=== PATIENT | male | born 1980 | race Caucasian/White ===

== ENCOUNTER 2017-05-18 20:56 | Emergency (ER) | payer OTHER ==
[~2017-05-18] VITALS: Ht 170.2 cm; Wt 118.6 kg
[~2017-05-18 20:56] MED LIST: URC10 PO
[2017-05-18 21:00] VITALS: TEMP 36.7; Ht 170.2 cm; Wt 118.6 kg
[2017-05-18 21:30] LABS: BASO % 0.4 %; BASO ABS # 0.02 K/uL (0-0.2); COMPLETE YES; HEMATOCRIT 45.8 % (42-52); IG% 0.4 %; LYMPH % 25.5 %; LYMPH ABS # 1.41 K/uL (1.2-3.4); MEAN CELL VOLUME 85.6 fL (80-100); MEAN CORPUSCULAR HEMOGLOBIN 29.9 pg (25-34); MEAN CORPUSCULAR HGB CONC 34.9 g/dl (32-36); MEAN PLATELET VOLUME 12.1 fL (7.4-10.4); MONO % 5.8 %; NEUT % 65.9 %; PLATELET COUNT 158 K/uL (130-400); RED BLOOD COUNT 5.35 M/uL (4.7-6.1); WHITE BLOOD COUNT 5.53 K/uL (4.8-10.8)
[2017-05-18] MEDS ORDERED: SODIUM CHLORIDE 0.9% 1000ML 1,000 ML IV STA ×2 (21:35)
[2017-05-18 21:59] LABS: CALCIUM 8.6 mg/dl (8.5-10.1); CREATININE 0.89 mg/dl (0.60-1.40); MAGNESIUM 1.8 mg/dl (1.8-2.4); POTASSIUM 3.5 mmol/L (3.5-5.1)
[2017-05-18 22:10] LABS: ALB/GLOB RATIO 1.2 (0.9-2); PHOSPHORUS 2.6 mg/dl (2.5-4.9); THYROID STIMULATING HORMONE 2.57 uIu/ml (0.300-4.500)
--- NOTE | 2017-05-18 22:10 | DIAGNOSTIC IMAGING REPORT ---
HEAD WITHOUT CONTRAST (CT) CLINICAL HISTORY: 36 years-old Male with head injury, poss seizure. TECHNIQUE: Multiple axial CT images of the head were obtained without contrast. A dose lowering technique was utilized adhering to the principles of ALARA. CT DOSE: 638.56 mGycm COMPARISON: None. FINDINGS: No acute intracranial hemorrhage, midline shift, mass, large territorial ischemia or abnormal extra-axial collection. The calvarium is intact. The paranasal sinuses, mastoid air cells, and middle ear cavities are clear. IMPRESSION: No acute intracranial abnormality. The above report was generated using voice recognition software. It may contain grammatical, syntax or spelling errors. Electronically signed by: Calvin Keith M.D. 05/18/2017 10:09 PM Dictated Date/Time: 05/18/2017 10:06 PM
[2017-05-18 22:54] LABS: LYME DISEASE AB IGG NEG (NEG); LYME DISEASE AB IGM NEG (NEG)
[2017-05-18 23:26] LABS: BENZODIAZEPINE, URINE NEG (NEG); COCAINE,URINE NEG (NEG); PHENCYCLIDINE, URINE NEG (NEG)
[2017-05-18 23:53] VITALS: BP 130/76; PULSE 88; O2SAT 94
--- NOTE | 2017-05-19 04:57 | EMERGENCY ROOM VISIT NOTE ---
History First contact with patient: 21:23 Chief Complaint: SEIZURE Stated Complaint: SEIZURE Nursing Triage Summary: Pt's girlfriend reports pt "took a seizure" in her car, vomiting, head hit the dashboard. Pt does not remember the incident. Happened around 1900, Lasted about 1 minute. denies hx of seizures. pt reports feeling fatigued and bloated. denies pain History of Present Illness The patient is a 36 year old male who presents to the Emergency Room with complaints of feeling fatigued and weak with lack and food for the past week who tonight felt nauseous after eating dinner and stromboli while in the car while his girlfriend was driving and then felt lightheaded like he is going to pass out. The girlfriend pulled the car over and he vomited outside and states he had a brief episode of not being able to recall anything. He then felt quite weak and lightheaded for a few more minutes and then was feeling much better and just felt weak. No history of similar symptoms in the past. 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 Patient states he has not been sleeping well. He has not informed his family care doctor. He currently does not have when either. Patient denies chest pain , abdominal pain, fevers, recent illness, diarrhea, history of seizures, localized weakness. Patient states when he passed out in the car he hit his head. No neck pain. Review of Systems See HPI for pertinent positives & negatives. A total of 10 systems reviewed and were otherwise negative. Past Medical/Surgical History Medical Problems: (1) Chronic abdominal pain (2) Renal colic on left side Family History Diabetes mellitus Social History Smoking Status: Former Smoker Alcohol Use: none Drug Use: none Marital Status: in relationship Housing Status: lives with family Occupation Status: employed Current/Historical Medications No Active Prescriptions or Reported Meds Physical Exam Vital Signs Date Time Temp Pulse Resp B/P (MAP) Pulse Ox O2 Delivery O2 Flow Rate FiO2 05/18/17 23:53 88 21 130/76 94 05/18/17 21:31 90 05/18/17 21:00 36.7 92 18 135/83 95 Room Air Physical Exam VITALS: Vitals are noted on the nurse's note and reviewed by myself. Vital signs stable. GENERAL: White male answering questions appropriately, in no acute distress, nondiaphoretic, well-developed well-nourished. SKIN: The skin was without rashes, erythema, edema, or bruising. There is no tenting of the skin. Capillary reflex less than 2 seconds. HEAD: Normocephalic atraumatic. EARS: External auditory canals clear, tympanic membranes pearly pimentel without erythema or effusion bilaterally. EYES: Pupils equal round and reactive to light and accommodation. Conjunctivae without injection, sclerae without icterus. Extraocular movements intact. NOSE: Patent, turbinates without inflammation or discharge. MOUTH: Mucous membranes moist. Pharynx without erythema or exudate. Uvula midline. Airway patent. Tongue does not deviate. NECK: Supple without nuchal rigidity. No lymphadenopathy. No thyromegaly. Cervical spine is nontender. No JVD. HEART: Regular rate and rhythm without murmurs gallops or rubs. LUNGS: Clear to auscultation bilaterally without wheezes, rales or rhonchi. No dullness to percussion. No retractions or accessory muscle use. ABDOMEN: Positive bowel sounds x 4. Normal tympanic percussion. Soft, nontender, without masses or organomegaly. Gongora sign negative. No guarding or rebound tenderness. MUSCULOSKELETAL: No muscle atrophy, erythema, or edema noted. NEURO: Patient was alert and oriented to person place and time. Normal sensation to light and sharp touch. No focal neurological deficits. Cranial nerves II through XII grossly intact. No pronator drift. Cerebellar exam intact. Medical Decision & Procedures Laboratory Results 05/18/17 21:17 Red Blood Count 5.35, Mean Corpuscular Volume 85.6, Mean Corpuscular Hemoglobin 29.9, Mean Corpuscular Hemoglobin Concent 34.9, Mean Platelet Volume 12.1, Neutrophils (%) (Auto) 65.9, Lymphocytes (%) (Auto) 25.5, Monocytes (%) (Auto) 5.8, Eosinophils (%) (Auto) 2.0, Basophils (%) (Auto) 0.4, Neutrophils # (Auto) 3.65, Lymphocytes # (Auto) 1.41, Monocytes # (Auto) 0.32, Eosinophils # (Auto) 0.11, Basophils # (Auto) 0.02 05/18/17 21:17 Test 05/18/17 21:17 05/18/17 22:22 White Blood Count 5.53 K/uL (4.8-10.8) Red Blood Count 5.35 M/uL (4.7-6.1) Hemoglobin 16.0 g/dL (14.0-18.0) Hematocrit 45.8 % (42-52) Mean Corpuscular Volume 85.6 fL (80-100) Mean Corpuscular Hemoglobin 29.9 pg (25-34) Mean Corpuscular Hemoglobin Concent 34.9 g/dl (32-36) Platelet Count 158 K/uL (130-400) Mean Platelet Volume 12.1 fL (7.4-10.4) Neutrophils (%) (Auto) 65.9 % Lymphocytes (%) (Auto) 25.5 % Monocytes (%) (Auto) 5.8 % Eosinophils (%) (Auto) 2.0 % Basophils (%) (Auto) 0.4 % Neutrophils # (Auto) 3.65 K/uL (1.4-6.5) Lymphocytes # (Auto) 1.41 K/uL (1.2-3.4) Monocytes # (Auto) 0.32 K/uL (0.11-0.59) Eosinophils # (Auto) 0.11 K/uL (0-0.5) Basophils # (Auto) 0.02 K/uL (0-0.2) RDW Standard Deviation 41.0 fL (36.4-46.3) RDW Coefficient of Variation 13.2 % (11.5-14.5) Immature Granulocyte % (Auto) 0.4 % Immature Granulocyte # (Auto) 0.02 K/uL (0.00-0.02) Anion Gap 10.0 mmol/L (3-11) Est Creatinine Clear Calc Drug Dose 140.0 ml/min Estimated GFR () 126.6 Estimated GFR (Non- 109.2 BUN/Creatinine Ratio 13.0 (10-20) Calcium Level 8.6 mg/dl (8.5-10.1) Phosphorus Level 2.6 mg/dl (2.5-4.9) Magnesium Level 1.8 mg/dl (1.8-2.4) Total Bilirubin 0.4 mg/dl (0.2-1) Aspartate Amino Transf (AST/SGOT) 23 U/L (15-37) Alanine Aminotransferase (ALT/SGPT) 36 U/L (12-78) Alkaline Phosphatase 99 U/L (45-117) Total Protein 7.1 gm/dl (6.4-8.2) Albumin 3.8 gm/dl (3.4-5.0) Globulin 3.3 gm/dl (2.5-4.0) Albumin/Globulin Ratio 1.2 (0.9-2) Thyroid Stimulating Hormone (TSH) 2.570 uIu/ml (0.300-4.500) Lyme Disease IgG Antibody NEG (NEG) Lyme Disease IgM Antibody NEG (NEG) Urine Opiates Screen NEG (NEG) Urine Methadone, Qualitative NEG (NEG) Urine Barbiturates NEG (NEG) Urine Phencyclidine (PCP) Level NEG (NEG) Ur Amphetamine/Methamphetamine NEG (NEG) MDMA (Ecstasy) Screen NEG (NEG) Urine Benzodiazepines Screen NEG (NEG) Urine Cocaine Metabolite NEG (NEG) Urine Marijuana (THC) NEG (NEG) Medications Administered Medications (Trade) Dose Ordered Sig/Vijaya Route Start Time Stop Time Status Last Admin Dose Admin Sodium Chloride 1,000 ml @ 999 mls/hr Q1H1M STAT IV 05/18/17 21:35 05/18/17 22:35 DC 05/18/17 21:35 999 MLS/HR ED Course Prior records/ancillary studies reviewed. Triage Nursing notes reviewed. Additional history obtained from friends The patient's history was concerning for syncope. Differential diagnosis: Etiologies such as vasovagal event, infection, hypoglycemia, electrolyte abnormalities, cardiac sources, intracerebral event, toxicologic, neurologic, as well as others were entertained. Physical examination: Patient is alert, interactive and answering questions appropriately ER treatment provided: IV hydration with normal saline On reassessment the patient felt better. Diagnostics interpretation by me: ECG: Normal sinus, no acute ST-T wave changes, right bundle branch block, rate of 91. Impression right bundle branch block sinus rhythm interpreted by myself The labs revealed no worrisome leukocytosis or electrolyte abnormality Imaging studies: Head CT negative This appears to be consistent with near syncope with vomiting who is been fatigued for a few weeks now. 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 This could be his cause of his fatigued plus he might also have sleep apnea per the concerns of his girlfriend. Patient got nauseous and then nearly passed out and vomited. It does not appear that he had a seizure. He was not postictal. He was well- appearing. He was advised follow-up family care in a few days or here in the ER sooner for fevers, chest pains, difficulty breathing, weakness, worsening signs or symptoms or as needed. By the evaluation outlined above emergent etiologies such as infection, hypoglycemia, electrolyte abnormalities, cardiac sources, intracerebral event, toxicologic, neurologic,as well as others were deemed relatively unlikely. The pt informed about the findings as listed above. All questions were answered and pleased with the treatment. Return instructions were outlined and the patient was discharged in stable condition. Referral: The patient was referred back to their primary care physician for follow-up in 2 to 3 days for a recheck of the current condition. Case reviewed with my attending. Medical Decision As above Medication Reconcilliation Current Medication List: was personally reviewed by me Blood Pressure Screening Patient's blood pressure: Normal blood pressure Impression Primary Impression: Near syncope Additional Impression: Vomiting Departure Information Dispostion Home / Self-Care Condition GOOD Prescriptions No Active Prescriptions or Reported Meds Referrals No Doctor, Assigned (PCP) Patient Instructions [facility] Problem Qualifiers
== END 2017-05-18 23:54 | disposition home or self-care (01) ==
LOC: C.EDB 20:57
DX: R55 Syncope and collapse (principal); R11.10 Vomiting, unspecified; Z87.891 Personal history of nicotine dependence; Z83.3 Family history of diabetes mellitus

== ENCOUNTER 2021-06-23 16:14 | Observation (INO) ==
[2021-06-23] MEDS ORDERED: fentaNYL citrate 100 MCG/2 ML VIAL ONE ×3 (16:16→19:12)
[2021-06-23] MEDS ORDERED: KETAMINE HCL INJ 50 MG/ML 10 ML VIAL ONE (16:18)
[2021-06-23] MEDS ORDERED: PROPOFOL IV EMULSION 10 MG/ML 20 ML VIAL IV ONE ×2 (16:18→18:17)
[2021-06-23] MEDS ORDERED: SODIUM CHLORIDE 0.9% 500 ML IV STA (16:19)
[2021-06-23] MEDS ORDERED: DIPHTHERIA/TETANUS/PERTUSSIS 0.5 ML SYR/VIAL IM ONE (16:20)
[2021-06-23] MEDS ORDERED: ceFAZolin 3,000 MG in DEXTROSE 5% 50 ML IV STA (16:20)
--- NOTE | 2021-06-23 16:31 | XRay Report ---
XR ankle RT 2V CLINICAL HISTORY: Right ankle injury and pain. COMPARISON STUDY: None. FINDINGS: Bimalleolar right ankle fracture with associated lateral dislocation. The talus is rotated lateral to the distal fibula. There is diffuse soft tissue swelling. IMPRESSION: Bimalleolar right ankle fracture with an associated lateral dislocation at the tibiotala r joint. ACT 112: Negative or not required by law. Electronically signed by: Miguel Singleton M.D. 06/23/2021 4:30 PM
[2021-06-23] MEDS ORDERED: fentaNYL citrate 100 MCG/2 ML VIAL IV PRN (16:45)
--- NOTE | 2021-06-23 16:53 | Emergency Department Note ---
Impression & Plan Open trimalleolar fracture, Open fracture dislocation of ankle joint ED Provider Note NAME: DAVID BEAN AGE: 41 SEX: M : 1980 ARRIVES VIA: Ambulance INFORMANT: Patient, EMS personnel ED PROVIDER(S): Candido Palomo DO CHIEF COMPLAINT: Leg injury HPI: The patient is a 41-year-old male who presented to the emergency department by ambulance for an evaluation of leg injury. The patient was helping moving a refrigerator. Refrigerator slipped down some stairs and landed on his right leg. The refrigerator needed to be removed from his leg. Significant amount of spoiled food was still in the refrigerator and did get onto his leg. The patient called 911 and was brought to the emergency department via ALS. The patient received fentanyl prior to arrival. The patient has a history of diabetes as well as peripheral neuropathy. The patient denies having any nausea or vomiting. He denies having any chest pain. He did not strike his head or lose consciousness. The patient denies having any back pain. He is unsure of his tetanus immunization status. ROS: See above HPI for pertinent positives & negatives. A total of 10 systems reviewed and were otherwise negative. PAST MEDICAL HISTORY: See Below PAST SURGICAL HISTORY: See Below FAMILY HISTORY: See Below SOCIAL HISTORY: See Below HOME MEDICATIONS: See Below ALLERGIES: See Below VITALS: See Below PHYSICAL EXAMINATION: GENERAL: The patient is awake and alert. The patient is very anxious appearing appears uncomfortable. EYES: The conjunctivae are clear. The pupils are round and reactive. EARS, NOSE, MOUTH AND THROAT: The nose is without any evidence of any deformity. NECK: The neck is nontender and supple. RESPIRATORY: Normal respiratory effort is noted there is no evidence of wheezing rhonchi or rales CARDIOVASCULAR: Regular rate and rhythm noted there no murmurs rubs or gallops normal S1 normal S2. GASTROINTESTINAL: The abdomen is soft. Abdomen is nontender. BACK: No midline tenderness or or step-off noted range of motion in flexion extension as well as rotation no signs of muscle spasm noted MUSCULOSKELETAL/EXTREMITIES: There is significant deformity of the right ankle. There is tibial deviation of the foot. Pulses are symmetric in both feet. Capillary refill symmetric in both feet. SKIN: There is no obvious evidence of any rash. There is an open area on the lateral malleolus. Active bleeding was noted. NEUROLOGIC: Patient is awake alert and oriented x3. MEDICAL DECISION MAKING: The patient is a 41-year-old male who presented to the emergency department by ambulance after a significant fracture dislocation of his right ankle. The patient had a very large heavy object land onto his ankle. There appeared to be some degree of contamination of the area. We identified the patient is a good candidate for emergency sedation for cleaning as well as attempted reduction. The patient had x-rays which did reveal significant fracture dislocation. He was treated with pain medication but then also treated with sedation for right lower extremity reduction and splinting. The patient was reevaluated multiple times. Post reduction x-rays showed improved alignment but not anatomic. I discussed this case with the on-call orthopedic physician. They evaluated the patient in the emergency department and felt that he would be a better candidate for open internal reduction. The patient was treated with IV antibiotics as well as update of his tetanus immunization. The wound was cleaned out thoroughly using the pulse gun with normal saline. Triage Nursing notes reviewed. Prior medical records reviewed Vital Signs: reviewed and remarkable for elevated blood pressure. Differential diagnosis: Fracture, subluxation, dislocation, contusion, ligamentous injury, neurovascular, compartment syndrome, rhabdomyolysis, as well as other pathologies. ER treatment provided: See below Diagnostics interpreted by me: ECG: EKG was obtained in the emergency department. My interpretation is sinus tachycardia 101 bpm. There were no PVCs. Right bundle branch block pattern was noted. This was compared to a tracing from May 182016. The QRS duration has prolonged otherwise no significant changes were noted. Cardiac Monitoring: An order was placed for continuous cardiac monitoring. The monitor shows a rate of 102 bpm with sinus tachycardia rhythm. Laboratory studies: As stated above and show below. Imaging studies: See below Consultation(s): [id number]: I discussed this case with Dr. Dalton who is on for orthopedics. He will evaluate the x-rays and call me back. ED COURSE: Procedures: Procedural Sedation Indication right ankle open fracture dislocation. Total time: 17 minutes. Written consent was obtained after the risks and benefits were explained to the patient, including, but not limited to aspiration, allergic reaction, breathing difficulties, cardiac complications, vomiting, pain, event recall, bleeding, and/or infection. Pre-sedation examination and paperwork completed. The patient was on 100% oxygen via NRB prior to the procedure. Continous end tidal CO2 monitoring, pulse oximetry, and cardiac monitoring were utilized. Suction, airway equipment, medications, respiratory equipment, and appropriate personnel were prepared prior to the initiation of the procedure. A time out was taken. Sedation was achieved utilizing propofol and ketamine. Please see documentation for complete dosages. After I observed the patient had reached the appropriate level of sedation the main procedure was performed without complication. Sedation was discontinued and the monitoring continued. The patient recovered quickly from the effects of the medication without complication or adverse event. Reduction and splint placement to right lower extremity Indication open fracture dislocation of the right ankle The patient was consented for reduction of the right ankle. After the patient's sedation was adequate the right knee was brought into flexion. Traction was placed on the right ankle with some reduction noted of the open fracture disl ocation. The wound was cleaned using the normal saline pulse gun. A bulky dressing was placed as well as a posterior and sugar tong splint to the area. Capillary refill was brisk. The patient tolerated procedure well. Past Med/Surg History Medical History Alcohol abuse GERD (gastroesophageal reflux disease) HLD (hyperlipidemia) TG 0, TC 301 in 06/2019 HTN (hypertension) Overweight (BMI 25.0-29.9) T2DM (type 2 diabetes mellitus) A1c 13.6% in 06/2019 Vitamin D deficiency 8.9 in 06/2019 Surgical History History of heart surgery VSD- age 3 S/P knee surgery Family History Father Cardiac disorder Mother No problems noted. Aunt Cardiac disorder Denies family history of Ovarian cancer Prostate cancer Myocardial infarction Breast cancer Colorectal cancer Social History Smoking Status: Never smoker Age Started Using Tobacco: 16; Age Quit Using Tobacco: 26; packs per day: 0.5; Hx Alcohol Use: Yes Alcohol type: beer, wine and hard liquor Hx Substance Use: No Preferred Language: Mohawk Communication Ability: Effective Visual Impairment: No Limitations Hearing Ability: Normal marital status: Single Current Living Situation: Alone current occupational status: employed current occupation: [employer] Feels Safe at Home: Yes Dental Care, Regularly: Yes Physical Activity Frequency: 3-4 Times per Week Allergies Allergies Allergy/AdvReac Type Severity Reaction Status Date / Time Sulfa (Sulfonamide Allergy Intermediate ITCHY/HOT Verified 06/23/21 17:31 Antibiotics) morphine AdvReac Intermediate Nausea Verified 06/23/21 17:31 Home Meds Home Medications Medication Instructions Recorded Confirmed atorvastatin 40 mg tablet 40 mg PO DAILY 06/23/21 06/23/21 gabapentin 100 mg capsule 100 mg PO TID 06/23/21 06/23/21 glipizide 5 mg tablet, extended 5 mg PO DAILY 06/23/21 06/23/21 release 24 hr insulin detemir U-100 100 unit/mL 45 unit SUBCUT DAILY 06/23/21 06/23/21 (3 mL) subcutaneous pen (Levemir FlexTouch U-100 Insulin) lisinopril 20 mg tablet 20 mg PO DAILY 06/23/21 06/23/21 Results & Data (ED) Vital Signs Vital Signs - 24 hr 06/23/21 16:26 06/23/21 16:28 06/23/21 16:30 Temperature 37 C Temperature Source Oral Pulse Rate 55 L 113 H 112 H Pulse Rate [Left Finger] Respiratory Rate 18 16 11 L Respiratory Effort / Characteristics Respiratory Depth Normal Respiratory Pattern Blood Pressure 165/112 H Blood Pressure [Right Arm] 165/112 H 149/106 H Blood Pressure Mean 129 Blood Pressure Mean [Right Arm] Blood Pressure Position [Right Arm] Pulse Oximetry 97 96 96 Oxygen Delivery Method Room Air Nasal Cannula Non-rebreather Oxygen Flow Rate 4 15 Sepsis Recent Fever Within 48 Hours No Sepsis New/Unexplained Change in Mental Status No Sepsis Action Taken by Nursing No Action Required End Tidal CO2 (18-54mmHg) 30 33 06/23/21 16:35 06/23/21 16:40 06/23/21 16:45 Temperature Temperature Source Pulse Rate 106 H 103 H 100 H Pulse Rate [Left Finger] Respiratory Rate 12 13 15 Respiratory Effort / Characteristics Respiratory Depth Respiratory Pattern Blood Pressure Blood Pressure [Right Arm] 160/106 H 143/91 H 140/105 H Blood Pressure Mean Blood Pressure Mean [Right Arm] Blood Pressure Position [Right Arm] Pulse Oximetry 99 99 100 Oxygen Delivery Method Non-rebreather Non-rebreather Non-rebreather Oxygen Flow Rate 15 15 15 Sepsis Recent Fever Within 48 Hours Sepsis New/Unexplained Change in Mental Status Sepsis Action Taken by Nursing End Tidal CO2 (18-54mmHg) 31 28 21 06/23/21 16:50 06/23/21 17:14 06/23/21 18:26 Temperature 36.8 C Temperature Source Oral Pulse Rate 102 H Pulse Rate [Left Finger] 109 H Respiratory Rate 16 20 Respiratory Effort / Characteristics Non-Labored Respiratory Depth Normal Respiratory Pattern Regular Blood Pressure Blood Pressure [Right Arm] 156/119 H 144/100 H Blood Pressure Mean Blood Pressure Mean [Right Arm] 114 Blood Pressure Position [Right Arm] Lying Pulse Oximetry 100 96 Oxygen Delivery Method Non-rebreather Room Air Room Air Oxygen Flow Rate 7 Sepsis Recent Fever Within 48 Hours Sepsis New/Unexplained Change in Mental Status Sepsis Action Taken by Nursing End Tidal CO2 (18-54mmHg) 23 Home Medications Current Medication List: was personally reviewed by me Laboratory Data Attestation: I reviewed the patient's lab results. Result diagrams: 06/23/21 21:22 06/23/21 21:22 Lab Results 06/23/21 06/23/21 06/23/21 Range/Units 16:48 16:48 18:31 POC Glucose 224 H (70-99) mg/dl COVID-19 Eval Order Covid19 at [facility] SARS-CoV-2 (PCR) NEGATIVE (Negative) Administered Medications Aspirin (Aspirin 81 Mg Ectab) 81 mg PO BID IVAN Stop: 07/23/21 21:29 Last Admin: 06/23/21 21:54 Dose: 81 mg Documented by: [id number] Gabapentin (Gabapentin 100 Mg Cap) 100 mg PO TID IVAN Stop: 07/23/21 21:29 Last Admin: 06/23/21 21:54 Dose: 100 mg Documented by: [id number] Sodium Chloride (Nss 1000ml) 1,000 mls @ 100 mls/hr IV .Q10H IVAN Stop: 07/23/21 21:29 Last Admin: 06/23/21 21:53 Dose: 100 mls/hr Documented by: [id number] Insulin Aspart (Insulin Aspart 100 Units/Ml 3 Ml Pen) 0 units SC ACHS [facility]; Protocol Stop: 07/23/21 21:44 Last Admin: 06/23/21 22:07 Dose: 6 units Documented by: [id number] Cosigned by: [id number] Insulin Aspart (Insulin Aspart 100 Units/Ml 3 Ml Pen) 0 units SC TODAY@0000,0400 [facility]; Protocol Stop: 06/24/21 04:01 Last Admin: 06/24/21 00:11 Dose: 4 units Documented by: [id number] Cosigned by: [id number] Insulin Detemir (Insulin Detemir Flexpen/Flex Touch 100 Units/Ml 3ml) 45 units SC [facility]; Protocol Stop: 07/23/21 21:44 Last Admin: 06/23/21 22:02 Dose: 45 units Documented by: [id number] Cosigned by: [id number] Ketorolac Tromethamine (Ketorolac 30 Mg/Ml Vial) 30 mg IV Q6H [facility] Stop: 06/28/21 21:59 Last Admin: 06/23/21 21:54 Dose: 30 mg Documented by: [id number] Ondansetron HCl (Ondansetron Inj 2 Mg/Ml 2 Ml Vial) 4 mg IV Q6H PRN PRN Reason: Nausea/Vomiting Stop: 07/23/21 21:10 Last Admin: 06/23/21 22:01 Dose: 4 mg Documented by: [id number] Discontinued Medications Bupivacaine HCl (Bupivacaine 0.25% 30 Ml Vial) Confirm Administered Dose 30 ml .ROUTE .STK-MED ONE Stop: 06/23/21 18:37 Last Admin: 06/23/21 19:36 Dose: 30 ml Documented by: [id number] Cefazolin Sodium (Cefazolin 250 Mg/Ml 1 Gm Vial) Confirm Administered Dose 3,000 mg .ROUTE .STK-MED ONE Stop: 06/23/21 18:16 Last Admin: 06/23/21 19:10 Dose: 1,250 mg Documented by: [id number] Diphtheria/Pertussis/Tetanus Vacc (Diphtheria/Tetanus/Pertussis 0.5 Ml Syr/Vial) 0.5 ml IM .ONCE ONE Stop: 06/23/21 16:21 Last Admin: 06/23/21 17:02 Dose: 0.5 ml Documented by: [id number] Epinephrine HCl (Epinephrine Inj 1 Mg/Ml Amp) Confirm Administered Dose 1 mg .ROUTE .STK-MED ONE Stop: 06/23/21 18:37 Last Admin: 06/23/21 19:36 Dose: 0.15 mg Documented by: [id number] Fentanyl Citrate (Fentanyl Citrate 100 Mcg/2 Ml Vial) Confirm Administered Dose 100 mcg .ROUTE .STK-MED ONE Stop: 06/23/21 16:17 Last Admin: 06/23/21 16:17 Dose: 100 mcg Documented by: [id number] Fentanyl Citrate (Fentanyl Citrate 100 Mcg/2 Ml Vial) 50 mcg IV Q5M PRN PRN Reason: PACU Use Only-Pain Stop: 06/24/21 02:32 Last Admin: 06/23/21 20:23 Dose: 50 mcg Documented by: [id number] Admin: 06/23/21 20:18 Dose: 50 mcg Documented by: [id number] Admin: 06/23/21 20:13 Dose: 50 mcg Documented by: [id number] Admin: 06/23/21 20:08 Dose: 50 mcg Documented by: [id number] Sodium Chloride (Nss) 500 mls @ 999 mls/hr IV .Q31M STA Stop: 06/23/21 16:49 Last Infusion: 06/23/21 17:40 Dose: 0 mls/hr Documented by: [id number] Admin: 06/23/21 17:05 Dose: 999 mls/hr Documented by: [id number] Cefazolin Sodium 3,000 mg/ (Dextrose) 72.5 mls @ 145 mls/hr IV NOW STA Stop: 06/23/21 16:49 Last Infusion: 06/23/21 17:23 Dose: 0 mls/hr Documented by: [id number] Admin: 06/23/21 16:54 Dose: 145 mls/hr Documented by: [id number] Cefazolin Sodium (Ancef 3000mg) 72.5 mls @ 130 mls/hr IV ONCE ONE Stop: 06/23/21 20:57 Last Infusion: 06/23/21 22:23 Dose: 0 mls/hr Documented by: [id number] Admin: 06/23/21 19:01 Dose: 130 mls/hr Documented by: [id number] Ketamine HCl (Ketamine Hcl Inj 50 Mg/Ml 10 Ml Vial) Confirm Administered Dose 500 mg .ROUTE .STK-MED ONE Stop: 06/23/21 16:19 Last Increment: 06/23/21 17:09 Dose: 30 mg Documented by: [id number] Propofol (Propofol Iv Emulsion 10 Mg/Ml 20 Ml Vial) Confirm Administered Dose 400 mg IV .STK-MED ONE Stop: 06/23/21 16:19 Last Admin: 06/23/21 17:09 Dose: 100 mg Documented by: [id number] Cosigned by: [id number] Imaging Data Radiologist's Impression: Ankle X-Ray 06/23/21 00:00 FL ankle RT min 3V RTN CLINICAL HISTORY: EXTERNAL FIXATION RT ANKLE COMPARISON STUDY: Right ankle 06/23/2021. FLUOROSCOPY TIME: 42 seconds. FINDINGS: 7 fluoroscopic spot images of the right ankle demonstrate internal fixation of the right ankle fracture/dislocation. There is near-anatomic alignment status post reduction. External fixator screws appear intact. IMPRESSION: Status post external fixation of a right ankle fracture/dislocation with near-anatomic alignment. ACT 112: Negative or not required by law. Electronically signed by: Miguel Singleton M.D. 06/23/2021 7:58 PM Ankle X-Ray 06/23/21 16:19 XR ankle RT 2V CLINICAL HISTORY: Right ankle injury and pain. COMPARISON STUDY: None. FINDINGS: Bimalleolar right ankle fracture with associated lateral dislocation. The talus is rotated lateral to the distal fibula. There is diffuse soft tissue swelling. IMPRESSION: Bimalleolar right ankle fracture with an associated lateral dislocation at the tibiotalar joint. ACT 112: Negative or not required by law. Electronically signed by: Miguel Singleton M.D. 06/23/2021 4:30 PM Chest X-Ray 06/23/21 16:45 XR chest 1V portable HISTORY: fall COMPARISON: Chest 07/16/2011. FINDINGS: There are low lung volumes. There are poststernotomy changes. The heart is mildly enlarged. No pneumothorax. No pleural effusions. No focal lung consolidations to suggest pneumonia. No evidence for pulmonary edema. No acute fractures identified. IMPRESSION: No significant change compared to the prior study. No acute process. Stable cardiomegaly. ACT 112: Negative or not required by law. Electronically signed by: Miguel Singleton M.D. 06/23/2021 5:23 PM Tibia/Fibula X-Ray 06/23/21 16:45 RIGHT TIBIA AND FIBULA 2 VIEWS CLINICAL HISTORY: Postreduction examination. FINDINGS: AP and crosstable lateral views of the right tibia and fibula are correlated with ankle radiographs performed earlier the same day 06/23/2021. The skeletal structures are well mineralized. The examination is performed through a cast, obscuring fine bony detail. Again seen are bilateral malleoli are frac tures of the right ankle joint. There is also vertically oriented and nondisplaced fracture through the posterior tibial plafond. There is persistent lateral displacement of the medial malleolus by 2.5 cm. There is also lateral displacement of the lateral malleolus. There is lateral subluxation of the talus at the tibiotalar articulation by approximately 2.3 cm. The tibiotalar articulation appears maintained in the AP plane. There is valgus angulation of the talus. Overlying soft tissue edema is noted. Foci of soft tissue gas are present above the lateral malleolus suggesting open fracture. A cutaneous defect the lateral ankle likely resents soft tissues injury/laceration. The proximal tibia and fibula are intact. The knee joint is grossly maintained. There are dorsal and plantar heel spurs. IMPRESSION: 1. Trimalleolar fracture of the right ankle as above. Alignment is improved status post external fixation with persistent lateral offset and angulation of the talus at the tibiotalar joint. 2. Foci of soft tissue gas and soft tissue injury are noted of the lateral malleolus. Correlate clinically for evidence of an open fracture. Electronically signed by: Les Nguyễn M.D. 06/23/2021 5:25 PM Discharge Plan Visit Data Chief Complaint: Ankle Pain Stated Complaint: Compound Fracture ED Provider: Candido Palomo Discharge Problem: Open trimalleolar fracture, Open fracture dislocation of ankle joint Patient Disposition: Admitted As Inpatient Condition: Good Discharge Instructions Interventions: ED Discharge Assessment Last Done: 06/23/21 18:20 Discharge Problem: Open trimalleolar fracture Qualifiers: Encounter type: initial encounter Open fracture type: open type I or II Laterality: right Qualified Code(s): S82.851B - Displaced trimalleolar fracture of right lower leg, initial encounter for open fracture type I or II Open fracture dislocation of ankle joint Qualifiers: Encounter type: initial encounter Open fracture type: open type I or II Laterality: right Qualified Code(s): S82.891B - Other fracture of right lower leg, initial encounter for open fracture type I or II
--- NOTE | 2021-06-23 16:56 | Emergency Department Note ---
Pre Sedation Assessment Vital Signs Temp Pulse Pulse Resp BP BP Pulse Ox 06/23/21 18:26 36.8 C 109 H 20 144/100 H 96 06/23/21 16:50 102 H 16 156/119 H 100 06/23/21 16:45 100 H 15 140/105 H 100 06/23/21 16:40 103 H 13 143/91 H 99 06/23/21 16:35 106 H 12 160/106 H 99 06/23/21 16:30 112 H 11 L 149/106 H 96 06/23/21 16:28 113 H 16 165/112 H 96 06/23/21 16:26 37 C 55 L 18 165/112 H 97 Cardiovascular RRR, no murmur, no edema + regular rate + S1 normal and + S2 normal; no murmur no JVD + capillary refill normal; no edema Respiratory normal respiratory effort, lungs clear to auscultation + respiratory effort normal; no respiratory distress and no retractions + clear to auscultation bilaterally Pre-Sedation Airway Assessment Smoking Status: Never smoker Hx Sleep Apnea: No Hx Difficult Intubation: No Short, Thick Neck: No Thyromental Distance: > or= 3.5 Finger Breadths Oral Cavity: no Loose Teeth or no Dentures Mallampati Class: I ASA: ASA2E NPO Status Date of Last Intake of Fluids: 06/23/21 Time of Last Intake of Fluids: : Date of Last Intake of Solid Food: 06/23/21 Time of Last Intake of Solid Foods: :30 Procedure Planning Contraindications for Sedation: none Current Medications Reviewed: Yes Notes The planned sedation has been discussed with the patient. Informed Consent was obtained. I have identified the patient, determined the appropriateness of sedation and have assessed the patient immediately prior to the procedure. All medicine(s) and interventions are by my order. : Open trimalleolar fracture Qualifiers: Encounter type: initial encounter Open fracture type: open type I or II Laterality: right Qualified Code(s): S82.851B - Displaced trimalleolar fracture of right lower leg, initial encounter for open fracture type I or II Open fracture dislocation of ankle joint Qualifiers: Encounter type: initial encounter Open fracture type: open type I or II Laterality: right Qualified Code(s): S82.891B - Other fracture of right lower leg, initial encounter for open fracture type I or II
--- NOTE | 2021-06-23 16:57 | Emergency Department Note ---
Post Sedation Assessment Vital Signs Temp Pulse Pulse Resp BP BP Pulse Ox 06/23/21 18:26 36.8 C 109 H 20 144/100 H 96 06/23/21 16:50 102 H 16 156/119 H 100 06/23/21 16:45 100 H 15 140/105 H 100 06/23/21 16:40 103 H 13 143/91 H 99 06/23/21 16:35 106 H 12 160/106 H 99 06/23/21 16:30 112 H 11 L 149/106 H 96 06/23/21 16:28 113 H 16 165/112 H 96 06/23/21 16:26 37 C 55 L 18 165/112 H 97 Recovery Score Activity: Moves 4 extremities Respiration: Deep Breath/Cough Circulation: +/-20% PreAnes Value Consciousness: Fully Awake Oxygen Saturation: > 92% On Room Air Discharge Sedation Level of Care: Phase I Unexpected Event: None Post Sedation Plan On clinical assessment, the patient appears to have tolerated the sedation without complications. Patient is recovering as anticipated. Patient will continue to be monitored by nursing and may be discharged when sedation discharge criteria are met per below protocol. Upon Completions of procedure up to 15 minutes continue every 5 minute vital signs and the P.A.R. score; then discharge to a Phase I or Fast Track to Phase II per the following guidelines: * Discharge Patient to appropriate Phase II area if PAR is 8 or greater or return to pre- procedure baseline. The post - procedure orders will be as directed. * If PAR score is less than 8 or not return to pre-procedure baseline then patient will follow Phase I monitoring till PAR is reached for Phase II. The Phase I may be done in procedure room or may call to secure a Phase I area. * If naloxone or flumazenil are used for reversal, hold in Phase I for contin ued monitoring from when last reversal dose was given for a minimum of 60 minutes or longer pending the nurse and/or physician discretion of patient condition before discharge to Phase II. Please call the Sedation Physician to re-evaluate and complete post-note for discharge to Phase II area. Do NOT discharge from procedure sedation or Phase 1 until post- sedation evaluation note is complete by procedure /sedation MD Sedation Discharge Instructions to be given to the patient at discharge to home. Sedation Data Time Out Team Members Agree on the Following: Correct Patient Team Agrees: Yes Sedation Times Sedation Start Date: 06/23/21 Sedation Start Time: 16:28 Sedation End Date: 06/23/21 Sedation End Time: 16:45 Total Sedation Time: 17 Procedure Times Procedure Start Time:: 16:30 Procedure End Time: 16:40 : Open trimalleolar fracture Qualifiers: Encounter type: initial encounter Open fracture type: open type I or II Laterality: right Qualified Code(s): S82.851B - Displaced trimalleolar fracture of right lower leg, initial encounter for open fracture type I or II Open fracture dislocation of ankle joint Qualifiers: Encounter type: initial encounter Open fracture type: open type I or II Laterality: right Qualified Code(s): S82.891B - Other fracture of right lower leg, initial encounter for open fracture type I or II
--- NOTE | 2021-06-23 17:24 | XRay Report ---
XR chest 1V portable HISTORY: fall COMPARISON: Chest 07/16/2011. FINDINGS: There are low lung volumes. There are poststernotomy changes. The heart is mildly enlarged. No pneumothorax. No pleural effusions. No focal lung consolidations to suggest pneumonia. No evidenc e for pulmonary edema. No acute fractures identified. IMPRESSION: No significant change compared to the prior study. No acute process. Stable cardiomegaly. ACT 112: Negative or not required by law. Electronically signed by: Miguel Singleton M.D. 06/23/2021 5:23 PM
--- NOTE | 2021-06-23 17:26 | XRay Report ---
RIGHT TIBIA AND FIBULA 2 VIEWS CLINICAL HISTORY: Postreduction examination. FINDINGS: AP and crosstable lateral views of the right tibia and fibula are correlated with ankle rad iographs performed earlier the same day 06/23/2021. The skeletal structures are well mineralized. The e xamination is performed through a cast, obscuring fine bony detail. Again seen are bilateral malleoli are fractures of the right ankle joint. There is also vertically oriented and nondisplaced fracture through the posterior tibial plafond. There is persistent lateral displacement of the medial malleolu s by 2.5 cm. There is also lateral displacement of the lateral malleolus. There is lateral subluxatio n of the talus at the tibiotalar articulation by approximately 2.3 cm. The tibiotalar articulation ap pears maintained in the AP plane. There is valgus angulation of the talus. Overlying soft tissue josh a is noted. Foci of soft tissue gas are present above the lateral malleolus suggesting open fracture. A cutaneous defect the lateral ankle likely resents soft tissues injury/laceration. The proximal tib ia and fibula are intact. The knee joint is grossly maintained. There are dorsal and plantar heel spu rs. IMPRESSION: 1. Trimalleolar fracture of the right ankle as above. Alignment is improved status post external fixa tion with persistent lateral offset and angulation of the talus at the tibiotalar joint. 2. Foci of soft tissue gas and soft tissue injury are noted of the lateral malleolus. Correlate clini yobany for evidence of an open fracture. Electronically signed by: Les Nguyễn M.D. 06/23/2021 5:25 PM
--- NOTE | 2021-06-23 18:10 | Anesthesiology Consultation ---
Date of Service June 23, 2021 Assessment & Plan (1) Encounter for pre-operative examination: History Surgery Operation Date: 06/23/21 19:00 Proposed Procedures p External Fixator Application Right Ankle(Right) - Marc Dalton DO Height/Weight Height: 5 ft 5 in Weight: 107 kg Allergies Allergy/AdvReac Type Severity Reaction Status Date / Time Sulfa (Sulfonamide Allergy Intermediate ITCHY/HOT Verified 06/23/21 17:31 Antibiotics) morphine AdvReac Intermediate Nausea Verified 06/23/21 17:31 Medications Home Medications Medication Instructions Recorded Confirmed Last Taken atorvastatin 40 mg tablet 40 mg PO DAILY 06/23/21 06/23/21 Unknown gabapentin 100 mg capsule 100 mg PO TID 06/23/21 06/23/21 Unknown glipizide 5 mg tablet, extended 5 mg PO DAILY 06/23/21 06/23/21 Unknown release 24 hr insulin detemir U-100 100 unit/mL 45 unit SUBCUT DAILY 06/23/21 06/23/21 Unknown (3 mL) subcutaneous pen (Levemir FlexTouch U-100 Insulin) lisinopril 20 mg tablet 20 mg PO DAILY 06/23/21 06/23/21 Unknown Past Medical History Medical History Alcohol abuse GERD (gastroesophageal reflux disease) HLD (hyperlipidemia) TG 0, TC 301 in 06/2019 HTN (hypertension) Overweight (BMI 25.0-29.9) T2DM (type 2 diabetes mellitus) A1c 13.6% in 06/2019 Vitamin D deficiency 8.9 in 06/2019 Past Family History Family History Father Cardiac disorder Mother No problems noted. Aunt Cardiac disorder Denies family history of Ovarian cancer Prostate cancer Myocardial infarction Breast cancer Colorectal cancer Past Surgical History Surgical History History of heart surgery VSD- age 3 S/P knee surgery Social History Smoking Status: Never smoker Hx Alcohol Use: Yes Alcohol type: beer, wine and hard liquor Hx Substance Use: No Physical Exam Vital Signs Last Vital Signs Temp 98.6 F 06/23/21 16:26 Pulse 102 H 06/23/21 16:50 Resp 16 06/23/21 16:50 BP 156/119 H 06/23/21 16:50 Pulse Ox 100 06/23/21 16:50 Testing Electrocardiogram Date: 06/23/21 Sinus tachycardia Right bundle branch block Inferior infarct (cited on or before 21-DEC-2013) Abnormal ECG When compared with ECG of 18-MAY-2017 21:11, QRS duration has increased Questionable change in initial forces of Inferior leads T wave inversion now evident in Anterior leads Chest X-Ray Date: 06/23/21 IMPRESSION: No significant change compared to the prior study. No acute process. Stable cardiomegaly.
--- NOTE | 2021-06-23 18:16 | History & Physical Report ---
Date of Service June 23, 2021 Assessment & Plan (1) Dislocation of ankle, right, open: I talked to the patient and his extensively at bedside. All the tertiary care centers in the surrounding area were full and not accepting patients. I felt it was rather urgent to do an irrigation debridement of the open wound and stabilize the ankle with an external fixator. He and his understood the risk, benefits, and alternatives to procedure and elected proceed. Questions were answered at bedside. The decision was made for surgery and consents were signed. I told him he is an increased risk due to his insulin-dependent diabetes and his history of alcohol. History of Present Illness Chief Complaint: Right ankle fracture with tibiotalar dislocation. Primary Care Provider: Brandi Woods DO Man is a 41-year-old male who was moving a refrigerator earlier today when he slipped and fell. He twisted his right ankle. He had severe pain and deformity of his right ankle. There was a large open wound. He was brought to the emergency room and x-rays demonstrated a right ankle fracture with a lateral tibiotalar dislocation. He was reduced and placed in a trauma splint. The postreduction radiograph still showed significant lateral subluxation. There was a large open wound. Orthopedics was consulted to evaluate and treat. Allergies Allergy/AdvReac Type Severity Reaction Status Date / Time Sulfa (Sulfonamide Allergy Intermediate ITCHY/HOT Verified 06/23/21 17:31 Antibiotics) morphine AdvReac Intermediate Nausea Verified 06/23/21 17:31 Home Medications Medication Instructions Recorded Confirmed Type atorvastatin 40 mg tablet 40 mg PO DAILY 06/23/21 06/23/21 History gabapentin 100 mg capsule 100 mg PO TID 06/23/21 06/23/21 History glipizide 5 mg tablet, extended 5 mg PO DAILY 06/23/21 06/23/21 History release 24 hr insulin detemir U-100 100 unit/mL 45 unit SUBCUT DAILY 06/23/21 06/23/21 History (3 mL) subcutaneous pen (Levemir FlexTouch U-100 Insulin) lisinopril 20 mg tablet 20 mg PO DAILY 06/23/21 06/23/21 History Past Med/Surg History Medical History Alcohol abuse GERD (gastroesophageal reflux disease) HLD (hyperlipidemia) TG 2049, TC 301 in 06/2019 HTN (hypertension) Overweight (BMI 25.0-29.9) T2DM (type 2 diabetes mellitus) A1c 13.6% in 06/2019 Vitamin D deficiency 8.9 in 06/2019 Surgical History History of heart surgery VSD- age 3 S/P knee surgery Family History Father Cardiac disorder Mother No problems noted. Aunt Cardiac disorder Denies family history of Ovarian cancer Prostate cancer Myocardial infarction Breast cancer Colorectal cancer Social History Smoking Status: Never smoker Age Started Using Tobacco: 16; Age Quit Using Tobacco: 26; packs per day: 0.5; Hx Alcohol Use: Yes Alcohol type: beer, wine and hard liquor Hx Substance Use: No Preferred Language: Vietnamese Communication Ability: Effective Visual Impairment: No Limitations Hearing Ability: Normal marital status: Single Current Living Situation: Alone current occupational status: employed current occupation: [employer] Feels Safe at Home: Yes Dental Care, Regularly: Yes Physical Activity Frequency: 3-4 Times per Week Review of Systems All systems reviewed & are unremarkable except as noted in HPI & below. Physical Exam On physical examination of the right ankle, he is in the trauma splint when I saw him. He has capillary refill of all his toes but his toes are little bit cold. The foot looks relatively well aligned.. Constitutional WD/WN, vitals as above Eyes PERRL, conjunctivae normal, anicteric sclerae ENMT external ear and nose normal, oropharynx normal Neck trachea midline, no thyromegaly Respiratory normal respiratory effort Cardiovascular RRR, no murmur, no edema Gastrointestinal (Abdomen) normal bowel sounds, soft, nontender, no hepatosplenomegaly Psychiatric A+Ox3, euthymic affect Results & Data Results & Data Laboratory Results . Diagnostic Findings Initial x-rays of the right ankle show a bimalleolar right ankle fracture with complete lateral tibiotalar dislocation. Postreduction x-rays still show significant lateral subluxation of the talus on the tibia.. PG Care Time/CCT Total # of Minutes Spent Total Time Spent with Patient: Total time spent is greater than 50% in coordination of care (as documented) at patient's floor/unit and/or counseling patient: Coding Level of Care Code 46574 Initial Inpt Care Lvl 3 (57 - DECISION FOR SURGERY) Diagnoses Dislocation of ankle, right, open S93.04XA; S91.001A
[2021-06-23] MEDS ORDERED: SUCCINYLCHOLINE 100MG/5ML SYR IV ONE (18:17)
[2021-06-23] MEDS ORDERED: LIDOCAINE 2% 2 ML VIAL/AMP(20MG/ML) INFIL ONE (18:17)
[2021-06-23] MEDS ORDERED: ROCURONIUM BROMIDE 10 MG/ML 5 ML VIAL IV ONE (18:17)
[2021-06-23] MEDS ORDERED: MIDAZOLAM HCL 1 MG/ML 2ML VIAL ONE (18:19)
[2021-06-23] MEDS ORDERED: ONDANSETRON INJ 2 MG/ML 2 ML VIAL IV PRN ×2 (18:32→21:11)
[2021-06-23] MEDS ORDERED: ATROPINE SULFATE 0.1 MG/ML 10ML SYR IV PRN (18:32)
[2021-06-23] MEDS ORDERED: ePHEDrine sulfate 50 MG/ML AMP IV PRN (18:32)
[2021-06-23] MEDS ORDERED: HYDROmorphone INJ 1 MG/ML SYRINGE IV PRN ×2 (18:32→21:11)
[2021-06-23] MEDS ORDERED: BUPIVACAINE 0.25% 30 ML VIAL ONE (18:36)
[2021-06-23] MEDS ORDERED: EPINEPHrine INJ 1 MG/ML AMP ONE (18:36)
[2021-06-23] MEDS ORDERED: NEOSTIGMINE METHYLSULFATE 1 MG/ML 10ML VIAL ONE (19:40)
[2021-06-23] MEDS ORDERED: GLYCOPYRROLATE 0.2 MG/ML VIAL ONE (19:40)
--- NOTE | 2021-06-23 19:59 | Fluoroscopy Report ---
FL ankle RT min 3V RTN CLINICAL HISTORY: EXTERNAL FIXATION RT ANKLE COMPARISON STUDY: Right ankle 06/23/2021. FLUOROSCOPY TIME: 42 seconds. FINDINGS: 7 fluoroscopic spot images of the right ankle demonstrate internal fixation of the right an kle fracture/dislocation. There is near-anatomic alignment status post reduction. External fixator sc rews appear intact. IMPRESSION: Status post external fixation of a right ankle fracture/dislocation with near-anatomic al ignment. ACT 112: Negative or not required by law. Electronically signed by: Miguel Singleton M.D. 06/23/2021 7:58 PM
[2021-06-23] MEDS: fentaNYL citrate 100 MCG/2 ML VIAL IV PRN ×4 (20:08→20:23)
--- NOTE | 2021-06-23 20:09 | Operative Report ---
PG Post Operative Report Pre & Post Diagnosis Operation Date: 06/23/21 19:00 Pre-Op Diagnosis: Right open bimalleolar ankle fracture with tibiotalar dislocation Post-Op Diagnosis: Right open bimalleolar ankle fracture with tibiotalar dislocation I identified the patient and participated in the time-out.: Yes Procedure Operation Date: 06/23/21 19:00 Actual Procedures p Right Ankle irrigation and debridement of open wound with external Fixator Application (Right) - Marc Dalton DO Surgeon Marc Dalton DO Entry Level Sales Associate None Estimated Blood Loss 10 Findings Consistent with Post-Op Diagnosis Specimens Wound cultures Complications none Disposition Disposition: Recovery Room Indications Man is a 41-year-old male who was moving a refrigerator earlier today when he twisted his ankle. He sustained an open bimalleolar ankle dislocation. He came to the emergency room. Orthopedics was consulted. We decided taken immediately to the operating room for irrigation debridement with application of external fixator. Description of Procedure On June 23 2021 Man was brought from the emergency room to the preoperative holding area. The operative extremity was identified and signed. He was given 2 g of Ancef. He was taken back the operating room and put under general anesthesia. He was transferred to the operating table. The splint was removed. The right ankle was then prepped and draped in sterile fashion. A timeout was done. The patient and the operative extremity was properly identified. A 3 cm curvilinear open wound was found lateral to the ankle. It had minimal soft tissue disruption. I was able to palpate my finger down to the fracture. This is a Gastilo 2 open fracture. A culture swab was obtained. The wound was irrigated with 3 L of normal saline with Ancef by pulse lavage. A debridement was done. The wound was once again pulse lavaged. The decision was made to do an application of an external fixator. 2 Schanz pins were placed along the tibial crest. A single calcaneal pin was then placed. Carbon fiber rods were then clamped to the pins. I was able to hold reduction under fluoroscopy and the construct was tightened. Final fluoroscopic images both AP and lateral showed anatomic alignment. The open wound was then closed with 3-0 nylon suture. Xeroform was placed around the pin sites. The leg was then wrapped with Kerlix and an Biju wrap. He was then extubated and transferred back to a hospital bed. He was taken to the postanesthesia care unit in stable condition. He tolerated the procedure well. I attest to the content of the Intraoperative Record and any orders documented therein. Any exceptions are noted below.
--- NOTE | 2021-06-23 20:26 | Anesthesiology Progress Note ---
Date of Service June 23, 2021 Anesthesia Post Procedure Vital Signs Vital Signs: Temp Pulse Pulse Pulse Resp BP BP 06/23/21 20:10 98 H 14 133/90 06/23/21 20:01 97.7 F 102 H 20 158/104 H 06/23/21 18:26 98.2 F 109 H 20 144/100 H 06/23/21 16:50 102 H 16 156/119 H 06/23/21 16:45 100 H 15 140/105 H 06/23/21 16:40 103 H 13 143/91 H 06/23/21 16:35 106 H 12 160/106 H 06/23/21 16:30 112 H 11 L 149/106 H 06/23/21 16:28 113 H 16 165/112 H 06/23/21 16:26 98.6 F 55 L 18 165/112 H Pulse Ox 06/23/21 20:10 92 06/23/21 20:01 97 06/23/21 18:26 96 06/23/21 16:50 100 06/23/21 16:45 100 06/23/21 16:40 99 06/23/21 16:35 99 06/23/21 16:30 96 06/23/21 16:28 96 06/23/21 16:26 97 Pain Intensity Right Ankle: Pain Intensity: 6 Transfer of Care Handoff Completed per policy Notes Mental Status: alert / awake / arousable and participated in evaluation Patient Amnestic to Procedure: Yes Nausea / Vomiting: adequately controlled Pain: adequately controlled Airway Patency, RR, SpO2: stable & adequate BP & HR: stable & adequate Hydration State: stable & adequate Anesthetic Complications: no major complications apparent and Pt Satisfied with anesthetic care
[2021-06-23] MEDS ORDERED: METOCLOPRAMIDE HCL INJ 5 MG/ML 2 ML VIAL IV PRN (21:11)
[2021-06-23] MEDS ORDERED: PHARMACY GLYCEMIC MGMT CONSULT PRN (21:11)
[2021-06-23] MEDS ORDERED: INSULIN DETEMIR FLEXPEN/FLEX TOUCH 100 UNITS/ML 3ML SC SCH (21:45)
[2021-06-23] MEDS ORDERED: GLUCOSE 10 TABS/TUBE PO PRN (21:45)
[2021-06-23] MEDS ORDERED: GLUCOSE 40% GEL 15 GM TUBE PO PRN (21:45)
[2021-06-23] MEDS ORDERED: GLUCAGON FOR INJ 1 MG VIAL IM PRN (21:45)
[2021-06-23] MEDS ORDERED: CARBOHYDRATES FOR HYPOGLYCEMIA PO PRN (21:45)
[2021-06-23] MEDS ORDERED: DEXTROSE 50% 50 ML SYRINGE IV PRN (21:45)
[2021-06-23 21:46] LABS: Basophils # (auto) 0.02 K/uL (0-0.2); Basophils % (auto) 0.2 %; Eosinophils # (auto) 0.02 K/uL (0-0.5); Eosinophils % (auto) 0.2 %; Hemoglobin 15.9 g/dL (14.0-18.0); Immature Granulocytes # (auto) 0.02 K/uL (0.00-0.02); Immature Granulocytes % (auto) 0.2 %; Lymphocytes # (auto) 1.51 K/uL (1.2-3.4); Lymphocytes % (auto) 13.2 %; Mean Corpuscular Hemoglobin 30.7 pg (25-34); Mean Corpuscular Hgb Conc 35.3 g/dL (32-36); Mean Corpuscular Volume 86.9 fL (80-100); Mean Platelet Volume 12.2 fL (7.4-10.4); Monocytes # (auto) 0.57 K/uL (0.11-0.59); Neutrophils # (auto) 9.27 K/uL (1.4-6.5); Neutrophils % (auto) 81.2 %; Platelet Count 182 K/uL (130-400); RDW Standard Deviation 38.2 fL (36.4-46.3); Red Blood Count 5.18 M/uL (4.7-6.1); White Blood Count 11.41 K/uL (4.8-10.8)
[2021-06-23 21:50] LABS: Partial Thromboplastin Ratio 0.8
[2021-06-23] MEDS: SODIUM CHLORIDE 0.9% 1000ML 1,000 ML IV SCH (21:53)
[2021-06-23] MEDS: KETOROLAC 30 MG/ML VIAL IV SCH (21:54)
[2021-06-23] MEDS: GABAPENTIN 100 MG CAP PO SCH (21:54)
[2021-06-23] MEDS: ASPIRIN 81 MG ECTAB PO SCH (21:54)
[2021-06-23 21:59] LABS: Alanine Aminotransferase 32 U/L (12-78); Albumin Level 3.5 gm/dl (3.4-5.0); Aspartate Aminotransferase 19 U/L (15-37); BUN Creatinine Ratio 12.8 (10-20); Blood Urea Nitrogen 10 mg/dl (7-18); Carbon Dioxide 22 mmol/L (21-32); Chloride 107 mmol/L (98-107); Creatinine Clr Calc Pharmacy 131.6 ml/min; Est GFR (African American) 131.1 ml/min; Est GFR (Non-African American) 113.1 ml/min; Glucose 243 mg/dl (70-99); Lipase 194 U/L (73-393); Potassium 3.4 mmol/L (3.5-5.1); Sodium 138 mmol/L (136-145)
[2021-06-23 22:04] LABS: Albumin Globulin Ratio 1.2 (0.9-2); Alkaline Phosphatase 103 U/L (45-117); Bilirubin,Total 0.5 mg/dl (0.2-1); Total Protein 6.5 gm/dl (6.4-8.2); Troponin I < 0.015 ng/ml (0-0.045)
[2021-06-23] MEDS: INSULIN ASPART 100 UNITS/ML 3 ML PEN SC SCH (22:07)
[2021-06-24] MEDS: INSULIN ASPART 100 UNITS/ML 3 ML PEN SC SCH ×4 (00:11→12:43)
[2021-06-24] MEDS: ceFAZolin 2000MG 2,000 MG/15 ML SYR IV SCH ×2 (04:00→12:01)
[2021-06-24] MEDS: KETOROLAC 30 MG/ML VIAL IV SCH ×2 (04:00→08:57)
--- NOTE | 2021-06-24 04:17 | Pharmacy Report ---
Pharmacy Glycemic Short Note 2 - Date of Service June 24, 2021 - Glycemic Short BSG Results (Last 24 hours): 06/23/21 06/23/21 06/23/21 18:31 20:03 21:22 Glucose 243 H POC Glucose 224 H 229 H 06/23/21 06/24/21 21:51 00:06 Glucose POC Glucose 257 H 219 H OUTPATIENT ANTIDIABETIC REGIMEN: * Levemir 45 units SC Daily * Glipizide ER 5 mg PO Daily * HbA1c pending ASSESSMENT: * 41 yo M admitted following right ankle surgery today. Pharmacy has been consulted postoperatively to assist with inpatient glycemic management. Patient is an uncontrolled type 2 diabetic on basal insulin and glipizide as an outpatient. Most recent HbA1c was 10% in March 2021. * Preoperative BSG was 224 mg/dL. Postoperative BSG was 229 mg/dL. Confirmed that patient did not take insulin or glipizide prior to admission today. No perioperatively steroids were administered. * Will target a more stringent BSG goal range to promote wound healing and prevent postoperative infection. * Will start home dose of Levemir this evening to see how patient responds. Likely that he will require more basal than this, especially if he is basal deficient. * Will start Novolog based on weight and stress of three for the immediate postoperative period given likelihood of stress-induced hyperglycemia. Will add overnight checks for this first evening. * Will order a HbA1c for tomorrow morning. PLAN FOR INPATIENT GLYCEMIC CONTROL: * Hold outpatient oral diabetes medications * Basal insulin * Levemir 45 units SC x 1 * Bolus insulin * NovoLog per scale ACHS or Q6hrs while NPO * Goal Range: Low 110 mg/dL - High 140 mg/dL * Correction Factor: 20 mg/dL/unit * Nutritional / Prandial insulin per carb ratio of 1 unit per 6 grams CHO consumed PLAN FOR DISCHARGE: * To be determined
[2021-06-24] MEDS: SODIUM CHLORIDE 0.9% 1000ML 1,000 ML IV SCH (06:35)
--- NOTE | 2021-06-24 06:48 | Orthopedic Progress Note ---
Date of Service June 24, 2021 Assessment & Plan (1) Dislocation of ankle, right, open: Overall is doing well. Is not having too much pain with the ice on his ankle and his ankle elevated. He is on aspirin for DVT prophylaxis. He will be nonweightbearing on the right ankle for now. His initial Gram stain has shown no organisms and no white blood cells. He can be discharged home later today after he is done his 24-hour regimen of Ancef. I will discharge him to home on aspirin for DVT prophylaxis, Keflex for antimicrobial prophylaxis, and Percocet for pain. He was told to leave the dressing on the right leg clean and dry. He can follow-up in the office on Monday of next week. He will be seen by physical therapy today for crutch training before discharge. Barbara Conway was seen and examined at bedside this morning. Overall is doing fairly well. He says the ankle sore but not too bad. He was able to get some sleep last night. He has no complaints.. Review of Systems All systems reviewed & are unremarkable except as noted in HPI & below. Physical Exam On physical examination of the right ankle, the dressing is clean and dry. He has active motion of his toes. He has sensation distally. There is no bleeding through the bandages.. Results & Data Results & Data Laboratory Results . Diagnostic Findings . PG Care Time/CCT Total # of Minutes Spent Total Time Spent with Patient: Total time spent is greater than 50% in coordination of care (as documented) at patient's floor/unit and/or counseling patient: Coding Level of Care Code 94964 Post Operative Follow-Up Diagnoses Dislocation of ankle, right, open S93.04XA; S91.001A
--- NOTE | 2021-06-24 06:50 | Discharge Summary ---
Date of Service June 24, 2021 Admission HPI (Per Admitting) Man is a 41-year-old male who was moving a refrigerator earlier today when he slipped and fell. He twisted his right ankle. He had severe pain and deformity of his right ankle. There was a large open wound. He was brought to the emergency room and x-rays demonstrated a right ankle fracture with a lateral tibiotalar dislocation. He was reduced and placed in a trauma splint. The postreduction radiograph still showed significant lateral subluxation. There was a large open wound. Orthopedics was consulted to evaluate and treat. Admission Exam (Per Admitting) On physical examination of the right ankle, he is in the trauma splint when I saw him. He has capillary refill of all his toes but his toes are little bit cold. The foot looks relatively well aligned.. Principal Diagnosis Same as "Discharge Diagnosis" noted below under Discharge Instructions. Discharge Exam On physical examination of the right ankle, the dressing is clean and dry. He has active motion of his toes. He has sensation distally. There is no bleeding through the bandages.. Discharge Data Consultations 06/23/21 17:43 Consult Orthopedic Surgery Stat Procedures Performed Operation Date: 06/23/21 19:00 Actual Procedures p Right Ankle External Fixator Application (Right) - Marc Dalton DO Ordered Studies 06/23/21 FL ankle RT min 3V RTN Routine Hospital Course (1) Dislocation of ankle, right, open: On June 23 Man arrived at [facility] emergency room with an open dislocated right bimalleolar ankle fracture. He was taken immediately to the operating room for irrigation debridement with application of external fixator. He was then transferred to the general orthopedic floors. His hospital course was uneventful. On postop day #1 his vital signs were stable and his pain was well controlled. He was seen by physical therapy and was compliant with nonweightbearing instructions. He finished 24 hours of IV Ancef for the open wound that he had. He was on aspirin for DVT prophylaxis. He was then discharged to home with instructions to follow-up with orthopedics on Monday. PG Care Time/CCT Total # of Minutes Spent Total Time Spent with Patient: Total time spent is greater than 50% in coordination of care (as documented) at patient's floor/unit and/or counseling patient: Discharge Plan Discharge Items Patient Disposition: Home - Home Health Services Reason For Visit: RIGHT ANKLE FRACTURE Discharge Diagnosis: Status post right ankle fracture Condition on Discharge: Good Activity: As commented below Non-emergency contact: Surgeon Call non-emergency contact if: your wound has increased redness and your wound has increased drainage Follow-up/Referrals: Brandi Woods DO [Primary Care Provider] - Diet: Regular Addtl Attending Provider Instructions: ORTHOPEDIC INSTRUCTIONS Activity Recommendations: No weightbearing on the right ankle Keep the right ankle elevated and keep ice on it as much as possible Medications: Percocet as needed for pain. Take aspirin 81 mg twice a day for 6 weeks to prevent blood clots Keflex 500 mg 3 times a day for 7 days as a prophylactic antibiotic Dressing Care: Leave the dressing intact until follow-up in the office on Monday Showering: Do not get the right leg wet Things To Watch For: 3. Fever above 102 degrees Fahrenheit. 4. Unusual chest pain or shortness of breath. 5. Call [facility] at with any of the above problems Follow-Up Visit: Follow-up with Dr. Dalton next Monday. Call the office to make the appointment. If you have any questions call Pending Studies at Discharge: No Stand-Alone Forms: My [facility] 24x[employer] Learning, Smoking Cessation Medications and DC Order Prescriptions: New aspirin 81 mg Tablet,Delayed Release (Dr/Ec) 81 mg PO BID 42 Days Qty: 84 RF: 0 oxycodone-acetaminophen 5-325 mg tablet 1 tab PO Q6H PRN (Reason: pain) Qty: 30 RF: 0 cephalexin 500 mg capsule 500 mg PO Q8H 7 Days Qty: 21 RF: 0 Continued atorvastatin 40 mg tablet 40 mg PO DAILY RF: 0 lisinopril 20 mg tablet 20 mg PO DAILY RF: 0 glipizide 5 mg tablet extended release 24hr 5 mg PO DAILY RF: 0 gabapentin 100 mg capsule 100 mg PO TID RF: 0 Levemir FlexTouch U-100 Insuln 100 unit/mL (3 mL) insulin pen 45 unit SUBCUT DAILY RF: 0 Discharge Orders: Discharge Order (Routine); Ordered 06/24/21 Ordered By: Marc Dalton Admission Data Admit Date/Time: 06/23/21 19:59 Attending Provider: Marc Dalton Admit Provider: Marc Dalton Primary Care Provider: Brandi Woods Other Providers: Marc Dalton
[2021-06-24 07:52] LABS: Estimated Average Glucose 206 mg/dl; Hemoglobin A1C 8.8 % (4.5-5.6)
[2021-06-24 08:00] VITALS: O2SAT 96
[2021-06-24] MEDS: GABAPENTIN 100 MG CAP PO SCH ×2 (08:23→12:44)
[2021-06-24] MEDS: oxyCODONE/ACETAMINOPHEN 5mg/325mg TAB PO PRN ×2 (08:27→14:03)
[2021-06-24] MEDS: ASPIRIN 81 MG ECTAB PO SCH (08:57)
[2021-06-24] MEDS ORDERED: lisinopril 20 MG TAB PO SCH (09:00)
[2021-06-24] MEDS ORDERED: ATORVASTATIN 40 MG TAB PO SCH (09:00)
[2021-06-24 12:33] VITALS: BP 104/71; PULSE 89; TEMP 97.9
--- NOTE | 2021-06-25 05:40 | Electrocardiogram Report ---
Test Reason : Blood Pressure : / mmHG Vent. Rate : 101 BPM Atrial Rate : 101 BPM P-R Int : 172 ms QRS Dur : 160 ms QT Int : 398 ms P-R-T Axes : 020 -29 000 degrees QTc Int : 516 ms Poor data quality, interpretation may be adversely affected Sinus tachycardia Right bundle branch block Inferior infarct (cited on or before 21-DEC-2013) Abnormal ECG When compared with ECG of 18-MAY-2017 21:11, QRS duration has increased T wave inversion now evident in Anterior leads Confirmed by León Castelan ([id number]) on 06/25/2021 5:40:10 AM Referred By: REFERRED SELF Confirmed By:León Castelan
== END 2021-06-24 14:09 | disposition home health service (06) ==
LOC: ED 16:14 → OR 18:23 → 3N 18:23
DX: W01.0XXA Fall on same level from slipping, tripping and stumbling without subsequent striking against object, initial encounter; I10 Essential (primary) hypertension; E11.9 Type 2 diabetes mellitus without complications; Z88.2 Allergy status to sulfonamides; E78.5 Hyperlipidemia, unspecified; Z79.899 Other long term (current) drug therapy; Z79.4 Long term (current) use of insulin; Z88.5 Allergy status to narcotic agent; K21.9 Gastro-esophageal reflux disease without esophagitis; S82.841B Displaced bimalleolar fracture of right lower leg, initial encounter for open fracture type I or II

== ENCOUNTER 2022-05-15 14:03 | Inpatient (IN) ==
[2022-05-15 15:37] LABS: Basophils # (auto) 0.04 K/uL (0-0.2); Basophils % (auto) 0.5 %; Eosinophils # (auto) 0.08 K/uL (0-0.50); Eosinophils % (auto) 0.9 %; Hematocrit (blood only) 47.5 % (40.1-51.0); Hemoglobin 16.3 g/dl (14.0-18.0); Immature Granulocytes # (auto) 0.03 K/uL (0.00-0.02); Immature Granulocytes % (auto) 0.4 %; Lymphocytes # (auto) 1.53 K/uL (1.2-3.4); Lymphocytes % (auto) 18.1 %; Mean Corpuscular Hemoglobin 30.5 pg (25.0-34.0); Mean Corpuscular Hgb Conc 34.3 g/dL (32.0-36.0); Mean Platelet Volume 11.8 fL (9.4-12.4); Monocytes # (auto) 0.55 K/uL (0.24-0.82); Monocytes % (auto) 6.5 %; Neutrophils # (auto) 6.21 K/uL (1.4-6.5); Neutrophils % (auto) 73.6 %; Platelet Count 152 K/uL (130-400); RDW Coefficient of Variation 12.2 % (11.5-14.5); RDW Standard Deviation 39.6 fL (36.4-46.3); Red Blood Count 5.34 M/uL (4.63-6.08); White Blood Count 8.44 K/ul (4.8-10.8)
--- NOTE | 2022-05-15 15:39 | Emergency Department Note ---
Impression & Plan Pulmonary emboli, Pleural effusion, bilateral, Dyspnea ED Provider Note NAME: DAVID BEAN AGE: 41 SEX: M : 1980 ARRIVES VIA: Walk-In INFORMANT: [Patient][, ] ED PROVIDER(S): [Ellis Mcgill MD] Chief Complaint: Shortness of breath, cough HPI: Patient presents due to concern for worsening shortness of breath. Patient states that he has had a dry nonproductive cough over the last month and was r ecently seen at clinic in [place] and prescribed antibiotics. Patient states that he was seen on Monday and still has some to take. The patient denies any smoking history. The patient denies any alcohol use. Patient denies any prior history of DVT or PE. The patient has had leg swelling but states that this is chronic in nature and is primarily due to his chronic time on his feet while he is working at his job. Patient denies any recent surgeries or procedures. The patient had been trialing a breathing treatment which seemed to help on occasion. Patient denies any nausea vomiting. Patient denies any known sick contacts or recent travel. The patient is not vaccinated for COVID-19. ROS: See HPI for pertinent positives and negatives. A total of 10 systems were reviewed and otherwise negative. Past medical history: See below Surgical history: See below Social history: See below Physical Exam: GENERAL: NAD, [wearing a mask,] non-toxic. EYE EXAM: Normal conjunctiva. PERRL, no anisocoria and EOM's grossly intact w/o pain. NECK: Supple, no nuchal rigidity, no adenopathy, non-tender. No signs of meningismus. FROM of the neck with good chin to chest and neck extension. No stridor. LUNGS: Clear to auscultation. Normal chest wall mechanics. HEART: Tachycardic and regular, no MRG. ABDOMEN: Abdomen soft, non-tender, normo-active bowel sounds, no masses, no rebound or guarding. BACK: No CVA TTP. SKIN: No rashes and no bruising. UPPER EXTREMITIES: Upper extremities are grossly normal. LOWER EXTREMITIES: Grossly normal, 1-2+ bilateral symmetric lower extremity edema without any calf pain. NEURO EXAM: A&O x3, cranial nerves II-XII grossly intact, normal speech, moves a ll 4 extremities. Differential diagnoses: Reactive airway disease, pneumonia, pneumothorax, COPD, CHF, infections, cardiac ischemia, pulmonary embolism, musculoskeletal, gastrointestinal, as well as other pathologies. Course: Patient was seen and evaluated the bedside. Full history physical exam was performed. EKG interpreted by me Sinus tachycardia, rate of 106, wide QRS, right bundle branch block pattern, no obvious ST elevations. Patient's right bundle branch block and overall morpholo gy is relatively unchanged from comparison EKG June 23, 2021. Imaging Studies: See Below Cardiac monitoring: An order was placed for continuous cardiac monitoring. The monitor shows a rate of 105 with tachycardic and regular rhythm. MDM: Patient was seen due to concern for shortness of breath. The patient did have bladder completed along with a D-dimer. The patient states that his inhaler was helping at home so the patient was trialed with a DuoNeb treatment. COVID test also ordered. Patient was also ordered IV fluids. Patient has a normal white count H&H and platelet count. The patient's kidney function is unremarkable. Patient does have mild hypomagnesemia and was ordered for replacement. The patient's coags are unremarkable but did have noted an elevated D-dimer. Light of the patient's elevated D-dimer CT angiography was ordered. Chest x-ray does show small left pleural effusion and mild interstitial pulmonary edema. Patient CT angiography does show several segmental PE within the bilateral lower lobes. Patient does have small to moderate bilateral pleural effusions. I did convey the findings to the patient. I did speak with the on-call hospitalist Dr. Zurita and the patient was admitted to the medicine service. Patient was ordered Lasix 40 mg along with BNP and bilateral venous Dopplers by the inpatient service. Critical Care: I have personally spent 42 minutes of critical care time in direct management of this patient. This includes bedside care, interpretation of diagnostic studies, and testing, discussion with consultants, patient, and family members, and other require inpatient management activities. This 42 minutes is in excess of all [facility] billable procedures. Past Med/Surg History Medical History Gastroparesis GERD (gastroesophageal reflux disease) History of kidney stones HLD (hyperlipidemia) TG 0, TC 301 in 06/2019 HTN (hypertension) Obesity Right bundle branch block T2DM (type 2 diabetes mellitus) A1c 13.6% in 06/2019 Vitamin D deficiency 8.9 in 06/2019 Surgical History History of ankle surgery (~06/23/21) right ankle external fixator/I&D History of colonoscopy History of esophagogastroduodenoscopy (EGD) History of heart surgery VSD- age 3---no issues since surgery, no professor of management History of tooth extraction History of wisdom tooth extraction S/P knee surgery remove fluid off right knee Family History Father Cardiac disorder Mother No problems noted. Aunt Cardiac disorder Other No family history of adverse response to anesthesia Denies family history of Ovarian cancer Prostate cancer Myocardial infarction Breast cancer Colorectal cancer Social History Smoking Status: Never smoker Age Started Using Tobacco: 16; Age Quit Using Tobacco: 26; packs per day: 0.5; Second Hand Exposure: No; Hx Alcohol Use: Yes Alcohol type: beer, wine and hard liquor Hx Substance Use: No Preferred Language: Tunisian Communication Ability: Effective Visual Impairment: No Limitations Hearing Ability: Normal Safety Clothing And Equipment Developer Required: No Beliefs That Will Affect Care: None marital status: Single Current Living Situation: Significant Other current occupational status: employed current occupation: [employer] Feels Safe at Home: Yes Dental Care, Regularly: Yes Physical Activity Frequency: 3-4 Times per Week Assistive Devices: Crutches Allergies Allergies Allergy/AdvReac Type Severity Reaction Status Date / Time Sulfa (Sulfonamide Allergy Intermediate ITCHY/HOT Verified 07/08/21 06:31 Antibiotics) morphine AdvReac Intermediate Nausea Verified 07/08/21 06:31 Home Meds Home Medications Medication Instructions Recorded Confirmed atorvastatin 40 mg tablet 40 mg PO QAM 06/23/21 08/18/21 gabapentin 100 mg capsule 100 mg PO TID 06/23/21 08/18/21 glipizide 5 mg tablet, extended 5 mg PO QAM 06/23/21 05/15/22 release 24 hr insulin detemir U-100 100 unit/mL 45 unit subcut QPM 06/23/21 08/18/21 (3 mL) subcutaneous pen (Levemir FlexTouch U-100 Insulin) lisinopril 20 mg tablet 20 mg PO QAM 06/23/21 08/18/21 Previous Rx's Medication Instructions Recorded cyclobenzaprine 10 mg tablet 10 mg PO TID PRN muscle spasm #20 11/17/21 tabs Results & Data (ED) Vital Signs Vital Signs - 24 hr 05/15/22 14:17 05/15/22 15:40 05/15/22 15:40 Temperature 36.8 C Temperature Source Temporal Artery Scan Pulse Rate 110 H Pulse Rate [Finger] 110 H Respiratory Rate 20 16 Respiratory Effort / Characteristics Non-Labored Spontaneous Non-Labored Spontaneous Respiratory Depth Normal Normal Respiratory Pattern Regular Regular Blood Pressure 139/103 H Blood Pressure [Right Arm] 138/99 Blood Pressure Mean 115 Blood Pressure Mean [Right Arm] 112 Blood Pressure Position [Right Arm] Sitting Pulse Oximetry 96 96 96 Oxygen Delivery Method Room Air Room Air Room Air Sepsis Recent Fever Within 48 Hours No Sepsis New/Unexplained Change in Mental Status No Sepsis Action Taken by Nursing No Action Required 05/15/22 17:00 Temperature Temperature Source Pulse Rate Pulse Rate [Finger] 105 H Respiratory Rate 20 Respiratory Effort / Characteristics Non-Labored Spontaneous Respiratory Depth Normal Respiratory Pattern Regular Blood Pressure Blood Pressure [Right Arm] 146/92 H Blood Pressure Mean Blood Pressure Mean [Right Arm] 110 Blood Pressure Position [Right Arm] Sitting Pulse Oximetry 94 Oxygen Delivery Method Room Air Sepsis Recent Fever Within 48 Hours Sepsis New/Unexplained Change in Mental Status Sepsis Action Taken by Long Term Medications Current Medication List: was personally reviewed by me Laboratory Data Attestation: I reviewed the patient's lab results. Result diagrams: 05/15/22 15:27 05/15/22 15:27 Lab Results 05/15/22 05/15/22 05/15/22 Range/Units 15:27 15:27 15:27 WBC 8.44 (4.8-10.8) K/ul RBC 5.34 (4.63-6.08) M/uL Hgb 16.3 (14.0-18.0) g/dl Hct 47.5 (40.1-51.0) % MCV 89.0 (80.0-100.0) fL MCH 30.5 (25.0-34.0) pg MCHC 34.3 (32.0-36.0) g/dL RDW Std Deviation 39.6 (36.4-46.3) fL RDW Coeff of Trevon 12.2 (11.5-14.5) % Plt Count 152 (130-400) K/uL MPV 11.8 (9.4-12.4) fL Immature Gran % (Auto) 0.4 % Neut % (Auto) 73.6 % Lymph % (Auto) 18.1 % [place] % (Auto) 6.5 % Eos % (Auto) 0.9 % Baso % (Auto) 0.5 % Neut # (Auto) 6.21 (1.4-6.5) K/uL Lymph # (Auto) 1.53 (1.2-3.4) K/uL [place] # (Auto) 0.55 (0.24-0.82) K/uL Eos # (Auto) 0.08 (0-0.50) K/uL Baso # (Auto) 0.04 (0-0.2) K/uL Immature Gran # (Auto) 0.03 H (0.00-0.02) K/uL PT 11.4 (9.0-12.0) Seconds INR 1.1 (0.9-1.1) APTT 23.6 (21.0-31.0) Seconds PTT Ratio 0.9 D-Dimer 2070 H* (0-500) ug/L FEU Sodium 141 (136-145) mmol/L Potassium 4.0 (3.5-5.1) mmol/L Chloride 108 H (98-107) mmol/L Carbon Dioxide 23 (21-32) mmol/L Anion Gap 10 (3-11) BUN 14 (6-23) mg/dl Creatinine 0.71 (0.6-1.4) mg/dl Est Cr Clr Drug Dosing 148.0 ml/min Est GFR ( Amer) 134.1 ml/min Est GFR (Non-Af Amer) 115.7 ml/min BUN/Creatinine Ratio 19.7 (10-20) Glucose 166 H (70-99(Fasting)) mg/dl Calcium 8.8 (8.5-10.1) mg/dl Magnesium 1.4 L (1.7-2.4) mg/dl Total Bilirubin 1.4 H (0.2-1.0) mg/dl AST 13 (13-39) U/L ALT 14 (7-52) U/L Alkaline Phosphatase 107 H (34-104) U/L Troponin I High Sens (0-20) pg/ml Total Protein 6.3 (6.0-8.3) gm/dl Albumin 4.0 (3.4-5.0) gm/dl Globulin 2.3 L (2.5-4.0) gm/dl Albumin/Globulin Ratio 1.7 (0.9-2) SARS-CoV-2, RNA, NAAT (NEGATIVE) 05/15/22 05/15/22 Range/Units 15:27 16:01 WBC (4.8-10.8) K/ul RBC (4.63-6.08) M/uL Hgb (14.0-18.0) g/dl Hct (40.1-51.0) % MCV (80.0-100.0) fL MCH (25.0-34.0) pg MCHC (32.0-36.0) g/dL RDW Std Deviation (36.4-46.3) fL RDW Coeff of Trevon (11.5-14.5) % Plt Count (130-400) K/uL MPV (9.4-12.4) fL Immature Gran % (Auto) % Neut % (Auto) % Lymph % (Auto) % [place] % (Auto) % Eos % (Auto) % Baso % (Auto) % Neut # (Auto) (1.4-6.5) K/uL Lymph # (Auto) (1.2-3.4) K/uL [place] # (Auto) (0.24-0.82) K/uL Eos # (Auto) (0-0.50) K/uL Baso # (Auto) (0-0.2) K/uL Immature Gran # (Auto) (0.00-0.02) K/uL PT (9.0-12.0) Seconds INR (0.9-1.1) APTT (21.0-31.0) Seconds PTT Ratio D-Dimer (0-500) ug/L FEU Sodium (136-145) mmol/L Potassium (3.5-5.1) mmol/L Chloride (98-107) mmol/L Carbon Dioxide (21-32) mmol/L Anion Gap (3-11) BUN (6-23) mg/dl Creatinine (0.6-1.4) mg/dl Est Cr Clr Drug Dosing ml/min Est GFR ( Amer) ml/min Est GFR (Non-Af Amer) ml/min BUN/Creatinine Ratio (10-20) Glucose (70-99(Fasting)) mg/dl Calcium (8.5-10.1) mg/dl Magnesium (1.7-2.4) mg/dl Total Bilirubin (0.2-1.0) mg/dl AST (13-39) U/L ALT (7-52) U/L Alkaline Phosphatase (34-104) U/L Troponin I High Sens 16.2 (0-20) pg/ml Total Protein (6.0-8.3) gm/dl Albumin (3.4-5.0) gm/dl Globulin (2.5-4.0) gm/dl Albumin/Globulin Ratio (0.9-2) SARS-CoV-2, RNA, NAAT NEGATIVE (NEGATIVE) Administered Medications Discontinued Medications Albuterol (Albut/Ipratrop 3mg/0.5mg Neb 3 Ml Vial) 6 ml INH NOW STA Stop: 05/15/22 15:53 Last Admin: 05/15/22 15:59 Dose: 6 ml Documented By: BENJAMIN Sodium Chloride (Nss 1000ml) 1,000 mls @ 999 mls/hr IV .Q1H1M IVAN Stop: 05/15/22 17:00 Last Infusion: 05/15/22 17:04 Dose: 0 mls/hr Documented By: Admin: 05/15/22 15:59 Dose: 999 mls/hr Documented By: BENJAMIN Magnesium Sulfate/Dextrose (Magnesium Sulfate / D5w) 1 gm in 100 mls @ 100 mls/hr IV NOW STA Stop: 05/15/22 17:56 Last Infusion: 05/15/22 18:03 Dose: 0 mls/hr Documented By: Admin: 05/15/22 17:01 Dose: 100 mls/hr Documented By: BENJAMIN Ioversol (Optiray 320 125ml) 119 ml IV ONCE ONE Stop: 05/15/22 16:41 Last Admin: 05/15/22 16:40 Dose: 119 ml Documented By: MICHAEL Imaging Data Radiologist's Impression: Chest X-Ray 05/15/22 14:53 XR chest 1V portable CLINICAL HISTORY: Shortness of breath. COMPARISON STUDY: Chest radiograph June 23, 2021. FINDINGS: There is no pneumothorax. Small left pleural effusion is noted. Interstitial thickening favors mild pulmonary edema. Moderate cardiomegaly is unchanged. No consolidation to suggest pneumonia. IMPRESSION: Cardiomegaly, mild interstitial pulmonary edema and a small left pleural effusion. ACT 112: Negative or not required by law. Electronically signed by: Jamir Traore M.D. 05/15/2022 4:15 PM Chest CTA 05/15/22 16:21 CT ANGIOGRAPHY OF THE CHEST, PULMONARY EMBOLUS PROTOCOL CLINICAL HISTORY: PE, elevated dimer. Cough. Shortness of breath COMPARISON STUDY: Chest radiograph June 23, 2021 and May 15, 2022. TECHNIQUE: Following IV administration of 119 mL of Optiray, helical axial images of the chest were obtained utilizing the pulmonary embolus protocol. Maximal intensity projections and sagittal and coronal reformats were viewed on an independent 3D workstation. IV contrast was administered without complication. Automated exposure control was utilized for the study. A dose lowering technique was utilized adhering to the principles of ALARA. CT DOSE: 847.80 mGy.cm FINDINGS: Note is made of segmental pulmonary emboli within the bilateral lower lobes. There is no CT evidence for right heart strain. Mild cardiomegaly is noted with dilatation of the left ventricle. There is no pericardial effusion. Small to moderate bilateral pleural effusions are present. There is no pneumothorax. Central airways are patent. There is interlobular septal thickening. In addition, there are scattered alveolar opacities within the lungs. No acute fracture or suspicious lesion is identified within the visualized bony thorax. A 2.2 cm lobulated density along the posterior aspect of the gastric fundus is unchanged since CT of September 09, 2016. Therefore, this is likely benign. Upper abdomen is otherwise unremarkable. IMPRESSION: 1. Several segmental pulmonary emboli within the bilateral lower lobes. 2. Small to moderate bilateral pleural effusions. 3. Mild cardiomegaly. Interlobular septal thickening consistent with interstitial pulmonary edema. Scattered alveolar opacities within lungs could reflect alveolar pulmonary edema or a superimposed infectious process. ACT 112: Negative or not required by law. Electronically signed by: Jamir Traore M.D. 05/15/2022 6:31 PM Discharge Plan Visit Data Chief Complaint: Cough Stated Complaint: COUGH, LIGHTHEADED, SOB ED Provider: Ellis Mcgill Discharge Problem: Pulmonary emboli, Pleural effusion, bilateral, Dyspnea Patient Disposition: Admitted As Inpatient Forms Stand Alone Forms: [facility] Prescriptions Prescriptions: No Action cyclobenzaprine 10 mg tablet 10 mg PO TID PRN (Reason: muscle spasm) Qty: 20 0RF atorvastatin 40 mg tablet 40 mg PO QAM lisinopril 20 mg tablet 20 mg PO QAM glipizide 5 mg tablet extended release 24hr 5 mg PO QAM Rx Instructions: TAKE 30 MINUTES PRIOR TO A MEAL. gabapentin 100 mg capsule 100 mg PO TID Levemir FlexTouch U-100 Insuln 100 unit/mL (3 mL) insulin pen 45 unit SUBCUT QPM Referrals Referrals: Brandi Woods DO [Physician] -
[2022-05-15] MEDS ORDERED: ALBUT/IPRATROP 3MG/0.5MG NEB 3 ML VIAL INH STA (15:52)
[2022-05-15 15:55] LABS: INR 1.1 (0.9-1.1); Partial Thromboplastin Ratio 0.9; Partial Thromboplastin Time 23.6 Seconds (21.0-31.0); Prothrombin Time 11.4 Seconds (9.0-12.0)
[2022-05-15 15:59] LABS: Albumin Globulin Ratio 1.7 (0.9-2); BUN Creatinine Ratio 19.7 (10-20); Bilirubin,Total 1.4 mg/dl (0.2-1.0); Calcium 8.8 mg/dl (8.5-10.1); Est GFR (African American) 134.1 ml/min; Est GFR (Non-African American) 115.7 ml/min; Globulin 2.3 gm/dl (2.5-4.0); Magnesium 1.4 mg/dl (1.7-2.4); Total Protein 6.3 gm/dl (6.0-8.3)
[2022-05-15] MEDS ORDERED: SODIUM CHLORIDE 0.9% 1000ML 1,000 ML IV SCH (16:00)
--- NOTE | 2022-05-15 16:17 | XRay Report ---
XR chest 1V portable CLINICAL HISTORY: Shortness of breath. COMPARISON STUDY: Chest radiograph June 23, 2021. FINDINGS: There is no pneumothorax. Small left pleural effusion is noted. Interstitial thickening fav ors mild pulmonary edema. Moderate cardiomegaly is unchanged. No consolidation to suggest pneumonia. IMPRESSION: Cardiomegaly, mild interstitial pulmonary edema and a small left pleural effusion. ACT 112: Negative or not required by law. Electronically signed by: Jamir Traore M.D. 05/15/2022 4:15 PM
[2022-05-15 16:19] LABS: D Dimer 2070 ug/L FEU (0-500)
[2022-05-15] MEDS ORDERED: OPTIRAY 320 125ml IV ONE (16:40)
[2022-05-15] MEDS ORDERED: MAGNESIUM SULFATE / D5W 1 GM/100 ML BAG IV STA (16:57)
--- NOTE | 2022-05-15 18:34 | CT Scan Report ---
CT ANGIOGRAPHY OF THE CHEST, PULMONARY EMBOLUS PROTOCOL CLINICAL HISTORY: PE, elevated dimer. Cough. Shortness of breath COMPARISON STUDY: Chest radiograph June 23, 2021 and May 15, 2022. TECHNIQUE: Following IV administration of 119 mL of Optiray, helical axial images of the chest were o btained utilizing the pulmonary embolus protocol. Maximal intensity projections and sagittal and cor onal reformats were viewed on an independent 3D workstation. IV contrast was administered without co mplication. Automated exposure control was utilized for the study. A dose lowering technique was ut ilized adhering to the principles of ALARA. CT DOSE: 847.80 mGy.cm FINDINGS: Note is made of segmental pulmonary emboli within the bilateral lower lobes. There is no C T evidence for right heart strain. Mild cardiomegaly is noted with dilatation of the left ventricle. There is no pericardial effusion. Small to moderate bilateral pleural effusions are present. There is no pneumothorax. Central airways are patent. There is interlobular septal thickening. In addition, t here are scattered alveolar opacities within the lungs. No acute fracture or suspicious lesion is pancho ntified within the visualized bony thorax. A 2.2 cm lobulated density along the posterior aspect of t he gastric fundus is unchanged since CT of September 09, 2016. Therefore, this is likely benign. Upper abdomen is otherwise unremarkable. IMPRESSION: 1. Several segmental pulmonary emboli within the bilateral lower lobes. 2. Small to moderate bilateral pleural effusions. 3. Mild cardiomegaly. Interlobular septal thickening consistent with interstitial pulmonary edema. Sc attered alveolar opacities within lungs could reflect alveolar pulmonary edema or a superimposed infe ctious process. ACT 112: Negative or not required by law. Electronically signed by: Jamir Traore M.D. 05/15/2022 6:31 PM
[2022-05-15] MEDS ORDERED: Heparin IV Adult Wt-Based Standard WITH Bolus Protocol IV STA (18:44)
--- NOTE | 2022-05-15 18:56 | History & Physical Report ---
Date of Service May 15, 2022 Assessment & Plan (1) Pulmonary emboli: Plan: Unprovoked - given young age would warranted hypercoagulable workup, consider hematology referral IV heparin bolus and drip Given left-sided abdominal pain and significant short-term memory loss we will get a CT head and CT abdomen pelvis to rule out further emboli phenomena especially with history of ventricular septal defect. If CT head is negative we will get brain MRI to confirm no CVA. (2) Pleural effusion, bilateral: Plan: Unclear if this represents heart failure or secondary to pulmonary emboli as above. Associated pulmonary edema. TTE Lasix 40mg IV now and daily Strict I&Os, daily weight, fluid restrict 1500ml, low Na diet (3) T2DM (type 2 diabetes mellitus): Plan: HbA1c 8.8 in June 2021, will repeat with a.m. labs. Continue his usual Levemir 45 units at night Hold glipizide and switch from NovoLog for carb coverage and correction: --Goal BSG Range: Low 110 mg/dL, High 140 mg/dL --Correction Factor: 20 mg/dL/unit --Carbohydrate ratio = 6 g/unit --BSGs ACHS if eating, q6h if npo (4) Right bundle branch block: Plan: This does not appear to be new therefore do not feel it is related to the pulmonary emboli as above. ? Related to previous ventricular septal defect and subsequent repair. (5) HLD (hyperlipidemia): Plan: Continue atorvastatin 40 mg p.o. every morning (6) HTN (hypertension): Plan: Continue lisinopril 20 mg p.o. every morning Plan VTE Prophylaxis -IV heparin Diet -heart healthy, type 2 diabetes, low-sodium, fluid restrict as above Disposition -admit to PCU Admission and Anticipated Discharge Date Admission Date: May 15, 2022 History of Present Illness Chief Complaint: Shortness of breath Primary Care Provider: NO PCP Man Day is a 41 year old male who presents to the ER Shortness of breath. He reports first noticing shortness of breath 4 weeks ago and progressively getting worse since that time. Worse on lying flat and associated paroxysmal nocturnal dyspnea. No palpitations, claudication, presyncope or syncope. Associated left sided abdominal pain. No nausea, vomiting, diarrhea, constipation. Never had COVID-19 of the vaccination. In the ER d-dimer was elevated [address] chest angiogram confirmed bilateral pulmonary emboli. He denies any personally or family history of blood clots. No recent surgeries, long haul flights or long car journeys. He does report heart problems including MIs and heart failure run in his family. As a child he had what sounds like a ventricular septal defect which was surgically repaired at 3 years old with no heart problems since then per patient . He was started on intravenous heparin for bilateral pulmonary emboli and referred to medicine for admission ongoing management of this. Allergies Allergy/AdvReac Type Severity Reaction Status Date / Time Sulfa (Sulfonamide Allergy Intermediate ITCHY/HOT Verified 05/15/22 19:59 Antibiotics) morphine AdvReac Intermediate Nausea Verified 05/15/22 19:59 Home Medications Medication Instructions Recorded Confirmed Type atorvastatin 40 mg tablet 40 mg PO QAM 06/23/21 05/15/22 History gabapentin 100 mg capsule 100 mg PO TID 06/23/21 05/15/22 History glipizide 5 mg tablet, extended 5 mg PO QAM 06/23/21 05/15/22 History release 24 hr insulin detemir U-100 100 unit/mL 45 unit subcut QPM 06/23/21 05/15/22 History (3 mL) subcutaneous pen (Levemir FlexTouch U-100 Insulin) lisinopril 20 mg tablet 20 mg PO QAM 06/23/21 05/15/22 History cyclobenzaprine 10 mg tablet 10 mg PO TID PRN muscle spasm #20 11/17/21 05/15/22 Rx tabs Past Med/Surg History Medical History Gastroparesis GERD (gastroesophageal reflux disease) History of kidney stones HLD (hyperlipidemia) TG 0, TC 301 in 06/2019 HTN (hypertension) Obesity Right bundle branch block T2DM (type 2 diabetes mellitus) A1c 13.6% in 06/2019 Vitamin D deficiency 8.9 in 06/2019 Surgical History History of ankle surgery (~06/23/21) right ankle external fixator/I&D History of colonoscopy History of esophagogastroduodenoscopy (EGD) History of heart surgery VSD- age 3---no issues since surgery, 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 No fever or chills. Difficulty remembering things for the last couple of months. Physical Exam Constitutional: WD/WN, vitals as above Eyes: PERRL, conjunctivae normal, anicteric sclerae Neck: trachea midline, no thyromegaly Respiratory: normal respiratory effort; no respiratory distress Auscultation: + diminished lung sounds (Bibasal); no crackles and no wheezes Cardiovascular: RRR, no murmur, no edema Gastrointestinal (Abdomen): Inspection/Auscultation: abdomen normal to inspection; abdomen not distended Percussion/Palpation: + abdomen tender (left without rebound) and abdomen soft; no guarding and abdomen not rigid Musculoskeletal: no cyanosis or clubbing, extremities motor strength 5/5 Skin: no rashes, warm and dry Neurologic: moves all extremities, awake and + confused (appears to be having significant difficulty remembering recent events) Psychiatric: A+Ox3, euthymic affect Results & Data Results & Data ([facility]) Vital Signs (Past 12 Hours) Vital Signs Temp Pulse Pulse Resp BP BP Pulse Ox 05/15/22 17:00 105 H 20 146/92 H 94 05/15/22 15:40 96 05/15/22 15:40 110 H 16 138/99 96 05/15/22 14:17 36.8 C 110 H 20 139/103 H 96 O2 Del Method 05/15/22 17:00 Room Air 05/15/22 15:40 Room Air 05/15/22 15:40 Room Air 05/15/22 14:17 Room Air Laboratory Results Abnormal lab results 05/15/22 05/15/22 05/15/22 Range/Units 15:27 15:27 15:27 Immature Gran # (Auto) 0.03 H (0.00-0.02) K/uL D-Dimer 2070 H* (0-500) ug/L FEU Chloride 108 H (98-107) mmol/L Glucose 166 H (70-99(Fasting)) mg/dl POC Glucose (70-99) mg/dl Magnesium 1.4 L (1.7-2.4) mg/dl Total Bilirubin 1.4 H (0.2-1.0) mg/dl Alkaline Phosphatase 107 H (34-104) U/L B-Natriuretic Peptide (0-100) pg/ml Globulin 2.3 L (2.5-4.0) gm/dl Urine Protein (Negative) 05/15/22 05/15/22 05/15/22 Range/Units 19:39 22:06 23:35 Immature Gran # (Auto) (0.00-0.02) K/uL D-Dimer (0-500) ug/L FEU Chloride (98-107) mmol/L Glucose (70-99(Fasting)) mg/dl POC Glucose 196 H (70-99) mg/dl Magnesium (1.7-2.4) mg/dl Total Bilirubin (0.2-1.0) mg/dl Alkaline Phosphatase (34-104) U/L B-Natriuretic Peptide 590 H (0-100) pg/ml Globulin (2.5-4.0) gm/dl Urine Protein 1+ H (Negative) Diagnostic Findings XR chest 1V portable CLINICAL HISTORY: Shortness of breath. COMPARISON STUDY: Chest radiograph June 23, 2021. FINDINGS: There is no pneumothorax. Small left pleural effusion is noted. Interstitial thickening favors mild pulmonary edema. Moderate cardiomegaly is unchanged. No consolidation to suggest pneumonia. IMPRESSION: Cardiomegaly, mild interstitial pulmonary edema and a small left pleural effusion. CT ANGIOGRAPHY OF THE CHEST, PULMONARY EMBOLUS PROTOCOL CLINICAL HISTORY: PE, elevated dimer. Cough. Shortness of breath COMPARISON STUDY: Chest radiograph June 23, 2021 and May 15, 2022. TECHNIQUE: Following IV administration of 119 mL of Optiray, helical axial images of the chest were obtained utilizing the pulmonary embolus protocol. Maximal intensity projections and sagittal and coronal reformats were viewed on an independent 3D workstation. IV contrast was administered without complication. Automated exposure control was utilized for the study. A dose lowering technique was utilized adhering to the principles of ALARA. CT DOSE: 847.80 mGy.cm FINDINGS: Note is made of segmental pulmonary emboli within the bilateral lower lobes. There is no CT evidence for right heart strain. Mild cardiomegaly is noted with dilatation of the left ventricle. There is no pericardial effusion. Small to moderate bilateral pleural effusions are present. There is no pneumothorax. Central airways are patent. There is interlobular septal thickening. In addition, there are scattered alveolar opacities within the lungs. No acute fracture or suspicious lesion is identified within the visualized bony thorax. A 2.2 cm lobulated density along the posterior aspect of the gastric fundus is unchanged since CT of September 09, 2016. Therefore, this is likely benign. Upper abdomen is otherwise unremarkable. IMPRESSION: 1. Several segmental pulmonary emboli within the bilateral lower lobes. 2. Small to moderate bilateral pleural effusions. 3. Mild cardiomegaly. Interlobular septal thickening consistent with interstitial pulmonary edema. Scattered alveolar opacities within lungs could reflect alveolar pulmonary edema or a superimposed infectious process. Medications Administered ER Medications Given: NSS 1L bolus IV heparin bolus and drip Mg sulphate 1g IV Duoneb 6ml NEB ECG Indication: SOB/dyspnea Rate (beats per minute): 106 Rhythm: sinus tachycardia Findings: + RBBB Comparison ECG Date: from (June 23, 2021) Change: the following changes noted (T wave inversion no longer evident in inferior leads) Code Status & VTE Plan Code Status Full VTE Prophylaxis Plan VTE Prophylaxis will be ordered: Yes PG Care Time/CCT Total # of Minutes Spent Total Time Spent with Patient: Total time spent is greater than 50% in coordination of care (as documented) at patient's floor/unit and/or counseling patient: Coding Level of Care Code 45450 Initial Inpt Care Lvl 3 Diagnoses Pulmonary emboli I26.99 Pleural effusion, bilateral J90 T2DM (type 2 diabetes mellitus) E11.9 Right bundle branch block I45.10 HLD (hyperlipidemia) E78.5 HTN (hypertension) I10
[2022-05-15] MEDS ORDERED: HEPARIN SOD (PORCINE) 1000 UNIT/ML IV ONE (19:00)
[2022-05-15] MEDS ORDERED: FUROSEMIDE 40 MG/4 ML VIAL IV ONE (19:11)
[2022-05-15] MEDS ORDERED: OPTIRAY 320 100ml IV ONE (19:54)
--- NOTE | 2022-05-15 20:03 | CT Scan Report ---
HEAD CT NONCONTRAST CT DOSE: HISTORY: short term memory loss, PEs ?CVA TECHNIQUE: Multiaxial CT images of the head were performed without the use of intravenous contrast. A utomated exposure control was utilized for this study. A dose lowering technique was utilized adheri ng to the principles of ALARA. Comparison: Head CT 05/18/2017. Findings: The paranasal sinuses and mastoid air cells are clear. The calvarium and skull base are int act. The ventricles and sulci are within normal limits. There is no mass, hematoma, midline shift, or acute infarct. Impression: No acute intracranial abnormality. ACT 112: Negative or not required by law. Electronically signed by: Miguel Singleton M.D. 05/15/2022 8:02 PM
--- NOTE | 2022-05-15 20:14 | CT Scan Report ---
CT OF THE ABDOMEN AND PELVIS WITH CONTRAST CLINICAL HISTORY: Left upper quadrant and epigastric pain, PE COMPARISON STUDY: CT of the abdomen and pelvis September 09, 2016. Renal ultrasound September 12, 2016 TECHNIQUE: Following IV administration of 94 mL of Optiray, axial images of the abdomen and pelvis we re obtained from the lung bases to the proximal femurs. Images were reviewed in the axial, sagittal, and coronal planes. IV contrast was administered without complication. Automated exposure control wa s utilized for the study. A dose lowering technique was utilized adhering to the principles of ALARA . CT DOSE: 2235.30 mGy.cm FINDINGS: Bilateral pleural effusions, lower lobe pulmonary emboli and evidence for pulmonary edema w ithin the lower lungs are better depicted on recent chest CT. There is body wall edema. No pneumatosi s, free air or portal venous gas is present. No hepatic lesions are present. There is borderline sple nomegaly. A 1.8 cm lobulated density along the posterior aspect of the gastric fundus likely reflects a splenule. This is unchanged. The adrenal glands, kidneys and pancreas are unremarkable. There is n o biliary or pancreatic ductal dilatation. Sensitivity for detection of urinary calculi is diminished given excreted contrast from recent CT. There is no hydronephrosis. Caliber and wall thickness of sm all and large bowel are normal. There is no evidence for a bowel obstruction. The appendix is normal. Colonic diverticulosis is noted without evidence for acute diverticulitis. No lymphadenopathy is pre sent. No acute fracture or suspicious lesion is identified within the visualized skeletal structures. IMPRESSION: 1. No acute process within the abdomen or pelvis. 2. Lower lobe pulmonary emboli, bilateral pleural effusions and evidence for pulmonary edema better d epicted on chest CT performed earlier today. Body wall edema. 3. Colonic diverticulosis without evidence for acute diverticulitis. ACT 112: Negative or not required by law. Electronically signed by: Jamir Traore M.D. 05/15/2022 8:12 PM
[2022-05-15] MEDS: HEPARIN SODIUM/DEXTROSE 25,000 UNITS/500 ML BAG IV SCH (20:55)
[2022-05-15] MEDS ORDERED: GLUCOSE 10 TAB/TUBE PO PRN (21:03)
[2022-05-15] MEDS ORDERED: CARBOHYDRATES FOR HYPOGLYCEMIA PO PRN (21:03)
[2022-05-15] MEDS ORDERED: DEXTROSE 50% 50 ML SYRINGE IV PRN (21:03)
[2022-05-15] MEDS ORDERED: GLUCOSE 40% GEL 15 GM TUBE PO PRN (21:03)
[2022-05-15] MEDS ORDERED: GLUCAGON FOR INJ 1 MG VIAL SQ PRN (21:03)
[2022-05-15] MEDS: GABAPENTIN 100 MG CAP PO SCH (22:17)
[2022-05-15] MEDS: INSULIN DETEMIR FLEXPEN/FLEX TOUCH 100 UNITS/ML 3ML SQ SCH (22:18)
[2022-05-15 23:54] LABS: Appearance Urine Clear (Clear); Bacteria Urine Automated Negative (Negative); Bilirubin Urine Negative (Negative); Blood Urine Negative (Negative); Color Urine Yellow; Epithelial Cell Urine Auto 0-5 /lpf (0-5); Glucose Urine UA Negative (Negative); Ketones Urine Negative (Negative); Leukocyte Esterase Urine Negative (Negative); Nitrite Urine Negative (Negative); Protein Urine 1+ (Negative); RBC Urine Automated 0-4 /hpf (0-4); Specific Gravity Urine 1.018 (1.000-1.030); Urobilinogen Urine Negative (Negative)
[2022-05-16 03:29] LABS: Partial Thromboplastin Ratio 1.4; Partial Thromboplastin Time 38.5 Seconds (21.0-31.0)
[2022-05-16 03:40] LABS: BUN Creatinine Ratio 17.6 (10-20); Calcium 8.5 mg/dl (8.5-10.1); Creatinine Clr Calc Pharmacy 154.4 ml/min; Est GFR (African American) 136.5 ml/min; Est GFR (Non-African American) 117.8 ml/min; Potassium 3.9 mmol/L (3.5-5.1)
[2022-05-16 04:23] LABS: Hematocrit (blood only) 48.2 % (40.1-51.0); Hemoglobin 16.2 g/dl (14.0-18.0); Mean Corpuscular Hemoglobin 30.1 pg (25.0-34.0); Mean Corpuscular Hgb Conc 33.6 g/dL (32.0-36.0); Mean Corpuscular Volume 89.4 fL (80.0-100.0); Mean Platelet Volume 11.8 fL (9.4-12.4); Platelet Count 139 K/uL (130-400); RDW Coefficient of Variation 12.5 % (11.5-14.5); RDW Standard Deviation 40.3 fL (36.4-46.3); Red Blood Count 5.39 M/uL (4.63-6.08); White Blood Count 6.14 K/ul (4.8-10.8)
[2022-05-16 04:24] LABS: Basophils # (auto) 0.03 K/uL (0-0.2); Basophils % (auto) 0.5 %; Eosinophils # (auto) 0.07 K/uL (0-0.50); Eosinophils % (auto) 1.1 %; Immature Granulocytes # (auto) 0.02 K/uL (0.00-0.02); Immature Granulocytes % (auto) 0.3 %; Lymphocytes # (auto) 1.15 K/uL (1.2-3.4); Lymphocytes % (auto) 18.7 %; Monocytes # (auto) 0.39 K/uL (0.24-0.82); Monocytes % (auto) 6.4 %; Neutrophils # (auto) 4.48 K/uL (1.4-6.5); Platelet Estimate Decreased (Normal)
[2022-05-16 06:43] LABS: Estimated Average Glucose 255 mg/dl; Hemoglobin A1C 10.5 % (4.5-5.6)
[2022-05-16] MEDS: ACETAMINOPHEN 325 MG TAB PO PRN ×3 (07:06→19:53)
--- NOTE | 2022-05-16 07:14 | Ultrasound Report ---
BILATERAL LOWER EXTREMITY VENOUS DOPPLER HISTORY: PE, ?DVT b/l leg swelling COMPARISON STUDY: None. FINDINGS: There is normal compressibility, flow, and augmentation within the left lower extremity jazz p venous system. There is near occlusive thrombus within the right common femoral vein, proximal supe rficial femoral vein, and proximal greater saphenous vein. The right popliteal vein and right calf ve ssels are patent. IMPRESSION: 1. Positive DVT within the right lower extremity as described above. 2. No DVT within the left lower extremity. ACT 112: Negative or not required by law. Electronically signed by: Miguel Singleton M.D. 05/16/2022 7:12 AM
[2022-05-16] MEDS: INSULIN ASPART PER UNIT SC SCH ×4 (08:12→21:18)
[2022-05-16] MEDS: GABAPENTIN 100 MG CAP PO SCH ×3 (08:13→19:54)
[2022-05-16] MEDS: lisinopril 20 MG TAB PO SCH (08:13)
[2022-05-16] MEDS: ATORVASTATIN 40 MG TAB PO SCH (08:13)
--- NOTE | 2022-05-16 08:26 | Magnetic Resonance Report ---
MR brain wo con HISTORY: 41 years-old Male short term memory loss, PEs ?CVA, acute memory loss with dizziness. COMPARISON: Head CT 05/15/2022 TECHNIQUE: Multiplanar multisequence MRI of the brain was obtained without the use of IV contrast. FINDINGS: Unremarkable midline structures. There is no restricted diffusion to suggest acute or subacute infarc t. There is no acute intracranial hemorrhage, midline shift, abnormal extra-axial collection, hydroce phalus or intracranial mass. There is no pathologic blooming artifact. There are a few subcentimeter scattered foci of T2/FLAIR prolongation noted within the subcortical and periventricular white matter . Cerebral venous sinuses and major arterial flow voids appear patent. Mastoid air cells and paranasal sinuses are clear. The skull, orbits and soft tissues are unremarkable. IMPRESSION: 1. No acute intracranial abnormality. No acute or subacute infarct. 2. There are a few scattered nonspecific T2/FLAIR hyperintense foci noted throughout the white matter . Differential considerations would include sequela of chronic migraines or early chronic microvascul ar ischemic disease. A demyelinating process is considered less likely. ACT 112: Negative or not required by law. The above report was generated using voice recognition software. It may contain grammatical, syntax o r spelling errors. Dictated: 05/16/2022 7:12 AM Transcribed: 05/16/2022 8:12 AM Zina [id number] LYN_[facility] Electronically signed by: Stuart Keith M.D. 05/16/2022 8:23 AM
[2022-05-16 11:14] LABS: Partial Thromboplastin Ratio 1.2; Partial Thromboplastin Time 34.3 Seconds (21.0-31.0)
[2022-05-16] MEDS ORDERED: POTASSIUM CHLORIDE CRTAB 20 MEQ TABCR PO STA (11:27)
[2022-05-16] MEDS ORDERED: FUROSEMIDE 40 MG/4 ML VIAL IV SCH (11:30)
--- NOTE | 2022-05-16 11:35 | Hospitalist Progress Note ---
Date of Service May 16, 2022 Assessment & Plan (1) Pulmonary emboli: Plan: Unprovoked - given young age would warranted hypercoagulable workup, consider hematology referral Appears to have come from right lower extremity DVT IV heparin bolus and drip CT A/P, head and MRI brain all negative for emboli (2) Pleural effusion, bilateral: Plan: Unclear if this represents heart failure or secondary to pulmonary emboli as above. Associated pulmonary edema, orthopnea and PND TTE - taken but pending result currently Lasix 40mg IV given on admission and currently has a positive balance although unclear if ER output recorded - will increase to 40mg IV [id number] Strict I&Os, daily weight, fluid restrict 1500ml, low Na diet (3) T2DM (type 2 diabetes mellitus): Plan: HbA1c 10.5 Continue his usual Levemir 45 units at night Hold glipizide and switch from NovoLog for carb coverage and correction: --Goal BSG Range: Low 110 mg/dL, High 140 mg/dL --Correction Factor: 20 mg/dL/unit --Carbohydrate ratio = 6 g/unit --BSGs ACHS if eating, q6h 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 ? Related to previous ventricular septal defect and subsequent repair. (5) HLD (hyperlipidemia): Plan: Continue atorvastatin 40 mg p.o. every morning (6) HTN (hypertension): Plan: Continue lisinopril 20 mg p.o. every morning Plan VTE Prophylaxis -IV heparin Diet -heart healthy, type 2 diabetes, low-sodium, fluid restrict as above Disposition - continued admission to PCU Admission and Anticipated Discharge Date Admission Date: May 15, 2022 Subjective Still having significant shortness of breath in the morning but improved since admission. Associated orthopnea and PND. Currently requiring 1LPM O2. TTE pending. Leg swelling similar to yesterday. No chest pain, palpitations, claudication, presyncope or syncope. Review of Systems Review of Systems: All systems reviewed & are unremarkable except as noted in Subjective Physical Exam Constitutional: WD/WN, vitals as above Respiratory: normal respiratory effort, lungs clear to auscultation normal respiratory effort; no respiratory distress Auscultation: + diminished lung sounds (Bibasal); no crackles and no wheezes Cardiovascular: Rate/Rhythm: regular rhythm and + tachycardic Heart Sounds: no murmur Extremities: normal capillary refill and + pedal edema (1+ b/l equal pitting); no calf tenderness Musculoskeletal: no cyanosis or clubbing, extremities motor strength 5/5 Skin: no rashes, warm and dry Neurologic: moves all extremities and awake; not confused Psychiatric: A+Ox3, euthymic affect Results & Data Results & Data ([facility]) Vital Signs (Past 12 Hours) Vital Signs Temp Pulse Resp BP BP Pulse Ox O2 Del Method 05/16/22 08:06 36.7 C 108 H 18 134/98 96 Nasal Cannula 05/16/22 04:01 100 H 22 149/101 H 96 Nasal Cannula 05/16/22 03:58 36.4 C L 101 H 20 125/90 95 Room Air O2 Flow Rate 05/16/22 08:06 1.0 05/16/22 04:01 2 05/16/22 03:58 PG Care Time/CCT Total # of Minutes Spent Total Time Spent with Patient: Total time spent is greater than 50% in coordination of care (as documented) at patient's floor/unit and/or counseling patient: Coding Level of Care Code 06014 Subseq Hosp Care Lvl 3 Diagnoses Pulmonary emboli I26.99 Pleural effusion, bilateral J90 T2DM (type 2 diabetes mellitus) E11.9 Right bundle branch block I45.10 HLD (hyperlipidemia) E78.5 HTN (hypertension) I10
[2022-05-16] MEDS: HEPARIN SODIUM/DEXTROSE 25,000 UNITS/500 ML BAG IV SCH (12:13)
[2022-05-16] MEDS: MAGNESIUM SULFATE / D5W 1 GM/100 ML BAG IV SCH ×2 (12:21→14:00)
--- NOTE | 2022-05-16 14:17 | Electrocardiogram Report ---
Test Reason : Blood Pressure : / mmHG Vent. Rate : 106 BPM Atrial Rate : 106 BPM P-R Int : 190 ms QRS Dur : 158 ms QT Int : 420 ms P-R-T Axes : 046 -08 052 degrees QTc Int : 557 ms Sinus tachycardia Right bundle branch block Abnormal ECG When compared with ECG of 23-JUN-2021 16:56, T wave inversion no longer evident in Inferior leads Confirmed by Kenrick Ruiz ([id number]) on 05/16/2022 2:17:31 PM Referred By: REFERRED SELF Confirmed By:Kenrick Ruiz
[2022-05-16] MEDS: FUROSEMIDE 40 MG/4 ML VIAL IV SCH (17:07)
--- NOTE | 2022-05-16 17:22 | XCELERA ---
[id number]
[2022-05-16 17:40] LABS: Partial Thromboplastin Ratio 1.3; Partial Thromboplastin Time 35.9 Seconds (21.0-31.0)
[2022-05-16] MEDS ORDERED: HEPARIN SOD (PORCINE) 1000 UNIT/ML IV ONE ×2 (18:00→19:00)
[2022-05-16] MEDS: METOPROLOL SUCC 25MG EXT REL TAB PO SCH (19:54)
[2022-05-16] MEDS: INSULIN DETEMIR FLEXPEN/FLEX TOUCH 100 UNITS/ML 3ML SQ SCH (21:18)
[2022-05-17 01:35] LABS: Partial Thromboplastin Ratio 1.7
[2022-05-17 01:38] LABS: Partial Thromboplastin Time 47.8 Seconds (21.0-31.0)
[2022-05-17] MEDS: HEPARIN SODIUM/DEXTROSE 25,000 UNITS/500 ML BAG IV SCH ×3 (04:00→19:14)
[2022-05-17 06:08] LABS: Hematocrit (blood only) 46.9 % (40.1-51.0); Mean Corpuscular Hemoglobin 30.2 pg (25.0-34.0); Mean Corpuscular Hgb Conc 34.1 g/dL (32.0-36.0); Mean Corpuscular Volume 88.5 fL (80.0-100.0); Mean Platelet Volume 11.7 fL (9.4-12.4); Platelet Count 148 K/uL (130-400); RDW Coefficient of Variation 12.1 % (11.5-14.5); RDW Standard Deviation 39.4 fL (36.4-46.3); White Blood Count 5.71 K/ul (4.8-10.8)
[2022-05-17 06:51] LABS: Lyme Ab IgG w/WB Rflx Negative (Negative); Lyme Ab IgM w/WB Rflx Negative (Negative)
[2022-05-17 06:52] LABS: Anion Gap 8 (3-11); BUN Creatinine Ratio 19.8 (10-20); Blood Urea Nitrogen 16 mg/dl (6-23); C Reactive Protein < 0.50 mg/dl (0-0.5); Carbon Dioxide 28 mmol/L (21-32); Chloride 103 mmol/L (98-107); Est GFR (African American) 127.1 ml/min; Est GFR (Non-African American) 109.6 ml/min; Glucose 126 mg/dl (70-99(Fasting)); Magnesium 1.6 mg/dl (1.7-2.4); Potassium 3.2 mmol/L (3.5-5.1); Sodium 139 mmol/L (136-145)
--- NOTE | 2022-05-17 07:32 | XRay Report ---
XR chest 1V portable CLINICAL HISTORY: shortness of breath COMPARISON STUDY: Chest radiograph and chest CT May 15, 2022. FINDINGS: There is no pneumothorax. Mild left basilar opacity is noted. Mild pulmonary edema persists . Small left pleural effusion has slightly decreased. Suspected small right pleural effusion is prese nt. Cardiomegaly is again noted. IMPRESSION: 1. Persistent pulmonary edema and small bilateral pleural effusions. 2. Mild left basilar opacity. 3. Cardiomegaly. ACT 112: Negative or not required by law. Electronically signed by: Jamir Traore M.D. 05/17/2022 7:30 AM
[2022-05-17] MEDS ORDERED: POTASSIUM CHLORIDE CRTAB 20 MEQ TABCR PO STA (07:48)
[2022-05-17] MEDS: INSULIN ASPART PER UNIT SC SCH ×4 (08:00→20:23)
[2022-05-17] MEDS: MAGNESIUM SULFATE / D5W 1 GM/100 ML BAG IV SCH ×3 (09:20→13:20)
[2022-05-17] MEDS: GABAPENTIN 100 MG CAP PO SCH ×3 (09:21→20:12)
[2022-05-17] MEDS: MAGNESIUM OXIDE 400 MG TAB PO SCH (09:21)
[2022-05-17] MEDS: POTASSIUM CHLORIDE CRTAB 20 MEQ TABCR PO SCH (09:21)
[2022-05-17] MEDS: lisinopril 20 MG TAB PO SCH (09:22)
[2022-05-17] MEDS: METOPROLOL SUCC 25MG EXT REL TAB PO SCH (09:22)
[2022-05-17] MEDS: FUROSEMIDE 40 MG/4 ML VIAL IV SCH ×2 (09:22→17:16)
[2022-05-17] MEDS: ATORVASTATIN 40 MG TAB PO SCH (09:22)
--- NOTE | 2022-05-17 09:59 | Cardiology Consultation ---
Date of Consultation May 17, 2022 Assessment & Plan (1) Cardiomyopathy: (2) New onset of congestive heart failure: (3) HFrEF (heart failure with reduced ejection fraction): (4) T2DM (type 2 diabetes mellitus): (5) HTN (hypertension): (6) Alcohol abuse: Plan 41-year-old man with multiple vascular risk factors (diabetes, hypertension, dyslipidemia, obesity) but no prior cardiac history who presents with new onset congestive heart failure and severely reduced left ventricular systolic function (EF=20-25% ). Etiology of cardiomyopathy uncertain, although he has multiple vascular risk factors he is relatively young. Given the severity of his cardiomyopathy, prudent to proceed with right and left heart cardiac catheterization to exclude occlusive coronary artery disease. No evidence of current ongoing ischemia and no wall motion abnormalities are somewhat heterogeneous, they are global and there are no areas of normal wall motion (weighing against ischemic cardiomyopathy). Other risk factors for cardiomyopathy include immoderate alcohol intake and vague family history of cardiac disease. Counseled regarding importance of alcohol abstinence given his severely reduced left ventricular systolic function. Monitor for withdrawal. If catheterization shows occlusive disease, revascularization may be warranted. Regardless of etiology, beta-blockade and/or afterload reduction are warranted, as BP allows. Agree with initiation of metoprolol succinate. If HR remains relatively elevated with low normal blood pressure could titrate this upward. If BP rises at all, would add carvedilol (initially at low-dose 3.125 mg twice daily) and titrate upward. Depending upon BP, can later determine whether he is an Entresto candidate as an outpatient. He appears euvolemic currently, therefore he would likely discharge on sliding scale weight-based diuretic regimen rather than routine diuretc dosing. Further recommendations based on cardiac catheterization results. History of Present Illness Reason for Consultation: Hx VSD, severe cardiomyopathy, PEs Requesting Physician: Gilberto Zurita MD Attending Physician: Gilberto Zurita MD History of Present Illness 41-year-old man with type 1 diabetes mellitus (on insulin), hypertension, mild obesity, immoderate alcohol intake, but no known cardiac history, who presents with subacute onset dyspnea on exertion, orthopnea, leg edema, and found to have severely reduced left ventricular systolic function (EF 20-25%) on echocardiogram as well as right leg DVT with pulmonary emboli. He denies significant chest discomfort at any time. He notes several months of worsening dyspnea on exertion, he used to be able to walk up several flights of stairs without difficulty but more recently has to stop due to profound fatigue and dyspnea. His sleep at night is restless and he had noted leg edema over the past week or so. No subjective palpitations, presyncope, or syncope. He notes some more distant relatives of presumed cardiac causes, no first-degree relatives with cardiac history. He notes that he was drinking a case of beer every 3 days for some period of time, more recently has cut back. He received furosemide 40 mg IV with good diuresis and feels much better this morning. Leg edema resolved and he notes no dyspnea at rest. As noted, no chest discomfort at any time. Allergies Allergy/AdvReac Type Severity Reaction Status Date / Time Sulfa (Sulfonamide Allergy Intermediate ITCHY/HOT Verified 05/15/22 19:59 Antibiotics) morphine AdvReac Intermediate Nausea Verified 05/15/22 19:59 Home Medications Medication Instructions Recorded Confirmed Type atorvastatin 40 mg tablet 40 mg PO QAM 06/23/21 05/15/22 History gabapentin 100 mg capsule 100 mg PO TID 06/23/21 05/15/22 History glipizide 5 mg tablet, extended 5 mg PO QAM 06/23/21 05/15/22 History release 24 hr insulin detemir U-100 100 unit/mL 45 unit subcut QPM 06/23/21 05/15/22 History (3 mL) subcutaneous pen (Levemir FlexTouch U-100 Insulin) lisinopril 20 mg tablet 20 mg PO QAM 06/23/21 05/15/22 History cyclobenzaprine 10 mg tablet 10 mg PO TID PRN muscle spasm #20 11/17/21 05/15/22 Rx tabs Patient History Medical History (Updated 05/17/22 @ 10:25 by Les Dietz MD) Dislocation of ankle, right, open (2020) Gastroparesis GERD (gastroesophageal reflux disease) History of kidney stones HLD (hyperlipidemia) TG 2049, TC 301 in 06/2019 HTN (hypertension) Open trimalleolar fracture (2020) Right bundle branch block T2DM (type 2 diabetes mellitus) Vitamin D deficiency 8.9 in 06/2019 Surgical History (Updated 05/17/22 @ 09:55 by Les Dietz MD) History of ankle surgery (2020) right ankle external fixator/I&D History of colonoscopy History of esophagogastroduodenoscopy (EGD) History of heart surgery (1983) VSD- age 3---no issues since surgery, 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 Aunt Cardiac disorder Other No family history of adverse response to anesthesia Denies family history of Ovarian cancer Prostate cancer Myocardial infarction Breast cancer Colorectal cancer Social History Smoking Status: Former smoker Age Started Using Tobacco: 16; Age Quit Using Tobacco: 26; packs per day: 0.5; Second Hand Exposure: No; Hx Alcohol Use: Yes Alcohol type: beer Hx Substance Use: No Preferred Language: Macedonian Communication Ability: Effective Visual Impairment: No Limitations Hearing Ability: Normal Warehouse Helper Required: No Beliefs That Will Affect Care: None marital status: Single Current Living Situation: Alone current occupational status: employed current occupation: [employer] How many Children do You have: 0 Other Information That Helps Us Care for You: No Feels Safe at Home: Yes Safety Concerns: Feels Safe At This Time Dental Care, Regularly: Yes Physical Activity Frequency: 3-4 Times per Week Assistive Devices: None Physical Exam Physical Exam: Adult white male who appears comfortable. BP normotensive. Pulse 90 bpm and regular. Unlabored respirations. Skin: no ecchymoses or generalized lesions. HEENT: unremarkable. Neck: Jugular is pulse at the clavicle at 90 degrees, no carotid bruits. Lungs: clear bilaterally, no crackles or wheezes. No accessory muscle use. Cardiac: regular rhythm, normal S1 and S2, 2/6 systolic ejection murmur left sternal border which is nonradiating, no diastolic murmur or obvious gallop or rub. Abdomen: benign. Extremities: Trace pretibial edema, pulses intact. Neurologic: normal affect and conversation, nonfocal. Results & Data ([facility]) Laboratory Results High-sensitivity troponin was negative. Potassium Was 3.2, otherwise normal electrolytes, BUN 16, creatinine 0.81. Initial BNP 590, repeat BNP 289. Diagnostic Findings Echocardiogram showed moderately dilated left ventricle with severely reduced systolic function (EF 20 to 25%). Global hypokinesis most marked in the anterior and inferoseptal regions. Mildly dilated right heart with reduced systolic function. Moderate mitral regurgitation with normal left atrial size. Moderate pulmonary hypertension. No prior studies for comparison. Serial chest x-rays and chest CT show mild congestive heart failure and small pleural effusions. Chest CT also showed bibasilar pulmonary emboli and venous Doppler showed right lower extremity DVT. ECG showed sinus tachycardia 106 bpm with right bundle branch block and nonspecific ST flattening. PG Care Time/CCT Total # of Minutes Spent Total Time Spent with Patient: Total time spent is greater than 50% in coordination of care (as documented) at patient's floor/unit and/or counseling patient: Coding Level of Care Code 60740 Inpt Consult Level 4 Diagnoses Cardiomyopathy I42.9 New onset of congestive heart failure I50.9 HFrEF (heart failure with reduced ejection fraction) I50.20 T2DM (type 2 diabetes mellitus) E11.9 HTN (hypertension) I10 Alcohol abuse F10.10
[2022-05-17 10:30] LABS: Partial Thromboplastin Ratio 1.6; Partial Thromboplastin Time 43.1 Seconds (21.0-31.0)
--- NOTE | 2022-05-17 11:18 | Hospitalist Progress Note ---
Date of Service May 17, 2022 Assessment & Plan (1) Pulmonary emboli: Plan: Unprovoked - given young age would warranted hypercoagulable workup, consider hematology referral Appears to have come from right lower extremity DVT IV heparin bolus and drip -continue until cardiac cath CT A/P, head and MRI brain all negative for emboli (2) HFrEF (heart failure with reduced ejection fraction): Plan: Associated pulmonary edema, orthopnea and PND TTE -severe presumably nonischemic cardiomyopathy pending cardiac cath to fully evaluate this. Continue Lasix 40 mg IV twice daily -aim for negative balance 1 to 2 L/day although this is difficult given he is on a heparin drip with intake 1 L/day just from this Strict I&Os, daily weight, fluid restrict 1200ml, low Na diet (3) Cardiomyopathy: Plan: Continue metoprolol succinate 25 mg p.o. daily (discussed with Dr. Dietz as initially had Coreg and has note but already started on this yesterday and okay to continue) and lisinopril 20 mg p.o. daily Planning on cardiac cath tomorrow. NPO after midnight. (4) Pleural effusion, bilateral: Plan: Secondary to heart failure as above. 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 (6) Right bundle branch block: Plan: This does not appear to be new therefore do not feel it is related to the pulmonary emboli as above. ? Related to previous ventricular septal defect and subsequent repair. (7) HLD (hyperlipidemia): Plan: Continue atorvastatin 40 mg p.o. every morning (8) HTN (hypertension): Plan: Continue lisinopril 20 mg p.o. every morning Plan VTE Prophylaxis -IV heparin Diet -heart healthy, type 2 diabetes, low-sodium, fluid restrict as above, n.p.o. after midnight Disposition - continued admission to PCU Admission and Anticipated Discharge Date Admission Date: May 15, 2022 Subjective Significant improvement in shortness of breath and especially orthopnea since admission. He denies any chest pain. Leg swelling improving per patient. No aegis console operator track available to do nonemergent cardiac cath today therefore diet ordered and the patient will be n.p.o. after midnight. Because of his intravenous heparin he has any negative balance approximately 300 mL in the last 24 hours. Review of Systems Review of Systems: All systems reviewed & are unremarkable except as noted in Subjective Physical Exam Constitutional: WD/WN, vitals as above Respiratory: normal respiratory effort; no respiratory distress Auscultation: + diminished lung sounds (Bibasal, improving); no crackles and no wheezes Cardiovascular: Rate/Rhythm: regular rhythm and + tachycardic Heart Sounds: no murmur Extremities: normal capillary refill and + pedal edema (1+ b/l equal pitting, possible mild improvement); no calf tenderness Gastrointestinal (Abdomen): normal bowel sounds, soft, nontender, no hepatosplenomegaly Skin: no rashes, warm and dry Neurologic: moves all extremities and awake; not confused Psychiatric: A+Ox3, euthymic affect Results & Data Results & Data ([facility]) Vital Signs (Past 12 Hours) Vital Signs Temp Pulse Pulse Resp BP Pulse Ox O2 Del Method 05/17/22 07:47 36.6 C 90 18 111/77 96 Room Air 05/17/22 07:35 88 05/17/22 07:20 Nasal Cannula 05/17/22 03:31 36.4 C L 82 20 111/79 98 Nasal Cannula 05/17/22 00:17 36.5 C 79 20 108/78 95 Room Air O2 Flow Rate 05/17/22 07:47 05/17/22 07:35 05/17/22 07:20 1 05/17/22 03:31 1 05/17/22 00:17 PG Care Time/CCT Total # of Minutes Spent Total Time Spent with Patient: Total time spent is greater than 50% in coordination of care (as documented) at patient's floor/unit and/or counseling patient: Coding Level of Care Code 25148 Subseq Hosp Care Lvl 3 Diagnoses Pulmonary emboli I26.99 HFrEF (heart failure with reduced ejection fraction) I50.20 Cardiomyopathy I42.9 Pleural effusion, bilateral J90 T2DM (type 2 diabetes mellitus) E11.9 Right bundle branch block I45.10 HLD (hyperlipidemia) E78.5 HTN (hypertension) I10
[2022-05-17 19:10] LABS: Partial Thromboplastin Ratio 1.5; Partial Thromboplastin Time 41.7 Seconds (21.0-31.0)
[2022-05-17] MEDS: ACETAMINOPHEN 325 MG TAB PO PRN (20:12)
[2022-05-17] MEDS: INSULIN DETEMIR FLEXPEN/FLEX TOUCH 100 UNITS/ML 3ML SQ SCH (20:31)
[2022-05-18 02:13] LABS: Partial Thromboplastin Ratio 2.1
[2022-05-18 02:21] LABS: Partial Thromboplastin Time 58.1 Seconds (21.0-31.0)
[2022-05-18] MEDS ORDERED: LIDOCAINE 1% LOCAL 20 ML VIAL ONE (06:48)
[2022-05-18] MEDS: INSULIN ASPART PER UNIT SC SCH ×4 (08:00→20:55)
[2022-05-18 08:04] LABS: BUN Creatinine Ratio 17.4 (10-20); Calcium 8.2 mg/dl (8.5-10.1); Creatinine Clr Calc Pharmacy 118.1 ml/min; Potassium 3.7 mmol/L (3.5-5.1)
[2022-05-18] MEDS: FUROSEMIDE 40 MG/4 ML VIAL IV SCH ×2 (08:20→17:21)
[2022-05-18] MEDS: GABAPENTIN 100 MG CAP PO SCH ×3 (08:26→20:40)
[2022-05-18] MEDS: MAGNESIUM OXIDE 400 MG TAB PO SCH (08:26)
[2022-05-18] MEDS: ATORVASTATIN 40 MG TAB PO SCH (08:26)
[2022-05-18] MEDS: lisinopril 20 MG TAB PO SCH (08:26)
[2022-05-18] MEDS: METOPROLOL SUCC 25MG EXT REL TAB PO SCH (08:26)
[2022-05-18] MEDS: POTASSIUM CHLORIDE CRTAB 20 MEQ TABCR PO SCH (08:27)
[2022-05-18] MEDS ORDERED: HEPARIN (PORCINE) 1000 UNIT/ML 10 ML (CATH LAB USE ONLY) ONE (09:15)
[2022-05-18] MEDS ORDERED: niCARdipine HCL INJ 2.5 MG/ML 10 ML AMP ONE (09:15)
[2022-05-18] MEDS ORDERED: fentaNYL citrate 100 MCG/2 ML VIAL ONE (09:16)
[2022-05-18] MEDS ORDERED: MIDAZOLAM HCL 1 MG/ML 2ML VIAL ONE (09:16)
--- NOTE | 2022-05-18 09:35 | Pre Anesthesia Assessment ---
Date of Service May 18, 2022 Pre Sedation Assessment Vital Signs Temp Pulse Pulse Resp BP BP Pulse Ox 05/18/22 09:22 94 H 20 104/79 95 05/17/22 19:15 05/18/22 07:20 97.9 F 88 17 107/76 97 05/17/22 23:49 97.5 F L 80 16 112/78 95 05/17/22 19:10 97.7 F 92 H 20 101/70 93 05/17/22 16:00 94 H 05/17/22 15:21 98.2 F 95 H 16 106/72 97 05/17/22 11:53 98.2 F 98 H 18 106/73 95 O2 Del Method O2 Flow Rate 05/18/22 09:22 Room Air 05/17/22 19:15 Room Air 05/18/22 07:20 Nasal Cannula 1 05/17/22 23:49 Room Air 05/17/22 19:10 Nasal Cannula 1 05/17/22 16:00 05/17/22 15:21 Room Air 05/17/22 11:53 Room Air Cardiovascular RRR, no murmur, no edema Respiratory normal respiratory effort, lungs clear to auscultation Pre-Sedation Airway Assessment Smoking Status: Former smoker Hx Sleep Apnea: No Hx Difficult Intubation: No Short, Thick Neck: No Thyromental Distance: > or= 3.5 Finger Breadths Oral Cavity: + WNL Mallampati Class: II ASA: ASA2 NPO Status Date of Last Intake of Fluids: 05/17/22 Time of Last Intake of Fluids: 18:00 Date of Last Intake of Solid Food: 05/17/22 Time of Last Intake of Solid Foods: 18:00 Procedure Planning Contraindications for Sedation: none Current Medications Reviewed: Yes Notes The planned sedation has been discussed with the patient. Informed Consent was obtained. I have identified the patient, determined the appropriateness of sedation and have assessed the patient immediately prior to the procedure. All medicine(s) and interventions are by my order.
--- NOTE | 2022-05-18 10:57 | Post Anesthesia Assessment ---
Date of Service May 18, 2022 Post Sedation Assessment Vital Signs Temp Pulse Pulse Resp BP BP Pulse Ox 05/18/22 08:00 05/18/22 09:22 94 H 20 104/79 95 05/17/22 19:15 05/18/22 07:20 97.9 F 88 17 107/76 97 05/17/22 23:49 97.5 F L 80 16 112/78 95 05/17/22 19:10 97.7 F 92 H 20 101/70 93 05/17/22 16:00 94 H 05/17/22 15:21 98.2 F 95 H 16 106/72 97 05/17/22 11:53 98.2 F 98 H 18 106/73 95 O2 Del Method O2 Flow Rate 05/18/22 08:00 Nasal Cannula 1 05/18/22 09:22 Room Air 05/17/22 19:15 Room Air 05/18/22 07:20 Nasal Cannula 1 05/17/22 23:49 Room Air 05/17/22 19:10 Nasal Cannula 1 05/17/22 16:00 05/17/22 15:21 Room Air 05/17/22 11:53 Room Air Recovery Score Activity: Moves 4 extremities Respiration: Deep Breath/Cough Circulation: +/-20% PreAnes Value Consciousness: Fully Awake Oxygen Saturation: O2 needed for >90% Discharge Sedation Level of Care: Fast Track Phase II Post Sedation Plan On clinical assessment, the patient appears to have tolerated the sedation without complications. Patient is recovering as anticipated. Patient will continue to be monitored by nursing and may be discharged when sedation discharge criteria are met per below protocol. Upon Completions of procedure up to 15 minutes continue every 5 minute vital signs and the P.A.R. score; then discharge to a Phase I or Fast Track to Phase II per the following guidelines: * Discharge Patient to appropriate Phase II area if PAR is 8 or greater or return to pre- procedure baseline. The post - procedure orders will be as directed. * If PAR score is less than 8 or not return to pre-procedure baseline then patient will follow Phase I monitoring till PAR is reached for Phase II. The Phase I may be done in procedure room or may call to secure a Phase I area. * If naloxone or flumazenil are used for reversal, hold in Phase I for continued monitoring from when last reversal dose was given for a minimum of 60 minutes or longer pending the nurse and/or physician discretion of patient condition before discharge to Phase II. Please call the Sedation Physician to re-evaluate and complete post-note for discharge to Phase II area. Do NOT discharge from procedure sedation or Phase 1 until post- sedation evaluation note is complete by procedure /sedation MD Sedation Discharge Instructions to be given to the patient at discharge to home.
--- NOTE | 2022-05-18 11:14 | Cardiac Catheterization ---
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 Clerk Cardiac Status Clinical evaluation leading to the procedure CAD Presenation: Sx unlikely to be ischemic Diagnostic Physicians Name: Edward Benjamin MD Closure Device Recommendations: Medical Therapy and/or Counseling Cardiac Cath Procedure Full Procedure Date May 18, 2022 Pre-Procedure Diagnosis Pre-Procedure Diagnosis: Cardiomyopathy AUC Score AUC Score: 7 Post-Procedure Diagnosis Post-Procedure Diagnosis: Normal Coronary Arteries and Elevated Intracardiac Pressures Procedure(s) Performed Procedure(s) Performed: Coronary Angiography, Left Heart Cath, Right Heart Cath and Ultrasound Guided Vascular Access Manager Internship Edward Benjamin MD Biostatistics Teacher(s) [place] Estimated Blood Loss Estimated Blood Loss: 10 Medication(s) Medication(s): Fentanyl, Heparin, Lidocaine 1%, Nicardipine, Nitroglycerin and Versed Summary of Findings Indication: New severe LV dysfunction, cardiomyopathy Access: 6Fr right radial artery under ultrasound guidance, 6Fr right basilic vein under ultrasound guidance Catheters: Windber, JL3.5, JR4, swan Findings: LM - Normal caliber, no significant disease LAD - Medium caliber, mid segment luminal irregularities. Remainder of vessel without significant disease and extends to apex. Small to medium D1, D2 without disease. Circumflex - Gives off large high OM1. OM1 without disease. Remainder of small AV groove circumflex without disease. RCA - Dominant, large caliber, angiographically normal. RA 9 RV 33/8 PA 31/23 (26) PAWP 21 LVEDP 23 PaSat 61% AoSat 91% Michi CO/CI 4.7/2.3 Thermo CO/CI 4.7/2.3 Arterial Closure: TR band Summary: 1. Essentially normal coronary arteries 2. Elevated left and right-sided filling pressures 3. Preserved cardiac output 4. Borderline pulmonary hypertension (post capillary) Recommendations: Continue GDMT for nonischemic cardiomyopathy Continue diuresis Hemodynamics Rest Ao:: 85/60/69 Final Ao: 78/56/72 LV: 82/23 Recommendations Recommendations: Medical Therapy and/or Counseling Specimens Specimens: None Radiation Exposure (mGy) 1211 Contrast (mls) 45 Anesthesia Moderate 2622-2089 Procedural Complication(s) None Disposition Business Mail Entry Clerk Holding/Recovery I attest to the content of the Intraoperative Record and any orders documented therein. Any exceptions are noted below. [employer] Card Cath Procedure Codes Cardiac Catheterization Procedure 1: Cardiovascular Cath Procedures: 44924 Coronaries & LHC (+/-LV) & RHC Therapeutic Services & Ancillary Proc Procedure 1: Cardiovascular Tx and Anc Procedures: 26139 Ultrasonic Guidance Vascular Access Procedure 2: Cardiovascular Tx and Anc Procedures: 82627 Ultrasonic Guidance Vascular Access Moderate Sedation Procedure 1: Sedation/Anesthesia: 90991 Mod Sedation by the same physician;Init15 Min Child Age 5 & Up Procedure 2: Sedation/Anesthesia: 76389 Mod Sedation by the same physician; Ea [id number] Minutes PG Care Time/CCT Total # of Minutes Spent Total Time Spent with Patient: Total time spent is greater than 50% in coordination of care (as documented) at patient's floor/unit and/or counseling patient:
[2022-05-18] MEDS: HEPARIN SODIUM/DEXTROSE 25,000 UNITS/500 ML BAG IV SCH (12:43)
--- NOTE | 2022-05-18 14:08 | Hospitalist Progress Note ---
Date of Service May 18, 2022 Assessment & Plan (1) Pulmonary emboli: Plan: Unprovoked - given young age would warranted hypercoagulable workup, consider hematology referral Appears to have come from right lower extremity DVT although unclear reason why he got it here. Switch IV heparin to Xarelto following cardiac catheterization CT A/P, head and MRI brain all negative for emboli (2) HFrEF (heart failure with reduced ejection fraction): Plan: Associated pulmonary edema, orthopnea and PND TTE - global hypokinesia, LVEF 20-25% Increase Lasix to 80mg IV BID to aim negative balance 1-2L daily, hopefully switching heparin IV will help with this. Strict I&Os, daily weight, fluid restrict 1200ml, low Na diet (3) Non-ischemic cardiomyopathy: Plan: Continue metoprolol succinate 25 mg p.o. daily (discussed with Dr. Dietz as initially had Coreg and has note but already started on this yesterday and okay to continue) Will reduce lisinopril 10 mg p.o. daily as needing higher doses of Lasix and BP low, would prefer to up titrate metoprolol given need for better rate control (4) Pleural effusion, bilateral: Plan: Secondary to heart failure as above. (5) T2DM (type 2 diabetes mellitus): Plan: HbA1c 10.5 Continue his usual Levemir 45 units at night Hold glipizide and switch from NovoLog for carb coverage and correction: --Goal BSG Range: Low 110 mg/dL, High 140 mg/dL --Correction Factor: 20 mg/dL/unit --Carbohydrate ratio = 6 g/unit --BSGs ACHS if eating, q6h if npo tobacco educator - agree with switching glipizide to SGLT2 inhibitor as an outpatient. (6) Right bundle branch block: Plan: This does not appear to be new therefore do not feel it is related to the pulmonary emboli as above. ? Related to previous ventricular septal defect and subsequent repair. (7) HLD (hyperlipidemia): Plan: Continue atorvastatin 40 mg p.o. every morning (8) HTN (hypertension): Plan: Continue lisinopril 10 mg p.o. every morning, metoprolol succinate 25mg PO daily Plan VTE Prophylaxis -IV heparin Diet -heart healthy, type 2 diabetes, low-sodium, fluid restrict as above, n.p.o. after midnight Disposition - continued admission to PCU Admission and Anticipated Discharge Date Admission Date: May 15, 2022 Subjective Feeling mild improvement daily although I&Os actually positive yesterday 276 ml with heparin drip contributing significantly towards intake. No chest pain. Cardiac cath showing no coronary artery disease. Review of Systems Review of Systems: All systems reviewed & are unremarkable except as noted in Subjective Physical Exam Constitutional: WD/WN, vitals as above Respiratory: normal respiratory effort; no respiratory distress Auscultation: no diminished lung sounds, no crackles and no wheezes Cardiovascular: Rate/Rhythm: regular rhythm and + tachycardic Heart Sounds: no murmur Extremities: normal capillary refill and + pedal edema (trace pre- tibial); no calf tenderness Musculoskeletal: no cyanosis or clubbing, extremities motor strength 5/5 Skin: no rashes, warm and dry Neurologic: moves all extremities and awake; not confused Psychiatric: A+Ox3, euthymic affect Results & Data Results & Data ([facility]) Vital Signs (Past 12 Hours) Vital Signs Temp Pulse Resp BP BP Pulse Ox O2 Del Method 05/18/22 12:59 93 H 20 90/62 L 93 Room Air 05/18/22 12:29 92 H 20 112/74 98 Room Air 05/18/22 11:59 99 H 20 106/71 93 Room Air 05/18/22 11:44 86 20 89/71 L 94 Room Air 05/18/22 11:29 88 20 101/72 94 Room Air 05/18/22 11:14 36.5 C 90 20 91/70 L 97 Room Air 05/18/22 08:00 Nasal Cannula 05/18/22 09:22 94 H 20 104/79 95 Room Air 05/18/22 07:20 36.6 C 88 17 107/76 97 Nasal Cannula O2 Flow Rate 05/18/22 12:59 05/18/22 12:29 05/18/22 11:59 05/18/22 11:44 05/18/22 11:29 05/18/22 11:14 05/18/22 08:00 1 05/18/22 09:22 05/18/22 07:20 1 PG Care Time/CCT Total # of Minutes Spent Total Time Spent with Patient: Total time spent is greater than 50% in coordination of care (as documented) at patient's floor/unit and/or counseling patient: Coding Level of Care Code 79293 Subseq Hosp Care Lvl 2 Diagnoses Pulmonary emboli I26.99 HFrEF (heart failure with reduced ejection fraction) I50.20 Non-ischemic cardiomyopathy I42.8 Pleural effusion, bilateral J90 T2DM (type 2 diabetes mellitus) E11.9 Right bundle branch block I45.10 HLD (hyperlipidemia) E78.5 HTN (hypertension) I10
[2022-05-18] MEDS ORDERED: HEPARIN STOP ORDER ONE (17:00)
[2022-05-18] MEDS: RIVAROXABAN 15 MG TAB PO SCH (17:19)
[2022-05-18] MEDS: INSULIN DETEMIR FLEXPEN/FLEX TOUCH 100 UNITS/ML 3ML SQ SCH (20:45)
[2022-05-19 06:52] LABS: iSTAT Arterial Blood Gas HCO3 27 meg/L (19-24); iSTAT Arterial Blood Gas pCO2 47 mmHg (35-46); iSTAT Arterial Blood Gas pH 7.37 (7.35-7.45); iSTAT Arterial Blood Gas pO2 33 mmHg (80-95); iSTAT Carbon Dioxide 29 mmol/L (24-31)
[2022-05-19 07:12] LABS: Partial Thromboplastin Ratio 1.1; Partial Thromboplastin Time 30.7 Seconds (21.0-31.0)
[2022-05-19 07:25] LABS: Anion Gap 8 (3-11); Blood Urea Nitrogen 15 mg/dl (6-23); Calcium 8.2 mg/dl (8.5-10.1); Carbon Dioxide 26 mmol/L (21-32); Chloride 103 mmol/L (98-107); Creatinine Clr Calc Pharmacy 128.1 ml/min; Est GFR (African American) 128.4 ml/min; Est GFR (Non-African American) 110.8 ml/min; Glucose 105 mg/dl (70-99(Fasting)); Sodium 137 mmol/L (136-145)
[2022-05-19] MEDS ORDERED: lisinopril 10 MG TAB PO SCH (09:00)
[2022-05-19] MEDS: INSULIN ASPART PER UNIT SC SCH ×3 (09:07→17:07)
[2022-05-19] MEDS: ATORVASTATIN 40 MG TAB PO SCH (09:08)
[2022-05-19] MEDS: METOPROLOL SUCC 25MG EXT REL TAB PO SCH (09:08)
[2022-05-19] MEDS: GABAPENTIN 100 MG CAP PO SCH ×2 (09:08→13:53)
[2022-05-19] MEDS: RIVAROXABAN 15 MG TAB PO SCH ×2 (09:08→17:08)
[2022-05-19] MEDS: POTASSIUM CHLORIDE CRTAB 20 MEQ TABCR PO SCH (09:08)
[2022-05-19] MEDS: FUROSEMIDE 40 MG/4 ML VIAL IV SCH ×2 (09:09→17:08)
[2022-05-19] MEDS: MAGNESIUM OXIDE 400 MG TAB PO SCH (09:09)
[2022-05-19] MEDS: HEPARIN SODIUM/DEXTROSE 25,000 UNITS/500 ML BAG IV SCH (10:53)
--- NOTE | 2022-05-19 12:47 | Cardiology Progress Note ---
Date of Service May 19, 2022 Assessment & Plan (1) Non-ischemic cardiomyopathy: (2) New onset of congestive heart failure: (3) HFrEF (heart failure with reduced ejection fraction): (4) T2DM (type 2 diabetes mellitus): (5) HTN (hypertension): (6) Alcohol abuse: (7) Pulmonary emboli: Plan 41-year-old man with new onset congestive heart failure and severely reduced left ventricular systolic function (EF=20-25% ). Fortunately, he had normal coronary arteries at catheterization. However, his filling pressures remain elevated while his systolic blood pressure is low normal/mildly hypotensive. Given borderline hypotension agree with reduction in lisinopril dosing, would a lso reduce his diuretic dose to avoid risk of hypovolemia exacerbating his hypotension. He likely chronically will run a low BP due to his cardiomyopathy, fortunately he does not appear to be hypoperfusing (normal mentation, no diaphoresis, distal pulses intact, skin warm). Given his elevated filling pressure suspect he will need some diuretic but important not to overdiurese as an outpatient. Recommend discharge on furosemide 40 mg every other day. If weight gain more than 2 to 3 pounds would increase furosemide to daily dosing, if weight gain on furosemide 40 mg daily dosing would increase furosemide to 60 mg daily. If weight loss of more than 3 pounds would hold diuretic. Follow-up in heart failure clinic within 1 week to reassess volume status and BP. Emphasized to him the importance of alcohol abstinence, since immoderate alcohol consumption is a potential etiology for his cardiomyopathy. On rivaroxaban for pulmonary embolism, unclear whether this would be considered provoked/unprovoked and therefore uncertain whether he will require long-term anticoagulation. If in fact the pulmonary embolism was provoked by low output state, would certainly continue anticoagulation as long as his systolic function is severely reduced. No role for aspirin since he has no vascular disease and is on rivaroxaban. If he can ambulate without orthostatic symptoms, should be okay for discharge. Admission and Anticipated Discharge Date Admission Date: May 15, 2022 Subjective He felt well today, no chest pain, dyspnea, palpitations, or lightheadedness. Cardiac catheterization yesterday showed normal coronary arteries and elevated right and left heart filling pressures. Physical Exam Physical Exam: No distress. BP 99/65 mmHg. Pulse 80-95 bpm range. Skin: no ecchymoses or generalized lesions. HEENT: unremarkable. Neck: Jugular is pulse at the clavicle at 90 degrees, no carotid bruits. Lungs: clear bilaterally, no crackles or wheezes. No accessory muscle use. Cardiac: regular rhythm, normal S1 and S2, 2/6 systolic ejection murmur left sternal border which is nonradiating, no diastolic murmur or obvious gallop or rub. Abdomen: benign. Extremities: No pretibial edema, pulses intact. Neurologic: normal affect and conversation, nonfocal. Results & Data ([facility]) Vital Signs (Past 12 Hours) Vital Signs Temp Pulse Resp BP BP Pulse Ox O2 Del Method 05/19/22 11:28 99.3 F 95 H 18 99/65 L 97 Room Air 05/19/22 07:52 97.7 F 90 16 93/65 L 94 Room Air 05/19/22 04:06 81 90/60 L 05/19/22 03:40 97.7 F 83 16 74/52 L 95 Room Air Laboratory Results Normal electrolytes with potassium 3.8, BUN 15, creatinine 0.79. PG Care Time/CCT Total # of Minutes Spent Total Time Spent with Patient: Total time spent is greater than 50% in coordination of care (as documented) at patient's floor/unit and/or counseling patient: Coding Level of Care Code 98595 Subseq Hosp Care Lvl 3 Diagnoses Non-ischemic cardiomyopathy I42.8 New onset of congestive heart failure I50.9 HFrEF (heart failure with reduced ejection fraction) I50.20 T2DM (type 2 diabetes mellitus) E11.9 HTN (hypertension) I10 Alcohol abuse F10.10 Pulmonary emboli I26.99
[2022-05-19] MEDS: ACETAMINOPHEN 325 MG TAB PO PRN (16:14)
--- NOTE | 2022-05-19 18:06 | Discharge Summary ---
Date of Service May 19, 2022 Admission HPI Per Admitting Provider Man Day is a 41 year old male who presents to the ER Shortness of breath. He reports first noticing shortness of breath 4 weeks ago and progressively getting worse since that time. Worse on lying flat and associated paroxysmal nocturnal dyspnea. No palpitations, claudication, presyncope or syncope. Associated left sided abdominal pain. No nausea, vomiting, diarrhea, constipation. Never had COVID-19 of the vaccination. In the ER d-dimer was elevated [address] chest angiogram confirmed bilateral pulmonary emboli. He denies any personally or family history of blood clots. No recent surgeries, long haul flights or long car journeys. He does report heart problems including MIs and heart failure run in his family. As a child he had what sounds like a ventricular septal defect which was s urgically repaired at 3 years old with no heart problems since then per patient. He was started on intravenous heparin for bilateral pulmonary emboli and referred to medicine for admission ongoing management of this. Principal Diagnosis acute pulmonary emboli Discharge Exam Constitutional: WD/WN, vitals as above Respiratory: normal respiratory effort; no respiratory distress Auscultation: no diminished lung sounds, no crackles and no wheezes Cardiovascular: Rate/Rhythm: regular rhythm and + tachycardic Heart Sounds: no murmur Extremities: normal capillary refill and + pedal edema (trace pre- tibial); no calf tenderness Musculoskeletal: no cyanosis or clubbing, extremities motor strength 5/5 Skin: no rashes, warm and dry Neurologic: moves all extremities and awake; not confused Psychiatric: A+Ox3, euthymic affect Discharge Data Allergies Allergy/AdvReac Type Severity Reaction Status Date / Time Sulfa (Sulfonamide Allergy Intermediate ITCHY/HOT Verified 05/15/22 19:59 Antibiotics) morphine AdvReac Intermediate Nausea Verified 05/15/22 19:59 Consultations 05/15/22 19:05 ED Decision to Admit Stat 05/16/22 18:24 Consult Cardiology Routine Procedures Performed Operation Date: 05/18/22 09:30 Actual Procedures p Cineradiography w/Routine Exam - Callum Benjamin MD p Cath, Right and Left Heart - Callum Benjamin MD s Ultrasound Vascular Access - Callum Benjamin MD Ordered Studies 05/15/22 16:21 CT angio chest PE protocol Stat 05/15/22 19:08 US leg [US venous doppler LE BI] Urgent 05/15/22 19:27 CT Abd and Pelvis [CT abd pelvis IV con only] Stat 05/15/22 19:29 MRI Brain [MR brain wo con] Urgent 05/15/22 19:37 CT head/brain wo con Stat 05/18/22 07:04 CL Cath Imgs for PACS use only Routine Diabetes Follow up Diabetes Follow-up Needed for HgbA1c >9% Hospital Course (1) Pulmonary emboli: Unprovoked - given young age would warranted hypercoagulable workup, consider hematology referral Appears to have come from right lower extremity DVT although unclear reason why he got it here. Switch IV heparin to Xarelto following cardiac catheterization: cath showed: Summary: 1. Essentially normal coronary arteries 2. Elevated left and right-sided filling pressures 3. Preserved cardiac output 4. Borderline pulmonary hypertension (post capillary) Recommendations: Continue GDMT for nonischemic cardiomyopathy Continue diuresis CT A/P, head and MRI brain all negative for emboli (2) HFrEF (heart failure with reduced ejection fraction): Plan: Associated pulmonary edema, orthopnea and PND TTE - global hypokinesia, LVEF 20-25% Increase Lasix to 80mg IV BID to aim negative balance 1-2L daily, hopefully switching heparin IV will help with this. Strict I&Os, daily weight, fluid restrict 1200ml, low Na diet (3) Non-ischemic cardiomyopathy: Plan: Continue metoprolol succinate 25 mg p.o. daily (discussed with Dr. Dietz as initially had Coreg and has note but already started on this yesterday and okay to continue) Will reduce lisinopril 10 mg p.o. daily as needing higher doses of Lasix and BP low, would prefer to up titrate metoprolol given need for better rate control Appreciate input from cardio: Given borderline hypotension agree with reduction in lisinopril dosing, would also reduce his diuretic dose to avoid risk of hypovolemia exacerbating his hypotension. He likely chronically will run a low BP due to his cardiomyopathy, fortunately he does not appear to be hypoperfusing (normal mentation, no diaphoresis, distal pulses intact, skin warm). Given his elevated filling pressure suspect he will need some diuretic but important not to overdiurese as an outpatient. Recommend discharge on furosemide 40 mg every other day. If weight gain more than 2 to 3 pounds would increase furosemide to daily dosing, if weight gain on furosemide 40 mg daily dosing would increase furosemide to 60 mg daily. If weight loss of more than 3 pounds would hold diuretic. Follow-up in heart failure clinic within 1 week to reassess volume status and BP. Emphasized to him the importance of alcohol abstinence, since immoderate alcohol consumption is a potential etiology for his cardiomyopathy. On rivaroxaban for pulmonary embolism, unclear whether this would be considered provoked/unprovoked and therefore uncertain whether he will require long-term anticoagulation. If in fact the pulmonary embolism was provoked by low output state, would certainly continue anticoagulation as long as his systolic function is severely reduced. No role for aspirin since he has no vascular disease and is on rivaroxaban. (4) Pleural effusion, bilateral: Plan: Secondary to heart failure as above. 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 will defer this change to PCP. (6) Right bundle branch block: Plan: This does not appear to be new therefore do not feel it is related to the pulmonary emboli as above. ? Related to previous ventricular septal defect and subsequent repair. (7) HLD (hyperlipidemia): Plan: Continue atorvastatin 40 mg p.o. every morning (8) HTN (hypertension): Plan: Continue lisinopril 10 mg p.o. every morning, metoprolol succinate 25mg PO daily (2) HFrEF (heart failure with reduced ejection fraction): (3) Non-ischemic cardiomyopathy: (4) Pleural effusion, bilateral: (5) T2DM (type 2 diabetes mellitus): (6) Right bundle branch block: (7) HLD (hyperlipidemia): (8) HTN (hypertension): Total Time Total Time Spent Total Time Spent (In Minutes): 35 Discharge Plan Discharge Items Patient Disposition: Home - Self-Care Reason For Visit: CHF, BILATERAL PULMONARY EMBOLI Discharge Diagnosis: CHF, bilateral pulmonary emboli Activity: Resume your previous activity Non-emergency contact: Primary Care Provider Call non-emergency contact if: you have any medication questions Follow-up/Referrals: Illig,Jolanta M., PA-C [Physician Kickboxing Instructor] - 05/26/22 10:30 am PCP,NO [Primary Care Provider] - Diet: Low Sodium (2gm) Addtl Attending Provider Instructions: You will need a followup with your PCP in 1-2 weeks. Need followup with your heart failure clinic in 1 week. Call your Primary Care doctor if any of the following symptoms or problems start or get worse: * Shortness of breath or difficulty breathing * Wake up at night short of breath * Chest pain * Cough * Swelling of your hands, feet, or legs * More fatigued or tired with your normal activity * Palpitations - sudden fast heart beats WEIGHT * Weigh yourself every morning after using the bathroom. * Use the same scale. * Wear the same amount of clothing. * Write your weight down on a chart. * Call your Primary Care doctor if you gain more than 2-3 pounds in 1-2 days. MEDICATIONS * Use this discharge instruction sheet for medication instructions. * Take your medications at the time your doctor ordered. * Do not skip a dose of your medicines. * If you miss a dose of medicine, take it as soon as possible, but DO NOT DOUBLE A DOSE. * Read your medicine information when you get home. * Know all of the side effects of your medicine. If in doubt, ask your pharmacist * Call your Primary Care doctor's office if you have any side effects. * Be sure all of your doctors know what medicine and herbs you take (including cold, flu, and herbal medicine). Take the following with you to your follow-up doctor appointments: * Weight Chart * Medication List * List of questions Do not drink excessive alcohol, beer or wine. Pending Studies at Discharge: No Stand-Alone Forms: My [facility] [employer], Smoking Cessation Medications and DC Order Prescriptions: New Xarelto 15 mg Tablet 15 mg PO BIDM 19 Days Qty: 38 0RF Rx Instructions: Take with food furosemide [Lasix] 40 mg tablet 40 mg PO Q OTHER DAY Qty: 30 0RF lisinopril 10 mg Tablet 10 mg PO QAM Qty: 30 0RF metoprolol succinate 25 mg Tablet Extended Release 24 Hr 25 mg PO QAM Qty: 30 0RF potassium chloride 20 mEq Tablet,Er Particles/Crystals 20 meq PO .every other day Qty: 30 0RF magnesium oxide 400 mg (241.3 mg magnesium) Tablet 400 mg PO QAM Qty: 14 0RF thiamine HCl (vitamin B1) 50 mg tablet 25 mg PO DAILY Qty: 15 0RF Continued cyclobenzaprine 10 mg tablet 10 mg PO TID PRN (Reason: muscle spasm) Qty: 20 0RF atorvastatin 40 mg tablet 40 mg PO QAM glipizide 5 mg tablet extended release 24hr 5 mg PO QAM Rx Instructions: TAKE 30 MINUTES PRIOR TO A MEAL. gabapentin 100 mg capsule 100 mg PO TID Levemir FlexTouch U-100 Insuln 100 unit/mL (3 mL) insulin pen 45 unit SUBCUT QPM Discontinued lisinopril 20 mg tablet 20 mg PO QAM Discharge Orders: Discharge Order (Routine); Ordered 05/19/22 Ordered By: Thomas Hassan Admission Data Admit Date/Time: 05/15/22 19:01 Attending Provider: Thomas Hassan Admit Provider: Gilberto Zurita Primary Care Provider: PCP,NO Other Providers: Gilberto Zurita ; Kenrick Ruiz Other Interventions: Discharge Summary Assessment (RN) Last Done: 05/19/22 16:00 Coding Level of Care Code D/C DAY MANAGEMENT >30 MINS Diagnoses Pulmonary emboli I26.99 HFrEF (heart failure with reduced ejection fraction) I50.20 Non-ischemic cardiomyopathy I42.8 Pleural effusion, bilateral J90 T2DM (type 2 diabetes mellitus) E11.9 Right bundle branch block I45.10 HLD (hyperlipidemia) E78.5 HTN (hypertension) I10
[2022-05-20 15:14] LABS: iSTAT Arterial Blood Gas HCO3 25 meg/L (19-24); iSTAT Arterial Blood Gas pCO2 39 mmHg (35-46); iSTAT Arterial Blood Gas pO2 61 mmHg (80-95); iSTAT Carbon Dioxide 26 mmol/L (24-31)
--- NOTE | 2022-05-23 08:30 | Coding Query ---
CONGESTIVE HEART FAILURE To Promote full compliance with coding requirements relating to patient care, physician participation is requested in all cases of medical radiation dosimetrist uncertainty. Please assist us with the following questions. A diagnosis of Congestive Heart Failure is documented in the patient's medical record. To accurately code this diagnosis and to compare patient severity, we ask that you specify the type of heart failure by placing an X within the parenthesis (x). * Pt adm with PE , SoB and new onsete CHF. Cardiac Consult 05/17 , new onset systolic heart failure. In ED Dimer elevated at 2076. Thanks for your help! BHARGAVI Mckeon [facility] SYSTOLIC HEART FAILURE ( ) Acute ( ) Chronic ( x) Acute on Chronic ( ) Rheumatic ( ) Unknown DIASTOLIC HEART FAILURE ( ) Acute ( ) Chronic ( ) Acute on Chronic ( ) Rheumatic ( ) Unknown COMBINED SYSTOLIC AND DIASTOLIC HEART FAILURE ( ) Acute ( ) Chronic ( ) Acute on Chronic ( ) Rheumatic ( ) Unknown Was the CHF Present On Admission? Please check the appropriate box: ( ) Present on Admission ( ) Not Present On Admission ( ) Clinically undetermined Thank you Gonzales COLLINS
== END 2022-05-19 18:30 | disposition home or self-care (01) | DRG 175 ==
LOC: ED 14:03 → EDINP 19:01 → SUATTDRO 19:01 → 2S 22:34

== ENCOUNTER 2023-11-18 22:51 | Inpatient (IN) ==
--- OUTSIDE RECORDS SUMMARY | 2023-11-18 22:56 | External Medical Summary | Summary of Care ---
Author Name Unknown Organization [facility] Address [address] [place] [address] Phone [phone] Care Team Providers Care Spray Worker Name Role Phone Dany Caruso MD Primary Care Provide r Reason for Visit * Reason Comments Dosage Adjustment In Person (Anticoag Cl inic) Congestive Heart Failure Hypertension Encounter Details Date Type Department Care Team (Late st Contact Info) Description 10/20/2023 9:00 AM [facility] Cardiology, [facility] [address] [facility] [place] [address] [facility] Cardiology [facility] [address] [facility] [place] [address] HFrEF (heart failure with reduced ejection fraction) ([facility])*; Hyperlipidemia with target LDL less than 70 Allergies Active Allergy Reactions Criticality Noted Date Comments Morphine 12/27/2013 Nausea, vomiting, diaphoresis Sulfa Antibiotics Itching 10/04/2011 documented as of this encounter (statuses as of 10/20/2023) Medications Medication Sig Dispensed Refills Start Date End Date Status OneTouch Verio w/Device KitIndications:Type 2 diabetes mellitus with hemoglobin A1c goal of less than 7.0% ([facility]) Use to test once a day E11.9 1 Kit 0 03/23/2022 Active OneTouch UltraSoft LancetsIndications: Type 2 diabetes mellitus with hemoglobin A1c goal of less than 7.0% ([facility]) Use to test twice a day. E11.9 360 Each 1 03/23/2022 Active Budesonide-Formoter ol Fumarate 80-4.5 MCG/ACT Inhalation Aerosol (Symbicort)Indicati ons:SOB (shortness of breath) Inhale by mouth 2 Puffs in the morning AND 2 Puffs before bedtime. 10.2 g 1 05/10/2022 Active Thiamine HCl 50 MG Oral Tablet Take 0.5 Tablets by mouth in the morning. 0 05/20/2022 Active Magnesium Oxide (Elemental) 400 MG Oral Tablet Take by mouth 400 mg daily . 0 05/20/2022 Active BD Pen Needle Imelda U/F 32G X 4 MM (Insulin Pen Needle)Indications: Type 2 diabetes mellitus with autonomic neuropathy, unspecified whether mcc insulin use (HCC) Use with insulin once daily 100 Each 1 06/29/2022 Active Sacubitril-Valsarta n 24-26 MG Oral Tablet (Entresto) Take 1 Tablet by mouth in the morning and 1 Tablet before bedtime. 0 Active OneTouch Verio In Vitro Strip (Glucose Blood)Indications:T ype 2 diabetes mellitus with hemoglobin A1c goal of less than 7.0% ([facility]) Use to test blood sugar twice a day. E11.9 200 Strip 3 08/31/2022 Active Cyclobenzaprine HCl 10 MG Oral Tablet (Flexeril)Indicatio ns:Shoulder strain, left, initial encounter Take 1 Tablet (10 mg) by mouth at bedtime as needed for Muscle spasms. 10 Tablet 0 09/20/2022 Active FreeStyle Kirit 2 SensorIndications:T ype 2 diabetes mellitus with hemoglobin A1c goal of less than 7.0% ([facility]) Use as directed. Use to check glucose 3 times a day DXe11.9 2 Each 3 12/07/2022 Active Pantoprazole Sodium 40 MG Oral Tablet Delayed Release (Protonix)Indicatio ns:Gastroesophageal reflux disease without esophagitis Take 1 Tablet by mouth in the morning. 30 minutes before the first meal of the day. Do not crush, split or chew the tablet. 30 Tablet 5 05/18/2023 Active glipiZIDE ER 10 MG Oral Tablet Extended Release 24 Hour (glipiZIDE XL)Indications:Type 2 diabetes mellitus with hemoglobin A1c goal of less than 7.0% (HCC) Take 1 Tablet by mouth in the morning. 30 minutes before a meal.. 30 Tablet 5 05/31/2023 Active Insulin Glargine Solostar 100 UNIT/ML Subcutaneous Solution Pen-injector (Lantus SoloStar) Inject 45 Units under the skin daily. 15 mL 5 08/30/2023 Active Gabapentin 100 MG Oral Capsule (Neurontin)Indicati ons:Neuropathy TAKE 1 CAPSULE BY MOUTH IN THE MORNING AND 1 CAPSULE AT NOON AND 1 CAPSULE BEFORE BEDTIME 270 Capsule 1 08/30/2023 Active Atorvastatin Calcium 40 MG Oral Tablet (Lipitor)Indication s:High triglycerides Take 1 Tablet by mouth in the morning. 30 Tablet 3 09/15/2023 Active hydroCHLOROthiazide 25 MG Oral Tablet (Hydrodiuril)Indica tions:HTN, goal below 130/80 Take 1 Tablet by mouth in the morning. 30 Tablet 2 09/15/2023 Active Spironolactone 25 MG Oral Tablet (Aldactone)Indicati ons:HFrEF (heart failure with reduced ejection fraction) (HCC) Take 1 Tablet by mouth in the morning. 30 Tablet 3 10/06/2023 Active Fenofibrate 145 MG Oral Tablet (Tricor)Indications :High triglycerides Take 1 Tablet by mouth in the morning. 30 Tablet 3 10/06/2023 Active Losartan Potassium 25 MG Oral Tablet (Cozaar)Indications :HFrEF (heart failure with reduced ejection fraction) (HCC) Take 1 Tablet by mouth in the morning. 30 Tablet 1 10/11/2023 Active Ezetimibe 10 MG Oral Tablet (Zetia)Indications: Hyperlipidemia with target LDL less than 70 Take 1 Tablet by mouth in the morning. 90 Tablet 3 10/20/2023 Active Metoprolol Succinate ER 50 MG Oral Tablet Extended Release 24 Hour (toPROL XL)Indications:HFrE F (heart failure with reduced ejection fraction) (HCC) Take 1 Tablet by mouth in the morning. 30 Tablet 5 10/20/2023 Active Metoprolol Succinate 25 MG Oral Capsule ER 24 Hour SprinkleIndications :HTN, goal below 130/80 Take 25 mg by mouth in the morning. 34 Capsule 11 09/15/2023 3 Discontinue d(Medicatio n/Dose Changed) documented as of this encounter (statuses as of 10/20/2023) Active Problems Problem Noted Date Diagnosed Date Neuropathy 01/18/2023 Gastro-esophageal reflux disease without esophag itis 12/19/2022 Alcohol abuse, uncomplicated 12/19/2022 History of alcohol abuse 06/29/2022 HFrEF (heart failure with reduced ejection fract ion) 05/25/2022 Acute pulmonary embolism without acute cor pulmo nale 05/25/2022 Gastroparesis 05/06/2021 Other proteinuria 04/08/2021 High triglycerides 04/08/2021 Type 2 diabetes mellitus wit h hemoglobin A1c goal of less than 7.0% 04/07/2021 HTN, goal below 130/80 04/07/2021 Controlled substance agreement signed 09/08/2016 documented as of this encounter (statuses as of 10/20/2023) Resolved Problems Problem Noted Date Diagnosed Date Resolved Date Type 2 diabetes mellitus wit h autonomic neuropathy 06/29/2022 12/19/2022 Neuropathy 04/07/2021 12/19/2022 Diabetic ketoacidosis withou t coma associated with type 2 diabetes mellitus 04/07/2021 05/06/2021 Overview: 02/2021 Fatigue 11/13/2011 05/10/2022 Esophageal reflux 10/04/2011 04/07/2021 documented as of this encounter (statuses as of 10/20/2023) Immunizations Name Administration Dates Next Due Seasonal Influenza, Split, IIV3, With Preserve, Inj 10/04/2011 TDAP (age 11 and older)(Adacel) 08/15/2011 documented as of this encounter Social History Tobacco Use Types Packs/Day Years Used Date Smoking Tobacco: Former Cigarettes 1 4 Q uit: 10/23/2007 Smokeless Tobacco: Never Alcohol Use Standard Drinks/Week Comments Yes 0 (1 standard drink = 0.6 oz pur e alcohol) Around holidays PHQ-2 Answer Date Recorded PHQ Adult Total Score 0 08/31/2022 Hunger Vital Sign Answer Date Recorded Within the past 12 months, y ou worried that your food would run out before you got the money to buy more. Never true 04/07/20 21 Within the past 12 months, t he food you bought just didn't last and you didn't have money to get more. Never true 04/07/2021 Sex and Gender Information Value Date Recorded Sex Assigned at Not on file Gender Identity Not on file Sexual Orientation Not on file Job Start Date Occupation Industry Not on file Not on file Not on file documented as of this encounter Progress Notes * Darcy Sepulveda, Anny Lee 10/19/2023 6:54 PM EST PHARMACY CHRONIC DISEASE MANAGEMENT - HEART FAILURE After connecting to the patient via telephone, the patient was identified by name and date of . Patient was then informed that this was a telephone call only visit. The patient agreed to participate. Visit Disposition: Routine follow-up Total call duration was 15 minutes. Man Day is an 43 year old patient referred to the Heart Failure MTM clinic by Joaquina Hernández CRNP for the following: General heart failure medication optimization Lipid management PCP: Dany Caruso MD Cardiology Provider: Joaquina Hernández CRNP Esthetics Instructor: Not currently active with case management Urgent HF Access: Reviewed the following treatment locations for urgent HF symptoms with patient and provided them with contact information Cardiology based urgent heart failure clinic, [facility] [phone] HPI: Patient has heart failure assessment: Heart failure with REDUCED ejection fraction (SYStolic heart failure) without ischemic heart disease Patient has evidence of RV dysfunction: No Most recent LVEF: 35 % Date: 06/16/23 Modality: Echo Previous LVEF: 25 % Date: unknown Modality: unknown was following with [facility] vitals: Does patient monitor BP at home? no Any dizziness or lightheadedness: some but "not dramatic" - mostly when sitting up or turning Home BP log results: Does patient monitor HR at home? no Home HR log results: Does patient monitor weight at home? yes Any increased edema or shortness of breath: gastroparesis - chronic abdomen swelling otherwise no edema; SOB daily still Home weight log results: Stable Objective: BP Readings from Last 3 Encounters: 10/06/23 176/107 09/15/23 168/96 06/15/23 130/80 Pulse Readings from Last 3 Encounters: 10/06/23 80 09/15/23 84 06/15/23 90 Wt Readings from Last 3 Encounters: 09/15/23 101.4 kg (223 lb 8 oz) 06/15/23 101.6 kg (224 lb) 05/18/23 102.2 kg (225 lb 6.4 oz) Lab Results Component Value Date/Time CREATININE - [facility] 0.9 10/13/2023 01:25 PM CREATININE - [facility] 0.8 05/18/2023 01:36 PM CREATININE - [facility] 0.8 02/16/2023 01:54 PM CREATININE - [facility] 1.1 09/08/2016 02:32 PM CREATININE - [facility] 0.9 06/09/2015 03:06 PM CREATININE - [facility] 0.7 05/09/2011 05:00 PM CREATININE, RANDOM URINE - [facility] 50 05/18/2023 01:36 PM CREATININE, RANDOM URINE - [facility] 199 07/06/2022 12:48 PM CREATININE, RANDOM URINE - [facility] 151 03/24/2022 08:44 AM Lab Results Component Value Date/Time SODIUM - [facility] 136 10/13/2023 01:25 PM SODIUM - [facility] 135 05/18/2023 01:36 PM SODIUM - [facility] 137 02/16/2023 01:54 PM SODIUM - [facility] 143 09/08/2016 02:32 PM SODIUM - [facility] 144 06/09/2015 03:06 PM SODIUM - [facility] 141 05/09/2011 05:00 PM SODIUM, RANDOM URINE - [facility] 178 06/09/2015 03:06 PM Lab Results Component Value Date/Time POTASSIUM - [facility] 4.9 10/13/2023 01:25 PM POTASSIUM - [facility] 4.2 05/18/2023 01:36 PM POTASSIUM - [facility] 4.0 02/16/2023 01:54 PM POTASSIUM - [facility] 4.3 09/08/2016 02:32 PM POTASSIUM - [facility] 4.0 06/09/2015 03:06 PM POTASSIUM - [facility] 3.6 05/09/2011 05:00 PM POTASSIUM, RANDOM URINE - [facility] 28.8 06/09/2015 03:06 PM No results found for: "DIG" Lab Results Component Value Date/Time HGB - [facility] 16.6 05/26/2022 08:22 AM HGB - [facility] 17.6 (H) 05/10/2022 08:08 AM HGB - [facility] 16.7 04/07/2021 03:56 PM HGB - [facility] 15.8 05/09/2011 05:00 PM HGB - [facility] 15.4 04/04/2011 12:00 PM HGB - [facility] 15.5 01/17/2008 10:35 AM No results found for: "FERRITIN" Lab Results Component Value Date/Time IRON - FERNANDA 44 (L) 06/09/2015 03:06 PM IRON BINDING CAPACITY - FERNANDA 267 06/09/2015 03:06 PM Lab Results Component Value Date/Time IRON BINDING CAPACITY - FERNANDA 267 06/09/2015 03:06 PM No results found for: "TRANSFERRIN" Diet Review: not reviewed Current Cardiac Medication(s): Atorvastatin 40 mg daily Metoprolol succinate 25 mg daily- restarted 09/15/23 HCTZ 25 mg daily HOLD Entresto 24-26 mg BID---applying for PAP- held 10/12/23 START spironolactone 25 mg daily- Started 10/05/23 START fenofibrate 145 mg daily - Started 10/05/23 Losartan 25 mg daily- only until Entresto improved; started 10/12/23 Diabetes medications: Insulin glargine 45 units daily- switched from Levemir on 08/29/23 Glipizide ER 10 mg daily Eligible for [employer] pharmacy? Agree or Declined? Not reviewed Assessment & Plan: HFrEF -LVEF slightly improved -repeat ECHO in 6 months post Cardio visit on 09/15/23 -Cost assistance for Entresto 24-26 mg BID ([employer] PAP application in process) -Temporary use of Losartan 25 mg daily until Entresto improved -Increase metoprolol XL 50 mg daily Started spironolactone on 10/06. Pt also was switched from Entresto to Losartan on 10/11 temporarily while [employer] PAP application is under review. Pt agreeable to drop of proof of income. BMP on 10/13 shows stable kidney fn with K on higher end of normal. Of note, pt states he is working on getting disability, hopes to have in the next month. Pt is not monitoring BP and HR at home. Pt stated he has not picked up new monitor. Re-educated pt on importance to monitor BP and HR. Informed him that can provide him BP monitor if cannot afford. Pt agreeable to obtain BP and HR monitor. HR in office in 80-90s. Will increase metoprolol XL to 50 mg daily. Informed pt to use supply on hand by taking 2 tablets of 25 mg daily. Rx for 50 mg daily was sent to pharmacy when pt runs out of current supply. Pt demonstrates understanding. Uncontrolled Dyslipidemia - Target LDL <70 -Most recent LDL increased to 101 -TG increased to 1204 -pt has hx of hypertriglyceridemia (highest in 2020 at 2295) -Continue Atorvastatin and fenofibrate -Start Zetia 10 mg daily -Repeat lipid panel 3 months TG increased to 1204. Started Fenofibrate 145 mg daily on 10/06. Will continue this and atorvastatin. Also will work with pt on diabetes control to help with lowering of TG levels. LDL elevated upon repeat at 101. Will start Zetia 10 mg once daily. Will repeat lipid panel in 3 months. Pt agreeable to plan. Educated patient on ezetimibe (Zetia). Explained that this medication works by inhibiting absorption of cholesterol. Educated patient on possible side effects such as diarrhea and myalgia. 3. Uncontrolled T2DM -Stopped following with [facility] in Aug due to cost -Most recent A1c 10% -Encouraged pt to test BG at home in order to titrate insulin -Intolerant to Metformin-severe abdominal pain Most recent A1c improved to 10%. However, this is reflective of pt being on Lantus for 1-2 months. Pt could not provide BS readings today as he was not home. Encouraged pt to start testing at least every morning or every other morning. Provided pt BS log sheet previous visit. Do not feel comfortable adjusting insulin without BS trends. Also do not feel comfortable increasing Glipizide with concomitant insulin use due to risk of hypoglycemia. Would not consider GLP1s at this time due to increased risk of pancreatitis and hx of gastroparesis. Jardiance is also not ideal due to risk of UTIs/yeast infections with elevated A1c. Would be ideal to titrate insulin with BS trends. History of alcohol dependence -Pt aware of increased risk of pancreatitis with elevated TG >500 4. Uncontrolled HTN -Goal BP <130/80 -Titrate HF medications -Encouraged pt to start monitoring vitals at home 5. History of acute PE -05/2022 Medication changes: Atorvastatin 40 mg daily INCREASE Metoprolol succinate 50 mg daily- restarted 09/15/23 HCTZ 25 mg daily HOLD Entresto 24-26 mg BID---applying for PAP- held 10/12/23 spironolactone 25 mg daily- Started 10/05/23 Fenofibrate 145 mg daily - Started 10/05/23 Losartan 25 mg daily- only until Entresto improved; started 10/12/23 Diabetes medications: Insulin glargine 45 units daily- switched from Levemir on 08/29/23 Glipizide ER 10 mg daily Labs Due: Lipid panel 01/12/24 (not ordered yet -remind me sent to order) A1c 01/12/24 UACR 05/18/24 Follow up: 2 weeks Darcy Sepulveda [facility] Clinical Pharmacist Medication Therapy Disease Management 10/19/2023,6:55 PM documented in this encounter Plan of Treatment Upcoming Encounters Date Type Department Care Team (Late st Contact Info) Description 11/03/2023 10:30 AM EST Telemedicine Cardiology, [facility] [address] [place] [address] [facility] Cardiology [facility] [address] [place] [address] 11/20/2023 2:00 PM EST Office Visit Family Medicine [address] [place] [phone] Dany Caruso MD [address] [place] [address] [place] [address] 03/20/2024 8:30 AM EDT [facility] [address] [place] [address] Joaquina Hernández CRNP [address] [place] [address] Health Maintenance Due Date Last Done Comments Hepatitis B (1 of 3 - 3-dose series) 1979 COVID-19 Vaccine (#1) 1979 Pneumococcal Vaccine: Pediatrics (0 to 5 Years) and At-Risk Patients (6 to 64 Years) (1 - PCV) 1985 HIV Screening 1994 Hepatitis C Screening 1997 DTaP,Tdap,and Td Vaccines (2 - Td or Tdap) 08/15/2021 08/15/2011 Diabetic Eye Exam 05/02/2023 05/02/2022, , 04/07/2021 Influenza Vaccine (FLU shot) (#1) 2023 10/04/2011 Depression Screening 08/31/2023 08/31/2022 *NEPHROLOGY REFERRAL DUE TO RESISTANT HTN 10/08/2023 Diabetic Foot Exam 12/19/2023 12/19/2022, 05/06/2021 HbA1c 04/13/2024 10/13/2023, 04/23, 12/06/2022, Additional history exists Albumin/Creatinine Ratio 05/18/2024 023, 07/06/2022, 03/24/2022, Additional history exists GFR 10/13/2024 10/13/2023, 04/23, 02/16/2023, Additional history exists Lipid Panel 10/13/2028 10/13/2023, 04/23, 03/24/2022, Additional history exists GARDASIL-HPV IMMUNIZATION SERIES Aged Out No longer eligible based on patient's age to complete this topic MENINGOCOCCAL (MENACTRA/MENVEO) Aged Out No longer eligible based on patient's age to complete this topic documented as of this encounter Medical Devices Not on filedocumented as of this encounter Visit Diagnoses Diagnosis HFrEF (heart failure with reduced ejection fraction) (HCC)- Primary Hyperlipidemia with target LDL less than 70 Other and unspecified hyperlipidemia documented in this encounter Care Teams Spray Worker Relationship Specialty Start Date End Date Dany Caruso MD [address] [place] [address] [place] [id number] PCP - General Family Medicine 04/07/21 documented as of this encounter
--- OUTSIDE RECORDS SUMMARY | 2023-11-18 22:56 | External Medical Summary | Summary of Care ---
Author Name Unknown Organization [facility] Address [address] [place] [address] Phone [phone] Care Team Providers Care Review Manager Name Role Phone Dany Caruso MD Primary Care Provide r Reason for Visit * Reason Onset Date Comments Medication Problem 11/03/2023 No insurance/ running out of insulin. Unintentional weight loss Encounter Details Date Type Department Care Team (Late st Contact Info) Description 11/03/2023 Telephone Cardiology, [facility] [address] [facility] [address] Medication Problem (No insurance/running o... Allergies Active Allergy Reactions Criticality Noted Date Comments Morphine 12/27/2013 Nausea, vomiting, diaphoresis Sulfa Antibiotics Itching 10/04/2011 documented as of this encounter (statuses as of 11/06/2023) Medications Medication Sig Dispensed Refills Start Date End Date Status OneTouch Verio w/Device KitIndications:Type 2 diabetes mellitus with hemoglobin A1c goal of less than 7.0% ([facility]) Use to test once a day E11.9 1 Kit 0 03/23/2022 Active OneTouch UltraSoft LancetsIndications: Type 2 diabetes mellitus with hemoglobin A1c goal of less than 7.0% ([facility]) Use to test twice a day. 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 0 Active OneTouch Verio In Vitro Strip (Glucose Blood)Indications:T ype 2 diabetes mellitus with hemoglobin A1c goal of less than 7.0% ([facility]) Use to test blood sugar twice a day. E11.9 200 Strip 3 08/31/2022 Active Cyclobenzaprine HCl 10 MG Oral Tablet (Flexeril)Indicatio ns:Shoulder strain, left, initial encounter Take 1 Tablet (10 mg) by mouth at bedtime as needed for Muscle spasms. 10 Tablet 0 09/20/2022 Active FreeStyle Kirit 2 SensorIndications:T ype 2 diabetes mellitus with hemoglobin A1c goal of less than 7.0% ([facility]) Use as directed. Use to check glucose [...] hemoglobin A1c goal of less than 7.0% ([facility]) Take 1 Tablet by mouth in the morning. 30 minutes before a meal.. 30 Tablet 5 05/31/2023 Active Gabapentin 100 MG Oral Capsule (Neurontin)Indicati [...] :HFrEF (heart failure with reduced ejection fraction) ([facility]) Take 1 Tablet by mouth in the morning. 30 Tablet 1 10/11/2023 Active Ezetimibe 10 MG Oral Tablet (Zetia)Indications: Hyperlipidemia with target LDL less than 70 Take 1 Tablet by mouth in the morning. 90 Tablet 3 10/20/2023 Active Metoprolol Succinate ER 50 MG Oral Tablet Extended Release 24 Hour (toPROL XL)Indications:HFrE F (heart failure with reduced ejection fraction) ([facility]) Take 1.5 Tablets by mouth in the morning. 45 Tablet 5 11/03/2023 Active Insulin NPH (Human) (Isophane) 100 UNIT/ML Subcutaneous Suspension (NovoLIN N) Inject 18 Units under the skin in the morning and 18 Units before bedtime. 10 mL 5 11/06/2023 Active Insulin Syringe 31G X 5/16" 0.3 ML Use to inject insulin twice daily. E11.9 60 Each 5 11/06/2023 Active Insulin Glargine Solostar 100 UNIT/ML Subcutaneous Solution Pen-injector (Lantus SoloStar) Inject 45 Units under the skin daily. 15 mL 5 08/30/2023 4 Discontinue d(Medicatio n List Clean Up) documented as of this encounter (statuses as of 11/06/2023) Active Problems Problem Noted Date Diagnosed Date [...] as of this encounter (statuses as of 11/06/2023) Resolved Problems Problem Noted Date Diagnosed Date Resolved Date Type 2 diabetes mellitus wit h autonomic neuropathy 06/29/2022 12/19/2022 Neuropathy 04/07/2021 12/19/2022 Diabetic ketoacidosis withou t coma associated with type 2 diabetes mellitus 04/07/2021 05/06/2021 Overview: 02/2021 Fatigue 11/13/2011 05/10/2022 Esophageal reflux 10/04/2011 04/07/2021 documented as of this encounter (statuses as of 11/06/2023) Immunizations Name Administration Dates Next Due Seasonal [...] on file documented as of this encounter Miscellaneous Notes * Telephone Encounter - Becca Phillips [facility] - 11/06/2023 10:54 AM EST Great! I called pt to make aware. He is agreeable. He said he thinks he knows how to use vials/syringe but will call if he needs any help Becca Mancini Clinical Pharmacist Cardiology 11/06/2023,10:54 AM * Telephone Encounter - Dany Caruso MD - 11/06/2023 10:47 AM EST Medication sent - will assess the response during clinic visit on 11/20 * Telephone Encounter - Becca Phillips [facility] - 11/06/2023 9:46 AM EST Yes I think NPH 18 units sounds reasonable! I have pended the prescription as my referral is only for CHF management Becca Mancini Clinical Pharmacist Cardiology 11/06/2023,9:46 AM * Telephone Encounter - Becca Phillips [facility] - 11/03/2023 10:[address] Saenz, I am an MTM pharmacist seeing this patient for CHF management. He is seeing yo at the end of this month. There are two things I wanted to let you know about. Patient reports unintentional weight loss. Has lost about 15 lbs since end August. He states he just doesn't feel hungry. Admits his mood is down as he has a lot of health issues and currently is unable to work. He feels he has trouble walking because his legs are so skinny Patient is currently without insurance. Reports he is almost out of insulin (Taking lantus 45 unitsdaily). He will not be able to afford a refill. He is asking what to do. Could consider switching him to NPH vials which are cheaper until patient has insurance back Thank you! Becca Phillips Pharm D Clinical Pharmacist Cardiology 11/03/2023,10:51 AM documented in this encounter Plan of Treatment Upcoming Encounters Date Type Department Care Team (Late st Contact Info) Description 11/20/2023 2:00 PM EST Office Visit Family Medicine [address] [place] [phone] Dany Caruso MD [address] [place] [address] [place] [address] 11/21/2023 10:00 AM EST [place] [address] [place] [address] [facility] Cardiology [address] [place] [address] 03/20/2024 8:30 AM EDT Office [facility], [facility] [place] [address] Joaquina Hernández CRNP [address] [place] [address] Health Maintenance Due Date Last Done Comments [...] Not on filedocumented as of this encounter Care Teams Review Manager Relationship Specialty Start Date End Date Dany Caruso MD [address] [place] [address] [place] [phone] PCP - General Family Medicine 04/07/21 documented as of this encounter
--- OUTSIDE RECORDS SUMMARY | 2023-11-18 22:56 | External Medical Summary | Summary of Care ---
Author Name Unknown Organization [facility] Address [address] [place] [address] Phone [phone] Care Team Providers Care Rim Turning Machine Operator Name Role Phone Dany Caruso MD Primary Care Provide r Reason for Visit * Reason Onset Date Comments Medication Problem 11/03/2023 No insurance/ running out of insulin. Unintentional weight loss Encounter Details Date Type Department Care Team (Late st Contact Info) Description 11/03/2023 Telephone Cardiology, [facility] 132 [facility] [address] [facility] [address] Medication Problem (No insurance/running o... Allergies Active Allergy Reactions Criticality Noted Date Comments Morphine 12/27/2013 Nausea, vomiting, diaphoresis Sulfa Antibiotics Itching 10/04/2011 documented as of this encounter (statuses as of 11/06/2023) Medications Medication Sig Dispensed Refills Start Date End Date Status OneTouch Verio w/Device KitIndications:Type 2 diabetes mellitus with hemoglobin A1c goal of less than 7.0% ([facility]) Use to test once a day E11.9 1 Kit 0 03/23/2022 Active OneTouch UltraSoft LancetsIndications: Type 2 diabetes mellitus with hemoglobin A1c goal of less than 7.0% ([facility]) Use to test twice a day. 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 0 Active OneTouch Verio In Vitro Strip (Glucose Blood)Indications:T ype 2 diabetes mellitus with hemoglobin A1c goal of less than 7.0% ([facility]) Use to test blood sugar twice a day. E11.9 200 Strip 3 08/31/2022 Active Cyclobenzaprine HCl 10 MG Oral Tablet (Flexeril)Indicatio ns:Shoulder strain, left, initial encounter Take 1 Tablet (10 mg) by mouth at bedtime as needed for Muscle spasms. 10 Tablet 0 09/20/2022 Active FreeStyle Kirit 2 SensorIndications:T ype 2 diabetes mellitus with hemoglobin A1c goal of less than 7.0% ([facility]) Use as directed. Use to check [...] hemoglobin A1c goal of less than 7.0% ([facility]) Take 1 Tablet by mouth in the [...] :HFrEF (heart failure with reduced ejection fraction) ([facility]) Take 1 Tablet by mouth in the morning. 30 Tablet 1 10/11/2023 Active Ezetimibe 10 MG Oral Tablet (Zetia)Indications: Hyperlipidemia with target LDL less than 70 Take 1 Tablet by mouth in the morning. 90 Tablet 3 10/20/2023 Active Metoprolol Succinate ER 50 MG Oral Tablet Extended Release 24 Hour (toPROL XL)Indications:HFrE F (heart failure with reduced ejection fraction) ([facility]) Take 1.5 Tablets by mouth in the [...] Notes * Telephone Encounter - Becca Phillips [facility] - 11/06/2023 10:54 AM EST Great! I [...] 11/20 * Telephone Encounter - Becca Phillips [facility] - 11/06/2023 9:46 AM EST Yes I think NPH 18 units sounds reasonable! I have pended the prescription as my referral is only for CHF management Becca Mancini Clinical Pharmacist Cardiology 11/06/2023,9:46 AM * Telephone Encounter - Becca Phillips [facility] - 11/03/2023 10:[address] Saenz, [...] 2:00 PM EST Office Visit Family Medicine [address] [place] [phone] Dany Caruso MD [address] [place] [address] [place] [phone] 11/21/2023 10:00 AM EST [place]icine [place] [address] [place] [address] [facility] Cardiology [address] [place] [address] 03/20/2024 8:30 AM EDT Office Visit Cardiology, [facility] [place] [address] Joaquina Hernández CRNP [address] [place] [address] Health Maintenance Due Date Last Done Comments [...] filedocumented as of this encounter Care Teams Rim Turning Machine Operator Relationship Specialty Start Date End Date Dany Caruso MD [address] [place] [address] [place] [phone] PCP - General Family Medicine 04/07/21 documented as of this encounter
--- OUTSIDE RECORDS SUMMARY | 2023-11-18 22:56 | External Medical Summary | Summary of Care ---
Author Name Unknown Organization [facility] Address [address] [place] [address] Phone [phone] Care Team Providers Care Web Services Manager Name Role Phone Dany Caruso MD Primary Care Provide r Reason for Visit * Reason Comments Dosage Adjustment In Person (Anticoag Cl inic) Congestive Heart Failure Hypertension Encounter Details Date Type Department Care Team (Late st Contact Info) Description 10/20/2023 9:00 AM [facility] Cardiology, [facility] [place] [address] [facility] Cardiology [facility] 132 [facility] [place] [address] HFrEF (heart failure with reduced ejection fraction) ([facility])*; Hyperlipidemia with target LDL less than 70 Allergies Active Allergy Reactions Criticality Noted Date Comments Morphine 12/27/2013 Nausea, vomiting, diaphoresis Sulfa Antibiotics Itching 10/04/2011 documented as of this encounter (statuses as of 10/20/2023) Medications Medication Sig Dispensed Refills Start Date End Date Status OneTouch Verio w/Device KitIndications:Type 2 diabetes mellitus with hemoglobin A1c goal of less than 7.0% ([facility]) Use to test once a day E11.9 1 Kit 0 03/23/2022 Active OneTouch UltraSoft LancetsIndications: Type 2 diabetes mellitus with hemoglobin A1c goal of less than 7.0% ([facility]) Use to test twice a day. E11.9 [...] diabetes mellitus with autonomic neuropathy, unspecified whether snf insulin use (HCC) Use with insulin once daily 100 Each 1 06/29/2022 Active Sacubitril-Valsarta n 24-26 MG Oral Tablet (Entresto) Take 1 Tablet by mouth in the morning and 1 Tablet before bedtime. 0 Active OneTouch Verio In Vitro Strip (Glucose Blood)Indications:T ype 2 diabetes mellitus with hemoglobin A1c goal of less than 7.0% ([facility]) Use to test blood sugar twice a day. E11.9 200 Strip 3 08/31/2022 Active Cyclobenzaprine HCl 10 MG Oral Tablet (Flexeril)Indicatio ns:Shoulder strain, left, initial encounter Take 1 Tablet (10 mg) by mouth at bedtime as needed for Muscle spasms. 10 Tablet 0 09/20/2022 Active FreeStyle Kirit 2 SensorIndications:T ype 2 diabetes mellitus with hemoglobin A1c goal of less than 7.0% ([facility]) Use as directed. Use to check glucose [...] on file documented as of this encounter Plan of Treatment Upcoming Encounters Date Type Department Care Team (Jourdan santillan Contact Info) Description 11/03/2023 10:30 AM EST Telemedicine Cardiology, [facility] [address] [place] [address] [facility] Cardiology [facility] [address] [place] [address] 11/20/2023 2:00 PM EST Office Visit Family Medicine [address] [place] [address] Dany Caruso MD [address] [place] [address] [place] [address] 03/20/2024 8:30 AM EDT Office Visit Cardiology, [facility] [address] [place] [address] Joaquina Hernández CRNP 132 [facility] [place] [address] Health Maintenance Due Date Last Done Comments [...] hyperlipidemia documented in this encounter Care Teams Web Services Manager Relationship Specialty Start Date End Date Dany Caruso MD [address] [place] [address] [place] [phone] PCP - General Family Medicine 04/07/21 documented as of this encounter
--- OUTSIDE RECORDS SUMMARY | 2023-11-18 22:56 | External Medical Summary | Summary of Care ---
Author Name Unknown Organization [facility] Address [address] [place] [address] Phone [phone] Care Team Providers Care Dyno Technician Name Role Phone Dany Caruso MD Primary Care Provide r Reason for Visit * Reason Comments Dosage Adjustment Via Phone (anticoag Cl inic) Congestive Heart Failure Encounter Details Date Type Department Care Team (Late st Contact Info) Description 11/03/2023 10:30 AM [facility] Cardiology, [facility] [place] [address] [facility] Cardiology [facility] 132 [facility] [place] [address] HFrEF (heart failure with reduced ejection fraction) ([facility])* Allergies Active Allergy Reactions Criticality Noted Date Comments Morphine 12/27/2013 Nausea, vomiting, diaphoresis Sulfa Antibiotics Itching 10/04/2011 documented as of this encounter (statuses as of 11/03/2023) Medications Medication Sig Dispensed Refills Start Date End Date Status OneTouch Verio w/Device KitIndications:Type 2 diabetes mellitus with hemoglobin A1c goal of less than 7.0% ([facility]) Use to test once a day E11.9 1 Kit 0 03/23/2022 Active OneTouch UltraSoft LancetsIndications: Type 2 diabetes mellitus with hemoglobin A1c goal of less than 7.0% ([facility]) Use to test twice a day. 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 0 Active OneTouch Verio In Vitro Strip (Glucose Blood)Indications:T ype 2 diabetes mellitus with hemoglobin A1c goal of less than 7.0% ([facility]) Use to test blood sugar twice a day. E11.9 200 Strip 3 08/31/2022 Active Cyclobenzaprine HCl 10 MG Oral Tablet (Flexeril)Indicatio ns:Shoulder strain, left, initial encounter Take 1 Tablet (10 mg) by mouth at bedtime as needed for Muscle spasms. 10 Tablet 0 09/20/2022 Active FreeStyle Kirit 2 SensorIndications:T ype 2 diabetes mellitus with hemoglobin A1c goal of less than 7.0% ([facility]) Use as directed. Use to check glucose [...] failure with reduced ejection fraction) (HCC) Take 1.5 Tablets by mouth in the morning. 45 Tablet 5 11/03/2023 Active Metoprolol Succinate ER 50 MG Oral Tablet Extended Release 24 Hour (toPROL XL)Indications:HFrE F (heart failure with reduced ejection fraction) ([facility]) Take 1 Tablet by mouth in the morning. 30 Tablet 5 10/20/2023 Discontinue d(Refill) documented as of this encounter (statuses as of 11/03/2023) Active Problems Problem Noted Date Diagnosed Date [...] as of this encounter (statuses as of 11/03/2023) Resolved Problems Problem Noted Date Diagnosed Date Resolved Date Type 2 diabetes mellitus wit h autonomic neuropathy 06/29/2022 12/19/2022 Neuropathy 04/07/2021 12/19/2022 Diabetic ketoacidosis withou t coma associated with type 2 diabetes mellitus 04/07/2021 05/06/2021 Overview: 02/2021 Fatigue 11/13/2011 05/10/2022 Esophageal reflux 10/04/2011 04/07/2021 documented as of this encounter (statuses as of 11/03/2023) Immunizations Name Administration Dates Next Due Seasonal [...] on file documented as of this encounter Patient Instructions * Patient Instructions* Becca Phillips RPh - 11/03/2023 10:57 AM EST Increase Metoprolol Er to 75 mg daily for your heart documented in this encounter Progress Notes * Becca Phillips RPh - 11/03/2023 10:33 AM EST PHARMACY CHRONIC DISEASE MANAGEMENT - HEART FAILURE After connecting to the patient via telephone, the patient was identified by name and date of . Patient was then informed that this was a telephone call only visit. The patient agreed to participate. Visit Disposition: Routine follow-up Total call duration was 14 minutes. Man Day is an 43 year old patient referred to the Heart Failure MTM clinic by Joaquina Hernández CRNP for the following: General heart failure medication optimization Lipid management PCP: Dany Caruso MD Cardiology Provider: Joaquina Hernández CRNP Digital Account Manager: Not currently active with case management Urgent HF Access: Reviewed the following treatment locations for urgent HF symptoms with patient and provided them with contact information Cardiology based urgent heart failure clinic, [facility] [phone] HPI: Patient has heart failure assessment: Heart failure with REDUCED ejection fraction (SYStolic heart failure) without ischemic heart disease Patient has evidence of RV dysfunction: No Most recent LVEF: 35 % Date: 06/16/23 Modality: Echo Previous LVEF: 25 % Date: unknown Modality: unknown was following with [place] halfway vitals: Does patient monitor BP at home? no Any dizziness or lightheadedness: Denies Home BP log results: Does not have cuff Does patient monitor HR at home? no Home HR log results: Does not have cuff Does patient monitor weight at home? yes Any increased edema or shortness of breath: denies any new edema; SOB stable Home weight log results: Took while on phone: 208 lbs Losing weight unintentionally Reports he doesn't feel hungry Objective: BP Readings from Last 3 Encounters: [...] Lab Results Component Value Date/Time IRON - [facility] 44 (L) 06/09/2015 03:06 PM IRON BINDING CAPACITY - [facility] 267 06/09/2015 03:06 PM Lab Results Component Value Date/Time IRON BINDING CAPACITY - [facility] 267 06/09/2015 03:06 PM No results found for: "TRANSFERRIN" Diet Review: not reviewed Current Cardiac Medication(s): Atorvastatin 40 mg daily Metoprolol succinate 50 mg daily- restarted 09/15/23; increased 10/20/23 HCTZ 25 mg daily HOLD Entresto 24-26 mg BID---applying for PAP- held 10/12/23 spironolactone 25 mg daily- Started 10/05/23 Fenofibrate 145 mg daily - Started 10/05/23 Losartan 25 mg daily- only until Entresto improved; started 10/12/23 Diabetes medications: Insulin glargine 45 units daily- switched from Levemir on 08/29/23 Glipizide ER 10 mg daily Eligible for [facility] pharmacy? Agree or Declined? Not reviewed Assessment & Plan: HFrEF -LVEF slightly improved -repeat ECHO in 6 months post Cardio visit on 09/15/23 -Cost assistance for Entresto 24-26 mg BID ([employer] PAP application in process) -Temporary use of Losartan 25 mg daily until Entresto improved -Increase metoprolol XL 75 mg daily Patient continues to feel down. Reports getting harder to walk because his legs and feet feel skinny. TE sent to PCP regarding unintentional weight loss. He is taking medications as prescribed. I again asked for income verification for Entresto PAP, however it does not seem like he will be able to provide any income tax statements. Will just continue on losartan for now. Pt does report his disability is still in process and hopes to have soon. Will increase Metoprolol Er further to 75 mg daily. Does not have BP cuff to checks vitals at home but has PCP appt at end of month which they can be checked at that time. Uncontrolled Dyslipidemia - Target LDL <70 -Most recent LDL increased to 101 -TG increased to 1204 -pt has hx of hypertriglyceridemia (highest in 2020 at 2295) -Continue current medications 3. Uncontrolled T2DM -Stopped following with [facility] in Aug due to cost -Most recent A1c 10% -Encouraged pt to test BG at home in order to titrate insulin -Intolerant to Metformin-severe abdominal pain -TE sent to PCP regarding running out of insulin Does not test blood sugar at home, does not have meter where he is staying. He will attempt to get his meter to start testing. Denies any feelings of low BG. Reports he is almost of insulin. Does not have insurance so lantus will be expensive. TE sent to PCP to consider NPH. History of alcohol dependence -Pt aware of increased risk of pancreatitis with elevated TG >500 4. Uncontrolled HTN -Goal BP <130/80 -Titrate HF medications -Encouraged pt to start monitoring vitals at home 5. History of acute PE -05/2022 Medication changes: Atorvastatin 40 mg daily INCREASE: Metoprolol succinate 75 mg daily- restarted 09/15/23; increased 10/20/23 HCTZ 25 mg daily spironolactone 25 mg daily- Started 10/05/23 Fenofibrate 145 mg daily - Started 10/05/23 Losartan 25 mg daily- only until Entresto improved; started 10/12/23 Insulin glargine 45 units daily- switched from Levemir on 08/29/23 Glipizide ER 10 mg daily Labs Due: Lipid panel 01/12/24 (not ordered yet -remind me sent to order) A1c 01/12/24 UACR 05/18/24 Follow up: 2 weeks Becca Phillips RPh Clinical Pharmacist Medication Therapy Disease Management 11/03/2023,10:35 AM documented in this encounter Plan of Treatment Upcoming Encounters Date Type Department Care Team (Late st Contact Info) Description 11/20/2023 2:00 PM EST Office Visit Family Medicine [address] [place] [phone] Dany Caruso MD [address] [place] [address] [place] [address] 11/21/2023 10:00 AM EST Telemedicine Cardiology [place] [address] [place] [address] [facility] Cardiology [address] [place] [address] 03/20/2024 8:30 AM EDT Office Visit Cardiology, [facility] [address] [place] [address] Joaquina Hernández CRNP [address] [place] [address] Health Maintenance Due Date Last Done Comments [...] failure with reduced ejection fraction) (HCC)- Primary documented in this encounter Care Teams Dyno Technician Relationship Specialty Start Date End Date Dany Caruso MD [address] [place] [address] [place] [address] PCP - General Family Medicine 04/07/21 documented as of this encounter
--- OUTSIDE RECORDS SUMMARY | 2023-11-18 22:56 | External Medical Summary | Summary of Care ---
Author Name Unknown Organization [facility] Address [address] [place] [address] Phone [phone] Care Team Providers Care Fire Eater Name Role Phone Dany Caruso MD Primary Care Provide r Encounter Details Date Type Department Care Team (Late st Contact Info) Description 10/06/2023 Telephone Cardiology, [facility] [address] [place] [address] [facility] [address] [place], [place] [id number] Allergies Active Allergy Reactions Criticality Noted Date Comments Morphine 12/27/2013 Nausea, vomiting, diaphoresis Sulfa Antibiotics Itching 10/04/2011 documented as of this encounter (statuses as of 10/27/2023) Medications Medication Sig Dispensed Refills Start Date End Date Status OneTouch Verio w/Device KitIndications:Type 2 diabetes mellitus with hemoglobin A1c goal of less than 7.0% ([facility]) Use to test once a day E11.9 1 Kit 0 03/23/2022 Active OneTouch UltraSoft LancetsIndications: Type 2 diabetes mellitus with hemoglobin A1c goal of less than 7.0% ([facility]) Use to test twice a [...] diabetes mellitus with autonomic neuropathy, unspecified whether chcf insulin use (HCC) Use with insulin once daily 100 Each 1 06/29/2022 Active Sacubitril-Valsarta n 24-26 MG Oral Tablet (Entresto) Take 1 Tablet by mouth in the morning and 1 Tablet before bedtime. 0 Active OneTouch Verio In Vitro Strip (Glucose Blood)Indications:T ype 2 diabetes mellitus with hemoglobin A1c goal of less than 7.0% ([facility]) Use to test blood sugar twice a day. E11.9 200 Strip 3 08/31/2022 Active Cyclobenzaprine HCl 10 MG Oral Tablet (Flexeril)Indicatio ns:Shoulder strain, left, initial encounter Take 1 Tablet (10 mg) by mouth at bedtime as needed for Muscle spasms. 10 Tablet 0 09/20/2022 Active FreeStyle Kirit 2 SensorIndications:T ype 2 diabetes mellitus with hemoglobin A1c goal of less than 7.0% ([facility]) Use as directed. Use to [...] hemoglobin A1c goal of less than 7.0% ([facility]) Take 1 Tablet by mouth [...] the morning. 30 Tablet 1 10/11/2023 Active Metoprolol Succinate 25 MG Oral Capsule ER 24 Hour SprinkleIndications :HTN, goal below 130/80 Take 25 mg by mouth in the morning. 34 Capsule 11 09/15/2023 3 Discontinue d(Medicatio n/Dose Changed) documented as of this encounter (statuses as of 10/27/2023) Active Problems Problem Noted Date Diagnosed Date [...] as of this encounter (statuses as of 10/27/2023) Resolved Problems Problem Noted Date Diagnosed Date Resolved Date Type 2 diabetes mellitus wit h autonomic neuropathy 06/29/2022 12/19/2022 Neuropathy 04/07/2021 12/19/2022 Diabetic ketoacidosis withou t coma associated with type 2 diabetes mellitus 04/07/2021 05/06/2021 Overview: 02/2021 Fatigue 11/13/2011 05/10/2022 Esophageal reflux 10/04/2011 04/07/2021 documented as of this encounter (statuses as of 10/27/2023) Immunizations Name Administration Dates Next Due Seasonal [...] Notes * Telephone Encounter - Becca Phillips RPh - 10/27/2023 9:17 AM EST Nothing yet Ronna :( When I last spoke with him, it seems like he may have trouble getting that info He was talking about waiting until he got disability. I will keep you posted. I have appt with him next week Becca Phillips Pharm D Clinical Pharmacist Cardiology 10/27/2023,9:17 AM * Telephone Encounter - Becca Phillips RP - 10/18/2023 1:17 PM EST Provider portion emailed back to Ronna Davies and placed in bin to be scanned into patients chart Becca Mancini Clinical Pharmacist Cardiology 10/18/2023,1:17 PM * Telephone Encounter - Becca Phillips RP - 10/13/2023 12:53 PM EST Provider portion emailed to ino for her signature Pt portion at [facility] waiting for pt tack picker/signature Becca Mancini Clinical Pharmacist Cardiology 10/13/2023,12:53 PM * Telephone Encounter - Fern Sneed OSA - 10/11/2023 1:53 PM EST Pt returning call. Asking for call back at [phone]. Thank you. * Telephone Encounter - Darcy Sepulveda RPh - 10/11/2023 1:23 PM EST Contacts Type Contact Phone/Fax 10/11/2023 01:30 PM EST Phone (Outgoing) Man Day (Self) [phone] (M) Left Message Spoke with pt regarding [employer] PAP and Entresto. Pt has 1 day supply left of Entresto and alreadyused 1 month free trial card. Informed him that PAP process may take 2-3 weeks to receive medication. Therefore, will need to start a medication temporarily. Pt is agreeable to start Losartan 25 mg daily. Sent Rx to pharmacy for tack picker. Will f/u at already scheduled appt on 10/20. Pt plans to fill out patient portion of PAP on Monday at [facility]. Will then send that form out for approval. Darcy Sepulveda, PharmD PGY1 [employer] Operator 10/11/2023 1:27 PM * Telephone Encounter - Darcy Sepulveda RPh - 10/06/2023 3:05 PM EST Patient cannot afford Entresto due to lack of insurance, please assess for assistance. Pt has 5 daysupply left. Consider looking into [employer] product introduction manager PAP if applicable. Diagnosis: Heart failure Medication: Entresto 24/26 mg BID Please also assess for cost assistance with Lantus. Diagnosis: Type 2 diabetes: Lantus 46 units daily Thank you, Darcy Sepulveda PharmD PGY1 [employer] 10/06/2023 3:07 PM documented in this encounter Plan of Treatment Upcoming Encounters Date Type Department Care Team (Late st Contact Info) Description 11/03/2023 10:30 AM EST [facility] [address] [place] [address] [facility] Cardiology [facility] [address] [place] [address] 11/20/2023 2:00 PM EST Office Visit Family [address] [place] [phone] Dany Caruso MD [address] [place] [address] [place] [address] 03/20/2024 8:30 AM EDT Office Visit Cardiology [facility] [address] [place] [address] Ino Hernández CRNP [address] [place] [address] Health Maintenance Due Date Last Done Comments [...] Primary documented in this encounter Care Teams Fire Eater Relationship Specialty Start Date End Date Dany Caruso MD [address] [place] [address] [place] [address] PCP - General Family Medicine 04/07/21 documented as of this encounter
--- OUTSIDE RECORDS SUMMARY | 2023-11-18 22:57 | External Medical Summary | Summary of Care ---
Author Name Unknown Organization [facility] Address [address] [place] [address] Phone [phone] Care Team Providers Care Data Processing Systems Consultant Name Role Phone Dany Caruso MD Primary Care Provide r Reason for Visit * Reason Comments Dosage Adjustment In Person (Anticoag Cl inic) Congestive Heart Failure * Evaluate & Treat - Unlimited Visits (Within 10 days (routine)) - Pending Review Specialty Diagnoses / Procedures Referred By Contblaine t Referred To Contact Pharmacist / Pharmacy Diagnoses High triglycerides HTN, goal below 130/80 Type 2 diabetes mellitus with hemoglobin A1c goal of less than 7.0% (HCC) HFrEF (heart failure with reduced ejection fraction) (HCC) Joaquina Hernández CRNP [address] [place] [address] Referral ID Status Reason Start Date Expiration Date Visits Requested Visits Authorized [id number] Pending Review Specialty Services Required [phone] Encounter Details Date Type Department Care Team (Late st Contact Info) Description 10/06/2023 10:10 AM EST [facility] [address] [place] [address] [facility] Card[facility] [address] [place] [address] HFrEF (heart failure with reduced ejection fraction) (HCC)*; High triglycerides; Type 2 diabetes mellitus with hemoglobin A1c goal of less than 7.0% (HCC) Allergies Active Allergy Reactions Criticality Noted Date Comments Morphine 12/27/2013 Nausea, vomiting, diaphoresis Sulfa Antibiotics Itching 10/04/2011 documented as of this encounter (statuses as of 10/06/2023) Medications Medication Sig Dispensed Refills Start Date End Date Status OneTouch Verio w/Device KitIndications:Type 2 diabetes mellitus with hemoglobin A1c goal of less than 7.0% (HCC) Use to test once a day E11.9 1 Kit 0 03/23/2022 Active OneTouch UltraSoft LancetsIndications: Type 2 diabetes mellitus with hemoglobin A1c goal of less than 7.0% (HCC) Use to test twice a day. E11.9 [...] diabetes mellitus with autonomic neuropathy, unspecified whether halfway insulin use (HCC) Use with insulin once daily 100 Each 1 06/29/2022 Active Sacubitril-Valsarta n 24-26 MG Oral Tablet (Entresto) Take 1 Tablet by mouth in the morning and 1 Tablet before bedtime. 0 Active OneTouch Verio In Vitro Strip (Glucose Blood)Indications:T ype 2 diabetes mellitus with hemoglobin A1c goal of less than 7.0% (HCC) Use to test blood sugar twice a day. E11.9 200 Strip 3 08/31/2022 Active Cyclobenzaprine HCl 10 MG Oral Tablet (Flexeril)Indicatio ns:Shoulder strain, left, initial encounter Take 1 Tablet (10 mg) by mouth at bedtime as needed for Muscle spasms. 10 Tablet 0 09/20/2022 Active FreeStyle Kirit 2 SensorIndications:T ype 2 diabetes mellitus with hemoglobin A1c goal of less than 7.0% (HCC) Use as directed. Use to check glucose [...] the morning. 30 Tablet 3 09/15/2023 Active Metoprolol Succinate 25 MG Oral Capsule ER 24 Hour SprinkleIndications :HTN, goal below 130/80 Take 25 mg by mouth in the morning. 34 Capsule 11 09/15/2023 Active hydroCHLOROthiazide 25 MG Oral Tablet [...] the morning. 30 Tablet 3 10/06/2023 Active Empagliflozin 25 MG Oral Tablet (Jardiance)Indicati ons:Type 2 diabetes mellitus with hemoglobin A1c goal of less than 7.0% (HCC) Take by mouth 1 Tablet in the morning. 90 Tablet 3 07/08/2022 3 Discontinue d(Medicatio n List Clean Up) Pioglitazone HCl 30 MG Oral Tablet (Actos)Indications: Type 2 diabetes mellitus with hemoglobin A1c goal of less than 7.0% ([facility]) Take 1 Tablet by mouth in the morning. 30 Tablet 11 08/30/2023 3 Discontinue d(Medicatio n List Clean Up) documented as of this encounter (statuses as of 10/06/2023) Active Problems Problem Noted Date Diagnosed Date [...] as of this encounter (statuses as of 10/06/2023) Resolved Problems Problem Noted Date Diagnosed Date Resolved Date Type 2 diabetes mellitus wit h autonomic neuropathy 06/29/2022 12/19/2022 Neuropathy 04/07/2021 12/19/2022 Diabetic ketoacidosis withou t coma associated with type 2 diabetes mellitus 04/07/2021 05/06/2021 Overview: 02/2021 Fatigue 11/13/2011 05/10/2022 Esophageal reflux 10/04/2011 04/07/2021 documented as of this encounter (statuses as of 10/06/2023) Immunizations Name Administration Dates Next Due Seasonal [...] on file documented as of this encounter Last Filed Vital Signs Vital Sign Reading Time Taken Comments Blood Pressure 176/107 10/06/2023 10:43 AM EST Pulse 80 10/06/2023 10:43 AM EST Temperature - - Respiratory Rate - - Oxygen Saturation - - Inhaled Oxygen Concentration - - Weight - - Height - - Body Mass Index - - documented in this encounter Patient Instructions * Patient Instructions* Darcy Sepulveda RPh - 10/06/2023 10:55 AM EST Start Spironolactone 25 mg daily Start Fenofibrate 145 mg once daily Do not start Pioglitazone (Actos) Start Blood pressure, Heart rate, and Weight log book Start testing BS once daily in rotating fashion Assistance team will reach out regarding Entresto and Lantus cost Get fasting lab work in 1 week Call Becca with any questions or concerns at [phone] documented in this encounter Progress Notes * Darcy Sepulveda RPh - 10/05/2023 9:18 PM EST PHARMACY CHRONIC DISEASE MANAGEMENT - HEART FAILURE Man Day is an 43 year old patient referred to the Heart Failure MTM clinic by Joaquina Hernández CRNP for the following: General heart failure medication optimization Lipid management PCP: Dany Caruso MD Cardiology Provider: Joaquina Hernández CRNP Professor Of Public Administration: Not currently active with case management Urgent HF Access: Reviewed the following treatment locations for urgent HF symptoms with patient and provided them with contact information Cardiology based urgent heart failure clinic, [facility] [phone] HPI: Patient has heart failure assessment: Heart failure with REDUCED ejection fraction (SYStolic heart failure) without ischemic heart disease Patient has evidence of RV dysfunction: No Most recent LVEF: 35 % Date: 06/16/23 Modality: Echo Previous LVEF: 25 % Date: unknown Modality: unknown was following with [place] [facility] vitals: Does patient monitor BP at home? no Any dizziness or lightheadedness: feels off balance - almost had a fall- states this is not due to lightheadedness or dizziness but more of a "mental thing" Home BP log results: Does patient monitor HR at home? no Home HR log results: Does patient monitor weight at home? no Any increased edema or shortness of breath: daily fatigue and SOB at rest and upon exertion; deniesedema Home weight log results: Based on evidence based, guideline directed medication therapy, patient is recommended to be taking: Evidence based beta camilo - Yes - patient is taking metoprolol XL 25 mg PO daily ACEI/ARB/ARNI - Yes - patient is taking Entresto 24-26 mg PO BID Aldosterone receptor antagonist - No- planning to initiate therapy in future Hydralazine - No - not currenty indicated Nitrate - No - not currrently indicated Digoxin - No - not currently indicated Ivabradine - No - not currrently indicated Lipid therapy - Is patient taking a lipid lowering therapy? Yes. Does patient have CAD, PAD, PVD? No. atorvastatin 40 mg PO daily Antiplatelet - Is the patient taking an antiplatelet? No. not indicated Anticoagulant - Is the patient taking an anticoagulant? No. not indicated Diuretic Plan: none Is a Diuretic Titration Plan (DTP) in place? No Other Cardiac Medications: none Current medications recommended to avoid or discontinue: TZDs Diet Review: Today I discussed with patient the importance of diet restrictions for patients with heart failure,including: Low sodium diet, 2 grams of sodium per day Fluid restriction of 2 L or 64 ounces per day Objective: BP Readings from Last 3 Encounters: 10/06/23 176/107 09/15/23 168/96 06/15/23 130/80 Pulse Readings from Last 3 Encounters: 10/06/23 80 09/15/23 84 06/15/23 90 Wt Readings from Last 3 Encounters: 09/15/23 101.4 kg (223 lb 8 oz) 06/15/23 101.6 kg (224 lb) 05/18/23 102.2 kg (225 lb 6.4 oz) Lab Results Component Value Date/Time CREATININE - [facility] 0.8 05/18/2023 01:36 PM CREATININE - [facility] 0.8 02/16/2023 01:54 PM CREATININE - [facility] 0.8 07/06/2022 12:48 PM CREATININE - [facility] 1.1 09/08/2016 02:32 PM CREATININE - [facility] 0.9 06/09/2015 03:06 PM CREATININE - [facility] 0.7 05/09/2011 05:00 PM CREATININE, RANDOM URINE - [facility] 50 05/18/2023 01:36 PM CREATININE, RANDOM URINE - [facility] 199 07/06/2022 12:48 PM CREATININE, RANDOM URINE - [facility] 151 03/24/2022 08:44 AM Lab Results Component Value Date/Time SODIUM - [facility] 135 05/18/2023 01:36 PM SODIUM - [facility] 137 02/16/2023 01:54 PM SODIUM - [facility] 141 07/06/2022 12:48 PM SODIUM - [facility] 143 09/08/2016 02:32 PM SODIUM - [facility] 144 06/09/2015 03:06 PM SODIUM - [facility] 141 05/09/2011 05:00 PM SODIUM, RANDOM URINE - [facility] 178 06/09/2015 03:06 PM Lab Results Component Value Date/Time POTASSIUM - [facility] 4.2 05/18/2023 01:36 PM POTASSIUM - [facility] 4.0 02/16/2023 01:54 PM POTASSIUM - [facility] 4.2 07/06/2022 12:48 PM POTASSIUM - [facility] 4.3 09/08/2016 02:32 PM POTASSIUM - [facility] 4.0 06/09/2015 03:06 PM POTASSIUM - [facility] 3.6 05/09/2011 05:00 PM POTASSIUM, RANDOM URINE - [facility] 28.8 06/09/2015 03:06 PM No results found for: "DIG" Anemia assessment: Lab Results Component Value Date/Time HGB - [...] 03:06 PM No results found for: "TRANSFERRIN" Anemia management recommendations: Hemoglobin greater than 10.5 - No intervention needed Current Cardiac Medication(s): Atorvastatin 40 mg daily Metoprolol succinate 25 mg daily- restarted 09/15/23 HCTZ 25 mg daily Entresto 24-26 mg BID- 5 day supply left Diabetes Medications: Insulin glargine 45 units daily- switched from Levemir on 08/29/23- was not taking insulin for monthand a half Glipizide ER 10 mg daily Pioglitazone 30 mg daily- prescribed 08/29/23- never started Jardiance 25 mg daily- not taking due to cost- has never taken Jardiance pt stated Eligible for [facility] Order pharmacy? Agree or Declined? Not reviewed Assessment & Plan: HFrEF -LVEF slightly improved -repeat ECHO in 6 months post Cardio visit on 09/15/23 -Cost assistance for Entresto 24-26 mg BID (reached out to pharmacy reimbursement team) -Start spironolactone 25 mg daily -BMP 1 week Pt LVEF recently improved from 25% to 35% and currently taking 2/4 GDMTs. Unfortunately pt does nothave insurance at the moment therefore stopped taking several medications for a time period. Pt working on getting disability and insurance. Currently has 5 day supply of Entresto and actively takingMetoprolol XL. Will reach out to pharmacy reimbursement team to start application process for PAP for Entresto. Will consider at f/u starting ARB temporarily if PAP for Entresto is taking longer thanhoped for. Already used Entresto free trial card. BP today 176/107. Currently not monitoring BP, HR, or wt at home. Encouraged and provided pt home log to start. Pt agreeable to obtain BP monitor from [facility] he stated. Informed pt that if BP is 180/110 to go to urgent care or call provider. Also discussed to call if wt gain of 3 lbs in 1 day or 5lbs in 1 week. Pt demonstrates understanding. Expresses daily SOB upon rest and exertion and fatigue which has been occurring for several months. Denies edema. Will start pt on spironolactone 25 mg daily and recheck BMP in 1 week. Will f/u in 2 weeks. Pt agreeable to plan. Uncontrolled Dyslipidemia - LDL controlled at 63 as of 05/18/23 -TG increased to 767 likely uncontrolled DM contributing to this -Continue Atorvastatin -Start fenofibrate -Lipid panel ordered TG elevated at 767 on 05/18/23. Ordered updated lipid panel. Pt has been struggling with elevated TGfor years with highest TG level at 2,295 in March of 2021. Will start Fenofibrate 145 mg daily. Educated pt on MOA, ANGIE, and administration. 3. Uncontrolled T2DM -Stopped following with [facility] in Aug due to cost -Current A1c 11.5% -Use to be on Kirit 2 but stopped due to adhesiveness -A1c due -Stop Actos -start to test BG at home -Intolerant to Metformin-severe abdominal pain A1c increased from 6.9% in Nov to 11.5% in April. Pt no longer has insurance and had to switch DM regimen. Pt now on Lantus 45 units daily and glipizide ER 10 mg daily. Pt did not take Insulin for month and a half which likely increased A1c. Has been on Lantus for little over 1 month pt states. Pt was prescribed pioglitazone 30 mg daily in August but has not started. Pt also has Jardiance on medication list but states he never started that either. Will remove from medication list and reconsider in future when A1c <10%. Concern for exacerbation or worsening of HF with new addition of pioglitazone. Discussed risks vs benefit with pt and pt is agreeable to discontinuation of pioglitazone. Removed from medication list.Also discussed re-trialing Metformin ER at low dose of 500 mg daily, pt was not interested as had intense abdominal pain with it in the past. Pt currently not testing BS at home as he states he knows when he has high and low BS. Encouraged pt to start testing once daily in rotating fashion. Provided pt BS log sheet. Do not feel comfortableadjust insulin with BS trends. Also do not feel comfortable increasing Glipizide with concomitant insulin use. Will reassess A1c and BS log at f/u visit. History of alcohol dependence -Discussed risk of pancreatitis increased further with elevated TG >500 and alcohol consumption 4. Uncontrolled HTN -Goal BP <130/80 -Titrate HF medications 5. History of acute PE -05/2022 Medication changes: Atorvastatin 40 mg daily Metoprolol succinate 25 mg daily- restarted 09/15/23 HCTZ 25 mg daily Entresto 24-26 mg BID---applying for PAP START spironolactone 25 mg daily START fenofibrate 145 mg daily Diabetes medications: Insulin glargine 45 units daily- switched from Levemir on 08/29/23 Glipizide ER 10 mg daily DISCONTINUE Pioglitazone 30 mg daily- prescribed 08/29/23- never started DISCONTINUE Jardiance 25 mg daily- not taking due to cost- has never taken Jardiance pt stated Labs Due: BMP 1 week (ordered) Lipid panel due (ordered) A1c due (ordered) UACR 05/18/24 Vaccine Due: flu, Tdap booster, pneumo, and hep b series - can discuss at f/u visit Follow up: 2 weeks Darcy Sepulveda [facility] Clinical Pharmacist Medication Therapy Disease Management 10/05/2023,9:19 PM documented in this encounter Plan of Treatment Upcoming Encounters Date Type Department Care Team (Late st Contact Info) Description 10/20/2023 9:00 AM EST Telemedicine Cardiology, [facility] [address] [address] [facility] Cardiology [facility] [address] [address] 11/20/2023 2:00 PM EST Office Visit Family [address] [place] [phone] Dany Caruso MD [address] [place] [address] [place] [address] 03/20/2024 8:30 AM EDT Office Visit Cardiology, [facility] [address] [place] [address] Joaquina Hernández CRNP [address] [place] [address] Scheduled Orders Name Type Priority Associated Diagnoses Orde r Schedule LIPID PANEL WITH DIRECT LDL IF TG IS HIGH Lab Routine High triglycerides Expected: 10/06/2023, Expires: 10/06/2024 BASIC METABOLIC PANEL Lab Routine HFrEF (heart failure with reduced ejection fraction) (HCC) Expected: 10/13/2023, Expires: 10/06/2024 HEMOGLOBIN A1C Lab Routine Type 2 diabetes mellitus with hemoglobin A1c goal of less than 7.0% (HCC) Expected: 10/06/2023, Expires: 10/06/2024 Health Maintenance Due Date Last Done Comments [...] (#1) 2023 10/04/2011 Depression Screening 08/31/2023 08/31/2022 HbA1c 11/18/2023 05/18/2023, 11/23, 07/06/2022, Additional history exists Diabetic Foot Exam 12/19/2023 12/19/2022, 05/06/2021 Albumin/Creatinine Ratio 05/18/2024 023, 07/06/2022, 03/24/2022, Additional history exists GFR 05/18/2024 05/18/2023, 042 04/2023, 07/06/2022, Additional history exists Lipid Panel 05/18/2028 05/18/2023, 2021, 08/10/2021, Additional history exists GARDASIL-HPV IMMUNIZATION SERIES Aged Out No longer eligible based on patient's age to complete this topic MENINGOCOCCAL (MENACTRA/MENVEO) Aged Out No longer eligible based on patient's age to complete this topic documented as of this encounter Medical Devices Not on filedocumented as of this encounter Visit Diagnoses Diagnosis HFrEF (heart failure with reduced ejection fraction) (HCC)- Primary High triglycerides Pure hyperglyceridemia Type 2 diabetes mellitus with hemoglobin A1c goal of less than 7.0% ([facility]) documented in this encounter Care Teams Data Processing Systems Consultant Relationship Specialty Start Date End Date Dany Caruso MD [address] [place] [address] [place] [id number] PCP - General Family Medicine 04/07/21 documented as of this encounter
--- OUTSIDE RECORDS SUMMARY | 2023-11-18 22:57 | External Medical Summary ---
Author Name Unknown Address Unknown Organization [id number]:[facility] [[email or web address]] [facility] [address] - [address] [place] [address] Laboratory Report Ordering Provider Test Date Status ISAAC MCMULLEN 10/13/2023 13:25:25 Final Observation Date Value Abnormality Reference (Units ) Status BUN 10/13/2023 13:25:25 15 6-20 (mg/dL) Final Creatinine 10/13/2023 13:25:25 0.9 0.6-1.2 (mg/dL) Final Glomerular filtration rate/1.73 sq M.predicted [Volume Rate/Area] in Serum, Plasma or Blood by Creatinine-based formula (CKD-EPI) 10/13/2023 13:25:25 >90 >=60 (mL/min) Final eGFR is calculated based on the CKD-EPI 2020 equation SODIUM 10/13/2023 13:25:25 136 135-146 (m mol/L) Final Potassium 10/13/2023 13:25:25 4.9 3.5-5.1 (m mol/L) Final Cl 10/13/2023 13:25:25 99 98-107 (mm ol/L) Final CO2 10/13/2023 13:25:25 26 22-32 (mmo l/L) Final Anion gap 10/13/2023 13:25:25 11 7-15 (mmol /L) Final Glucose 10/13/2023 13:25:25 367 Above high normal 70 -120 (mg/dL) Final Calcium 10/13/2023 13:25:25 9.6 8.4-10.2 ( mg/dL) Final Performing Location [facility] [[email or web address]] [place] [address] - [address] [place] [address]
--- OUTSIDE RECORDS SUMMARY | 2023-11-18 22:57 | External Medical Summary | Summary of Care ---
Author Name Unknown Organization [facility] Address [address] [place] [address] Phone [phone] Care Team Providers Care Rig Operator Name Role Phone Dany Caruso MD [...] Joaquina Hernández CRNP [address] [place] [address] Referral ID Status Reason Start Date Expiration Date Visits Requested Visits Authorized [id number] Pending Review Specialty Services Required [phone] Encounter Details Date Type Department Care Team (Late st Contact Info) Description 10/06/2023 10:10 AM EST [facility] [address] [place] [address] [facility] Cardiology [facility] [address] [place] [address] HFrEF (heart failure with reduced ejection fraction) [...] diabetes mellitus with autonomic neuropathy, unspecified whether care home insulin use (HCC) Use with insulin once [...] hemoglobin A1c goal of less than 7.0% ([facility]) Take 1 Tablet by mouth in [...] Becca with any questions or concerns at [phone] documented in this encounter Progress Notes * Darcy Sepulveda RPh - 10/05/2023 9:18 PM EST PHARMACY CHRONIC DISEASE MANAGEMENT - HEART FAILURE Man Day is an 43 year old patient referred to the Heart Failure MTM clinic by Joaquina Hernández CRNP for the following: General heart failure medication optimization Lipid management PCP: Dany Caruso MD Cardiology Provider: Joaquina Hernández CRNP Refrigeration Repair Supervisor: Not currently active with case management Urgent HF Access: Reviewed the following treatment locations for urgent HF symptoms with patient and provided them with contact information Cardiology based urgent heart failure clinic, [facility] [phone] HPI: Patient has heart failure assessment: Heart failure with REDUCED ejection fraction (SYStolic heart failure) without ischemic heart disease Patient has evidence of RV dysfunction: No Most recent LVEF: 35 % Date: 06/16/23 Modality: Echo Previous LVEF: 25 % Date: unknown Modality: unknown [place] following with [place] [facility] vitals: Does patient monitor BP at home? [...] never taken Jardiance pt stated Eligible for [facility] pharmacy? Agree or Declined? Not [...] visit Follow up: 2 weeks Darcy Sepulveda [facility] Clinical Pharmacist Medication Therapy Disease Management 10/05/2023,9:19 PM documented in this encounter Plan of Treatment Upcoming Encounters Date Type Department Care Team (Late st Contact Info) Description 10/20/2023 9:00 AM EST Telemedicine Cardiology, [facility] [address] [place] [address] [facility] Cardiology [facility] [address] [place] [address] 11/20/2023 2:00 PM EST Office Visit Family [address] [place] [phone] Dany Caruso MD [address] [place] [address] [place] [address] 03/20/2024 8:30 AM EDT Office Visit Cardiology, [facility] [address] [place] [address] Joaquina Hernández CRNP [address] [place] [address] Scheduled Orders Name Type Priority Associated Diagnoses [...] hemoglobin A1c goal of less than 7.0% ([facility]) documented in this encounter Care Teams Rig Operator Relationship Specialty Start Date End Date Dany Caruso MD [address] [place] [address] [place] [phone] PCP - General Family Medicine 04/07/21 documented as of this encounter
--- OUTSIDE RECORDS SUMMARY | 2023-11-18 22:57 | External Medical Summary ---
Author Name Unknown Address Unknown Organization [id number][place] [place] [address] [facility] [address] Laboratory Report Ordering Provider Test Date Status RADHA MCMULLENLA 10/13/2023 13:25:25 Final Observation Date Value Abnormality Reference (Units ) Status Triglyceride 10/13/2023 13:25:25 1204 Above high normal <=174 (mg/dL) Final Triglyceride Reference Range s (mg/dL):
<150 Acceptable
150-174 Borderline high
175-499 High
>=500 Very high Cholesterol 10/13/2023 13:25:25 298 Above high normal <200 (mg/dL) Final Total Cholesterol Reference Ranges (mg/dL):
<200 Desirable
200-239 Borderline high
>=240 High HDL 10/13/2023 13:25:25 38 Below low normal >39 (mg/dL) Final HDL Cholesterol Reference Ra nges (mg/dL):
>=60 High (Desirable)
<50 Low (Undesirable) For Females
<40 Low (Undesirable) For Males NON-HDL CHOLESTEROL 10/13/2023 13:25:25 260 Above high normal <=159 (mg/dL) Final Non-HDL Cholesterol Referenc e Range (mg/dL):
<100 Target level for high risk ASCVD patient
<130 Optimal for general population
130-159 Near optimal for general population
160-189 Borderline High
190-219 High
>=220 Very High Performing Location [facility] [place] [address] [facility] [address]
--- OUTSIDE RECORDS SUMMARY | 2023-11-18 22:57 | External Medical Summary | Summary of Care ---
Author Name Unknown Organization [facility] Address [address] [place] [address] Phone [phone] Care Team Providers Care Bumper Machine Operator Name Role Phone Dany Caruso MD Primary Care Provide r Reason for Referral * Evaluate & Treat - Unlimited Visits (Within 10 days (routine)) - Pending Review Specialty Diagnoses / Procedures Referred By Contac t Referred To Contact Pharmacist / Pharmacy Diagnoses High triglycerides HTN, goal below 130/80 Type 2 diabetes mellitus with hemoglobin A1c goal of less than 7.0% ([facility]) HFrEF (heart failure with reduced ejection fraction) ([facility]) Joaquina Hernández CRNP [address] [place] [address] Referral ID Status Reason Start Date Expiration Date Visits Requested Visits Authorized [id number] Pending Review Specialty Services Required 3 99 99 Question Answer Department: Specialist Specialty: Cardio Reason for Referral: HF, Lipids Referral Priority Within 10 days (routine) Where should this appointment be scheduled? Caitlyn Comments Pharmacist Medication Therapy Management Minimum frequency patient should be seen in person for medication management: as appropriate per clinical condition and patient data Reason for Visit * Reason Comments Follow Up 3 month follow up. F eels drained all the time. Palpitations throughout the day and will last for a short period and feels wiped. SOB after palpitations. Feels like he is going to fall over with balance issues. Minor edema in feet that subsides. No appetite and not eating well due episodes of ketoacidosis. Denies chest pain and dizziness. Encounter Details Date Type Department Care Team ([facility] Contact Info) Description 09/15/2023 9:30 AM EST Office Visit Cardiology, [facility] [address] [place] [id number] Joaquina Hernández CRNP [address] [place] [id number] HFrEF (heart failure with reduced ejection fraction) ([facility])*; HTN, goal below 130/80; High triglycerides; Type 2 diabetes mellitus with hemoglobin A1c goal of less than 7.0% ([facility]) Allergies Active Allergy Reactions Criticality Noted Date Comments Morphine 12/27/2013 Nausea, vomiting, diaphoresis Sulfa Antibiotics Itching 10/04/2011 documented as of this encounter (statuses as of 09/15/2023) Medications Medication Sig Dispensed Refills Start Date End Date Status OneTouch Verio w/Device KitIndications:Type 2 diabetes mellitus with hemoglobin A1c goal of less than 7.0% ([facility]) Use to test once a day E11.9 1 Kit 0 03/23/2022 Active OneTouch UltraSoft LancetsIndications: Type 2 diabetes mellitus with hemoglobin A1c goal of less than 7.0% ([facility]) Use to test twice a [...] diabetes mellitus with autonomic neuropathy, unspecified whether manager terminal insulin use (HCC) Use with insulin once daily 100 Each 1 06/29/2022 Active Sacubitril-Valsarta n 24-26 MG Oral Tablet (Entresto) Take 1 Tablet by mouth in the morning and 1 Tablet before bedtime. 0 Active Empagliflozin 25 MG Oral Tablet (Jardiance)Indicati ons:Type 2 diabetes mellitus with hemoglobin A1c goal of less than 7.0% (HCC) Take by mouth 1 Tablet in the morning. 90 Tablet 3 07/08/2022 Active OneTouch Verio In Vitro Strip (Glucose [...] skin daily. 15 mL 5 08/30/2023 Active Pioglitazone HCl 30 MG Oral Tablet (Actos)Indications: Type 2 diabetes mellitus with hemoglobin A1c goal of less than 7.0% (HCC) Take 1 Tablet by mouth in the morning. 30 Tablet 11 08/30/2023 Active Gabapentin 100 MG Oral Capsule [...] the morning. 30 Tablet 2 09/15/2023 Active Atorvastatin Calcium 40 MG Oral Tablet (Lipitor)Indication s:High triglycerides Take by mouth 1 Tablet in the morning. 30 Tablet 3 03/23/2022 3 Discontinue d(Refill) Metoprolol Succinate 25 MG Oral Capsule ER 24 Hour Sprinkle Take by mouth 25 mg daily . 0 05/20/2022 3 Discontinue d(Refill) hydroCHLOROthiazide 25 MG Oral Tablet (Hydrodiuril)Indica tions:HTN, goal below 130/80 Take 1 Tablet by mouth in the morning. 30 Tablet 2 01/18/2023 3 Discontinue d(Refill) Levemir FlexTouch 100 UNIT/ML Subcutaneous Solution Pen-injector (Insulin Detemir)Indications :Type 2 diabetes mellitus with hemoglobin A1c goal of less than 7.0% ([facility]) inject 45 units under the skin daily 45 mL 0 05/19/2023 3 Discontinue d(Medicatio n List Clean Up) documented as of this encounter (statuses as of 09/15/2023) Active Problems Problem Noted Date Diagnosed Date [...] as of this encounter (statuses as of 09/15/2023) Resolved Problems Problem Noted Date Diagnosed Date Resolved Date Type 2 diabetes mellitus wit h autonomic neuropathy 06/29/2022 12/19/2022 Neuropathy 04/07/2021 12/19/2022 Diabetic ketoacidosis withou t coma associated with type 2 diabetes mellitus 04/07/2021 05/06/2021 Overview: 02/2021 Fatigue 11/13/2011 05/10/2022 Esophageal reflux 10/04/2011 04/07/2021 documented as of this encounter (statuses as of 09/15/2023) Immunizations Name Administration Dates Next Due Seasonal Influenza, Split, IIV3, With Preserve, Inj 10/04/2011 TDAP (age 11 and older)(Adacel) 08/15/2011 documented as of this encounter Social History Tobacco Use Types Packs/Day Years Used Date Smoking Tobacco: Former Cigarettes 1 4 Q uit: 10/23/2007 Smokeless Tobacco: Never Tobacco Cessation:Counseling Given: Not Answered Alcohol Use Standard Drinks/Week Comments Yes 0 [...] Sign Reading Time Taken Comments Blood Pressure 168/96 09/15/2023 9:26 AM EST Pulse 84 09/15/2023 9:26 AM EST Temperature - - Respiratory Rate 16 09/15/2023 9:26 AM EST Oxygen Saturation - - Inhaled Oxygen Concentration - - Weight 101.4 kg (223 lb 8 oz) 09/15/2023 9:26 AM EST Height - - Body Mass Index 33.98 05/18/2023 1:09 PM EDT documented in this encounter Progress Notes * Edgar JoaquinaRAN Ross - 09/15/2023 9:30 AM EST 09/15/2023 Cardiology Follow Up Primary Supervisor [place] Department: Dr. Gómez Cardiac Problems: HFrEF Non-ischemic cardiomyopathy DM Mixes dyslipidemia History of Alcohol abuse HPI: Man Day is a 43 year old male presents today for routine follow up. Last seen in our office by Dr. Gómez on 06/15/2023 for initial consultation for heart failure with reduced EF. He had previously followed with [facility] and at that time had undergone an ischemic work up as his EF was around 25%. Cardiac catheterization noted no coronary artery disease. Patient was following with [facility] clinic for Diabetes and Lipid management. He also had subsequent repeat echocardiogram in May after his last appointment which shows an improvement on LVEF to 35-39%and therefore ICD was not recommended at that time. Patient presents today feeling weak, run down. He reports that he is currently in the process of applying for disability and does not have any healthcare insurance at this time. Patient reports that he is remaining compliant with his Entresto however is almost out and can not afford. He is not taking his Jardiance due to cost and he has not been taking his metoprolol succinate or HCTZ stating that he does not have them. Patient does not check his blood sugars on a regular basis but can feel when they are high. He does report compliance with glipizide as well as hisinsulin injections and Actos. He denies any chest pain pressure palpitations or other anginal symptoms with activity; however, hereports that his overall functional capacity has become significantly less due to fatigue, weakness, significant knee and ankle pain. Due to lack of insurance he has not been falling with [facility] clinic anymore. He states that he has a disability meeting/hearing next month. He reports a poor appetite which he attributes to higher blood sugars and knows that he does not choose the right items either. He reports minimal alcohol intake but does admit to some alcohol use yesterday for the . REVIEW OF SYSTEMS: See HPI for pertinent positives. All others negative other than those noted in the HPI. CONSTITUTIONAL: No change in weight, No weakness, No fatigue and No fevers, No sweats or chills. PULMONARY: No cough, sputum, or hemoptysis, No wheezing, No shortness or breath and No recent change in breathing. CARDIOVASCULAR: No chest pain, No dyspnea on exertion, No edema, No palpitations and No syncope. GASTROINTESTINAL: No abdominal pain, No change in bowel habits, No significant heartburn, No nausea, No vomiting, No diarrhea, No constipation, No blood in stools or black tarry stools. No dysphagia. HEMATOLOGIC: No abnormal bleeding and No bruising. NEUROLOGICAL: Normal balance, No headaches and No weakness. Review of patient's allergies indicates: Allergen Reactions Morphine Nausea, vomiting, diaphoresis Sulfa Antibiotics Itching Current Outpatient Medications Medication Sig Dispense Refill Sacubitril-Valsartan 24-26 MG Oral Tablet (Entresto) Take 1 Tablet by mouth in the morning and 1 Tablet before bedtime. Pantoprazole Sodium 40 MG Oral Tablet Delayed Release (Protonix) Take 1 Tablet by mouth in the morning. 30 minutes before the first meal of the day. Do not crush, split or chew the tablet. 30 Tablet 5 glipiZIDE ER 10 MG Oral Tablet Extended Release 24 Hour (glipiZIDE XL) Take 1 Tablet by mouth in the morning. 30 minutes before a meal.. 30 Tablet 5 Insulin Glargine Solostar 100 UNIT/ML Subcutaneous Solution Pen-injector (Lantus SoloStar) Inject 45 Units under the skin daily. 15 mL 5 Atorvastatin Calcium 40 MG Oral Tablet (Lipitor) Take 1 Tablet by mouth in the morning. 30 Tablet 3 Metoprolol Succinate 25 MG Oral Capsule ER 24 Hour Sprinkle Take 25 mg by mouth in the morning. 34 Capsule 11 hydroCHLOROthiazide 25 MG Oral Tablet (Hydrodiuril) Take 1 Tablet by mouth in the morning. 30 Tablet 2 [place] Verio w/Device Kit Use to test once a day E11.9 1 Kit 0 [place] UltraSoft Lancets Use to test twice a day. E11.9 360 Each 1 Budesonide-Formoterol Fumarate 80-4.5 MCG/ACT Inhalation Aerosol (Symbicort) Inhale by mouth 2 Puffs in the morning AND 2 Puffs before bedtime. 10.2 g 1 Thiamine HCl 50 MG Oral Tablet Take 0.5 Tablets by mouth in the morning. Magnesium Oxide (Elemental) 400 MG Oral Tablet Take by mouth 400 mg daily . BD Pen Needle Imelda U/F 32G X 4 MM (Insulin Pen Needle) Use with insulin once daily 100 Each 1 Empagliflozin 25 MG Oral Tablet (Jardiance) Take by mouth 1 Tablet in the morning. 90 Tablet 3 OneTouch Verio In Vitro Strip (Glucose Blood) Use to test blood sugar twice a day. E11.9 200 Strip 3 Cyclobenzaprine HCl 10 MG Oral Tablet (Flexeril) Take 1 Tablet (10 mg) by mouth at bedtime as needed for Muscle spasms. 10 Tablet 0 FreeStyle Kirit 2 Sensor Use as directed. Use to check glucose 3 times a day DXe11.9 2 Each 3 Pioglitazone HCl 30 MG Oral Tablet (Actos) Take 1 Tablet by mouth in the morning. 30 Tablet 11 Gabapentin 100 MG Oral Capsule (Neurontin) TAKE 1 CAPSULE BY MOUTH IN THE MORNING AND 1 CAPSULE AT NOON AND 1 CAPSULE BEFORE BEDTIME 270 Capsule 1 No current facility-administered medications for this visit. Past Medical History: Diagnosis Date Chronic constipation DM type 2, goal HbA1c < 7% ([facility]) Gastroparesis GERD (gastroesophageal reflux disease) HTN, goal below 130/80 Other proteinuria No family history on file. Social History Socioeconomic History Marital status: Single Tobacco Use Smoking status: Former Packs/day: 1.00 Years: 4.00 Additional pack years: 0.00 Total pack years: 4.00 Types: Cigarettes Quit date: 10/23/2007 Years since quittin.9 Smokeless tobacco: Never Vaping Use Vaping Use: Never used Substance and Sexual Activity Alcohol use: Yes Comment: Around holidays Drug use: No Sexual activity: Yes Partners: Female Social Determinants of Health Food Insecurity: No Food Insecurity (04/07/2021) Hunger Vital Sign Worried About Running Out of Food in the Last Year: Never true Ran Out of Food in the Last Year: Never true OBJECTIVE/PHYSICAL EXAMINATION: BP 168/96 | Pulse 84 | Resp 16 | Wt 101.4 kg (223 lb 8 oz) | BMI 33.98 kg/m | BSA 2.21 m General: No acute distress. A+Ox3. HEENT: Normocephalic. Atraumatic. PERRL. EOMI. Conjunctiva and sclera clear. NECK: No carotid bruits. No JVD. Carotid upstrokes are brisk. Heart: RRR. S1 and S2 noted. No murmur. No rubs or gallops. PMI non displaced. Lungs: Clear to auscultation. No wheezes.No rhonchi. No rales. Abdomen: Normal bowel sounds. Soft. Nontender. No masses or organomegaly. No abdominal bruits. Extremities: No edema. No clubbing or cyanosis. Pulses: radial=2/4, posterior tibial=2/4, dorsalis pedis = 2/4. NEURO: No focal deficits. PSYCH: Appropriate affect and insight. DATA Labs & Imaging Reviewed Below: Echocardiogram 06/16/2023 The examination is adequate to evaluate the referral indication. The left ventricular cavity size is normal. The LV wall thickness is mildly increased (concentric). There is moderate diffuse left ventricular hypokinesis. The qualitative LV ejection fraction is 35-39% (moderately reduced). There is no significant valvular disease EKG 06/15/2023 Normal sinus rhythm Left axis deviation Right bundle branch block Possible Lateral infarct , age undetermined Inferior infarct , age undetermined Abnormal ECG No previous ECGs available Ventricular Rate: 92 Lipid Panel Results: Results for orders placed or performed in visit on 05/18/23 LIPID PANEL WITHOUT DIRECT LDL Result Value Ref Range Triglycerides 767 (H) <=174 mg/dL Cholesterol 263 (H) <200 mg/dL HDL Cholesterol 47 >39 mg/dL Non-HDL Cholesterol 216 (H) <=159 mg/dL LDL Cholesterol 63 <=129 mg/dL ASSESSMENT/PLAN: 43 year old year old male 1. HFrEF (heart failure with reduced ejection fraction) (HCC) -recent echocardiogram as noted above does show some improvement in LVEF currently 35-39%. -admits noncompliance to most medications therapies. Will send new prescription for Toprol-XL today to restart, continue current Entresto prescription. Placed new [facility] pharmacy referral and will inquire about cost programs or grants to help pay for patient's medications as he is now without insurance and in the process of applying for disability -stressed importance of [facility] clinic to help assist in optimizing medication management for poorly controlled diabetes and heart failure -would like to repeat echo in 6 months assuming patient becomes compliant with medication therapiesfor close surveillance of LVEF dysfunction -discussed if LVEF would drop below 35%, would need to discuss necessity for possible ICD placement. - PHARMACIST MEDS THERAPY MGMT REFERRAL OP 2. HTN, goal below 130/80 -significantly elevated today no improvement with repeat. Patient has not been compliant with medication therapies partially due to cost -please restart Toprol-XL as well as HCTZ. Continue Entresto and will notify MTM in regards to costconcern - PHARMACIST MEDS THERAPY MGMT REFERRAL OP - Metoprolol Succinate 25 MG Oral Capsule ER 24 Hour Sprinkle; Take 25 mg by mouth in the morning. Dispense: 34 Capsule; Refill: 11 - hydroCHLOROthiazide 25 MG Oral Tablet (Hydrodiuril); Take 1 Tablet by mouth in the morning. Dispense: 30 Tablet; Refill: 2 3. High triglycerides -new script sent to pharmacy for patient to restart atorvastatin repeat labs in 6 months -discussed concern for elevated triglycerides in conjunction with poorly controlled blood sugars. - Atorvastatin Calcium 40 MG Oral Tablet (Lipitor); Take 1 Tablet by mouth in the morning. Dispense: 30 Tablet; Refill: 3 - PHARMACIST MEDS THERAPY MGMT REFERRAL OP 4. Type 2 diabetes mellitus with hemoglobin A1c goal of less than 7.0% ([facility]) -new MTM referral placed for poorly controlled diabetes as well as heart failure. Discussed concerns with medication compliance and verbalized understanding of cost issue - PHARMACIST MEDS THERAPY MGMT REFERRAL OP DISPOSITION: Follow up 6 months or if symptoms worsen/fail to improve. All questions were answered to the patients satisfaction. Patient advised to report to ED with any and all emergencies. The patient agrees to the above plan and will call with additional questions or concerns. RAN [facility], [address] [address] I spent a total of 40 minutes on the date of service in preparation, delivery, and documentation ofthe care provided to Man Day excluding any time spent in the performance of separately billed services. This chart was completed in part utilizing [employer] Voice Recognition Software. Grammatical errors, random word insertions, pronoun errors, and incomplete sentences are an occasional consequence of this system due to software limitations, ambient noise, and hardware issues. Any formal questions or concerns about the content, text, or information contained within the body of this dictation should be directly addressed to the provider for clarification. documented in this encounter Nursing Notes * Martinez Wolf LPN - 09/15/2023 9:25 AM EST Patient identified by full name and date of Chief Complaint Patient presents with Follow Up 3 month follow up. Feels drained all the time. Palpitations throughout the day and will last for a short period and feels wiped. SOB after palpitations. Feels like he is going to fall over with balance issues. Minor edema in feet that subsides. No appetite and not eating well due episodes of ketoacidosis. Denies chest pain and dizziness. Examination Room: 7 Name: Man Day Date of : (1980). Reason for Visit: 3 month follow up Interim Hospitalization(s): Denies Problems/Concerns: See chief complaint Chest Pain/SOB: See chief complaint [facility] Discussed: Not applicable [facility] is a way you can talk to your provider online through e-mail. Would you like to sign up? I can activate it for you? DECLINED Patient was instructed to not get up on the exam table until directed and assisted by their provider; patient is to remain seated in the chair/ wheelchair/ exam table for fall prevention and safety reasons. Patient is aware to have assistance to step down off exam table with personnel. Patient voiced full comprehension of instructions. documented in this encounter Plan of Treatment Upcoming Encounters Date Type Department Care Team (Late st Contact Info) Description 11/20/2023 4:20 PM EST Office Visit Family Medicine [address] [place] [phone] Dany Caruso MD [address] [place] [address] [place] [id number] 03/20/2024 8:30 AM EDT Office Visit Cardiology, [facility] [address] [place] [phone] Joaquina Hernández CRNP [address] [place] [address] Scheduled Referrals Name Type Priority Associated Diagnoses Orde r Schedule PHARMACIST MEDS THERAPY MGMT REFERRAL OP Referral Within 10 days (routine) High triglycerides HTN, goal below 130/80 Type 2 diabetes mellitus with hemoglobin A1c goal of less than 7.0% (HCC) HFrEF (heart failure with reduced ejection fraction) (HCC) Ordered: 09/15/2023 Health Maintenance Due Date Last Done Comments [...] 03/24/2022, Additional history exists GFR 05/18/2024 05/18/2023, 04/2 04/2023, 07/06/2022, Additional history exists Lipid Panel [...] failure with reduced ejection fraction) (HCC)- Primary HTN, goal below 130/80 Unspecified essential hypertension High triglycerides Pure hyperglyceridemia Type 2 diabetes mellitus with hemoglobin A1c goal of less than 7.0% (HCC) documented in this encounter Care Teams Bumper Machine Operator Relationship Specialty Start Date End Date Dany Caruso MD [address] [place] [address] [place] [address] PCP - General Family Medicine 04/07/21 documented as of this encounter"
--- OUTSIDE RECORDS SUMMARY | 2023-11-18 22:57 | External Medical Summary | Summary of Care ---
Author Name Unknown Organization [facility] Address [address] [place] [address] Phone [phone] Care Team Providers Care Disability Insurance Claim Examiner Name Role Phone Dany Caruso MD Primary Care Provide r Encounter Details Date Type Department Care Team (Late st Contact Info) Description 10/06/2023 Telephone Cardiology, [facility] [address] [place] [address] [facility] [address] [place], [place] [id number] Allergies Active Allergy Reactions Criticality Noted Date Comments Morphine 12/27/2013 Nausea, vomiting, diaphoresis Sulfa Antibiotics Itching 10/04/2011 documented as of this encounter (statuses as of 10/11/2023) Medications Medication Sig Dispensed Refills Start Date End Date Status OneTouch Verio w/Device KitIndications:Type 2 diabetes mellitus with hemoglobin A1c goal of less than 7.0% ([facility]) Use to test once a day E11.9 1 Kit 0 03/23/2022 Active OneTouch UltraSoft LancetsIndications:Ty pe 2 diabetes mellitus with hemoglobin A1c goal of less than 7.0% ([facility]) Use to test twice a day. E11.9 360 Each 1 03/23/2022 Active Budesonide-Formoterol Fumarate 80-4.5 MCG/ACT Inhalation Aerosol (Symbicort)Indication s:SOB (shortness of breath) Inhale by mouth 2 [...] U/F 32G X 4 MM (Insulin Pen Needle)Indications:Ty pe 2 diabetes mellitus with autonomic neuropathy, unspecified whether chcf insulin use (HCC) Use with insulin once daily 100 Each 1 06/29/2022 Active Sacubitril-Valsartan 24-26 MG Oral Tablet (Entresto) Take 1 Tablet by mouth in the morning and 1 Tablet before bedtime. 0 Active OneTouch Verio In Vitro Strip (Glucose Blood)Indications:Typ e 2 diabetes mellitus with hemoglobin A1c goal of less than 7.0% ([facility]) Use to test blood sugar twice a day. E11.9 200 Strip 3 08/31/2022 Active Cyclobenzaprine HCl 10 MG Oral Tablet (Flexeril)Indications :Shoulder strain, left, initial encounter Take 1 Tablet (10 mg) by mouth at bedtime as needed for Muscle spasms. 10 Tablet 0 09/20/2022 Active FreeStyle Kirit 2 SensorIndications:Typ e 2 diabetes mellitus with hemoglobin A1c goal of less than 7.0% ([facility]) Use as directed. Use to check glucose 3 times a day DXe11.9 2 Each 3 12/07/2022 Active Pantoprazole Sodium 40 MG Oral Tablet Delayed Release (Protonix)Indications :Gastroesophageal reflux disease without esophagitis Take 1 Tablet by mouth in the morning. 30 minutes before the first meal of the day. Do not crush, split or chew the tablet. 30 Tablet 5 05/18/2023 Active glipiZIDE ER 10 MG Oral Tablet Extended Release 24 Hour (glipiZIDE XL)Indications:Type 2 diabetes mellitus with hemoglobin A1c goal of less than 7.0% ([facility]) Take 1 Tablet by mouth in the morning. 30 minutes before a meal.. 30 Tablet 5 05/31/2023 Active Insulin Glargine Solostar 100 UNIT/ML Subcutaneous Solution Pen-injector (Lantus SoloStar) Inject 45 Units under the skin daily. 15 mL 5 08/30/2023 Active Gabapentin 100 MG Oral Capsule (Neurontin)Indication s:Neuropathy TAKE 1 CAPSULE BY MOUTH IN THE MORNING AND 1 CAPSULE AT NOON AND 1 CAPSULE BEFORE BEDTIME 270 Capsule 1 08/30/2023 Active Atorvastatin Calcium 40 MG Oral Tablet (Lipitor)Indications: High triglycerides Take 1 Tablet by mouth in the morning. 30 Tablet 3 09/15/2023 Active Metoprolol Succinate 25 MG Oral Capsule ER 24 Hour SprinkleIndications:H TN, goal below 130/80 Take 25 mg by mouth in the morning. 34 Capsule 11 09/15/2023 Active hydroCHLOROthiazide 25 MG Oral Tablet (Hydrodiuril)Indicati ons:HTN, goal below 130/80 Take 1 Tablet by mouth in the morning. 30 Tablet 2 09/15/2023 Active Spironolactone 25 MG Oral Tablet (Aldactone)Indication s:HFrEF (heart failure with reduced ejection fraction) ([facility]) Take 1 Tablet by mouth in the morning. 30 Tablet 3 10/06/2023 Active Fenofibrate 145 MG Oral Tablet (Tricor)Indications:H igh triglycerides Take 1 Tablet by mouth in the morning. 30 Tablet 3 10/06/2023 Active Losartan Potassium 25 MG Oral Tablet (Cozaar)Indications:H FrEF (heart failure with reduced ejection fraction) ([facility]) Take 1 Tablet by mouth in the morning. 30 Tablet 1 10/11/2023 Active documented as of this encounter (statuses as of 10/11/2023) Active Problems Problem Noted Date Diagnosed Date [...] as of this encounter (statuses as of 10/11/2023) Resolved Problems Problem Noted Date Diagnosed Date Resolved Date Type 2 diabetes mellitus wit h autonomic neuropathy 06/29/2022 12/19/2022 Neuropathy 04/07/2021 12/19/2022 Diabetic ketoacidosis withou t coma associated with type 2 diabetes mellitus 04/07/2021 05/06/2021 Overview: 02/2021 Fatigue 11/13/2011 05/10/2022 Esophageal reflux 10/04/2011 04/07/2021 documented as of this encounter (statuses as of 10/11/2023) Immunizations Name Administration Dates Next Due Seasonal [...] encounter Miscellaneous Notes * Telephone Encounter - Fern Sneed OSA - 10/11/2023 1:53 PM EST Pt returning call. Asking for call back at [phone]. Thank you. * Telephone Encounter - Darcy Sepulveda RPh - 10/11/2023 1:23 PM EST Contacts Type Contact Phone/Fax 10/11/2023 01:30 PM EST Phone (Outgoing) Man Day (Self) [phone] (M) Left Message Spoke with pt regarding [employer] PAP and Entresto. Pt has 1 day supply left of Entresto and alreadyused 1 month free trial card. Informed him that PAP process may take 2-3 weeks to receive medication. Therefore, will need to start a medication temporarily. Pt is agreeable to start Losartan 25 mg daily. Sent Rx to pharmacy for chicken picker. Will f/u at already scheduled appt on 10/20. Pt plans to fill out patient portion of PAP on Monday at [facility]. Will then send that form out for approval. Darcy Sepulveda PharmD PGY1 Pain Management Specialist 10/11/2023 1:27 PM * Telephone Encounter - Darcy Sepulveda RPh - 10/06/2023 3:05 PM EST Patient cannot afford Entresto due to lack of insurance, please assess for assistance. Pt has 5 daysupply left. Consider looking into [employer] finance clerk PAP if applicable. Diagnosis: Heart failure Medication: Entresto 24/26 mg BID Please also assess for cost assistance with Lantus. Diagnosis: Type 2 diabetes: Lantus 46 units daily Thank you, Darcy Sepulveda PharmD PGY1 Pain Management Specialist 10/06/2023 3:07 PM documented in this encounter Plan of Treatment Upcoming Encounters Date Type Department Care Team (Late st Contact Info) Description 10/20/2023 9:00 AM EST Telemedicine Cardiology, [facility] [address] [facility] [place] [address] [facility] Cardiology [facility] [address] [facility] [place] [address] 11/20/2023 2:00 PM EST Office Visit Family Medicine [facility] Camila [address] [place] [address] [place] [phone] Dany Caruso MD [address] [place] [address] [place] [address] 03/20/2024 8:30 AM EDT Office Visit Cardiology, [facility] [address] [place] [address] Joaquina Hernández CRNP [address] [place] [address] Health Maintenance Due Date Last Done Comments [...] *NEPHROLOGY REFERRAL DUE TO RESISTANT HTN 10/08/2023 HbA1c 11/18/2023 05/18/2023, 11/23, 07/06/2022, Additional history exists Diabetic Foot Exam 12/19/2023 12/19/2022, 05/06/2021 Albumin/Creatinine Ratio 05/18/2024 023, 07/06/2022, 03/24/2022, Additional history exists GFR 05/18/2024 05/18/2023, 01/22, 07/06/2022, Additional history exists Lipid Panel 05/18/2028 [...] Primary documented in this encounter Care Teams Disability Insurance Claim Examiner Relationship Specialty Start Date End Date Dany Caruso MD [address] [place] [address] [place] [phone] PCP - General Family Medicine 04/07/21 documented as of this encounter
--- OUTSIDE RECORDS SUMMARY | 2023-11-18 22:57 | External Medical Summary | Summary of Care ---
Author Name Unknown Organization [facility] Address [address] [place] [address] Phone [phone] Care Team Providers Care Trust Vault Clerk Name Role Phone Dany Caruso MD Primary Care Provide r Encounter Details Date Type Department Care Team (Late st Contact Info) Description 10/06/2023 Telephone Cardiology, [facility] [address] [place] [address] [facility] [address] [place], [place] [phone] Allergies Active Allergy Reactions Criticality Noted Date Comments Morphine 12/27/2013 Nausea, vomiting, diaphoresis Sulfa Antibiotics Itching 10/04/2011 documented as of this encounter (statuses as of 10/13/2023) Medications Medication Sig Dispensed Refills Start Date End Date Status OneTouch Verio w/Device KitIndications:Type 2 diabetes mellitus with hemoglobin A1c goal of less than 7.0% ([facility]) Use to test once a day E11.9 1 Kit 0 03/23/2022 Active OneTouch UltraSoft LancetsIndications:Ty pe 2 diabetes mellitus with hemoglobin A1c goal of less than 7.0% ([facility]) Use to test twice a day. [...] diabetes mellitus with autonomic neuropathy, unspecified whether shelter insulin use (HCC) Use with insulin once daily 100 Each 1 06/29/2022 Active Sacubitril-Valsartan 24-26 MG Oral Tablet (Entresto) Take 1 Tablet by mouth in the morning and 1 Tablet before bedtime. 0 Active OneTouch Verio In Vitro Strip (Glucose Blood)Indications:Typ e 2 diabetes mellitus with hemoglobin A1c goal of less than 7.0% ([facility]) Use to test blood sugar twice a day. E11.9 200 Strip 3 08/31/2022 Active Cyclobenzaprine HCl 10 MG Oral Tablet (Flexeril)Indications :Shoulder strain, left, initial encounter Take 1 Tablet (10 mg) by mouth at bedtime as needed for Muscle spasms. 10 Tablet 0 09/20/2022 Active FreeStyle Kirit 2 SensorIndications:Typ e 2 diabetes mellitus with hemoglobin A1c goal of less than 7.0% ([facility]) Use as directed. Use to check [...] A1c goal of less than 7.0% ([facility]) Take 1 Tablet by mouth [...] s:HFrEF (heart failure with reduced ejection fraction) ([facility]) Take 1 Tablet by mouth in the morning. 30 Tablet 3 10/06/2023 Active Fenofibrate 145 MG Oral Tablet (Tricor)Indications:H igh triglycerides Take 1 Tablet by mouth in the morning. 30 Tablet 3 10/06/2023 Active Losartan Potassium 25 MG Oral Tablet (Cozaar)Indications:H FrEF (heart failure with reduced ejection fraction) ([facility]) Take 1 Tablet by mouth in the morning. 30 Tablet 1 10/11/2023 Active documented as of this encounter (statuses as of 10/13/2023) Active Problems Problem Noted Date Diagnosed Date [...] as of this encounter (statuses as of 10/13/2023) Resolved Problems Problem Noted Date Diagnosed Date Resolved Date Type 2 diabetes mellitus wit h autonomic neuropathy 06/29/2022 12/19/2022 Neuropathy 04/07/2021 12/19/2022 Diabetic ketoacidosis withou t coma associated with type 2 diabetes mellitus 04/07/2021 05/06/2021 Overview: 02/2021 Fatigue 11/13/2011 05/10/2022 Esophageal reflux 10/04/2011 04/07/2021 documented as of this encounter (statuses as of 10/13/2023) Immunizations Name Administration Dates Next Due Seasonal [...] Telephone Encounter - Becca Phillips RPh - 10/13/2023 12:53 PM EST Provider portion emailed to ino for her signature Pt portion at [facility] waiting for pt fruit picker/signature Becca Phillips Pharm D Clinical Pharmacist Cardiology 10/13/2023,12:53 PM * Telephone Encounter - Fern Sneed, MYLA - 10/11/2023 1:53 PM EST Pt returning call. Asking for call back at [phone]. Thank you. * Telephone Encounter - Darcy Sepulveda RPh - 10/11/2023 1:23 PM EST Contacts Type Contact Phone/Fax 10/11/2023 01:30 PM EST Phone (Outgoing) Man Day (Self) [phone] (M) Left Message Spoke with pt regarding [employer] PAP and Entresto. Pt has 1 day supply left of Entresto and alreadyused 1 month free trial card. Informed him that PAP process may take 2-3 weeks to receive medication. Therefore, will need to start a medication temporarily. Pt is agreeable to start Losartan 25 mg daily. Sent Rx to pharmacy for fruit picker. Will f/u at already scheduled appt on 10/20. Pt plans to fill out patient portion of PAP on Monday at [facility]. Will then send that form out for approval. Darcy Sepulveda PharmD PGY1 Imaging Science Professor 10/11/2023 1:27 PM * Telephone Encounter - Darcy Sepulveda RPh - 10/06/2023 3:05 PM EST Patient cannot afford Entresto due to lack of insurance, please assess for assistance. Pt has 5 daysupply left. Consider looking into [employer] building mover PAP if applicable. Diagnosis: Heart failure Medication: Entresto 24/26 mg BID Please also assess for cost assistance with Lantus. Diagnosis: Type 2 diabetes: Lantus 46 units daily Thank you, Darcy Sepulveda PharmD PGY1 Imaging Science Professor 10/06/2023 3:07 PM documented in this encounter Plan of Treatment Upcoming Encounters Date Type Department Care Team (Late st Contact Info) Description 10/20/2023 9:00 AM EST Telemedicine Cardiology, [facility] [address] [place] [address] [facility] Cardiology [address] [place] [address] 11/20/2023 2:00 PM EST Office Visit [address] [place] [phone] Dany Caruso MD [address] [place] [address] [place] [address] 03/20/2024 8:30 AM EDT [facility] [address] [place] [address] Ino Hernández CRNP [address] [place] [address] Health Maintenance Due Date Last Done Comments [...] Additional history exists Lipid Panel 05/18/2028 05/18/2023, 060 11/2021, 08/10/2021, Additional history exists GARDASIL-HPV IMMUNIZATION SERIES [...] Primary documented in this encounter Care Teams Trust Vault Clerk Relationship Specialty Start Date End Date Dany Caruso MD [address] [place] [address] [place] [phone] PCP - General Family Medicine 04/07/21 documented as of this encounter
--- OUTSIDE RECORDS SUMMARY | 2023-11-18 22:57 | External Medical Summary ---
Author Name Unknown Address Unknown Organization K01:[facility]ORY [facility] - [address] [place] [address] Laboratory Report Ordering Provider Test Date Status BENEDICTSEBASEVELINA 10/13/2023 13:25:25 Final Observation Date Value Abnormality Reference (Units ) Status LDL, (direct) 10/13/2023 13:25:25 101 <=129 (mg/dL) Final LDL Cholesterol Reference Ra nges (mg/dL):
<70 Target level for high risk ASCVD patient
<100 Optimal for general population
100-129 Near optimal for general population
130-159 Borderline high
160-189 High
>=190 Very high Performing Location [facility]ORY [facility] - [address] [place] [address]
--- OUTSIDE RECORDS SUMMARY | 2023-11-18 22:57 | External Medical Summary ---
Author Name Unknown Address Unknown Organization K01:[facility] [place] [address] [facility] [facility] [address] Laboratory Report Ordering Provider Test Date Status ISAAC MCMULLEN 10/13/2023 13:25:25 Final Observation Date Value Abnormality Reference (Units ) Status HbA1C 10/13/2023 13:25:25 10.0 Above high normal 4. 0-5.6 (%) Final The use of HbA1c to monitor glycemic status is based on normal hemoglobin and HbA composition. This test should not be used in patients with abnormal hemoglobin that affects the half life of the red blood cell or the in vivo glycation rates. Glucose, estimated average 10/13/2023 13:25:25 240 Above high normal <126 (mg/dL) Nir coronado Performing Location [facility] [place] [facility] [address] [facility] [address]
--- OUTSIDE RECORDS SUMMARY | 2023-11-18 22:57 | External Medical Summary | Summary of Care ---
Author Name Unknown Organization [facility] Address [address] [place] [address] Phone [phone] Care Team Providers Care Thermit Welding Machine Operator Name Role Phone Dany Caruso MD Primary Care Provide r Encounter Details Date Type Department Care Team (Late st Contact Info) Description 10/06/2023 Telephone Cardiology, [facility] [address] [place] [address] [facility] [address] [place], [place] [phone] Allergies Active Allergy Reactions Criticality Noted Date Comments Morphine 12/27/2013 Nausea, vomiting, diaphoresis Sulfa Antibiotics Itching 10/04/2011 documented as of this encounter (statuses as of 10/18/2023) Medications Medication Sig Dispensed Refills Start Date End Date Status OneTouch Verio w/Device KitIndications:Type 2 diabetes mellitus with hemoglobin A1c goal of less than 7.0% ([facility]) Use to test once a day E11.9 1 Kit 0 03/23/2022 Active OneTouch UltraSoft LancetsIndications:Ty pe 2 diabetes mellitus with hemoglobin A1c goal of less than 7.0% ([facility]) Use to test twice a [...] diabetes mellitus with autonomic neuropathy, unspecified whether half-way insulin use (HCC) Use with insulin once daily 100 Each 1 06/29/2022 Active Sacubitril-Valsartan 24-26 MG Oral Tablet (Entresto) Take 1 Tablet by mouth in the morning and 1 Tablet before bedtime. 0 Active OneTouch Verio In Vitro Strip (Glucose Blood)Indications:Typ e 2 diabetes mellitus with hemoglobin A1c goal of less than 7.0% ([facility]) Use to test blood sugar twice a day. E11.9 200 Strip 3 08/31/2022 Active Cyclobenzaprine HCl 10 MG Oral Tablet (Flexeril)Indications :Shoulder strain, left, initial encounter Take 1 Tablet (10 mg) by mouth at bedtime as needed for Muscle spasms. 10 Tablet 0 09/20/2022 Active FreeStyle Kirit 2 SensorIndications:Typ e 2 diabetes mellitus with hemoglobin A1c goal of less than 7.0% ([facility]) Use as directed. Use to [...] hemoglobin A1c goal of less than 7.0% ([facility]) Take 1 Tablet by mouth [...] s:HFrEF (heart failure with reduced ejection fraction) ([facility]) Take 1 Tablet by mouth in the morning. 30 Tablet 3 10/06/2023 Active Fenofibrate 145 MG Oral Tablet (Tricor)Indications:H igh triglycerides Take 1 Tablet by mouth in the morning. 30 Tablet 3 10/06/2023 Active Losartan Potassium 25 MG Oral Tablet (Cozaar)Indications:H FrEF (heart failure with reduced ejection fraction) ([facility]) Take 1 Tablet by mouth in the morning. 30 Tablet 1 10/11/2023 Active documented as of this encounter (statuses as of 10/18/2023) Active Problems Problem Noted Date Diagnosed Date [...] as of this encounter (statuses as of 10/18/2023) Resolved Problems Problem Noted Date Diagnosed Date Resolved Date Type 2 diabetes mellitus wit h autonomic neuropathy 06/29/2022 12/19/2022 Neuropathy 04/07/2021 12/19/2022 Diabetic ketoacidosis withou t coma associated with type 2 diabetes mellitus 04/07/2021 05/06/2021 Overview: 02/2021 Fatigue 11/13/2011 05/10/2022 Esophageal reflux 10/04/2011 04/07/2021 documented as of this encounter (statuses as of 10/18/2023) Immunizations Name Administration Dates Next Due Seasonal [...] Telephone Encounter - Becca Phillips RPh - 10/18/2023 1:17 PM EST Provider portion emailed back to Ronna Davies and placed in bin to be scanned into patients chart Becca Phillips Pharm D Clinical Pharmacist Cardiology 10/18/2023,1:17 PM * Telephone Encounter - Becca Phillips RPh - 10/13/2023 12:53 PM EST Provider portion emailed to ino for her signature Pt portion at [facility] waiting for pt mushroom picker/signature Becca Phillips Pharm D Clinical Pharmacist Cardiology 10/13/2023,12:53 PM * Telephone Encounter - Fern Sneed OSA - 10/11/2023 1:53 PM EST Pt returning call. Asking for call back at [phone]. Thank you. * Telephone Encounter - Darcy Sepulveda RPh - 10/11/2023 1:23 PM EST Contacts Type Contact Phone/Fax 10/11/2023 01:30 PM EST Phone (Outgoing) Shay Man Jermeias (Self) [phone] (M) Left Message Spoke with pt regarding [employer] PAP and Entresto. Pt has 1 day supply left of Entresto and alreadyused 1 month free trial card. Informed him that PAP process may take 2-3 weeks to receive medication. Therefore, will need to start a medication temporarily. Pt is agreeable to start Losartan 25 mg daily. Sent Rx to pharmacy for mushroom picker. Will f/u at already scheduled appt on 10/20. Pt plans to fill out patient portion of PAP on Monday at [facility]. Will then send that form out for approval. Darcy Sepulveda PharmD PGY1 Engine Designer 10/11/2023 1:27 PM * Telephone Encounter - Darcy Sepulveda RPh - 10/06/2023 3:05 PM EST Patient cannot afford Entresto due to lack of insurance, please assess for assistance. Pt has 5 daysupply left. Consider looking into [employer] outbound sales professional PAP if applicable. Diagnosis: Heart failure Medication: Entresto 24/26 mg BID Please also assess for cost assistance with Lantus. Diagnosis: Type 2 diabetes: Lantus 46 units daily Thank you, Darcy Sepulveda PharmD PGY1 Engine Designer 10/06/2023 3:07 PM documented in this encounter Plan of Treatment Upcoming Encounters Date Type Department Care Team (Late st Contact Info) Description 10/20/2023 9:00 AM EST Telemedicine Cardiology, [facility] [address] [facility] [place] [address] [facility] Card[facility] [place] [address] 11/20/2023 2:00 PM EST Office Visit Family [address] [phone] Dany Caruso MD [address] [place] [address] [place] [address] 03/20/2024 8:30 AM EDT Office Visit Cardiology, [facility] [address] [facility] [place] [address] Ino Hernández CRNP 132 [facility] [place] [address] Health Maintenance Due Date Last Done Comments [...] Primary documented in this encounter Care Teams Thermit Welding Machine Operator Relationship Specialty Start Date End Date Dany Caruso MD [address] [place] [address] [place] [address] PCP - General Family Medicine 04/07/21 documented as of this encounter
--- OUTSIDE RECORDS SUMMARY | 2023-11-18 22:57 | External Medical Summary | Summary of Care ---
Author Name Unknown Organization [facility] Address [address] [place] [address] Phone [phone] Care Team Providers Care Glazier Apprentice Name Role Phone Dany Caruso MD Primary Care Provide r Reason for Visit * Reason Comments Outpatient Testing Encounter Details Date Type Department Care Team (Late st Contact Info) Description 10/13/2023 1:20 PM EST Laboratory Laboratory, [facility] [address] [facility] [place] [id number] [facility] [address] [place] [address] High triglycerides; HFrEF (heart failure with reduced ejection fraction) ([facility]); Type 2 diabetes mellitus with hemoglobin A1c goal of less than 7.0% ([facility]) Allergies Active Allergy Reactions Criticality Noted Date Comments Morphine 12/27/2013 Nausea, vomiting, diaphoresis Sulfa Antibiotics Itching 10/04/2011 documented as of this encounter (statuses as of 10/13/2023) Medications Medication Sig Dispensed Refills Start Date End Date Status OneTouch Verio w/Device KitIndications:Type 2 diabetes mellitus with hemoglobin A1c goal of less than 7.0% ([facility]) Use to test once a day E11.9 1 Kit 0 03/23/2022 Active OneTouch UltraSoft LancetsIndications:Ty pe 2 diabetes mellitus with hemoglobin A1c goal of less than 7.0% ([facility]) Use to test twice a day. 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 0 Active OneTouch Verio In Vitro Strip (Glucose Blood)Indications:Typ e 2 diabetes mellitus with hemoglobin A1c goal of less than 7.0% ([facility]) Use to test blood sugar twice [...] goal of less than 7.0% ([facility]) Use as directed. Use to check [...] goal of less than 7.0% ([facility]) Take 1 Tablet by mouth in [...] s:HFrEF (heart failure with reduced ejection fraction) (HCC) Take 1 Tablet by mouth in the morning. 30 Tablet 3 10/06/2023 Active Fenofibrate 145 MG Oral Tablet (Tricor)Indications:H igh triglycerides Take 1 Tablet by mouth in the morning. 30 Tablet 3 10/06/2023 Active Losartan Potassium 25 MG Oral Tablet (Cozaar)Indications:H FrEF (heart failure with reduced ejection fraction) (HCC) [...] Description 10/20/2023 9:00 AM EST Telemedicine Cardiology, [facility] [address] [facility] [place] [address] [facility] Cardiology [facility] [address] [place] [address] 11/20/2023 2:00 PM EST Office Visit Family Medicine [address] [phone] Dany Caruso MD [address] [place] [address] [place] [address] 03/20/2024 8:30 AM EDT Office Visit Cardiology, [facility] [address] [place] [address] Joaquina Hernández CRNP [address] [place] [address] Pending Results Name Type Priority Associated Diagnoses Date /Time LIPID PANEL WITH DIRECT LDL IF TG IS HIGH Lab Routine High triglycerides 10/13/2023 1:25 PM EST BASIC METABOLIC PANEL Lab Routine HFrEF (heart failure with reduced ejection fraction) ([facility]) 10/13/2023 1:25 PM EST HEMOGLOBIN A1C Lab Routine Type 2 diabetes mellitus with hemoglobin A1c goal of less than 7.0% ([facility]) 10/13/2023 1:25 PM EST Health Maintenance Due Date Last Done Comments [...] Additional history exists Lipid Panel 05/18/2028 05/18/2023, 06/0 11/2021, 08/10/2021, Additional history exists GARDASIL-HPV IMMUNIZATION SERIES Aged Out No longer eligible based on patient's age to complete this topic MENINGOCOCCAL (MENACTRA/MENVEO) Aged Out No longer eligible based on patient's age to complete this topic documented as of this encounter Medical Devices Not on filedocumented as of this encounter Visit Diagnoses Diagnosis High triglycerides Pure hyperglyceridemia HFrEF (heart failure with reduced ejection fraction) (HCC) Type 2 diabetes mellitus with hemoglobin A1c goal of less than 7.0% (HCC) documented in this encounter Care Teams Glazier Apprentice Relationship Specialty Start Date End Date Dany Caruso MD [address] [place] [address] [place] [address] PCP - General Family Medicine 04/07/21 documented as of this encounter
--- OUTSIDE RECORDS SUMMARY | 2023-11-18 22:58 | External Medical Summary | Summary of Care ---
Author Name Unknown Organization [facility] Address [address] [place] [address] Phone [phone] Care Team Providers Care Aboriginal Ceremonial Celebrant Name Role Phone Dany Caruso MD Primary Care Provide r Encounter Details Date Type Department Care Team (Late st Contact Info) Description 08/15/2023 Orders Only Outcomes Research Department [address] [place] [address] Abigail Adams CHRA [employer] Other*[id number] Allergies Active Allergy Reactions Criticality Noted Date Comments Morphine 12/27/2013 Nausea, vomiting, diaphoresis Sulfa Antibiotics Itching 10/04/2011 documented as of this encounter (statuses as of 08/15/2023) Medications Medication Sig Dispensed Refills Start Date End Date Status OneTouch Verio w/Device KitIndications:Type 2 diabetes mellitus with hemoglobin A1c goal of less than 7.0% ([facility]) Use to test once a day E11.9 1 Kit 0 03/23/2022 Active Atorvastatin Calcium 40 MG Oral Tablet (Lipitor)Indication s:High triglycerides Take by mouth 1 Tablet in the morning. 30 Tablet 3 03/23/2022 Active OneTouch UltraSoft LancetsIndications: Type 2 diabetes mellitus with hemoglobin A1c goal of less than 7.0% ([facility]) Use to test twice a day. E11.9 360 Each 1 03/23/2022 Active Budesonide-Formoter ol Fumarate 80-4.5 MCG/ACT Inhalation Aerosol (Symbicort)Indicati ons:SOB (shortness of breath) Inhale by mouth 2 Puffs in the morning AND 2 Puffs before bedtime. 10.2 g 1 05/10/2022 Active Metoprolol Succinate 25 MG Oral Capsule ER 24 Hour Sprinkle Take by mouth 25 mg daily . 0 05/20/2022 Active Thiamine HCl 50 MG Oral Tablet Take 0.5 Tablets by mouth in the morning. 0 05/20/2022 Active Magnesium Oxide (Elemental) 400 MG Oral Tablet Take by mouth 400 mg daily . 0 05/20/2022 Active BD Pen Needle Imelda U/F 32G X 4 MM (Insulin Pen Needle)Indications: Type 2 diabetes mellitus with autonomic neuropathy, unspecified whether long-term insulin use (HCC) Use with insulin once daily 100 Each 1 06/29/2022 Active Sacubitril-Valsarta n 24-26 MG Oral Tablet (Entresto) Take 1 Tablet by mouth in the morning and 1 Tablet before bedtime. 0 Active Empagliflozin 25 MG Oral Tablet (Jardiance)Indicati ons:Type 2 diabetes mellitus with hemoglobin A1c goal of less than 7.0% ([facility]) Take by mouth 1 Tablet in the morning. 90 Tablet 3 07/08/2022 Active OneTouch Verio In Vitro Strip (Glucose Blood)Indications:T ype 2 diabetes mellitus with hemoglobin A1c goal of less than 7.0% ([facility]) Use to test blood sugar twice a day. E11.9 200 Strip 3 08/31/2022 Active Cyclobenzaprine HCl 10 MG Oral Tablet (Flexeril)Indicatio ns:Shoulder strain, left, initial encounter Take 1 Tablet (10 mg) by mouth at bedtime as needed for Muscle spasms. 10 Tablet 0 09/20/2022 Active FreeStyle Kirit 2 SensorIndications:T ype 2 diabetes mellitus with hemoglobin A1c goal of less than 7.0% ([facility]) Use as directed. Use to check glucose 3 times a day DXe11.9 2 Each 3 12/07/2022 Active Gabapentin 100 MG Oral Capsule (Neurontin)Indicati ons:Neuropathy TAKE 1 CAPSULE BY MOUTH IN THE MORNING AND 1 CAPSULE AT NOON AND 1 CAPSULE BEFORE BEDTIME 270 Capsule 3 01/11/2023 Active hydroCHLOROthiazide 25 MG Oral Tablet (Hydrodiuril)Indica tions:HTN, goal below 130/80 Take 1 Tablet by mouth in the morning. 30 Tablet 2 01/18/2023 Active Pantoprazole Sodium 40 MG Oral Tablet Delayed Release (Protonix)Indicatio ns:Gastroesophageal reflux disease without esophagitis Take 1 Tablet by mouth in the morning. 30 minutes before the first meal of the day. Do not crush, split or chew the tablet. 30 Tablet 5 05/18/2023 Active Levemir FlexTouch 100 UNIT/ML Subcutaneous Solution Pen-injector (Insulin Detemir)Indications :Type 2 diabetes mellitus with hemoglobin A1c goal of less than 7.0% (HCC) inject 45 units under the skin daily 45 mL 0 05/19/2023 Active glipiZIDE ER 10 MG Oral Tablet Extended Release 24 Hour (glipiZIDE XL)Indications:Type 2 diabetes mellitus with hemoglobin A1c goal of less than 7.0% (HCC) Take 1 Tablet by mouth in the morning. 30 minutes before a meal.. 30 Tablet 5 05/31/2023 Active Linzess 145 MCG Oral Capsule (linaCLOtide)Indica tions:Constipation, unspecified constipation type Take 1 Capsule by mouth daily as needed for Other (constipation). 90 Capsule 0 06/01/2023 Active Additional Information Patient not taking.Reported on 06/15/2023 documented as of this encounter (statuses as of 08/15/2023) Active Problems Problem Noted Date Diagnosed Date [...] as of this encounter (statuses as of 08/15/2023) Resolved Problems Problem Noted Date Diagnosed Date Resolved Date Type 2 diabetes mellitus wit h autonomic neuropathy 06/29/2022 12/19/2022 Neuropathy 04/07/2021 12/19/2022 Diabetic ketoacidosis withou t coma associated with type 2 diabetes mellitus 04/07/2021 05/06/2021 Overview: 02/2021 Fatigue 11/13/2011 05/10/2022 Esophageal reflux 10/04/2011 04/07/2021 documented as of this encounter (statuses as of 08/15/2023) Immunizations Name Administration Dates Next Due Seasonal Influenza, Split, IIV3, With Preserve, Inj 10/04/2011 TDAP (age 11 and older)(Adacel) 08/15/2011 documented as of this encounter Social History Tobacco Use Types Packs/Day Years Used Date Smoking Tobacco: Former Cigarettes 1 4 Q uit: 10/23/2007 Smokeless Tobacco: Never Alcohol Use Standard Drinks/Week Comments No 0 (1 standard drink = 0.6 oz pur e alcohol) PHQ-2 Answer Date Recorded PHQ Adult Total Score 0 08/31/2022 Sex and Gender Information Value Date Recorded Sex Assigned at Not on file Gender Identity Not on file Sexual Orientation Not on file Job Start Date Occupation Industry Not on file Not on file Not on file documented as of this encounter Plan of Treatment Upcoming Encounters Date Type Department Care Team (Late st Contact Info) Description 08/23/2023 6:10 PM EDT Pharmacy Pharmacy, [address] [place] [address] [place] [address] 09/15/2023 9:30 AM EST Office Visit Cardiology, [facility] [address] [facility] [place] [address] Joaquina Hernández CRNP [address] [place] [address] 11/20/2023 4:20 PM EST Office Visit Family Medicine [address] [place] [phone] Dany Caruso MD [address] [place] [address] [place] [address] Scheduled Orders Name Type Priority Associated Diagnoses Orde r Schedule MYCODE SUBSEQUENT ADULT Lab Routine [employer] Other*[id number] Every 6 Months for 2 Occurrences starting 08/15/2023 until 09/03/2024 Health Maintenance Due Date Last Done Comments Hepatitis B (1 of 3 - 3-dose series) 1979 COVID-19 Vaccine (#1) 1979 Pneumococcal Vaccine: Pediatrics (0 to 5 Years) and At-Risk Patients (6 to 64 Years) (1 - PCV) 1985 HIV Screening 1994 Hepatitis C Screening 1997 DTaP,Tdap,and Td Vaccines (2 - Td or Tdap) 08/15/2021 08/15/2011 DIABETES-EYE EXAM 05/02/2023 05/02/2022, , 04/07/2021 Influenza Vaccine (FLU [...] as of this encounter Visit Diagnoses Diagnosis [employer] Other*[id number] documented in this encounter Care Teams Aboriginal Ceremonial Celebrant Relationship Specialty Start Date End Date Dany Caruso MD [address] [place] [address] [place] [phone] PCP - General Family Medicine 04/07/21 documented as of this encounter
--- OUTSIDE RECORDS SUMMARY | 2023-11-18 22:58 | External Medical Summary | Summary of Care ---
Author Name Unknown Organization [facility] Address [address] [place] [address] Phone [phone] Care Team Providers Care Senior Underwriting Assistant Name Role Phone Dany Caruso MD Primary Care Provide r Reason for Visit * Reason Comments Dosage Adjustment In Person (Anticoag Cl inic) Diabetes Follow-Up Encounter Details Date Type Department Care Team Description 06/21/2023 Office Visit Pharmacy, [address] [place] [phone] [place] [address] Type 2 diabetes mellitus with hemoglobin A1c goal of less than 7.0% ([facility])* Allergies Active Allergy Reactions Severity Noted Date Comments Morphine 12/27/2013 Nausea, vomiting, diaphoresis Sulfa Antibiotics Itching 10/04/2011 documented as of this encounter (statuses as of 06/21/2023) Medications Medication Sig Dispensed Refills Start Date End Date Status OneTouch Verio w/Device KitIndications:Type 2 diabetes mellitus with hemoglobin A1c goal of less than 7.0% ([facility]) Use to test once a [...] diabetes mellitus with autonomic neuropathy, 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 (HCC) Use with insulin once [...] as of this encounter (statuses as of 06/21/2023) Active Problems Problem Noted Date Neuropathy 01/18/2023 Gastro-esophageal reflux disease without esophagitis 12/19/2022 Alcohol abuse, uncomplicated 12/19/2022 History of alcohol abuse 06/29/2022 HFrEF (heart failure with reduced ejecti on fraction) 05/25/2022 Acute pulmonary embolism without acute c or pulmonale 05/25/2022 Gastroparesis 05/06/2021 Other proteinuria 04/08/2021 High triglycerides 04/08/2021 Type 2 diabetes mellitus with hemoglobin A1c goal of less than 7.0% 04/07/2021 HTN, goal below 130/80 04/07/2021 Controlled substance agreement signed documented as of this encounter (statuses as of 06/21/2023) Resolved Problems Problem Noted Date Resolved Date Type 2 diabetes mellitus with autonomic neuropat hy 06/29/2022 12/19/2022 Neuropathy 04/07/2021 12/19/2022 Diabetic ketoacidosis withou t coma associated with type 2 diabetes mellitus 04/07/2021 05/06/2021 Overview: 02/2021 Fatigue 11/13/2011 05/10/2022 Esophageal reflux 10/04/2011 04/07/2021 documented as of this encounter (statuses as of 06/21/2023) Immunizations Name Administration Dates Next Due Seasonal Influenza, Split, IIV3, With Preserve, Inj 10/04/2011 TDAP (age 11 and older)(Adacel) 08/15/2011 documented as of this encounter Social History Tobacco Use Types Packs/Day Years Used Date Smoking Tobacco: Former Cigarettes 1 4 Q uit: 10/23/2007 Smokeless Tobacco: Never Alcohol Use Standard Drinks/Week Comments No 0 (1 standard drink = 0.6 oz pur e alcohol) Food Insecurity Answer Date Recorded Within the past 12 months, y ou worried that your food would run out before you got money to buy more. Never true 04/07/2021 Within the past 12 months, t he food you bought just didn't last and you didn't have money to get more. Never true 04/07/2021 Sex Assigned at Date Recorded Not on file Job Start Date Occupation Industry Not on file Not on file Not on file documented as of this encounter Progress Notes * Clara Collins, [facility] - 06/21/2023 9:45 AM EDT Medication Therapy [facility] - Diabetes Management Progress Note Man Day, identified by name and date of , is a 43 year old male being seen for diabetes management/education. Patient presents for return diabetic visit. DIABETES: Current diabetic medications: Jardiance 25 mg - 1 tablet daily Levemir Pen - 45 units daily (PCP increased to 45 units daily 05/19/23) Glipizide ER 10 mg - 1 tablet daily eGFR > 90 02/16/23 Medication Injection Site: Abdomen Lifestyle: Diet: unchanged Glucose Review/SMBG: Not available Hypoglycemia: Does your blood sugar go below 70 mg/dL? Patient not testing Hyperglycemia symptoms present: none Recent Labs Units 05/18/23 1336 12/06/22 1135 07/06/22 1248 HEMOGLOBIN A1C - [facility] % 11.5* 6.9* 8.0* Recent Labs Units 05/18/23 1336 02/16/23 1354 07/06/22 1248 ESTIMATED GLOMERULAR FILTRATION RATE - [facility] mL/min >90 >90 >90 CREATININE - [facility] mg/dL 0.8 0.8 0.8 HYPERTENSION: Patient on ACEi/ARB: yes BP Readings from Last 3 Encounters: 06/15/23 130/80 05/18/23 130/88 02/16/23 130/88 Blood pressure at goal: yes HYPERLIPIDEMIA: Patient is taking moderate or high intensity statin: yes HEALTH MAINTENANCE REVIEW: Health Maintenance Due Topic Date Due Hepatitis B (1 of 3 - 3-dose series) Never done COVID-19 Vaccine (1) Never done Pneumococcal Vaccine: Pediatrics (0 to 5 Years) and At-Risk Patients (6 to 64 Years) (1 - PCV) Never done HIV Screening Never done Hepatitis C Screening Never done DTaP,Tdap,and Td Vaccines (2 - Td or Tdap) 08/15/2021 DIABETES-EYE EXAM 05/02/2023 ASSESSMENT & PLAN: ICD-10-CM 1. Type 2 diabetes mellitus with hemoglobin A1c goal of less than 7.0% (HCC) E11.9 Considerations: Gastroparesis - caution with GLP1 titration. Patient preference to stop Trulicity. HF - avoid Actos Did not tolerate metformin: severe abd pain Blood sugars not available. Patient reports he has not been testing as he doesn't have time. Micheal discussion with patient about recent A1c increase from 6.9% --> 11.5%. Patient utilized FreestyleLibre in the past but states this fell off too much and stopped using. We discussed the option of utilizing Dexcom G6 as this goes on the stomach and is less likely fall off/get hit. Patient declinesand does not want something attached to him at this time. Discussed DM fatigue and overcoming this by putting aside the time to focus on blood sugars. Patient notes to increase neuropathy. We discussed the need to better control blood sugars in order to improve this. He has been struggling with gastroparesis, so GLP-1 not recommended at this time. Unable to appropriately assess/dose mealtime insulin without blood sugars. Patient expressed understanding. Discussed that without obtaining BG readings or making medication changes, MTM is limited in what help we are able to provide to patient. Agreeable to return x6 weeks with BG log. Provided with BG log book and instructed to bring this or meter to next visit. Routing to PCP to make aware. Patient is agreeable to SMBG 0-1 time(s) daily. Patient aware to contact clinic if any hypoglycemia before next visit. MEDICATION CHANGES: no change Diabetic Medications: Jardiance 25 mg - 1 tablet daily Levemir Pen - 45 units daily Glipizide ER 10 mg - 1 tablet daily eGFR > 90 02/16/23 HEALTH MAINTENANCE INTERVENTIONS: Deferred FOLLOW UP: Return to clinic in 6 weeks 08/02/2023 Clara Collins RPh Clinical Pharmacist - Advertising Writer Medication Therapy Management Clinic 06/21/2023, 9:45 AM documented in this encounter Plan of Treatment Upcoming Encounters Date Type Specialty Care Team Description 08/02/2023 Office Visit [address] [place] [address] 09/15/2023 Office Visit Cardiology Joaquina Hernández CRNP [address] [place] [address] 11/20/2023 Office Visit Family Medicine Dany Caruso MD [address] [place] [address] [place] [address] Health Maintenance Due Date Last Done Comments [...] Vaccine (FLU shot) (#1) 2023 10/04/2011 Depression Screening, Annual for Pts 12 and Over 08/31/2023 08/31/2022 HbA1c 11/18/2023 05/18/2023, 11/23, 07/06/2022, Additional history exists DIABETES-FOOT EXAM 12/19/2023 12/19/2022, 05/06/2021 Albumin/Creatinine Ratio 05/18/2024 023, 07/06/2022, 03/24/2022, Additional history exists GFR 05/18/2024 05/18/2023, /2 04/2023, 07/06/2022, Additional history exists Lipid Panel 05/18/2028 05/18/2023, 0611/2021, 08/10/2021, Additional history exists GARDASIL-HPV IMMUNIZATION SERIES Aged Out No longer eligible based on patient's age to complete this topic MENINGOCOCCAL (MENACTRA/MENVEO) Aged Out No longer eligible based on patient's age to complete this topic documented as of this encounter Medical Devices Not on filedocumented as of this encounter Visit Diagnoses Diagnosis Type 2 diabetes mellitus with hemoglobin A1c goal of less than 7.0% (HCC)- Primary documented in this encounter Care Teams Senior Underwriting Assistant Relationship Specialty Start Date End Date Dany Caruso MD [address] [place] [address] [place] [address] PCP - General Family Medicine 04/07/21 documented as of this encounter
--- OUTSIDE RECORDS SUMMARY | 2023-11-18 22:58 | External Medical Summary | Summary of Care ---
Author Name Unknown Organization [facility] Address [address] [place] [address] Phone [phone] Care Team Providers Care Drapery Sewer Hand Name Role Phone Dany Caruso MD Primary Care Provide r Reason for Visit * Reason Onset Date Comments Medication Pre-auth 05/30/2023 Encounter Details Date Type Department Care Team Description 05/30/[address] [id number] Dany Caruso MD [address] [place] [address] [place] [id number] Medication Pre-auth Allergies Active Allergy Reactions Severity Noted Date Comments Morphine 12/27/2013 Nausea, vomiting, diaphoresis Sulfa Antibiotics Itching 10/04/2011 documented as of this encounter (statuses as of 06/01/2023) Medications Medication Sig Dispensed Refills Start Date [...] Thiamine HCl 50 MG Oral Tablet Take by mouth 0.5 Tablets in the morning. 0 05/20/2022 Active Magnesium Oxide (Elemental) 400 MG Oral Tablet Take by mouth 400 mg daily . 0 05/20/2022 Active BD Pen Needle Imelda U/F 32G X 4 MM (Insulin Pen Needle)Indications: Type 2 diabetes mellitus with autonomic neuropathy, unspecified whether custodial insulin use (HCC) Use with insulin once daily 100 Each 1 06/29/2022 Active Sacubitril-Valsarta n 24-26 MG Oral Tablet (Entresto) Take by mouth 1 Tablet in the morning AND 1 Tablet before bedtime. 0 Active Empagliflozin [...] the tablet. 30 Tablet 5 05/18/2023 Active linaCLOtide 72 MCG Oral Capsule (Linzess)Indication s:Constipation, unspecified constipation type Take 1 Capsule by mouth daily as needed for Constipation. 30 Capsule 1 05/18/2023 Active Levemir FlexTouch 100 UNIT/ML Subcutaneous [...] 30 minutes before a meal.. 30 Tablet 2 01/04/2023 Discontinue d(Refill) documented as of this encounter (statuses as of 06/01/2023) Active Problems Problem Noted Date Neuropathy 01/18/2023 [...] as of this encounter (statuses as of 06/01/2023) Resolved Problems Problem Noted Date Resolved Date Type 2 diabetes mellitus with autonomic neuropat hy 06/29/2022 12/19/2022 Neuropathy 04/07/2021 12/19/2022 Diabetic ketoacidosis withou t coma associated with type 2 diabetes mellitus 04/07/2021 05/06/2021 Overview: 02/2021 Fatigue 11/13/2011 05/10/2022 Esophageal reflux 10/04/2011 04/07/2021 documented as of this encounter (statuses as of 06/01/2023) Immunizations Name Administration Dates Next Due Seasonal [...] encounter Miscellaneous Notes * Telephone Encounter - ALBA An - 06/01/2023 8:12 AM EDT Patients insurance would like to inform the office that linzess is denied because do not see recorddocumentation that pt has tried amitiza or linzess 145 mcg or 290 mcg. They will fax this info to the office, please review and resubmit if appropriate. Thanks, Mary Lou Zee Medical Record Assistant [facility]) 06/01/2023,8:12 AM * Telephone Encounter - Delma Merida [facility] - 05/31/2023 4:32 PM EDT Add'l info submitted via Teams as requested. Thank you, Delma Merida PharmD Clinical Pharmacist [facility] ([facility]) (formerly Telepharmacy) 05/31/23 4:32 PM [phone] * Telephone Encounter - ALBA Gage - 05/31/2023 4:14 PM EDT Patients insurance would like to inform the office that LINZESS 72 MCG CAPSULE is requiring additional information: office visit notes [facility] reached out via Teams chat. Prior authorization entered in PromptPA at [facility]. EOC# [id number] Please fax to [phone] before 930a tomorrow 06/01/23. Thank you, Theresa Arambula [facility] Warehouse Selector II [facility] ([facility]) (formerly Telepharmacy) 05/31/2023,4:14 PM * Telephone Encounter - Delma Merida [facility] - 05/31/2023 2:48 PM EDT Submitted information in previous note via PromptPA (EOC: [id number]).. Awaiting payer response. We will follow-up with insurance starting 06/02. Per [facility] request, if no decision is received from insurance by 06/05, we will route back to the [facility] after clarifying with the pharmacy that the claim is still not processing. Thank you, Delma Merida PharmD Clinical Pharmacist [facility] ([facility]) (formerly Telepharmacy) 05/31/23 2:48 PM [phone] * Telephone Encounter - Doc Douglas [facility] - 05/31/2023 1:37 PM EDT Please submit PA. Include the following documentation: 05/18/23 OV Please copy and paste the following information into PA form: Linzess helped with constipation in the past What other drugs is there medical record documentation of therapeutic failure on, intolerance to, or contraindication to for this condition? Has tried OTC options in the past reglan pepcid prilosec protonix Dicyclomine Miralax zantac Juan as urgent: No Diagnosis/ICD-10 Code(s): K59.00 If instantaneous decision is not received after submitting prior auth, please continue to follow upon this and route back to the [facility] pool if no decision is made by the insurance by 06/05, after clarifying with the pharmacy that the claim is still not processing. If PA is denied, please also route back to [facility] pool. Thanks, Doc Douglas PharmD Clinical Pharmacist [facility] ([facility]) (formerly Telepharmacy) [phone] 05/31/2023, 1:37 PM * Telephone Encounter - Nathaniel Spaulding CPhT - 05/31/2023 1:28 PM EDT This is a new PA request. Upon review of this prior authorization request, I verified this request is appropriate. This is prescribed by a department for which [facility] is authorized to review prior authorizations This is not a duplicate encounter regarding the same prior authorization The patient is planning to use insurance The insurance information listed in previous note is correct and the plan that is requiring prior authorization The insurance does not cover either brand or generic forms of this script as written without prior authorization The insurance does not cover any NDCs of this script without prior authorization Pharmacy benefits are not in chart (unable to verify coverage via RX Estimate tool) Of note, there is nothing currently pending in [facility] for this request. Please advise how to proceed. Thank you, Emeterio Spaulding ([place]) Warehouse Selector III [facility] ([facility]) (formerly Telepharmacy) 05/31/2023, 1:28 PM * Telephone Encounter - ALBA Marsh - 05/30/2023 11:40 AM EDT Pt calling to inform doctor that the patient's insurance will not pay for this medication without acompleted prior authorization. Did confirm this information with the pharmacy. Pt's current insurance information is as follows: Patient name: Man Day ID number: [id number] BIN number: [id number] N number: [id number] Group number: [id number] Subscriber name: Man [employer] Primary or Secondary Insurance:Primary Medication: linaCLOtide 72 MCG Oral Capsule (Linzess) Reason for Request: [place] Pharmacy and phone number: [id number] [address] [facility] [phone] Rx plan and phone number: [facility] [phone] What alternative medications does the pharmacy have in stock?: N/A Thank you, Karen Mack Medical Record Assistant I [facility]pharmacy) 05/30/2023,11:41 AM documented in this encounter Plan of Treatment Upcoming Encounters Date Type Specialty Care Team Description 06/15/2023 Office Visit Cardiology Brijesh Gómez DO [address] [place] [address] 06/21/2023 Office Visit [address] [place] [address] 11/20/2023 Office Visit Family Medicine Dany Caruso MD [address] [place] [address] [place] [address] Health Maintenance Due Date Last Done Comments [...] filedocumented as of this encounter Care Teams Drapery Sewer Hand Relationship Specialty Start Date End Date Dany Caruso MD [address] [place] [address] [place] [address] PCP - General Family Medicine 04/07/21 documented as of this encounter
--- OUTSIDE RECORDS SUMMARY | 2023-11-18 22:58 | External Medical Summary | Summary of Care ---
Author Name Unknown Organization [facility] Address [address] [place] [address] Phone [phone] Care Team Providers Care Skirt Panel Assembler Name Role Phone Dany Caruso MD Primary Care Provide r Reason for Referral * Precert (Within 10 days (routine)) - Authorized Specialty Diagnoses / Procedures Referred By Contac t Referred To Contact Cardiac Studies Diagnoses HFrEF (heart failure with reduced ejection fraction) (HCC) HTN, goal below 130/80 Procedures ECHO, COMPLETE (2D), TRANS-THORACIC Brijesh Gómez DO [address] [place] [address] Referral ID Status Reason Start Date Expiration Date V isits Requested Visits Authorized [id number] Authorized Precert 06/15/2023 999 999 Reason for Visit * Reason Comments NEW PATIENT * Evaluate & Treat - Unlimited Visits (Within 30 days (routine)) - Authorized Specialty Diagnoses / Procedures Referred By Contact Referred To Contact Cardiovascular Medicine / Cardiology Diagnoses HFrEF (heart failure with reduced ejection fraction) ([facility]) Dany Caruso MD [address] [place] [address] [place] [address] Referral ID Status Reason Start Date Expiration Date Visits Requested Visits Authorized [id number] Authorized Specialty Services Required 02/16/2023 999 999 Encounter Details Date Type Department Care Team Description 06/15/2023 Office Visit Cardiology, [facility] [address] [place] [id number] Brijesh Gómez DO [address] [place] [address] HFrEF (heart failure with reduced ejection fraction) ([facility])*; HTN, goal below 130/80 Allergies Active Allergy Reactions Severity Noted Date Comments Morphine 12/27/2013 Nausea, vomiting, diaphoresis Sulfa Antibiotics Itching 10/04/2011 documented as of this encounter (statuses as of 06/15/2023) Medications Medication Sig Dispensed Refills Start Date End Date Status OneTouch Verio w/Device KitIndications:Type 2 diabetes mellitus with hemoglobin A1c goal of less than 7.0% ([facility]) Use to test once a day E11.9 1 Kit 0 03/23/2022 Active Atorvastatin Calcium 40 MG Oral Tablet (Lipitor)Indication s:High triglycerides Take by mouth 1 Tablet in the morning. 30 Tablet 3 03/23/2022 Active OneTouch UltraSoft LancetsIndications: Type 2 diabetes mellitus with hemoglobin A1c goal of less than 7.0% ([facility]) Use to test twice a day. E11.9 [...] diabetes mellitus with autonomic neuropathy, unspecified whether longterm insulin use ([facility]) Use with insulin once daily 100 Each [...] as of this encounter (statuses as of 06/15/2023) Active Problems Problem Noted Date Neuropathy 01/18/2023 [...] as of this encounter (statuses as of 06/15/2023) Resolved Problems Problem Noted Date Resolved Date Type 2 diabetes mellitus with autonomic neuropat hy 06/29/2022 12/19/2022 Neuropathy 04/07/2021 12/19/2022 Diabetic ketoacidosis withou t coma associated with type 2 diabetes mellitus 04/07/2021 05/06/2021 Overview: 02/2021 Fatigue 11/13/2011 05/10/2022 Esophageal reflux 10/04/2011 04/07/2021 documented as of this encounter (statuses as of 06/15/2023) Immunizations Name Administration Dates Next Due Seasonal Influenza, Split, IIV3, With Preserve, Inj 10/04/2011 TDAP (age 11 and older)(Adacel) 08/15/2011 documented as of this encounter Social History Tobacco Use Types Packs/Day Years Used Date Smoking Tobacco: Former Cigarettes 1 4 Q uit: 10/23/2007 Smokeless Tobacco: Never Tobacco Cessation:Counseling Given: Not Answered Alcohol Use Standard Drinks/Week Comments No 0 [...] Sign Reading Time Taken Comments Blood Pressure 130/80 06/15/2023 8:54 AM EDT Pulse 90 06/15/2023 8:54 AM EDT Temperature - - Respiratory Rate - - Oxygen Saturation - - Inhaled Oxygen Concentration - - Weight 101.6 kg (224 lb) 06/15/2023 8:54 AM EDT Height - - Body Mass Index 34.06 05/18/2023 1:09 PM EDT documented in this encounter Progress Notes * Brijesh Valdez Rico, DO - 06/15/2023 9:22 AM EDT Cardiology Outpatient Consultation Mac Day is a 43 year old male referred by Dany Caruso MD who is seen in consultation for heart failure. The referring physician has requested evaluation and management of cardiomyopathy . HPI: This is a 43-year-old male patient who was originally seen by the [place] [facility] with a history of a cardiomyopathy. 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 At the time of presentation, he was drinking several cases of beer per week. He also has a history of diabetes which was not well controlled and a previous DVT with pulmonary emboli. This thrombot ic event may have been related to heart failure and the patient was on Xarelto for time but may have stopped this medication on his own. As part of his workup, he did undergo a cardiac catheterization that showed normal coronaries. At 1st he was not compliant with his medications or follow-up, but it seems that he is now taking his medications and reduced his alcohol consumption. He is on a good set of guideline directed medications. It should be noted that at presentation his estimated left ventricular ejection fraction was 20-25%. Past Medical History: Diagnosis Date Chronic constipation DM type 2, goal HbA1c < 7% ([facility]) Gastroparesis GERD (gastroesophageal reflux disease) HTN, goal below 130/80 Other proteinuria Patient Active Problem List Diagnosis Code Controlled substance agreement signed Z79.899 Type 2 diabetes mellitus with hemoglobin A1c goal of less than 7.0% ([facility]) E11.9 HTN, goal below 130/80 I10 Other proteinuria R80.8 High triglycerides E78.1 Gastroparesis K31.84 HFrEF (heart failure with reduced ejection fraction) ([facility]) I50.20 Acute pulmonary embolism without acute cor pulmonale ([facility]) I26.99 History of alcohol abuse F10.11 Gastro-esophageal reflux disease without esophagitis K21.9 Alcohol abuse, uncomplicated F10.10 Neuropathy G62.9 Past Surgical History: Procedure Laterality Date CARDIAC SURGERY PROCEDURE NEC Age 3 Open heart surgery for 2 holes in ventricular septum COLONOSCOPY, DIAGNOSTIC (RECTUM) 01/10/2014 COLONOSCOPY FLEXIBLE PROXIMAL DIAGNOSTIC performed by Nora Patricia DO at [facility] EGD, FLEXIBLE, DIAGNOSTIC 01/24/2014 ESOPHAGOGASTRODUODENOSCOPY (EGD), FLEXIBLE, TRANSORAL, DIAGNOSTIC performed by Scott Espinoza MD at [facility] EGD, FLEXIBLE, W/BIOPSY 12/14/11 mild gastritis negative for HPylori EGD, W/ENDOSCOPIC US 01/24/2014 ESOPHAGOGASTRODUODENOSCOPY (EGD), FLEXIBLE, TRANSORAL, ENDOSCOPIC ULTRASOUND performed by Scott Bailey MD at [facility] No family history on file. Social History Tobacco Use Smoking status: Former Packs/day: 1.00 Years: 4.00 Pack years: 4.00 Types: Cigarettes Quit date: 10/23/2007 Years since quittin.6 Smokeless tobacco: Never Substance Use Topics Alcohol use: No Drug use: No Review of patient's allergies indicates: Allergen Reactions Morphine Nausea, vomiting, diaphoresis Sulfa Antibiotics Itching Current Outpatient Medications Medication Sig Dispense Refill Atorvastatin Calcium 40 MG Oral Tablet (Lipitor) Take by mouth 1 Tablet in the morning. 30 Tablet 3 OneTouch UltraSoft Lancets Use to test twice a day. E11.9 360 Each 1 Budesonide-Formoterol Fumarate 80-4.5 MCG/ACT Inhalation Aerosol (Symbicort) Inhale by mouth 2 Puffs in the morning AND 2 Puffs before bedtime. 10.2 g 1 Metoprolol Succinate 25 MG Oral Capsule ER 24 Hour Sprinkle Take by mouth 25 mg daily . Thiamine HCl 50 MG Oral Tablet Take 0.5 Tablets by mouth in the morning. Magnesium Oxide (Elemental) 400 MG Oral Tablet Take by mouth 400 mg daily . BD Pen Needle Imelda U/F 32G X 4 MM (Insulin Pen Needle) Use with insulin once daily 100 Each 1 Sacubitril-Valsartan 24-26 MG Oral Tablet (Entresto) Take 1 Tablet by mouth in the morning and 1 Tablet before bedtime. Empagliflozin 25 MG Oral Tablet (Jardiance) Take [...] times a day DXe11.9 2 Each 3 Gabapentin 100 MG Oral Capsule (Neurontin) TAKE 1 CAPSULE BY MOUTH IN THE MORNING AND 1 CAPSULE AT NOON AND 1 CAPSULE BEFORE BEDTIME 270 Capsule 3 hydroCHLOROthiazide 25 MG Oral Tablet (Hydrodiuril) Take 1 Tablet by mouth in the morning. 30 Tablet 2 Pantoprazole Sodium 40 MG Oral Tablet Delayed Release (Protonix) Take 1 Tablet by mouth in the morning. 30 minutes before the first meal of the day. Do not crush, split or chew the tablet. 30 Tablet 5 Levemir FlexTouch 100 UNIT/ML Subcutaneous Solution Pen-injector (Insulin Detemir) inject 45 units under the skin daily 45 mL 0 glipiZIDE ER 10 MG Oral Tablet Extended Release 24 Hour (glipiZIDE XL) Take 1 Tablet by mouth in the morning. 30 minutes before a meal.. 30 Tablet 5 OneTouch Verio w/Device Kit Use to test once a day E11.9 1 Kit 0 Linzess 145 MCG Oral Capsule (linaCLOtide) Take 1 Capsule by mouth daily as needed for Other (constipation). (Patient not taking: Reported on 06/15/2023) 90 Capsule 0 No current facility-administered medications for this visit. ROS: Review of Systems: See HPI for pertinent positives. All other review of systems is negative. PHYSICAL EXAMINATION BP 130/80 | Pulse 90 | Wt 101.6 kg (224 lb) | BMI 34.06 kg/m | BSA 2.21 m Body mass index is 34.06 kg/m. General: no acute distress and stated age Head: normocephalic, no masses, lesions, tenderness or abnormalities Eyes: conjunctiva are pink and non-injected, sclera clear Neck: supple, no adenopathy, no bruits, normal jugular venous pulse, no hepatojugular reflux Chest: normal shape and normal respiratory effort Lungs: clear to auscultation and percussion Cardiac Exam: - regular rate & rhythm, no murmurs gallops or rubs - normal S1, normal S2 Pulses: 2(+) throughout Abdomen: abdomen soft, non-tender, no abnormal masses and no hepatosplenomegaly Musculoskeletal: no gait disturbance, no joint inflammation, no deforming arthritis Extremities: no edema and no cyanosis Neuro: grossly normal exam Laboratory Data Review: EKG reveals a sinus rhythm with a right bundle branch block Latest Reference Range & Units 05/18/23 13:36 Triglycerides <=174 mg/dL 767 (H) Cholesterol <200 mg/dL 263 (H) Non-HDL Cholesterol <=159 mg/dL 216 (H) HDL Cholesterol >39 mg/dL 47 LDL Cholesterol <=129 mg/dL 63 Sodium 135 - 146 mmol/L 135 Potassium 3.5 - 5.1 mmol/L 4.2 Chloride 98 - 107 mmol/L 97 (L) CO2 22 - 32 mmol/L 23 BUN 6 - 20 mg/dL 12 Creatinine 0.6 - 1.2 mg/dL 0.8 Estimated Glomerular Filtration Rate >=60 mL/min >90 Anion Gap 7 - 15 mmol/L 15 Glucose 70 - 120 mg/dL 430 (H) Calcium 8.4 - 10.2 mg/dL 9.4 Estimated Average Glucose <126 mg/dL 283 (H) Hemoglobin A1C 4.0 - 5.6 % 11.5 (H) (H): Data is abnormally high (L): Data is abnormally low Impression: 1. HFrEF 2. Nonischemic cardiomyopathy 3. Diabetes mellitus not well controlled 4. Mixed dyslipidemia 5. History of alcohol abuse Plan: The patient is currently clinically stable. I believe he is currently taking his medications as directed. He is being followed by the [facility] clinic for his diabetes. His triglycerides are markedly elevated but his diabetes at this time is not well controlled with a hemoglobin A1c of 11.5. I suspect that once his hemoglobin A1c has improved that his triglycerides and mixed dyslipidemia will also improve. Since his triglycerides are above 500 however, if they do not improve then he should be startedon fenofibrate to reduce his likelihood of pancreatitis. He will have a repeat echocardiogram now that he is on guideline directed medications. If his ejection fraction has improved and is above 35% t hen we do not have to consider a primary prevention ICD however, if his ejection fraction is below this number then we will discuss this device option with him. I plan follow-up in 3 months or earlier if needed. This chart was completed in part utilizing [employer] Speech Voice Recognition Software. Grammatical errors, random word insertions, prounoun errors, and incomplete sentences are an occasional consequence of this system due to software limitations, ambient noise, and hardware issues. Any formal questions or concerns about the content, text, or information contained within the body of this dictation should be directly addressed to the provider for clarification. I spent a total of 40-54 minutes (exact time 50 mins) on the date of service in preparation, delivery, and documentation of the care provided to Man Day excluding any time spent in the performance of separately billed services. Brijesh Gómez DO [address] [address] 06/15/2023 documented in this encounter Nursing Notes * Jammie Dockery CMA - 06/15/2023 8:55 AM EDT Examination Room: 16 Name: Man Day Date of : (1980) Reason for Visit: new pt Interim Hospitalization(s): none Problems/Concerns: denies Chest Pain/SOB: denies [facility] is a way you can talk to your provider online through e-mail. Would you like to sign up? I can activate it for you? DECLINES Patient was instructed to not get up [...] Encounters Date Type Specialty Care Team Description 06/16/2023 Cardiac Studies Cardiac Studies 06/21/2023 Office Visit [facility], [address] [place] [address] 09/15/2023 Office Visit Cardiology Joaquina Hernández CRNP [address] [place] [address] 11/20/2023 Office Visit Family Medicine Dany Caruso MD [address] [place] [address] [place] [address] Scheduled Orders Name Type Priority Associated Diagnoses Orde r Schedule EKG EKG Routine HFrEF (heart failure with reduced ejection fraction) (HCC) HTN, goal below 130/80 Ordered: 06/15/2023 ECHO, COMPLETE (2D), TRANS-THORACIC Echocardiology Routine HFrEF (heart failure with reduced ejection fraction) (HCC) HTN, goal below 130/80 Expected: 06/15/2023, Expires: 10/15/2023 Health Maintenance Due Date Last Done Comments [...] HTN, goal below 130/80 Unspecified essential hypertension documented in this encounter Care Teams Skirt Panel Assembler Relationship Specialty Start Date End Date Dany Caruso MD [address] [place] [address] [place] [address] PCP - General Family Medicine 04/07/21 documented as of this encounter"
--- OUTSIDE RECORDS SUMMARY | 2023-11-18 22:58 | External Medical Summary | Summary of Care ---
Author Name Unknown Organization [facility] Address [address] [place] [address] Phone [phone] Care Team Providers Care Oil Change Technician Name Role Phone Dany Caruso MD Primary Care Provide r Reason for Visit * Reason Onset Date Comments Medication Question 08/29/2023 Encounter Details Date Type Department Care Team (Late st Contact Info) Description 08/29/2023 Telephone Family Medicine [address] [phone] Dany Caruso MD [address] [place] [address] [place] [address] Medication Question Allergies Active Allergy Reactions Criticality Noted Date Comments Morphine 12/27/2013 Nausea, vomiting, diaphoresis Sulfa Antibiotics Itching 10/04/2011 documented as of this encounter (statuses as of 08/30/2023) Medications Medication Sig Dispensed Refills Start Date End Date Status OneTouch Verio w/Device KitIndications:Type 2 diabetes mellitus with hemoglobin A1c goal of less than 7.0% ([facility]) Use to test once a day E11.9 1 Kit 0 03/23/2022 Active Atorvastatin Calcium 40 MG Oral Tablet (Lipitor)Indication s:High triglycerides Take by mouth 1 Tablet in the morning. 30 Tablet 3 03/23/2022 Active OneTouch UltraSoft LancetsIndications: Type 2 diabetes mellitus with hemoglobin A1c goal of less than 7.0% ([facility]) Use to test twice a day. 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 30 Tablet 11 08/30/2023 Active Linzess 145 MCG Oral Capsule (linaCLOtide)Indica tions:Constipation, unspecified constipation type Take 1 Capsule by mouth daily as needed for Other (constipation ). 90 Capsule 0 06/01/2023 3 Discontinue d(Patient preference/ discontinua tion) documented as of this encounter (statuses as of 08/30/2023) Active Problems Problem Noted Date Diagnosed Date [...] as of this encounter (statuses as of 08/30/2023) Resolved Problems Problem Noted Date Diagnosed Date Resolved Date Type 2 diabetes mellitus wit h autonomic neuropathy 06/29/2022 12/19/2022 Neuropathy 04/07/2021 12/19/2022 Diabetic ketoacidosis withou t coma associated with type 2 diabetes mellitus 04/07/2021 05/06/2021 Overview: 02/2021 Fatigue 11/13/2011 05/10/2022 Esophageal reflux 10/04/2011 04/07/2021 documented as of this encounter (statuses as of 08/30/2023) Immunizations Name Administration Dates Next Due Seasonal [...] encounter Miscellaneous Notes * Telephone Encounter - Ovidio Turner MD - 08/30/2023 10:49 AM EST Pioglitazone sent to [facility]. Let Man know * Telephone Encounter - Clara Collins RP - 08/30/2023 10:10 AM EST Can look towards pioglitazone, may still need insulin though if patient is taking full 45 units of Levemir/has to stop Jardiance. Let me know if anything else is needed on our end. Thanks! Clara * Telephone Encounter - Ovidio Turner MD - 08/30/2023 9:24 AM EST You may not like it but i am a big fan of pioglitazone in certain circumstances and it might be affordable * Telephone Encounter - Clara Collins RP - 08/30/2023 8:15 AM EST Please see message, patient no longer has insurance. Can consider transitioning to Relion 70/30, this may be a slightly cheaper option obtained at [facility]. Will need to assess current BG control/if he is still taking Jardiance/Glipizide. Can look towards utilizing patient assistance programs, however may be several days/weeks until patient is able to obtain the medication. Can look towards this as a long lines operator solution. Can transition to Lantus and utilizing cost savings card. Called and spoke to patient. Lantus Rx pended for approval. Patient agreeable to stop by clinic andobtain savings card. Clara Collins RPh, PharmD Clinical Pharmacist - Associate Vice President [facility] 08/30/2023, 8:36 AM [phone] * Telephone Encounter - Mary Lou Zee PHARM Tech - 08/29/2023 1:32 PM EST Pt called stating he does not have insurance. 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 Pt was wondering if dr could prescribe another insulin that is cheaper. Pt said he is working on getting insurance but is not sure when he will get it. Thanks, Mary Lou Zee Crane Hoist Or Lift Operator [facility] ([facility]) 08/29/2023,1:34 PM documented in this encounter Plan of Treatment Upcoming Encounters Date Type Department Care Team (Late st Contact Info) Description 09/15/2023 9:30 AM EST Office Visit Cardiology, [facility] [address] [place] [address] Joaquina Hernández CRNP [address] [place] [address] 11/20/2023 4:20 PM EST Office Visit Family Medicine [address] [place] [phone] Dany Caruso MD [address] [place] [address] [place] [address] Health Maintenance Due Date Last Done Comments [...] A1c goal of less than 7.0% ([facility])- Primary documented in this encounter Care Teams Oil Change Technician Relationship Specialty Start Date End Date Dany Caruso MD [address] [place] [address] [place] [phone] PCP - General Family Medicine 04/07/21 documented as of this encounter
--- OUTSIDE RECORDS SUMMARY | 2023-11-18 22:58 | External Medical Summary | Summary of Care ---
Author Name Unknown Organization [facility] Address [address] [place] [address] Phone [phone] Care Team Providers Care Speech And Hearing Director Name Role Phone Dany Caruso MD Primary Care Provide r Reason for Visit * Reason Onset Date Comments Medication Refill 05/30/2023 Encounter Details Date Type Department Care Team Description 05/30/2023 Refill Family Medicine [address] [phone] Dany Caruso MD [address] [place], [place] [address] [id number] Type 2 diabetes mellitus with hemoglobin A1c goal of less than 7.0% ([facility]) Allergies Active Allergy Reactions Severity Noted Date Comments Morphine 12/27/2013 Nausea, vomiting, diaphoresis Sulfa Antibiotics Itching 10/04/2011 documented as of this encounter (statuses as of 05/31/2023) Medications Medication Sig Dispensed Refills Start Date [...] diabetes mellitus with autonomic neuropathy, 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 30 Tablet 5 05/31/2023 Active glipiZIDE ER 10 MG Oral Tablet Extended Release 24 Hour (glipiZIDE XL)Indications:Type 2 diabetes mellitus with hemoglobin A1c goal of less than 7.0% (HCC) Take 1 Tablet by mouth in the morning. 30 minutes before a meal.. 30 Tablet 2 01/04/2023 3 Discontinue d(Refill) documented as of this encounter (statuses as of 05/31/2023) Active Problems Problem Noted Date Neuropathy 01/18/2023 [...] as of this encounter (statuses as of 05/31/2023) Resolved Problems Problem Noted Date Resolved Date Type 2 diabetes mellitus with autonomic neuropat hy 06/29/2022 12/19/2022 Neuropathy 04/07/2021 12/19/2022 Diabetic ketoacidosis withou t coma associated with type 2 diabetes mellitus 04/07/2021 05/06/2021 Overview: 02/2021 Fatigue 11/13/2011 05/10/2022 Esophageal reflux 10/04/2011 04/07/2021 documented as of this encounter (statuses as of 05/31/2023) Immunizations Name Administration Dates Next Due Seasonal [...] encounter Miscellaneous Notes * Telephone Encounter - Tereza Hamilton [facility] - 05/31/2023 6:00 AM EDTSigned Prescriptions: Disp Refills glipiZIDE ER 10 MG Oral Tablet Extended Re*30 Tab*5 Sig: Take 1 Tablet by mouth in the morning. 30 minutes before a meal.. Authorizing Provider: DANY CARUSO Ordering User: TEREZA HAMILTON * Telephone Encounter - ALBA Marsh - 05/30/2023 11:35 AM EDT Did you pend patient's preferred pharmacy and medication before forwarding?yes Pharmacy: [id number] [address] [facility] Pending Prescriptions: Disp Refills glipiZIDE ER 10 MG Oral Tablet Extended R*30 Tab*2 Sig: Take 1 Tablet by mouth in the morning. 30 minutes before a meal.. Last Visit: 05/18/2023 (in office), Visit date not found (telemedicine) Next Visit: 11/20/2023 If no future appointments scheduled, and last appointment is greater than a year ago, please schedule patient for a follow-up appointment Last date the medication was ordered: 01/04/2023 Is this request for a controlled substance?No Urine Drug Screen:No results found for this or any previous visit. Patient Phone Numbers Labs: Lab Results Component Value Date/Time CREAT 0.8 05/18/2023 01:36 PM CREAT 1.1 09/08/2016 02:32 PM POTASSIUM 4.2 05/18/2023 01:36 PM POTASSIUM 4.3 09/08/2016 02:32 PM TSH 2.79 06/09/2015 03:06 PM LDLCALC 63 05/18/2023 01:36 PM ALT 19 05/10/2022 08:08 AM ALT 31 09/08/2016 02:32 PM HGBA1C 11.5 (H) 05/18/2023 01:36 PM HGBA1C 6.0 06/09/2015 03:06 PM documented in this encounter Plan of Treatment Upcoming Encounters Date Type Specialty Care Team Description 06/15/2023 Office Visit Cardiology Brijesh Gómez, DO [address] [place] [address] 06/21/2023 Office Visit [address] [place] [address] 11/20/2023 Office Visit Family Medicine Dany Caruso MD [address] [place] [address] [place] [address] Health Maintenance Due Date Last Done Comments [...] (HCC) documented in this encounter Care Teams Speech And Hearing Director Relationship Specialty Start Date End Date Dany Caruso MD [address] [place] [address] [place] [address] PCP - General Family Medicine 04/07/21 documented as of this encounter
--- OUTSIDE RECORDS SUMMARY | 2023-11-18 22:58 | External Medical Summary | Summary of Care ---
Author Name Unknown Organization [facility] Address [address] [place] [address] Phone [phone] Care Team Providers Care Boardinghouse Keeper Name Role Phone Dany Caruos MD Primary Care Provide r Reason for Visit * Reason Onset Date Comments Medication Question 08/29/2023 Encounter Details Date Type Department Care Team (Late st Contact Info) Description 08/29/2023 Telephone Family Medicine [address] [phone] Dany Caruso MD [address] [place] [address] [place] [address] Medication Question Allergies Active Allergy Reactions Criticality Noted Date Comments Morphine 12/27/2013 Nausea, vomiting, diaphoresis Sulfa Antibiotics Itching 10/04/2011 documented as of this encounter (statuses as of 08/30/2023) Medications Medication Sig Dispensed Refills Start Date End Date Status OneTouch Verio w/Device KitIndications:Type 2 diabetes mellitus with hemoglobin A1c goal of less than 7.0% ([facility]) Use to test once a day E11.9 1 Kit 0 03/23/2022 Active Atorvastatin Calcium 40 MG Oral Tablet (Lipitor)Indication s:High triglycerides Take by mouth 1 Tablet in the morning. 30 Tablet 3 03/23/2022 Active OneTouch UltraSoft LancetsIndications: Type 2 diabetes mellitus with hemoglobin A1c goal of less than 7.0% ([facility]) Use to test twice a day. 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 (HCC) Use with insulin [...] day DXe11.9 2 Each 3 12/07/2022 Active hydroCHLOROthiazide 25 MG Oral Tablet (Hydrodiuril)Indica [...] BEFORE BEDTIME 270 Capsule 1 08/30/2023 Active Gabapentin 100 MG Oral Capsule (Neurontin)Indicati ons:Neuropathy TAKE 1 CAPSULE BY MOUTH IN THE MORNING AND 1 CAPSULE AT NOON AND 1 CAPSULE BEFORE BEDTIME 270 Capsule 3 01/11/2023 3 Discontinue d(Refill) Linzess 145 MCG Oral Capsule (linaCLOtide)Indica tions:Constipation, [...] as of this encounter Miscellaneous Notes * Addendum Note - Ovidio Young MD - 08/30/2023 5:40 PM ESTAddended by: OVIDIO YOUNG on: 08/30/2023 05:40 PM Modules accepted: Orders * Addendum Note - Martell Maya LPN - 08/30/2023 5:00 PM ESTAddended by: MARTELL MAYA on: 08/30/2023 05:00 PM Modules accepted: Orders * Telephone Encounter - Martell Maya LPN - 08/30/2023 4:58 PM EST Wants Gabapentin script changed from [facility] to [facility]. Order pended below He is aware of message below * Telephone Encounter - Ovidio Young MD - 08/30/2023 10:49 AM EST Pioglitazone sent to [facility]. Let Man know * Telephone Encounter - Clara Collins [facility] - 08/30/2023 10:10 AM EST Can look towards pioglitazone, may still need insulin though if patient is taking full 45 units of Levemir/has to stop Jardiance. Let me know if anything else is needed on our end. Thanks! Clara * Telephone Encounter - Ovidio Young MD - 08/30/2023 9:24 AM EST You may not like it but i am a big fan of pioglitazone in certain circumstances and it might be affordable * Telephone Encounter - Clara Collins RP - 08/30/2023 8:15 AM EST Please see message, patient no longer has insurance. Can consider transitioning to Relion 70/30, this may be a slightly cheaper option obtained at [facility]. Will need to assess current BG control/if he is still taking Jardiance/Glipizide. Can look towards utilizing patient assistance programs, however may be several days/weeks until patient is able to obtain the medication. 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 Can transition to Lantus and utilizing cost savings card. Called and spoke to patient. Lantus Rx pended for approval. Patient agreeable to stop by clinic andobtain savings card. Clara Collins RPh, PharmD Clinical Pharmacist - Matrix Bath Attendant [facility] 08/30/2023, 8:36 AM [phone] * Telephone Encounter - Mary Lou Zee PHARM Tech - 08/29/2023 1:32 PM EST Pt called stating he does not have insurance. Pt said when he went to cook pickled meat levemir it was over $400. Pt was wondering if could prescribe another insulin that is cheaper. Pt said he is working on getting insurance but is not sure when he will get it. Thanks, Mary Lou Zee Naval Aircrewman [facility] ([facility]) 08/29/2023,1:34 PM documented in this encounter Plan of Treatment Upcoming Encounters Date Type Department Care Team (Late st Contact Info) Description 09/15/2023 9:30 AM EST Office Visit Cardiology, [facility] [address] [place] [address] Joaquina Hernández CRNP [address] [place] [address] 11/20/2023 4:20 PM EST Office Visit Family Medicine [address] [place] [phone] Dany Caruso MD [address] [place] [address] [place] [address] Health Maintenance Due Date Last Done Comments [...] goal of less than 7.0% (HCC)- Primary Neuropathy Mononeuritis of unspecified site documented in this encounter Care Teams Boardinghouse Keeper Relationship Specialty Start Date End Date Dany Caruso MD [address] [place] [address] [place] [phone] PCP - General Family Medicine 04/07/21 documented as of this encounter
--- OUTSIDE RECORDS SUMMARY | 2023-11-18 22:58 | External Medical Summary | Summary of Care ---
Author Name Unknown Organization [facility] Address [address] [place] [address] Phone [phone] Care Team Providers Care Master Motorcycle Technician Name Role Phone Dany Caruso MD Primary Care Provide r Reason for Visit * Reason Onset Date Comments Medication Pre-auth 05/30/2023 Encounter Details Date Type Department Care Team Description 05/30/[address] [phone] aDny Caruso MD [address] [place] [address] [place] [id number] Medication Pre-auth Allergies Active Allergy Reactions Severity Noted Date Comments Morphine 12/27/2013 Nausea, vomiting, diaphoresis Sulfa Antibiotics Itching 10/04/2011 documented as of this encounter (statuses as of 06/01/2023) Medications Medication Sig Dispensed Refills Start Date End Date Status OneTouch Verio w/Device KitIndications:Type 2 diabetes mellitus with hemoglobin A1c goal of less than 7.0% ([facility]) Use to test once a day E11.9 1 Kit 0 03/23/2022 Active Atorvastatin Calcium 40 MG Oral Tablet (Lipitor)Indication s:High triglycerides Take by mouth 1 Tablet in the morning. 30 Tablet 3 03/23/2022 Active OneTouch UltraSoft LancetsIndications: Type 2 diabetes mellitus with hemoglobin A1c goal of less than 7.0% ([facility]) Use to test twice [...] diabetes mellitus with autonomic neuropathy, unspecified whether alf insulin use (HCC) Use with insulin once [...] resubmit if appropriate. Thanks, Mary Lou Zee First Officer And Flight Instructor [facility]) 06/01/2023,8:12 AM * Telephone Encounter - Delma Merida [facility] - 05/31/2023 4:32 PM EDT Add'l info submitted via Teams as requested. Thank you, Delma Merida PharmD Clinical Pharmacist [facility] ([facility]) (formerly Telepharmacy) 05/31/23 4:32 PM [phone] * Telephone Encounter - ALBA Gage - 05/31/2023 4:14 PM EDT Patients insurance would like to inform the office that LINZESS 72 MCG CAPSULE is requiring additional information: office visit notes [facility] reached out via Teams chat. Prior authorization entered in Prompt[employer] at [facility]. EOC# [id number] Please fax to [phone] before 930a tomorrow 06/01/23. Thank you, Theresa Arambula [facility] Astronaut Mission Specialist II [facility] ([facility]) (formerly Telepharmacy) 05/31/2023,4:14 PM * Telephone Encounter - Delma Merida [facility] - 05/31/2023 2:48 PM EDT Submitted information in previous note via PromptPA (EOC: [id number]).. Awaiting payer response. We will follow-up with insurance starting 06/02. Per [facility] request, if no decision is received from insurance by 06/05, we will route back to the [facility] after clarifying with the pharmacy that the claim is still not processing. Thank you, Delma Merida PharmD Clinical Pharmacist [facility] ([facility]) (formerly Telepharmacy) 05/31/23 2:48 PM [phone] * Telephone Encounter - Doc Douglas [facility] - 05/31/2023 1:37 PM EDT Please submit [...] upon this and route back to the [facility] pool if no decision is made by the insurance by 06/05, after clarifying with the pharmacy that the claim is still not processing. If PA is denied, please also route back to [facility] pool. Thanks, Doc Douglas PharmD Clinical Pharmacist [facility] ([facility]) (formerly Telepharmacy) [phone] 05/31/2023, 1:37 PM * Telephone Encounter - Nathaniel Spaulding CPhT - 05/31/2023 1:28 PM EDT This is a new [place] request. Upon review of this prior authorization request, I verified this request is appropriate. This is prescribed by a department for which [facility] is authorized to review prior authorizations [...] note, there is nothing currently pending in [facility] for this request. Please advise how to proceed. Thank you, Emeterio Spaulding ([place]) Astronaut Mission Specialist III [facility] ([facility]) (formerly Telepharmacy) 05/31/2023, 1:28 PM * Telephone Encounter - ALBA Marsh - 05/30/2023 11:40 AM EDT Pt calling to inform doctor that the patient's insurance will not pay for this medication without acompleted prior authorization. Did confirm this information with the pharmacy. Pt's current insurance information is as follows: Patient name: Man Day ID number: [id number] BIN number: [id number] N number: [id number] Group number: [id number] Subscriber name: Man Day Primary or Secondary Insurance:Primary Medication: linaCLOtide 72 MCG Oral Capsule (Linzess) Reason for Request: [place] Pharmacy and phone number[id number] [address] [facility] [phone] Rx plan and phone number: [facility] [phone] What alternative medications does the pharmacy have in stock?: N/A Thank you, Karen Mack First Officer And Flight Instructor I [facility] (formerly Telepharmacy) 05/30/2023,11:41 AM documented in this encounter Plan of Treatment Upcoming Encounters Date Type Specialty Care Team Description 06/15/2023 Office Visit Cardiology Brijesh Gómez DO [address] [place] [address] 06/21/2023 Office Visit [address] [place] [address] 11/20/2023 Office Visit Family Medicine Dany Caruso MD [address] [place] [address] [place] [address] Health Maintenance Due Date Last Done Comments [...] filedocumented as of this encounter Care Teams Master Motorcycle Technician Relationship Specialty Start Date End Date Dany Caruso MD [address] [place] [address] [place] [address] PCP - General Family Medicine 04/07/21 documented as of this encounter
--- OUTSIDE RECORDS SUMMARY | 2023-11-18 22:58 | External Medical Summary | Summary of Care ---
Author Name Unknown Organization [facility] Address [address] [place] [address] Phone [phone] Care Team Providers Care Line Prep Cook Name Role Phone Dany Caruso MD Primary Care Provide r Reason for Visit * Reason Onset Date Comments Medication Question 08/29/2023 Encounter Details Date Type Department Care Team (Late st Contact Info) Description 08/29/2023 Telephone Family Medicine [address] [phone] Dany Caruso MD [address] [place] [address] [place] [address] Medication Question Allergies Active Allergy Reactions Criticality Noted Date Comments Morphine 12/27/2013 Nausea, vomiting, diaphoresis Sulfa Antibiotics Itching 10/04/2011 documented as of this encounter (statuses as of 08/30/2023) Medications Medication Sig Dispensed Refills Start Date End Date Status OneTouch Verio w/Device KitIndications:Type 2 diabetes mellitus with hemoglobin A1c goal of less than 7.0% ([facility]) Use to test once a day E11.9 1 Kit 0 03/23/2022 Active Atorvastatin Calcium 40 MG Oral Tablet (Lipitor)Indication s:High triglycerides Take by mouth 1 Tablet in the morning. 30 Tablet 3 03/23/2022 Active OneTouch UltraSoft LancetsIndications: Type 2 diabetes mellitus with hemoglobin A1c goal of less than 7.0% ([facility]) Use to test twice a day. 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 Let Man know * Telephone Encounter [...] be a slightly cheaper option obtained at [facility]. Will need to assess current BG control/if he is still taking Jardiance/Glipizide. Can look towards utilizing patient assistance programs, however may be several days/weeks until patient is able to obtain the medication. Can look towards this as a intermodal owner operator truck driver solution. Can transition to Lantus and utilizing cost savings card. Called and spoke to patient. Lantus Rx pended for approval. Patient agreeable to stop by clinic andobtain savings card. Clara Collins RPh, PharmD Clinical Pharmacist - Stripping Machine Operator [facility] 08/30/2023, 8:36 AM Ph.[phone] * Telephone Encounter - Mary Lou Zee PHARM Tech - 08/29/2023 1:32 PM EST Pt called stating he does not have insurance. Pt said when he went to [facility] levemir it was over $400. Pt was wondering if dr could prescribe another insulin that is cheaper. Pt said he is working on getting insurance but is not sure when he will get it. Thanks, Mary Lou Zee Chrome Worker [facility] ([facility]) 08/29/2023,1:34 PM documented in this encounter Plan of Treatment Upcoming Encounters Date Type Department Care Team (Late st Contact Info) Description 09/15/2023 9:30 AM EST Office Visit Cardiology, [facility] [address] [place] [address] Joaquina Hernández CRNP [address] [place] [address] 11/20/2023 4:20 PM EST Office Visit Family Medicine [address] [place] [phone] Dany Caruso MD [address] [place] [address] [place] [address] Health Maintenance Due Date Last Done Comments [...] hemoglobin A1c goal of less than 7.0% ([facility])- Primary documented in this encounter Care Teams Line Prep Cook Relationship Specialty Start Date End Date Dany Caruso MD [address] [place] [address] [place] [phone] PCP - General Family Medicine 04/07/21 documented as of this encounter
--- OUTSIDE RECORDS SUMMARY | 2023-11-18 22:58 | External Medical Summary | Summary of Care ---
Author Name Unknown Organization [facility] Address [address] [place] [address] Phone [phone] Care Team Providers Care Store Deli Manager Name Role Phone Jeimy Caruso MD Primary Care Provide r Reason for Visit * Reason Onset Date Comments Medication Pre-auth 05/30/2023 Encounter Details Date Type Department Care Team Description 05/30/[address] [phone] Jeimy Caruso MD [address] [place] [address] [place] [id number] Medication Pre-auth Allergies Active Allergy Reactions Severity Noted Date Comments Morphine 12/27/2013 Nausea, vomiting, diaphoresis Sulfa Antibiotics Itching 10/04/2011 documented as of this encounter (statuses as of 06/01/2023) Medications Medication Sig Dispensed Refills Start Date End Date Status OneTouch Verio w/Device KitIndications:Typ e 2 diabetes mellitus with hemoglobin A1c goal of less than 7.0% ([facility]) Use to test once a day E11.9 1 Kit 0 2 Active Atorvastatin Calcium 40 MG Oral Tablet (Lipitor)Indicatio ns:High triglycerides Take by mouth 1 Tablet in the morning. 30 Tablet 3 2 Active OneTouch UltraSoft LancetsIndications :Type 2 diabetes mellitus with hemoglobin A1c goal of less than 7.0% ([facility]) Use to test twice a day. E11.9 360 Each 1 2 Active Budesonide-Formote rol Fumarate 80-4.5 MCG/ACT Inhalation Aerosol (Symbicort)Indicat ions:SOB (shortness of breath) Inhale by mouth 2 Puffs in the morning AND 2 Puffs before bedtime. 10.2 g 1 2 Active Metoprolol Succinate 25 MG Oral Capsule ER 24 Hour Sprinkle Take by mouth 25 mg daily . 0 2 Active Thiamine HCl 50 MG Oral Tablet Take by mouth 0.5 Tablets in the morning. 0 2 Active Magnesium Oxide (Elemental) 400 MG Oral Tablet Take by mouth 400 mg daily . 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 0 Active Empagliflozin 25 MG Oral Tablet (Jardiance)Indicat ions:Type 2 diabetes mellitus with hemoglobin A1c goal of less than 7.0% (HCC) Take by mouth 1 Tablet in the morning. 90 Tablet 3 2 Active OneTouch Verio In Vitro Strip (Glucose Blood)Indications: Type 2 diabetes mellitus with hemoglobin A1c goal of less than 7.0% (HCC) Use to test blood sugar twice a day. E11.9 200 Strip 3 2 Active Cyclobenzaprine HCl 10 MG Oral Tablet (Flexeril)Indicati ons:Shoulder strain, left, initial encounter Take 1 Tablet (10 mg) by mouth at bedtime as needed for Muscle spasms. 10 Tablet 0 2 Active FreeStyle Kirit 2 SensorIndications: Type 2 diabetes mellitus with hemoglobin A1c goal of less than 7.0% ([facility]) Use as directed. Use to check glucose 3 times a day DXe11.9 2 Each 3 3 Active Gabapentin 100 MG Oral Capsule (Neurontin)Indicat ions:Neuropathy TAKE 1 CAPSULE BY MOUTH IN THE MORNING AND 1 CAPSULE AT NOON AND 1 CAPSULE BEFORE BEDTIME 270 Capsule 3 3 Active hydroCHLOROthiazid e 25 MG Oral Tablet (Hydrodiuril)Indic ations:HTN, goal below 130/80 Take 1 Tablet by mouth in the morning. 30 Tablet 2 3 Active Pantoprazole Sodium 40 MG Oral Tablet Delayed Release (Protonix)Indicati ons:Gastroesophage al reflux disease without esophagitis Take 1 Tablet by mouth in the morning. 30 minutes before the first meal of the day. Do not crush, split or chew the tablet. 30 Tablet 5 3 Active Levemir FlexTouch 100 UNIT/ML Subcutaneous Solution Pen-injector (Insulin Detemir)Indication s:Type 2 diabetes mellitus with hemoglobin A1c goal of less than 7.0% (HCC) inject 45 units under the skin daily 45 mL 0 3 Active Linzess 145 MCG Oral Capsule (linaCLOtide)Indic ations:Constipatio n, unspecified constipation type Take 1 Capsule by mouth daily as needed for Other (constipatio n). 90 Capsule 0 3 Active glipiZIDE ER 10 MG Oral Tablet Extended Release 24 Hour (glipiZIDE XL)Indications:Typ e 2 diabetes mellitus with hemoglobin A1c goal of less than 7.0% (HCC) Take 1 Tablet by mouth in the morning. 30 minutes before a meal.. 30 Tablet 2 3 05/30/20 23 Discontinued(Ref ill) linaCLOtide 72 MCG Oral Capsule (Linzess)Indicatio ns:Constipation, unspecified constipation type Take 1 Capsule by mouth daily as needed for Constipation . 30 Capsule 1 3 06/01/20 23 Discontinued documented as of this encounter (statuses as [...] encounter Miscellaneous Notes * Addendum Note - Jeimy Caruso MD - 06/01/2023 11:09 AM EDTAddended by: JEIMY CARUSO on: 06/01/2023 11:09 AM Modules accepted: Orders * Telephone Encounter - Jeimy Caruso MD - 06/01/2023 11:09 AM EDT linzess 145mcg sent * Telephone Encounter - ALBA An - 06/01/2023 8:12 AM EDT Patients insurance would like to inform the office that linzess is denied because do not see recorddocumentation that pt has tried amitiza or linzess 145 mcg or 290 mcg. They will fax this info to the office, please review and resubmit if appropriate. Thanks, Mary Lou Zee Communications Representative [facility] ([facility]) 06/01/2023,8:12 AM * Telephone Encounter - Delma Merida RPh - 05/31/2023 4:32 PM EDT Add'l info submitted via Teams as requested. Thank you, Delma Merida PharmD Clinical Pharmacist [facility] ([facility]) (formerly Telepharmacy) 05/31/23 4:32 PM [phone] * Telephone Encounter - ALBA Gage - 05/31/2023 4:14 PM EDT Patients insurance would like to inform the office that LINZESS 72 MCG CAPSULE is requiring additional information: office visit notes [facility] reached out via Teams chat. Prior authorization entered in [employer] at [facility]. EOC# [id number] Please fax to [phone] before 930a tomorrow 06/01/23. Thank you, Theresa Arambula manufacturing team leader Apiculture Teacher II [facility] ([facility]) (formerly Telepharmacy) 05/31/2023,4:14 PM * Telephone Encounter - Delma Merida RPh - 05/31/2023 2:48 PM EDT Submitted information in previous note via [employer] (EOC: [id number]).. Awaiting payer response. We will follow-up with insurance starting 06/02. Per [facility] request, if no decision is received from insurance by 06/05, we will route back to the [facility] ED after clarifying with the pharmacy that the claim is still not processing. Thank you, Delma Merida PharmD Clinical Pharmacist [facility] ([facility]) (formerly Telepharmacy) 05/31/23 2:48 PM [phone] * Telephone Encounter - Doc Douglas, [facility] ED - 05/31/2023 1:37 PM EDT Please submit [...] upon this and route back to the [facility] ED pool if no decision is made by the insurance by 06/05, after clarifying with the pharmacy that the claim is still not processing. If PA is denied, please also route back to [facility] ED pool. Thanks, Doc Douglas PharmD Clinical Pharmacist [facility] ([facility]) (formerly Telepharmacy) [phone] 05/31/2023, 1:37 PM * Telephone Encounter - Nathaniel Spaulding [facility] - 05/31/2023 1:28 PM EDT This is a new [place] request. Upon review of this prior authorization request, I verified this request is appropriate. This is prescribed by a department for which [facility] is authorized to review prior authorizations This [...] note, there is nothing currently pending in [facility] for this request. Please advise how to proceed. Thank you, Emeterio Spaulding ([facility]) Apiculture Teacher III [facility] ([facility]) (formerly Telepharmacy) 05/31/2023, 1:28 PM * Telephone Encounter - ALBA Marsh - 05/30/2023 11:40 AM EDT Pt calling to inform doctor that the patient's insurance will not pay for this medication without acompleted prior authorization. Did confirm this information with the pharmacy. Pt's current insurance information is as follows: Patient name: Man Day ID number: [id number] BIN number: [id number] PCN number: [id number] Group number: [id number] Subscriber name: Man Day Primary or Secondary Insurance:Primary Medication: linaCLOtide 72 MCG Oral Capsule (Linzess) Reason for Request: [place] Pharmacy and phone number: [id number] [address] [facility] [phone] Rx plan and phone number: [facility] [phone] What alternative medications does the pharmacy have in stock?: N/A Thank you, Karen Mack Communications Representative I [facility] (formerly Telepharmacy) 05/30/2023,11:41 AM documented in this encounter Plan of Treatment Upcoming Encounters Date Type Specialty Care Team Description 06/15/2023 Office Visit Cardiology Brijesh Gómez, DO [address] [place] [address] 06/21/2023 Office Visit [address] [place] [address] 11/20/2023 Office Visit Family Medicine Jeimy Caruso MD [address] [place] [address] [place] [address] Health Maintenance Due Date Last Done Comments [...] as of this encounter Visit Diagnoses Diagnosis Constipation, unspecified constipation type- Primary documented in this encounter Care Teams Store Deli Manager Relationship Specialty Start Date End Date Jeimy Caruso MD [address] [place] [address] [place] [address] PCP - General Family Medicine 04/07/21 documented as of this encounter
--- OUTSIDE RECORDS SUMMARY | 2023-11-18 22:58 | External Medical Summary | Summary of Care ---
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 If PA is denied, please also route back to [facility]. Thanks, Doc Douglas PharmD Clinical Pharmacist [facility] [phone] 05/31/2023, 1:37 PM * Telephone Encounter - Nathaniel Spaulding CPhT - 05/31/2023 1:28 PM EDT This is a new PA request. Upon review of this prior authorization request, I verified this request is appropriate. This is prescribed by a department for which [facility] is authorized to review prior authorizations [...] note, there is nothing currently pending in [facility] for this request. Please advise how to proceed. Thank you, Emeterio Spaulding ([facility]) Critical Power Install Technician III [facility] ([facility]) (formerly Telepharmacy) 05/31/2023, 1:28 PM * Telephone Encounter - ALBA Marsh - 05/30/2023 11:40 AM EDT Pt calling to inform doctor that the patient's insurance will not pay for this medication without acompleted prior authorization. Did confirm this information with the pharmacy. Pt's current insurance information is as follows: Patient name: Man Day ID number: [id number] BIN number: [id number] PCN number: [id number] Group number: [id number] Subscriber name: Man Trippangelinaariella Primary or Secondary Insurance:Primary Medication: linaCLOtide 72 MCG Oral Capsule (Linzess) Reason for Request: [place] Pharmacy and phone number: [id number] [address] [facility] [phone] Rx plan and phone number: KATARINA Huang [phone] What alternative medications does the pharmacy have in stock?: N/A Thank you, Karen Mack E Business Manager I [facility] (formerly Telepharmacy) 05/30/2023,11:41 AM documented in this encounter Plan of Treatment Upcoming Encounters Date Type Specialty Care Team Description 06/15/2023 Office Visit Cardiology Brijesh Gómez DO [address] [place] [address] 06/21/2023 Office Visit Pharmacy [address] [place] [address] 11/20/2023 Office Visit Family Medicine Dany Caruso MD [address] [place] [address] [place] [address] Health Maintenance Due Date Last Done Comments [...] filedocumented as of this encounter Care Teams Innovation Manager Relationship Specialty Start Date End Date Dany Caruso MD [address] [place] [address] [place] [address] PCP - General Family Medicine 04/07/21 documented as of this encounter
--- OUTSIDE RECORDS SUMMARY | 2023-11-18 22:58 | External Medical Summary | Summary of Care ---
Author Name Unknown Organization [facility] Address [address] [place] [address] Phone [phone] Care Team Providers Care Correction Officer Supervisor Name Role Phone Dany Caruso MD Primary Care Provide r Reason for Visit * Reason Comments Appointment [facility] Discharge (DM) Encounter Details Date Type Department Care Team (Late st Contact Info) Description 08/23/2023 6:10 PM EDT Pharmacy Pharmacy, [address] [place] [address] [place] [address] Type 2 diabetes mellitus with hemoglobin A1c goal of less than 7.0% ([facility])* Allergies Active Allergy Reactions Criticality Noted Date Comments Morphine 12/27/2013 Nausea, vomiting, diaphoresis Sulfa Antibiotics Itching 10/04/2011 documented as of this encounter (statuses as of 08/23/2023) Medications Medication Sig Dispensed Refills Start Date [...] diabetes mellitus with autonomic neuropathy, 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) Use with insulin [...] as of this encounter (statuses as of 08/23/2023) Active Problems Problem Noted Date Diagnosed Date [...] as of this encounter (statuses as of 08/23/2023) Resolved Problems Problem Noted Date Diagnosed Date Resolved Date Type 2 diabetes mellitus wit h autonomic neuropathy 06/29/2022 12/19/2022 Neuropathy 04/07/2021 12/19/2022 Diabetic ketoacidosis withou t coma associated with type 2 diabetes mellitus 04/07/2021 05/06/2021 Overview: 02/2021 Fatigue 11/13/2011 05/10/2022 Esophageal reflux 10/04/2011 04/07/2021 documented as of this encounter (statuses as of 08/23/2023) Immunizations Name Administration Dates Next Due Seasonal [...] as of this encounter Progress Notes * Annette Benitez, acoustical installer - 08/23/2023 8:47 AM EDT Patient Phone Numbers Spoke with Man, declined to schedule with [facility] at this time. Patient is discharged from Medication Therapy Disease Management service at this time and has been made aware to contact the clinic in the future if an appt is needed. Will discharge patient at this time. Pt declined due to no longer having insurance. Thank you, Annette Benitez Engine Tester [facility] ([facility]) (Formerly Telepharmacy) 08/23/2023, 8:47 AM documented in this encounter Plan of Treatment Upcoming Encounters Date Type Department Care Team (Late st Contact Info) Description 09/15/2023 9:30 AM EST Office Visit Cardiology, [facility] [address] [place] [address] Joaquina Hernández CRNP [address] [place] [address] 11/20/2023 4:20 PM EST Office Visit Family Medicine [address] [place] [phone] Dany Caruso MD [address] [place] [address] [place] [address] Health Maintenance Due Date Last Done Comments [...] goal of less than 7.0% ([facility])- Primary documented in this encounter Care Teams Correction Officer Supervisor Relationship Specialty Start Date End Date Dany Caruso MD [address] [place] [address] [place] [phone] PCP - General Family Medicine 04/07/21 documented as of this encounter
--- OUTSIDE RECORDS SUMMARY | 2023-11-18 22:58 | External Medical Summary | Summary of Care ---
Author Name Unknown Organization [facility] Address [address] [place] [address] Phone [phone] Care Team Providers Care Health Underwriter Name Role Phone Dany Caruso MD Primary Care Provide r Reason for Visit * Reason Onset Date Comments Medication Question 08/29/2023 Encounter Details Date Type Department Care Team (Late st Contact Info) Description 08/29/2023 Telephone Family Medicine [address] [id number] Dany Caruso MD [address] [place] [address] [place] [address] Medication Question Allergies Active Allergy Reactions Criticality Noted Date Comments Morphine 12/27/2013 Nausea, vomiting, diaphoresis Sulfa Antibiotics Itching 10/04/2011 documented as of this encounter (statuses as of 08/30/2023) Medications Medication Sig Dispensed Refills Start Date End Date Status OneTouch Verio w/Device KitIndications:Type 2 diabetes mellitus with hemoglobin A1c goal of less than 7.0% ([facility]) Use to test once a day E11.9 1 Kit 0 03/23/2022 Active Atorvastatin Calcium 40 MG Oral Tablet (Lipitor)Indication s:High triglycerides Take by mouth 1 Tablet in the morning. 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 Order pended below He is aware of message below * Telephone Encounter - Ovidio Turner MD - 08/30/2023 10:49 AM EST Pioglitazone sent to [facility]. Let Man know * Telephone Encounter - Clara Collins [facility] - 08/30/2023 10:10 AM EST Can look [...] affordable * Telephone Encounter - Clara Collins [facility] - 08/30/2023 8:15 AM EST Please see message, patient no longer has insurance. Can consider transitioning to Relion 70/30, this may be a slightly cheaper option obtained at [facility]. Will need to assess current BG control/if he is still taking Jardiance/Glipizide. Can look towards utilizing patient assistance programs, however may be several days/weeks until patient is able to obtain the medication. Can look towards this as a assisted solution. Can transition to Lantus and utilizing cost savings card. Called and spoke to patient. Lantus Rx pended for approval. Patient agreeable to stop by clinic andobtain savings card. Clara Collins RP, PharmD Clinical Pharmacist - [facility] 08/30/2023, 8:36 AM Ph.[phone] * Telephone Encounter - Mary Lou Zee PHARM Tech - 08/29/2023 1:32 PM EST Pt called stating he does not have insurance. Pt said when he went to milk pickup driver levemir it was over $400. Pt was wondering if could prescribe another insulin that is cheaper. Pt said he is working on getting insurance but is not sure when he will get it. Thanks, Mary Lou Zee User Interface Developer [facility] ([facility]) 08/29/2023,1:34 PM documented in this encounter Plan of Treatment Upcoming Encounters Date Type Department Care Team (Late st Contact Info) Description 09/15/2023 9:30 AM EST Office Visit Cardiology, [facility] [address] [facility] [place] [address] Joaquina Hernández CRNP [address] [facility] [place] [address] 11/20/2023 4:20 PM EST Office Visit Family Medicine [address] [place] [phone] Dany Caruso MD [address] [place] [address] [place] [address] Health Maintenance Due Date Last Done Comments [...] site documented in this encounter Care Teams Health Underwriter Relationship Specialty Start Date End Date Dany Caruso MD [address] [place] [address] [place] [address] PCP - General Family Medicine 04/07/21 documented as of this encounter
--- OUTSIDE RECORDS SUMMARY | 2023-11-18 22:58 | External Medical Summary | Summary of Care ---
Author Name Unknown Organization [facility] Address [address] [place] [address] Phone [phone] Care Team Providers Care Timber Estimator Name Role Phone Dany Caruso MD Primary Care Provide r Reason for Visit * Reason Onset Date Comments Medication Pre-auth 05/30/2023 Encounter Details Date Type Department Care Team Description 05/30/[address] [phone] Dayn Caruso MD [address] [place] [address] [place] [id number] Medication Pre-auth Allergies Active Allergy Reactions Severity Noted Date Comments Morphine 12/27/2013 Nausea, vomiting, diaphoresis Sulfa Antibiotics Itching 10/04/2011 documented as of this encounter (statuses as of 05/31/2023) Medications Medication Sig Dispensed Refills Start Date End Date Status OneTouch Verio w/Device KitIndications:Type 2 diabetes mellitus with hemoglobin A1c goal of less than 7.0% ([facility]) Use to test once a day E11.9 1 Kit 0 03/23/2022 Active Atorvastatin Calcium 40 MG Oral Tablet (Lipitor)Indication s:High triglycerides Take by mouth 1 Tablet in the morning. 30 Tablet 3 03/23/2022 Active OneTouch UltraSoft LancetsIndications: Type 2 diabetes mellitus with hemoglobin A1c goal of less than 7.0% ([facility]) Use to test twice a day. E11.9 [...] diabetes mellitus with autonomic neuropathy, unspecified whether [facility] insulin use (HCC) Use with insulin once [...] encounter Miscellaneous Notes * Telephone Encounter - Delma Merida [facility] - 05/31/2023 2:48 PM EDT Submitted information in previous note via BarafonPA (EOC: [id number]).. Awaiting payer response. We will follow-up with insurance starting 06/02. Per [facility] request, if no decision is received from insurance by 06/05, we will route back to the [facility] after clarifying with the pharmacy that the claim is still not processing. Thank you, Delma Merida, PharmD Clinical Pharmacist [facility] ([facility]) (formerly Telepharmacy) 05/31/23 2:48 PM [phone] * Telephone Encounter - Doc Douglas, [facility] - 05/31/2023 1:37 PM EDT Please submit PA. Include the following documentation: 05/18/23 OV Please copy and paste the following information into PA form: Ariel helped with constipation in the past What [...] to the [facility] pool if no decision is made by the insurance by 06/05, after clarifying with the pharmacy that the claim is still not processing. If PA is denied, please also route back to [facility] pool. Thanks, Doc Douglas, PharmD Clinical Pharmacist [facility] ([facility]) (formerly [employer]) [phone] 05/31/2023, 1:37 PM * Telephone Encounter - Nathaniel Spaulding CPhT - 05/31/2023 1:28 PM EDT This is a new PA request. Upon review of this prior authorization request, I verified this request is appropriate. This is prescribed by a department for which [facility] is authorized to review prior authorizations This [...] note, there is nothing currently pending in [facility] for this request. Please advise how to proceed. Thank you, Emeterio Spaulding ([facility]) Bag Tester III [facility] ([facility]) (formerly Telepharmacy) 05/31/2023, 1:28 PM * Telephone Encounter - ALBA Marsh - 05/30/2023 11:40 AM EDT Pt calling to inform doctor that the patient's insurance will not pay for this medication without acompleted prior authorization. Did confirm this information with the pharmacy. Pt's current insurance information is as follows: Patient name: Man Day ID number: [id number] BIN number: [id number] PCN number: [id number] Group number: [id number] Subscriber name: Man Day Primary or Secondary Insurance:Primary Medication: linaCLOtide 72 MCG Oral Capsule (Linzess) Reason for Request: [place] Pharmacy and phone number: [id number] [address] [facility] [phone] Rx plan and phone number: [facility] [phone] What alternative medications does the pharmacy have in stock?: N/A Thank you, Karen Mack Peritoneal Dialysis Registered Nurse I [facility] (formerly Telepharmacy) 05/30/2023,11:41 AM documented in this encounter Plan of Treatment Upcoming Encounters Date Type Specialty Care Team Description 06/15/2023 Office Visit Cardiology Brijesh Gómez DO [address] [place] [address] 06/21/2023 Office Visit [address] [place] [address] 11/20/2023 Office Visit Family Medicine Dany Caruso MD [address] [place] [address] [place] [address] Health Maintenance Due Date Last Done Comments [...] filedocumented as of this encounter Care Teams Timber Estimator Relationship Specialty Start Date End Date Dany Caruso MD [address] [place] [address] [place] [address] PCP - General Family Medicine 04/07/21 documented as of this encounter
--- OUTSIDE RECORDS SUMMARY | 2023-11-18 22:58 | External Medical Summary | Summary of Care ---
Author Name Unknown Organization [facility] Address [address] [place] [address] Phone [phone] Care Team Providers Care Imaging Analyst Name Role Phone Dany Caruso MD Primary Care Provide r Reason for Visit * Reason Onset Date Comments Medication Pre-auth 05/30/2023 Encounter Details Date Type Department Care Team Description 05/30/[address] [address] Dany Caruso MD [address] [place] [address] [place] [id number] Medication Pre-auth Allergies Active Allergy Reactions Severity [...] Notes * Telephone Encounter - Delma Merida RPh - 05/31/2023 4:32 PM EDT Add'l info submitted via Teams as requested. Thank you, Delma Merida PharmD Clinical Pharmacist [facility] ([facility]) (formerly Telepharmacy) 05/31/23 4:32 PM [phone] * Telephone Encounter - ALBA Gage - 05/31/2023 4:14 PM EDT Patients insurance would like to inform the office that LINZESS 72 MCG CAPSULE is requiring additional information: office visit notes [facility] reached out via Teams chat. Prior authorization entered in [employer] at [facility]. [facility]# [id number] Please fax to [phone] before 930a tomorrow 06/01/23. Thank you, Theresa Arambula forest patrolman Filtering Machine Tender Helper II [facility] ([facility]) (formerly Telepharmacy) 05/31/2023,4:14 PM * [facility] 2:48 PM EDT Submitted information in previous note via Sellplex[employer] (EOC: [id number]).. Awaiting payer response. We will follow-up with insurance starting 06/02. Per [facility] request, if no decision is received from insurance by 06/05, we will route back to the [facility] after clarifying with the pharmacy that the claim is still not processing. Thank you, Delma Merida PharmD Clinical Pharmacist [facility] ([facility]) (formerly Telepharmacy) 05/31/23 2:48 PM [phone] * [facility] 05/31/2023 1:37 PM EDT Please submit [...] [facility] pool. Thanks, Doc Douglas PharmD Clinical Pharmacist [facility] ([facility]) (formerly Telepharmacy) [phone] 05/31/2023, 1:37 PM * Telephone Encounter - Nathaniel Spaulding CPhT - 05/31/2023 1:28 PM EDT This is a new PA request. Upon review of this prior authorization request, I verified this request is appropriate. This is prescribed by a department for which [facility] is authorized to review prior authorizations [...] note, there is nothing currently pending in [facility] for this request. Please advise how to proceed. Thank you, Emeterio Spaulding ([facility]) Filtering Machine Tender Helper III [facility] 05/31/2023, 1:28 PM * Telephone Encounter - ALBA Marsh Tech - 05/30/2023 11:40 AM EDT Pt calling to inform doctor that the patient's insurance will not pay for this medication without acompleted prior authorization. Did confirm this information with the pharmacy. Pt's current insurance information is as follows: Patient name: Man Day ID number: [id number] BIN number: [id number] PCN number: [id number] Group number: [id number] Subscriber name: Man Mcdowell Ismaariella Primary or Secondary Insurance:Primary Medication: linaCLOtide 72 MCG Oral Capsule (Linzess) Reason for Request: [place] Pharmacy and phone number: [id number] [address] [facility] [phone] Rx plan and phone number: [facility] [phone] What alternative medications does the pharmacy have in stock?: N/A Thank you, Karen Mack Antenna Design Engineer I [facility] (formerly Telepharmacy) 05/30/2023,11:41 AM documented in this encounter Plan of Treatment Upcoming Encounters Date Type Specialty Care Team Description 06/15/2023 Office Visit Cardiology Brijesh Gómez, [address] [place] [address] 06/21/2023 Office Visit Pharmacy [address] [place] [address] 11/20/2023 Office Visit Family Medicine Dany Caruso MD [address] [place] [address] [place] [address] Health Maintenance Due Date Last Done Comments [...] filedocumented as of this encounter Care Teams Imaging Analyst Relationship Specialty Start Date End Date Dany Caruso MD [address] [place] [address] [place] [address] PCP - General Family Medicine 04/07/21 documented as of this encounter
--- OUTSIDE RECORDS SUMMARY | 2023-11-18 22:58 | External Medical Summary | Summary of Care ---
Author Name Unknown Organization [facility] Address [address] [place] [address] Phone [phone] Care Team Providers Care Radial Drill Press Operator Name Role Phone Dany Caruso MD Primary Care Provide r Reason for Visit * Reason Onset Date Comments Medication Pre-auth 05/30/2023 Encounter Details Date Type Department Care Team Description 05/30/[address] [address] Dany Caruso MD [address] [place] [address] [place] [id number] Medication Pre-auth Allergies Active Allergy Reactions Severity Noted Date Comments Morphine 12/27/2013 Nausea, vomiting, diaphoresis Sulfa Antibiotics Itching 10/04/2011 documented as of this encounter (statuses as of 05/31/2023) Medications Medication Sig Dispensed Refills Start Date End Date Status OneTouch Verio w/Device KitIndications:Type 2 diabetes mellitus with hemoglobin A1c goal of less than 7.0% ([facility]) Use to test once a day E11.9 1 Kit 0 03/23/2022 Active Atorvastatin Calcium 40 MG Oral Tablet (Lipitor)Indication s:High triglycerides Take by mouth 1 Tablet in the morning. 30 Tablet 3 03/23/2022 Active OneTouch UltraSoft LancetsIndications: Type 2 diabetes mellitus with hemoglobin A1c goal of less than 7.0% ([facility]) Use to test twice a day. E11.9 [...] Miscellaneous Notes * Telephone Encounter - ALBA Gage - 05/31/2023 4:14 PM EDT Patients insurance would like to inform the office that LINZESS 72 MCG CAPSULE is requiring additional information: office visit notes [facility] reached out via Teams chat. Prior authorization entered in [employer] at [facility]. EOC# [id number] Please fax to [phone] before 930 tomorrow 06/01/23. Thank you, Theresa Arambula CPhT Orthopedic Physician Assistant II [facility] ([facility]) (formerly Telepharmacy) 05/31/2023,4:14 PM * Telephone Encounter - Delma Merida [facility] - 05/31/2023 2:48 PM EDT Submitted information in previous note via PromptPA (EOC: [id number]).. Awaiting payer response. We will follow-up with insurance starting 06/02. Per [facility] request, if no decision is received from insurance by 06/05, we will route back to the [facility] after clarifying with thepharmacy that the claim is still not processing. Thank you, Delma Merida PharmD Clinical Pharmacist [facility] ([facility]) (formerly Telepharmacy) 05/31/23 2:48 PM [phone] * Telephone Encounter - Doc Douglas [facility] - 05/31/2023 1:37 PM EDT [...] and route back to the [facility] pool if no decision is made by the insurance by 06/05, after clarifying with the pharmacy that the claim is still not processing. If PA is denied, please also route back to [facility] pool. Thanks, Doc Douglas PharmD Clinical Pharmacist [facility] ([facility]) (formerly Telepharmacy) [phone] 05/31/2023, 1:37 PM * Telephone Encounter - Nathaniel Spaulding [facility] - 05/31/2023 1:28 PM EDT This is a new PA request. Upon review of this prior authorization request, I verified this request is appropriate. This is prescribed by a department for which [facility] is authorized to review prior authorizations [...] note, there is nothing currently pending in [facility] for this request. Please advise how to proceed. Thank you, Emeterio Spaulding ([facility]) Orthopedic Physician Assistant III [facility] ([facility]) (formerly Telepharmacy) 05/31/2023, 1:28 PM * Telephone Encounter - ALBA Marsh - 05/30/2023 11:40 AM EDT Pt calling to inform doctor that the patient's insurance will not pay for this medication without acompleted prior authorization. Did confirm this information with the pharmacy. Pt's current insurance information is as follows: Patient name: Man Day ID number: [id number] BIN number: [id number] PCN number: [id number] Group number: [id number] Subscriber name: Man Day Primary or Secondary Insurance:Primary Medication: linaCLOtide 72 MCG Oral Capsule (Linzess) Reason for Request: [place] Pharmacy and phone number: [id number] [address] [facility] [phone] Rx plan and phone number: [facility] [phone] What alternative medications does the pharmacy have in stock?: N/A Thank you, Karen Mack Qualifications Examiner I [facility] (formerly Telepharmacy) 05/30/2023,11:41 AM documented in this encounter Plan of Treatment Upcoming Encounters Date Type Specialty Care Team Description 06/15/2023 Office Visit Cardiology Brijesh Gómez, [address] [place] [address] 06/21/2023 Office Visit [address] [place] [address] 11/20/2023 Office Visit Family Medicine Dany Caruso MD [address] [place] [address] [place] [address] Health Maintenance Due Date Last Done Comments [...] filedocumented as of this encounter Care Teams Radial Drill Press Operator Relationship Specialty Start Date End Date Dany Caruso MD [address] [place] [address] [place] [address] PCP - General Family Medicine 04/07/21 documented as of this encounter
--- OUTSIDE RECORDS SUMMARY | 2023-11-18 22:58 | External Medical Summary | Summary of Care ---
Author Name Unknown Organization [facility] Address [address] [place] [address] Phone [phone] Care Team Providers Care Plaster Patternmaker Name Role Phone Dany Caruso MD Primary Care Provide r Reason for Visit * Reason Onset Date Comments Medication Pre-auth 05/30/2023 Encounter Details Date Type Department Care Team Description 05/30/[address] [address] Dany Caruso MD [address] [place] [address] [place] [id number] Medication Pre-auth Allergies Active Allergy Reactions Severity Noted Date Comments Morphine 12/27/2013 Nausea, vomiting, diaphoresis Sulfa Antibiotics Itching 10/04/2011 documented as of this encounter (statuses as of 05/31/2023) Medications Medication Sig Dispensed Refills Start Date End Date Status OneTouch Verio w/Device KitIndications:Type 2 diabetes mellitus with hemoglobin A1c goal of less than 7.0% ([facility]) Use to test once a day E11.9 1 Kit 0 03/23/2022 Active Atorvastatin Calcium 40 MG Oral Tablet (Lipitor)Indication s:High triglycerides Take by mouth 1 Tablet in the morning. 30 Tablet 3 03/23/2022 Active OneTouch UltraSoft LancetsIndications: Type 2 diabetes mellitus with hemoglobin A1c goal of less than 7.0% ([facility]) Use to test twice a day. [...] diabetes mellitus with autonomic neuropathy, unspecified whether usp insulin use (HCC) Use with insulin once [...] encounter Miscellaneous Notes * Telephone Encounter - Nathaniel Spaulding CPhT - 05/31/2023 1:28 PM EDT This is a new PA request. Upon review of this prior authorization request, I verified this request is appropriate. This is prescribed by a department for which [facility] is authorized to review prior [...] note, there is nothing currently pending in [facility] for this request. Please advise how to proceed. Thank you, Emeterio Spaulding ([facility]) Bioprocess Development Engineer III [facility] ([facility]) (formerly Telepharmacy) 05/31/2023, 1:28 PM * Telephone Encounter - ALBA Marsh - 05/30/2023 11:40 AM EDT Pt calling to inform doctor that the patient's insurance will not pay for this medication without acompleted prior authorization. Did confirm this information with the pharmacy. Pt's current insurance information is as follows: Patient name: Man Day ID number: [id number] BIN number: [id number] PCN number: [id number] Group number: [id number] Subscriber name: Man Day Primary or Secondary Insurance:Primary Medication: linaCLOtide 72 MCG Oral Capsule (Linzess) Reason for Request: [place] [facility] and [id number] [address] [facility] [phone] Rx plan and phone number: [facility] [phone] What alternative medications does the pharmacy have in stock?: N/A Thank you, Karen Mack Chemistry Department Chair I [facility] (formerly Telepharmacy) 05/30/2023,11:41 AM documented in this encounter Plan of Treatment Upcoming Encounters Date Type Specialty Care Team Description 06/15/2023 Office Visit Cardiology Brijesh Gómez DO [address] [place] [address] 06/21/2023 Office Visit Pharmacy [address] [place] [address] 11/20/2023 Office Visit Family Medicine Dany Caruso MD [address] [place] [address] [place] [address] Health Maintenance Due Date Last Done Comments [...] filedocumented as of this encounter Care Teams Plaster Patternmaker Relationship Specialty Start Date End Date Dany Caruso MD [address] [place] [address] [place] [address] PCP - General Family Medicine 04/07/21 documented as of this encounter
--- OUTSIDE RECORDS SUMMARY | 2023-11-18 22:59 | External Medical Summary | Summary of Care ---
Author Name Unknown Organization [facility] Address [address] [place] [address] Phone [phone] Care Team Providers Care Environmental Services Assistant Name Role Phone Dany Caruso MD Primary Care Provide r Reason for Visit * Reason Onset Date Comments Medication Pre-auth 05/30/2023 Encounter Details Date Type Department Care Team Description 05/30/[address] [address] Dany Caruso MD [address] [place] [address] [place] [id number] Medication Pre-auth Allergies Active Allergy Reactions Severity Noted Date Comments Morphine 12/27/2013 Nausea, vomiting, diaphoresis Sulfa Antibiotics Itching 10/04/2011 documented as of this encounter (statuses as of 05/30/2023) Medications Medication Sig Dispensed Refills Start Date End Date Status OneTouch Verio w/Device KitIndications:Type 2 diabetes mellitus with hemoglobin A1c goal of less than 7.0% ([facility]) Use to test once a day E11.9 1 Kit 0 03/23/2022 Active Atorvastatin Calcium 40 MG Oral Tablet (Lipitor)Indications: High triglycerides Take by mouth 1 Tablet in the morning. 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 0 Active Empagliflozin 25 MG Oral Tablet (Jardiance)Indication s:Type 2 diabetes mellitus with hemoglobin A1c [...] day DXe11.9 2 Each 3 12/07/2022 Active glipiZIDE ER 10 MG Oral Tablet Extended Release 24 Hour (glipiZIDE XL)Indications:Type 2 diabetes mellitus with hemoglobin A1c goal of less than 7.0% (HCC) Take 1 Tablet by mouth in the morning. 30 minutes before a meal.. 30 Tablet 2 01/04/2023 Active Gabapentin 100 MG Oral Capsule (Neurontin)Indication s:Neuropathy TAKE 1 CAPSULE BY MOUTH IN THE MORNING AND 1 CAPSULE AT NOON AND 1 CAPSULE BEFORE BEDTIME 270 Capsule 3 01/11/2023 Active hydroCHLOROthiazide 25 MG Oral Tablet (Hydrodiuril)Indicati [...] 05/18/2023 Active linaCLOtide 72 MCG Oral Capsule (Linzess)Indications: Constipation, unspecified constipation type Take 1 Capsule by mouth daily as needed for Constipation. 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 Did confirm this information with the pharmacy. Pt's current insurance information is as follows: Patient name: Man Day ID number: [id number] BIN number: [id number] PCN number: [id number] Group number: [id number] Subscriber name: [employer] Primary or Secondary Insurance:Primary Medication: linaCLOtide 72 MCG Oral Capsule (Linzess) Reason for Request: [place] Pharmacy and phone number: [id number] [facility] [phone] Rx plan and phone number: [facility] [phone] What alternative medications does the pharmacy have in stock?: N/A Thank you, Karen Mack Measurement And Verification Engineer [facility] 05/30/2023,11:41 AM documented in this encounter Plan of Treatment Upcoming Encounters Date Type Specialty Care Team Description 06/15/2023 Office Visit Cardiology Brijesh Gómez, [address] [place] [address] 06/21/2023 Office Visit [address] [place] [address] 11/20/2023 Office Visit Family Medicine Dany Caruso MD [address] [place] [address] [place] [address] Health Maintenance Due Date Last Done Comments [...] 03/24/2022, Additional history exists GFR 05/18/2024 05/18/2023, 0404/2023, 07/06/2022, Additional history exists Lipid Panel 05/18/2028 05/18/2023, 06/0 11/2021, 08/10/2021, Additional history exists GARDASIL-HPV IMMUNIZATION SERIES Aged Out No longer eligible based on patient's age to complete this topic MENINGOCOCCAL (MENACTRA/MENVEO) Aged Out No longer eligible based on patient's age to complete this topic documented as of this encounter Medical Devices Not on filedocumented as of this encounter Care Teams Environmental Services Assistant Relationship Specialty Start Date End Date Dany Caruso MD [address] [place] [address] [place] [address] PCP - General Family Medicine 04/07/21 documented as of this encounter
[2023-11-18] MEDS ORDERED: ONDANSETRON INJ 2 MG/ML 2 ML VIAL IV STA (23:10)
[2023-11-18] MEDS ORDERED: FAMOTIDINE 20MG IV PUSH 20 MG/5 ML SYR IV STA (23:10)
--- NOTE | 2023-11-18 23:15 | Emergency Department Note ---
History of Present Illness General Chief complaint: Vomiting Stated complaint: ?R ANKLE INFECTION, SORE, VOMITING Time Seen by Provider: 11/18/23 22:57 History of Present Illness This 43-year-old male with a history of heart failure, PE and diabetes presents the ER complaining of nausea, vomiting, chest pain, abdominal pain for the past day. He also has a chronic sore to his left lower leg. He has been out of his Entresto and glipizide for the past week. He has not checked his blood sugar recently. Patient states he cannot afford his medications. No alcohol tobacco or drug use. Patient denies fever, chills, cough, congestion, flulike illness. Home Medications Medication Instructions Recorded Confirmed Type atorvastatin 40 mg tablet 40 mg PO QAM 06/23/21 09/19/22 History gabapentin 100 mg capsule 100 mg PO TID 06/23/21 09/19/22 History glipizide 5 mg tablet, extended 5 mg PO QAM 06/23/21 09/19/22 History release 24 hr insulin detemir U-100 100 unit/mL 45 unit subcut QPM 06/23/21 09/19/22 History (3 mL) subcutaneous pen (Levemir FlexTouch U-100 Insulin) magnesium oxide 400 mg (241.3 mg 400 mg PO QAM #14 tabs 05/19/22 09/19/22 Rx magnesium) tablet thiamine HCl (vitamin B1) 50 mg 25 mg (1/2 x 50 mg) PO DAILY #15 05/19/22 09/19/22 Rx tablet tabs furosemide 40 mg tablet (Lasix) 40 mg PO Q OTHER DAY PRN weight 06/10/22 09/19/22 Rx gain #30 tabs potassium chloride 20 mEq 20 meq PO .every other day PRN 06/10/22 09/19/22 Rx tablet,extended release(part/cryst) weight gain #30 tabs metoprolol succinate 100 mg 100 mg PO DAILY #30 tabs 09/19/22 09/19/22 Rx tablet,extended release 24 hr sacubitril 97 mg-valsartan 103 mg 1 tab PO BID #60 tabs 02/27/23 Rx tablet (Entresto) Allergies Allergy/AdvReac Type Severity Reaction Status Date / Time Sulfa (Sulfonamide Allergy Intermediate ITCHY/HOT Verified 09/19/22 13:25 Antibiotics) morphine AdvReac Intermediate Nausea Verified 09/19/22 13:25 Past Med/Surg History Medical History Right bundle branch block History of kidney stones Gastroparesis Open trimalleolar fracture (2020) Dislocation of ankle, right, open (2020) Vitamin D deficiency 8.9 in 06/2019 HLD (hyperlipidemia) TG 2049, TC 301 in 06/2019 T2DM (type 2 diabetes mellitus) HTN (hypertension) GERD (gastroesophageal reflux disease) Surgical History History of ankle surgery (2020) right ankle external fixator/I&D History of colonoscopy History of esophagogastroduodenoscopy (EGD) History of tooth extraction History of wisdom tooth extraction S/P knee surgery remove fluid off right knee History of heart surgery (1983) VSD- age 3---no issues since surgery, no machinist brake Family History Father Cardiac disorder Mother No problems noted. Aunt Cardiac disorder Other No family history of adverse response to anesthesia Denies family history of Ovarian cancer Prostate cancer Myocardial infarction Breast cancer Colorectal cancer Social History Smoking Status: Never smoker Age Started Using Tobacco: 16; Age Quit Using Tobacco: 26; packs per day: 0.5; Second Hand Exposure: No; Do You Dip or Chew Tobacco: No; Hx Alcohol Use: Yes Alcohol type: beer Hx Substance Use: No Preferred Language: Malay Communication Ability: Effective Visual Impairment: No Limitations Hearing Ability: Normal Associate Professor Of Theology Required: No Beliefs That Will Affect Care: None marital status: Single Current Living Situation: Alone current occupational status: employed current occupation: [employer] How many Children do You have: 0 Feels Safe at Home: Yes Dental Care, Regularly: Yes Physical Activity Frequency: 3-4 Times per Week Assistive Devices: None Review of Systems A total of 10 systems reviewed and were otherwise negative Physical Exam Vital Signs Vital Signs - 24 hr 11/18/23 22:54 Temperature Source Oral Pulse Rate 85 Respiratory Rate 18 Respiratory Effort / Characteristics Non-Labored Spontaneous Respiratory Depth Normal Respiratory Pattern Regular Blood Pressure 163/91 H Blood Pressure Mean 115 Blood Pressure Position Sitting Pulse Oximetry 97 Oxygen Delivery Method Room Air Sepsis Recent Fever Within 48 Hours No Sepsis New/Unexplained Change in Mental Status N/A Sepsis Action Taken by Nursing No Action Required VITALS: Vitals are noted on the nurse's note and reviewed by myself. Vital signs stable. GENERAL: White male vomiting with present, in no acute distress, nondiaphoretic, well-developed well-nourished. SKIN: Capillary reflex less than 2 seconds. Left lower leg with open diabetic ulcer with minimal surrounding erythema. No lymphangitis HEENT: Normocephalic. PERRLA. EOMI. Nares patent. Mucous membranes dry. Neck is supple without nuchal rigidity. HEART: Regular rate and rhythm LUNGS: Clear to auscultation bilaterally without wheezes, rales or rhonchi. No retractions or accessory muscle use. ABDOMEN: Positive bowel sounds x 4. Normal tympanic percussion. Soft, nontender, without masses or organomegaly. Gongora sign negative. No guarding or rebound tenderness. MUSCULOSKELETAL: No gross musculoskeletal defects. NEURO: Patient was alert and oriented to person place and time. No focal neurological deficits. Course Administered Medications Discontinued Medications Famotidine (Pepcid 20mg Iv Push) 20 mg in 5 mls @ 2.5 mls/min IV NOW STA Stop: 11/18/23 23:11 Last Admin: 11/18/23 23:46 Dose: 2.5 mls/min Documented By: DONNIE Sodium Chloride (Nss) 1,000 mls @ 999 mls/hr IV .Q1H1M ONE Stop: 11/19/23 00:28 Last Admin: 11/18/23 23:46 Dose: 999 mls/hr Documented By: DONNIE Ondansetron HCl (Ondansetron Inj 2 Mg/Ml 2 Ml Vial) 4 mg IV NOW STA Stop: 11/18/23 23:11 Last Admin: 11/18/23 23:46 Dose: 4 mg Documented By: DONNIE Ondansetron HCl (Ondansetron Inj 2 Mg/Ml 2 Ml Vial) 4 mg IV NOW STA Stop: 11/19/23 00:39 Last Admin: 11/19/23 00:46 Dose: 4 mg Documented By: DONNIE Critical Care Time Critical Care Time: Yes Total Critical Care Time: 35 I have personally spent 35 minutes of critical care time in the direct management of this patient. This includes bedside care, interpretation of diagnostic studies, and testing, discussion with consultants, patient, and family members, and other required patient management activities. This 35 minutes is in excess of all separately billable procedures. Medical Decision Making Medical Records Attestation: I reviewed the patient's medical records. Home Medications Current Medication List: was personally reviewed by me Laboratory Data Attestation: I reviewed the patient's lab results. 11/18/23 23:34 11/18/23 23:34 Lab Results 11/18/23 11/18/23 11/18/23 Range/Units 23:21 23:34 23:37 WBC 11.63 H (4.8-10.8) K/ul RBC 5.52 (4.70-6.10) M/uL Hgb 16.6 (14.0-18.0) g/dl Hct 46.4 (42.0-52.0) % MCV 84.1 (80.0-100.0) fL MCH 30.1 (25.0-34.0) pg MCHC 35.8 (32.0-36.0) g/dL RDW Std Deviation 38.4 (36.4-46.3) fL RDW Coeff of Trevon 12.7 (11.5-14.5) % Plt Count 188 (130-400) K/uL MPV 11.8 (9.4-12.4) fL Immature Gran % (Auto) 1.2 % Neut % (Auto) 87.4 % Lymph % (Auto) 8.6 % [place] % (Auto) 2.2 % Eos % (Auto) 0.2 % Baso % (Auto) 0.4 % Neut # (Auto) 10.16 H (1.40-6.50) K/uL Lymph # (Auto) 1.00 L (1.20-3.40) K/uL [place] # (Auto) 0.26 (0.11-0.59) K/uL Eos # (Auto) 0.02 (0.00-0.50) K/uL Baso # (Auto) 0.05 (0.00-0.20) K/uL Immature Gran # (Auto) 0.14 (0.01-0.20) K/uL VBG pH 7.34 L (7.36-7.41) VBG pCO2 41 (38-50) mmHg VBG pO2 51 mmHg VBG HCO3 22 mmol/L VBG O2 Saturation 83.4 % VBG Base Excess -3.5 mEq/L Sodium 135 L (136-145) mmol/L Potassium 3.9 (3.5-5.1) mmol/L Chloride 92 L (98-107) mmol/L Carbon Dioxide 20 L (21-32) mmol/L Anion Gap 23 H (3-11) BUN 14 (6-23) mg/dl Creatinine 0.97 (0.6-1.4) mg/dl Est Cr Clr Drug Dosing 116.0 ml/min Est GFR ( Amer) 109.6 ml/min Est GFR (Non-Af Amer) 94.6 ml/min BUN/Creatinine Ratio 14.4 (10-20) Glucose 417 H* (70-99(Fasting)) mg/dl POC Glucose 411 H* (70-99) mg/dl Calcium 9.7 (8.6-10.3) mg/dl Magnesium 1.9 (1.7-2.4) mg/dl Total Bilirubin 0.8 (0.2-1.0) mg/dl AST 16 (13-39) U/L ALT 19 (7-52) U/L Alkaline Phosphatase 118 H (34-104) U/L Troponin I High Sens 5.6 (0-20) pg/ml B-Natriuretic Peptide 32 (0-100) pg/ml Total Protein 7.6 (6.0-8.3) gm/dl Albumin 4.8 (3.4-5.0) gm/dl Globulin 2.8 (2.5-4.0) gm/dl Albumin/Globulin Ratio 1.7 (0.9-2) Lipase 73 (11-82) U/L Imaging Data Attestation: I personally reviewed and interpreted this imaging study as follows: MDM Narrative Prior records/ancillary studies reviewed and summarized above. Nursing notes reviewed. Additional history obtained from family The patient's history was concerning for nausea, vomiting, chest pain, dyspnea, abdominal pain, sore to the left lower leg who has been out of his Entresto and glipizide for the past week. Differential diagnosis: Etiologies such as metabolic, infection, hypo/hyperglycemia, electrolyte abnormalities, cardiac sources, intracerebral event, toxicologic, neurologic, as well as others were entertained. Physical examination: As above. ER treatment provided: IV Lock An order was placed for continuous cardiac monitoring. The monitor shows a rate of 60-100 with a sinus rhythm per my interpretation. Zofran, Pepcid were ordered Fingerstick was ordered Rocephin was ordered for left lower leg open wound infection Plasma-Lyte was ordered Insulin drip was ordered On reassessment the patient felt better. Diagnostics interpretation by me: ECG: Ordered for chest pain EKG: Normal sinus, right bundle, Q waves in inferior leads, no other ST or T wave changes. Impression normal sinus rhythm with a right bundle branch block unchanged from prior with Q waves in inferior leads independently interpreted by myself The labs Independently Interpreted by myself revealed hyperglycemia with DKA VBG was reviewed Imaging studies: Chest x-ray with no acute consolidation, pneumothorax or free air per my independent interpretation Consultation: A consultation was placed with the hospitalist. The case was discussed and diagnostics were reviewed. The patient was evaluated in the ER for further treatment. Exam and history seem consistent with DKA. Patient was hydrated as above. He was started on insulin drip. He was reassessed multiple times. He is agreeable treatment plan of admission. Medicine was consulted and case was discussed. Patient was admitted to the medical service. By the evaluation outlined above emergent etiologies such as cardiac sources, intracerebral event, toxologic, neurologic, as well as others were deemed relatively unlikely. The pt informed about the findings as listed above. All questions were answered and pleased with the treatment. The chart was completed utilizing [employer] Speech voice recognition software. Grammatical errors, random word insertions, pronoun errors, and incomplete sentences are an occassional consequence of this system due to software limitations, ambient noise, and hardware issues. Any formal questions or concerns about the content, text, or information contained within the body of this dictation should be directly addressed to the physician facilities maintenance assistant for clarification. Impression & Plan DKA (diabetic ketoacidosis) Discharge Plan Visit Data Chief Complaint: Vomiting Stated Complaint: ?R ANKLE INFECTION, SORE, VOMITING ED Provider: Esperanza Nolan ED Midlevel Provider: Abigail Cintron Discharge Problem: DKA (diabetic ketoacidosis) Patient Disposition: Admitted As Inpatient Condition: Fair Forms Stand Alone Forms: My [facility] Prescriptions Prescriptions: No Action Entresto 97-103 mg tablet 1 tab PO BID Qty: 60 6RF potassium chloride 20 mEq tablet,ER particles/crystals 20 meq PO .every other day PRN (Reason: weight gain) Qty: 30 3RF furosemide [Lasix] 40 mg tablet 40 mg PO Q OTHER DAY PRN (Reason: weight gain) Qty: 30 3RF Rx Instructions: Increase to daily as needed for weight gain, edema, SOB. metoprolol succinate 100 mg tablet extended release 24 hr 100 mg PO DAILY Qty: 30 1RF atorvastatin 40 mg tablet 40 mg PO QAM glipizide 5 mg tablet extended release 24hr 5 mg PO QAM Rx Instructions: TAKE 30 MINUTES PRIOR TO A MEAL. gabapentin 100 mg capsule 100 mg PO TID Levemir FlexTouch U100 Insulin 100 unit/mL (3 mL) insulin pen 45 unit SUBCUT QPM magnesium oxide 400 mg (241.3 mg magnesium) Tablet 400 mg PO QAM Qty: 14 0RF thiamine HCl (vitamin B1) 50 mg tablet 25 mg PO DAILY Qty: 15 0RF Referrals Referrals: Dany Caruso MD [Primary Care Provider] - Discharge Problem: DKA (diabetic ketoacidosis) Qualifiers: Diabetes mellitus type: type 2 Diabetes mellitus complication detail: without coma Qualified Code(s): E11.10 - Type 2 diabetes mellitus with ketoacidosis without coma
[2023-11-18] MEDS ORDERED: SODIUM CHLORIDE 0.9% 1,000 ML IV ONE (23:28)
[2023-11-18 23:50] LABS: Base Excess VBG -3.5 mEq/L; HCO3 VBG 22 mmol/L; Oxygen Saturation VBG 83.4 %; PCO2 VBG 41 mmHg (38-50); PO2 VBG 51 mmHg; pH VBG 7.34 (7.36-7.41)
[2023-11-18 23:58] LABS: Basophils # (auto) 0.05 K/uL (0.00-0.20); Basophils % (auto) 0.4 %; Eosinophils # (auto) 0.02 K/uL (0.00-0.50); Eosinophils % (auto) 0.2 %; Hematocrit (blood only) 46.4 % (42.0-52.0); Hemoglobin 16.6 g/dl (14.0-18.0); Immature Granulocytes # (auto) 0.14 K/uL (0.01-0.20); Immature Granulocytes % (auto) 1.2 %; Lymphocytes % (auto) 8.6 %; Mean Corpuscular Hemoglobin 30.1 pg (25.0-34.0); Mean Corpuscular Hgb Conc 35.8 g/dL (32.0-36.0); Mean Corpuscular Volume 84.1 fL (80.0-100.0); Mean Platelet Volume 11.8 fL (9.4-12.4); Monocytes # (auto) 0.26 K/uL (0.11-0.59); Monocytes % (auto) 2.2 %; Neutrophils # (auto) 10.16 K/uL (1.40-6.50); Neutrophils % (auto) 87.4 %; Platelet Count 188 K/uL (130-400); RDW Coefficient of Variation 12.7 % (11.5-14.5); RDW Standard Deviation 38.4 fL (36.4-46.3); Red Blood Count 5.52 M/uL (4.70-6.10); White Blood Count 11.63 K/ul (4.8-10.8)
[2023-11-19 00:29] LABS: Albumin Globulin Ratio 1.7 (0.9-2); Albumin Level 4.8 gm/dl (3.4-5.0); BUN Creatinine Ratio 14.4 (10-20); Bilirubin,Total 0.8 mg/dl (0.2-1.0); Calcium 9.7 mg/dl (8.6-10.3); Est GFR (African American) 109.6 ml/min; Est GFR (Non-African American) 94.6 ml/min; Globulin 2.8 gm/dl (2.5-4.0); Magnesium 1.9 mg/dl (1.7-2.4); Potassium 3.9 mmol/L (3.5-5.1); Total Protein 7.6 gm/dl (6.0-8.3); Troponin I High Sensitivity 5.6 pg/ml (0-20)
[2023-11-19] MEDS ORDERED: PHARMACY GLYCEMIC MGMT CONSULT PRN ×2 (00:31→07:52)
[2023-11-19] MEDS ORDERED: DKA GOAL RANGE 150-250 mg/dl ONE (00:31)
[2023-11-19] MEDS ORDERED: STAT IV Infusion **Titration per Protocol STA (00:31)
[2023-11-19] MEDS ORDERED: LACTATED RINGER'S 1,000 ML IV ONE ×4 (00:37→19:19)
[2023-11-19] MEDS ORDERED: ONDANSETRON INJ 2 MG/ML 2 ML VIAL IV STA (00:38)
[2023-11-19] MEDS ORDERED: cefTRIAXone SODIUM 2,000 MG/50 ML BAG IV STA (00:39)
--- NOTE | 2023-11-19 00:39 | Emergency Department Note ---
ED Visit Note I was consulted by the Advanced Practice Provider. I personally made/approved the management plan and take responsibility for the patient management. I performed a substantive portion of the visit. This includes the aspects of: -Diabetes, CHF presenting vomiting. Patient found to be in DKA with being covered with antibiotics for a small wound. Fluids are as well. Will be admitted for further medical management. .
[2023-11-19] MEDS ORDERED: PLASMA-LYTE A 1,000 ML IV ONE (00:40)
[2023-11-19] MEDS ORDERED: INSULIN REGULAR 250 UNITS in SODIUM CHLORIDE 0.9% 247.5 ML IV SCH (00:45)
[2023-11-19] MEDS ORDERED: GLUCOSE 40% GEL 15 GM TUBE PO PRN ×2 (00:45→02:29)
[2023-11-19] MEDS ORDERED: CARBOHYDRATES FOR HYPOGLYCEMIA PO PRN ×2 (00:45→02:29)
[2023-11-19] MEDS ORDERED: NovoLIN-R BOLUS FROM BAG IV ONE (00:45)
[2023-11-19] MEDS ORDERED: GLUCOSE 10 TAB/TUBE PO PRN ×2 (00:45→02:29)
[2023-11-19] MEDS ORDERED: DEXTROSE 50% 50 ML SYRINGE IV PRN ×2 (00:45→02:29)
[2023-11-19] MEDS ORDERED: GLUCAGON FOR INJ 1 MG VIAL IM PRN (00:45)
[2023-11-19] MEDS ORDERED: THIAMINE HCL 100 MG in SYRINGE 9 ML IV STA (00:49)
[2023-11-19] MEDS ORDERED: METOPROLOL SUCC 25MG EXT REL TAB PO STA (00:51)
[2023-11-19] MEDS ORDERED: DOXYCYCLINE HYCLATE 100 MG in DEXTROSE 5% MINI-B 100 ML IV STA (00:53)
[2023-11-19] MEDS ORDERED: NovoLIN-R INSULIN PER UNIT CHARGE IV STA (00:58)
[2023-11-19] MEDS ORDERED: LANTUS PER UNIT CHARGE SQ STA (01:19)
[2023-11-19] MEDS ORDERED: PROMETHAZINE HCL 12.5 MG in SODIUM CHLORIDE 0.9% 50 ML IV STA (02:10)
[2023-11-19] MEDS: PROMETHAZINE 12.5 MG/50.5 ML NSS IV ONE ×2 (02:11)
--- NOTE | 2023-11-19 02:16 | History & Physical Report ---
Date of Service November 19, 2023 Assessment & Plan (1) Hyperglycemic crisis in diabetes mellitus: Plan: Mild DKA History DM 2 insulin requiring, suboptimal control as of recent hemoglobin A1c of 10 last month Multifactorial: Medical noncompliance secondary to financial constraints LLE cellulitis/history of chronic wound contributory, no overt sepsis for now, but recurrent DVT, rule out osteomyelitis chronic systolic heart failure secondary to nonischemic cardiomyopathy (EF 35 to 39%, TTE 2022), patient on the dry side hypertension, elevated secondary to illness hyperlipidemia on statin Rx history unprovoked PE status post Xarelto GERD/gastroparesis as per records alcohol abuse as per records, patient denies recent EtOH intake and abuse issues past tobacco abuse Medical telemetry given BP elevation Titrate home BP meds Basal bolus insulin, ISS BG goal 1 10-1 40, carb count coverage, update hemoglobin A1c, DM education May benefit from pharmacy glycemic control consultation CS, Doxycycline and Cefepime for LLE cellulitis LLE venous Dopplers rule out recurrent DVT MRI LLE rule out osteomyelitis given chronic wound Wound care nurse consult [place] S at risk protocol, DT precautions DVT prophylaxis per Lovenox subcu Full code Text document was generated using [employer] voice recognition software. It may contain grammatical or spelling errors. Kindly contact undersigned for clarification of any documentation item in question. History of Present Illness Chief Complaint: Abdominal pain, nausea, vomiting Primary Care Provider: Dany Caruso MD History obtained from patient and records. Medical history significant for chronic systolic heart failure secondary to nonischemic cardiomyopathy (EF 35 to 39%, TTE 2022), history congenital heart surgery, hypertension, hyperlipidemia, history unprovoked PE status post Xarelto, DM2 insulin requiring, GERD, gastroparesis as per records, chronic LLE wound, alcohol abuse as per records, past tobacco abuse, medical noncompliance as per records. Last confinement 2021 for unprovoked pulmonary thromboembolism. Patient completed Xarelto course. Patient having issues procuring home medications (Entresto, insulin) the last couple of months due to being out of work. Erratic blood sugar checks at home. Patient cannot give exact numbers on query. 2 weeks ago, patient noted worsening pain and redness on chronic sore on left leg which she has had for about 2 years associated with purulent drainage. No fever, no chills. Yesterday, patient noted achy abdominal pain going to the chest associated with nausea and multiple episodes of bilious emesis. Denies constipation, diarrhea, headache symptoms. No shortness of breath. SBP 160s upon arrival at the ER. IV Ceftriaxone administered at the ER. Medical History as above Surgical History : VSD surgery Family History : DM Personal/Social history : Past tobacco abuse, alcohol abuse as per records which patient denies, currently unemployed, applying for disability Allergies Allergy/AdvReac Type Severity Reaction Status Date / Time Sulfa (Sulfonamide Allergy Intermediate ITCHY/HOT Verified 09/19/22 13:25 Antibiotics) morphine AdvReac Intermediate Nausea Verified 09/19/22 13:25 Home Medications Medication Instructions Recorded Confirmed Type atorvastatin 40 mg tablet 40 mg PO QAM 06/23/21 11/19/23 History gabapentin 100 mg capsule 100 mg PO TID 06/23/21 11/19/23 History glipizide 5 mg tablet, extended 5 mg PO QAM 06/23/21 11/19/23 History release 24 hr magnesium oxide 400 mg (241.3 mg 400 mg PO QAM #14 tabs 05/19/22 11/19/23 Rx magnesium) tablet thiamine HCl (vitamin B1) 50 mg 25 mg (1/2 x 50 mg) PO DAILY #15 05/19/22 0 11/19/23 Rx tablet tabs metoprolol succinate 100 mg 100 mg PO DAILY #30 tabs 09/19/22 11/19/23 Rx tablet,extended release 24 hr budesonide-formoterol HFA 80 2 puff inhalation BID 11/19/23 11/19/23 History mcg-4.5 mcg/actuation aerosol inhaler cyclobenzaprine 10 mg tablet 10 mg PO HS PRN Muscle Spasm 11/19/23 11/19/23 History hydrochlorothiazide 25 mg tablet 25 mg PO 1XD 11/19/23 11/19/23 History insulin NPH isoph U-100 human 100 18 unit subcut 2XD 11/19/23 11/19/23 History unit/mL subcutaneous suspension (Novolin N NPH U-100 Insulin isophane) losartan 25 mg tablet (Cozaar) 25 mg PO 1XD 11/19/23 11/19/23 History pantoprazole 40 mg tablet,delayed 40 mg PO DAILY 11/19/23 11/19/23 History release Past Med/Surg History Medical History Right bundle branch block History of kidney stones Gastroparesis Open trimalleolar fracture (2020) Dislocation of ankle, right, open (2020) Vitamin D deficiency 8.9 in 06/2019 HLD (hyperlipidemia) TG 2049, TC 301 in 06/2019 T2DM (type 2 diabetes mellitus) HTN (hypertension) GERD (gastroesophageal reflux disease) Surgical History History of ankle surgery (2020) right ankle external fixator/I&D History of colonoscopy History of esophagogastroduodenoscopy (EGD) History of tooth extraction History of wisdom tooth extraction S/P knee surgery remove fluid off right knee History of heart surgery (1983) VSD- age 3---no issues since surgery, 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 Aunt Cardiac disorder Other No family history of adverse response to anesthesia Denies family history of Ovarian cancer Prostate cancer Myocardial infarction Breast cancer Colorectal cancer Social History Smoking Status: Former smoker Age Started Using Tobacco: 16; Age Quit Using Tobacco: 26; packs per day: 0.5; Second Hand Exposure: No; Do You Dip or Chew Tobacco: No; Hx Alcohol Use: No Hx Substance Use: No Preferred Language: Irish Communication Ability: Effective Visual Impairment: No Limitations Hearing Ability: Normal Stack Supervisor Required: No Beliefs That Will Affect Care: None marital status: Single Current Living Situation: Significant Other current occupational status: employed current occupation: [employer] How many Children do You have: 0 Feels Safe at Home: Yes Safety Concerns: Feels Safe At This Time Dental Care, Regularly: Yes Physical Activity Frequency: 3-4 Times per Week Assistive Devices: None Review of Systems Review of Systems: As per HPI, all other systems reviewed and negative Physical Exam Physical Exam: GENERAL: Slightly uncomfortable, actively vomiting at time of exam, obese, looks older than stated age no respiratory distress SKIN: Normal color, warm HEENT: [place] palpebral conjunctivae, no ptosis, dry buccal mucosa NECK : Supple, no tenderness CHEST : CTA, no tenderness HEART : RRR, no obvious murmurs ABDOMEN: Some distention, minimal epigastric tenderness EXTREMITIES : Minimal LLE swelling with necrotic wound, no gross purulence noted, minimal LLE tenderness, no other conspicuous deformities noted NEUROLOGIC : Coherent, no facial asymmetry, no other gross focality Results & Data Results & Data Vital Signs (Past 12 Hours) Vital Signs Pulse Resp BP Pulse Ox O2 Del Method 11/18/23 22:54 85 18 163/91 H 97 Room Air Laboratory Results Laboratory Results WBC 11.63 K/ul (4.8-10.8) H 11/18/23 23:34 RBC 5.52 M/uL (4.70-6.10) 11/18/23 23:34 Hgb 16.6 g/dl (14.0-18.0) 11/18/23 23:34 Hct 46.4 % (42.0-52.0) 11/18/23 23:34 MCV 84.1 fL (80.0-100.0) 11/18/23 23:34 MCH 30.1 pg (25.0-34.0) 11/18/23 23:34 MCHC 35.8 g/dL (32.0-36.0) 11/18/23 23:34 RDW Std Deviation 38.4 fL (36.4-46.3) 11/18/23 23:34 RDW Coeff of Trevon 12.7 % (11.5-14.5) 11/18/23 23:34 Plt Count 188 K/uL (130-400) 11/18/23 23:34 MPV 11.8 fL (9.4-12.4) 11/18/23 23:34 Immature Gran % (Auto) 1.2 % 11/18/23 23:34 Neut % (Auto) 87.4 % 11/18/23 23: Lymph % (Auto) 8.6 % 11/18/23 23:34 [place] % (Auto) 2.2 % 11/18/23 23:34 Eos % (Auto) 0.2 % 11/18/23 23:34 Baso % (Auto) 0.4 % 11/18/23 23: Neut # (Auto) 10.16 K/uL (1.40-6.50) H 11/18/23 23:34 Lymph # (Auto) 1.00 K/uL (1.20-3.40) L 11/18/23 23:34 [place] # (Auto) 0.26 K/uL (0.11-0.59) 11/18/23 23:34 Eos # (Auto) 0.02 K/uL (0.00-0.50) 11/18/23 23:34 Baso # (Auto) 0.05 K/uL (0.00-0.20) 11/18/23 23:34 Immature Gran # (Auto) 0.14 K/uL (0.01-0.20) 11/18/23 23:34 VBG pH 7.34 (7.36-7.41) L 11/18/23 23:37 VBG pCO2 41 mmHg (38-50) 11/18/23 23:37 VBG pO2 51 mmHg 11/18/23 23:37 VBG HCO3 22 mmol/L 11/18/23 23:37 VBG O2 Saturation 83.4 % 11/18/23 23:37 VBG Base Excess -3.5 mEq/L 11/18/23 23:37 Sodium 135 mmol/L (136-145) L 11/18/23 23:34 Potassium 3.9 mmol/L (3.5-5.1) 11/18/23 23:34 Chloride 92 mmol/L (98-107) L 11/18/23 23:34 Carbon Dioxide 20 mmol/L (21-32) L 11/18/23 23:34 Anion Gap 23 (3-11) H 11/18/23 23:34 BUN 14 mg/dl (6-23) 11/18/23 23:34 Creatinine 0.97 mg/dl (0.6-1.4) 11/18/23 23:34 Est Cr Clr Drug Dosing 116.0 ml/min 11/18/23 23:34 Est GFR ( Amer) 109.6 ml/min 11/18/23 23:34 Est GFR (Non-Af Amer) 94.6 ml/min 11/18/23 23:34 BUN/Creatinine Ratio 14.4 (10-20) 11/18/23 23:34 Glucose 417 mg/dl (70-99(Fasting)) H* 11/18/23 23:34 POC Glucose 396 mg/dl (70-99) H* 11/19/23 01:48 Calcium 9.7 mg/dl (8.6-10.3) 11/18/23 23:34 Magnesium 1.9 mg/dl (1.7-2.4) 11/18/23 23:34 Total Bilirubin 0.8 mg/dl (0.2-1.0) 11/18/23 23:34 AST 16 U/L (13-39) 11/18/23 23:34 ALT 19 U/L (7-52) 11/18/23 23:34 Alkaline Phosphatase 118 U/L (34-104) H 11/18/23 23:34 Troponin I High Sens 5.6 pg/ml (0-20) 11/18/23 23:34 B-Natriuretic Peptide 32 pg/ml (0-100) 11/18/23 23:34 Total Protein 7.6 gm/dl (6.0-8.3) 11/18/23 23:34 Albumin 4.8 gm/dl (3.4-5.0) 11/18/23 23:34 Globulin 2.8 gm/dl (2.5-4.0) 11/18/23 23:34 Albumin/Globulin Ratio 1.7 (0.9-2) 11/18/23 23:34 Lipase 73 U/L (11-82) 11/18/23 23:34 CT abdomen pelvis: No acute abdominal process identified CT LLE: 1. No acute osseous abnormality 2. Soft tissue defect on the medial aspect of the distal left leg with surrounding soft tissue edema Diagnostic Findings Chest x-ray as per my interpretation cardiomegaly, atelectasis, minimal congestion EKG as per my interpretation : Rate 75, NSR, LAD, LAFB, RBBB, inferior infarct, septal infarct, T wave flattening inferior leads
[2023-11-19] MEDS ORDERED: GLUCAGON FOR INJ 1 MG VIAL SQ PRN (02:29)
[2023-11-19] MEDS ORDERED: PROMETHAZINE HCL 12.5 MG in SODIUM CHLORIDE 0.9% 50 ML IV PRN (02:30)
[2023-11-19] MEDS ORDERED: LORazepam 0.5 MG in SYRINGE 0.25 ML IV PRN (02:30)
[2023-11-19 02:50] LABS: Base Excess VBG -6.1 mEq/L; HCO3 VBG 20 mmol/L; PCO2 VBG 42 mmHg (38-50); PO2 VBG 46 mmHg; pH VBG 7.29 (7.36-7.41)
[2023-11-19] MEDS ORDERED: OPTIRAY 320 500ml IV ONE (02:58)
[2023-11-19] MEDS ORDERED: PIPERACILLIN/TAZOBACTAM 4.5 GM/100 ML BAG IV ONE (03:06)
[2023-11-19 03:16] LABS: BUN Creatinine Ratio 14.9 (10-20); Creatinine Clr Calc Pharmacy 119.7 ml/min; Est GFR (African American) 113.8 ml/min; Est GFR (Non-African American) 98.2 ml/min; Potassium 3.9 mmol/L (3.5-5.1)
[2023-11-19] MEDS ORDERED: LORazepam 1 MG in SYRINGE 0.5 ML IV PRN (03:48)
[2023-11-19] MEDS: INSULIN ASPART PER UNIT CHARGE SC SCH ×9 (04:16→21:07)
[2023-11-19 04:44] LABS: Appearance Urine Clear (Clear); Bilirubin Urine Negative (Negative); Blood Urine Negative (Negative); Color Urine Yellow; Glucose Urine UA 2+ (Negative); Ketones Urine 4+ (Negative); Leukocyte Esterase Urine Negative (Negative); Nitrite Urine Negative (Negative); Protein Urine 1+ (Negative); Specific Gravity Urine 1.025 (1.000-1.030); Urobilinogen Urine Negative (Negative)
[2023-11-19 05:05] LABS: Bacteria Urine Negative (Negative); Epithelial Cell Urine 0-5 /lpf (0-5); RBC Urine 0-4 /hpf (0-4); WBC Urine 0-5 /hpf (0-5)
[2023-11-19] MEDS ORDERED: INSULIN ASPART PER UNIT CHARGE SC SCH ×3 (06:00→08:15)
--- NOTE | 2023-11-19 06:09 | CT Scan Report ---
Exam(s): CT ABDOMEN + PELVIS With Contrast IV Amt: 89 ml opti 320 EXAM: CT Abdomen and Pelvis With Intravenous Contrast CLINICAL HISTORY: Reason for exam: abd pain nv. TECHNIQUE: Axial computed tomography images of the abdomen and pelvis with intravenous contrast. CTDI is 26.66 mGy and DLP is 1793.54 mGy-cm. Automated exposure control was utilized for the study. A dose lowering technique was utilized adhering to the principles of ALARA. CONTRAST: Patient received 89 ml opti 320 of IV contrast COMPARISON: No relevant prior studies available. FINDINGS: Lung bases: Unremarkable. No mass. No consolidation. ABDOMEN: Liver: Fatty liver. Gallbladder and bile ducts: Unremarkable. No calcified stones. No ductal dilation. Pancreas: Unremarkable. No mass. No ductal dilation. Spleen: Unremarkable. No splenomegaly. Adrenals: Unremarkable. No mass. Kidneys and ureters: Unremarkable. No solid mass. No hydronephrosis. Stomach and bowel: Sigmoid colonic diverticulosis. No obstruction. No mucosal thickening. PELVIS: Appendix: Normal appendix. Bladder: Unremarkable. No mass. Reproductive: Unremarkable as visualized. ABDOMEN and PELVIS: Intraperitoneal space: Unremarkable. No free air. No significant fluid collection. Bones/joints: No acute fracture. No dislocation. Soft tissues: Small omental fat-containing umbilical hernia. Vasculature: Unremarkable. No abdominal aortic aneurysm. Lymph nodes: Unremarkable. No enlarged lymph nodes. Other findings: There is L2/3 posterior disc osteophyte complex. IMPRESSION: No acute abdominal process identified Electronically signed by: Timothy Ch MD 11/19/23 06:08 AM
--- NOTE | 2023-11-19 06:12 | CT Scan Report ---
Exam(s): CT EXTREMITY LEFT LOWER With Contrast IV Amt: 89 ml opti 320 EXAM: CT Left Lower Extremity With Intravenous Contrast CLINICAL HISTORY: Reason for exam: swelling/wound. TECHNIQUE: Axial computed tomography images of the left lower extremity with intravenous contrast. CTDI is 6.03 mGy and DLP is 354.56 mGy-cm. Automated exposure control was utilized for the study. A dose lowering technique was utilized adhering to the principles of ALARA. CONTRAST: Patient received 89 ml opti 320 of IV contrast COMPARISON: No relevant prior studies available. FINDINGS: Bones/joints: Degenerative arthritic changes seen at the patellofemoral joint. 1 cm subchondral cystic change seen in the proximal tibia. No acute fracture. No dislocation. Soft tissues: There is 1.4 cm diameter soft tissue defect with surrounding soft tissue edema seen on the medial aspect of the left distal leg. IMPRESSION: 1. No acute osseous abnormality 2. Soft tissue defect on the medial aspect of the distal left leg with surrounding soft tissue edema Electronically signed by: Timothy Ch MD 11/19/23 06:11 AM
[2023-11-19] MEDS: PANTOprazole 40 MG TAB PO SCH (06:38)
[2023-11-19 06:47] LABS: Base Excess VBG 0.7 mEq/L; HCO3 VBG 26 mmol/L; Oxygen Saturation VBG 70.4 %; PCO2 VBG 43 mmHg (38-50); PO2 VBG 40 mmHg; pH VBG 7.39 (7.36-7.41)
[2023-11-19 07:01] LABS: Basophils # (auto) 0.03 K/uL (0.00-0.20); Basophils % (auto) 0.3 %; Hematocrit (blood only) 43.7 % (42.0-52.0); Hemoglobin 15.4 g/dl (14.0-18.0); Immature Granulocytes # (auto) 0.17 K/uL (0.01-0.20); Immature Granulocytes % (auto) 1.9 %; Lymphocytes # (auto) 0.65 K/uL (1.20-3.40); Lymphocytes % (auto) 7.2 %; Mean Corpuscular Hemoglobin 29.7 pg (25.0-34.0); Mean Corpuscular Hgb Conc 35.2 g/dL (32.0-36.0); Mean Corpuscular Volume 84.4 fL (80.0-100.0); Mean Platelet Volume 11.2 fL (9.4-12.4); Monocytes # (auto) 0.31 K/uL (0.11-0.59); Monocytes % (auto) 3.5 %; Neutrophils # (auto) 7.81 K/uL (1.40-6.50); Neutrophils % (auto) 87.1 %; Platelet Count 172 K/uL (130-400); RDW Coefficient of Variation 12.8 % (11.5-14.5); RDW Standard Deviation 39.1 fL (36.4-46.3); Red Blood Count 5.18 M/uL (4.70-6.10); White Blood Count 8.97 K/ul (4.8-10.8)
[2023-11-19 07:23] LABS: BUN Creatinine Ratio 15.4 (10-20); C Reactive Protein 0.72 mg/dl (0-0.5); Calcium 8.7 mg/dl (8.6-10.3); Creatinine Clr Calc Pharmacy 144.3 ml/min; Est GFR (African American) 127.2 ml/min; Est GFR (Non-African American) 109.8 ml/min; Potassium 3.9 mmol/L (3.5-5.1)
[2023-11-19] MEDS: FOLIC ACID 1 MG TAB PO SCH (07:34)
[2023-11-19] MEDS: MAGNESIUM OXIDE 400 MG TAB PO SCH (07:34)
[2023-11-19] MEDS: GABAPENTIN 100 MG CAP PO SCH ×3 (07:34→21:09)
[2023-11-19] MEDS: METOPROLOL SUCC 50MG EXT REL TAB PO SCH (07:34)
[2023-11-19] MEDS: MULTIVITAMIN TAB PO SCH (07:35)
[2023-11-19] MEDS: FLUTICASONE/VILANTEROL 100/25MCG 14 PUFFS/INHALER INH SCH (07:37)
--- NOTE | 2023-11-19 08:27 | Ultrasound Report ---
US venous doppler LE LT CLINICAL HISTORY: swelling TECHNIQUE: Left lower extremity real-time compression venous ultrasound with Color Doppler imaging. U tilizing real-time ultrasonic imaging multiple real time high-resolution ultrasonic images with compr ession and noncompression maneuvers of the deep venous system in addition to color doppler imaging we re performed from the common femoral vein through the proximal calf veins. COMPARISON: None available at the time of this dictation. FINDINGS/IMPRESSION: There is a mobile thrombus in the left popliteus muscle that migrated during the course of the exam. Following this migration, no deep venous thrombus is seen. Nonhealing ulcer is again noted in the ank le. ACT 112: Negative or not required by law. Electronically signed by: Salvatore Delaney M.D. 11/19/2023 8:24 AM
[2023-11-19 08:54] LABS: Estimated Average Glucose 289 mg/dl; Hemoglobin A1C 11.7 % (4.5-5.6)
[2023-11-19] MEDS ORDERED: ENOXAPARIN INJ 40 MG/0.4 ML SYR SQ SCH (09:00)
--- NOTE | 2023-11-19 09:37 | XRay Report ---
XR chest 1V portable CLINICAL HISTORY: Chest pain, nonspecific TECHNIQUE: Single frontal radiograph of the chest was obtained. Comparison: Comparison is made to chest radiograph 05/17/2022 FINDINGS: No lines and tubes are seen. Cardiomegaly is noted. Prominence and cephalization of the vasculature i s seen. No evidence of pleural effusion or pneumothorax. IMPRESSION: Cardiomegaly and mild pulmonary edema. ACT 112: Negative or not required by law. Electronically signed by: Salvatore Delaney M.D. 11/19/2023 9:36 AM
[2023-11-19] MEDS ORDERED: GADOBUTROL 10ML VIAL IV ONE (09:54)
--- NOTE | 2023-11-19 10:04 | Electrocardiogram Report ---
Test Reason : Blood Pressure : / mmHG Vent. Rate : 073 BPM Atrial Rate : 073 BPM P-R Int : 196 ms QRS Dur : 150 ms QT Int : 442 ms P-R-T Axes : 020 -25 -01 degrees QTc Int : 486 ms Normal sinus rhythm Right bundle branch block Inferior infarct , age undetermined Abnormal ECG When compared with ECG of 15-MAY-2022 16:02, Inferior infarct is now Present T wave inversion no longer evident in Anterior leads QT has shortened Confirmed by Candido Tobar ([id number]) on 11/19/2023 10:03:45 AM Referred By: REFERRED SELF Confirmed By:Candido Tobar
[2023-11-19] MEDS: ATORVASTATIN 40 MG TAB PO SCH (10:35)
--- NOTE | 2023-11-19 11:22 | Magnetic Resonance Report ---
MR lower leg LT wo/w con CLINICAL HISTORY: chronic LLE wound, ro osteomyelitis TECHNIQUE: Multisequence, multiplanar MR images of the left lower leg were obtained prior to and fo llowing administration of gadolinium contrast. COMPARISON: None available at the time of this dictation. FINDINGS: Exam is limited by patient motion. A soft tissue ulcer seen in the lateral ankle. No drainable fluid collection or bony edema is seen. No joint effusion is seen. The soft tissues are unremarkable. IMPRESSION: No drainable fluid collection or bony edema to suggest osteomyelitis. ACT 112: Negative or not required by law. Electronically signed by: Salvatore Delaney M.D. 11/19/2023 11:21 AM
[2023-11-19] MEDS: CEFEPIME 2,000 MG in SYRINGE 0 ML IV SCH ×2 (12:13→21:25)
[2023-11-19] MEDS ORDERED: LANTUS PER UNIT CHARGE SQ ONE (12:30)
[2023-11-19 12:34] LABS: BUN Creatinine Ratio 13.6 (10-20); Calcium 8.3 mg/dl (8.6-10.3); Est GFR (African American) 125.3 ml/min; Est GFR (Non-African American) 108.1 ml/min; Potassium 3.6 mmol/L (3.5-5.1)
[2023-11-19] MEDS ORDERED: INSULIN HUMAN REGULAR PER UNIT 10 UNITS in SYRINGE 9.9 ML IV ONE (12:45)
[2023-11-19] MEDS ORDERED: LANTUS PER UNIT CHARGE SC ONE (12:45)
[2023-11-19] MEDS ORDERED: POTASSIUM CHLORIDE CRTAB 20 MEQ TABCR PO STA (12:54)
--- NOTE | 2023-11-19 13:51 | Pharmacy Report ---
Pharmacy Glycemic Short Note 2 - Date of Service November 19, 2023 - Glycemic Short BSG Results (Last 24 hours): 11/18/23 11/18/23 11/19/23 23:21 23:34 01:48 Glucose 417 H* POC Glucose 411 H* 396 H* 11/19/23 11/19/23 11/19/23 02:28 03:38 05:51 Glucose 392 H* POC Glucose 352 H* 300 H 11/19/23 11/19/23 11/19/23 06:25 08:47 10:38 Glucose 294 H POC Glucose 243 H 259 H 11/19/23 11/19/23 11:57 12:01 Glucose 334 H* POC Glucose 302 H* OUTPATIENT ANTIDIABETIC REGIMEN: * NPH 18 units SC BID + glipizide 5 mg PO daily (SEE BELOW) * Reported non-compliance with medications due to affordability HbA1c: 11.7% (11/19/23) ASSESSMENT: * ILEANA is a 43 year old male who presented to ED w/ complaints of n&V and chest/abdominal pain x 1 day * Initial labs suggestive of mild DKA w/ anion gap of 23, serum bicarbonate 20 mmol/L, VBG pH 7.34 * Decision was made last evening to defer insulin infusion and manage with SC basal/bolus insulin * Pharmacy consulted for glycemic management this morning - discussed with hospitalist and will continue to manage with SC for now since anion gap is now closed w/ serum bicarbonate of 25 mmol/L and VBG pH of 7.39. * Hyperglycemic at lunch, but this is likely explained by AM insulin not being given until 1054. Will give one-time IV insulin bolus and additional basal. * Patient reports non-compliance with home medications, which provides context for elevated HbA1c. Given basal deficiency, will load with full weight-based, stress 2.5 Lantus dosing of 40 units today w/ aggressive Novolog. * LR infusing @100 mL/hr PLAN FOR INPATIENT GLYCEMIC CONTROL: * Hold outpatient oral diabetes medications * Basal insulin * Lantus 20 units SQ x 1 this AM + 20 units SC x 1 this afternoon * Reassess in AM * Bolus insulin * NovoLog per scale ACHS or Q6hrs while NPO * Goal Range: Low 110 mg/dL - High 140 mg/dL * Correction Factor: 15 mg/dL/unit * Nutritional / Prandial insulin per carb ratio of 1 unit per 5 grams CHO consumed * 00,04 checks with same parameters
[2023-11-19] MEDS ORDERED: Heparin IV Adult Wt-Based Standard w/ INITIAL Bolus Protocol IV STA (14:20)
[2023-11-19] MEDS ORDERED: INSULIN ASPART PER UNIT CHARGE SC STA (14:29)
[2023-11-19] MEDS ORDERED: HEPARIN SOD (PORCINE) 1000 UNIT/ML IV ONE (14:35)
[2023-11-19] MEDS: HEPARIN SODIUM/DEXTROSE 25,000 UNITS/500 ML BAG IV SCH (15:31)
[2023-11-19 15:41] LABS: Basophils # (auto) 0.04 K/uL (0.00-0.20); Basophils % (auto) 0.5 %; Eosinophils # (auto) 0.03 K/uL (0.00-0.50); Eosinophils % (auto) 0.4 %; Hematocrit (blood only) 41.1 % (42.0-52.0); Hemoglobin 14.3 g/dl (14.0-18.0); Immature Granulocytes # (auto) 0.04 K/uL (0.01-0.20); Immature Granulocytes % (auto) 0.5 %; Lymphocytes # (auto) 1.35 K/uL (1.20-3.40); Lymphocytes % (auto) 15.8 %; Mean Corpuscular Hemoglobin 29.3 pg (25.0-34.0); Mean Corpuscular Hgb Conc 34.8 g/dL (32.0-36.0); Mean Corpuscular Volume 84.2 fL (80.0-100.0); Mean Platelet Volume 11.2 fL (9.4-12.4); Monocytes # (auto) 0.74 K/uL (0.11-0.59); Monocytes % (auto) 8.6 %; Neutrophils # (auto) 6.37 K/uL (1.40-6.50); Neutrophils % (auto) 74.2 %; Platelet Count 175 K/uL (130-400); RDW Coefficient of Variation 12.9 % (11.5-14.5); RDW Standard Deviation 39.3 fL (36.4-46.3); Red Blood Count 4.88 M/uL (4.70-6.10); White Blood Count 8.57 K/ul (4.8-10.8)
--- NOTE | 2023-11-19 15:47 | Communication Note ---
Date of Service: November 19, 2023 Doppler ultrasound of lower extremities reviewed: There is a mobile thrombus in the left popliteus muscle that migrated during the course of the exam. Following this migration, no deep venous thrombus is seen. Nonhealing ulcer is again noted in the ankle. Patient seen and examined at the bedside Not in distress, comfortable On room air Medically stable States he feels improved compared to earlier this morning Denies shortness of breath, chest pain, place, dizziness No signs of bleeding States he tolerated Xarelto well in the past, no adverse reactions, bleeding It was stopped as he was told that he has already completed the required therapeutic course Discussed results of Doppler ultrasound lower extremities Discussed plan of care including initiation of IV heparin drip and CT chest to rule out PE in 1 to 2 days, waiting for 1 to 2 days since patient already had IV contrast from MRI and CAT scan earlier this morning Start IV heparin drip with bolus Hematology consult for recurrent venous thromboembolism No other new symptoms Deon Pacheco MD
[2023-11-19 16:07] LABS: INR 0.9 (0.9-1.1); Partial Thromboplastin Ratio 0.9; Partial Thromboplastin Time 25 Seconds (21-31); Prothrombin Time 10.1 Seconds (9.0-12.0)
[2023-11-19] MEDS ORDERED: LANTUS PER UNIT CHARGE SQ SCH ×2 (21:00)
[2023-11-19] MEDS: DOXYCYCLINE HYCLATE 100 MG CAP PO SCH (21:09)
[2023-11-19] MEDS: LOSARTAN POTASSIUM 25 MG TAB PO SCH (21:09)
[2023-11-19 21:28] LABS: ANTI-Xa, UFH(UnfractionatedHep 0.47 IU/ml (0.3-0.7)
[2023-11-19] MEDS: ACETAMINOPHEN 325 MG TAB PO PRN (22:41)
[2023-11-20] MEDS ORDERED: MELATONIN 3 MG TAB PO ONE (00:06)
[2023-11-20] MEDS: INSULIN ASPART PER UNIT CHARGE SC SCH ×6 (00:13→20:59)
[2023-11-20 03:27] LABS: Basophils # (auto) 0.03 K/uL (0.00-0.20); Basophils % (auto) 0.4 %; Eosinophils # (auto) 0.09 K/uL (0.00-0.50); Eosinophils % (auto) 1.3 %; Hematocrit (blood only) 41.1 % (42.0-52.0); Hemoglobin 14.8 g/dl (14.0-18.0); Immature Granulocytes # (auto) 0.03 K/uL (0.01-0.20); Immature Granulocytes % (auto) 0.4 %; Lymphocytes # (auto) 1.82 K/uL (1.20-3.40); Lymphocytes % (auto) 25.6 %; Mean Corpuscular Hemoglobin 30.5 pg (25.0-34.0); Mean Corpuscular Volume 84.6 fL (80.0-100.0); Mean Platelet Volume 11.9 fL (9.4-12.4); Monocytes # (auto) 0.67 K/uL (0.11-0.59); Monocytes % (auto) 9.4 %; Neutrophils # (auto) 4.48 K/uL (1.40-6.50); Neutrophils % (auto) 62.9 %; Platelet Count 157 K/uL (130-400); RDW Standard Deviation 39.8 fL (36.4-46.3); Red Blood Count 4.86 M/uL (4.70-6.10); White Blood Count 7.12 K/ul (4.8-10.8)
[2023-11-20 03:41] LABS: BUN Creatinine Ratio 12.8 (10-20); Calcium 8.4 mg/dl (8.6-10.3); Creatinine Clr Calc Pharmacy 146.9 ml/min; Est GFR (African American) 127.2 ml/min; Est GFR (Non-African American) 109.8 ml/min; Potassium 3.1 mmol/L (3.5-5.1)
[2023-11-20 03:50] LABS: ANTI-Xa, UFH(UnfractionatedHep 0.35 IU/ml (0.3-0.7)
[2023-11-20] MEDS: CEFEPIME 2,000 MG in SYRINGE 0 ML IV SCH ×3 (05:36→20:57)
[2023-11-20] MEDS: PANTOprazole 40 MG TAB PO SCH (06:24)
[2023-11-20] MEDS: HEPARIN SODIUM/DEXTROSE 25,000 UNITS/500 ML BAG IV SCH ×2 (07:14→22:58)
[2023-11-20] MEDS: FLUTICASONE/VILANTEROL 100/25MCG 14 PUFFS/INHALER INH SCH (08:07)
[2023-11-20] MEDS: MAGNESIUM OXIDE 400 MG TAB PO SCH (08:08)
[2023-11-20] MEDS: DOXYCYCLINE HYCLATE 100 MG CAP PO SCH ×2 (08:08→20:58)
[2023-11-20] MEDS: FOLIC ACID 1 MG TAB PO SCH (08:08)
[2023-11-20] MEDS: GABAPENTIN 100 MG CAP PO SCH ×3 (08:08→20:58)
[2023-11-20] MEDS: METOPROLOL SUCC 50MG EXT REL TAB PO SCH (08:08)
[2023-11-20] MEDS: MULTIVITAMIN TAB PO SCH (08:09)
[2023-11-20] MEDS: ATORVASTATIN 40 MG TAB PO SCH (08:09)
[2023-11-20] MEDS: THIAMINE HCL 100 MG TAB PO SCH (08:09)
[2023-11-20] MEDS ORDERED: POTASSIUM CHLORIDE CRTAB 20 MEQ TABCR PO STA (08:32)
[2023-11-20] MEDS: LANTUS PER UNIT CHARGE SQ SCH ×2 (08:56→21:12)
[2023-11-20 10:19] LABS: ANTI-Xa, UFH(UnfractionatedHep 0.29 IU/ml (0.3-0.7)
--- NOTE | 2023-11-20 11:33 | Oncology Consultation ---
Date of Consultation November 20, 2023 Assessment & Plan (1) Deep vein thrombosis, lower left extremity: (2) Pulmonary emboli: Plan - Gentleman previously diagnosed with bilateral PE and right lower extremity DVT in April, for which she was on anticoagulation with Xarelto for close to 1 year. Now diagnosed with unprovoked left lower extremity DVT.Given unprovoked and recurrent VTE in this gentleman with complicated medical history, would recommend long-term anticoagulation. Previously tolerated Xarelto, coming discharged home on Xarelto. -Would recommend obtaining CTA chest to rule out PE as he complains of chest pain. -Will schedule him for follow-up with me in about 3 months to discuss possibly obtaining hypercoagulable workup. Patient agreed with above plan. Thank you for this consult. Hematology will sign off at this time to follow-up with patient on discharge. Please feel free to call if have any further questions. History of Present Illness Reason for Consultation: DVT Attending Physician: Deon Pacheco MD History of Present Illness 43-year-old gentleman with medical history significant for chronic systolic heart failure secondary to nonischemic cardiomyopathy, hypertension, hyperlipidemia, history of unprovoked right lower extremity DVT and bilateral PE diagnosed on 05/15/2022 for which he was on anticoagulation with Xarelto for about 1 year. He presented to the ER with abdominal pain, nausea, vomiting and was diagnosed with hyperglycemic crisis. CT abdomen and pelvis on 11/11/2023 revealed no acute abdominal process. CT left lower extremity obtained for left lower extremity swelling revealed soft tissue defect in the medial aspect of distal left leg with surrounding soft tissue edema. Lower extremity ultrasound on 11/19/2023 revealed left lower extremity DVT. He was placed on therapeutic unfractionated heparin which he remains on at this time. Complains of chest pain/pressure. States that he previously tolerated Xarelto and was discontinued based on recommendations from his inspector chief denies any abnormal bleeding or bruising. Denies family history of VTE and denies hypercoagulable workup. Allergies Allergy/AdvReac Type Severity Reaction Status Date / Time Sulfa (Sulfonamide Allergy Intermediate ITCHY/HOT Verified 09/19/22 13:25 Antibiotics) morphine AdvReac Intermediate Nausea Verified 09/19/22 13:25 Home Medications Medication Instructions Recorded Confirmed Type atorvastatin 40 mg tablet 40 mg PO QAM 06/23/21 11/19/23 History gabapentin 100 mg capsule 100 mg PO TID 06/23/21 11/19/23 History glipizide 5 mg tablet, extended 5 mg PO QAM 06/23/21 11/19/23 History release 24 hr magnesium oxide 400 mg (241.3 mg 400 mg PO QAM #14 tabs 05/19/22 11/19/23 Rx magnesium) tablet thiamine HCl (vitamin B1) 50 mg 25 mg (1/2 x 50 mg) PO DAILY #15 05/19/22 11/19/23 Rx tablet tabs metoprolol succinate 100 mg 100 mg PO DAILY #30 tabs 09/19/22 11/19/23 Rx tablet,extended release 24 hr budesonide-formoterol HFA 80 2 puff inhalation BID 11/19/23 11/19/23 History mcg-4.5 mcg/actuation aerosol inhaler cyclobenzaprine 10 mg tablet 10 mg PO HS PRN Muscle Spasm 11/19/23 11/19/23 History hydrochlorothiazide 25 mg tablet 25 mg PO 1XD 11/19/23 11/19/23 History insulin NPH isoph U-100 human 100 18 unit subcut 2XD 11/19/23 11/19/23 History unit/mL subcutaneous suspension (Novolin N NPH U-100 Insulin isophane) losartan 25 mg tablet (Cozaar) 25 mg PO 1XD 11/19/23 11/19/23 History pantoprazole 40 mg tablet,delayed 40 mg PO DAILY 11/19/23 11/19/23 History release Patient History Medical History Right bundle branch block History of kidney stones Gastroparesis Open trimalleolar fracture (2020) Dislocation of ankle, right, open (2020) Vitamin D deficiency 8.9 in 06/2019 HLD (hyperlipidemia) TG 2049, TC 301 in 06/2019 T2DM (type 2 diabetes mellitus) HTN (hypertension) GERD (gastroesophageal reflux disease) Surgical History History of ankle surgery (2020) right ankle external fixator/I&D History of colonoscopy History of esophagogastroduodenoscopy (EGD) History of tooth extraction History of wisdom tooth extraction S/P knee surgery remove fluid off right knee History of heart surgery (1983) VSD- age 3---no issues since surgery, no inspector chief Family History Father Cardiac disorder Mother No problems noted. Aunt Cardiac disorder Other No family history of adverse response to anesthesia Denies family history of Ovarian cancer Prostate cancer Myocardial infarction Breast cancer Colorectal cancer Social History Smoking Status: Former smoker Age Started Using Tobacco: 16; Age Quit Using Tobacco: 26; packs per day: 0.5; Second Hand Exposure: No; Do You Dip or Chew Tobacco: No; Hx Alcohol Use: No Hx Substance Use: No Preferred Language: Nauruan Communication Ability: Effective Visual Impairment: No Limitations Hearing Ability: Normal President Required: No Beliefs That Will Affect Care: None marital status: Single Current Living Situation: Significant Other current occupational status: employed current occupation: [employer] How many Children do You have: 0 Feels Safe at Home: Yes Safety Concerns: Feels Safe At This Time Dental Care, Regularly: Yes Physical Activity Frequency: 3-4 Times per Week Assistive Devices: None Results & Data Vital Signs (Past 12 Hours) Vital Signs Temp Pulse Resp BP BP Pulse Ox O2 Del Method 11/20/23 11:32 36.7 C 68 18 137/75 96 Room Air 11/20/23 07:23 37.0 C 66 18 128/72 98 Room Air 11/20/23 03:26 36.4 C L 55 L 16 125/82 95 Room Air
--- NOTE | 2023-11-20 12:08 | Pharmacy Report ---
Pharmacy Glycemic Short Note 2 - Date of Service November 20, 2023 - Glycemic Short BSG Results (Last 24 hours): 11/19/23 11/19/23 11/19/23 11:57 12:01 14:46 Glucose 334 H* POC Glucose 302 H* 246 H 11/19/23 11/19/23 11/20/23 17:19 20:26 00:10 Glucose POC Glucose 263 H 225 H 159 H 11/20/23 11/20/23 11/20/23 02:39 05:33 08:16 Glucose 226 H POC Glucose 251 H 243 H 11/20/23 11:52 Glucose POC Glucose 221 H OUTPATIENT ANTIDIABETIC REGIMEN: * NPH 18 units SC BID * Glipizide 5 mg PO daily * Reported non-compliance with medications due to affordability * HbA1c: 11.7% (11/19/23) ASSESSMENT: 11/20: * Patient received 137 units of insulin yesterday. BSGs were: [phone] mg/dL. Anion gap remains closed based on AM blood work. * Given only slight improvement in fasting BSG today, 243 mg/dL, as well as receiving ~140 units of insulin yesterday without adequate glycemic control, will significantly increase basal regimen today. Plan is to base basal/bolus regimen as 50/50 split of yesterday's total daily dose. * Bolus regimen was tightened throughout the day yesterday. Will not make any adjustments to bolus regimen today given significant increase in basal dose. May require tightening tomorrow if postprandials remain uncontrolled. 11/19: * ILEANA is a 43 year old male who presented to ED w/ complaints of n&V and chest/abdominal pain x 1 day * Initial labs suggestive of mild DKA w/ anion gap of 23, serum bicarbonate 20 mmol/L, VBG pH 7.34 * Decision was made last evening to defer insulin infusion and manage with SC basal/bolus insulin * Pharmacy consulted for glycemic management this morning - discussed with hospitalist and will continue to manage with SC for now since anion gap is now closed w/ serum bicarbonate of 25 mmol/L and VBG pH of 7.39. * Hyperglycemic at lunch, but this is likely explained by AM insulin not being given until 1054. Will give one-time IV insulin bolus and additional basal. * Patient reports non-compliance with home medications, which provides context for elevated HbA1c. Given basal deficiency, will load with full weight-based, stress 2.5 Lantus dosing of 40 units today w/ aggressive Novolog. * LR infusing @100 mL/hr PLAN FOR INPATIENT GLYCEMIC CONTROL: * Hold outpatient oral diabetes medications * Basal insulin * Lantus 35 units SC BID * Bolus insulin * NovoLog per scale ACHS or Q6hrs while NPO * Goal Range: Low 110 mg/dL - High 140 mg/dL * Correction Factor: 12 mg/dL/unit * Nutritional / Prandial insulin per carb ratio of 1 unit per 3 grams CHO c onsumed
--- NOTE | 2023-11-20 13:26 | Hospitalist Progress Note ---
Date of Service November 20, 2023 Assessment & Plan (1) Hyperglycemic crisis in diabetes mellitus: Plan: DKA History DM 2 insulin requiring, suboptimal control as of recent hemoglobin A1c of 10 last month Multifactorial: Medical noncompliance secondary to financial constraints -- DKA closed -- transitioned to Lantus and ISS DM educator following LLE cellulitis/history of chronic wound contributory -- blood cultures pending -- continue Cefepime + Doxy -- ID consulted LLE DVT history unprovoked PE status post Xarelto -- heparin drip -- CT chest today -- supervisor spinning consulted chronic systolic heart failure secondary to nonischemic cardiomyopathy (EF 35 to 39%, TTE 2022) -- euvolemic hypertension, elevated secondary to illness hyperlipidemia on statin Rx GERD/gastroparesis as per records alcohol abuse as per records, patient denies recent EtOH intake and abuse issues past tobacco abuse DVT prophylaxis per Lovenox subcutaneous Full code Disposition anticipate d/c home when medically stable Admission and Anticipated Discharge Date Admission Date: November 19, 2023 Subjective ff up for DKA etc seen resting in bed, comfortable states he feels tired today no chest pain, dyspnea, palpitations, dizziness less pain over the Left lower leg no other new symptoms Review of Systems Review of Systems: all noted and negative except for above Physical Exam Physical Exam: General- oriented x 3, not in distress, speaks in sentences with no effort or accessory muscle use Eyes- anicteric Neck- no JVD Lungs- clear breath sounds bilaterally, no crackles/wheezing Heart- normal rate, regular rhythm; no murmurs Abdomen- normal bowel sounds, nondistended, soft, nontender Extremities- no pretibial edema, no calf tenderness LLE: wound- dressing in place, less surrounding erythema Neuro- alert, oriented x 3; no gross focal neurologic deficits Skin- warm & dry Results & Data Results & Data Vital Signs (Past 12 Hours) Vital Signs Temp Pulse Resp BP BP Pulse Ox O2 Del Method 11/20/23 11:32 36.7 C 68 18 137/75 96 Room Air 11/20/23 07:23 37.0 C 66 18 128/72 98 Room Air 11/20/23 03:26 36.4 C L 55 L 16 125/82 95 Room Air all noted and reviewed including below
[2023-11-20] MEDS ORDERED: OPTIRAY 320 125ml IV ONE (15:18)
--- NOTE | 2023-11-20 15:39 | CT Scan Report ---
CT angio chest PE protocol CT DOSE: 742.81 mGy.cm HISTORY: 43 years-old Male with chest pain, r/o PE. Acute chest pain TECHNIQUE: Multiple CTA images of the chest were obtained after the intravenous administration of 118 ml Optiray. Coronal and sagittal MIPS were obtained from the axial data set and were submitted for review. All measurements were obtained according to NASCET criteria. A dose lowering technique was u tilized adhering to the principles of ALARA. COMPARISON: 05/15/2022 FINDINGS: CTA: Mild cardiomegaly. There is no pericardial effusion. Unremarkable thoracic aorta and imaged great ves sels. No acute pulmonary emboli. There is minimal linear nonocclusive fibrin stranding within the rig ht lower lobe on image 73 series 4 related to chronic pulmonary emboli. CT CHEST: No thyroid nodule. Sternotomy wires are noted. Subcentimeter periesophageal lymph nodes. Mild nonspec ific distal esophageal wall thickening. There is no pneumothorax, pleural effusion, airspace consolid ation or pulmonary edema. Minimal subsegmental bibasilar atelectasis. There are no suspicious pulmona ry nodules or masses identified. Hepatomegaly with hepatic steatosis. No acute fracture. IMPRESSION: 1. No acute pulmonary emboli identified. 2. Minimal residual nonocclusive chronic pulmonary emboli within the right lower lobe. ACT 112: Negative or not required by law. The above report was generated using voice recognition software. It may contain grammatical, syntax o r spelling errors. Electronically signed by: Stuart Keith M.D. 11/20/2023 3:36 PM
[2023-11-20] MEDS: ACETAMINOPHEN 325 MG TAB PO PRN ×2 (16:34→21:12)
[2023-11-20] MEDS ORDERED: MAGNESIUM HYDROXIDE SUSP 30 ML UDC PO PRN (17:35)
[2023-11-20 17:36] LABS: ANTI-Xa, UFH(UnfractionatedHep 0.27 IU/ml (0.3-0.7)
[2023-11-20] MEDS ORDERED: SODIUM CHLORIDE 0.9% 500 ML IV SCH (17:45)
[2023-11-20] MEDS: POLYETHYLENE (MIRALAX) 17 GM PACK PO SCH (17:58)
[2023-11-20] MEDS: LOSARTAN POTASSIUM 25 MG TAB PO SCH (20:58)
[2023-11-20] MEDS: MELATONIN 3 MG TAB PO PRN (21:12)
[2023-11-21 01:20] LABS: ANTI-Xa, UFH(UnfractionatedHep 0.32 IU/ml (0.3-0.7)
[2023-11-21] MEDS: CEFEPIME 2,000 MG in SYRINGE 0 ML IV SCH ×2 (04:59→12:49)
[2023-11-21] MEDS: PANTOprazole 40 MG TAB PO SCH (05:48)
[2023-11-21 06:39] LABS: Basophils # (auto) 0.04 K/uL (0.00-0.20); Basophils % (auto) 0.7 %; Eosinophils % (auto) 3.7 %; Hematocrit (blood only) 41.8 % (42.0-52.0); Hemoglobin 14.6 g/dl (14.0-18.0); Immature Granulocytes # (auto) 0.05 K/uL (0.01-0.20); Immature Granulocytes % (auto) 0.9 %; Lymphocytes # (auto) 1.68 K/uL (1.20-3.40); Mean Corpuscular Hemoglobin 29.6 pg (25.0-34.0); Mean Corpuscular Hgb Conc 34.9 g/dL (32.0-36.0); Mean Corpuscular Volume 84.8 fL (80.0-100.0); Mean Platelet Volume 11.3 fL (9.4-12.4); Monocytes # (auto) 0.54 K/uL (0.11-0.59); Neutrophils # (auto) 2.91 K/uL (1.40-6.50); Neutrophils % (auto) 53.7 %; Platelet Count 146 K/uL (130-400); RDW Coefficient of Variation 12.9 % (11.5-14.5); RDW Standard Deviation 39.5 fL (36.4-46.3); Red Blood Count 4.93 M/uL (4.70-6.10); White Blood Count 5.42 K/ul (4.8-10.8)
[2023-11-21 07:00] LABS: BUN Creatinine Ratio 11.8 (10-20); Calcium 8.3 mg/dl (8.6-10.3); Creatinine Clr Calc Pharmacy 170.3 ml/min; Est GFR (African American) 134.6 ml/min; Est GFR (Non-African American) 116.2 ml/min; Potassium 3.3 mmol/L (3.5-5.1)
[2023-11-21] MEDS: ATORVASTATIN 40 MG TAB PO SCH (08:05)
[2023-11-21] MEDS: THIAMINE HCL 100 MG TAB PO SCH (08:05)
[2023-11-21] MEDS: METOPROLOL SUCC 50MG EXT REL TAB PO SCH (08:05)
[2023-11-21] MEDS: FOLIC ACID 1 MG TAB PO SCH (08:05)
[2023-11-21] MEDS: GABAPENTIN 100 MG CAP PO SCH ×3 (08:05→20:14)
[2023-11-21] MEDS: MULTIVITAMIN TAB PO SCH (08:05)
[2023-11-21] MEDS: MAGNESIUM OXIDE 400 MG TAB PO SCH (08:05)
[2023-11-21] MEDS: DOXYCYCLINE HYCLATE 100 MG CAP PO SCH (08:06)
[2023-11-21] MEDS: POLYETHYLENE (MIRALAX) 17 GM PACK PO SCH (08:15)
[2023-11-21] MEDS: ACETAMINOPHEN 325 MG TAB PO PRN (08:15)
[2023-11-21 08:21] LABS: ANTI-Xa, UFH(UnfractionatedHep 0.37 IU/ml (0.3-0.7)
[2023-11-21] MEDS: INSULIN ASPART PER UNIT CHARGE SC SCH ×4 (08:53→20:20)
[2023-11-21] MEDS: LANTUS PER UNIT CHARGE SQ SCH ×2 (08:54→20:20)
[2023-11-21] MEDS: ENOXAPARIN 100 MG/1ML SYR SQ SCH ×2 (09:46→20:22)
[2023-11-21] MEDS: FLUTICASONE/VILANTEROL 100/25MCG 14 PUFFS/INHALER INH SCH (10:04)
[2023-11-21] MEDS: ADVANCED PROBIOTIC 1250 MG CAPSULE PO SCH (10:42)
--- NOTE | 2023-11-21 11:48 | Hospitalist Progress Note ---
Date of Service November 21, 2023 Assessment & Plan (1) Hyperglycemic crisis in diabetes mellitus: Plan: DKA History DM 2 insulin requiring, suboptimal control as of recent hemoglobin A1c of 10 last month Multifactorial: Medical noncompliance secondary to financial constraints -- DKA closed -- transitioned to Lantus and ISS DM educator following recommend Insulin 70/30 from [facility] upon discharge due to financial constraints please refer to DM educator notes for full recommendations LLE cellulitis/history of chronic wound -- surrounding erythema, tenderness improving -- blood cultures : negative -- wound cultures: MSSA -- continue Cefepime + Doxy Day 3 -- ID consulted, awaiting recommendations -- science writer consulted LLE DVT history unprovoked PE status post Xarelto -- heparin drip -- CT chest: 1. No acute pulmonary emboli identified. 2. Minimal residual nonocclusive chronic pulmonary emboli within the right lower lobe. -- satellite dish technician consulted, recommend residential anticoagulation ff up with Hematology clinic for hypercoagulable work up -- transition from Heparin drip to coumadin + lovenox bridge today INR daily (coumadin selected for residential anticoagulation given patient's financial situation/absence of health insurance presently) chronic systolic heart failure secondary to nonischemic cardiomyopathy (EF 35 to 39%, TTE 2022) -- euvolemic hypertension -- if BP still not at goal, increase Losartan to 50mg po daily hyperlipidemia on statin Rx GERD/gastroparesis as per records alcohol abuse as per records, patient denies recent EtOH intake and abuse issues past tobacco abuse DVT prophylaxis per Lovenox subcutaneous Full code Disposition anticipate d/c home when medically stable will need close outpatient ff up case management requested to assist patient with application for Medical Assistance program Admission and Anticipated Discharge Date Admission Date: November 19, 2023 Subjective follow up for DKA, left lower leg infection, etc seen resting in bed, comfortable states he still has some dizziness, chills, sweats at night otherwise feels ok denies left lower leg pain no chest pain, palpitations, dizziness no other new symptoms Review of Systems Review of Systems: all noted and negative except for above Physical Exam Physical Exam: General- oriented x 3, not in distress, speaks in sentences with no effort or accessory muscle use Eyes- anicteric Neck- no JVD Lungs- clear BS BL Heart- normal rate, regular rhythm; no murmurs Abdomen- normal bowel sounds, nondistended, soft, nontender Extremities- left lower extremity: wound in the anterior harvey: yellow discharge, moderate surrounding erythema, mild edema Neuro- alert, oriented x 3; no gross focal neurologic deficits Skin- warm & dry Results & Data Results & Data Vital Signs (Past 12 Hours) Vital Signs Temp Pulse Pulse Resp BP BP Pulse Ox 11/21/23 11:07 36.7 C 69 16 145/93 H 97 11/21/23 07:27 36.4 C L 62 16 141/94 H 96 11/21/23 05:39 45 L 11/21/23 02:10 36.5 C 57 L 18 137/77 96 O2 Del Method 11/21/23 11:07 Room Air 11/21/23 07:27 Room Air 11/21/23 05:39 11/21/23 02:10 Room Air all noted and reviewed including below
--- NOTE | 2023-11-21 14:10 | Infectious Disease Consult ---
Date of Service November 21, 2023 Telehealth Information I performed this visit using a real-time telehealth connection between my location and the patients location ([facility]). After connecting through interactive tele-video, patient was identified by name and date of and/or wristband check.Patient (or authorized healthcare rental representative) was informed that this was a telemedicine visit and it was being conducted confidentially over secure lines. My office door was closed and no one else was present in the room with me.Patient (or authorized healthcare rental representative) provided consent to proceed with the visit, expressed an understanding of privacy and security of the telemedicine visit, and gave permission to have a hospital rental representative in the room in order to assist with the visit and to conduct portions of the visit, as needed. I informed the patient (or authorized healthcare rental representative) that I reviewed their record and presented the opportunity for them to ask any questions regarding the visit today. The patient agreed to participate. Assessment & Plan (1) T2DM (type 2 diabetes mellitus): (2) Chronic wound: Plan He has a 2 year history of chronic wound of his lower extremity that acutely worsened over past two weeks. Superficial culture is growing MSSA. Would treat for 2 weeks with augmentin 875 BID. He should have close follow up with his PCP as an outpatient. If he worsens outpatient despite augmentin would recommend adding cipro 750 BID for pseudomonal coverage. Recommend consultation with or follow up with dermatology/general surgery for evaluation for biopsy, debridement, deep tissue cultures. Non infectious cause of chronic wound such as pyoderma gangrenosum are on the differential. Would also recommend sending AFB culture of the wound as chronic mycobacterial infections can have this appearance. ATTESTATION I saw and evaluated the patient today. I have reviewed thetrainee note and agree. If applicable, my additional thoughts/findingsor any changes to the planare listed above/below. Superficial cultures are unreliable. Would prefer deeper cultures (and perhaps a biopsy - PG?) but we can treat what has already grown and assess his response. Low threshold to expand coverage to include Pseudomonas. History of Present Illness History of Present Illness Reason for consult: infected chronic wound, L lower leg Patient with PMHx CHF, DM2, gastroparesis, chronic LLE wound, alcohol abuse. Patient has had a chronic wound of his LLE that has been present for about 2 years. Lately it is having purulent drainage. The day of admission pt had abdominal pain, nausea, and vomiting. He was started on ceftriaxone. He has since been transitioned to cefepime and doxycycline. Superficial wound cultures are growing MSSA. Blood cultures have had no growth. CT of the lower extremity showed soft tissue changes with no osseous abnormalities. MRI was performed showing no osteo or drainable collection. Allergies Allergy/AdvReac Type Severity Reaction Status Date / Time Sulfa (Sulfonamide Allergy Intermediate ITCHY/HOT Verified 09/19/22 13:25 Antibiotics) metformin AdvReac Intermediate Diarrhea Verified 11/21/23 14:34 morphine AdvReac Intermediate Nausea Verified 09/19/22 13:25 semaglutide [From Ozempic] AdvReac Intermediate Hallucinati Verified 11/21/23 14:34 ng Home Medications Medication Instructions Recorded Confirmed Type atorvastatin 40 mg tablet 40 mg PO QAM 06/23/21 11/19/23 History gabapentin 100 mg capsule 100 mg PO TID 06/23/21 11/19/23 History glipizide 5 mg tablet, extended 5 mg PO QAM 06/23/21 11/19/23 History release 24 hr magnesium oxide 400 mg (241.3 mg 400 mg PO QAM #14 tabs 05/19/22 11/19/23 Rx magnesium) tablet thiamine HCl (vitamin B1) 50 mg 25 mg (1/2 x 50 mg) PO DAILY #15 05/19/22 11/19/23 Rx tablet tabs metoprolol succinate 100 mg 100 mg PO DAILY #30 tabs 09/19/22 11/19/23 Rx tablet,extended release 24 hr budesonide-formoterol HFA 80 2 puff inhalation BID 11/19/23 11/19/23 History mcg-4.5 mcg/actuation aerosol inhaler cyclobenzaprine 10 mg tablet 10 mg PO HS PRN Muscle Spasm 11/19/23 11/19/23 History hydrochlorothiazide 25 mg tablet 25 mg PO 1XD 11/19/23 11/19/23 History insulin NPH isoph U-100 human 100 18 unit subcut 2XD 11/19/23 11/19/23 History unit/mL subcutaneous suspension (Novolin N NPH U-100 Insulin isophane) losartan 25 mg tablet (Cozaar) 25 mg PO 1XD 11/19/23 11/19/23 History pantoprazole 40 mg tablet,delayed 40 mg PO DAILY 11/19/23 11/19/23 History release Patient History Medical History Right bundle branch block History of kidney stones Gastroparesis Open trimalleolar fracture (2020) Dislocation of ankle, right, open (2020) Vitamin D deficiency 8.9 in 06/2019 HLD (hyperlipidemia) TG 2049, TC 301 in 06/2019 T2DM (type 2 diabetes mellitus) HTN (hypertension) GERD (gastroesophageal reflux disease) Surgical History History of ankle surgery (2020) right ankle external fixator/I&D History of colonoscopy History of esophagogastroduodenoscopy (EGD) History of tooth extraction History of wisdom tooth extraction S/P knee surgery remove fluid off right knee History of heart surgery (1983) VSD- age 3---no issues since surgery, no flotation tender Family History Father Cardiac disorder Mother No problems noted. 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 Physical Exam PE limited by telemed visit. Photo of wound reviewed. Results & Data Vital Signs (Past 12 Hours) Vital Signs Temp Pulse Pulse Resp BP BP Pulse Ox 11/21/23 11:07 36.7 C 69 16 145/93 H 97 11/21/23 07:27 36.4 C L 62 16 141/94 H 96 11/21/23 05:39 45 L 11/21/23 02:10 36.5 C 57 L 18 137/77 96 O2 Del Method 11/21/23 11:07 Room Air 11/21/23 07:27 Room Air 11/21/23 05:39 11/21/23 02:10 Room Air Laboratory Results Microbiology 11/19/23 02:29 Leg,Left Gram Stain - Final 11/19/23 02:29 Leg,Left Wound Culture - Final Staphylococcus aureus 11/19/23 02:28 Blood Aerobic Blood Culture - Preliminary No growth in Aerobic bottle after 48 hours. 11/19/23 02:28 Blood Anaerobic Blood Culture - Final 11/18/23 23:34 Blood Aerobic Blood Culture - Preliminary No growth in Aerobic bottle after 48 hours. 11/18/23 23:34 Blood Anaerobic Blood Culture - Preliminary No growth in Anaerobic bottle after 48 hours. Laboratory Results - last 72 hr 11/18/23 11/18/23 11/18/23 23:21 23:34 23:37 WBC 11.63 H RBC 5.52 Hgb 16.6 Hct 46.4 MCV 84.1 MCH 30.1 MCHC 35.8 RDW Std Deviation 38.4 RDW Coeff of Trevon 12.7 Plt Count 188 MPV 11.8 Immature Gran % (Auto) 1.2 Neut % (Auto) 87.4 Lymph % (Auto) 8.6 Luce % (Auto) 2.2 Eos % (Auto) 0.2 Baso % (Auto) 0.4 Neut # (Auto) 10.16 H Lymph # (Auto) 1.00 L Luce # (Auto) 0.26 Eos # (Auto) 0.02 Baso # (Auto) 0.05 Immature Gran # (Auto) 0.14 Absolute Nucleated RBC Nucleated RBC % (auto) Neutrophils % (Manual) Band Neutrophils % Lymphocytes % (Manual) Prolymphocyte % Reactive Lymphs % (Man) Monocytes % (Manual) Eosinophils % (Manual) Basophils % (Manual) Metamyelocytes % (Man) Myelocytes % (Man) Promyelocytes % (Man) Blast Cells % (Manual) Plasma Cell % (Manual) Other Cells % Nucleated RBC % Neutrophils # (Manual) Band Neutrophils # Total Absolute Neuts Lymphocytes # (Manual) Prolymphocyte # Reactive Lymphs # Total Abs Lymphocytes Monocytes # (Manual) Eosinophils # (Manual) Basophils # (Manual) Metamyelocytes # (Man) Myelocytes # (Manual) Promyelocytes # (Man) Blast Cells # (Man) Plasma Cell # (Manual) Other Cells # Nucleated RBCs # (Man) Hypersegmented Neuts Hyposegmented Neuts Hypogranular Neuts Large Granular Lymphs # Lrg Granular Lymphs Hairy Cells Smudge Cells Toxic Granulation Toxic Vacuolation Dohle Bodies Sebas Rods Platelet Estimate Hypogranular Platelets Giant Platelets Platelet Satelliting RBC Morphology Polychromasia Hypochromasia Poikilocytosis Basophilic Stippling Anisocytosis Microcytosis Macrocytosis Spherocytes Pappenheimer Bodies Sickle Cells Target Cells Tear Drop Cells Ovalocytes Stomatocytes [place] Bodies Echinocytes Acanthocytes (Spur) Rouleaux RBC Agglutinates Schistocytes ESR Sezary Cell PT INR APTT PTT Ratio Heparin Anti-Xa, Unfract VBG pH 7.34 L VBG pCO2 41 VBG pO2 51 VBG HCO3 22 VBG O2 Saturation 83.4 VBG Base Excess -3.5 Sodium 135 L Potassium 3.9 Chloride 92 L Carbon Dioxide 20 L Anion Gap 23 H BUN 14 Creatinine 0.97 Est Cr Clr Drug Dosing 116.0 Est GFR ( Amer) 109.6 Est GFR (Non-Af Amer) 94.6 BUN/Creatinine Ratio 14.4 Glucose 417 H* POC Glucose 411 H* Estimat Average Glucose Hemoglobin A1c Lactate Calcium 9.7 Magnesium 1.9 Total Bilirubin 0.8 AST 16 ALT 19 Alkaline Phosphatase 118 H Troponin I High Sens 5.6 C-Reactive Protein B-Natriuretic Peptide 32 Total Protein 7.6 Albumin 4.8 Globulin 2.8 Albumin/Globulin Ratio 1.7 Lipase 73 Procalcitonin Urine Color Urine Appearance Urine pH Ur Specific [place] Urine Protein Urine Glucose (UA) Urine Ketones Urine Blood Urine Nitrite Urine Bilirubin Urine Urobilinogen Ur Leukocyte Esterase Urine RBC Urine WBC Ur Epithelial Cells Urine Bacteria Nasal Screen MRSA (PCR) Ethyl Alcohol mg/dL Blood Parasites ID 11/19/23 11/19/23 11/19/23 01:48 02:28 02:41 WBC Cancelled RBC Cancelled Hgb Cancelled Hct Cancelled MCV Cancelled MCH Cancelled MCHC Cancelled RDW Std Deviation Cancelled RDW Coeff of Trevon Cancelled Plt Count Cancelled MPV Cancelled Immature Gran % (Auto) Cancelled Neut % (Auto) Cancelled Lymph % (Auto) Cancelled Luce % (Auto) Cancelled Eos % (Auto) Cancelled Baso % (Auto) Cancelled Neut # (Auto) Cancelled Lymph # (Auto) Cancelled Luce # (Auto) Cancelled Eos # (Auto) Cancelled Baso # (Auto) Cancelled Immature Gran # (Auto) Cancelled Absolute Nucleated RBC Cancelled Nucleated RBC % (auto) Cancelled Neutrophils % (Manual) Cancelled Band Neutrophils % Cancelled Lymphocytes % (Manual) Cancelled Prolymphocyte % Cancelled Reactive Lymphs % (Man) Cancelled Monocytes % (Manual) Cancelled Eosinophils % (Manual) Cancelled Basophils % (Manual) Cancelled Metamyelocytes % (Man) Cancelled Myelocytes % (Man) Cancelled Promyelocytes % (Man) Cancelled Blast Cells % (Manual) Cancelled Plasma Cell % (Manual) Cancelled Other Cells % Cancelled Nucleated RBC % Cancelled Neutrophils # (Manual) Cancelled Band Neutrophils # Cancelled Total Absolute Neuts Cancelled Lymphocytes # (Manual) Cancelled Prolymphocyte # Cancelled Reactive Lymphs # Cancelled Total Abs Lymphocytes Cancelled Monocytes # (Manual) Cancelled Eosinophils # (Manual) Cancelled Basophils # (Manual) Cancelled Metamyelocytes # (Man) Cancelled Myelocytes # (Manual) Cancelled Promyelocytes # (Man) Cancelled Blast Cells # (Man) Cancelled Plasma Cell # (Manual) Cancelled Other Cells # Cancelled Nucleated RBCs # (Man) Cancelled Hypersegmented Neuts Cancelled Hyposegmented Neuts Cancelled Hypogranular Neuts Cancelled Large Granular Lymphs Cancelled # Lrg Granular Lymphs Cancelled Hairy Cells Cancelled Smudge Cells Cancelled Toxic Granulation Cancelled Toxic Vacuolation Cancelled Dohle Bodies Cancelled Sebas Rods Cancelled Platelet Estimate Cancelled Hypogranular Platelets Cancelled Giant Platelets Cancelled Platelet Satelliting Cancelled RBC Morphology Cancelled Polychromasia Cancelled Hypochromasia Cancelled Poikilocytosis Cancelled Basophilic Stippling Cancelled Anisocytosis Cancelled Microcytosis Cancelled Macrocytosis Cancelled Spherocytes Cancelled Pappenheimer Bodies Cancelled Sickle Cells Cancelled Target Cells Cancelled Tear Drop Cells Cancelled Ovalocytes Cancelled Stomatocytes Cancelled [place] Bodies Cancelled Echinocytes Cancelled Acanthocytes (Spur) Cancelled Rouleaux Cancelled RBC Agglutinates Cancelled Schistocytes Cancelled ESR Sezary Cell Cancelled PT INR APTT PTT Ratio Heparin Anti-Xa, Unfract VBG pH 7.29 L VBG pCO2 42 VBG pO2 46 VBG HCO3 20 VBG O2 Saturation 78.0 VBG Base Excess -6.1 Sodium 135 L Potassium 3.9 Chloride 96 L Carbon Dioxide 19 L Anion Gap 20 H BUN 14 Creatinine 0.94 Est Cr Clr Drug Dosing 119.7 Est GFR ( Amer) 113.8 Est GFR (Non-Af Amer) 98.2 BUN/Creatinine Ratio 14.9 Glucose 392 H* POC Glucose 396 H* Estimat Average Glucose Hemoglobin A1c Lactate 5.6 H* Calcium 9.0 Magnesium Total Bilirubin AST ALT Alkaline Phosphatase Troponin I High Sens C-Reactive Protein B-Natriuretic Peptide Total Protein Albumin Globulin Albumin/Globulin Ratio Lipase Procalcitonin < 0.05 Urine Color Urine Appearance Urine pH Ur Specific [place] Urine Protein Urine Glucose (UA) Urine Ketones Urine Blood Urine Nitrite Urine Bilirubin Urine Urobilinogen Ur Leukocyte Esterase Urine RBC Urine WBC Ur Epithelial Cells Urine Bacteria Nasal Screen MRSA (PCR) Ethyl Alcohol mg/dL < 10.0 Blood Parasites ID Cancelled 11/19/23 11/19/23 11/19/23 03:38 05:51 06:25 WBC 8.97 RBC 5.18 Hgb 15.4 Hct 43.7 MCV 84.4 MCH 29.7 MCHC 35.2 RDW Std Deviation 39.1 RDW Coeff of Trevon 12.8 Plt Count 172 MPV 11.2 Immature Gran % (Auto) 1.9 Neut % (Auto) 87.1 Lymph % (Auto) 7.2 Luce % (Auto) 3.5 Eos % (Auto) 0.0 Baso % (Auto) 0.3 Neut # (Auto) 7.81 H Lymph # (Auto) 0.65 L Luce # (Auto) 0.31 Eos # (Auto) 0.00 Baso # (Auto) 0.03 Immature Gran # (Auto) 0.17 Absolute Nucleated RBC Nucleated RBC % (auto) Neutrophils % (Manual) Band Neutrophils % Lymphocytes % (Manual) Prolymphocyte % Reactive Lymphs % (Man) Monocytes % (Manual) Eosinophils % (Manual) Basophils % (Manual) Metamyelocytes % (Man) Myelocytes % (Man) Promyelocytes % (Man) Blast Cells % (Manual) Plasma Cell % (Manual) Other Cells % Nucleated RBC % Neutrophils # (Manual) Band Neutrophils # Total Absolute Neuts Lymphocytes # (Manual) Prolymphocyte # Reactive Lymphs # Total Abs Lymphocytes Monocytes # (Manual) Eosinophils # (Manual) Basophils # (Manual) Metamyelocytes # (Man) Myelocytes # (Manual) Promyelocytes # (Man) Blast Cells # (Man) Plasma Cell # (Manual) Other Cells # Nucleated RBCs # (Man) Hypersegmented Neuts Hyposegmented Neuts Hypogranular Neuts Large Granular Lymphs # Lrg Granular Lymphs Hairy Cells Smudge Cells Toxic Granulation Toxic Vacuolation Dohle Bodies Sebas Rods Platelet Estimate Hypogranular Platelets Giant Platelets Platelet Satelliting RBC Morphology Polychromasia Hypochromasia Poikilocytosis Basophilic Stippling Anisocytosis Microcytosis Macrocytosis Spherocytes Pappenheimer Bodies Sickle Cells Target Cells Tear Drop Cells Ovalocytes Stomatocytes [place] Bodies Echinocytes Acanthocytes (Spur) Rouleaux RBC Agglutinates Schistocytes ESR 24 H Sezary Cell PT INR APTT PTT Ratio Heparin Anti-Xa, Unfract VBG pH VBG pCO2 VBG pO2 VBG HCO3 VBG O2 Saturation VBG Base Excess Sodium 134 L Potassium 3.9 Chloride 98 Carbon Dioxide 22 Anion Gap 14 H BUN 12 Creatinine 0.78 Est Cr Clr Drug Dosing 144.3 Est GFR ( Amer) 127.2 Est GFR (Non-Af Amer) 109.8 BUN/Creatinine Ratio 15.4 Glucose 294 H POC Glucose 352 H* 300 H Estimat Average Glucose 289 Hemoglobin A1c 11.7 H Lactate Calcium 8.7 Magnesium Total Bilirubin AST ALT Alkaline Phosphatase Troponin I High Sens C-Reactive Protein 0.72 H B-Natriuretic Peptide Total Protein Albumin Globulin Albumin/Globulin Ratio Lipase Procalcitonin Urine Color Urine Appearance Urine pH Ur Specific [place] Urine Protein Urine Glucose (UA) Urine Ketones Urine Blood Urine Nitrite Urine Bilirubin Urine Urobilinogen Ur Leukocyte Esterase Urine RBC Urine WBC Ur Epithelial Cells Urine Bacteria Nasal Screen MRSA (PCR) Ethyl Alcohol mg/dL Blood Parasites ID 11/19/23 11/19/23 11/19/23 06:33 06:35 08:47 WBC RBC Hgb Hct MCV MCH MCHC RDW Std Deviation RDW Coeff of Trevon Plt Count MPV Immature Gran % (Auto) Neut % (Auto) Lymph % (Auto) Luce % (Auto) Eos % (Auto) Baso % (Auto) Neut # (Auto) Lymph # (Auto) Luce # (Auto) Eos # (Auto) Baso # (Auto) Immature Gran # (Auto) Absolute Nucleated RBC Nucleated RBC % (auto) Neutrophils % (Manual) Band Neutrophils % Lymphocytes % (Manual) Prolymphocyte % Reactive Lymphs % (Man) Monocytes % (Manual) Eosinophils % (Manual) Basophils % (Manual) Metamyelocytes % (Man) Myelocytes % (Man) Promyelocytes % (Man) Blast Cells % (Manual) Plasma Cell % (Manual) Other Cells % Nucleated RBC % Neutrophils # (Manual) Band Neutrophils # Total Absolute Neuts Lymphocytes # (Manual) Prolymphocyte # Reactive Lymphs # Total Abs Lymphocytes Monocytes # (Manual) Eosinophils # (Manual) Basophils # (Manual) Metamyelocytes # (Man) Myelocytes # (Manual) Promyelocytes # (Man) Blast Cells # (Man) Plasma Cell # (Manual) Other Cells # Nucleated RBCs # (Man) Hypersegmented Neuts Hyposegmented Neuts Hypogranular Neuts Large Granular Lymphs # Lrg Granular Lymphs Hairy Cells Smudge Cells Toxic Granulation Toxic Vacuolation Dohle Bodies Sebas Rods Platelet Estimate Hypogranular Platelets Giant Platelets Platelet Satelliting RBC Morphology Polychromasia Hypochromasia Poikilocytosis Basophilic Stippling Anisocytosis Microcytosis Macrocytosis Spherocytes Pappenheimer Bodies Sickle Cells Target Cells Tear Drop Cells Ovalocytes Stomatocytes [place] Bodies Echinocytes Acanthocytes (Spur) Rouleaux RBC Agglutinates Schistocytes ESR Sezary Cell PT INR APTT PTT Ratio Heparin Anti-Xa, Unfract VBG pH 7.39 VBG pCO2 43 VBG pO2 40 VBG HCO3 26 VBG O2 Saturation 70.4 VBG Base Excess 0.7 Sodium Potassium Chloride Carbon Dioxide Anion Gap BUN Creatinine Est Cr Clr Drug Dosing Est GFR ( Amer) Est GFR (Non-Af Amer) BUN/Creatinine Ratio Glucose POC Glucose 243 H Estimat Average Glucose Hemoglobin A1c Lactate 2.4 H* Calcium Magnesium Total Bilirubin AST ALT Alkaline Phosphatase Troponin I High Sens C-Reactive Protein B-Natriuretic Peptide Total Protein Albumin Globulin Albumin/Globulin Ratio Lipase Procalcitonin Urine Color Urine Appearance Urine pH Ur Specific [place] Urine Protein Urine Glucose (UA) Urine Ketones Urine Blood Urine Nitrite Urine Bilirubin Urine Urobilinogen Ur Leukocyte Esterase Urine RBC Urine WBC Ur Epithelial Cells Urine Bacteria Nasal Screen MRSA (PCR) Ethyl Alcohol mg/dL Blood Parasites ID 11/19/23 11/19/23 11/19/23 10:38 11:57 12:01 WBC RBC Hgb Hct MCV MCH MCHC RDW Std Deviation RDW Coeff of Trevon Plt Count MPV Immature Gran % (Auto) Neut % (Auto) Lymph % (Auto) Luce % (Auto) Eos % (Auto) Baso % (Auto) Neut # (Auto) Lymph # (Auto) Luce # (Auto) Eos # (Auto) Baso # (Auto) Immature Gran # (Auto) Absolute Nucleated RBC Nucleated RBC % (auto) Neutrophils % (Manual) Band Neutrophils % Lymphocytes % (Manual) Prolymphocyte % Reactive Lymphs % (Man) Monocytes % (Manual) Eosinophils % (Manual) Basophils % (Manual) Metamyelocytes % (Man) Myelocytes % (Man) Promyelocytes % (Man) Blast Cells % (Manual) Plasma Cell % (Manual) Other Cells % Nucleated RBC % Neutrophils # (Manual) Band Neutrophils # Total Absolute Neuts Lymphocytes # (Manual) Prolymphocyte # Reactive Lymphs # Total Abs Lymphocytes Monocytes # (Manual) Eosinophils # (Manual) Basophils # (Manual) Metamyelocytes # (Man) Myelocytes # (Manual) Promyelocytes # (Man) Blast Cells # (Man) Plasma Cell # (Manual) Other Cells # Nucleated RBCs # (Man) Hypersegmented Neuts Hyposegmented Neuts Hypogranular Neuts Large Granular Lymphs # Lrg Granular Lymphs Hairy Cells Smudge Cells Toxic Granulation Toxic Vacuolation Dohle Bodies Sebas Rods Platelet Estimate Hypogranular Platelets Giant Platelets Platelet Satelliting RBC Morphology Polychromasia Hypochromasia Poikilocytosis Basophilic Stippling Anisocytosis Microcytosis Macrocytosis Spherocytes Pappenheimer Bodies Sickle Cells Target Cells Tear Drop Cells Ovalocytes Stomatocytes [place] Bodies Echinocytes Acanthocytes (Spur) Rouleaux RBC Agglutinates Schistocytes ESR Sezary Cell PT INR APTT PTT Ratio Heparin Anti-Xa, Unfract VBG pH VBG pCO2 VBG pO2 VBG HCO3 VBG O2 Saturation VBG Base Excess Sodium 133 L Potassium 3.6 Chloride 97 L Carbon Dioxide 25 Anion Gap 11 BUN 11 Creatinine 0.81 Est Cr Clr Drug Dosing 139.0 Est GFR ( Amer) 125.3 Est GFR (Non-Af Amer) 108.1 BUN/Creatinine Ratio 13.6 Glucose 334 H* POC Glucose 259 H 302 H* Estimat Average Glucose Hemoglobin A1c Lactate Calcium 8.3 L Magnesium Total Bilirubin AST ALT Alkaline Phosphatase Troponin I High Sens C-Reactive Protein B-Natriuretic Peptide Total Protein Albumin Globulin Albumin/Globulin Ratio Lipase Procalcitonin Urine Color Urine Appearance Urine pH Ur Specific [place] Urine Protein Urine Glucose (UA) Urine Ketones Urine Blood Urine Nitrite Urine Bilirubin Urine Urobilinogen Ur Leukocyte Esterase Urine RBC Urine WBC Ur Epithelial Cells Urine Bacteria Nasal Screen MRSA (PCR) Ethyl Alcohol mg/dL Blood Parasites ID 11/19/23 11/19/23 11/19/23 12:03 14:46 15:26 WBC 8.57 RBC 4.88 Hgb 14.3 Hct 41.1 L MCV 84.2 MCH 29.3 MCHC 34.8 RDW Std Deviation 39.3 RDW Coeff of Trevon 12.9 Plt Count 175 MPV 11.2 Immature Gran % (Auto) 0.5 Neut % (Auto) 74.2 Lymph % (Auto) 15.8 Luce % (Auto) 8.6 Eos % (Auto) 0.4 Baso % (Auto) 0.5 Neut # (Auto) 6.37 Lymph # (Auto) 1.35 Luce # (Auto) 0.74 H Eos # (Auto) 0.03 Baso # (Auto) 0.04 Immature Gran # (Auto) 0.04 Absolute Nucleated RBC Nucleated RBC % (auto) Neutrophils % (Manual) Band Neutrophils % Lymphocytes % (Manual) Prolymphocyte % Reactive Lymphs % (Man) Monocytes % (Manual) Eosinophils % (Manual) Basophils % (Manual) Metamyelocytes % (Man) Myelocytes % (Man) Promyelocytes % (Man) Blast Cells % (Manual) Plasma Cell % (Manual) Other Cells % Nucleated RBC % Neutrophils # (Manual) Band Neutrophils # Total Absolute Neuts Lymphocytes # (Manual) Prolymphocyte # Reactive Lymphs # Total Abs Lymphocytes Monocytes # (Manual) Eosinophils # (Manual) Basophils # (Manual) Metamyelocytes # (Man) Myelocytes # (Manual) Promyelocytes # (Man) Blast Cells # (Man) Plasma Cell # (Manual) Other Cells # Nucleated RBCs # (Man) Hypersegmented Neuts Hyposegmented Neuts Hypogranular Neuts Large Granular Lymphs # Lrg Granular Lymphs Hairy Cells Smudge Cells Toxic Granulation Toxic Vacuolation Dohle Bodies Sebas Rods Platelet Estimate Hypogranular Platelets Giant Platelets Platelet Satelliting RBC Morphology Polychromasia Hypochromasia Poikilocytosis Basophilic Stippling Anisocytosis Microcytosis Macrocytosis Spherocytes Pappenheimer Bodies Sickle Cells Target Cells Tear Drop Cells Ovalocytes Stomatocytes [place] Bodies Echinocytes Acanthocytes (Spur) Rouleaux RBC Agglutinates Schistocytes ESR Sezary Cell PT 10.1 INR 0.9 APTT 25 PTT Ratio 0.9 Heparin Anti-Xa, Unfract VBG pH VBG pCO2 VBG pO2 VBG HCO3 VBG O2 Saturation VBG Base Excess Sodium Potassium Chloride Carbon Dioxide Anion Gap BUN Creatinine Est Cr Clr Drug Dosing Est GFR ( Amer) Est GFR (Non-Af Amer) BUN/Creatinine Ratio Glucose POC Glucose 246 H Estimat Average Glucose Hemoglobin A1c Lactate 3.4 H* Calcium Magnesium Total Bilirubin AST ALT Alkaline Phosphatase Troponin I High Sens C-Reactive Protein B-Natriuretic Peptide Total Protein Albumin Globulin Albumin/Globulin Ratio Lipase Procalcitonin Urine Color Urine Appearance Urine pH Ur Specific [place] Urine Protein Urine Glucose (UA) Urine Ketones Urine Blood Urine Nitrite Urine Bilirubin Urine Urobilinogen Ur Leukocyte Esterase Urine RBC Urine WBC Ur Epithelial Cells Urine Bacteria Nasal Screen MRSA (PCR) Ethyl Alcohol mg/dL Blood Parasites ID 11/19/23 11/19/23 11/19/23 17:19 20:26 20:42 WBC RBC Hgb Hct MCV MCH MCHC RDW Std Deviation RDW Coeff of Trevon Plt Count MPV Immature Gran % (Auto) Neut % (Auto) Lymph % (Auto) Luce % (Auto) Eos % (Auto) Baso % (Auto) Neut # (Auto) Lymph # (Auto) Luce # (Auto) Eos # (Auto) Baso # (Auto) Immature Gran # (Auto) Absolute Nucleated RBC Nucleated RBC % (auto) Neutrophils % (Manual) Band Neutrophils % Lymphocytes % (Manual) Prolymphocyte % Reactive Lymphs % (Man) Monocytes % (Manual) Eosinophils % (Manual) Basophils % (Manual) Metamyelocytes % (Man) Myelocytes % (Man) Promyelocytes % (Man) Blast Cells % (Manual) Plasma Cell % (Manual) Other Cells % Nucleated RBC % Neutrophils # (Manual) Band Neutrophils # Total Absolute Neuts Lymphocytes # (Manual) Prolymphocyte # Reactive Lymphs # Total Abs Lymphocytes Monocytes # (Manual) Eosinophils # (Manual) Basophils # (Manual) Metamyelocytes # (Man) Myelocytes # (Manual) Promyelocytes # (Man) Blast Cells # (Man) Plasma Cell # (Manual) Other Cells # Nucleated RBCs # (Man) Hypersegmented Neuts Hyposegmented Neuts Hypogranular Neuts Large Granular Lymphs # Lrg Granular Lymphs Hairy Cells Smudge Cells Toxic Granulation Toxic Vacuolation Dohle Bodies Sebas Rods Platelet Estimate Hypogranular Platelets Giant Platelets Platelet Satelliting RBC Morphology Polychromasia Hypochromasia Poikilocytosis Basophilic Stippling Anisocytosis Microcytosis Macrocytosis Spherocytes Pappenheimer Bodies Sickle Cells Target Cells Tear Drop Cells Ovalocytes Stomatocytes [place] Bodies Echinocytes Acanthocytes (Spur) Rouleaux RBC Agglutinates Schistocytes ESR Sezary Cell PT INR APTT PTT Ratio Heparin Anti-Xa, Unfract 0.47 VBG pH VBG pCO2 VBG pO2 VBG HCO3 VBG O2 Saturation VBG Base Excess Sodium Potassium Chloride Carbon Dioxide Anion Gap BUN Creatinine Est Cr Clr Drug Dosing Est GFR ( Amer) Est GFR (Non-Af Amer) BUN/Creatinine Ratio Glucose POC Glucose 263 H 225 H Estimat Average Glucose Hemoglobin A1c Lactate Calcium Magnesium Total Bilirubin AST ALT Alkaline Phosphatase Troponin I High Sens C-Reactive Protein B-Natriuretic Peptide Total Protein Albumin Globulin Albumin/Globulin Ratio Lipase Procalcitonin Urine Color Urine Appearance Urine pH Ur Specific [place] Urine Protein Urine Glucose (UA) Urine Ketones Urine Blood Urine Nitrite Urine Bilirubin Urine Urobilinogen Ur Leukocyte Esterase Urine RBC Urine WBC Ur Epithelial Cells Urine Bacteria Nasal Screen MRSA (PCR) Ethyl Alcohol mg/dL Blood Parasites ID 11/19/23 11/19/23 11/20/23 20:45 Unknown 00:10 WBC RBC Hgb Hct MCV MCH MCHC RDW Std Deviation RDW Coeff of Trevon Plt Count MPV Immature Gran % (Auto) Neut % (Auto) Lymph % (Auto) Luce % (Auto) Eos % (Auto) Baso % (Auto) Neut # (Auto) Lymph # (Auto) Luce # (Auto) Eos # (Auto) Baso # (Auto) Immature Gran # (Auto) Absolute Nucleated RBC Nucleated RBC % (auto) Neutrophils % (Manual) Band Neutrophils % Lymphocytes % (Manual) Prolymphocyte % Reactive Lymphs % (Man) Monocytes % (Manual) Eosinophils % (Manual) Basophils % (Manual) Metamyelocytes % (Man) Myelocytes % (Man) Promyelocytes % (Man) Blast Cells % (Manual) Plasma Cell % (Manual) Other Cells % Nucleated RBC % Neutrophils # (Manual) Band Neutrophils # Total Absolute Neuts Lymphocytes # (Manual) Prolymphocyte # Reactive Lymphs # Total Abs Lymphocytes Monocytes # (Manual) Eosinophils # (Manual) Basophils # (Manual) Metamyelocytes # (Man) Myelocytes # (Manual) Promyelocytes # (Man) Blast Cells # (Man) Plasma Cell # (Manual) Other Cells # Nucleated RBCs # (Man) Hypersegmented Neuts Hyposegmented Neuts Hypogranular Neuts Large Granular Lymphs # Lrg Granular Lymphs Hairy Cells Smudge Cells Toxic Granulation Toxic Vacuolation Dohle Bodies Sebas Rods Platelet Estimate Hypogranular Platelets Giant Platelets Platelet Satelliting RBC Morphology Polychromasia Hypochromasia Poikilocytosis Basophilic Stippling Anisocytosis Microcytosis Macrocytosis Spherocytes Pappenheimer Bodies Sickle Cells Target Cells Tear Drop Cells Ovalocytes Stomatocytes [place] Bodies Echinocytes Acanthocytes (Spur) Rouleaux RBC Agglutinates Schistocytes ESR Sezary Cell PT INR APTT PTT Ratio Heparin Anti-Xa, Unfract VBG pH VBG pCO2 VBG pO2 VBG HCO3 VBG O2 Saturation VBG Base Excess Sodium Potassium Chloride Carbon Dioxide Anion Gap BUN Creatinine Est Cr Clr Drug Dosing Est GFR ( Amer) Est GFR (Non-Af Amer) BUN/Creatinine Ratio Glucose POC Glucose 159 H Estimat Average Glucose Hemoglobin A1c Lactate 1.8 Calcium Magnesium Total Bilirubin AST ALT Alkaline Phosphatase Troponin I High Sens C-Reactive Protein B-Natriuretic Peptide Total Protein Albumin Globulin Albumin/Globulin Ratio Lipase Procalcitonin Urine Color Yellow Urine Appearance Clear Urine pH 5.0 Ur Specific [place] 1.025 Urine Protein 1+ H Urine Glucose (UA) 2+ H Urine Ketones 4+ H Urine Blood Negative Urine Nitrite Negative Urine Bilirubin Negative Urine Urobilinogen Negative Ur Leukocyte Esterase Negative Urine RBC 0-4 Urine WBC 0-5 Ur Epithelial Cells 0-5 Urine Bacteria Negative Nasal Screen MRSA (PCR) Negative Ethyl Alcohol mg/dL Blood Parasites ID 11/20/23 11/20/23 11/20/23 02:39 05:33 08:16 WBC 7.12 RBC 4.86 Hgb 14.8 Hct 41.1 L MCV 84.6 MCH 30.5 MCHC 36.0 RDW Std Deviation 39.8 RDW Coeff of Trevon 13.0 Plt Count 157 MPV 11.9 Immature Gran % (Auto) 0.4 Neut % (Auto) 62.9 Lymph % (Auto) 25.6 Luce % (Auto) 9.4 Eos % (Auto) 1.3 Baso % (Auto) 0.4 Neut # (Auto) 4.48 Lymph # (Auto) 1.82 Luce # (Auto) 0.67 H Eos # (Auto) 0.09 Baso # (Auto) 0.03 Immature Gran # (Auto) 0.03 Absolute Nucleated RBC Nucleated RBC % (auto) Neutrophils % (Manual) Band Neutrophils % Lymphocytes % (Manual) Prolymphocyte % Reactive Lymphs % (Man) Monocytes % (Manual) Eosinophils % (Manual) Basophils % (Manual) Metamyelocytes % (Man) Myelocytes % (Man) Promyelocytes % (Man) Blast Cells % (Manual) Plasma Cell % (Manual) Other Cells % Nucleated RBC % Neutrophils # (Manual) Band Neutrophils # Total Absolute Neuts Lymphocytes # (Manual) Prolymphocyte # Reactive Lymphs # Total Abs Lymphocytes Monocytes # (Manual) Eosinophils # (Manual) Basophils # (Manual) Metamyelocytes # (Man) Myelocytes # (Manual) Promyelocytes # (Man) Blast Cells # (Man) Plasma Cell # (Manual) Other Cells # Nucleated RBCs # (Man) Hypersegmented Neuts Hyposegmented Neuts Hypogranular Neuts Large Granular Lymphs # Lrg Granular Lymphs Hairy Cells Smudge Cells Toxic Granulation Toxic Vacuolation Dohle Bodies Sebas Rods Platelet Estimate Hypogranular Platelets Giant Platelets Platelet Satelliting RBC Morphology Polychromasia Hypochromasia Poikilocytosis Basophilic Stippling Anisocytosis Microcytosis Macrocytosis Spherocytes Pappenheimer Bodies Sickle Cells Target Cells Tear Drop Cells Ovalocytes Stomatocytes [place] Bodies Echinocytes Acanthocytes (Spur) Rouleaux RBC Agglutinates Schistocytes ESR Sezary Cell PT INR APTT PTT Ratio Heparin Anti-Xa, Unfract 0.35 VBG pH VBG pCO2 VBG pO2 VBG HCO3 VBG O2 Saturation VBG Base Excess Sodium 135 L Potassium 3.1 L Chloride 101 Carbon Dioxide 25 Anion Gap 9 BUN 10 Creatinine 0.78 Est Cr Clr Drug Dosing 146.9 Est GFR ( Amer) 127.2 Est GFR (Non-Af Amer) 109.8 BUN/Creatinine Ratio 12.8 Glucose 226 H POC Glucose 251 H 243 H Estimat Average Glucose Hemoglobin A1c Lactate Calcium 8.4 L Magnesium Total Bilirubin AST ALT Alkaline Phosphatase Troponin I High Sens C-Reactive Protein B-Natriuretic Peptide Total Protein Albumin Globulin Albumin/Globulin Ratio Lipase Procalcitonin Urine Color Urine Appearance Urine pH Ur Specific [place] Urine Protein Urine Glucose (UA) Urine Ketones Urine Blood Urine Nitrite Urine Bilirubin Urine Urobilinogen Ur Leukocyte Esterase Urine RBC Urine WBC Ur Epithelial Cells Urine Bacteria Nasal Screen MRSA (PCR) Ethyl Alcohol mg/dL Blood Parasites ID 11/20/23 11/20/23 11/20/23 09:46 11:52 16:45 WBC RBC Hgb Hct MCV MCH MCHC RDW Std Deviation RDW Coeff of Trevon Plt Count MPV Immature Gran % (Auto) Neut % (Auto) Lymph % (Auto) Luce % (Auto) Eos % (Auto) Baso % (Auto) Neut # (Auto) Lymph # (Auto) Luce # (Auto) Eos # (Auto) Baso # (Auto) Immature Gran # (Auto) Absolute Nucleated RBC Nucleated RBC % (auto) Neutrophils % (Manual) Band Neutrophils % Lymphocytes % (Manual) Prolymphocyte % Reactive Lymphs % (Man) Monocytes % (Manual) Eosinophils % (Manual) Basophils % (Manual) Metamyelocytes % (Man) Myelocytes % (Man) Promyelocytes % (Man) Blast Cells % (Manual) Plasma Cell % (Manual) Other Cells % Nucleated RBC % Neutrophils # (Manual) Band Neutrophils # Total Absolute Neuts Lymphocytes # (Manual) Prolymphocyte # Reactive Lymphs # Total Abs Lymphocytes Monocytes # (Manual) Eosinophils # (Manual) Basophils # (Manual) Metamyelocytes # (Man) Myelocytes # (Manual) Promyelocytes # (Man) Blast Cells # (Man) Plasma Cell # (Manual) Other Cells # Nucleated RBCs # (Man) Hypersegmented Neuts Hyposegmented Neuts Hypogranular Neuts Large Granular Lymphs # Lrg Granular Lymphs Hairy Cells Smudge Cells Toxic Granulation Toxic Vacuolation Dohle Bodies Esbas Rods Platelet Estimate Hypogranular Platelets Giant Platelets Platelet Satelliting RBC Morphology Polychromasia Hypochromasia Poikilocytosis Basophilic Stippling Anisocytosis Microcytosis Macrocytosis Spherocytes Pappenheimer Bodies Sickle Cells Target Cells Tear Drop Cells Ovalocytes Stomatocytes [place] Bodies Echinocytes Acanthocytes (Spur) Rouleaux RBC Agglutinates Schistocytes ESR Sezary Cell PT INR APTT PTT Ratio Heparin Anti-Xa, Unfract 0.29 L 0.27 L VBG pH VBG pCO2 VBG pO2 VBG HCO3 VBG O2 Saturation VBG Base Excess Sodium Potassium Chloride Carbon Dioxide Anion Gap BUN Creatinine Est Cr Clr Drug Dosing Est GFR ( Amer) Est GFR (Non-Af Amer) BUN/Creatinine Ratio Glucose POC Glucose 221 H Estimat Average Glucose Hemoglobin A1c Lactate Calcium Magnesium Total Bilirubin AST ALT Alkaline Phosphatase Troponin I High Sens C-Reactive Protein B-Natriuretic Peptide Total Protein Albumin Globulin Albumin/Globulin Ratio Lipase Procalcitonin Urine Color Urine Appearance Urine pH Ur Specific [place] Urine Protein Urine Glucose (UA) Urine Ketones Urine Blood Urine Nitrite Urine Bilirubin Urine Urobilinogen Ur Leukocyte Esterase Urine RBC Urine WBC Ur Epithelial Cells Urine Bacteria Nasal Screen MRSA (PCR) Ethyl Alcohol mg/dL Blood Parasites ID 11/20/23 11/20/23 11/21/23 16:50 20:35 00:12 WBC RBC Hgb Hct MCV MCH MCHC RDW Std Deviation RDW Coeff of Trevon Plt Count MPV Immature Gran % (Auto) Neut % (Auto) Lymph % (Auto) Luce % (Auto) Eos % (Auto) Baso % (Auto) Neut # (Auto) Lymph # (Auto) Luce # (Auto) Eos # (Auto) Baso # (Auto) Immature Gran # (Auto) Absolute Nucleated RBC Nucleated RBC % (auto) Neutrophils % (Manual) Band Neutrophils % Lymphocytes % (Manual) Prolymphocyte % Reactive Lymphs % (Man) Monocytes % (Manual) Eosinophils % (Manual) Basophils % (Manual) Metamyelocytes % (Man) Myelocytes % (Man) Promyelocytes % (Man) Blast Cells % (Manual) Plasma Cell % (Manual) Other Cells % Nucleated RBC % Neutrophils # (Manual) Band Neutrophils # Total Absolute Neuts Lymphocytes # (Manual) Prolymphocyte # Reactive Lymphs # Total Abs Lymphocytes Monocytes # (Manual) Eosinophils # (Manual) Basophils # (Manual) Metamyelocytes # (Man) Myelocytes # (Manual) Promyelocytes # (Man) Blast Cells # (Man) Plasma Cell # (Manual) Other Cells # Nucleated RBCs # (Man) Hypersegmented Neuts Hyposegmented Neuts Hypogranular Neuts Large Granular Lymphs # Lrg Granular Lymphs Hairy Cells Smudge Cells Toxic Granulation Toxic Vacuolation Dohle Bodies Sebas Rods Platelet Estimate Hypogranular Platelets Giant Platelets Platelet Satelliting RBC Morphology Polychromasia Hypochromasia Poikilocytosis Basophilic Stippling Anisocytosis Microcytosis Macrocytosis Spherocytes Pappenheimer Bodies Sickle Cells Target Cells Tear Drop Cells Ovalocytes Stomatocytes [place] Bodies Echinocytes Acanthocytes (Spur) Rouleaux RBC Agglutinates Schistocytes ESR Sezary Cell PT INR APTT PTT Ratio Heparin Anti-Xa, Unfract 0.32 VBG pH VBG pCO2 VBG pO2 VBG HCO3 VBG O2 Saturation VBG Base Excess Sodium Potassium Chloride Carbon Dioxide Anion Gap BUN Creatinine Est Cr Clr Drug Dosing Est GFR ( Amer) Est GFR (Non-Af Amer) BUN/Creatinine Ratio Glucose POC Glucose 150 H 110 H Estimat Average Glucose Hemoglobin A1c Lactate Calcium Magnesium Total Bilirubin AST ALT Alkaline Phosphatase Troponin I High Sens C-Reactive Protein B-Natriuretic Peptide Total Protein Albumin Globulin Albumin/Globulin Ratio Lipase Procalcitonin Urine Color Urine Appearance Urine pH Ur Specific [place] Urine Protein Urine Glucose (UA) Urine Ketones Urine Blood Urine Nitrite Urine Bilirubin Urine Urobilinogen Ur Leukocyte Esterase Urine RBC Urine WBC Ur Epithelial Cells Urine Bacteria Nasal Screen MRSA (PCR) Ethyl Alcohol mg/dL Blood Parasites ID 11/21/23 11/21/23 11/21/23 05:45 06:46 08:13 WBC 5.42 RBC 4.93 Hgb 14.6 Hct 41.8 L MCV 84.8 MCH 29.6 MCHC 34.9 RDW Std Deviation 39.5 RDW Coeff of Trevon 12.9 Plt Count 146 MPV 11.3 Immature Gran % (Auto) 0.9 Neut % (Auto) 53.7 Lymph % (Auto) 31.0 Luce % (Auto) 10.0 Eos % (Auto) 3.7 Baso % (Auto) 0.7 Neut # (Auto) 2.91 Lymph # (Auto) 1.68 Luce # (Auto) 0.54 Eos # (Auto) 0.20 Baso # (Auto) 0.04 Immature Gran # (Auto) 0.05 Absolute Nucleated RBC Nucleated RBC % (auto) Neutrophils % (Manual) Band Neutrophils % Lymphocytes % (Manual) Prolymphocyte % Reactive Lymphs % (Man) Monocytes % (Manual) Eosinophils % (Manual) Basophils % (Manual) Metamyelocytes % (Man) Myelocytes % (Man) Promyelocytes % (Man) Blast Cells % (Manual) Plasma Cell % (Manual) Other Cells % Nucleated RBC % Neutrophils # (Manual) Band Neutrophils # Total Absolute Neuts Lymphocytes # (Manual) Prolymphocyte # Reactive Lymphs # Total Abs Lymphocytes Monocytes # (Manual) Eosinophils # (Manual) Basophils # (Manual) Metamyelocytes # (Man) Myelocytes # (Manual) Promyelocytes # (Man) Blast Cells # (Man) Plasma Cell # (Manual) Other Cells # Nucleated RBCs # (Man) Hypersegmented Neuts Hyposegmented Neuts Hypogranular Neuts Large Granular Lymphs # Lrg Granular Lymphs Hairy Cells Smudge Cells Toxic Granulation Toxic Vacuolation Dohle Bodies Sebas Rods Platelet Estimate Hypogranular Platelets Giant Platelets Platelet Satelliting RBC Morphology Polychromasia Hypochromasia Poikilocytosis Basophilic Stippling Anisocytosis Microcytosis Macrocytosis Spherocytes Pappenheimer Bodies Sickle Cells Target Cells Tear Drop Cells Ovalocytes Stomatocytes [place] Bodies Echinocytes Acanthocytes (Spur) Rouleaux RBC Agglutinates Schistocytes ESR Sezary Cell PT INR APTT PTT Ratio Heparin Anti-Xa, Unfract 0.37 VBG pH VBG pCO2 VBG pO2 VBG HCO3 VBG O2 Saturation VBG Base Excess Sodium 137 Potassium 3.3 L Chloride 104 Carbon Dioxide 24 Anion Gap 9 BUN 8 Creatinine 0.68 Est Cr Clr Drug Dosing 170.3 Est GFR ( Amer) 134.6 Est GFR (Non-Af Amer) 116.2 BUN/Creatinine Ratio 11.8 Glucose 154 H POC Glucose 149 H Estimat Average Glucose Hemoglobin A1c Lactate Calcium 8.3 L Magnesium Total Bilirubin AST ALT Alkaline Phosphatase Troponin I High Sens C-Reactive Protein B-Natriuretic Peptide Total Protein Albumin Globulin Albumin/Globulin Ratio Lipase Procalcitonin Urine Color Urine Appearance Urine pH Ur Specific [place] Urine Protein Urine Glucose (UA) Urine Ketones Urine Blood Urine Nitrite Urine Bilirubin Urine Urobilinogen Ur Leukocyte Esterase Urine RBC Urine WBC Ur Epithelial Cells Urine Bacteria Nasal Screen MRSA (PCR) Ethyl Alcohol mg/dL Blood Parasites ID 11/21/23 12:25 WBC RBC Hgb Hct MCV MCH MCHC RDW Std Deviation RDW Coeff of Trevon Plt Count MPV Immature Gran % (Auto) Neut % (Auto) Lymph % (Auto) Luce % (Auto) Eos % (Auto) Baso % (Auto) Neut # (Auto) Lymph # (Auto) Luce # (Auto) Eos # (Auto) Baso # (Auto) Immature Gran # (Auto) Absolute Nucleated RBC Nucleated RBC % (auto) Neutrophils % (Manual) Band Neutrophils % Lymphocytes % (Manual) Prolymphocyte % Reactive Lymphs % (Man) Monocytes % (Manual) Eosinophils % (Manual) Basophils % (Manual) Metamyelocytes % (Man) Myelocytes % (Man) Promyelocytes % (Man) Blast Cells % (Manual) Plasma Cell % (Manual) Other Cells % Nucleated RBC % Neutrophils # (Manual) Band Neutrophils # Total Absolute Neuts Lymphocytes # (Manual) Prolymphocyte # Reactive Lymphs # Total Abs Lymphocytes Monocytes # (Manual) Eosinophils # (Manual) Basophils # (Manual) Metamyelocytes # (Man) Myelocytes # (Manual) Promyelocytes # (Man) Blast Cells # (Man) Plasma Cell # (Manual) Other Cells # Nucleated RBCs # (Man) Hypersegmented Neuts Hyposegmented Neuts Hypogranular Neuts Large Granular Lymphs # Lrg Granular Lymphs Hairy Cells Smudge Cells Toxic Granulation Toxic Vacuolation Dohle Bodies Sebas Rods Platelet Estimate Hypogranular Platelets Giant Platelets Platelet Satelliting RBC Morphology Polychromasia Hypochromasia Poikilocytosis Basophilic Stippling Anisocytosis Microcytosis Macrocytosis Spherocytes Pappenheimer Bodies Sickle Cells Target Cells Tear Drop Cells Ovalocytes Stomatocytes [place] Bodies Echinocytes Acanthocytes (Spur) Rouleaux RBC Agglutinates Schistocytes ESR Sezary Cell PT INR APTT PTT Ratio Heparin Anti-Xa, Unfract VBG pH VBG pCO2 VBG pO2 VBG HCO3 VBG O2 Saturation VBG Base Excess Sodium Potassium Chloride Carbon Dioxide Anion Gap BUN Creatinine Est Cr Clr Drug Dosing Est GFR ( Amer) Est GFR (Non-Af Amer) BUN/Creatinine Ratio Glucose POC Glucose 144 H Estimat Average Glucose Hemoglobin A1c Lactate Calcium Magnesium Total Bilirubin AST ALT Alkaline Phosphatase Troponin I High Sens C-Reactive Protein B-Natriuretic Peptide Total Protein Albumin Globulin Albumin/Globulin Ratio Lipase Procalcitonin Urine Color Urine Appearance Urine pH Ur Specific [place] Urine Protein Urine Glucose (UA) Urine Ketones Urine Blood Urine Nitrite Urine Bilirubin Urine Urobilinogen Ur Leukocyte Esterase Urine RBC Urine WBC Ur Epithelial Cells Urine Bacteria Nasal Screen MRSA (PCR) Ethyl Alcohol mg/dL Blood Parasites ID Diagnostic Findings Chest X-Ray 11/18/23 23:10 XR chest 1V portable CLINICAL HISTORY: Chest pain, nonspecific TECHNIQUE: Single frontal radiograph of the chest was obtained. Comparison: Comparison is made to chest radiograph 05/17/2022 FINDINGS: No lines and tubes are seen. Cardiomegaly is noted. Prominence and cephalization of the vasculature is seen. No evidence of pleural effusion or pneumothorax. IMPRESSION: Cardiomegaly and mild pulmonary edema. ACT 112: Negative or not required by law. Electronically signed by: Salvatore Delaney M.D. 11/19/2023 9:36 AM Abdomen/Pelvis CT 11/19/23 02:16 Exam(s): CT ABDOMEN + PELVIS With Contrast IV Amt: 89 ml opti 320 EXAM: CT Abdomen and Pelvis With Intravenous Contrast CLINICAL HISTORY: Reason for exam: abd pain nv. TECHNIQUE: Axial computed tomography images of the abdomen and pelvis with intravenous contrast. CTDI is 26.66 mGy and DLP is 1793.54 mGy-cm. Automated exposure control was utilized for the study. A dose lowering technique was utilized adhering to the principles of ALARA. CONTRAST: Patient received 89 ml opti 320 of IV contrast COMPARISON: No relevant prior studies available. FINDINGS: Lung bases: Unremarkable. No mass. No consolidation. ABDOMEN: Liver: Fatty liver. Gallbladder and bile ducts: Unremarkable. No calcified stones. No ductal dilation. Pancreas: Unremarkable. No mass. No ductal dilation. Spleen: Unremarkable. No splenomegaly. Adrenals: Unremarkable. No mass. Kidneys and ureters: Unremarkable. No solid mass. No hydronephrosis. Stomach and bowel: Sigmoid colonic diverticulosis. No obstruction. No mucosal thickening. PELVIS: Appendix: Normal appendix. Bladder: Unremarkable. No mass. Reproductive: Unremarkable as visualized. ABDOMEN and PELVIS: Intraperitoneal space: Unremarkable. No free air. No significant fluid collection. Bones/joints: No acute fracture. No dislocation. Soft tissues: Small omental fat-containing umbilical hernia. Vasculature: Unremarkable. No abdominal aortic aneurysm. Lymph nodes: Unremarkable. No enlarged lymph nodes. Other findings: There is L2/3 posterior disc osteophyte complex. IMPRESSION: No acute abdominal process identified Electronically signed by: Timothy Ch MD 11/19/23 06:[address] 11/19/23 02:16 Exam(s): CT EXTREMITY LEFT LOWER With Contrast IV Amt: 89 ml opti 320 EXAM: CT Left Lower Extremity With Intravenous Contrast CLINICAL HISTORY: Reason for exam: swelling/wound. TECHNIQUE: Axial computed tomography images of the left lower extremity with intravenous contrast. CTDI is 6.03 mGy and DLP is 354.56 mGy-cm. Automated exposure control was utilized for the study. A dose lowering technique was utilized adhering to the principles of ALARA. CONTRAST: Patient received 89 ml opti 320 of IV contrast COMPARISON: No relevant prior studies available. FINDINGS: Bones/joints: Degenerative arthritic changes seen at the patellofemoral joint. 1 cm subchondral cystic change seen in the proximal tibia. No acute fracture. No dislocation. Soft tissues: There is 1.4 cm diameter soft tissue defect with surrounding soft tissue edema seen on the medial aspect of the left distal leg. IMPRESSION: 1. No acute osseous abnormality 2. Soft tissue defect on the medial aspect of the distal left leg with surrounding soft tissue edema Electronically signed by: Timothy Ch MD 11/19/23 06:11 AM Lower Extremity MRI 11/19/23 06:17 MR lower leg LT wo/w con CLINICAL HISTORY: chronic LLE wound, ro osteomyelitis TECHNIQUE: Multisequence, multiplanar MR images of the left lower leg were obtained prior to and following administration of gadolinium contrast. COMPARISON: None available at the time of this dictation. FINDINGS: Exam is limited by patient motion. A soft tissue ulcer seen in the lateral ankle. No drainable fluid collection or bony edema is seen. No joint effusion is seen. The soft tissues are unremarkable. IMPRESSION: No drainable fluid collection or bony edema to suggest osteomyelitis. ACT 112: Negative or not required by law. Electronically signed by: Salvatore Delaney M.D. 11/19/2023 11:21 AM Venous Doppler Study 11/19/23 07:12 US venous doppler LE LT CLINICAL HISTORY: swelling TECHNIQUE: Left lower extremity real-time compression venous ultrasound with Color Doppler imaging. Utilizing real-time ultrasonic imaging multiple real time high-resolution ultrasonic images with compression and noncompression maneuvers of the deep venous system in addition to color doppler imaging were performed from the common femoral vein through the proximal calf veins. COMPARISON: None available at the time of this dictation. FINDINGS/IMPRESSION: There is a mobile thrombus in the left popliteus muscle that migrated during the course of the exam. Following this migration, no deep venous thrombus is seen. Nonhealing ulcer is again noted in the ankle. ACT 112: Negative or not required by law. Electronically signed by: Salvatore Delaney M.D. 11/19/2023 8:24 AM Chest CTA 11/20/23 14:27 CT angio chest PE protocol CT DOSE: 742.81 mGy.cm HISTORY: 43 years-old Male with chest pain, r/o PE. Acute chest pain TECHNIQUE: Multiple CTA images of the chest were obtained after the intravenous administration of 118 ml Optiray. Coronal and sagittal MIPS were obtained from the axial data set and were submitted for review. All measurements were obtained according to NASCET criteria. A dose lowering technique was utilized adhering to the principles of ALARA. COMPARISON: 05/15/2022 FINDINGS: CTA: Mild cardiomegaly. There is no pericardial effusion. Unremarkable thoracic aorta and imaged great vessels. No acute pulmonary emboli. There is minimal linear nonocclusive fibrin stranding within the right lower lobe on image 73 series 4 related to chronic pulmonary emboli. CT CHEST: No thyroid nodule. Sternotomy wires are noted. Subcentimeter periesophageal lymph nodes. Mild nonspecific distal esophageal wall thickening. There is no pneumothorax, pleural effusion, airspace consolidation or pulmonary edema. Minimal subsegmental bibasilar atelectasis. There are no suspicious pulmonary nodules or masses identified. Hepatomegaly with hepatic steatosis. No acute fracture. IMPRESSION: 1. No acute pulmonary emboli identified. 2. Minimal residual nonocclusive chronic pulmonary emboli within the right lower lobe. ACT 112: Negative or not required by law. The above report was generated using voice recognition software. It may contain grammatical, syntax or spelling errors. Electronically signed by: Stuart Keith M.D. 11/20/2023 3:36 PM Medications Administered Home Medications Medication Instructions Recorded Confirmed Last Taken atorvastatin 40 mg tablet 40 mg PO QAM 06/23/21 11/19/23 11/18/23 gabapentin 100 mg capsule 100 mg PO TID 06/23/21 11/19/23 11/18/23 12:00 glipizide 5 mg tablet, extended 5 mg PO QAM 06/23/21 11/19/23 11/18/23 release 24 hr magnesium oxide 400 mg (241.3 mg 400 mg PO QAM #14 tabs 05/19/22 11/19/23 11/18/23 magnesium) tablet thiamine HCl (vitamin B1) 50 mg 25 mg (1/2 x 50 mg) PO DAILY #15 05/19/22 11/19/23 Unknown tablet tabs metoprolol succinate 100 mg 100 mg PO DAILY #30 tabs 09/19/22 11/19/23 11/18/23 tablet,extended release 24 hr budesonide-formoterol HFA 80 2 puff inhalation BID 11/19/23 11/19/23 11/18/23 mcg-4.5 mcg/actuation aerosol inhaler cyclobenzaprine 10 mg tablet 10 mg PO HS PRN Muscle Spasm 11/19/23 11/19/23 Unknown hydrochlorothiazide 25 mg tablet 25 mg PO 1XD 11/19/23 11/19/23 11/18/23 insulin NPH isoph U-100 human 100 18 unit subcut 2XD 11/19/23 11/19/23 11/18/23 unit/mL subcutaneous suspension (Novolin N NPH U-100 Insulin isophane) losartan 25 mg tablet (Cozaar) 25 mg PO 1XD 11/19/23 11/19/23 11/18/23 pantoprazole 40 mg tablet,delayed 40 mg PO DAILY 11/19/23 11/19/23 11/18/23 release Active Medications Generic Name Dose Route Start Last Admin Trade Name Freq PRN Reason Stop Dose Admin Acetaminophen 650 mg 11/19/23 04:03 11/21/23 08:15 Acetaminophen 325 Mg Tab PO 12/19/23 04:02 650 mg Q4H PRN Administration Pain or Fever Atorvastatin Calcium 40 mg 11/19/23 09:00 11/21/23 08:05 Atorvastatin 40 Mg Tab PO 12/19/23 08:59 40 mg QAM IVAN Administration Doxycycline Hyclate 100 mg 11/19/23 21:00 11/21/23 08:06 Doxycycline Hyclate 100 Mg Cap PO 11/26/23 20:59 100 mg BID IVAN Administration Enoxaparin Sodium 100 mg 11/21/23 09:15 11/21/23 09:46 Enoxaparin 100 Mg/1ml Syr SQ 12/21/23 09:14 100 mg Q12H IVAN Administration Fluticasone/Vilanterol 1 puffs 11/19/23 09:00 11/21/23 10:04 Fluticasone/Vilanterol 100/25mcg 14 Puffs/Inhaler INH 12/19/23 08:59 Not Given DAILY IVAN Folic Acid 1 mg 11/19/23 09:00 11/21/23 08:05 Folic Acid 1 Mg Tab PO 12/19/23 08:59 1 mg QAM IVAN Administration Gabapentin 100 mg 11/19/23 09:00 11/21/23 14:02 Gabapentin 100 Mg Cap PO 12/19/23 08:59 100 mg TID IVAN Administration Cefepime HCl 2,000 mg/ Syringe 20 mls @ 5 mls/min 11/19/23 12:00 11/21/23 12:49 IV 11/26/23 11:59 5 mls/min Q8H IVAN Administration Protocol Insulin Aspart 0 units 11/19/23 12:38 11/21/23 12:48 Insulin Aspart Per Unit Charge SC 12/19/23 12:37 13 units ACHS IVAN Administration Protocol Insulin Glargine 0 units 11/21/23 09:00 11/21/23 08:54 Lantus Per Unit Charge SQ 12/20/23 08:59 35 units BID IVAN Administration Protocol Lactobacillus Acidophilus 2 cap 11/21/23 09:30 11/21/23 10:42 Advanced Probiotic 1250 Mg Capsule PO 12/21/23 09:29 2 cap DAILY IVAN Administration Losartan Potassium 25 mg 11/19/23 21:00 11/20/23 20:58 Losartan Potassium 25 Mg Tab PO 12/19/23 20:59 25 mg HS IVAN Administration Magnesium Hydroxide 30 ml 11/20/23 17:35 11/20/23 18:06 Magnesium Hydroxide Susp 30 Ml Udc PO 12/20/23 17:34 30 ml Q6H PRN Administration Constipation Magnesium Oxide 400 mg 11/19/23 09:00 11/21/23 08:05 Magnesium Oxide 400 Mg Tab PO 12/19/23 08:59 400 mg QAM IVAN Administration Melatonin 3 mg 11/19/23 23:56 11/20/23 21:12 Melatonin 3 Mg Tab PO 12/19/23 23:55 3 mg HS PRN Administration Sleep Metoprolol Succinate 100 mg 11/19/23 09:00 11/21/23 08:05 Metoprolol Succ 50mg Ext Rel Tab PO 12/19/23 08:59 100 mg DAILY IVAN Administration Multivitamins 1 tab 11/19/23 09:00 11/21/23 08:05 Multivitamin Tab PO 12/19/23 08:59 1 tab QAM IVAN Administration Pantoprazole Sodium 40 mg 11/19/23 06:30 11/21/23 05:48 Pantoprazole 40 Mg Tab PO 12/19/23 06:29 40 mg DAILYBB IVAN Administration Polyethylene Glycol 17 gm 11/20/23 17:45 11/21/23 08:15 Polyethylene (Miralax) 17 Gm Pack PO 12/20/23 17:44 17 gm DAILY IVAN Administration Thiamine HCl 100 mg 11/20/23 09:00 11/21/23 08:05 Thiamine Hcl 100 Mg Tab PO 12/20/23 08:59 100 mg QAM IVAN Administration
[2023-11-21] MEDS ORDERED: WARFARIN SOD 3 MG TAB PO SCH (16:00)
[2023-11-21] MEDS: COLLAGENASE OINT 30 GM TUBE EXT SCH (16:13)
[2023-11-21] MEDS: LOSARTAN POTASSIUM 25 MG TAB PO SCH (20:14)
[2023-11-21] MEDS: AMOXICILLIN/CLAVULANATE 875 MG TAB PO SCH (20:15)
[2023-11-22] MEDS: PANTOprazole 40 MG TAB PO SCH (06:24)
[2023-11-22 06:28] LABS: Basophils # (auto) 0.04 K/uL (0.00-0.20); Basophils % (auto) 0.7 %; Eosinophils # (auto) 0.23 K/uL (0.00-0.50); Eosinophils % (auto) 4.1 %; Hematocrit (blood only) 43.7 % (42.0-52.0); Hemoglobin 14.8 g/dl (14.0-18.0); Immature Granulocytes # (auto) 0.03 K/uL (0.01-0.20); Immature Granulocytes % (auto) 0.5 %; Lymphocytes # (auto) 1.47 K/uL (1.20-3.40); Lymphocytes % (auto) 26.3 %; Mean Corpuscular Hemoglobin 29.2 pg (25.0-34.0); Mean Corpuscular Hgb Conc 33.9 g/dL (32.0-36.0); Mean Corpuscular Volume 86.2 fL (80.0-100.0); Mean Platelet Volume 11.7 fL (9.4-12.4); Monocytes # (auto) 0.49 K/uL (0.11-0.59); Monocytes % (auto) 8.8 %; Neutrophils # (auto) 3.32 K/uL (1.40-6.50); Neutrophils % (auto) 59.6 %; Platelet Count 141 K/uL (130-400); RDW Coefficient of Variation 12.9 % (11.5-14.5); RDW Standard Deviation 40.2 fL (36.4-46.3); Red Blood Count 5.07 M/uL (4.70-6.10); White Blood Count 5.58 K/ul (4.8-10.8)
[2023-11-22 06:39] LABS: BUN Creatinine Ratio 14.9 (10-20); Calcium 8.4 mg/dl (8.6-10.3); Creatinine Clr Calc Pharmacy 173.5 ml/min; Est GFR (African American) 135.4 ml/min; Est GFR (Non-African American) 116.9 ml/min; Potassium 3.3 mmol/L (3.5-5.1)
[2023-11-22 06:53] LABS: INR 0.9 (0.9-1.1); Prothrombin Time 10.3 Seconds (9.0-12.0)
[2023-11-22] MEDS ORDERED: POTASSIUM CHLORIDE CRTAB 20 MEQ TABCR PO STA (07:32)
[2023-11-22] MEDS: ATORVASTATIN 40 MG TAB PO SCH (08:56)
[2023-11-22] MEDS: ADVANCED PROBIOTIC 1250 MG CAPSULE PO SCH (08:56)
[2023-11-22] MEDS: MULTIVITAMIN TAB PO SCH (08:56)
[2023-11-22] MEDS: GABAPENTIN 100 MG CAP PO SCH ×3 (08:56→20:36)
[2023-11-22] MEDS: FOLIC ACID 1 MG TAB PO SCH (08:56)
[2023-11-22] MEDS: AMOXICILLIN/CLAVULANATE 875 MG TAB PO SCH ×2 (08:56→17:43)
[2023-11-22] MEDS: METOPROLOL SUCC 50MG EXT REL TAB PO SCH (08:57)
[2023-11-22] MEDS: MAGNESIUM OXIDE 400 MG TAB PO SCH (08:57)
[2023-11-22] MEDS: POLYETHYLENE (MIRALAX) 17 GM PACK PO SCH (08:57)
[2023-11-22] MEDS: THIAMINE HCL 100 MG TAB PO SCH (08:57)
[2023-11-22] MEDS: INSULIN ASPART PER UNIT CHARGE SC SCH ×4 (09:02→20:30)
[2023-11-22] MEDS: LANTUS PER UNIT CHARGE SQ SCH (09:03)
[2023-11-22] MEDS: FLUTICASONE/VILANTEROL 100/25MCG 14 PUFFS/INHALER INH SCH (09:52)
[2023-11-22] MEDS: ENOXAPARIN 100 MG/1ML SYR SQ SCH ×2 (10:42→20:37)
[2023-11-22] MEDS: COLLAGENASE OINT 30 GM TUBE EXT SCH (10:43)
--- NOTE | 2023-11-22 10:44 | Pharmacy Report ---
Pharmacy Glycemic Short Note 2 - Date of Service November 22, 2023 - Glycemic Short BSG Results (Last 24 hours): 11/21/23 11/21/23 11/21/23 12:25 17:02 20:01 Glucose POC Glucose 144 H 103 H 179 H 11/22/23 11/22/23 05:36 08:20 Glucose 163 H POC Glucose 151 H OUTPATIENT ANTIDIABETIC REGIMEN: * NPH 18 units SC BID * Glipizide 5 mg PO daily * Reported non-compliance with medications due to affordability * HbA1c: 11.7% (11/19/23) ASSESSMENT: 11/22: * Man received 127 units of insulin yesterday (70 were basal) * He was switched from IV antibiotics and heparin drip to oral Augmentin and L ovenox. * Fasting BSG this AM acceptable, change to insulin NPH to better mimic discharge basal dosing plan from CDE. Allow for lower dosing if BSGs within goal range. * BSGs well controlled yesterday with Novolog, will empirically loosen with dinner to account for additional prandial coverage from NPH and monitor for trends. 11/20: * Patient received 137 units of insulin yesterday. BSGs were: [phone] mg/dL. Anion gap remains closed based on AM blood work. * Given only slight improvement in fasting BSG today, 243 mg/dL, as well as receiving ~140 units of insulin yesterday without adequate glycemic control, will significantly increase basal regimen today. Plan is to base basal/bolus regimen as 50/50 split of yesterday's total daily dose. * Bolus regimen was tightened throughout the day yesterday. Will not make any adjustments to bolus regimen today given significant increase in basal dose. May require tightening tomorrow if postprandials remain uncontrolled. 11/19: * ILEANA is a 43 year old male who presented to ED w/ complaints of n&V and chest/abdominal pain x 1 day * Initial labs suggestive of mild DKA w/ anion gap of 23, serum bicarbonate 20 mmol/L, VBG pH 7.34 * Decision was made last evening to defer insulin infusion and manage with SC basal/bolus insulin * Pharmacy consulted for glycemic management this morning - discussed with hospitalist and will continue to manage with SC for now since anion gap is now closed w/ serum bicarbonate of 25 mmol/L and VBG pH of 7.39. * Hyperglycemic at lunch, but this is likely explained by AM insulin not being given until 1054. Will give one-time IV insulin bolus and additional basal. * Patient reports non-compliance with home medications, which provides context for elevated HbA1c. Given basal deficiency, will load with full weight-based, stress 2.5 Lantus dosing of 40 units today w/ aggressive Novolog. * LR infusing @100 mL/hr PLAN FOR INPATIENT GLYCEMIC CONTROL: * Hold outpatient oral diabetes medications * Basal insulin * Lantus 25-35 units SC BID (25 units if less than 140mg/dL, 35 units if BSG is 140mg/dL or greater) * Bolus insulin * NovoLog per scale ACHS or Q6hrs while NPO * Goal Range: Low 110 mg/dL - High 140 mg/dL * Correction Factor: 15 mg/dL/unit * Nutritional / Prandial insulin per carb ratio of 1 unit per 4 grams CHO consumed
[2023-11-22] MEDS: oxyCODONE HCL IR 5 MG TAB (IMMEDIATE RELEASE) PO PRN ×2 (12:31→20:35)
[2023-11-22] MEDS ORDERED: WARFARIN SOD 5 MG TAB PO SCH (16:00)
--- NOTE | 2023-11-22 16:50 | Hospitalist Progress Note ---
Date of Service November 22, 2023 Assessment & Plan (1) Hyperglycemic crisis in diabetes mellitus: Plan: Mr. Day is a 43 year old gentleman with medical history significant for chronic systolic heart failure secondary to nonischemic cardiomyopathy (EF 35 to 39%, TTE 2022), history congenital heart surgery, hypertension, hyperlipidemia, history unprovoked PE status post Xarelto, DM2 insulin requiring, GERD, gastroparesis as per records, chronic LLE wound, alcohol abuse as per records, past tobacco abuse, medical noncompliance as per records who is admitted on - 11/19 due to DKA. Patient with lapse in insurance and unable to obtain home prescriptions due to financial constraints. #Uncontrolled DMTII on insulin #DKA iso medication noncompliance resolved --GAP closed 11/19 -- transitioned to Lantus and ISS DM educator following recommend Insulin Novolin 70/30 from [facility] upon discharge due to financial constraints please refer to DM educator notes for full recommendations #LLE cellulitis/history of chronic wound -- surrounding erythema, tenderness improving -- blood cultures : negative -- Superficial wound cultures: MSSA -- On 3 days of Cefepime + Doxy -- ID consulted -On Augmentin 875 mg BID x 14 days -- director of vital statistics consulted #Mobile thrombus in left popliteus muscle #Prior unprovoked PE status post Xarelto -- CT chest: 1. No acute pulmonary emboli identified. 2. Minimal residual nonocclusive chronic pulmonary emboli within the right lower lobe. -- flow nurse consulted, recommend prison anticoagulation Follow up up with Hematology clinic for hypercoagulable work up -- Started on lovenox bridge and warfarin INR daily (coumadin selected for press tender long goods anticoagulation given patient's financial situation/absence of health insurance presently) #Chronic heart failure with reduced ejection fraction secondary to nonischemic cardiomyopathy (EF 35 to 39%, TTE 2022) #hypertension -- euvolemic --Replace lytes prn -- increase Losartan to 50mg po daily #hyperlipidemia on statin Rx, continue when able to financially procure will priortize #GERD/gastroparesis as per records #alcohol abuse as per records, patient denies recent EtOH intake and abuse issues #past tobacco abuse encourage continued cessation DVT prophylaxis per Lovenox subcutaneous Full code Disposition anticipate d/c home when INR stable will need close outpatient ff up case management requested to assist patient with application for Medical Assistance program Admission and Anticipated Discharge Date Admission Date: November 19, 2023 Subjective NAEO Denies any concerns at time of exam, including chest pain palpitations, SOB or uncontrolled pain Physical Exam Constitutional: WD/WN, vitals as above sitting upright in bed watching TV Respiratory: normal respiratory effort, lungs clear to auscultation Cardiovascular: RRR, no murmur, no edema Musculoskeletal: no cyanosis or clubbing, extremities motor strength 5/5 Skin: bandage over LLE wound Neurologic: PERRL, EOMI, accommodation nl, no face palsy, no dysarthria Results & Data Results & Data Vital Signs (Past 12 Hours) Vital Signs Temp Pulse Pulse Resp BP BP Pulse Ox 11/22/23 16:00 71 11/22/23 11:56 36.5 C 64 16 154/97 H 96 11/22/23 08:32 36.4 C L 60 16 147/99 H 147/99 H 95 11/22/23 05:50 49 L O2 Del Method 11/22/23 16:00 11/22/23 11:56 Room Air 11/22/23 08:32 Room Air 11/22/23 05:50 Laboratory Results Short CBC 11/22/23 Range/Units 05:36 WBC 5.58 (4.8-10.8) K/ul Hgb 14.8 (14.0-18.0) g/dl Hct 43.7 (42.0-52.0) % Plt Count 141 (130-400) K/uL BMP 11/22/23 05:36 Sodium 138 Potassium 3.3 L Chloride 105 Carbon Dioxide 25 BUN 10 Creatinine 0.67 Glucose 163 H Calcium 8.4 L Medications Administered Home Medications Medication Instructions Recorded Confirmed Last Taken atorvastatin 40 mg tablet 40 mg PO QAM 06/23/21 11/19/23 11/18/23 gabapentin 100 mg capsule 100 mg PO TID 06/23/21 11/19/23 11/18/23 12:00 glipizide 5 mg tablet, extended 5 mg PO QAM 06/23/21 11/19/23 11/18/23 release 24 hr magnesium oxide 400 mg (241.3 mg 400 mg PO QAM #14 tabs 05/19/22 11/19/23 11/18/23 magnesium) tablet thiamine HCl (vitamin B1) 50 mg 25 mg (1/2 x 50 mg) PO DAILY #15 05/19/22 11/19/23 Unknown tablet tabs metoprolol succinate 100 mg 100 mg PO DAILY #30 tabs 09/19/22 11/19/23 11/18/23 tablet,extended release 24 hr budesonide-formoterol HFA 80 2 puff inhalation BID 11/19/23 11/19/23 11/18/23 mcg-4.5 mcg/actuation aerosol inhaler cyclobenzaprine 10 mg tablet 10 mg PO HS PRN Muscle Spasm 11/19/23 11/19/23 Unknown hydrochlorothiazide 25 mg tablet 25 mg PO 1XD 11/19/23 11/19/23 11/18/23 insulin NPH isoph U-100 human 100 18 unit subcut 2XD 11/19/23 11/19/23 11/18/23 unit/mL subcutaneous suspension (Novolin N NPH U-100 Insulin isophane) losartan 25 mg tablet (Cozaar) 25 mg PO 1XD 11/19/23 11/19/23 11/18/23 pantoprazole 40 mg tablet,delayed 40 mg PO DAILY 11/19/23 11/19/23 11/18/23 release Active Medications Generic Name Dose Route Start Last Admin Trade Name Rjq PRN Reason Stop Dose Admin Acetaminophen 650 mg 11/19/23 04:03 11/21/23 08:15 Acetaminophen 325 Mg Tab PO 12/19/23 04:02 650 mg Q4H PRN Administration Pain or Fever Amoxicillin/Clavulanate Potassium 1 tab 11/21/23 21:00 11/22/23 08:56 Amoxicillin/Clavulanate 875 Mg Tab PO 11/28/23 20:59 1 tab BIDM IVAN Administration Protocol Atorvastatin Calcium 40 mg 11/19/23 09:00 11/22/23 08:56 Atorvastatin 40 Mg Tab PO 12/19/23 08:59 40 mg QAM IVAN Administration Collagenase 1 appln 11/21/23 14:45 11/22/23 10:43 Collagenase Oint 30 Gm Tube EXT 12/21/23 14:44 1 appln DAILY IVAN Administration Enoxaparin Sodium 100 mg 11/21/23 09:15 11/22/23 10:42 Enoxaparin 100 Mg/1ml Syr SQ 12/21/23 09:14 100 mg Q12H IVAN Administration Fluticasone/Vilanterol 1 puffs 11/19/23 09:00 11/22/23 09:52 Fluticasone/Vilanterol 100/25mcg 14 Puffs/Inhaler INH 12/19/23 08:59 Not Given DAILY IVAN Folic Acid 1 mg 11/19/23 09:00 11/22/23 08:56 Folic Acid 1 Mg Tab PO 12/19/23 08:59 1 mg QAM IVAN Administration Gabapentin 100 mg 11/19/23 09:00 11/22/23 13:59 Gabapentin 100 Mg Cap PO 12/19/23 08:59 100 mg TID IVAN Administration Insulin Aspart 0 units 11/19/23 12:38 11/22/23 12:51 Insulin Aspart Per Unit Charge SC 12/19/23 12:37 15 units ACHS IVAN Administration Protocol Lactobacillus Acidophilus 2 cap 11/21/23 09:30 11/22/23 08:56 Advanced Probiotic 1250 Mg Capsule PO 12/21/23 09:29 2 cap DAILY IVAN Administration Losartan Potassium 25 mg 11/19/23 21:00 11/21/23 20:14 Losartan Potassium 25 Mg Tab PO 12/19/23 20:59 25 mg HS IVAN Administration Magnesium Hydroxide 30 ml 11/20/23 17:35 11/20/23 18:06 Magnesium Hydroxide Susp 30 Ml Udc PO 12/20/23 17:34 30 ml Q6H PRN Administration Constipation Magnesium Oxide 400 mg 11/19/23 09:00 11/22/23 08:57 Magnesium Oxide 400 Mg Tab PO 12/19/23 08:59 400 mg QAM IVAN Administration Melatonin 3 mg 11/19/23 23:56 11/20/23 21:12 Melatonin 3 Mg Tab PO 12/19/23 23:55 3 mg HS PRN Administration Sleep Metoprolol Succinate 100 mg 11/19/23 09:00 11/22/23 08:57 Metoprolol Succ 50mg Ext Rel Tab PO 12/19/23 08:59 100 mg DAILY IVAN Administration Multivitamins 1 tab 11/19/23 09:00 11/22/23 08:56 Multivitamin Tab PO 12/19/23 08:59 1 tab QAM IVAN Administration Oxycodone HCl 5 mg 11/19/23 02:30 11/22/23 12:31 Oxycodone Hcl Ir 5 Mg Tab (Immediate Release) PO 12/03/23 02:29 5 mg Q4H PRN Administration Pain Pantoprazole Sodium 40 mg 11/19/23 06:30 11/22/23 06:24 Pantoprazole 40 Mg Tab PO 12/19/23 06:29 40 mg DAILYBB IVAN Administration Polyethylene Glycol 17 gm 11/20/23 17:45 11/22/23 08:57 Polyethylene (Miralax) 17 Gm Pack PO 12/20/23 17:44 17 gm DAILY IVAN Administration Thiamine HCl 100 mg 11/20/23 09:00 11/22/23 08:57 Thiamine Hcl 100 Mg Tab PO 12/20/23 08:59 100 mg QAM IVAN Administration
[2023-11-22] MEDS: INSULIN HUMAN NPH SC SCH (17:48)
[2023-11-22] MEDS: MELATONIN 3 MG TAB PO PRN (20:35)
[2023-11-22] MEDS: LOSARTAN POTASSIUM 50 MG TAB PO SCH (20:37)
[2023-11-22] MEDS: ACETAMINOPHEN 325 MG TAB PO PRN (21:44)
[2023-11-23] MEDS: PANTOprazole 40 MG TAB PO SCH (05:32)
[2023-11-23 06:34] LABS: Basophils # (auto) 0.04 K/uL (0.00-0.20); Basophils % (auto) 0.7 %; Eosinophils # (auto) 0.19 K/uL (0.00-0.50); Eosinophils % (auto) 3.2 %; Hematocrit (blood only) 46.1 % (42.0-52.0); Hemoglobin 16.2 g/dl (14.0-18.0); Immature Granulocytes # (auto) 0.06 K/uL (0.01-0.20); Lymphocytes # (auto) 1.68 K/uL (1.20-3.40); Lymphocytes % (auto) 28.5 %; Mean Corpuscular Hemoglobin 30.4 pg (25.0-34.0); Mean Corpuscular Hgb Conc 35.1 g/dL (32.0-36.0); Mean Corpuscular Volume 86.5 fL (80.0-100.0); Mean Platelet Volume 11.5 fL (9.4-12.4); Monocytes # (auto) 0.44 K/uL (0.11-0.59); Monocytes % (auto) 7.5 %; Neutrophils # (auto) 3.48 K/uL (1.40-6.50); Neutrophils % (auto) 59.1 %; Platelet Count 179 K/uL (130-400); RDW Coefficient of Variation 13.2 % (11.5-14.5); RDW Standard Deviation 40.9 fL (36.4-46.3); Red Blood Count 5.33 M/uL (4.70-6.10); White Blood Count 5.89 K/ul (4.8-10.8)
[2023-11-23 06:43] LABS: BUN Creatinine Ratio 15.6 (10-20); Creatinine Clr Calc Pharmacy 181.6 ml/min; Est GFR (Non-African American) 119.1 ml/min; Potassium 3.9 mmol/L (3.5-5.1)
[2023-11-23 06:55] LABS: INR 0.9 (0.9-1.1); Prothrombin Time 10.1 Seconds (9.0-12.0)
[2023-11-23] MEDS: ATORVASTATIN 40 MG TAB PO SCH (08:04)
[2023-11-23] MEDS: ADVANCED PROBIOTIC 1250 MG CAPSULE PO SCH (08:04)
[2023-11-23] MEDS: THIAMINE HCL 100 MG TAB PO SCH (08:04)
[2023-11-23] MEDS: MULTIVITAMIN TAB PO SCH (08:04)
[2023-11-23] MEDS: METOPROLOL SUCC 50MG EXT REL TAB PO SCH (08:04)
[2023-11-23] MEDS: MAGNESIUM OXIDE 400 MG TAB PO SCH (08:04)
[2023-11-23] MEDS: FOLIC ACID 1 MG TAB PO SCH (08:04)
[2023-11-23] MEDS: AMOXICILLIN/CLAVULANATE 875 MG TAB PO SCH ×2 (08:04→17:30)
[2023-11-23] MEDS: GABAPENTIN 100 MG CAP PO SCH ×3 (08:05→20:51)
[2023-11-23] MEDS: COLLAGENASE OINT 30 GM TUBE EXT SCH (08:06)
[2023-11-23] MEDS: POLYETHYLENE (MIRALAX) 17 GM PACK PO SCH (08:12)
[2023-11-23] MEDS: FLUTICASONE/VILANTEROL 100/25MCG 14 PUFFS/INHALER INH SCH (08:55)
[2023-11-23] MEDS: ENOXAPARIN 100 MG/1ML SYR SQ SCH ×2 (09:09→20:51)
[2023-11-23] MEDS: INSULIN ASPART PER UNIT CHARGE SC SCH ×4 (10:17→20:51)
[2023-11-23] MEDS: INSULIN HUMAN NPH SC SCH ×2 (11:04→17:33)
--- NOTE | 2023-11-23 15:57 | Hospitalist Progress Note ---
Date of Service November 23, 2023 Assessment & Plan (1) Hyperglycemic crisis in diabetes mellitus: Plan: Mr. Day is a 43 year old gentleman with medical history significant for chronic systolic heart failure secondary to nonischemic cardiomyopathy (EF 35 to 39%, TTE 2022), history congenital heart surgery, hypertension, hyperlipidemia, history unprovoked PE status post Xarelto, DM2 insulin requiring, GERD, gastroparesis as per records, chronic LLE wound, alcohol abuse as per records, past tobacco abuse, medical noncompliance as per records who is admitted on - 11/19 due to DKA. Patient with lapse in insurance and unable to obtain home prescriptions due to financial constraints. #Uncontrolled DMTII on insulin #DKA iso medication noncompliance resolved --GAP closed 11/19 -- transitioned to Lantus and ISS DM educator following recommend Insulin Novolin 70/30 from [facility] upon discharge due to financial constraints please refer to DM educator notes for full recommendations #LLE cellulitis/history of chronic wound -- surrounding erythema, tenderness improving -- blood cultures : negative -- Superficial wound cultures: MSSA -- On 3 days of Cefepime + Doxy -- ID consulted -On Augmentin 875 mg BID x 14 days 12/05 EOT -- operating room surgical technologist consulted #Mobile thrombus in left popliteus muscle #Prior unprovoked PE status post Xarelto -- CT chest: 1. No acute pulmonary emboli identified. 2. Minimal residual nonocclusive chronic pulmonary emboli within the right lower lobe. -- defense analyst consulted, recommend care home anticoagulation Follow up up with Hematology clinic for hypercoagulable work up -- Continue on lovenox bridge and warfarin INR daily, INR 0.9--Increased Coumadin 10mg this evenin (coumadin selected for parts counterman anticoagulation given patient's financial situation/absence of health insurance presently) #Chronic heart failure with reduced ejection fraction secondary to nonischemic cardiomyopathy (EF 35 to 39%, TTE 2022) #hypertension -- euvolemic --Replace lytes prn -- Continue Losartan to 50mg po daily, consider further increased base upon blood pressures contiue Metorpolol 100mg daily #hyperlipidemia on statin Rx, continue atorvastatin 40mg #GERD/gastroparesis as per records #alcohol abuse as per records, patient denies recent EtOH intake and abuse issues #past tobacco abuse encourage continued cessation DVT prophylaxis per Lovenox subcutaneous Full code Disposition anticipate d/c home when INR stable will need close outpatient ff up case management requested to assist patient with application for Medical Assistance program Admission and Anticipated Discharge Date Admission Date: November 19, 2023 Subjective NAEO Patient reports ambulating halls and denies any chest pain, SOB, palpitations Requesting shower Physical Exam Constitutional: WD/WN, vitals as above Respiratory: normal respiratory effort, lungs clear to auscultation Cardiovascular: RRR, no murmur, no edema Gastrointestinal (Abdomen): normal bowel sounds, soft, nontender, no hepatosplenomegaly Results & Data Results & Data Vital Signs (Past 12 Hours) Vital Signs Temp Pulse Pulse Resp BP Pulse Ox O2 Del Method 11/23/23 12:09 36.8 C 69 18 141/95 H 95 Room Air 11/23/23 08:11 36.6 C 66 16 141/95 H 96 Room Air 11/23/23 06:00 64 Laboratory Results Short CBC 11/23/23 Range/Units 05:39 WBC 5.89 (4.8-10.8) K/ul Hgb 16.2 (14.0-18.0) g/dl Hct 46.1 (42.0-52.0) % Plt Count 179 (130-400) K/uL BMP 11/23/23 05:39 Sodium 139 Potassium 3.9 Chloride 105 Carbon Dioxide 26 BUN 10 Creatinine 0.64 Glucose 133 H Calcium 9.0 Medications Administered Home Medications Medication Instructions Recorded Confirmed Last Taken atorvastatin 40 mg tablet 40 mg PO QAM 06/23/21 11/19/23 11/18/23 gabapentin 100 mg capsule 100 mg PO TID 06/23/21 11/19/23 11/18/23 12:00 glipizide 5 mg tablet, extended 5 mg PO QAM 06/23/21 11/19/23 11/18/23 release 24 hr magnesium oxide 400 mg (241.3 mg 400 mg PO QAM #14 tabs 05/19/22 11/19/23 11/18/23 magnesium) tablet thiamine HCl (vitamin B1) 50 mg 25 mg (1/2 x 50 mg) PO DAILY #15 05/19/22 11/19/23 Unknown tablet tabs metoprolol succinate 100 mg 100 mg PO DAILY #30 tabs 09/19/22 11/19/23 11/18/23 tablet,extended release 24 hr budesonide-formoterol HFA 80 2 puff inhalation BID 11/19/23 11/19/23 11/18/23 mcg-4.5 mcg/actuation aerosol inhaler cyclobenzaprine 10 mg tablet 10 mg PO HS PRN Muscle Spasm 11/19/23 11/19/23 Unknown hydrochlorothiazide 25 mg tablet 25 mg PO 1XD 11/19/23 11/19/23 11/18/23 insulin NPH isoph U-100 human 100 18 unit subcut 2XD 11/19/23 11/19/23 11/18/23 unit/mL subcutaneous suspension (Novolin N NPH U-100 Insulin isophane) losartan 25 mg tablet (Cozaar) 25 mg PO 1XD 11/19/23 11/19/23 11/18/23 pantoprazole 40 mg tablet,delayed 40 mg PO DAILY 11/19/23 11/19/23 11/18/23 release Active Medications Generic Name Dose Route Start Last Admin Trade Name Freq PRN Reason Stop Dose Admin Acetaminophen 650 mg 11/19/23 04:03 11/22/23 21:44 Acetaminophen 325 Mg Tab PO 12/19/23 04:02 650 mg Q4H PRN Administration Pain or Fever Amoxicillin/Clavulanate Potassium 1 tab 11/21/23 21:00 11/23/23 08:04 Amoxicillin/Clavulanate 875 Mg Tab PO 11/28/23 20:59 1 tab BIDM IVAN Administration Protocol Atorvastatin Calcium 40 mg 11/19/23 09:00 11/23/23 08:04 Atorvastatin 40 Mg Tab PO 12/19/23 08:59 40 mg QAM IVAN Administration Collagenase 1 appln 11/21/23 14:45 11/23/23 08:06 Collagenase Oint 30 Gm Tube EXT 12/21/23 14:44 1 appln DAILY IVAN Administration Enoxaparin Sodium 100 mg 11/21/23 09:15 11/23/23 09:09 Enoxaparin 100 Mg/1ml Syr SQ 12/21/23 09:14 100 mg Q12H IVAN Administration Fluticasone/Vilanterol 1 puffs 11/19/23 09:00 11/23/23 08:55 Fluticasone/Vilanterol 100/25mcg 14 Puffs/Inhaler INH 12/19/23 08:59 Not Given DAILY IVAN Folic Acid 1 mg 11/19/23 09:00 11/23/23 08:04 Folic Acid 1 Mg Tab PO 12/19/23 08:59 1 mg QAM IVAN Administration Gabapentin 100 mg 11/19/23 09:00 11/23/23 13:36 Gabapentin 100 Mg Cap PO 12/19/23 08:59 100 mg TID IVAN Administration Insulin Aspart 0 units 11/19/23 12:38 11/23/23 13:35 Insulin Aspart Per Unit Charge SC 12/19/23 12:37 14 units ACHS IVAN Administration Protocol Insulin Human NPH 0 units 11/22/23 17:00 11/23/23 11:04 Insulin Human Nph SC 12/22/23 16:59 35 units BIDM IVAN Administration Protocol Lactobacillus Acidophilus 2 cap 11/21/23 09:30 11/23/23 08:04 Advanced Probiotic 1250 Mg Capsule PO 12/21/23 09:29 2 cap DAILY IVAN Administration Losartan Potassium 50 mg 11/22/23 21:00 11/22/23 20:37 Losartan Potassium 50 Mg Tab PO 12/22/23 20:59 50 mg HS IVAN Administration Magnesium Hydroxide 30 ml 11/20/23 17:35 11/20/23 18:06 Magnesium Hydroxide Susp 30 Ml Udc PO 12/20/23 17:34 30 ml Q6H PRN Administration Constipation Magnesium Oxide 400 mg 11/19/23 09:00 11/23/23 08:04 Magnesium Oxide 400 Mg Tab PO 12/19/23 08:59 400 mg QAM IVAN Administration Melatonin 3 mg 11/19/23 23:56 11/22/23 20:35 Melatonin 3 Mg Tab PO 12/19/23 23:55 3 mg HS PRN Administration Sleep Metoprolol Succinate 100 mg 11/19/23 09:00 11/23/23 08:04 Metoprolol Succ 50mg Ext Rel Tab PO 12/19/23 08:59 100 mg DAILY IVAN Administration Multivitamins 1 tab 11/19/23 09:00 11/23/23 08:04 Multivitamin Tab PO 12/19/23 08:59 1 tab QAM IVAN Administration Oxycodone HCl 5 mg 11/19/23 02:30 11/22/23 20:35 Oxycodone Hcl Ir 5 Mg Tab (Immediate Release) PO 12/03/23 02:29 5 mg Q4H PRN Administration Pain Pantoprazole Sodium 40 mg 11/19/23 06:30 11/23/23 05:32 Pantoprazole 40 Mg Tab PO 12/19/23 06:29 40 mg DAILYBB IVAN Administration Polyethylene Glycol 17 gm 11/20/23 17:45 11/23/23 08:12 Polyethylene (Miralax) 17 Gm Pack PO 12/20/23 17:44 17 gm DAILY IVAN Administration Thiamine HCl 100 mg 11/20/23 09:00 11/23/23 08:04 Thiamine Hcl 100 Mg Tab PO 12/20/23 08:59 100 mg QAM IVAN Administration
[2023-11-23] MEDS ORDERED: WARFARIN SOD 10 MG TAB PO SCH (16:00)
[2023-11-23] MEDS: MELATONIN 3 MG TAB PO PRN (20:50)
[2023-11-23] MEDS: ACETAMINOPHEN 325 MG TAB PO PRN (20:50)
[2023-11-23] MEDS: LOSARTAN POTASSIUM 50 MG TAB PO SCH (20:51)
[2023-11-24] MEDS: PANTOprazole 40 MG TAB PO SCH (05:45)
[2023-11-24 06:24] LABS: Basophils # (auto) 0.02 K/uL (0.00-0.20); Basophils % (auto) 0.4 %; Eosinophils # (auto) 0.16 K/uL (0.00-0.50); Eosinophils % (auto) 2.8 %; Hematocrit (blood only) 43.7 % (42.0-52.0); Immature Granulocytes # (auto) 0.05 K/uL (0.01-0.20); Immature Granulocytes % (auto) 0.9 %; Lymphocytes # (auto) 1.41 K/uL (1.20-3.40); Lymphocytes % (auto) 24.9 %; Mean Corpuscular Hemoglobin 29.9 pg (25.0-34.0); Mean Corpuscular Hgb Conc 34.3 g/dL (32.0-36.0); Mean Corpuscular Volume 87.1 fL (80.0-100.0); Mean Platelet Volume 11.8 fL (9.4-12.4); Monocytes # (auto) 0.37 K/uL (0.11-0.59); Monocytes % (auto) 6.5 %; Neutrophils # (auto) 3.66 K/uL (1.40-6.50); Neutrophils % (auto) 64.5 %; Platelet Count 162 K/uL (130-400); RDW Coefficient of Variation 13.1 % (11.5-14.5); RDW Standard Deviation 41.1 fL (36.4-46.3); Red Blood Count 5.02 M/uL (4.70-6.10); White Blood Count 5.67 K/ul (4.8-10.8)
[2023-11-24 06:34] LABS: Creatinine Clr Calc Pharmacy 135.4 ml/min; Est GFR (African American) 122.2 ml/min; Est GFR (Non-African American) 105.5 ml/min
[2023-11-24 06:44] LABS: INR 1.4 (0.9-1.1); Prothrombin Time 14.9 Seconds (9.0-12.0)
[2023-11-24] MEDS: INSULIN ASPART PER UNIT CHARGE SC SCH (08:50)
[2023-11-24] MEDS: INSULIN HUMAN NPH SC SCH (08:50)
[2023-11-24] MEDS: MAGNESIUM OXIDE 400 MG TAB PO SCH (08:51)
[2023-11-24] MEDS: AMOXICILLIN/CLAVULANATE 875 MG TAB PO SCH (08:51)
[2023-11-24] MEDS: ATORVASTATIN 40 MG TAB PO SCH (08:51)
[2023-11-24] MEDS: POLYETHYLENE (MIRALAX) 17 GM PACK PO SCH (08:51)
[2023-11-24] MEDS: MULTIVITAMIN TAB PO SCH (08:51)
[2023-11-24] MEDS: GABAPENTIN 100 MG CAP PO SCH (08:51)
[2023-11-24] MEDS: THIAMINE HCL 100 MG TAB PO SCH (08:51)
[2023-11-24] MEDS: FOLIC ACID 1 MG TAB PO SCH (08:51)
[2023-11-24] MEDS: COLLAGENASE OINT 30 GM TUBE EXT SCH (08:52)
[2023-11-24] MEDS: ENOXAPARIN 100 MG/1ML SYR SQ SCH (08:52)
[2023-11-24] MEDS: METOPROLOL SUCC 50MG EXT REL TAB PO SCH (08:52)
[2023-11-24] MEDS: FLUTICASONE/VILANTEROL 100/25MCG 14 PUFFS/INHALER INH SCH (08:53)
[2023-11-24] MEDS: ACETAMINOPHEN 325 MG TAB PO PRN (09:00)
--- NOTE | 2023-11-24 10:16 | Pharmacy Report ---
Pharmacy Glycemic Short Note 2 - Date of Service November 24, 2023 - Glycemic Short BSG Results (Last 24 hours): 11/23/23 11/23/23 11/23/23 12:28 17:15 20:46 Glucose POC Glucose 153 H 127 H 87 11/24/23 11/24/23 05:43 08:07 Glucose 136 H POC Glucose 122 H OUTPATIENT ANTIDIABETIC REGIMEN: * NPH 18 units SC BID * Glipizide 5 mg PO daily * Reported non-compliance with medications due to affordability * HbA1c: 11.7% (11/19/23) ASSESSMENT: 11/24: * Man received 97 units of insulin yesterday (60 were basal) * Fasting BSG this AM within goal range, BSGs tend to trend down throughout the day, will continue current regimen for now * Novolog appears to be adequately covering and correcting, will loosen carbohydrate coverage slightly due to try and prevent downtrending in the evening 11/22: * Man received 127 units of insulin yesterday (70 were basal) * He was switched from IV antibiotics and heparin drip to oral Augmentin and Lovenox. * Fasting BSG this AM acceptable, change to insulin NPH to better mimic discharge basal dosing plan from CDE. Allow for lower dosing if BSGs within goal range. * BSGs well controlled yesterday with Novolog, will empirically loosen with dinner to account for additional prandial coverage from NPH and monitor for trends. 11/20: * Patient received 137 units of insulin yesterday. BSGs were: [phone] mg/dL. Anion gap remains closed based on AM blood work. * Given only slight improvement in fasting BSG today, 243 mg/dL, as well as receiving ~140 units of insulin yesterday without adequate glycemic control, will significantly increase basal regimen today. Plan is to base basal/bolus regimen as 50/50 split of yesterday's total daily dose. * Bolus regimen was tightened throughout the day yesterday. Will not make any adjustments to bolus regimen today given significant increase in basal dose. May require tightening tomorrow if postprandials remain uncontrolled. 11/19: * ILEANA is a 43 year old male who presented to ED w/ complaints of n&V and chest/abdominal pain x 1 day * Initial labs suggestive of mild DKA w/ anion gap of 23, serum bicarbonate 20 mmol/L, VBG pH 7.34 * Decision was made last evening to defer insulin infusion and manage with SC basal/bolus insulin * Pharmacy consulted for glycemic management this morning - discussed with hospitalist and will continue to manage with SC for now since anion gap is now closed w/ serum bicarbonate of 25 mmol/L and VBG pH of 7.39. * Hyperglycemic at lunch, but this is likely explained by AM insulin not being given until 1054. Will give one-time IV insulin bolus and additional basal. * Patient reports non-compliance with home medications, which provides context for elevated HbA1c. Given basal deficiency, will load with full weight-based, stress 2.5 Lantus dosing of 40 units today w/ aggressive Novolog. * LR infusing @100 mL/hr PLAN FOR INPATIENT GLYCEMIC CONTROL: * Hold outpatient oral diabetes medications * Basal insulin * Lantus 25-35 units SC BID (25 units if less than 140mg/dL, 35 units if BSG is 140mg/dL or greater) * Bolus insulin * NovoLog per scale ACHS or Q6hrs while NPO * Goal Range: Low 110 mg/dL - High 140 mg/dL * Correction Factor: 15 mg/dL/unit * Nutritional / Prandial insulin per carb ratio of 1 unit per 4.5 grams CHO consumed
[2023-11-24] MEDS: ADVANCED PROBIOTIC 1250 MG CAPSULE PO SCH (10:45)
[2023-11-24] MEDS ORDERED: WARFARIN SOD 3 MG TAB PO SCH (16:00)
--- NOTE | 2023-11-24 17:11 | Discharge Summary ---
Discharge Summary Date of Service November 24, 2023 Notes For Next Care Provider Against Medical Advice Medication Changes From Visit -Novolin 70/30, 25U BID -Losartan 50mg daily -Coumadin 3mg daily, lovenox bridge Despite AMA status, prescriptions were sent given concern for patient's status and to ensure medical treatment provided despite patient's despite to leave AMA Admission HPI Per Admitting Provider History obtained from patient and records. Medical history significant for chronic systolic heart failure secondary to nonischemic cardiomyopathy (EF 35 to 39%, TTE 2022), history congenital heart surgery, hypertension, hyperlipidemia, history unprovoked PE status post Xarelto, DM2 insulin requiring, GERD, gastroparesis as per records, chronic LLE wound, alcohol abuse as per records, past tobacco abuse, medical noncompliance as per records. Last confinement 2021 for unprovoked pulmonary thromboembolism. Patient completed Xarelto course. Patient having issues procuring home medications (Entresto, insulin) the last couple of months due to being out of work. Erratic blood sugar checks at home. Patient cannot give exact numbers on query. 2 weeks ago, patient noted worsening pain and redness on chronic sore on left leg which she has had for about 2 years associated with purulent drainage. No fever, no chills. Yesterday, patient noted achy abdominal pain going to the chest associated with nausea and multiple episodes of bilious emesis. Denies constipation, diarrhea, headache symptoms. No shortness of breath. SBP 160s upon arrival at the ER. IV Ceftriaxone administered at the ER. Medical History as above Surgical History : VSD surgery Family History : DM Personal/Social history : Past tobacco abuse, alcohol abuse as per records which patient denies, currently unemployed, applying for disability Admission Exam Per Admitting Provider GENERAL: Slightly uncomfortable, actively vomiting at time of exam, obese, looks older than stated age no respiratory distress SKIN: Normal color, warm HEENT: [place] palpebral conjunctivae, no ptosis, dry buccal mucosa NECK : Supple, no tenderness CHEST : CTA, no tenderness HEART : RRR, no obvious murmurs ABDOMEN: Some distention, minimal epigastric tenderness EXTREMITIES : Minimal LLE swelling with necrotic wound, no gross purulence noted, minimal LLE tenderness, no other conspicuous deformities noted NEUROLOGIC : Coherent, no facial asymmetry, no other gross focality Principal Dx & Hospital Course #1 = Principal Diagnosis (1) Hyperglycemic crisis in diabetes mellitus: Mr. Day is a 43 year old gentleman with medical history significant for chronic systolic heart failure secondary to nonischemic cardiomyopathy (EF 35 to 39%, TTE 2022), history congenital heart surgery, hypertension, hyperlipidemia, history unprovoked PE status post Xarelto, DM2 insulin requiring, GERD, gastroparesis as per records, chronic LLE wound, alcohol abuse as per records, past tobacco abuse, medical noncompliance as per records who is admitted on - 11/19 due to DKA. Patient with lapse in insurance and unable to obtain home prescriptions due to financial constraints. Patient's INR moved from 0.9 to 1.4, however, remained subtherapeutic. Patient stated that he no longer wished to stay. When asked why, patient stated that his "stomach feels inflamed and his guts are swollen." Various medical options were offer, including antigas, antispasmodics, laxatives/stimulants. Patient reported it would only feel better if he leaves. It was stressed that his INR was not ideal and as previous discussions were had, he was limited financially about his ability to afford lovenox. He stated lovenox doesn't "work well with his body." He verbalized understanding about leaving early, including clot formation/emboli and the sequelae of both. Prescriptions were sent to pharmacy to help ensure patient has options and follow up available. #Uncontrolled DMTII on insulin #DKA iso medication noncompliance resolved --GAP closed 11/19 -- transitioned to Lantus and ISS DM educator following =Novolin 70/30 vial and syringes sent to pharmacy #LLE cellulitis/history of chronic wound -- surrounding erythema, tenderness improving -- blood cultures : negative -- Superficial wound cultures: MSSA -- On 3 days of Cefepime + Doxy -- ID consulted -On Augmentin 875 mg BID x 14 days 12/05 EOT -Antibiotic sent to pharmacy, encouraged PCP follow up #Mobile thrombus in left popliteus muscle #Prior unprovoked PE status post Xarelto -- CT chest: 1. No acute pulmonary emboli identified. 2. Minimal residual nonocclusive chronic pulmonary emboli within the right lower lobe. -- junior technical writer consulted, recommend usp anticoagulation Follow up up with Hematology clinic for hypercoagulable work up -- Undergoing lovenox/coumadin bridge -Prescription sent to pharmacy, educated on importance of followup with PCP and anticoagulation clinic -Patient verbalized understanding #Chronic heart failure with reduced ejection fraction secondary to nonischemic cardiomyopathy (EF 35 to 39%, TTE 2022) #hypertension -- euvolemic --Replace lytes prn -- Continue Losartan to 50mg po daily, consider further increased base upon blood pressures contiue Metorpolol 100mg daily --Prescriptions for losartan and metoprolol were sent to help keep blood pressure control #hyperlipidemia on statin Rx, continue atorvastatin 40mg #GERD/gastroparesis as per records #alcohol abuse as per records, patient denies recent EtOH intake and abuse issues #past tobacco abuse encourage continued cessation Patient left AMA. It was encouraged and stress he stay for 24-48 hours given inability to properly bridge on coumadin and limitations at home. Patient verbalized risks and stated he will tow picker what he can. Discharge Exam Full physical exam was not completed 11/24 AMA Updated Medication List Medication Instructions Recorded Confirmed Type atorvastatin 40 mg tablet 40 mg PO QAM 06/23/21 11/19/23 History gabapentin 100 mg capsule 100 mg PO TID 06/23/21 11/19/23 History glipizide 5 mg tablet, extended 5 mg PO QAM 06/23/21 11/19/23 History release 24 hr magnesium oxide 400 mg (241.3 mg 400 mg PO QAM #14 tabs 05/19/22 11/19/23 Rx magnesium) tablet thiamine HCl (vitamin B1) 50 mg 25 mg (1/2 x 50 mg) PO DAILY #15 05/19/22 11/19/23 Rx tablet tabs cyclobenzaprine 10 mg tablet 10 mg PO HS PRN Muscle Spasm 11/19/23 11/19/23 History pantoprazole 40 mg tablet,delayed 40 mg PO DAILY 11/19/23 11/19/23 History release amoxicillin 875 mg-potassium 1 tab PO BIDM 11 days #22 tabs 11/24/23 Rx clavulanate 125 mg tablet enoxaparin 100 mg/mL subcutaneous 100 mg subcut Q12H #10 mL 11/24/23 Rx syringe insulin human U-100 NPH-regulr 25 unit (0.25 mL) subcut BID #2 11/24/23 Rx 70-30 mix 100 unit/mL subcutaneous vials susp (Novolin 70/30 U-100 Insulin) insulin syr/ndl U100 half nhan 0.5 #100 ea 11/24/23 Rx mL 30 gauge x 15/64" losartan 25 mg tablet (Cozaar) 50 mg (2 x 25 mg) PO 1XD #60 tabs 11/24/23 Rx metoprolol succinate 100 mg 100 mg PO DAILY #30 tabs 11/24/23 Rx tablet,extended release 24 hr warfarin 3 mg tablet 3 mg PO DAILY@1600 #30 tabs 11/24/23 Rx Hospital Stay Data Consultations 11/19/23 00:37 ED Decision to Admit Stat 11/20/23 08:34 Consult Infectious Diseases Routine 11/20/23 08:35 Consult Hematology Routine Diagnostic Imagining Performed 11/19/23 02:16 CT Abd and Pelvis [CT abd pelvis IV con only] Stat CT tib/fib LT w con Stat 11/19/23 06:17 MRI Lower Leg [MR lower leg LT wo/w con] Urgent 11/19/23 07:12 US venous doppler LE LT Urgent 11/20/23 14:27 CT angio chest PE protocol Stat Pending Results Patient Have Any Pending Studies at Discharge: No Total Time Total Time Spent Total Time Spent (In Minutes): 65
== END 2023-11-24 12:32 | disposition left against medical advice (07) | DRG 638 ==
LOC: ED 22:51 → SUATTDRO 11-19 02:26 → EDINP 11-19 02:26 → 2N 11-19 03:35

== ENCOUNTER 2024-03-24 07:15 | Inpatient (IN) ==
--- OUTSIDE RECORDS SUMMARY | 2024-03-24 07:23 | External Medical Summary | Summary of Care ---
Author Name Unknown Organization [facility] Address [address] [place] [address] Phone [phone] Care Team Providers Care Technology Solutions Architect Name Role Phone Dany Caruso MD Primary Care Provide r Reason for Visit * Reason Comments Dosage Adjustment Via Phone (anticoag Cl inic) Congestive Heart Failure Encounter Details Date Type Department Care Team ([facility] st Contact Info) Description 03/19/2024 10:30 AM EDT Telemedicine Cardiology, [address] [address] [facility] Cardiology [address] [place] [address] Other fatigue* Allergies Active Allergy Reactions Criticality Noted Date Comments Morphine 12/27/2013 Nausea, vomiting, diaphoresis Sulfa Antibiotics Itching 10/04/2011 documented as of this encounter (statuses as of 03/19/2024) Medications Medication Sig Dispensed Refills Start Date End Date Status Digital Domain [employer]uch Verio w/Device KitIndications:Type 2 diabetes mellitus with hemoglobin A1c goal of less than 7.0% ([facility]) Use to test once a day E11.9 1 Kit 03/23/2022 Active Budesonide-Formotero l Fumarate 80-4.5 MCG/ACT Inhalation Aerosol (Symbicort)Indicatio ns:SOB (shortness of breath) Inhale by mouth 2 Puffs in the morning AND 2 Puffs before bedtime. 10.2 g 1 05/10/2022 Active Additional Information Patient not taking.Reported on 01/19/2024 Magnesium Oxide (Elemental) 400 MG Oral Tablet Take by mouth 400 mg daily . 05/20/2022 Active Insulin Syringe 31G X 5/16" 0.3 ML Use to inject insulin twice daily. E11.9 60 Each 11/06/2023 Active Atorvastatin Calcium 40 MG Oral Tablet (Lipitor)Indications :High triglycerides Take 1 Tablet by mouth in the morning. 90 Tablet 3 11/28/2023 Active Ezetimibe 10 MG Oral Tablet (Zetia)Indications:H yperlipidemia with target LDL less than 70 Take 1 Tablet by mouth in the morning. 90 Tablet 3 11/28/2023 Active Fenofibrate 145 MG Oral Tablet (Tricor)Indications: High triglycerides Take 1 Tablet by mouth in the morning. 90 Tablet 3 11/28/2023 Active Sacubitril-Valsartan 24-26 MG Oral Tablet (Entresto) Take 1 Tablet by mouth in the morning and 1 Tablet before bedtime. 180 Tablet 11/28/2023 Active Pantoprazole Sodium 40 MG Oral Tablet Delayed Release (Protonix)Indication s:Gastroesophageal reflux disease without esophagitis Take 1 Tablet by mouth in the morning. 30 minutes before the first meal of the day. Do not crush, split or chew the tablet. 30 Tablet 5 11/29/2023 Active BD Pen Needle Imelda U/F 32G X 4 MM (Insulin Pen Needle)Indications:T ype 2 diabetes mellitus with autonomic neuropathy, unspecified whether halfway insulin use (HCC) Use with insulin once daily 100 Each 1 12/13/2023 Active Dulaglutide 0.75 MG/0.5ML Subcutaneous Solution Pen-injector (Trulicity) Inject 0.75 mg under the skin once a week. 2 mL 3 12/14/2023 Active Spironolactone 25 MG Oral Tablet (Aldactone) Take 1 Tablet by mouth in the morning. 30 Tablet 5 12/19/2023 Active Gabapentin 300 MG Oral Capsule (Neurontin)Indicatio ns:Neuropathy Take 1 Capsule by mouth in the morning and 1 Capsule at noon and 1 Capsule before bedtime. 90 Capsule 2 12/19/2023 Active OneTouch Verio In Vitro Strip (Glucose Blood) Use as directed to test blood sugars up to three times daily DxE11.9 300 Strip 3 12/28/2023 Active OneTouch Delica Lancets 33G Use as directed to test blood sugars up to three times daily DxE11.9 300 Each 3 12/28/2023 Active Insulin Glargine Solostar 100 UNIT/ML Subcutaneous Solution Pen-injector (Lantus SoloStar)Indications :Type 2 diabetes mellitus with hemoglobin A1c goal of less than 7.0% ([facility]) Inject 55 Units under the skin daily. 45 mL 3 01/12/2024 Active Triamcinolone Acetonide 0.1 % External Cream (Aristocort)Indicati ons:Contact dermatitis, unspecified contact dermatitis type, unspecified trigger Apply topically to affected area 2 times a day as needed for Itching. Affected area: upper back. 60 g 01/12/2024 Active Metoprolol Succinate ER 50 MG Oral Tablet Extended Release 24 Hour (toPROL XL)Indications:HFrEF (heart failure with reduced ejection fraction) ([facility]) Take 1.5 Tablets by mouth in the morning. 135 Tablet 2 01/22/2024 Active Furosemide 20 MG Oral Tablet (Lasix) Take 1 tablet by mouth daily. Take an extra tablet if weight gain 3 lbs in 1 day or 5 lbs in 1 week. 45 Tablet 5 01/23/2024 Active Dexcom G7 Sensor Apply 1 sensor every 10 days. E11.9 3 Each 5 01/24/2024 Active Linzess 145 MCG Oral Capsule (linaCLOtide)Indicat ions:Chronic constipation Take 1 Capsule by mouth daily before breakfast. 30 Capsule 3 01/31/2024 Active Metoclopramide HCl 5 MG Oral Tablet (Reglan)Indications: Gastroparesis TAKE 1 TABLET BY MOUTH IN THE MORNING, 1 TAB AT NOON AND 1 TAB BEFORE BEDTIME. 30 MINS BEFORE MEALS 90 Tablet 02/15/2024 Active Empagliflozin 10 MG Oral Tablet (Jardiance) Take 1 Tablet by mouth in the morning. 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 12/15/2023 Other acute pulmonary embolism without acute cor pulmonale 11/27/2023 Neuropathy 01/18/2023 Gastro-esophageal reflux disease without esophag [...] as of this encounter (statuses as of 03/19/2024) Resolved Problems Problem Noted Date Diagnosed Date Resolved Date Type 2 diabetes mellitus wit h autonomic neuropathy 06/29/2022 12/19/2022 Neuropathy 04/07/2021 12/19/2022 Diabetic ketoacidosis withou t coma associated with type 2 diabetes mellitus 04/07/2021 05/06/2021 Overview: 02/2021 Fatigue 11/13/2011 05/10/2022 Esophageal reflux 10/04/2011 04/07/2021 documented as of this encounter (statuses as of 03/19/2024) Immunizations Name Administration Dates Next Due Seasonal Influenza, Split, IIV3, With Preserve, Inj 10/04/2011 TDAP (age 10 and older)(Boostrix) 06/23/2021 TDAP (age 11 and older)(Adacel) 08/15/2011 documented as of this encounter Social History Tobacco Use Types Packs/Day Years Used Date Smoking Tobacco: Former Cigarettes 1 4 0 10/23/2003 - 10/23/2007 Smokeless Tobacco: Never Alcohol Use Standard Drinks/Week Comments Yes 0 (1 standard drink = 0.6 oz pur e alcohol) Around holidays PHQ-2 Answer Date Recorded PHQ Adult Total Score 0 08/31/2022 Hunger Vital Sign Answer Date Recorded Within the past 12 months, y ou worried that your food would run out before you got the money to buy more. Never true 01/04/20 24 Within the past 12 months, t he food you bought just didn't last and you didn't have money to get more. Never true 01/04/2024 Sex and Gender Information Value Date Recorded Sex Assigned at Not on file Gender Identity Not on file Sexual Orientation Not on file Job Start Date Occupation Industry Not on file Not on file Not on file documented as of this encounter Progress Notes * Becca Christian, Formerly [facility] - 03/19/2024 10:30 AM EDT PHARMACY CHRONIC DISEASE MANAGEMENT - HEART FAILURE After connecting to the patient via telephone, the patient was identified by name and date of . Patient was then informed that this was a telephone call only visit. The patient agreed to participate. Visit Disposition: Routine follow-up Total call duration was 10 minutes. Man Day is an 43 year old patient referred to the Heart Failure MTM clinic by Joaquina Hernández CRNP for the following: General heart failure medication optimization Lipid management PCP: Dany Caruso MD Cardiology Provider: Joaquina Hernández CRNP Dentistry Teacher: Not currently active with case management Urgent HF Access: Reviewed the following treatment locations for urgent HF symptoms with patient and provided them with contact information Cardiology based urgent heart failure clinic, [facility] [phone] HPI: Patient has heart failure assessment: Heart failure with REDUCED ejection fraction (SYStolic heart failure) without ischemic heart disease Patient has evidence of RV dysfunction: No Most recent LVEF: 35 % Date: 06/16/23 Modality: Echo Previous LVEF: 25 % Date: unknown Modality: unknown was following with [place] intermediate vitals: Does patient monitor BP at home? no Any dizziness or lightheadedness: Denies Home BP log results: N/a Does patient monitor HR at home? no Home HR log results: N/a Does patient monitor weight at home? yes Any increased edema or shortness of breath: Denies Home weight log results: 214 lbs---01/08 223 lbs --12/19 223 lbs---02/07 227 lbs ---02/12 220 lbs--02/18 226 lbs---03/19/24 Objective: BP Readings from Last 3 Encounters: 02/27/24 114/66 02/19/24 130/70 02/12/24 136/92 Pulse Readings from Last 3 Encounters: 02/27/24 73 02/19/24 88 02/12/24 104 Wt Readings from Last 3 Encounters: 02/27/24 106.6 kg (235 lb) 02/19/24 103.9 kg (229 lb) 02/12/24 105.7 kg (233 lb) Lab Results Component Value Date/Time CREATININE - [facility] 1.3 (H) 03/07/2024 11:16 AM CREATININE - [facility] 1.2 02/19/2024 12:52 PM CREATININE - [facility] 1.3 (H) 01/31/2024 01:04 PM CREATININE - [facility] 1.1 09/08/2016 02:32 PM CREATININE - [facility] 0.9 06/09/2015 03:06 PM CREATININE - [facility] 0.7 05/09/2011 05:00 PM CREATININE, RANDOM URINE - [facility] 50 05/18/2023 01:36 PM CREATININE, RANDOM URINE - [facility] 199 07/06/2022 12:48 PM CREATININE, RANDOM URINE - [facility] 151 03/24/2022 08:44 AM Lab Results Component Value Date/Time SODIUM - [facility] 140 03/07/2024 11:16 AM SODIUM - [facility] 143 02/19/2024 12:52 PM SODIUM - [facility] 141 01/31/2024 01:04 PM SODIUM - [facility] 143 09/08/2016 02:32 PM SODIUM - [facility] 144 06/09/2015 03:06 PM SODIUM - [facility] 141 05/09/2011 05:00 PM SODIUM, RANDOM URINE - [facility] 178 06/09/2015 03:06 PM Lab Results Component Value Date/Time POTASSIUM - [facility] 4.8 03/07/2024 11:16 AM POTASSIUM - [facility] 4.5 02/19/2024 12:52 PM POTASSIUM - [facility] 4.4 01/31/2024 01:04 PM POTASSIUM - [facility] 4.3 09/08/2016 02:32 PM POTASSIUM - [facility] 4.0 06/09/2015 03:06 PM POTASSIUM - [facility] 3.6 05/09/2011 05:00 PM POTASSIUM, RANDOM URINE - [facility] 28.8 06/09/2015 03:06 PM No results found for: "DIG" Lab Results Component Value Date/Time HGB 16.7 01/24/2024 09:02 AM HGB 15.0 11/24/2023 12:00 AM HGB 16.6 05/26/2022 08:22 AM HGB 17.6 (H) 05/10/2022 08:08 AM HGB 15.8 05/09/2011 05:00 PM HGB 15.4 04/04/2011 12:00 PM HGB 15.5 01/17/2008 10:35 AM No results found for: "FERRITIN" Lab Results Component Value Date/Time IRON - [facility] 44 (L) 06/09/2015 03:06 PM IRON BINDING CAPACITY - [facility] 267 06/09/2015 03:06 PM Lab Results Component Value Date/Time IRON BINDING CAPACITY - [facility] 267 06/09/2015 03:06 PM No results found for: "TRANSFERRIN" Diet Review: not discussed Current Cardiac Medications Metoprolol Er 50 mg tablet take 75 mg daily Lasix 20 mg daily Xarelto 20 mg daily Atorvastatin 40 mg daily Fenofibrate 145 mg daily Ezetimibe 10 mg daily Entresto 24-26 mg BID-started 11/28/23 Spironolactone 25 mg daily-started 12/19/23 Jardiance 10 mg daily-started 02/21/24 Current DM Medications: Lantus 55 units daily Trulicity 0.75 mg weekly *Pill box Eligible for [facility] pharmacy? Agree or Declined? Not reviewed Assessment & Plan: HFrEF -LVEF slightly improved -repeat ECHO in 6 months post Cardio visit on 09/15/23 -TSH and vitamin D ordered Still feeling weak and tired. States he has no energy. Thankfully his HbA1c has trended down to 10%to 7.7%. For this reason, SGLT2 was started 02/21/24. Follow up BMP is stable. Will order TSH and vitamin D for fatigue. Seeing provider tomorrow, encouraged pt to discuss at this time. Consider titration of Entresto vs Metoprolol tomorrow depending on vitals. Uncontrolled Dyslipidemia - Target LDL <70 -Continue current medications -TG much improved but remain elevated; Continue to work to lower BG 3. Uncontrolled T2DM -Following [place] -Using Dexcom G7 -HbA1c is trending down, now 7.7% History of alcohol dependence -Pt aware of increased risk of pancreatitis with elevated TG >500 4. Controlled HTN -Goal BP <130/80 -In office readings controlled 5. History of acute PE\\recent DVT -05/2022; pt self D/c DOAC in past -Xarelto 6. Cellulitis Finished up on Doxycyline. Reports this is healing. Medication changes: none Labs Due: TSH Vitamin D Follow up: 3 weeks Becca Phillips [facility] Clinical Pharmacist Medication Therapy Disease Management 03/19/2024,10:32 AM documented in this encounter Plan of Treatment Upcoming Encounters Date Type Department Care Team (Late st Contact Info) Description 03/20/2024 8:30 AM EDT Office Visit Cardiology, [facility] [address] [place] [address] Joaquina Hernández CRNP [address] [address] 03/21/2024 9:00 AM EDT Office Visit Pharmacy, [address] [place] [address] [place] [address] 04/01/2024 8:40 AM EDT Office Visit Family Medicine [address] [place] [phone] Linda Vale [address] [place] [address] 04/09/2024 10:00 AM EDT Telemedicine Cardiology, [address] [place] [address] [facility] Cardiology [address] [place] [address] 06/07/2024 9:30 AM EDT Office Visit Gastroenterology [address] [place] [address] Marsha Loco CRNP [address] [place] [address] 08/28/2024 8:20 AM EST Office Visit Family Medicine [address] [place] [phone] Dany Caruso MD [address] [place] [address] [place] [address] Scheduled Orders Name Type Priority Associated Diagnoses Orde r Schedule TSH WITH FREE T4 IF INDICATED Lab Routine Other fatigue Expected: 03/26/2024 (Approximate), Expires: 09/19/2024 25-HYDROXY VITAMIN D Lab Routine Other fatigue Expected: 03/19/2024, Expires: 03/19/2025 Health Maintenance Due Date Last Done Comments Pneumococcal Vaccine: Pediatrics (0 to 5 Years) and At-Risk Patients (6 to 64 Years) (1 of 2 - PCV) 1985 HIV Screening 1994 Hepatitis C Screening 1997 Hepatitis B (1 of 3 - 19+ 3-dose series) 1998 COVID-19 Vaccine ( season) 2023 Depression Screening 08/31/2023 08/31/2022 Albumin/Creatinine Ratio 05/18/2024 023, 07/06/2022, 03/24/2022, Additional history exists Influenza Vaccine (FLU shot) (Season Ended) 2024 10/04/2011 HbA1c 08/20/2024 02/19/2024, 09/23, 05/18/2023, Additional history exists Diabetic Eye Exam 12/15/2024 12/15/2023, , 03/31/2022, Additional history exists Diabetic Foot Exam 12/15/2024 12/15/2023, 0 12/19/2022, 05/06/2021 GFR 03/07/2025 03/07/2024, 01/22, 01/31/2024, Additional history exists Lipid Panel 03/07/2029 03/07/2024, 11/24, 10/13/2023, Additional history exists DTaP,Tdap,and Td Vaccines (3 - Td or Tdap) 06/23/2031 06/23/2021, 08/15/2011 GARDASIL-HPV IMMUNIZATION SERIES Aged Out No longer eligible based on patient's age to complete this topic MENINGOCOCCAL (MENACTRA/MENVEO) Aged Out No longer eligible based on patient's age to complete this topic documented as of this encounter Medical Devices Not on filedocumented as of this encounter Visit Diagnoses Diagnosis Other fatigue- Primary documented in this encounter Care Teams Technology Solutions Architect Relationship Specialty Start Date End Date Dany Caruso MD [address] [place] [address] [place] [phone] PCP - General Family Medicine 04/07/21 documented as of this encounter
--- OUTSIDE RECORDS SUMMARY | 2024-03-24 07:23 | External Medical Summary | Summary of Care ---
Author Name Unknown Organization [facility] Address [address] [place] [address] Phone [phone] Care Team Providers Care Oval Or Circular Glass Cutter Name Role Phone Dany Caruso MD Primary Care Provide r Reason for Visit * Reason Onset Date Comments Medication Refill 03/20/2024 Encounter Details Date Type Department Care Team (Late st Contact Info) Description 03/20/2024 Refill Family Medicine [address] [place] [phone] Dany Caruso MD [address] [place] [address] [place] [address] Neuropathy Allergies Active Allergy Reactions Criticality Noted Date Comments Morphine 12/27/2013 Nausea, vomiting, diaphoresis Sulfa Antibiotics Itching 10/04/2011 documented as of this encounter (statuses as of 03/20/2024) Medications Medication Sig Dispensed Refills Start Date End Date Status OneTouch Verio w/Device KitIndications:Typ e 2 diabetes mellitus with hemoglobin A1c goal of less than 7.0% ([facility]) Use to test once a day E11.9 1 Kit 03/23/2022 Active Magnesium Oxide (Elemental) 400 MG Oral Tablet Take by mouth 400 mg daily . 05/20/2022 Active Insulin Syringe 31G X 5/16" 0.3 ML Use to inject insulin twice daily. E11.9 60 Each 5 11/06/2023 Active Atorvastatin Calcium 40 MG Oral Tablet (Lipitor)Indicatio ns:High triglycerides Take 1 Tablet by mouth in the morning. 90 Tablet 3 11/28/2023 Active Ezetimibe 10 MG Oral Tablet (Zetia)Indications :Hyperlipidemia with target LDL less than 70 Take 1 Tablet by mouth in the morning. 90 Tablet 11/28/2023 Active Fenofibrate 145 MG Oral Tablet (Tricor)Indication s:High triglycerides Take 1 Tablet by mouth in the morning. 90 Tablet 11/28/2023 Active Sacubitril-Valsart an 24-26 MG Oral Tablet (Entresto) Take 1 [...] split or chew the tablet. 30 Tablet 11/29/2023 Active Rivaroxaban 20 MG Oral Tablet (Xarelto) Take 1 Tablet by mouth daily with dinner. Do not start before December 23, 2023. 30 Tablet 12/23/2023 Active BD Pen Needle Imelda U/F 32G X 4 MM (Insulin Pen Needle)Indications :Type 2 diabetes mellitus with autonomic neuropathy, unspecified whether fci insulin use (HCC) Use with insulin once daily 100 Each 1 12/13/2023 Active Dulaglutide 0.75 MG/0.5ML Subcutaneous Solution Pen-injector (Trulicity) Inject 0.75 mg under the skin once a week. 2 mL 12/14/2023 Active Spironolactone 25 MG Oral Tablet (Aldactone) Take 1 Tablet by mouth in the morning. 30 Tablet 12/19/2023 Active OneTouch Verio In Vitro Strip (Glucose Blood) Use as directed to test blood sugars up to three times daily DxE11.9 300 Strip 12/28/2023 Active OneTouch Delica Lancets 33G Use as directed to test blood sugars up to three times daily DxE11.9 300 Each 12/28/2023 Active Insulin Glargine Solostar 100 UNIT/ML Subcutaneous Solution Pen-injector (Lantus SoloStar)Indicatio ns:Type 2 diabetes mellitus with hemoglobin A1c goal of less than 7.0% (HCC) Inject 55 Units under the skin daily. 45 mL 01/12/2024 Active Triamcinolone Acetonide 0.1 % External Cream (Aristocort)Indica tions:Contact dermatitis, unspecified contact dermatitis type, unspecified trigger Apply topically to affected area 2 times a day as needed for Itching. Affected area: upper back. 60 g 01/12/2024 Active Metoprolol Succinate ER 50 MG Oral Tablet Extended Release 24 Hour (toPROL XL)Indications:HFr EF (heart failure with reduced ejection fraction) (HCC) [...] 01/24/2024 Active Linzess 145 MCG Oral Capsule (linaCLOtide)Indic ations:Chronic constipation Take 1 Capsule by mouth daily before breakfast. 30 Capsule 3 01/31/2024 Active Metoclopramide HCl 5 MG Oral Tablet (Reglan)Indication s:Gastroparesis TAKE 1 TABLET BY MOUTH IN THE MORNING, 1 TAB AT NOON AND 1 TAB BEFORE BEDTIME. 30 MINS BEFORE MEALS 90 Tablet 02/15/2024 Active Empagliflozin 10 MG Oral Tablet (Jardiance) Take 1 Tablet by mouth in the morning. 90 Tablet 3 02/21/2024 Active Gabapentin 300 MG Oral Capsule (Neurontin)Indicat ions:Neuropathy Take 1 Capsule by mouth in the morning and 1 Capsule at noon and 1 Capsule before bedtime. 90 Capsule 3 03/20/2024 Active Gabapentin 300 MG Oral Capsule (Neurontin)Indicat ions:Neuropathy Take 1 Capsule by mouth in the morning and 1 Capsule at noon and 1 Capsule before bedtime. 90 Capsule 2 12/19/2023 Discontinued documented as of this encounter (statuses as of 03/20/2024) Active Problems Problem Noted Date Diagnosed Date [...] as of this encounter (statuses as of 03/20/2024) Resolved Problems Problem Noted Date Diagnosed Date Resolved Date Type 2 diabetes mellitus wit h autonomic neuropathy 06/29/2022 12/19/2022 Neuropathy 04/07/2021 12/19/2022 Diabetic ketoacidosis withou t coma associated with type 2 diabetes mellitus 04/07/2021 05/06/2021 Overview: 02/2021 Fatigue 11/13/2011 05/10/2022 Esophageal reflux 10/04/2011 04/07/2021 documented as of this encounter (statuses as of 03/20/2024) Immunizations Name Administration Dates Next Due Seasonal [...] encounter Miscellaneous Notes * Telephone Encounter - Dany Caruso MD - 03/20/2024 2:49 PM EDT Signed Prescriptions: Disp Refills Gabapentin 300 MG Oral Capsule (Neurontin) 90 Cap*3 Sig: Take 1 Capsule by mouth in the morning and 1 Capsule at noon and 1 Capsule before bedtime. Authorizing Provider: DANY CARUSO * Telephone Encounter - Jammie Dockery CMA - 03/20/2024 2:37 PM EDT Did you pend patient's preferred pharmacy and medication before forwarding?yes Pharmacy: [id number] Pending Prescriptions: Disp Refills Gabapentin 300 MG Oral Capsule (Neurontin)90 Cap*3 Sig: Take 1 Capsule by mouth in the morning and 1 Capsule at noon and 1 Capsule before bedtime. Last Visit: 02/27/2024 (in office), Visit date not found (telemedicine) Next Visit: 04/01/2024 If no future appointments scheduled, and last appointment is greater than a year ago, please schedule patient for a follow-up appointment Last date the medication was ordered: Is this request for a controlled substance?No Urine Drug Screen:No results found for this or any previous visit. Patient Phone Numbers Labs: Lab Results Component Value Date/Time CREAT 1.3 (H) 03/07/2024 11:16 AM CREAT 1.1 09/08/2016 02:32 PM POTASSIUM 4.8 03/07/2024 11:16 AM POTASSIUM 4.3 09/08/2016 02:32 PM TSH 2.79 06/09/2015 03:06 PM LDLCALC 34 03/07/2024 11:16 AM LDLDIRECT 50 12/13/2023 09:40 AM ALT 19 05/10/2022 08:08 AM ALT 31 09/08/2016 02:32 PM HGBA1C 7.7 (H) 02/19/2024 12:52 PM HGBA1C 6.0 06/09/2015 03:06 PM documented in this encounter Plan of Treatment Upcoming Encounters Date Type Department Care Team (Late st Contact Info) Description 03/21/2024 9:00 AM EDT Office Visit Pharmacy, [address] [place] [address] [place] [address] 04/01/2024 8:40 AM EDT Office Visit Family Medicine [address] [place] [phone] [address] [place] [address] [place] [address] 04/09/2024 10:00 AM EDT Telemedicine Cardiology, [place] [address] [place] [address] [facility] Cardiology [address] [facility] [place] [address] 06/07/2024 9:30 AM EDT Office Visit Gastroenterology [address] [place] [address] Marsha Loco CRNP [address] [place] [address] 06/20/2024 11:00 AM EDT Cardiac Studies Cardiac Studies, [facility] [address] [place] [address] 07/04/2024 1:20 PM EDT Office Visit Gastroenterology, [facility] [address] [place] [address] Angel Eaton MD [address] [place] [phone] 08/28/2024 8:20 AM EST Office Visit Family [address] [place] [phone] Dany Caruso MD [address] [place] [address] [place] [address] 09/30/2024 9:30 AM EST Office Visit Cardiology, [facility] [address] [place] [address] Joaquina Hernández CRNP [address] [facility] [place] [address] Health Maintenance Due Date Last Done Comments [...] as of this encounter Visit Diagnoses Diagnosis Neuropathy Mononeuritis of unspecified site documented in this encounter Care Teams Oval Or Circular Glass Cutter Relationship Specialty Start Date End Date Dany Caruso MD [address] [place] [address] [place] [phone] PCP - General Family Medicine 04/07/21 documented as of this encounter
--- OUTSIDE RECORDS SUMMARY | 2024-03-24 07:23 | External Medical Summary ---
Author Name Unknown Address Unknown Organization [id number]:LAB[facility] [address] [place] [address] Laboratory Report Ordering Provider Test Date Status KRISTINA MACARIO 03/07/2024 11:16:08 Final Observation Date Value Abnormality Reference (Units ) Status BUN 03/07/2024 11:16:08 13 6-20 (mg/dL) Final Creatinine 03/07/2024 11:16:08 1.3 Above high normal 0.6-1.2 (mg/dL) Final Glomerular filtration rate/1.73 sq M.predicted [Volume Rate/Area] in Serum, Plasma or Blood by Creatinine-based formula (CKD-EPI) 03/07/2024 11:16:08 73 >=60 (mL/min) Final eGFR is calculated based on the CKD-EPI 2020 equation Sodium 03/07/2024 11:16:08 140 135-146 (m mol/L) Final Potassium 03/07/2024 11:16:08 4.8 3.5-5.1 (m mol/L) Final Cl 03/07/2024 11:16:08 106 98-107 (mm ol/L) Final CO2 03/07/2024 11:16:08 26 22-32 (mmo l/L) Final Anion gap 03/07/2024 11:16:08 8 7-15 (mmol /L) Final Glucose 03/07/2024 11:16:08 143 Above high normal 70 -120 (mg/dL) Final Calcium 03/07/2024 11:16:08 9.2 8.4-10.2 ( mg/dL) Final Performing Location [facility] [address] [place] [id number]
--- OUTSIDE RECORDS SUMMARY | 2024-03-24 07:23 | External Medical Summary | Summary of Care ---
Author Name Unknown Organization [facility] Address [address] [place] [address] Phone [phone] Care Team Providers Care Customer Logistics Manager Name Role Phone Dany Caruso MD Primary Care Provide r Reason for Referral * Precert (Within 10 days (routine)) - Authorized Specialty Diagnoses / Procedures Referred By Grant joseph Referred To Contact Cardiac Studies Diagnoses HTN, goal below 130/80 HFrEF (heart failure with reduced ejection fraction) (HCC) Procedures ECHO, COMPLETE (2D), TRANS-THORACIC Joaquina Hernández CRNP [address] [place] [address] Referral ID Status Reason Start Date Expiration Date V isits Requested Visits Authorized [id number] Authorized Precert 06/20/2024 999 999 * Evaluate & Treat - Unlimited Visits (Within 10 days (routine)) - Authorized Specialty Diagnoses / Procedures Referred By Contblaine t Referred To Contact Gastroenterology Diagnoses Nausea and vomiting, unspecified vomiting type Gastroparesis Joaquina Hernández CRNP [address] [place] [address] Referral ID Status Reason Start Date Expiration Date Visits Requested Visits Authorized [id number] Authorized Specialty Services Required 03/20/2024 999 999 Question Answer Referral Priority Within 10 days (routine) Where should this appointment be scheduled? [facility] For what condition is the patient being referred? All Gastro Conditions Comments Persistent nausea, frequent "dry heaving"/vomiting, reflux, bowel issues/constipation, abdominal pain, known gastroparesis Reason for Visit * Reason Comments Follow Up Encounter Details Date Type Department Care Team (Late st Contact Info) Description 03/20/2024 8:30 AM EDT Office Visit Cardiology, [facility] [address] [place] [address] Joaquina Hernández CRNP [address] [place] [id number] HFrEF (heart failure with reduced ejection fraction) ([facility])*; HTN, goal below 130/80; High triglycerides; Nausea and vomiting, unspecified vomiting type; Gastroparesis; Chronic constipation; Type 2 diabetes mellitus with hemoglobin A1c goal of less than 7.0% ([facility]) Allergies Active Allergy Reactions Criticality Noted Date Comments Morphine 12/27/2013 Nausea, vomiting, diaphoresis Sulfa Antibiotics Itching 10/04/2011 documented as of this encounter (statuses as of 03/20/2024) Medications Medication Sig Dispensed Refills Start Date End Date Status OneTouch Verio w/Device KitIndications:Typ e 2 diabetes mellitus with hemoglobin A1c goal of less than 7.0% ([facility]) Use to test once a day [...] the morning. 90 Tablet 3 11/28/2023 Active Sacubitril-Valsart an 24-26 MG Oral Tablet (Entresto) Take 1 Tablet by mouth in the morning and 1 Tablet before bedtime. 180 Tablet 5 11/28/2023 Active Pantoprazole Sodium 40 MG Oral Tablet Delayed Release (Protonix)Indicati ons:Gastroesophage al reflux disease without esophagitis Take 1 Tablet by mouth in the morning. 30 minutes before the first meal of the day. Do not crush, split or chew the tablet. 30 Tablet 5 11/29/2023 Active Rivaroxaban 20 MG Oral Tablet [...] Active Dulaglutide 0.75 MG/0.5ML Subcutaneous Solution Pen-injector ([employer]) Inject 0.75 mg under the skin once a week. 2 mL 3 12/14/2023 Active Spironolactone 25 MG Oral Tablet (Aldactone) Take 1 Tablet by mouth in the morning. 30 Tablet 5 12/19/2023 Active Gabapentin 300 MG Oral Capsule (Neurontin)Indicat [...] goal of less than 7.0% ([facility]) Inject 55 Units under the skin daily. [...] the morning. 90 Tablet 3 02/21/2024 Active Budesonide-Formote rol Fumarate 80-4.5 MCG/ACT Inhalation Aerosol (Symbicort)Indicat ions:SOB (shortness of breath) Inhale by mouth 2 Puffs in the morning AND 2 Puffs before bedtime. 10.2 g 1 05/10/2022 4 Discontinued documented as of this encounter (statuses [...] 0 10/23/2003 - 10/23/2007 Smokeless Tobacco: Never Tobacco Cessation:Counseling Given: [...] Sign Reading Time Taken Comments Blood Pressure 118/74 03/20/2024 8:30 AM EDT Pulse 82 03/20/2024 8:30 AM EDT Temperature - - Respiratory Rate - - Oxygen Saturation 92% 03/20/2024 8:30 AM EDT Inhaled Oxygen Concentration - - Weight 105.2 kg (232 lb) 03/20/2024 8:30 AM EDT Height - - Body Mass Index 35.28 02/19/2024 12:16 PM EDT documented in this encounter Progress Notes * Joaquina Hernández CRNP - 03/20/2024 8:30 AM EDT 03/20/2024 Cardiology Follow Up Primary Home Health Lvn: Dr. Gómez Cardiac Problems: HFrEF Non-ischemic cardiomyopathy DM Mixes dyslipidemia History of Alcohol abuse HPI: Man Day is a 43 year old male presents today for routine follow up. Last seen in our office by the undersigned 09/15/23 doing poorly at that time. He was not taking many of his medications and there were concerns for cost affordability with no health insurance at that time. Patient was in the process of applying for disability. He reported ongoing weakness and fatigue. He was re- established with MTM for maximizing medication therapies, is working towards better lipid control and has also managed to trend down his HgB A1C from 10's to 7.7. Patient complains of ongoing fatigue. He was seen by MTM yesterday who ordered a Vitamin D and Ferritin level to be drawn. He wakes in the morning and feels nauseated every morning and often feels the need to throw up. Complains of constant "upset stomach". He is also struggling with moving his lower bowels. He states that this has been ongoing for several months, started before all of his new medication therapies. He continues with chronic shortness of breath, no changes. Feels like it seems to relate to when heis increasingly nauseous or fatigued. BP well controlled. Reports compliance on all medication therapies with no untoward effects. Patient is still in the process applying for disability. Discussed his chronic heart failure as well as other comorbidities which make obtaining employment not possible. Patient demonstrates great effort in medication compliance and other therapies, and is taking his health issues very seriously. REVIEW OF SYSTEMS: See HPI for pertinent [...] Current Outpatient Medications Medication Sig Dispense Refill Accupal Verio w/Device Kit Use to test once a day E11.9 1 Kit 0 Magnesium Oxide (Elemental) 400 MG Oral Tablet Take by mouth 400 mg daily . Insulin Syringe 31G X 5/16" 0.3 ML Use to inject insulin twice daily. E11.9 60 Each 5 Atorvastatin Calcium 40 MG Oral Tablet (Lipitor) Take 1 Tablet by mouth in the morning. 90 Tablet 3 Ezetimibe 10 MG Oral Tablet (Zetia) Take 1 Tablet by mouth in the morning. 90 Tablet 3 Fenofibrate 145 MG Oral Tablet (Tricor) Take 1 Tablet by mouth in the morning. 90 Tablet 3 Sacubitril-Valsartan 24-26 MG Oral Tablet (Entresto) Take 1 Tablet by mouth in the morning and 1 Tablet before bedtime. 180 Tablet 5 Pantoprazole Sodium 40 MG Oral Tablet Delayed Release (Protonix) Take 1 Tablet by mouth in the morning. 30 minutes before the first meal of the day. Do not crush, split or chew the tablet. 30 Tablet 5 Rivaroxaban 20 MG Oral Tablet (Xarelto) Take 1 Tablet by mouth daily with dinner. Do not start before December 23, 2023. 30 Tablet 0 Dulaglutide 0.75 MG/0.5ML Subcutaneous Solution Pen-injector ([place]) Inject 0.75 mg under the skin once a week. 2 mL 3 Spironolactone 25 MG Oral Tablet (Aldactone) Take 1 Tablet by mouth in the morning. 30 Tablet 5 Gabapentin 300 MG Oral Capsule (Neurontin) Take 1 Capsule by mouth in the morning and 1 Capsule at noon and 1 Capsule before bedtime. 90 Capsule 2 OneTouch Verio In Vitro Strip (Glucose Blood) Use as directed to test blood sugars up to three times daily DxE11.9 300 Strip 3 OneTouch Delica Lancets 33G Use as directed to test blood sugars up to three times daily DxE11.9 300 Each 3 Insulin Glargine Solostar 100 UNIT/ML Subcutaneous Solution Pen-injector (Lantus SoloStar) Inject 55 Units under the skin daily. 45 mL 3 Triamcinolone Acetonide 0.1 % External Cream (Aristocort) Apply topically to affected area 2 times a day as needed for Itching. Affected area: upper back. 60 g 0 Metoprolol Succinate ER 50 MG Oral Tablet Extended Release 24 Hour (toPROL XL) Take 1.5 Tablets by mouth in the morning. 135 Tablet 2 Furosemide 20 MG Oral Tablet (Lasix) Take 1 tablet by mouth daily. Take an extra tablet if weight gain 3 lbs in 1 day or 5 lbs in 1 week. 45 Tablet 5 Dexcom G7 Sensor Apply 1 sensor every 10 days. E11.9 3 Each 5 Linzess 145 MCG Oral Capsule (linaCLOtide) Take 1 Capsule by mouth daily before breakfast. 30 Capsule 3 Metoclopramide HCl 5 MG Oral Tablet (Reglan) TAKE 1 TABLET BY MOUTH IN THE MORNING, 1 TAB AT NOON AND 1 TAB BEFORE BEDTIME. 30 MINS BEFORE MEALS 90 Tablet 0 Empagliflozin 10 MG Oral Tablet (Jardiance) Take 1 Tablet by mouth in the morning. 90 Tablet 3 BD Pen Needle Imelda U/F 32G X 4 MM (Insulin Pen Needle) Use with insulin once daily 100 Each 1 No current facility-administered medications for this visit. Past Medical History: Diagnosis Date Chronic constipation DM type 2, goal HbA1c < 7% ([facility]) Gastroparesis GERD (gastroesophageal reflux disease) HTN, goal below 130/80 Other proteinuria No family history on file. Social History Socioeconomic History Marital status: Single Tobacco Use Smoking status: Former Current packs/day: 0.00 Average packs/day: 1 pack/day for 4.0 years (4.0 ttl pk-yrs) Types: Cigarettes Start date: 10/23/2003 Quit date: 10/23/2007 Years since quittin.4 Smokeless tobacco: Never Vaping Use Vaping status: Never Used Substance and Sexual Activity Alcohol use: Yes Comment: Around holidays Drug use: No Sexual activity: Yes Partners: Female Social Determinants of Health Food Insecurity: No Food Insecurity (01/04/2024) Hunger Vital Sign Worried About Running Out of Food in the Last Year: Never true Ran Out of Food in the Last Year: Never true OBJECTIVE/PHYSICAL EXAMINATION: BP 118/74 | Pulse 82 | Wt 105.2 kg (232 lb) | SpO2 92% | BMI 35.28 kg/m | BSA 2.25 m General: No acute distress. A+Ox3. HEENT: [...] No previous ECGs available Ventricular Rate: 92 ASSESSMENT/PLAN: 43 year old year old male 1. HFrEF (heart failure with reduced ejection fraction) (HCC) -Patient euvolemic on exam. -Continues with chronic fatigue and shortness of breath which is multi- factorial. Due for labs nextweek. -Will plan to obtain echo for surveillance of his overall structure and function given his NICM. -Continue Entresto, Jardiance, Furosemide, Toprol xl, Spironolactone - ECHO, COMPLETE (2D), TRANS-THORACIC; Future -Continue to follow with MTM for maximizing medication therapy 2. HTN, goal below 130/80 -Controlled. Continue Toprol xl, Entresto and Spironolactone - EKG - ECHO, COMPLETE (2D), TRANS-THORACIC; Future 3. High triglycerides -Continue Atorvastatin, Zetia and Fenofibrate -Repeat lipid panel in 6 months. Follows with MTM 4. Nausea and vomiting, unspecified vomiting type 5. Gastroparesis 6. Chronic constipation -Worsening GI symptoms despite medication therapies. Has not seen GI in several years and needs to re-establish and likely undergo more invasive testing. - ADULT GASTROENTEROLOGY REFERRAL OP 7. Type 2 diabetes mellitus with hemoglobin A1c goal of less than 7.0% ([facility]) -significant improvement in A1C. Continued management per MTM and PCP DISPOSITION: Follow up 6 months or if symptoms worsen/fail to improve. All questions were answered to the patients satisfaction. Patient advised to report to ED with any and all emergencies. The patient agrees to the above plan and will call with additional questions or concerns. [facility], [address] [address] I spent a total of 40 minutes on the date of service in preparation, delivery, and documentation ofthe care provided to Man Day excluding any time spent in the performance of separately billed services. This chart was completed in part utilizing [employer] Speech Voice Recognition Software. Grammatical errors, random word insertions, pronoun errors, and incomplete sentences are an occasional consequence of this system due to software limitations, ambient noise, and hardware issues. Any formal questions or concerns about the content, text, or information contained within the body of this dictation should be directly addressed to the provider for clarification. documented in this encounter Procedure Notes * Miah Agrawal DO - 03/20/2024 8:39 AM EDTAssociated Order(s): EKG REASON FOR STUDY: routine;routine CONCLUSIONS: Sinus rhythm with 1st degree AV block Left axis deviation Right bundle branch block Inferior infarct (cited on or before 15-Jun-2023) Abnormal ECG When compared with ECG of 15-Jun-2023 09:06, QRS duration has increased Ventricular Rate: 80 Atrial Rate: 80 PA Interval: 218 QRS Duration: 160 QT/QTc: 416/479 ms P-R-T [place]: 27 : -77 : 11 degrees documented in this encounter Nursing Notes * Jammie Dockery CMA - 03/20/2024 8:28 AM EDT Examination Room: 1 Name: Man Day Date of : (1980) Reason for Visit: 6m Interim Hospitalization(s): none Problems/Concerns: denied Chest Pain/SOB: denied chest pain, but "feels like he can't breath" getting worse. Feels sick My [facility] is a way you can talk to your provider online through e-mail. Would you like to sign up? I can activate it for you? ALREADY ACTIVE Patient was instructed to not get up [...] 03/21/2024 9:00 AM EDT Office Visit Pharmacy, [address] [place] [address] [place] [address] 04/01/2024 8:40 AM EDT Office Visit Family Medicine [address] [place] [phone] Linda Vale [address] [place] [address] 04/09/2024 10:00 AM EDT Telemedicine Cardiology, [place] [address] [place] [address] [facility] Cardiology [address] [place] [address] 06/07/2024 9:30 AM EDT Office Visit Gastroenterology [address] [place] [address] Marsha Loco CRNP [address] [place] [address] 06/20/2024 11:00 AM EDT Cardiac Studies Cardiac Studies, [facility] [address] [place] [address] 07/04/2024 1:20 PM EDT Office Visit Gastroenterology, [facility] [address] [place] [address] Agnel Eaton MD [address] [place] [address] 08/28/2024 8:20 AM EST Office Visit Family Medicine [address] [place] [phone] Dany Caruso MD [address] [place] [address] [place] [address] 09/30/2024 9:30 AM EST Office Visit Cardiology, [facility] [address] [place] [address] Joaquina Hernández CRNP [address] [place] [address] Scheduled Orders Name Type Priority Associated Diagnoses Orde r Schedule ECHO, COMPLETE (2D), TRANS-THORACIC Echocardiology Routine HTN, goal below 130/80 HFrEF (heart failure with reduced ejection fraction) (HCC) Expected: 06/20/2024 (Approximate), Expires: 04/19/2026 Scheduled Referrals Name Type Priority Associated Diagnoses Order Schedule ADULT GASTROENTEROLOGY REFERRAL OP Referral Within 10 days (routine) Nausea and vomiting, unspecified vomiting type Gastroparesis Ordered: 03/20/2024 Health Maintenance Due Date Last Done Comments Pneumococcal Vaccine: Pediatrics (0 to 5 Years) and At-Risk Patients (6 to 64 Years) (1 of 2 - PCV) 1985 HIV Screening 1994 Hepatitis C Screening 1997 Hepatitis B (1 of 3 - 19+ 3-dose series) 1998 COVID-19 Vaccine (2022- season) 2023 Depression Screening 08/31/2023 08/31/2022 Albumin/Creatinine [...] Not on filedocumented as of this encounter Procedures Procedure Name Priority Date/Time Associated Diagnosis Comments PA ECG ROUTINE ECG W/LEAST 12 LDS TRCG ONLY W/O I&R Routine 03/20/2024 8:39 AM EDT HTN, goal below 130/80 documented in this encounter Results * EKG (03/20/2024 8:39 AM EDT) 03/20/2024 8:39 AM EDT Narrative Procedure Note Miah Agrawal DO - 03/20/2024 8:39 AM EDT REASON FOR STUDY: routine;routine CONCLUSIONS: Sinus rhythm with 1st degree AV block Left axis deviation Right bundle branch block Inferior infarct (cited on or before 15-Jun-2023) Abnormal ECG When compared with ECG of 15-Jun-2023 09:06, QRS duration has increased Ventricular Rate: 80 Atrial Rate: 80 PA Interval: 218 QRS Duration: 160 QT/QTc: 416/479 ms P-R-T [place]: 27 : -77 : 11 degrees Joaquina TONG EKG [facility] documented in this encounter Visit Diagnoses Diagnosis HFrEF (heart failure with reduced ejection fraction) (HCC)- Primary HTN, goal below 130/80 Unspecified essential hypertension High triglycerides Pure hyperglyceridemia Nausea and vomiting, unspecified vomiting type Gastroparesis Chronic constipation Unspecified constipation Type 2 diabetes mellitus with hemoglobin A1c goal of less than 7.0% (HCC) documented in this encounter Care Teams Customer Logistics Manager Relationship Specialty Start Date End Date Dany Caruso MD [address] [place] [address] [place] [address] PCP - General Family Medicine 04/07/21 documented as of this encounter
--- OUTSIDE RECORDS SUMMARY | 2024-03-24 07:23 | External Medical Summary | Summary of Care ---
Author Name Unknown Organization [facility] Address [address] [place] [address] Phone [phone] Care Team Providers Care Design Architect Name Role Phone Dany Caruso MD Primary Care Provide r Reason for Visit * Reason Onset Date Comments Test Results 02/21/2024 Encounter Details Date Type Department Care Team (Late st Contact Info) Description 02/21/2024 Telephone Family Medicine [address] [phone] Dany Caruso MD [address] [place] [address] [place] [address] Test Results Allergies Active Allergy Reactions Criticality Noted Date Comments Morphine 12/27/2013 Nausea, vomiting, diaphoresis Sulfa Antibiotics Itching 10/04/2011 documented as of this encounter (statuses as of 02/23/2024) Medications Medication Sig Dispensed Refills Start Date End Date Status OneTouch Verio w/Device KitIndications:Type 2 diabetes mellitus with hemoglobin A1c goal of less than 7.0% ([facility]) Use to test once a day E11.9 1 Kit 0 03/23/2022 Active Budesonide-Formoter ol Fumarate 80-4.5 MCG/ACT Inhalation Aerosol (Symbicort)Indicati ons:SOB (shortness of breath) Inhale by mouth 2 Puffs in the morning AND 2 Puffs before bedtime. 10.2 g 1 05/10/2022 Active Additional Information Patient not taking.Reported on 01/19/2024 Magnesium Oxide (Elemental) 400 MG Oral Tablet Take by mouth 400 mg daily . 0 05/20/2022 Active Insulin Syringe 31G X 5/16" 0.3 ML Use to inject insulin twice daily. E11.9 60 Each 11/06/2023 Active Atorvastatin Calcium 40 MG Oral Tablet (Lipitor)Indication s:High triglycerides Take 1 Tablet by mouth in the morning. 90 Tablet 11/28/2023 Active Ezetimibe 10 MG Oral Tablet (Zetia)Indications: Hyperlipidemia with target LDL less than 70 Take 1 Tablet by mouth in the morning. 90 Tablet 11/28/2023 Active Fenofibrate 145 MG Oral Tablet (Tricor)Indications :High triglycerides Take 1 Tablet by mouth in the morning. 90 Tablet 11/28/2023 Active Sacubitril-Valsarta n 24-26 MG Oral Tablet [...] chew the tablet. 30 Tablet 11/29/2023 Active BD Pen Needle Imelda U/F 32G X 4 MM (Insulin Pen Needle)Indications: Type 2 diabetes mellitus with autonomic neuropathy, 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 helper insulin use (HCC) Use with insulin once daily 100 Each 1 12/13/2023 Active Dulaglutide 0.75 MG/0.5ML Subcutaneous Solution Pen-injector (Trulicity) Inject 0.75 mg under the skin once a week. 2 mL 12/14/2023 Active Spironolactone 25 MG Oral Tablet (Aldactone) Take 1 Tablet by mouth in the morning. 30 Tablet 12/19/2023 Active Gabapentin 300 MG Oral Capsule (Neurontin)Indicati ons:Neuropathy Take 1 Capsule by mouth in the [...] Solostar 100 UNIT/ML Subcutaneous Solution Pen-injector (Lantus SoloStar)Indication s:Type 2 diabetes mellitus with hemoglobin A1c goal of less than 7.0% ([facility]) Inject 55 Units under the skin daily. 45 mL 3 01/12/2024 Active Triamcinolone Acetonide 0.1 % External Cream (Aristocort)Indicat ions:Contact dermatitis, unspecified contact dermatitis type, unspecified trigger Apply topically to affected area 2 times a day as needed for Itching. Affected area: upper back. 60 g 0 01/12/2024 Active Metoprolol Succinate ER 50 MG Oral Tablet Extended Release 24 Hour (toPROL XL)Indications:HFrE F (heart failure with reduced ejection fraction) ([facility]) Take 1.5 Tablets by mouth in [...] 01/24/2024 Active Linzess 145 MCG Oral Capsule (linaCLOtide)Indica tions:Chronic constipation Take 1 Capsule by mouth daily before breakfast. 30 Capsule 3 01/31/2024 Active Doxycycline Hyclate 100 MG Oral CapsuleIndications: Wound of left lower extremity, subsequent encounter,Rhinosinu sitis Take 1 Capsule by mouth in the morning and 1 Capsule before bedtime. Do all this for 14 days. Take for 14 days. 28 Capsule 0 02/12/2024 02/26/2024 Active Metoclopramide HCl 5 MG Oral Tablet (Reglan)Indications :Gastroparesis TAKE 1 TABLET BY MOUTH IN THE MORNING, 1 TAB AT NOON AND 1 TAB BEFORE BEDTIME. 30 MINS BEFORE MEALS 90 Tablet 0 02/15/2024 Active Empagliflozin 10 MG Oral Tablet (Jardiance) Take 1 Tablet by mouth in the morning. 90 Tablet 3 02/21/2024 Active documented as of this encounter (statuses as of 02/23/2024) Active Problems Problem Noted Date Diagnosed Date Type 2 diabetes mellitus with autonomic neuropat 12/15/2023 Other acute pulmonary embolism without acute [...] as of this encounter (statuses as of 02/23/2024) Resolved Problems Problem Noted Date Diagnosed Date Resolved Date Type 2 diabetes mellitus wit h autonomic neuropathy 06/29/2022 12/19/2022 Neuropathy 04/07/2021 12/19/2022 Diabetic ketoacidosis withou t coma associated with type 2 diabetes mellitus 04/07/2021 05/06/2021 Overview: 02/2021 Fatigue 11/13/2011 05/10/2022 Esophageal reflux 10/04/2011 04/07/2021 documented as of this encounter (statuses as of 02/23/2024) Immunizations Name Administration Dates Next Due Seasonal [...] encounter Miscellaneous Notes * Telephone Encounter - Rohini Moya LPN - 02/23/2024 1:20 PM EDT Letter sent. * Telephone Encounter - Dany Caruso MD - 02/21/2024 12:17 PM EDT Please call the pt Your kidney function is normal Your diabetic lab is better --- please continue current meds documented in this encounter Plan of Treatment Upcoming Encounters Date Type Department Care Team (Late st Contact Info) Description 02/27/2024 11:20 AM EDT Office Visit Family Medicine [address] [place] [phone] Dany Caruso MD [address] [place] [address] [place] [address] 03/19/2024 10:30 AM EDT Telemedicine Cardiology, [place] [address] [place] [address] [place] [facility] Cardiology [address] [place] [address] 03/20/2024 8:30 AM EDT Office Visit Cardiology, [facility] [address] [address] Joaquina Hernández CRNP [address] [place] [address] 03/21/2024 9:00 AM EDT Office Visit Pharmacy, [address] [place] [address] [place] [address] 04/01/2024 8:40 AM EDT Office Visit [address] [place] [phone] Linda Vale CRNP [address] [place] [address] [place] [address] 06/07/2024 9:30 AM EDT Office Visit Gastroenterology [address] [place] [address] Marsha Loco [facility] [address] [place] [address] 08/28/2024 8:20 AM EST Office Visit [address] [place] [phone] Dany Caruso MD [address] [place] [address] [place] [address] Health Maintenance Due Date Last Done Comments [...] Exam 12/15/2024 12/15/2023, 0 12/19/2022, 05/06/2021 GFR 02/18/2025 02/19/2024, 01/21, 01/24/2024, Additional history exists Lipid Panel 12/13/2028 12/13/2023, 09/23, 05/18/2023, Additional history exists DTaP,Tdap,and Td Vaccines (3 - Td or Tdap) 06/23/2031 06/23/2021, 08/15/2011 GARDASIL-HPV IMMUNIZATION SERIES Aged Out No longer eligible based on patient's age to complete this topic MENINGOCOCCAL (MENACTRA/MENVEO) Aged Out No longer eligible based on patient's age to complete this topic documented as of this encounter Medical Devices Not on filedocumented as of this encounter Care Teams Design Architect Relationship Specialty Start Date End Date Dany Caruso MD [address] [place] [address] [place] [phone] PCP - General Family Medicine 04/07/21 documented as of this encounter
--- OUTSIDE RECORDS SUMMARY | 2024-03-24 07:23 | External Medical Summary | Summary of Care ---
Author Name Unknown Organization [facility] Address [address] [place] [address] Phone [phone] Care Team Providers Care Supervisor Lamp Shades Name Role Phone Dany Caruso MD Primary Care Provide r Reason for Visit * Reason Comments Outpatient Testing Encounter Details Date Type Department Care Team (Late st Contact Info) Description 03/07/2024 11:20 AM EDT Laboratory Laboratory, [facility] [address] [place] [phone] [facility] [address] [place] [address] High triglycerides; Type 2 diabetes mellitus with hemoglobin A1c goal of less than 7.0% ([facility]) Allergies Active Allergy Reactions Criticality Noted Date Comments Morphine 12/27/2013 Nausea, vomiting, diaphoresis Sulfa Antibiotics Itching 10/04/2011 documented as of this encounter (statuses as of 03/07/2024) Medications Medication Sig Dispensed Refills Start Date End Date Status OneTouch Verio w/Device KitIndications:Type 2 diabetes mellitus with hemoglobin A1c goal of less than 7.0% ([facility]) Use to test once a day E11.9 1 Kit 0 03/23/2022 Active Budesonide-Formotero l Fumarate 80-4.5 MCG/ACT [...] diabetes mellitus with autonomic neuropathy, unspecified whether roving technician insulin use (HCC) Use with insulin once daily 100 Each 1 12/13/2023 Active Dulaglutide 0.75 MG/0.5ML Subcutaneous Solution Pen-injector ([facility]) Inject 0.75 mg under the skin once [...] A1c goal of less than 7.0% ([facility]) Inject 55 Units under the skin daily. [...] (heart failure with reduced ejection fraction) ([facility]) Take 1.5 Tablets by mouth in the [...] as of this encounter (statuses as of 03/07/2024) Active Problems Problem Noted Date Diagnosed Date [...] as of this encounter (statuses as of 03/07/2024) Resolved Problems Problem Noted Date Diagnosed Date Resolved Date Type 2 diabetes mellitus wit h autonomic neuropathy 06/29/2022 12/19/2022 Neuropathy 04/07/2021 12/19/2022 Diabetic ketoacidosis withou t coma associated with type 2 diabetes mellitus 04/07/2021 05/06/2021 Overview: 02/2021 Fatigue 11/13/2011 05/10/2022 Esophageal reflux 10/04/2011 04/07/2021 documented as of this encounter (statuses as of 03/07/2024) Immunizations Name Administration Dates Next Due Seasonal [...] Care Team (Late st Contact Info) Description 03/19/2024 10:30 AM EDT Telemedicine Cardiology, [place] [address] [place] [address] [facility] [phone] 03/20/2024 8:30 AM EDT Office Visit Cardiology, [facility] [address] [place] [address] Joaquina Hernández CRNP [address] [place] [address] 03/21/2024 9:00 AM EDT Office Visit Pharmacy, [address] [place] [address] [place] [address] 04/01/2024 8:40 AM EDT Office Visit Family [address] [place] [phone] Linda Vale CRNP [address] [place] [address] [place] [address] 06/07/2024 9:30 AM EDT Office Visit Gastroenterology [address] [place] [address] Marsha Loco CRNP [address] [place] [address] 08/28/2024 8:20 AM EST Office Visit Family [address] [place] [phone] Dany Caruso MD [address] [place] [address] [place] [address] Pending Results Name Type Priority Associated Diagnoses Date /Time LIPID PANEL WITHOUT DIRECT LDL Lab Routine High triglycerides 03/07/2024 11:16 AM EDT BASIC METABOLIC PANEL Lab Routine Type 2 diabetes mellitus with hemoglobin A1c goal of less than 7.0% (HCC) 03/07/2024 11:16 AM EDT Health Maintenance Due Date Last Done Comments Pneumococcal Vaccine: Pediatrics (0 to 5 Years) and At-Risk Patients (6 to 64 Years) (1 of 2 - PCV) 1985 HIV Screening 1994 Hepatitis C Screening 1997 Hepatitis B (1 of 3 - 19+ 3-dose series) 1998 COVID-19 Vaccine ( - 2022- season) 2023 Depression Screening 08/31/2023 08/31/2022 Albumin/Creatinine Ratio 05/18/2024 023, 07/06/2022, 03/24/2022, Additional history exists Influenza Vaccine (FLU shot) (Season Ended) 2024 10/04/2011 HbA1c 08/20/2024 02/19/2024, 09/23, 05/18/2023, Additional history exists Diabetic Eye Exam 12/15/2024 12/15/2023, , 03/31/2022, Additional history exists Diabetic Foot Exam 12/15/2024 12/15/2023, 0 12/19/2022, 05/06/2021 GFR 02/18/2025 02/19/2024, 04, 01/24/2024, Additional history exists Lipid Panel 12/13/2028 [...] Visit Diagnoses Diagnosis High triglycerides Pure hyperglyceridemia Type 2 diabetes mellitus with hemoglobin A1c goal of less than 7.0% (HCC) documented in this encounter Care Teams Supervisor Lamp Shades Relationship Specialty Start Date End Date Dany Caruso MD [address] [place] [address] [place] [address] PCP - General Family Medicine 04/07/21 documented as of this encounter
--- OUTSIDE RECORDS SUMMARY | 2024-03-24 07:23 | External Medical Summary | Summary of Care ---
Author Name Unknown Organization [facility] Address [address] [place] [address] Phone [phone] Care Team Providers Care Leather Stitcher Name Role Phone Dany Caruso MD Primary Care Provide r Reason for Visit * Reason Comments Outpatient Testing Encounter Details Date Type Department Care Team (Late st Contact Info) Description 03/07/2024 11:20 AM EDT Laboratory Laboratory, [facility] [address] [place] [phone] [facility] [address] [place] [address] High triglycerides; Type 2 diabetes mellitus with hemoglobin A1c goal of less than 7.0% ([facility]) Allergies Active Allergy Reactions Criticality Noted Date Comments Morphine 12/27/2013 Nausea, vomiting, diaphoresis Sulfa Antibiotics Itching 10/04/2011 documented as of this encounter (statuses as of 03/07/2024) Medications Medication Sig Dispensed Refills Start Date End Date Status OneTouch Verio w/Device KitIndications:Type 2 diabetes mellitus with hemoglobin A1c goal of less than 7.0% ([facility]) Use to test once a day [...] diabetes mellitus with autonomic neuropathy, unspecified whether upper shaper insulin use (HCC) Use with insulin once daily 100 Each 1 12/13/2023 Active Dulaglutide 0.75 MG/0.5ML Subcutaneous Solution Pen-injector ([facility]) Inject 0.75 mg under the skin once [...] hemoglobin A1c goal of less than 7.0% ([facility]) Inject 55 Units under the skin [...] XL)Indications:HFrEF (heart failure with reduced ejection fraction) ([facility]) Take 1.5 Tablets by mouth in [...] as of this encounter Miscellaneous Notes * Result Encounter Note - Leslie Beaulieu RPh - 03/07/2024 1:03 PM EDT BMP stable since jardiance start, follow up at next [facility] visit. documented in this encounter Plan of Treatment Upcoming Encounters Date Type Department Care Team (Late st Contact Info) Description 03/19/2024 10:30 AM EDT Telemedicine Cardiology, [place] [address] [place] [address] [facility] [address] [facility] [id number] 03/20/2024 8:30 AM EDT Office Visit Cardiology, [facility] [address] [place] [address] Joaquina Hernández CRNP [address] [place] [address] 03/21/2024 9:00 AM EDT Office Visit Pharmacy, [address] [place] [address] [place] [address] 04/01/2024 8:40 AM EDT Office Visit Family Medicine [address] [place] [phone] Linda Vale CRNP [address] [place] [address] [place] [address] 06/07/2024 9:30 AM EDT Office Visit Gastroenterology [address] [place] [address] Marsha Loco CRNP [address] [place] [address] 08/28/2024 8:20 AM EST Office Visit Family Medicine [address] [place] [phone] Dany Caruso MD [address] [place] [address] [place] [address] Pending Results Name Type Priority Associated Diagnoses Date /Time LIPID PANEL WITHOUT DIRECT LDL Lab Routine High triglycerides 03/07/2024 11:16 AM EDT Health Maintenance Due [...] 01/22, 01/31/2024, Additional history exists Lipid Panel 12/13/2028 12/13/2023, [...] Procedure Name Priority Date/Time Associated Diagnosis Comments BASIC METABOLIC PANEL Routine 03/07/2024 11:16 AM EDT Type 2 diabetes mellitus with hemoglobin A1c goal of less than 7.0% ([facility]) documented in this encounter Results * (ABNORMAL) BASIC METABOLIC PANEL (03/07/2024 11:16 AM EDT) BUN 13 6 - 20 mg/dL 03/07/2024 12:28 PM EDT [facility] Creatinine 1.3(H) 0.6 - 1.2 mg/dL 03/07/2024 12:28 PM EDT [facility] Estimated Glomerular Filtration Rate 73 >=60 mL/min 03/07/2024 12:28 PM EDT [facility] Comment:eGFR is calculated b ased on the CKD-EPI 2020 equation Sodium 140 135 - 146 mmol/L 03/07/2024 12:28 PM EDT [facility] Potassium 4.8 3.5 - 5.1 mmol/L 03/07/2024 12:28 PM EDT [facility] Chloride 106 98 - 107 mmol/L 03/07/2024 12:28 PM EDT [facility] CO2 26 22 - 32 mmol/L 03/07/2024 12:28 PM EDT [facility] Anion Gap 8 7 - 15 mmol/L 03/07/2024 12:28 PM EDT [facility] [place] [facility] Glucose 143(H) 70 - 120 mg/dL 03/07/2024 12:28 PM EDT [facility] Calcium 9.2 8.4 - 10.2 mg/dL 03/07/2024 12:28 PM EDT [facility] Blood Venous blood specimen / Unknown Venipuncture / Unknown 03/07/2024 11:16 AM EDT 03/07/2024 11:16 AM EDT [facility] LAB BLOOD OR DERABLES [facility]10 [address] [facility] [place] [address] documented in this encounter Visit Diagnoses Diagnosis High triglycerides Pure hyperglyceridemia Type 2 diabetes mellitus with hemoglobin A1c goal of less than 7.0% (HCC) documented in this encounter Care Teams Leather Stitcher Relationship Specialty Start Date End Date Dany Caruso MD [address] [place] [address] [place] [phone] PCP - General Family Medicine 04/07/21 documented as of this encounter
--- OUTSIDE RECORDS SUMMARY | 2024-03-24 07:23 | External Medical Summary | Summary of Care ---
Author Name Unknown Organization [facility] Address [address] [place] [address] Phone [phone] Care Team Providers Care Tile Fitter Name Role Phone Dany Caruso MD Primary Care Provide r Reason for Visit * Reason Comments Forms Request Encounter Details Date Type Department Care Team (Late st Contact Info) Description 02/27/2024 11:20 AM EDT Office Visit Family Medicine [address] [phone] Dany Caruso MD [address] [place] [address] [place] [address] Encounter for completion of form with patient* Allergies Active Allergy Reactions Criticality Noted Date Comments Morphine 12/27/2013 Nausea, vomiting, diaphoresis Sulfa Antibiotics Itching 10/04/2011 documented as of this encounter (statuses as of 02/27/2024) Medications Medication Sig Dispensed Refills Start Date End Date Status OneTouch Verio w/Device KitIndications:Type 2 diabetes mellitus with hemoglobin A1c goal of less than 7.0% ([facility]) Use to test once a day E11.9 [...] diabetes mellitus with autonomic neuropathy, unspecified whether nursing home insulin use (HCC) Use with insulin [...] goal of less than 7.0% ([facility]) Inject 55 Units under the skin daily. [...] XL)Indications:HFrEF (heart failure with reduced ejection fraction) ([facility]) Take 1.5 Tablets by mouth in the [...] as of this encounter (statuses as of 02/27/2024) Active Problems Problem Noted Date Diagnosed Date [...] as of this encounter (statuses as of 02/27/2024) Resolved Problems Problem Noted Date Diagnosed Date Resolved Date Type 2 diabetes mellitus wit h autonomic neuropathy 06/29/2022 12/19/2022 Neuropathy 04/07/2021 12/19/2022 Diabetic ketoacidosis withou t coma associated with type 2 diabetes mellitus 04/07/2021 05/06/2021 Overview: 02/2021 Fatigue 11/13/2011 05/10/2022 Esophageal reflux 10/04/2011 04/07/2021 documented as of this encounter (statuses as of 02/27/2024) Immunizations Name Administration Dates Next Due Seasonal [...] Sign Reading Time Taken Comments Blood Pressure 114/66 02/27/2024 11:14 AM EDT Pulse 73 02/27/2024 11:14 AM EDT Temperature 36.3 C (97.3 F) 02/27/2024 11:14 AM E DT Respiratory Rate - - Oxygen Saturation 95% 02/27/2024 11:14 AM EDT Inhaled Oxygen Concentration - - Weight 106.6 kg (235 lb) 02/27/2024 11:14 AM EDT Height - - Body Mass Index 35.73 02/19/2024 12:16 PM EDT documented in this encounter Progress Notes * Dany Caruso MD - 02/27/2024 11:23 AM EDT Subjective: HPI: Man Day is a 43 year old male with hx of IDDM, hx of DKA, Gastroparesis, HTN, peripheral neuropathy, High TGL, ETOH abuse, hx of PE and HFrEF and cardiomyopathy seen for Pt is here again to complete his disability paperwork --- last time pt did not bring in his whole paperwork - pt applied for disability and it was rejected - currently going through a communications coordinator and the communications coordinator want to complete this form - pt is unsure under which diagnosis he is applying under - per pt he has fatigued, numbness in the feet and hands from neuropathy, SOB with exertion due to HFrEF and hx of PE Per pt he is feeling slightly better Patient Active Problem List Diagnosis Code Controlled substance agreement signed Z79.899 Type 2 diabetes mellitus with hemoglobin A1c goal of less than 7.0% ([facility]) E11.9 HTN, goal below 130/80 I10 Other proteinuria R80.8 High triglycerides E78.1 Gastroparesis K31.84 HFrEF (heart failure with reduced ejection fraction) ([facility]) I50.20 Acute pulmonary embolism without acute cor pulmonale ([facility]) I26.99 History of alcohol abuse F10.11 Gastro-esophageal reflux disease without esophagitis K21.9 Alcohol abuse, uncomplicated F10.10 Neuropathy G62.9 Other acute pulmonary embolism without acute cor pulmonale (HCC) I26.99 Type 2 diabetes mellitus with autonomic neuropathy (HCC) E11.43 Current Outpatient Medications Medication Sig Dispense Refill [employer] TechnologiesTouch Verio w/Device Kit Use to test once [...] or chew the tablet. 30 Tablet 5 BD Pen Needle Imelda U/F 32G X 4 MM (Insulin Pen Needle) Use with insulin once daily 100 Each 1 Dulaglutide 0.75 MG/0.5ML Subcutaneous Solution Pen-injector (ADP) Inject 0.75 mg under the skin once [...] mouth in the morning. 90 Tablet 3 Budesonide-Formoterol Fumarate 80-4.5 MCG/ACT Inhalation Aerosol (Symbicort) Inhale by mouth 2 Puffs in the morning AND 2 Puffs before bedtime. (Patient not taking: Reported on 01/19/2024) 10.2 g 1 No current facility-administered medications for this visit. Past Medical History: Diagnosis Date Chronic constipation DM type 2, goal HbA1c < 7% ([facility]) Gastroparesis GERD (gastroesophageal reflux disease) HTN, goal below 130/80 Other proteinuria Past Surgical History: Procedure Laterality Date CARDIAC SURGERY PROCEDURE NEC Age 3 Open heart surgery for 2 holes in ventricular septum COLONOSCOPY, DIAGNOSTIC (RECTUM) 01/10/2014 COLONOSCOPY FLEXIBLE PROXIMAL DIAGNOSTIC performed by Nora Patricia DO at [facility] EGD, FLEXIBLE, DIAGNOSTIC 01/24/2014 ESOPHAGOGASTRODUODENOSCOPY (EGD), FLEXIBLE, TRANSORAL, DIAGNOSTIC performed by Scott Espinoza MD at [facility] EGD, FLEXIBLE, W/BIOPSY 12/14/11 mild gastritis negative for HPylori EGD, W/ENDOSCOPIC US 01/24/2014 ESOPHAGOGASTRODUODENOSCOPY (EGD), FLEXIBLE, TRANSORAL, ENDOSCOPIC ULTRASOUND performed by Scott Bailey MD at [facility] Review of patient's allergies indicates: Allergen Reactions Morphine Nausea, vomiting, diaphoresis Sulfa Antibiotics Itching No family history on file. Social History Tobacco Use Smoking status: Former Current packs/day: 0.00 Average packs/day: 1 pack/day for 4.0 years (4.0 ttl pk-yrs) Types: Cigarettes Start date: 10/23/2003 Quit date: 10/23/2007 Years since quittin.3 Smokeless tobacco: Never Substance Use Topics Alcohol use: Yes Comment: Around holidays Vaping/E-Cigarette Use Vaping/E-Cigarette Use Never User Vaping/E-Cigarette Substances Vaping/E-Cigarette Devices ROS: -Per HPI OBJECTIVE: BP 114/66 | Pulse 73 | Temp 36.3 C (97.3 F) | Wt 106.6 kg (235 lb) | SpO2 95% | BMI 35.73 kg/m | BSA 2.26 m PHYSICAL EXAM: Vitals are reviewed General:. NAD, well developed HEENT:. Normal Conjunctiva, EOMI MSK:. Normal gait Psych:. AAOx3, normal affect ASSESSMENT/PLAN: Form completed - will get a copy and scanned it in the chart Encounter for completion of form with patient (Primary) I spent a total of 30-39 minutes (exact time 33 mins) on the date of service in preparation, delivery, and documentation of the care provided to Man Day excluding any time spent in the performance of separately billed services. Dany Caruso MD Family medicine, [address] [address] documented in this encounter Nursing Notes * Zahra Pimentel CMA - 02/27/2024 11:13 AM EDT He is here to get the rest of the form completed from the last visit. documented in this encounter Plan of Treatment Upcoming Encounters Date Type Department Care Team (Late st Contact Info) Description 03/19/2024 10:30 AM EDT Telemedicine Cardiology, [address] [address] [facility] Cardiology [address] [place] [address] 03/20/2024 8:30 AM EDT Office Visit [facility] [place] [address] Joaquina Hernández CRNP [address] [place] [address] 03/21/2024 9:00 AM EDT Office Visit Pharmacy, [address] [place] [address] [place] [address] 04/01/2024 8:40 AM EDT Office Visit Family Medicine [address] [place] [phone] Linda Vale [address] [place] [address] 06/07/2024 9:30 AM EDT Office Visit Gastroenterology [address] [place] [address] Marsha Loco CRNP [address] [place] [address] 08/28/2024 8:20 AM EST Office Visit Family Medicine [address] [place] [phone] Dany Caruso MD [address] [place] [address] [place] [address] Health Maintenance Due Date Last Done Comments [...] as of this encounter Visit Diagnoses Diagnosis Encounter for completion of form with patient- Primary documented in this encounter Care Teams Tile Fitter Relationship Specialty Start Date End Date Dany Caruso MD [address] [place] [address] [place] [address] PCP - General Family Medicine 04/07/21 documented as of this encounter
--- OUTSIDE RECORDS SUMMARY | 2024-03-24 07:23 | External Medical Summary ---
Author Name Unknown Address Unknown Organization K01:[facility] - [address] [facility] [address] Laboratory Report Ordering Provider Test Date Status JASON MUNSON 03/07/2024 11:16:08 Hilda l Observation Date Value Abnormality Reference (Units ) Status Triglyceride 03/07/2024 11:16:08 304 Above high normal <=174 (mg/dL) Final Triglyceride Reference Range s (mg/dL):
<150 Acceptable
150-174 Borderline high
175-499 High
>=500 Very high Cholesterol 03/07/2024 11:16:08 141 <200 (mg /dL) Final Total Cholesterol Reference Ranges (mg/dL):
<200 Desirable
200-239 Borderline high
>=240 High HDL 03/07/2024 11:16:08 46 >39 (mg/dL ) Final HDL Cholesterol Reference Ra nges (mg/dL):
>=60 High (Desirable)
<50 Low (Undesirable) For Females
<40 Low (Undesirable) For Males NON-HDL CHOLESTEROL 03/07/2024 11:16:08 95 <=159 (mg/dL) Final Non-HDL Cholesterol Referenc e Range (mg/dL):
<100 Target level for high risk ASCVD patient
<130 Optimal for general population
130-159 Near optimal for general population
160-189 Borderline High
190-219 High
>=220 Very High LDL, (calculated) 03/07/2024 11:16:08 34 <= 129 (mg/dL) Final LDL Cholesterol Reference Ra nges (mg/dL):
<70 Target level for high risk ASCVD patient
<100 Optimal for general population
100-129 Near optimal for general population
130-159 Borderline high
160-189 High
>=190 Very high Performing Location [facility] [place] [address] [facility] [address]
--- OUTSIDE RECORDS SUMMARY | 2024-03-24 07:24 | External Medical Summary | Summary of Care ---
Author Name Unknown Organization [facility] Address [address] [place] [address] Phone [phone] Care Team Providers Care Metal Window Screen Assembler Name Role Phone Dany Caruso MD Primary Care Provide r Reason for Visit * Reason Onset Date Comments Information 02/19/2024 Encounter Details Date Type Department Care Team (Late st Contact Info) Description 02/19/2024 Telephone [facility], [facility] [address] [facility] [place] [address] Stu Toscano MD [address] [place] [address] Information Allergies Active Allergy Reactions Criticality Noted Date Comments Morphine 12/27/2013 Nausea, vomiting, diaphoresis Sulfa Antibiotics Itching 10/04/2011 documented as of this encounter (statuses as of 02/19/2024) Medications Medication Sig Dispensed Refills Start Date End Date Status OneTouch Verio w/Device KitIndications:Type 2 diabetes mellitus with hemoglobin A1c goal of less than 7.0% ([facility]) Use to test once [...] Tablet before bedtime. 180 Tablet 11/28/2023 Active glipiZIDE ER 10 MG Oral Tablet Extended Release 24 Hour (glipiZIDE XL)Indications:Type 2 diabetes mellitus with hemoglobin A1c goal of less than 7.0% (HCC) Take 1 Tablet by mouth in the morning. 30 minutes before a meal.. 30 Tablet 11/29/2023 Active Pantoprazole Sodium 40 MG Oral Tablet [...] Use with insulin once daily 100 Each 12/13/2023 Active Dulaglutide 0.75 MG/0.5ML Subcutaneous Solution [facility] Inject 0.75 mg under the skin once a week. 2 mL 12/14/2023 Active Spironolactone 25 MG Oral Tablet (Aldactone) Take 1 Tablet by mouth in the morning. 30 Tablet 12/19/2023 Active Gabapentin 300 MG Oral Capsule (Neurontin)Indicati ons:Neuropathy Take 1 Capsule by mouth in the morning and 1 Capsule at noon and 1 Capsule before bedtime. 90 Capsule 12/19/2023 Active OneTouch Verio In Vitro Strip [...] hemoglobin A1c goal of less than 7.0% ([facility]) Inject 55 Units under the skin daily. [...] F (heart failure with reduced ejection fraction) ([facility]) Take 1.5 Tablets by mouth in the [...] BEFORE MEALS 90 Tablet 0 02/15/2024 Active documented as of this encounter (statuses as of 02/19/2024) Active Problems Problem Noted Date Diagnosed Date [...] as of this encounter (statuses as of 02/19/2024) Resolved Problems Problem Noted Date Diagnosed Date Resolved Date Type 2 diabetes mellitus wit h autonomic neuropathy 06/29/2022 12/19/2022 Neuropathy 04/07/2021 12/19/2022 Diabetic ketoacidosis withou t coma associated with type 2 diabetes mellitus 04/07/2021 05/06/2021 Overview: 02/2021 Fatigue 11/13/2011 05/10/2022 Esophageal reflux 10/04/2011 04/07/2021 documented as of this encounter (statuses as of 02/19/2024) Immunizations Name Administration Dates Next Due Seasonal [...] encounter Miscellaneous Notes * Telephone Encounter - Anaya Swanson PHARM Tech - 02/19/2024 6:18 PM EDT Pt requesting HIGH PRIORITY due to it is time sensitive forms Pt stated the only the front paged were copied and faxed. So, half the info was missing when pt went to meeting. Pt is upset as this cost him dear time. 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 Fax- [phone] If there are any pages that the office needs please contact pt and he will supply them again. Thank you, Anaya Swanson, [facility] Rate And Cost Analyst II [facility])(Formerly [facility]pharm[facility]) 02/19/2024,6:27 PM documented in this encounter Plan of Treatment Upcoming Encounters Date Type Department Care Team (Late st Contact Info) Description 02/21/2024 8:30 AM EDT Office Visit Pharmacy, [address] [place] [address] [place] [address] 03/19/2024 10:30 AM EDT Telemedicine Cardiology, [place] [address] [place] [address] [facility] Cardiology [address] [place] [address] 03/20/2024 8:30 AM EDT Office Visit Cardiology, [facility] [address] [address] Joaquina Hernández CRNP [address] [place] [address] 04/01/2024 8:40 AM EDT Office Visit [address] [phone] Linda Vale CRNP [address] [place] [address] [place] [address] 06/07/2024 9:30 AM EDT Office Visit Gastroenterology [address] [place] [address] Marsha Loco CRNP [address] [place] [address] 08/28/2024 8:20 AM EST Office Visit [address] [phone] Dany Caruso MD [address] [place] [address] [place] [address] Health Maintenance Due Date Last Done Comments Pneumococcal Vaccine: Pediatrics (0 to 5 Years) and At-Risk Patients (6 to 64 Years) (1 of 2 - PCV) 1985 HIV Screening 1994 Hepatitis C Screening 1997 Hepatitis B (1 of 3 - 19+ 3-dose series) 1998 COVID-19 Vaccine ( - season) 2023 Depression Screening 08/31/2023 08/31/2022 *NEPHROLOGY REFERRAL DUE TO RESISTANT HTN 02/15/2024 HbA1c 04/13/2024 10/13/2023, 04/23, 12/06/2022, Additional history exists Albumin/Creatinine Ratio 05/18/2024 023, 07/06/2022, 03/24/2022, Additional history exists Influenza Vaccine (FLU shot) (Season Ended) 2024 10/04/2011 Diabetic Eye Exam 12/15/2024 12/15/2023, , 03/31/2022, Additional history exists Diabetic Foot Exam 12/15/2024 12/15/2023, 0 12/19/2022, 05/06/2021 GFR 01/30/2025 01/31/2024, 04/0 12/2023, 12/12/2023, Additional history exists Lipid Panel 12/13/2028 12/13/2023, 1211/2022, 05/18/2023, Additional history exists DTaP,Tdap,and Td Vaccines (3 - Td or Tdap) 06/23/2031 06/23/2021, 08/15/2011 GARDASIL-HPV IMMUNIZATION SERIES Aged Out No longer eligible based on patient's age to complete this topic MENINGOCOCCAL (MENACTRA/MENVEO) Aged Out No longer eligible based on patient's age to complete this topic documented as of this encounter Medical Devices Not on filedocumented as of this encounter Care Teams Metal Window Screen Assembler Relationship Specialty Start Date End Date Dany Caruso MD [address] [place] [address] [place] [phone] PCP - General Family Medicine 04/07/21 documented as of this encounter
--- OUTSIDE RECORDS SUMMARY | 2024-03-24 07:24 | External Medical Summary | Summary of Care ---
Author Name Unknown Organization [facility] Address [address] [place] [address] Phone [phone] Care Team Providers Care Pushcart Peddler Name Role Phone Dany Caruso MD Primary Care Provide r Reason for Visit * Reason Onset Date Comments Status Check 01/25/2024 LM 02/04 Test Results 01/25/2024 Encounter Details Date Type Department Care Team (Late st Contact Info) Description 01/25/2024 Telephone Cardiology, [place] [address] [facility] [place] [address] [facility] [address] [facility] [place] [address] Status Check (LM 02/04); Test Results Allergies Active Allergy Reactions Criticality Noted Date Comments Morphine 12/27/2013 Nausea, vomiting, diaphoresis Sulfa Antibiotics Itching 10/04/2011 documented as of this encounter (statuses as of 02/13/2024) Medications Medication Sig Dispensed Refills Start Date End Date Status OneTouch Verio w/Device KitIndications:Typ e 2 diabetes mellitus with hemoglobin A1c goal of less than 7.0% ([facility]) Use to test once a day E11.9 1 Kit 0 03/23/2022 Active Budesonide-Formote rol Fumarate 80-4.5 MCG/ACT Inhalation [...] Active Dulaglutide 0.75 MG/0.5ML Subcutaneous Solution Pen-injector (Conductiv) Inject 0.75 mg under the skin once a week. 2 mL 12/14/2023 Active Metoclopramide HCl 5 MG Oral Tablet (Reglan)Indication s:Gastroparesis Take 1 Tablet by mouth in the morning and 1 Tablet at noon and 1 Tablet before bedtime. 30 minutes before meals. 90 Tablet 0 12/15/2023 Active Spironolactone 25 MG Oral Tablet (Aldactone) [...] hemoglobin A1c goal of less than 7.0% ([facility]) Inject 55 Units under the [...] EF (heart failure with reduced ejection fraction) ([facility]) Take 1.5 Tablets by mouth [...] before breakfast. 30 Capsule 3 01/31/2024 Active Rivaroxaban 15 MG Oral Tablet (Xarelto) Take 1 Tablet by mouth in the morning and 1 Tablet before bedtime. Do all this for 21 days. 42 Tablet 0 12/01/2023 4 Discontinue d(Medicatio n/Dose Changed) Doxycycline Hyclate 100 MG Oral CapsuleIndications :Wound of left ankle, subsequent encounter Take 1 Capsule by mouth in the morning and 1 Capsule before bedtime. Do all this for 7 days. Take for 7 days. 14 Capsule 0 01/12/2024 4 Discontinue d(Medicatio n/Dose Changed) documented as of this encounter (statuses as of 02/13/2024) Active Problems Problem Noted Date Diagnosed Date [...] as of this encounter (statuses as of 02/13/2024) Resolved Problems Problem Noted Date Diagnosed Date Resolved Date Type 2 diabetes mellitus wit h autonomic neuropathy 06/29/2022 12/19/2022 Neuropathy 04/07/2021 12/19/2022 Diabetic ketoacidosis withou t coma associated with type 2 diabetes mellitus 04/07/2021 05/06/2021 Overview: 02/2021 Fatigue 11/13/2011 05/10/2022 Esophageal reflux 10/04/2011 04/07/2021 documented as of this encounter (statuses as of 02/13/2024) Immunizations Name Administration Dates Next Due Seasonal [...] encounter Miscellaneous Notes * Telephone Encounter - Eric Phillips RPh - 02/13/2024 11:06 AM EDT Called pt for check in. At [facility] Nit reports he was treated with inhalers and Tylenolol. No Abx given. Still feeling pretty sick today per patient. He was at wound clinic yesterday, started on Doxycycline. Weight in office yesterday was 233 which is stable as compared to december. Weight at home while on the phone with me today was: 214 lbs---01/08 223 lbs --12/19 223 lbs---02/07 227 lbs ---02/12 Denies any edema in legs. He still feels SOB. Reports he is complaint with his lasix MTM will follow up next week to check back in on patient Eric Phillips Pharm D Clinical [facility] Pharmacist Cardiology 02/13/2024,11:08 AM * Telephone Encounter - Joaquina Hernández CRNP - 02/12/2024 1:55 PM EDT Thank you for keeping me looped in. Reviewed [facility] record and patient's ED visit on 02/09/24. Discharge Problem: Acute bronchitis due to human metapneumovirus * Telephone Encounter - Connie Maya LPN - 02/09/2024 2:55 PM EDT Contacted patient and he is getting ready to Head over to [facility] now. He is aware about nurse case management And When advised about disability paper work he states that this is the issue layers send paper work to provider and no one knows what to do with it. I notified him that right now he needs to go to ER and we can talk about Disability/nurse case management later He is agreeable * Telephone Encounter - Dayn Caruso MD - 02/09/2024 10:28 AM EDT Agree with ER visit to r/o acute on CHF I will discuss case management referral during clinic visit Regarding disability- pt needs to start the process (like start the application ) through State anddepending on what they require our clinic can provide * Addendum Note - Eric Phillips RPh - 02/08/2024 3:23 PM EDT Addended by: ERIC PHILLIPS on: 02/08/2024 03:23 PM Modules accepted: Orders * Telephone Encounter - Eric Phillips RPh - 02/08/2024 3:08 PM EDT Called patient for telemed appt but he is not doing well. Sounded very sick on the phone, wheezing and SOB. Reports this has been going on the last 4 days. Can't lie flat. Feels like has popcorn in his lungs. Feels he has fluid around his lungs and in his abdomen. Also reports he has fever and chills. Reports sneezing and coughing, ect. Weights: 214 lbs---01/08 223 lbs --12/19 223 lbs---02/07 Denies any missed doses of Xarelto or Lasix. I have advised patient to go to the ER for possible CHF exacerbation vs PNA ect. [facility] Of [facility], patient still confused and concerned about his disability paperwork. Feels like he doesn'tknow what to do. He would be agreeable to a nurse case management referral if possible? Eric Phillips Pharm D Clinical [facility] Pharmacist Cardiology 02/08/2024,3:09 PM * Telephone Encounter - Stefani Banda RN - 02/05/2024 10:27 AM EDT Left message for patient to return call. Stefani Banda RN * Telephone Encounter - Joaquina Hernández CRNP - 02/02/2024 3:04 PM EDT Sounds good. Thank you! * Telephone Encounter - Joaquina Hernández CRNP - 02/02/2024 2:01 PM EDT I am happy to see his renal function is improving. I don't want to stress the kidneys, but I do think the volume overload was contributing to worsening function. 1)Continue Current regimen. 2)Jesenia, can you call Man on Monday or Monday and do a status check. How is he feeling? Weights trending down? Breathing improved? 3) Depending on answer, will dictate next move with meds, and also how soon I will want him to haverepeat labs, 2 weeks out, possibly sooner. Joaquina Mcmanus * Telephone Encounter - Eric Phillips [facility] - 02/01/2024 2:41 PM EDT Scr improving. Joaquina--- please advise any next steps if needed? Latest Reference Range & Units 12/12/23 12:02 01/24/24 09:02 01/31/24 13:04 Sodium 135 - 146 mmol/L 135 141 141 Potassium 3.5 - 5.1 mmol/L 4.5 4.7 4.4 Chloride 98 - 107 mmol/L 97 (L) 104 104 CO2 22 - 32 mmol/L 22 26 26 BUN 6 - 20 mg/dL 21 (H) 29 (H) 19 Creatinine 0.6 - 1.2 mg/dL 0.9 1.6 (H) 1.3 (H) Estimated Glomerular Filtration Rate >=60 mL/min >90 54 (L) 70 Anion Gap 7 - 15 mmol/L 16 (H) 11 11 Glucose 70 - 120 mg/dL 507 (HH) 196 (H) 104 Calcium 8.4 - 10.2 mg/dL 9.1 9.7 9.8 (HH): Data is critically high (L): Data is abnormally low (H): Data is abnormally high * Telephone Encounter - Joaquina Hernández CRNP - 02/01/2024 1:32 PM EDT Thank you for the update Eric, will keep an eye out for his labs also. Thank you Dr. Wilkes for addressing the GI issues. Joaquina * Telephone Encounter - Dany Caruso MD - 01/31/2024 1:32 PM EDT Will try linzess - if no improvement then clinic visit * Telephone Encounter - Eric Phillips [facility] - 01/31/2024 11:31 AM EDT Called for patient for update. Reports SOB improving. He feels the change in diuretic is helping (HCTZ--> Lasix) however weight has not gone down. Denies any edema in legs. 225 lbs 01/30 223 lbs 01/24 225 lbs---01/22 214 lbs---01/08 223 lbs --12/19 Knows he is due for BMP, will have done today.MTM will follow up with results. Noted a second issue. Reports pain when moving bowels. Reports this escalating. Reports his stool is not hard/doesn't feel constipated. States Linzess was discussed in the past and wonders about this. Asked if I could pass this message along to PCP Eric Phillips Pharm D Clinical [facility] Pharmacist Cardiology 01/31/2024,11:31 AM * Telephone Encounter - Joaquina Hernández CRNP - 01/26/2024 4:18 PM EDT Noted. Thank you. * Telephone Encounter - Stefani Banda RN - 01/26/2024 11:05 AM EDT I called pt for f/u after DTP. States he does feel less pressure on lungs. But SOB has not improved. Denies any swelling. Weight yesterday 223 Has not weighed himself yet today He does not write down his weights. Pt educated on proper way to do daily weights; first thing in the morning after using the bathroom and write it down. Pt advised of lab results and aware to have repeat lab work next week. Pt does have a CM following with him, but I do not know if it is complex CM. Stefani Banda RN * Telephone Encounter - Joaquina Hernández CRNP - 01/25/2024 4:09 PM EDT Klever Hudson and Jesenia, It is a good question. I have to wonder if his hypervolemia isnt the big trigger. Lets continue hismeds. Jesenia please call him in a few days like Eric asked and he needs to have repeat labs within a week. I placed an order for repeat BMP for next week if needed. Thanks oJaquina * Telephone Encounter - Eric Phillips [facility] - 01/25/2024 3:55 PM EDT Joaquina, Please see patients labs. ProBNP normal. Scr significantly bumped Im not sure if BONILLA is related to when aldactone was started end of Nov (pt delayed getting labs until now) or due to hypervolemia (see my note from 01/22, patient up in weight 9 lbs so HCTZ switched toLasix starting 01/23. Previously on HCTZ 25 mg daily 223 lbs---01/23 (per community health conference assistant note); lasix 40 mg daily started 225 lbs---01/22 214 lbs---01/08 223 lbs --12/19 I am out of the office until Monday. Please advise. I do have Jesenia calling tomorrow to check back on his weights Latest Reference Range & Units 01/24/24 09:02 BNP, NT-Pro <300 pg/mL 111 Latest Reference Range & Units 12/12/23 12:02 01/24/24 09:02 Sodium 135 - 146 mmol/L 135 141 Potassium 3.5 - 5.1 mmol/L 4.5 4.7 Chloride 98 - 107 mmol/L 97 (L) 104 CO2 22 - 32 mmol/L 22 26 BUN 6 - 20 mg/dL 21 (H) 29 (H) Creatinine 0.6 - 1.2 mg/dL 0.9 1.6 (H) Estimated Glomerular Filtration Rate >=60 mL/min >90 54 (L) Anion Gap 7 - 15 mmol/L 16 (H) 11 Glucose 70 - 120 mg/dL 507 (HH) 196 (H) Calcium 8.4 - 10.2 mg/dL 9.1 9.7 (HH): Data is critically high (L): Data is abnormally low (H): Data is abnormally high documented in this encounter Plan of Treatment Upcoming Encounters Date Type Department Care Team (Late st Contact Info) Description 02/19/2024 10:30 AM EDT Telemedicine Cardiology, [place] [address] [facility] [place] [address] [facility] Cardiology [address] [facility] [place] [address] 02/21/2024 8:30 AM EDT Office Visit Pharmacy, [address] [place] [address] [place] [address] 03/20/2024 8:30 AM EDT Office Visit Cardiology, [facility] [address] [facility] [place] [address] Joaquina Hernández CRNP [address] [facility] [place] [address] 04/01/2024 8:40 AM EDT Office [address] [place] [phone] Linda Vale CRNP [address] [place] [address] [place] [address] 08/28/2024 8:20 AM EST Office Visit Family [address] [place] [phone] Dany Caruso MD [address] [place] [address] [place] [address] Health Maintenance Due Date Last Done Comments Pneumococcal Vaccine: Pediatrics (0 to 5 Years) and At-Risk Patients (6 to 64 Years) (1 of 2 - PCV) 1985 HIV Screening 1994 Hepatitis C Screening 1997 Hepatitis B (1 of 3 - 19+ 3-dose series) 1998 COVID-19 Vaccine ( - 2022- season) 2023 Depression Screening 08/31/2023 08/31/2022 HbA1c 04/13/2024 10/13/2023, 04/23, 12/06/2022, Additional history [...] Not on filedocumented as of this encounter Results * (ABNORMAL) BASIC METABOLIC PANEL (01/31/2024 1:04 PM EDT) BUN 19 6 - 20 mg/dL 01/31/2024 8:40 PM EDT [facility] Creatinine 1.3(H) 0.6 - 1.2 mg/dL 01/31/2024 8:40 PM EDT [facility] Estimated Glomerular Filtration Rate 70 >=60 mL/min 01/31/2024 8:40 PM EDT [facility] Comment:eGFR is calculated b ased on the CKD-EPI 2020 equation Sodium 141 135 - 146 mmol/L 01/31/2024 8:40 PM EDT [facility] Potassium 4.4 3.5 - 5.1 mmol/L 01/31/2024 8:40 PM EDT [facility] Chloride 104 98 - 107 mmol/L 01/31/2024 8:40 PM EDT [facility] CO2 26 22 - 32 mmol/L 01/31/2024 8:40 PM EDT [facility] Anion Gap 11 7 - 15 mmol/L 01/31/2024 8:40 PM EDT [facility] Glucose 104 70 - 120 mg/dL 01/31/2024 8:40 PM EDT [facility] Calcium 9.8 8.4 - 10.2 mg/dL 01/31/2024 8:40 PM EDT [facility] Blood Venous blood specimen / Unknown Venipuncture / Unknown 01/31/2024 1:04 PM EDT 01/31/2024 1:05 PM EDT Joaquina TONG LAB BLOOD ORDER [facility] [address] [place] [address] documented in this encounter Visit Diagnoses Diagnosis HFrEF (heart failure with reduced ejection fraction) (HCC)- Primary Chronic constipation Unspecified constipation documented in this encounter Care Teams Pushcart Peddler Relationship Specialty Start Date End Date Dany Caruso MD [address] [place] [address] [place] [phone] PCP - General Family Medicine 04/07/21 documented as of this encounter
--- OUTSIDE RECORDS SUMMARY | 2024-03-24 07:24 | External Medical Summary | Summary of Care ---
Author Name Unknown Organization [facility] Address [address] [place] [address] Phone [phone] Care Team Providers Care Director Of Loss Prevention Name Role Phone Dany Caruso MD Primary Care Provide r Reason for Visit * Reason Comments Outpatient Testing Encounter Details Date Type Department Care Team (Late st Contact Info) Description 02/19/2024 12:50 PM EDT Laboratory Laboratory [address] [place] [phone] [place] [address] Arrived Allergies Active Allergy Reactions Criticality Noted Date Comments Morphine 12/27/2013 Nausea, vomiting, diaphoresis Sulfa Antibiotics Itching 10/04/2011 documented as of this encounter (statuses as of 02/19/2024) Medications Medication Sig Dispensed Refills Start Date End Date [facility]/Device KitIndications:Type 2 diabetes mellitus with hemoglobin A1c goal of less than 7.0% ([facility]) Use to test once a day E11.9 [...] 0 05/20/2022 Active Insulin Syringe 31G X 516" 0.3 ML Use to inject insulin twice [...] diabetes mellitus with autonomic neuropathy, unspecified whether terminal system operator insulin use (HCC) Use with insulin once daily 100 Each 12/13/2023 Active Dulaglutide 0.75 MG/0.5ML Subcutaneous Solution Pen-injector ([facility]) Inject 0.75 mg under the skin once [...] hemoglobin A1c goal of less than 7.0% ([facility]) Inject 55 Units under the skin daily. [...] F (heart failure with reduced ejection fraction) ([facility]) Take 1.5 Tablets by mouth in the [...] 02/21/2024 8:30 AM EDT Office Visit Pharmacy, [address] [place] [address] [place] [address] 03/19/2024 10:30 AM EDT Telemedicine Cardiology, [place] [address] [place] [address] [facility] Cardiology [address] [facility] [place] [address] 03/20/2024 8:30 AM EDT Office Visit Cardiology, [facility] [address] [place] [address] Joaquina Hernández CRNP [address] [place] [address] 04/01/2024 8:40 AM EDT Office Visit Family Medicine [address] [place] [phone] Linda Vale CRNP [address] [place] [address] [place] [address] 06/07/2024 9:30 AM EDT Office Visit Gastroenterology [address] [place] [address] Marsha Loco CRNP [address] [place] [address] 08/28/2024 8:20 AM EST Office Visit Family Medicine [address] [place] [phone] Dany Caruso MD [address] [place] [address] [place] [address] Health Maintenance Due Date Last Done Comments Pneumococcal Vaccine: Pediatrics (0 to 5 Years) and At-Risk Patients (6 to 64 Years) (1 of 2 - PCV) 1985 HIV Screening 1994 Hepatitis C Screening 1997 Hepatitis B (1 of 3 - 19+ 3-dose series) 1998 COVID-19 Vaccine ( - 2022- season) 2023 Depression Screening 08/31/2023 08/31/2022 *NEPHROLOGY [...] filedocumented as of this encounter Care Teams Director Of Loss Prevention Relationship Specialty Start Date End Date Dany Caruso MD [address] [place] [address] [place] [address] PCP - General Family Medicine 04/07/21 documented as of this encounter
--- OUTSIDE RECORDS SUMMARY | 2024-03-24 07:24 | External Medical Summary | Summary of Care ---
Author Name Unknown Organization [facility] Address [address] [place] [address] Phone [phone] Care Team Providers Care Conventions Reservationist Name Role Phone Dany Caruso MD Primary Care Provide r Reason for Visit * Reason Onset Date Comments Test Results 02/21/2024 Encounter Details Date Type Department Care Team (Late st Contact Info) Description 02/21/2024 Telephone Family Medicine [address] [phone] Dany Caruso MD [address] [place] [address] [place] [address] Test Results Allergies Active Allergy Reactions Criticality Noted Date Comments Morphine 12/27/2013 Nausea, vomiting, diaphoresis Sulfa Antibiotics Itching 10/04/2011 documented as of this encounter (statuses as of 02/21/2024) Medications Medication Sig Dispensed Refills Start Date End Date Status OneTouch Verio w/Device KitIndications:Type 2 diabetes mellitus with hemoglobin A1c goal of less than 7.0% ([facility]) Use to test once a [...] diabetes mellitus with autonomic neuropathy, 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 (HCC) Use with insulin once [...] hemoglobin A1c goal of less than 7.0% ([facility]) Inject 55 Units under the [...] F (heart failure with reduced ejection fraction) ([facility]) Take 1.5 Tablets by mouth [...] as of this encounter (statuses as of 02/21/2024) Active Problems Problem Noted Date Diagnosed Date [...] as of this encounter (statuses as of 02/21/2024) Resolved Problems Problem Noted Date Diagnosed Date Resolved Date Type 2 diabetes mellitus wit h autonomic neuropathy 06/29/2022 12/19/2022 Neuropathy 04/07/2021 12/19/2022 Diabetic ketoacidosis withou t coma associated with type 2 diabetes mellitus 04/07/2021 05/06/2021 Overview: 02/2021 Fatigue 11/13/2011 05/10/2022 Esophageal reflux 10/04/2011 04/07/2021 documented as of this encounter (statuses as of 02/21/2024) Immunizations Name Administration Dates Next Due Seasonal [...] 11:20 AM EDT Office Visit Family Medicine [address] [place] [phone] Dany Caruso MD [address] [place] [address] [place] [address] 03/19/2024 10:30 AM EDT Telemedicine Cardiology, [place] [address] [facility] [place] [address] [facility] Cardiology [address] [facility] [place] [address] 03/20/2024 8:30 AM EDT Office Visit Cardiology, [facility] [address] [place] [address] Joaquina Hernández CRNP [address] [place] [address] 03/21/2024 9:00 AM EDT Office Visit Pharmacy, [address] [place] [address] [place] [address] 04/01/2024 8:40 AM EDT Office Visit [address] [phone] Linda Vale CRNP [address] [place] [address] [place] [address] 06/07/2024 9:30 AM EDT Office Visit Gastroenterology [address] [place] [address] Marsha Loco CRNP [address] [place] [address] 08/28/2024 8:20 AM EST Office Visit [address] [place] [phone] Dany Caruso MD [address] [place] [address] [place] [address] Health Maintenance Due Date Last Done Comments [...] filedocumented as of this encounter Care Teams Conventions Reservationist Relationship Specialty Start Date End Date Dany Caruso MD [address] [place] [address] [place] [phone] PCP - General Family Medicine 04/07/21 documented as of this encounter
--- OUTSIDE RECORDS SUMMARY | 2024-03-24 07:24 | External Medical Summary | Summary of Care ---
Author Name Unknown Organization [facility] Address [address] [place] [address] Phone [phone] Care Team Providers Care Sap Sd Analyst Name Role Phone Dany Caruso MD Primary Care Provide r Reason for Visit * Reason Onset Date Comments Forms Request 01/30/2024 Status Check 01/30/2024 Encounter Details Date Type Department Care Team (Late st Contact Info) Description 01/30/2024 Telephone Family [address] [phone] Dany Caruso MD [address] [place] [address] [place] [address] Forms Request; Status Check Allergies Active Allergy Reactions Criticality Noted Date Comments Morphine 12/27/2013 Nausea, vomiting, diaphoresis Sulfa Antibiotics Itching 10/04/2011 documented as of this encounter (statuses as of 02/19/2024) Medications Medication Sig Dispensed Refills Start Date End Date Status OneTouch Verio w/Device KitIndications:Ty pe 2 diabetes mellitus with hemoglobin A1c goal of less than 7.0% ([facility]) Use to test once a day E11.9 1 Kit 0 2 Active Budesonide-Formot ori Fumarate 80-4.5 MCG/ACT Inhalation Aerosol (Symbicort)Indica tions:SOB (shortness of breath) Inhale by mouth 2 Puffs in the morning AND 2 Puffs before bedtime. 10.2 g 1 2 Active Additional Information Patient not taking.Reported on 01/19/2024 Magnesium Oxide (Elemental) 400 MG Oral Tablet Take by mouth 400 mg daily . 0 2 Active Insulin Syringe 31G X 5/16" 0.3 ML Use to inject insulin twice daily. E11.9 60 Each 4 Active Atorvastatin Calcium 40 MG Oral Tablet (Lipitor)Indicati ons:High triglycerides Take 1 Tablet by mouth in the morning. 90 Tablet 3 4 Active Ezetimibe 10 MG Oral Tablet (Zetia)Indication s:Hyperlipidemia with target LDL less than 70 Take 1 Tablet by mouth in the morning. 90 Tablet 4 Active Fenofibrate 145 MG Oral Tablet (Tricor)Indicatio ns:High triglycerides Take 1 Tablet by mouth in the morning. 90 Tablet 4 Active Sacubitril-Valsar silva 24-26 MG Oral Tablet (Entresto) Take 1 Tablet by mouth in the morning and 1 Tablet before bedtime. 180 Tablet 4 Active glipiZIDE ER 10 MG Oral Tablet Extended Release 24 Hour (glipiZIDE XL)Indications:Ty pe 2 diabetes mellitus with hemoglobin A1c goal of less than 7.0% ([facility]) Take 1 Tablet by mouth in the morning. 30 minutes before a meal.. 30 Tablet 4 Active Pantoprazole Sodium 40 MG Oral Tablet Delayed Release (Protonix)Indicat ions:Gastroesopha geal reflux disease without esophagitis Take 1 Tablet by mouth in the morning. 30 minutes before the first meal of the day. Do not crush, split or chew the tablet. 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 2 mL 4 Active Spironolactone 25 MG Oral Tablet (Aldactone) Take 1 Tablet by mouth in the morning. 30 Tablet 5 4 Active Gabapentin 300 MG Oral Capsule (Neurontin)Indica tions:Neuropathy Take 1 Capsule by mouth in the morning and 1 Capsule at noon and 1 Capsule before bedtime. 90 Capsule 2 4 Active OneTouch Verio In Vitro Strip (Glucose Blood) Use as directed to test blood sugars up to three times daily DxE11.9 300 Strip 3 4 Active OneTouch Delica Lancets 33G Use as directed to test blood sugars up to three times daily DxE11.9 300 Each 3 4 Active Insulin Glargine Solostar 100 UNIT/ML Subcutaneous Solution Pen-injector (Lantus SoloStar)Indicati ons:Type 2 diabetes mellitus with hemoglobin A1c goal of less than 7.0% ([facility]) Inject 55 Units under the skin daily. 45 mL 3 4 Active Triamcinolone Acetonide 0.1 % External Cream (Aristocort)Indic ations:Contact dermatitis, unspecified contact dermatitis type, unspecified trigger Apply topically to affected area 2 times a day as needed for Itching. Affected area: upper back. 60 g 0 4 Active Metoprolol Succinate ER 50 MG Oral Tablet Extended Release 24 Hour (toPROL XL)Indications:HF rEF (heart failure with reduced ejection fraction) ([facility]) Take 1.5 Tablets by mouth in the morning. 135 Tablet 2 4 Active Furosemide 20 MG Oral Tablet (Lasix) Take 1 tablet by mouth daily. Take an extra tablet if weight gain 3 lbs in 1 day or 5 lbs in 1 week. 45 Tablet 5 4 Active Dexcom G7 Sensor Apply 1 sensor every 10 days. E11.9 3 Each 5 4 Active Rivaroxaban 15 MG Oral Tablet (Xarelto) Take 1 Tablet by mouth in the morning and 1 Tablet before bedtime. Do all this for 21 days. 42 Tablet 0 4 02/08/20 24 Discontinued(Me dication/Dose Changed) Metoclopramide HCl 5 MG Oral Tablet (Reglan)Indicatio ns:Gastroparesis Take 1 Tablet by mouth in the morning and 1 Tablet at noon and 1 Tablet before bedtime. 30 minutes before meals. 90 Tablet 0 4 02/15/20 24 Discontinued Doxycycline Hyclate 100 MG Oral CapsuleIndication s:Wound of left ankle, subsequent encounter Take 1 Capsule by mouth in the morning and 1 Capsule before bedtime. Do all this for 7 days. Take for 7 days. 14 Capsule 0 4 02/08/20 24 Discontinued(Me dication/Dose Changed) documented as of this encounter (statuses [...] encounter Miscellaneous Notes * Telephone Encounter - Zahra Pimentel CMA - 02/06/2024 10:[address] Wilkes looked at the form. It is a social security disability form. It needs to be done by a social security disability doctor. I called Man and let him know. He is coming to get the form. It will be out front for him. * Telephone Encounter - Sandra Salazar OSA - 02/05/2024 7:15 AM EDT Pt calling to check on status of form Pt aware of 5 to 7 buisness days for completion * Telephone Encounter - Nikky Llanes OSA - 01/30/2024 11:56 AM EDT Patient needs forms filled out for disabilty. Please call when done and he will case picker/ [phone]. Forms put in Dr. Wilkes box documented in this encounter Plan of Treatment Upcoming Encounters Date Type Department Care Team (Late st Contact Info) Description 02/21/2024 8:30 AM EDT Office Visit Pharmacy, [address] [place] [address] [place] [address] 03/19/2024 10:30 AM EDT Telemedicine Cardiology, [place] [address] [place] [address] [facility] [address] [facility] [place] [address] 03/20/2024 8:30 AM EDT Office Visit Cardiology, [facility] [address] [place] [address] Joaquina Hernández CRNP [address] [place] [address] 04/01/2024 8:40 AM EDT Office Visit Family Medicine [address] [place] [phone] Linda Vale CRNP [address] [place] [address] [place] [address] 06/07/2024 9:30 AM EDT Office Visit Gastroenterology [address] [place] [address] Marsha Loco CRNP [address] [place] [address] 08/28/2024 8:20 AM EST Office Visit Family [address] [place] [phone] Dany Caruso MD [address] [place] [address] [place] [phone] Health Maintenance Due Date Last Done Comments Pneumococcal Vaccine: Pediatrics (0 to 5 Years) and At-Risk Patients (6 to 64 Years) (1 of 2 - PCV) 1985 HIV Screening 1994 Hepatitis C Screening 1997 Hepatitis B (1 of 3 - 19+ 3-dose series) 1998 COVID-19 Vaccine (1 - 2022- season) 2023 Depression Screening 08/31/2023 [...] filedocumented as of this encounter Care Teams Sap Sd Analyst Relationship Specialty Start Date End Date Dany Caruso MD [address] [place] [address] [place] [address] PCP - General Family Medicine 04/07/21 documented as of this encounter
--- OUTSIDE RECORDS SUMMARY | 2024-03-24 07:24 | External Medical Summary ---
Author Name Unknown Address Unknown Organization K01:[facility] [place] [address] [facility] [address] Laboratory Report Ordering Provider Test Date Status BERNABE MUNSONCHARLINE 02/19/2024 12:52:33 Hilda l Observation Date Value Abnormality Reference (Units ) Status HbA1C 02/19/2024 12:52:33 7.7 Above high normal 4. 0-5.6 (%) Final The use of HbA1c to monitor glycemic status is based on normal hemoglobin and HbA composition. This test should not be used in patients with abnormal hemoglobin that affects the half life of the red blood cell or the in vivo glycation rates. Glucose, estimated average 02/19/2024 12:52:33 174 Above high normal <126 (mg/dL) Nir coronado [facility] [place] [facility] [address] [facility] [address]
--- OUTSIDE RECORDS SUMMARY | 2024-03-24 07:24 | External Medical Summary | Summary of Care ---
Author Name Unknown Organization [facility] Address [address] [place] [address] Phone [phone] Care Team Providers Care Crematory Operator Name Role Phone Dany Caruso MD Primary Care Provide r Reason for Visit * Reason Comments Dosage Adjustment Via Phone (anticoag Cl inic) Congestive Heart Failure Encounter Details Date Type Department Care Team ([facility] st Contact Info) Description 02/19/2024 10:30 AM EDT Telemedicine Cardiology, [address] [place] [address] [place] Cardiology [address] [place] [address] HFrEF (heart failure with reduced ejection fraction) ([facility])* Allergies Active Allergy Reactions Criticality Noted Date Comments Morphine 12/27/2013 Nausea, vomiting, diaphoresis Sulfa Antibiotics Itching 10/04/2011 documented as of this encounter (statuses as of 02/19/2024) Medications Medication Sig Dispensed Refills Start Date End Date Status OneTouch Verio w/Device KitIndications:Type 2 diabetes mellitus with hemoglobin A1c goal of less than 7.0% ([facility]) Use to test once a day [...] Active Dulaglutide 0.75 MG/0.5ML Subcutaneous Solution Pen-injector (MileIQ) Inject 0.75 mg under the skin once [...] goal of less than 7.0% ([facility]) Inject 55 Units under the skin [...] F (heart failure with reduced ejection fraction) ([facility]) Take 1.5 Tablets by mouth in [...] of this encounter Progress Notes * Becca Phillips, [facility] - 02/19/2024 10:17 AM EDT PHARMACY CHRONIC DISEASE MANAGEMENT - [...] Caruso MD Cardiology Provider: Joaquina Hernández CRNP Gis Mapping Technician: Not currently active with case management Urgent HF Access: Reviewed the following treatment locations for urgent HF symptoms with patient and provided them with contact information Cardiology based urgent heart failure clinic, [facility] [phone] HPI: Patient has heart failure assessment: Heart failure with REDUCED ejection fraction (SYStolic heart failure) without ischemic heart disease Patient has evidence of RV dysfunction: No Most recent LVEF: 35 % Date: 06/16/23 Modality: Echo Previous LVEF: 25 % Date: unknown Modality: unknown was following with [place] correction vitals: Does patient monitor BP at home? no Any dizziness or lightheadedness: not reviewed Home BP log results: N/a Does patient monitor HR at home? no Home HR log results: N/a Does patient monitor weight at home? yes Any increased edema or shortness of breath: Denies any edema; Still feeling SOB Home weight log results: 214 lbs---01/08 223 lbs --12/19 223 lbs---02/07 227 lbs ---02/12 220 lbs--02/18 Objective: BP Readings from Last 3 Encounters: 02/12/24 136/92 01/19/24 100/70 01/12/24 110/62 Pulse Readings from Last 3 Encounters: 02/12/24 104 01/19/24 79 01/12/24 88 Wt Readings from Last 3 Encounters: 02/12/24 105.7 kg (233 lb) 01/12/24 106.4 kg (234 lb 8 oz) 12/15/23 103.8 kg (228 lb 12.8 oz) Lab Results Component Value Date/Time CREATININE - [facility] 1.3 (H) 01/31/2024 01:04 PM CREATININE - [facility] 1.6 (H) 01/24/2024 09:02 AM CREATININE - [facility] 0.9 12/12/2023 12:02 PM CREATININE - [facility] 1.1 09/08/2016 02:32 PM CREATININE - [facility] 0.9 06/09/2015 03:06 PM CREATININE - [facility] 0.7 05/09/2011 05:00 PM CREATININE, RANDOM URINE - [facility] 50 05/18/2023 01:36 PM CREATININE, RANDOM URINE - [facility] 199 07/06/2022 12:48 PM CREATININE, RANDOM URINE - [facility] 151 03/24/2022 08:44 AM Lab Results Component Value Date/Time SODIUM - [facility] 141 01/31/2024 01:04 PM SODIUM - [facility] 141 01/24/2024 09:02 AM SODIUM - [facility] 135 12/12/2023 12:02 PM SODIUM - [facility] 143 09/08/2016 02:32 PM SODIUM - [facility] 144 06/09/2015 03:06 PM SODIUM - [facility] 141 05/09/2011 05:00 PM SODIUM, RANDOM URINE - [facility] 178 06/09/2015 03:06 PM Lab Results Component Value Date/Time POTASSIUM - [facility] 4.4 01/31/2024 01:04 PM POTASSIUM - [facility] 4.7 01/24/2024 09:02 AM POTASSIUM - [facility] 4.5 12/12/2023 12:02 PM POTASSIUM - [facility] 4.3 09/08/2016 02:32 [...] "TRANSFERRIN" Diet Review: not reviewed Current Cardiac Medications Metoprolol Er 50 mg tablet take 75 mg daily Lasix 20 mg daily Xarelto 20 mg daily Atorvastatin 40 mg daily Fenofibrate 145 mg daily Ezetimibe 10 mg daily Entresto 24-26 mg BID-started 11/28/23 Spironolactone 25 mg daily-started 12/19/23 Current DM Medications: Lantus 55 units daily Trulicity 0.75 mg weekly Glipiizde ER 10 mg daily *Pill box Eligible for [email or web address] pharmacy? Agree or Declined? Not reviewed Assessment & Plan: HFrEF -LVEF slightly improved -repeat ECHO in 6 months post Cardio visit on 09/15/23 -Hold off on changes for now Patient continues to have acute illness. Seeing his PCP today. He is taking all medications as prescribed. His weight is stable. Denies any lower extremity edema. Remains SOB. Once pt is feeling better, plan to consider SGLT2 when BG better controlled. Uncontrolled Dyslipidemia - Target LDL <70 -Continue current medications -TG much improved but remain elevated; Continue to work to lower BG 3. Uncontrolled T2DM -Following [facility] [place] -Using Dexcom G7 -Plan for SGLT2 in future when BG come down History of alcohol dependence -Pt aware of increased risk of pancreatitis with elevated TG >500 4. Controlled HTN -Goal BP <130/80 -In office readings controlled 5. History of acute PE\\recent DVT -05/2022; pt self D/c DOAC in past -Xarelto 6. Cellulitis -Reports new skin is growing -On Doxycycline Not following with wound clinic anymore due to not having transporting to clinic 7. Illness Reports he had cold sweats last night before going to bed. Reports his "guts hurt". Reports he is barely eating. Still taking Doxycycline for wound on his leg. Seeing PCP today. Medication changes: none Labs Due: Lipid panel 01/2024 (not ordered) Follow up: 4 weeks Becca Phillips [facility] Clinical Pharmacist Medication Therapy Disease Management 02/19/2024,10:30 AM documented in this encounter Plan of Treatment Upcoming Encounters Date Type Department Care Team (Late st Contact Info) Description 02/19/2024 12:00 PM EDT Office Visit Family Medicine [address] [place] [phone] Dany Caruso MD [address] [place] [address] [place] [address] 02/21/2024 8:30 AM EDT Office Visit Pharmacy, [address] [place] [address] [place] [address] 03/19/2024 10:30 AM EDT Telemedicine Cardiology, [place] [place] [address] [facility] [address] [place] [address] 03/20/2024 8:30 AM EDT Office Visit Cardiology, [facility] [address] [place] [address] Joaquina Hernández CRNP [address] [place] [address] 04/01/2024 8:40 AM EDT Office Visit [address] [place] [phone] Linda Vale CRNP [address] [place] [address] [place] [address] 08/28/2024 8:20 AM EST Office Visit [address] [place] [phone] Dany Caruso MD [address] [place] [address] [place] [address] Health Maintenance Due Date Last Done Comments [...] Primary documented in this encounter Care Teams Crematory Operator Relationship Specialty Start Date End Date Dany Caruso MD [address] [place] [address] [place] [phone] PCP - General Family Medicine 04/07/21 documented as of this encounter
--- OUTSIDE RECORDS SUMMARY | 2024-03-24 07:24 | External Medical Summary | Summary of Care ---
Author Name Unknown Organization [facility] Address [address] [place] [address] Phone [phone] Care Team Providers Care Systems Checkout Mechanic Name Role Phone Dany Caruso MD Primary Care Provide r Reason for Referral * Evaluate & Treat - Unlimited Visits (Within 10 days (routine)) - Authorized Specialty Diagnoses / Procedures Referred By Grant joseph Referred To Contact Gastroenterology Diagnoses Gastroparesis Dany Caruso MD [address] [place] [address] [place] [address] Referral ID Status Reason Start Date Expiration Date Visits Requested Visits Authorized [id number] Authorized Specialty Services Required 02/19/2024 999 999 Question Answer Referral Priority Within 10 days (routine) Where should this appointment be scheduled? [facility] For what condition is the patient being referred? All Gastro Conditions Reason for Visit * Reason Comments Re-Check Encounter Details Date Type Department Care Team (Late st Contact Info) Description 02/19/2024 12:00 PM EDT Office Visit Family Medicine [address] [place] [phone] Dany Caruso MD [address] [place] [address] [place] [phone] Encounter for completion of form with patient*; Type 2 diabetes mellitus with hemoglobin A1c goal of less than 7.0% ([facility]); HFrEF (heart failure with reduced ejection fraction) ([facility]); HTN, goal below 130/80; Gastroparesis Allergies Active Allergy Reactions Criticality Noted Date [...] the morning. 90 Tablet 3 11/28/2023 Active Sacubitril-Valsarta n 24-26 MG Oral Tablet (Entresto) Take 1 Tablet by mouth in the morning and 1 Tablet before bedtime. 180 Tablet 5 11/28/2023 Active glipiZIDE ER 10 MG Oral Tablet Extended Release 24 Hour (glipiZIDE XL)Indications:Type 2 diabetes mellitus with hemoglobin A1c goal of less than 7.0% (HCC) Take 1 Tablet by mouth in the morning. 30 minutes before a meal.. 30 Tablet 5 11/29/2023 Active Pantoprazole Sodium 40 MG Oral [...] diabetes mellitus with autonomic neuropathy, unspecified whether correction insulin use ([facility]) Use with insulin once daily 100 Each [...] Sign Reading Time Taken Comments Blood Pressure 130/70 02/19/2024 12:16 PM EDT Pulse 88 02/19/2024 12:16 PM EDT Temperature 36 C (96.8 F) 02/19/2024 12:16 PM EDT Respiratory Rate 16 02/19/2024 12:16 PM EDT Oxygen Saturation 96% 02/19/2024 12:16 PM EDT Inhaled Oxygen Concentration - - Weight 103.9 kg (229 lb) 02/19/2024 12:16 PM EDT Height 172.7 cm (5' 8") 02/19/2024 12:16 PM EDT Body Mass Index 34.82 02/19/2024 12:16 PM EDT documented in this encounter Progress Notes * Dany Caruso MD - 02/19/2024 12:22 PM EDT Subjective: HPI: Man Day is a 43 year old male with hx of IDDM, hx of DKA, Gastroparesis, HTN, peripheral neuropathy, High TGL, ETOH abuse, hx of PE and HFrEF and cardiomyopathy seen for Pt was 15 mins late to the appt Pt is here to discuss disability paperwork - pt applied for disability and it was rejected - currently going through a piling setter and the piling setter want to complete this form - pt is unsure under which diagnosis he is applying under - per pt he has fatigued, numbness in the feet and hands from neuropathy, SOB with exertion IDDM: - on Trulicity 0.75mg weekly, Glipizide ER 10mg daily, Lantus 55 units daily - compliant with meds L Leg wound : - currently on doxy - has not followed up with wound clinic yet ---- planning on setting a follow up with wound clinic - per pt wound is healing well Patient Active Problem List Diagnosis Code Controlled substance agreement signed [id number] Type 2 diabetes mellitus with hemoglobin A1c goal of less than 7.0% ([facility]) E11.9 HTN, goal below 130/80 I10 Other proteinuria R80.8 High triglycerides E78.1 Gastroparesis K31.84 HFrEF (heart failure with reduced ejection fraction) ([facility]) I50.20 Acute pulmonary embolism without acute cor pulmonale ([facility]) I26.99 History of alcohol abuse F10.11 Gastro-esophageal reflux disease without esophagitis K21.9 Alcohol abuse, uncomplicated F10.10 Neuropathy G62.9 Other acute pulmonary embolism without acute cor pulmonale ([facility]) I26.99 Type 2 diabetes mellitus with autonomic neuropathy ([facility]) E11.43 Current Outpatient Medications Medication Sig Dispense Refill OneTouch Verio w/Device Kit Use to test once a day E11.9 1 Kit 0 Budesonide-Formoterol Fumarate 80-4.5 MCG/ACT Inhalation Aerosol (Symbicort) Inhale by mouth 2 Puffs in the morning AND 2 Puffs before bedtime. (Patient not taking: Reported on 01/19/2024) 10.2 g 1 Magnesium Oxide (Elemental) 400 MG Oral Tablet [...] 1 Tablet before bedtime. 180 Tablet 5 glipiZIDE ER 10 MG Oral Tablet Extended Release 24 Hour (glipiZIDE XL) Take 1 Tablet by mouth in the morning. 30 minutes before a meal.. 30 Tablet 5 Pantoprazole Sodium 40 MG Oral [...] 1 Dulaglutide 0.75 MG/0.5ML Subcutaneous Solution Pen-injector ([employer] (mytaxi)) Inject 0.75 mg under the skin once [...] mouth daily before breakfast. 30 Capsule 3 Doxycycline Hyclate 100 MG Oral Capsule Take 1 Capsule by mouth in the morning and 1 Capsule beforebedtime. Do all this for 14 days. Take for 14 days. 28 Capsule 0 Metoclopramide HCl 5 MG Oral Tablet (Reglan) TAKE 1 TABLET BY MOUTH IN THE MORNING, 1 TAB AT NOON AND 1 TAB BEFORE BEDTIME. 30 MINS BEFORE MEALS 90 Tablet 0 No current facility-administered medications for this visit. Past Medical History: Diagnosis Date Chronic constipation DM type 2, goal HbA1c < 7% ([facility]) Gastroparesis GERD (gastroesophageal reflux disease) HTN, goal below 130/80 Other proteinuria Past Surgical History: Procedure Laterality Date CARDIAC SURGERY PROCEDURE NEC Age 3 Open heart surgery for 2 holes in ventricular septum COLONOSCOPY, DIAGNOSTIC (RECTUM) 01/10/2014 COLONOSCOPY FLEXIBLE PROXIMAL DIAGNOSTIC performed by Nora Patricia DO at END[facility]COPY [facility] EGD, FLEXIBLE, DIAGNOSTIC 01/24/2014 ESOPHAGOGASTRODUODENOSCOPY (EGD), FLEXIBLE, TRANSORAL, DIAGNOSTIC performed by Scott Espinoza MD at ENDOSCOPY [facility] EGD, FLEXIBLE, W/BIOPSY 12/14/11 mild gastritis negative for HPylori EGD, W/ENDOSCOPIC US 01/24/2014 ESOPHAGOGASTRODUODENOSCOPY (EGD), FLEXIBLE, TRANSORAL, ENDOSCOPIC ULTRASOUND performed by Scott Bailey MD at [facility]OSCOPY [facility] Review of patient's allergies indicates: Allergen Reactions [...] Vaping/E-Cigarette Devices ROS: -Per HPI OBJECTIVE: BP 130/70 | Pulse 88 | Temp 36 C (96.8 F) | Resp 16 | Ht 1.727 m (5' 8") | Wt 103.9 kg (229 lb)| SpO2 96% | BMI 34.82 kg/m | BSA 2.23 m PHYSICAL EXAM: Skin: L leg: stage 2 ulcer, + granulation tissue, no discharge or bleeding, no erythema ASSESSMENT/PLAN: Still having abd pain - taking reglan TID - due to persistent symptoms of gastroparesis referred the pt to GI Encounter for completion of form with patient (Primary) - form completed - pt stated that due to neuropathy it is difficult to feel things and he also feel SOB with activity due to hx of HF Type 2 diabetes mellitus with hemoglobin A1c goal of less than 7.0% ([facility]) - BASIC METABOLIC PANEL - HEMOGLOBIN A1C HFrEF (heart failure with reduced ejection fraction) ([facility]) - BASIC METABOLIC PANEL HTN, goal below 130/80 - BP wnl Gastroparesis - ADULT GASTROENTEROLOGY REFERRAL OP Dany Caruso MD [address] [id number] documented in this encounter Nursing Notes * Francesca Shankar RN - 02/19/2024 12:18 PM EDT To discuss form documented in this encounter Plan of Treatment Upcoming Encounters Date Type Department Care Team (Late st Contact Info) Description 02/21/2024 8:30 AM EDT Office Visit Pharmacy, [address] [place] [phone] [place] [address] 03/19/2024 10:30 AM EDT [address] [address] [facility] Cardiology [address] [place] [address] 03/20/2024 8:30 AM EDT Office Visit Cardiology, [facility] [address] [facility] [place] [address] Joaqunia Hernández CRNP [address] [place] [address] 04/01/2024 8:40 AM EDT Office Visit Family Medicine [address] [place] [phone] Linda Vale CRNP [address] [place] [address] [place] [address] 06/07/2024 9:30 AM EDT Office Visit Gastroenterology [address] [place] [address] Marsha Loco CRNP [address] [place] [address] 08/28/2024 8:20 AM EST Office Visit Family Medicine [address] [place] [phone] Dany Caruso MD [address] [place] [address] [place] [address] Pending Results Name Type Priority Associated Diagnoses Date /Time BASIC METABOLIC PANEL Lab Routine Type 2 diabetes mellitus with hemoglobin A1c goal of less than 7.0% (HCC) HFrEF (heart failure with reduced ejection fraction) (HCC) 02/19/2024 12:52 PM EDT HEMOGLOBIN A1C Lab Routine Type 2 diabetes mellitus with hemoglobin A1c goal of less than 7.0% (HCC) 02/19/2024 12:52 PM EDT Scheduled Referrals Name Type Priority Associated Diagnoses Order Schedule ADULT GASTROENTEROLOGY REFERRAL OP Referral Within 10 days (routine) Gastroparesis Ordered: 02/19/2024 Health Maintenance Due Date Last Done Comments Pneumococcal Vaccine: Pediatrics (0 to 5 Years) and At-Risk Patients (6 to 64 Years) (1 of 2 - PCV) 1985 HIV Screening 1994 Hepatitis C Screening 1997 Hepatitis B (1 of 3 - 19+ 3-dose series) 1998 COVID-19 Vaccine ( season) 2023 Depression Screening 08/31/2023 08/31/2022 *NEPHROLOGY [...] Additional history exists Lipid Panel 12/13/2028 12/13/2023, 12/11/2022, 05/18/2023, Additional history exists DTaP,Tdap,and Td Vaccines [...] for completion of form with patient- Primary Type 2 diabetes mellitus with hemoglobin A1c goal of less than 7.0% (HCC) HFrEF (heart failure with reduced ejection fraction) ([facility]) HTN, goal below 130/80 Unspecified essential hypertension Gastroparesis documented in this encounter Care Teams Systems Checkout Mechanic Relationship Specialty Start Date End Date Dany Caruso MD [address] [place] [address] [place] [phone] PCP - General Family Medicine 04/07/21 documented as of this encounter
--- OUTSIDE RECORDS SUMMARY | 2024-03-24 07:24 | External Medical Summary | Summary of Care ---
Author Name Unknown Organization [facility] Address [address] [place] [address] Phone [phone] Care Team Providers Care Signal Intelligence Analyst Name Role Phone Dany Caruso MD Primary Care Provide r Reason for Visit * Reason Comments Dosage Adjustment In Person (Anticoag Cl inic) Diabetes Follow-Up Encounter Details Date Type Department Care Team (Late st Contact Info) Description 02/21/2024 8:30 AM EDT Office Visit Pharmacy, [address] [place] [address] [place] [address] Type 2 diabetes mellitus with hemoglobin A1c goal of less than 7.0% ([facility])* Allergies Active Allergy Reactions Criticality [...] day E11.9 1 Kit 0 2 Active Budesonide-Formote rol Fumarate 80-4.5 MCG/ACT [...] insulin twice daily. E11.9 60 Each 5 4 Active Atorvastatin Calcium 40 MG Oral Tablet (Lipitor)Indicatio ns:High triglycerides Take 1 Tablet by mouth in the morning. 90 Tablet 3 4 Active Ezetimibe 10 MG Oral Tablet (Zetia)Indications :Hyperlipidemia with target LDL less than 70 Take 1 Tablet by mouth in the morning. 90 Tablet 3 4 Active Fenofibrate 145 MG Oral Tablet (Tricor)Indication s:High triglycerides Take 1 Tablet by mouth in the morning. 90 Tablet 3 4 Active Sacubitril-Valsart an 24-26 MG Oral Tablet (Entresto) Take 1 Tablet by mouth in the morning and 1 Tablet before bedtime. 180 Tablet 5 4 Active Pantoprazole Sodium 40 MG Oral Tablet Delayed Release (Protonix)Indicati ons:Gastroesophage al reflux disease without esophagitis Take 1 Tablet by mouth in the morning. 30 minutes before the first meal of the day. Do not crush, split or chew the tablet. 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 2 mL 3 4 Active Spironolactone 25 MG Oral Tablet (Aldactone) Take 1 Tablet by mouth in the morning. 30 Tablet 5 4 Active Gabapentin 300 MG Oral Capsule (Neurontin)Indicat [...] EF (heart failure with reduced ejection fraction) ([place] [...] days. E11.9 3 Each 5 4 Active Linzess 145 MCG Oral Capsule (linaCLOtide)Indic ations:Chronic constipation Take 1 Capsule by mouth daily before breakfast. 30 Capsule 3 4 Active Doxycycline Hyclate 100 MG Oral CapsuleIndications :Wound of left lower extremity, subsequent encounter,Rhinosin usitis Take 1 Capsule by mouth in the morning and 1 Capsule before bedtime. Do all this for 14 days. Take for 14 days. 28 Capsule 0 4 02/26/20 24 Active Metoclopramide HCl 5 MG Oral Tablet (Reglan)Indication s:Gastroparesis TAKE 1 TABLET BY MOUTH IN THE MORNING, 1 TAB AT NOON AND 1 TAB BEFORE BEDTIME. 30 MINS BEFORE MEALS 90 Tablet 0 4 Active Empagliflozin 10 MG Oral Tablet (Jardiance) Take 1 Tablet by mouth in the morning. 90 Tablet 3 4 Active glipiZIDE ER 10 MG Oral Tablet Extended Release 24 Hour (glipiZIDE XL)Indications:Typ e 2 diabetes mellitus with hemoglobin A1c goal of less than 7.0% ([facility]) Take 1 Tablet by mouth in the morning. 30 minutes before a meal.. 30 Tablet 5 4 02/21/20 24 Discontinued documented as of this encounter (statuses [...] this encounter Progress Notes * Clara Collins, [facility] - 02/21/2024 8:37 AM EDT Images from the original note were not included. Medication Therapy Disease Management [facility] - Diabetes Management Progress Note Man Day, identified by name and date of , is a 43 year old male being seen for diabetes management/education. Patient presents for return diabetic visit. DIABETES: Current diabetic medications: Lantus 50 units daily Trulicity 0.75mg once weekly Glipizide ER 10mg daily eGFR 80 as of 02/19/24 Medication Injection Site: Abdomen Lifestyle: Diet: unchanged Glucose Review/SMBG: Readings obtained from patient device Hypoglycemia: Does your blood sugar go below 70 mg/dL? No Hyperglycemia symptoms present: none Recent Labs Units 02/19/24 1252 10/13/23 1325 05/18/23 1336 HEMOGLOBIN A1C - [facility] % 7.7* 10.0* 11.5* Recent Labs Units 02/19/24 1252 01/31/24 1304 01/24/24 0902 ESTIMATED GLOMERULAR FILTRATION RATE - [facility] mL/min 80 70 54* CREATININE - [facility] mg/dL 1.2 1.3* 1.6* HYPERTENSION: Patient on ACEi/ARB: yes BP Readings from Last 3 Encounters: 02/19/24 130/70 02/12/24 136/92 01/19/24 100/70 Blood pressure at goal: yes HYPERLIPIDEMIA: Patient is taking moderate or high intensity statin: yes HEALTH MAINTENANCE REVIEW: Health Maintenance Due Topic Date Due Pneumococcal Vaccine: Pediatrics (0 to 5 Years) and At-Risk Patients (6 to 64 Years) (1 of 2 - PCV)Never done HIV Screening Never done Hepatitis C Screening Never done Hepatitis B (1 of 3 - 19+ 3-dose series) Never done COVID-19 Vaccine (2022- season) Never done Depression Screening 08/31/2023 Albumin/Creatinine Ratio 05/18/2024 ASSESSMENT & PLAN: ICD-10-CM 1. Type 2 diabetes mellitus with hemoglobin A1c goal of less than 7.0% (HCC) E11.9 Considerations: Gastroparesis HF - avoid Actos Did not tolerate metformin: severe abd pain Dexcom G7 sensor - connected to Dexcom Clarity, obtaining through pharmacy BG Readings - Blood sugars reviewed. Limited Dexcom data available. Overall readings have improved significantly. Recent A1c showed significant improvement from 10.0% --> 7.7%. Medications - Reviewed current regimen, patient is adherent to regimen. Discussed the goal of restarting Jardiance now that BG readings have improved. Patient agreeable. Instructed to STOP Glipizide upon starting. Additionally, will decrease basal insulin 10%. Patient aware to repeat BMP in x2 weeks. Diet, Exercise, Lifestyle - Significant stress/concern with completing disability paperwork. Brought in additional forms, given to Dr Wilkes and nursing team to complete. Patient is agreeable to SMBG daily with CGM (Dexcom G7) Patient aware to contact clinic if any hypoglycemia before next visit. MEDICATION CHANGES: yes, see below; preferred pharmacy: [facility] Diabetic Medications: DEC Lantus 45 units daily Trulicity 0.75mg once weekly START Jardiance 10mg daily STOP Glipizide ER 10mg daily eGFR > 90 as of 12/12/23 HEALTH MAINTENANCE INTERVENTIONS: Deferred d/t time constraints FOLLOW UP: Return to clinic in 4 weeks 03/21/2024 Clara Collins RPh Clinical Pharmacist - [employer] Medication Therapy Management Clinic 02/21/2024, 8:37 AM documented in this encounter Plan of Treatment Upcoming Encounters Date Type Department Care Team (Late st Contact Info) Description 02/27/2024 11:20 AM EDT Office Visit Family Medicine [address] [place] [phone] Dany Caruso MD [address] [place] [address] [place] [phone] 03/19/2024 10:30 AM EDT Telemedicine Cardiology, [address] [place] [address] [facility] [address] [facility] [address] 03/20/2024 8:30 AM EDT Office Visit Cardiology, [facility] [address] [place] [address] Joaquina Hernández CRNP [address] [place] [address] 03/21/2024 9:00 AM EDT Office Visit Pharmacy, [address] [place] [phone] [place] [address] 04/01/2024 8:40 AM EDT Office Visit [address] [phone] Linda Vale CRNP [address] [place] [address] [place] [address] 06/07/2024 9:30 AM EDT Office Visit Gastroenterology [address] [place] [address] Marsha Loco CRNP [address] [place] [address] 08/28/2024 8:20 AM EST Office Visit Family Medicine [address] [phone] Dany Caruso MD [address] [place] [address] [place] [phone] Scheduled Orders Name Type Priority Associated Diagnoses Orde r Schedule BASIC METABOLIC PANEL Lab Routine Type 2 diabetes mellitus with hemoglobin A1c goal of less than 7.0% (HCC) Expected: 03/06/2024, Expires: 02/20/2025 Health Maintenance Due Date Last Done Comments [...] Primary documented in this encounter Care Teams Signal Intelligence Analyst Relationship Specialty Start Date End Date Dany Caruso MD [address] [place] [address] [place] [address] PCP - General Family Medicine 04/07/21 documented as of this encounter
--- OUTSIDE RECORDS SUMMARY | 2024-03-24 07:24 | External Medical Summary | Summary of Care ---
Author Name Unknown Organization [facility] Address [address] [place] [address] Phone [phone] Care Team Providers Care Composition Stone Applicator Name Role Phone Dany Caruso MD Primary Care Provide r Reason for Visit * Reason Comments eRx-Medication Refill Encounter Details Date Type Department Care Team (Late st Contact Info) Description 02/14/2024 Refill Family Medicine [address] [phone] Dany Caruso MD [address] [place] [address] [place] [id number] Gastroparesis Allergies Active Allergy Reactions Criticality Noted Date Comments Morphine 12/27/2013 Nausea, vomiting, diaphoresis Sulfa Antibiotics Itching 10/04/2011 documented as of this encounter (statuses as of 02/15/2024) Medications Medication Sig Dispensed Refills Start Date [...] before bedtime. 180 Tablet 5 4 Active glipiZIDE ER 10 MG Oral Tablet Extended Release 24 Hour (glipiZIDE XL)Indications:Typ e 2 diabetes mellitus with hemoglobin A1c goal of less than 7.0% ([facility]) Take 1 Tablet by mouth in the morning. 30 minutes before a meal.. 30 Tablet 5 4 Active Pantoprazole Sodium 40 [...] mellitus with autonomic neuropathy, unspecified whether terminal operations manager insulin use (HCC) Use with insulin once daily 100 Each 1 4 Active Dulaglutide 0.75 MG/0.5ML Subcutaneous Solution Pen-injector (Liqueo) Inject 0.75 mg under the skin once [...] EF (heart failure with reduced ejection fraction) (FORMERLY [...] BEFORE MEALS 90 Tablet 0 4 Active Metoclopramide HCl 5 MG Oral Tablet (Reglan)Indication s:Gastroparesis Take 1 Tablet by mouth in the morning and 1 Tablet at noon and 1 Tablet before bedtime. 30 minutes before meals. 90 Tablet 0 4 02/15/20 24 Discontinued documented as of this encounter (statuses as of 02/15/2024) Active Problems Problem Noted Date Diagnosed Date [...] as of this encounter (statuses as of 02/15/2024) Resolved Problems Problem Noted Date Diagnosed Date Resolved Date Type 2 diabetes mellitus wit h autonomic neuropathy 06/29/2022 12/19/2022 Neuropathy 04/07/2021 12/19/2022 Diabetic ketoacidosis withou t coma associated with type 2 diabetes mellitus 04/07/2021 05/06/2021 Overview: 02/2021 Fatigue 11/13/2011 05/10/2022 Esophageal reflux 10/04/2011 04/07/2021 documented as of this encounter (statuses as of 02/15/2024) Immunizations Name Administration Dates Next Due Seasonal [...] encounter Miscellaneous Notes * Telephone Encounter - Judith Esquivel MD - 02/15/2024 1:31 PM EDT Signed Prescriptions: Disp Refills Metoclopramide HCl 5 MG Oral Tablet (Lara*90 Tab*0 Sig: TAKE 1 TABLET BY MOUTH IN THE MORNING, 1 TAB AT NOON AND 1 TAB BEFORE BEDTIME. 30 MINS BEFORE MEALS Authorizing Provider: JUDITH ESQUIVEL * Telephone Encounter - Connie Maya LPN - 02/15/2024 7:48 AM EDTPending Prescriptions: Disp Refills Metoclopramide HCl 5 MG Oral Tablet [Pharm*90 Tab*0 Sig: TAKE 1 TABLET BY MOUTH IN THE MORNING, 1 TAB AT NOON AND 1 TAB BEFORE BEDTIME. 30 MINS BEFORE MEALS * Telephone Encounter - Connie Maya LPN - 02/15/2024 7:47 AM EDT Pending Prescriptions: Disp Refills Metoclopramide HCl 5 MG Oral Tablet (Regl*90 Tab*0 Sig: TAKE 1 TABLET BY MOUTH IN THE MORNING, 1 TAB AT NOON AND 1 TAB BEFORE BEDTIME. 30 MINS BEFORE MEALS Last Visit: 02/12/2024 (in office), Visit date not found (telemedicine) Next Visit: 04/01/2024 Last date the medication was ordered: 12/15/23 Patient Active Problem List Diagnosis Code Controlled substance agreement signed Z79.899 Type 2 diabetes mellitus with hemoglobin A1c goal of less than 7.0% ([facility]) E11.9 HTN, goal below 130/80 I10 Other proteinuria R80.8 High triglycerides E78.1 Gastroparesis K31.84 HFrEF (heart failure with reduced ejection fraction) ([facility]) I50.20 Acute pulmonary embolism without acute cor pulmonale ([facility]) I26.99 History of alcohol abuse F10.11 Gastro-esophageal reflux disease without esophagitis K21.9 Alcohol abuse, uncomplicated F10.10 Neuropathy G62.9 Other acute pulmonary embolism without acute cor pulmonale ([facility]) I26.99 Type 2 diabetes mellitus with autonomic neuropathy ([facility]) E11.43 Labs: Lab Results Component Value Date/Time CREATININE - [facility] 1.3 (H) 01/31/2024 01:04 PM CREATININE - [facility] 1.1 09/08/2016 02:32 PM CREATININE, RANDOM URINE - [facility] 50 05/18/2023 01:36 PM Lab Results Component Value Date/Time POTASSIUM - [facility] 4.4 01/31/2024 01:04 PM POTASSIUM - [facility] 4.3 09/08/2016 02:32 PM POTASSIUM, RANDOM URINE - [facility] 28.8 06/09/2015 03:06 PM Lab Results Component Value Date/Time TSH - [facility] 2.79 06/09/2015 03:06 PM Lab Results Component Value Date/Time LDL CHOLESTEROL (CALCULATED) - [facility] 63 05/18/2023 01:36 PM LDL CHOLESTEROL (CALCULATED) - [facility] 153 (H) 03/24/2022 08:44 AM LDL CHOLESTEROL (DIRECT MEASURE) - [facility] 50 12/13/2023 09:40 AM LDL CHOLESTEROL (DIRECT MEASURE) - [facility] 101 10/13/2023 01:25 PM Lab Results Component Value Date/Time ALT - [facility] 19 05/10/2022 08:08 AM ALT - [facility] 31 09/08/2016 02:32 PM Hemoglobin AIC Results: Lab Results Component Value Date/Time HEMOGLOBIN A1C - [facility] 10.0 (H) 10/13/2023 01:25 PM HEMOGLOBIN A1C - [facility] 11.5 (H) 05/18/2023 01:36 PM HEMOGLOBIN A1C - [facility] 6.9 (H) 12/06/2022 11:35 AM HEMOGLOBIN A1C - [facility] 6.0 06/09/2015 03:06 PM * Telephone Encounter - Sage Vee - 02/15/2024 4:48 AM EDTPending Prescriptions: Disp Refills Metoclopramide HCl 5 MG Oral Tablet [Pharm*90 Tab*0 Sig: TAKE 1TABLET BY MOUTH IN THE MORNING, 1 TAB AT NOON AND 1 TAB BEFORE BEDTIME. 30 MINS BEFORE MEALS-------- documented in this encounter Plan of Treatment Upcoming Encounters Date Type Department Care Team (Late st Contact Info) Description 02/19/2024 10:30 AM EDT Telemedicine Cardiology, [facility] [place] [address] [facility] [address] [place] [address] 02/21/2024 8:30 AM EDT Office Visit Pharmacy, [address] [place] [address] [place] [address] 03/20/2024 8:30 AM EDT Office Visit Cardiology, [facility] [address] [place] [address] Joaquina Hernández CRNP [address] [place] [address] 04/01/2024 8:40 AM EDT Office Visit [address] [phone] Linda Vale [address] [place] [address] 08/28/2024 8:20 AM EST Office Visit [address] [phone] Dany Caruso MD [address] [place] [address] [place] [address] Health Maintenance Due Date Last Done Comments [...] as of this encounter Visit Diagnoses Diagnosis Gastroparesis documented in this encounter Care Teams Composition Stone Applicator Relationship Specialty Start Date End Date Dany Caruso MD [address] [place] [address] [place] [phone] PCP - General Family Medicine 04/07/21 documented as of this encounter
--- OUTSIDE RECORDS SUMMARY | 2024-03-24 07:24 | External Medical Summary | Summary of Care ---
Author Name Unknown Organization [facility] Address [address] [place] [address] Phone [phone] Care Team Providers Care Forestry Fire Aid Name Role Phone Dany Caruso MD Primary Care Provide r Reason for Visit * Reason Comments eRx-Medication Refill Encounter Details Date Type Department Care Team (Late st Contact Info) Description 02/19/2024 Refill Cardiology, [facility] [address] [facility] [place] [address] Joaquina Hernández CRNP [address] [facility] [place] [address] HTN, goal below 130/80 Allergies Active Allergy Reactions Criticality Noted Date Comments Morphine 12/27/2013 Nausea, vomiting, diaphoresis Sulfa Antibiotics Itching 10/04/2011 documented as of this encounter (statuses as of 02/19/2024) Medications Medication Sig Dispensed Refills Start Date End Date Status OneTouch Verio w/Device KitIndications:Type 2 diabetes mellitus with hemoglobin A1c goal of less than 7.0% ([facility]) Use to test once a day [...] Active Dulaglutide 0.75 MG/0.5ML Subcutaneous Solution Pen-injector (Liibook) Inject 0.75 mg under the skin once [...] A1c goal of less than 7.0% ([facility]) Inject 55 Units under the skin [...] (heart failure with reduced ejection fraction) ([facility]) Take 1.5 Tablets by mouth in [...] encounter Miscellaneous Notes * Telephone Encounter - Silvana Shaikh CMA - 02/19/2024 11:43 AM EDTRefused Prescriptions: Disp Refills hydroCHLOROthiazide 25 MG Oral Tablet (Hyd*30 Tab*2 Sig: TAKE 1TABLET BY MOUTH EVERY DAY IN THE MORNINGRefused By: SILVANA SHAIKH for Refusal: Refill NotAppropriateReason for Refusal Comment: Discontinued 01-23-2024 documented in this encounter Plan of Treatment Upcoming Encounters Date Type Department Care Team (Late st Contact Info) Description 02/19/2024 12:00 PM EDT Office Visit Family Medicine [address] [place] [address] Dany Caruso MD [address] [place] [address] [place] [address] 02/21/2024 8:30 AM EDT Office Visit Pharmacy, [address] [place] [address] [place] [address] 03/19/2024 10:30 AM EDT Telemedicine Cardiology[address] [place] [address] [facility] Cardiology [address] [place] [address] 03/20/2024 8:30 AM EDT Office Visit Cardiology, [facility] [address] [place] [address] Joaquina Hernández CRNP [address] [place] [address] 04/01/2024 8:40 AM EDT Office Visit [address] [phone] Linda Vale CRNP [address] [place] [address] [place] [address] 08/28/2024 8:20 AM EST Office Visit Family [address] [phone] Dany Caruso MD [address] [place] [address] [place] [address] Health Maintenance Due Date Last Done Comments [...] as of this encounter Visit Diagnoses Diagnosis HTN, goal below 130/80 Unspecified essential hypertension documented in this encounter Care Teams Forestry Fire Aid Relationship Specialty Start Date End Date Dany Caruso MD [address] [place] [address] [place] [phone] PCP - General Family Medicine 04/07/21 documented as of this encounter
--- OUTSIDE RECORDS SUMMARY | 2024-03-24 07:24 | External Medical Summary | Summary of Care ---
Author Name Unknown Organization [facility] Address [address] [place] [address] Phone [phone] Care Team Providers Care Development Engineer Name Role Phone Dany Caruso MD Primary Care Provide r Reason for Visit * Reason Onset Date Comments Status Check 01/25/2024 LM 02/04 Test Results 01/25/2024 Encounter Details Date Type Department Care Team (Late st Contact Info) Description 01/25/2024 Telephone Cardiology, [place] [address] [facility] [place] [address] [facility] [place] [address] Status Check (LM 02/04); Test Results Allergies [...] Active Dulaglutide 0.75 MG/0.5ML Subcutaneous Solution Pen-injector (iClinical) Inject 0.75 mg under the skin once [...] 7.0% ([facility]) Inject 55 Units under the skin [...] ejection fraction) ([facility]) Take 1.5 Tablets by mouth in the [...] encounter Miscellaneous Notes * Telephone Encounter - Joaquina Hernández CRNP - 02/13/2024 1:49 PM EDT Thank you for the update. Doxycycline would certainly be an effective choice of antibiotic to not only cover his skin stuff, but also good for concerns of bronchitis/pneumonia. Pleased with current weights. Continue inhalers,continue diuretics. Very hesitant to have him do an oral course of steroids out of concern for fluid retention, hopefully no one needs to go that route. Will await next status check. Thank you, Joaquina * Telephone Encounter - Eric Phillips [facility] - 02/13/2024 11:06 AM EDT Called pt for check in. At [facility] reports he was treated with inhalers and [...] to check back in on patient Eric Alan Pharm D Clinical [facility] Pharmacist Cardiology 02/13/2024,11:08 AM * Telephone Encounter - Joaquina Hernández CRNP - 02/12/2024 1:55 PM EDT Thank you for keeping me looped in. Reviewed [facility] record and patient's ED visit on 02/09/24. Discharge Problem: Acute bronchitis due to human metapneumovirus * Telephone Encounter - Connie Maya LPN - 02/09/2024 2:55 PM EDT Contacted patient and he is getting ready to Head over to [facility] now. He is aware about community case manager And When advised about disability paper work he states that this is the issue layers send paper work to provider and no one knows what to do with it. I notified him that right now he needs to go to ER and we can talk about Disability/community case manager later He is agreeable * Telephone Encounter - Dany Caruso MD - 02/09/2024 10:28 AM EDT [...] PNA ect. He plans to go to [place] Of note, patient still confused and concerned about his disability paperwork. Feels like he doesn'tknow what to do. He would be agreeable to a community case manager referral if possible? Eric Phillips Pharm D Clinical [facility] Pharmacist Cardiology 02/08/2024,3:09 PM * Telephone Encounter [...] Mcmanus * Telephone Encounter - Eric Phillips RP - 02/01/2024 2:41 PM EDT Scr improving. [...] visit * Telephone Encounter - Eric Phillips RPh - 01/31/2024 11:31 AM EDT Called for [...] know if it is complex CM. Stefani Banda, RN * Telephone Encounter - Joaquina Hernández CRNP - 01/25/2024 4:09 PM EDT Hey Eric and Jesenia, It is a good question. I have to wonder if his hypervolemia isnt the big trigger. Lets continue hismeds. Jesenia please call him in a few days like Eric asked and he needs to have repeat labs within a week. I placed an order for repeat BMP for next week if needed. Thanks Joaquina * Telephone Encounter - Eric Phillips [facility] - 01/25/2024 3:55 PM EDT [...] mg daily 223 lbs---01/23 (per community health catalog library assistant note); lasix 40 mg daily started [...] Description 02/19/2024 10:30 AM EDT Telemedicine Cardiology, [place] [address] [place] [address] [facility] Cardiology [address] [facility] [place] [address] 02/21/2024 8:30 AM EDT Office Visit Pharmacy, [address] [place] [address] [place] [address] 03/20/2024 8:30 AM EDT Office Visit Cardiology, [facility] [address] [place] [address] Joaquina Hernández CRNP [address] [place] [address] 04/01/2024 8:40 AM EDT Office Visit [address] [phone] Linda Vale CRNP [address] [place] [address] [place] [address] 08/28/2024 8:20 AM EST Office Visit [address] [place] [phone] Dany Caruso MD [address] [place] [address] [place] [address] Health Maintenance Due Date Last Done Comments Pneumococcal Vaccine: Pediatrics (0 to 5 Years) and At-Risk Patients (6 to 64 Years) (1 of 2 - PCV) 1985 HIV Screening 1994 Hepatitis C Screening 1997 Hepatitis B (1 of 3 - 19+ 3-dose series) 1998 COVID-19 Vaccine ( season) 2023 Depression Screening 08/31/2023 08/31/2022 HbA1c [...] BLOOD ORDER [facility] [address] [place] [address] documented in this encounter Visit Diagnoses Diagnosis HFrEF (heart failure with reduced ejection fraction) (HCC)- Primary Chronic constipation Unspecified constipation documented in this encounter Care Teams Development Engineer Relationship Specialty Start Date End Date Dany Carsuo MD [address] [place] [address] [place] [phone] PCP - General Family Medicine 04/07/21 documented as of this encounter
--- OUTSIDE RECORDS SUMMARY | 2024-03-24 07:24 | External Medical Summary | Summary of Care ---
Author Name Unknown Organization [facility] Address [address] [place] [address] Phone [phone] Care Team Providers Care Core Laying Machine Operator Name Role Phone Dany Caruso MD Primary Care Provide r Reason for Visit * Reason Onset Date Comments Information 02/19/2024 Encounter Details Date Type Department Care Team (Late st Contact Info) Description 02/19/2024 Telephone [facility], [facility] [address] [facility] [place] [address] Stu Toscano MD [address] [place] [address] Information Allergies Active Allergy Reactions Criticality Noted Date Comments Morphine 12/27/2013 Nausea, vomiting, diaphoresis Sulfa Antibiotics Itching 10/04/2011 documented as of this encounter (statuses as of 02/23/2024) Medications Medication Sig Dispensed Refills Start Date End Date Status OneTouch Verio w/Device KitIndications:Typ e 2 diabetes mellitus with hemoglobin A1c goal of less than 7.0% ([facility]) Use to test once a day [...] mellitus with autonomic neuropathy, unspecified whether termite control representative insulin use (HCC) Use with insulin once [...] hemoglobin A1c goal of less than 7.0% ([facility]) Inject 55 Units under the skin daily. [...] EF (heart failure with reduced ejection fraction) ([facility]) Take 1.5 Tablets by mouth in [...] BEFORE MEALS 90 Tablet 0 4 Active glipiZIDE ER 10 MG Oral Tablet Extended Release 24 Hour (glipiZIDE XL)Indications:Typ e 2 diabetes mellitus with hemoglobin A1c goal of less than 7.0% ([facility]) Take 1 Tablet by mouth in [...] Telephone Encounter - Dany Caruso MD - 02/23/2024 9:12 AM EDT Pt is referring to his disability form - the reason certain pages are missing bc pt did not bring in all the pages to the appt when I complete the form - now he is sched to see me in the clinic again to complete the rest of the forms (which he DID NOTbring during his initial visit) * Telephone Encounter - Anaya Swanson PHARM [...] out all pages and fax to his wood strip block floor installer . Fax- [phone] If there are any pages that the office needs please contact pt and he will supply them again. Thank you, Anaya Swanson, [facility] Learning Officer II [facility]) 02/19/2024,6:27 PM documented in this encounter Plan of Treatment Upcoming Encounters Date Type Department Care Team (Late st Contact Info) Description 02/27/2024 11:20 AM EDT Office Visit [address] [phone] Dany Caruso MD [address] [place] [address] [place] [address] 03/19/2024 10:30 AM EDT Telemedicine Cardiology, [place] 400 [facility] [place] [address] [facility] Cardiology [address] [facility] [place] [address] 03/20/2024 8:30 AM EDT Office Visit Cardiology, [facility] [address] [address] Joaquina Hernández CRNP [address] [address] 03/21/2024 9:00 AM EDT Office Visit Pharmacy, [address] [place] [address] [place] [address] 04/01/2024 8:40 AM EDT Office Visit Family Medicine [address] [place] [phone] Linda Vale CRNP [address] [place] [address] [place] [address] 06/07/2024 9:30 AM EDT Office Visit Gastroenterology [address] [place] [address] Marsha Loco CRNP [address] [place] [address] 08/28/2024 8:20 AM EST Office Visit Family Medicine [address] [place] [phone] Dany Caruso MD [address] [place] [address] [place] [address] Health Maintenance Due Date Last Done Comments Pneumococcal Vaccine: Pediatrics (0 to 5 Years) and At-Risk Patients (6 to 64 Years) (1 of 2 - PCV) 1985 HIV Screening 1994 Hepatitis C Screening 1997 Hepatitis B (1 of 3 - 19+ 3-dose series) 1998 COVID-19 Vaccine ( - season) 2023 Depression Screening 08/31/2023 08/31/2022 Albumin/Creatinine [...] filedocumented as of this encounter Care Teams Core Laying Machine Operator Relationship Specialty Start Date End Date Dany Caruso MD [address] [place] [address] [place] [address] PCP - General Family Medicine 04/07/21 documented as of this encounter
--- OUTSIDE RECORDS SUMMARY | 2024-03-24 07:24 | External Medical Summary ---
Author Name Unknown Address Unknown Organization K01:[facility] [place] [address] [place] [address] Laboratory Report Ordering Provider Test Date Status JASON MUNSON 02/19/2024 12:52:33 Hilda l Observation Date Value Abnormality Reference (Units ) Status BUN 02/19/2024 12:52:33 17 6-20 (mg/dL) Final Creatinine 02/19/2024 12:52:33 1.2 0.6-1.2 (mg/dL) Final Glomerular filtration rate/1.73 sq M.predicted [Volume Rate/Area] in Serum, Plasma or Blood by Creatinine-based formula (CKD-EPI) 02/19/2024 12:52:33 80 >=60 (mL/min) Final eGFR is calculated based on the CKD-EPI 2020 equation Sodium 02/19/2024 12:52:33 143 135-146 (m mol/L) Final Potassium 02/19/2024 12:52:33 4.5 3.5-5.1 (m mol/L) Final Cl 02/19/2024 12:52:33 103 98-107 (mm ol/L) Final CO2 02/19/2024 12:52:33 26 22-32 (mmo l/L) Final Anion gap 02/19/2024 12:52:33 14 7-15 (mmol /L) Final Glucose 02/19/2024 12:52:33 118 70-120 (mg /dL) Final Calcium 02/19/2024 12:52:33 9.9 8.4-10.2 ( mg/dL) Final Performing Location [facility] [place] [address] [place] [address]
--- OUTSIDE RECORDS SUMMARY | 2024-03-24 07:24 | External Medical Summary | Summary of Care ---
Author Name Unknown Organization [facility] Address [address] [place] [address] Phone [phone] Care Team Providers Care Scuba Dive Training Instructor Name Role Phone Dany Caruso MD Primary Care Provide r Reason for Visit * Reason Onset Date Comments Status Check 01/25/2024 LM 02/04 Test Results 01/25/2024 Encounter Details Date Type Department Care Team (Late st Contact Info) Description 01/25/2024 Telephone Cardiology, [place] [address] [facility] [place] [address] [facility] [place] [address] Status Check (LM 02/04); Test Results Allergies Active Allergy Reactions Criticality Noted Date Comments Morphine 12/27/2013 Nausea, vomiting, diaphoresis Sulfa Antibiotics Itching 10/04/2011 documented as of this encounter (statuses as of 02/12/2024) Medications Medication Sig Dispensed Refills Start Date End Date Status OneTouch Verio w/Device KitIndications:Typ e 2 diabetes mellitus with hemoglobin A1c goal of less than 7.0% ([facility]) Use to test once a [...] diabetes mellitus with autonomic neuropathy, 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 (HCC) Use with insulin once daily 100 Each 12/13/2023 Active Dulaglutide 0.75 MG/0.5ML Subcutaneous Solution Pen-injector ([employer]) Inject 0.75 mg under the skin once [...] goal of less than 7.0% ([facility]) Inject 55 Units under the [...] EF (heart failure with reduced ejection fraction) ([facility]) Take 1.5 Tablets by mouth [...] as of this encounter (statuses as of 02/12/2024) Active Problems Problem Noted Date Diagnosed Date [...] as of this encounter (statuses as of 02/12/2024) Resolved Problems Problem Noted Date Diagnosed Date Resolved Date Type 2 diabetes mellitus wit h autonomic neuropathy 06/29/2022 12/19/2022 Neuropathy 04/07/2021 12/19/2022 Diabetic ketoacidosis withou t coma associated with type 2 diabetes mellitus 04/07/2021 05/06/2021 Overview: 02/2021 Fatigue 11/13/2011 05/10/2022 Esophageal reflux 10/04/2011 04/07/2021 documented as of this encounter (statuses as of 02/12/2024) Immunizations Name Administration Dates Next Due Seasonal [...] you for keeping me looped in. Reviewed [facility] record and patient's ED visit on 02/09/24. Discharge Problem: Acute bronchitis due to human metapneumovirus * Telephone Encounter - Connie Maya LPN - 02/09/2024 2:55 PM EDT Contacted patient and he is getting ready to Head over to [facility] now. He is aware about showcase maker And When advised about disability paper work he states that this is the issue layers send paper work to provider and no one knows what to do with it. I notified him that right now he needs to go to ER and we can talk about Disability/showcase maker later He is agreeable * Telephone Encounter - Dany Caruso MD - 02/09/2024 10:28 AM EDT Agree with ER visit to r/o acute on CHF I will discuss case management referral during clinic visit Regarding disability- pt needs to start the process (like start the application ) through State anddepending on what they require our clinic can provide * Addendum Note - Becca Phillips RP - 02/08/2024 3:23 PM EDT Addended by: BECCA PHILLIPS on: 02/08/2024 03:23 PM Modules accepted: Orders * Telephone Encounter - Becca Phillips RPh - 02/08/2024 3:08 PM EDT [...] PNA ect. [facility] Of note, patient still confused and concerned about his disability paperwork. Feels like he doesn'tknow what to do. He would be agreeable to a showcase maker referral if possible? Becca Phillips Pharm D Clinical [facility] Pharmacist Cardiology 02/08/2024,3:09 PM * Telephone Encounter - Stefani Banda RN - 02/05/2024 10:27 AM EDT Left message for patient to return call. Stefani A Solo, RN * Telephone Encounter - Joaquina Hernández [...] sooner. Joaquina Mcmanus * Telephone Encounter - Becca Phillips [facility] - 02/01/2024 2:41 PM EDT Scr improving. [...] PM EDT Thank you for the update Becca, will keep an eye out for his labs also. Thank you Dr. Wilkes for addressing the GI issues. Joaquina * Telephone Encounter - Dany Caruso MD - 01/31/2024 1:32 PM EDT Will try linzess - if no improvement then clinic visit * Telephone Encounter - Becca Phillips RPh - 01/31/2024 11:31 AM EDT [...] could pass this message along to PCP Becca Phillips Pharm D Clinical [facility] Pharmacist Cardiology [...] CRNP - 01/25/2024 4:09 PM EDT Hey Becca and Jesenia, It is a good question. I have to wonder if his hypervolemia isnt the big trigger. Lets continue hismeds. Jesenia please call him in a few days like Becca asked and he needs to have repeat labs within a week. I placed an order for repeat BMP for next week if needed. Yonathan Kunz * Telephone Encounter - Becca Phillips RPh - 01/25/2024 3:55 PM EDT Joaquina, Please [...] mg daily 223 lbs---01/23 (per community health exceptional children teacher assistant note); lasix 40 mg daily started [...] 02/21/2024 8:30 AM EDT Office Visit Pharmacy, [address] [place] [address] [place] [address] 03/20/2024 8:30 AM EDT Office Visit Cardiology, [facility] [address] [place] [address] Joaquina Hernández CRNP [address] [place] [address] 04/01/2024 8:40 AM EDT Office Visit [address] [phone] Linda Vale CRNP [address] [place] [address] [place] [address] 08/28/2024 8:20 AM EST Office Visit [address] [phone] Dany Caruso MD [address] [place] [address] [place] [address] Health Maintenance Due Date Last Done Comments [...] Joaquina TONG LAB BLOOD ORDER [facility] [address] [place] [address] documented in this encounter Visit Diagnoses Diagnosis HFrEF (heart failure with reduced ejection fraction) (HCC)- Primary Chronic constipation Unspecified constipation documented in this encounter Care Teams Scuba Dive Training Instructor Relationship Specialty Start Date End Date Dany Caruso MD [address] [place] [address] [place] [address] PCP - General Family Medicine 04/07/21 documented as of this encounter
--- OUTSIDE RECORDS SUMMARY | 2024-03-24 07:25 | External Medical Summary ---
Author Name Unknown Address Unknown Organization K01:[facility] [address] [facility] [address] Laboratory Report Ordering Provider Test Date Status TERESE MIRAMONTES 02/12/2024 09:52:59 Final Observation Date Value Abnormality Reference (Units ) Status Bacteria identified in Specimen by Culture 02/12/2024 09:52:59 [id number]^STAPHY LOCOCCUS AUREUS Abnormal Final Many Staphylococcus aureus Bacteria identified in Specimen by Culture 02/12/2024 09:52:59 [id number]^PEPTOSTREPTOCOCCUS ANAEROBIUS Abnormal Final Few Peptostreptococcus anaer obius Gram Stain 02/12/2024 09:52:59 Occasional Polymorphonuclear leukocytes Final Gram Stain 02/12/2024 09:52:59 Occasional Gram positive cocc i Final Performing Location [facility] - [address] [facility] [address] Ordering Provider Test Date Status TERESE MIRAMONTES 02/12/2024 09:52:59 Final Observation Date Value Abnormality Reference (Units ) Status Clindamycin 02/12/2024 09:52:59 <=0.25 Susceptible Final Erythromycin susceptibility 02/12/2024 09:52:59 <=0.25 Susceptible Final Oxacillinsusceptibility 02/12/2024 09:52:59 0.5 Susceptible Final Tetracyclinesusceptibility 02/12/2024 09:52:59 <=1 Susceptible Final TMP-SMZ susceptibility 02/12/2024 09:52:59 <=10 Susceptible Final Vancomycinsusceptibility 02/12/2024 09:52:59 <=0.5 Susceptible Final Test: Culture, Wound, Deep, Aerobic and Anaerobic
Specimen Source: Leg, Left
Specimen Type: Drainage
Specimen Date: 02/12/2024 9:52 AM
Result Date: 02/17/2024 9:57 AM
Result Status: Final result
Abnormal: Yes
Resulting Lab: [facility]
[address]
[place] [address]

CULTURE

Many Staphylococcus aureus (Abnormal)

Few Peptostreptococcus anaerobius (Abnormal)

STAIN

Occasional Polymorphonuclear leukocytes

Occasional Gram positive cocci

SUSCEPTIBILITY

Staphylococcus
aureus
METHOD MICROBROTH
DILUTIONS

CLINDAMYCIN <=0.25 Susceptible
ERYTHROMYCIN <=0.25 Susceptible
OXACILLIN 0.5 Susceptible
TETRACYCLINE <=1 Susceptible
TRIMETH/SULFAMETHOXAZOLE <=10 Susceptible
VANCOMYCIN <=0.5 Susceptible

null Performing Location [facility] [address] [facility] [address]
--- OUTSIDE RECORDS SUMMARY | 2024-03-24 07:25 | External Medical Summary | Summary of Care ---
Author Name Unknown Organization [facility] Address [address] [place] [address] Phone [phone] Care Team Providers Care Steel Melter Name Role Phone Dany Caruso MD Primary Care Provide r Reason for Visit * Reason Comments Re-Check Encounter Details Date Type Department Care Team (Late st Contact Info) Description 02/12/2024 8:40 AM EDT Office Visit Family Medicine [address] [phone] Linda Vale [address] [place] [address] Wound of left lower extremity, subsequent encounter*; Rhinosinusitis Allergies Active Allergy Reactions Criticality Noted Date [...] autonomic neuropathy, unspecified whether correction insulin use (HCC) Use with insulin once daily 100 Each 12/13/2023 Active Dulaglutide 0.75 MG/0.5ML Subcutaneous Solution Pen-injector ([employer]) Inject 0.75 mg under the skin once a week. 2 mL 12/14/2023 Active Metoclopramide HCl 5 MG Oral Tablet (Reglan)Indications :Gastroparesis Take 1 Tablet by mouth in the [...] of less than 7.0% ([facility]) Inject 55 Units under the skin daily. [...] F (heart failure with reduced ejection fraction) ([facility]) Take 1.5 Tablets by mouth in the [...] days. 28 Capsule 0 02/12/2024 02/26/2024 Active documented as of this encounter (statuses [...] Sign Reading Time Taken Comments Blood Pressure 136/92 02/12/2024 8:52 AM EDT Pulse 104 02/12/2024 8:52 AM EDT Temperature 36.2 C (97.1 F) 02/12/2024 8:52 AM ED T Respiratory Rate 16 02/12/2024 8:52 AM EDT Oxygen Saturation 96% 02/12/2024 8:52 AM EDT Inhaled Oxygen Concentration - - Weight 105.7 kg (233 lb) 02/12/2024 8:52 AM EDT Height - - Body Mass Index 35.43 05/18/2023 1:09 PM EDT documented in this encounter Nursing Notes * Rohini Moya LPN - 02/12/2024 8:48 AM EDT 1 yr check Cough, congestion, voice hoarse. Went to ER yesterday. Given Tylenol and breathing treatment. documented in this encounter Plan of Treatment Upcoming Encounters Date Type Department Care Team (Late st Contact Info) Description 02/21/2024 8:30 AM EDT Office Visit Pharmacy, [address] [place] [address] [place] [address] 03/20/2024 8:30 AM EDT Office Visit Cardiology, [address] [place] [address] Joaquina Millan CRNP [address] [place] [address] 04/01/2024 8:40 AM EDT Office Visit [address] [phone] Linda Vale CRNP [address] [place] [address] [place] [address] 08/28/2024 8:20 AM EST Office Visit [address] [phone] Dany Caruso MD [address] [place] [address] [place] [address] Pending Results Name Type Priority Associated Diagnoses Date /Time CULTURE, WOUND, DEEP, AEROBIC AND ANAEROBIC Lab Routine Wound of left lower extremity, subsequent encounter 02/12/2024 9:52 AM EDT Scheduled Orders Name Type Priority Associated Diagnoses Orde r Schedule CULTURE, WOUND, DEEP, AEROBIC AND ANAEROBIC Lab Routine Wound of left lower extremity, subsequent encounter Expected: 02/12/2024, Expires: 02/11/2025 Health Maintenance Due Date Last Done Comments [...] as of this encounter Visit Diagnoses Diagnosis Wound of left lower extremity, subsequent encounter- Primary Rhinosinusitis Unspecified sinusitis (chronic) documented in this encounter Care Teams Steel Melter Relationship Specialty Start Date End Date Dany Caruso MD [address] [place] [address] [place] [phone] PCP - General Family Medicine 04/07/21 documented as of this encounter
--- OUTSIDE RECORDS SUMMARY | 2024-03-24 07:25 | External Medical Summary | Summary of Care ---
Author Name Unknown Organization [facility] Address [address] [place] [address] Phone [phone] Care Team Providers Care Inverform Machine Operator Name Role Phone Dany Caruso MD Primary Care Provide r Reason for Visit * Reason Onset Date Comments Status Check 01/25/2024 LM 02/04 Test Results 01/25/2024 Encounter Details Date Type Department Care Team (Late st Contact Info) Description 01/25/2024 Telephone Cardiology, [place] [address] [facility] [place] [address] [facility] [place] [address] Status Check ( 02/04); Test Results Allergies Active Allergy Reactions Criticality Noted Date Comments Morphine 12/27/2013 Nausea, vomiting, diaphoresis Sulfa Antibiotics Itching 10/04/2011 documented as of this encounter (statuses as of 02/09/2024) Medications Medication Sig Dispensed Refills Start Date End Date Status OneTouch Verio w/Device KitIndications:Typ e 2 diabetes mellitus with hemoglobin A1c goal of less than 7.0% ([facility]) Use to test once a [...] mellitus with autonomic neuropathy, 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 insulin use (HCC) Use with insulin once daily 100 Each 12/13/2023 Active Dulaglutide 0.75 MG/0.5ML Subcutaneous Solution Pen-injector ([employer]) Inject 0.75 mg under the skin once [...] A1c goal of less than 7.0% ([facility]) Inject 55 Units under the [...] (heart failure with reduced ejection fraction) ([facility]) Take 1.5 Tablets by mouth [...] as of this encounter (statuses as of 02/09/2024) Active Problems Problem Noted Date Diagnosed Date [...] as of this encounter (statuses as of 02/09/2024) Resolved Problems Problem Noted Date Diagnosed Date Resolved Date Type 2 diabetes mellitus wit h autonomic neuropathy 06/29/2022 12/19/2022 Neuropathy 04/07/2021 12/19/2022 Diabetic ketoacidosis withou t coma associated with type 2 diabetes mellitus 04/07/2021 05/06/2021 Overview: 02/2021 Fatigue 11/13/2011 05/10/2022 Esophageal reflux 10/04/2011 04/07/2021 documented as of this encounter (statuses as of 02/09/2024) Immunizations Name Administration Dates Next Due Seasonal [...] encounter Miscellaneous Notes * Telephone Encounter - Connie Maya LPN - 02/09/2024 2:55 PM EDT Contacted patient and he is getting ready to Head over to [facility] now. He is aware about medical case worker And When advised about disability paper work he states that this is the issue layers send paper work to provider and no one knows what to do with it. I notified him that right now he needs to go to ER and we can talk about Disability/medical case worker later He is agreeable * Telephone Encounter [...] provide * Addendum Note - Eric Phillips [facility] - 02/08/2024 3:23 PM EDT Addended by: [...] PNA ect. [facility] Of [facility], patient still confused and concerned about his disability paperwork. Feels like he doesn'tknow what to do. He would be agreeable to a medical case worker referral if possible? Eric Phillips Pharm D Clinical [facility] Pharmacist Cardiology 02/08/2024,3:09 PM * Telephone [...] Mcmanus * Telephone Encounter - Eric Phillips RPh - 02/01/2024 2:41 PM EDT Scr improving. [...] Dr. Wilkes for addressing the GI issues. Joaqiuna * Telephone Encounter - Dany Caruso MD - 01/31/2024 1:32 PM EDT Will try linzess - if no improvement then clinic visit * Telephone Encounter - Eric Phillips RP - 01/31/2024 11:31 AM EDT Called for [...] Joaquina * Telephone Encounter - Eric Phillips [facility] - 01/25/2024 3:55 PM EDT Joaquina, [...] mg daily 223 lbs---01/23 (per community health sales and marketing assistant note); lasix 40 mg daily started [...] 8:40 AM EDT Office Visit Family Medicine [address] [place] [phone] Linda Vale [address] [place] [address] 02/21/2024 8:30 AM EDT Office Visit Pharmacy, [address] [place] [address] [place] [address] 03/20/2024 8:30 AM EDT Office Visit Cardiology, [facility] [address] [place] [address] Joaquina Hernández CRNP [address] [place] [address] Health Maintenance Due Date Last Done Comments Pneumococcal Vaccine: Pediatrics (0 to 5 Years) and At-Risk Patients (6 to 64 Years) (1 of 2 - PCV) 1985 HIV Screening 1994 Hepatitis C Screening 1997 Hepatitis B (1 of 3 - 19+ 3-dose series) 1998 DTaP,Tdap,and Td Vaccines (2 - Td or Tdap) 08/15/2021 08/15/2011 COVID-19 Vaccine ( - season) 2023 Depression Screening 08/31/2023 08/31/2022 HbA1c [...] 12/13/2028 12/13/2023, 09/23, 05/18/2023, Additional history exists GARDASIL-HPV IMMUNIZATION SERIES Aged [...] BLOOD ORDER [facility] [address] [place] [place] [address] documented in this encounter Visit Diagnoses Diagnosis HFrEF (heart failure with reduced ejection fraction) (HCC)- Primary Chronic constipation Unspecified constipation documented in this encounter Care Teams Inverform Machine Operator Relationship Specialty Start Date End Date Dany Caruso MD [address] [place] [address] [place] [address] PCP - General Family Medicine 04/07/21 documented as of this encounter
--- NOTE | 2024-03-24 07:48 | Emergency Department Note ---
History of Present Illness General Chief complaint: GI Assessment Stated complaint: VOMITING,ABD PAIN,POSSIBLE SBO Time Seen by Provider: 03/24/24 07:23 History of Present Illness Maximum Pain Intensity: 10 Patient is a 43-year-old male with past medical history significant for diabetes, complicated by gastroparesis, nonischemic cardiomyopathy, history of CHF, history of PE on Xarelto, dyslipidemia, hypertension, GERD among other chronic medical problems who presents to the emergency department for evaluation of abdominal pain, nausea and vomiting. Patient has been having problems with the gastroparesis for over 6 months. He reports his doctors have given him medications to take but they are not helping. In the last week he has become more nauseous and anorexic. He was not eating a lot. He states he started vomiting in the last 2 days. He has a constant, 10/10 left-sided abdominal pain and bloating. He reports that his vomit is foamy, looks like "diarrhea" and is both dark and grossly bloody. He has had some dark stools as well. He tried Dramamine, but no other medications at home for this. He reports decreased urine output. His continuous glucose monitor fell off a couple of days ago and he has not been checking his blood sugars for the last 4 days. Home Medications Medication Instructions Recorded Confirmed Type atorvastatin 40 mg tablet 40 mg PO QAM 06/23/21 03/24/24 History pantoprazole 40 mg tablet,delayed 40 mg PO DAILYBB 11/19/23 03/24/24 History release insulin human U-100 NPH-regulr 25 unit (0.25 mL) subcut BID #2 11/24/23 03/24/24 Rx 70-30 mix 100 unit/mL subcutaneous vials susp (Novolin 70/30 U-100 Insulin) benzonatate 100 mg capsule 100 mg PO TID PRN cough #15 caps 02/09/24 03/24/24 Rx dulaglutide 0.75 mg/0.5 mL 0.75 mg subcut WK 02/09/24 03/24/24 History subcutaneous pen injector (Trulicity) ezetimibe 10 mg tablet 10 mg PO QAM 02/09/24 03/24/24 History fenofibrate nanocrystallized 145 145 mg PO QAM 02/09/24 03/24/24 History mg tablet furosemide 20 mg tablet 20 mg PO DAILY 02/09/24 03/24/24 History gabapentin 300 mg capsule 300 mg PO TID 02/09/24 03/24/24 History glipizide 10 mg tablet, extended 10 mg PO DAILYBB 02/09/24 03/24/24 History release 24 hr insulin glargine 100 unit/mL (3 45 unit subcut DAILY 02/09/24 03/24/24 History mL) subcutaneous pen levalbuterol tartrate 45 2 inh inhalation Q6H PRN shortness 02/09/24 03/24/24 Rx mcg/actuation aerosol inhaler of breath #15 grams (Xopenex HFA) metoprolol succinate 50 mg 75 mg PO QAM 02/09/24 03/24/24 History tablet,extended release 24 hr sacubitril 24 mg-valsartan 26 mg 1 tab PO BID 02/09/24 03/24/24 History tablet (Entresto) spironolactone 25 mg tablet 25 mg PO QAM 02/09/24 03/24/24 History rivaroxaban 20 mg tablet (Xarelto) 20 mg PO DAILYBD 03/24/24 03/24/24 History Allergies Allergy/AdvReac Type Severity Reaction Status Date / Time Sulfa (Sulfonamide Allergy Intermediate ITCHY/HOT Verified 03/24/24 09:17 Antibiotics) metformin AdvReac Intermediate Diarrhea Verified 03/24/24 09:17 morphine AdvReac Intermediate Nausea Verified 03/24/24 09:17 semaglutide [From Ozempic] AdvReac Intermediate Hallucinati Verified 03/24/24 09:17 ng Past Med/Surg History Problem List (Updated 03/24/24 @ 13:44 by Aye Mortensen MD, PhD) Lactic acid acidosis Metabolic acidosis Intractable nausea and vomiting (Acute) BONILLA (acute kidney injury) (Acute) Deep vein thrombosis, lower left extremity Non-ischemic cardiomyopathy New onset of congestive heart failure (04/2022) Overweight (BMI 25.0-29.9) Alcohol abuse Pleural effusion, bilateral (Acute) Dyspnea (Acute) Right bundle branch block Vitamin D deficiency 8.9 in 06/2019 HLD (hyperlipidemia) TG 2049, TC 301 in 06/2019 T2DM (type 2 diabetes mellitus) HTN (hypertension) GERD (gastroesophageal reflux disease) Medical History (Updated 03/24/24 @ 13:44 by Aye Mortensen MD, PhD) Chronic wound HFrEF (heart failure with reduced ejection fraction) Pulmonary emboli (04/2022) Gastroparesis Hyperglycemic crisis in diabetes mellitus DKA (diabetic ketoacidosis) History of kidney stones Open trimalleolar fracture (2020) Dislocation of ankle, right, open (2020) Surgical History History of ankle surgery (2020) right ankle external fixator/I&D History of colonoscopy History of esophagogastroduodenoscopy (EGD) History of tooth extraction History of wisdom tooth extraction S/P knee surgery remove fluid off right knee History of heart surgery (1983) VSD- age 3---no issues since surgery, 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 Aunt Cardiac disorder Other No family history of adverse response to anesthesia Denies family history of Ovarian cancer Prostate cancer Myocardial infarction Breast cancer Colorectal cancer Social History Smoking Status: Never smoker Age Started Using Tobacco: 16; Age Quit Using Tobacco: 26; packs per day: 0.5; Second Hand Exposure: No; Do You Dip or Chew Tobacco: No; Hx Alcohol Use: No Hx Substance Use: No Preferred Language: Slovenian Communication Ability: Effective Visual Impairment: No Limitations Hearing Ability: Normal Machine Bander And Cellophaner Required: No Beliefs That Will Affect Care: None marital status: Single Current Living Situation: Significant Other current occupational status: employed current occupation: [employer] How many Children do You have: 0 Feels Safe at Home: Yes Dental Care, Regularly: Yes Physical Activity Frequency: 3-4 Times per Week Assistive Devices: None Review of Systems A total of 10 systems reviewed and were otherwise negative Physical Exam Vital Signs Vital Signs - 24 hr 03/24/24 07:18 03/24/24 08:17 03/24/24 08:26 Temperature 36.5 C Temperature Source Temporal Artery Scan Pulse Rate 127 H 104 H Pulse Rate [Left Finger] 108 H Pulse Rhythm [Left Finger] Regular Pulse Strength [Left Finger] Normal Respiratory Rate 16 22 Respiratory Effort / Characteristics Non-Labored Non-Labored Spontaneous Respiratory Depth Normal Normal Respiratory Pattern Regular Blood Pressure 139/96 Blood Pressure [Left Arm] 152/106 H Blood Pressure Mean 110 Blood Pressure Mean [Left Arm] 121 Pulse Oximetry 98 98 Oxygen Delivery Method Room Air Sepsis Recent Fever Within 48 Hours No Sepsis New/Unexplained Change in Mental Status No Sepsis Action Taken by Nursing No Action Required CONSTITUTIONAL: Patient is an uncomfortable 43-year-old male who is awake and alert and laying on the gurney. Significant other is at the bedside. EYES: Pupils equal, round, reactive to light and accommodation. EOMs intact without nystagmus. Sclera are anicteric. ENT: Tympanic membranes intact, with normal landmarks. External canals are clear. Oral and nasopharynx are clear. Mucous membranes are moist, no lesions, tongue and gums appear normal. CARDIOVASCULAR: Regular rate and rhythm. Peripheral pulses easy to palpable. Midline sternotomy surgical scar noted. RESPIRATORY: Breath sounds equal and clear to auscultation. GI: Bowel sounds are diminished. Abdomen is soft, mildly distended, tender to palpation throughout, without guarding or rebound. RECTAL EXAM: No masses or tenderness, there was no stool in the rectal vault, and Hemoccult testing of discharge present was negative. 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 MUSCULOSKELETAL: Full range of motion of extremities x 4 with good strength. No cyanosis, edema, joint tenderness or swelling. No deformity. INTEGUMENTARY: Healing ulceration on the left lower leg. NEUROLOGICAL: Alert, oriented, and cooperative. Cranial nerves, sensation and strength grossly intact. LYMPH: No lymphadenopathy. Course Course The patient was seen and assessed as above. External medical records were reviewed. Case discussed with attending physician, Dr. Bell. He presents to the emergency department for evaluation of nausea and vomiting. History of gastroparesis and likely plays a role in his current presentation. IV lock was initiated and laboratory studies were collected. CBC with differential, CMP, troponin, lipase, coags, urinalysis and type and screen were collected. Of note, he was Hemoccult negative by rectal exam. EKG was obtained. He was placed on the equipment monitor phototypesetting. He was hydrated with a liter bolus of normal saline solution and Zofran [address] scan of the abdomen and pelvis with IV contrast was ordered. Diagnostics, as interpreted by me: Laboratory studies: Laboratory studies note a an elevated white count at 16,500 with left shift. H&H 17.7 and 52.3, platelet count is 256,000. INR 1.1. Electrolytes: Sodium 143, potassium 4.0, chloride 97, carbon dioxide 18, anion gap 28. BONILLA noted creatinine 2.51, baseline is usually 1.0 or less. Nonfasting glucose 255. No transaminitis. Lipase is not indicative of acute pancreatitis. Troponin was performed and was 15.4. ECG: Sinus tachycardia 126 bpm. Cardiac Monitoring: Cardiac monitoring: An order was placed for continuous cardiac monitoring. The monitor shows a sinus tachycardia around 104 bpm per my interpretation. Imaging studies: CT scan of the abdomen pelvis without contrast note no acute infectious or inflammatory process. Diverticulosis without acute diverticulitis. No obstruction. Appendix is normal. Laboratory studies as above. Given the BONILLA, CT scan was changed to a noncontrast study. Patient updated at the bedside. He is still nauseous, retching and dry heaving. He was ordered Reglan 10 mg IV. He is aware that he will need to stay in the hospital. Patient reviewed the ED case aide. Test results discussed with Dr. Bell. Elevated WBC likely to stress of vomiting and dehydration. Patient was carefully rehydrated, given only 1L NSS due to cardiac history/CHF. Tachycardia did improve with hydration and symptom management. Sepsis/SIRS considered, but felt likely related to vomiting/dehydration. Hospitalist did perform a lactate on their evaluation, which was noted to be elevated, however, I do no feel that he meets severe sepsis criteria. Patient was reassessed and CT scan findings were reviewed with him. He was feeling improved with the Reglan. He was requesting ice chips to moisten his mouth, which were given. He is aware that he will be evaluated by the hospitalist team for admission. Patient was reviewed with [facility] hospitalist service, Dr. Pacheco. Please refer to admitting H&P for further information. Differential diagnosis: GERD, gastritis, esophagitis, peptic ulcer disease, biliary colic, acute cholecystitis, cholelithiasis, ascending cholangitis, choledocholithiasis, bowel obstruction, GI bleed, gastroparesis, infectious versus inflammatory colitis/enteritis, electrolyte or metabolic normality, dehydration, among others. Administered Medications Parenteral Electrolytes (Plasma-Lyte A Ph 7.4) 500 mls @ 75 mls/hr IV .Q6H40M ONE Stop: 03/24/24 16:49 Last Admin: 03/24/24 12:05 Dose: 75 mls/hr Documented By: BRENDA Insulin Aspart (Insulin Aspart Per Unit Charge) 0 units SC ACHS IVAN; Protocol Stop: 04/23/24 11:59 Last Admin: 03/24/24 13:45 Dose: 3 units Documented By: AIDEE Co-signed By: NADIR Polyethylene Glycol (Polyethylene (Miralax) 17 Gm Pack) 17 gm PO DAILY IVAN Stop: 04/23/24 12:14 Last Admin: 03/24/24 13:45 Dose: 17 gm Documented By: AIDEE Discontinued Medications Sodium Chloride (Nss) 1,000 mls @ 999 mls/hr IV .Q1H1M IVAN Stop: 03/24/24 08:50 Last Infusion: 03/24/24 09:18 Dose: Infused Documented By: Admin: 03/24/24 08:17 Dose: 999 mls/hr Documented By: ALEN Ondansetron HCl 8 mg/ Dextrose 54 mls @ 200 mls/hr IV NOW STA Stop: 03/24/24 08:06 Last Infusion: 03/24/24 08:45 Dose: Infused Documented By: Admin: 03/24/24 08:17 Dose: 200 mls/hr Documented By: ALEN Fosaprepitant 115 mg/ Sodium (Chloride) 115 mls @ 450 mls/hr IV ONE ONE Stop: 03/24/24 11:45 Last Infusion: 03/24/24 13:47 Dose: Infused Documented By: Admin: 03/24/24 12:04 Dose: 450 mls/hr Documented By: BRENDA Pantoprazole Sodium 40 mg/ (Syringe) 10 mls @ 5 mls/min IV NOW ONE Stop: 03/24/24 11:46 Last Admin: 03/24/24 12:05 Dose: 5 mls/min Documented By: BRENDA Metoclopramide HCl (Metoclopramide Hcl Inj 5 Mg/Ml 2 Ml Vial) 10 mg IV NOW STA Stop: 03/24/24 08:54 Last Admin: 03/24/24 09:10 Dose: 10 mg Documented By: ALEN Medical Decision Making Differential Diagnosis See ED Course. Medical Records Attestation: I reviewed the patient's medical records. Home Medications Current Medication List: was personally reviewed by me Laboratory Data Attestation: I reviewed the patient's lab results. 03/24/24 07:45 03/24/24 07:45 Lab Results 03/24/24 03/24/24 Range/Units 07:45 07:58 WBC 16.57 H (4.8-10.8) K/ul RBC 6.14 H (4.70-6.10) M/uL Hgb 17.7 (14.0-18.0) g/dl Hct 52.3 H (42.0-52.0) % MCV 85.2 (80.0-100.0) fL MCH 28.8 (25.0-34.0) pg MCHC 33.8 (32.0-36.0) g/dL RDW Std Deviation 41.1 (36.4-46.3) fL RDW Coeff of Trevon 13.3 (11.5-14.5) % Plt Count 256 (130-400) K/uL MPV 11.9 (9.4-12.4) fL Immature Gran % (Auto) 0.5 % Neut % (Auto) 93.4 % Lymph % (Auto) 3.6 % Ector % (Auto) 2.2 % Eos % (Auto) 0.1 % Baso % (Auto) 0.2 % Neut # (Auto) 15.47 H (1.40-6.50) K/uL Lymph # (Auto) 0.60 L (1.20-3.40) K/uL Ector # (Auto) 0.37 (0.11-0.59) K/uL Eos # (Auto) 0.01 (0.00-0.50) K/uL Baso # (Auto) 0.04 (0.00-0.20) K/uL Immature Gran # (Auto) 0.08 (0.01-0.20) K/uL PT 11.4 (9.0-12.0) Seconds INR 1.1 (0.9-1.1) APTT 25 (21-31) Seconds PTT Ratio 0.9 Sodium 143 (136-145) mmol/L Potassium 4.0 (3.5-5.1) mmol/L Chloride 97 L (98-107) mmol/L Carbon Dioxide 18 L (21-32) mmol/L Anion Gap 28 H (3-11) BUN 34 H (6-23) mg/dl Creatinine 2.51 H (0.6-1.4) mg/dl Est Cr Clr Drug Dosing 40.5 ml/min Est GFR ( Amer) 34.7 ml/min Est GFR (Non-Af Amer) 30.0 ml/min BUN/Creatinine Ratio 13.5 (10-20) Glucose 255 H (70-99(Fasting)) mg/dl Calcium 10.0 (8.6-10.3) mg/dl Total Bilirubin 0.9 (0.2-1.0) mg/dl AST 21 (13-39) U/L ALT 28 (7-52) U/L Alkaline Phosphatase 81 (34-104) U/L Troponin I High Sens 15.4 (0-20) pg/ml Total Protein 8.7 H (6.0-8.3) gm/dl Albumin 5.7 H (3.4-5.0) gm/dl Globulin 3.0 (2.5-4.0) gm/dl Albumin/Globulin Ratio 1.9 (0.9-2) Lipase 38 (11-82) U/L Blood Type A Positive Antibody Screen NEGATIVE Imaging Data Attestation: I personally reviewed and interpreted this imaging study as follows: Radiologist's Impression: Abdomen/Pelvis CT 03/24/24 08:32 CT abd pelvis wo con CLINICAL HISTORY: LEFT ABD PAIN, N/V TECHNIQUE: Helical axial images of the abdomen and pelvis were obtained. Automated dose lowering techniques and/or adjustment according to patient size were utilized for this exam. This exam was performed without intravenous contrast. CT DOSE: 1295.37 mGy.cm COMPARISON: Comparison is made to CT abdomen pelvis 11/19/2023 FINDINGS: Lower chest: No acute abnormality. Liver: Unremarkable. No focal lesions are seen. Gallbladder and biliary tree: No calcified gallstones. Normal caliber wall. No intra- or extrahepatic biliary ductal dilation. Pancreas: Fatty replacement of the pancreas is seen. Spleen: Splenule is incidentally noted. Adrenals: Unremarkable. Kidneys and ureters: Unremarkable. Bladder: Diffuse homogeneous wall thickening is seen. Reproductive organs: Unremarkable. Bowel: Diverticulosis is seen without diverticulitis. The appendix is normal. A small hiatal hernia is seen. Lymph nodes Retroperitoneal: Unremarkable. Pelvic: Unremarkable. Mesenteric: Unremarkable. Peritoneum: Normal. Vessels: Unremarkable. Abdominal wall: A fat-containing umbilical hernia is seen. Bones: Degenerative changes in the visualized spine. IMPRESSION: 1. No acute abnormality to Splint left-sided pain, in particular there is diverticulosis without evidence of diverticulitis. No obstructive nephrolithiasis is seen. 2. Thickening of the bladder wall may be due to underdistention however clinical correlation is recommended to exclude cystitis. ACT 112: Negative or not required by law. Electronically signed by: Salvatore Delaney M.D. 03/24/2024 9:20 AM MDM Narrative See ED Course. Impression & Plan BONILLA (acute kidney injury), Intractable nausea and vomiting Discharge Plan Visit Data Chief Complaint: GI Assessment Stated Complaint: VOMITING,ABD PAIN,POSSIBLE SBO ED Provider: Mike Bell ED Midlevel Provider: Flora Gomez Discharge Problem: BONILLA (acute kidney injury), Intractable nausea and vomiting Patient Disposition: Admitted As Inpatient Discharge Instructions Interventions: ED Discharge Assessment Last Done: 03/24/24 11:36
[2024-03-24] MEDS: SODIUM CHLORIDE 0.9% 1,000 ML IV SCH (08:17)
[2024-03-24] MEDS: ondansetron HCL 8 MG in DEXTROSE 5% 50 ML IV STA (08:17)
[2024-03-24 08:18] LABS: Hematocrit (blood only) 52.3 % (42.0-52.0); Hemoglobin 17.7 g/dl (14.0-18.0); Mean Corpuscular Hemoglobin 28.8 pg (25.0-34.0); Mean Corpuscular Hgb Conc 33.8 g/dL (32.0-36.0); Mean Corpuscular Volume 85.2 fL (80.0-100.0); Mean Platelet Volume 11.9 fL (9.4-12.4); Platelet Count 256 K/uL (130-400); RDW Coefficient of Variation 13.3 % (11.5-14.5); RDW Standard Deviation 41.1 fL (36.4-46.3); Red Blood Count 6.14 M/uL (4.70-6.10); White Blood Count 16.57 K/ul (4.8-10.8)
[2024-03-24 08:20] LABS: Albumin Globulin Ratio 1.9 (0.9-2); Albumin Level 5.7 gm/dl (3.4-5.0); BUN Creatinine Ratio 13.5 (10-20); Bilirubin,Total 0.9 mg/dl (0.2-1.0); Creatinine Clr Calc Pharmacy 40.5 ml/min; Est GFR (African American) 34.7 ml/min; Total Protein 8.7 gm/dl (6.0-8.3)
[2024-03-24 08:26] LABS: Troponin I High Sensitivity 15.4 pg/ml (0-20)
[2024-03-24 08:31] LABS: Basophils # (auto) 0.04 K/uL (0.00-0.20); Basophils % (auto) 0.2 %; Eosinophils # (auto) 0.01 K/uL (0.00-0.50); Eosinophils % (auto) 0.1 %; Immature Granulocytes # (auto) 0.08 K/uL (0.01-0.20); Immature Granulocytes % (auto) 0.5 %; Lymphocytes % (auto) 3.6 %; Monocytes # (auto) 0.37 K/uL (0.11-0.59); Monocytes % (auto) 2.2 %; Neutrophils # (auto) 15.47 K/uL (1.40-6.50); Neutrophils % (auto) 93.4 %
[2024-03-24 08:34] LABS: INR 1.1 (0.9-1.1); Partial Thromboplastin Ratio 0.9; Partial Thromboplastin Time 25 Seconds (21-31); Prothrombin Time 11.4 Seconds (9.0-12.0)
[2024-03-24] MEDS: METOCLOPRAMIDE HCL INJ 5 MG/ML 2 ML VIAL IV STA (09:10)
--- NOTE | 2024-03-24 09:22 | CT Scan Report ---
CT abd pelvis wo con CLINICAL HISTORY: LEFT ABD PAIN, N/V TECHNIQUE: Helical axial images of the abdomen and pelvis were obtained. Automated dose lowering tech niques and/or adjustment according to patient size were utilized for this exam. This exam was perfor med without intravenous contrast. CT DOSE: 1295.37 mGy.cm COMPARISON: Comparison is made to CT abdomen pelvis 11/19/2023 FINDINGS: Lower chest: No acute abnormality. Liver: Unremarkable. No focal lesions are seen. Gallbladder and biliary tree: No calcified gallstones. Normal caliber wall. No intra- or extrahepatic biliary ductal dilation. Pancreas: Fatty replacement of the pancreas is seen. Spleen: Splenule is incidentally noted. Adrenals: Unremarkable. Kidneys and ureters: Unremarkable. Bladder: Diffuse homogeneous wall thickening is seen. Reproductive organs: Unremarkable. Bowel: Diverticulosis is seen without diverticulitis. The appendix is normal. A small hiatal hernia i s seen. Lymph nodes Retroperitoneal: Unremarkable. Pelvic: Unremarkable. Mesenteric: Unremarkable. Peritoneum: Normal. Vessels: Unremarkable. Abdominal wall: A fat-containing umbilical hernia is seen. Bones: Degenerative changes in the visualized spine. IMPRESSION: 1. No acute abnormality to Splint left-sided pain, in particular there is diverticulosis without denis dence of diverticulitis. No obstructive nephrolithiasis is seen. 2. Thickening of the bladder wall may be due to underdistention however clinical correlation is angie mmended to exclude cystitis. ACT 112: Negative or not required by law. Electronically signed by: Salvatore Delaney M.D. 03/24/2024 9:20 AM
--- NOTE | 2024-03-24 10:00 | History & Physical Report ---
Date of Service March 24, 2024 Assessment & Plan (1) Intractable nausea and vomiting: (2) BONILLA (acute kidney injury): (3) Metabolic acidosis: (4) Lactic acid acidosis: (5) T2DM (type 2 diabetes mellitus): (6) Gastroparesis: (7) HFrEF (heart failure with reduced ejection fraction): (8) Non-ischemic cardiomyopathy: Plan This is a 43-year-old male who has significant past medical history of T2DM, HTN, hypertriglyceridemia, chronic HFrEF, history of pulmonary embolism, GERD, gastroparesis, diabetic autonomic neuropathy history of alcohol abuse who presents to ED secondary to nausea vomiting. Pt does meet SIRS criteria with leukocytosis and tachycardia and lactic acidos is. No apparent source of infection identified. I believe this is all driven in setting of BONILLA and exacerbation of gastroparesis. Will obtain stool studies and urinalysis. Intractable N/V BONILLA Metabolic acidosis in setting of GI Loss and BONILLA Lactic acidosis unintentional 30lb weight loss Hematemesis reported, stable hgb admit to med [employer] IV Emend x 1 now IV PPI BID Consult gastroenterology for consideration of EGD/Cscope hgb stable, suspected elevated in setting of dehydration and expect it to as he is hydrated Dr. Pacheco discussed with nephro Dr. Mortensen to begin IV Plasma Lyte 75cc/hr He received 1 L of IVF in ED, will not do further bolus due to hx of HFrEF He does use marijuana gummies x 1 year ? if this is contributing trend metabolic panel baseline cr 1.1 ~ T2DM, A1C 7.7 Diabetic neuropathy Diabetic Gastroparesis hold glipizide, Trulicity lantus/novolog per protocol will consult glycemic pharmacy, he does follow [facility] in clinic renal dose gabapentin Chronic HFrEF Non ischemic Cardiomyopathy follows [facility] on GDMT statin, entresto, lasix , aldactone hold GDMT in setting of BONILLA last echo 05/2023 EF 35-39%, diffuse LV hypokinesis Hx of DVT/PE hx of unprovoked dvt/PE x 2, on life long anticoagulation hold xarelto due to reported hematemesis until eval by GI resume as soon as able Hx of Alcohol abuse currently denies use Current Marijuana Gummy use DVT ppx: Xarelto on hold until eval by GI FULL CODE PCP: Dr. Caruso Dispo: admit to med tele Pt was seen and examined in collaboration with Dr. Pacheco, please see addendum A total of 76 minutes was spent coordinating, documenting, and providing care for this patient excluding time spent in the performance of separately billed services. This included personally viewing all current laboratories and imaging studies, medication reconciliation, outpatient chart review, and discussion with specialists. History of Present Illness Chief Complaint: Nausea and vomiting for several months, but worsening over last 2 weeks. Primary Care Provider: Dany Caruso MD This is a 43-year-old male who has significant past medical history of T2DM, HTN, hypertriglyceridemia, chronic HFrEF, history of pulmonary embolism, GERD, gastroparesis, diabetic autonomic neuropathy history of alcohol abuse who presents to ED secondary to nausea vomiting. He has been experiencing nausea and vomiting for several months; however, it has been worsening over the last 2 weeks. He reports a 30 pound unintentional weight loss over the past month. He is unable to eat anything due to his chronic nausea. It is persistent 24 hours a day. Is also associate with a generalized abdominal pain. This pain is localized all over his abdomen with no pinpoint tenderness. The pain is constant, does not wax and wane and nothing seems to make it better or worse. He also states he has not had a normal bowel movement in 2 weeks. He states that when he moves his bowels it is a very small amount of mostly, "it is pushing through something." He is very concerned that there is something wrong. He states his last colonoscopy and EGD was approximately 10 years ago. He has not seen a periodicals library assistant in a while, but states he has been trying to do so. He does use edible marijuana Gummies and has been for the past year. He states, "you know something is wrong when even these do not make you hungry." He complains of a lack of appetite. He has had a significant improvement in his A1c to 7.7 but attributes this to, "not eating."He denies any recent acute illness or sick contacts. He denies fever, lightheadedness, dizziness, chest pain, shortness breath, cough, hemoptysis, dysuria, increased urgency or frequency with urination, melena or hematochezia. He does report a one-time episode of black stool after drinking a bottle of [employer] mag citrate. In ED patient was hypertensive and tachycardic. His lab work notable for leukocytosis at 16.57k, H&H 17.7 and 52.3, BUN and creatinine of 33 and 2.51, anion gap 28, CO2 18 and chloride 97, lactate 3.2, glucose 255. CT abdomen pelvis did not reveal any acute abnormalities. He [facility] with [facility] for Chronic HFrEF and nonischemic cardiomyopathy. His last echo was May of 2023 which revealed EF 35-39% with moderate diffuse left ventricular hypokinesis. His outpatient epic records were reviewed which revealed a last upper GI and colonoscopy in 2013. Colonoscopy revealed significant formed stool, large and small mouth diverticula in the sigmoid colon and internal hemorrhoids. Upper GI revealed pancreatic parenchymal abnormalities consisting of diffuse echogenicity through the entire pancreas, fatty liver but otherwise normal. Allergies Allergy/AdvReac Type Severity Reaction Status Date / Time Sulfa (Sulfonamide Allergy Intermediate ITCHY/HOT Verified 03/24/24 09:17 Antibiotics) metformin AdvReac Intermediate Diarrhea Verified 03/24/24 09:17 morphine AdvReac Intermediate Nausea Verified 03/24/24 09:17 semaglutide [From Ozempic] AdvReac Intermediate Hallucinati Verified 03/24/24 09:17 ng Home Medications Medication Instructions Recorded Confirmed Type atorvastatin 40 mg tablet 40 mg PO QAM 06/23/21 03/24/24 History pantoprazole 40 mg tablet,delayed 40 mg PO DAILYBB 11/19/23 03/24/24 History release insulin human U-100 NPH-regulr 25 unit (0.25 mL) subcut BID #2 11/24/23 03/24/24 Rx 70-30 mix 100 unit/mL subcutaneous vials susp (Novolin 70/30 U-100 Insulin) benzonatate 100 mg capsule 100 mg PO TID PRN cough #15 caps 02/09/24 03/24/24 Rx dulaglutide 0.75 mg/0.5 mL 0.75 mg subcut WK 02/09/24 03/24/24 History subcutaneous pen injector (Trulicity) ezetimibe 10 mg tablet 10 mg PO QAM 02/09/24 03/24/24 History fenofibrate nanocrystallized 145 145 mg PO QAM 02/09/24 03/24/24 History mg tablet furosemide 20 mg tablet 20 mg PO DAILY 02/09/24 03/24/24 History gabapentin 300 mg capsule 300 mg PO TID 02/09/24 03/24/24 History glipizide 10 mg tablet, extended 10 mg PO DAILYBB 02/09/24 03/24/24 History release 24 hr insulin glargine 100 unit/mL (3 45 unit subcut DAILY 02/09/24 03/24/24 History mL) subcutaneous pen levalbuterol tartrate 45 2 inh inhalation Q6H PRN shortness 02/09/24 03/24/24 Rx mcg/actuation aerosol inhaler of breath #15 grams (Xopenex HFA) metoprolol succinate 50 mg 75 mg PO QAM 02/09/24 03/24/24 History tablet,extended release 24 hr sacubitril 24 mg-valsartan 26 mg 1 tab PO BID 02/09/24 03/24/24 History tablet (Entresto) spironolactone 25 mg tablet 25 mg PO QAM 02/09/24 03/24/24 History rivaroxaban 20 mg tablet (Xarelto) 20 mg PO DAILYBD 03/24/24 03/24/24 History Past Med/Surg History Problem List (Updated 03/24/24 @ 10:56 by Suma Banegas PA-C) Gastroparesis Lactic acid acidosis Metabolic acidosis Intractable nausea and vomiting (Acute) BONILLA (acute kidney injury) (Acute) Chronic wound Deep vein thrombosis, lower left extremity Non-ischemic cardiomyopathy HFrEF (heart failure with reduced ejection fraction) New onset of congestive heart failure (04/2022) Overweight (BMI 25.0-29.9) Alcohol abuse Pulmonary emboli (Acute 04/2022) Pleural effusion, bilateral (Acute) Dyspnea (Acute) Right bundle branch block Vitamin D deficiency 8.9 in 06/2019 HLD (hyperlipidemia) TG 2049, TC 301 in 06/2019 T2DM (type 2 diabetes mellitus) HTN (hypertension) GERD (gastroesophageal reflux disease) Medical History Hyperglycemic crisis in diabetes mellitus DKA (diabetic ketoacidosis) History of kidney stones Gastroparesis Open trimalleolar fracture (2020) Dislocation of ankle, right, open (2020) Surgical History History of ankle surgery (2020) right ankle external fixator/I&D History of colonoscopy History of esophagogastroduodenoscopy (EGD) History of tooth extraction History of wisdom tooth extraction S/P knee surgery remove fluid off right knee History of heart surgery (1983) VSD- age 3---no issues since surgery, 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 Liaison Required: No Beliefs That Will Affect Care: None marital status: Single Current Living Situation: Significant Other current occupational status: employed current occupation: [employer] How many Children do You have: 0 Feels Safe at Home: Yes Dental Care, Regularly: Yes Physical Activity Frequency: 3-4 Times per Week Assistive Devices: None Review of Systems Review of Systems: All systems reviewed & are unremarkable except as noted in HPI & below Physical Exam Physical Exam: Constitutional: WD/WN, appears acute ill, vitals as above, NAD, sitting up in bed, pleasant, conversing easily Head: Normocephalic, Atraumatic Eyes: PERRL, conjunctivae normal, anicteric sclerae dry membranes ENMT: external ear and nose normal, oropharynx normal Neck: trachea midline, no thyromegaly normal visual inspection Respiratory: normal respiratory effort, lungs clear to auscultation, no wheeze, rales, rhonchi. Normal insp/exp effort, no accessory muscle use Cardiovascular: tachycardic rate, reg rhythm, no murmur, no edema Vessels: no JVD or carotid bruit Chest: normal inspection of chest Abdomen: normal bowel sounds, soft, nontender, no hepatosplenomegaly Musculoskeletal: no cyanosis or clubbing, extremities motor strength 5/5 Skin: no rashes, warm and dry normal turgor + old healed wound to L medial ankle Neurologic: PERRL, EOMI, accommodation nl, no face palsy, no dysarthria CN's II-XI intact bilaterally and moves all extremities Psychiatric: A+Ox3, euthymic affect Lymphatic: no cervical or axillary lymphadenopathy : deferred Results & Data Results & Data Vital Signs (Past 12 Hours) Vital Signs Temp Pulse Pulse Resp BP BP Pulse Ox 03/24/24 08:26 104 H 03/24/24 08:17 108 H 22 152/106 H 98 03/24/24 07:18 36.5 C 127 H 16 139/96 98 O2 Del Method 03/24/24 08:26 03/24/24 08:17 Room Air 03/24/24 07:18 Diagnostic Findings Abdomen/Pelvis CT 03/24/24 08:32 CT abd pelvis wo con CLINICAL HISTORY: LEFT ABD PAIN, N/V TECHNIQUE: Helical axial images of the abdomen and pelvis were obtained. Automated dose lowering techniques and/or adjustment according to patient size were utilized for this exam. This exam was performed without intravenous contrast. CT DOSE: 1295.37 mGy.cm COMPARISON: Comparison is made to CT abdomen pelvis 11/19/2023 FINDINGS: Lower chest: No acute abnormality. Liver: Unremarkable. No focal lesions are seen. Gallbladder and biliary tree: No calcified gallstones. Normal caliber wall. No intra- or extrahepatic biliary ductal dilation. Pancreas: Fatty replacement of the pancreas is seen. Spleen: Splenule is incidentally noted. Adrenals: Unremarkable. Kidneys and ureters: Unremarkable. Bladder: Diffuse homogeneous wall thickening is seen. Reproductive organs: Unremarkable. Bowel: Diverticulosis is seen without diverticulitis. The appendix is normal. A small hiatal hernia is seen. Lymph nodes Retroperitoneal: Unremarkable. Pelvic: Unremarkable. Mesenteric: Unremarkable. Peritoneum: Normal. Vessels: Unremarkable. Abdominal wall: A fat-containing umbilical hernia is seen. Bones: Degenerative changes in the visualized spine. IMPRESSION: 1. No acute abnormality to Splint left-sided pain, in particular there is diverticulosis without evidence of diverticulitis. No obstructive nephrolithiasis is seen. 2. Thickening of the bladder wall may be due to underdistention however clinical correlation is recommended to exclude cystitis. ACT 112: Negative or not required by law. Electronically signed by: Salvatore Delaney M.D. 03/24/2024 9:20 AM Medications Administered Medication List Discontinued Medications Sodium Chloride (Nss) 1,000 mls @ 999 mls/hr IV .Q1H1M IVAN Stop: 03/24/24 08:50 Last Admin: 03/24/24 08:17 Dose: 999 mls/hr Documented By: ALEN Ondansetron HCl 8 mg/ Dextrose 54 mls @ 200 mls/hr IV NOW STA Stop: 03/24/24 08:06 Last Infusion: 03/24/24 08:45 Dose: Infused Documented By: Admin: 03/24/24 08:17 Dose: 200 mls/hr Documented By: ALEN Metoclopramide HCl (Metoclopramide Hcl Inj 5 Mg/Ml 2 Ml Vial) 10 mg IV NOW STA Stop: 03/24/24 08:54 Last Admin: 03/24/24 09:10 Dose: 10 mg Documented By: ALEN ECG Additional Comments: I have independently reviewed and interpreted patient's admitting EKG which revealed: sinus tach, 126 bpm, RBBB, COVID-19 Results Results COVID-19 Adm Lab Results: RBC 6.14 M/uL (4.70-6.10) H 03/24/24 WBC 16.57 K/ul (4.8-10.8) H 03/24/24 Hgb 17.7 g/dl (14.0-18.0) 03/24/24 Hct 52.3 % (42.0-52.0) H 03/24/24 Plt Count 256 K/uL (130-400) 03/24/24 Neutrophils (%) (Auto) 93.4 % 03/24/24 Lymphocytes (%) (Auto) 3.6 % 03/24/24 Monocytes # (Auto) 0.37 K/uL (0.11-0.59) 03/24/24 Eosinophils # (Auto) 0.01 K/uL (0.00-0.50) 03/24/24 Immature Granulocyte % (Auto) 0.5 % 03/24/24 Neutrophils # (Auto) 15.47 K/uL (1.40-6.50) H 03/24/24 Lymphocytes # (Auto) 0.60 K/uL (1.20-3.40) L 03/24/24 Monocytes # (Auto) 0.37 K/uL (0.11-0.59) 03/24/24 Eosinophils # (Auto) 0.01 K/uL (0.00-0.50) 03/24/24 Basophils # (Auto) 0.04 K/uL (0.00-0.20) 03/24/24 Immature Granulocyte # (Auto) 0.08 K/uL (0.01-0.20) 4 Na 143 mmol/L (136-145) 03/24/24 K 4.0 mmol/L (3.5-5.1) 03/24/24 Cl 97 mmol/L (98-107) L 03/24/24 CO2 18 mmol/L (21-32) L 03/24/24 Anion Gap 28 (3-11) H 03/24/24 BUN 34 mg/dl (6-23) H 03/24/24 Creatinine 2.51 mg/dl (0.6-1.4) H 03/24/24 BUN/Creatinine Ratio 13.5 (10-20) 03/24/24 Glucose Level 255 mg/dl (70-99(Fasting)) H 03/24/24 Ca 10.0 mg/dl (8.6-10.3) 03/24/24 Total Bilirubin 0.9 mg/dl (0.2-1.0) 03/24/24 AST/SGOT 21 U/L (13-39) 03/24/24 ALT/SGPT 28 U/L (7-52) 03/24/24 Alkaline Phosphatase 81 U/L (34-104) 03/24/24 Total Protein 8.7 gm/dl (6.0-8.3) H 03/24/24 Albumin 5.7 gm/dl (3.4-5.0) H 03/24/24 Globulin 3.0 gm/dl (2.5-4.0) 03/24/24 Albumin/Globulin Ratio 1.9 (0.9-2) 03/24/24 PTT 25 Seconds (21-31) 03/24/24 INR 1.1 (0.9-1.1) 03/24/24 Code Status & VTE Plan Code Status FULL CODE VTE Prophylaxis Plan VTE Prophylaxis will be ordered: Yes Supervising Physician Co-Signing Physician Notes Attending Addendum: care coordinated with YULY Banegas please refer to her notes for full details, I agree with her notes patient seen and examined, records reviewed by myself as well on exam, patient seen resting in bed, not in distress, appears on the weak side but comfort Reports crampy generalized abdominal discomfort associate with nausea no other symptoms VS noted and reviewed oriented x 3, not in distress, speaks in sentences with no effort nor accessory muscle use normal rate, regular rhythm, no murmurs clear breath sounds bilaterally non distended, soft, Mild tenderness in all quadrants no bipedal edema, erythema, warmth Healing wound on the left lower harvey region, no signs of infection no neuro deficits All labs noted and reviewed ASSESSMENT AND PLAN> 43-year-old male with history of cardiomyopathy, diabetes type 2, DVT PE on Xarelto,etc. Presenting with persistent nausea and vomiting times few days. Intractable nausea/vomiting likely secondary to gastroparesis, cannabis product use? Also reports episodes of mild hematemesis Hemoglobin stable at 17 Emend ordered, Protonix IV twice daily n.p.o., IV fluids Hold Xarelto GI consult Acute renal failure, secondary to vomiting, poor oral intake Metabolic acidosis Discussed with legal coordinator Dr. Jay murray normosol VBG appears normal Hold Lasix, Entresto other diagnoses and plan of care as per YULY Banegas's notes Deon Pacheco MD
[2024-03-24] MEDS ORDERED: ONDANSETRON INJ 2 MG/ML 2 ML VIAL IV STA (10:29)
[2024-03-24 10:44] LABS: Base Excess VBG -2.2 mEq/L; HCO3 VBG 23 mmol/L; Oxygen Saturation VBG 68.3 %; PCO2 VBG 38 mmHg (38-50); PO2 VBG 38 mmHg; pH VBG 7.38 (7.36-7.41)
[2024-03-24 11:23] LABS: Appearance Urine Cloudy (Clear); Bacteria Urine Automated None Seen (None Seen); Bilirubin Urine Negative (Negative); Blood Urine Negative (Negative); Cast Urine Automated >20 /lpf (0-2); Color Urine Yellow; Epithelial Cell Urine Auto 0-2 /hpf (0-2); Glucose Urine UA 3+ (Negative); Ketones Urine 1+ (Negative); Leukocyte Esterase Urine Negative (Negative); Nitrite Urine Negative (Negative); Protein Urine 2+ (Negative); RBC Urine Automated 0-2 /hpf (0-2); Specific Gravity Urine 1.026 (1.000-1.030); Urobilinogen Urine Negative (Negative); WBC Urine Automated 0-5 /hpf (0-5)
[2024-03-24] MEDS ORDERED: hydrALAZINE HCL 20 MG/ML VIAL IV PRN (11:36)
[2024-03-24] MEDS ORDERED: PHARMACY GLYCEMIC MGMT CONSULT PRN (11:36)
[2024-03-24] MEDS ORDERED: GLUCOSE 10 TAB/TUBE PO PRN (11:36)
[2024-03-24] MEDS ORDERED: CARBOHYDRATES FOR HYPOGLYCEMIA PO PRN (11:36)
[2024-03-24] MEDS ORDERED: GLUCOSE 40% GEL 15 GM TUBE PO PRN (11:36)
[2024-03-24] MEDS ORDERED: GLUCAGON FOR INJ 1 MG VIAL SQ PRN (11:36)
[2024-03-24] MEDS ORDERED: DEXTROSE 50% 50 ML SYRINGE IV PRN (11:36)
[2024-03-24] MEDS ORDERED: POLYETHYLENE (MIRALAX) 17 GM PACK PO PRN (11:36)
[2024-03-24] MEDS: FOSAPREPITANT DIMEGLUMINE 115 MG in 0.9 % SODIUM CHLORIDE 111.1667 ML IV ONE (12:04)
[2024-03-24] MEDS: PANTOprazole 40 MG in SYRINGE 0 ML IV ONE (12:05)
[2024-03-24] MEDS: PLASMA-LYTE A 500 ML IV ONE (12:05)
--- NOTE | 2024-03-24 13:35 | Nephrology Consultation ---
Date of Consultation March 24, 2024 Assessment & Plan (1) BONILLA (acute kidney injury): stage 2 nonoliguric BONILLA bordering on stage 3 and progressive renal dysfunction over past 6 mos. prior baseline creatinine until september 2023 had been 0.8; then baseline creatinine 0.9 Sep-Nov; in january and February creatinine more in 1.3 range, not long enough to call this CKD but certainly w/ concerning progression. no acidosis on VBG fortunately, though ketonuria noted. no obstruction on imaging. UA w/ concentrated urine notable for glucose, ketones, protein and no bacteria, no blood or other inflammation. -ordered prot/creat, urine electrolytes -cont to hold spironolactone, lasix, entresto, jardiance >monitor for euglycemic ketoacidosis on jardiance > though w/ no acidosis on VBG, suspicion lower -defer management of GI sx to primary service and to GI -daily bmp -strict I/O -daily STANDING weight -ordered baseline CXR >> no acute process -agree w/ continuing to hold for now entresto, jardiance, spironolactone, lasix Appreciate c/s; will follow with you. High risk for longer term morbidity, mortality, hospital readmission with severe BONILLA. History of Present Illness Reason for Consultation: BONILLA, metabolic acidosis Requesting Physician: Dr Pacheco Attending Physician: Deon Pacheco MD History of Present Illness 43 y/o M whom I'm asked to see for BONILLA was admitted today for same in the setting of a few weeks of n/v. complex PMH includes proteinuria, HTN, chronic systolic HF EF 35%, cardiomyopathy, DM 2 w/ gastroparesis, GERD, chronic LE cellulitis w/ chronic wound nearly healed, reported EtOH abuse, hx of PE not . PMH of 1.5 gm albuminuria in 2021, improved to 166 mg/g on assay last April. his renal function has progressively worsened in the past 6-8 mos. Baseline creatinine in 2022 was 0.8; then increased to 0.9 from Sep 2023- Nov 2023; then in January and February it has been running at 1.3. He was 2.5 on presentation here today. He takes lasix, entresto, spironolactone, high dose gapapentin, and jardiance as an OP. he saw cardiology in clinic on 03/20 > deemed stable from cardiac standpoint but referred to GI for mgt of gastroparesis, n/v, constipation. N has been coming on gradually/intermittently. but not had anything po for past few days. has had severe nausea also emesis today. he is currently receiving 500 mL of plasmalyte at my recommendation; he also had a L of NS in ER and anti emetics. UA, VBG, prot/creat ratio, lactate were obtained at my direction. his diuretics were held and isabelle dose frequency lowered tid > bid. he c/o ongoing chest discomfort/abd discomfort w/ N which is relieved by emesis; denies chest pain or palpitations; denies orthopnea or dypsnea. had some abdominal pain earlier. no edema; no new/worrisome voiding sx. no f/c or rash. Allergies Allergy/AdvReac Type Severity Reaction Status Date / Time Sulfa (Sulfonamide Allergy Intermediate ITCHY/HOT Verified 03/24/24 09:17 Antibiotics) metformin AdvReac Intermediate Diarrhea Verified 03/24/24 09:17 morphine AdvReac Intermediate Nausea Verified 03/24/24 09:17 semaglutide [From Ozempic] AdvReac Intermediate Hallucinati Verified 03/24/24 09:17 ng Home Medications Medication Instructions Recorded Confirmed Type atorvastatin 40 mg tablet 40 mg PO QAM 06/23/21 03/24/24 History pantoprazole 40 mg tablet,delayed 40 mg PO DAILYBB 11/19/23 03/24/24 History release insulin human U-100 NPH-regulr 25 unit (0.25 mL) subcut BID #2 11/24/23 03/24/24 Rx 70-30 mix 100 unit/mL subcutaneous vials susp (Novolin 70/30 U-100 Insulin) benzonatate 100 mg capsule 100 mg PO TID PRN cough #15 caps 02/09/24 03/24/24 Rx dulaglutide 0.75 mg/0.5 mL 0.75 mg subcut WK 02/09/24 03/24/24 History subcutaneous pen injector (Trulicity) ezetimibe 10 mg tablet 10 mg PO QAM 02/09/24 03/24/24 History fenofibrate nanocrystallized 145 145 mg PO QAM 02/09/24 03/24/24 History mg tablet furosemide 20 mg tablet 20 mg PO DAILY 02/09/24 03/24/24 History gabapentin 300 mg capsule 300 mg PO TID 02/09/24 03/24/24 History glipizide 10 mg tablet, extended 10 mg PO DAILYBB 02/09/24 03/24/24 History release 24 hr insulin glargine 100 unit/mL (3 45 unit subcut DAILY 02/09/24 03/24/24 History mL) subcutaneous pen levalbuterol tartrate 45 2 inh inhalation Q6H PRN shortness 02/09/24 03/24/24 Rx mcg/actuation aerosol inhaler of breath #15 grams (Xopenex HFA) metoprolol succinate 50 mg 75 mg PO QAM 02/09/24 03/24/24 History tablet,extended release 24 hr sacubitril 24 mg-valsartan 26 mg 1 tab PO BID 02/09/24 03/24/24 History tablet (Entresto) spironolactone 25 mg tablet 25 mg PO QAM 02/09/24 03/24/24 History rivaroxaban 20 mg tablet (Xarelto) 20 mg PO DAILYBD 03/24/24 03/24/24 History Patient History Medical History Chronic wound HFrEF (heart failure with reduced ejection fraction) Pulmonary emboli (04/2022) Gastroparesis Hyperglycemic crisis in diabetes mellitus DKA (diabetic ketoacidosis) History of kidney stones Open trimalleolar fracture (2020) Dislocation of ankle, right, open (2020) Surgical History History of ankle surgery (2020) right ankle external fixator/I&D History of colonoscopy History of esophagogastroduodenoscopy (EGD) History of tooth extraction History of wisdom tooth extraction S/P knee surgery remove fluid off right knee History of heart surgery (1983) VSD- age 3---no issues since surgery, 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 Aunt Cardiac disorder Other No family history of adverse response to anesthesia Denies family history of Ovarian cancer Prostate cancer Myocardial infarction Breast cancer Colorectal cancer Social History Smoking Status: Never smoker Age Started Using Tobacco: 16; Age Quit Using Tobacco: 26; packs per day: 0.5; Second Hand Exposure: No; Do You Dip or Chew Tobacco: No; Hx Alcohol Use: No Hx Substance Use: No Preferred Language: Korean Communication Ability: Effective Visual Impairment: No Limitations Hearing Ability: Normal Special Service Representative Required: No Beliefs That Will Affect Care: None marital status: Single Current Living Situation: Significant Other current occupational status: employed current occupation: [employer] How many Children do You have: 0 Feels Safe at Home: Yes Dental Care, Regularly: Yes Physical Activity Frequency: 3-4 Times per Week Assistive Devices: None Review of Systems 2 Review of Systems: All systems reviewed & are unremarkable except as noted in HPI & below Physical Exam 2 Constitutional: well developed, well nourished, + acute distress (mild distress from N), + ill appearing and cooperative Eyes: EOM intact bilaterally ENMT: Ears: no external ear abnormality Nose: no external nose abnormality Mouth: + dry oral mucous membranes Neck: no nuchal rigidity Respiratory: normal respiratory effort Auscultation: + diminished lung sounds Cardiovascular: Rate/Rhythm: + tachycardic Palpation: + abnormal PMI E xtremities: normal capillary refill; no edema Gastrointestinal (Abdomen): Inspection/Auscultation: normal bowel sounds P ercussion/Palpation: abdomen soft; abdomen nontender Musculoskeletal: Extremities: strength 5/5 throughout Skin: no rashes, warm and dry Neurologic: bejarano, fluent speech, no tremor Psychiatric: Orientation: alert and oriented x 3 Results & Data Vital Signs (Past 12 Hours) Vital Signs Temp Pulse Pulse Resp BP BP Pulse Ox 03/24/24 10:00 112 H 15 155/103 H 97 03/24/24 08:26 104 H 03/24/24 08:17 108 H 22 152/106 H 98 03/24/24 07:18 36.5 C 127 H 16 139/96 98 O2 Del Method 03/24/24 10:00 03/24/24 08:26 03/24/24 08:17 Room Air 03/24/24 07:18 Laboratory Results 03/24/24 07:45 03/24/24 07:[address] a/p non con 1. No acute abnormality to Splint left-sided pain, in particular there is diverticulosis without evidence of diverticulitis. No obstructive nephrolithiasis is seen. 2. Thickening of the bladder wall may be due to underdistention however clinical correlation is recommended to exclude cystitis.
[2024-03-24] MEDS: INSULIN ASPART PER UNIT CHARGE SC SCH (13:45)
[2024-03-24] MEDS: POLYETHYLENE (MIRALAX) 17 GM PACK PO SCH (13:45)
[2024-03-24] MEDS ORDERED: ALUMINUM/MAGNESIUM/SIMETH (MAALOX MAX) 30 ML UDC PO PRN (14:18)
--- NOTE | 2024-03-24 14:41 | Pharmacy Report ---
Pharmacy Glycemic Short Note 2 - Date of Service March 24, 2024 - Glycemic Short BSG Results (Last 24 hours): 03/24/24 03/24/24 07:45 13:40 Glucose 255 H POC Glucose 205 H OUTPATIENT ANTIDIABETIC REGIMEN: * Lantus 45 units SC daily * Novolin 70/30: 25 units SC BID * Glipizide 10 mg PO daily * Trulicity 0.75 mg SC on Fridays * HbA1c pending ASSESSMENT: * 43 yo M admitted on 03/24/24 secondary to gastroparesis. Pharmacy has been consulted to assist with inpatient glycemic management. Patient is a Type 2 diabetic as an outpatient. Please refer to outpatient regimen and most recent HbA1c above. * BSG was 255 mg/dL upon arrival. No insulin received today. Repeat A1c ordered for tomorrow. Upon admission, BSG was 205 mg/dL. * Will give 20 units of basal x 1. Reassess bolus tomorrow as patient is cu rrently NPO. Novolog will be based on previous admission data. PLAN FOR INPATIENT GLYCEMIC CONTROL: * Hold outpatient oral diabetes medications * Basal insulin * Lantus 20 units SC x 1 * Bolus insulin * NovoLog per scale ACHS or Q6hrs while NPO * Goal Range: Low 110 mg/dL - High 140 mg/dL * Correction Factor: 15 mg/dL/unit * Nutritional / Prandial insulin per carb ratio of 1 unit per 4 grams CHO consumed
--- NOTE | 2024-03-24 15:38 | XRay Report ---
XR chest 1V portable CLINICAL HISTORY: HF pt w/ BONILLA> assess volume TECHNIQUE: Single frontal radiograph of the chest was obtained. Comparison: Comparison is made to chest radiograph 02/09/2024 FINDINGS: No lines and tubes are seen. The cardiomediastinal silhouette is normal. The lungs are clear. No evid ence of pleural effusion or pneumothorax. IMPRESSION: No acute chest disease. ACT 112: Negative or not required by law. Electronically signed by: Salvatore Delaney M.D. 03/24/2024 3:36 PM
[2024-03-24] MEDS: LANTUS PER UNIT CHARGE SC STA (16:08)
[2024-03-24 17:46] LABS: Creatinine Urine Random 170.1 mg/dl; Protein Creatinine Ratio Urine 0.4 (0-0.2); Total Protein Urine Random 62.1 mg/dl (0-11.9); Urine Chloride < 15 mmol/L; Urine Potassium 83.7 mmol/L; Urine Sodium 28 mmol/L
[2024-03-24] MEDS: PROMETHAZINE HCL 12.5 MG in SODIUM CHLORIDE 0.9% 50 ML IV PRN (18:00)
[2024-03-24] MEDS: ONDANSETRON INJ 2 MG/ML 2 ML VIAL IV PRN (19:03)
[2024-03-24] MEDS: PANTOprazole 40 MG in SYRINGE 0 ML IV SCH (20:31)
[2024-03-24] MEDS: GABAPENTIN 300 MG CAP PO SCH (22:23)
[2024-03-25] MEDS: METOPROLOL SUCC 25MG EXT REL TAB PO SCH (07:46)
[2024-03-25 08:02] LABS: Basophils # (auto) 0.02 K/uL (0.00-0.20); Basophils % (auto) 0.2 %; Eosinophils # (auto) 0.01 K/uL (0.00-0.50); Eosinophils % (auto) 0.1 %; Hematocrit (blood only) 45.8 % (42.0-52.0); Hemoglobin 15.5 g/dl (14.0-18.0); Immature Granulocytes # (auto) 0.09 K/uL (0.01-0.20); Immature Granulocytes % (auto) 0.7 %; Lymphocytes # (auto) 0.92 K/uL (1.20-3.40); Lymphocytes % (auto) 7.2 %; Mean Corpuscular Hemoglobin 28.9 pg (25.0-34.0); Mean Corpuscular Hgb Conc 33.8 g/dL (32.0-36.0); Mean Corpuscular Volume 85.3 fL (80.0-100.0); Mean Platelet Volume 11.3 fL (9.4-12.4); Monocytes # (auto) 0.99 K/uL (0.11-0.59); Monocytes % (auto) 7.7 %; Neutrophils # (auto) 10.76 K/uL (1.40-6.50); Neutrophils % (auto) 84.1 %; Platelet Count 177 K/uL (130-400); RDW Coefficient of Variation 13.2 % (11.5-14.5); Red Blood Count 5.37 M/uL (4.70-6.10); White Blood Count 12.79 K/ul (4.8-10.8)
[2024-03-25 08:14] LABS: Estimated Average Glucose 128 mg/dl; Hemoglobin A1C 6.1 % (4.5-5.6)
[2024-03-25 08:18] LABS: Albumin Level 4.7 gm/dl (3.4-5.0); BUN Creatinine Ratio 24.8 (10-20); Calcium 8.9 mg/dl (8.6-10.3); Creatinine Clr Calc Pharmacy 69.9 ml/min; Est GFR (African American) 65.2 ml/min; Est GFR (Non-African American) 56.3 ml/min; Globulin 2.4 gm/dl (2.5-4.0); Magnesium 2.2 mg/dl (1.7-2.4); Potassium 3.6 mmol/L (3.5-5.1); Total Protein 7.1 gm/dl (6.0-8.3)
[2024-03-25] MEDS: LANTUS PER UNIT CHARGE SC SCH (08:34)
--- NOTE | 2024-03-25 08:46 | Pharmacy Report ---
Pharmacy Glycemic Short Note 2 - Date of Service March 25, 2024 - Glycemic Short BSG Results (Last 24 hours): 03/24/24 03/24/24 03/24/24 13:40 17:42 20:38 Glucose POC Glucose 205 H 160 H 158 H 03/25/24 03/25/24 07:40 08:01 Glucose 146 H POC Glucose 145 H OUTPATIENT ANTIDIABETIC REGIMEN: * Lantus 45 units SC daily * Novolin 70/30: 25 units SC BID * Glipizide 10 mg PO daily * Trulicity 0.75 mg SC on Fridays * HbA1c 6.1% (03/25/24) ASSESSMENT: 03/25: * Man received 27 units of insulin following admission yesterday, 20 of which were basal. BSGs were 205-160-158 mg/dL. * Fasting BSG was 145 mg/dL this AM. Patient remains NPO for N/V and gastroparesis. Will continue with current basal dose. Will need increased once patient starts eating. Could also consider NPH when patient starts eating. * No change to Novolog for now. 03/24: * 43 yo M admitted on 03/24/24 secondary to gastroparesis. Pharmacy has been consulted to assist with inpatient glycemic management. Patient is a Type 2 diabetic as an outpatient. Please refer to outpatient regimen and most recent HbA1c above. * BSG was 255 mg/dL upon arrival. No insulin received today. Repeat A1c ordered for tomorrow. Upon admission, BSG was 205 mg/dL. * Will give 20 units of basal x 1. Reassess bolus tomorrow as patient is currently NPO. Novolog will be based on previous admission data. PLAN FOR INPATIENT GLYCEMIC CONTROL: * Hold outpatient oral diabetes medications * Basal insulin * Lantus 20 units SC daily * Bolus insulin * NovoLog per scale ACHS or Q6hrs while NPO * Goal Range: Low 110 mg/dL - High 140 mg/dL * Correction Factor: 15 mg/dL/unit * Nutritional / Prandial insulin per carb ratio of 1 unit per 4 grams CHO consumed
--- NOTE | 2024-03-25 09:30 | Nephrology Progress Note ---
Date of Service March 25, 2024 Assessment & Plan (1) BONILLA (acute kidney injury): Plan: improving stage 2 nonoliguric BONILLA bordering on stage 3 and progressive renal dysfunction over past 6 mos. prior baseline creatinine until september 2023 had been 0.8; then baseline creatinine 0.9 Sep-Nov; in january and February creatinine more in 1.3 range, not long enough to call this CKD but certainly w/ concerning progression. no acidosis on VBG fortunately, though ketonuria noted. no obstruction on imaging. UA w/ concentrated urine notable for glucose, ketones, protein and no bacteria, no blood or other inflammation. 400 mg proteinuria. urine electrolytes c/w volume depletion. no volume OL on XR after volume resuscitation -cont to hold spironolactone, lasix, entresto, jardiance >monitor for euglycemic ketoacidosis on jardiance > though w/ no acidosis on VBG, suspicion lower -defer management of GI sx to primary service and to GI -daily bmp -strict I/O -daily STANDING weight ->>>resumed plasmalyte at 50 mL hourly as he's still npo, not taking much water Admission and Anticipated Discharge Date Admission Date: March 24, 2024 Subjective emesis this am x 1; none ON; still w/ severe N. no abd pain, no sob, no edema. no new/worrisome voiding sx Review of Systems 2 Review of Systems: All systems reviewed & are unremarkable except as noted in Subjective Physical Exam 2 Constitutional: well developed, well nourished, + acute distress (mild distress from N), + ill appearing and cooperative Eyes: EOM intact bilaterally ENMT: Ears: no external ear abnormality Nose: no external nose abnormality Mouth: + dry oral mucous membranes Neck: no nuchal rigidity Respiratory: normal respiratory effort Auscultation: + diminished lung sounds Cardiovascular: Rate/Rhythm: + tachycardic Palpation: + abnormal PMI E xtremities: normal capillary refill; no edema Gastrointestinal (Abdomen): Inspection/Auscultation: normal bowel sounds P ercussion/Palpation: abdomen soft; abdomen nontender Musculoskeletal: Extremities: strength 5/5 throughout Skin: no rashes, warm and dry Psychiatric: Orientation: alert and oriented x 3 Results & Data Vital Signs (Past 12 Hours) Vital Signs Temp Pulse Pulse Resp BP Pulse Ox O2 Del Method 03/25/24 08:23 99 H 03/25/24 07:17 Room Air 03/25/24 04:25 36.5 C 84 20 114/76 97 Room Air 03/25/24 00:04 104 H 03/24/24 23:51 36.7 C 95 H 20 135/86 96 Room Air 03/24/24 22:09 106 H 03/24/24 22:01 Room Air Laboratory Results 03/25/24 07:40 03/25/24 07:40
[2024-03-25] MEDS: PLASMA-LYTE A 1,000 ML IV SCH (09:41)
[2024-03-25] MEDS ORDERED: LANTUS PER UNIT CHARGE SQ SCH (10:39)
--- NOTE | 2024-03-25 13:40 | Gastrointestinal Consultation ---
Date of Consultation March 25, 2024 Assessment & Plan (1) Gastroparesis: (2) Weight loss: (3) Constipation: (4) Nausea & vomiting: Plan -Miralax 17 gm daily. Can titrate dosing pending response. -Gastroparesis diet with small, frequent meals with low fat & low fiber content. -Needs outpatient EGD & colonoscopy with [facility] with extended prep due to gastroparesis & constipation issues with poor prep in the past. -Anti-emetics prn, but if not working consider discontinuation of marijuana. Supervising Physician Co-Signing Physician Notes Agree with CHRISTI Azevedo Interviewed and examined patient and agree with above Abd: Soft, NT, ND Continue current therapy and supportive care Outpatient EGD and Colonoscopy tomorrow History of Present Illness Reason for Consultation: Nausea/Vomiting Attending Physician: Lety Lopez MD History of Present Illness Patient is a 43 yo male with PMH of DM2 with neuropathy and gastroparesis. Patient notes progressive weight loss & GI symptoms over the past 6 months. He n otes significant constipation, nausea, & vomiting episodes. He does use medical marijuana. He notes ongoing weight loss. He is not following a gastroparesis diet. He notes he is only taking 1/2 capful of Miralax. Last colonoscopy in 2013 with [facility] indicated significant retained stool/poor prep. He notes infrequent <1 per week bowel movements. Occasional BRBPR. CT abdomen and pelvis was without acute issues. LFTs unremarkable. T bili 1.0, AST 17, ALT 18, Alk phos 66. HA1C 6.1. H/H 15.5/45.8. Allergies Allergy/AdvReac Type Severity Reaction Status Date / Time Sulfa (Sulfonamide Allergy Intermediate ITCHY/HOT Verified 03/24/24 09:17 Antibiotics) metformin AdvReac Intermediate Diarrhea Verified 03/24/24 09:17 morphine AdvReac Intermediate Nausea Verified 03/24/24 09:17 semaglutide [From Ozempic] AdvReac Intermediate Hallucinati Verified 03/24/24 09:17 ng Home Medications Medication Instructions Recorded Confirmed Type atorvastatin 40 mg tablet 40 mg PO QAM 06/23/21 03/24/24 History pantoprazole 40 mg tablet,delayed 40 mg PO DAILYBB 11/19/23 03/24/24 History release insulin human U-100 NPH-regulr 25 unit (0.25 mL) subcut BID #2 11/24/23 03/24/24 Rx 70-30 mix 100 unit/mL subcutaneous vials susp (Novolin 70/30 U-100 Insulin) benzonatate 100 mg capsule 100 mg PO TID PRN cough #15 caps 02/09/24 03/24/24 Rx dulaglutide 0.75 mg/0.5 mL 0.75 mg subcut WK 02/09/24 03/24/24 History subcutaneous pen injector (Trulicity) ezetimibe 10 mg tablet 10 mg PO QAM 02/09/24 03/24/24 History fenofibrate nanocrystallized 145 145 mg PO QAM 02/09/24 03/24/24 History mg tablet furosemide 20 mg tablet 20 mg PO DAILY 02/09/24 03/24/24 History gabapentin 300 mg capsule 300 mg PO TID 02/09/24 03/24/24 History glipizide 10 mg tablet, extended 10 mg PO DAILYBB 02/09/24 03/24/24 History release 24 hr insulin glargine 100 unit/mL (3 45 unit subcut DAILY 02/09/24 03/24/24 History mL) subcutaneous pen levalbuterol tartrate 45 2 inh inhalation Q6H PRN shortness 02/09/24 03/24/24 Rx mcg/actuation aerosol inhaler of breath #15 grams (Xopenex HFA) metoprolol succinate 50 mg 75 mg PO QAM 02/09/24 03/24/24 History tablet,extended release 24 hr sacubitril 24 mg-valsartan 26 mg 1 tab PO BID 02/09/24 03/24/24 History tablet (Entresto) spironolactone 25 mg tablet 25 mg PO QAM 02/09/24 03/24/24 History rivaroxaban 20 mg tablet (Xarelto) 20 mg PO DAILYBD 03/24/24 03/24/24 History Patient History Medical History Chronic wound HFrEF (heart failure with reduced ejection fraction) Pulmonary emboli (04/2022) Gastroparesis Hyperglycemic crisis in diabetes mellitus DKA (diabetic ketoacidosis) History of kidney stones Open trimalleolar fracture (2020) Dislocation of ankle, right, open (2020) Surgical History History of ankle surgery (2020) right ankle external fixator/I&D History of colonoscopy History of esophagogastroduodenoscopy (EGD) History of tooth extraction History of wisdom tooth extraction S/P knee surgery remove fluid off right knee History of heart surgery (1983) VSD- age 3---no issues since surgery, 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 Aunt Cardiac disorder Other No family history of adverse response to anesthesia Denies family history of Ovarian cancer Prostate cancer Myocardial infarction Breast cancer Colorectal cancer Social History Smoking Status: Never smoker Age Started Using Tobacco: 16; Age Quit Using Tobacco: 26; packs per day: 0.5; Second Hand Exposure: No; Do You Dip or Chew Tobacco: No; Hx Alcohol Use: Yes Alcohol type: wine Hx Substance Use: Yes Last Used Substance: Days (ago) Preferred Language: Urdu Communication Ability: Effective Visual Impairment: No Limitations Hearing Ability: Normal Import Specialist Required: No Beliefs That Will Affect Care: None marital status: Single Current Living Situation: Spouse current occupational status: employed current occupation: [employer] How many Children do You have: 0 Feels Safe at Home: Yes Safety Concerns: Feels Safe At This Time Dental Care, Regularly: Yes Physical Activity Frequency: 3-4 Times per Week Assistive Devices: None Review of Systems Constitutional: no fever Respiratory: no cough and no dyspnea Cardiovascular: no chest pain Gastrointestinal: + abdominal pain Physical Exam Constitutional: well developed Respiratory: normal respiratory effort Cardiovascular: Rate/Rhythm: regular rate Gastrointestinal (Abdomen): normal bowel sounds, soft, nontender, no hepatosplenomegaly Results & Data Vital Signs (Past 12 Hours) Vital Signs Temp Pulse Pulse Resp BP Pulse Ox O2 Del Method 03/25/24 11:48 36.3 C L 86 18 102/68 95 Room Air 03/25/24 08:23 99 H 03/25/24 07:17 Room Air 03/25/24 04:25 36.5 C 84 20 114/76 97 Room Air PG Care Time/CCT Total # of Minutes Spent Total Time Spent with Patient: Total time spent is greater than 50% in coordination of care (as documented) at patient's floor/unit and/or counseling patient: Coding Level of Care Code 24522 IN/OBS CONSULT LVL 4,60M Diagnoses Gastroparesis K31.84 Weight loss R63.4 Constipation K59.00 Nausea & vomiting R11.2
[2024-03-25 13:58] LABS: Appearance Urine Cloudy (Clear); Bacteria Urine Automated None Seen (None Seen); Bilirubin Urine Negative (Negative); Blood Urine Negative (Negative); Color Urine Yellow; Epithelial Cell Urine Auto 0-2 /hpf (0-2); Glucose Urine UA 3+ (Negative); Ketones Urine 1+ (Negative); Leukocyte Esterase Urine Negative (Negative); Nitrite Urine Negative (Negative); Protein Urine 1+ (Negative); RBC Urine Automated 0-2 /hpf (0-2); Specific Gravity Urine 1.027 (1.000-1.030); Uric Acid Crystals Urine Present (None Prsent); Urobilinogen Urine Negative (Negative); WBC Urine Automated 0-5 /hpf (0-5); pH Urine 5.5 (4.5-7.5)
[2024-03-25 15:07] LABS: Adenovirus F 40/41 PCR Not Detected (NotDetected); Astrovirus PCR Not Detected (NotDetected); Campylobacter PCR Not Detected (NotDetected); Cryptosporidium PCR Not Detected (NotDetected); Cyclospora cayetanensis PCR Not Detected (NotDetected); Entamoeba histolytica PCR Not Detected (NotDetected); Enteroaggregative E.coli(EAEC) Not Detected (NotDetected); Enteropathogenic E.coli (EPEC) Not Detected (NotDetected); Enterotoxigenic E.coli (ETEC) Not Detected (NotDetected); Giardia lamblia PCR Not Detected (NotDetected); Norovirus GI/GII PCR Not Detected (NotDetected); Plesiomonas shigelloides PCR Not Detected (NotDetected); Rotavirus A PCR Not Detected (NotDetected); Salmonella PCR Not Detected (NotDetected); Sapovirus PCR Not Detected (NotDetected); Shiga-like Toxin E.coli (STEC) Not Detected (NotDetected); Shigella/Enteroinvasive E.coli Not Detected (NotDetected); Vibrio cholerae PCR Not Detected (NotDetected); Vibrio species PCR Not Detected (NotDetected); Yersinia enterocolitica PCR Not Detected (NotDetected)
--- NOTE | 2024-03-25 16:12 | Hospitalist Progress Note ---
Date of Service March 25, 2024 Assessment & Plan (1) Intractable nausea and vomiting: (2) BONILLA (acute kidney injury): (3) Metabolic acidosis: (4) Lactic acid acidosis: (5) T2DM (type 2 diabetes mellitus): (6) Gastroparesis: (7) HFrEF (heart failure with reduced ejection fraction): (8) Non-ischemic cardiomyopathy: Plan This is a 43-year-old male who has significant past medical history of T2DM, HTN, hypertriglyceridemia, chronic HFrEF, history of pulmonary embolism, GERD, gastroparesis, diabetic autonomic neuropathy, history of alcohol abuse who presents to ED secondary to nausea/vomiting. Gastroparesis Pt does meet SIRS criteria with leukocytosis and tachycardia and lactic acidosis. No apparent source of infection identified. Consult gastroenterology, appreciate rces -miralax daily -small freq meals -outpt EGD and Colonoscopy -antiemetics prn He does use marijuana gummies x 1 year, possibly contributing IV Emend x 1 on admission po ppi PRN antiemetics Continue to monitor Acute Kidney Injury Metabolic Acidosis Cr elevated at 2.51 on admission, baseline of ~1.04 Glucose 255, anion gap of 28, VBG wnl on admission UA with glucose, ketones, proteins Hgba1c of 6.1 Nephrology consulted on admission Appreciate recs T2DM, A1C 7.7 Diabetic neuropathy Diabetic Gastroparesis hold glipizide, Trulicity lantus/novolog per protocol will consult glycemic pharmacy, he does follow [facility] pharmacy in clinic renal dose gabapentin Continue to monitor Chronic HFrEF Non ischemic Cardiomyopathy HLD follows [facility] Cards on GDMT statin, entresto, lasix , aldactone hold GDMT in setting of BONILLA last echo 05/2023 EF 35-39%, diffuse LV hypokinesis resume home statin, ezetimibe Hx of DVT/PE hx of unprovoked dvt/PE x 2, on life long anticoagulation held xarelto due to reported hematemesis Xarelto resumed, hgb stable Hx of Alcohol abuse currently denies use Current Marijuana Gummy use DVT ppx: Xarelto Diet: NPO currently Dispo: Home once medically stable Admission and Anticipated Discharge Date Admission Date: March 24, 2024 Subjective Pt seen while laying in bed. States he still feels nauseated, throwing up. Though better. Review of Systems Review of Systems: All systems reviewed & are unremarkable except as noted in Subjective Physical Exam Physical Exam: General: Alert, oriented Skin: rash on back, closed wound on LLE Psych: Appropriate mood and affect Neuro: No gross deficits HEENT: NC/AT CV: RRR Resp: Breath sounds clear bilaterally, no increased effort of breathing. Abdomen: Soft, nontender, nondistended. Extremities: No edema in lower extremities bilaterally. Results & Data Results & Data Vital Signs (Past 12 Hours) Vital Signs Temp Pulse Pulse Resp BP Pulse Ox O2 Del Method 03/25/24 15:54 03/25/24 15:32 36.6 C 62 20 109/70 94 Room Air 03/25/24 11:48 36.3 C L 86 18 102/68 95 Room Air 03/25/24 08:23 99 H 03/25/24 07:17 Room Air 03/25/24 04:25 36.5 C 84 20 114/76 97 Room Air O2 Del Method 03/25/24 15:54 Room Air 03/25/24 15:32 03/25/24 11:48 03/25/24 08:23 03/25/24 07:17 03/25/24 04:25
[2024-03-25] MEDS ORDERED: LEVALBUTEROL TARTRATE 15 GM HFA.AER.AD INH PRN (17:41)
[2024-03-26] MEDS: PANTOprazole 40 MG TAB PO SCH (05:54)
[2024-03-26 07:31] LABS: Hematocrit (blood only) 46.2 % (42.0-52.0); Hemoglobin 15.6 g/dl (14.0-18.0); Mean Corpuscular Hemoglobin 29.1 pg (25.0-34.0); Mean Corpuscular Hgb Conc 33.8 g/dL (32.0-36.0); Mean Platelet Volume 11.2 fL (9.4-12.4); Platelet Count 171 K/uL (130-400); RDW Coefficient of Variation 12.8 % (11.5-14.5); RDW Standard Deviation 39.6 fL (36.4-46.3); Red Blood Count 5.37 M/uL (4.70-6.10); White Blood Count 6.92 K/ul (4.8-10.8)
[2024-03-26 07:44] LABS: Albumin Globulin Ratio 1.8 (0.9-2); Albumin Level 4.5 gm/dl (3.4-5.0); BUN Creatinine Ratio 22.1 (10-20); Bilirubin,Total 1.2 mg/dl (0.2-1.0); Calcium 8.9 mg/dl (8.6-10.3); Est GFR (African American) 91.1 ml/min; Est GFR (Non-African American) 78.6 ml/min; Globulin 2.5 gm/dl (2.5-4.0); Magnesium 2.4 mg/dl (1.7-2.4); Phosphorus 2.5 mg/dl (2.5-4.9); Potassium 3.5 mmol/L (3.5-5.1)
[2024-03-26] MEDS: EZETIMIBE 10 MG TAB PO SCH (08:18)
[2024-03-26] MEDS: FENOFIBRATE NANOCRYSTALLIZED 145 MG TABLET PO SCH (08:18)
[2024-03-26] MEDS: ATORVASTATIN 40 MG TAB PO SCH (08:18)
--- NOTE | 2024-03-26 12:54 | Hospitalist Progress Note ---
Date of Service March 26, 2024 Assessment & Plan (1) Intractable nausea and vomiting: (2) BONILLA (acute kidney injury): (3) Metabolic acidosis: (4) Lactic acid acidosis: (5) T2DM (type 2 diabetes mellitus): (6) Gastroparesis: (7) HFrEF (heart failure with reduced ejection fraction): (8) Non-ischemic cardiomyopathy: Plan This is a 43-year-old male who has significant past medical history of T2DM, HTN, hypertriglyceridemia, chronic HFrEF, history of pulmonary embolism, GERD, gastroparesis, diabetic autonomic neuropathy, history of alcohol abuse who presents to ED secondary to nausea/vomiting. Gastroparesis Pt does meet SIRS criteria with leukocytosis and tachycardia and lactic acidosis. No apparent source of infection identified. Consult gastroenterology, appreciate rces -miralax daily -small freq meals -outpt EGD and Colonoscopy -antiemetics prn He does use marijuana gummies x 1 year, possibly contributing IV Emend x 1 on admission po ppi PRN antiemetics Continue to monitor improving, advancing diet as tolerated Acute Kidney Injury Metabolic Acidosis Cr elevated at 2.51 on admission, baseline of ~1.04 Glucose 255, anion gap of 28, VBG wnl on admission UA with glucose, ketones, proteins Hgba1c of 6.1 Nephrology consulted on admission Appreciate recs T2DM, A1C 7.7 Diabetic neuropathy Diabetic Gastroparesis hold glipizide, Trulicity lantus/novolog per protocol will consult glycemic pharmacy, he does follow [facility] in clinic renal dose gabapentin Continue to monitor Chronic HFrEF Non ischemic Cardiomyopathy HLD follows [facility] Cards on GDMT statin, entresto, lasix , aldactone hold GDMT in setting of BONILLA last echo 05/2023 EF 35-39%, diffuse LV hypokinesis resume home statin, ezetimibe Hx of DVT/PE hx of unprovoked dvt/PE x 2, on life long anticoagulation held xarelto due to reported hematemesis Xarelto resumed, hgb stable Hx of Alcohol abuse currently denies use Current Marijuana Gummy use DVT ppx: Xarelto Diet:on clears currently Dispo: Home once medically stable Admission and Anticipated Discharge Date Admission Date: March 24, 2024 Subjective Pt seen while sitting up in bed. States nausea seems to be gone, diet advanced to clears and tolerating Review of Systems Review of Systems: All systems reviewed & are unremarkable except as noted in Subjective Physical Exam Physical Exam: General: Alert, oriented Skin: rash on back, closed wound on LLE Psych: Appropriate mood and affect Neuro: No gross deficits HEENT: NC/AT CV: RRR Resp: Breath sounds clear bilaterally, no increased effort of breathing. Abdomen: Soft, nontender, nondistended. Extremities: No edema in lower extremities bilaterally. Results & Data Results & Data Vital Signs (Past 12 Hours) Vital Signs Temp Pulse Pulse Resp BP Pulse Ox O2 Del Method 03/26/24 11:29 37.0 C 78 18 148/90 H 95 Room Air 03/26/24 07:36 36.5 C 75 18 132/83 96 Room Air 03/26/24 07:30 70 03/26/24 03:48 36.3 C L 75 18 114/77 96 Room Air
[2024-03-26] MEDS: LANTUS PER UNIT CHARGE SC SCH (13:31)
[2024-03-26] MEDS: RIVAROXABAN 20 MG TAB PO SCH (16:49)
--- NOTE | 2024-03-26 16:57 | Nephrology Progress Note ---
Date of Service March 26, 2024 Assessment & Plan (1) BONILLA (acute kidney injury): Plan: Resolved stage 2 nonoliguric BONILLA bordering on stage 3 and progressive renal dysfunction over past 6 mos. prior baseline creatinine until september 2023 had been 0.8; then baseline creatinine 0.9 Sep-Nov; in january and February creatinine more in 1.3 range, not long enough to call this CKD but certainly w/ concerning progression. no acidosis on VBG fortunately, though ketonuria noted. no obstruction on imaging. UA w/ concentrated urine notable for glucose, ketones, protein and no bacteria, no blood or other inflammation. 400 mg proteinuria. urine electrolytes c/w volume depletion. no volume OL on XR after volume resuscitation -cont to hold spironolactone, lasix, entresto, jardiance -defer management of GI sx to primary service and to GI -daily bmp -strict I/O -daily STANDING weight; these have not been obtained to date; did review with team ->>>stopped plasmalyte at 50 mL hourly since he's on liquid diet Will sign off Nephrology discharge recommendations If renal function remains stable tomorrow, may resume Lasix and spironolactone; else wait until renal function stabilized before resuming those 2 diuretics Resume Entresto, then Jardiance at least 2 weeks apart after hospital discharge under supervision of PCP and/or cardiology and/or nephrology Recommend basic metabolic panel to be drawn at PCP follow-up appointment -Recommend hospital discharge appointment with nephrology any physician provider diana alexander 2 to 4 weeks after discharge with nephro nurse to order basic metabolic panel, urinalysis with microscopy, urine electrolytes, protein to creatinine ratio, ACR, all to be done 48 hours to 72 hours prior to appointment Care coordinated w/ Dr Lopez Admission and Anticipated Discharge Date Admission Date: March 24, 2024 Subjective tells me he's worn out, feels worse and worse; noting more exertional dyspnea not acutely but progressive this spring. N a bit better; tolerating liquid diet. overall discouraged though Review of Systems 2 Review of Systems: All systems reviewed & are unremarkable except as noted in Subjective Physical Exam 2 Constitutional: well developed, well nourished and cooperative; no acute distress Eyes: EOM intact bilaterally ENMT: Ears: no external ear abnormality Nose: no external nose abnormality Mouth: + dry oral mucous membranes Neck: no nuchal rigidity Respiratory: normal respiratory effort Auscultation: + diminished lung sounds Cardiovascular: Rate/Rhythm: + tachycardic Palpation: + abnormal PMI E xtremities: normal capillary refill; no edema Gastrointestinal (Abdomen): Inspection/Auscultation: normal bowel sounds P ercussion/Palpation: abdomen soft; abdomen nontender Musculoskeletal: Extremities: strength 5/5 throughout Skin: no rashes, warm and dry Psychiatric: Orientation: alert and oriented x 3 Results & Data Vital Signs (Past 12 Hours) Vital Signs Temp Pulse Pulse Resp BP Pulse Ox O2 Del Method 03/26/24 15:27 36.9 C 76 18 112/72 94 Room Air 03/26/24 11:29 37.0 C 78 18 148/90 H 95 Room Air 03/26/24 07:36 36.5 C 75 18 132/83 96 Room Air 03/26/24 07:30 70 Laboratory Results 03/26/24 07:08 03/26/24 07:08
--- NOTE | 2024-03-26 21:57 | Electrocardiogram Report ---
Test Reason : Blood Pressure : / mmHG Vent. Rate : 126 BPM Atrial Rate : 126 BPM P-R Int : 166 ms QRS Dur : 146 ms QT Int : 328 ms P-R-T Axes : 080 112 026 degrees QTc Int : 475 ms Atrial flutter with 2 to 1 block Right bundle branch block Inferior infarct (cited on or before 18-NOV-2023) Anterolateral infarct (cited on or before 09-FEB-2024) Abnormal ECG When compared with ECG of 09-FEB-2024 18:45, Vent. rate has increased BY 53 BPM QRS axis Shifted right Questionable change in initial forces of Anteroseptal leads Inverted T waves have replaced nonspecific T wave abnormality in Anterolateral leads Atrial flutter has replaced Sinus rhythm Confirmed by León Castelan ([id number]) on 03/26/2024 9:57:26 PM Referred By: REFERRED SELF Confirmed By:León Castelan
--- NOTE | 2024-03-26 22:06 | Electrocardiogram Report ---
Test Reason : Blood Pressure : / mmHG Vent. Rate : 119 BPM Atrial Rate : 119 BPM P-R Int : 164 ms QRS Dur : 154 ms QT Int : 358 ms P-R-T Axes : 092 112 031 degrees QTc Int : 503 ms Suspect arm lead reversal, interpretation assumes no reversal Atrial flutter Right bundle branch block Left posterior fascicular block Bifascicular block Inferior infarct (cited on or before 18-NOV-2023) Abnormal ECG When compared with ECG of 24-MAR-2024 07:31, Criteria for Anterolateral infarct are no longer Present Confirmed by León Castelan ([id number]) on 03/26/2024 10:06:18 PM Referred By: REFERRED SELF Confirmed By:León Castelan
[2024-03-27 07:54] LABS: Hematocrit (blood only) 42.9 % (42.0-52.0); Hemoglobin 14.8 g/dl (14.0-18.0); Mean Corpuscular Hemoglobin 29.2 pg (25.0-34.0); Mean Corpuscular Hgb Conc 34.5 g/dL (32.0-36.0); Mean Corpuscular Volume 84.8 fL (80.0-100.0); Mean Platelet Volume 10.9 fL (9.4-12.4); Platelet Count 147 K/uL (130-400); RDW Coefficient of Variation 12.4 % (11.5-14.5); Red Blood Count 5.06 M/uL (4.70-6.10)
[2024-03-27 08:01] LABS: Albumin Globulin Ratio 1.8 (0.9-2); Albumin Level 4.4 gm/dl (3.4-5.0); BUN Creatinine Ratio 18.3 (10-20); Bilirubin,Total 1.3 mg/dl (0.2-1.0); Calcium 9.1 mg/dl (8.6-10.3); Creatinine Clr Calc Pharmacy 94.1 ml/min; Est GFR (African American) 95.2 ml/min; Est GFR (Non-African American) 82.1 ml/min; Globulin 2.5 gm/dl (2.5-4.0); Magnesium 2.3 mg/dl (1.7-2.4); Phosphorus 3.1 mg/dl (2.5-4.9); Potassium 3.8 mmol/L (3.5-5.1); Total Protein 6.9 gm/dl (6.0-8.3)
--- NOTE | 2024-03-27 08:30 | Pharmacy Report ---
Pharmacy Glycemic Short Note 2 - Date of Service March 27, 2024 - Glycemic Short BSG Results (Last 24 hours): 03/26/24 03/26/24 03/26/24 11:53 16:47 16:48 Glucose POC Glucose 140 H 63 L* 63 L* 03/26/24 03/27/24 03/27/24 20:38 07:14 08:07 Glucose 120 H POC Glucose 145 H 132 H OUTPATIENT ANTIDIABETIC REGIMEN: * Lantus 45 units SC daily * Novolin 70/30: 25 units SC BID * Glipizide 10 mg PO daily * Trulicity 0.75 mg SC on Fridays HbA1c 6.1% (03/25/24) ASSESSMENT: 03/27: * Blood sugars tightly controlled yesterday w/ low of 63 mg/dL at dinnertime * Will loosen Novolog parameters today w/ ~20% reduction in basal insulin * Diet advanced yesterday 03/25: * Man received 27 units of insulin following admission yesterday, 20 of which were basal. BSGs were 205-160-158 mg/dL. * Fasting BSG was 145 mg/dL this AM. Patient remains NPO for N/V and gastroparesis. Will continue with current basal dose. Will need increased once patient starts eating. Could also consider NPH when patient starts eating. * No change to Novolog for now. 03/24: * 43 yo M admitted on 03/24/24 secondary to gastroparesis. Pharmacy has been consulted to assist with inpatient glycemic management. Patient is a Type 2 diabetic as an outpatient. Please refer to outpatient regimen and most recent HbA1c above. * BSG was 255 mg/dL upon arrival. No insulin received today. Repeat A1c ordered for tomorrow. Upon admission, BSG was 205 mg/dL. * Will give 20 units of basal x 1. Reassess bolus tomorrow as patient is currently NPO. Novolog will be based on previous admission data. PLAN FOR INPATIENT GLYCEMIC CONTROL: * Hold outpatient oral diabetes medications * Basal insulin * Lantus 12 units SC daily (20% reduction) * Bolus insulin * NovoLog per scale ACHS or Q6hrs while NPO * Goal Range: Low 110 mg/dL - High 140 mg/dL * Correction Factor: 20 mg/dL/unit * Nutritional / Prandial insulin per carb ratio of 1 unit per 7 grams CHO consumed
[2024-03-27] MEDS: LANTUS PER UNIT CHARGE SC SCH (09:23)
--- NOTE | 2024-03-27 17:06 | Hospitalist Progress Note ---
Date of Service March 27, 2024 Assessment & Plan (1) Intractable nausea and vomiting: (2) BONILLA (acute kidney injury): (3) Metabolic acidosis: (4) Lactic acid acidosis: (5) T2DM (type 2 diabetes mellitus): (6) Gastroparesis: (7) HFrEF (heart failure with reduced ejection fraction): (8) Non-ischemic cardiomyopathy: Plan This is a 43-year-old male who has significant past medical history of T2DM, HTN, hypertriglyceridemia, chronic HFrEF, history of pulmonary embolism, GERD, gastroparesis, diabetic autonomic neuropathy, history of alcohol abuse who presents to ED secondary to nausea/vomiting. Gastroparesis Pt does meet SIRS criteria with leukocytosis and tachycardia and lactic acidosis. No apparent source of infection identified. Consult gastroenterology, appreciate rces -miralax daily -small freq meals -outpt EGD and Colonoscopy -antiemetics prn He does use marijuana gummies x 1 year, possibly contributing IV Emend x 1 on admission po ppi PRN antiemetics Continue to monitor improving, advancing diet as tolerated Very frustrated with his symptoms as it has not been improving for the last 10 years Tolerating only clears and any solid food will make the symptoms worse Reassured-will try to coordinate care with outpatient spring fitter Acute Kidney Injury Metabolic Acidosis Cr elevated at 2.51 on admission, baseline of ~1.04 Glucose 255, anion gap of 28, VBG wnl on admission UA with glucose, ketones, proteins Hgba1c of 6.1 Nephrology consulted on admission Kidney functions remained stable and no electrolytes abnormalities T2DM, A1C 7.7 Diabetic neuropathy Diabetic Gastroparesis hold glipizide, Trulicity lantus/novolog per protocol will consult glycemic pharmacy, he does follow [facility] in clinic renal dose gabapentin Continue to monitor Chronic HFrEF Non ischemic Cardiomyopathy HLD follows [facility] Cards on GDMT statin, entresto, lasix , aldactone hold GDMT in setting of BONILLA last echo 05/2023 EF 35-39%, diffuse LV hypokinesis resume home statin, ezetimibe Does not have any acute cardiac symptoms Hx of DVT/PE hx of unprovoked dvt/PE x 2, on life long anticoagulation held xarelto due to reported hematemesis Xarelto resumed, hgb stable Hx of Alcohol abuse currently denies use Current Marijuana Gummy use DVT ppx: Xarelto Diet:on clears currently Dispo: Home once medically stable Admission and Anticipated Discharge Date Admission Date: March 24, 2024 Subjective 03/27/2024 The patient was seen and examined in medical telemetry unit He complains today of ongoing nausea and has been tolerating any diet except clears He is very much frustrated with his life Has been losing weight but denies any acute distress Review of Systems Review of Systems: All systems reviewed and are unremarkable except as noted below Physical Exam Physical Exam: Lying in bed without any acute distress Constitutional: well developed and well nourished; not ill appearing Eyes: PERRL, conjunctivae normal, anicteric sclerae ENMT: external ear and nose normal, oropharynx normal Neck: trachea midline, no thyromegaly Respiratory: no respiratory distress Auscultation: lungs clear to auscultation bilaterally Cardiovascular: Rate/Rhythm: regular rate and regular rhythm; not tachycardic Heart Sounds: normal S1 and normal S2; no murmur Extremities: no edema Gastrointestinal (Abdomen): Inspection/Auscultation: normal bowel sounds; abdomen not distended Percussion/Palpation: abdomen soft; abdomen nontender Musculoskeletal: No acute arthritis involving any of the joints Neurologic: normal touch/pain/proprioception and moves all extremities; no focal motor deficits Psychiatric: Mood: + depressed mood Lymphatic: no cervical or axillary lymphadenopathy Results & Data Results & Data Vital Signs (Past 12 Hours) Vital Signs Temp Pulse Pulse Resp BP Pulse Ox O2 Del Method 03/27/24 15:47 37.4 C 71 17 134/83 95 Room Air 03/27/24 15:46 70 03/27/24 07:42 36.7 C 67 18 130/85 94 Room Air 03/27/24 07:27 65 Laboratory Results Short CBC 03/27/24 Range/Units 07:14 WBC 4.80 (4.8-10.8) K/ul Hgb 14.8 (14.0-18.0) g/dl Hct 42.9 (42.0-52.0) % Plt Count 147 (130-400) K/uL BMP 03/27/24 07:14 Sodium 139 Potassium 3.8 Chloride 100 Carbon Dioxide 32 BUN 20 Creatinine 1.09 Glucose 120 H Calcium 9.1 Liver Function 03/27/24 Range/Units 07:14 Total Bilirubin 1.3 H (0.2-1.0) mg/dl AST 17 (13-39) U/L ALT 16 (7-52) U/L Alkaline Phosphatase 63 (34-104) U/L Albumin 4.4 (3.4-5.0) gm/dl Medications Administered Current Inpatient Medications Acetaminophen (Acetaminophen 325 Mg Tab) 650 mg PO Q4H PRN PRN Reason: Pain or Fever Stop: 04/23/24 11:35 Al Hydrox/Mg Hydrox/Simethicone (Aluminum/Magnesium/Simeth (Maalox Max) 30 Ml Udc) 30 ml PO Q6H PRN PRN Reason: dyspepsia Stop: 04/23/24 14:17 Atorvastatin Calcium (Atorvastatin 40 Mg Tab) 40 mg PO QAM [facility] Stop: 04/25/24 08:59 Last Admin: 03/27/24 09:16 Dose: 40 mg Dextrose (Dextrose 50% 50 Ml Syringe) 25 - 50 ml IV UD PRN; Protocol PRN Reason: Hypoglycemia Protocol Stop: 04/23/24 11:35 Ezetimibe ([facility] 10 Mg Tab) [facility] Stop: 04/25/24 08:59 Last Admin: 03/27/24 09:16 Dose: 10 mg Fenofibrate (Fenofibrate Nanocrystallized 145 Mg Tablet) 145 mg PO QAM [facility] Stop: 04/25/24 08:59 Last Admin: 03/27/24 09:16 Dose: 145 mg Gabapentin (Gabapentin 300 Mg Cap) 300 mg PO BID [facility] Stop: 04/23/24 20:59 Last Admin: 03/27/24 09:17 Dose: 300 mg Glucagon (Glucagon For Inj 1 Mg Vial) 1 mg SQ UD PRN; Protocol PRN Reason: Hypoglycemia Protocol Stop: 04/23/24 11:35 Glucose (Glucose 40% Gel 15 Gm Tube) 15 - 30 gm PO UD PRN; Protocol PRN Reason: Hypoglycemia Protocol Stop: 04/23/24 11:35 Glucose (Glucose 10 Tab/Tube) 4 - 8 tab PO UD PRN; Protocol PRN Reason: Hypoglycemia Treatment Stop: 04/23/24 11:35 Hydralazine HCl (Hydralazine Hcl 20 Mg/Ml Vial) 5 mg IV Q6H PRN PRN Reason: SBP > 170 Stop: 04/23/24 11:35 Promethazine HCl 12.5 mg/ (Sodium Chloride) 50.5 mls @ 202 mls/hr IV Q6H PRN PRN Reason: Nausea And Vomiting Stop: 04/23/24 11:35 Last Infusion: 03/25/24 08:39 Dose: Infused Insulin Aspart (Insulin Aspart Per Unit Charge) 0 units SC ACHS [facility]; Protocol Stop: 04/23/24 11:59 Last Admin: 03/27/24 12:54 Dose: Not Given Insulin Glargine (Lantus Per Unit Charge) 12 units SC DAILY [facility]; Protocol Stop: 04/26/24 08:59 Last Admin: 03/27/24 09:23 Dose: 12 units Levalbuterol HCl (Levalbuterol Tartrate 15 Gm Hfa.Aer.Ad) 2 puffs INH Q6H PRN PRN Reason: shortness of breath Stop: 04/24/24 17:40 Metoprolol Succinate (Metoprolol Succ 25mg Ext Rel Tab) 75 mg PO QAM [facility] Stop: 04/24/24 08:59 Last Admin: 03/27/24 09:16 Dose: 75 mg Miscellaneous (Carbohydrates For Hypoglycemia ) 15 - 30 gm PO UD PRN PRN Reason: Hypoglycemia Protocol Stop: 04/23/24 11:35 Miscellaneous Information (Pharmacy Glycemic Mgmt Consult) 1 each N/A UD PRN PRN Reason: Consult Stop: 04/23/24 11:35 Ondansetron HCl (Ondansetron Inj 2 Mg/Ml 2 Ml Vial) 4 mg IV Q6H PRN PRN Reason: Nausea Stop: 04/23/24 11:35 Last Admin: 03/25/24 05:45 Dose: 4 mg Pantoprazole Sodium (Pantoprazole 40 Mg Tab) 40 mg PO DAILYBB [facility] Stop: 04/25/24 06:29 Last Admin: 03/27/24 06:01 Dose: 40 mg Polyethylene Glycol (Polyethylene (Miralax) 17 Gm Pack) 17 gm PO DAILY PRN PRN Reason: Constipation Stop: 04/23/24 11:35 Polyethylene Glycol (Polyethylene (Miralax) 17 Gm Pack) 17 gm PO DAILY [facility] Stop: 04/23/24 12:14 Last Admin: 03/27/24 09:23 Dose: 17 gm Rivaroxaban (Rivaroxaban 20 Mg Tab) 20 mg PO DAILYBD [facility] Stop: 04/25/24 15:29 Last Admin: 03/26/24 16:49 Dose: 20 mg
[2024-03-28] MEDS: POTASSIUM CHLORIDE CRTAB 20 MEQ TABCR PO STA ×2 (03:34→05:42)
[2024-03-28] MEDS: METOPROLOL SUCC 25MG EXT REL TAB PO STA (03:34)
[2024-03-28 04:39] LABS: Hematocrit (blood only) 40.8 % (42.0-52.0); Hemoglobin 14.1 g/dl (14.0-18.0); Mean Corpuscular Hgb Conc 34.6 g/dL (32.0-36.0); Mean Corpuscular Volume 83.8 fL (80.0-100.0); Platelet Count 145 K/uL (130-400); RDW Coefficient of Variation 12.1 % (11.5-14.5); RDW Standard Deviation 36.7 fL (36.4-46.3); Red Blood Count 4.87 M/uL (4.70-6.10); White Blood Count 5.57 K/ul (4.8-10.8)
[2024-03-28 04:54] LABS: Albumin Globulin Ratio 1.9 (0.9-2); Albumin Level 4.1 gm/dl (3.4-5.0); Bilirubin,Total 1.1 mg/dl (0.2-1.0); Creatinine Clr Calc Pharmacy 115.3 ml/min; Est GFR (African American) 120.5 ml/min; Globulin 2.2 gm/dl (2.5-4.0); Potassium 3.5 mmol/L (3.5-5.1); Total Protein 6.3 gm/dl (6.0-8.3)
[2024-03-28] MEDS: LANTUS PER UNIT CHARGE SC SCH (08:55)
--- NOTE | 2024-03-28 12:22 | Hospitalist Progress Note ---
Date of Service March 28, 2024 Assessment & Plan (1) Intractable nausea and vomiting: (2) BONILLA (acute kidney injury): (3) Metabolic acidosis: (4) Lactic acid acidosis: (5) T2DM (type 2 diabetes mellitus): (6) Gastroparesis: (7) HFrEF (heart failure with reduced ejection fraction): (8) Non-ischemic cardiomyopathy: (9) Malnutrition: Plan This is a 43-year-old male who has significant past medical history of T2DM, HTN, hypertriglyceridemia, chronic HFrEF, history of pulmonary embolism, GERD, gastroparesis, diabetic autonomic neuropathy, history of alcohol abuse who presents to ED secondary to nausea/vomiting. Gastroparesis Pt does meet SIRS criteria with leukocytosis and tachycardia and lactic acidosis. No apparent source of infection identified. Consult gastroenterology, appreciate rces -miralax daily -small freq meals -outpt EGD and Colonoscopy -antiemetics prn He does use marijuana gummies x 1 year, possibly contributing IV Emend x 1 on admission po ppi PRN antiemetics Continue to monitor improving, advancing diet as tolerated Very frustrated with his symptoms as it has not been improving for the last 10 years Tolerating only clears and any solid food will make the symptoms worse Reassured-will try to coordinate care with outpatient portrait studio photographer Will try Phenergan in smaller doses ASC to decrease nausea Will try to hydrate him with multivitamin infusion Advised to try small amount of food at 1 time and take it multiple times to avoid nausea and vomiting Will definitely arrange for outpatient GI on discharge Malnutrition Has been losing weight for the last few years Secondary to not being able to eat and drink reasonably Acute Kidney Injury Metabolic Acidosis Cr elevated at 2.51 on admission, baseline of ~1.04 Glucose 255, anion gap of 28, VBG wnl on admission UA with glucose, ketones, proteins Hgba1c of 6.1 Nephrology consulted on admission Kidney functions remained stable and no electrolytes abnormalities T2DM, A1C 7.7 Diabetic neuropathy Diabetic Gastroparesis hold glipizide, Trulicity lantus/novolog per protocol will consult glycemic pharmacy, he does follow [facility] in clinic renal dose gabapentin Continue to monitor Chronic HFrEF Non ischemic Cardiomyopathy HLD follows [facility] Cards on GDMT statin, entresto, lasix , aldactone hold GDMT in setting of BONILLA last echo 05/2023 EF 35-39%, diffuse LV hypokinesis resume home statin, ezetimibe Does not have any acute cardiac symptoms Hx of DVT/PE hx of unprovoked dvt/PE x 2, on life long anticoagulation held xarelto due to reported hematemesis Xarelto resumed, hgb stable Hx of Alcohol abuse currently denies use Current Marijuana Gummy use DVT ppx: Xarelto Diet:on clears currently Dispo: Home once medically stable Admission and Anticipated Discharge Date Admission Date: March 24, 2024 Subjective 03/27/2024 The patient was seen and examined in medical telemetry unit He complains today of ongoing nausea and has been tolerating any diet except clears He is very much frustrated with his life Has been losing weight but denies any acute distress 03/28/2024 The patient was seen and examined He remains nauseous and has been tolerating liquids only Remains frustrated Review of Systems Review of Systems: All systems reviewed and are unremarkable except as noted below Physical Exam Physical Exam: Lying in bed without any acute distress Constitutional: well developed and well nourished; not ill appearing Eyes: PERRL, conjunctivae normal, anicteric sclerae ENMT: external ear and nose normal, oropharynx normal Neck: trachea midline, no thyromegaly Respiratory: no respiratory distress Auscultation: lungs clear to auscultation bilaterally Cardiovascular: Rate/Rhythm: regular rate and regular rhythm; not tachycardic Heart Sounds: normal S1 and normal S2; no murmur Extremities: no edema Gastrointestinal (Abdomen): Inspection/Auscultation: normal bowel sounds; abdomen not distended Percussion/Palpation: abdomen soft; abdomen nontender Neurologic: normal touch/pain/proprioception and moves all extremities; no focal motor deficits Psychiatric: Mood: + depressed mood Lymphatic: no cervical or axillary lymphadenopathy Results & Data Results & Data Vital Signs (Past 12 Hours) Vital Signs Temp Pulse Pulse Resp BP Pulse Ox O2 Del Method 03/28/24 11:21 36.9 C 77 18 140/83 96 Room Air 03/28/24 07:59 37.2 C 73 16 132/83 97 Room Air 03/28/24 07:28 77 03/28/24 03:33 36.7 C 81 18 136/81 96 Room Air Laboratory Results Short CBC 03/28/24 Range/Units 04:22 WBC 5.57 (4.8-10.8) K/ul Hgb 14.1 (14.0-18.0) g/dl Hct 40.8 L (42.0-52.0) % Plt Count 145 (130-400) K/uL BMP 03/28/24 04:22 Sodium 138 Potassium 3.5 Chloride 104 Carbon Dioxide 26 BUN 16 Creatinine 0.89 Glucose 108 H Calcium 9.0 Liver Function 03/28/24 Range/Units 04:22 Total Bilirubin 1.1 H (0.2-1.0) mg/dl AST 15 (13-39) U/L ALT 14 (7-52) U/L Alkaline Phosphatase 61 (34-104) U/L Albumin 4.1 (3.4-5.0) gm/dl Medications Administered Current Inpatient Medications Acetaminophen (Acetaminophen 325 Mg Tab) 650 mg PO Q4H PRN PRN Reason: Pain or Fever Stop: 04/23/24 11:35 Al Hydrox/Mg Hydrox/Simethicone (Aluminum/Magnesium/Simeth (Maalox Max) 30 Ml Udc) 30 ml PO Q6H PRN PRN Reason: dyspepsia Stop: 04/23/24 14:17 Atorvastatin Calcium (Atorvastatin 40 Mg Tab) 40 mg PO QAM [facility] Stop: 04/25/24 08:59 Last Admin: 03/28/24 08:15 Dose: 40 mg Dextrose (Dextrose 50% 50 Ml Syringe) 25 - 50 ml IV UD PRN; Protocol PRN Reason: Hypoglycemia Protocol Stop: 04/23/24 11:35 Ezetimibe (Ezetimibe 10 Mg Tab) 10 mg PO QAM [facility] Stop: 04/25/24 08:59 Last Admin: 03/28/24 08:15 Dose: 10 mg Fenofibrate (Fenofibrate Nanocrystallized 145 Mg Tablet) 145 mg PO QAM [facility] Stop: 04/25/24 08:59 Last Admin: 03/28/24 08:15 Dose: 145 mg Gabapentin (Gabapentin 300 Mg Cap) 300 mg PO BID [facility] Stop: 04/23/24 20:59 Last Admin: 03/28/24 08:15 Dose: 300 mg Glucagon (Glucagon For Inj 1 Mg Vial) 1 mg SQ UD PRN; Protocol PRN Reason: Hypoglycemia Protocol Stop: 04/23/24 11:35 Glucose (Glucose 40% Gel 15 Gm Tube) 15 - 30 gm PO UD PRN; Protocol PRN Reason: Hypoglycemia Protocol Stop: 04/23/24 11:35 Glucose (Glucose 10 Tab/Tube) 4 - 8 tab PO UD PRN; Protocol PRN Reason: Hypoglycemia Treatment Stop: 04/23/24 11:35 Hydralazine HCl (Hydralazine Hcl 20 Mg/Ml Vial) 5 mg IV Q6H PRN PRN Reason: SBP > 170 Stop: 04/23/24 11:35 Promethazine HCl 12.5 mg/ (Sodium Chloride) 50.5 mls @ 202 mls/hr IV Q6H PRN PRN Reason: Nausea And Vomiting Stop: 04/23/24 11:35 Last Infusion: 03/25/24 08:39 Dose: Infused Multivitamins 10 ml/ Thiamine HCl 100 mg/ Folic Acid 1 mg/Sodium Chloride 1,011.2 mls @ 100 mls/hr IV .Q10H7M ONE Stop: 03/28/24 22:51 Last Admin: 03/28/24 13:09 Dose: 100 mls/hr Insulin Aspart (Insulin Aspart Per Unit Charge) 0 units SC ACHS [facility]; Protocol Stop: 04/23/24 11:59 Last Admin: 03/28/24 13:03 Dose: 4 units Insulin Glargine (Lantus Per Unit Charge) 10 units SC DAILY [facility]; Protocol Stop: 04/26/24 08:59 Last Admin: 03/28/24 08:55 Dose: 10 units Levalbuterol HCl (Levalbuterol Tartrate 15 Gm Hfa.Aer.Ad) 2 puffs INH Q6H PRN PRN Reason: shortness of breath Stop: 04/24/24 17:40 Metoprolol Succinate (Metoprolol Succ 25mg Ext Rel Tab) 75 mg PO QAM [facility] Stop: 04/28/24 08:59 Miscellaneous (Carbohydrates For Hypoglycemia ) 15 - 30 gm PO UD PRN PRN Reason: Hypoglycemia Protocol Stop: 04/23/24 11:35 Miscellaneous Information (Pharmacy Glycemic Mgmt Consult) 1 each N/A UD PRN PRN Reason: Consult Stop: 04/23/24 11:35 Ondansetron HCl (Ondansetron Inj 2 Mg/Ml 2 Ml Vial) 4 mg IV Q6H PRN PRN Reason: Nausea Stop: 04/23/24 11:35 Last Admin: 03/25/24 05:45 Dose: 4 mg Pantoprazole Sodium (Pantoprazole 40 Mg Tab) 40 mg PO DAILYBB [facility] Stop: 04/25/24 06:29 Last Admin: 03/28/24 05:42 Dose: 40 mg Polyethylene Glycol (Polyethylene (Miralax) 17 Gm Pack) 17 gm PO DAILY PRN PRN Reason: Constipation Stop: 04/23/24 11:35 Polyethylene Glycol (Polyethylene (Miralax) 17 Gm Pack) 17 gm PO DAILY [facility] Stop: 04/23/24 12:14 Last Admin: 03/28/24 08:15 Dose: Not Given Promethazine HCl (Promethazine Hcl 12.5 Mg/10 Ml Udp) 6.25 mg PO AC [facility] Stop: 04/27/24 16:29 Rivaroxaban (Rivaroxaban 20 Mg Tab) 20 mg PO DAILYBD [facility] Stop: 04/25/24 15:29 Last Admin: 03/27/24 18:26 Dose: 20 mg
[2024-03-28] MEDS: MULTI-VITAMIN INFUSION 10 ML, THIAMINE HCL 100 MG, FOLIC ACID 1 MG in SODIUM CHLORIDE 0... IV ONE (13:09)
[2024-03-28] MEDS: PROMETHAZINE HCL SYRUP 6.25 MG/5 ML PO SCH (16:05)
[2024-03-28] MEDS ORDERED: PROMETHAZINE HCL 12.5 MG/10 ML UDP PO SCH (16:30)
[2024-03-28] MEDS: ACETAMINOPHEN 325 MG TAB PO PRN (20:13)
[2024-03-29] MEDS: METOPROLOL SUCC 25MG EXT REL TAB PO SCH (07:56)
--- NOTE | 2024-03-29 12:55 | Pharmacy Report ---
Pharmacy Glycemic Short Note 2 - Date of Service March 29, 2024 - Glycemic Short BSG Results (Last 24 hours): 03/28/24 03/28/24 03/29/24 17:03 20:27 08:03 POC Glucose 74 89 111 H 03/29/24 12:21 POC Glucose 96 OUTPATIENT ANTIDIABETIC REGIMEN: * Lantus 45 units SC daily * Novolin 70/30: 25 units SC BID * Glipizide 10 mg PO daily * Trulicity 0.75 mg SC on Fridays HbA1c 6.1% (03/25/24) ASSESSMENT: 03/29: * BSGs 054-135-35-80 mg/dL yesterday * Fasting 111 mg/dL this AM, continue 10 units of lantus qAM * Lunch BSG continues to be below goal, will loosen carb ratio today 03/27: * Blood sugars tightly controlled yesterday w/ low of 63 mg/dL at dinnertime * Will loosen Novolog parameters today w/ ~20% reduction in basal insulin * Diet advanced yesterday 03/25: * Man received 27 units of insulin following admission yesterday, 20 of which were basal. BSGs were 205-160-158 mg/dL. * Fasting BSG was 145 mg/dL this AM. Patient remains NPO for N/V and gastroparesis. Will continue with current basal dose. Will need increased once patient starts eating. Could also consider NPH when patient starts eating. * No change to Novolog for now. 03/24: * 43 yo M admitted on 03/24/24 secondary to gastroparesis. Pharmacy has been consulted to assist with inpatient glycemic management. Patient is a Type 2 diabetic as an outpatient. Please refer to outpatient regimen and most recent HbA1c above. * BSG was 255 mg/dL upon arrival. No insulin received today. Repeat A1c ordered for tomorrow. Upon admission, BSG was 205 mg/dL. * Will give 20 units of basal x 1. Reassess bolus tomorrow as patient is currently NPO. Novolog will be based on previous admission data. PLAN FOR INPATIENT GLYCEMIC CONTROL: * Hold outpatient oral diabetes medications * Basal insulin * Lantus 10 units SC daily * Bolus insulin * NovoLog per scale ACHS or Q6hrs while NPO * Goal Range: Low 110 mg/dL - High 140 mg/dL * Correction Factor: 25 mg/dL/unit * Nutritional / Prandial insulin per carb ratio of 1 unit per 10 grams CHO consumed
--- NOTE | 2024-03-29 15:04 | Hospitalist Progress Note ---
Date of Service March 29, 2024 Assessment & Plan (1) Intractable nausea and vomiting: (2) BONILLA (acute kidney injury): (3) Metabolic acidosis: (4) Lactic acid acidosis: (5) T2DM (type 2 diabetes mellitus): (6) Gastroparesis: (7) HFrEF (heart failure with reduced ejection fraction): (8) Non-ischemic cardiomyopathy: (9) Malnutrition: Plan This is a 43-year-old male who has significant past medical history of T2DM, HTN, hypertriglyceridemia, chronic HFrEF, history of pulmonary embolism, GERD, gastroparesis, diabetic autonomic neuropathy, history of alcohol abuse who presents to ED secondary to nausea/vomiting. Gastroparesis Pt does meet SIRS criteria with leukocytosis and tachycardia and lactic acidosis. No apparent source of infection identified. Consult gastroenterology, appreciate rces -miralax daily -small freq meals -outpt EGD and Colonoscopy -antiemetics prn He does use marijuana gummies x 1 year, possibly contributing IV Emend x 1 on admission po ppi PRN antiemetics Continue to monitor improving, advancing diet as tolerated Very frustrated with his symptoms as it has not been improving for the last 10 years Tolerating only clears and any solid food will make the symptoms worse Reassured-will try to coordinate care with outpatient dolly pusher Will try Phenergan in smaller doses ASC to decrease nausea Will try to hydrate him with multivitamin infusion Advised to try small amount of food at 1 time and take it multiple times to avoid nausea and vomiting Will definitely arrange for outpatient GI on discharge Remains stable but clinically not any better Remains nauseous and has been tolerating anything more than clears Malnutrition Has been losing weight for the last few years Secondary to not being able to eat and drink reasonably Started on multivitamin, thiamine and folic acid Acute Kidney Injury Metabolic Acidosis Cr elevated at 2.51 on admission, baseline of ~1.04 Glucose 255, anion gap of 28, VBG wnl on admission UA with glucose, ketones, proteins Hgba1c of 6.1 Nephrology consulted on admission Kidney functions remained stable and no electrolytes abnormalities Advised to drink more fluid T2DM, A1C 7.7 Diabetic neuropathy Diabetic Gastroparesis hold glipizide, Trulicity lantus/novolog per protocol will consult glycemic pharmacy, he does follow [facility] in clinic renal dose gabapentin Continue to monitor Chronic HFrEF Non ischemic Cardiomyopathy HLD follows [facility] Cards on GDMT statin, entresto, lasix , aldactone hold GDMT in setting of BONILLA last echo 05/2023 EF 35-39%, diffuse LV hypokinesis resume home statin, ezetimibe Does not have any acute cardiac symptoms Hx of DVT/PE hx of unprovoked dvt/PE x 2, on life long anticoagulation held xarelto due to reported hematemesis Xarelto resumed, hgb stable Hx of Alcohol abuse currently denies use Current Marijuana Gummy use DVT ppx: Xarelto Diet:on clears currently Dispo: Home once medically stable Admission and Anticipated Discharge Date Admission Date: March 24, 2024 Subjective 03/27/2024 The patient was seen and examined in medical telemetry unit He complains today of ongoing nausea and has been tolerating any diet except clears He is very much frustrated with his life Has been losing weight but denies any acute distress 03/28/2024 The patient was seen and examined He remains nauseous and has been tolerating liquids only Remains frustrated 03/29/2024 The patient was seen and examined in medical telemetry He has been stable with continued symptoms of nausea with food Cannot tolerate anything more than liquid Review of Systems Review of Systems: All systems reviewed and are unremarkable except as noted below Physical Exam Physical Exam: Lying in bed without any acute distress Constitutional: well developed and well nourished; not ill appearing Eyes: PERRL, conjunctivae normal, anicteric sclerae ENMT: external ear and nose normal, oropharynx normal Neck: trachea midline, no thyromegaly Respiratory: no respiratory distress Auscultation: lungs clear to auscultation bilaterally Cardiovascular: Rate/Rhythm: regular rate and regular rhythm; not tachycardic Heart Sounds: normal S1 and normal S2; no murmur Extremities: no edema Gastrointestinal (Abdomen): Inspection/Auscultation: normal bowel sounds; abdomen not distended Percussion/Palpation: abdomen soft; abdomen nontender Neurologic: normal touch/pain/proprioception and moves all extremities; no focal motor deficits Psychiatric: Mood: + depressed mood Lymphatic: no cervical or axillary lymphadenopathy Results & Data Results & Data Vital Signs (Past 12 Hours) Vital Signs Temp Pulse Pulse Resp BP BP Pulse Ox 03/29/24 11:25 36.4 C L 74 16 129/87 98 03/29/24 08:06 36.7 C 86 18 158/89 H 98 03/29/24 08:04 71 03/29/24 07:20 03/29/24 04:10 37.1 C 70 18 129/88 95 O2 Del Method 03/29/24 11:25 Room Air 03/29/24 08:06 Room Air 03/29/24 08:04 03/29/24 07:20 Room Air 03/29/24 04:10 Room Air Medications Administered Current Inpatient Medications Acetaminophen (Acetaminophen 325 Mg Tab) 650 mg PO Q4H PRN PRN Reason: Pain or Fever Stop: 04/23/24 11:35 Last Admin: 03/28/24 20:13 Dose: 650 mg Al Hydrox/Mg Hydrox/Simethicone (Aluminum/Magnesium/Simeth (Maalox Max) 30 Ml Udc) 30 ml PO Q6H PRN PRN Reason: dyspepsia Stop: 04/23/24 14:17 Atorvastatin Calcium ([facility]atin 40 Mg Tab) [facility] [place]: 04/25/24 08:59 Last Admin: 03/29/24 07:56 Dose: 40 mg Dextrose (Dextrose 50% 50 Ml Syringe) 25 - 50 ml IV UD PRN; Protocol PRN Reason: Hypoglycemia Protocol Stop: 04/23/24 11:35 Ezetimibe (Ezetimibe 10 Mg Tab) [facility] [place] 04/25/24 08:59 Last Admin: 03/29/24 07:56 Dose: 10 mg Fenofibrate (Fenofibrate Nanocrystallized 145 Mg Tablet) [facility] [place]: 04/25/24 08:59 Last Admin: 03/29/24 07:56 Dose: 145 mg Folic Acid (Folic Acid 400 Mcg Tab) 400 mcg [facility] [place]: 04/28/24 15:14 Gabapentin (Gabapentin 300 Mg Cap) 300 mg PO BID [facility] Stop: 04/23/24 20:59 Last Admin: 03/29/24 07:56 Dose: 300 mg Glucagon (Glucagon For Inj 1 Mg Vial) 1 mg SQ UD PRN; Protocol PRN Reason: Hypoglycemia Protocol Stop: 04/23/24 11:35 Glucose (Glucose 40% Gel 15 Gm Tube) 15 - 30 gm PO UD PRN; Protocol PRN Reason: Hypoglycemia Protocol Stop: 04/23/24 11:35 Glucose (Glucose 10 Tab/Tube) 4 - 8 tab PO UD PRN; Protocol PRN Reason: Hypoglycemia Treatment Stop: 04/23/24 11:35 Hydralazine HCl (Hydralazine Hcl 20 Mg/Ml Vial) 5 mg IV Q6H PRN PRN Reason: SBP > 170 Stop: 04/23/24 11:35 Promethazine HCl 12.5 mg/ (Sodium Chloride) 50.5 mls @ 202 mls/hr IV Q6H PRN PRN Reason: Nausea And Vomiting Stop: 04/23/24 11:35 Last Infusion: 03/25/24 08:39 Dose: Infused Insulin Aspart (Insulin Aspart Per Unit Charge) 0 units SC ACHS [facility]; Protocol Stop: 04/23/24 11:59 Last Admin: 03/29/24 12:42 Dose: 2 units Insulin Glargine (Lantus Per Unit Charge) 10 units SC DAILY [facility]; Protocol Stop: 04/26/24 08:59 Last Admin: 03/29/24 08:30 Dose: 10 units Levalbuterol HCl (Levalbuterol Tartrate 15 Gm Hfa.Aer.Ad) 2 puffs INH Q6H PRN PRN Reason: shortness of breath Stop: 04/24/24 17:40 Metoprolol Succinate (Metoprolol Succ 25mg Ext Rel Tab) 75 mg PO [facility] Stop: 04/28/24 08:59 Last Admin: 03/29/24 07:56 Dose: 75 mg Miscellaneous (Carbohydrates For Hypoglycemia ) 15 - 30 gm PO UD PRN PRN Reason: Hypoglycemia Protocol Stop: 04/23/24 11:35 Miscellaneous Information (Pharmacy Glycemic Mgmt Consult) 1 each N/A UD PRN PRN Reason: Consult Stop: 04/23/24 11:35 Multivitamins (Multivitamin Tab) 1 [place] [facility] [place]: 04/28/24 14:59 Ondansetron HCl (Ondansetron Inj 2 Mg/Ml 2 Ml Vial) 4 mg IV Q6H PRN PRN Reason: Nausea Stop: 04/23/24 11:35 Last Admin: 03/25/24 05:45 Dose: 4 mg Pantoprazole Sodium (P[facility]op[facility]ole 40 Mg Tab) [facility]: 04/25/24 06:29 Last Admin: 03/29/24 06:02 Dose: 40 mg Polyethylene Glycol (Polyethylene (Miralax) 17 Gm Pack) 17 gm PO DAILY PRN PRN Reason: Constipation Stop: 04/23/24 11:35 Polyethylene Glycol (Polyethylene (Miralax) 17 Gm Pack) 17 gm PO DAILY [facility] Stop: 04/23/24 12:14 Last Admin: 03/29/24 07:56 Dose: Not Given Promethazine HCl (Promethazine Hcl Syrup 6.25 Mg/5 Ml) 6.25 mg PO AC [facility] Stop: 04/27/24 16:29 Last Admin: 03/29/24 11:15 Dose: 6.25 mg Rivaroxaban (Rivaroxaban 20 Mg Tab) 20 mg PO DAILYBD [facility] Stop: 04/25/24 15:29 Last Admin: 03/28/24 16:02 Dose: 20 mg Thiamine HCl (Thiamine Hcl 50 Mg Tablet) 50 mg PO QAM [facility] Stop: 04/28/24 15:14
[2024-03-29] MEDS: FOLIC ACID 400 MCG TAB PO SCH (15:29)
[2024-03-29] MEDS: THIAMINE HCL 50 MG TABLET PO SCH (15:29)
[2024-03-29] MEDS: MULTIVITAMIN TAB PO SCH (15:29)
--- NOTE | 2024-03-30 12:54 | Hospitalist Progress Note ---
Date of Service March 30, 2024 Assessment & Plan (1) Intractable nausea and vomiting: (2) BONILLA (acute kidney injury): (3) Metabolic acidosis: (4) Lactic acid acidosis: (5) T2DM (type 2 diabetes mellitus): (6) Gastroparesis: (7) HFrEF (heart failure with reduced ejection fraction): (8) Non-ischemic cardiomyopathy: (9) Malnutrition: Plan This is a 43-year-old male who has significant past medical history of T2DM, HTN, hypertriglyceridemia, chronic HFrEF, history of pulmonary embolism, GERD, gastroparesis, diabetic autonomic neuropathy, history of alcohol abuse who presents to ED secondary to nausea/vomiting. Gastroparesis Pt does meet SIRS criteria with leukocytosis and tachycardia and lactic acidosis. No apparent source of infection identified. Consult gastroenterology, appreciate rces -miralax daily -small freq meals -outpt EGD and Colonoscopy -antiemetics prn He does use marijuana gummies x 1 year, possibly contributing IV Emend x 1 on admission po ppi PRN antiemetics Continue to monitor improving, advancing diet as tolerated Very frustrated with his symptoms as it has not been improving for the last 10 years Tolerating only clears and any solid food will make the symptoms worse Reassured-will try to coordinate care with outpatient watchstander Will try Phenergan in smaller doses ASC to decrease nausea Will try to hydrate him with multivitamin infusion Advised to try small amount of food at 1 time and take it multiple times to avoid nausea and vomiting Will definitely arrange for outpatient GI on discharge Remains stable but clinically not any better Remains nauseous and has been tolerating anything more than clears Remains stable but says not yet ready to be discharged Malnutrition Has been losing weight for the last few years Secondary to not being able to eat and drink reasonably Started on multivitamin, thiamine and folic acid Agreeable to be discharged on Monday or Monday Acute Kidney Injury Metabolic Acidosis Cr elevated at 2.51 on admission, baseline of ~1.04 Glucose 255, anion gap of 28, VBG wnl on admission UA with glucose, ketones, proteins Hgba1c of 6.1 Nephrology consulted on admission Kidney functions remained stable and no electrolytes abnormalities Advised to drink more fluid T2DM, A1C 7.7 Diabetic neuropathy Diabetic Gastroparesis hold glipizide, Trulicity lantus/novolog per protocol will consult glycemic pharmacy, he does follow [facility] in clinic renal dose gabapentin Continue to monitor Chronic HFrEF Non ischemic Cardiomyopathy HLD follows [facility] Cards on GDMT statin, entresto, lasix , aldactone hold GDMT in setting of BONILLA last echo 05/2023 EF 35-39%, diffuse LV hypokinesis resume home statin, ezetimibe Does not have any acute cardiac symptoms Does not want to try try any more of the IV fluid with vitamins Hx of DVT/PE hx of unprovoked dvt/PE x 2, on life long anticoagulation held xarelto due to reported hematemesis Xarelto resumed, hgb stable Hx of Alcohol abuse currently denies use Current Marijuana Gummy use DVT ppx: Xarelto Diet:on clears currently Dispo: Home once medically stable Admission and Anticipated Discharge Date Admission Date: March 24, 2024 Subjective 03/27/2024 The patient was seen and examined in medical telemetry unit He complains today of ongoing nausea and has been tolerating any diet except clears He is very much frustrated with his life Has been losing weight but denies any acute distress 03/28/2024 The patient was seen and examined He remains nauseous and has been tolerating liquids only Remains frustrated 03/29/2024 The patient was seen and examined in medical telemetry He has been stable with continued symptoms of nausea with food Cannot tolerate anything more than liquid 03/30/2024 The patient was seen and examined in medical telemetry unit He remains stable with ongoing nausea Has been tolerating clears without any problem and is very afraid to advance it further Review of Systems Review of Systems: All systems reviewed and are unremarkable except as noted below Physical Exam Physical Exam: Lying in bed without any acute distress Constitutional: well developed and well nourished; not ill appearing Eyes: PERRL, conjunctivae normal, anicteric sclerae ENMT: external ear and nose normal, oropharynx normal Neck: trachea midline, no thyromegaly Respiratory: no respiratory distress Auscultation: lungs clear to auscultation bilaterally Cardiovascular: Rate/Rhythm: regular rate and regular rhythm; not tachycardic Heart Sounds: normal S1 and normal S2; no murmur Extremities: no edema Gastrointestinal (Abdomen): Inspection/Auscultation: normal bowel sounds; abd omen not distended Percussion/Palpation: abdomen soft; abdomen nontender Musculoskeletal: No acute arthritis involving any of the joints Neurologic: normal touch/pain/proprioception and moves all extremities; no focal motor deficits Psychiatric: Mood: + depressed mood Lymphatic: no cervical or axillary lymphadenopathy Results & Data Results & Data Vital Signs (Past 12 Hours) Vital Signs Temp Pulse Pulse Resp BP Pulse Ox O2 Del Method 03/30/24 11:16 37.4 C 74 16 146/97 H 97 Room Air 03/30/24 07:36 36.6 C 72 18 146/96 H 99 Room Air 03/30/24 06:00 71 Medications Administered Current Inpatient Medications Acetaminophen (Acetaminophen 325 Mg Tab) 650 mg PO Q4H PRN PRN Reason: Pain or Fever Stop: 04/23/24 11:35 Last Admin: 03/29/24 19:23 Dose: 650 mg Al Hydrox/Mg Hydrox/Simethicone (Aluminum/Magnesium/Simeth (Maalox Max) 30 Ml Udc) 30 ml PO Q6H PRN PRN Reason: dyspepsia Stop: 04/23/24 14:17 Atorvastatin Calcium ([facility] 40 Mg Tab) [facility]: 04/25/24 08:59 Last Admin: 03/30/24 08:31 Dose: 40 mg Dextrose (Dextrose 50% 50 Ml Syringe) 25 - 50 ml IV UD PRN; Protocol PRN Reason: Hypoglycemia Protocol Stop: 04/23/24 11:35 Ezetimibe (Ezetimibe 10 Mg Tab) 10 mg PO QAM [facility] Stop: 04/25/24 08:59 Last Admin: 03/30/24 08:31 Dose: 10 mg Fenofibrate (Fenofibrate Nanocrystallized 145 Mg Tablet) [facility]: 04/25/24 08:59 Last Admin: 03/30/24 08:31 Dose: 145 mg Folic Acid (Folic Acid 400 Mcg Tab) 400 mcg PO QAM [facility] Stop: 04/28/24 15:14 Last Admin: 03/30/24 08:30 Dose: 400 mcg Gabapentin (Gabapentin 300 Mg Cap) 300 mg PO BID [facility] Stop: 04/23/24 20:59 Last Admin: 03/30/24 08:31 Dose: 300 mg Glucagon (Glucagon For Inj 1 Mg Vial) 1 mg SQ UD PRN; Protocol PRN Reason: Hypoglycemia Protocol Stop: 04/23/24 11:35 Glucose (Glucose 40% Gel 15 Gm Tube) 15 - 30 gm PO UD PRN; Protocol PRN Reason: Hypoglycemia Protocol Stop: 04/23/24 11:35 Glucose (Glucose 10 Tab/Tube) 4 - 8 tab PO UD PRN; Protocol PRN Reason: Hypoglycemia Treatment Stop: 04/23/24 11:35 Hydralazine HCl (Hydralazine Hcl 20 Mg/Ml Vial) 5 mg IV Q6H PRN PRN Reason: SBP > 170 Stop: 04/23/24 11:35 Promethazine HCl 12.5 mg/ (Sodium Chloride) 50.5 mls @ 202 mls/hr IV Q6H PRN PRN Reason: Nausea And Vomiting Stop: 04/23/24 11:35 Last Infusion: 03/25/24 08:39 Dose: Infused Insulin Aspart (Insulin Aspart Per Unit Charge) 0 units SC [facility]; Protocol Stop: 04/23/24 11:59 Last Admin: 03/30/24 12:47 Dose: 4 units Insulin Glargine (Lantus Per Unit Charge) 10 units SC DAILY [facility]; Protocol Stop: 04/26/24 08:59 Last Admin: 03/30/24 09:00 Dose: 10 units Levalbuterol HCl (Levalbuterol Tartrate 15 Gm Hfa.Aer.Ad) 2 puffs INH Q6H PRN PRN Reason: shortness of breath Stop: 04/24/24 17:40 Metoprolol Succinate (Metoprolol Succ 25mg Ext Rel Tab) [facility]: 04/28/24 08:59 Last Admin: 03/30/24 08:31 Dose: 75 mg Miscellaneous (Carbohydrates For Hypoglycemia ) 15 - 30 gm PO UD PRN PRN Reason: Hypoglycemia Protocol Stop: 04/23/24 11:35 Miscellaneous Information (Pharmacy Glycemic Mgmt Consult) 1 each N/A UD PRN PRN Reason: Consult Stop: 04/23/24 11:35 Multivitamins (Multivitamin Tab) [facility]: 04/28/24 14:59 Last Admin: 03/30/24 08:30 Dose: 1 tab Ondansetron HCl (Ondansetron Inj 2 Mg/Ml 2 Ml Vial) 4 mg IV Q6H PRN PRN Reason: Nausea Stop: 04/23/24 11:35 Last Admin: 03/25/24 05:45 Dose: 4 mg Pantoprazole Sodium (Pantoprazole 40 Mg Tab) 40 mg PO DAILYBB [facility] Stop: 04/25/24 06:29 Last Admin: 03/30/24 06:06 Dose: 40 mg Polyethylene Glycol (Polyethylene (Miralax) 17 Gm Pack) 17 gm PO DAILY PRN PRN Reason: Constipation Stop: 04/23/24 11:35 Polyethylene Glycol (Polyethylene (Miralax) 17 Gm Pack) 17 gm PO DAILY [facility] Stop: 04/23/24 12:14 Last Admin: 03/30/24 08:33 Dose: Not Given Promethazine HCl (Promethazine Hcl Syrup 6.25 Mg/5 Ml) 6.25 mg PO AC [facility] Stop: 04/27/24 16:29 Last Admin: 03/30/24 12:23 Dose: 6.25 mg Rivaroxaban (Rivaroxaban 20 Mg Tab) 20 mg PO DAILYBD [facility] Stop: 04/25/24 15:29 Last Admin: 03/29/24 15:29 Dose: 20 mg Thiamine HCl (Thiamine Hcl 50 Mg Tablet) 50 mg PO QAM [facility] Stop: 04/28/24 15:14 Last Admin: 03/30/24 08:30 Dose: 50 mg
--- NOTE | 2024-03-31 11:49 | Hospitalist Progress Note ---
Date of Service March 31, 2024 Assessment & Plan (1) Intractable nausea and vomiting: (2) BONILLA (acute kidney injury): (3) Metabolic acidosis: (4) Lactic acid acidosis: (5) T2DM (type 2 diabetes mellitus): (6) Gastroparesis: (7) HFrEF (heart failure with reduced ejection fraction): (8) Non-ischemic cardiomyopathy: (9) Malnutrition: Plan This is a 43-year-old male who has significant past medical history of T2DM, HTN, hypertriglyceridemia, chronic HFrEF, history of pulmonary embolism, GERD, gastroparesis, diabetic autonomic neuropathy, history of alcohol abuse who presents to ED secondary to nausea/vomiting. Gastroparesis Pt does meet SIRS criteria with leukocytosis and tachycardia and lactic acidosis. No apparent source of infection identified. Consult gastroenterology, appreciate rces -miralax daily -small freq meals -outpt EGD and Colonoscopy -antiemetics prn He does use marijuana gummies x 1 year, possibly contributing IV Emend x 1 on admission po ppi PRN antiemetics Continue to monitor improving, advancing diet as tolerated Very frustrated with his symptoms as it has not been improving for the last 10 years Tolerating only clears and any solid food will make the symptoms worse Reassured-will try to coordinate care with outpatient crap shooter Will try Phenergan in smaller doses ASC to decrease nausea Will try to hydrate him with multivitamin infusion Advised to try small amount of food at 1 time and take it multiple times to avoid nausea and vomiting Will definitely arrange for outpatient GI on discharge Remains stable but clinically not any better Remains nauseous and has been tolerating anything more than clears Remains stable but says not yet ready to be discharged Will get Phenergan before meals and the diet was advanced to full liquid We will check his labs tomorrow and likely discharge tomorrow Malnutrition Has been losing weight for the last few years Secondary to not being able to eat and drink reasonably Started on multivitamin, thiamine and folic acid Agreeable to be discharged on Monday or Monday Acute Kidney Injury Metabolic Acidosis Cr elevated at 2.51 on admission, baseline of ~1.04 Glucose 255, anion gap of 28, VBG wnl on admission UA with glucose, ketones, proteins Hgba1c of 6.1 Nephrology consulted on admission Kidney functions remained stable and no electrolytes abnormalities Advised to drink more fluid T2DM, A1C 7.7 Diabetic neuropathy Diabetic Gastroparesis hold glipizide, Trulicity lantus/novolog per protocol will consult glycemic pharmacy, he does follow [facility] in clinic renal dose gabapentin Continue to monitor Chronic HFrEF Non ischemic Cardiomyopathy HLD follows [facility] Cards on GDMT statin, entresto, lasix , aldactone hold GDMT in setting of BONILLA last echo 05/2023 EF 35-39%, diffuse LV hypokinesis resume home statin, ezetimibe Does not have any acute cardiac symptoms Does not want to try try any more of the IV fluid with vitamins Hx of DVT/PE hx of unprovoked dvt/PE x 2, on life long anticoagulation held xarelto due to reported hematemesis Xarelto resumed, hgb stable Hx of Alcohol abuse currently denies use Current Marijuana Gummy use DVT ppx: Xarelto Diet:on clears currently Dispo: Home once medically stable Admission and Anticipated Discharge Date Admission Date: March 24, 2024 Subjective 03/27/2024 The patient was seen and examined in medical telemetry unit He complains today of ongoing nausea and has been tolerating any diet except clears He is very much frustrated with his life Has been losing weight but denies any acute distress 03/28/2024 The patient was seen and examined He remains nauseous and has been tolerating liquids only Remains frustrated 03/29/2024 The patient was seen and examined in medical telemetry He has been stable with continued symptoms of nausea with food Cannot tolerate anything more than liquid 03/30/2024 The patient was seen and examined in medical telemetry unit He remains stable with ongoing nausea Has been tolerating clears without any problem and is very afraid to advance it further 03/31/2024 The patient was seen and examined in medical telemetry unit He has been stable with ongoing nausea Phenergan has been helping with nausea and he was advised to have that medicine prior to any meal His diet was advanced to full liquid Review of Systems Review of Systems: All systems reviewed and are unremarkable except as noted below Physical Exam Physical Exam: Lying in bed without any acute distress Constitutional: well developed and well nourished; not ill appearing Eyes: PERRL, conjunctivae normal, anicteric sclerae ENMT: external ear and nose normal, oropharynx normal Neck: trachea midline, no thyromegaly Respiratory: no respiratory distress Auscultation: lungs clear to auscultation bilaterally Cardiovascular: Rate/Rhythm: regular rate and regular rhythm; not tachycardic Heart Sounds: normal S1 and normal S2; no murmur Extremities: no edema Gastrointestinal (Abdomen): Inspection/Auscultation: normal bowel sounds; abdomen not distended Percussion/Palpation: abdomen soft; abdomen nontender Musculoskeletal: No acute arthritis involving any of the joints Neurologic: normal touch/pain/proprioception and moves all extremities; no focal motor deficits Psychiatric: Mood: + depressed mood Lymphatic: no cervical or axillary lymphadenopathy Results & Data Results & Data Vital Signs (Past 12 Hours) Vital Signs Temp Pulse Pulse Resp BP Pulse Ox O2 Del Method 03/31/24 11:38 36.3 C L 86 18 132/88 96 Room Air 03/31/24 07:49 36.5 C 80 18 142/93 H 97 Room Air 03/31/24 05:59 74 03/31/24 03:48 36.5 C 74 16 136/93 98 Room Air Medications Administered Current Inpatient Medications Acetaminophen (Acetaminophen 325 Mg Tab) 650 mg PO Q4H PRN PRN Reason: Pain or Fever Stop: 04/23/24 11:35 Last Admin: 03/31/24 08:39 Dose: 650 mg Al Hydrox/Mg Hydrox/Simethicone (Aluminum/Magnesium/Simeth (Maalox Max) 30 Ml Udc) 30 ml PO Q6H PRN PRN Reason: dyspepsia Stop: 04/23/24 14:17 Atorvastatin Calcium (Atorvastatin 40 Mg Tab) [facility]: 04/25/24 08:59 Last Admin: 03/31/24 08:40 Dose: 40 mg Dextrose (Dextrose 50% 50 Ml Syringe) 25 - 50 ml IV UD PRN; Protocol PRN Reason: Hypoglycemia Protocol Stop: 04/23/24 11:35 Ezetimibe (Ezetimibe 10 Mg Tab) [facility] [place]: 04/25/24 08:59 Last Admin: 03/31/24 08:40 Dose: 10 mg Fenofibrate (Fenofibrate Nanocrystallized 145 Mg Tablet) 145 [facility] [place]: 04/25/24 08:59 Last Admin: 03/31/24 08:39 Dose: 145 mg Folic Acid (Folic Acid 400 Mcg Tab) 400 mcg [facility] [place] 04/28/24 15:14 Last Admin: 03/31/24 08:40 Dose: 400 mcg Gabapentin (Gabapentin 300 Mg Cap) 300 mg PO BID [facility] Stop: 04/23/24 20:59 Last Admin: 03/31/24 08:39 Dose: 300 mg Glucagon (Glucagon For Inj 1 Mg Vial) 1 mg SQ UD PRN; Protocol PRN Reason: Hypoglycemia Protocol Stop: 04/23/24 11:35 Glucose (Glucose 40% Gel 15 Gm Tube) 15 - 30 gm PO UD PRN; Protocol PRN Reason: Hypoglycemia Protocol Stop: 04/23/24 11:35 Glucose (Glucose 10 Tab/Tube) 4 - 8 tab PO UD PRN; Protocol PRN Reason: Hypoglycemia Treatment Stop: 04/23/24 11:35 Hydralazine HCl (Hydralazine Hcl 20 Mg/Ml Vial) 5 mg IV Q6H PRN PRN Reason: SBP > 170 Stop: 04/23/24 11:35 Promethazine HCl 12.5 mg/ (Sodium Chloride) 50.5 mls @ 202 mls/hr IV Q6H PRN PRN Reason: Nausea And Vomiting Stop: 04/23/24 11:35 Last Infusion: 03/25/24 08:39 Dose: Infused Insulin Aspart (Insulin Aspart Per Unit Charge) 0 units SC [facility]; Protocol Stop: 04/23/24 11:59 Last Admin: 03/31/24 08:50 Dose: 1 units Insulin Glargine (Lantus Per Unit Charge) 10 units SC DAILY [facility]; Protocol Stop: 04/26/24 08:59 Last Admin: 03/31/24 08:50 Dose: 10 units Levalbuterol HCl (Levalbuterol Tartrate 15 Gm Hfa.Aer.Ad) 2 puffs INH Q6H PRN PRN Reason: shortness of breath Stop: 04/24/24 17:40 Metoprolol Succinate (Metoprolol Succ 25mg Ext Rel Tab) 75 [facility] [place]: 04/28/24 08:59 Last Admin: 03/31/24 08:40 Dose: 75 mg Miscellaneous (Carbohydrates For Hypoglycemia ) 15 - 30 gm PO UD PRN PRN Reason: Hypoglycemia Protocol Stop: 04/23/24 11:35 Miscellaneous Information (Pharmacy Glycemic Mgmt Consult) 1 each N/A UD PRN PRN Reason: Consult Stop: 04/23/24 11:35 Multivitamins (Multivitamin Tab) 1 tab PO QAM [facility] Stop: 04/28/24 14:59 Last Admin: 03/31/24 08:40 Dose: 1 tab Ondansetron HCl (Ondansetron Inj 2 Mg/Ml 2 Ml Vial) 4 mg IV Q6H PRN PRN Reason: Nausea Stop: 04/23/24 11:35 Last Admin: 03/25/24 05:45 Dose: 4 mg Pantoprazole Sodium (Pantoprazole 40 Mg Tab) 40 mg PO DAILYBB [facility] Stop: 04/25/24 06:29 Last Admin: 03/31/24 05:44 Dose: 40 mg Polyethylene Glycol (Polyethylene (Miralax) 17 Gm Pack) 17 gm PO DAILY PRN PRN Reason: Constipation Stop: 04/23/24 11:35 Polyethylene Glycol (Polyethylene (Miralax) 17 Gm Pack) 17 gm PO DAILY [facility] Stop: 04/23/24 12:14 Last Admin: 03/31/24 08:40 Dose: Not Given Promethazine HCl (Promethazine Hcl Syrup 6.25 Mg/5 Ml) 6.25 mg PO AC [facility] Stop: 04/27/24 16:29 Last Admin: 03/31/24 08:39 Dose: 6.25 mg Rivaroxaban (Rivaroxaban 20 Mg Tab) 20 mg PO DAILYBD [facility] Stop: 04/25/24 15:29 Last Admin: 03/30/24 15:16 Dose: 20 mg Thiamine HCl (Thiamine Hcl 50 Mg Tablet) 50 mg PO QAM [facility] Stop: 04/28/24 15:14 Last Admin: 03/31/24 08:39 Dose: 50 mg
[2024-04-01 07:54] LABS: Basophils # (auto) 0.03 K/uL (0.00-0.20); Basophils % (auto) 0.6 %; Eosinophils # (auto) 0.13 K/uL (0.00-0.50); Eosinophils % (auto) 2.6 %; Hematocrit (blood only) 40.7 % (42.0-52.0); Immature Granulocytes # (auto) 0.04 K/uL (0.01-0.20); Immature Granulocytes % (auto) 0.8 %; Lymphocytes # (auto) 1.29 K/uL (1.20-3.40); Mean Corpuscular Hgb Conc 34.4 g/dL (32.0-36.0); Mean Corpuscular Volume 84.3 fL (80.0-100.0); Mean Platelet Volume 11.8 fL (9.4-12.4); Monocytes # (auto) 0.37 K/uL (0.11-0.59); Monocytes % (auto) 7.4 %; Neutrophils # (auto) 3.11 K/uL (1.40-6.50); Neutrophils % (auto) 62.6 %; Platelet Count 187 K/uL (130-400); RDW Coefficient of Variation 12.2 % (11.5-14.5); RDW Standard Deviation 36.8 fL (36.4-46.3); Red Blood Count 4.83 M/uL (4.70-6.10); White Blood Count 4.97 K/ul (4.8-10.8)
[2024-04-01 08:18] LABS: BUN Creatinine Ratio 8.5 (10-20); Creatinine Clr Calc Pharmacy 96.6 ml/min; Est GFR (African American) 98.4 ml/min; Est GFR (Non-African American) 84.9 ml/min; Magnesium 1.7 mg/dl (1.7-2.4); Phosphorus 3.1 mg/dl (2.5-4.9); Potassium 3.8 mmol/L (3.5-5.1)
[2024-04-01] MEDS: LANTUS PER UNIT CHARGE SC SCH (08:38)
[2024-04-01] MEDS ORDERED: LANTUS PER UNIT CHARGE SC SCH (09:00)
--- NOTE | 2024-04-01 10:36 | Hospitalist Progress Note ---
Date of Service April 01, 2024 Assessment & Plan (1) Intractable nausea and vomiting: (2) BONILLA (acute kidney injury): (3) Metabolic acidosis: (4) Lactic acid acidosis: (5) T2DM (type 2 diabetes mellitus): (6) Gastroparesis: (7) HFrEF (heart failure with reduced ejection fraction): (8) Non-ischemic cardiomyopathy: (9) Malnutrition: Plan This is a 43-year-old male who has significant past medical history of T2DM, HTN, hypertriglyceridemia, chronic HFrEF, history of pulmonary embolism, GERD, gastroparesis, diabetic autonomic neuropathy, history of alcohol abuse who presents to ED secondary to nausea/vomiting. Gastroparesis Pt does meet SIRS criteria with leukocytosis and tachycardia and lactic acidosis. No apparent source of infection identified. Consult gastroenterology, appreciate rces -miralax daily -small freq meals -outpt EGD and Colonoscopy -antiemetics prn He does use marijuana gummies x 1 year, possibly contributing IV Emend x 1 on admission po ppi PRN antiemetics Continue to monitor improving, advancing diet as tolerated Very frustrated with his symptoms as it has not been improving for the last 10 years Tolerating only clears and any solid food will make the symptoms worse Reassured-will try to coordinate care with outpatient career consultant Will try Phenergan in smaller doses ASC to decrease nausea Will try to hydrate him with multivitamin infusion Advised to try small amount of food at 1 time and take it multiple times to avoid nausea and vomiting Will definitely arrange for outpatient GI on discharge Remains stable but clinically not any better Remains nauseous and has been tolerating anything more than clears Remains stable but says not yet ready to be discharged Will get Phenergan before meals and the diet was advanced to full liquid Could not tolerate advance diet due to increasing pain in the lower abdomen Nausea persist and abdominal pain is relieved He will be discharged home this afternoon with outpatient GI appointment as soon as possible Malnutrition Has been losing weight for the last few years Secondary to not being able to eat and drink reasonably Started on multivitamin, thiamine and folic acid Agreeable to be discharged on Monday or Monday Acute Kidney Injury Metabolic Acidosis Cr elevated at 2.51 on admission, baseline of ~1.04 Glucose 255, anion gap of 28, VBG wnl on admission UA with glucose, ketones, proteins Hgba1c of 6.1 Nephrology consulted on admission Kidney functions remained stable and no electrolytes abnormalities Advised to drink more fluid His hemoglobin and electrolytes remain under about T2DM, A1C 7.7 Diabetic neuropathy Diabetic Gastroparesis hold glipizide, Trulicity lantus/novolog per protocol will consult glycemic pharmacy, he does follow [facility] in clinic renal dose gabapentin Continue to monitor Chronic HFrEF Non ischemic Cardiomyopathy HLD follows [facility] Cards on GDMT statin, entresto, lasix , aldactone hold GDMT in setting of BONILLA last echo 05/2023 EF 35-39%, diffuse LV hypokinesis resume home statin, ezetimibe Does not have any acute cardiac symptoms Does not want to try try any more of the IV fluid with vitamins No arrhythmias and no signs and or symptoms of fluid overload Hx of DVT/PE hx of unprovoked dvt/PE x 2, on life long anticoagulation held xarelto due to reported hematemesis Xarelto resumed, hgb stable Hx of Alcohol abuse currently denies use Current Marijuana Gummy use DVT ppx: Xarelto Diet:on clears currently Dispo: Home once medically stable Will be discharged home this afternoon Admission and Anticipated Discharge Date Admission Date: March 24, 2024 Subjective 03/27/2024 The patient was seen and examined in medical telemetry unit He complains today of ongoing nausea and has been tolerating any diet except clears He is very much frustrated with his life Has been losing weight but denies any acute distress 03/28/2024 The patient was seen and examined He remains nauseous and has been tolerating liquids only Remains frustrated 03/29/2024 The patient was seen and examined in medical telemetry He has been stable with continued symptoms of nausea with food Cannot tolerate anything more than liquid 03/30/2024 The patient was seen and examined in medical telemetry unit He remains stable with ongoing nausea Has been tolerating clears without any problem and is very afraid to advance it further 03/31/2024 The patient was seen and examined in medical telemetry unit He has been stable with ongoing nausea Phenergan has been helping with nausea and he was advised to have that medicine prior to any meal His diet was advanced to full liquid 04/01/2024 The patient was seen and examined in medical telemetry unit He continues to have nausea and last night has had lower abdominal pain following the advance diet Still wants to go home this afternoon He will have outpatient GI appointment soon Review of Systems Review of Systems: All systems reviewed and are unremarkable except as noted below Physical Exam Physical Exam: Lying in bed without any acute distress Constitutional: well developed and well nourished; not ill appearing Eyes: PERRL, conjunctivae normal, anicteric sclerae ENMT: external ear and nose normal, oropharynx normal Neck: trachea midline, no thyromegaly Respiratory: no respiratory distress Auscultation: lungs clear to auscultation bilaterally Cardiovascular: Rate/Rhythm: regular rate and regular rhythm; not tachycardic Heart Sounds: normal S1 and normal S2; no murmur Extremities: no edema Gastrointestinal (Abdomen): Inspection/Auscultation: normal bowel sounds; abdomen not distended Percussion/Palpation: abdomen soft; abdomen nontender Neurologic: normal touch/pain/proprioception and moves all extremities; no focal motor deficits Psychiatric: Mood: + depressed mood Lymphatic: no cervical or axillary lymphadenopathy Results & Data Results & Data Vital Signs (Past 12 Hours) Vital Signs Temp Pulse Pulse Resp BP Pulse Ox O2 Del Method 04/01/24 08:15 76 04/01/24 07:47 36.7 C 74 18 152/95 H 98 Room Air 04/01/24 03:31 36.6 C 79 14 144/90 H 96 Room Air 04/01/24 02:14 83 03/31/24 23:32 36.8 C 93 H 16 164/104 H 95 Room Air Laboratory Results Short CBC 04/01/24 Range/Units 07:18 WBC 4.97 (4.8-10.8) K/ul Hgb 14.0 (14.0-18.0) g/dl Hct 40.7 L (42.0-52.0) % Plt Count 187 (130-400) K/uL BMP 04/01/24 07:18 Sodium 141 Potassium 3.8 Chloride 109 H Carbon Dioxide 25 BUN 9 Creatinine 1.06 Glucose 111 H Calcium 9.0 Medications Administered Current Inpatient Medications Acetaminophen (Acetaminophen 325 Mg Tab) 650 mg PO Q4H PRN PRN Reason: Pain or Fever Stop: 04/23/24 11:35 Last Admin: 03/31/24 23:09 Dose: 650 mg Al Hydrox/Mg Hydrox/Simethicone (Aluminum/Magnesium/Simeth (Maalox Max) 30 Ml Udc) 30 ml PO Q6H PRN PRN Reason: dyspepsia Stop: 04/23/24 14:17 Atorvastatin Calcium ([facility]atin 40 Mg Tab) [facility] [place]: 04/25/24 08:59 Last Admin: 04/01/24 07:58 Dose: 40 mg Dextrose (Dextrose 50% 50 Ml Syringe) 25 - 50 ml IV UD PRN; Protocol PRN Reason: Hypoglycemia Protocol Stop: 04/23/24 11:35 Ezetimibe (Ezetimibe 10 Mg Tab) 10 mg PO [facility] Stop: 04/25/24 08:59 Last Admin: 04/01/24 07:58 Dose: 10 mg Fenofibrate (Fenofibrate Nanocrystallized 145 Mg Tablet) 145 mg PO [facility] Stop: 04/25/24 08:59 Last Admin: 04/01/24 07:56 Dose: 145 mg Folic Acid (Folic Acid 400 Mcg Tab) 400 mcg PO [facility] Stop: 04/28/24 15:14 Last Admin: 04/01/24 07:55 Dose: 400 mcg Gabapentin (Gabapentin 300 Mg Cap) 300 mg PO BID [facility] Stop: 04/23/24 20:59 Last Admin: 04/01/24 07:57 Dose: 300 mg Glucagon (Glucagon For Inj 1 Mg Vial) 1 mg SQ UD PRN; Protocol PRN Reason: Hypoglycemia Protocol Stop: 04/23/24 11:35 Glucose (Glucose 40% Gel 15 Gm Tube) 15 - 30 gm PO UD PRN; Protocol PRN Reason: Hypoglycemia Protocol Stop: 04/23/24 11:35 Glucose (Glucose 10 Tab/Tube) 4 - 8 tab PO UD PRN; Protocol PRN Reason: Hypoglycemia Treatment Stop: 04/23/24 11:35 Hydralazine HCl (Hydralazine Hcl 20 Mg/Ml Vial) 5 mg IV Q6H PRN PRN Reason: SBP > 170 Stop: 04/23/24 11:35 Promethazine HCl 12.5 mg/ (Sodium Chloride) 50.5 mls @ 202 mls/hr IV Q6H PRN PRN Reason: Nausea And Vomiting Stop: 04/23/24 11:35 Last Infusion: 03/25/24 08:39 Dose: Infused Insulin Aspart (Insulin Aspart Per Unit Charge) 0 units SC [facility]; Protocol Stop: 04/23/24 11:59 Last Admin: 04/01/24 09:31 Dose: Not Given Insulin Glargine (Lantus Per Unit Charge) 8 units SC DAILY [facility]; Protocol Stop: 05/01/24 08:59 Last Admin: 04/01/24 08:38 Dose: 8 units Levalbuterol HCl (Levalbuterol Tartrate 15 Gm Hfa.Aer.Ad) 2 puffs INH Q6H PRN PRN Reason: shortness of breath Stop: 04/24/24 17:40 Metoprolol Succinate (Metoprolol Succ 25mg Ext Rel Tab) 75 mg PO QAM [facility] Stop: 04/28/24 08:59 Last Admin: 04/01/24 07:58 Dose: 75 mg Miscellaneous (Carbohydrates For Hypoglycemia ) 15 - 30 gm PO UD PRN PRN Reason: Hypoglycemia Protocol Stop: 04/23/24 11:35 Miscellaneous Information (Pharmacy Glycemic Mgmt Consult) 1 each N/A UD PRN PRN Reason: Consult Stop: 04/23/24 11:35 Multivitamins (Multivitamin Tab) 1 [facility] Stop: 04/28/24 14:59 Last Admin: 04/01/24 07:56 Dose: 1 tab Ondansetron HCl (Ondansetron Inj 2 Mg/Ml 2 Ml Vial) 4 mg IV Q6H PRN PRN Reason: Nausea Stop: 04/23/24 11:35 Last Admin: 03/25/24 05:45 Dose: 4 mg Pantoprazole Sodium (Pantoprazole 40 Mg Tab) 40 mg PO DAILYBB [facility] Stop: 04/25/24 06:29 Last Admin: 04/01/24 05:45 Dose: 40 mg Polyethylene Glycol (Polyethylene (Miralax) 17 Gm Pack) 17 gm PO DAILY PRN PRN Reason: Constipation Stop: 04/23/24 11:35 Polyethylene Glycol (Polyethylene (Miralax) 17 Gm Pack) 17 gm PO DAILY [facility] Stop: 04/23/24 12:14 Last Admin: 04/01/24 07:59 Dose: Not Given Promethazine HCl (Promethazine Hcl Syrup 6.25 Mg/5 Ml) 6.25 mg PO AC [facility] Stop: 04/27/24 16:29 Last Admin: 04/01/24 07:54 Dose: 6.25 mg Rivaroxaban (Rivaroxaban 20 Mg Tab) 20 mg PO DAILYBD [facility] Stop: 04/25/24 15:29 Last Admin: 03/31/24 15:21 Dose: 20 mg Thiamine HCl (Thiamine Hcl 50 Mg Tablet) [facility] [place]: 04/28/24 15:14 Last Admin: 04/01/24 07:58 Dose: 50 mg
--- NOTE | 2024-04-01 16:07 | Discharge Summary ---
Date of Service April 01, 2024 Admission HPI Per Admitting Provider This is a 43-year-old male who has significant past medical history of T2DM, HTN, hypertriglyceridemia, chronic HFrEF, history of pulmonary embolism, GERD, gastroparesis, diabetic autonomic neuropathy history of alcohol abuse who presents to ED secondary to nausea vomiting. He has been experiencing nausea and vomiting for several months; however, it has been worsening over the last 2 weeks. He reports a 30 pound unintentional weight loss over the past month. He is unable to eat anything due to his chronic nausea. It is persistent 24 hours a day. Is also associate with a generalized abdominal pain. This pain is localized all over his abdomen with no pinpoint tenderness. The pain is constant, does not wax and wane and nothing seems to make it better or worse. He also states he has not had a normal bowel movement in 2 weeks. He states that when he moves his bowels it is a very small amount of mostly, "it is pushing through something." He is very concerned that there is something wrong. He states his last colonoscopy and EGD was approximately 10 years ago. He has not seen a cnc lathe programmer in a while, but states he has been trying to do so. He does use edible marijuana Gummies and has been for the past year. He states, "you know something is wrong when even these do not make you hungry." He complains of a lack of appetite. He has had a significant improvement in his A1c to 7.7 but attributes this to, "not eating."He denies any recent acute illness or sick contacts. He denies fever, lightheadedness, dizziness, chest pain, shortness breath, cough, hemoptysis, dysuria, increased urgency or frequency with urination, melena or hematochezia. He does report a one-time episode of black stool after drinking a bottle of [employer] mag citrate. In ED patient was hypertensive and tachycardic. His lab work notable for leukocytosis at 16.57k, H&H 17.7 and 52.3, BUN and creatinine of 33 and 2.51, anion gap 28, CO2 18 and chloride 97, lactate 3.2, glucose 255. CT abdomen pelvis did not reveal any acute abnormalities. He follows with [facility] for Chronic HFrEF and nonischemic cardiomyopathy. His last echo was May of 2023 which revealed EF 35-39% with moderate diffuse left ventricular hypokinesis. His outpatient epic records were reviewed which revealed a last upper GI and colonoscopy in 2013. Colonoscopy revealed significant formed stool, large and small mouth diverticula in the sigmoid colon and internal hemorrhoids. Upper GI revealed pancreatic parenchymal abnormalities consisting of diffuse echogenicity through the entire pancreas, fatty liver but otherwise normal. Admission Exam Per Admitting Provider Physical Exam: Constitutional: WD/WN, appears acute ill, vitals as above, NAD, sitting up in bed, pleasant, conversing easily Head: Normocephalic, Atraumatic Eyes: PERRL, conjunctivae normal, anicteric sclerae dry membranes ENMT: external ear and nose normal, oropharynx normal Neck: trachea midline, no thyromegaly normal visual inspection Respiratory: normal respiratory effort, lungs clear to auscultation, no wheeze, rales, rhonchi. Normal insp/exp effort, no accessory muscle use Cardiovascular: tachycardic rate, reg rhythm, no murmur, no edema Vessels: no JVD or carotid bruit Chest: normal inspection of chest Abdomen: normal bowel sounds, soft, nontender, no hepatosplenomegaly Musculoskeletal: no cyanosis or clubbing, extremities motor strength 5/5 Skin: no rashes, warm and dry normal turgor + old healed wound to L medial ankle Neurologic: PERRL, EOMI, accommodation nl, no face palsy, no dysarthria CN's II-XI intact bilaterally and moves all extremities Psychiatric: A+Ox3, euthymic affect Lymphatic: no cervical or axillary lymphadenopathy : deferred Principal Diagnosis Severe gastroparesis with ongoing nausea, type 2 diabetes, nonischemic cardi omyopathy with chronic heart failure with reduced EF-35 to 39% Discharge Exam Lying in bed without any acute distress Constitutional well developed and well nourished; not ill appearing Eyes PERRL, conjunctivae normal, anicteric sclerae ENMT external ear and nose normal, oropharynx normal Neck trachea midline, no thyromegaly Respiratory no respiratory distress Auscultation: lungs clear to auscultation bilaterally Cardiovascular Rate/Rhythm: regular rate and regular rhythm; not tachycardic Heart Sounds: normal S1 and normal S2; no murmur Extremities: no edema Gastrointestinal (Abdomen) Inspection/Auscultation: normal bowel sounds; abdomen not distended Percussion/Palpation: abdomen soft; abdomen nontender Neurologic normal touch/pain/proprioception and moves all extremities; no focal motor deficits Psychiatric Mood: + depressed mood Lymphatic no cervical or axillary lymphadenopathy Discharge Data Allergies Allergy/AdvReac Type Severity Reaction Status Date / Time Sulfa (Sulfonamide Allergy Intermediate ITCHY/HOT Verified 03/24/24 09:17 Antibiotics) metformin AdvReac Intermediate Diarrhea Verified 03/24/24 09:17 morphine AdvReac Intermediate Nausea Verified 03/24/24 09:17 semaglutide [From Ozempic] AdvReac Intermediate Hallucinati Verified 03/24/24 09:17 ng Consultations 03/24/24 09:42 ED Decision to Admit Stat 03/24/24 10:02 Consult Nephrology Routine 03/24/24 10:18 Consult Gastroenterology Routine Ordered Studies 03/24/24 08:32 CT Abd and Pelvis [CT abd pelvis wo con] Stat Hospital Course (1) Intractable nausea and vomiting: (2) BONILLA (acute kidney injury): (3) Metabolic acidosis: (4) Lactic acid acidosis: (5) T2DM (type 2 diabetes mellitus): (6) Gastroparesis: (7) HFrEF (heart failure with reduced ejection fraction): (8) Non-ischemic cardiomyopathy: (9) Malnutrition: Plan This is a 43-year-old male who has significant past medical history of T2DM, HTN, hypertriglyceridemia, chronic HFrEF, history of pulmonary embolism, GERD, gastroparesis, diabetic autonomic neuropathy, history of alcohol abuse who presents to ED secondary to nausea/vomiting. Gastroparesis Pt does meet SIRS criteria with leukocytosis and tachycardia and lactic acidosis. No apparent source of infection identified. Consult gastroenterology, appreciate rces -miralax daily -small freq meals -outpt EGD and Colonoscopy -antiemetics prn He does use marijuana gummies x 1 year, possibly contributing IV Emend x 1 on admission po ppi PRN antiemetics Continue to monitor improving, advancing diet as tolerated Very frustrated with his symptoms as it has not been improving for the last 10 years Tolerating only clears and any solid food will make the symptoms worse Reassured-will try to coordinate care with outpatient cnc lathe programmer Will try Phenergan in smaller doses ASC to decrease nausea Will try to hydrate him with multivitamin infusion Advised to try small amount of food at 1 time and take it multiple times to avoid nausea and vomiting Will definitely arrange for outpatient GI on discharge Remains stable but clinically not any better Remains nauseous and has been tolerating anything more than clears Remains stable but says not yet ready to be discharged Will get Phenergan before meals and the diet was advanced to full liquid Could not tolerate advance diet due to increasing pain in the lower abdomen Nausea persist and abdominal pain is relieved He will be discharged home this afternoon with outpatient GI appointment as soon as possible Malnutrition Has been losing weight for the last few years Secondary to not being able to eat and drink reasonably Started on multivitamin, thiamine and folic acid Agreeable to be discharged on Monday or Monday Acute Kidney Injury Metabolic Acidosis Cr elevated at 2.51 on admission, baseline of ~1.04 Glucose 255, anion gap of 28, VBG wnl on admission UA with glucose, ketones, proteins Hgba1c of 6.1 Nephrology consulted on admission Kidney functions remained stable and no electrolytes abnormalities Advised to drink more fluid His hemoglobin and electrolytes remain under about T2DM, A1C 7.7 Diabetic neuropathy Diabetic Gastroparesis hold glipizide, Trulicity lantus/novolog per protocol will consult glycemic pharmacy, he does follow [facility] in clinic renal dose gabapentin Continue to monitor Chronic HFrEF Non ischemic Cardiomyopathy HLD follows [facility] Cards on GDMT statin, entresto, lasix , aldactone hold GDMT in setting of BONILLA last echo 05/2023 EF 35-39%, diffuse LV hypokinesis resume home statin, ezetimibe Does not have any acute cardiac symptoms Does not want to try try any more of the IV fluid with vitamins No arrhythmias and no signs and or symptoms of fluid overload Hx of DVT/PE hx of unprovoked dvt/PE x 2, on life long anticoagulation held xarelto due to reported hematemesis Xarelto resumed, hgb stable Hx of Alcohol abuse currently denies use Current Marijuana Gummy use DVT ppx: Xarelto Diet:on clears currently Dispo: Home once medically stable Will be discharged home this afternoon Total Time Total Time Spent Total Time Spent (In Minutes): 35 minutes Discharge Plan Discharge Items Patient Disposition: Home - Self-Care Reason For Visit: DIABETIC GASTROPARESIS Discharge Diagnosis: Severe gastroparesis with ongoing nausea, type 2 diabetes, nonischemic cardiomyopathy with chronic heart failure with reduced EF-35 to 39% Condition on Discharge: Fair Activity: Resume your previous activity Non-emergency contact: Primary Care Provider Call non-emergency contact if: you have any medication questions and your symptoms worsen Follow-up/Referrals: Dr Ayala Chiu [Other] (Date & Time 04/03/2024 10:40 AM Provider [facility] Marsha Loco CRNP [Nurse Practitioner] - (Date & Time 06/07/2024 9:30 AM Provider Marsha Loco CRNP Department Gastroenterology [facility] ) Dany Caruso MD [Primary Care Provider] - (Date & Time 04/04/2024 2:40 PM Provider Ovidio Turner MD Department Family Medicine [facility] ) Diet: Carb Consistent or DM2 and Heart Healthy Diet Comment: Liquid diet Addtl Attending Provider Instructions: Please take precautions to avoid falls Try to take antinausea's medication prior to any food Advised to be small amount of food at 1 time and may have multiple times in the day Please keep appointments with the healthcare providers Pending Studies at Discharge: No Stand-Alone Forms: My [facility] Dexmo, Smoking Cessation Medications and DC Order Prescriptions: New promethazine 6.25 mg/5 mL Syrup 6.25 mg PO AC Qty: 240 0RF Continued atorvastatin 40 mg tablet 40 mg PO QAM pantoprazole 40 mg Tablet,Delayed Release (Dr/Ec) 40 mg PO DAILYBB Rx Instructions: TAKE 1 TAB BY MOUTH IN SHANNON MORNING. 30 MINUTES BEFORE THE FIRST MEAL OF TE DAY. DNO CRUSH, SPLIT OR CHEW THE TAB Novolin 70/30 U-100 Insulin 100 unit/mL (70-30) suspension 25 unit subcut BID Qty: 2 0RF Rx Instructions: 1.) ReliOn/Novolin 70/30 given 30 minutes before breakfast and 30 minutes before supper meals. 2.) SMBG 2-3x/day. 3.) Regular/balanced meals thru day. 4.) Continue to work with outpatient provider for insulin dose adjustments. metoprolol succinate 50 mg tablet extended release 24 hr 75 mg PO QAM glipizide 10 mg tablet extended release 24hr 10 mg PO DAILYBB spironolactone 25 mg tablet 25 mg PO QAM gabapentin 300 mg capsule 300 mg PO TID furosemide 20 mg tablet 20 mg PO DAILY Rx Instructions: Take 20mg by mouth once in the morning, may take an extra 20mg if weight gain is 3lbs in 1 day or 5lbs in 1 week ezetimibe 10 mg tablet 10 mg PO QAM fenofibrate nanocrystallized 145 mg tablet 145 mg PO QAM insulin glargine 100 unit/mL (3 mL) insulin pen 45 unit SUBCUT DAILY Trulicity 0.75 mg/0.5 mL pen injector 0.75 mg SUBCUT WK Rx Instructions: Fridays Entresto 24-26 mg tablet 1 tab PO BID levalbuterol tartrate [Xopenex HFA] 45 mcg/actuation HFA aerosol inhaler 2 inh inhalation Q6H PRN (Reason: shortness of breath) Qty: 15 0RF benzonatate 100 mg capsule 100 mg PO TID PRN (Reason: cough) Qty: 15 0RF Xarelto 20 mg tablet 20 mg PO DAILYBD Discharge Orders: Discharge Order (Routine); Ordered 04/01/24 Ordered By: Lida Freitas Admission Data Admit Date/Time: 03/24/24 09:50 Attending Provider: Lida Freitas Admit Provider: Deon Pacheco Primary Care Provider: Dany Caruso Other Providers: Bandar Chicas Jr; Deon Pacheco Other Interventions: Discharge Summary Assessment (RN) Last Done: 04/01/24 11:44
== END 2024-04-01 14:30 | disposition home or self-care (01) | DRG 74 ==
LOC: ED 07:15 → EDINP 09:50 → SUATTDRO 09:50 → 2N 11:36

== ENCOUNTER 2024-05-18 17:06 | Inpatient (IN) ==
--- OUTSIDE RECORDS SUMMARY | 2024-05-18 17:21 | External Medical Summary | Summary of Care ---
Author Name Unknown Organization [facility] Address [address] [place] [address] Phone [phone] Care Team Providers Care Sales And Marketing Intern Name Role Phone Dany Caruso MD Primary Care Provide r Reason for Visit * Reason Comments Dosage Adjustment Via Phone (anticoag Cl inic) Congestive Heart Failure Encounter Details Date Type Department Care Team (Late st Contact Info) Description 04/24/2024 10:00 AM EDT Telemedicine Cardiology, [address] [place] [address] [facility] [address] [place] [address] HFrEF (heart failure with reduced ejection fraction) ([facility])* Allergies Active Allergy Reactions Criticality Noted Date Comments Metformin Diarrhea High 11/21/2023 Morphine 12/27/2013 Nausea, vomiting, diaphoresis Semaglutide Psych complications High 11/21/2023 Sulfa Antibiotics Itching 10/04/2011 documented as of this encounter (statuses as of 04/24/2024) Medications Medication Sig Dispensed Refills Start Date [...] diabetes mellitus with autonomic neuropathy, unspecified whether assisted insulin use (HCC) Use with insulin once daily 100 Each 1 12/13/2023 Active Spironolactone 25 MG Oral Tablet (Aldactone) [...] times daily DxE11.9 300 Each 12/28/2023 Active Triamcinolone Acetonide 0.1 % External Cream [...] days. E11.9 3 Each 5 01/24/2024 Active Empagliflozin 10 MG Oral Tablet (Jardiance) Take 1 Tablet by mouth in the morning. 90 Tablet 3 02/21/2024 Active Gabapentin 300 MG Oral Capsule (Neurontin)Indicati ons:Neuropathy Take 1 Capsule by mouth in the morning and 1 Capsule at noon and 1 Capsule before bedtime. 90 Capsule 3 03/20/2024 Active Metoclopramide HCl 5 MG Oral Tablet (Reglan)Indications :Gastroparesis TAKE 1 TABLET BY MOUTH IN THE MORNING, 1 TAB AT NOON AND 1 TAB BEFORE BEDTIME. 30 MINS BEFORE MEALS 90 Tablet 03/28/2024 Active Promethazine HCl 6.25 MG/5ML Oral SolutionIndications :Gastroparesis Take 6.25 mg by mouth in the morning and 6.25 mg at noon and 6.25 mg in the evening. Take before meals. 240 mL 1 04/16/2024 Active Vitamin D3 1.25 MG (08248 UT) Oral CapsuleIndications: Vitamin D deficiency Take 1 Capsule by mouth once a week. 12 Capsule 04/16/2024 4 Active Insulin Glargine Solostar 100 UNIT/ML Subcutaneous Solution Pen-injector (Lantus SoloStar)Indication s:Type 2 diabetes mellitus with hemoglobin A1c goal of less than 7.0% ([facility]) Inject 25 Units under the skin daily. 04/16/2024 Active Dulaglutide 0.75 MG/0.5ML Subcutaneous Solution Pen-injector (Trulicity) Inject 0.75 mg under the skin once a week. 2 mL 3 12/14/2023 4 Discontinue d(Adverse reaction) Doxycycline Hyclate 100 MG Oral CapsuleIndications: Wound of left lower extremity, subsequent encounter,Rhinosinu sitis Take 1 Capsule by mouth in the morning and 1 Capsule before bedtime. Do all this for 14 days. Take for 14 days. 28 Capsule 02/12/2024 4 Discontinue d(Medicatio n/Dose Changed) documented as of this encounter (statuses as of 04/24/2024) Active Problems Problem Noted Date Diagnosed Date [...] as of this encounter (statuses as of 04/24/2024) Resolved Problems Problem Noted Date Diagnosed Date Resolved Date Type 2 diabetes mellitus wit h autonomic neuropathy 06/29/2022 12/19/2022 Neuropathy 04/07/2021 12/19/2022 Diabetic ketoacidosis withou t coma associated with type 2 diabetes mellitus 04/07/2021 05/06/2021 Overview: 02/2021 Fatigue 11/13/2011 05/10/2022 Esophageal reflux 10/04/2011 04/07/2021 documented as of this encounter (statuses as of 04/24/2024) Immunizations Name Administration Dates Next Due Seasonal Influenza, Split, IIV3, With Preserve, Inj 10/04/2011 TDAP (age 10 and older)(Boostrix) 06/23/2021 TDAP, Age 7 and older, IM (Adacel) 08/15/2011 documented as of this encounter Social History Tobacco Use Types Packs/Day Years Used Date Smoking Tobacco: Former Cigarettes 1 4 0 10/23/2003 - 10/23/2007 Passive Smoke Exposure: Past Smokeless Tobacco: Never Alcohol Use Standard Drinks/Week [...] money to get more. Never true 01/04/2024 Childcare Answer Date Recorded Do you feel overwhelmed with taking care of a child, family member or friend? No 01/04/2024 Does your family need help f inding childcare? (Household - for ages 0-17 years) Not on file 01/04/2024 Clothing Answer Date Recorded Have you been unable to get clothing when it was really needed? No 01/04/2024 Is your family able to get c lothes or diapers when needed? (Household - for ages 0-17 years) Not on file 01/04/2024 Personal Safety Answer Date Recorded Do you feel unsafe or have concerns for your saf ety? No 01/04/2024 Do you have concerns for you r family's safety? (Household - for ages 0-17 years) Not on file 01/04/2024 Utilities Answer Date Recorded Do you have trouble paying y our heating, water, or electric bill? No 01/04/2024 Is your family able to pay t he heat, water, or electric bill? (Household - for ages 0-17 years) Not on file 01/04/2024 Does your family have access to good internet? (Household - for ages 0-17 years) Not on file 01/04/2024 Employment Status Answer Date Recorded Are you unemployed or without regular income? Ye s 01/04/2024 Does the household have a re gular source of income? (Household - for ages 0-17 years) Not on file 01/04/2024 Social Connections Answer Date Recorded How often do you feel lonely or isolated from those around you? Sometimes 01/04/2024 Financial Resource Strain Answer Date R ecorded Do you have any trouble payi ng for your medications, or do you think you might in the future? No 01/04/2024 Does your family have troubl e paying for medicine? (Household - for ages 0-17 years) Not on file 01/04/2024 Transportation Needs Answer Date Record ed READ ONLY Do you have troubl e getting a ride to medical visits or work? Never True 01/04/2024 Does your family have a hard time getting a ride to doctors visits? (Household - for ages 0-17 years) Not on file 01/04/2024 Has lack of transportation k ept you from medical appointments, meetings, work, or from getting things needed for daily living? Check all that apply. (Adult - for ages 18 years and over) Not on file 01/04/2024 Do you (or your family) have trouble finding or paying for a ride (transportation)? (Household - for ages 0-17 years) Not on file 01/04/2024 Housing Stability Answer Date Recorded Do you currently live in a s helter or have no steady place to sleep at night? No 01/04/2024 READ ONLY Do you think you a re at risk of becoming homeless? No 01/04/2024 Does your family worry about paying for your home or becoming homeless? (Household - for ages 0-17 years) Not on file 0 01/04/2024 Are you homeless or worried that you might be in the future? (Adult - for ages 18 years and over) Not on file Are you (or your family) carolina eless or worried that you might be in the future? (Household - for ages 0-17 years) Not on file Food Insecurity Answer Date Recorded Do you need food for this week? No 01/04/2024 Are you able to get enough f ood for your family? (Household - for ages 0-17 years) Not on file 01/04/2024 Does your family need food t his week? (Household - for ages 0-17 years) Not on file 01/04/2024 Do you always have enough fo od for your family? (Household - for ages 0-17 years) Not on file 01/04/2024 Sex and Gender Information Value Date Recorded Sex Assigned at Not on file Gender Identity Not on file Sexual Orientation Not on file Job Start Date Occupation Industry Not on file Not on file Not on file documented as of this encounter Progress Notes * Becca Christian, [facility] - 04/24/2024 10:03 AM EDT PHARMACY CHRONIC DISEASE MANAGEMENT - HEART FAILURE Visit Disposition: Routine follow-up Total call duration was 15 minutes. Man Day is an 43 year old patient referred to the Heart Failure MTM clinic by Joaquina Hernández CRNP for the following: General heart failure medication optimization Lipid management PCP: Dany Caruso MD Cardiology Provider: Joaquina Hernández CRNP Executive Kitchen Manager: Not currently active with case management Urgent HF Access: Reviewed the following treatment locations for urgent HF symptoms with patient and provided them with contact information Cardiology based urgent heart failure clinic, [facility] [phone] Home vitals: Does patient monitor weight at home? yes Any increased edema or shortness of breath: Denies Home weight log results: 214 lbs---01/08 223 lbs --12/19 223 lbs---02/07 227 lbs ---02/12 220 lbs--02/18 226 lbs---03/19/24 200-210 lbs per patient the last few weeks 215 lbs 04/24 Objective: BP Readings from Last 3 Encounters: 04/16/24 148/90 04/03/24 126/88 03/20/24 118/74 Pulse Readings from Last 3 Encounters: 04/16/24 88 04/03/24 86 03/20/24 82 Wt Readings from Last 3 Encounters: 04/16/24 104 kg (229 lb 3.2 oz) 04/03/24 102.1 kg (225 lb) 03/20/24 105.2 kg (232 lb) Lab Results Component Value Date/Time CREATININE - [facility] 0.8 04/16/2024 10:28 AM CREATININE - [facility] 1.3 (H) 03/07/2024 11:16 AM CREATININE - [facility] 1.2 02/19/2024 12:52 PM CREATININE - [facility] 1.1 09/08/2016 02:32 PM CREATININE - [facility] 0.9 06/09/2015 03:06 PM CREATININE - [facility] 0.7 05/09/2011 05:00 PM CREATININE, RANDOM URINE - [facility] 50 05/18/2023 01:36 PM CREATININE, RANDOM URINE - [facility] 199 07/06/2022 12:48 PM CREATININE, RANDOM URINE - [facility] 151 03/24/2022 08:44 AM Lab Results Component Value Date/Time SODIUM - [facility] 141 04/16/2024 10:28 AM SODIUM - [facility] 140 03/07/2024 11:16 AM SODIUM - [facility] 143 02/19/2024 12:52 PM SODIUM - [facility] 143 09/08/2016 02:32 PM SODIUM - [facility] 144 06/09/2015 03:06 PM SODIUM - [facility] 141 05/09/2011 05:00 PM SODIUM, RANDOM URINE - [facility] 178 06/09/2015 03:06 PM Lab Results Component Value Date/Time POTASSIUM - [facility] 4.4 04/16/2024 10:28 AM POTASSIUM - [facility] 4.8 03/07/2024 11:16 AM POTASSIUM - [facility] 4.5 02/19/2024 12:52 PM POTASSIUM - [facility] 4.3 09/08/2016 02:32 [...] No results found for: "TRANSFERRIN" Diet Review: eating soft veggies, fruit, and broth Current Cardiac Medications Metoprolol Er 50 mg tablet take 75 mg daily Lasix 20 mg daily Xarelto 20 mg daily Atorvastatin 40 mg daily Fenofibrate 145 mg daily Ezetimibe 10 mg daily Entresto 24-26 mg BID-started 11/28/23 Spironolactone 25 mg daily-started 12/19/23 Jardiance 10 mg daily-started 02/21/24 Current DM Medications: Lantus 25 units daily *Pill box Eligible for [facility] Mail Order pharmacy? Agree or Declined? Not reviewed Assessment & Plan: HFrEF -LVEF slightly improved -repeat ECHO due 06/20/24 -TSH and vitamin D ordered Previously ordered TSH and vitamin D for fatigue. Encouraged pt to obtain labs. Will continue current CHF medications. Main issue is gastroparesis. I am hesitant to increase his GDMT due to loss of appetite and n/v Uncontrolled Dyslipidemia - Target LDL <70 -Continue current medications -TG much improved but remain elevated; Continue to work to lower BG 3. Uncontrolled T2DM -Following MTM mo -Using Dexcom G7 -HbA1c is trending down, now 7.7% History of alcohol dependence -Pt aware of increased risk of pancreatitis with elevated TG >500 4. Controlled HTN -Goal BP <130/80 -In office readings controlled 5. History of acute PE\\recent DVT -05/2022; pt self D/c DOAC in past -Xarelto 6. Cellulitis Finished up on Doxycyline. Reports this is healing. 7. Gastroparesis Patient feels he is "withering away". Recently admitted with N/v. His Trulicity was stopped. Constantly feels sick, unable to eat. Advised he keep follow up appts and testing. Medication changes: none Labs Due: (ordered) TSH Vitamin D Follow up: none; MTM will sign off Becca Phillips RP Clinical Pharmacist Medication Therapy Disease Management 04/24/2024,10:04 AM documented in this encounter Plan of Treatment Upcoming Encounters Date Type Department Care Team (Latest Contact Info) Description 05/06/2024 10:40 AM EDT Office Visit Nephrology, [facility] [address] [place] [address] Alysha Cochran MD [address] [place] [address] 05/14/2024 9:30 AM EDT Office Visit Pharmacy, [address] [place] [address] [place] [address] 05/29/2024 10:00 AM EDT Imaging [facility] 2nd Floor Cardiology, [address] [place] [phone] 05/29/2024 11:30 AM EDT Imaging [facility] 2nd Floor Cardiology, [address] [place] [phone] 05/29/2024 12:30 PM EDT Imaging [facility] 2nd Floor Cardiology, [address] [place] [address] 05/29/2024 2:30 PM EDT Imaging [address] [address] 06/07/2024 9:30 AM EDT Office Visit Gastroenterology [address] [place] [address] Marsha Loco, [facility] [address] [facility] [place] [address] 06/19/2024 12:40 PM EDT Office Visit Family Medicine [address] [place] [phone] Dany Caruso MD [address] [place] [address] [place] [address] 06/20/2024 11:00 AM EDT Cardiac Studies Cardiac Studies, [address] [place] [address] 08/28/2024 8:20 AM EST Office Visit Family [address] [place] [phone] Dany Caruso MD [address] [place] [address] [place] [address] 09/05/2024 1:00 PM EST Hospital Encounter ENDO [facility], Endoscopy Room [facility] [address] [place] [phone] Yudith Root DO [address] [place] [address] 09/05/2024 1:00 PM EST - 09/05/2024 2:00 PM EST Surgery ENDO [facility], Endoscopy Room [facility] [address] [place] [phone] Yudith Root DO [address] [place] [address] COLONOSCOPY FLEXIBLE PROXIMAL DIAGNOSTIC 09/30/2024 9:30 AM EST Office Visit Cardiology, [facility] [address] [place] [address] Joaquina Hernández CRNP [address] [place] [address] Scheduled Procedures Name Priority Associated Diagnoses Date/Ti me COLONOSCOPY FLEXIBLE PROXIMA L DIAGNOSTIC Abdominal pain 09/05/2024 1:00 PM EST ESOPHAGOGASTRODUODENOSCOPY ( EGD), FLEXIBLE, TRANSORAL, DIAGNOSTIC Abdominal pain 09/05/2024 1:00 PM EST Health Maintenance Due Date Last Done Comments Pneumococcal Vaccine: Pediatrics (0 to 5 Years) and At-Risk Patients (6 to 64 Years) (1 of 2 - PCV) 1985 HIV Screening 1994 Hepatitis C Screening 1997 Hepatitis B Vaccine (1 of 3 - 19+ 3-dose series) 1998 COVID-19 Vaccine ( - 2022-24 season) 2023 Depression Screening 08/31/2023 08/31/2022 Albumin/Creatinine Ratio 05/18/2024 023, 07/06/2022, 03/24/2022, Additional history exists Influenza Vaccine (FLU shot) (#1) 2024 10/04/2011 HbA1c 08/20/2024 02/19/2024, 09/23, 05/18/2023, Additional history exists Diabetic Eye Exam 12/15/2024 12/15/2023, , 03/31/2022, Additional history exists Diabetic Foot Exam 12/15/2024 12/15/2023, 0 12/19/2022, 05/06/2021 GFR 04/16/2025 04/16/2024, 02/20, 02/19/2024, Additional history exists Lipid Panel 03/07/2029 03/07/2024, 11/24, 10/13/2023, Additional history exists DTaP,Tdap,and Td Vaccines (3 - Td or Tdap) 06/23/2031 06/23/2021, 08/15/2011 HPV (Gardasil) Vaccine Aged Out No lo nger eligible based on patient's age to complete this topic MENINGOCOCCAL (MENACTRA/MENVEO) Aged Out No longer eligible based on patient's age to complete this topic documented as of this encounter Medical Devices Not on filedocumented as of this encounter Visit Diagnoses Diagnosis HFrEF (heart failure with reduced ejection fraction) (HCC)- Primary Abdominal pain Abdominal pain, unspecified site documented in this encounter Care Teams Sales And Marketing Intern Relationship Specialty Start Date End Date Dany Caruso MD [address] [place] [address] [place] [address] PCP - General Family Medicine 04/07/21 documented as of this encounter
--- OUTSIDE RECORDS SUMMARY | 2024-05-18 17:21 | External Medical Summary | Summary of Care ---
Author Name Unknown Organization [facility] Address [address] [place] [address] Phone [phone] Care Team Providers Care Purse Maker Name Role Phone Dany Caruso MD Primary Care Provide r Reason for Visit * Reason Comments Hospital Follow-Up Encounter Details Date Type Department Care Team (Late st Contact Info) Description 05/06/2024 10:40 AM EDT Office Visit Nephrology, [address] [address] Alysha Cochran MD [address] [place] [address] BONILLA (acute kidney injury) ([facility])*; Type 2 diabetes mellitus with hemoglobin A1c goal of less than 7.0% ([facility]); Other proteinuria Allergies Active Allergy Reactions Criticality Noted Date Comments Metformin Diarrhea High 11/21/2023 Morphine 12/27/2013 Nausea, vomiting, diaphoresis Semaglutide Psych complications High 11/21/2023 Sulfa Antibiotics Itching 10/04/2011 documented as of this encounter (statuses as of 05/06/2024) Medications Medication Sig Dispensed Refills Start Date End Date Status OneTouch Verio w/Device KitIndications:Type 2 diabetes mellitus with hemoglobin A1c goal of less than 7.0% ([facility]) Use to test once a [...] in the morning. 90 Tablet 11/28/2023 Active Sacubitril-Valsartan 24-26 MG Oral Tablet [...] diabetes mellitus with autonomic neuropathy, unspecified whether senior living insulin use (HCC) Use with insulin once [...] XL)Indications:HFrEF (heart failure with reduced ejection fraction) ([facility]) Take 1.5 Tablets by mouth [...] 02/21/2024 Active Gabapentin 300 MG Oral Capsule (Neurontin)Indicatio [...] 03/28/2024 Active Promethazine HCl 6.25 MG/5ML Oral SolutionIndications: Gastroparesis Take 6.25 mg by mouth in the morning and 6.25 mg at noon and 6.25 mg in the evening. Take before meals. 240 mL 1 04/16/2024 Active Vitamin D3 1.25 MG (32341 UT) Oral CapsuleIndications:V itamin D deficiency Take 1 Capsule by mouth once a week. 12 Capsule 04/16/2024 07/15/2024 Active Insulin Glargine Solostar 100 UNIT/ML Subcutaneous Solution Pen-injector (Lantus SoloStar)Indications :Type 2 diabetes mellitus with hemoglobin A1c goal of less than 7.0% ([facility]) Inject 25 Units under the skin daily. 04/16/2024 Active documented as of this encounter (statuses as of 05/06/2024) Active Problems Problem Noted Date Diagnosed Date [...] as of this encounter (statuses as of 05/06/2024) Resolved Problems Problem Noted Date Diagnosed Date Resolved Date Type 2 diabetes mellitus wit h autonomic neuropathy 06/29/2022 12/19/2022 Neuropathy 04/07/2021 12/19/2022 Diabetic ketoacidosis withou t coma associated with type 2 diabetes mellitus 04/07/2021 05/06/2021 Overview: 02/2021 Fatigue 11/13/2011 05/10/2022 Esophageal reflux 10/04/2011 04/07/2021 documented as of this encounter (statuses as of 05/06/2024) Immunizations Name Administration Dates Next Due Seasonal Influenza, Split, IIV3, With Preserve, Inj 10/04/2011 TDAP (age 10 and older)(Boostrix) 06/23/2021 TDAP, Age 7 and older, IM (Adacel) 08/15/2011 documented as of this encounter Social History Tobacco Use Types Packs/Day Years Used Date Smoking Tobacco: Former Cigarettes 1 4 0 10/23/2003 - 10/23/2007 Passive Smoke Exposure: Past Smokeless Tobacco: Never Tobacco Cessation:Counseling Given: Not [...] 01/04/2024 Does the household have a re lar source of income? (Household - for ages [...] Sign Reading Time Taken Comments Blood Pressure 100/71 05/06/2024 12:31 PM EDT Pulse 83 05/06/2024 12:31 PM EDT Temperature 36.6 C (97.8 F) 05/06/2024 12:30 PM E DT Respiratory Rate 18 05/06/2024 12:30 PM EDT Oxygen Saturation 97% 05/06/2024 12:30 PM EDT Inhaled Oxygen Concentration - - Weight 102.5 kg (226 lb) 05/06/2024 12:30 PM EDT Height - - Body Mass Index 34.37 04/03/2024 10:41 AM EDT documented in this encounter Patient Instructions * Patient Instructions* Alysha Cochran MD - 05/06/2024 1:42 PM EDT No ibuprofen or aleeve or motrin. Use tylenol as needed for pain. documented in this encounter Progress Notes * Alysha Cochran MD - 05/06/2024 1:32 PM EDT REASON FOR CONSULT: CKD Requesting physician:Dany Caruso MD HPI: Man Day is a 43 year old male seen in initial consultation. PMH of type 2 DM for 3yrs, gastroparesis, neuropathy, CHF with EF of 35%, GERD, pulmonary embolism, hyperlipidemia, hypertension. He gets frequent nausea and vomiting. He was discharged from [facility] 3 weeks ago. His cr was 2.5 on 04/01/[address] [facility] from a fairly normal baseline. He takes ibuprofen 4 tab daily for headache. Main complaint is still intermittent nausea and vomiting. No leg swelling. No urinary symptoms. Blood pressure is controlled. He also has constipation and uses MiraLax which helps. Review of Systems: General ROS: negative for - chills or fever Psychological ROS: negative for - mood swings ENT ROS: negative for - nasal congestion or nasal discharge Endocrine ROS: DM Respiratory ROS: no cough, shortness of breath, or wheezing Cardiovascular ROS: no chest pain or dyspnea on exertion Gastrointestinal ROS: N/V Genito-Urinary ROS: no dysuria, trouble voiding, or hematuria Musculoskeletal ROS: negative for - muscle pain Neurological ROS: no TIA or stroke symptoms Dermatological ROS: negative for rash Past Medical History: Diagnosis Date Chronic constipation DM type 2, goal HbA1c < 7% (HCC) Gastroparesis GERD (gastroesophageal reflux disease) HTN, goal below 130/80 Other proteinuria Past Surgical History: Procedure Laterality Date CARDIAC SURGERY PROCEDURE NEC Age 3 Open heart surgery for 2 holes in ventricular septum COLONOSCOPY, DIAGNOSTIC (RECTUM) 01/10/2014 COLONOSCOPY FLEXIBLE PROXIMAL DIAGNOSTIC performed by Nora Patricia DO at END[facility]COPY [facility] EGD, FLEXIBLE, DIAGNOSTIC 01/24/2014 ESOPHAGOGASTRODUODENOSCOPY (EGD), FLEXIBLE, TRANSORAL, DIAGNOSTIC performed by Scott Espinoza MD at [facility]OSCOPY [facility] EGD, FLEXIBLE, W/BIOPSY 12/14/11 mild gastritis negative for HPylori EGD, W/ENDOSCOPIC US 01/24/2014 ESOPHAGOGASTRODUODENOSCOPY (EGD), FLEXIBLE, TRANSORAL, ENDOSCOPIC ULTRASOUND performed by Scott Bailey MD at ENDOSCOPY [facility] Review of patient's allergies indicates: Allergen Reactions Metformin Diarrhea Semaglutide Psych complications Morphine Nausea, vomiting, diaphoresis Sulfa Antibiotics Itching Current Outpatient Medications Medication Sig Dispense Refill Magnesium Oxide (Elemental) 400 MG Oral Tablet Take by mouth 400 mg daily . Atorvastatin Calcium 40 MG Oral Tablet (Lipitor) [...] or chew the tablet. 30 Tablet 5 Spironolactone 25 MG Oral Tablet (Aldactone) Take 1 Tablet by mouth in the morning. 30 Tablet 5 Metoprolol Succinate ER 50 MG Oral Tablet Extended Release 24 Hour (toPROL XL) Take 1.5 Tablets by mouth in the morning. 135 Tablet 2 Furosemide 20 MG Oral Tablet (Lasix) Take 1 tablet by mouth daily. Take an extra tablet if weight gain 3 lbs in 1 day or 5 lbs in 1 week. 45 Tablet 5 Empagliflozin 10 MG Oral Tablet (Jardiance) Take 1 Tablet by mouth in the morning. 90 Tablet 3 Gabapentin 300 MG Oral Capsule (Neurontin) Take 1 Capsule by mouth in the morning and 1 Capsule at noon and 1 Capsule before bedtime. 90 Capsule 3 Metoclopramide HCl 5 MG Oral Tablet (Reglan) TAKE 1 TABLET BY MOUTH IN THE MORNING, 1 TAB AT NOON AND 1 TAB BEFORE BEDTIME. 30 MINS BEFORE MEALS 90 Tablet 0 Vitamin D3 1.25 MG (14747 UT) Oral Capsule Take 1 Capsule by mouth once a week. 12 Capsule 0 Insulin Glargine Solostar 100 UNIT/ML Subcutaneous Solution Pen-injector (Lantus SoloStar) Inject 25 Units under the skin daily. KoolSpanTouch Verio w/Device Kit Use to test once a day E11.9 1 Kit 0 Insulin Syringe 31G X 5/16" 0.3 ML Use to inject insulin twice daily. E11.9 60 Each 5 BD Pen Needle Imelda U/F 32G X 4 MM (Insulin Pen Needle) Use with insulin once daily 100 Each 1 OneTouch Verio In Vitro Strip (Glucose Blood) Use as directed to test blood sugars up to three times daily DxE11.9 300 Strip 3 OneTouch Delica Lancets 33G Use as directed to test blood sugars up to three times daily DxE11.9 300 Each 3 Triamcinolone Acetonide 0.1 % External Cream (Aristocort) Apply topically to affected area 2 times a day as needed for Itching. Affected area: upper back. 60 g 0 Dexcom G7 Sensor Apply 1 sensor every 10 days. E11.9 3 Each 5 Promethazine HCl 6.25 MG/5ML Oral Solution Take 6.25 mg by mouth in the morning and 6.25 mg at noonand 6.25 mg in the evening. Take before meals. 240 mL 1 No current facility-administered medications for this visit. No family history on file. Social History Socioeconomic History Marital status: Single Spouse name: Not on file Number of children: Not on file Years of education: Not on file Highest education level: Not on file Occupational History Not on file Tobacco Use Smoking status: Former Current packs/day: 0.00 Average packs/day: 1 pack/day for 4.0 years (4.0 ttl pk-yrs) Types: Cigarettes Start date: 10/23/2003 Quit date: 10/23/2007 Years since quittin.5 Passive exposure: Past Smokeless tobacco: Never Vaping Use Vaping status: Never Used Substance and Sexual Activity Alcohol use: Yes Comment: Around holidays Drug use: No Sexual activity: Yes Partners: Female Other Topics Concern Not on file Social History Narrative Not on file Social Determinants of Health Financial Resource Strain: Low Risk (01/04/2024) Financial Resource Strain Do you have any trouble paying for your medications, or do you think you might in the future? (Adult - for ages 18 years and over): No Does your family have trouble paying for medicine? (Household - for ages 0-17 years): Not on file Food Insecurity: No Food Insecurity (01/04/2024) Food Insecurity Do you need food for this week? (Adult - for ages 18 years and over): No Are you able to get enough food for your family? (Household - for ages 0-17 years): Not on file Does your family need food this week? (Household - for ages 0-17 years): Not on file Do you always have enough food for your family? (Household - for ages 0-17 years): Not on file Transportation Needs: No Transportation Needs (01/04/2024) Transportation Needs Do you have trouble getting a ride to medical visits or work? (Adult - for ages 18 years and over):Never True Does your family have a hard time getting a ride to doctors visits? (Household - for ages 0-17 years): Not on file Has lack of transportation kept you from medical appointments, meetings, work, or from getting things needed for daily living? Check all that apply. (Adult - for ages 18 years and over): Not on file Do you (or your family) have trouble finding or paying for a ride (transportation)? (Household - for ages 0-17 years): Not on file Social Connections: Socially Integrated (01/04/2024) Social Connections How often do you feel lonely or isolated from those around you? (Adult - for ages 18 years and over): Sometimes Housing Stability: Low Risk (01/04/2024) Housing Stability Do you currently live in a snf or have no steady place to sleep at night? (Adult - for ages 18 years and over): No Do you think you are at risk of becoming homeless? (Adult - for ages 18 years and over): No Does your family worry about paying for your home or becoming homeless? (Household - for ages 0-17 years): Not on file Are you homeless or worried that you might be in the future? (Adult - for ages 18 years and over): Not on file Are you (or your family) homeless or worried that you might be in the future? (Household - for ages0-17 years): Not on file Filed Vitals: 05/06/24 1230 05/06/24 1231 BP: 102/70 100/71 Pulse: 79 83 Resp: 18 Temp: 36.6 C (97.8 F) SpO2: 97% Weight: 102.5 kg (226 lb) PHYSICAL EXAM: GENERAL: Well-appearing, Alert, in no acute distress. EYES: PERRL, conjunctivae anicteric. ENT: Mucous membranes moist, oropharynx clear. NECK: Supple, no JVD. LYMPH: No cervical or supraclavicular lymphadenopathy. LUNGS: Clear to auscultation bilaterally, no respiratory distress. CARDIAC: Regular rate and rhythm, normal S1/S2, no murmurs, rubs, or gallops. ABDOMEN: Soft, non-tender, non-distended, bowel sounds present. EXT/MSK: No clubbing, cyanosis, or edema. SKIN: No rash, no jaundice. NEURO: Oriented x3, No tremor, no asterixis. LABS/STUDIES: Recent Labs Units 04/16/24 1028 03/07/24 1116 02/19/24 1252 01/31/24 1304 SODIUM - [facility] mmol/L 141 140 143 141 POTASSIUM - [facility] mmol/L 4.4 4.8 4.5 4.4 CHLORIDE - [facility] mmol/L 105 106 103 104 CO2 - [facility] mmol/L 22 26 26 26 BUN - [facility] mg/dL 7 13 17 19 CREATININE - [facility] mg/dL 0.8 1.3* 1.2 1.3* Recent Labs Units 01/24/24 0902 11/24/23 0000 05/26/22 0822 05/10/22 0808 WBC K/uL 6.15 -- 6.38 7.76 HGB g/dL 16.7 15.0 16.6 17.6* PLT K/uL 210 -- 169 197 Recent Labs Units 04/16/24 1028 03/07/24 1116 02/19/24 1252 01/31/24 1304 CALCIUM - [facility] mg/dL 9.4 9.2 9.9 9.8 Recent Labs Units 02/19/24 1252 10/13/23 1325 05/18/23 1336 HEMOGLOBIN A1C - [facility] % 7.7* 10.0* 11.5* No results for input(s): "MICROALBUMIN", "PROCRRATIO" in the last 56889 hours. ASSESSMENT/PLAN: Man was seen today for hospital follow-up. Diagnoses and all orders for this visit: BONILLA (acute kidney injury) ([facility]) Patient with recent admission for acute kidney injury in setting of nausea, vomiting and NSAID use.Creatinine peaked at 2.5 from a baseline of around 1. Creatinine is back to baseline. I have asked him to completely avoid NSAIDs. He can use Tylenol as needed for pain. Repeat BMP prior to next office visit Type 2 diabetes mellitus with hemoglobin A1c goal of less than 7.0% ([facility]) Blood sugar control is improving with recent A1c of 7.7. Discussed the need for optimal glycemic control to slow progressive CKD. Patient has albuminuria. He is on Entresto and Aldactone as well as Jardiance all of which can help with proteinuria. Other proteinuria Will continue monitor urine protein at the next office visit Follow Up: Return in about 6 months (around 11/06/2024). Alysha Cochran MD Nephrology, [address] [place] [address] This note was generated with the help of voice recognition software. Please excuse for errors. documented in this encounter Nursing Notes * Roya Garber RN - 05/06/2024 12:32 PM EDT Hospital follow up appointment today. Pt is unsure why he is here today. States he has gastroparesis and has constant abdominal pain . documented in this encounter Plan of Treatment Upcoming Encounters Date Type Department Care Team (Latest Contact Info) Description 05/14/2024 9:30 AM EDT Office Visit Pharmacy, [address] [place] [address] [place] [address] 05/29/2024 10:00 AM EDT Imaging [facility] 2nd Floor Cardiology, [address] [place] [phone] 05/29/2024 11:30 AM EDT Imaging [facility] 2nd Floor Cardiology, [place] [address] [facility] [place] [phone] 05/29/2024 12:30 PM EDT Imaging [facility] 2nd Floor Cardiology, [place] [address] [facility] [place] [address] 05/29/2024 2:30 PM EDT Imaging [address] Floor Cardiology, [place] [address] [facility] [place] [address] 06/07/2024 9:30 AM EDT Office Visit Gastroenterology [address] [place] [address] Marsha Loco CRNP [address] [place] [address] 06/19/2024 12:40 PM EDT Office Visit Family Medicine [address] [place] [phone] Dany Caruso MD [address] [place] [address] [place] [address] 06/20/2024 11:00 AM EDT Cardiac Studies Cardiac Studies, [facility] [address] [facility] [place] [address] 08/28/2024 8:20 AM EST Office Visit Family Medicine [address] [place] [phone] Dany Caruso MD [address] [place] [address] [place] [address] 09/05/2024 1:00 PM EST Hospital Encounter ENDO [facility], Endoscopy Room [facility] [address] [place] [phone] Yudith Root DO [address] [place] [address] 09/05/2024 1:00 PM EST - 09/05/2024 2:00 PM EST Surgery ENDO [facility], Endoscopy Room [facility] [address] [place] [phone] Yudith Root, DO [address] [place] [address] COLONOSCOPY FLEXIBLE PROXIMAL DIAGNOSTIC 09/30/2024 9:30 AM EST Office Visit Cardiology, [facility] [address] [place] [address] Joaquina Hernández CRNP [address] [place] [address] Scheduled Procedures Name Priority Associated Diagnoses Date/Ti [...] as of this encounter Visit Diagnoses Diagnosis BONILLA (acute kidney injury) (HCC)- Primary Acute kidney failure, unspecified Type 2 diabetes mellitus with hemoglobin A1c goal of less than 7.0% (HCC) Other proteinuria Abdominal pain Abdominal pain, unspecified site documented in this encounter Care Teams Purse Maker Relationship Specialty Start Date End Date Dany Caruso MD [address] [place] [address] [place] [phone] PCP - General Family Medicine 04/07/21 documented as of this encounter
--- OUTSIDE RECORDS SUMMARY | 2024-05-18 17:21 | External Medical Summary | Summary of Care ---
Author Name Unknown Organization [facility] Address [address] [place] [address] Phone [phone] Care Team Providers Care Studio Camera Operator Name Role Phone Dany Caruso MD Primary Care Provide r Reason for Visit * Reason Comments eRx-Medication Refill Encounter Details Date Type Department Care Team (Late st Contact Info) Description 05/17/2024 Refill Pharmacy, [address] [place] [address] Dany Caruso MD [address] [place] [address] [place] [address] Type 2 diabetes mellitus with autonomic neuropathy, unspecified whether longterm insulin use ([facility]) Allergies Active Allergy Reactions Criticality Noted Date Comments Metformin Diarrhea High 11/21/2023 Morphine 12/27/2013 Nausea, vomiting, diaphoresis Semaglutide Psych complications High 11/21/2023 Sulfa Antibiotics Itching 10/04/2011 documented as of this encounter (statuses as of 05/17/2024) Medications Medication Sig Dispensed Refills Start Date End Date Status MetaJureTouch Verio w/Device KitIndications:Typ e 2 diabetes mellitus with hemoglobin A1c goal of less than 7.0% ([facility]) Use to test once a [...] the tablet. 30 Tablet 5 11/29/2023 Active Spironolactone 25 MG Oral Tablet (Aldactone) Take 1 Tablet by mouth in the morning. 30 Tablet 5 12/19/2023 Active OneTouch Verio In Vitro Strip (Glucose Blood) Use as directed to test blood sugars up to three times daily DxE11.9 300 Strip 3 12/28/2023 Active OneTouch Delica Lancets 33G Use as directed to test blood sugars up to three times daily DxE11.9 300 Each 3 12/28/2023 Active Triamcinolone Acetonide 0.1 % External [...] 03/28/2024 Active Promethazine HCl 6.25 MG/5ML Oral SolutionIndication s:Gastroparesis Take 6.25 mg by mouth in the morning and 6.25 mg at noon and 6.25 mg in the evening. Take before meals. 240 mL 1 04/16/2024 Active Vitamin D3 1.25 MG (53285 UT) Oral CapsuleIndications :Vitamin D deficiency Take 1 Capsule by mouth once a week. 12 Capsule 04/16/2024 4 Active Insulin Glargine Solostar 100 UNIT/ML Subcutaneous Solution Pen-injector (Lantus SoloStar)Indicatio ns:Type 2 diabetes mellitus with hemoglobin A1c goal of less than 7.0% (HCC) Inject 25 Units under the skin daily. 04/16/2024 Active BD Pen Needle Imelda 2nd Gen 32G X 4 MM (Insulin Pen Needle)Indications :Type 2 diabetes mellitus with autonomic neuropathy, unspecified whether longterm insulin use (HCC) USE WITH INSULIN ONCE DAILY 100 Each 1 05/17/2024 Active BD Pen Needle Imelda U/F 32G X 4 MM (Insulin Pen Needle)Indications :Type 2 diabetes mellitus with autonomic neuropathy, unspecified whether longterm insulin use (HCC) Use with insulin once daily 100 Each 1 12/13/2023 4 Discontinued documented as of this encounter (statuses as of 05/17/2024) Active Problems Problem Noted Date Diagnosed Date [...] as of this encounter (statuses as of 05/17/2024) Resolved Problems Problem Noted Date Diagnosed Date Resolved Date Type 2 diabetes mellitus wit h autonomic neuropathy 06/29/2022 12/19/2022 Neuropathy 04/07/2021 12/19/2022 Diabetic ketoacidosis withou t coma associated with type 2 diabetes mellitus 04/07/2021 05/06/2021 Overview: 02/2021 Fatigue 11/13/2011 05/10/2022 Esophageal reflux 10/04/2011 04/07/2021 documented as of this encounter (statuses as of 05/17/2024) Immunizations Name Administration Dates Next Due Seasonal [...] encounter Miscellaneous Notes * Telephone Encounter - Amirah Collins, [facility] - 05/17/2024 11:19 AM EDT Signed Prescriptions: Disp Refills BD Pen Needle Imelda 2nd Gen 32G X 4 MM (Ins*100 Ea*1 Sig: USE WITH INSULIN ONCE DAILYAuthorizing Provider: Adeola CARUSO User: AMIRAH COLLINS documented in this encounter Plan of Treatment Upcoming Encounters Date Type Department Care Team (Latest Contact Info) Description 05/29/2024 10:00 AM EDT Imaging [facility] 2nd Floor Cardiology, [address] [place] [phone] 05/29/2024 11:30 AM EDT Imaging [address] Cardiology, [address] [place] [phone] 05/29/2024 12:30 PM EDT Imaging [address] Cardiology, [address] [place] [address] 05/29/2024 2:30 PM EDT Imaging [address] Cardiology, [address] [place] [address] 06/07/2024 9:30 AM EDT Office Visit Gastroenterology [address] [place] [address] Marsha Loco CRNP [address] [facility] [place] [address] 06/19/2024 12:40 PM EDT Office Visit Family Medicine [address] [phone] Dany Caruso MD [address] [place] [address] [place] [address] 06/20/2024 11:00 AM EDT Cardiac Studies Cardiac Studies, [address] [place] [address] 08/28/2024 8:20 AM EST Office Visit Family Medicine [address] [place] [phone] Dany Caruso MD [address] [place] [address] [place] [address] 09/05/2024 1:00 PM EST Hospital Encounter ENDO [facility], Endoscopy Room [facility] [address] [place] [phone] Yudith Root, [address] [place] [address] 09/05/2024 1:00 PM EST - 09/05/2024 2:00 PM EST Surgery ENDO [facility], Endoscopy Room [facility] [address] [place] [phone] Yudith Root DO [address] [place] [address] COLONOSCOPY FLEXIBLE PROXIMAL DIAGNOSTIC 09/30/2024 9:30 AM EST Office Visit Cardiology, [facility] [address] [place] [address] Joaquina Hernández CRNP [address] [place] [address] Scheduled Procedures Name Priority Associated Diagnoses Date/Ti [...] Depression Screening 08/31/2023 08/31/2022 Albumin/Creatinine Ratio 05/18/2024 07/27/2 023, 07/06/2022, 03/24/2022, Additional history exists Influenza [...] Diagnoses Diagnosis Type 2 diabetes mellitus with autonomic neuropathy, unspecified whether longterm insulin use (HCC) Abdominal pain Abdominal pain, unspecified site documented in this encounter Care Teams Studio Camera Operator Relationship Specialty Start Date End Date Dany Caruso MD [address] [place] [address] [place] [address] PCP - General Family Medicine 04/07/21 documented as of this encounter
--- OUTSIDE RECORDS SUMMARY | 2024-05-18 17:22 | External Medical Summary | Summary of Care ---
Author Name Unknown Organization [facility] Address [address] [facility] [address] Phone [phone] Care Team Providers Care Roll Line Operator Name Role Phone Dany Caruso MD Primary Care Provide r Reason for Visit * Reason Comments Appointment Encounter Details Date Type Department Care Team (Late st Contact Info) Description 04/11/2024 6:10 PM EDT Pharmacy Pharmacy, [address] [place] [address] [place] [address] Type 2 diabetes mellitus with hemoglobin A1c goal of less than 7.0% ([facility])* Allergies Active Allergy Reactions Criticality Noted Date Comments Metformin Diarrhea High 11/21/2023 Morphine 12/27/2013 Nausea, vomiting, diaphoresis Semaglutide Psych complications High 11/21/2023 Sulfa Antibiotics Itching 10/04/2011 documented as of this encounter (statuses as of 04/11/2024) Medications Medication Sig Dispensed Refills Start Date End Date Status OneTouch Verio w/Device KitIndications:Type 2 diabetes mellitus with hemoglobin A1c goal of less than 7.0% ([facility]) Use to test once a day [...] XL)Indications:HFrEF (heart failure with reduced ejection fraction) (HCC) [...] before breakfast. 30 Capsule 3 01/31/2024 Active Additional Information Patient not taking.Reported on 04/03/2024 Empagliflozin 10 MG Oral Tablet (Jardiance) Take [...] 03/28/2024 Active Promethazine HCl 6.25 MG/5ML Oral Solution Take by mouth 4 times a day as needed for Nausea. Active documented as of this encounter (statuses as of 04/11/2024) Active Problems Problem Noted Date Diagnosed Date [...] as of this encounter (statuses as of 04/11/2024) Resolved Problems Problem Noted Date Diagnosed Date Resolved Date Type 2 diabetes mellitus wit h autonomic neuropathy 06/29/2022 12/19/2022 Neuropathy 04/07/2021 12/19/2022 Diabetic ketoacidosis withou t coma associated with type 2 diabetes mellitus 04/07/2021 05/06/2021 Overview: 02/2021 Fatigue 11/13/2011 05/10/2022 Esophageal reflux 10/04/2011 04/07/2021 documented as of this encounter (statuses as of 04/11/2024) Immunizations Name Administration Dates Next Due Seasonal [...] as of this encounter Progress Notes * Nora Powers PHARM Tech - 04/11/2024 9:28 AM EDT Patient Phone Numbers Wave - Private Location App [phone] Spoke with patient to schedule [facility] appointment for diabetes management. Appointment scheduled as noted below. 04/16/2024 Thank you, Nora Powers Inhalation Therapy Aides Teacher [facility] 04/11/2024,9:28 AM documented in this encounter Plan of Treatment Upcoming Encounters Date Type Department Care Team (Latest Contact Info) Description 04/16/2024 9:00 AM EDT Office Visit Family Medicine [address] [phone] Dany Caruso MD [address] [place] [address] [place] [address] 04/16/2024 10:30 AM EDT Office Visit Pharmacy, [address] [place] [address] [place] [address] 04/24/2024 10:00 AM EDT Telemedicine Cardiology, [address] [address] [facility] Cardiology [address] [place] [address] 05/29/2024 10:00 AM EDT Imaging [facility] 2nd Floor Cardiology, [address] [place] [address] 05/29/2024 11:30 AM EDT Imaging [facility] 2nd Floor Cardiology, [address] [place] [address] 05/29/2024 12:30 PM EDT Imaging [facility] 2nd Floor Cardiology, [address] [address] 05/29/2024 2:30 PM EDT Imaging [facility] 2nd Floor Cardiology, [address] [address] 06/07/2024 9:30 AM EDT Office Visit Gastroenterology [address] [place] [address] Marsha Loco CRNP 132 [facility] [place] [address] 06/20/2024 11:00 AM EDT Cardiac Studies Cardiac Studies, [address] [place] [address] 08/28/2024 8:20 AM EST Office Visit [address] [place] [phone] Dany Caruso MD [address] [place] [address] [place] [address] 09/05/2024 1:00 PM EST Hospital Encounter ENDO [facility], Endoscopy Room [facility] [address] [place] [phone] Yudith Root DO [address] [place] [address] 09/05/2024 1:00 PM EST - 09/05/2024 2:00 PM EST Surgery ENDO [facility], Endoscopy Room [facility] [address] [place] [phone] Yudith Root DO [address] [place] [address] COLONOSCOPY FLEXIBLE PROXIMAL DIAGNOSTIC 09/30/2024 9:30 AM EST Office Visit Cardiology, [facility] [address] [place] [address] Joaquina Hernández CRNP [address] [place] [address] Scheduled Procedures Name Priority Associated Diagnoses Date/Ti [...] goal of less than 7.0% ([facility])- Primary Abdominal pain Abdominal pain, unspecified site documented in this encounter Care Teams Roll Line Operator Relationship Specialty Start Date End Date Dany Caruso MD [address] [place] [address] [place] [phone] PCP - General Family Medicine 04/07/21 documented as of this encounter
--- OUTSIDE RECORDS SUMMARY | 2024-05-18 17:22 | External Medical Summary | Summary of Care ---
Author Name Unknown Organization [facility] Address [address] [place] [address] Phone [phone] Care Team Providers Care Sales Effectiveness Manager Name Role Phone Dany Caruso MD Primary Care Provide r Reason for Visit * Reason Onset Date Comments Hospital Follow-Up 04/11/2024 Encounter Details Date Type Department Care Team (Late st Contact Info) Description 04/11/2024 Telephone General Internal Medicine [facility] [place] [address] [facility] [place] [address] Dany Caruso MD [address] [place] [address] [place] [address] Hospital Follow-Up Allergies Active Allergy Reactions Criticality Noted Date [...] less than 7.0% ([facility]) Use to test once a day E11.9 [...] mellitus with autonomic neuropathy, unspecified whether termite helper insulin use (HCC) Use with insulin once daily 100 Each 1 12/13/2023 Active Dulaglutide 0.75 MG/0.5ML Subcutaneous Solution Pen-injector (Razzulicity) Inject 0.75 mg under the skin once [...] s 01/04/2024 Does the household have a [facility] source of income? (Household - for ages [...] encounter Miscellaneous Notes * Telephone Encounter - Roya Garber RN - 04/11/2024 2:32 PM EDT Lab orders placed. Please alert pt to complete labs when you call to schedule HD appointment. * Telephone Encounter - Tello Srivastava RN - 04/11/2024 12:23 PM EDT Patient discharged from [facility] 04/01/2024. Nephrology consulted for BONILLA and Dr Mortensen recommends: Resume Entresto, then Jardiance at least 2 weeks apart after hospital discharge under supervision of PCP and/or cardiology and/or nephrology - Recommend basic metabolic panel to be drawn at PCP follow-up appointment -Recommend hospital discharge appointment with nephrology any physician provider diana alexander 2 to 4 weeks after discharge with nephro nurse to order basic metabolic panel, urinalysis with microscopy, urine electrolytes, protein to creatinine ratio, ACR, all to be done 48 hours to 72 hours prior to appointment. Please assist with these recommendations. Thank you documented in this encounter Plan of Treatment Upcoming Encounters Date Type Department Care Team (Latest Contact Info) Description 04/11/2024 6:10 PM EDT Pharmacy Pharmacy, [address] [place] [address] [place] [address] Type 2 diabetes mellitus with hemoglobin A1c goal of less than 7.0% (HCC)* 04/16/2024 9:00 AM EDT Office Visit Family Medicine [address] [place] [phone] Dany Caruso MD [address] [place] [address] [place] [address] 04/16/2024 10:30 AM EDT Office Visit Pharmacy, [address] [place] [address] [place] [address] 04/24/2024 10:00 AM EDT Telemedicine Cardiology, [place] [address] [address] [facility] [address] [address] 05/06/2024 10:40 AM EDT Office Visit Nephrology, Garrett Delmis [address] [place] [address] [place] [address] Alysha Cochran MD [address] [place] [address] 05/29/2024 10:00 AM EDT Imaging [address], [address] [place] [address] 05/29/2024 11:30 AM EDT Imaging [address], [address] [place] [address] 05/29/2024 12:30 PM EDT Imaging [address] Cardiology, [address] [place] [address] 05/29/2024 2:30 PM EDT Imaging [address] Cardiology, [address] [place] [address] 06/07/2024 9:30 AM EDT Office Visit Gastroenterology [address] [place] [address] Marsha Loco CRNP 132 [facility] [place] [address] 06/20/2024 11:00 AM EDT Cardiac Studies Cardiac Studies, [address] [place] [address] 08/28/2024 8:20 AM EST Office Visit Family Medicine [address] [place] [phone] Dany Caruso MD [address] [place] [address] [place] [address] 09/05/2024 1:00 PM EST Hospital Encounter ENDO [facility], Endoscopy Room [facility] 132 [facility] [place] [phone] Yudith Root DO [address] [place] [address] 09/05/2024 1:00 PM EST - 09/05/2024 2:00 PM EST Surgery ENDO [facility], Endoscopy Room [facility] [address] [place] [phone] Yudith Root DO [address] [place] [address] COLONOSCOPY FLEXIBLE PROXIMAL DIAGNOSTIC 09/30/2024 9:30 AM EST Office Visit Cardiology, [facility] [address] [place] [address] Joaquina Hernández CRNP [address] [place] [address] Scheduled Orders Name Type Priority Associated Diagnoses Orde r Schedule BASIC METABOLIC PANEL Lab Routine Other proteinuria BONILLA (acute kidney injury) ([facility]) Expected: 04/22/2024 (Approximate), Expires: 04/11/2025 URINALYSIS WITH MICROSCOPIC EXAM Lab Routine Other proteinuria BONILLA (acute kidney injury) ([facility]) Expected: 04/22/2024 (Approximate), Expires: 04/11/2025 ELECTROLYTES, RANDOM URINE Lab Routine Other proteinuria BONILLA (acute kidney injury) ([facility]) Expected: 04/22/2024 (Approximate), Expires: 04/11/2025 PROTEIN/ CREATININE RATIO, URINE Lab Routine Other proteinuria BONILLA (acute kidney injury) ([facility]) Expected: 04/22/2024 (Approximate), Expires: 04/11/2025 ALBUMIN / CREATININE RATIO, URINE Lab Routine Other proteinuria BONILLA (acute kidney injury) ([facility]) Expected: 04/22/2024 (Approximate), Expires: 04/11/2025 Scheduled Procedures Name Priority Associated Diagnoses Date/Ti [...] goal of less than 7.0% (HCC)- Primary Other proteinuria- Primary BONILLA (acute kidney injury) (HCC) Acute kidney failure, unspecified Abdominal pain Abdominal pain, unspecified site documented in this encounter Care Teams Sales Effectiveness Manager Relationship Specialty Start Date End Date Dany Caruso MD [address] [place] [address] [place] [phone] PCP - General Family Medicine 04/07/21 documented as of this encounter
--- OUTSIDE RECORDS SUMMARY | 2024-05-18 17:22 | External Medical Summary | Summary of Care ---
Author Name Unknown Organization [facility] Address [address] [place] [address] Phone [phone] Care Team Providers Care Deck Worker Name Role Phone Dany Caruso MD Primary Care Provide r Reason for Visit * Reason Comments eRx-Medication Refill Encounter Details Date Type Department Care Team (Late st Contact Info) Description 03/26/2024 Refill Family Medicine [address] [phone] Ryan Esquivel MD [address] [place] [address] [place] [address] Gastroparesis Allergies Active Allergy Reactions Criticality Noted Date Comments Morphine 12/27/2013 Nausea, vomiting, diaphoresis Sulfa Antibiotics Itching 10/04/2011 documented as of this encounter (statuses as of 03/28/2024) Medications Medication Sig Dispensed Refills Start Date End Date Status OneTouch Verio w/Device KitIndications:Typ e 2 diabetes mellitus with hemoglobin A1c goal of less than 7.0% ([facility]) Use to test once a day [...] diabetes mellitus with autonomic neuropathy, unspecified whether intermediate card tender insulin use (HCC) Use with insulin once daily 100 Each 1 12/13/2023 Active Dulaglutide 0.75 MG/0.5ML Subcutaneous Solution Pen-injector ([employer]) Inject 0.75 mg under the skin [...] of less than 7.0% ([facility]) Inject 55 Units under the skin [...] before breakfast. 30 Capsule 3 01/31/2024 Active Empagliflozin 10 MG Oral Tablet (Jardiance) [...] MINS BEFORE MEALS 90 Tablet 03/28/2024 Active Metoclopramide HCl 5 MG Oral Tablet (Reglan)Indication s:Gastroparesis TAKE 1 TABLET BY MOUTH IN THE MORNING, 1 TAB AT NOON AND 1 TAB BEFORE BEDTIME. 30 MINS BEFORE MEALS 90 Tablet 02/15/2024 Discontinued documented as of this encounter (statuses as of 03/28/2024) Active Problems Problem Noted Date Diagnosed Date [...] as of this encounter (statuses as of 03/28/2024) Resolved Problems Problem Noted Date Diagnosed Date Resolved Date Type 2 diabetes mellitus wit h autonomic neuropathy 06/29/2022 12/19/2022 Neuropathy 04/07/2021 12/19/2022 Diabetic ketoacidosis withou t coma associated with type 2 diabetes mellitus 04/07/2021 05/06/2021 Overview: 02/2021 Fatigue 11/13/2011 05/10/2022 Esophageal reflux 10/04/2011 04/07/2021 documented as of this encounter (statuses as of 03/28/2024) Immunizations Name Administration Dates Next Due Seasonal [...] Telephone Encounter - Dany Caruso MD - 03/28/2024 8:20 AM EDT Signed Prescriptions: Disp Refills Metoclopramide HCl 5 MG Oral Tablet (Lara*90 Tab*0 Sig: TAKE 1 TABLET BY MOUTH IN THE MORNING, 1 TAB AT NOON AND 1 TAB BEFORE BEDTIME. 30 MINS BEFORE MEALS Authorizing Provider: DANY CARUSO * Telephone Encounter - Connie Maya LPN - 03/28/2024 8:05 AM EDTPending Prescriptions: Disp Refills Metoclopramide HCl 5 MG Oral Tablet [Pharm*90 Tab*0 Sig: TAKE 1 TABLET BY MOUTH IN THE MORNING, 1 TAB AT NOON AND 1 TAB BEFORE BEDTIME. 30 MINS BEFORE MEALS * Telephone Encounter - Connie Maya LPN - 03/28/2024 8:04 AM EDT Pending Prescriptions: Disp Refills Metoclopramide HCl 5 MG Oral Tablet (Regl*90 Tab*0 Sig: TAKE 1 TABLET BY MOUTH IN THE MORNING, 1 TAB AT NOON AND 1 TAB BEFORE BEDTIME. 30 MINS BEFORE MEALS Last Visit: 02/27/2024 (in office), Visit date not found (telemedicine) Next Visit: 08/28/2024 Last date the medication was ordered: 02/15/24 Patient Active Problem List Diagnosis Controlled substance agreement signed Type 2 diabetes mellitus with hemoglobin A1c goal of less than 7.0% (HCC) HTN, goal below 130/80 Other proteinuria High triglycerides Gastroparesis HFrEF (heart failure with reduced ejection fraction) (HCC) Acute pulmonary embolism without acute cor pulmonale (HCC) History of alcohol abuse Gastro-esophageal reflux disease without esophagitis Alcohol abuse, uncomplicated Neuropathy Other acute pulmonary embolism without acute cor pulmonale (HCC) Type 2 diabetes mellitus with autonomic neuropathy (HCC) Labs: Lab Results Component Value Date/Time CREATININE - [facility] 1.3 (H) 03/07/2024 11:16 AM CREATININE - [facility] 1.1 09/08/2016 02:32 PM CREATININE, RANDOM URINE - [facility] 50 05/18/2023 01:36 PM Lab Results Component Value Date/Time POTASSIUM - [facility] 4.8 03/07/2024 11:16 AM POTASSIUM - [facility] 4.3 09/08/2016 02:32 PM POTASSIUM, RANDOM URINE - [facility] 28.8 06/09/2015 03:06 PM Lab Results Component Value Date/Time TSH - [facility] 2.79 06/09/2015 03:06 PM Lab Results Component Value Date/Time LDL CHOLESTEROL (CALCULATED) - [facility] 34 03/07/2024 11:16 AM LDL CHOLESTEROL (CALCULATED) - [facility] 63 05/18/2023 01:36 PM LDL CHOLESTEROL (DIRECT MEASURE) - [facility] 50 12/13/2023 09:40 AM LDL CHOLESTEROL (DIRECT MEASURE) - [facility] 101 10/13/2023 01:25 PM Lab Results Component Value Date/Time ALT - [facility] 19 05/10/2022 08:08 AM ALT - [facility] 31 09/08/2016 02:32 PM Hemoglobin AIC Results: Lab Results Component Value Date/Time HEMOGLOBIN A1C - [facility] 7.7 (H) 02/19/2024 12:52 PM HEMOGLOBIN A1C - [facility] 10.0 (H) 10/13/2023 01:25 PM HEMOGLOBIN A1C - [facility] 11.5 (H) 05/18/2023 01:36 PM HEMOGLOBIN A1C - [facility] 6.0 06/09/2015 03:06 PM * Telephone Encounter - Sage Vee - 03/26/2024 7:10 PM EDTPending Prescriptions: Disp Refills Metoclopramide HCl 5 MG Oral Tablet [Pharm*90 Tab*0 Sig: TAKE 1TABLET BY MOUTH IN THE MORNING, 1 TAB AT NOON AND 1 TAB BEFORE BEDTIME. 30 MINS BEFORE MEALS-------- documented in this encounter Plan of Treatment Upcoming Encounters Date Type Department Care Team (Late st Contact Info) Description 04/09/2024 10:00 AM EDT Telemedicine Cardiology, [place] [address] [place] [address] [facility] Cardiology 400 [facility] [place] [address] 06/07/2024 9:30 AM EDT Office Visit Gastroenterology [address] [place] [address] Marsha Loco CRNP 132 [place] [address] 06/20/2024 11:00 AM EDT Cardiac Studies Cardiac Studies, [facility] [address] [place] [address] 07/04/2024 1:20 PM EDT Office Visit Gastroenterology, [facility] 132 [place] [address] Angel Eaton MD 132 [place] [address] 08/28/2024 8:20 AM EST Office Visit Family Medicine [address] [place] [phone] Dany Caruso MD [address] [place] [address] [place] [address] 09/30/2024 9:30 AM EST Office Visit Cardiology, [facility] [address] [place] [address] Joaquina Hernández CRNP [address] [place] [address] Health Maintenance Due Date Last Done Comments [...] Gastroparesis documented in this encounter Care Teams Deck Worker Relationship Specialty Start Date End Date Dany Caruso MD [address] [place] [address] [place] [phone] PCP - General Family Medicine 04/07/21 documented as of this encounter
--- OUTSIDE RECORDS SUMMARY | 2024-05-18 17:22 | External Medical Summary | Summary of Care ---
Author Name Unknown Organization [facility] Address [address] [place] [address] Phone [phone] Care Team Providers Care Extrusion Line Operator Name Role Phone Dany Caruso MD Primary Care Provide r Reason for Visit * Reason Comments Outpatient Testing Encounter Details Date Type Department Care Team (Late st Contact Info) Description 04/16/2024 10:20 AM EDT Laboratory Laboratory [address] [place] [phone] [place] [address] Arrived Allergies Active Allergy Reactions Criticality Noted Date Comments Metformin Diarrhea High 11/21/2023 Morphine 12/27/2013 Nausea, vomiting, diaphoresis Semaglutide Psych complications High 11/21/2023 Sulfa Antibiotics Itching 10/04/2011 documented as of this encounter (statuses as of 04/16/2024) Medications Medication Sig Dispensed Refills Start Date End Date Status ThermoCeramixTouch Verio w/Device KitIndications:Type 2 diabetes mellitus with hemoglobin A1c goal of less than 7.0% ([facility]) Use to test once a day E11.9 [...] Active Dulaglutide 0.75 MG/0.5ML Subcutaneous Solution Pen-injector ([employer]) Inject 0.75 mg under the skin [...] ejection fraction) ([facility]) Take 1.5 Tablets by mouth in the [...] 1 04/16/2024 Active Vitamin D3 1.25 MG (88431 UT) Oral CapsuleIndications:V itamin D deficiency Take 1 Capsule by mouth once a week. 12 Capsule 04/16/2024 07/15/2024 Active Insulin Glargine Solostar 100 UNIT/ML Subcutaneous Solution Pen-injector (Lantus SoloStar)Indications :Type 2 diabetes mellitus with hemoglobin A1c goal of less than 7.0% ([facility]) Inject 25 Units under the skin daily. 04/16/2024 Active documented as of this encounter (statuses as of 04/16/2024) Active Problems Problem Noted Date Diagnosed Date [...] as of this encounter (statuses as of 04/16/2024) Resolved Problems Problem Noted Date Diagnosed Date Resolved Date Type 2 diabetes mellitus wit h autonomic neuropathy 06/29/2022 12/19/2022 Neuropathy 04/07/2021 12/19/2022 Diabetic ketoacidosis withou t coma associated with type 2 diabetes mellitus 04/07/2021 05/06/2021 Overview: 02/2021 Fatigue 11/13/2011 05/10/2022 Esophageal reflux 10/04/2011 04/07/2021 documented as of this encounter (statuses as of 04/16/2024) Immunizations Name Administration Dates Next Due Seasonal [...] Department Care Team (Latest Contact Info) Description 04/24/2024 10:00 AM EDT Telemedicine Cardiology, [place] [address] [place] [address] [facility] Cardiology [address] [place] [address] 05/06/2024 10:40 AM EDT Office Visit Nephrology, [facility] 200 [facility] [place] [address] Alysha Cochran MD [address] [place] [phone] 05/14/2024 9:30 AM EDT Office Visit Pharmacy, [address] [place] [address] [place] [address] 05/29/2024 10:00 AM EDT Imaging [facility] 2nd Floor Cardiology, [address] [address] 05/29/2024 11:30 AM EDT Imaging [address] Floor Cardiology, [address] [address] 05/29/2024 12:30 PM EDT Imaging [facility] 2nd Floor Cardiology, [address] [place] [address] 05/29/2024 2:30 PM EDT Imaging [address] Cardiology, [address] [address] 06/07/2024 9:30 AM EDT Office Visit Gastroenterology [address] [place] [address] Marsha Loco, [facility] 132 [facility] [place] [address] 06/19/2024 12:40 PM EDT Office Visit Family Medicine [address] [place] [phone] Dany Caruso MD [address] [place] [address] [place] [address] 06/20/2024 11:00 AM EDT Cardiac Studies Cardiac Studies, [address] [place] [address] 08/28/2024 8:20 AM EST Office Visit Family Medicine [address] [place] [phone] Dany Caruso MD [address] [place] [address] [place] [address] 09/05/2024 1:00 PM EST Hospital Encounter ENDO [facility], Endoscopy Room [facility] [address] [place] [phone] Yudith Root, [address] [place] [address] 09/05/2024 1:00 PM EST - 09/05/2024 2:00 PM EST Surgery ENDO [facility], Endoscopy Room [facility] [address] [place] [phone] Yudith Root DO [address] [place] [address] COLONOSCOPY FLEXIBLE PROXIMAL DIAGNOSTIC 09/30/2024 9:30 AM EST Office Visit Cardiology, [facility] [address] [place] [address] Joaquina Hernández CRNP [address] [place] [address] Scheduled Procedures Name Priority Associated Diagnoses Date/Ti [...] filedocumented as of this encounter Care Teams Extrusion Line Operator Relationship Specialty Start Date End Date Dany Caruso MD [address] [place] [address] [place] [phone] PCP - General Family Medicine 04/07/21 documented as of this encounter
--- OUTSIDE RECORDS SUMMARY | 2024-05-18 17:22 | External Medical Summary | Summary of Care ---
Author Name Unknown Organization [facility] Address [address] [place] [address] Phone [phone] Care Team Providers Care Reweaver Name Role Phone Dany Caruso MD Primary Care Provide r Reason for Visit * Reason Comments Dosage Adjustment In Person (Anticoag Cl inic) Diabetes Follow-Up Encounter Details Date Type Department Care Team (Late st Contact Info) Description 04/16/2024 10:30 AM EDT Office Visit Pharmacy, [address] [place] [address] [place] [address] Type 2 diabetes mellitus with hemoglobin A1c goal of less than 7.0% ([facility])* Allergies Active Allergy Reactions Criticality Noted Date Comments Metformin Diarrhea High 11/21/2023 Morphine 12/27/2013 Nausea, vomiting, diaphoresis Semaglutide Psych complications High 11/21/2023 Sulfa Antibiotics Itching 10/04/2011 documented as of this encounter (statuses as of 04/16/2024) Medications Medication Sig Dispensed Refills Start Date End Date Status OneTouch Verio w/Device KitIndications:Type 2 diabetes mellitus with hemoglobin A1c goal of less than 7.0% ([facility]) Use to test once a day E11.9 1 Kit 03/23/2022 Active Magnesium Oxide (Elemental) 400 MG Oral Tablet Take by mouth 400 mg daily . 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 12 Capsule 04/16/2024 07/15/2024 Active Insulin Glargine Solostar 100 UNIT/ML Subcutaneous Solution Pen-injector (Lantus SoloStar)Indications :Type 2 diabetes mellitus with hemoglobin A1c goal of less than 7.0% ([facility]) Inject 25 Units under the skin [...] this encounter Progress Notes * Clara Collins, [facility] - 04/16/2024 10:14 AM EDT Medication Therapy Disease Management [facility] - Diabetes Management Progress Note Man Day, identified by name and date of , is a 43 year old male being seen for diabetes management/education. Patient presents for return diabetic visit. DIABETES: Current diabetic medications: DEC Lantus 45 units daily Trulicity 0.75mg once weekly START Jardiance 10mg daily STOP Glipizide ER 10mg daily eGFR > 90 as of 12/12/23 Medication Injection Site: Abdomen Lifestyle: Diet: discussed below Glucose Review/SMBG: Not available Hypoglycemia: Does your blood sugar go below 70 mg/dL? Denies Hyperglycemia symptoms present: none Recent Labs Units 02/19/24 1252 10/13/23 1325 05/18/23 1336 HEMOGLOBIN A1C - [facility] % 7.7* 10.0* 11.5* Recent Labs Units 03/07/24 1116 02/19/24 1252 01/31/24 1304 ESTIMATED GLOMERULAR FILTRATION RATE - [facility] mL/min 73 80 70 CREATININE - [facility] mg/dL 1.3* 1.2 1.3* HYPERTENSION: Patient on ACEi/ARB: yes BP Readings from Last 3 Encounters: 04/16/24 148/90 04/03/24 126/88 03/20/24 118/74 Blood pressure at goal: yes HYPERLIPIDEMIA: Patient [...] 19+ 3-dose series) Never done COVID-19 Vaccine () Never done Depression Screening 08/31/2023 Albumin/Creatinine Ratio 05/18/2024 ASSESSMENT & PLAN: ICD-10-CM 1. Type 2 diabetes mellitus with hemoglobin A1c goal of less than 7.0% (HCC) E11.9 Considerations: Gastroparesis HF - avoid Actos Did not tolerate metformin: severe abd pain Dexcom G7 sensor - connected to Dexcom Clarity, obtaining through pharmacy Patient recently admitted to [facility] from 03/24-04/01. Admitted for intractable N/V d/t gastroparesis. GIconsult placed. Patient currently wearing a Dexcom, however unable to share data with clinic as his phone plan was recently shut off. Plans to obtain money and restart soon. PCP agreeable with stopping Trulicity due to gastroparesis. Discussed gastroparesis diet. Patient expressed understanding. Patient was taking decreased Lantus dose upon hospital discharge due to lackof PO intake. PCP increased Lantus slightly upon stopping Trulicity. Currently still on Jardiance, updated BMP pending to assess if able to be continued at this time. Patient aware to monitor blood sugars closely. Will return to clinic x1 month to reasesss. Aware tocontact sooner with any persistent hypo- or hyper-glycemia. Patient very frustrated with current health issues. Notes to having a lot of anger about his quality of life. Is not interested in medication or therapy at this time. Patient is agreeable to SMBG daily with CGM (DexcomG7) Patient aware to contact clinic if any hypoglycemia before next visit. MEDICATION CHANGES: See below Diabetic Medications: Lantus 25 units daily Jardiance 10mg daily eGFR 73 as of 03/07/24 HEALTH MAINTENANCE INTERVENTIONS: Deferred d/t time constraints FOLLOW UP: Return to clinic in 4 weeks 05/14/2024 Clara Collins [facility] Clinical Pharmacist - Magnetic Locater Medication Therapy Management Clinic 04/16/2024, 10:14 AM documented in this encounter Plan of Treatment Upcoming Encounters Date Type Department Care Team (Latest Contact Info) Description 04/24/2024 10:00 AM EDT Telemedicine Cardiology, [place] [address] [place] [address] [facility] Cardiology [address] [place] [address] 05/06/2024 10:40 AM EDT Office Visit Nephrology, [address] [place] [address] Alysha Cochran MD [address] [place] [address] 05/14/2024 9:30 AM EDT Office Visit Pharmacy, [address] [place] [address] [place] [address] 05/29/2024 10:00 AM EDT Imaging [facility] 2nd Floor Cardiology, [address] [place] [address] 05/29/2024 11:30 AM EDT Imaging [address] Cardiology, [place] 132 [facility] [place] [address] 05/29/2024 12:30 PM EDT Imaging [address], [address] [place] [address] 05/29/2024 2:30 PM EDT Imaging [address], [place] 132 [facility] [place] [address] 06/07/2024 9:30 AM EDT Office Visit Gastroenterology [address] [place] [address] Marsha Loco CRNP [address] [place] [address] 06/19/2024 12:40 PM EDT Office Visit Family Medicine [address] [place] [phone] Dany Caruso MD [address] [place] [address] [place] [address] 06/20/2024 11:00 AM EDT Cardiac Studies Cardiac Studies, [facility] 132 [facility] [place] [address] 08/28/2024 8:20 AM EST Office Visit Family Medicine [address] [place] [phone] Dany Caruso MD [address] [place] [address] [place] [address] 09/05/2024 1:00 PM EST Hospital Encounter [facility] [place] [phone] Yudith Root DO [address] [place] [address] 09/05/2024 1:00 PM EST - 09/05/2024 2:00 PM EST Surgery ENDO [facility], Endoscopy Room [facility] [address] [place] [phone] Yudith Root DO [address] [place] [address] COLONOSCOPY FLEXIBLE PROXIMAL DIAGNOSTIC 09/30/2024 9:30 AM EST Office Visit Cardiology, [facility] [address] [place] [address] Joaquina Hernández CRNP [address] [place] [address] Scheduled Procedures Name Priority Associated Diagnoses Date/Ti [...] goal of less than 7.0% (HCC)- Primary Abdominal pain Abdominal pain, unspecified site documented in this encounter Care Teams Reweaver Relationship Specialty Start Date End Date Dany Caruso MD [address] [place] [address] [place] [address] PCP - General Family Medicine 04/07/21 documented as of this encounter
--- OUTSIDE RECORDS SUMMARY | 2024-05-18 17:22 | External Medical Summary | Summary of Care ---
Author Name Unknown Organization [facility] Address [address] [place] [address] Phone [phone] Care Team Providers Care National Opelint Analyst Name Role Phone Dany Caruso MD Primary Care Provide r Encounter Details Date Type Department Care Team (Late st Contact Info) Description 03/26/2024 Orders Only Nephrology, [place] [address] [facility] [place] [address] Aye Mortensen MD [address] [place] [address] Allergies Active Allergy Reactions Criticality Noted Date Comments Morphine 12/27/2013 Nausea, vomiting, diaphoresis Sulfa Antibiotics Itching 10/04/2011 documented as of this encounter (statuses as of 03/26/2024) Medications Medication Sig Dispensed Refills Start Date [...] 11/28/2023 Active Ezetimibe 10 MG Oral Tablet (Zetia)Indications:Hy perlipidemia with target LDL less than 70 Take 1 Tablet by mouth in the morning. 90 Tablet 11/28/2023 Active Fenofibrate 145 MG Oral Tablet (Tricor)Indications:H [...] Active Dulaglutide 0.75 MG/0.5ML Subcutaneous Solution Pen-injector ([employer]) Inject 0.75 mg under the skin once [...] Solostar 100 UNIT/ML Subcutaneous Solution Pen-injector (Lantus SoloStar)Indications: Type 2 diabetes mellitus with hemoglobin A1c goal of less than 7.0% ([facility]) Inject 55 Units under the skin daily. 45 mL 01/12/2024 Active Triamcinolone Acetonide 0.1 % External Cream (Aristocort)Indicatio ns:Contact dermatitis, unspecified contact dermatitis type, unspecified trigger [...] 01/24/2024 Active Linzess 145 MCG Oral Capsule (linaCLOtide)Indicati ons:Chronic constipation Take 1 Capsule by mouth daily before breakfast. 30 Capsule 3 01/31/2024 Active Metoclopramide HCl 5 MG Oral Tablet (Reglan)Indications:G astroparesis TAKE 1 TABLET BY MOUTH IN THE MORNING, 1 TAB AT NOON AND 1 TAB BEFORE BEDTIME. 30 MINS BEFORE MEALS 90 Tablet 02/15/2024 Active Empagliflozin 10 MG Oral Tablet (Jardiance) Take 1 Tablet by mouth in the morning. 90 Tablet 3 02/21/2024 Active Gabapentin 300 MG Oral Capsule (Neurontin)Indication s:Neuropathy Take 1 Capsule by mouth in the morning and 1 Capsule at noon and 1 Capsule before bedtime. 90 Capsule 3 03/20/2024 Active documented as of this encounter (statuses as of 03/26/2024) Active Problems Problem Noted Date Diagnosed Date [...] as of this encounter (statuses as of 03/26/2024) Resolved Problems Problem Noted Date Diagnosed Date Resolved Date Type 2 diabetes mellitus wit h autonomic neuropathy 06/29/2022 12/19/2022 Neuropathy 04/07/2021 12/19/2022 Diabetic ketoacidosis withou t coma associated with type 2 diabetes mellitus 04/07/2021 05/06/2021 Overview: 02/2021 Fatigue 11/13/2011 05/10/2022 Esophageal reflux 10/04/2011 04/07/2021 documented as of this encounter (statuses as of 03/26/2024) Immunizations Name Administration Dates Next Due Seasonal [...] Care Team (Late st Contact Info) Description 03/28/2024 9:00 AM EDT Office Visit Pharmacy, [address] [place] [address] [place] [address] 04/01/2024 8:40 AM EDT Office Visit Family Medicine [address] [place] [phone] Linda Vale CRNP [address] [place] [address] [place] [address] 04/09/2024 10:00 AM EDT Telemedicine Cardiology, [address] [place] [address] [email or web address] Cardiology [address] [place] [address] [place] [address] 06/07/2024 9:30 AM EDT Office Visit Gastroenterology [address] [place] [address] Marsha Loco CRNP [address] [place] [address] 06/20/2024 11:00 AM EDT Cardiac Studies Cardiac Studies, [facility] [address] [place] [address] 07/04/2024 1:20 PM EDT Office Visit Gastroenterology, [facility] [address] [place] [address] Angel Eaton MD [address] [place] [address] 08/28/2024 8:20 AM EST Office Visit Family Medicine [address] [place] [phone] Dany Caruso MD [address] [place] [address] [place] [address] 09/30/2024 9:30 AM EST Office Visit Cardiology, [facility] [place] [address] Joaquina Hernández CRNP [address] [place] [address] Pending Results Name Type Priority Associated Diagnoses Date /Time XR CHEST 1 VIEW Medical Imaging Routine 11/2023 Health Maintenance Due Date Last Done Comments [...] filedocumented as of this encounter Care Teams National Opelint Analyst Relationship Specialty Start Date End Date Dany Caruso MD [address] [place] [address] [place] [address] PCP - General Family Medicine 04/07/21 documented as of this encounter
--- OUTSIDE RECORDS SUMMARY | 2024-05-18 17:22 | External Medical Summary | Summary of Care ---
Author Name Unknown Organization [facility] Address [address] [place] [address] Phone [phone] Care Team Providers Care Tip Bander Name Role Phone Dany Caruso MD Primary Care Provide r Reason for Visit * Reason Onset Date Comments Appointment 01/15/2024 Scheuled leilani carolina e visit for 01/18 at 1 pm with Eileen Ellis Encounter Details Date Type Department Care Team (Late st Contact Info) Description 01/15/2024 Telephone Care Coordination and Integration [address], [place] [phone] Roya Lockwood, [facility] [address], [place] [phone] Appointment (Scheuled leilani home visit for 3... Allergies Active Allergy Reactions Criticality Noted Date Comments Metformin Diarrhea High 11/21/2023 Morphine 12/27/2013 Nausea, vomiting, diaphoresis Semaglutide Psych complications High 11/21/2023 Sulfa Antibiotics Itching 10/04/2011 documented as of this encounter (statuses as of 04/15/2024) Medications Medication Sig Dispensed Refills Start Date End Date Status OneTouch Verio w/Device KitIndications:Type 2 diabetes mellitus with hemoglobin A1c goal of less than 7.0% ([facility]) Use to test once a day [...] Active Dulaglutide 0.75 MG/0.5ML Subcutaneous Solution Pen-injector ([employer]) Inject 0.75 mg under the skin once [...] area: upper back. 60 g 01/12/2024 Active documented as of this encounter (statuses as of 04/15/2024) Active Problems Problem Noted Date Diagnosed Date [...] as of this encounter (statuses as of 04/15/2024) Resolved Problems Problem Noted Date Diagnosed Date Resolved Date Type 2 diabetes mellitus wit h autonomic neuropathy 06/29/2022 12/19/2022 Neuropathy 04/07/2021 12/19/2022 Diabetic ketoacidosis withou t coma associated with type 2 diabetes mellitus 04/07/2021 05/06/2021 Overview: 02/2021 Fatigue 11/13/2011 05/10/2022 Esophageal reflux 10/04/2011 04/07/2021 documented as of this encounter (statuses as of 04/15/2024) Immunizations Name Administration Dates Next Due Seasonal [...] 9:00 AM EDT Office Visit Family Medicine [address] [place] [phone] Dany Caruso MD [address] [place] [address] [place] [address] 04/16/2024 10:30 AM EDT Office Visit Pharmacy, [address] [place] [address] [place] [address] 04/24/2024 10:00 AM EDT Telemedicine Cardiology, [place] [address] [place] [address] [facility] Cardiology [address] [facility] [place] [address] 05/06/2024 10:40 AM EDT Office [place] [address] [place] [address] Alysha Cochran MD 400 [facility] [place] [address] 05/29/2024 10:00 AM EDT Imaging [facility] 2nd Floor Cardiology, [place] [facility] [place] [address] 05/29/2024 11:30 AM EDT Imaging [facility] 2nd Floor Cardiology, [place] [facility] [place] [address] 05/29/2024 12:30 PM EDT Imaging [facility] 2nd Floor Cardiology, [place] [facility] [place] [address] 05/29/2024 2:30 PM EDT Imaging [facility] 2nd Floor Cardiology, [place] [facility] [place] [address] 06/07/2024 9:30 AM EDT Office Visit Gastroenterology [address] [place] [address] Marsha Loco CRNP [address] [place] [address] 06/20/2024 11:00 AM EDT Cardiac Studies Cardiac Studies, [facility] [address] [place] [address] 08/28/2024 8:20 AM EST Office Visit Family Medicine [address] [place] [phone] Dany Caruso MD [address] [place] [address] [place] [address] 09/05/2024 1:00 PM EST Hospital Encounter ENDO [facility], Endoscopy Room [facility] [address] [place] [phone] Yudith Root DO [address] [place] [address] 09/05/2024 1:00 PM EST - 09/05/2024 2:00 PM EST Surgery ENDO [facility], Endoscopy Room [facility] [address] [place] [phone] Yudith Root DO [address] [place] [address] COLONOSCOPY FLEXIBLE PROXIMAL DIAGNOSTIC 09/30/2024 9:30 AM EST Office Visit Cardiology, [facility] [address] [place] [address] Joaquina Hernández CRNP [address] [place] [address] Scheduled Procedures Name Priority Associated Diagnoses Date/Ti [...] filedocumented as of this encounter Care Teams Tip Bander Relationship Specialty Start Date End Date Dany Caruso MD [address] [place] [address] [place] [address] PCP - General Family Medicine 04/07/21 documented as of this encounter
--- OUTSIDE RECORDS SUMMARY | 2024-05-18 17:22 | External Medical Summary | Summary of Care ---
Author Name Unknown Organization [facility] Address [address] [place] [address] Phone [phone] Care Team Providers Care Rn Outpatient Surgery Name Role Phone Dany Caruso MD Primary Care Provide r Reason for Visit * Reason Comments Outpatient Testing Encounter Details Date Type Department Care Team (Late st Contact Info) Description 04/16/2024 10:20 AM EDT Laboratory Laboratory [address] [place] [phone] [place] [address] Arrived Allergies Active Allergy Reactions Criticality Noted Date Comments Metformin Diarrhea High 11/21/2023 Morphine 12/27/2013 Nausea, vomiting, diaphoresis Semaglutide Psych complications High 11/21/2023 Sulfa Antibiotics Itching 10/04/2011 documented as of this encounter (statuses as of 04/16/2024) Medications Medication Sig Dispensed Refills Start Date End Date Status booskTouch Verio w/Device KitIndications:Type 2 diabetes mellitus with [...] diabetes mellitus with autonomic neuropathy, unspecified whether retirement insulin use (HCC) Use with insulin once daily 100 Each 1 12/13/2023 Active Dulaglutide 0.75 MG/0.5ML Subcutaneous Solution Pen-injector ([employer]) Inject 0.75 mg under the skin once [...] (heart failure with reduced ejection fraction) ([facility]) Take 1.5 Tablets by [...] 1 04/16/2024 Active Vitamin D3 1.25 MG (95723 UT) Oral CapsuleIndications:V itamin D deficiency Take 1 Capsule by mouth once a week. 12 Capsule 04/16/2024 07/15/2024 Active Insulin Glargine Solostar 100 UNIT/ML Subcutaneous Solution Pen-injector (Lantus SoloStar)Indications :Type 2 diabetes mellitus with hemoglobin A1c goal of less than 7.0% ([facility]) Inject 25 Units under the [...] Description 04/24/2024 10:00 AM EDT Telemedicine Cardiology, [place] [address] [place] [address] [facility] Card[facility] [address] [place] [address] 05/06/2024 10:40 AM EDT Office Visit Nephrology, [facility] 200 [facility] [place] [address] Alysha Cochran MD [address] [place] [phone] 05/14/2024 9:30 AM EDT Office Visit Pharmacy, [address] [place] [address] [place] [address] 05/29/2024 10:00 AM EDT Imaging [facility] 2nd Floor Cardiology, [address] [place] [address] 05/29/2024 11:30 AM EDT Imaging [address] Floor Cardiology, [address] [place] [address] 05/29/2024 12:30 PM EDT Imaging [facility] 2nd Floor Cardiology, [address] [place] [address] 05/29/2024 2:30 PM EDT Imaging [address] Cardiology, [address] [place] [address] 06/07/2024 9:30 AM EDT Office Visit Gastroenterology [address] [place] [address] Marsha Loco, [facility] 132 [facility] [place] [address] 06/19/2024 12:40 PM EDT Office Visit Family Medicine [address] [place] [phone] Dany Caruso MD [address] [place] [address] [place] [address] 06/20/2024 11:00 AM EDT Cardiac Studies Cardiac Studies, [address] [place] [address] 08/28/2024 8:20 AM EST Office Visit Family Medicine [address] [place] [phone] Dany Caruso MD [address] [place] [address] [place] [address] 09/05/2024 1:00 PM EST Hospital Encounter ENDO [facility], Endoscopy Room [facility] [address] [place] [phone] Yudith Root, [address] [place] [address] 09/05/2024 1:00 PM EST - 09/05/2024 2:00 PM EST Surgery ENDO [facility], Endoscopy Room [facility] [address] [place] [phone] Yudith Root DO [address] [place] [address] COLONOSCOPY FLEXIBLE PROXIMAL DIAGNOSTIC 09/30/2024 9:30 AM EST Office Visit Cardiology, [facility] [address] [place] [address] Joaquina Hernández CRNP [address] [place] [address] Scheduled Procedures Name Priority Associated Diagnoses Date/Ti [...] filedocumented as of this encounter Care Teams Rn Outpatient Surgery Relationship Specialty Start Date End Date Dany Caruso MD [address] [place] [address] [place] [phone] PCP - General Family Medicine 04/07/21 documented as of this encounter
--- OUTSIDE RECORDS SUMMARY | 2024-05-18 17:22 | External Medical Summary | Summary of Care ---
Author Name Unknown Organization [facility] Address [address] [place] [address] Phone [phone] Care Team Providers Care Talent Acquisition Assistant Name Role Phone Dany Caruso MD Primary Care Provide r Reason for Visit * Reason Comments NEW PATIENT * Evaluate & Treat - Unlimited Visits (Within 10 days (routine)) - Authorized Specialty Diagnoses / Procedures Referred By Grant joseph Referred To Contact Gastroenterology Diagnoses Gastroparesis Dany Caruso MD [address] [place] [address] [place] [id number] Referral ID Status Reason Start Date Expiration Date Visits Requested Visits Authorized [id number] Authorized Specialty Services Required 02/19/2024 [id number] Encounter Details Date Type Department Care Team (Late st Contact Info) Description 04/03/2024 10:40 AM EDT Office Visit Gastroenterology, Echo [address] [place] [address] Ayala Chiu, [address] [place] [address] Gastroparesis*; Type 2 diabetes mellitus with diabetic autonomic neuropathy, with long-term current use of insulin (HCC); Rectal bleeding; Abdominal pain, generalized; Nausea Allergies Active Allergy Reactions Criticality Noted Date Comments Metformin Diarrhea High 11/21/2023 Morphine 12/27/2013 Nausea, vomiting, diaphoresis Semaglutide Psych complications High 11/21/2023 Sulfa Antibiotics Itching 10/04/2011 documented as of this encounter (statuses as of 04/03/2024) Medications Medication Sig Dispensed Refills Start Date End Date Status Kliqed w/Device KitIndications:Type 2 diabetes mellitus with hemoglobin [...] with autonomic neuropathy, 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 2 mL 3 12/14/2023 Active Spironolactone 25 MG Oral Tablet (Aldactone) Take 1 Tablet by mouth in the morning. 30 Tablet 5 12/19/2023 Active Kliqed In Vitro Strip (Glucose Blood) Use as [...] A1c goal of less than 7.0% ([facility]) Inject 55 Units under the [...] (heart failure with reduced ejection fraction) ([facility]) Take 1.5 Tablets by mouth [...] MINS BEFORE MEALS 90 Tablet 03/28/2024 Active documented as of this encounter (statuses as of 04/03/2024) Active Problems Problem Noted Date Diagnosed Date [...] as of this encounter (statuses as of 04/03/2024) Resolved Problems Problem Noted Date Diagnosed Date Resolved Date Type 2 diabetes mellitus wit h autonomic neuropathy 06/29/2022 12/19/2022 Neuropathy 04/07/2021 12/19/2022 Diabetic ketoacidosis withou t coma associated with type 2 diabetes mellitus 04/07/2021 05/06/2021 Overview: 02/2021 Fatigue 11/13/2011 05/10/2022 Esophageal reflux 10/04/2011 04/07/2021 documented as of this encounter (statuses as of 04/03/2024) Immunizations Name Administration Dates Next Due Seasonal [...] Sign Reading Time Taken Comments Blood Pressure 126/88 04/03/2024 10:41 AM EDT Pulse 86 04/03/2024 10:41 AM EDT Temperature - - Respiratory Rate - - Oxygen Saturation 98% 04/03/2024 10:41 AM EDT Inhaled Oxygen Concentration - - Weight 102.1 kg (225 lb) 04/03/2024 10:41 AM EDT Height 172.7 cm (5' 7.99") 04/03/2024 10:41 AM E DT Body Mass Index 34.22 04/03/2024 10:41 AM EDT documented in this encounter Progress Notes * Ayala Chiu, - 04/03/2024 10:40 AM EDT [facility] GENERAL HISTORY & PHYSICAL EXAMINATION [place] [id number] DATE: 04/02/2024 NAME: Man Day Referring Physician: RAN Sandhu Chief Complaint Patient presents with NEW PATIENT History of Present Illness: Man Day is a 43 year old male with pertinent PMHx of IDDM, hx of DKA, gastroparesis on metoclopramide, HTN, peripheral neuropathy, High TGL, ETOH abuse, hx of PE and HFrEF and cardiomyopathy among others as listed below, who presents today for establish care in GI clinic. Presents with his girlfiendKatharine. Current relevant GI medications: Insulin Dulaglutide Empagflozin Ezetimbe gabapentin Summary of prior visits: Went to ED for profuse episodes of nausea, felt he was throwing up feculent material. He was admitted for intolerance to PO intake. I was not able to find the DC summary in care everywhere.. He was medically managed per his girlfriend with anti nausea meds and motility agents. He states that this has been going on intermittently for the past 3-4 years, worsening in the past few months to the point where he can barely tolerate water or any solid oral intake. He has not beenable to eat solid meals without feeling nauseated and having to vomit. No issues swallowing. Has been losing weight. Wt Readings from Last 6 Encounters: 04/03/24 102.1 kg (225 lb) 03/20/24 105.2 kg (232 lb) 02/27/24 106.6 kg (235 lb) 02/19/24 103.9 kg (229 lb) 02/12/24 105.7 kg (233 lb) 01/12/24 106.4 kg (234 lb 8 oz) Currently denies altered mental status, leg swelling, GI bleeding (hematemesis, melena, hematochezia). he denies any jaundice, rashes, Itching, fever, chills, change in color of urine or stools. H/O weight loss or loss of appetite - . H/O fatigue. H/O recent hospitalizations or ER visits. His main complaint is the nausea and unable to eat. He is not able to tolerate small meals. Has tried reglan Has [facility] for diabetes, not for gastroparesis. Has also been having rectal bleed - for several years. Feels that his bowel movements have changed.The rectal bleeding is bright red, sometimes mixed with blood. Blood when wiping and blood in the bowl. CBC has been stabl for the past two years at 15/16. BMP is also normal. He is extremely angry and depressed from his symptoms. He does not want to see any therapist or psychologist. Has been feeling a lack of QOL. 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 "It's been going downhill for the past fouryears." Past Medical History: Past Medical History: Diagnosis Date Chronic constipation DM type 2, goal HbA1c < 7% (HCC) Gastroparesis GERD (gastroesophageal reflux disease) HTN, goal below 130/80 Other proteinuria Past Surgery History: Past Surgical History: Procedure Laterality Date CARDIAC SURGERY PROCEDURE NEC Age 3 Open heart surgery for 2 holes in ventricular septum COLONOSCOPY, DIAGNOSTIC (RECTUM) 01/10/2014 COLONOSCOPY FLEXIBLE PROXIMAL DIAGNOSTIC performed by Nora Patricia DO at [facility] EGD, FLEXIBLE, DIAGNOSTIC 01/24/2014 ESOPHAGOGASTRODUODENOSCOPY (EGD), FLEXIBLE, TRANSORAL, DIAGNOSTIC performed by Scott Espinoza MD at [facility] EGD, FLEXIBLE, W/BIOPSY 12/14/11 mild gastritis negative for HPylori EGD, W/ENDOSCOPIC US 01/24/2014 ESOPHAGOGASTRODUODENOSCOPY (EGD), FLEXIBLE, TRANSORAL, ENDOSCOPIC ULTRASOUND performed by Scott Bailey MD at [facility]COPY [facility] Current Outpatient Medications Medication Sig Dispense Refill [...] 1 Dulaglutide 0.75 MG/0.5ML Subcutaneous Solution Pen-injector (Trulicity) Inject 0.75 mg under the skin once a week. 2 mL 3 Spironolactone 25 MG Oral Tablet (Aldactone) Take 1 Tablet by mouth in the morning. 30 Tablet 5 OneTouch Verio In Vitro Strip (Glucose Blood) [...] every 10 days. E11.9 3 Each 5 Empagliflozin 10 MG Oral Tablet (Jardiance) [...] 30 MINS BEFORE MEALS 90 Tablet 0 Linzess 145 MCG Oral Capsule (linaCLOtide) Take 1 Capsule by mouth daily before breakfast. (Patientnot taking: Reported on 04/03/2024) 30 Capsule 3 No current facility-administered medications for this visit. Review of patient's allergies indicates: Allergen Reactions Metformin Diarrhea Semaglutide Psych complications Morphine Nausea, vomiting, diaphoresis Sulfa Antibiotics Itching No family history on file. Social History Socioeconomic History Marital status: Single Tobacco Use Smoking status: Former Current packs/day: 0.00 Average packs/day: 1 pack/day for 4.0 years (4.0 ttl pk-yrs) Types: Cigarettes Start date: 10/23/2003 Quit date: 10/23/2007 Years since quittin.4 Passive exposure: Past Smokeless tobacco: Never Vaping [...] Food in the Last Year: Never true Objective BP 126/88 | Pulse 86 | Ht 1.727 m (5' 7.99") | Wt 102.1 kg (225 lb) | SpO2 98% | BMI 34.22 kg/m |BSA 2.21 m Physical Exam Vitals and nursing note reviewed. Constitutional: General: He is not in acute distress. Appearance: He is not toxic-appearing. HENT: Head: Normocephalic. Right Ear: External ear normal. Left Ear: External ear normal. Nose: Nose normal. Eyes: Extraocular Movements: Extraocular movements intact. Conjunctiva/sclera: Conjunctivae normal. Cardiovascular: Rate and Rhythm: Normal rate and regular rhythm. Pulmonary: Effort: Respiratory distress: Equal bilateral chest rise, no audible wheezing. Abdominal: General: Bowel sounds are normal. Palpations: Abdomen is soft. Musculoskeletal: Cervical back: Normal range of motion. Skin: General: Skin is warm and dry. Neurological: General: No focal deficit present. Mental Status: He is alert. Mental status is at baseline. Labs reviewed in [facility]: Reviewed in [facility] and pertinent as below Latest Reference Range & Units 03/07/24 11:16 Triglycerides <=174 mg/dL 304 (H) Cholesterol <200 mg/dL 141 Non-HDL Cholesterol <=159 mg/dL 95 HDL Cholesterol >39 mg/dL 46 LDL Cholesterol <=129 mg/dL 34 Sodium 135 - 146 mmol/L 140 Potassium 3.5 - 5.1 mmol/L 4.8 Chloride 98 - 107 mmol/L 106 CO2 22 - 32 mmol/L 26 BUN 6 - 20 mg/dL 13 Creatinine 0.6 - 1.2 mg/dL 1.3 (H) Estimated Glomerular Filtration Rate >=60 mL/min 73 Anion Gap 7 - 15 mmol/L 8 Glucose 70 - 120 mg/dL 143 (H) Calcium 8.4 - 10.2 mg/dL 9.2 (H): Data is abnormally high Hgb A1c 7.7 Radiology data reviewed in [facility]: Reviewed in [facility] and pertinent as below Endoscopic/GI imaging/study Hx: EUS 01/2014 Impression: - Pancreatic parenchymal abnormalities consisting of diffuse echogenicity were noted in the entire pancreas. - Normal common bile duct. - Fatty Liver - Normal left adrenal gland were unremarkable. - No lymphadenopathy - Normal region of celiac artery. Path: EGD 01/2024 Findings: LA Grade B (one or more mucosal breaks greater than 5 mm, not extending between the tops of two mucosal folds) esophagitis with no bleeding was found. Biopsies were taken with a cold forceps for histology. The entire examined stomach was normal. Biopsies were taken with a cold forceps for histology. The duodenal bulb and 2nd part of the duodenum were normal. Biopsies were taken with a cold forceps for histology. Path: Colonoscopy 12/2013 "Impression: - Stool from hepatic flexure to cecum. - Diverticulosis in the sigmoid colon. - Internal hemorrhoids." ASSESSMENT/PLAN: Man Day is a 43 year old male with PMH as above who is presenting for evaluation today.No prior imaging in [facility] system, and patient also states that he has never had formal diagnostic testing for gastroparesis. 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 With such severe pain, I suspect more so gastroparesis, however, will rule out other structural causes. Given history of rectal bleeding, should have repeat colonoscopy will need extended prep due to hisconstipation in the setting of his symptoms. I recommended miralax and stool softener, but he said it doesn't help and it makes him more dehydrated. He does have a history of hemorrhoids, which is likely the cause of his bleeding, but should still rule out other pathology. Given his depression, I also recommended therapy and consideration of talk tx and medications as hemade passive comments about his life ending. When I suggested this, he said all the people he had talked to were "stupid and never listened." If the GE test returns, positive, as I suspect it will, I would consider the addition of prucalopride if patient wanted to try, although the data is still limited. He would also likely benefit from [place]. Suspected Gastroparesis (Primary) Type 2 diabetes mellitus with diabetic autonomic neuropathy, with long-term current use of insulin ([facility]) - NM GASTRIC EMPTYING STUDY SOLID; Future; Expected date: 04/10/2024 Rectal bleeding - COLONOSCOPY, DIAGNOSTIC (RECTUM) Abdominal pain, generalized - EGD, FLEXIBLE, DIAGNOSTIC Nausea - EGD, FLEXIBLE, DIAGNOSTIC Check-out note: Schedule NM emptying study - wants to go towards [facility]. Egd and colonoscopy w/ 1-2 months Diabetic - will need two day prep with edmar Wants to be seen in closer clinic Plan NM Gastric Emptying Study Solid EGD, Flexible, Diagnostic Colonoscopy, Diagnostic (Rectum) The patient was discussed with Dr. Colmenares. Ayala Chiu DO Gastroenterology Fellow [facility] 04/03/2024 I have discussed the patient's management with the resident/fellow physician and agree with the note. Please refer to the documented findings and plan of care. This patient's visit today consisted ofan evaluation. I was present and confirmed the findings of the history and exam. Checo Colmenares MD documented in this encounter Plan of Treatment Upcoming Encounters Date Type Department Care Team (Late st Contact Info) Description 04/09/2024 10:00 AM EDT Telemedicine Cardiology, [address] [place] [id number] [facility] Cardiology [address] [place] [id number] 04/11/2024 6:10 PM EDT Pharmacy Pharmacy, [address] [place] [address] [place] [address] 06/07/2024 9:30 AM EDT Office Visit Gastroenterology [address] [place] [address] Marsha Loco CRNP [address] [place] [address] 06/20/2024 11:00 AM EDT Cardiac Studies Cardiac Studies, [facility] [address] [place] [address] 08/28/2024 8:20 AM EST Office Visit Family Medicine [address] [place] [phone] Dany Caruso MD [address] [place] [address] [place] [address] 09/30/2024 9:30 AM EST Office Visit Cardiology, [facility] [address] [place] [address] Joaquina Hernández CRNP [address] [place] [address] Scheduled Orders Name Type Priority Associated Diagnoses Orde r Schedule NM GASTRIC EMPTYING STUDY SOLID Medical Imaging Routine Type 2 diabetes mellitus with diabetic autonomic neuropathy, with long-term current use of insulin (HCC) Expected: 04/10/2024, Expires: 05/03/2025 EGD, FLEXIBLE, DIAGNOSTIC Procedures Routine Abdominal pain, generalized Nausea Ordered: 04/03/2024 COLONOSCOPY, DIAGNOSTIC (RECTUM) Procedures Routine Rectal bleeding Ordered: 04/03/2024 Health Maintenance Due Date Last Done Comments [...] as of this encounter Visit Diagnoses Diagnosis Gastroparesis- Primary Type 2 diabetes mellitus with diabetic autonomic neuropathy, with long-term current use of insulin ([facility]) Rectal bleeding Hemorrhage of rectum and anus Abdominal pain, generalized Nausea Nausea alone documented in this encounter Care Teams Talent Acquisition Assistant Relationship Specialty Start Date End Date Dany Caruso MD [address] [place] [address] [place] [id number] PCP - General Family Medicine 04/07/21 documented as of this encounter
--- OUTSIDE RECORDS SUMMARY | 2024-05-18 17:22 | External Medical Summary | Summary of Care ---
Author Name Unknown Organization [facility] Address [address] [place] [address] Phone [phone] Care Team Providers Care Survey Chief Name Role Phone Dany Caruso MD Primary Care Provide r Reason for Visit * Reason Onset Date Comments Hospital Follow-Up Hospital Follow-Up 04/16/2024 Encounter Details Date Type Department Care Team (Late st Contact Info) Description 04/16/2024 9:00 AM EDT Office Visit Family Medicine [address] [phone] Dany Caruso MD [address] [place] [address] [place] [phone] Hospital discharge follow-up*; Vitamin D deficiency; Gastroparesis; Type 2 diabetes mellitus with hemoglobin A1c goal of less than 7.0% ([facility]); HTN, goal below 130/80 Allergies Active Allergy [...] diabetes mellitus with autonomic neuropathy, unspecified whether longitudinal float operator insulin use (HCC) Use with insulin [...] 1 04/16/2024 Active Vitamin D3 1.25 MG (81956 UT) Oral CapsuleIndications: Vitamin D deficiency Take 1 Capsule by mouth once a week. 12 Capsule 04/16/2024 4 Active Insulin Glargine Solostar 100 UNIT/ML Subcutaneous Solution Pen-injector (Lantus SoloStar)Indication s:Type 2 diabetes mellitus with hemoglobin A1c goal of less than 7.0% ([facility]) Inject 25 Units under the skin daily. 04/16/2024 Active Insulin Glargine Solostar 100 UNIT/ML Subcutaneous Solution Pen-injector (Lantus SoloStar)Indication s:Type 2 diabetes mellitus with hemoglobin A1c goal of less than 7.0% ([facility]) Inject 55 Units under the skin daily. 45 mL 3 01/12/2024 4 Discontinue d(Refill) Linzess 145 MCG Oral Capsule (linaCLOtide)Indica tions:Chronic constipation Take 1 Capsule by mouth daily before breakfast. 30 Capsule 3 01/31/2024 4 Discontinue d(Medicatio n/Dose Changed) Promethazine HCl 6.25 MG/5ML Oral Solution Take by mouth 4 times a day as needed for Nausea. 4 Discontinue d(Refill) documented as of this encounter [...] Sign Reading Time Taken Comments Blood Pressure 148/90 04/16/2024 9:19 AM EDT Pulse 88 04/16/2024 9:19 AM EDT Temperature 35.6 C (96 F) 04/16/2024 9:19 AM EDT Respiratory Rate - - Oxygen Saturation 96% 04/16/2024 9:19 AM EDT Inhaled Oxygen Concentration - - Weight 104 kg (229 lb 3.2 oz) 04/16/2024 9:19 AM EDT Height - - Body Mass Index 34.86 04/03/2024 10:41 AM EDT documented in this encounter Progress Notes * Dany Caruso MD - 04/16/2024 9:20 AM EDT Subjective: HPI: Man Day is a 43 year old male with hx of IDDM, hx of DKA, Gastroparesis, HTN, peripheral neuropathy, High TGL, ETOH abuse, hx of PE and HFrEF and cardiomyopathy seen for Pt was admitted to the hospital from 03/24-04/01 1.Intractable nausea/vomiting -2/2 gastroparesis -GI consult: small freq meals, miralax daily, antiemetic prn and EGG/Colonoscopy outpt 2.BONILLA and metabolic acidosis: -A1C was 6.1 -Cr was 2.51 improved with hydration Today: - pt continues have nausea and vomiting - pt is frustrated with his symptoms - last took trulicity Thursday 04/12 ---On lantus 20 units daily, not taking novolog due to lack of PO intake, jardiance 10mg daily - per pt promethazine was helping with nausea - vit D level was low but not taking vit supplement - also taking reglan 5mg TID - LBM: today morning CGM readings: avg sugar 220 in the last 14 days and no hypoglycemic episodes Patient Active Problem List Diagnosis Controlled substance agreement signed Type 2 diabetes mellitus with hemoglobin A1c goal of less than 7.0% ([facility]) HTN, goal below 130/80 Other proteinuria High triglycerides Gastroparesis HFrEF (heart failure with reduced ejection fraction) ([facility]) Acute pulmonary embolism without acute cor pulmonale ([facility]) History of alcohol abuse Gastro-esophageal reflux disease without esophagitis Alcohol abuse, uncomplicated Neuropathy Other acute pulmonary embolism without acute cor pulmonale ([facility]) Type 2 diabetes mellitus with autonomic neuropathy ([facility]) Current Outpatient Medications Medication Sig Dispense Refill Promethazine HCl 6.25 MG/5ML Oral Solution Take 6.25 mg by mouth in the morning and 6.25 mg at noonand 6.25 mg in the evening. Take before meals. 240 mL 1 Vitamin D3 1.25 MG (82501 UT) Oral Capsule Take 1 Capsule by mouth once a week. 12 Capsule 0 Insulin Glargine Solostar 100 UNIT/ML Subcutaneous Solution Pen-injector (Lantus SoloStar) Inject 25 Units under the skin daily. HydroLogex Verio w/Device Kit Use to test once a day E11.9 1 Kit 0 Magnesium Oxide (Elemental) 400 MG Oral Tablet Take by mouth 400 mg daily . Insulin Syringe 31G X 16" 0.3 ML Use to inject insulin twice [...] 1 Dulaglutide 0.75 MG/0.5ML Subcutaneous Solution Pen-injector ([employer]) Inject 0.75 mg under the skin once [...] performed by Nora Patricia DO at ENDOSCOPY [facility] EGD, FLEXIBLE, DIAGNOSTIC 01/24/2014 ESOPHAGOGASTRODUODENOSCOPY (EGD), FLEXIBLE, TRANSORAL, DIAGNOSTIC performed by Scott Espinoza MD at ENDOSCOPY [facility] EGD, FLEXIBLE, W/BIOPSY 12/14/11 mild gastritis negative for HPylori EGD, W/ENDOSCOPIC US 01/24/2014 ESOPHAGOGASTRODUODENOSCOPY (EGD), FLEXIBLE, TRANSORAL, ENDOSCOPIC ULTRASOUND performed by Scott Bailey MD at ENDOSCOPY [facility] Review of patient's allergies indicates: Allergen Reactions Metformin Diarrhea Semaglutide Psych complications Morphine Nausea, vomiting, diaphoresis Sulfa Antibiotics Itching No family history on file. Social History Tobacco Use Smoking status: Former Current packs/day: 0.00 Average packs/day: 1 pack/day for 4.0 years (4.0 ttl pk-yrs) Types: Cigarettes Start date: 10/23/2003 Quit date: 10/23/2007 Years since quittin.4 Passive exposure: Past Smokeless tobacco: Never Substance Use Topics Alcohol use: Yes Comment: Around holidays Vaping/E-Cigarette Use Vaping/E-Cigarette Use Never User Vaping/E-Cigarette Substances Vaping/E-Cigarette Devices ROS: -Per HPI OBJECTIVE: BP 148/90 | Pulse 88 | Temp 35.6 C (96 F) | Wt 104 kg (229 lb 3.2 oz) | SpO2 96% | BMI 34.86 kg/m | BSA 2.23 m PHYSICAL EXAM: Vitals are reviewed General:. NAD, well developed HEENT:. Normal Conjunctiva, EOMI Cardiac:. Normal S1, S2, no murmur Lungs:. CTA, no wheezing or crackles Abd:.diffuse ttp, soft, ND MSK:. Normal gait Psych:. AAOx3, normal affect ASSESSMENT/PLAN: Reviewed in detail gastroparesis diet Due to persistent abd pain, N/V stopped the Trulicity - increased the lantus to 25 units - pt does wear CGM Continue promethazine before meals RTC in 2 months Pt's BP is elevated - will continue to monitor on current regimen for now Hospital discharge follow-up (Primary) - DISCH MED RECON CUR MED LIS Vitamin D deficiency - Vitamin D3 1.25 MG (04808 UT) Oral Capsule; Take 1 Capsule by mouth once a week. Gastroparesis - Promethazine HCl 6.25 MG/5ML Oral Solution; Take 6.25 mg by mouth in the morning and 6.25 mg at noon and 6.25 mg in the evening. Take before meals. - BASIC METABOLIC PANEL Type 2 diabetes mellitus with hemoglobin A1c goal of less than 7.0% (HCC) HTN, goal below 130/80 Follow-up: Return in about 2 months (around 06/16/2024). | Check-out note: With me Pls help pt sche a earlier appt with GI I spent a total of 40-54 minutes (exact time 45 mins) on the date of service in preparation, delivery, and documentation of the care provided to Man Day excluding any time spent in the performance of separately billed services. Dany Caruso MD Family medicine, [place] [phone] documented in this encounter Nursing Notes * Zahra iPmentel CMA - 04/16/2024 9:09 AM EDT He is here for a follow up from the [facility] admission from 03/24-04/01/24. He went in for nausea and vomiting. documented in this encounter Plan of Treatment Upcoming Encounters Date Type Department Care Team (Latest Contact Info) Description 04/16/2024 10:30 AM EDT Office Visit Pharmacy, [address] [place] [address] [place] [address] Type 2 diabetes mellitus with hemoglobin A1c goal of less than 7.0% (HCC)* 04/24/2024 10:00 AM EDT [facility] [place] [facility] [id number] [facility] Card[facility] [address] [facility] [place] [address] 05/06/2024 10:40 AM EDT Office Visit Nephrology, [address] [place] [address] Alysha Cochrna MD [address] [facility] [place] [address] 05/29/2024 10:00 AM EDT Imaging [facility] 2nd Floor Cardiology, [address] [place] [address] 05/29/2024 11:30 AM EDT Imaging [facility] 2nd Floor Cardiology, [address] [place] [address] 05/29/2024 12:30 PM EDT Imaging [facility] 2nd Floor Cardiology, [address] [place] [address] 05/29/2024 2:30 PM EDT Imaging [facility] 2nd Floor Cardiology, [address] [place] [address] 06/07/2024 9:30 AM EDT Office Visit Gastroenterology [address] [place] [address] Marsha Loco CRNP [address] [place] [address] 06/20/2024 11:00 AM EDT Cardiac Studies Cardiac Studies, [facility] [address] [place] [address] 08/28/2024 8:20 AM EST Office Visit [address] [place] [phone] Dany Caruso MD [address] [place] [address] [place] [address] 09/05/2024 1:00 PM EST Hospital Encounter ENDO OSSC, Endoscopy Room [facility] [address] [place] [id number] Yudith Root DO [address] [place] [address] 09/05/2024 1:00 PM EST - 09/05/2024 2:00 PM EST Surgery ENDO OSSC, Endoscopy Room [facility] [address] [place] [phone] Yudith Root DO [address] [place] [address] COLONOSCOPY FLEXIBLE PROXIMAL DIAGNOSTIC 09/30/2024 9:30 AM EST Office Visit Cardiology, [facility] [address] [place] [address] Joaquina Hernández CRNP [address] [place] [address] Scheduled Orders Name Type Priority Associated Diagnoses Orde r Schedule BASIC METABOLIC PANEL Lab Routine Gastroparesis Ordered: 04/16/2024 Scheduled Procedures Name Priority Associated Diagnoses Date/Ti [...] as of this encounter Visit Diagnoses Diagnosis Hospital discharge follow-up- Primary Other follow-up examination Vitamin D deficiency Unspecified vitamin D deficiency Gastroparesis Type 2 diabetes mellitus with hemoglobin A1c goal of less than 7.0% (HCC) HTN, goal below 130/80 Unspecified essential hypertension Type 2 diabetes mellitus with hemoglobin A1c goal of less than 7.0% (HCC)- Primary Abdominal pain Abdominal pain, unspecified site documented in this encounter Care Teams Survey Chief Relationship Specialty Start Date End Date Dany Caruso MD [address] [place] [address] [place] [phone] PCP - General Family Medicine 04/07/21 documented as of this encounter
--- OUTSIDE RECORDS SUMMARY | 2024-05-18 17:22 | External Medical Summary ---
Author Name Unknown Address Unknown Organization K01:[facility] - [address] [place] [address] Laboratory Report Ordering Provider Test Date Status JASON MUNSON 04/16/2024 10:28:01 Hilda l Observation Date Value Abnormality Reference (Units ) Status BUN 04/16/2024 10:28:01 7 6-20 (mg/dL) Final Creatinine 04/16/2024 10:28:01 0.8 0.6-1.2 (mg/dL) Final Glomerular filtration rate/1.73 sq M.predicted [Volume Rate/Area] in Serum, Plasma or Blood by Creatinine-based formula (CKD-EPI) 04/16/2024 10:28:01 >90 >=60 (mL/min) Final eGFR is calculated based on the CKD-EPI 2020 equation Sodium 04/16/2024 10:28:01 141 135-146 (m mol/L) Final Potassium 04/16/2024 10:28:01 4.4 3.5-5.1 (m mol/L) Final Cl 04/16/2024 10:28:01 105 98-107 (mm ol/L) Final CO2 04/16/2024 10:28:01 22 22-32 (mmo l/L) Final Anion gap 04/16/2024 10:28:01 14 7-15 (mmol /L) Final Glucose 04/16/2024 10:28:01 190 Above high normal 70 -120 (mg/dL) Final Calcium 04/16/2024 10:28:01 9.4 8.4-10.2 ( mg/dL) Final Performing Location [facility] [place] - [address] [place] [address]
--- OUTSIDE RECORDS SUMMARY | 2024-05-18 17:22 | External Medical Summary | Summary of Care ---
Author Name Unknown Organization [facility] Address [address] [place] [address] Phone [phone] Care Team Providers Care Auditor In Charge Name Role Phone Dany Caruso MD Primary Care Provide r Reason for Visit * Reason Onset Date Comments Hospital Follow-Up 04/11/2024 Encounter Details Date Type Department Care Team (Late st Contact Info) Description 04/11/2024 Telephone General Internal Medicine [facility] [place] [address] [facility] [place] [address] Dany Caruso MD [address] [place] [address] [place] [address] Hospital Follow-Up Allergies Active Allergy Reactions Criticality [...] goal of less than 7.0% ([facility]) Use to test once a day E11.9 [...] diabetes mellitus with autonomic neuropathy, unspecified whether technician terminal and repeater insulin use (HCC) Use with insulin once daily 100 Each 1 12/13/2023 Active Dulaglutide 0.75 MG/0.5ML Subcutaneous Solution Pen-injector ([employer]) Inject 0.75 mg under the skin once [...] s 01/04/2024 Does the household have a [facility] source of income? (Household - for [...] 04/11/2024 12:23 PM EDT Patient discharged from [facility] 04/01/2024. Nephrology consulted for BONILLA and [...] Description 04/11/2024 6:10 PM EDT Pharmacy Pharmacy, [address] [place] [address] [place] [address] Type 2 diabetes mellitus with hemoglobin A1c goal of less than 7.0% (HCC)* 04/16/2024 9:00 AM EDT Office Visit Family Medicine [address] [place] [phone] Dany Caruso MD [address] [place] [address] [place] [address] 04/16/2024 10:30 AM EDT Office Visit Pharmacy, [address] [place] [address] [place] [address] 04/24/2024 10:00 AM EDT Telemedicine Cardiology, [address] [place] [address] [facility] Cardiology [address] [place] [address] 05/29/2024 10:00 AM EDT Imaging [facility] 2nd Floor Cardiology, [address] [place] [address] 05/29/2024 11:30 AM EDT Imaging [address] [facility]iology, [place] [facility] [place] [address] 05/29/2024 12:30 PM EDT Imaging [address], [place] [address] [place] [address] 05/29/2024 2:30 PM EDT Imaging [address] Cardiology, [place] [address] [place] [address] 06/07/2024 9:30 AM EDT Office Visit Gastroenterology [address] [place] [address] Marsha Loco CRNP [address] [place] [address] 06/20/2024 11:00 AM EDT Cardiac Studies Cardiac Studies, [facility] [address] [facility] [place] [address] 08/28/2024 8:20 AM EST Office Visit Family Medicine [address] [place] [phone] Dany Caruso MD [address] [place] [address] [place] [address] 09/05/2024 1:00 PM EST Hospital Encounter ENDO OSS, Endoscopy Room [facility] [address] [place] [phone] Yudith Root, [address] [place] [address] 09/05/2024 1:00 PM EST - 09/05/2024 2:00 PM EST Surgery ENDO OSSC, Endoscopy Room [facility] [address] [place] [phone] Yudith Root DO [address] [place] [address] COLONOSCOPY FLEXIBLE PROXIMAL DIAGNOSTIC 09/30/2024 9:30 AM EST Office Visit Cardiology, [facility] [address] [place] [address] Joaquina Hernández CRNP [address] [place] [address] Scheduled Orders Name Type Priority Associated Diagnoses Orde r Schedule BASIC METABOLIC PANEL Lab Routine Other proteinuria BONILLA (acute kidney injury) ([facility]) Expected: 04/22/2024 (Approximate), Expires: 04/11/2025 URINALYSIS WITH MICROSCOPIC EXAM Lab Routine Other proteinuria BONILLA (acute kidney injury) ([facility]) Expected: 04/22/2024 (Approximate), Expires: 04/11/2025 ELECTROLYTES, RANDOM URINE Lab Routine Other proteinuria BONILLA (acute kidney injury) ([facility]) Expected: 04/22/2024 (Approximate), Expires: 04/11/2025 PROTEIN/ CREATININE RATIO, URINE Lab Routine Other proteinuria BONILLA (acute kidney injury) ([facility]) Expected: 04/22/2024 (Approximate), Expires: 04/11/2025 ALBUMIN / CREATININE RATIO, URINE Lab Routine Other proteinuria BONILLA (acute kidney injury) ([facility]) Expected: 04/22/2024 (Approximate), Expires: 04/11/2025 Scheduled Procedures [...] site documented in this encounter Care Teams Auditor In Charge Relationship Specialty Start Date End Date Dany Caruso MD [address] [place] [address] [place] [address] PCP - General Family Medicine 04/07/21 documented as of this encounter
[2024-05-18] MEDS: SODIUM CHLORIDE 0.9% 1,000 ML IV ONE (18:47)
[2024-05-18] MEDS: ONDANSETRON INJ 2 MG/ML 2 ML VIAL IV STA ×2 (18:47→20:07)
[2024-05-18 19:00] LABS: Base Excess VBG -7.3 mEq/L; HCO3 VBG 17 mmol/L; Oxygen Saturation VBG 87.7 %; PCO2 VBG 30 mmHg (38-50); PO2 VBG 53 mmHg; pH VBG 7.36 (7.36-7.41)
[2024-05-18 19:31] LABS: Hematocrit (blood only) 51.8 % (42.0-52.0); Hemoglobin 17.9 g/dl (14.0-18.0); Mean Corpuscular Hemoglobin 29.2 pg (25.0-34.0); Mean Corpuscular Hgb Conc 34.6 g/dL (32.0-36.0); Mean Corpuscular Volume 84.6 fL (80.0-100.0); Mean Platelet Volume 12.4 fL (9.4-12.4); Platelet Count 248 K/uL (130-400); RDW Coefficient of Variation 12.7 % (11.5-14.5); RDW Standard Deviation 38.7 fL (36.4-46.3); Red Blood Count 6.12 M/uL (4.70-6.10); White Blood Count 17.46 K/ul (4.8-10.8)
[2024-05-18 19:32] LABS: Basophils # (auto) 0.04 K/uL (0.00-0.20); Basophils % (auto) 0.2 %; Eosinophils # (auto) 0.01 K/uL (0.00-0.50); Eosinophils % (auto) 0.1 %; Immature Granulocytes # (auto) 0.12 K/uL (0.01-0.20); Immature Granulocytes % (auto) 0.7 %; Lymphocytes # (auto) 0.69 K/uL (1.20-3.40); Monocytes # (auto) 0.59 K/uL (0.11-0.59); Monocytes % (auto) 3.4 %; Neutrophils # (auto) 16.01 K/uL (1.40-6.50); Neutrophils % (auto) 91.6 %
--- NOTE | 2024-05-18 19:42 | XRay Report ---
XR abdomen 2V w PA chest HISTORY: 43 years-old Male vomitting acute nausea with vomiting COMPARISON: 03/24/2024 TECHNIQUE: PA view of the chest with erect and supine views of the abdomen FINDINGS: Heart size is normal. Pediatric sternotomy wires are present. Lungs are clear. No pneumothorax or ple ural effusion. No acute fracture. Nonobstructed bowel gas pattern. No urolith identified. IMPRESSION: 1. No acute processes of the chest. 2. Nonobstructive bowel gas pattern. ACT 112: Negative or not required by law. The above report was generated using voice recognition software. It may contain grammatical, syntax o r spelling errors. Electronically signed by: Stuart Keith M.D. 05/18/2024 7:41 PM
[2024-05-18 19:59] LABS: Albumin Level 5.3 gm/dl (3.4-5.0); Bilirubin Direct 0.1 mg/dl (0-0.2); Bilirubin,Total 0.6 mg/dl (0.2-1.0); Potassium 3.9 mmol/L (3.5-5.1)
[2024-05-18 20:12] LABS: BUN Creatinine Ratio 15.9 (10-20); Creatinine Clr Calc Pharmacy 68.2 ml/min; Est GFR (African American) 64.2 ml/min; Est GFR (Non-African American) 55.4 ml/min; Total Protein 7.8 gm/dl (6.0-8.3)
[2024-05-18] MEDS ORDERED: GLUCOSE 40% GEL 15 GM TUBE PO PRN (20:37)
[2024-05-18] MEDS ORDERED: STAT IV Infusion **Titration per Protocol STA (20:37)
[2024-05-18] MEDS ORDERED: DEXTROSE 50% 50 ML SYRINGE IV PRN (20:37)
[2024-05-18] MEDS ORDERED: CARBOHYDRATES FOR HYPOGLYCEMIA PO PRN (20:37)
[2024-05-18] MEDS ORDERED: GLUCAGON FOR INJ 1 MG VIAL SQ PRN (20:37)
[2024-05-18] MEDS ORDERED: GLUCOSE 10 TAB/TUBE PO PRN (20:37)
[2024-05-18] MEDS: SODIUM CHLORIDE 0.9% 1,000 ML IV SCH (21:14)
[2024-05-18] MEDS: METOPROLOL TARTRATE 1 MG/ML VIAL IV STA (21:16)
[2024-05-18] MEDS: INSULIN ASPART PER UNIT CHARGE SC SCH (21:24)
[2024-05-18] MEDS: INSULIN REGULAR 250 UNITS in SODIUM CHLORIDE 0.9% 247.5 ML IV SCH (21:28)
[2024-05-18] MEDS: NSS + 20MEQ KCL 20 MEQ/1,000 ML BAG IV SCH (21:53)
--- NOTE | 2024-05-18 21:58 | Emergency Department Note ---
History of Present Illness General Chief complaint: Vomiting Stated complaint: VOMIT Time Seen by Provider: 05/18/24 17:43 History of Present Illness Provider complaint: Nausea vomiting DKA Onset (ago): day(s) 1 Maximum Pain Intensity: 8 43-year-old type I diabetic male presents emergency department for nausea vomiting and DKA. Patient states he woke up this morning and could not stop vomiting. He states his blood sugars were high. Patient states he was in [facility] and went to an emergency department there where he was diagnosed with DKA. He states he was given IV fluids and IV insulin but then left the hospital they are to come here to be evaluated. He denies any recent alcohol usage. Denies any traumas. No fevers. No hematemesis hematuria melena hematochezia coffee-ground emesis or bilious vomiting. Home Medications Medication Instructions Recorded Confirmed Type atorvastatin 40 mg tablet 40 mg PO QAM 06/23/21 05/18/24 History pantoprazole 40 mg tablet,delayed 40 mg PO DAILYBB 11/19/23 05/18/24 History release ezetimibe 10 mg tablet 10 mg PO QAM 02/09/24 05/18/24 History fenofibrate nanocrystallized 145 145 mg PO QAM 02/09/24 05/18/24 History mg tablet furosemide 20 mg tablet 20 mg PO QAM 02/09/24 05/18/24 History gabapentin 300 mg capsule 300 mg PO TID 02/09/24 05/18/24 History glipizide 10 mg tablet, extended 10 mg PO DAILYBB 02/09/24 05/18/24 History release 24 hr insulin glargine 100 unit/mL (3 20 unit subcut QA 02/09/24 05/18/24 History mL) subcutaneous pen metoprolol succinate 50 mg 75 mg PO QAM 02/09/24 05/18/24 History tablet,extended release 24 hr sacubitril 24 mg-valsartan 26 mg 1 tab PO BID 02/09/24 05/18/24 History tablet (Entresto) spironolactone 25 mg tablet 25 mg PO QAM 02/09/24 05/18/24 History rivaroxaban 20 mg tablet (Xarelto) 20 mg PO DAILYBD 03/24/24 05/18/24 History promethazine 6.25 mg/5 mL oral 6.25 mg (5 mL) PO AC #240 mL 04/01/24 05/18/24 Rx syrup Allergies Allergy/AdvReac Type Severity Reaction Status Date / Time Sulfa (Sulfonamide Allergy Intermediate ITCHY/HOT Verified 03/24/24 09:17 Antibiotics) metformin AdvReac Intermediate Diarrhea Verified 03/24/24 09:17 morphine AdvReac Intermediate Nausea Verified 03/24/24 09:17 semaglutide [From Ozempic] AdvReac Intermediate Hallucinati Verified 03/24/24 09:17 ng Past Med/Surg History Problem List (Updated 05/18/24 @ 21:57 by Tim Lees MD) DKA (diabetic ketoacidosis) (Acute) Malnutrition Nausea & vomiting Constipation Weight loss Lactic acid acidosis Metabolic acidosis Intractable nausea and vomiting (Acute) BONILLA (acute kidney injury) (Acute) Deep vein thrombosis, lower left extremity Non-ischemic cardiomyopathy New onset of congestive heart failure (04/2022) Overweight (BMI 25.0-29.9) Alcohol abuse Pleural effusion, bilateral (Acute) Dyspnea (Acute) Right bundle branch block Vitamin D deficiency 8.9 in 06/2019 HLD (hyperlipidemia) TG 2049, TC 301 in 06/2019 T2DM (type 2 diabetes mellitus) HTN (hypertension) GERD (gastroesophageal reflux disease) Medical History Chronic wound HFrEF (heart failure with reduced ejection fraction) Pulmonary emboli (04/2022) Gastroparesis Hyperglycemic crisis in diabetes mellitus DKA (diabetic ketoacidosis) History of kidney stones Open trimalleolar fracture (2020) Dislocation of ankle, right, open (2020) Surgical History History of ankle surgery (2020) right ankle external fixator/I&D History of colonoscopy History of esophagogastroduodenoscopy (EGD) History of tooth extraction History of wisdom tooth extraction S/P knee surgery remove fluid off right knee History of heart surgery (1983) VSD- age 3---no issues since surgery, 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 Aunt Cardiac disorder Other No family history of adverse response to anesthesia Denies family history of Ovarian cancer Prostate cancer Myocardial infarction Breast cancer Colorectal cancer Social History Smoking Status: Never smoker Age Started Using Tobacco: 16; Age Quit Using Tobacco: 26; packs per day: 0.5; Second Hand Exposure: No; Do You Dip or Chew Tobacco: No; Hx Alcohol Use: Yes Alcohol type: wine Hx Substance Use: Yes Last Used Substance: Days (ago) Preferred Language: [place] Communication Ability: Effective Visual Impairment: No Limitations Hearing Ability: Normal Whitesmith Required: No Beliefs That Will Affect Care: None marital status: Single Current Living Situation: Spouse current occupational status: employed current occupation: [employer] How many Children do You have: 0 Feels Safe at Home: Yes Dental Care, Regularly: Yes Physical Activity Frequency: 3-4 Times per Week Assistive Devices: None Physical Exam Vital Signs Vital Signs - 24 hr 05/18/24 17:06 05/18/24 17:14 05/18/24 17:44 Temperature 36.7 C Temperature Source Temporal Artery Scan Pulse Rate 123 H Pulse Rate [Right Finger] 103 H Pulse Rate from SpO2 Sensor Pulse Rhythm [Right Finger] Pulse Strength [Right Finger] Respiratory Rate 24 14 Respiratory Effort / Characteristics Non-Labored Spontaneous Respiratory Depth Normal Respiratory Pattern Blood Pressure 159/97 H Blood Pressure [Right Arm] 151/101 H Blood Pressure Mean 117 Blood Pressure Mean [Right Arm] 117 Blood Pressure Position [Right Arm] Pulse Oximetry 95 96 97 Oxygen Delivery Method Room Air Room Air Room Air Sepsis Recent Fever Within 48 Hours No Sepsis New/Unexplained Change in Mental Status No Sepsis Action Taken by Nursing No Action Required 05/18/24 18:08 05/18/24 18:47 05/18/24 18:49 Temperature Temperature Source Pulse Rate 117 H 112 H Pulse Rate [Right Finger] 114 H Pulse Rate from SpO2 Sensor Pulse Rhythm [Right Finger] Regular Pulse Strength [Right Finger] Normal Respiratory Rate 20 18 Respiratory Effort / Characteristics Non-Labored Spontaneous Respiratory Depth Normal Respiratory Pattern Regular Blood Pressure 150/100 H Blood Pressure [Right Arm] 150/100 H Blood Pressure Mean 108 Blood Pressure Mean [Right Arm] 116 Blood Pressure Position [Right Arm] Sitting Pulse Oximetry 96 94 Oxygen Delivery Method Room Air Room Air Sepsis Recent Fever Within 48 Hours Sepsis New/Unexplained Change in Mental Status Sepsis Action Taken by Nursing 05/18/24 19:27 05/18/24 20:00 05/18/24 21:16 Temperature Temperature Source Pulse Rate 106 H 110 H 112 H Pulse Rate [Right Finger] Pulse Rate from SpO2 Sensor 112 H 111 H Pulse Rhythm [Right Finger] Pulse Strength [Right Finger] Respiratory Rate 22 16 Respiratory Effort / Characteristics Respiratory Depth Respiratory Pattern Blood Pressure 189/106 H 181/112 H 136/111 H Blood Pressure [Right Arm] Blood Pressure Mean 133 135 Blood Pressure Mean [Right Arm] Blood Pressure Position [Right Arm] Pulse Oximetry 96 95 Oxygen Delivery Method Room Air Room Air Sepsis Recent Fever Within 48 Hours Sepsis New/Unexplained Change in Mental Status Sepsis Action Taken by Nursing 05/18/24 21:16 05/18/24 21:21 05/18/24 21:30 Temperature Temperature Source Pulse Rate 110 H 104 H 103 H Pulse Rate [Right Finger] Pulse Rate from SpO2 Sensor 112 H 107 H Pulse Rhythm [Right Finger] Pulse Strength [Right Finger] Respiratory Rate 18 27 H 20 Respiratory Effort / Characteristics Respiratory Depth Respiratory Pattern Blood Pressure 136/111 H Blood Pressure [Right Arm] Blood Pressure Mean 126 Blood Pressure Mean [Right Arm] Blood Pressure Position [Right Arm] Pulse Oximetry 96 97 Oxygen Delivery Method Room Air Sepsis Recent Fever Within 48 Hours Sepsis New/Unexplained Change in Mental Status Sepsis Action Taken by Nursing 05/18/24 21:31 05/18/24 21:31 05/18/24 21:31 Temperature Temperature Source Pulse Rate Pulse Rate [Right Finger] Pulse Rate from SpO2 Sensor Pulse Rhythm [Right Finger] Pulse Strength [Right Finger] Respiratory Rate Respiratory Effort / Characteristics Respiratory Depth Respiratory Pattern Blood Pressure 160/117 H 160/117 H 160/117 H Blood Pressure [Right Arm] Blood Pressure Mean 118 118 118 Blood Pressure Mean [Right Arm] Blood Pressure Position [Right Arm] Pulse Oximetry Oxygen Delivery Method Sepsis Recent Fever Within 48 Hours Sepsis New/Unexplained Change in Mental Status Sepsis Action Taken by Nursing Physical Exam GENERAL: Patient vomiting. HENT: Exam performed. - Head: Normocephalic and atraumatic. EYES: Conjunctivae and EOM are normal. Right eye exhibits no discharge. Left eye exhibits no discharge. No scleral icterus. NECK: Normal range of motion. Neck supple. No JVD present. CV: Tachycardic rate, regular rhythm, normal heart sounds and intact distal pulses. There is no peripheral edema. Palpable radial pulses bue. PULM/CHEST: Effort normal and breath sounds normal. No respiratory distress. No stridor. no wheezes. no rales. ABD: The abdomen is soft. There is diffuse tenderness to palpation without guarding or rigidity. NEURO: Motor and sensation grossly intact. SKIN: Skin is warm and dry. He is not diaphoretic. PSYCH: normal mood and affect. Behavior is normal. Judgment and thought content normal. Course Course 174: The patient was evaluated in room C10. A complete history and physical exam was performed Cardiac monitoring: An order was placed for continuous cardiac monitoring. The monitor shows a rate of 100 with sinus rhythm interpreted by ak 0: Vital signs stable. Labs show elevated blood glucose with elevated anion gap. Patient started on insulin drip with no bolus. IV fluids with potassium chloride ordered for the patient. [facility] Administered Medications Sodium Chloride (Nss) 1,000 mls @ 999 mls/hr IV .Q1H1M IVAN Stop: 06/17/24 20:44 Last Admin: 05/18/24 21:14 Dose: 999 mls/hr Documented By: ILEANA Insulin Human Regular 250 (units/ Sodium Chloride) 250 mls @ 9.3 mls/hr IV .Q24H [facility]; Protocol Stop: 06/17/24 20:44 Last Admin: 05/18/24 21:28 Dose: 9.3 units/hr, 9.3 mls/hr Documented By: ILEANA Co-signed By: SHE Insulin Aspart (Insulin Aspart Per Unit Charge) 0 units SC ACHS [facility] Stop: 06/17/24 20:59 Last Admin: 05/18/24 21:24 Dose: Not Given Documented By: ILEANA Discontinued Medications Sodium Chloride (Nss) 1,000 mls @ 999 mls/hr IV .Q1H1M ONE Stop: 05/18/24 18:44 Last Infusion: 05/18/24 20:12 Dose: Infused Documented By: Admin: 05/18/24 18:47 Dose: 999 mls/hr Documented By: MAURI Metoprolol Tartrate (Metoprolol Tartrate 1 Mg/Ml Vial) 2.5 mg IV NOW STA Stop: 05/18/24 21:06 Last Admin: 05/18/24 21:16 Dose: 2.5 mg Documented By: ILEANA Ondansetron HCl (Ondansetron Inj 2 Mg/Ml 2 Ml Vial) 4 mg IV NOW STA Stop: 05/18/24 17:45 Last Admin: 05/18/24 18:47 Dose: 4 mg Documented By: MAURI Ondansetron HCl (Ondansetron Inj 2 Mg/Ml 2 Ml Vial) 4 mg IV NOW STA Stop: 05/18/24 19:28 Last Admin: 05/18/24 20:07 Dose: 4 mg Documented By: ILEANA Critical Care Time Critical Care Time: Yes Total Critical Care Time: 44 I have personally spent greater than 44 minutes of critical care time in the direct management of this patient. This includes bedside care, interpretation of diagnostic studies, and testing, discussion with consultants, patient, and family members, and other required patient management activities. This 44 minutes is in excess of all separately billable procedures. Medical Decision Making Laboratory Data Attestation: I reviewed the patient's lab results. 05/18/24 18:45 05/18/24 19:13 Lab Results 05/18/24 05/18/24 05/18/24 Range/Units 17:17 17:35 18:45 WBC 17.46 H (4.8-10.8) K/ul RBC 6.12 H (4.70-6.10) M/uL Hgb 17.9 (14.0-18.0) g/dl Hct 51.8 (42.0-52.0) % MCV 84.6 (80.0-100.0) fL MCH 29.2 (25.0-34.0) pg MCHC 34.6 (32.0-36.0) g/dL RDW Std Deviation 38.7 (36.4-46.3) fL RDW Coeff of Trevon 12.7 (11.5-14.5) % Plt Count 248 (130-400) K/uL MPV 12.4 (9.4-12.4) fL Immature Gran % (Auto) 0.7 % Neut % (Auto) 91.6 % Lymph % (Auto) 4.0 % Nash % (Auto) 3.4 % Eos % (Auto) 0.1 % Baso % (Auto) 0.2 % Neut # (Auto) 16.01 H (1.40-6.50) K/uL Lymph # (Auto) 0.69 L (1.20-3.40) K/uL Nash # (Auto) 0.59 (0.11-0.59) K/uL Eos # (Auto) 0.01 (0.00-0.50) K/uL Baso # (Auto) 0.04 (0.00-0.20) K/uL Immature Gran # (Auto) 0.12 (0.01-0.20) K/uL VBG pH 7.36 (7.36-7.41) VBG pCO2 30 L (38-50) mmHg VBG pO2 53 mmHg VBG HCO3 17 mmol/L VBG O2 Saturation 87.7 % VBG Base Excess -7.3 mEq/L Sodium Cancelled Potassium Cancelled Chloride Cancelled Carbon Dioxide Cancelled Anion Gap Cancelled BUN Cancelled Creatinine Cancelled Est Cr Clr Drug Dosing Cancelled Est GFR ( Amer) Cancelled Est GFR (Non-Af Amer) Cancelled BUN/Creatinine Ratio Cancelled Glucose Cancelled POC Glucose 288 H 297 H (70-99) mg/dl Osmolality 324 H (280-300) mOsm/kg Calcium Cancelled Magnesium Cancelled Total Bilirubin Cancelled Direct Bilirubin Cancelled AST Cancelled ALT Cancelled Alkaline Phosphatase Cancelled Total Protein Cancelled Albumin Cancelled Lipase Cancelled Ethyl Alcohol mg/dL (<10.0) mg/dl 05/18/24 05/18/24 05/18/24 Range/Units 19:13 20:45 20:47 WBC (4.8-10.8) K/ul RBC (4.70-6.10) M/uL Hgb (14.0-18.0) g/dl Hct (42.0-52.0) % MCV (80.0-100.0) fL MCH (25.0-34.0) pg MCHC (32.0-36.0) g/dL RDW Std Deviation (36.4-46.3) fL RDW Coeff of Trevon (11.5-14.5) % Plt Count (130-400) K/uL MPV (9.4-12.4) fL Immature Gran % (Auto) % Neut % (Auto) % Lymph % (Auto) % Nash % (Auto) % Eos % (Auto) % Baso % (Auto) % Neut # (Auto) (1.40-6.50) K/uL Lymph # (Auto) (1.20-3.40) K/uL Nash # (Auto) (0.11-0.59) K/uL Eos # (Auto) (0.00-0.50) K/uL Baso # (Auto) (0.00-0.20) K/uL Immature Gran # (Auto) (0.01-0.20) K/uL VBG pH (7.36-7.41) VBG pCO2 (38-50) mmHg VBG pO2 mmHg VBG HCO3 mmol/L VBG O2 Saturation % VBG Base Excess mEq/L Sodium 142 Potassium 3.9 Chloride 98 Carbon Dioxide 16 L Anion Gap 28 H BUN 24 H Creatinine 1.51 H Est Cr Clr Drug Dosing 68.2 Est GFR ( Amer) 64.2 Est GFR (Non-Af Amer) 55.4 BUN/Creatinine Ratio 15.9 Glucose 334 H* POC Glucose 315 H* 297 H (70-99) mg/dl Osmolality (280-300) mOsm/kg Calcium 10.0 Magnesium 2.0 Total Bilirubin 0.6 Direct Bilirubin 0.1 AST 13 ALT 16 Alkaline Phosphatase 79 Total Protein 7.8 Albumin 5.3 H Lipase 40 Ethyl Alcohol mg/dL < 10.0 (<10.0) mg/dl 05/18/24 Range/Units 21:33 WBC (4.8-10.8) K/ul RBC (4.70-6.10) M/uL Hgb (14.0-18.0) g/dl Hct (42.0-52.0) % MCV (80.0-100.0) fL MCH (25.0-34.0) pg MCHC (32.0-36.0) g/dL RDW Std Deviation (36.4-46.3) fL RDW Coeff of Trevon (11.5-14.5) % Plt Count (130-400) K/uL MPV (9.4-12.4) fL Immature Gran % (Auto) % Neut % (Auto) % Lymph % (Auto) % Nash % (Auto) % Eos % (Auto) % Baso % (Auto) % Neut # (Auto) (1.40-6.50) K/uL Lymph # (Auto) (1.20-3.40) K/uL Nash # (Auto) (0.11-0.59) K/uL Eos # (Auto) (0.00-0.50) K/uL Baso # (Auto) (0.00-0.20) K/uL Immature Gran # (Auto) (0.01-0.20) K/uL VBG pH (7.36-7.41) VBG pCO2 (38-50) mmHg VBG pO2 mmHg VBG HCO3 mmol/L VBG O2 Saturation % VBG Base Excess mEq/L Sodium Potassium Chloride Carbon Dioxide Anion Gap BUN Creatinine Est Cr Clr Drug Dosing Est GFR ( Amer) Est GFR (Non-Af Amer) BUN/Creatinine Ratio Glucose POC Glucose 289 H (70-99) mg/dl Osmolality (280-300) mOsm/kg Calcium Magnesium Total Bilirubin Direct Bilirubin AST ALT Alkaline Phosphatase Total Protein Albumin Lipase Ethyl Alcohol mg/dL (<10.0) mg/dl Imaging Data Attestation: I personally reviewed and interpreted this imaging study as follows: My Impression: Acute abdominal series: Chest x-ray negative. Airway clear. No pneumothorax. No consolidation. No cardiomegaly or cephalization.. No free air under the diaphragm. No fractures of the skeletal structures. No air-fluid levels nonspecific bowel gas pattern Radiologist's Impression: Chest/Abdomen X-ray 05/18/24 19:09 XR abdomen 2V w PA chest HISTORY: 43 years-old Male vomitting acute nausea with vomiting COMPARISON: 03/24/2024 TECHNIQUE: PA view of the chest with erect and supine views of the abdomen FINDINGS: Heart size is normal. Pediatric sternotomy wires are present. Lungs are clear. No pneumothorax or pleural effusion. No acute fracture. Nonobstructed bowel gas pattern. No urolith identified. IMPRESSION: 1. No acute processes of the chest. 2. Nonobstructive bowel gas pattern. ACT 112: Negative or not required by law. The above report was generated using voice recognition software. It may contain grammatical, syntax or spelling errors. Electronically signed by: Stuart Keith M.D. 05/18/2024 7:41 PM ECG Data Attestation: I personally reviewed and interpreted this ECG as follows: Additional Comments: Sinus tachycardia with rate of 116. DC 192 QRS [address] elevation or ST depression. Right bundle branch block present. No significant change to EKG from March 2024. [facility] Narrative 174: The patient was evaluated in room C10. A complete history and physical exam was performed Cardiac monitoring: An order was placed for continuous cardiac monitoring. The monitor shows a rate of 100 with sinus rhythm interpreted by me 2039: Vital signs stable. Labs show elevated blood glucose with elevated anion gap. Patient started on insulin drip with no bolus. IV fluids with potassium chloride ordered for the patient. [facility] Impression & Plan DKA (diabetic ketoacidosis) Discharge Plan Visit Data Chief Complaint: Vomiting Stated Complaint: VOMIT ED Provider: Tim Lees Discharge Problem: DKA (diabetic ketoacidosis) Patient Disposition: Admitted As Inpatient Forms Stand Alone Forms: My [facility] Prescriptions Prescriptions: No Action atorvastatin 40 mg tablet 40 mg PO QAM pantoprazole 40 mg Tablet,Delayed Release (Dr/Ec) 40 mg PO DAILYBB Rx Instructions: TAKE 1 TAB BY MOUTH IN SHANNON MORNING. 30 MINUTES BEFORE THE FIRST MEAL OF TE DAY. DNO CRUSH, SPLIT OR CHEW THE TAB metoprolol succinate 50 mg tablet extended release 24 hr 75 mg PO QAM glipizide 10 mg tablet extended release 24hr 10 mg PO DAILYBB spironolactone 25 mg tablet 25 mg PO QAM gabapentin 300 mg capsule 300 mg PO TID furosemide 20 mg tablet 20 mg PO QAM Rx Instructions: Take 20mg by mouth once in the morning, may take an extra 20mg if weight gain is 3lbs in 1 day or 5lbs in 1 week ezetimibe 10 mg tablet 10 mg PO QAM fenofibrate nanocrystallized 145 mg tablet 145 mg PO QAM insulin glargine 100 unit/mL (3 mL) insulin pen 20 unit SUBCUT QAM Entresto 24-26 mg tablet 1 tab PO BID Xarelto 20 mg tablet 20 mg PO DAILYBD promethazine 6.25 mg/5 mL Syrup 6.25 mg PO AC Qty: 240 0RF Referrals Referrals: Dany Caruso MD [Primary Care Provider] - Discharge Problem: DKA (diabetic ketoacidosis) Qualifiers: Diabetes mellitus type: other specified (including REESE) Diabetes mellitus complication detail: without coma Qualified Code(s): E13.10 - Other specified diabetes mellitus with ketoacidosis without coma
[2024-05-18] MEDS: THIAMINE HCL 100 MG in SYRINGE 9 ML IV STA (22:10)
--- NOTE | 2024-05-18 22:47 | History & Physical Report ---
Date of Service May 18, 2024 Assessment & Plan (1) Hyperglycemic crisis in diabetes mellitus: Plan: Hyperglycemic crisis in diabetes mellitus Secondary to GI illness, ? Gastroparesis flareup ? Insulin compliance History DM 2 insulin requiring, well-controlled as of 6.1 recent hemoglobin A1c of last month chronic systolic heart failure secondary to nonischemic cardiomyopathy (EF 35 to 39%, TTE 2022), patient on the dry side hypertension, elevated secondary to illness, possible alcohol withdrawal ARF secondary to GI illness hyperlipidemia on statin Rx history unprovoked PE status post Xarelto past tobacco abuse Admit to medical telemetry given BP elevation Titrate home BP meds Wean off IV insulin by initiating basal bolus subcutaneous insulin adjusted for clear liquid diet for now, ISS BG goal 1 10-1 40, carb count coverage, update hemoglobin A1c May benefit from pharmacy glycemic control consultation Baseline UA, monitor creatinine response to gentle IV hydration in consideration of cardiomyopathy hold Entresto, spironolactone, home diuretic Rx until creatinine back to baseline [place] S at risk protocol, DT precautions DVT prophylaxis. Resume Xarelto if no bleeding on CT imaging Full code Text document was generated using [employer]etal voice recognition software. It may contain grammatical or spelling errors. Kindly contact undersigned for clarification of any documentation item in question. ADDENDUM: 05/19, [address] abdomen pelvis: Bowel loops are nondilated. The entire: Is contracted which gives the appearance of mild wall thickening. There is diverticulosis of the left and sigmoid colon without focal diverticulitis. Mild colitis is suspected. No pneumoperitoneum, free fluid, or abscess is seen. Lactic acid noted 2.4 AP Possible infectious colitis Possible sepsis Zosyn, GI consult Hold Xarelto for now given possible procedure IV heparin while Xarelto on hold History of Present Illness Chief Complaint: Abdominal pain, vomiting Primary Care Provider: Dany Caruso MD History obtained from patient and records. Medical history significant for chronic systolic heart failure secondary to nonischemic cardiomyopathy (EF 35 to 39%, TTE 2022), history congenital heart surgery, hypertension, hyperlipidemia, history unprovoked PE status post Xarelto, DM2 insulin requiring, GERD, gastroparesis as per records, chronic LLE wound, alcohol abuse as per records, past tobacco abuse, medical noncompliance as per records. Recent confinement last month for gastroparesis flareup. Patient not feeling well since last week. Achy abdominal pain with nausea emesis. Denies diarrhea. No chest pain, no SOB, headache. Blood sugars 200s as per patient. Claims to be compliant with regimen. Patient went on a family trip to [place] few days ago but had to return due to worsening symptoms. BSG 300s upon arrival at the ER. IV insulin initiated at the ER. Medical History as above Surgical History : VSD surgery, ankle surgery, dental surgery, knee surgery Family History : DM Personal/Social history : Past tobacco abuse, alcohol abuse as per records which patient denies, currently unemployed Allergies Allergy/AdvReac Type Severity Reaction Status Date / Time Sulfa (Sulfonamide Allergy Intermediate ITCHY/HOT Verified 03/24/24 09:17 Antibiotics) metformin AdvReac Intermediate Diarrhea Verified 03/24/24 09:17 morphine AdvReac Intermediate Nausea Verified 03/24/24 09:17 semaglutide [From Ozempic] AdvReac Intermediate Hallucinati Verified 03/24/24 09:17 ng Home Medications Medication Instructions Recorded Confirmed Type atorvastatin 40 mg tablet 40 mg PO [facility] 06/23/21 05/18/24 History pantoprazole 40 mg tablet,delayed 40 mg PO DAILYBB 11/19/23 05/18/24 History release ezetimibe 10 mg tablet 10 mg PO [facility] 02/09/24 05/18/24 History fenofibrate nanocrystallized 145 145 mg PO [facility] 02/09/24 05/18/24 History mg tablet furosemide 20 mg tablet 20 mg PO QA 02/09/24 05/18/24 History gabapentin 300 mg capsule 300 mg PO TID 02/09/24 05/18/24 History glipizide 10 mg tablet, extended 10 mg PO DAILYBB 02/09/24 05/18/24 History release 24 hr insulin glargine 100 unit/mL (3 20 unit subcut [facility] 02/09/24 05/18/24 History mL) subcutaneous pen metoprolol succinate 50 mg 75 mg PO [facility] 02/09/24 05/18/24 History tablet,extended release 24 hr sacubitril 24 mg-valsartan 26 mg 1 tab PO BID 02/09/24 05/18/24 History tablet (Entresto) spironolactone 25 mg tablet 25 mg PO [facility] 02/09/24 05/18/24 History rivaroxaban 20 mg tablet (Xarelto) 20 mg PO DAILYBD 03/24/24 05/18/24 History promethazine 6.25 mg/5 mL oral 6.25 mg (5 mL) PO AC #240 mL 04/01/24 05/18/24 Rx syrup Past Med/Surg History Problem List DKA (diabetic ketoacidosis) (Acute) Malnutrition Nausea & vomiting Constipation Weight loss Lactic acid acidosis Metabolic acidosis Intractable nausea and vomiting (Acute) BONILLA (acute kidney injury) (Acute) Deep vein thrombosis, lower left extremity Non-ischemic cardiomyopathy New onset of congestive heart failure (04/2022) Overweight (BMI 25.0-29.9) Alcohol abuse Pleural effusion, bilateral (Acute) Dyspnea (Acute) Right bundle branch block Vitamin D deficiency 8.9 in 06/2019 HLD (hyperlipidemia) TG 2049, TC 301 in 06/2019 T2DM (type 2 diabetes mellitus) HTN (hypertension) GERD (gastroesophageal reflux disease) Medical History Chronic wound HFrEF (heart failure with reduced ejection fraction) Pulmonary emboli (04/2022) Gastroparesis Hyperglycemic crisis in diabetes mellitus DKA (diabetic ketoacidosis) History of kidney stones Open trimalleolar fracture (2020) Dislocation of ankle, right, open (2020) Surgical History History of ankle surgery (2020) right ankle external fixator/I&D History of colonoscopy History of esophagogastroduodenoscopy (EGD) History of tooth extraction History of wisdom tooth extraction S/P knee surgery remove fluid off right knee History of heart surgery (1983) VSD- age 3---no issues since surgery, 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 Aunt Cardiac disorder Other No family history of adverse response to anesthesia Denies family history of Ovarian cancer Prostate cancer Myocardial infarction Breast cancer Colorectal cancer Social History (Reviewed 05/19/24 @ 10:54 by JASON Guzman Jr Smoking Status: Former smoker Age Started Using Tobacco: 16; Age Quit Using Tobacco: 26; packs per day: 0.5; Second Hand Exposure: No; Do You Dip or Chew Tobacco: No; Hx Alcohol Use: Yes Alcohol type: wine Hx Substance Use: Yes Last Used Substance: Days (ago) Preferred Language: Ivorian Communication Ability: Effective Visual Impairment: No Limitations Hearing Ability: Normal Senior Underwriter Required: No Beliefs That Will Affect Care: None marital status: Single Current Living Situation: Significant Other current occupational status: employed current occupation: [employer] How many Children do You have: 0 Other Information That Helps Us Care for You: No Feels Safe at Home: Yes Safety Concerns: Feels Safe At This Time Dental Care, Regularly: Yes Physical Activity Frequency: 3-4 Times per Week Assistive Devices: None Review of Systems Review of Systems: As per HPI, all other systems reviewed and negative Physical Exam Physical Exam: GENERAL: Slightly uncomfortable, obese, no respiratory distress SKIN: Normal color, warm HEENT: Tradewinds palpebral conjunctivae, no ptosis, dry buccal mucosa NECK : Supple, no tenderness CHEST : CTA, no tenderness HEART : Tachycardic, no obvious murmurs ABDOMEN: Some distention, minimal epigastric tenderness EXTREMITIES : Minimal LLE swelling without tenderness, no other conspicuous deformities noted NEUROLOGIC : Coherent, no facial asymmetry, no other gross focality Results & Data Results & Data Vital Signs (Past 12 Hours) Vital Signs Temp Pulse Pulse Resp BP BP Pulse Ox 05/18/24 22:11 115 H 16 147/94 H 96 05/18/24 22:10 110 H 147/94 H 05/18/24 21:33 109 H 19 160/117 H 95 05/18/24 21:31 160/117 H 05/18/24 21:31 160/117 H 05/18/24 21:31 160/117 H 05/18/24 21:30 103 H 20 05/18/24 21:21 104 H 27 H 97 05/18/24 21:16 110 H 18 136/111 H 96 05/18/24 21:16 112 H 136/111 H 05/18/24 20:00 110 H 16 181/112 H 95 05/18/24 19:27 106 H 22 189/106 H 96 05/18/24 18:49 114 H 18 150/100 H 94 05/18/24 18:47 112 H 20 150/100 H 96 05/18/24 18:08 117 H 05/18/24 17:44 97 05/18/24 17:14 36.7 C 123 H 14 159/97 H 96 05/18/24 17:06 103 H 24 151/101 H 95 O2 Del Method 05/18/24 22:11 Room Air 05/18/24 22:10 05/18/24 21:33 Room Air 05/18/24 21:31 05/18/24 21:31 05/18/24 21:31 05/18/24 21:30 05/18/24 21:21 05/18/24 21:16 Room Air 05/18/24 21:16 05/18/24 20:00 Room Air 05/18/24 19:27 Room Air 05/18/24 18:49 Room Air 05/18/24 18:47 Room Air 05/18/24 18:08 05/18/24 17:44 Room Air 05/18/24 17:14 Room Air 05/18/24 17:06 Room Air Laboratory Results Laboratory Results WBC 17.46 K/ul (4.8-10.8) H 05/18/24 18:45 RBC 6.12 M/uL (4.70-6.10) H 05/18/24 18:45 Hgb 17.9 g/dl (14.0-18.0) 05/18/24 18:45 Hct 51.8 % (42.0-52.0) 05/18/24 18:45 MCV 84.6 fL (80.0-100.0) 05/18/24 18:45 MCH 29.2 pg (25.0-34.0) 05/18/24 18:45 MCHC 34.6 g/dL (32.0-36.0) 05/18/24 18:45 RDW Std Deviation 38.7 fL (36.4-46.3) 05/18/24 18:45 RDW Coeff of Trevon 12.7 % (11.5-14.5) 05/18/24 18:45 Plt Count 248 K/uL (130-400) 05/18/24 18:45 MPV 12.4 fL (9.4-12.4) 05/18/24 18:45 Immature Gran % (Auto) 0.7 % 05/18/24 18:45 Neut % (Auto) 91.6 % 05/18/24 18:45 Lymph % (Auto) 4.0 % 05/18/24 18:45 Pepin % (Auto) 3.4 % 05/18/24 18:45 Eos % (Auto) 0.1 % 05/18/24 18:45 Baso % (Auto) 0.2 % 05/18/24 18:45 Neut # (Auto) 16.01 K/uL (1.40-6.50) H 05/18/24 18:45 Lymph # (Auto) 0.69 K/uL (1.20-3.40) L 05/18/24 18:45 Pepin # (Auto) 0.59 K/uL (0.11-0.59) 05/18/24 18:45 Eos # (Auto) 0.01 K/uL (0.00-0.50) 05/18/24 18:45 Baso # (Auto) 0.04 K/uL (0.00-0.20) 05/18/24 18:45 Immature Gran # (Auto) 0.12 K/uL (0.01-0.20) 05/18/24 18:45 VBG pH 7.36 (7.36-7.41) 05/18/24 18:45 VBG pCO2 30 mmHg (38-50) L 05/18/24 18:45 VBG pO2 53 mmHg 05/18/24 18:45 VBG HCO3 17 mmol/L 05/18/24 18:45 VBG O2 Saturation 87.7 % 05/18/24 18:45 VBG Base Excess -7.3 mEq/L 05/18/24 18:45 Sodium 142 mmol/L (136-145) 05/18/24 19:13 Potassium 3.9 mmol/L (3.5-5.1) 05/18/24 19:13 Chloride 98 mmol/L (98-107) 05/18/24 19:13 Carbon Dioxide 16 mmol/L (21-32) L 05/18/24 19:13 Anion Gap 28 (3-11) H 05/18/24 19:13 BUN 24 mg/dl (6-23) H 05/18/24 19:13 Creatinine 1.51 mg/dl (0.6-1.4) H 05/18/24 19:13 Est Cr Clr Drug Dosing 68.2 ml/min 05/18/24 19:13 Est GFR ( Amer) 64.2 ml/min 05/18/24 19:13 Est GFR (Non-Af Amer) 55.4 ml/min 05/18/24 19:13 BUN/Creatinine Ratio 15.9 (10-20) 05/18/24 19:13 Glucose 334 mg/dl (70-99(Fasting)) H* 05/18/24 19:13 POC Glucose 308 mg/dl (70-99) H* 05/18/24 22:28 Osmolality 324 mOsm/kg (280-300) H 05/18/24 18:45 Calcium 10.0 mg/dl (8.6-10.3) 05/18/24 19:13 Magnesium 2.0 mg/dl (1.7-2.4) 05/18/24 19:13 Total Bilirubin 0.6 mg/dl (0.2-1.0) 05/18/24 19:13 Direct Bilirubin 0.1 mg/dl (0-0.2) 05/18/24 19:13 AST 13 U/L (13-39) 05/18/24 19:13 ALT 16 U/L (7-52) 05/18/24 19:13 Alkaline Phosphatase 79 U/L (34-104) 05/18/24 19:13 Total Protein 7.8 gm/dl (6.0-8.3) 05/18/24 19:13 Albumin 5.3 gm/dl (3.4-5.0) H 05/18/24 19:13 Lipase 40 U/L (11-82) 05/18/24 19:13 Ethyl Alcohol mg/dL < 10.0 mg/dl (<10.0) 05/18/24 19:13 Impressions Chest/Abdomen X-ray 05/18/24 19:09 XR abdomen 2V w PA chest HISTORY: 43 years-old Male vomitting acute nausea with vomiting COMPARISON: 03/24/2024 TECHNIQUE: PA view of the chest with erect and supine views of the abdomen FINDINGS: Heart size is normal. Pediatric sternotomy wires are present. Lungs are clear. No pneumothorax or pleural effusion. No acute fracture. Nonobstructed bowel gas pattern. No urolith identified. IMPRESSION: 1. No acute processes of the chest. 2. Nonobstructive bowel gas pattern. ACT 112: Negative or not required by law. The above report was generated using voice recognition software. It may contain grammatical, syntax or spelling errors. Electronically signed by: Stuart Keith M.D. 05/18/2024 7:41 PM Diagnostic Findings EKG as per my interpretation :Rate 120, sinus tachycardia, LAD, LAFB, RBBB, septal infarct, inferior infarct, T wave abnormalities inferior leads
[2024-05-18] MEDS ORDERED: PROMETHAZINE HCL 12.5 MG in SODIUM CHLORIDE 0.9% 50 ML IV PRN (22:51)
[2024-05-18] MEDS ORDERED: LORazepam 3 MG in SYRINGE 1.5 ML IV PRN (22:51)
[2024-05-18] MEDS ORDERED: Ativan IV Alcohol Withdrawal--Active Protocol IV PRN (22:51)
[2024-05-18] MEDS ORDERED: LORazepam 2 MG in SYRINGE 1 ML IV PRN (22:51)
[2024-05-18] MEDS: FOSAPREPITANT DIMEGLUMINE 150 MG in SODIUM CHLORIDE 0.9% 145 ML IV ONE (22:52)
[2024-05-18] MEDS: GABAPENTIN 300 MG CAP PO STA (23:15)
[2024-05-18] MEDS: PROMETHAZINE 12.5 MG/50.5 ML BAG IV STA (23:15)
[2024-05-18] MEDS: POTASSIUM CHLORIDE 20 MEQ in LACTATED RINGER'S 1,000 ML IV ONE (23:15)
[2024-05-18] MEDS: LANTUS PER UNIT CHARGE SQ STA (23:26)
[2024-05-18] MEDS: LORazepam 1 MG in SYRINGE 0.5 ML IV PRN (23:46)
[2024-05-18] MEDS: OPTIRAY 320 100ml IV ONE (23:56)
[2024-05-19 01:03] LABS: Base Excess VBG -3.3 mEq/L; HCO3 VBG 20 mmol/L; Oxygen Saturation VBG 98.6 %; PCO2 VBG 30 mmHg (38-50); PO2 VBG 86 mmHg; pH VBG 7.43 (7.36-7.41)
[2024-05-19 01:19] LABS: Calcium 9.5 mg/dl (8.6-10.3); Potassium 3.8 mmol/L (3.5-5.1)
[2024-05-19 01:25] LABS: Creatinine Clr Calc Pharmacy 76.2 ml/min; Est GFR (African American) 73.5 ml/min; Est GFR (Non-African American) 63.4 ml/min
[2024-05-19 01:34] LABS: Partial Thromboplastin Ratio 0.8; Partial Thromboplastin Time 21 Seconds (21-31)
[2024-05-19 01:45] LABS: Hematocrit (blood only) 46.4 % (42.0-52.0); Hemoglobin 16.3 g/dl (14.0-18.0); Mean Corpuscular Hemoglobin 29.1 pg (25.0-34.0); Mean Corpuscular Hgb Conc 35.1 g/dL (32.0-36.0); Mean Corpuscular Volume 82.9 fL (80.0-100.0); Mean Platelet Volume 12.7 fL (9.4-12.4); Platelet Count 169 K/uL (130-400); RDW Coefficient of Variation 12.5 % (11.5-14.5); RDW Standard Deviation 37.5 fL (36.4-46.3); White Blood Count 18.43 K/ul (4.8-10.8)
[2024-05-19 01:56] LABS: Thyroid Stimulating Hormone 1.254 uIu/ml (0.300-4.500)
--- NOTE | 2024-05-19 01:57 | CT Scan Report ---
Exam(s): CT ABDOMEN + PELVIS With Contrast IV Amt: 94 ml EXAM: CT Abdomen and Pelvis With Intravenous Contrast CLINICAL HISTORY: Reason for exam: abd pain. TECHNIQUE: Axial computed tomography images of the abdomen and pelvis with intravenous contrast. CTDI is 24.75 mGy and DLP is 1301.59 mGy-cm. Automated exposure control was utilized for the study. A dose lowering technique was utilized adhering to the principles of ALARA. CONTRAST: Patient received 94 ml of IV contrast COMPARISON: March 24, 2024 FINDINGS: Lung bases: Unremarkable. No mass. No consolidation. ABDOMEN: Liver: Mild fatty infiltration of the liver. No focal liver lesion is seen. Gallbladder and bile ducts: Unremarkable. No calcified stones. No ductal dilation. Pancreas: Unremarkable. No mass. No ductal dilation. Spleen: Unremarkable. No splenomegaly. Adrenals: Unremarkable. No mass. Kidneys and ureters: Unremarkable. No solid mass. No hydronephrosis. Stomach and bowel: Bowel loops are nondilated. The entire: Is contracted which gives the appearance of mild wall thickening. There is diverticulosis of the left and sigmoid colon without focal diverticulitis. PELVIS: Appendix: The appendix is normal. Bladder: Unremarkable. No mass. Reproductive: Unremarkable as visualized. ABDOMEN and PELVIS: Intraperitoneal space: Unremarkable. No free air. No significant fluid collection. Bones/joints: Mild degenerative changes throughout the spine. No acute fracture or subluxation is seen. Soft tissues: Unremarkable. Vasculature: Unremarkable. No abdominal aortic aneurysm. Lymph nodes: Unremarkable. No enlarged lymph nodes. IMPRESSION: Bowel loops are nondilated. The entire: Is contracted which gives the appearance of mild wall thickening. There is diverticulosis of the left and sigmoid colon without focal diverticulitis. Mild colitis is suspected. No pneumoperitoneum, free fluid, or abscess is seen. Electronically signed by: Nickolas Riddle MD 05/19/24 01:56 AM
[2024-05-19 02:02] LABS: Basophils # (auto) 0.03 K/uL (0.00-0.20); Basophils % (auto) 0.2 %; Eosinophils # (auto) 0.01 K/uL (0.00-0.50); Eosinophils % (auto) 0.1 %; Immature Granulocytes # (auto) 0.11 K/uL (0.01-0.20); Immature Granulocytes % (auto) 0.6 %; Lymphocytes # (auto) 0.61 K/uL (1.20-3.40); Lymphocytes % (auto) 3.3 %; Monocytes # (auto) 0.81 K/uL (0.11-0.59); Monocytes % (auto) 4.4 %; Neutrophils # (auto) 16.86 K/uL (1.40-6.50); Neutrophils % (auto) 91.4 %
[2024-05-19] MEDS: POTASSIUM CHLORIDE 20 MEQ in LACTATED RINGER'S 1,000 ML IV STA (05:33)
[2024-05-19 05:50] LABS: Basophils # (auto) 0.02 K/uL (0.00-0.20); Basophils % (auto) 0.1 %; Hematocrit (blood only) 47.2 % (42.0-52.0); Immature Granulocytes # (auto) 0.09 K/uL (0.01-0.20); Immature Granulocytes % (auto) 0.6 %; Lymphocytes # (auto) 0.71 K/uL (1.20-3.40); Lymphocytes % (auto) 4.3 %; Mean Corpuscular Hemoglobin 28.5 pg (25.0-34.0); Mean Corpuscular Hgb Conc 33.9 g/dL (32.0-36.0); Mean Corpuscular Volume 84.1 fL (80.0-100.0); Mean Platelet Volume 12.1 fL (9.4-12.4); Monocytes # (auto) 0.82 K/uL (0.11-0.59); Neutrophils # (auto) 14.69 K/uL (1.40-6.50); Platelet Count 211 K/uL (130-400); RDW Coefficient of Variation 12.5 % (11.5-14.5); RDW Standard Deviation 38.4 fL (36.4-46.3); Red Blood Count 5.61 M/uL (4.70-6.10); White Blood Count 16.33 K/ul (4.8-10.8)
[2024-05-19 06:01] LABS: BUN Creatinine Ratio 18.1 (10-20); Calcium 9.8 mg/dl (8.6-10.3); Creatinine Clr Calc Pharmacy 88.7 ml/min; Est GFR (African American) 88.3 ml/min; Est GFR (Non-African American) 76.2 ml/min; Potassium 4.5 mmol/L (3.5-5.1)
[2024-05-19] MEDS ORDERED: DEXTROSE 50% 50 ML SYRINGE IV PRN (07:12)
[2024-05-19] MEDS ORDERED: GLUCAGON FOR INJ 1 MG VIAL SQ PRN (07:12)
[2024-05-19] MEDS ORDERED: CARBOHYDRATES FOR HYPOGLYCEMIA PO PRN (07:12)
[2024-05-19] MEDS ORDERED: GLUCOSE 10 TAB/TUBE PO PRN (07:12)
[2024-05-19] MEDS ORDERED: GLUCOSE 40% GEL 15 GM TUBE PO PRN (07:12)
[2024-05-19] MEDS: PIPERACILLIN/TAZOBACTAM 4.5 GM/100ML D5W IV ONE (07:33)
[2024-05-19] MEDS: LANTUS PER UNIT CHARGE SQ STA (07:33)
[2024-05-19] MEDS: PANTOprazole 40 MG TAB PO SCH (07:33)
[2024-05-19] MEDS: LACTATED RINGER'S 1,000 ML IV ONE (07:33)
[2024-05-19] MEDS: EZETIMIBE 10 MG TAB PO SCH (07:34)
[2024-05-19] MEDS: FOLIC ACID 1 MG TAB PO SCH (07:34)
[2024-05-19] MEDS: GABAPENTIN 300 MG CAP PO SCH (07:34)
[2024-05-19] MEDS: METOPROLOL SUCC 25MG EXT REL TAB PO SCH (07:34)
[2024-05-19] MEDS: FENOFIBRATE NANOCRYSTALLIZED 145 MG TABLET PO SCH (07:34)
[2024-05-19] MEDS: ATORVASTATIN 40 MG TAB PO SCH (07:34)
[2024-05-19] MEDS: MULTIVITAMIN TAB PO SCH (07:35)
[2024-05-19] MEDS: THIAMINE HCL 100 MG TAB PO SCH (07:35)
[2024-05-19 07:36] LABS: Estimated Average Glucose 143 mg/dl; Hemoglobin A1C 6.6 % (4.5-5.6)
[2024-05-19] MEDS: HEPARIN 25000 UNIT/500 ML D5W IV ONE (07:45)
[2024-05-19] MEDS: Heparin IV Adult Wt-Based Standard *NO* INITIAL Bolus Protocol IV STA (08:11)
[2024-05-19] MEDS: HEPARIN SODIUM/DEXTROSE 25,000 UNITS/500 ML BAG IV SCH (08:12)
[2024-05-19] MEDS: PIPERACILLIN/TAZOBACTAM 4.5 GM/100 ML BAG IV STA (08:36)
[2024-05-19 08:43] LABS: INR 1.1 (0.9-1.1); Partial Thromboplastin Ratio 0.9; Partial Thromboplastin Time 23 Seconds (21-31); Prothrombin Time 11.4 Seconds (9.0-12.0)
[2024-05-19] MEDS: INSULIN ASPART PER UNIT CHARGE SC SCH (09:24)
--- NOTE | 2024-05-19 10:58 | Gastrointestinal Consultation ---
Date of Consultation May 19, 2024 Assessment & Plan (1) Nausea & vomiting: This is a difficult problem in a patient who is not willing to accept any treatment recommendations. I told him that he was in a "catch-22". He won't take miralax because he isn't eating. Because of that the pain builds up which leads to him not eating and so forth. I suggested he try taking miralax on a daily basis just to see what happens but he is not really willing to hear that. He seems to have reached a profound feeling of hopelessness about all of his medical problems and that there is nothing he can do to help himself. If he isn't willing to try things there isn't much we can do. I might consider a psych consult because of the way he describes his feeling of hopelessness and the fact that he is "tired of all these doctors giving him false hope". History of Present Illness Reason for Consultation: "colitis" Attending Physician: Deon Pacheco MD History of Present Illness 43 year old man with heart failure, "gastroparesis" and brittle diabetes. When asked what was wrong with his gut he went into a long diatribe about the negative cycle his gut stays in and how he realizes there is no hope. He tells me he has significant pain in his abdomen that seems to be getting worse. He does admit he gets relief when he moves his bowels. He doesn't take miralax on a daily basis as has been recommended to him because he says if you don't eat there is no reason to take it. He stops eating when the pain gets worse because he doesn't feel like eating. He also says that the "portions are getting smaller and smaller" so it is almost not worth eating. He tells me he is tired of people telling him to "do this and do that" when he has realized that nothing can be done. With his erratic eating he goes into DKA frequently. CT scan on admit showed "entire colon contracted giving the picture of thickened wall". Allergies Allergy/AdvReac Type Severity Reaction Status Date / Time Sulfa (Sulfonamide Allergy Intermediate ITCHY/HOT Verified 03/24/24 09:17 Antibiotics) metformin AdvReac Intermediate Diarrhea Verified 03/24/24 09:17 morphine AdvReac Intermediate Nausea Verified 03/24/24 09:17 semaglutide [From Ozempic] AdvReac Intermediate Hallucinati Verified 03/24/24 09:17 ng Home Medications Medication Instructions Recorded Confirmed Type atorvastatin 40 mg tablet 40 mg PO QAM 06/23/21 05/18/24 History pantoprazole 40 mg tablet,delayed 40 mg PO DAILYBB 11/19/23 05/18/24 History release ezetimibe 10 mg tablet 10 mg PO QAM 02/09/24 05/18/24 History fenofibrate nanocrystallized 145 145 mg PO QAM 02/09/24 05/18/24 History mg tablet furosemide 20 mg tablet 20 mg PO QAM 02/09/24 05/18/24 History gabapentin 300 mg capsule 300 mg PO TID 02/09/24 05/18/24 History glipizide 10 mg tablet, extended 10 mg PO DAILYBB 02/09/24 05/18/24 History release 24 hr insulin glargine 100 unit/mL (3 20 unit subcut QA 02/09/24 05/18/24 History mL) subcutaneous pen metoprolol succinate 50 mg 75 mg PO QAM 02/09/24 05/18/24 History tablet,extended release 24 hr sacubitril 24 mg-valsartan 26 mg 1 tab PO BID 02/09/24 05/18/24 History tablet (Entresto) spironolactone 25 mg tablet 25 mg PO QAM 02/09/24 05/18/24 History rivaroxaban 20 mg tablet (Xarelto) 20 mg PO DAILYBD 03/24/24 05/18/24 History promethazine 6.25 mg/5 mL oral 6.25 mg (5 mL) PO AC #240 mL 04/01/24 05/18/24 Rx syrup Patient History Medical History Chronic wound HFrEF (heart failure with reduced ejection fraction) Pulmonary emboli (04/2022) Gastroparesis Hyperglycemic crisis in diabetes mellitus DKA (diabetic ketoacidosis) History of kidney stones Open trimalleolar fracture (2020) Dislocation of ankle, right, open (2020) Surgical History History of ankle surgery (2020) right ankle external fixator/I&D History of colonoscopy History of esophagogastroduodenoscopy (EGD) History of tooth extraction History of wisdom tooth extraction S/P knee surgery remove fluid off right knee History of heart surgery (1983) VSD- age 3---no issues since surgery, no jewelry dipper Family History Father Cardiac disorder Mother No problems noted. Aunt Cardiac disorder Other No family history of adverse response to anesthesia Denies family history of Ovarian cancer Prostate cancer Myocardial infarction Breast cancer Colorectal cancer Social History Smoking Status: Former smoker Age Started Using Tobacco: 16; Age Quit Using Tobacco: 26; packs per day: 0.5; Second Hand Exposure: No; Do You Dip or Chew Tobacco: No; Hx Alcohol Use: Yes Alcohol type: wine Hx Substance Use: Yes Last Used Substance: Days (ago) Preferred Language: Dutch Communication Ability: Effective Visual Impairment: No Limitations Hearing Ability: Normal Home Restoration Service Cleaner Required: No Beliefs That Will Affect Care: None marital status: Single Current Living Situation: Significant Other current occupational status: employed current occupation: [employer] How many Children do You have: 0 Other Information That Helps Us Care for You: No Feels Safe at Home: Yes Safety Concerns: Feels Safe At This Time Dental Care, Regularly: Yes Physical Activity Frequency: 3-4 Times per Week Assistive Devices: None Review of Systems Review of Systems: All systems reviewed & are unremarkable except as noted in HPI & below Physical Exam Constitutional: WD/WN, vitals as above Neck: trachea midline, no thyromegaly Respiratory: normal respiratory effort, lungs clear to auscultation Cardiovascular: RRR, no murmur, no edema Gastrointestinal (Abdomen): Percussion/Palpation: + abdomen tender and abdomen soft; no hepatosplenomegaly Results & Data Vital Signs (Past 12 Hours) Vital Signs Temp Pulse Pulse Resp BP BP Pulse Ox 05/19/24 10:00 86 20 111/79 98 05/19/24 09:50 84 05/19/24 09:23 91 H 18 138/94 98 05/19/24 08:00 90 16 139/104 H 95 05/19/24 07:00 106 H 18 153/83 H 98 05/19/24 05:34 36.8 C 96 H 19 140/86 91 05/19/24 04:00 133/89 05/19/24 04:00 98 H 17 133/89 91 05/19/24 03:06 100 H 19 117/78 94 05/19/24 01:54 110 H 20 136/93 92 05/19/24 01:15 107 H 21 98 05/19/24 01:03 142/97 H 05/19/24 01:00 110 H 22 142/97 H 93 05/19/24 00:09 99 H 17 138/90 95 05/19/24 00:00 05/19/24 00:00 36.9 C 106 H 22 138/90 96 05/19/24 00:00 05/18/24 23:00 113 H 20 135/93 97 05/18/24 22:55 110 H Pulse Ox O2 Del Method O2 Del Method 05/19/24 10:00 Room Air 05/19/24 09:50 05/19/24 09:23 Room Air 05/19/24 08:00 Room Air 05/19/24 07:00 Room Air 05/19/24 05:34 Room Air 05/19/24 04:00 05/19/24 04:00 05/19/24 03:06 Room Air 05/19/24 01:54 Room Air 05/19/24 01:15 Room Air 05/19/24 01:03 05/19/24 01:00 Room Air 05/19/24 00:09 Room Air 05/19/24 00:00 Room Air 05/19/24 00:00 Room Air 05/19/24 00:00 96 Room Air 05/18/24 23:00 Room Air 05/18/24 22:55 Laboratory Results 05/19/24 05/19/24 05/19/24 Range/Units 09:50 08:21 08:01 WBC (4.8-10.8) K/ul RBC (4.70-6.10) M/uL Hgb (14.0-18.0) g/dl Hct (42.0-52.0) % MCV (80.0-100.0) fL MCH (25.0-34.0) pg MCHC (32.0-36.0) g/dL RDW Std Deviation (36.4-46.3) fL RDW Coeff of Trevon (11.5-14.5) % Plt Count (130-400) K/uL MPV (9.4-12.4) fL Immature Gran % (Auto) % Neut % (Auto) % Lymph % (Auto) % [place] % (Auto) % Eos % (Auto) % Baso % (Auto) % Neut # (Auto) (1.40-6.50) K/uL Lymph # (Auto) (1.20-3.40) K/uL [place] # (Auto) (0.11-0.59) K/uL Eos # (Auto) (0.00-0.50) K/uL Baso # (Auto) (0.00-0.20) K/uL Immature Gran # (Auto) (0.01-0.20) K/uL PT 11.4 (9.0-12.0) Seconds INR 1.1 (0.9-1.1) APTT 23 (21-31) Seconds PTT Ratio 0.9 VBG pH (7.36-7.41) VBG pCO2 (38-50) mmHg VBG pO2 mmHg VBG HCO3 mmol/L VBG O2 Saturation % VBG Base Excess mEq/L Sodium Potassium Chloride Carbon Dioxide Anion Gap BUN Creatinine Est Cr Clr Drug Dosing Est GFR ( Amer) Est GFR (Non-Af Amer) BUN/Creatinine Ratio Glucose POC Glucose 187 H 87 (70-99) mg/dl Estimat Average Glucose mg/dl Hemoglobin A1c (4.5-5.6) % Osmolality (280-300) mOsm/kg Lactate (0.4-2.0) mmol/L Calcium Magnesium Total Bilirubin Direct Bilirubin AST ALT Alkaline Phosphatase Total Protein Albumin Lipase Procalcitonin (0-0.5) ng/ml TSH (0.300-4.500) uIu/ml Ethyl Alcohol mg/dL (<10.0) mg/dl 05/19/24 05/19/24 05/19/24 Range/Units 07:01 06:10 05:29 WBC 16.33 H (4.8-10.8) K/ul RBC 5.61 (4.70-6.10) M/uL Hgb 16.0 (14.0-18.0) g/dl Hct 47.2 (42.0-52.0) % MCV 84.1 (80.0-100.0) fL MCH 28.5 (25.0-34.0) pg MCHC 33.9 (32.0-36.0) g/dL RDW Std Deviation 38.4 (36.4-46.3) fL RDW Coeff of Trevon 12.5 (11.5-14.5) % Plt Count 211 (130-400) K/uL MPV 12.1 (9.4-12.4) fL Immature Gran % (Auto) 0.6 % Neut % (Auto) 90.0 % Lymph % (Auto) 4.3 % [place] % (Auto) 5.0 % Eos % (Auto) 0.0 % Baso % (Auto) 0.1 % Neut # (Auto) 14.69 H (1.40-6.50) K/uL Lymph # (Auto) 0.71 L (1.20-3.40) K/uL [place] # (Auto) 0.82 H (0.11-0.59) K/uL Eos # (Auto) 0.00 (0.00-0.50) K/uL Baso # (Auto) 0.02 (0.00-0.20) K/uL Immature Gran # (Auto) 0.09 (0.01-0.20) K/uL PT (9.0-12.0) Seconds INR (0.9-1.1) APTT (21-31) Seconds PTT Ratio VBG pH (7.36-7.41) VBG pCO2 (38-50) mmHg VBG pO2 mmHg VBG HCO3 mmol/L VBG O2 Saturation % VBG Base Excess mEq/L Sodium 142 Potassium 4.5 Chloride 103 Carbon Dioxide 26 Anion Gap 13 H BUN 21 Creatinine 1.16 Est Cr Clr Drug Dosing 88.7 Est GFR ( Amer) 88.3 Est GFR (Non-Af Amer) 76.2 BUN/Creatinine Ratio 18.1 Glucose 151 H POC Glucose 113 H 126 H (70-99) mg/dl Estimat Average Glucose mg/dl Hemoglobin A1c (4.5-5.6) % Osmolality (280-300) mOsm/kg Lactate 3.3 H* (0.4-2.0) mmol/L Calcium 9.8 Magnesium Total Bilirubin Direct Bilirubin AST ALT Alkaline Phosphatase Total Protein Albumin Lipase Procalcitonin (0-0.5) ng/ml TSH (0.300-4.500) uIu/ml Ethyl Alcohol mg/dL (<10.0) mg/dl 05/19/24 05/19/24 05/19/24 Range/Units 04:51 03:46 02:50 WBC (4.8-10.8) K/ul RBC (4.70-6.10) M/uL Hgb (14.0-18.0) g/dl Hct (42.0-52.0) % MCV (80.0-100.0) fL MCH (25.0-34.0) pg MCHC (32.0-36.0) g/dL RDW Std Deviation (36.4-46.3) fL RDW Coeff of Trevon (11.5-14.5) % Plt Count (130-400) K/uL MPV (9.4-12.4) fL Immature Gran % (Auto) % Neut % (Auto) % Lymph % (Auto) % [place] % (Auto) % Eos % (Auto) % Baso % (Auto) % Neut # (Auto) (1.40-6.50) K/uL Lymph # (Auto) (1.20-3.40) K/uL [place] # (Auto) (0.11-0.59) K/uL Eos # (Auto) (0.00-0.50) K/uL Baso # (Auto) (0.00-0.20) K/uL Immature Gran # (Auto) (0.01-0.20) K/uL PT (9.0-12.0) Seconds INR (0.9-1.1) APTT (21-31) Seconds PTT Ratio VBG pH (7.36-7.41) VBG pCO2 (38-50) mmHg VBG pO2 mmHg VBG HCO3 mmol/L VBG O2 Saturation % VBG Base Excess mEq/L Sodium Potassium Chloride Carbon Dioxide Anion Gap BUN Creatinine Est Cr Clr Drug Dosing Est GFR ( Amer) Est GFR (Non-Af Amer) BUN/Creatinine Ratio Glucose POC Glucose 136 H 157 H 191 H (70-99) mg/dl Estimat Average Glucose mg/dl Hemoglobin A1c (4.5-5.6) % Osmolality (280-300) mOsm/kg Lactate (0.4-2.0) mmol/L Calcium Magnesium Total Bilirubin Direct Bilirubin AST ALT Alkaline Phosphatase Total Protein Albumin Lipase Procalcitonin (0-0.5) ng/ml TSH (0.300-4.500) uIu/ml Ethyl Alcohol mg/dL (<10.0) mg/dl 05/19/24 05/19/24 05/19/24 Range/Units 01:40 00:51 00:40 WBC 18.43 H (4.8-10.8) K/ul RBC 5.60 (4.70-6.10) M/uL Hgb 16.3 (14.0-18.0) g/dl Hct 46.4 (42.0-52.0) % MCV 82.9 (80.0-100.0) fL MCH 29.1 (25.0-34.0) pg MCHC 35.1 (32.0-36.0) g/dL RDW Std Deviation 37.5 (36.4-46.3) fL RDW Coeff of Trevon 12.5 (11.5-14.5) % Plt Count 169 (130-400) K/uL MPV 12.7 H (9.4-12.4) fL Immature Gran % (Auto) 0.6 % Neut % (Auto) 91.4 % Lymph % (Auto) 3.3 % [place] % (Auto) 4.4 % Eos % (Auto) 0.1 % Baso % (Auto) 0.2 % Neut # (Auto) 16.86 H (1.40-6.50) K/uL Lymph # (Auto) 0.61 L (1.20-3.40) K/uL [place] # (Auto) 0.81 H (0.11-0.59) K/uL Eos # (Auto) 0.01 (0.00-0.50) K/uL Baso # (Auto) 0.03 (0.00-0.20) K/uL Immature Gran # (Auto) 0.11 (0.01-0.20) K/uL PT (9.0-12.0) Seconds INR (0.9-1.1) APTT 21 (21-31) Seconds PTT Ratio 0.8 VBG pH 7.43 H (7.36-7.41) VBG pCO2 30 L (38-50) mmHg VBG pO2 86 mmHg VBG HCO3 20 mmol/L VBG O2 Saturation 98.6 % VBG Base Excess -3.3 mEq/L Sodium 141 Potassium 3.8 Chloride 101 Carbon Dioxide 20 L Anion Gap 20 H BUN 23 Creatinine 1.35 Est Cr Clr Drug Dosing 76.2 Est GFR ( Amer) 73.5 Est GFR (Non-Af Amer) 63.4 BUN/Creatinine Ratio 17.0 Glucose 268 H POC Glucose 211 H 257 H (70-99) mg/dl Estimat Average Glucose mg/dl Hemoglobin A1c (4.5-5.6) % Osmolality (280-300) mOsm/kg Lactate 2.4 H* (0.4-2.0) mmol/L Calcium 9.5 Magnesium Total Bilirubin Direct Bilirubin AST ALT Alkaline Phosphatase Total Protein Albumin Lipase Procalcitonin 0.04 (0-0.5) ng/ml TSH 1.254 (0.300-4.500) uIu/ml Ethyl Alcohol mg/dL (<10.0) mg/dl 05/18/24 05/18/24 05/18/24 Range/Units 23:43 22:28 21:33 WBC (4.8-10.8) K/ul RBC (4.70-6.10) M/uL Hgb (14.0-18.0) g/dl Hct (42.0-52.0) % MCV (80.0-100.0) fL MCH (25.0-34.0) pg MCHC (32.0-36.0) g/dL RDW Std Deviation (36.4-46.3) fL RDW Coeff of Trevon (11.5-14.5) % Plt Count (130-400) K/uL MPV (9.4-12.4) fL Immature Gran % (Auto) % Neut % (Auto) % Lymph % (Auto) % [place] % (Auto) % Eos % (Auto) % Baso % (Auto) % Neut # (Auto) (1.40-6.50) K/uL Lymph # (Auto) (1.20-3.40) K/uL [place] # (Auto) (0.11-0.59) K/uL Eos # (Auto) (0.00-0.50) K/uL Baso # (Auto) (0.00-0.20) K/uL Immature Gran # (Auto) (0.01-0.20) K/uL PT (9.0-12.0) Seconds INR (0.9-1.1) APTT (21-31) Seconds PTT Ratio VBG pH (7.36-7.41) VBG pCO2 (38-50) mmHg VBG pO2 mmHg VBG HCO3 mmol/L VBG O2 Saturation % VBG Base Excess mEq/L Sodium Potassium Chloride Carbon Dioxide Anion Gap BUN Creatinine Est Cr Clr Drug Dosing Est GFR ( Amer) Est GFR (Non-Af Amer) BUN/Creatinine Ratio Glucose POC Glucose 284 H 308 H* 289 H (70-99) mg/dl Estimat Average Glucose mg/dl Hemoglobin A1c (4.5-5.6) % Osmolality (280-300) mOsm/kg Lactate (0.4-2.0) mmol/L Calcium Magnesium Total Bilirubin Direct Bilirubin AST ALT Alkaline Phosphatase Total Protein Albumin Lipase Procalcitonin (0-0.5) ng/ml TSH (0.300-4.500) uIu/ml Ethyl Alcohol mg/dL (<10.0) mg/dl 05/18/24 05/18/24 05/18/24 Range/Units 20:47 20:45 19:13 WBC (4.8-10.8) K/ul RBC (4.70-6.10) M/uL Hgb (14.0-18.0) g/dl Hct (42.0-52.0) % MCV (80.0-100.0) fL MCH (25.0-34.0) pg MCHC (32.0-36.0) g/dL RDW Std Deviation (36.4-46.3) fL RDW Coeff of Trevon (11.5-14.5) % Plt Count (130-400) K/uL MPV (9.4-12.4) fL Immature Gran % (Auto) % Neut % (Auto) % Lymph % (Auto) % [place] % (Auto) % Eos % (Auto) % Baso % (Auto) % Neut # (Auto) (1.40-6.50) K/uL Lymph # (Auto) (1.20-3.40) K/uL [place] # (Auto) (0.11-0.59) K/uL Eos # (Auto) (0.00-0.50) K/uL Baso # (Auto) (0.00-0.20) K/uL Immature Gran # (Auto) (0.01-0.20) K/uL PT (9.0-12.0) Seconds INR (0.9-1.1) APTT (21-31) Seconds PTT Ratio VBG pH (7.36-7.41) VBG pCO2 (38-50) mmHg VBG pO2 mmHg VBG HCO3 mmol/L VBG O2 Saturation % VBG Base Excess mEq/L Sodium 142 Potassium 3.9 Chloride 98 Carbon Dioxide 16 L Anion Gap 28 H BUN 24 H Creatinine 1.51 H Est Cr Clr Drug Dosing 68.2 Est GFR ( Amer) 64.2 Est GFR (Non-Af Amer) 55.4 BUN/Creatinine Ratio 15.9 Glucose 334 H* POC Glucose 297 H 315 H* (70-99) mg/dl Estimat Average Glucose mg/dl Hemoglobin A1c (4.5-5.6) % Osmolality (280-300) mOsm/kg Lactate (0.4-2.0) mmol/L Calcium 10.0 Magnesium 2.0 Total Bilirubin 0.6 Direct Bilirubin 0.1 AST 13 ALT 16 Alkaline Phosphatase 79 Total Protein 7.8 Albumin 5.3 H Lipase 40 Procalcitonin (0-0.5) ng/ml TSH (0.300-4.500) uIu/ml Ethyl Alcohol mg/dL < 10.0 (<10.0) mg/dl 05/18/24 05/18/24 05/18/24 Range/Units 18:45 17:35 17:17 WBC 17.46 H (4.8-10.8) K/ul RBC 6.12 H (4.70-6.10) M/uL Hgb 17.9 (14.0-18.0) g/dl Hct 51.8 (42.0-52.0) % MCV 84.6 (80.0-100.0) fL MCH 29.2 (25.0-34.0) pg MCHC 34.6 (32.0-36.0) g/dL RDW Std Deviation 38.7 (36.4-46.3) fL RDW Coeff of Trevon 12.7 (11.5-14.5) % Plt Count 248 (130-400) K/uL MPV 12.4 (9.4-12.4) fL Immature Gran % (Auto) 0.7 % Neut % (Auto) 91.6 % Lymph % (Auto) 4.0 % [place] % (Auto) 3.4 % Eos % (Auto) 0.1 % Baso % (Auto) 0.2 % Neut # (Auto) 16.01 H (1.40-6.50) K/uL Lymph # (Auto) 0.69 L (1.20-3.40) K/uL [place] # (Auto) 0.59 (0.11-0.59) K/uL Eos # (Auto) 0.01 (0.00-0.50) K/uL Baso # (Auto) 0.04 (0.00-0.20) K/uL Immature Gran # (Auto) 0.12 (0.01-0.20) K/uL PT (9.0-12.0) Seconds INR (0.9-1.1) APTT (21-31) Seconds PTT Ratio VBG pH 7.36 (7.36-7.41) VBG pCO2 30 L (38-50) mmHg VBG pO2 53 mmHg VBG HCO3 17 mmol/L VBG O2 Saturation 87.7 % VBG Base Excess -7.3 mEq/L Sodium Cancelled Potassium Cancelled Chloride Cancelled Carbon Dioxide Cancelled Anion Gap Cancelled BUN Cancelled Creatinine Cancelled Est Cr Clr Drug Dosing Cancelled Est GFR ( Amer) Cancelled Est GFR (Non-Af Amer) Cancelled BUN/Creatinine Ratio Cancelled Glucose Cancelled POC Glucose 297 H 288 H (70-99) mg/dl Estimat Average Glucose 143 mg/dl Hemoglobin A1c 6.6 H (4.5-5.6) % Osmolality 324 H (280-300) mOsm/kg Lactate (0.4-2.0) mmol/L Calcium Cancelled Magnesium Cancelled Total Bilirubin Cancelled Direct Bilirubin Cancelled AST Cancelled ALT Cancelled Alkaline Phosphatase Cancelled Total Protein Cancelled Albumin Cancelled Lipase Cancelled Procalcitonin (0-0.5) ng/ml TSH (0.300-4.500) uIu/ml Ethyl Alcohol mg/dL (<10.0) mg/dl Diagnostic Findings Chest/Abdomen X-ray 05/18/24 19:09 XR abdomen 2V w PA chest HISTORY: 43 years-old Male vomitting acute nausea with vomiting COMPARISON: 03/24/2024 TECHNIQUE: PA view of the chest with erect and supine views of the abdomen FINDINGS: Heart size is normal. Pediatric sternotomy wires are present. Lungs are clear. No pneumothorax or pleural effusion. No acute fracture. Nonobstructed bowel gas pattern. No urolith identified. IMPRESSION: 1. No acute processes of the chest. 2. Nonobstructive bowel gas pattern. ACT 112: Negative or not required by law. The above report was generated using voice recognition software. It may contain grammatical, syntax or spelling errors. Electronically signed by: Stuart Keith M.D. 05/18/2024 7:41 PM Abdomen/Pelvis CT 05/18/24 22:45 Exam(s): CT ABDOMEN + PELVIS With Contrast IV Amt: 94 ml EXAM: CT Abdomen and Pelvis With Intravenous Contrast CLINICAL HISTORY: Reason for exam: abd pain. TECHNIQUE: Axial computed tomography images of the abdomen and pelvis with intravenous contrast. CTDI is 24.75 mGy and DLP is 1301.59 mGy-cm. Automated exposure control was utilized for the study. A dose lowering technique was utilized adhering to the principles of ALARA. CONTRAST: Patient received 94 ml of IV contrast COMPARISON: March 24, 2024 FINDINGS: Lung bases: Unremarkable. No mass. No consolidation. ABDOMEN: Liver: Mild fatty infiltration of the liver. No focal liver lesion is seen. Gallbladder and bile ducts: Unremarkable. No calcified stones. No ductal dilation. Pancreas: Unremarkable. No mass. No ductal dilation. Spleen: Unremarkable. No splenomegaly. Adrenals: Unremarkable. No mass. Kidneys and ureters: Unremarkable. No solid mass. No hydronephrosis. Stomach and bowel: Bowel loops are nondilated. The entire: Is contracted which gives the appearance of mild wall thickening. There is diverticulosis of the left and sigmoid colon without focal diverticulitis. PELVIS: Appendix: The appendix is normal. Bladder: Unremarkable. No mass. Reproductive: Unremarkable as visualized. ABDOMEN and PELVIS: Intraperitoneal space: Unremarkable. No free air. No significant fluid collection. Bones/joints: Mild degenerative changes throughout the spine. No acute fracture or subluxation is seen. Soft tissues: Unremarkable. Vasculature: Unremarkable. No abdominal aortic aneurysm. Lymph nodes: Unremarkable. No enlarged lymph nodes. IMPRESSION: Bowel loops are nondilated. The entire: Is contracted which gives the appearance of mild wall thickening. There is diverticulosis of the left and sigmoid colon without focal diverticulitis. Mild colitis is suspected. No pneumoperitoneum, free fluid, or abscess is seen. Electronically signed by: Nickolas Riddle MD 05/19/24 01:56 AM
--- NOTE | 2024-05-19 12:22 | Electrocardiogram Report ---
Test Reason : Blood Pressure : / mmHG Vent. Rate : 116 BPM Atrial Rate : 116 BPM P-R Int : 192 ms QRS Dur : 156 ms QT Int : 362 ms P-R-T Axes : 000 086 016 degrees QTc Int : 503 ms Possible Sinus tachycardia Indeterminate axis Right bundle branch block Septal infarct , age undetermined Possible Inferior infarct (cited on or before 18-NOV-2023) Abnormal ECG When compared with ECG of 24-MAR-2024 10:13, Septal infarct is now Present Confirmed by León Castelan ([id number]) on 05/19/2024 12:21:59 PM Referred By: REFERRED SELF Confirmed By:León Castelan
[2024-05-19] MEDS: PIPERACILLIN/TAZOBACTAM 4.5 GM in DEXTROSE 5% MINI-B 100 ML IV SCH (12:58)
[2024-05-19 14:57] LABS: ANTI-Xa, UFH(UnfractionatedHep 0.29 IU/ml (0.3-0.7)
[2024-05-19] MEDS: POLYETHYLENE (MIRALAX) 17 GM PACK PO SCH (15:26)
[2024-05-19] MEDS ORDERED: PHARMACY GLYCEMIC MGMT CONSULT PRN (17:41)
--- NOTE | 2024-05-19 17:41 | Hospitalist Progress Note ---
Date of Service May 19, 2024 Assessment & Plan (1) Hyperglycemic crisis in diabetes mellitus: Plan: Hyperglycemic crisis in diabetes mellitus Secondary to GI illness, ? Gastroparesis flareup ? Insulin compliance History DM 2 insulin requiring, well-controlled as of 6.1 recent hemoglobin A1c of last month Blood glucose much improved Anion gap resolved Lactic acidosis also resolved Continue insulin Will order unit educator consult Persistent nausea CT abd/pelvis: Bowel loops are nondilated. The entire: Is contracted which gives the appearance of mild wall thickening. There is diverticulosis of the left and sigmoid colon without focal diverticulitis. Mild colitis is suspected. No pneumoperitoneum, free fluid, or abscess is seen. Continue with Zosyn Will need an EGD Will discuss with GI service tomorrow chronic systolic heart failure secondary to nonischemic cardiomyopathy (EF 35 to 39%, TTE 2022), patient on the dry side hypertension, elevated secondary to illness, possible alcohol withdrawal ARF secondary to GI illness hyperlipidemia on statin Rx history unprovoked PE status post Xarelto past tobacco abuse [place] S at risk protocol, DT precautions DVT prophylaxis. Resume Xarelto if no bleeding on CT imaging Full code Admission and Anticipated Discharge Date Admission Date: May 18, 2024 Subjective ff up for nausea, Hyperglycemia, etc. Seen resting in bed, comfortable, not in distress Still having some nausea but seems to be improved compared to yesterday Frustrated regarding overall medical condition, patient feels he has been going downhill for the past few months Reports not being able to keep food down due to pain with eating, nausea, also reports some weight loss next Review of Systems Review of Systems: all noted and negative except for above Physical Exam Physical Exam: General- oriented x 3, not in distress, speaks in sentences with no effort or accessory muscle use Eyes- anicteric Neck- no JVD Lungs- clear breath sounds bilaterally, No crackles or wheezing Heart- normal rate, regular rhythm; no murmurs Abdomen- normal bowel sounds, nondistended, soft, nontender Extremities- no pretibial edema, no calf tenderness Neuro- alert, oriented x 3; no gross focal neurologic deficits Skin- warm & dry Results & Data Results & Data Vital Signs (Past 12 Hours) Vital Signs Temp Pulse Pulse Resp BP BP BP 05/19/24 15:50 77 05/19/24 15:19 36.9 C 80 18 122/80 05/19/24 14:06 82 22 05/19/24 14:00 14 112/70 05/19/24 13:03 72 19 115/85 05/19/24 12:00 80 16 131/78 05/19/24 11:06 86 18 05/19/24 11:00 36.9 C 91 H 18 110/68 05/19/24 10:00 86 20 111/79 05/19/24 09:50 84 05/19/24 09:23 91 H 18 138/94 05/19/24 08:00 90 16 139/104 H 05/19/24 07:00 106 H 18 153/83 H Pulse Ox O2 Del Method 05/19/24 15:50 05/19/24 15:19 98 Room Air 05/19/24 14:06 05/19/24 14:00 98 Room Air 05/19/24 13:03 05/19/24 12:00 98 Room Air 05/19/24 11:06 98 Room Air 05/19/24 11:00 98 Room Air 05/19/24 10:00 98 Room Air 05/19/24 09:50 05/19/24 09:23 98 Room Air 05/19/24 08:00 95 Room Air 05/19/24 07:00 98 Room Air all noted and reviewed including below
[2024-05-19] MEDS: ACETAMINOPHEN 325 MG TAB PO PRN (20:58)
[2024-05-19] MEDS ORDERED: LANTUS PER UNIT CHARGE SQ SCH ×2 (21:00)
[2024-05-19 21:43] LABS: ANTI-Xa, UFH(UnfractionatedHep 0.38 IU/ml (0.3-0.7)
[2024-05-20] MEDS: LANTUS PER UNIT CHARGE SC SCH (08:55)
[2024-05-20 09:06] LABS: ANTI-Xa, UFH(UnfractionatedHep 0.35 IU/ml (0.3-0.7)
[2024-05-20 09:45] LABS: Appearance Urine Turbid (Clear); Bacteria Urine Automated None Seen (None Seen); Bilirubin Urine Negative (Negative); Blood Urine 1+ (Negative); Cast Urine Automated 0-2 /lpf (0-2); Color Urine Yellow; Epithelial Cell Urine Auto 0-2 /hpf (0-2); Glucose Urine UA 3+ (Negative); Ketones Urine Trace (Negative); Leukocyte Esterase Urine Negative (Negative); Nitrite Urine Negative (Negative); Protein Urine Trace (Negative); RBC Urine Automated 0-2 /hpf (0-2); Specific Gravity Urine 1.022 (1.000-1.030); Urobilinogen Urine Negative (Negative); WBC Urine Automated 0-5 /hpf (0-5); pH Urine 5.5 (4.5-7.5)
[2024-05-20 09:54] LABS: Amphetamines+Metham, Urine Neg (Neg); Barbiturates, Urine Neg (Neg); Benzodiazepine, Urine Neg (Neg); Cocaine, Urine Neg (Neg); Fentanyl, Urine Neg (Neg); MDMA (Ecstacy), Urine Neg (Neg); Marijuana, Urine Pos (Neg); Methadone, Urine Neg (Neg); Opiate, Urine Neg (Neg); Phencyclidine, Urine Neg (Neg)
[2024-05-20 10:03] LABS: Uric Acid Crystals Urine Present (None Prsent)
[2024-05-20 10:54] LABS: Basophils # (auto) 0.03 K/uL (0.00-0.20); Basophils % (auto) 0.3 %; Eosinophils # (auto) 0.02 K/uL (0.00-0.50); Eosinophils % (auto) 0.2 %; Hematocrit (blood only) 41.2 % (42.0-52.0); Immature Granulocytes # (auto) 0.03 K/uL (0.01-0.20); Immature Granulocytes % (auto) 0.3 %; Lymphocytes # (auto) 1.21 K/uL (1.20-3.40); Lymphocytes % (auto) 13.7 %; Mean Corpuscular Hemoglobin 28.7 pg (25.0-34.0); Mean Corpuscular Volume 84.4 fL (80.0-100.0); Mean Platelet Volume 11.8 fL (9.4-12.4); Monocytes # (auto) 0.62 K/uL (0.11-0.59); Neutrophils # (auto) 6.95 K/uL (1.40-6.50); Neutrophils % (auto) 78.5 %; Platelet Count 153 K/uL (130-400); RDW Coefficient of Variation 12.3 % (11.5-14.5); RDW Standard Deviation 37.7 fL (36.4-46.3); Red Blood Count 4.88 M/uL (4.70-6.10); White Blood Count 8.86 K/ul (4.8-10.8)
[2024-05-20 11:15] LABS: BUN Creatinine Ratio 13.9 (10-20); Calcium 8.3 mg/dl (8.6-10.3); Creatinine Clr Calc Pharmacy 96.2 ml/min; Est GFR (African American) 96.2 ml/min; Potassium 3.2 mmol/L (3.5-5.1)
--- NOTE | 2024-05-20 11:59 | Gastroenterology Progress Note ---
<Statement entered by Rhonda Hills MD - 05/20/24 18:04> I have examined the patient, reviewed the History & Physical and in the interval since the performance of the History & Physical I have noted the following changes of clinical significance: no changes noted. I agree with the documentation provided by BELKIS Azevedo with no additional comments. Date of Service May 20, 2024 Assessment & Plan (1) Nausea & vomiting: Plan: -Keep NPO after midnight; can attempt EGD on 05/21/24 after heparin drip has been held for 6 hours. -Continue Protonix 40 mg daily -Continue IV antiemetics -Will need outpatient follow-up for his gastroparesis with his usual [facility] GI team (he has an EGD & colonoscopy scheduled with them in May per his reports) Admission and Anticipated Discharge Date Admission Date: May 18, 2024 Subjective Patient is a 43 yo male with chronic GI symptoms and gastroparesis. He is a difficult patient with poor cooperation with questioning. He is a patient of [facility] GI in the past. He notes he is scheduled for scopes in May 2025. He is currently on an IV heparin drip for PE. He notes ongoing nausea. He denies vomiting today. He saw Dr. Chicas yesterday who advised Miralax. He takes Pantoprazole 40 mg daily at home as well as Promethazine 6.25 mg daily. Hospitalist team is requesting an EGD. Review of Systems Gastrointestinal: + abdominal pain and + nausea Physical Exam Constitutional: well developed Gastrointestinal (Abdomen): normal bowel sounds, soft, nontender, no hepato splenomegaly Psychiatric: Orientation: alert and oriented x 3 Results & Data Results & Data Vital Signs (Past 12 Hours) Vital Signs Temp Pulse Pulse Resp BP Pulse Ox O2 Del Method 05/20/24 08:07 57 L 05/20/24 07:49 36.3 C L 73 16 132/87 97 Room Air 05/20/24 03:14 36.4 C L 70 20 129/86 95 Room Air PG Care Time/CCT Total # of Minutes Spent Total Time Spent with Patient: Total time spent is greater than 50% in coordination of care (as documented) at patient's floor/unit and/or counseling patient: Coding Level of Care Code 55881 SUB INP/OBS CARE 3/50MIN Diagnoses Nausea & vomiting R11.2
--- NOTE | 2024-05-20 14:04 | Pharmacy Report ---
Pharmacy Glycemic Short Note 2 - Date of Service May 20, 2024 - Glycemic Short BSG Results (Last 24 hours): 05/19/24 05/19/24 05/20/24 16:58 20:13 08:07 Glucose POC Glucose 74 150 H 180 H 05/20/24 05/20/24 10:30 11:54 Glucose 179 H POC Glucose 156 H OUTPATIENT ANTIDIABETIC REGIMEN: * glipizide 10mg QD * Lantus 20 units QAM * HbA1c 6.6 % (05/18/24) ASSESSMENT: * Man is a 43 YOM admitted with N&V and a history of T2DM. Pharmacy has been consulted to assist with glycemic management while inpatient. * Found to be in a hypoglycemic crisis and insulin drip was started. Subsequently labs normalized and he was transitioned to SQ insulin by hospitalist team. * BSGs trended down below goal range yesterday, and pharmacy was consulted. BSGs lower likely due to too much basal insulin. Will add basal scale with hold parameters. * Diet ordered starting with lunch today, but NPO overnight for EGD tomorrow. * Novolog initiated at a weight based stress of 1.5, appears to be controlling BSGs PLAN FOR INPATIENT GLYCEMIC CONTROL: * Hold outpatient oral diabetes medications * Basal insulin * Lantus 0-10 units SQ BID (hold if BSG less than 140mg/dL) * Bolus insulin * NovoLog per scale ACHS or Q6hrs while NPO * Goal Range: Low 110 mg/dL - High 140 mg/dL * Correction Factor: 35 mg/dL/unit * Nutritional / Prandial insulin per carb ratio of 1 unit per 15 grams CHO consumed
--- NOTE | 2024-05-20 19:44 | Hospitalist Progress Note ---
Date of Service May 20, 2024 delayed entry date of service noted above Assessment & Plan (1) Hyperglycemic crisis in diabetes mellitus: Plan: Hyperglycemic crisis in diabetes mellitus Secondary to nausea/vomiting, abdominal pain ? Insulin compliance History DM 2 insulin requiring, well-controlled as of 6.1 recent hemoglobin A1c of last month Blood glucose much improved a1c 6.6 Anion gap resolved Lactic acidosis also resolved Continue insulin film writer consult Persistent nausea CT abd/pelvis: Bowel loops are nondilated. The entire: Is contracted which gives the appearance of mild wall thickening. There is diverticulosis of the left and sigmoid colon without focal diverticulitis. Mild colitis is suspected. No pneumoperitoneum, free fluid, or abscess is seen. Continue with Zosyn for EGD chronic systolic heart failure secondary to nonischemic cardiomyopathy (EF 35 to 39%, TTE 2022) -- euvolemic hypertension -- stable ARF secondary to GI illness -- resolved hyperlipidemia on statin Rx history unprovoked PE status post Xarelto -- currently on heparin past tobacco abuse [place] S at risk protocol, DT precautions -- no signs of alcohol withdrawal DVT prophylaxis. on heparin drip Full code Disposition d/c home when medically stable Admission and Anticipated Discharge Date Admission Date: May 18, 2024 Subjective Follow-up for abdominal pain, nausea, vomiting, etc. Seen sitting up in bed, comfortable, not in distress Still having intermittent nausea, postprandial pain no fevers or chills No other new symptoms Review of Systems Review of Systems: all noted and negative except for above Physical Exam Physical Exam: General- oriented x 3, not in distress, speaks in sentences with no effort or accessory muscle use Eyes- anicteric Neck- no JVD Lungs- clear breath sounds bilaterally, no crackles/wheezing Heart- normal rate, regular rhythm; no murmurs Abdomen- normal bowel sounds, nondistended, soft, nontender Extremities- no pretibial edema, no calf tenderness Neuro- alert, oriented x 3; no gross focal neurologic deficits Skin- warm & dry Results & Data Results & Data Vital Signs (Past 12 Hours) Vital Signs Temp Pulse Pulse Resp BP Pulse Ox Pulse Ox 05/20/24 17:00 95 05/20/24 16:28 36.6 C 70 16 153/90 H 97 05/20/24 16:06 73 05/20/24 12:23 36.4 C L 66 16 134/75 93 05/20/24 08:07 57 L 05/20/24 07:49 36.3 C L 73 16 132/87 97 O2 Del Method O2 Del Method 05/20/24 17:00 Room Air 05/20/24 16:28 Room Air 05/20/24 16:06 05/20/24 12:23 Room Air 05/20/24 08:07 05/20/24 07:49 Room Air all noted and reviewed including below
[2024-05-20] MEDS: oxyCODONE HCL IR 5 MG TAB (IMMEDIATE RELEASE) PO PRN (20:28)
[2024-05-20] MEDS: POTASSIUM CHLORIDE CRTAB 20 MEQ TABCR PO STA (20:28)
[2024-05-21] MEDS: [UNRECOGNIZED DRUG - REMARK] ONE (02:11)
--- NOTE | 2024-05-21 06:11 | History & Physical Bridge Note ---
<Statement entered by Rhonda Hills MD - 05/21/24 09:48> Agree. In addition, heparin drip has been held in anticipation of EGD. Date of Service May 21, 2024 History & Physical Bridge Note I have reviewed the History & Physical and in the interval since the performance of the History & Physical I have noted the following changes of clinical significance: no changes noted. Keep NPO fo EGD today with Dr. Hills.
[2024-05-21 07:22] LABS: Basophils # (auto) 0.04 K/uL (0.00-0.20); Basophils % (auto) 0.8 %; Eosinophils # (auto) 0.11 K/uL (0.00-0.50); Eosinophils % (auto) 2.3 %; Hemoglobin 14.3 g/dl (14.0-18.0); Immature Granulocytes # (auto) 0.01 K/uL (0.01-0.20); Immature Granulocytes % (auto) 0.2 %; Lymphocytes # (auto) 1.37 K/uL (1.20-3.40); Lymphocytes % (auto) 28.8 %; Mean Corpuscular Hemoglobin 28.5 pg (25.0-34.0); Mean Corpuscular Volume 83.8 fL (80.0-100.0); Monocytes # (auto) 0.38 K/uL (0.11-0.59); Neutrophils # (auto) 2.85 K/uL (1.40-6.50); Neutrophils % (auto) 59.9 %; Platelet Count 156 K/uL (130-400); RDW Standard Deviation 36.4 fL (36.4-46.3); Red Blood Count 5.01 M/uL (4.70-6.10); White Blood Count 4.76 K/ul (4.8-10.8)
[2024-05-21 07:38] LABS: BUN Creatinine Ratio 12.9 (10-20); Calcium 8.5 mg/dl (8.6-10.3); Creatinine Clr Calc Pharmacy 104.3 ml/min; Est GFR (African American) 104.4 ml/min; Potassium 3.4 mmol/L (3.5-5.1)
[2024-05-21 07:47] LABS: ANTI-Xa, UFH(UnfractionatedHep < 0.10 IU/ml (0.3-0.7); Partial Thromboplastin Ratio 0.9; Partial Thromboplastin Time 24 Seconds (21-31)
[2024-05-21] MEDS: ADVANCED PROBIOTIC 625 MG CAPSULE PO SCH (09:05)
--- NOTE | 2024-05-21 09:16 | Anesthesiology Consultation ---
Date of Service May 21, 2024 Assessment & Plan Chart Review Chart Review: Acceptable Risk for Surgery and Patient NOT seen in Pre Admission Testing Consults Requested none ASA ASA3 Proposed Anesthesia Anesthesia Type: MAC Risk / Benefits Reviewed With: PT / POA / Parent / Guardian, Accepts Plan and Informed Consent Obtained History Surgery Operation Date: 05/21/24 16:30 Proposed Procedures p Esophagogastroduodenoscopy [place] - Rhonda Hills MD Height/Weight Height: 5 ft 7 in Weight: 98.3 kg Allergies Allergy/AdvReac Type Severity Reaction Status Date / Time Sulfa (Sulfonamide Allergy Intermediate ITCHY/HOT Verified 03/24/24 09:17 Antibiotics) metformin AdvReac Intermediate Diarrhea Verified 03/24/24 09:17 morphine AdvReac Intermediate Nausea Verified 03/24/24 09:17 semaglutide [From Ozempic] AdvReac Intermediate Hallucinati Verified 03/24/24 09:17 ng Medications Home Medications Medication Instructions Recorded Confirmed Last Taken atorvastatin 40 mg tablet 40 mg PO QAM 06/23/21 05/18/24 05/17/24 pantoprazole 40 mg tablet,delayed 40 mg PO DAILYBB 11/19/23 05/18/24 05/17/24 release ezetimibe 10 mg tablet 10 mg PO QAM 02/09/24 05/18/24 05/17/24 fenofibrate nanocrystallized 145 145 mg PO QAM 02/09/24 05/18/24 05/17/24 mg tablet furosemide 20 mg tablet 20 mg PO QAM 02/09/24 05/18/24 05/17/24 gabapentin 300 mg capsule 300 mg PO TID 02/09/24 05/18/24 05/17/24 glipizide 10 mg tablet, extended 10 mg PO DAILYBB 02/09/24 05/18/24 05/17/24 release 24 hr insulin glargine 100 unit/mL (3 20 unit subcut QA 02/09/24 05/18/24 05/17/24 mL) subcutaneous pen metoprolol succinate 50 mg 75 mg PO QAM 02/09/24 05/18/24 05/17/24 tablet,extended release 24 hr sacubitril 24 mg-valsartan 26 mg 1 tab PO BID 02/09/24 05/18/24 05/17/24 tablet (Entresto) spironolactone 25 mg tablet 25 mg PO QAM 02/09/24 05/18/24 05/17/24 rivaroxaban 20 mg tablet (Xarelto) 20 mg PO DAILYBD 03/24/24 05/18/24 05/17/24 promethazine 6.25 mg/5 mL oral 6.25 mg (5 mL) PO AC #240 mL 04/01/24 05/18/24 05/17/24 syrup Active Medications Generic Name Dose Route Start Last Admin Trade Name Freq PRN Reason Stop Dose Admin Acetaminophen 650 mg 05/18/24 22:54 05/20/24 13:02 Acetaminophen 325 Mg Tab PO 06/17/24 22:53 650 mg QID PRN Administration pain/fever Atorvastatin Calcium 40 mg 05/19/24 09:00 05/20/24 07:48 Atorvastatin 40 Mg Tab PO 06/18/24 08:59 40 mg QAM IVAN Administration Ezetimibe 10 mg 05/19/24 09:00 05/20/24 07:48 Ezetimibe 10 Mg Tab PO 06/18/24 08:59 10 mg QAM IVAN Administration Fenofibrate 145 mg 05/19/24 09:00 05/20/24 07:48 Fenofibrate Nanocrystallized 145 Mg Tablet PO 06/18/24 08:59 145 mg QAM IVAN Administration Folic Acid 1 mg 05/19/24 09:00 05/20/24 07:48 Folic Acid 1 Mg Tab PO 06/18/24 08:59 1 mg QAM IVAN Administration Gabapentin 300 mg 05/19/24 09:00 05/20/24 20:29 Gabapentin 300 Mg Cap PO 06/18/24 08:59 300 mg TID IVAN Administration Lorazepam 1 mg/ Syringe 1 mls @ 2 mls/min 05/18/24 22:51 05/18/24 23:46 IV 06/17/24 22:50 2 mls/min UD PRN Administration EtOH Withdrawal AWSS Score 6,7 Protocol Piperacillin Sod/Tazobactam 100 mls @ 25 mls/hr 05/19/24 12:00 05/21/24 08:29 Sod 4.5 gm/ Dextrose IV 05/29/24 11:59 Infused Q8H IVAN Infusion Protocol Insulin Aspart 0 units 05/19/24 08:00 05/21/24 08:30 Insulin Aspart Per Unit Charge SC 06/18/24 07:59 Not Given ACHS IVAN Insulin Glargine 0 units 05/20/24 09:00 05/21/24 08:30 Lantus Per Unit Charge SC 06/19/24 08:59 Not Given BID IVAN Protocol Metoprolol Succinate 75 mg 05/19/24 09:00 05/20/24 07:48 Metoprolol Succ 25mg Ext Rel Tab PO 06/18/24 08:59 75 mg QAM IVAN Administration Multivitamins 1 tab 05/19/24 09:00 05/20/24 07:48 Multivitamin Tab PO 06/18/24 08:59 1 tab QAM IVAN Administration Oxycodone HCl 5 mg 05/18/24 22:54 05/20/24 20:28 Oxycodone Hcl Ir 5 Mg Tab (Immediate Release) PO 06/01/24 22:53 5 mg Q4H PRN Administration Pain Pantoprazole Sodium 40 mg 05/19/24 06:30 05/21/24 08:28 Pantoprazole 40 Mg Tab PO 06/18/24 06:29 Not Given DAILYBB IVAN Polyethylene Glycol 17 gm 05/19/24 15:30 05/20/24 07:49 Polyethylene (Miralax) 17 Gm Pack PO 06/18/24 15:29 17 gm DAILY IVAN Administration Thiamine HCl 100 mg 05/19/24 09:00 05/21/24 08:29 Thiamine Hcl 100 Mg Tab PO 06/18/24 08:59 Not Given QAM IVAN NPO Date Last Intake of Fluids: 05/20/24 Time Last Intake of Fluids: 21:00 Date Last Intake of Solids: 05/20/24 Time Last Intake of Solids: 17:00 Past Medical History Medical History Chronic wound HFrEF (heart failure with reduced ejection fraction) Pulmonary emboli (04/2022) Gastroparesis Hyperglycemic crisis in diabetes mellitus DKA (diabetic ketoacidosis) History of kidney stones Open trimalleolar fracture (2020) Dislocation of ankle, right, open (2020) Exercise / Class Metabolic Activity II 4-5 Yardwork/Stairs/Walk up hill Past Family History Family History Father Cardiac disorder Mother No problems noted. Aunt Cardiac disorder Other No family history of adverse response to anesthesia Denies family history of Ovarian cancer Prostate cancer Myocardial infarction Breast cancer Colorectal cancer Past Surgical History Surgical History History of ankle surgery (2020) right ankle external fixator/I&D History of colonoscopy History of esophagogastroduodenoscopy (EGD) History of tooth extraction History of wisdom tooth extraction S/P knee surgery remove fluid off right knee History of heart surgery (1983) VSD- age 3---no issues since surgery, no health and safety coordinator Past Anesthesia History No Hx of Anesthesia Complications and No Family Hx of Anesthesia Complications History of PONV No Hx of PONV and No Hx of Motion Sickness Social History Smoking Status: Former smoker Do You Dip or Chew Tobacco: No Hx Alcohol Use: Yes Alcohol type: wine alcohol intake frequency: a few times a month Hx Substance Use: Yes substance use type: marijuana Last Used Substance: Days (ago) Physical Exam Vital Signs Last Vital Signs Temp 36.5 C 05/21/24 09:08 Pulse 58 L 05/21/24 09:08 Resp 16 05/21/24 09:08 BP 156/94 H 05/21/24 09:08 Pulse Ox 96 05/21/24 09:08 O2 Del Method Room Air 05/21/24 09:08 ENMT Mouth: no dentition abnormality Thyromental Distance: > or= 3.5 Finger Breadths Mallampati Class: II Neck normal visual inspection Respiratory normal respiratory effort Auscultation: lungs clear to auscultation bilaterally Cardiovascular Rate/Rhythm: regular rate and regular rhythm Psychiatric Orientation: alert Testing Laboratory Results 05/21/24 06:44 05/21/24 06:44 PT 11.4 Seconds (9.0-12.0) 05/19/24 08:01 INR 1.1 (0.9-1.1) 05/19/24 08:01 APTT 24 Seconds (21-31) 05/21/24 06:44 Hemoglobin A1c 6.6 % (4.5-5.6) H 05/18/24 18:45 Urine Color Yellow 05/20/24 08:00 Urine Appearance Turbid (Clear) A 05/20/24 08:00 Urine pH 5.5 (4.5-7.5) 05/20/24 08:00 Ur Specific [place] 1.022 (1.000-1.030) 05/20/24 08:00 Urine Protein Trace (Negative) H 05/20/24 08:00 Urine Glucose (UA) 3+ (Negative) H 05/20/24 08:00 Urine Ketones Trace (Negative) H 05/20/24 08:00 Urine Nitrite Negative (Negative) 05/20/24 08:00 Ur Leukocyte Esterase Negative (Negative) 05/20/24 08:00 Urine WBC (Auto) 0-5 /hpf (0-5) 05/20/24 08:00 Urine RBC (Auto) 0-2 /hpf (0-2) 05/20/24 08:00 U Hyaline Cast (Auto) 0-2 /lpf (0-2) 05/20/24 08:00 U Epithel Cells (Auto) 0-2 /hpf (0-2) 05/20/24 08:00 Urine Bacteria (Auto) None Seen (None Seen) 05/20/24 08:00 05/18/24 22:56 Aerobic Blood Culture - Preliminary Blood No growth in Aerobic bottle after 48 hours. Anaerobic Blood Culture - Preliminary No growth in Anaerobic bottle after 48 hours. 05/18/24 22:56 Aerobic Blood Culture - Preliminary Blood No growth in Aerobic bottle after 48 hours. Anaerobic Blood Culture - Preliminary No growth in Anaerobic bottle after 48 hours. 05/21/24 08:02 POC Glucose 145 H
[2024-05-21] MEDS: SODIUM CHLORIDE 0.9% 500 ML IV SCH (09:22)
--- NOTE | 2024-05-21 10:26 | GI REPORT ---
[facility] Patient: DAVID BEAN : 1980 Sex at : Male Age: 43 Years Procedure: Upper GI endoscopy Date: 05/21/2024 Attending Physician: Rhonda Hills MD Referring MD: Deon Pacheco; Shelly Caruso Md Indications: - Suspected reflux esophagitis - Epigastric abdominal pain Medications: - Monitored Anesthesia Care Complications: - No immediate complications. Estimated Blood Loss: - Estimated blood loss was minimal. Procedure: - Prior to the procedure, a History and Physical was performed, and patient medications and allergies were reviewed. The patient's tolerance of previous anesthesia was also reviewed. The risks and benefits of the procedure and the sedation options and risks were discussed with the patient. All questions were answered, and informed consent was obtained. Prior Anticoagulants: The patient has taken heparin, last dose was day of procedure. ASA Grade Assessment: III - A patient with severe systemic disease. After reviewing the risks and benefits, the patient was deemed in satisfactory condition to undergo the procedure. - The egd scope was introduced through the mouth and advanced to the second part of the duodenum. - The upper GI endoscopy was accomplished without difficulty. - The patient tolerated the procedure well. Findings: - LA Grade D (one or more mucosal breaks involving at least 75% of esophageal circumference) esophagitis with no bleeding was found in the lower third of the esophagus. Biopsies were taken with a cold forceps for histology. - Patchy mild inflammation characterized by erythema was found in the gastric antrum. Biopsies were taken with a cold forceps for histology. - The examined duodenum was normal. - A small hiatal hernia was present. Impression: - LA Grade D reflux esophagitis with no bleeding. Rule out Kaufman's esophagus. Biopsied. - Gastritis, characterized by erythema. Biopsied. - Normal examined duodenum. - Small hiatal hernia. Recommendation: - Resume previous diet. - Continue present medications. - Await pathology results. - Resume heparin at prior dose today. Refer to managing physician for further adjustment of therapy. Procedure Code(s): - 35143, Esophagogastroduodenoscopy, flexible, transoral; with biopsy, single or multiple Diagnosis Code(s): - R10.13, Epigastric pain - K21.00, Gastro-esophageal reflux disease with esophagitis, without bleeding - K29.70, Gastritis, unspecified, without bleeding CPT(R) - 2023 copyright [employer]. All Rights Reserved. The CPT codes, CCI edits and ICD codes generated are intended as suggestions and were generated based on input data. These codes are preliminary and upon picker box operator review may be revised to meet current compliance and payer requirements. The provider is responsible for the final determination of appropriate codes, and modifiers. Rhonda Hills MD This document has been electronically signed. Note Initiated:05/21/2024 Note Completed:05/21/2024 10:26 AM \\[id number]
[2024-05-21] MEDS: PROPOFOL IV EMULSION 10 MG/ML 20 ML VIAL IV ONE (11:48)
[2024-05-21] MEDS: LIDOCAINE 2% 2 ML VIAL/AMP(20MG/ML) INFIL ONE (11:48)
--- NOTE | 2024-05-21 13:17 | Anesthesiology Progress Note ---
Date of Service May 21, 2024 Anesthesia Post Procedure Vital Signs Vital Signs: Temp Pulse Pulse Resp BP Pulse Ox Pulse Ox 05/21/24 11:30 36.6 C 47 L 20 146/89 H 98 05/21/24 11:30 36.6 C 71 18 132/66 95 05/21/24 10:50 57 L 20 132/89 96 05/21/24 10:35 58 L 18 105/59 L 96 05/21/24 10:20 78 16 101/57 L 94 05/21/24 09:08 36.5 C 58 L 16 156/94 H 96 05/21/24 08:00 51 L 05/21/24 07:37 36.8 C 62 16 136/86 98 05/21/24 03:21 36.5 C 68 18 121/75 94 05/20/24 23:16 36.9 C 78 20 148/88 H 96 05/20/24 20:06 36.9 C 73 20 135/90 97 05/20/24 17:00 95 05/20/24 16:28 36.6 C 70 16 153/90 H 97 05/20/24 16:06 73 O2 Del Method O2 Del Method 05/21/24 11:30 Room Air 05/21/24 11:30 Room Air 05/21/24 10:50 Room Air 05/21/24 10:35 Room Air 05/21/24 10:20 Room Air 05/21/24 09:08 Room Air 05/21/24 08:00 05/21/24 07:37 Room Air 05/21/24 03:21 Room Air 05/20/24 23:16 Room Air 05/20/24 20:06 Room Air 05/20/24 17:00 Room Air 05/20/24 16:28 Room Air 05/20/24 16:06 Pain Intensity Abdomen: Pain Intensity: 4 Transfer of Care Handoff Completed per policy Notes Mental Status: alert / awake / arousable Patient Amnestic to Procedure: Yes Nausea / Vomiting: adequately controlled Pain: adequately controlled Airway Patency, RR, SpO2: stable & adequate BP & HR: stable & adequate Hydration State: stable & adequate Anesthetic Complications: no major complications apparent
[2024-05-21] MEDS: SUCRALFATE 1 GM/10 ML UDC PO SCH (13:56)
--- NOTE | 2024-05-21 20:25 | Hospitalist Progress Note ---
Date of Service May 21, 2024 Assessment & Plan (1) Hyperglycemic crisis in diabetes mellitus: Plan: Hyperglycemic crisis in diabetes mellitus Secondary to nausea/vomiting, abdominal pain ? Insulin compliance History DM 2 insulin requiring, well-controlled as of 6.1 recent hemoglobin A1c of last month Blood glucose much improved a1c 6.6 Anion gap resolved Lactic acidosis also resolved Continue insulin primary special educator consult Persistent nausea, abdominal pain Esophagitis, Gastritis CT abd/pelvis: Bowel loops are nondilated. The entire: Is contracted which gives the appearance of mild wall thickening. There is diverticulosis of the left and sigmoid colon without focal diverticulitis. Mild colitis is suspected. No pneumoperitoneum, free fluid, or abscess is seen. given Zosyn, discontinued no diarrhea 05/21 Status post EGD Impression: - LA Grade D reflux esophagitis with no bleeding. Rule out Kaufman's esophagus. Biopsied. - Gastritis, characterized by erythema. Biopsied. - Normal examined duodenum. - Small hiatal hernia. Recommendation: - Resume previous diet. - Continue present medications. - Await pathology results. - Resume heparin at prior dose today. Refer to managing physician for further adjustment of therapy. Follow-up biopsy results Protonix 40 mg twice daily x 2 weeks, then daily sucralfate 4 times daily x 2 weeks Advised to avoid cannabis products Monitor closely chronic systolic heart failure secondary to nonischemic cardiomyopathy (EF 35 to 39%, TTE 2022) -- euvolemic hypertension -- stable ARF secondary to GI illness -- resolved hyperlipidemia on statin Rx history unprovoked PE status post Xarelto -- currently on heparin in light of EGD Transition to Xarelto tomorrow past tobacco abuse [place] S at risk protocol, DT precautions -- no signs of alcohol withdrawal DVT prophylaxis. on heparin drip Full code Disposition d/c home when medically stable plan of care discussed with patient in detail and at length all questions answered he is understanding, agreeable, comfortable with the plan of care Admission and Anticipated Discharge Date Admission Date: May 18, 2024 Subjective Follow-up for abdominal pain, nausea vomiting, etc. Status post EGD States he feels okay overall Tolerating some fluids Abdominal pain, nausea vomiting seems to be improving gradually No other new symptoms Review of Systems Review of Systems: all noted and negative except for above Physical Exam Physical Exam: General- oriented x 3, not in distress, speaks in sentences with no effort or accessory muscle use Eyes- anicteric Neck- no JVD Lungs- clear breath sounds bilaterally, no rales/wheezes Heart- normal rate, regular rhythm; no murmurs Abdomen- normal bowel sounds, nondistended, soft, nontender Extremities- no pretibial edema, no calf tenderness Neuro- alert, oriented x 3; no gross focal neurologic deficits Skin- warm & dry Results & Data Results & Data Vital Signs (Past 12 Hours) Vital Signs Temp Pulse Pulse Resp BP Pulse Ox Pulse Ox 05/21/24 19:37 37.1 C 68 20 132/88 95 05/21/24 17:00 96 05/21/24 16:00 67 05/21/24 15:50 36.8 C 66 18 124/77 95 05/21/24 11:30 36.6 C 47 L 20 146/89 H 98 05/21/24 11:30 36.6 C 71 18 132/66 95 05/21/24 10:50 57 L 20 132/89 96 05/21/24 10:35 58 L 18 105/59 L 96 05/21/24 10:20 78 16 101/57 L 94 05/21/24 09:08 36.5 C 58 L 16 156/94 H 96 O2 Del Method O2 Del Method 05/21/24 19:37 Room Air 05/21/24 17:00 Room Air 05/21/24 16:00 05/21/24 15:50 Room Air 05/21/24 11:30 Room Air 05/21/24 11:30 Room Air 05/21/24 10:50 Room Air 05/21/24 10:35 Room Air 05/21/24 10:20 Room Air 05/21/24 09:08 Room Air all noted and reviewed including below
[2024-05-21] MEDS: PANTOprazole 40 MG TAB PO SCH (22:15)
[2024-05-21] MEDS: MELATONIN 3 MG TAB PO PRN (22:50)
[2024-05-21 22:57] LABS: Marijuana Quant, GCMS Urine 2442 ng/mL (<5)
[2024-05-22 02:48] LABS: Basophils # (auto) 0.03 K/uL (0.00-0.20); Basophils % (auto) 0.5 %; Eosinophils # (auto) 0.31 K/uL (0.00-0.50); Eosinophils % (auto) 4.9 %; Hematocrit (blood only) 40.4 % (42.0-52.0); Hemoglobin 13.8 g/dl (14.0-18.0); Immature Granulocytes # (auto) 0.01 K/uL (0.01-0.20); Immature Granulocytes % (auto) 0.2 %; Lymphocytes # (auto) 2.13 K/uL (1.20-3.40); Lymphocytes % (auto) 33.3 %; Mean Corpuscular Hemoglobin 28.6 pg (25.0-34.0); Mean Corpuscular Hgb Conc 34.2 g/dL (32.0-36.0); Mean Corpuscular Volume 83.6 fL (80.0-100.0); Mean Platelet Volume 11.7 fL (9.4-12.4); Monocytes # (auto) 0.47 K/uL (0.11-0.59); Monocytes % (auto) 7.4 %; Neutrophils # (auto) 3.44 K/uL (1.40-6.50); Neutrophils % (auto) 53.7 %; Platelet Count 156 K/uL (130-400); RDW Coefficient of Variation 11.9 % (11.5-14.5); RDW Standard Deviation 35.9 fL (36.4-46.3); Red Blood Count 4.83 M/uL (4.70-6.10); White Blood Count 6.39 K/ul (4.8-10.8)
[2024-05-22 02:49] LABS: BUN Creatinine Ratio 11.8 (10-20); Calcium 9.2 mg/dl (8.6-10.3); Creatinine Clr Calc Pharmacy 103.2 ml/min; Est GFR (African American) 103.1 ml/min; Potassium 3.3 mmol/L (3.5-5.1)
--- NOTE | 2024-05-22 07:36 | Pharmacy Report ---
Pharmacy Glycemic Short Note 2 - Date of Service May 22, 2024 - Glycemic Short BSG Results (Last 24 hours): 05/21/24 05/21/24 05/21/24 06:44 08:02 11:58 Glucose 149 H POC Glucose 145 H 126 H 05/21/24 05/21/24 05/22/24 17:11 21:04 01:40 Glucose 195 H POC Glucose 178 H 206 H OUTPATIENT ANTIDIABETIC REGIMEN: * glipizide 10mg QD * Lantus 20 units QAM * HbA1c 6.6 % (05/18/24) ASSESSMENT: 05/22 * Patient received 12 units of insulin yesterday, 10 units basal, blood sugars rising throughout the day d/t refusal of AM Lantus and refusal of NovoLog coverage at lunch and dinner. * Transition back to once daily Lantus in the AM today for preparation for discharge on once daily Lantus in AM, reduce from home dose. Patient agreeable to take this this morning. * Continue NovoLog parameters at this time, as we do not quite know his requirements since many doses were refused yesterday. 05/20 * Man is a 43 YOM admitted with N&V and a history of T2DM. Pharmacy has been consulted to assist with glycemic management while inpatient. * Found to be in a hyperglycemic crisis and insulin drip was started. Subsequently labs normalized and he was transitioned to SQ insulin by hospitalist team. * BSGs trended down below goal range yesterday, and pharmacy was consulted. BSGs lower likely due to too much basal insulin. Will add basal scale with hold parameters. * Diet ordered starting with lunch today, but NPO overnight for EGD tomorrow. * Novolog initiated at a weight based stress of 1.5, appears to be controlling BSGs PLAN FOR INPATIENT GLYCEMIC CONTROL: * Hold outpatient oral diabetes medications * Basal insulin * Lantus 15 units SQ daily * Bolus insulin * NovoLog per scale ACHS or Q6hrs while NPO * Goal Range: Low 110 mg/dL - High 140 mg/dL * Correction Factor: 35 mg/dL/unit * Nutritional / Prandial insulin per carb ratio of 1 unit per 15 grams CHO consumed
[2024-05-22] MEDS: LANTUS PER UNIT CHARGE SC SCH (08:57)
--- NOTE | 2024-05-22 10:11 | Hospitalist Progress Note ---
Date of Service May 22, 2024 Assessment & Plan (1) Hyperglycemic crisis in diabetes mellitus: Plan: Hyperglycemic crisis in diabetes mellitus Secondary to nausea/vomiting, abdominal pain ? Insulin compliance History DM 2 insulin requiring, well-controlled as of 6.1 recent hemoglobin A1c of last month Blood glucose much improved a1c 6.6 Anion gap resolved Lactic acidosis also resolved Continue insulin [employer] infrastructure consultant consulted; recommended to discontinue glipizide at discharge. Persistent nausea, abdominal pain Esophagitis, Gastritis CT abd/pelvis: Bowel loops are nondilated. The entire: Is contracted which gives the appearance of mild wall thickening. There is diverticulosis of the left and sigmoid colon without focal diverticulitis. Mild colitis is suspected. No pneumoperitoneum, free fluid, or abscess is seen. given Zosyn, discontinued no diarrhea 05/21 Status post EGD Impression: - LA Grade D reflux esophagitis with no bleeding. Rule out Kaufman's esophagus. Biopsied. - Gastritis, characterized by erythema. Biopsied. - Normal examined duodenum. - Small hiatal hernia. Recommendation: - Resume previous diet. - Continue present medications. - Await pathology results. - Resume heparin at prior dose today. Refer to managing physician for further adjustment of therapy. Follow-up biopsy results Protonix 40 mg twice daily x 2 weeks, then daily sucralfate 4 times daily x 2 weeks Advised to avoid cannabis products Monitor closely chronic systolic heart failure secondary to nonischemic cardiomyopathy (EF 35 to 39%, TTE 2022) -- euvolemic hypertension -- stable ARF secondary to GI illness -- resolved hyperlipidemia on statin Rx history unprovoked PE status post Xarelto -- currently on heparin in light of EGD Transition to Xarelto tomorrow past tobacco abuse [place] S at risk protocol, DT precautions -- no signs of alcohol withdrawal DVT prophylaxis. on heparin drip Full code Disposition d/c home when medically stable Please note the above document was generated using voice recognition software. It may contain grammatical, syntax or spelling errors. Any formal questions or concerns about the content, text or information contained within the body of this dictation should be directly addressed to the provider for clarification Admission and Anticipated Discharge Date Admission Date: May 18, 2024 Subjective Patient seen and examined at bedside. Comfortable; not in distress. Denies fever, chills, chest pain, shortness of breath, abdominal pain or urinary symptoms. No significant overnight events Review of Systems Review of Systems: All systems reviewed & are unremarkable except as noted in Subjective Physical Exam Physical Exam: General- oriented x 3, not in distress, speaks in sentences with no effort or accessory muscle use Eyes- anicteric Neck- no JVD Lungs- clear breath sounds bilaterally, no rales/wheezes Heart- normal rate, regular rhythm; no murmurs Abdomen- normal bowel sounds, nondistended, soft, nontender Extremities- no pretibial edema, no calf tenderness Neuro- alert, oriented x 3; no gross focal neurologic deficits Skin- warm & dry Results & Data Results & Data Vital Signs (Past 12 Hours) Vital Signs Temp Pulse Pulse Resp BP Pulse Ox Pulse Ox 05/22/24 08:25 36.6 C 59 L 16 136/92 97 05/22/24 07:28 51 L 05/22/24 04:02 36.6 C 60 20 102/65 94 05/22/24 01:10 96 05/21/24 23:34 36.7 C 66 20 124/82 95 O2 Del Method O2 Del Method 05/22/24 08:25 Room Air 05/22/24 07:28 05/22/24 04:02 Room Air 05/22/24 01:10 Room Air 05/21/24 23:34 Room Air
[2024-05-22] MEDS: RIVAROXABAN 20 MG TAB PO SCH (12:17)
--- NOTE | 2024-05-22 13:07 | Gastroenterology Progress Note ---
<Statement entered by Rhonda Hills MD - 05/22/24 17:25> I have examined the patient, reviewed the History & Physical and in the interval since the performance of the History & Physical I have noted the following changes of clinical significance: no changes noted. I agree with the documentation provided by BELKIS Azevedo with no additional comments. Date of Service May 22, 2024 Assessment & Plan (1) Esophagitis: Plan: -Continue Protonix 40 mg BID -Anti emetics prn to reduce episodes of n/v -Await biopsies -Patient will need follow-up with [facility] as an outpatient. Admission and Anticipated Discharge Date Admission Date: May 18, 2024 Subjective Patient is a 43 yo male who underwent an EGD on 05/21/24 that indicated esophagitis. Path is pending. No new complaints. Patient does demonstrate signs of depression without SI/HI. Review of Systems Gastrointestinal: + nausea; no abdominal pain and no blood in stools Physical Exam Constitutional: well developed Respiratory: normal respiratory effort Gastrointestinal (Abdomen): normal bowel sounds, soft, nontender, no he patosplenomegaly Results & Data Results & Data Vital Signs (Past 12 Hours) Vital Signs Temp Pulse Pulse Resp BP BP Pulse Ox 05/22/24 13:01 36.6 C 59 L 16 136/92 122/70 97 05/22/24 08:25 36.6 C 59 L 16 136/92 97 05/22/24 07:28 51 L 05/22/24 04:02 36.6 C 60 20 102/65 94 05/22/24 01:10 Pulse Ox O2 Del Method O2 Del Method 05/22/24 13:01 05/22/24 08:25 Room Air 05/22/24 07:28 05/22/24 04:02 Room Air 05/22/24 01:10 96 Room Air PG Care Time/CCT Total # of Minutes Spent Total Time Spent with Patient: Total time spent is greater than 50% in coordination of care (as documented) at patient's floor/unit and/or counseling patient: Coding Level of Care Code 02333 SUB INP/OBS CARE 2/35MIN Diagnoses Esophagitis K20.90
--- NOTE | 2024-05-22 15:11 | Discharge Summary ---
Date of Service May 22, 2024 Admission HPI Per Admitting Provider History obtained from patient and records. Medical history significant for chronic systolic heart failure secondary to nonischemic cardiomyopathy (EF 35 to 39%, TTE 2022), history congenital heart surgery, hypertension, hyperlipidemia, history unprovoked PE status post Xarelto, DM2 insulin requiring, GERD, gastroparesis as per records, chronic LLE wound, alcohol abuse as per records, past tobacco abuse, medical noncompliance as per records. Recent confinement last month for gastroparesis flareup. Patient not feeling well since last week. Achy abdominal pain with nausea emesis. Denies diarrhea. No chest pain, no SOB, headache. Blood sugars 200s as per patient. Claims to be compliant with regimen. Patient went on a family trip to [place] few days ago but had to return due to worsening symptoms. BSG 300s upon arrival at the ER. IV insulin initiated at the ER. Medical History as above Surgical History : VSD surgery, ankle surgery, dental surgery, knee surgery Family History : DM Personal/Social history : Past tobacco abuse, alcohol abuse as per records which patient denies, currently unemployed Admission Exam Per Admitting Provider GENERAL: Slightly uncomfortable, obese, no respiratory distress SKIN: Normal color, warm HEENT: [place] palpebral conjunctivae, no ptosis, dry buccal mucosa NECK : Supple, no tenderness CHEST : CTA, no tenderness HEART : Tachycardic, no obvious murmurs ABDOMEN: Some distention, minimal epigastric tenderness EXTREMITIES : Minimal LLE swelling without tenderness, no other conspicuous deformities noted NEUROLOGIC : Coherent, no facial asymmetry, no other gross focality Principal Diagnosis Esophagitis Discharge Exam General- oriented x 3, not in distress, speaks in sentences with no effort or accessory muscle use Eyes- anicteric Neck- no JVD Lungs- clear breath sounds bilaterally, no rales/wheezes Heart- normal rate, regular rhythm; no murmurs Abdomen- normal bowel sounds, nondistended, soft, nontender Extremities- no pretibial edema, no calf tenderness Neuro- alert, oriented x 3; no gross focal neurologic deficits Skin- warm & dry Discharge Data Allergies Allergy/AdvReac Type Severity Reaction Status Date / Time Sulfa (Sulfonamide Allergy Intermediate ITCHY/HOT Verified 03/24/24 09:17 Antibiotics) metformin AdvReac Intermediate Diarrhea Verified 03/24/24 09:17 morphine AdvReac Intermediate Nausea Verified 03/24/24 09:17 semaglutide [From Ozempic] AdvReac Intermediate Hallucinati Verified 03/24/24 09:17 ng Consultations 05/18/24 20:40 ED Decision to Admit Stat 05/19/24 07:22 Consult Gastroenterology Routine Procedures Performed Operation Date: 05/21/24 16:30 Actual Procedures p EGD Biopsy Cytology - Rhonda Hills MD Ordered Studies 05/18/24 22:45 CT Abd and Pelvis [CT abd pelvis IV con only] Stat Hospital Course (1) Hyperglycemic crisis in diabetes mellitus: Hyperglycemic crisis in diabetes mellitus Secondary to nausea/vomiting, abdominal pain ? Insulin compliance History DM 2 insulin requiring, well-controlled as of 6.1 recent hemoglobin A1c of last month Blood glucose much improved a1c 6.6 Anion gap resolved Lactic acidosis also resolved Continue insulin health educator consulted; recommended to discontinue glipizide at discharge. Persistent nausea, abdominal pain Esophagitis, Gastritis CT abd/pelvis: Bowel loops are nondilated. The entire: Is contracted which gives the appearance of mild wall thickening. There is diverticulosis of the left and sigmoid colon without focal diverticulitis. Mild colitis is suspected. No pneumoperitoneum, free fluid, or abscess is seen. given Zosyn, discontinued no diarrhea 05/21 Status post EGD Impression: - LA Grade D reflux esophagitis with no bleeding. Rule out Kaufman's esophagus. Biopsied. - Gastritis, characterized by erythema. Biopsied. - Normal examined duodenum. - Small hiatal hernia. Recommendation: - Resume previous diet. - Continue present medications. - Await pathology results. - Resume heparin at prior dose today. Refer to managing physician for further adjustment of therapy. Follow-up biopsy results Protonix 40 mg twice daily x 2 weeks, then daily sucralfate 4 times daily x 2 weeks Advised to avoid cannabis products Monitor closely Patient discharged home with instruction to follow-up with his PCP and GI physician. Please note the above document was generated using voice recognition software. It may contain grammatical, syntax or spelling errors. Any formal questions or concerns about the content, text or information contained within the body of this dictation should be directly addressed to the provider for clarification Total Time Total Time Spent Total Time Spent (In Minutes): 45 Total Time Includes: Examination of the Patient, Discharge Planning, Medication Reconciliation, Communication With Other Providers and Other Discharge Plan Discharge Items Patient Disposition: Home - Self-Care Reason For Visit: HYPERGLYCEMIC CRISIS, HTN URG Discharge Diagnosis: Hyperglycemic crisis in diabetes mellitus Activity: Resume your previous activity Non-emergency contact: Primary Care Provider Call non-emergency contact if: you have any medication questions and your symptoms worsen Follow-up/Referrals: Dany Caruso MD [Primary Care Provider] - Diet: Carb Consistent or DM2 Addtl Attending Provider Instructions: You were admitted to the hospital due to elevated blood glucose level. Your evaluated by development educator and pharmacist. They recommend that you stop hayde ing glipizide. Please continue to take insulin glargine; do not miss any dose. In the future, you might need to be started on short acting insulin with meals as well depending on your blood glucose level. You were evaluated by GI for nausea. You underwent endoscopy on May 21, 2024. You are found to have esophagitis. You are prescribed following medication: 1) Take Protonix 40 mg twice a day for 14 days; then go back to once a day as previously 2) Take Carafate 4 times daily for 2 weeks An appointment with your primary care doctor will be made for you for sometime next week. Pending Studies at Discharge: No Stand-Alone Forms: My [facility] [employer], Smoking Cessation Medications and DC Order Prescriptions: New sucralfate 100 mg/mL Suspension 1 g PO QID 14 Days Qty: 560 0RF pantoprazole 40 mg Tablet,Delayed Release (Dr/Ec) 40 mg PO BID 14 Days Qty: 28 0RF Continued atorvastatin 40 mg tablet 40 mg PO QAM metoprolol succinate 50 mg tablet extended release 24 hr 75 mg PO QAM spironolactone 25 mg tablet 25 mg PO QAM gabapentin 300 mg capsule 300 mg PO TID furosemide 20 mg tablet 20 mg PO QAM Rx Instructions: Take 20mg by mouth once in the morning, may take an extra 20mg if weight gain is 3lbs in 1 day or 5lbs in 1 week ezetimibe 10 mg tablet 10 mg PO QAM fenofibrate nanocrystallized 145 mg tablet 145 mg PO QAM insulin glargine 100 unit/mL (3 mL) insulin pen 20 unit SUBCUT QAM Entresto 24-26 mg tablet 1 tab PO BID Xarelto 20 mg tablet 20 mg PO DAILYBD promethazine 6.25 mg/5 mL Syrup 6.25 mg PO AC Qty: 240 0RF Discontinued pantoprazole 40 mg Tablet,Delayed Release (Dr/Ec) 40 mg PO DAILYBB Rx Instructions: TAKE 1 TAB BY MOUTH IN SHANNON MORNING. 30 MINUTES BEFORE THE FIRST MEAL OF TE DAY. DNO CRUSH, SPLIT OR CHEW THE TAB glipizide 10 mg tablet extended release 24hr 10 mg PO DAILYBB Discharge Orders: Discharge Order (Routine); Ordered 05/22/24 Ordered By: Les Tam/Other Patient Handouts: Anatomy of the Digestive System, Blood Sugar Check Steps, Insulin for Type 2 Diabetes Admission Data Admit Date/Time: 05/18/24 22:50 Attending Provider: Les Gomes Admit Provider: Stu Roldan Primary Care Provider: Dany Caruso Other Providers: Stu Roldan; Sukhwinder Negron Other Interventions: Discharge Summary Assessment (RN) Last Done: 05/22/24 13:01
== END 2024-05-22 13:49 | disposition home or self-care (01) | DRG 638 ==
LOC: ED 17:06 → SUATTDRO 22:50 → EDINP 22:50 → 2N 05-19 00:25

== ENCOUNTER 2024-06-19 17:49 | Inpatient (IN) ==
--- NOTE | 2024-06-19 17:57 | ED Triage Note ---
Date of Service June 19, 2024 Provider in Triage Author: Flora Gomez History of Present Illness This patient was briefly evaluated while in triage. An abbreviated physical exam was performed. This patient is a 44-year-old Male who presents to the ED for evaluation of recent admission 06/12-06/15 for DKA, GI illness/gastroparesis, new onset aflutter "I think I'm in CHF" having midsternal chest pain x 2-3 days, SOB, VIGIL Per old records: Medical history significant for chronic systolic heart failure secondary to nonischemic cardiomyopathy (EF 35 to 39%, TTE 2022), history congenital heart surgery, hypertension, hyperlipidemia, history unprovoked PE status post Xarelto, DM2 insulin requiring, GERD, gastroparesis as per records, chronic LLE wound, alcohol abuse as per records, past tobacco abuse, medical noncompliance as per records. Physical Exam GENERAL: NAD CARDIOVASCULAR: RRR RESPIRATORY: CTA ABDOMEN: BS x 4. Nontender to palpation. Initial orders for labs and / or imaging were placed and patient was placed in the waiting area until a bed is available. Please see further documentation for the full ED course.
[2024-06-19] MEDS: ONDANSETRON INJ 2 MG/ML 2 ML VIAL ONE (18:59)
[2024-06-19] MEDS: SODIUM CHLORIDE 0.9% 500 ML IV ONE ×2 (18:59→19:54)
[2024-06-19 19:04] LABS: Basophils # (auto) 0.06 K/uL (0.00-0.20); Basophils % (auto) 0.6 %; Eosinophils # (auto) 0.15 K/uL (0.00-0.50); Eosinophils % (auto) 1.5 %; Hematocrit (blood only) 58.9 % (42.0-52.0); Hemoglobin 20.2 g/dl (14.0-18.0); Immature Granulocytes # (auto) 0.04 K/uL (0.01-0.20); Immature Granulocytes % (auto) 0.4 %; Lymphocytes # (auto) 3.04 K/uL (1.20-3.40); Lymphocytes % (auto) 29.4 %; Mean Corpuscular Hemoglobin 28.6 pg (25.0-34.0); Mean Corpuscular Hgb Conc 34.3 g/dL (32.0-36.0); Mean Corpuscular Volume 83.3 fL (80.0-100.0); Mean Platelet Volume 12.7 fL (9.4-12.4); Monocytes # (auto) 0.75 K/uL (0.11-0.59); Monocytes % (auto) 7.3 %; Neutrophils # (auto) 6.29 K/uL (1.40-6.50); Neutrophils % (auto) 60.8 %; Platelet Count 215 K/uL (130-400); RDW Coefficient of Variation 12.6 % (11.5-14.5); RDW Standard Deviation 36.2 fL (36.4-46.3); Red Blood Count 7.07 M/uL (4.70-6.10); White Blood Count 10.33 K/ul (4.8-10.8)
[2024-06-19 19:08] LABS: Troponin I High Sensitivity 5.3 pg/ml (0-20)
--- NOTE | 2024-06-19 19:18 | Emergency Department Note ---
Impression & Plan Syncope, BONILLA (acute kidney injury), Weakness, Acute dehydration, Tachycardia, Diaphoresis ED Provider Note NAME: DAVID BEAN AGE: 44 SEX: M : 1980 ARRIVES VIA: Walk-In INFORMANT: [Patient] ED PROVIDER(S): [Les Menezes MD] CHIEF COMPLAINT: TIA symptoms HISTORY OF PRESENT ILLNESS: The patient is a 44-year-old male who presents to the ER with weakness, not feeling well, continued chest pain and some nausea vomiting. Patient states that he was discharged 4 days ago and really has not felt well since. Things worsened today. In triage, he began feeling dizzy and lightheaded and sweaty. He had a syncopal event in triage and was brought back to room C11. The patient complains of chest pain but this is chronic. He does not feel short of breath. He has not recorded a fever. There has been no cough or congestion. No urinary complaints, no diarrhea. PMHx/PSHx/Social Hx: See Below PHYSICAL EXAM: GENERAL: Patient is in mild distress, seems pale and sweaty. HEENT: No acute trauma, normocephalic atraumatic, mucous membranes moist, no nasal congestion. NECK: No stridor, no adenopathy, no meningismus, trachea is midline. LUNGS: Clear to auscultation bilaterally, no wheeze, no rhonchi, breath sounds equal. HEART: Tachycardic, regular rhythm, no obvious murmur. ABDOMEN: Soft, nontender, no peritonitis. EXTREMITIES: No cyanosis, full range of motion of all the joints without pain or difficulty. NEUROLOGIC: Oriented x 3, no acute motor or sensory deficits, no focal weakness. SKIN: No jaundice, significant diaphoresis. Pale. DIFFERENTIAL DIAGNOSIS: Dehydration, electrolyte imbalance, PA, dysrhythmia, anemia, renal failure, among others. EMERGENCY DEPARTMENT PROCEDURES: MEDICAL DECISION MAKING: I initially went to see the patient in the triage waiting area. He was quite diaphoretic. He stood to walk to registration/triage 3 and began to crumpled to the ground. I was able to catch him and prevent him from suffering any injury, he did not strike his head. He briefly lost consciousness but he had a palpable pulse the entire time. He was able to answer questions. With the help of nursing staff, he was lifted and placed on a stretcher and brought back to room C11. There was no leukocytosis. Hemoglobin was quite high consistent with dehydration. There was a normal platelet count. No coagulopathy. Potassium is low at 2.9. Creatinine was elevated at 1.61, consistent with dehydration. There was no concerning liver enzyme elevation. BNP was not elevated making fluid overload unlikely. ECG showed a sinus tachycardia with a right bundle branch block. No ST elevation. Cardiac enzyme testing x 1 was not consistent with acute cardiac injury. There was no evidence for pancreatitis by our testing. Chest film did not show CHF or pneumonia. On exam, the patient was quite diaphoretic and quite pale. The patient was aggressively managed given the above brief syncopal spell. He was given a liter of IV saline for hydration. He received IV Zofran for nausea. The patient had return of his color while here in the ED. The diaphoresis ceased. His blood pressure improved. His heart rate improved. He was feeling better all around. The patient is in need of a hospital stay. I believe he is quite dehydrated. This led to his brief syncopal spell, his weakness and I think is the cause for his laboratory abnormalities. I did speak with the patient at length, I spoke with case management. The on- call hospitalist was consulted. Prior/Outside records/notes reviewed: Discharge summary note from 06/15/2024 describing his presentation, care and plan outpatient. ECG per my interpretation: Indication was weakness and chest pain. The ECG shows a sinus tachycardia with a rate of 116. There is a right bundle branch block. There is a potential old inferior infarct. There is no acute ST elevation. No PVCs. The QTc is 455. Compared to an ECG from 13 June 2024, the rate has increased. Continuous Cardiac Monitoring per my interpretation: An order was placed for continuous cardiac monitoring. The monitor shows a rate of 99 with normal sinus rhythm. Imaging/x-ray results per my interpretation: Chest x-ray does not show mediastinal widening, CHF or pneumonia. Chronic Medical/Social conditions affecting care: Recent discharge from this hospital. Care/Management discussed with: Case management, the on-call hospitalist. Level of care consideration(s): After review of the information above and other included data: --I believe the patient requires escalation of care to admission Critical Care Note: I have personally spent 51 minutes of critical care time in the direct management of this patient. This includes bedside care, interpretation of diagnostic studies, and testing, discussion with consultants, patient, and family members, and other required patient management activities. This 51 minutes is in excess of all separately billable procedures. DISPOSITION: Admission Past Med/Surg History Problem List (Updated 06/20/24 @ 00:29 by Les Menezes MD) Diaphoresis (Acute) Tachycardia (Acute) Acute dehydration (Acute) Weakness (Acute) BONILLA (acute kidney injury) (Acute) Syncope (Acute) Syncope and collapse Dehydration (Acute) High anion gap metabolic acidosis (Acute) DKA (diabetic ketoacidosis) (Acute) Alcohol withdrawal Esophagitis DKA (diabetic ketoacidosis) (Acute) Malnutrition Nausea & vomiting Constipation Weight loss Lactic acid acidosis Metabolic acidosis Intractable nausea and vomiting (Acute) BONILLA (acute kidney injury) (Acute) Deep vein thrombosis, lower left extremity Non-ischemic cardiomyopathy New onset of congestive heart failure (04/2022) Overweight (BMI 25.0-29.9) Alcohol abuse Pleural effusion, bilateral (Acute) Dyspnea (Acute) Right bundle branch block Vitamin D deficiency 8.9 in 06/2019 HLD (hyperlipidemia) TG 2049, TC 301 in 06/2019 T2DM (type 2 diabetes mellitus) HTN (hypertension) GERD (gastroesophageal reflux disease) Medical History Chronic wound HFrEF (heart failure with reduced ejection fraction) Pulmonary emboli (04/2022) Gastroparesis Hyperglycemic crisis in diabetes mellitus DKA (diabetic ketoacidosis) History of kidney stones Open trimalleolar fracture (2020) Dislocation of ankle, right, open (2020) Surgical History History of ankle surgery (2020) right ankle external fixator/I&D History of colonoscopy History of esophagogastroduodenoscopy (EGD) History of tooth extraction History of wisdom tooth extraction S/P knee surgery remove fluid off right knee History of heart surgery (1983) VSD- age 3---no issues since surgery, 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 Aunt Cardiac disorder Other No family history of adverse response to anesthesia Denies family history of Ovarian cancer Prostate cancer Myocardial infarction Breast cancer Colorectal cancer Social History Smoking Status: Former smoker Age Started Using Tobacco: 16; Age Quit Using Tobacco: 26; packs per day: 0.5; Second Hand Exposure: No; Do You Dip or Chew Tobacco: No; Hx Alcohol Use: Yes Alcohol type: wine Hx Substance Use: Yes Last Used Substance: Days (ago) Preferred Language: [place]i Communication Ability: Effective Visual Impairment: No Limitations Hearing Ability: Normal Outreach Associate Required: No Beliefs That Will Affect Care: None marital status: Single Current Living Situation: Significant Other current occupational status: employed current occupation: [employer] How many Children do You have: 0 Feels Safe at Home: Yes Dental Care, Regularly: Yes Physical Activity Frequency: 3-4 Times per Week Assistive Devices: Walker Allergies Allergies Allergy/AdvReac Type Severity Reaction Status Date / Time Sulfa (Sulfonamide Allergy Intermediate ITCHY/HOT Verified 06/19/24 20:13 Antibiotics) metformin AdvReac Intermediate Diarrhea Verified 06/19/24 20:13 morphine AdvReac Intermediate Nausea Verified 06/19/24 20:13 semaglutide [From Ozempic] AdvReac Intermediate Hallucinati Verified 06/19/24 20:13 ng Home Meds Home Medications Medication Instructions Recorded Confirmed atorvastatin 40 mg tablet 40 mg PO M 06/23/21 06/19/24 ezetimibe 10 mg tablet 10 mg PO [facility] 02/09/24 06/19/24 fenofibrate nanocrystallized 145 145 mg PO [facility] 02/09/24 06/19/24 mg tablet furosemide 20 mg tablet 20 mg PO [facility] 02/09/24 06/19/24 gabapentin 300 mg capsule 300 mg PO TID 02/09/24 06/19/24 insulin glargine 100 unit/mL (3 20 unit subcut [facility] 02/09/24 06/19/24 mL) subcutaneous pen metoprolol succinate 50 mg 75 mg PO [facility] 02/09/24 06/19/24 tablet,extended release 24 hr sacubitril 24 mg-valsartan 26 mg 1 tab PO [facility] 02/09/24 06/19/24 tablet (Entresto) spironolactone 25 mg tablet 25 mg PO [facility] 02/09/24 06/19/24 rivaroxaban 20 mg tablet (Xarelto) 20 mg PO DAILYBD 03/24/24 06/19/24 aprepitant 40 mg capsule 40 mg PO QAM 06/12/24 06/19/24 cholecalciferol (vitamin D3) 1,250 1,250 mcg PO WK 06/12/24 06/19/24 mcg (50,000 unit) capsule empagliflozin 10 mg tablet 10 mg PO QAM 06/12/24 06/19/24 (Jardiance) magnesium oxide 400 mg PO DAILY 06/12/24 06/19/24 metoclopramide HCl 5 mg tablet 5 mg PO TID 06/12/24 06/19/24 pantoprazole 40 mg tablet,delayed 40 mg PO [facility] 06/12/24 06/19/24 release triamcinolone acetonide 0.1 % 1 applic topical BID PRN Itching 06/12/24 06/19/24 topical cream Previous Rx's Medication Instructions Recorded promethazine 6.25 mg/5 mL oral 6.25 mg (5 mL) PO AC #240 mL 04/01/24 syrup Results & Data (ED) Vital Signs Vital Signs - 24 hr 06/19/24 18:00 06/19/24 19:51 06/19/24 20:09 Temperature 36.3 C L Temperature Source Oral Pulse Rate 62 86 81 Pulse Rate from SpO2 Sensor 82 Respiratory Rate 18 Respiratory Effort / Characteristics Non-Labored Spontaneous Respiratory Depth Normal Blood Pressure 100/75 Blood Pressure Mean 83 Blood Pressure Position Sitting Pulse Oximetry 95 91 Oxygen Delivery Method Room Air Room Air Sepsis Recent Fever Within 48 Hours No Sepsis New/Unexplained Change in Mental Status No Sepsis Action Taken by Nursing No Action Required 06/19/24 20:24 06/19/24 20:31 06/19/24 20:33 Temperature Temperature Source Pulse Rate 78 85 Pulse Rate from SpO2 Sensor 78 84 Respiratory Rate 13 15 Respiratory Effort / Characteristics Respiratory Depth Blood Pressure 109/71 Blood Pressure Mean 78 Blood Pressure Position Pulse Oximetry 94 98 Oxygen Delivery Method Room Air Room Air Sepsis Recent Fever Within 48 Hours Sepsis New/Unexplained Change in Mental Status Sepsis Action Taken by Nursing 06/19/24 20:50 Temperature Temperature Source Pulse Rate 86 Pulse Rate from SpO2 Sensor Respiratory Rate Respiratory Effort / Characteristics Respiratory Depth Blood Pressure Blood Pressure Mean Blood Pressure Position Pulse Oximetry Oxygen Delivery Method Sepsis Recent Fever Within 48 Hours Sepsis New/Unexplained Change in Mental Status Sepsis Action Taken by [facility] Medications Current Medication List: was personally reviewed by me Laboratory Data Attestation: I reviewed the patient's lab results. 06/19/24 18:20 06/19/24 19:24 Lab Results 06/19/24 06/19/24 06/19/24 Range/Units 18:20 18:57 19:24 WBC 10.33 (4.8-10.8) K/ul RBC 7.07 H (4.70-6.10) M/uL Hgb 20.2 H (14.0-18.0) g/dl Hct 58.9 H (42.0-52.0) % MCV 83.3 (80.0-100.0) fL MCH 28.6 (25.0-34.0) pg MCHC 34.3 (32.0-36.0) g/dL RDW Std Deviation 36.2 L (36.4-46.3) fL RDW Coeff of Trevon 12.6 (11.5-14.5) % Plt Count 215 (130-400) K/uL MPV 12.7 H (9.4-12.4) fL Immature Gran % (Auto) 0.4 % Neut % (Auto) 60.8 % Lymph % (Auto) 29.4 % [place] % (Auto) 7.3 % Eos % (Auto) 1.5 % Baso % (Auto) 0.6 % Neut # (Auto) 6.29 (1.40-6.50) K/uL Lymph # (Auto) 3.04 (1.20-3.40) K/uL [place] # (Auto) 0.75 H (0.11-0.59) K/uL Eos # (Auto) 0.15 (0.00-0.50) K/uL Baso # (Auto) 0.06 (0.00-0.20) K/uL Immature Gran # (Auto) 0.04 (0.01-0.20) K/uL PT Cancelled 11.3 INR Cancelled 1.0 APTT Cancelled 22 PTT Ratio Cancelled 0.8 Sodium TNP 137 Potassium TNP 2.9 L Chloride 94 L (98-107) mmol/L Carbon Dioxide 20 L (21-32) mmol/L Anion Gap TNP BUN 16 (6-23) mg/dl Creatinine 1.61 H (0.6-1.4) mg/dl Est Cr Clr Drug Dosing 60.4 ml/min Est GFR ( Amer) 59.0 ml/min Est GFR (Non-Af Amer) 50.9 ml/min BUN/Creatinine Ratio 9.9 L (10-20) Glucose 191 H (70-99(Fasting)) mg/dl POC Glucose 178 H (70-99) mg/dl Calcium 10.0 (8.6-10.3) mg/dl Magnesium 1.8 (1.7-2.4) mg/dl Total Bilirubin 0.8 (0.2-1.0) mg/dl AST TNP 18 ALT 18 (7-52) U/L Alkaline Phosphatase 93 (34-104) U/L Troponin I High Sens 5.3 (0-20) pg/ml B-Natriuretic Peptide 7 (0-100) pg/ml Total Protein 8.3 (6.0-8.3) gm/dl Albumin 5.2 H (3.4-5.0) gm/dl Globulin 3.1 (2.5-4.0) gm/dl Albumin/Globulin Ratio 1.7 (0.9-2) Lipase 35 (11-82) U/L Administered Medications Gabapentin (Gabapentin 300 Mg Cap) 300 mg PO TID [facility] Stop: 07/19/24 22:02 Last Admin: 06/19/24 22:47 Dose: 300 mg Documented By: BJ Potassium Chloride/Sodium Chloride (Normal Saline W/20 Meq Kcl) 20 meq in 1,000 mls @ 80 mls/hr IV .[id number] [facility] Stop: 06/20/24 23:14 Last Admin: 06/19/24 22:47 Dose: 80 mls/hr Documented By: BJ Insulin Aspart (Insulin Aspart Per Unit Charge) 0 units SC Q6H IV[facility] Stop: 07/20/24 00:00 Last Admin: 06/19/24 23:49 Dose: 1 units Documented By: SILVANO Co-signed By: KISHORE Metoclopramide HCl (Metoclopramide Hcl 5 Mg Tablet) 5 mg PO TID [facility] Stop: 07/19/24 22:02 Last Admin: 06/19/24 22:47 Dose: 5 mg Documented By: BJ Pantoprazole Sodium (Pantoprazole 40 Mg Tab) 40 mg PO [facility] IVAN Stop: 07/19/24 22:02 Last Admin: 06/19/24 22:46 Dose: 40 mg Documented By: BJ Discontinued Medications Sodium Chloride (Nss) 500 mls @ 999 mls/hr IV .Q31M ONE Stop: 06/19/24 19:18 Last Infusion: 06/19/24 19:53 Dose: Infused Documented By: Admin: 06/19/24 18:59 Dose: 999 mls/hr Documented By: MALLIKA Sodium Chloride (Nss) 500 mls @ 999 mls/hr IV .Q31M ONE Stop: 06/19/24 19:36 Last Infusion: 06/19/24 20:31 Dose: Infused Documented By: Admin: 06/19/24 19:54 Dose: 999 mls/hr Documented By: BJ Magnesium Sulfate/Dextrose (Magnesium Sulfate / D5w) 1 gm in 100 mls @ 50 mls/hr IV ONE ONE Stop: 06/19/24 21:58 Last Infusion: 06/19/24 22:38 Dose: Infused Documented By: Admin: 06/19/24 20:30 Dose: 50 mls/hr Documented By: BJ Ondansetron HCl (Ondansetron Inj 2 Mg/Ml 2 Ml Vial) Confirm Administered Dose 4 mg .ROUTE .STK-MED ONE Stop: 06/19/24 18:44 Last Admin: 06/19/24 18:59 Dose: 4 mg Documented By: MALLIKA Potassium Chloride (Potassium Chloride Crtab 20 Meq Tabcr) 40 meq PO NOW STA Stop: 06/19/24 19:59 Last Admin: 06/19/24 20:30 Dose: 40 meq Documented By: BJ Imaging Data Radiologist's Impression: Chest X-Ray 06/19/24 18:01 SINGLE VIEW CHEST CLINICAL HISTORY: Atypical chest pain. Dyspnea FINDINGS: An AP upright chest radiograph is compared to chest x-ray and chest CT dated 06/12/2024. The patient is status post midline sternotomy. The cardiomediastinal silhouette is top normal for projection. There is mild bibasilar atelectasis. The lungs and pleural spaces are otherwise clear. No pneumothorax is seen. The bony thorax is grossly intact. IMPRESSION: No active disease in the chest. ACT 112: Negative or not required by law. Electronically signed by: Les Nguyễn M.D. 06/19/2024 8:36 PM Discharge Plan Visit Data Chief Complaint: TIA Symptoms Stated Complaint: DIZZY, VISUAL ISSUES, NUMBNESS, GEN PAIN/CHEST ED Provider: Les Menezes Discharge Problem: Syncope, BONILLA (acute kidney injury), Weakness, Acute dehydration, Tachycardia, Diaphoresis Patient Disposition: Admitted As Inpatient Condition: Serious Discharge Instructions Interventions: ED Discharge Assessment Last Done: 06/19/24 22:02 Discharge Problem: Syncope Qualifiers: Syncope type: unspecified Qualified Code(s): R55 - Syncope and collapse
[2024-06-19 19:22] LABS: Alanine Aminotransferase 18 U/L (7-52); Albumin Globulin Ratio 1.7 (0.9-2); Albumin Level 5.2 gm/dl (3.4-5.0); Alkaline Phosphatase 93 U/L (34-104); BUN Creatinine Ratio 9.9 (10-20); Bilirubin,Total 0.8 mg/dl (0.2-1.0); Blood Urea Nitrogen 16 mg/dl (6-23); Carbon Dioxide 20 mmol/L (21-32); Chloride 94 mmol/L (98-107); Creatinine Clr Calc Pharmacy 60.4 ml/min; Est GFR (Non-African American) 50.9 ml/min; Globulin 3.1 gm/dl (2.5-4.0); Glucose 191 mg/dl (70-99(Fasting)); Lipase 35 U/L (11-82); Total Protein 8.3 gm/dl (6.0-8.3)
[2024-06-19 19:50] LABS: Magnesium 1.8 mg/dl (1.7-2.4); Partial Thromboplastin Ratio 0.8; Partial Thromboplastin Time 22 Seconds (21-31); Potassium 2.9 mmol/L (3.5-5.1); Prothrombin Time 11.3 Seconds (9.0-12.0)
[2024-06-19] MEDS: POTASSIUM CHLORIDE CRTAB 20 MEQ TABCR PO STA (20:30)
[2024-06-19] MEDS: MAGNESIUM SULFATE / D5W 1 GM/100 ML BAG IV ONE (20:30)
--- NOTE | 2024-06-19 20:38 | XRay Report ---
SINGLE VIEW CHEST CLINICAL HISTORY: Atypical chest pain. Dyspnea FINDINGS: An AP upright chest radiograph is compared to chest x-ray and chest CT dated 06/12/2024. The patient is status post midline sternotomy. The cardiomediastinal silhouette is top normal for projec tion. There is mild bibasilar atelectasis. The lungs and pleural spaces are otherwise clear. No pneum othorax is seen. The bony thorax is grossly intact. IMPRESSION: No active disease in the chest. ACT 112: Negative or not required by law. Electronically signed by: Les Nguyễn M.D. 06/19/2024 8:36 PM
--- NOTE | 2024-06-19 21:08 | History & Physical Report ---
Date of Service June 19, 2024 Assessment & Plan (1) Syncope and collapse: Plan: 44-year-old male with past medical history significant for type 2 diabetes, hypertriglycerides, history of heart failure with reduced ejection fraction, history of acute pulmonary embolism, hypertension, gastroparesis, GERD, proteinuria, neuropathy, history of alcohol abuse who was recently in the hospital for possible gastroparesis flareup and mild DKA and new onset a flutter and was discharge few days ago comes back because ongoing chest pains, and abdominal pains and in the ER in triage had a syncopal episode. Patient states having a lot of chest pains which is chronic but they have been more severe at this time radiating to up to his head. A lot of abdominal discomfort. Constipated. He states that he is supposed to get colonoscopy in August. He states his stools are small in size. When he is constipated sometimes he notes blood in the stools. Because of his symptoms is not eating/ drinking much. Sometimes gets blurred visions. No runny nose. No earache. No cough. No fevers. States sometimes micturating okay and sometimes not. Not able to ambulate because of weakness. On and off dizziness. In the ER in the triage had an episode of syncope and he was held before falling. He does not remember the episode. His blood pressure was soft systolic in 90s. Received fluid bolus and blood pressure improved. Currently hemodynamics are okay. Patient states he did not drink alcohol for last 4 weeks. States he did not use cannabis, for last 2 weeks. Syncope and collapse On and off dizziness Blood pressure soft Most likely from dehydration from poor oral intake Has BONILLA and elevated hemoglobin We will hold his home Lasix and Entresto and spironolactone IV fluids Orthostatics Telemetry Consult cardiology for further recommendations Hypokalemia Will replace We will follow labs BONILLA Creatinine 1.6 Holding Lasix and Entresto Getting fluids Follow repeat labs in a.m. Chest pains Seems chronic Patient states they are somewhat worse Troponin okay, EKG okay Will follow serial exams and repeat EKG Telemetry Cardiac consult in a.m. Abdominal pain History of gastroparesis Constipation Pain control Currently n.p.o. Can consider GI consult History of heart failure with reduced ejection fraction EF 35 to 39% on echo in 2022 EF 50 to 55% echo done in May 2024 Currently holding Entresto and Lasix and spironolactone Getting gentle fluids Will monitor for volume overload History of diabetes We will cut back on Lantus to 10 units daily as patient currently n.p.o. Sliding scale Close monitor A flutter On metoprolol XL 75 mg and Xarelto Will monitor Hypertension Metoprolol XL Holding diuretics and Entresto Will monitor History of PE On Xarelto History of hyperlipidemia On statin DVT prophylaxis On Xarelto Disposition Telemetry Full code. History of Present Illness Chief Complaint: Syncope, chest pain and abdominal pain Primary Care Provider: Dany Caruso MD 44-year-old male with past medical history significant for type 2 diabetes, hypertriglycerides, history of heart failure with reduced ejection fraction, history of acute pulmonary embolism, hypertension, gastroparesis, GERD, proteinuria, neuropathy, history of alcohol abuse who was recently in the hospital for possible gastroparesis flareup and mild DKA and new onset a flutter and was discharge few days ago comes back because ongoing chest pains, and abdominal pains and in the ER in triage had a syncopal episode. Patient states having a lot of chest pains which is chronic but they have been more severe at this time radiating to up to his head. A lot of abdominal discomfort. Constipated. He states that he is supposed to get colonoscopy in August. He states his stools are small in size. When he is constipated sometimes he notes blood in the stools. Because of his symptoms is not eating /drinking much. Sometimes gets blurred visions. No runny nose. No earache. No cough. No fevers. States sometimes micturating okay and sometimes not. Not able to ambulate because of weakness. On and off dizziness. In the ER in the triage had an episode of syncope and he was held before falling. He does not remember the episode. His blood pressure was soft systolic in 90s. Received fluid bolus and blood pressure improved. Currently hemodynamics are okay. Patient states he did not drink alcohol for last 4 weeks. States he did not use cannabis, for last 2 weeks. Past medical history. As mentioned above Past surgical history. Apparent surgery for 2 holes in ventral septum at age 3. Colonoscopy and EGD. EGD with biopsy. EGD with endoscopic ultrasound. Social history. Quit smoking 2017. Smoked 1 pack a day for 40 years. History of alcohol use. History of marijuana use. Family history. No family history on file. Allergies Allergy/AdvReac Type Severity Reaction Status Date / Time Sulfa (Sulfonamide Allergy Intermediate ITCHY/HOT Verified 06/19/24 20:13 Antibiotics) metformin AdvReac Intermediate Diarrhea Verified 06/19/24 20:13 morphine AdvReac Intermediate Nausea Verified 06/19/24 20:13 semaglutide [From Ozempic] AdvReac Intermediate Hallucinati Verified 06/19/24 20:13 ng Home Medications Medication Instructions Recorded Confirmed Type atorvastatin 40 mg tablet 40 mg PO QAM 06/23/21 06/19/24 History ezetimibe 10 mg tablet 10 mg PO QAM 02/09/24 06/19/24 History fenofibrate nanocrystallized 145 145 mg PO QAM 02/09/24 06/19/24 History mg tablet furosemide 20 mg tablet 20 mg PO QAM 02/09/24 06/19/24 History gabapentin 300 mg capsule 300 mg PO TID 02/09/24 06/19/24 History insulin glargine 100 unit/mL (3 20 unit subcut QA 02/09/24 06/19/24 History mL) subcutaneous pen metoprolol succinate 50 mg 75 mg PO QAM 02/09/24 06/19/24 History tablet,extended release 24 hr sacubitril 24 mg-valsartan 26 mg 1 tab PO AMHS 02/09/24 06/19/24 History tablet (Entresto) spironolactone 25 mg tablet 25 mg PO QAM 02/09/24 06/19/24 History rivaroxaban 20 mg tablet (Xarelto) 20 mg PO DAILYBD 03/24/24 06/19/24 History promethazine 6.25 mg/5 mL oral 6.25 mg (5 mL) PO AC #240 mL 04/01/24 06/19/24 Rx syrup aprepitant 40 mg capsule 40 mg PO QAM 06/12/24 06/19/24 History cholecalciferol (vitamin D3) 1,250 1,250 mcg PO WK 06/12/24 06/19/24 History mcg (50,000 unit) capsule empagliflozin 10 mg tablet 10 mg PO QAM 06/12/24 06/19/24 History (Jardiance) magnesium oxide 400 mg PO DAILY 06/12/24 06/19/24 History metoclopramide HCl 5 mg tablet 5 mg PO TID 06/12/24 06/19/24 History pantoprazole 40 mg tablet,delayed 40 mg PO AMHS 06/12/24 06/19/24 History release triamcinolone acetonide 0.1 % 1 applic topical BID PRN Itching 06/12/24 06/19/24 History topical cream Past Med/Surg History Problem List (Updated 06/20/24 @ 00:29 by Les Menezes MD) Diaphoresis (Acute) Tachycardia (Acute) Acute dehydration (Acute) Weakness (Acute) BONILLA (acute kidney injury) (Acute) Syncope (Acute) Syncope and collapse Dehydration (Acute) High anion gap metabolic acidosis (Acute) DKA (diabetic ketoacidosis) (Acute) Alcohol withdrawal Esophagitis DKA (diabetic ketoacidosis) (Acute) Malnutrition Nausea & vomiting Constipation Weight loss Lactic acid acidosis Metabolic acidosis Intractable nausea and vomiting (Acute) BONILLA (acute kidney injury) (Acute) Deep vein thrombosis, lower left extremity Non-ischemic cardiomyopathy New onset of congestive heart failure (04/2022) Overweight (BMI 25.0-29.9) Alcohol abuse Pleural effusion, bilateral (Acute) Dyspnea (Acute) Right bundle branch block Vitamin D deficiency 8.9 in 06/2019 HLD (hyperlipidemia) TG 2049, TC 301 in 06/2019 T2DM (type 2 diabetes mellitus) HTN (hypertension) GERD (gastroesophageal reflux disease) Medical History Chronic wound HFrEF (heart failure with reduced ejection fraction) Pulmonary emboli (04/2022) Gastroparesis Hyperglycemic crisis in diabetes mellitus DKA (diabetic ketoacidosis) History of kidney stones Open trimalleolar fracture (2020) Dislocation of ankle, right, open (2020) Surgical History History of ankle surgery (2020) right ankle external fixator/I&D History of colonoscopy History of esophagogastroduodenoscopy (EGD) History of tooth extraction History of wisdom tooth extraction S/P knee surgery remove fluid off right knee History of heart surgery (1983) VSD- age 3---no issues since surgery, no dietitian therapeutic Family History Father Cardiac disorder Mother No problems noted. Aunt Cardiac disorder Other No family history of adverse response to anesthesia Denies family history of Ovarian cancer Prostate cancer Myocardial infarction Breast cancer Colorectal cancer Social History Smoking Status: Never smoker Age Started Using Tobacco: 16; Age Quit Using Tobacco: 26; packs per day: 0.5; Second Hand Exposure: No; Do You Dip or Chew Tobacco: No; Hx Alcohol Use: Yes Alcohol type: beer Hx Substance Use: No Preferred Language: Danish Communication Ability: Effective Visual Impairment: No Limitations Hearing Ability: Normal Shearing Machine Tender Required: No Beliefs That Will Affect Care: None marital status: Single Current Living Situation: Significant Other current occupational status: employed current occupation: [employer] How many Children do You have: 0 Feels Safe at Home: Yes Dental Care, Regularly: Yes Physical Activity Frequency: 3-4 Times per Week Assistive Devices: Walker Review of Systems Review of Systems: All systems reviewed & are unremarkable except as noted in HPI & below Physical Exam Physical Exam: General- Not in acute distress. Head- atraumatic Eyes- PERRL. ENT- oropharynx clear Neck- supple, no JVD. Lungs- clear to auscultation no wheezing or crackles. Heart- regular rhythm; no murmur, no gallop. Abdomen- normal bowel sounds, soft, nontender, no distension Extremities- no pretibial edema, no erythema seen Neuro- alert, oriented PERRL, no facial palsy; no dysarthria; moves extremities Results & Data Results & Data Vital Signs (Past 12 Hours) Vital Signs Temp Pulse Resp BP Pulse Ox O2 Del Method 06/19/24 20:50 86 06/19/24 20:33 85 15 98 Room Air 06/19/24 20:31 109/71 06/19/24 20:24 78 13 94 Room Air 06/19/24 20:09 81 91 Room Air 06/19/24 19:51 86 06/19/24 18:00 36.3 C L 62 18 100/75 95 Room Air Diagnostic Findings Laboratory Results WBC 10.33 K/ul (4.8-10.8) 06/19/24 18:20 RBC 7.07 M/uL (4.70-6.10) H 06/19/24 18:20 Hgb 20.2 g/dl (14.0-18.0) H 06/19/24 18:20 Hct 58.9 % (42.0-52.0) H 06/19/24 18:20 MCV 83.3 fL (80.0-100.0) 06/19/24 18:20 MCH 28.6 pg (25.0-34.0) 06/19/24 18:20 MCHC 34.3 g/dL (32.0-36.0) 06/19/24 18:20 RDW Std Deviation 36.2 fL (36.4-46.3) L 06/19/24 18:20 RDW Coeff of Trevon 12.6 % (11.5-14.5) 06/19/24 18:20 Plt Count 215 K/uL (130-400) 06/19/24 18:20 MPV 12.7 fL (9.4-12.4) H 06/19/24 18:20 Immature Gran % (Auto) 0.4 % 06/19/24 18:20 Neut % (Auto) 60.8 % 06/19/24 18:20 Lymph % (Auto) 29.4 % 06/19/24 18:20 Costilla % (Auto) 7.3 % 06/19/24 18:20 Eos % (Auto) 1.5 % 06/19/24 18:20 Baso % (Auto) 0.6 % 06/19/24 18:20 Neut # (Auto) 6.29 K/uL (1.40-6.50) 06/19/24 18:20 Lymph # (Auto) 3.04 K/uL (1.20-3.40) 06/19/24 18:20 Costilla # (Auto) 0.75 K/uL (0.11-0.59) H 06/19/24 18:20 Eos # (Auto) 0.15 K/uL (0.00-0.50) 06/19/24 18:20 Baso # (Auto) 0.06 K/uL (0.00-0.20) 06/19/24 18:20 Immature Gran # (Auto) 0.04 K/uL (0.01-0.20) 08/28/24 18:20 PT 11.3 Seconds (9.0-12.0) 06/19/24 19:24 INR 1.0 (0.9-1.1) 06/19/24 19:24 APTT 22 Seconds (21-31) 06/19/24 19:24 PTT Ratio 0.8 06/19/24 19:24 Sodium 137 mmol/L (136-145) 06/19/24 19:24 Potassium 2.9 mmol/L (3.5-5.1) L 06/19/24 19:24 Chloride 94 mmol/L (98-107) L 06/19/24 18:20 Carbon Dioxide 20 mmol/L (21-32) L 06/19/24 18:20 Anion Gap TNP 06/19/24 18:20 BUN 16 mg/dl (6-23) 06/19/24 18:20 Creatinine 1.61 mg/dl (0.6-1.4) H 06/19/24 18:20 Est Cr Clr Drug Dosing 60.4 ml/min 06/19/24 18:20 Est GFR ( Amer) 59.0 ml/min 06/19/24 18:20 Est GFR (Non-Af Amer) 50.9 ml/min 06/19/24 18:20 BUN/Creatinine Ratio 9.9 (10-20) L 06/19/24 18:20 Glucose 191 mg/dl (70-99(Fasting)) H 06/19/24 18:20 POC Glucose 178 mg/dl (70-99) H 06/19/24 18:57 Calcium 10.0 mg/dl (8.6-10.3) 06/19/24 18:20 Magnesium 1.8 mg/dl (1.7-2.4) 06/19/24 19:24 Total Bilirubin 0.8 mg/dl (0.2-1.0) 06/19/24 18:20 AST 18 U/L (13-39) 06/19/24 19:24 ALT 18 U/L (7-52) 06/19/24 18:20 Alkaline Phosphatase 93 U/L (34-104) 06/19/24 18:20 Troponin I High Sens 5.3 pg/ml (0-20) 06/19/24 18:20 B-Natriuretic Peptide 7 pg/ml (0-100) 06/19/24 19:24 Total Protein 8.3 gm/dl (6.0-8.3) 06/19/24 18:20 Albumin 5.2 gm/dl (3.4-5.0) H 06/19/24 18:20 Globulin 3.1 gm/dl (2.5-4.0) 06/19/24 18:20 Albumin/Globulin Ratio 1.7 (0.9-2) 06/19/24 18:20 Lipase 35 U/L (11-82) 06/19/24 18:20 Impressions Chest X-Ray 06/19/24 18:01 SINGLE VIEW CHEST CLINICAL HISTORY: Atypical chest pain. Dyspnea FINDINGS: An AP upright chest radiograph is compared to chest x-ray and chest CT dated 06/12/2024. The patient is status post midline sternotomy. The cardiomediastinal silhouette is top normal for projection. There is mild bibasilar atelectasis. The lungs and pleural spaces are otherwise clear. No pneumothorax is seen. The bony thorax is grossly intact. IMPRESSION: No active disease in the chest. ACT 112: Negative or not required by law. Electronically signed by: Les Nguyễn M.D. 06/19/2024 8:36 PM ECG Additional Comments: ECG. Sinus tachycardia rate of 116. Right bundle branch block. Code Status & VTE Plan VTE Prophylaxis Plan VTE Prophylaxis will be ordered: Yes
[2024-06-19] MEDS ORDERED: GLUCAGON FOR INJ 1 MG VIAL SQ PRN (22:03)
[2024-06-19] MEDS ORDERED: DEXTROSE 50% 50 ML SYRINGE IV PRN (22:03)
[2024-06-19] MEDS ORDERED: GLUCOSE 10 TAB/TUBE PO PRN (22:03)
[2024-06-19] MEDS ORDERED: GLUCOSE 40% GEL 15 GM TUBE PO PRN (22:03)
[2024-06-19] MEDS ORDERED: TRIAMCINOLONE ACET 0.1% CR 15 GM TUBE TOP PRN (22:03)
[2024-06-19] MEDS ORDERED: POLYETHYLENE (MIRALAX) 17 GM PACK PO PRN (22:03)
[2024-06-19] MEDS ORDERED: CARBOHYDRATES FOR HYPOGLYCEMIA PO PRN (22:03)
[2024-06-19] MEDS: PANTOprazole 40 MG TAB PO SCH (22:46)
[2024-06-19] MEDS: GABAPENTIN 300 MG CAP PO SCH (22:47)
[2024-06-19] MEDS: NSS + 20MEQ KCL 20 MEQ/1,000 ML BAG IV SCH (22:47)
[2024-06-19] MEDS: METOCLOPRAMIDE HCL 5 MG TABLET PO SCH (22:47)
[2024-06-19] MEDS: INSULIN ASPART PER UNIT CHARGE SC SCH (23:49)
[2024-06-20 06:44] LABS: BUN Creatinine Ratio 13.3 (10-20); Calcium 8.4 mg/dl (8.6-10.3); Creatinine Clr Calc Pharmacy 77.1 ml/min; Est GFR (African American) 77.8 ml/min; Est GFR (Non-African American) 67.1 ml/min; Potassium 3.8 mmol/L (3.5-5.1)
[2024-06-20 07:11] LABS: Basophils # (auto) 0.04 K/uL (0.00-0.20); Basophils % (auto) 0.6 %; Eosinophils # (auto) 0.12 K/uL (0.00-0.50); Eosinophils % (auto) 1.7 %; Immature Granulocytes # (auto) 0.02 K/uL (0.01-0.20); Immature Granulocytes % (auto) 0.3 %; Lymphocytes # (auto) 2.26 K/uL (1.20-3.40); Mean Corpuscular Hemoglobin 28.2 pg (25.0-34.0); Mean Corpuscular Volume 82.7 fL (80.0-100.0); Mean Platelet Volume 12.2 fL (9.4-12.4); Monocytes # (auto) 0.61 K/uL (0.11-0.59); Monocytes % (auto) 8.6 %; Neutrophils # (auto) 4.02 K/uL (1.40-6.50); Neutrophils % (auto) 56.8 %; Platelet Count 181 K/uL (130-400); RDW Coefficient of Variation 11.9 % (11.5-14.5); Red Blood Count 5.68 M/uL (4.70-6.10); White Blood Count 7.07 K/ul (4.8-10.8)
[2024-06-20 07:20] LABS: Estimated Average Glucose 183 mg/dl
--- OUTSIDE RECORDS SUMMARY | 2024-06-20 07:43 | External Medical Summary | Summary of Care ---
Author Name Unknown Organization [facility] Address [address] [place] [address] Phone [phone] Care Team Providers Care Lead Software Qa Engineer Name Role Phone Dany Caruso MD Primary Care Provide r Encounter Details Date Type Department Care Team (Late st Contact Info) Description 06/18/2024 Telephone Family Medicine [address] [phone] Linda Vale CRNP [address] [place] [address] [place] [phone] Allergies Active Allergy Reactions Criticality Noted Date Comments Metformin Diarrhea High 11/21/2023 Morphine 12/27/2013 Nausea, vomiting, diaphoresis Semaglutide Psych complications High 11/21/2023 Sulfa Antibiotics Itching 10/04/2011 documented as of this encounter (statuses as of 06/18/2024) Medications Medication Sig Dispensed Refills Start Date [...] the morning. 90 Tablet 3 11/28/2023 Active Spironolactone 25 MG Oral Tablet (Aldactone) [...] daily DxE11.9 300 Each 3 12/28/2023 Active Metoprolol Succinate ER 50 MG Oral [...] days. E11.9 3 Each 5 01/24/2024 Active Gabapentin 300 MG Oral Capsule (Neurontin)Indicatio ns:Neuropathy Take 1 Capsule by mouth in the morning and 1 Capsule at noon and 1 Capsule before bedtime. 90 Capsule 3 03/20/2024 Active Vitamin D3 1.25 MG (30677 UT) Oral CapsuleIndications:V itamin D deficiency Take 1 Capsule by mouth once a week. 12 Capsule 04/16/2024 07/15/2024 Active Insulin Glargine Solostar 100 UNIT/ML Subcutaneous Solution Pen-injector (Lantus SoloStar)Indications :Type 2 diabetes mellitus with hemoglobin A1c goal of less than 7.0% ([facility]) Inject 20 Units under the skin daily. Patient taking 20 units daily 04/16/2024 Active BD Pen Needle Imelda 2nd Gen 32G X 4 MM (Insulin Pen Needle)Indications:T ype 2 diabetes mellitus with autonomic neuropathy, 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 helper insulin use ([facility]) USE WITH INSULIN ONCE DAILY 100 Each 1 05/17/2024 Active Triamcinolone Acetonide 0.1 % External Cream (Aristocort)Indicati ons:Contact dermatitis, unspecified contact dermatitis type, unspecified trigger APPLY TO AFFECTED AREA TWICE A DAY NEEDED FOR ITCHING 60 g 05/20/2024 Active Metoclopramide HCl 5 MG Oral Tablet (Reglan)Indications: Gastroparesis Take 1 Tablet by mouth in the morning and 1 Tablet at noon and 1 Tablet before bedtime. 90 Tablet 05/27/2024 Active Promethazine HCl 6.25 MG/5ML Oral SolutionIndications: Gastroparesis Take 6.25 mg by mouth in the morning and 6.25 mg at noon and 6.25 mg in the evening. Take before meals. 240 mL 05/27/2024 Active Aprepitant 40 MG Oral Capsule Take 1 Capsule by mouth in the morning. 30 Capsule 1 06/07/2024 Active Pantoprazole Sodium 40 MG Oral Tablet Delayed Release (Protonix)Indication s:Gastroesophageal reflux disease without esophagitis Take 1 Tablet by mouth in the morning and 1 Tablet before bedtime. 30 minutes before the first meal of the day. Do not crush, split or chew the tablet. 60 Tablet 3 06/07/2024 Active Sucralfate 1 GM/10ML Oral Suspension (Carafate)Indication s:Gastroparesis Take 1 mL by mouth in the morning and 1 mL at noon and 1 mL in the evening and 1 mL before bedtime. 420 mL 06/18/2024 Active Magnesium Citrate Oral SolutionIndications: Other constipation Take 120 mL by mouth daily as needed for Constipation. for severe constipation. 240 mL 06/18/2024 Active Sacubitril-Valsartan 24-26 MG Oral Tablet (Entresto)Indication s:HTN, goal below 130/80 Take 1 Tablet by mouth in the morning and 1 Tablet before bedtime. 180 Tablet 06/18/2024 Active DULoxetine HCl 30 MG Oral Capsule Delayed Release Particles (Cymbalta)Indication s:Other chronic pain,Type 2 diabetes mellitus with diabetic autonomic neuropathy, with long-term current use of insulin (HCC) Take 1 Capsule by mouth in the morning. Do not cut, crush or chew. 30 Capsule 5 06/18/2024 Active documented as of this encounter (statuses as of 06/18/2024) Active Problems Problem Noted Date Diagnosed Date [...] as of this encounter (statuses as of 06/18/2024) Resolved Problems Problem Noted Date Diagnosed Date Resolved Date Type 2 diabetes mellitus wit h autonomic neuropathy 06/29/2022 12/19/2022 Neuropathy 04/07/2021 12/19/2022 Diabetic ketoacidosis withou t coma associated with type 2 diabetes mellitus 04/07/2021 05/06/2021 Overview: 02/2021 Fatigue 11/13/2011 05/10/2022 Esophageal reflux 10/04/2011 04/07/2021 documented as of this encounter (statuses as of 06/18/2024) Immunizations Name Administration Dates Next Due Seasonal [...] encounter Miscellaneous Notes * Telephone Encounter - Mary Lou Zee PHARM Tech - 06/18/2024 11:57 AM EDT Pt called stating pharmacy can't fill rx. Called Pharmacy and they said magnesium is not covered but pt can just get that otc and pharmacy needed directions for sucralfate. Advised pharmacy of directions on script. Thanks, Mary Lou Zee [employer] [facility] 06/18/2024,11:58 AM documented in this encounter Plan of Treatment Upcoming Encounters Date Type Department Care Team (Latest Contact Info) Description 06/19/2024 12:40 PM EDT Office Visit Family [address] [place] [phone] Dany Caruso MD [address] [place] [address] [place] [phone] 06/20/2024 11:00 AM EDT Cardiac Studies Cardiac Studies, [facility] [address] [facility] [place] [address] 06/27/2024 6:10 PM EDT Pharmacy Pharmacy, [address] [place] [address] [place] [address] 07/08/2024 11:30 AM EDT Office Visit Gastroenterology [address] [place] [address] Marsha Loco CRNP [address] [facility] [place] [address] 08/28/2024 8:20 AM EST Office Visit Family [address] [place] [phone] Dany Caruso MD [address] [place] [address] [place] [phone] 09/05/2024 1:00 PM EST Hospital Encounter ENDO [facility], Endoscopy Room [facility] [address] [facility] [place] [address] Yudith Root, DO [address] [place] [address] 09/05/2024 1:00 PM EST - 09/05/2024 2:00 PM EST Surgery ENDO [facility], Endoscopy Room [facility] [address] [place] [phone] Yudith Root, [address] [place] [address] COLONOSCOPY FLEXIBLE PROXIMAL DIAGNOSTIC 09/30/2024 9:30 AM EST Office Visit Cardiology, [facility] [address] [place] [address] Joaquina Hernández CRNP [address] [place] [address] Scheduled Procedures Name Priority Associated Diagnoses Date/Ti [...] 05/18/2024 023, 07/06/2022, 03/24/2022, Additional history exists Cologuard 2024 Colonoscopy 2024 01/10/2014, 01/10/2014 Colorectal Cancer Screening 2024 Fecal Occult Blood Test 2024 Sigmoidoscopy 2024 Influenza Vaccine (FLU shot) (#1) 2024 10/04/2011 HbA1c 08/20/2024 02/19/2024, 09/23, 05/18/2023, Additional history exists Diabetic Eye Exam 12/15/2024 12/15/2023, , 03/31/2022, Additional history exists Diabetic Foot Exam 12/15/2024 12/15/2023, 0 12/19/2022, 05/06/2021 GFR 04/16/2025 04/16/2024, 02/20, 02/19/2024, Additional history exists Lipid Panel 03/07/2029 03/07/2024, 11/24, 10/13/2023, Additional history exists DTap/Tdap Vaccines (3 - Td or Tdap) 06/23/2031 06/23/2021, 08/15/2011 HPV (Gardasil) Vaccine Aged Out No lo nger eligible based on patient's age to complete this topic MENINGOCOCCAL (MENACTRA/MENVEO) Aged Out No longer eligible based on patient's age to complete this topic documented as of this encounter Medical Devices Not on filedocumented as of this encounter Care Teams Lead Software Qa Engineer Relationship Specialty Start Date End Date Dany Caruso MD [address] [place] [address] [place] [id number] PCP - General Family Medicine 04/07/21 documented as of this encounter
--- OUTSIDE RECORDS SUMMARY | 2024-06-20 07:43 | External Medical Summary | Summary of Care ---
Author Name Unknown Organization [facility] Address [address] [place] [address] Phone [phone] Care Team Providers Care Dipper Clock And Watch Hands Name Role Phone Dany Caruso MD Primary Care Provide r Encounter Details Date Type Department Care Team (Late st Contact Info) Description 06/17/2024 Population Health External Data Unspecified Department Allergies Active Allergy Reactions Criticality Noted Date Comments Metformin Diarrhea High 11/21/2023 Morphine 12/27/2013 Nausea, vomiting, diaphoresis Semaglutide Psych complications High 11/21/2023 Sulfa Antibiotics Itching 10/04/2011 documented as of this encounter (statuses as of 06/17/2024) Medications Medication Sig Dispensed Refills Start Date End Date Status OneTouch Verio w/Device KitIndications:Type 2 diabetes mellitus with hemoglobin A1c goal of less than 7.0% ([facility]) Use to test once a day E11.9 1 Kit 03/23/2022 Active Magnesium Oxide (Elemental) 400 MG Oral Tablet Take by mouth 400 mg daily . 05/20/2022 Active Insulin Syringe 31G X /16" 0.3 ML Use to inject insulin twice [...] before bedtime. 180 Tablet 5 11/28/2023 Active Spironolactone 25 MG Oral Tablet [...] ejection fraction) ([facility]) Take 1.5 Tablets by mouth in the morning. 135 Tablet 2 01/22/2024 Active Furosemide 20 MG Oral Tablet (Lasix) Take 1 tablet by mouth daily. Take an extra tablet if weight gain 3 lbs in 1 day or 5 lbs in 1 week. 45 Tablet 5 01/23/2024 Active Dexcom G7 Sensor Apply 1 sensor every 10 days. E11.9 3 Each 01/24/2024 Active Gabapentin 300 MG Oral Capsule (Neurontin)Indicatio ns:Neuropathy Take 1 Capsule by mouth in the morning and 1 Capsule at noon and 1 Capsule before bedtime. 90 Capsule 3 03/20/2024 Active Vitamin D3 1.25 MG (72225 UT) Oral CapsuleIndications:V itamin D deficiency Take 1 Capsule by mouth once a week. 12 Capsule 04/16/2024 07/15/2024 Active Insulin Glargine Solostar 100 UNIT/ML Subcutaneous Solution Pen-injector (Lantus SoloStar)Indications :Type 2 diabetes mellitus with hemoglobin A1c goal of less than 7.0% ([facility]) Inject 20 Units under the skin daily. Patient taking 20 units daily 04/16/2024 Active BD Pen Needle Imelda 2nd Gen 32G X 4 MM (Insulin Pen Needle)Indications:T ype 2 diabetes mellitus with autonomic neuropathy, unspecified whether custodial insulin use ([facility]) USE WITH INSULIN ONCE DAILY 100 Each 1 05/17/2024 Active Triamcinolone Acetonide 0.1 % External Cream (Aristocort)Indicati ons:Contact dermatitis, unspecified contact dermatitis type, unspecified trigger APPLY TO AFFECTED AREA TWICE A DAY NEEDED FOR ITCHING 60 g 05/20/2024 Active Sucralfate 1 GM/10ML Oral Suspension (Carafate) 1 mL. 05/22/2024 Active Metoclopramide HCl 5 MG Oral Tablet (Reglan)Indications: Gastroparesis Take 1 Tablet by mouth in the morning and 1 Tablet at noon and 1 Tablet before bedtime. 90 Tablet 05/27/2024 Active Promethazine HCl 6.25 MG/5ML Oral SolutionIndications: Gastroparesis Take 6.25 mg by mouth in the morning and 6.25 mg at noon and 6.25 mg in the evening. Take before meals. 240 mL 1 05/27/2024 Active Aprepitant 40 MG Oral Capsule [...] the tablet. 60 Tablet 3 06/07/2024 Active documented as of this encounter (statuses as of 06/17/2024) Active Problems Problem Noted Date Diagnosed Date [...] as of this encounter (statuses as of 06/17/2024) Resolved Problems Problem Noted Date Diagnosed Date Resolved Date Type 2 diabetes mellitus wit h autonomic neuropathy 06/29/2022 12/19/2022 Neuropathy 04/07/2021 12/19/2022 Diabetic ketoacidosis withou t coma associated with type 2 diabetes mellitus 04/07/2021 05/06/2021 Overview: 02/2021 Fatigue 11/13/2011 05/10/2022 Esophageal reflux 10/04/2011 04/07/2021 documented as of this encounter (statuses as of 06/17/2024) Immunizations Name Administration Dates Next Due Seasonal [...] Department Care Team (Latest Contact Info) Description 06/18/2024 9:20 AM EDT Office Visit Family Medicine [address] [place] [phone] Linda Vale CRNP [address] [place] [address] [place] [address] 06/19/2024 12:40 PM EDT Office Visit Family Medicine [address] [place] [phone] Dany Caruso MD [address] [place] [address] [place] [address] 06/20/2024 11:00 AM EDT Cardiac Studies Cardiac Studies, [address] [place] [address] 06/27/2024 6:10 PM EDT Pharmacy Pharmacy, [address] [place] [address] [place] [address] 07/08/2024 11:30 AM EDT Office Visit Gastroenterology [address] [place] [address] Marsha Loco CRNP [address] [place] [address] 08/28/2024 8:20 AM EST Office Visit Family Medicine [address] [place] [phone] Dany Caruso MD [address] [place] [address] [place] [address] 09/05/2024 1:00 PM EST Hospital Encounter ENDO [facility], Endoscopy Room [facility] [address] [place] [phone] Yudith Root DO [address] [place] [address] 09/05/2024 1:00 PM EST - 09/05/2024 2:00 PM EST Surgery ENDO [facility], Endoscopy Room [facility] [address] [place] [phone] Yudith Root DO [address] [place] [address] COLONOSCOPY FLEXIBLE PROXIMAL DIAGNOSTIC 09/30/2024 9:30 AM EST Office Visit Cardiology, [facility] [address] [place] [address] Joaquina Hernández CRNP [address] [place] [address] Scheduled Procedures Name Priority Associated Diagnoses Date/Ti [...] 3-dose series) 1998 COVID-19 Vaccine (1 - season) 2023 Depression Screening 08/31/2023 08/31/2022 [...] filedocumented as of this encounter Care Teams Dipper Clock And Watch Hands Relationship Specialty Start Date End Date Dany Caruso MD [address] [place] [address] [place] [phone] PCP - General Family Medicine 04/07/21 documented as of this encounter
--- OUTSIDE RECORDS SUMMARY | 2024-06-20 07:43 | External Medical Summary | Summary of Care ---
Author Name Unknown Organization [facility] Address [address] [place] [address] Phone [phone] Care Team Providers Care Superintendent Plant Name Role Phone Dany Caruso MD Primary Care Provide r Reason for Referral * Evaluate & Treat - Unlimited Visits (Within 10 days (routine)) - Authorized Specialty Diagnoses / Procedures Referred By Contblaine joseph Referred To Contact Pain Management / Pain Medicine Diagnoses Other chronic pain Linda Vale CRNP [address] [place] [address] [place] [address] Referral ID Status Reason Start Date Expiration Date Visits Requested Visits Authorized [id number] Authorized Specialty Services Required 06/18/2024 999 999 Question Answer Referral Priority Within 10 days (routine) Where should this appointment be scheduled? External Reason for referral? Non Interventional Pain Management What is the preferred location to have this test performed? Non [facility] Comments Patient Name: Man Day Date of : 1980 Department Phone Number: MRI or CT (if unable to have a MRI) is recommended if any of the following apply: 1. Patient has neck or back pain with radiation to extremities. A previous MRI will be accepted if symptoms unchanged since prior MRI. 2. Spinal surgery since last MRI. If yes, order a MRI with and without contrast. 3. Hx or ongoing cancer treatment. Patient will need spine x-ray (Ap/Lat) for axial neck or back pain if not done previously. Fax No. [facility] [phone] or contact front office specialist [phone] Fax No. [facility] [phone] or contact front office specialist [phone] Fax No. [facility] [phone] or contact front office specialist [phone] Reason for Visit * Reason Comments Hospital Follow-Up Encounter Details Date Type Department Care Team (Late st Contact Info) Description 06/18/2024 9:20 AM EDT Office Visit Family Medicine [address] [place] [phone] Linda Vale CRNP [address] [place] [address] [place] [address] Chest pressure*; Other chronic pain; HTN, goal below 130/80; Gastroparesis; Other constipation; Type 2 diabetes mellitus with diabetic autonomic neuropathy, with long-term current use of insulin ([facility]) Allergies Active Allergy Reactions Criticality Noted Date Comments Metformin Diarrhea High 11/21/2023 Morphine 12/27/2013 Nausea, vomiting, diaphoresis Semaglutide Psych complications High 11/21/2023 Sulfa Antibiotics Itching 10/04/2011 documented as of this encounter (statuses as of 06/18/2024) Medications Medication Sig Dispensed Refills Start Date End Date Status OneTouch Verio w/Device KitIndications:Type 2 diabetes mellitus with hemoglobin A1c goal of less than 7.0% ([facility]) Use to test once a day [...] failure with reduced ejection fraction) ([facility]) Take 1.5 Tablets by mouth in [...] 01/24/2024 Active Gabapentin 300 MG Oral Capsule (Neurontin)Indicati ons:Neuropathy Take 1 Capsule by mouth in the morning and 1 Capsule at noon and 1 Capsule before bedtime. 90 Capsule 3 03/20/2024 Active Vitamin D3 1.25 MG (98844 UT) Oral CapsuleIndications: Vitamin D deficiency Take 1 Capsule by mouth once a week. 12 Capsule 04/16/2024 Active Insulin Glargine Solostar 100 UNIT/ML Subcutaneous Solution Pen-injector (Lantus SoloStar)Indication s:Type 2 diabetes mellitus with hemoglobin A1c goal of less than 7.0% ([facility]) Inject 20 Units under the skin daily. 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 420 mL 1 06/18/2024 Active Magnesium Citrate Oral SolutionIndications :Other constipation Take 120 mL by mouth daily as needed for Constipation. for severe constipation. 240 mL 1 06/18/2024 Active Sacubitril-Valsarta n 24-26 MG Oral Tablet (Entresto)Indicatio ns:HTN, goal below 130/80 Take 1 Tablet by mouth in the morning and 1 Tablet before bedtime. 180 Tablet 5 06/18/2024 Active DULoxetine HCl 30 MG Oral Capsule Delayed Release Particles (Cymbalta)Indicatio ns:Other chronic pain,Type 2 diabetes mellitus with diabetic autonomic neuropathy, with long-term current use of insulin (HCC) Take 1 Capsule by mouth in the morning. Do not cut, crush or chew. 30 Capsule 5 06/18/2024 Active Sacubitril-Valsarta n 24-26 MG Oral Tablet (Entresto) Take 1 Tablet by mouth in the morning and 1 Tablet before bedtime. 180 Tablet 5 11/28/2023 4 Discontinue d(Refill) Sucralfate 1 GM/10ML Oral Suspension (Carafate) 1 mL. 05/22/2024 4 Discontinue d(Refill) documented as of this [...] Sign Reading Time Taken Comments Blood Pressure 104/66 06/18/2024 9:15 AM EDT Pulse 106 06/18/2024 9:15 AM EDT Temperature 35.9 C (96.7 F) 06/18/2024 9:15 AM ED T Respiratory Rate 16 06/18/2024 9:15 AM EDT Oxygen Saturation 96% 06/18/2024 9:15 AM EDT Inhaled Oxygen Concentration - - Weight 93.6 kg (206 lb 5 oz) 06/18/2024 9:15 AM EDT Height - - Body Mass Index 31.38 04/03/2024 10:41 AM EDT documented in this encounter Nursing Notes * Rohini Moya LPN - 06/18/2024 9:09 AM EDT [facility] follow up Needs the laxative he was given at the hospital. C/o "heart hurts' all week. Face hurts. Less energy. Declined EKG that I offered. He said no, he has an eugenie tomorrow and they will be doing one then. Wants muscle relaxers or oxy because he can't sleep at night. He can't take the pain anymore and itis getting out of control C/o hands getting discolored. Happened before. documented in this encounter Plan of Treatment Upcoming Encounters Date Type Department Care Team (Latest Contact Info) Description 06/19/2024 12:40 PM EDT Office Visit Family Medicine [address] [place] [phone] Dany Caruso MD [address] [place] [address] [place] [address] 06/20/2024 11:00 AM EDT Cardiac Studies Cardiac Studies, [facility] [address] [facility] [place] [address] 06/27/2024 6:10 PM EDT Pharmacy Pharmacy, [address] [place] [address] [place] [address] 07/08/2024 11:30 AM EDT Office Visit Gastroenterology [address] [place] [address] Marsha Loco CRNP [address] [place] [address] 08/28/2024 8:20 AM EST Office Visit Family Medicine [address] [place] [phone] Dany Caruso MD [address] [place] [address] [place] [address] 09/05/2024 1:00 PM EST Hospital Encounter ENDO [facility], Endoscopy Room [facility] [address] [place] [phone] Yudith Root DO [address] [place] [address] 09/05/2024 1:00 PM EST - 09/05/2024 2:00 PM EST Surgery ENDO [facility], Endoscopy Room [facility] [address] [place] [phone] Yudith Root DO [address] [place] [address] COLONOSCOPY FLEXIBLE PROXIMAL DIAGNOSTIC 09/30/2024 9:30 AM EST Office Visit Cardiology, [facility] [address] [place] [address] Joaquina Hernández CRNP [address] [place] [address] Scheduled Orders Name Type Priority Associated Diagnoses Orde r Schedule EKG EKG Routine Chest pressure Expected: 06/18/2024 (Approximate), Expi res: 07/19/2025 Scheduled Procedures Name Priority Associated Diagnoses Date/Ti me COLONOSCOPY FLEXIBLE PROXIMA L DIAGNOSTIC Abdominal pain 09/05/2024 1:00 PM EST ESOPHAGOGASTRODUODENOSCOPY ( EGD), FLEXIBLE, TRANSORAL, DIAGNOSTIC Abdominal pain 09/05/2024 1:00 PM EST Scheduled Referrals Name Type Priority Associated Diagnoses Orde r Schedule PAIN MEDICINE REFERRAL OP Referral Within 10 days (routine) Other chronic pain Ordered: 06/18/2024 Health Maintenance Due Date Last Done Comments [...] as of this encounter Visit Diagnoses Diagnosis Chest pressure- Primary Other chest pain Other chronic pain HTN, goal below 130/80 Unspecified essential hypertension Gastroparesis Other constipation Type 2 diabetes mellitus with diabetic autonomic neuropathy, with long-term current use of insulin (HCC) Abdominal pain Abdominal pain, unspecified site documented in this encounter Care Teams Superintendent Plant Relationship Specialty Start Date End Date Dany Caruso MD [address] [place] [address] [place] [address] PCP - General Family Medicine 04/07/21 documented as of this encounter
--- OUTSIDE RECORDS SUMMARY | 2024-06-20 07:43 | External Medical Summary | Summary of Care ---
Author Name Unknown Organization [facility] Address [address] [place] [address] Phone [phone] Care Team Providers Care Provider Network Analyst Name Role Phone Dany Caruso MD Primary Care Provide r Encounter Details Date Type Department Care Team (Late st Contact Info) Description 06/12/2024 9:30 AM EDT Scheduled Telephone Care Coordination and Integration [address] [place] [address] [facility] Health Manager Relationship [address] [place], [place] [phone] Allergies Active Allergy Reactions Criticality Noted Date Comments Metformin Diarrhea High 11/21/2023 Morphine 12/27/2013 Nausea, vomiting, diaphoresis Semaglutide Psych complications High 11/21/2023 Sulfa Antibiotics Itching 10/04/2011 documented as of this encounter (statuses as of 06/13/2024) Medications Medication Sig Dispensed Refills Start Date End Date Status OneTouch Verio w/Device KitIndications:Type 2 diabetes mellitus with hemoglobin A1c goal of less than 7.0% ([facility]) Use to test once a day E11.9 [...] (heart failure with reduced ejection fraction) ([facility]) Take 1.5 Tablets by mouth in the [...] 3 03/20/2024 Active Vitamin D3 1.25 MG (44650 UT) Oral CapsuleIndications:V itamin D deficiency Take 1 Capsule by mouth once a week. 12 Capsule 04/16/2024 07/15/2024 Active Insulin Glargine Solostar 100 UNIT/ML Subcutaneous Solution Pen-injector (Lantus SoloStar)Indications :Type 2 diabetes mellitus with hemoglobin A1c goal of less than 7.0% ([facility]) Inject 20 Units under the skin daily. Patient taking 20 units daily 04/16/2024 Active BD Pen Needle Imelda 2nd Gen 32G X 4 MM (Insulin Pen Needle)Indications:T ype 2 diabetes mellitus with autonomic neuropathy, unspecified whether usp insulin use (HCC) USE WITH INSULIN ONCE [...] as of this encounter (statuses as of 06/13/2024) Active Problems Problem Noted Date Diagnosed Date [...] as of this encounter (statuses as of 06/13/2024) Resolved Problems Problem Noted Date Diagnosed Date Resolved Date Type 2 diabetes mellitus wit h autonomic neuropathy 06/29/2022 12/19/2022 Neuropathy 04/07/2021 12/19/2022 Diabetic ketoacidosis withou t coma associated with type 2 diabetes mellitus 04/07/2021 05/06/2021 Overview: 02/2021 Fatigue 11/13/2011 05/10/2022 Esophageal reflux 10/04/2011 04/07/2021 documented as of this encounter (statuses as of 06/13/2024) Immunizations Name Administration Dates Next Due Seasonal [...] as of this encounter Progress Notes * Ailyn Valadez OSA - 06/13/2024 7:52 AM EDT Pt is returning your call. He can be reached at [phone]. Thank you! * Shahab Tipton Community Health Manager Relationship - 06/12/2024 9:35 AM EDT Telemedicine visit: No Community Health Manager Relationship (CARLY) documentation: CHW follow up phone call for RNCM and reached the patient's voicemail. CHW left a brief message with my callback information. Jesus Tipton Community Health Worker Lead [facility] Rosa Narayanan [phone] documented in this encounter Plan of Treatment Upcoming Encounters Date Type Department Care Team (Latest Contact Info) Description 06/19/2024 12:40 PM EDT Office Visit Family [address] [place] [phone] Dany Caruso MD [address] [place] [address] [place] [address] 06/20/2024 11:00 AM EDT Cardiac Studies Cardiac Studies, [facility] [address] [place] [address] 06/27/2024 6:10 PM EDT Pharmacy Pharmacy, [address] [place] [address] [place] [address] 07/08/2024 11:30 AM EDT Office Visit Gastroenterology [address] [place] [address] Marsha Loco CRNP [address] [place] [address] 08/28/2024 8:20 AM EST Office Visit [address] [place] [phone] Dany Caruso MD [address] [place] [address] [place] [address] 09/05/2024 1:00 PM EST Hospital Encounter [facility], Endoscopy Room [facility] [address] [place] [phone] Yudith Root DO [address] [place] [address] 09/05/2024 1:00 PM EST - 09/05/2024 2:00 PM EST Surgery [facility], Endoscopy Room [facility] [address] [place] [phone] Yudith Root DO [address] [place] [address] COLONOSCOPY FLEXIBLE PROXIMAL DIAGNOSTIC 09/30/2024 9:30 AM EST Office Visit Cardiology, [facility] [address] [place] [address] Joaquina Hernández CRNP [address] [place] [address] Scheduled Procedures Name Priority Associated Diagnoses Date/Ti [...] filedocumented as of this encounter Care Teams Provider Network Analyst Relationship Specialty Start Date End Date Dany Caruso MD [address] [place] [address] [place] [address] PCP - General Family Medicine 04/07/21 documented as of this encounter
[2024-06-20] MEDS: PROMETHAZINE HCL SYRUP 6.25 MG/5 ML PO SCH (07:59)
[2024-06-20] MEDS: APREPITANT 40 MG CAP PO SCH (08:27)
[2024-06-20] MEDS: METOPROLOL SUCC 25MG EXT REL TAB PO SCH (08:28)
[2024-06-20] MEDS: MAGNESIUM OXIDE 400 MG TAB PO SCH (08:29)
[2024-06-20] MEDS: ATORVASTATIN 40 MG TAB PO SCH (08:30)
[2024-06-20] MEDS: FENOFIBRATE NANOCRYSTALLIZED 145 MG TABLET PO SCH (08:30)
[2024-06-20] MEDS: EMPAGLIFLOZIN 10 MG TAB PO SCH (08:30)
[2024-06-20] MEDS: EZETIMIBE 10 MG TAB PO SCH (08:31)
--- NOTE | 2024-06-20 10:27 | Hospitalist Progress Note ---
Date of Service June 20, 2024 Assessment & Plan (1) Syncope and collapse: Plan: 44-year-old male with past medical history significant for type 2 diabetes, hypertriglycerides, history of heart failure with reduced ejection fraction, history of acute pulmonary embolism, hypertension, gastroparesis, GERD, proteinuria, neuropathy, history of alcohol abuse who was recently in the hospital for possible gastroparesis flareup and mild DKA and new onset a flutter and was discharge few days ago comes back because ongoing chest pains, and abdominal pains and in the ER in triage had a syncopal episode. Syncope Likely due to hypotension/hypovolemia Patient presents with dizziness and episode of syncope Reports that he took extra dose of Entresto recently to"decrease his heart rate" Blood pressure on the low side on admission Evaluated by cardiology. Discussed with them; recommended to continue Entresto at discharge, can make Lasix as needed. Monitor on telemetry Hypokalemia- repleted BONILLA Creatinine 1.6 Holding Lasix and Entresto Getting fluids Follow repeat labs in a.m. Chest pain ACS rule dout Evaluated by cardiology; chest pain of noncardiac origin. Monitor for now History of heart failure with reduced ejection fraction EF 35 to 39% on echo in 2022 EF 50 to 55% echo done in May 2024 Currently holding Entresto and Lasix and spironolactone Getting gentle fluids Will monitor for volume overload History of type 2 diabetes mellitus We will cut back on Lantus to 10 units daily Sliding scale Close monitor A flutter On metoprolol XL 75 mg and Xarelto Will monitor Hypertension Continue Metoprolol XL Holding diuretics and Entresto Will monitor History of PE On Xarelto, continue History of hyperlipidemia On statin,continue DVT prophylaxis On Xarelto Disposition Telemetry Full code. Time spent evaluating patient, direct bedside care, chart review, placing orders, interpretation of diagnostic studies, discussion with consultants, patient, and family members, as well as other required patient management activities is 50 minutes Please note the above document was generated using voice recognition software. It may contain grammatical, syntax or spelling errors. Any formal questions or concerns about the content, text or information contained within the body of this dictation should be directly addressed to the provider for clarification Admission and Anticipated Discharge Date Admission Date: June 19, 2024 Subjective Patient reports that he is still feeling slightly dizzy. He denies any chest pain or shortness of breath Vital signs are stable Review of Systems Review of Systems: All systems reviewed & are unremarkable except as noted in Subjective Physical Exam Physical Exam: Constitutional: WD/WN, vitals as above, NAD, sitting up in bed, pleasant, conversing easily Respiratory: normal respiratory effort, lungs clear to auscultation, no wheeze, rales, rhonchi. Normal insp/exp effort, no accessory muscle use Cardiovascular: RRR, no murmur, no edema Vessels: no JVD or carotid bruit Chest: normal inspection of chest Abdomen: normal bowel sounds, soft, nontender, no hepatosplenomegaly Musculoskeletal: no cyanosis or clubbing, extremities motor strength 5/5 Skin: no rashes, warm and dry normal turgor Neurologic: PERRL, EOMI, accommodation nl, no face palsy, no dysarthria CN's II- XI intact bilaterally and moves all extremities Psychiatric: A+Ox3, euthymic affect Results & Data Results & Data Vital Signs (Past 12 Hours) Vital Signs Pulse Pulse Resp BP BP Pulse Ox O2 Del Method 06/20/24 07:53 90 06/20/24 06:00 83 21 109/73 95 Room Air 06/20/24 03:00 91 H 16 105/72 96 Room Air 06/19/24 23:51 82 13 116/79 97 Room Air 06/19/24 22:42 89 17 93 Room Air 06/19/24 22:30 100/75
--- NOTE | 2024-06-20 12:39 | Electrocardiogram Report ---
Test Reason : Blood Pressure : */* mmHG Vent. Rate : 116 BPM Atrial Rate : 116 BPM P-R Int : 182 ms QRS Dur : 144 ms QT Int : 328 ms P-R-T Axes : -6 160 -10 degrees QTcB Int : 455 ms Sinus tachycardia Right bundle branch block Septal infarct , age undetermined Possible Lateral infarct , age undetermined Cannot rule out Inferior infarct (cited on or before 18-Nov-2023) Abnormal ECG When compared with ECG of 13-Jun-2024 16:44, Septal infarct is now Present T wave inversion no longer evident in Lateral leads Confirmed by León Castelan ([id number]) on 06/20/2024 12:39:09 PM Referred By: REFERRED SELF Confirmed By: León Castelan
--- NOTE | 2024-06-20 12:40 | Electrocardiogram Report ---
Test Reason : Blood Pressure : */* mmHG Vent. Rate : 90 BPM Atrial Rate : 90 BPM P-R Int : 206 ms QRS Dur : 160 ms QT Int : 416 ms P-R-T Axes : 36 -16 11 degrees QTcB Int : 508 ms Sinus rhythm with occasional Premature ventricular complexes Right bundle branch block Inferior infarct (cited on or before 18-Nov-2023) Abnormal ECG When compared with ECG of 19-Jun-2024 18:46, Premature ventricular complexes are now Present QRS axis Shifted right Confirmed by León Castelan ([id number]) on 06/20/2024 12:40:04 PM Referred By: REFERRED SELF Confirmed By: León Castelan
--- NOTE | 2024-06-20 12:42 | Cardiology Consultation ---
Date of Consultation June 20, 2024 Assessment & Plan (1) Syncope: (2) Non-ischemic cardiomyopathy: (3) Heart failure with improved ejection fraction (HFimpEF): (4) Atypical chest pain: Plan ASSESSMENT/PLAN: 1. Syncope: Based on laboratory data on presentation, likely due to hypovolemia/dehydration. He admits that he had not been eating or drinking much and his hemoglobin was concentrated and renal function abnormal. These values corrected with IV fluids. Recommend 2-week outpatient monitor if patient willing to evaluate for arrhythmia, although based on description and findings, likely dehydration. 2. Nonischemic cardiomyopathy: LV systolic function has normalized. Etiology in the past was felt to be due to significant alcohol use. 3. Heart failure with improved EF: He appears euvolemic and likely hypovolemic on presentation. BNP single digits. Continue outpatient regimen of Entresto, metoprolol succinate, spironolactone, SGLT2 inhibitor. 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 Does not require ICD for primary prevention. 4. Atrial flutter: Diagnosed in the past. Sinus rhythm here. Already on anticoagulation therapy for prior PE. Monitor renal function and blood counts. 5. Chest pain: Atypical. Chronic for many years and has had cardiac catheterization without significant CAD in 2021. Chest pain does not appear to be ischemic in nature. Defer to primary hospitalist service to further evaluate and treat. 6. Bright red blood per rectum: As per primary hospitalist service. 7. Disposition: Cardiology will sign off. He may benefit from psychiatric evaluation, for concerns of depression over his medical issues. Follow-up in the cardiology office with Dr. Dietz and in Heart failure program with Brandi Zayas PA-C. Patient care communicated with primary hospitalist, Dr. Gomes. Thank you for allowing me to participate in the care of your patient. Please call for any other questions or concerns. Sincerely, Harish Castelan M.D. History of Present Illness Reason for Consultation: "syncope, chest pains" Requesting Physician: Dr. Norton Attending Physician: Les Gomes MD History of Present Illness Mr. Day is a 44-year-old gentleman with a history significant for nonischemic cardiomyopathy, heart failure with reduced EF, VSD s/p open repair (1983 in [place]), alcohol abuse, pulmonary emboli, paroxysmal atrial flutter, type 2 diabetes, gastroparesis, hypertension, and dyslipidemia. His primary primary montessori teacher is Dr. Dietz, but he was last seen on 08/30/2022. He also followed in the heart failure program with Jolanta Zayas PA-C, last seen on 10/07/2022. He has since followed closely with his PCP through [facility] and has had repeat imaging in their system. He was admitted on 06/19/2024 after presenting with chest pain and headache. He was discharged earlier this month on 06/15/2024 with alcohol withdrawal, gastroparesis and mild DKA. When asked about his chest discomfort, it is a right sided pain that has been present his "whole life." Despite longstanding chest discomfort issues, he has no known coronary artery disease based on 05/18/2022 cardiac catheterization. The pain also radiates into his face and his head. He states that he is weak. He stated "I cannot function at all. Nothing I can do makes a difference. My life became a total shit show." He feels very weak and tired and he is always short of breath. While he was in triage, he had an episode of syncope. He states that he was near syncopal and had profuse diaphoresis. When asked if he had been eating and drinking, he stated "my stomach was not working" when he was trying to hydrate. When asked how long he had not been eating and drinking much, he did not give a clear answer. He rather stated there is "nothing I can do to make my life bett er." His blood pressure was low normal on presentation. He received IV fluids. He continues to have ongoing chest pain and headache. He reports bright red blood per rectum last week. He denies any recent hematuria. He denies edema. Review of systems: As above. Family history: Father with "same shit" that he is dealing with. Social history: He quit smoking approximately 20 years ago. Records indicate that he has consume significant amounts of alcohol (15 beers daily in the past) but he states that he has not been consuming alcohol recently. He did not quantify. He denies drug abuse. He is not . Has a girlfriend. No children. He was unaccompanied. Allergies Allergy/AdvReac Type Severity Reaction Status Date / Time Sulfa (Sulfonamide Allergy Intermediate ITCHY/HOT Verified 06/19/24 20:13 Antibiotics) metformin AdvReac Intermediate Diarrhea Verified 06/19/24 20:13 morphine AdvReac Intermediate Nausea Verified 06/19/24 20:13 semaglutide [From Ozempic] AdvReac Intermediate Hallucinati Verified 06/19/24 20:13 ng Home Medications Medication Instructions Recorded Confirmed Type atorvastatin 40 mg tablet 40 mg PO QAM 06/23/21 06/19/24 History ezetimibe 10 mg tablet 10 mg PO QAM 02/09/24 06/19/24 History fenofibrate nanocrystallized 145 145 mg PO QAM 02/09/24 06/19/24 History mg tablet furosemide 20 mg tablet 20 mg PO QAM 02/09/24 06/19/24 History gabapentin 300 mg capsule 300 mg PO TID 02/09/24 06/19/24 History insulin glargine 100 unit/mL (3 20 unit subcut QA 02/09/24 06/19/24 History mL) subcutaneous pen metoprolol succinate 50 mg 75 mg PO QAM 02/09/24 06/19/24 History tablet,extended release 24 hr sacubitril 24 mg-valsartan 26 mg 1 tab PO AMHS 02/09/24 06/19/24 History tablet (Entresto) spironolactone 25 mg tablet 25 mg PO QAM 02/09/24 06/19/24 History rivaroxaban 20 mg tablet (Xarelto) 20 mg PO DAILYBD 03/24/24 06/19/24 History promethazine 6.25 mg/5 mL oral 6.25 mg (5 mL) PO AC #240 mL 04/01/24 06/19/24 Rx syrup aprepitant 40 mg capsule 40 mg PO QAM 06/12/24 06/19/24 History cholecalciferol (vitamin D3) 1,250 1,250 mcg PO WK 06/12/24 06/19/24 History mcg (50,000 unit) capsule empagliflozin 10 mg tablet 10 mg PO QAM 06/12/24 06/19/24 History (Jardiance) magnesium oxide 400 mg PO DAILY 06/12/24 06/19/24 History metoclopramide HCl 5 mg tablet 5 mg PO TID 06/12/24 06/19/24 History pantoprazole 40 mg tablet,delayed 40 mg PO AMHS 06/12/24 06/19/24 History release triamcinolone acetonide 0.1 % 1 applic topical BID PRN Itching 06/12/24 06/19/24 History topical cream Problem List (Updated 06/20/24 @ 14:43 by León Castelan MD) Atypical chest pain Heart failure with improved ejection fraction (HFimpEF) Diaphoresis (Acute) Tachycardia (Acute) Acute dehydration (Acute) Weakness (Acute) BONILLA (acute kidney injury) (Acute) Syncope (Acute) Syncope and collapse Dehydration (Acute) High anion gap metabolic acidosis (Acute) DKA (diabetic ketoacidosis) (Acute) Alcohol withdrawal Esophagitis DKA (diabetic ketoacidosis) (Acute) Malnutrition Nausea & vomiting Constipation Weight loss Lactic acid acidosis Metabolic acidosis Intractable nausea and vomiting (Acute) BONILLA (acute kidney injury) (Acute) Deep vein thrombosis, lower left extremity Non-ischemic cardiomyopathy New onset of congestive heart failure (04/2022) Overweight (BMI 25.0-29.9) Alcohol abuse Pleural effusion, bilateral (Acute) Dyspnea (Acute) Right bundle branch block Vitamin D deficiency 8.9 in 06/2019 HLD (hyperlipidemia) TG 2049, TC 301 in 06/2019 T2DM (type 2 diabetes mellitus) HTN (hypertension) GERD (gastroesophageal reflux disease) Patient History Medical History Chronic wound HFrEF (heart failure with reduced ejection fraction) Pulmonary emboli (04/2022) Gastroparesis Hyperglycemic crisis in diabetes mellitus DKA (diabetic ketoacidosis) History of kidney stones Open trimalleolar fracture (2020) Dislocation of ankle, right, open (2020) Surgical History History of ankle surgery (2020) right ankle external fixator/I&D History of colonoscopy History of esophagogastroduodenoscopy (EGD) History of tooth extraction History of wisdom tooth extraction S/P knee surgery remove fluid off right knee History of heart surgery (1983) VSD- age 3---no issues since surgery, no primary montessori teacher Family History Father Cardiac disorder Mother No problems noted. 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 Alert. HEENT: Anicteric sclera. Neck: No JVD. No bruits. Normal carotid upstrokes bilaterally. Cardiac: Regular. Normal S1-S2. No murmurs, rubs, or gallops. Pulmonary: Clear to auscultation bilaterally without wheezes, rales, or rhonchi. Abdomen: Soft, nontender, nondistended, with normoactive bowel sounds. No bruits noted. Extremities: 2+ radial pulses bilaterally. 2+ posterior tibialis pulses bilaterally. No edema or cyanosis. Psychiatric: Flat affect. Chest: Nontender to palpation. Results & Data Vital Signs (Past 12 Hours) Vital Signs Temp Pulse Pulse Resp BP Pulse Ox O2 Del Method 06/20/24 10:53 36.6 C 83 14 106/72 96 Room Air 06/20/24 07:53 90 06/20/24 06:00 83 21 109/73 95 Room Air 06/20/24 03:00 91 H 16 105/72 96 Room Air Laboratory Results Laboratory Results - last 24 hr 06/19/24 06/19/24 06/19/24 18:20 18:57 19:24 WBC 10.33 RBC 7.07 H Hgb 20.2 H Hct 58.9 H MCV 83.3 MCH 28.6 MCHC 34.3 RDW Std Deviation 36.2 L RDW Coeff of Trevon 12.6 Plt Count 215 MPV 12.7 H Immature Gran % (Auto) 0.4 Neut % (Auto) 60.8 Lymph % (Auto) 29.4 [place] % (Auto) 7.3 Eos % (Auto) 1.5 Baso % (Auto) 0.6 Neut # (Auto) 6.29 Lymph # (Auto) 3.04 [place] # (Auto) 0.75 H Eos # (Auto) 0.15 Baso # (Auto) 0.06 Immature Gran # (Auto) 0.04 PT Cancelled 11.3 INR Cancelled 1.0 APTT Cancelled 22 PTT Ratio Cancelled 0.8 Sodium TNP 137 Potassium TNP 2.9 L Chloride 94 L Carbon Dioxide 20 L Anion Gap TNP BUN 16 Creatinine 1.61 H Est Cr Clr Drug Dosing 60.4 Est GFR ( Amer) 59.0 Est GFR (Non-Af Amer) 50.9 BUN/Creatinine Ratio 9.9 L Glucose 191 H POC Glucose 178 H Estimat Average Glucose Hemoglobin A1c Calcium 10.0 Magnesium 1.8 Total Bilirubin 0.8 AST TNP 18 ALT 18 Alkaline Phosphatase 93 Troponin I High Sens 5.3 B-Natriuretic Peptide 7 Total Protein 8.3 Albumin 5.2 H Globulin 3.1 Albumin/Globulin Ratio 1.7 Lipase 35 06/19/24 06/20/24 06/20/24 23:42 05:50 05:51 WBC 7.07 RBC 5.68 Hgb 16.0 D Hct 47.0 MCV 82.7 MCH 28.2 MCHC 34.0 RDW Std Deviation 36.0 L RDW Coeff of Trevon 11.9 Plt Count 181 MPV 12.2 Immature Gran % (Auto) 0.3 Neut % (Auto) 56.8 Lymph % (Auto) 32.0 [place] % (Auto) 8.6 Eos % (Auto) 1.7 Baso % (Auto) 0.6 Neut # (Auto) 4.02 Lymph # (Auto) 2.26 [place] # (Auto) 0.61 H Eos # (Auto) 0.12 Baso # (Auto) 0.04 Immature Gran # (Auto) 0.02 PT INR APTT PTT Ratio Sodium 137 Potassium 3.8 D Chloride 100 Carbon Dioxide 25 Anion Gap 12 H BUN 17 Creatinine 1.28 D Est Cr Clr Drug Dosing 77.1 Est GFR ( Amer) 77.8 Est GFR (Non-Af Amer) 67.1 BUN/Creatinine Ratio 13.3 Glucose 98 POC Glucose 150 H 94 Estimat Average Glucose 183 Hemoglobin A1c 8.0 H Calcium 8.4 L Magnesium 2.0 Total Bilirubin AST ALT Alkaline Phosphatase Troponin I High Sens B-Natriuretic Peptide Total Protein Albumin Globulin Albumin/Globulin Ratio Lipase Diagnostic Findings CT abdomen/pelvis 06/12/2024: No acute findings per radiology. CT chest 06/12/2024: No acute findings per radiology. Labs reviewed and notable for initially elevated hemoglobin but since normalized, hypokalemia which is since normalized, abnormal renal function, which has since improved, elevated A1c, normal magnesium level, normal transaminase levels, normal high-sensitivity troponin, normal BNP (7). History and physical report reviewed. Echo 06/13/2024: Low normal LV systolic function. EF 50 to 55%. No significant valvular abnormalities. Echo images personally reviewed and notable for improved LV systolic function from previous. ECGs personally reviewed: ECG 820 06/15/1807: Sinus tachycardia 116 bpm. RBBB. Possible septal infarct. Possible inferior infarct. ECG 06/20/2024 8:16 AM: Sinus rhythm with PVC 90 bpm. RBBB. Inferior infarct. Cardiac cath 05/18/2022: No significant CAD. Medications Administered Current Inpatient Medications Acetaminophen (Acetaminophen 325 Mg Tab) 650 mg PO Q4H PRN PRN Reason: Pain or Fever Stop: 07/19/24 22:02 Aprepitant (Aprepitant 40 Mg Cap) 40 mg PO QAM [facility] Stop: 07/20/24 08:59 Last Admin: 06/20/24 08:27 Dose: 40 mg Atorvastatin Calcium (Atorvastatin 40 Mg Tab) 40 mg PO QAM [facility] Stop: 07/20/24 08:59 Last Admin: 06/20/24 08:30 Dose: 40 mg Dextrose (Dextrose 50% 50 Ml Syringe) 25 - 50 ml IV UD PRN; Protocol PRN Reason: Hypoglycemia Protocol Stop: 07/19/24 22:02 Ezetimibe (Ezetimibe 10 Mg Tab) 10 mg PO QAM [facility] Stop: 07/20/24 08:59 Last Admin: 06/20/24 08:31 Dose: 10 mg Empagliflozin (Empagliflozin 10 Mg Tab) 10 mg PO QAM [facility] Stop: 07/20/24 08:59 Last Admin: 06/20/24 08:30 Dose: 10 mg Fenofibrate (Fenofibrate Nanocrystallized 145 Mg Tablet) 145 mg PO QAM [facility] Stop: 07/20/24 08:59 Last Admin: 06/20/24 08:30 Dose: 145 mg Gabapentin (Gabapentin 300 Mg Cap) 300 mg PO TID IVAN Stop: 07/19/24 22:02 Last Admin: 06/20/24 08:29 Dose: 300 mg Glucagon (Glucagon For Inj 1 Mg Vial) 1 mg SQ UD PRN; Protocol PRN Reason: Hypoglycemia Protocol Stop: 07/19/24 22:02 Glucose (Glucose 40% Gel 15 Gm Tube) 15 - 30 gm PO UD PRN; Protocol PRN Reason: Hypoglycemia Protocol Stop: 07/19/24 22:02 Glucose (Glucose 10 Tab/Tube) 4 - 8 tab PO UD PRN; Protocol PRN Reason: Hypoglycemia Treatment Stop: 07/19/24 22:02 Potassium Chloride/Sodium Chloride (Normal Saline W/20 Meq Kcl) 20 meq in 1,000 mls @ 80 mls/hr IV .[id number] [facility] Stop: 06/20/24 23:14 Last Admin: 06/20/24 11:31 Dose: 80 mls/hr Insulin Aspart (Insulin Aspart Per Unit Charge) 0 units SC Q6H [facility] Stop: 07/20/24 00:00 Last Admin: 06/20/24 11:14 Dose: Not Given Magnesium Oxide (Magnesium Oxide 400 Mg Tab) 400 mg PO DAILY [facility] Stop: 07/20/24 08:59 Last Admin: 06/20/24 08:29 Dose: 400 mg Metoclopramide HCl (Metoclopramide Hcl 5 Mg Tablet) 5 mg PO TID IVAN Stop: 07/19/24 22:02 Last Admin: 06/20/24 08:29 Dose: 5 mg Metoprolol Succinate (Metoprolol Succ 25mg Ext Rel Tab) 75 mg PO QAM [facility] Stop: 07/20/24 08:59 Last Admin: 06/20/24 08:28 Dose: 75 mg Miscellaneous (Carbohydrates For Hypoglycemia ) 15 - 30 gm PO UD PRN PRN Reason: Hypoglycemia Protocol Stop: 07/19/24 22:02 Nitroglycerin (Nitroglycerin Sl 0.4 Mg/Tab Tab) 0.4 mg SL Q5M PRN PRN Reason: Chest Pain Stop: 07/19/24 22:02 Pantoprazole Sodium (Pantoprazole 40 Mg Tab) 40 mg PO AMHS [facility] Stop: 07/19/24 22:02 Last Admin: 06/20/24 08:27 Dose: 40 mg Polyethylene Glycol (Polyethylene (Miralax) 17 Gm Pack) 17 gm PO DAILY PRN PRN Reason: Constipation Stop: 07/19/24 22:02 Promethazine HCl (Promethazine Hcl Syrup 6.25 Mg/5 Ml) 6.25 mg PO AC IVAN Stop: 07/20/24 07:29 Last Admin: 06/20/24 11:33 Dose: 6.25 mg Rivaroxaban (Rivaroxaban 20 Mg Tab) 20 mg PO QDD [facility] Stop: 07/20/24 16:29 Triamcinolone Acetonide (Triamcinolone Acet 0.1% Cr 15 Gm Tube) 1 appln TOP BID PRN PRN Reason: Itching Stop: 07/19/24 22:02 PG Care Time/CCT Total # of Minutes Spent Total Time Spent with Patient: Total time spent is greater than 50% in coordination of care (as documented) at patient's floor/unit and/or counseling patient: Coding Level of Care Code 62399 INT INP/OBS CARE 375MIN Diagnoses Syncope R55 Syncope type: unspecified Non-ischemic cardiomyopathy I42.8 Heart failure with improved ejection fraction (HFimpEF) I50.32 Atypical chest pain R07.89 (1) Syncope Syncope type: unspecified Qualified Code(s): R55 - Syncope and collapse
[2024-06-20] MEDS: RIVAROXABAN 20 MG TAB PO SCH (15:46)
[2024-06-21] MEDS: MELATONIN 3 MG TAB PO PRN (01:28)
[2024-06-21] MEDS: MELATONIN 3 MG TAB PO ONE (01:30)
[2024-06-21] MEDS: ACETAMINOPHEN 325 MG TAB PO PRN (08:42)
[2024-06-21] MEDS: NITROGLYCERIN SL 0.4 MG/TAB TAB SL PRN (08:42)
[2024-06-21 09:42] LABS: Calcium 8.8 mg/dl (8.6-10.3); Creatinine Clr Calc Pharmacy 70.1 ml/min; Est GFR (African American) 69.8 ml/min; Est GFR (Non-African American) 60.3 ml/min; Potassium 4.1 mmol/L (3.5-5.1)
[2024-06-21] MEDS: INSULIN ASPART PER UNIT CHARGE SC SCH (09:44)
[2024-06-21 10:33] VITALS: BP 119/76; RESP 18; TEMP 97.9; O2SAT 97
--- NOTE | 2024-06-21 10:34 | Hospitalist Progress Note ---
Date of Service June 21, 2024 Assessment & Plan (1) Syncope and collapse: Plan: 44-year-old male with past medical history significant for type 2 diabetes, hypertriglycerides, history of heart failure with reduced ejection fraction, history of acute pulmonary embolism, hypertension, gastroparesis, GERD, proteinuria, neuropathy, history of alcohol abuse who was recently in the hospital for possible gastroparesis flareup and mild DKA and new onset a flutter and was discharge few days ago comes back because ongoing chest pains, and abdominal pains and in the ER in triage had a syncopal episode. Syncope Likely due to hypotension/hypovolemia Patient presents with dizziness and episode of syncope Reports that he took extra dose of Entresto recently to"decrease his heart rate" Blood pressure on the low side on admission Patient was evaluated by cardiology. Chest pain was not thought secondary to cardiac reason. Patient did not have any recurrence of chest pain. His blood pressure remained stable throughout the hospitalization. At discharge, patient was advised to decrease Entresto to half tablet twice a day. He was also recommended to use Lasix only as needed. Spironolactone was also discontinued. 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 His creatinine was 1.6 on admission; he received IV fluids and it trended down to 1.4. Please note the above document was generated using voice recognition software. It may contain grammatical, syntax or spelling errors. Any formal questions or concerns about the content, text or information contained within the body of this dictation should be directly addressed to the provider for clarification Admission and Anticipated Discharge Date Admission Date: June 19, 2024 Subjective Patient seen and examined at bedside. Comfortable; not in distress. Denies fever, chills, chest pain, shortness of breath, abdominal pain or urinary symptoms. No significant overnight events Review of Systems Review of Systems: All systems reviewed & are unremarkable except as noted in Subjective Physical Exam Physical Exam: Constitutional: WD/WN, vitals as above, NAD, sitting up in bed, pleasant, conversing easily Respiratory: normal respiratory effort, lungs clear to auscultation, no wheeze, rales, rhonchi. Normal insp/exp effort, no accessory muscle use Cardiovascular: RRR, no murmur, no edema Vessels: no JVD or carotid bruit Chest: normal inspection of chest Abdomen: normal bowel sounds, soft, nontender, no hepatosplenomegaly Musculoskeletal: no cyanosis or clubbing, extremities motor strength 5/5 Skin: no rashes, warm and dry normal turgor Neurologic: PERRL, EOMI, accommodation nl, no face palsy, no dysarthria CN's II- XI intact bilaterally and moves all extremities Psychiatric: A+Ox3, euthymic affect Results & Data Results & Data Vital Signs (Past 12 Hours) Vital Signs Temp Pulse Resp BP Pulse Ox O2 Del Method 06/21/24 07:18 69 19 113/80 98 Room Air 06/21/24 03:29 36.4 C L 79 16 104/64 96 Room Air 06/20/24 23:24 36.6 C 75 17 99/66 L 97 Room Air
[2024-06-21 15:34] VITALS: PULSE 75
--- NOTE | 2024-06-21 16:02 | Discharge Summary ---
Date of Service June 21, 2024 Admission HPI Per Admitting Provider 44-year-old male with past medical history significant for type 2 diabetes, hypertriglycerides, history of heart failure with reduced ejection fraction, history of acute pulmonary embolism, hypertension, gastroparesis, GERD, proteinuria, neuropathy, history of alcohol abuse who was recently in the hospital for possible gastroparesis flareup and mild DKA and new onset a flutter and was discharge few days ago comes back because ongoing chest pains, and abdominal pains and in the ER in triage had a syncopal episode. Patient states having a lot of chest pains which is chronic but they have been more severe at this time radiating to up to his head. A lot of abdominal discomfort. Constipated. He states that he is supposed to get colonoscopy in August. He states his stools are small in size. When he is constipated sometimes he notes blood in the stools. Because of his symptoms is not eating /drinking much. Sometimes gets blurred visions. No runny nose. No earache. No cough. No fevers. States sometimes micturating okay and sometimes not. Not able to ambulate because of weakness. On and off dizziness. In the ER in the triage had an episode of syncope and he was held before falling. He does not remember the episode. His blood pressure was soft systolic in 90s. Received fluid bolus and blood pressure improved. Currently hemodynamics are okay. Patient states he did not drink alcohol for last 4 weeks. States he did not use cannabis, for last 2 weeks. Past medical history. As mentioned above Past surgical history. Apparent surgery for 2 holes in ventral septum at age 3. Colonoscopy and EGD. EGD with biopsy. EGD with endoscopic ultrasound. Social history. Quit smoking 2017. Smoked 1 pack a day for 40 years. History of alcohol use. History of marijuana use. Family history. No family history on file. Admission Exam Per Admitting Provider General- Not in acute distress. Head- atraumatic Eyes- PERRL. ENT- oropharynx clear Neck- supple, no JVD. Lungs- clear to auscultation no wheezing or crackles. Heart- regular rhythm; no murmur, no gallop. Abdomen- normal bowel sounds, soft, nontender, no distension Extremities- no pretibial edema, no erythema seen Neuro- alert, oriented PERRL, no facial palsy; no dysarthria; moves extremities Principal Diagnosis Syncope likely due to hypotension/hypovolemia Discharge Exam Constitutional: WD/WN, vitals as above, NAD, sitting up in bed, pleasant, conversing easily Respiratory: normal respiratory effort, lungs clear to auscultation, no wheeze, rales, rhonchi. Normal insp/exp effort, no accessory muscle use Cardiovascular: RRR, no murmur, no edema Vessels: no JVD or carotid bruit Chest: normal inspection of chest Abdomen: normal bowel sounds, soft, nontender, no hepatosplenomegaly Musculoskeletal: no cyanosis or clubbing, extremities motor strength 5/5 Skin: no rashes, warm and dry normal turgor Neurologic: PERRL, EOMI, accommodation nl, no face palsy, no dysarthria CN's II- XI intact bilaterally and moves all extremities Psychiatric: A+Ox3, euthymic affect Discharge Data Allergies Allergy/AdvReac Type Severity Reaction Status Date / Time Sulfa (Sulfonamide Allergy Intermediate ITCHY/HOT Verified 06/19/24 20:13 Antibiotics) metformin AdvReac Intermediate Diarrhea Verified 06/19/24 20:13 morphine AdvReac Intermediate Nausea Verified 06/19/24 20:13 semaglutide [From Ozempic] AdvReac Intermediate Hallucinati Verified 06/19/24 20:13 ng Consultations 06/19/24 19:55 ED Decision to Admit Stat 06/20/24 08:00 Consult Cardiology Routine Hospital Course (1) Syncope and collapse: 44-year-old male with past medical history significant for type 2 diabetes, hypertriglycerides, history of heart failure with reduced ejection fraction, history of acute pulmonary embolism, hypertension, gastroparesis, GERD, proteinuria, neuropathy, history of alcohol abuse who was recently in the hospital for possible gastroparesis flareup and mild DKA and new onset a flutter and was discharge few days ago comes back because ongoing chest pains, and abdominal pains and in the ER in triage had a syncopal episode. Syncope Likely due to hypotension/hypovolemia Patient presents with dizziness and episode of syncope Reports that he took extra dose of Entresto recently to"decrease his heart rate" Blood pressure on the low side on admission Patient was evaluated by cardiology. Chest pain was not thought secondary to cardiac reason. Patient did not have any recurrence of chest pain. His blood pressure remained stable throughout the hospitalization. At discharge, patient was advised to decrease Entresto to half tablet twice a day. He was also recommended to use Lasix only as needed. Spironolactone was also discontinued. 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 His creatinine was 1.6 on admission; he received IV fluids and it trended down to 1.4. Orthostatics vitals were within normal limits. Patient didn't have dizziness at discharge. Please note the above document was generated using voice recognition software. It may contain grammatical, syntax or spelling errors. Any formal questions or concerns about the content, text or information contained within the body of this dictation should be directly addressed to the provider for clarification Total Time Total Time Spent Total Time Spent (In Minutes): 45 Total Time Includes: Examination of the Patient, Discharge Planning, Medication Reconciliation, Communication With Other Providers and Other Discharge Plan Discharge Items Patient Disposition: Home - Self-Care Reason For Visit: SYNCOPE, HYPOKALEMIA, BONILLA Discharge Diagnosis: Hypertension BONILLA Condition on Discharge: Fair Activity: Resume your previous activity Non-emergency contact: Primary Care Provider Call non-emergency contact if: you have any medication questions and your symptoms worsen Follow-up/Referrals: Dany Caruso MD [Primary Care Provider] - (Date & Time 06/28/2024 9:20 AM Provider Dany Caruso MD Department Family Medicine [facility] ) Diet: Regular Addtl Attending Provider Instructions: You were admitted to the hospital due to syncopal episode. The likely cause for the episode is dehydration. Following changes have been made to your medication regimen: 1) Decrease Entresto to half tablet twice a day. 2) Do not take Lasix every day. Take it on as-needed basis if you notice weight gain of greater than 3 pounds or bilateral lower extremity edema 3) Stop taking spironolactone Please follow-up with primary care doctor. An appointment will be made for you. Please follow-up with cardiology Pending Studies at Discharge: No Stand-Alone Forms: [employer] vascular solution, Smoking Cessation Medications and DC Order Prescriptions: Continued atorvastatin 40 mg tablet 40 mg PO QAM metoprolol succinate 50 mg tablet extended release 24 hr 75 mg PO QAM gabapentin 300 mg capsule 300 mg PO TID ezetimibe 10 mg tablet 10 mg PO QAM fenofibrate nanocrystallized 145 mg tablet 145 mg PO QAM insulin glargine 100 unit/mL (3 mL) insulin pen 20 unit SUBCUT QAM Xarelto 20 mg tablet 20 mg PO DAILYBD promethazine 6.25 mg/5 mL Syrup 6.25 mg PO AC Qty: 240 0RF pantoprazole 40 mg tablet,delayed release (DR/EC) 40 mg PO AMHS aprepitant 40 mg Capsule 40 mg PO QAM cholecalciferol (vitamin D3) 1,250 mcg (50,000 unit) capsule 1,250 mcg PO WK Rx Instructions: FRIDAYS Jardiance 10 mg tablet 10 mg PO QAM metoclopramide HCl 5 mg tablet 5 mg PO TID Rx Instructions: take 1 tablet in the morning,noon and before bed triamcinolone acetonide 0.1 % cream 1 applic TOPICAL BID PRN (Reason: Itching) magnesium oxide 400 mg magnesium Tablet 400 mg PO DAILY Changed furosemide 20 mg tablet 20 mg PO QAM PRN (Reason: edema) Qty: 0 0RF Rx Instructions: Take 20mg by mouth once in the morning, may take an extra 20mg if weight gain is 3lbs in 1 day or 5lbs in 1 week Entresto 24-26 mg tablet 0.5 tab PO AMHS Qty: 0 0RF Discontinued spironolactone 25 mg tablet 25 mg PO QAM Discharge Orders: Discharge Order (Routine); Ordered 06/21/24 Ordered By: Les Tam/Other Patient Handouts: Managing Type 2 Diabetes Admission Data Admit Date/Time: 06/19/24 20:54 Attending Provider: Les Gomes Admit Provider: Tadeo Norton Primary Care Provider: Dany Caruso Other Providers: Tadeo Norton; Yassine Pisano; Les Dietz; Candido Tobar; Isreal Bronson; Kenrick Ruiz; Preet Rose Jr; León Castelan; Sabrina Amador; Karina Parkinson; Edward Benjamin; Edward Mcdonald; Shahab Wood; Jolanta Zayas; Brijesh Flores; Diane Otero; Joselito Becerra; Venkatesh Ospina; Fransico Melchor; Ayo Poe Other Interventions: Discharge Summary Assessment (RN) Last Done: 06/21/24 15:33
--- NOTE | 2024-06-21 21:57 | Electrocardiogram Report ---
Test Reason : Blood Pressure : */* mmHG Vent. Rate : 74 BPM Atrial Rate : 74 BPM P-R Int : 216 ms QRS Dur : 154 ms QT Int : 460 ms P-R-T Axes : 51 21 7 degrees QTcB Int : 510 ms Sinus rhythm with 1st degree A-V block Right bundle branch block Inferior infarct (cited on or before 18-Nov-2023) Abnormal ECG When compared with ECG of 20-Jun-2024 08:16, Premature ventricular complexes are no longer Present Confirmed by León Castelan ([id number]) on 06/21/2024 9:57:23 PM Referred By: REFERRED SELF Confirmed By: León Castelan
== END 2024-06-21 17:15 | disposition home or self-care (01) | DRG 315 ==
LOC: ED 17:49 → EDINP 20:54 → 4W 22:02

== ENCOUNTER 2024-09-01 18:29 | Inpatient (IN) ==
--- NOTE | 2024-09-01 18:39 | Emergency Department Note ---
Impression & Plan DKA (diabetic ketoacidosis), Metabolic acidosis, Nausea & vomiting, Acute dehydration, Atrial fibrillation with rapid ventricular response ED Provider Note NAME: DAVID BEAN AGE: 44 SEX: M : 1980 ARRIVES VIA: Ambulance INFORMANT: Patient, EMS ED PROVIDER(S): Candido Palomo DO CHIEF COMPLAINT: Nausea vomiting HPI: The patient is a 44-year-old male who presented to the emergency department for nausea vomiting. The patient states he said symptoms that began this afternoon. He has had severe symptoms including chest pain abdominal pain nausea and vomiting. He denies having any hematemesis. The patient states she has had similar episodes in the past. The patient has been compliant with outpatient medication regimen which includes insulin. He also takes Xarelto. He has a history of venous Robamol of disease. I did receive a prehospital notification about the patient. The patient did receive Zofran prior to arrival. ROS: See above HPI for pertinent positives & negatives. A total of 10 systems reviewed and were otherwise negative. PAST MEDICAL HISTORY: See Below PAST SURGICAL HISTORY: See Below FAMILY HISTORY: See Below SOCIAL HISTORY: See Below HOME MEDICATIONS: See Below ALLERGIES: See Below VITALS: See Below PHYSICAL EXAMINATION: GENERAL: The patient was awake and alert. The patient was very anxious and appears to be uncomfortable. EYES: The conjunctivae are clear. The pupils are round and reactive. EARS, NOSE, MOUTH AND THROAT: The nose is without any evidence of any deformity. Mucous membranes are moist. Tongue is midline. NECK: The neck is nontender and supple. RESPIRATORY: Normal respiratory effort is noted there is no evidence of wheezing rhonchi or rales CARDIOVASCULAR: Tachycardiac and irregular heart sounds were noted to auscultation. There is no definite murmur. GASTROINTESTINAL: Soft and nondistended. There is diffuse tenderness to palpation but no guarding or rigidity. MUSCULOSKELETAL/EXTREMITIES: There is no evidence of gross deformity full range of motion is noted in the hips and shoulders. SKIN: There is no obvious evidence of any rash. There are no petechiae, pallor or cyanosis noted. NEUROLOGIC: Patient is awake alert and oriented x3 strength is symmetric patellar reflexes are 2+ bilaterally MEDICAL DECISION MAKING: The patient is a 44-year-old male who presented to the emergency department for an evaluation of nausea vomiting. The patient has a history of diabetes. He also has a history of intractable vomiting in the past. The patient was found to be in DKA. The patient was treated with IV fluids IV antiemetics and IV pain medication. He was also placed onto a insulin drip. I discussed patient's laboratory and radiographic studies with him. He was initially very tachycardic. I thought this was consistent with sinus tachycardia. It could also be consistent with a rapid atrial fibrillation. Once he was treated with the above noted treatment his heart rate did improve and he seemed to be in sinus rhythm. The patient was also treated with IV antibiotics for possible infection especially given his elevated white blood cell count. I [facility] the patient[facility] have agreed to evaluate the patient in the emergency department for further management and disc addition. The patient does take blood thinners. Triage Nursing notes reviewed. Prior medical records reviewed Vital Signs: reviewed and remarkable for tachycardia. Differential diagnosis: Gastroenteritis, food borne illness, infections, appendicitis, diverticulitis, inflammatory bowel disease, obstruction, GI bleed, biliary pathology, volvulus, as well as other pathologies. ER treatment provided: See below Diagnostics interpretations: EKG was obtained in the emergency department. My interpretation is sinus tachycardia at 147 bpm. There were no PVCs noted. Right bundle branch block pattern was favored. This was compared to a tracing from June 21, 2024. There is an increase in the rate otherwise no significant changes were noted. A second EKG was obtained in the emergency department. My interpretation is wide-complex tachycardia at 173 bpm. There were no PVCs noted. This appears similar to the initial EKG. It is difficult to determine if this represents atrial fibrillation with RVR versus sinus tachycardia with the underlying right bundle branch block. Prehospital EKG was also reviewed. My interpretation is sinus tachycardia at 153 bpm. Right bundle branch block pattern was noted. This compares similar to the EKG obtained in the emergency department. Cardiac Monitoring: An order was placed for continuous cardiac monitoring. The monitor shows a rate of 130 bpm with sinus tachycardia. Laboratory studies: As stated above and show below. Imaging studies: See below. Radiographic imaging was reviewed by myself Consultation(s): I discussed this case with Dr. Bauer who [facility] ED COURSE: Procedures: none Critical Care: I have personally spent greater than 55 minutes of critical care time in the direct management of this patient. This includes bedside care, interpretation of diagnostic studies, and testing, discussion with consultants, patient, and family members, and other required patient management activities. This 55 minutes is in excess of all separately billable procedures. Past Med/Surg History Problem List (Updated 09/01/24 @ 22:47 by Candido Palomo DO) Atrial fibrillation with rapid ventricular response (Acute) Acute dehydration (Acute) Nausea & vomiting (Acute) Metabolic acidosis (Acute) DKA (diabetic ketoacidosis) (Acute) Atypical chest pain Heart failure with improved ejection fraction (HFimpEF) Diaphoresis (Acute) Tachycardia (Acute) Acute dehydration (Acute) Weakness (Acute) BONILLA (acute kidney injury) (Acute) Syncope (Acute) Syncope and collapse Dehydration (Acute) High anion gap metabolic acidosis (Acute) DKA (diabetic ketoacidosis) (Acute) Alcohol withdrawal Esophagitis Malnutrition Nausea & vomiting Constipation Weight loss Lactic acid acidosis Metabolic acidosis Intractable nausea and vomiting (Acute) BONILLA (acute kidney injury) (Acute) Deep vein thrombosis, lower left extremity Non-ischemic cardiomyopathy New onset of congestive heart failure (04/2022) Dyspnea (Acute) Pleural effusion, bilateral (Acute) Right bundle branch block Vitamin D deficiency 8.9 in 06/2019 HLD (hyperlipidemia) TG 2049, TC 301 in 06/2019 T2DM (type 2 diabetes mellitus) Alcohol abuse Overweight (BMI 25.0-29.9) HTN (hypertension) GERD (gastroesophageal reflux disease) Medical History Diabetes Non-ischemic cardiomyopathy denies Pleural effusion current problem "hear failure causes directly" - monitored by pcp. Denies change from baseline. Right bundle branch block pt doesn't know, reports: "not right now " when asked about hx of irregular heart beats. GERD (gastroesophageal reflux disease) pt not sure Hyperlipidemia HTN (hypertension) Poor historian History of renal failure yrs and yrs ago, pt doesn't know details surrounding. History of chest pain (05/2024) May 2024 pt reports felt like heart failure, not dx with anything. Admitted April or May 2024 [facility] for dka ?. Pt poor historian. No re occurence of chest pain. History of congestive heart failure dx age 3 following heart sx. "doesn't ever go away" - monitored by pcp. History of DVT (deep vein thrombosis) early 2023. History of pulmonary embolism 04/2022 History of diabetic ketoacidosis April or May 2024 - [place]. Pt poor historian. 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 Aunt Cardiac disorder Other No family history of adverse response to anesthesia Denies family history of Ovarian cancer Prostate cancer Myocardial infarction Breast cancer Colorectal cancer Social History Smoking Status: Never smoker Age Started Using Tobacco: 16; Age Quit Using Tobacco: 26; packs per day: 0.5; Second Hand Exposure: No; Do You Dip or Chew Tobacco: No; Hx Alcohol Use: No Hx Substance Use: No Preferred Language: Maori Communication Ability: Effective Communication Ability Comment: poor historian Visual Impairment: No Limitations Hearing Ability: Normal Range Rider Required: No Beliefs That Will Affect Care: None marital status: Single Current Living Situation: Significant Other Current Living Situation Comment: stay with girlfriend current occupational status: employed current occupation: [employer] How many Children do You have: 0 Feels Safe at Home: Yes Dental Care, Regularly: Yes Physical Activity Frequency: 3-4 Times per Week Assistive Devices: Walker Allergies Allergies Allergy/AdvReac Type Severity Reaction Status Date / Time semaglutide [From Ozempic] Allergy Unknown Hallucinati Verified 08/08/24 08:20 ng Sulfa (Sulfonamide Allergy Unknown ITCHY/HOT Verified 08/08/24 08:20 Antibiotics) metformin AdvReac Unknown Diarrhea Verified 08/08/24 08:20 morphine AdvReac Unknown Nausea Verified 08/08/24 08:20 Home Meds Home Medications Medication Instructions Recorded Confirmed atorvastatin 40 mg tablet 40 mg PO QAM 06/23/21 09/01/24 ezetimibe 10 mg tablet 10 mg PO QAM 02/09/24 09/01/24 fenofibrate nanocrystallized 145 145 mg PO QAM 02/09/24 09/01/24 mg tablet gabapentin 300 mg capsule 300 mg PO TID 02/09/24 09/01/24 insulin glargine 100 unit/mL (3 20 unit subcut QAM 02/09/24 09/01/24 mL) subcutaneous pen metoprolol succinate 50 mg 75 mg PO QAM 02/09/24 09/01/24 tablet,extended release 24 hr rivaroxaban 20 mg tablet (Xarelto) 20 mg PO QDD 03/24/24 09/01/24 cholecalciferol (vitamin D3) 1,250 1,250 mcg PO WK 06/12/24 09/01/24 mcg (50,000 unit) capsule empagliflozin 10 mg tablet 10 mg PO QAM 06/12/24 09/01/24 (Jardiance) pantoprazole 40 mg tablet,delayed 40 mg PO BID 06/12/24 09/01/24 release triamcinolone acetonide 0.1 % 1 applic topical BID PRN Itching 06/12/24 09/01/24 topical cream furosemide 20 mg tablet 20 mg PO UD PRN edema 07/30/24 09/01/24 promethazine 6.25 mg/5 mL oral 6.25 mg PO AC gastroparesis 07/30/24 09/01/24 syrup sacubitril 24 mg-valsartan 26 mg 0.5 tab PO BID 07/30/24 09/01/24 tablet (Entresto) duloxetine 30 mg capsule,delayed 30 mg PO QAM 09/01/24 09/01/24 release linaclotide 145 mcg capsule 145 mcg PO QDB 09/01/24 09/01/24 magnesium citrate 120 ml PO DAILY PRN severe 09/01/24 09/01/24 constipation metoclopramide HCl 10 mg tablet 10 mg PO TID 09/01/24 09/01/24 spironolactone 25 mg tablet 25 mg PO QAM 09/01/24 09/01/24 trazodone 50 mg tablet 50 mg PO HS 09/01/24 09/01/24 Results & Data (ED) Vital Signs Vital Signs - 24 hr 09/01/24 18:32 09/01/24 18:39 09/01/24 18:51 Pulse Rate 132 H 99 H 171 H Pulse Rate [Apical] Pulse Rate from SpO2 Sensor 150 H Pulse Rhythm Regular Pulse Strength Normal Respiratory Rate 20 24 Respiratory Effort / Characteristics Non-Labored Spontaneous Respiratory Depth Normal Blood Pressure 109/84 Blood Pressure [Left Arm] Blood Pressure Mean 92 Blood Pressure Mean [Left Arm] Pulse Oximetry 99 99 Oxygen Delivery Method Room Air Sepsis Recent Fever Within 48 Hours No Sepsis New/Unexplained Change in Mental Status N/A Sepsis Action Taken by Nursing No Action Required 09/01/24 19:11 09/01/24 19:12 09/01/24 19:13 Pulse Rate 126 H 126 H Pulse Rate [Apical] Pulse Rate from SpO2 Sensor 126 H Pulse Rhythm Pulse Strength Respiratory Rate 21 Respiratory Effort / Characteristics Respiratory Depth Blood Pressure Blood Pressure [Left Arm] Blood Pressure Mean Blood Pressure Mean [Left Arm] Pulse Oximetry 96 Oxygen Delivery Method Room Air Sepsis Recent Fever Within 48 Hours Sepsis New/Unexplained Change in Mental Status Sepsis Action Taken by Nursing 09/01/24 19:30 09/01/24 19:36 09/01/24 20:00 Pulse Rate 122 H 116 H Pulse Rate [Apical] 126 H Pulse Rate from SpO2 Sensor 122 H 117 H Pulse Rhythm Pulse Strength Respiratory Rate 24 23 21 Respiratory Effort / Characteristics Respiratory Depth Blood Pressure Blood Pressure [Left Arm] 116/70 Blood Pressure Mean Blood Pressure Mean [Left Arm] 85 Pulse Oximetry 96 97 97 Oxygen Delivery Method Room Air Sepsis Recent Fever Within 48 Hours Sepsis New/Unexplained Change in Mental Status Sepsis Action Taken by Nursing 09/01/24 20:30 09/01/24 20:51 09/01/24 21:00 Pulse Rate 167 H 157 H Pulse Rate [Apical] 108 H Pulse Rate from SpO2 Sensor 123 H Pulse Rhythm Pulse Strength Respiratory Rate 15 18 Respiratory Effort / Characteristics Respiratory Depth Blood Pressure 154/129 H Blood Pressure [Left Arm] 124/102 H Blood Pressure Mean Blood Pressure Mean [Left Arm] 109 Pulse Oximetry 100 99 Oxygen Delivery Method Room Air Sepsis Recent Fever Within 48 Hours Sepsis New/Unexplained Change in Mental Status Sepsis Action Taken by Nursing 09/01/24 21:03 09/01/24 21:10 09/01/24 21:51 Pulse Rate 120 H 122 H 118 H Pulse Rate [Apical] Pulse Rate from SpO2 Sensor 104 H 117 H Pulse Rhythm Pulse Strength Respiratory Rate 21 20 Respiratory Effort / Characteristics Respiratory Depth Blood Pressure 124/102 H Blood Pressure [Left Arm] Blood Pressure Mean Blood Pressure Mean [Left Arm] Pulse Oximetry 95 94 Oxygen Delivery Method Sepsis Recent Fever Within 48 Hours Sepsis New/Unexplained Change in Mental Status Sepsis Action Taken by Nursing 09/01/24 22:03 09/01/24 22:48 Pulse Rate 126 H 128 H Pulse Rate [Apical] Pulse Rate from SpO2 Sensor 128 H 117 H Pulse Rhythm Pulse Strength Respiratory Rate 19 21 Respiratory Effort / Characteristics Respiratory Depth Blood Pressure Blood Pressure [Left Arm] Blood Pressure Mean Blood Pressure Mean [Left Arm] Pulse Oximetry 96 95 Oxygen Delivery Method Sepsis Recent Fever Within 48 Hours Sepsis New/Unexplained Change in Mental Status Sepsis Action Taken by Residential Medications Current Medication List: was personally reviewed by me Laboratory Data Attestation: I reviewed the patient's lab results. 09/01/24 18:45 09/01/24 20:04 Lab Results 09/01/24 09/01/24 09/01/24 Range/Units 18:45 18:52 19:23 WBC 20.51 H (4.8-10.8) K/ul RBC 6.89 H (4.70-6.10) M/uL Hgb 19.9 H (14.0-18.0) g/dl POC Hgb 21.4 H* (14.0-18.0) g/dl Hct 60.1 H (42.0-52.0) % POC Hct 63 H* (42-52) % MCV 87.2 (80.0-100.0) fL MCH 28.9 (25.0-34.0) pg MCHC 33.1 (32.0-36.0) g/dL RDW Std Deviation 41.3 (36.4-46.3) fL RDW Coeff of Trveon 13.8 (11.5-14.5) % Plt Count 259 (130-400) K/uL MPV 12.7 H (9.4-12.4) fL Neutrophils % (Manual) 90 % Lymphocytes % (Manual) 6 % Monocytes % (Manual) 4 % Neutrophils # (Manual) 18.46 H (1.40-6.50) K/uL Total Absolute Neuts 18.46 H (1.4-6.5) K/uL Lymphocytes # (Manual) 1.23 (1.2-3.4) K/uL Total Abs Lymphocytes 1.23 (1.2-3.4) K/uL Monocytes # (Manual) 0.82 H (0.11-0.59) K/uL RBC Morphology Unremarkable PT Cancelled INR Cancelled APTT Cancelled PTT Ratio Cancelled Specimen Type POC pH (7.35-7.45) POC pCO2 (35-46) mmHg POC pO2 (80-95) mmHg POC HCO3 (19-24) sharmaine/L POC Base Excess (-9-1.8) sharmaine/L POC ABG O2 Sat (90-95) % VBG pH 7.07 L (7.36-7.41) VBG pCO2 23 L (38-50) mmHg VBG pO2 46 mmHg VBG HCO3 7 mmol/L VBG O2 Saturation 75.2 % VBG Base Excess -21.9 mEq/L POC Sodium 138 (135-144) mmol/L Sodium 138 (136-145) mmol/L POC Potassium 4.4 (3.3-5.0) mmol/L Potassium 4.3 (3.5-5.1) mmol/L POC Chloride 103 (101-112) mmol/L Chloride 93 L (98-107) mmol/L Carbon Dioxide 8 L* (21-32) mmol/L POC Total CO2 9 L* (24-31) mmol/L Anion Gap 37 H (3-11) POC Anion Gap 32.0 H (16-25) mmol/L POC BUN 30 H (7-18) mg/dl BUN 27 H (6-23) mg/dl Creatinine 2.05 H (0.6-1.4) mg/dl POC Creatinine 1.9 H (0.6-1.3) mg/dl Est Cr Clr Drug Dosing 46.6 ml/min eGFR 39.97 BUN/Creatinine Ratio 13.2 (10-20) Glucose 502 H* (70-99(Fasting)) mg/dl POC Glucose (70-99) mg/dl POC Glucose (other) 510 H* (70-99) mg/dl Calcium 10.0 (8.6-10.3) mg/dl POC Ioniz Calcium Kayla 1.10 L (1.12-1.32) mmol/l Phosphorus 6.4 H (2.5-4.9) mg/dl Magnesium 2.4 (1.7-2.4) mg/dl Total Bilirubin 0.9 (0.2-1.0) mg/dl AST 15 (13-39) U/L ALT 27 (7-52) U/L Alkaline Phosphatase 141 H (34-104) U/L Troponin I High Sens (0-20) pg/ml C-Reactive Protein (0-0.5) mg/dl B-Natriuretic Peptide 348 H (0-100) pg/ml Total Protein 9.1 H (6.0-8.3) gm/dl Albumin 6.4 H (3.4-5.0) gm/dl Globulin 2.7 (2.5-4.0) gm/dl Albumin/Globulin Ratio 2.4 H (0.9-2) Lipase 183 H (11-82) U/L Procalcitonin 0.18 (0-0.5) ng/ml Urine Color Urine Appearance (Clear) Urine pH (4.5-7.5) Ur Specific Cowden (1.000-1.030) Urine Protein (Negative) Urine Glucose (UA) (Negative) Urine Ketones (Negative) Urine Blood (Negative) Urine Nitrite (Negative) Urine Bilirubin (Negative) Urine Urobilinogen (Negative) Ur Leukocyte Esterase (Negative) Urine WBC (Auto) (0-5) /hpf Urine RBC (Auto) (0-2) /hpf U Hyaline Cast (Auto) (0-2) /lpf U Epithel Cells (Auto) (0-2) /hpf Urine Bacteria (Auto) (None Seen) Hyaline Casts (None Presnt) /lpf Urine Opiates Screen (Neg) Ur Methadone, Qual (Neg) Urine Fentanyl Screen (Neg) Urine Barbiturates (Neg) Ur Phencyclidine (PCP) (Neg) U Amphetamin/Meth Scrn (Neg) MDMA (Ecstasy) Screen (Neg) U Benzodiazepines Scrn (Neg) Ur Cocaine Metabolite (Neg) U Marijuana (THC) Screen (Neg) Ethyl Alcohol mg/dL < 10.0 (<10.0) mg/dl 09/01/24 09/01/24 09/01/24 Range/Units 20:01 20:04 20:17 WBC (4.8-10.8) K/ul RBC (4.70-6.10) M/uL Hgb (14.0-18.0) g/dl POC Hgb (14.0-18.0) g/dl Hct (42.0-52.0) % POC Hct (42-52) % MCV (80.0-100.0) fL MCH (25.0-34.0) pg MCHC (32.0-36.0) g/dL RDW Std Deviation (36.4-46.3) fL RDW Coeff of Trevon (11.5-14.5) % Plt Count (130-400) K/uL MPV (9.4-12.4) fL Neutrophils % (Manual) % Lymphocytes % (Manual) % Monocytes % (Manual) % Neutrophils # (Manual) (1.40-6.50) K/uL Total Absolute Neuts (1.4-6.5) K/uL Lymphocytes # (Manual) (1.2-3.4) K/uL Total Abs Lymphocytes (1.2-3.4) K/uL Monocytes # (Manual) (0.11-0.59) K/uL RBC Morphology PT 13.4 H INR 1.3 H APTT 28 PTT Ratio 1.0 Specimen Type POC pH (7.35-7.45) POC pCO2 (35-46) mmHg POC pO2 (80-95) mmHg POC HCO3 (19-24) sharmaine/L POC Base Excess (-9-1.8) sharmaine/L POC ABG O2 Sat (90-95) % VBG pH 7.11 L (7.36-7.41) VBG pCO2 (38-50) mmHg VBG pO2 mmHg VBG HCO3 mmol/L VBG O2 Saturation % VBG Base Excess mEq/L POC Sodium (135-144) mmol/L Sodium 142 (136-145) mmol/L POC Potassium (3.3-5.0) mmol/L Potassium 3.8 (3.5-5.1) mmol/L POC Chloride (101-112) mmol/L Chloride 120 H (98-107) mmol/L Carbon Dioxide 5 L* (21-32) mmol/L POC Total CO2 (24-31) mmol/L Anion Gap 17 H (3-11) POC Anion Gap (16-25) mmol/L POC BUN (7-18) mg/dl BUN 19 (6-23) mg/dl Creatinine 0.98 D (0.6-1.4) mg/dl POC Creatinine (0.6-1.3) mg/dl Est Cr Clr Drug Dosing 97.5 ml/min eGFR 96.91 BUN/Creatinine Ratio 19.4 (10-20) Glucose 309 H* (70-99(Fasting)) mg/dl POC Glucose 425 H* (70-99) mg/dl POC Glucose (other) (70-99) mg/dl Calcium 4.4 L* D (8.6-10.3) mg/dl POC Ioniz Calcium Kayla (1.12-1.32) mmol/l Phosphorus (2.5-4.9) mg/dl Magnesium 1.1 L (1.7-2.4) mg/dl Total Bilirubin (0.2-1.0) mg/dl AST (13-39) U/L ALT (7-52) U/L Alkaline Phosphatase (34-104) U/L Troponin I High Sens 28.8 H (0-20) pg/ml C-Reactive Protein < 0.50 (0-0.5) mg/dl B-Natriuretic Peptide (0-100) pg/ml Total Protein (6.0-8.3) gm/dl Albumin (3.4-5.0) gm/dl Globulin (2.5-4.0) gm/dl Albumin/Globulin Ratio (0.9-2) Lipase (11-82) U/L Procalcitonin (0-0.5) ng/ml Urine Color Urine Appearance (Clear) Urine pH (4.5-7.5) Ur Specific Cowden (1.000-1.030) Urine Protein (Negative) Urine Glucose (UA) (Negative) Urine Ketones (Negative) Urine Blood (Negative) Urine Nitrite (Negative) Urine Bilirubin (Negative) Urine Urobilinogen (Negative) Ur Leukocyte Esterase (Negative) Urine WBC (Auto) (0-5) /hpf Urine RBC (Auto) (0-2) /hpf U Hyaline Cast (Auto) (0-2) /lpf U Epithel Cells (Auto) (0-2) /hpf Urine Bacteria (Auto) (None Seen) Hyaline Casts (None Presnt) /lpf Urine Opiates Screen (Neg) Ur Methadone, Qual (Neg) Urine Fentanyl Screen (Neg) Urine Barbiturates (Neg) Ur Phencyclidine (PCP) (Neg) U Amphetamin/Meth Scrn (Neg) MDMA (Ecstasy) Screen (Neg) U Benzodiazepines Scrn (Neg) Ur Cocaine Metabolite (Neg) U Marijuana (THC) Screen (Neg) Ethyl Alcohol mg/dL (<10.0) mg/dl 09/01/24 09/01/24 09/01/24 Range/Units 20:40 20:51 21:22 WBC (4.8-10.8) K/ul RBC (4.70-6.10) M/uL Hgb (14.0-18.0) g/dl POC Hgb 17.3 (14.0-18.0) g/dl Hct (42.0-52.0) % POC Hct 51 (42-52) % MCV (80.0-100.0) fL MCH (25.0-34.0) pg MCHC (32.0-36.0) g/dL RDW Std Deviation (36.4-46.3) fL RDW Coeff of Trevon (11.5-14.5) % Plt Count (130-400) K/uL MPV (9.4-12.4) fL Neutrophils % (Manual) % Lymphocytes % (Manual) % Monocytes % (Manual) % Neutrophils # (Manual) (1.40-6.50) K/uL Total Absolute Neuts (1.4-6.5) K/uL Lymphocytes # (Manual) (1.2-3.4) K/uL Total Abs Lymphocytes (1.2-3.4) K/uL Monocytes # (Manual) (0.11-0.59) K/uL RBC Morphology PT INR APTT PTT Ratio Specimen Type Arterial POC pH 7.13 L* (7.35-7.45) POC pCO2 16 L (35-46) mmHg POC pO2 120 H (80-95) mmHg POC HCO3 5 L (19-24) sharmaine/L POC Base Excess -24.0 L (-9-1.8) sharmaine/L POC ABG O2 Sat 97.0 H (90-95) % VBG pH (7.36-7.41) VBG pCO2 (38-50) mmHg VBG pO2 mmHg VBG HCO3 mmol/L VBG O2 Saturation % VBG Base Excess mEq/L POC Sodium 134 L (135-144) mmol/L Sodium (136-145) mmol/L POC Potassium 5.6 H (3.3-5.0) mmol/L Potassium (3.5-5.1) mmol/L POC Chloride (101-112) mmol/L Chloride (98-107) mmol/L Carbon Dioxide (21-32) mmol/L POC Total CO2 6 L* (24-31) mmol/L Anion Gap (3-11) POC Anion Gap (16-25) mmol/L POC BUN (7-18) mg/dl BUN (6-23) mg/dl Creatinine (0.6-1.4) mg/dl POC Creatinine (0.6-1.3) mg/dl Est Cr Clr Drug Dosing ml/min eGFR BUN/Creatinine Ratio (10-20) Glucose (70-99(Fasting)) mg/dl POC Glucose 365 H* (70-99) mg/dl POC Glucose (other) (70-99) mg/dl Calcium (8.6-10.3) mg/dl POC Ioniz Calcium Kayla (1.12-1.32) mmol/l Phosphorus (2.5-4.9) mg/dl Magnesium (1.7-2.4) mg/dl Total Bilirubin (0.2-1.0) mg/dl AST (13-39) U/L ALT (7-52) U/L Alkaline Phosphatase (34-104) U/L Troponin I High Sens (0-20) pg/ml C-Reactive Protein (0-0.5) mg/dl B-Natriuretic Peptide (0-100) pg/ml Total Protein (6.0-8.3) gm/dl Albumin (3.4-5.0) gm/dl Globulin (2.5-4.0) gm/dl Albumin/Globulin Ratio (0.9-2) Lipase (11-82) U/L Procalcitonin (0-0.5) ng/ml Urine Color Yellow Urine Appearance Clear (Clear) Urine pH 5.0 (4.5-7.5) Ur Specific Cowden 1.040 H (1.000-1.030) Urine Protein 1+ H (Negative) Urine Glucose (UA) 3+ H (Negative) Urine Ketones 3+ H (Negative) Urine Blood Negative (Negative) Urine Nitrite Negative (Negative) Urine Bilirubin Negative (Negative) Urine Urobilinogen Negative (Negative) Ur Leukocyte Esterase Negative (Negative) Urine WBC (Auto) 0-5 (0-5) /hpf Urine RBC (Auto) 0-2 (0-2) /hpf U Hyaline Cast (Auto) 6-10 H (0-2) /lpf U Epithel Cells (Auto) 0-2 (0-2) /hpf Urine Bacteria (Auto) None Seen (None Seen) Hyaline Casts Present A (None Presnt) /lpf Urine Opiates Screen Neg (Neg) Ur Methadone, Qual Neg (Neg) Urine Fentanyl Screen Neg (Neg) Urine Barbiturates Neg (Neg) Ur Phencyclidine (PCP) Neg (Neg) U Amphetamin/Meth Scrn Neg (Neg) MDMA (Ecstasy) Screen Neg (Neg) U Benzodiazepines Scrn Neg (Neg) Ur Cocaine Metabolite Neg (Neg) U Marijuana (THC) Screen Pos H (Neg) Ethyl Alcohol mg/dL (<10.0) mg/dl 09/01/24 Range/Units 22:23 WBC (4.8-10.8) K/ul RBC (4.70-6.10) M/uL Hgb (14.0-18.0) g/dl POC Hgb (14.0-18.0) g/dl Hct (42.0-52.0) % POC Hct (42-52) % MCV (80.0-100.0) fL MCH (25.0-34.0) pg MCHC (32.0-36.0) g/dL RDW Std Deviation (36.4-46.3) fL RDW Coeff of Trevon (11.5-14.5) % Plt Count (130-400) K/uL MPV (9.4-12.4) fL Neutrophils % (Manual) % Lymphocytes % (Manual) % Monocytes % (Manual) % Neutrophils # (Manual) (1.40-6.50) K/uL Total Absolute Neuts (1.4-6.5) K/uL Lymphocytes # (Manual) (1.2-3.4) K/uL Total Abs Lymphocytes (1.2-3.4) K/uL Monocytes # (Manual) (0.11-0.59) K/uL RBC Morphology PT INR APTT PTT Ratio Specimen Type POC pH (7.35-7.45) POC pCO2 (35-46) mmHg POC pO2 (80-95) mmHg POC HCO3 (19-24) sharmaine/L POC Base Excess (-9-1.8) sharmaine/L POC ABG O2 Sat (90-95) % VBG pH (7.36-7.41) VBG pCO2 (38-50) mmHg VBG pO2 mmHg VBG HCO3 mmol/L VBG O2 Saturation % VBG Base Excess mEq/L POC Sodium (135-144) mmol/L Sodium (136-145) mmol/L POC Potassium (3.3-5.0) mmol/L Potassium (3.5-5.1) mmol/L POC Chloride (101-112) mmol/L Chloride (98-107) mmol/L Carbon Dioxide (21-32) mmol/L POC Total CO2 (24-31) mmol/L Anion Gap (3-11) POC Anion Gap (16-25) mmol/L POC BUN (7-18) mg/dl BUN (6-23) mg/dl Creatinine (0.6-1.4) mg/dl POC Creatinine (0.6-1.3) mg/dl Est Cr Clr Drug Dosing ml/min eGFR BUN/Creatinine Ratio (10-20) Glucose (70-99(Fasting)) mg/dl POC Glucose 293 H (70-99) mg/dl POC Glucose (other) (70-99) mg/dl Calcium (8.6-10.3) mg/dl POC Ioniz Calcium Kayla (1.12-1.32) mmol/l Phosphorus (2.5-4.9) mg/dl Magnesium (1.7-2.4) mg/dl Total Bilirubin (0.2-1.0) mg/dl AST (13-39) U/L ALT (7-52) U/L Alkaline Phosphatase (34-104) U/L Troponin I High Sens (0-20) pg/ml C-Reactive Protein (0-0.5) mg/dl B-Natriuretic Peptide (0-100) pg/ml Total Protein (6.0-8.3) gm/dl Albumin (3.4-5.0) gm/dl Globulin (2.5-4.0) gm/dl Albumin/Globulin Ratio (0.9-2) Lipase (11-82) U/L Procalcitonin (0-0.5) ng/ml Urine Color Urine Appearance (Clear) Urine pH (4.5-7.5) Ur Specific [place] (1.000-1.030) Urine Protein (Negative) Urine Glucose (UA) (Negative) Urine Ketones (Negative) Urine Blood (Negative) Urine Nitrite (Negative) Urine Bilirubin (Negative) Urine Urobilinogen (Negative) Ur Leukocyte Esterase (Negative) Urine WBC (Auto) (0-5) /hpf Urine RBC (Auto) (0-2) /hpf U Hyaline Cast (Auto) (0-2) /lpf U Epithel Cells (Auto) (0-2) /hpf Urine Bacteria (Auto) (None Seen) Hyaline Casts (None Presnt) /lpf Urine Opiates Screen (Neg) Ur Methadone, Qual (Neg) Urine Fentanyl Screen (Neg) Urine Barbiturates (Neg) Ur Phencyclidine (PCP) (Neg) U Amphetamin/Meth Scrn (Neg) MDMA (Ecstasy) Screen (Neg) U Benzodiazepines Scrn (Neg) Ur Cocaine Metabolite (Neg) U Marijuana (THC) Screen (Neg) Ethyl Alcohol mg/dL (<10.0) mg/dl Administered Medications Insulin Human Regular 250 (units/ Sodium Chloride) 250 mls @ 8.9 mls/hr IV .Q24H [facility]; Protocol Stop: 10/01/24 19:59 Last Titration: 09/01/24 21:25 Dose: 8.9 units/hr, 8.9 mls/hr Documented By: KISHORE Co-signed By: ANU Admin: 09/01/24 20:22 Dose: 8.9 units/hr, 8.9 mls/hr Documented By: KISHORE Co-signed By: ANU Magnesium Sulfate/Dextrose (Magnesium Sulfate / D5w) 1 gm in 100 mls @ 50 mls/hr IV Q2H IVAN Stop: 09/02/24 04:59 Last Admin: 09/01/24 21:35 Dose: 50 mls/hr Documented By: KISHORE Oxycodone HCl (Oxycodone Hcl Ir 5 Mg Tab (Immediate Release)) 5 mg PO Q4H PRN PRN Reason: Pain Stop: 09/15/24 20:42 Last Admin: 09/01/24 20:55 Dose: 5 mg Documented By: KISHORE Discontinued Medications Hydromorphone HCl (Hydromorphone Inj 0.5 Mg/0.5 Ml Syr) 0.5 mg IV Q15M PRN PRN Reason: Pain Stop: 09/15/24 18:36 Last Admin: 09/01/24 18:42 Dose: 0.5 mg Documented By: SJ Promethazine HCl (Phenergan) 25 mg in 51 mls @ 204 mls/hr IV NOW STA Stop: 09/01/24 18:51 Last Infusion: 09/01/24 19:10 Dose: Infused Documented By: Admin: 09/01/24 18:41 Dose: 204 mls/hr Documented By: SJ Sodium Chloride (Nss) 1,000 mls @ 999 mls/hr IV .Q1H1M ONE Stop: 09/01/24 19:54 Last Infusion: 09/01/24 20:21 Dose: Infused Documented By: Admin: 09/01/24 19:28 Dose: 999 mls/hr Documented By: KISHORE Piperacillin Sod/Tazobactam Sod (Zosyn) 4.5 gm in 100 mls @ 200 mls/hr IV NOW ONE; Protocol Stop: 09/01/24 20:33 Last Infusion: 09/01/24 21:02 Dose: Infused Documented By: Admin: 09/01/24 20:39 Dose: 200 mls/hr Documented By: KISHORE Thiamine HCl 100 mg/ Syringe 10 mls @ 2 mls/min IV 2036 STA Stop: 09/01/24 20:41 Last Admin: 09/01/24 21:06 Dose: 2 mls/min Documented By: KISHORE Lactated Ringer's (Lr) 250 mls @ 500 mls/hr IV .Q30M ONE Stop: 09/01/24 21:10 Last Admin: 09/01/24 21:18 Dose: Not Given Documented By: KISHORE Lactated Ringer's (Lr) 500 mls @ 999 mls/hr IV .Q31M ONE Stop: 09/01/24 21:13 Last Admin: 09/01/24 20:57 Dose: 999 mls/hr Documented By: KISHORE Lactated Ringer's (Lr) 250 mls @ 500 mls/hr IV .Q30M ONE Stop: 09/01/24 22:29 Last Infusion: 09/01/24 21:26 Dose: Infused Documented By: Admin: 09/01/24 21:02 Dose: 500 mls/hr Documented By: KISHORE Pantoprazole Sodium (Protonix) 40 mg in 10 mls @ 5 mls/min IV NOW ONE Stop: 09/01/24 21:01 Last Admin: 09/01/24 21:31 Dose: 5 mls/min Documented By: KISHORE Insulin Aspart (Insulin Aspart Per Unit Charge) 0 units SC ACHS IVAN Stop: 10/01/24 20:59 Last Admin: 09/01/24 21:18 Dose: Not Given Documented By: KISHORE Co-signed By: ANU Metoprolol Tartrate (Metoprolol Tartrate 1 Mg/Ml Vial) 2.5 mg IV NOW STA Stop: 09/01/24 20:42 Last Admin: 09/01/24 20:51 Dose: 2.5 mg Documented By: KISHORE Miscellaneous (Dka Goal Range 150-250 Mg/Dl) 1 each N/A ONE ONE Stop: 09/01/24 19:51 Last Admin: 09/01/24 21:03 Dose: Not Given Documented By: KISHORE Ondansetron HCl (Ondansetron Inj 2 Mg/Ml 2 Ml Vial) 4 mg IV NOW STA Stop: 09/01/24 20:32 Last Admin: 09/01/24 20:33 Dose: 4 mg Documented By: KISHORE Potassium Chloride (Potassium Chloride Crtab 20 Meq Tabcr) 40 meq PO NOW STA Stop: 09/01/24 20:53 Last Admin: 09/01/24 21:14 Dose: 40 meq Documented By: KISHORE Imaging Data Attestation: I personally reviewed and interpreted this imaging study as follows: My Impression: CT of the abdomen and pelvis was obtained in the emergency department. My interpretation is no free air or signs of bowel obstruction, final report below. CT of the chest was obtained in the emergency department. Interpretation is no free air or signs of infiltrate, final report below. Radiologist's Impression: Abdomen/Pelvis CT 09/01/24 18:37 Exam(s): CT ABDOMEN + PELVIS With Contrast IV Amt: OPTIRAY 320 116ML EXAM: CT Abdomen and Pelvis With Intravenous Contrast CLINICAL HISTORY: vomiting. TECHNIQUE: Axial computed tomography images of the abdomen and pelvis with intravenous contrast. CTDI is 27.29 mGy and DLP is 847.05 mGy-cm. Automated exposure control was utilized for the study. A dose lowering technique was utilized adhering to the principles of ALARA. CONTRAST: Patient received OPTIRAY 320 116ML of IV contrast COMPARISON: CT abdomen and pelvis without contrast dated 06/12/2024 FINDINGS: Lung bases: Unremarkable. No mass. No consolidation. ABDOMEN: Liver: Unremarkable. No mass. Gallbladder and bile ducts: Unremarkable. No calcified stones. No ductal dilation. Pancreas: Unremarkable. No mass. No ductal dilation. Spleen: Stable presumed splenule medial to the spleen and posterior to the gastric fundus measuring 1.5 cm. Adrenals: Unremarkable. No mass. Kidneys and ureters: Unremarkable. No solid mass. No hydronephrosis. Stomach and bowel: The stomach is mildly fluid distended. No gastric mucosal thickening or retrograde distention of the distal thoracic esophagus. No evidence for bowel obstruction. No asymmetric mucosal abnormality. Mild stool burden. Scattered diverticulosis without definitive diverticulitis. PELVIS: Appendix: A normal caliber appendix is noted extending inferiorly from the cecum in the right lower quadrant. Bladder: Unremarkable. No mass. Reproductive: Unremarkable as visualized. ABDOMEN and PELVIS: Intraperitoneal space: Unremarkable. No free air. No significant fluid collection. Bones/joints: Similar multilevel degenerative changes throughout the thoracolumbar spine. No acute osseous abnormality. No dislocation. Soft tissues: Unremarkable. Vasculature: Unremarkable. No abdominal aortic aneurysm. Lymph nodes: Unremarkable. No enlarged lymph nodes. IMPRESSION: The stomach is mildly fluid distended. No gastric mucosal thickening or retrograde distention of the distal thoracic esophagus. No evidence for bowel obstruction. No asymmetric mucosal abnormality. Mild stool burden. Scattered diverticulosis without definitive diverticulitis. No free intraperitoneal fluid or pneumoperitoneum. Electronically signed by: Ayden Olmedo MD 09/01/24 20:37 PM Chest CTA 09/01/24 18:39 Exam(s): CTA CHEST IV Amt: OPTIRAY 320 116ML EXAM: CT Angiography Chest With Intravenous Contrast CLINICAL HISTORY: Evaluate for potential PE. TECHNIQUE: Axial computed tomographic angiography images of the chest with intravenous contrast. CTDI is 23.72 mGy and DLP is 1216.49 mGy-cm. Automated exposure control was utilized for the study. A dose lowering technique was utilized adhering to the principles of ALARA. MIP reconstructed images were created and reviewed. COMPARISON: CT chest without contrast dated 06/12/2024 FINDINGS: Pulmonary arteries: Attending for respiratory artifact, there is no definite evidence for pulmonary embolism. Aorta: The aorta is normal in caliber without dissection or aneurysm. Lungs: No focal airspace consolidation. Pleural space: Unremarkable. No significant effusion. No pneumothorax. Heart: Unremarkable. No cardiomegaly. No significant pericardial effusion. Mediastinum: Concentric mucosal thickening involving the distal thoracic esophagus. No evidence for obstruction or paraesophageal inflammatory changes. Bones/joints: No acute fracture. No dislocation. Soft tissues: Unremarkable. Lymph nodes: Unremarkable. No enlarged lymph nodes. IMPRESSION: 1. Attending for respiratory artifact, there is no definite evidence for pulmonary embolism. 2. Concentric mucosal thickening involving the distal thoracic esophagus. No evidence for obstruction or paraesophageal inflammatory changes. This was suggested on the previous CT examination but appears more prominent. Differential consideration includes advancing hypertrophic changes versus recurrent inflammatory or infectious esophagitis. 3. No focal airspace consolidation. No pleural effusion or pneumothorax. Electronically signed by: Ayden Olmedo MD 09/01/24 20:40 PM Discharge Plan Visit Data Chief Complaint: Shortness of Breath/Dyspnea Stated Complaint: CARDIAC ASSESSMENT ED Provider: Candido Palomo Discharge Problem: DKA (diabetic ketoacidosis), Metabolic acidosis, Nausea & vomiting, Acute dehydration, Atrial fibrillation with rapid ventricular response Patient Disposition: Being Evaluated by Hospitalist Forms Stand Alone Forms: My [facility] Prescriptions Prescriptions: No Action atorvastatin 40 mg tablet 40 mg PO QAM metoprolol succinate 50 mg tablet extended release 24 hr 75 mg PO QAM gabapentin 300 mg capsule 300 mg PO TID ezetimibe 10 mg tablet 10 mg PO QAM fenofibrate nanocrystallized 145 mg tablet 145 mg PO QAM insulin glargine 100 unit/mL (3 mL) insulin pen 20 unit SUBCUT QAM Xarelto 20 mg tablet 20 mg PO QDD promethazine 6.25 mg/5 mL syrup 6.25 mg PO AC furosemide 20 mg tablet 20 mg PO UD PRN (Reason: edema) Rx Instructions: Take 20mg by mouth once in the morning, may take an extra 20mg if weight gain is 3lbs in 1 day or 5lbs in 1 week Entresto 24-26 mg tablet 0.5 tab PO BID pantoprazole 40 mg tablet,delayed release (DR/EC) 40 mg PO BID cholecalciferol (vitamin D3) 1,250 mcg (50,000 unit) capsule 1,250 mcg PO WK Patient Comments: fridays Rx Instructions: FRIDAYS Jardiance 10 mg tablet 10 mg PO QAM triamcinolone acetonide 0.1 % cream 1 applic TOPICAL BID PRN (Reason: Itching) duloxetine 30 mg capsule,delayed release(DR/EC) 30 mg PO QAM metoclopramide HCl 10 mg tablet 10 mg PO TID Rx Instructions: take in morning,noon and before bed trazodone 50 mg Tablet 50 mg PO HS linaclotide 145 mcg Capsule 145 mcg PO QDB spironolactone 25 mg tablet 25 mg PO QAM magnesium citrate Solution 120 ml PO DAILY PRN (Reason: severe constipation) Referrals Referrals: Dany Caruso MD [Primary Care Provider] - Discharge Problem: DKA (diabetic ketoacidosis) Qualifiers: Diabetes mellitus type: other specified (including REESE) Diabetes mellitus complication detail: without coma Qualified Code(s): E13.10 - Other specified diabetes mellitus with ketoacidosis without coma Nausea & vomiting Qualifiers: Vomiting type: unspecified Qualified Code(s): R11.2 - Nausea with vomiting, unspecified
[2024-09-01] MEDS: PROMETHAZINE 25 MG/51 ML BAG IV STA (18:41)
[2024-09-01] MEDS: HYDROmorphone INJ 0.5 MG/0.5 ML SYR IV PRN (18:42)
[2024-09-01 19:04] LABS: iSTAT Creatinine 1.9 mg/dl (0.6-1.3); iSTAT Hemoglobin 21.4 g/dl (14.0-18.0); iSTAT Ionized Calcium 1.1 mmol/l (1.12-1.32); iSTAT Potassium 4.4 mmol/L (3.3-5.0)
[2024-09-01] MEDS: SODIUM CHLORIDE 0.9% 1,000 ML IV ONE (19:28)
[2024-09-01 19:33] LABS: Base Excess VBG -21.9 mEq/L; HCO3 VBG 7 mmol/L; Oxygen Saturation VBG 75.2 %; PCO2 VBG 23 mmHg (38-50); PO2 VBG 46 mmHg; pH VBG 7.07 (7.36-7.41)
[2024-09-01] MEDS ORDERED: GLUCOSE 40% GEL 15 GM TUBE PO PRN (19:45)
[2024-09-01] MEDS ORDERED: DEXTROSE 50% 50 ML SYRINGE IV PRN (19:45)
[2024-09-01] MEDS ORDERED: CARBOHYDRATES FOR HYPOGLYCEMIA PO PRN (19:45)
[2024-09-01] MEDS ORDERED: GLUCOSE 10 TAB/TUBE PO PRN (19:45)
[2024-09-01] MEDS ORDERED: GLUCAGON FOR INJ 1 MG VIAL SQ PRN (19:45)
[2024-09-01 19:46] LABS: BUN Creatinine Ratio 13.2 (10-20); Bilirubin,Total 0.9 mg/dl (0.2-1.0); Creatinine Clr Calc Pharmacy 46.6 ml/min; Potassium 4.3 mmol/L (3.5-5.1); Total Protein 9.1 gm/dl (6.0-8.3)
[2024-09-01] MEDS ORDERED: STAT IV Infusion **Titration per Protocol STA (19:50)
[2024-09-01 19:53] LABS: ALC (manual) 1.23 K/uL (1.2-3.4); ANC (manual) 18.46 K/uL (1.4-6.5); Hematocrit (blood only) 60.1 % (42.0-52.0); Hemoglobin 19.9 g/dl (14.0-18.0); Lymphocytes # (manual) 1.23 K/uL (1.2-3.4); Lymphocytes % (manual) 6 %; Mean Corpuscular Hemoglobin 28.9 pg (25.0-34.0); Mean Corpuscular Hgb Conc 33.1 g/dL (32.0-36.0); Mean Corpuscular Volume 87.2 fL (80.0-100.0); Mean Platelet Volume 12.7 fL (9.4-12.4); Monocytes # (manual) 0.82 K/uL (0.11-0.59); Monocytes % (manual) 4 %; Neutrophils # (manual) 18.46 K/uL (1.40-6.50); Neutrophils % (manual) 90 %; Platelet Count 259 K/uL (130-400); RBC Morphology Unremarkable; RDW Coefficient of Variation 13.8 % (11.5-14.5); RDW Standard Deviation 41.3 fL (36.4-46.3); Red Blood Count 6.89 M/uL (4.70-6.10); White Blood Count 20.51 K/ul (4.8-10.8)
[2024-09-01] MEDS: INSULIN REGULAR 250 UNITS in SODIUM CHLORIDE 0.9% 247.5 ML IV SCH (20:22)
[2024-09-01 20:23] LABS: INR 1.3 (0.9-1.1); Partial Thromboplastin Time 28 Seconds (21-31); Prothrombin Time 13.4 Seconds (9.0-12.0)
[2024-09-01 20:27] LABS: Magnesium 2.4 mg/dl (1.7-2.4); Phosphorus 6.4 mg/dl (2.5-4.9)
[2024-09-01] MEDS: ONDANSETRON INJ 2 MG/ML 2 ML VIAL IV STA (20:33)
[2024-09-01 20:36] LABS: Anion Gap 17 (3-11); BUN Creatinine Ratio 19.4 (10-20); Blood Urea Nitrogen 19 mg/dl (6-23); Calcium 4.4 mg/dl (8.6-10.3); Carbon Dioxide 5 mmol/L (21-32); Chloride 120 mmol/L (98-107); Creatinine Clr Calc Pharmacy 97.5 ml/min; Glucose 309 mg/dl (70-99(Fasting)); Magnesium 1.1 mg/dl (1.7-2.4); Potassium 3.8 mmol/L (3.5-5.1); Sodium 142 mmol/L (136-145)
[2024-09-01] MEDS: PIPERACILLIN/TAZOBACTAM 4.5 GM/100 ML BAG IV ONE (20:39)
--- NOTE | 2024-09-01 20:39 | CT Scan Report ---
Exam(s): CT ABDOMEN + PELVIS With Contrast IV Amt: OPTIRAY 320 116ML EXAM: CT Abdomen and Pelvis With Intravenous Contrast CLINICAL HISTORY: vomiting. TECHNIQUE: Axial computed tomography images of the abdomen and pelvis with intravenous contrast. CTDI is 27.29 mGy and DLP is 847.05 mGy-cm. Automated exposure control was utilized for the study. A dose lowering technique was utilized adhering to the principles of ALARA. CONTRAST: Patient received OPTIRAY 320 116ML of IV contrast COMPARISON: CT abdomen and pelvis without contrast dated 06/12/2024 FINDINGS: Lung bases: Unremarkable. No mass. No consolidation. ABDOMEN: Liver: Unremarkable. No mass. Gallbladder and bile ducts: Unremarkable. No calcified stones. No ductal dilation. Pancreas: Unremarkable. No mass. No ductal dilation. Spleen: Stable presumed splenule medial to the spleen and posterior to the gastric fundus measuring 1.5 cm. Adrenals: Unremarkable. No mass. Kidneys and ureters: Unremarkable. No solid mass. No hydronephrosis. Stomach and bowel: The stomach is mildly fluid distended. No gastric mucosal thickening or retrograde distention of the distal thoracic esophagus. No evidence for bowel obstruction. No asymmetric mucosal abnormality. Mild stool burden. Scattered diverticulosis without definitive diverticulitis. PELVIS: Appendix: A normal caliber appendix is noted extending inferiorly from the cecum in the right lower quadrant. Bladder: Unremarkable. No mass. Reproductive: Unremarkable as visualized. ABDOMEN and PELVIS: Intraperitoneal space: Unremarkable. No free air. No significant fluid collection. Bones/joints: Similar multilevel degenerative changes throughout the thoracolumbar spine. No acute osseous abnormality. No dislocation. Soft tissues: Unremarkable. Vasculature: Unremarkable. No abdominal aortic aneurysm. Lymph nodes: Unremarkable. No enlarged lymph nodes. IMPRESSION: The stomach is mildly fluid distended. No gastric mucosal thickening or retrograde distention of the distal thoracic esophagus. No evidence for bowel obstruction. No asymmetric mucosal abnormality. Mild stool burden. Scattered diverticulosis without definitive diverticulitis. No free intraperitoneal fluid or pneumoperitoneum. Electronically signed by: Ayden Olmedo MD 09/01/24 20:37 PM
--- NOTE | 2024-09-01 20:41 | CT Scan Report ---
Exam(s): CTA CHEST IV Amt: OPTIRAY 320 116ML EXAM: CT Angiography Chest With Intravenous Contrast CLINICAL HISTORY: Evaluate for potential PE. TECHNIQUE: Axial computed tomographic angiography images of the chest with intravenous contrast. CTDI is 23.72 mGy and DLP is 1216.49 mGy-cm. Automated exposure control was utilized for the study. A dose lowering technique was utilized adhering to the principles of ALARA. MIP reconstructed images were created and reviewed. COMPARISON: CT chest without contrast dated 06/12/2024 FINDINGS: Pulmonary arteries: Attending for respiratory artifact, there is no definite evidence for pulmonary embolism. Aorta: The aorta is normal in caliber without dissection or aneurysm. Lungs: No focal airspace consolidation. Pleural space: Unremarkable. No significant effusion. No pneumothorax. Heart: Unremarkable. No cardiomegaly. No significant pericardial effusion. Mediastinum: Concentric mucosal thickening involving the distal thoracic esophagus. No evidence for obstruction or paraesophageal inflammatory changes. Bones/joints: No acute fracture. No dislocation. Soft tissues: Unremarkable. Lymph nodes: Unremarkable. No enlarged lymph nodes. IMPRESSION: 1. Attending for respiratory artifact, there is no definite evidence for pulmonary embolism. 2. Concentric mucosal thickening involving the distal thoracic esophagus. No evidence for obstruction or paraesophageal inflammatory changes. This was suggested on the previous CT examination but appears more prominent. Differential consideration includes advancing hypertrophic changes versus recurrent inflammatory or infectious esophagitis. 3. No focal airspace consolidation. No pleural effusion or pneumothorax. Electronically signed by: Ayden Olmedo MD 09/01/24 20:40 PM
[2024-09-01] MEDS ORDERED: ACETAMINOPHEN 500 MG TAB PO PRN (20:43)
[2024-09-01 20:50] LABS: Troponin I High Sensitivity 28.8 pg/ml (0-20)
[2024-09-01] MEDS: METOPROLOL TARTRATE 1 MG/ML VIAL IV STA (20:51)
[2024-09-01 20:54] LABS: iSTAT Arterial Blood Gas HCO3 5 meg/L (19-24); iSTAT Arterial Blood Gas pCO2 16 mmHg (35-46); iSTAT Arterial Blood Gas pH 7.13 (7.35-7.45); iSTAT Arterial Blood Gas pO2 120 mmHg (80-95); iSTAT Carbon Dioxide 6 mmol/L (24-31); iSTAT Hematocrit 51 % (42-52); iSTAT Hemoglobin 17.3 g/dl (14.0-18.0); iSTAT Potassium 5.6 mmol/L (3.3-5.0); iSTAT Sample Type Arterial; iSTAT Sodium 134 mmol/L (135-144)
[2024-09-01] MEDS: oxyCODONE HCL IR 5 MG TAB (IMMEDIATE RELEASE) PO PRN (20:55)
[2024-09-01 20:57] LABS: Albumin Globulin Ratio 2.4 (0.9-2); Albumin Level 6.4 gm/dl (3.4-5.0); Globulin 2.7 gm/dl (2.5-4.0)
[2024-09-01] MEDS: LACTATED RINGER'S 500 ML IV ONE (20:57)
[2024-09-01] MEDS ORDERED: [UNRECOGNIZED DRUG - REMARK] SCH (21:00)
[2024-09-01] MEDS: LACTATED RINGER'S 250 ML IV ONE ×2 (21:02→21:18)
[2024-09-01] MEDS: DKA GOAL RANGE 150-250 mg/dl ONE (21:03)
[2024-09-01] MEDS: THIAMINE HCL 100 MG in SYRINGE 9 ML IV STA (21:06)
[2024-09-01] MEDS: POTASSIUM CHLORIDE CRTAB 20 MEQ TABCR PO STA (21:14)
[2024-09-01] MEDS: INSULIN ASPART PER UNIT CHARGE SC SCH (21:18)
[2024-09-01] MEDS: PANTOprazole 40 MG/10 ML SYR IV ONE (21:31)
[2024-09-01 21:35] LABS: Appearance Urine Clear (Clear); Bacteria Urine Automated None Seen (None Seen); Bilirubin Urine Negative (Negative); Blood Urine Negative (Negative); Color Urine Yellow; Epithelial Cell Urine Auto 0-2 /hpf (0-2); Glucose Urine UA 3+ (Negative); Hyaline Casts Urine Present /lpf (None Presnt); Ketones Urine 3+ (Negative); Leukocyte Esterase Urine Negative (Negative); Nitrite Urine Negative (Negative); Protein Urine 1+ (Negative); RBC Urine Automated 0-2 /hpf (0-2); Urobilinogen Urine Negative (Negative); WBC Urine Automated 0-5 /hpf (0-5)
[2024-09-01] MEDS: MAGNESIUM SULFATE / D5W 1 GM/100 ML BAG IV SCH (21:35)
[2024-09-01 22:03] LABS: Amphetamines+Metham, Urine Neg (Neg); Barbiturates, Urine Neg (Neg); Benzodiazepine, Urine Neg (Neg); Cocaine, Urine Neg (Neg); Fentanyl, Urine Neg (Neg); MDMA (Ecstacy), Urine Neg (Neg); Marijuana, Urine Pos (Neg); Methadone, Urine Neg (Neg); Opiate, Urine Neg (Neg); Phencyclidine, Urine Neg (Neg)
[2024-09-01 22:18] LABS: C Reactive Protein < 0.50 mg/dl (0-0.5)
[2024-09-01] MEDS: POTASSIUM CHLORIDE / WTR 10 MEQ/100 ML PLCT IV SCH (22:58)
[2024-09-01] MEDS ORDERED: LORazepam 2 MG/1 ML VIAL IV PRN (23:16)
[2024-09-01] MEDS ORDERED: PROMETHAZINE 6.25 MG/50.25 ML BAG IV PRN (23:20)
[2024-09-01] MEDS ORDERED: LORazepam 0.5 MG TAB PO PRN (23:22)
[2024-09-01] MEDS ORDERED: POTASSIUM CHLORIDE 20 MEQ in LACTATED RINGER'S 1,000 ML IV ONE (23:30)
--- NOTE | 2024-09-01 23:31 | History & Physical Report ---
Date of Service September 01, 2024 Assessment & Plan (1) DKA (diabetic ketoacidosis): Plan: Alcohol abuse Plan: Secondary to medication noncompliance DM 2 insulin requiring, suboptimal control as of recent hemoglobin A1c of 7.9 last June 2024 Anion gap metabolic acidosis secondary to above UGIB likely secondary to nausea vomiting symptoms from DKA, history esophagitis, history of GERD/gastroparesis, paroxysmal atrial flutter/unprovoked PE status post Xarelto, patient hemoglobin currently stable likely secondary to hemoconcentration Recurrent atrial flutter secondary to illness chronic diastolic heart failure (EF 50 to 55%, TTE 2023), patient on the dry side history congenital heart surgery hypertension, BP on the lower side hyperlipidemia alcohol abuse as per records Hypomagnesemia past tobacco abuse ICU IVF, IV insulin IV PPI Hold Xarelto for now given UGIB Follow H&H, transfuse PRBC if hemoglobin less than 7 and or for symptomatic anemia GI consult if with progression of GI bleed Digoxin 1 dose now for rapid atrial flutter given borderline BP, amiodarone infusion if without response [place] S at risk protocol, DT precautions Replace magnesium DVT prophylaxis. SCDs re: GI bleed Full code Total critical care time was 45 minutes. Text document was generated using [employer] voice recognition software. It may contain grammatical or spelling errors. Kindly contact undersigned for clarification of any documentation item in question. History of Present Illness Chief Complaint: Abdominal pain, nausea, vomiting Primary Care Provider: Dany Caruso MD History obtained from patient and records. Medical history significant for chronic diastolic heart failure (EF 50 to 55%, TTE 2023), hx nonischemic cardiomyopathy ), history congenital heart surgery, hypertension, hyperlipidemia, paroxysmal atrial flutter/unprovoked PE status post Xarelto, DM2 insulin requiring, chronic abdominal pain, GERD, gastroparesis as per records, alcohol abuse as per records, past tobacco abuse, medical noncompliance as per records. Last confinement May 2024 for syncope secondary to hypotension/hypovolemia. Following discharge from hospital, patient noted chronic abdominal pain attri buted to gastroparesis and GERD. Out[place] [facility] [place] showed hiatal hernia and esophagitis. Daily PPI recommended. Last week, patient noted coffee-ground emesis and dark later red bloody stools. With worsening of chronic achy going to the chest. Abdominal pain No unusual SOB. Denies headache symptoms. Denies OTC NSAID intake. Patient encountered problem with sugar monitor at home. Was cutting down on usual doses of insulin to be safe. BSG 500s upon arrival at the ER. Rapid atrial flutter heart rate 160s, SBP 100s later noted at the ER Medical History as above Surgical History : VSD surgery, ankle surgery, dental surgery, knee surgery Family History : DM Personal/Social history : Past tobacco abuse, alcohol abuse as per records which patient denies, currently unemployed Allergies Allergy/AdvReac Type Severity Reaction Status Date / Time semaglutide [From Ozempic] Allergy Unknown Hallucinati Verified 08/08/24 08:20 ng Sulfa (Sulfonamide Allergy Unknown ITCHY/HOT Verified 08/08/24 08:20 Antibiotics) metformin AdvReac Unknown Diarrhea Verified 08/08/24 08:20 morphine AdvReac Unknown Nausea Verified 08/08/24 08:20 Home Medications Medication Instructions Recorded Confirmed Type atorvastatin 40 mg tablet 40 mg PO QAM 06/23/21 09/01/24 History ezetimibe 10 mg tablet 10 mg PO QAM 02/09/24 09/01/24 History fenofibrate nanocrystallized 145 145 mg PO QAM 02/09/24 09/01/24 History mg tablet gabapentin 300 mg capsule 300 mg PO TID 02/09/24 09/01/24 History insulin glargine 100 unit/mL (3 20 unit subcut QA 02/09/24 09/01/24 History mL) subcutaneous pen metoprolol succinate 50 mg 75 mg PO QAM 02/09/24 09/01/24 History tablet,extended release 24 hr rivaroxaban 20 mg tablet (Xarelto) 20 mg PO QDD 03/24/24 09/01/24 History cholecalciferol (vitamin D3) 1,250 1,250 mcg PO WK 06/12/24 09/01/24 History mcg (50,000 unit) capsule empagliflozin 10 mg tablet 10 mg PO QAM 06/12/24 09/01/24 History (Jardiance) pantoprazole 40 mg tablet,delayed 40 mg PO BID 06/12/24 09/01/24 History release triamcinolone acetonide 0.1 % 1 applic topical BID PRN Itching 06/12/24 09/01/24 History topical cream furosemide 20 mg tablet 20 mg PO UD PRN edema 07/30/24 09/01/24 History promethazine 6.25 mg/5 mL oral 6.25 mg PO AC gastroparesis 07/30/24 09/01/24 History syrup sacubitril 24 mg-valsartan 26 mg 0.5 tab PO BID 07/30/24 09/01/24 History tablet (Entresto) duloxetine 30 mg capsule,delayed 30 mg PO QAM 09/01/24 09/01/24 History release linaclotide 145 mcg capsule 145 mcg PO QDB 09/01/24 09/01/24 History magnesium citrate 120 ml PO DAILY PRN severe 09/01/24 09/01/24 History constipation metoclopramide HCl 10 mg tablet 10 mg PO TID 09/01/24 09/01/24 History spironolactone 25 mg tablet 25 mg PO QAM 09/01/24 09/01/24 History trazodone 50 mg tablet 50 mg PO HS 09/01/24 09/01/24 History Past Med/Surg History Problem List Atrial fibrillation with rapid ventricular response (Acute) Acute dehydration (Acute) Nausea & vomiting (Acute) Metabolic acidosis (Acute) DKA (diabetic ketoacidosis) (Acute) Atypical chest pain Heart failure with improved ejection fraction (HFimpEF) Diaphoresis (Acute) Tachycardia (Acute) Acute dehydration (Acute) Weakness (Acute) BONILLA (acute kidney injury) (Acute) Syncope (Acute) Syncope and collapse Dehydration (Acute) High anion gap metabolic acidosis (Acute) DKA (diabetic ketoacidosis) (Acute) Alcohol withdrawal Esophagitis Malnutrition Nausea & vomiting Constipation Weight loss Lactic acid acidosis Metabolic acidosis Intractable nausea and vomiting (Acute) BONILLA (acute kidney injury) (Acute) Deep vein thrombosis, lower left extremity Non-ischemic cardiomyopathy New onset of congestive heart failure (04/2022) Dyspnea (Acute) Pleural effusion, bilateral (Acute) Right bundle branch block Vitamin D deficiency 8.9 in 06/2019 HLD (hyperlipidemia) TG 2049, TC 301 in 06/2019 T2DM (type 2 diabetes mellitus) Alcohol abuse Overweight (BMI 25.0-29.9) HTN (hypertension) GERD (gastroesophageal reflux disease) Medical History Diabetes Non-ischemic cardiomyopathy denies Pleural effusion current problem "hear failure causes directly" - monitored by pcp. Denies change from baseline. Right bundle branch block pt doesn't know, reports: "not right now " when asked about hx of irregular heart beats. GERD (gastroesophageal reflux disease) pt not sure Hyperlipidemia HTN (hypertension) Poor historian History of renal failure yrs and yrs ago, pt doesn't know details surrounding. History of chest pain (05/2024) May 2024 pt reports felt like heart failure, not dx with anything. Admitted April or May 2024 [facility] for dka ?. Pt poor historian. No re occurence of chest pain. History of congestive heart failure dx age 3 following heart sx. "doesn't ever go away" - monitored by pcp. History of DVT (deep vein thrombosis) early 2023. History of pulmonary embolism 04/2022 History of diabetic ketoacidosis April or May 2024 - [place]. Pt poor historian. Gastroparesis History of kidney stones Surgical History History of ankle surgery (2020) right ankle external fixator/I&D History of colonoscopy History of esophagogastroduodenoscopy (EGD) History of tooth extraction History of wisdom tooth extraction S/P knee surgery remove fluid off right knee History of heart surgery (1983) VSD- age 3---no issues since surgery, no police guard Family History Father Cardiac disorder Mother No problems noted. Aunt Cardiac disorder Other No family history of adverse response to anesthesia Denies family history of Ovarian cancer Prostate cancer Myocardial infarction Breast cancer Colorectal cancer Social History Smoking Status: Never smoker Age Started Using Tobacco: 16; Age Quit Using Tobacco: 26; packs per day: 0.5; Second Hand Exposure: No; Do You Dip or Chew Tobacco: No; Tobacco Cessation Education Requested by Patient: No Hx Alcohol Use: Yes Alcohol type: beer Hx Substance Use: No Preferred Language: Icelandic Communication Ability: Effective Communication Ability Comment: poor historian Visual Impairment: No Limitations Hearing Ability: Normal Glass Glazier Required: No Beliefs That Will Affect Care: None marital status: Single Current Living Situation: Significant Other Current Living Situation Comment: stay with girlfriend current occupational status: employed current occupation: [employer] How many Children do You have: 0 Other Information That Helps Us Care for You: No Feels Safe at Home: Yes Safety Concerns: Feels Safe At This Time Dental Care, Regularly: Yes Physical Activity Frequency: 3-4 Times per Week Assistive Devices: Walker Review of Systems Review of Systems: As per HPI, all other systems reviewed and negative Physical Exam Physical Exam: GENERAL: uncomfortable, obese, no respiratory distress SKIN: Normal color, raised lesions over right upper arm and back (unknown duration as per patient), warm HEENT: [place] palpebral conjunctivae, no ptosis, dry buccal mucosa NECK : Supple, no tenderness CHEST : CTA, no tenderness HEART : Tachycardic, no obvious murmurs ABDOMEN: Some distention, minimal epigastric tenderness EXTREMITIES : Minimal LE swelling without tenderness, no other conspicuous deformities noted NEUROLOGIC : Coherent, no facial asymmetry, gait and stance not assessed Results & Data Results & Data Vital Signs (Past 12 Hours) Vital Signs Pulse Pulse Resp BP BP Pulse Ox O2 Del Method 09/01/24 21:10 122 H 124/102 H 09/01/24 21:00 108 H 18 124/102 H 99 Room Air 09/01/24 20:51 157 H 154/129 H 09/01/24 19:30 126 H 24 116/70 96 Room Air 09/01/24 19:13 126 H 09/01/24 19:11 Room Air 09/01/24 18:51 171 H 09/01/24 18:32 132 H 20 109/84 99 Room Air Laboratory Results Laboratory Results WBC 20.51 K/ul (4.8-10.8) H 09/01/24 18:45 RBC 6.89 M/uL (4.70-6.10) H 09/01/24 18:45 Hgb 19.9 g/dl (14.0-18.0) H 09/01/24 18:45 POC Hgb 17.3 g/dl (14.0-18.0) 09/01/24 20:40 Hct 60.1 % (42.0-52.0) H 09/01/24 18:45 POC Hct 51 % (42-52) 09/01/24 20:40 MCV 87.2 fL (80.0-100.0) 09/01/24 18:45 MCH 28.9 pg (25.0-34.0) 09/01/24 18:45 MCHC 33.1 g/dL (32.0-36.0) 09/01/24 18:45 RDW Std Deviation 41.3 fL (36.4-46.3) 09/01/24 18:45 RDW Coeff of Trevon 13.8 % (11.5-14.5) 09/01/24 18:45 Plt Count 259 K/uL (130-400) 09/01/24 18:45 MPV 12.7 fL (9.4-12.4) H 09/01/24 18:45 Neutrophils % (Manual) 90 % 09/01/24 18:45 Lymphocytes % (Manual) 6 % 09/01/24 18:45 Monocytes % (Manual) 4 % 09/01/24 18:45 Neutrophils # (Manual) 18.46 K/uL (1.40-6.50) H 09/01/24 18:45 Total Absolute Neuts 18.46 K/uL (1.4-6.5) H 09/01/24 18:45 Lymphocytes # (Manual) 1.23 K/uL (1.2-3.4) 09/01/24 18:45 Total Abs Lymphocytes 1.23 K/uL (1.2-3.4) 09/01/24 18:45 Monocytes # (Manual) 0.82 K/uL (0.11-0.59) H 09/01/24 18:45 RBC Morphology Unremarkable 09/01/24 18:45 PT 13.4 Seconds (9.0-12.0) H 09/01/24 20:01 INR 1.3 (0.9-1.1) H 09/01/24 20:01 APTT 28 Seconds (21-31) 09/01/24 20:01 PTT Ratio 1.0 09/01/24 20:01 Specimen Type Arterial 09/01/24 20:40 POC pH 7.13 (7.35-7.45) L* 09/01/24 20:40 POC pCO2 16 mmHg (35-46) L 09/01/24 20:40 POC pO2 120 mmHg (80-95) H 09/01/24 20:40 POC HCO3 5 sharmaine/L (19-24) L 09/01/24 20:40 POC Total CO2 6 mmol/L (24-31) L* 09/01/24 20:40 POC Base Excess -24.0 sharmaine/L (-9-1.8) L 09/01/24 20:40 POC ABG O2 Sat 97.0 % (90-95) H 09/01/24 20:40 VBG pH 7.11 (7.36-7.41) L 09/01/24 20:01 VBG pCO2 23 mmHg (38-50) L 09/01/24 19: VBG pO2 46 mmHg 09/01/24 19: VBG HCO3 7 mmol/L 09/01/24 19:23 VBG O2 Saturation 75.2 % 09/01/24 19:23 VBG Base Excess -21.9 mEq/L 09/01/24 19:23 POC Sodium 134 mmol/L (135-144) L 09/01/24 20:40 Sodium 142 mmol/L (136-145) 09/01/24 20:04 POC Potassium 5.6 mmol/L (3.3-5.0) H 09/01/24 20:40 Potassium 3.8 mmol/L (3.5-5.1) 09/01/24 20:04 POC Chloride 103 mmol/L (101-112) 09/01/24 18:52 Chloride 120 mmol/L (98-107) H 09/01/24 20:04 Carbon Dioxide 5 mmol/L (21-32) L* 09/01/24 20:04 POC Total CO2 9 mmol/L (24-31) L* 09/01/24 18:52 Anion Gap 17 (3-11) H 09/01/24 20:04 POC Anion Gap 32.0 mmol/L (16-25) H 09/01/24 18:52 POC BUN 30 mg/dl (7-18) H 09/01/24 18:52 BUN 19 mg/dl (6-23) 09/01/24 20:04 Creatinine 0.98 mg/dl (0.6-1.4) D 09/01/24 20:04 POC Creatinine 1.9 mg/dl (0.6-1.3) H 09/01/24 18:52 Est Cr Clr Drug Dosing 97.5 ml/min 09/01/24 20:04 eGFR 96.91 09/01/24 20:04 BUN/Creatinine Ratio 19.4 (10-20) 09/01/24 20:04 Glucose 309 mg/dl (70-99(Fasting)) H* 09/01/24 20:04 POC Glucose 239 mg/dl (70-99) H 09/01/24 23:21 POC Glucose (other) 510 mg/dl (70-99) H* 09/01/24 18:52 Calcium 4.4 mg/dl (8.6-10.3) L* D 09/01/24 20:04 POC Ioniz Calcium Kayla 1.10 mmol/l (1.12-1.32) L 09/01/24 18:52 Phosphorus 6.4 mg/dl (2.5-4.9) H 09/01/24 18:45 Magnesium 1.1 mg/dl (1.7-2.4) L 09/01/24 20:04 Total Bilirubin 0.9 mg/dl (0.2-1.0) 09/01/24 18:45 AST 15 U/L (13-39) 09/01/24 18:45 ALT 27 U/L (7-52) 09/01/24 18:45 Alkaline Phosphatase 141 U/L (34-104) H 09/01/24 18:45 Troponin I High Sens 28.8 pg/ml (0-20) H 09/01/24 20:04 C-Reactive Protein < 0.50 mg/dl (0-0.5) 09/01/24 20:04 B-Natriuretic Peptide 348 pg/ml (0-100) H 09/01/24 18:45 Total Protein 9.1 gm/dl (6.0-8.3) H 09/01/24 18:45 Albumin 6.4 gm/dl (3.4-5.0) H 09/01/24 18:45 Globulin 2.7 gm/dl (2.5-4.0) 09/01/24 18:45 Albumin/Globulin Ratio 2.4 (0.9-2) H 09/01/24 18:45 Lipase 183 U/L (11-82) H 09/01/24 18:45 Procalcitonin 0.18 ng/ml (0-0.5) 09/01/24 18:45 Urine Color Yellow 09/01/24 20:51 Urine Appearance Clear (Clear) 09/01/24 20:51 Urine pH 5.0 (4.5-7.5) 09/01/24 20:51 Ur Specific Ney 1.040 (1.000-1.030) H 09/01/24 20:51 Urine Protein 1+ (Negative) H 09/01/24 20:51 Urine Glucose (UA) 3+ (Negative) H 09/01/24 20:51 Urine Ketones 3+ (Negative) H 09/01/24 20:51 Urine Blood Negative (Negative) 09/01/24 20:51 Urine Nitrite Negative (Negative) 09/01/24 20:51 Urine Bilirubin Negative (Negative) 09/01/24 20:51 Urine Urobilinogen Negative (Negative) 09/01/24 20:51 Ur Leukocyte Esterase Negative (Negative) 09/01/24 20:51 Urine WBC (Auto) 0-5 /hpf (0-5) 09/01/24 20:51 Urine RBC (Auto) 0-2 /hpf (0-2) 09/01/24 20:51 U Hyaline Cast (Auto) 6-10 /lpf (0-2) H 09/01/24 20:51 U Epithel Cells (Auto) 0-2 /hpf (0-2) 09/01/24 20:51 Urine Bacteria (Auto) None Seen (None Seen) 09/01/24 20:51 Hyaline Casts Present /lpf (None Presnt) A 09/01/24 20:51 Urine Opiates Screen Neg (Neg) 09/01/24 20:51 Ur Methadone, Qual Neg (Neg) 09/01/24 20:51 Urine Fentanyl Screen Neg (Neg) 09/01/24 20:51 Urine Barbiturates Neg (Neg) 09/01/24 20:51 Ur Phencyclidine (PCP) Neg (Neg) 09/01/24 20:51 U Amphetamin/Meth Scrn Neg (Neg) 09/01/24 20:51 MDMA (Ecstasy) Screen Neg (Neg) 09/01/24 20:51 U Benzodiazepines Scrn Neg (Neg) 09/01/24 20:51 Ur Cocaine Metabolite Neg (Neg) 09/01/24 20:51 U Marijuana (THC) Screen Pos (Neg) H 09/01/24 20:51 Ethyl Alcohol mg/dL < 10.0 mg/dl (<10.0) 09/01/24 18:45 Impressions Abdomen/Pelvis CT 09/01/24 18:37 Exam(s): CT ABDOMEN + PELVIS With Contrast IV Amt: OPTIRAY [id number] 116ML EXAM: CT Abdomen and Pelvis With Intravenous Contrast CLINICAL HISTORY: vomiting. TECHNIQUE: Axial computed tomography images of the abdomen and pelvis with intravenous contrast. CTDI is 27.29 mGy and DLP is 847.05 mGy-cm. Automated exposure control was utilized for the study. A dose lowering technique was utilized adhering to the principles of ALARA. CONTRAST: Patient received OPTIRAY 320 116ML of IV contrast COMPARISON: CT abdomen and pelvis without contrast dated 06/12/2024 FINDINGS: Lung bases: Unremarkable. No mass. No consolidation. ABDOMEN: Liver: Unremarkable. No mass. Gallbladder and bile ducts: Unremarkable. No calcified stones. No ductal dilation. Pancreas: Unremarkable. No mass. No ductal dilation. Spleen: Stable presumed splenule medial to the spleen and posterior to the gastric fundus measuring 1.5 cm. Adrenals: Unremarkable. No mass. Kidneys and ureters: Unremarkable. No solid mass. No hydronephrosis. Stomach and bowel: The stomach is mildly fluid distended. No gastric mucosal thickening or retrograde distention of the distal thoracic esophagus. No evidence for bowel obstruction. No asymmetric mucosal abnormality. Mild stool burden. Scattered diverticulosis without definitive diverticulitis. PELVIS: Appendix: A normal caliber appendix is noted extending inferiorly from the cecum in the right lower quadrant. Bladder: Unremarkable. No mass. Reproductive: Unremarkable as visualized. ABDOMEN and PELVIS: Intraperitoneal space: Unremarkable. No free air. No significant fluid collection. Bones/joints: Similar multilevel degenerative changes throughout the thoracolumbar spine. No acute osseous abnormality. No dislocation. Soft tissues: Unremarkable. Vasculature: Unremarkable. No abdominal aortic aneurysm. Lymph nodes: Unremarkable. No enlarged lymph nodes. IMPRESSION: The stomach is mildly fluid distended. No gastric mucosal thickening or retrograde distention of the distal thoracic esophagus. No evidence for bowel obstruction. No asymmetric mucosal abnormality. Mild stool burden. Scattered diverticulosis without definitive diverticulitis. No free intraperitoneal fluid or pneumoperitoneum. Electronically signed by: Ayden Olmedo MD 09/01/24 20:37 PM Chest CTA 09/01/24 18:39 Exam(s): CTA CHEST IV Amt: OPTIRAY 320 116ML EXAM: CT Angiography Chest With Intravenous Contrast CLINICAL HISTORY: Evaluate for potential PE. TECHNIQUE: Axial computed tomographic angiography images of the chest with intravenous contrast. CTDI is 23.72 mGy and DLP is 1216.49 mGy-cm. Automated exposure control was utilized for the study. A dose lowering technique was utilized adhering to the principles of ALARA. MIP reconstructed images were created and reviewed. COMPARISON: CT chest without contrast dated 06/12/2024 FINDINGS: Pulmonary arteries: Attending for respiratory artifact, there is no definite evidence for pulmonary embolism. Aorta: The aorta is normal in caliber without dissection or aneurysm. Lungs: No focal airspace consolidation. Pleural space: Unremarkable. No significant effusion. No pneumothorax. Heart: Unremarkable. No cardiomegaly. No significant pericardial effusion. Mediastinum: Concentric mucosal thickening involving the distal thoracic esophagus. No evidence for obstruction or paraesophageal inflammatory changes. Bones/joints: No acute fracture. No dislocation. Soft tissues: Unremarkable. Lymph nodes: Unremarkable. No enlarged lymph nodes. IMPRESSION: 1. Attending for respiratory artifact, there is no definite evidence for pulmonary embolism. 2. Concentric mucosal thickening involving the distal thoracic esophagus. No evidence for obstruction or paraesophageal inflammatory changes. This was suggested on the previous CT examination but appears more prominent. Differential consideration includes advancing hypertrophic changes versus recurrent inflammatory or infectious esophagitis. 3. No focal airspace consolidation. No pleural effusion or pneumothorax. Electronically signed by: Ayden Olmedo MD 09/01/24 20:40 PM Diagnostic Findings EKG as per my interpretation : Rate 170, wide QRS tachycardia RAD, RBBB, inferior infarct, anteroseptal infarct (1) DKA (diabetic ketoacidosis) Diabetes mellitus complication detail: without coma Diabetes mellitus type: other specified (including REESE) Qualified Code(s): E13.10 - Other specified diabetes mellitus with ketoacidosis without coma
--- NOTE | 2024-09-01 23:32 | Critical Care Consultation ---
Date of Consultation September 01, 2024 Assessment & Plan (1) Atrial fibrillation with rapid ventricular response: (2) Acute dehydration: (3) Metabolic acidosis: (4) DKA (diabetic ketoacidosis): (5) Heart failure with improved ejection fraction (HFimpEF): (6) High anion gap metabolic acidosis: Plan Reason Critically Ill: 44 YOM presents with nausea/vomitting diarrhea. Found with elevated blood glucose, anion gap metabolic acidosis, multiple electrolyte abnormalities, and hypovolemia. ICU for correction of acid base status, electrolyte replacements, and insulin infusion. Neuro - Hx Anxiety/Depression, HX of ETOH misuse CAM ICU: Negative - Feels that his health issues are chronic and not getting any better and when "he feels unwell he doesn't feel like taking his medications because they are not helping" - Continue duloxetine- may be appropriate for psych consultation or outpatient consultation when acute problems are stabilized - AWWS ordered by admitting service Cardiac - QTC prolongation Aflutter on chronic anticoagulation, HTN, HLD, NICM cardiomyopathy, - HR and rythm at this time is likely complicated by volume status as well as electrolyte disturbances - IVF and oral hydration until AGAP improves - Replete magnesium ~2.0- this will also help with QT/QTc - Received doses of Metoprolol and Digoxin IV in EMD- Hold further rate control medications until euvolemia is obtained- BP is stable and he is without chest pain or dyspnea - Follow volume status with bedside POCUS and Urine output - Once volume status improved, add IV Lopressor 5mg IV q6 until able to tolerate PO - Hold Entresto until hemodynamics and renal function proven stable - Hold Xarelto overnight until clinical picture of GI involvement is more clear - Hold diuretics Respiratory - No acute needs at this time GI - Gastritis, nausea/vomiting, hx gastroparesis - Gastritis acute on chronic, likely acutely worsened from vomiting - Vomiting - CT abd/pelvis- no acute pathology noted- questionable history of gastroparesis- has declined miralax in the past as well as other treatment options - Tox screen positive for marijuana- may be hyperemesis from marijuana use as well - PPI BID IV - No hematemesis noted BUN also stable - Expect HGB to recalibrate when adequately resuscitated- low suspicion for GI bleeding at this time - Recent EGD 08/08/24- Biopsies at that time noted "mucosa with reactive changes consistent with GERD" - Lipase was mild elevated at 183- however more likely related to volume status than pancreatitis - He endorses no blood in emesis or diarrhea- stool culture pending - Antiemetics- hold further QT prolonging agents - will change Metoclopramide to IV 5mg now and could consider Diphenhydramine as well. RENAL/LYTES - High AGAP metabolic Acidosis, Multiple electrolyte disturbances, elevated lactate, BONILLA - Delta AG is < Delta HCO3- Gap + non Gap metabolic acidosis- - ketosis with not eating/drinking and DKA without taking insulin complicated by HCO3 loss through GI symptoms - will add on Tylenol and salicylate levels - ETOH <10 - BOINLLA likely secondary to hypovolemia- however will send serum osmo for osmolar gap- if worsening renal function as well as remaining severe acidosis consider fomepizole - As his glucose has responded quickly will add dextrose to ringers at this time- HCO3 is improved as well - continue supportive care - hydrate with crystalloid and oral intake - replete magnesium aggressively as well as follow potassium - trend lactate - No acute needs ENDO - DKA as above - this is most likely ketosis with hypovolemia and GI loss - expect to resolve rapidly- may need to decrease insulin infusion to 0.25-0.5 units/kg/hr HEME - No acute needs - labs at this time are hemoconcentrated- trend in morning - low suspicion for GI bleed or infectious etiology at this time ID - NO concern for infectious causes at this time- follow clinically LINES/IV ACCESS - Continue use of these lines DVT PROPHYLAXIS - SCDS, hold on chemoprophylaxis at this time evaluate in am - with likely ability to restart Xarelto DISPO: ICU until electrolytes and acid base status proven stable I have personally spent 40 minutes of critical care time in the direct manag ement of this patient. This is a life/limb threatening event. This includes time spent evaluating patient, direct bedside care, chart review, placing orders, interpretation of diagnostic studies, discussion with consultants, patient, and family members, as well as other required patient management activities. This time is exclusive of all separately billable procedures, and teaching time and separate from and in addition to any other critical care service time. Thank you for allowing us to participate in the care of this patient. Please refer to my attending physician's documentation for any further recommendations. Supervising Physician Co-Signing Physician Notes I have personally evaluated and examined this patient. I agree with assessment and plan of Enmanuel TONG. Gap closing, tolerating p.o., okay to restart anticoagulation History of Present Illness Reason for Consultation: Metabolic Acidosis Requesting Physician: Stu Dee Attending Physician: Stu Chavarria History of Present Illness 44 YOM with medical history of: DMII, HLD, HFrEF, PE , AFib/Aflutter (on Xarel to), HTN, Gastroparesis, GERD. Patient comes to the ER today for complaints of vomitting, loss of appetite, and painall over. He reports feeling so poorly that he was not taking his blood sugar at home or insulin or eating/drinking, and that he would have bouts of emesis then bouts of diarrhea at home. In the ER the patient had routine labs performed, CXR, ECG, CTA of chest and CT abdomen and pelvis. He was noted with multiple electrolyte disturbances, Glucose 450s, PH 7.0 with bicarb of 7. CT scans was without distinctive PE, but notes mucosal thickening of distal esophagus that "appears more prominent" when compared to previous. Abd/Pelvis was without fluid filled stomach, mild stool burden, no free air. EKG was with RBB and prolonged Qt/Qtc. He was given 1.5 L iters of Crystalloid, magnesium replacement started, antiemetics, and insulin drip. His glucose is now in goal range. He remains tachycardic with aflutter, adequate blood pressure, and metabolic acidosis. Patient will come to ICU for correction of acid base disturbance and electrolyte replacements. CODE: FULL Allergies Allergy/AdvReac Type Severity Reaction Status Date / Time semaglutide [From Ozempic] Allergy Unknown Hallucinati Verified 08/08/24 08:20 ng Sulfa (Sulfonamide Allergy Unknown ITCHY/HOT Verified 08/08/24 08:20 Antibiotics) metformin AdvReac Unknown Diarrhea Verified 08/08/24 08:20 morphine AdvReac Unknown Nausea Verified 08/08/24 08:20 Home Medications Medication Instructions Recorded Confirmed Type atorvastatin 40 mg tablet 40 mg PO QAM 06/23/21 09/01/24 History ezetimibe 10 mg tablet 10 mg PO QAM 02/09/24 09/01/24 History fenofibrate nanocrystallized 145 145 mg PO QAM 02/09/24 09/01/24 History mg tablet gabapentin 300 mg capsule 300 mg PO TID 02/09/24 09/01/24 History insulin glargine 100 unit/mL (3 20 unit subcut QAM 02/09/24 09/01/24 History mL) subcutaneous pen metoprolol succinate 50 mg 75 mg PO QAM 02/09/24 09/01/24 History tablet,extended release 24 hr rivaroxaban 20 mg tablet (Xarelto) 20 mg PO QDD 03/24/24 09/01/24 History cholecalciferol (vitamin D3) 1,250 1,250 mcg PO WK 06/12/24 09/01/24 History mcg (50,000 unit) capsule empagliflozin 10 mg tablet 10 mg PO QAM 06/12/24 09/01/24 History (Jardiance) pantoprazole 40 mg tablet,delayed 40 mg PO BID 06/12/24 09/01/24 History release triamcinolone acetonide 0.1 % 1 applic topical BID PRN Itching 06/12/24 09/01/24 History topical cream furosemide 20 mg tablet 20 mg PO UD PRN edema 07/30/24 09/01/24 History promethazine 6.25 mg/5 mL oral 6.25 mg PO AC gastroparesis 07/30/24 09/01/24 History syrup sacubitril 24 mg-valsartan 26 mg 0.5 tab PO BID 07/30/24 09/01/24 History tablet (Entresto) duloxetine 30 mg capsule,delayed 30 mg PO QAM 09/01/24 09/01/24 History release linaclotide 145 mcg capsule 145 mcg PO QDB 09/01/24 09/01/24 History magnesium citrate 120 ml PO DAILY PRN severe 09/01/24 09/01/24 History constipation metoclopramide HCl 10 mg tablet 10 mg PO TID 09/01/24 09/01/24 History spironolactone 25 mg tablet 25 mg PO QAM 09/01/24 09/01/24 History trazodone 50 mg tablet 50 mg PO HS 09/01/24 09/01/24 History Patient History Medical History Diabetes Non-ischemic cardiomyopathy denies Pleural effusion current problem "hear failure causes directly" - monitored by pcp. Denies change from baseline. Right bundle branch block pt doesn't know, reports: "not right now " when asked about hx of irregular heart beats. GERD (gastroesophageal reflux disease) pt not sure Hyperlipidemia HTN (hypertension) Poor historian History of renal failure yrs and yrs ago, pt doesn't know details surrounding. History of chest pain (05/2024) May 2024 pt reports felt like heart failure, not dx with anything. Admitted April or May 2024 [facility] ?. Pt poor historian. No re occurence of chest pain. History of congestive heart failure dx age 3 following heart sx. "doesn't ever go away" - monitored by pcp. History of DVT (deep vein thrombosis) early 2023. History of pulmonary embolism 04/2022 History of diabetic ketoacidosis April or May 2024 - [place]. Pt poor historian. 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 Aunt Cardiac disorder Other No family history of adverse response to anesthesia Denies family history of Ovarian cancer Prostate cancer Myocardial infarction Breast cancer Colorectal cancer Social History Smoking Status: Never smoker Age Started Using Tobacco: 16; Age Quit Using Tobacco: 26; packs per day: 0.5; Second Hand Exposure: No; Do You Dip or Chew Tobacco: No; Tobacco Cessation Education Requested by Patient: No Hx Alcohol Use: Yes Alcohol type: beer Hx Substance Use: No Preferred Language: Lao Communication Ability: Effective Communication Ability Comment: poor historian Visual Impairment: No Limitations Hearing Ability: Normal Office Specialist Required: No Beliefs That Will Affect Care: None marital status: Single Current Living Situation: Significant Other Current Living Situation Comment: stay with girlfriend current occupational status: employed current occupation: [employer] How many Children do You have: 0 Other Information That Helps Us Care for You: No Feels Safe at Home: Yes Safety Concerns: Feels Safe At This Time Dental Care, Regularly: Yes Physical Activity Frequency: 3-4 Times per Week Assistive Devices: Walker Review of Systems Review of Systems: REVIEW OF SYSTEMS: Constitutional: No fever, sweats or chills Eyes: No diplopia, no worsening or blurred vision ENT: normal hearing, no trouble swallowing Respiratory: No cough, sputum, dyspnea at rest or on exertion Cardiovascular: (+) palpitations, No chest pain, tightness or Abdomen: (+) pain, nausea, vomiting, diarrhea Musculoskeletal: (+) myalgias, no calf pain, swelling Neurologic: No weakness, numbness/tingling, or balance problems Psychiatric: (+) anxiety or depression Physical Exam Physical Exam: PHYSICAL EXAM: General: awake, alert, fatigued appearing Head: Normocephalic, atraumatic ENT: PERRLA, EOMI, no pharyngeal exudate, mucous membranes dry Neuro: AAO x 3, speech clear and appropriate, strength intact bilaterally 5/5, sensation intact and equal all extremities, no pronator drift Chest: equal rise and fall of the chest, no accessory muscle use, no heaves or thrills, Clear to auscultation, on room air, Cardiac: Regular rate and rhythm, telemetry reviewed, skin warm dry, cap refill <3 seconds, peripheral pusles +2 no JVD, no murmur, no JVD, no edema GI: NABS x 4 quadrants, soft, epigastric tenderness, no rebound, guarding : Spontaneously voiding, no pain, no CVA tenderness, Psych: anxious appearing Skin: salmon colored rash to chest and shoulders Results & Data Results & Data Vital Signs (Past 12 Hours) Vital Signs Pulse Pulse Resp BP BP Pulse Ox O2 Del Method 09/01/24 23:12 153 H 09/01/24 23:00 135 H 18 118/88 97 Room Air 09/01/24 22:48 128 H 21 95 09/01/24 22:03 126 H 19 96 09/01/24 21:51 118 H 20 94 09/01/24 21:10 122 H 124/102 H 09/01/24 21:03 120 H 21 95 09/01/24 21:00 108 H 18 124/102 H 99 Room Air 09/01/24 20:51 157 H 154/129 H 09/01/24 20:30 167 H 15 100 09/01/24 20:00 116 H 21 97 09/01/24 19:36 122 H 23 97 09/01/24 19:30 126 H 24 116/70 96 Room Air 09/01/24 19:13 126 H 09/01/24 19:12 126 H 21 96 09/01/24 19:11 Room Air 09/01/24 18:51 171 H 09/01/24 18:39 99 H 24 99 09/01/24 18:32 132 H 20 109/84 99 Room Air Laboratory Results Abnormal lab results 09/01/24 09/01/24 09/01/24 Range/Units 18:45 18:52 19:23 WBC 20.51 H (4.8-10.8) K/ul RBC 6.89 H (4.70-6.10) M/uL Hgb 19.9 H (14.0-18.0) g/dl POC Hgb 21.4 H* (14.0-18.0) g/dl Hct 60.1 H (42.0-52.0) % POC Hct 63 H* (42-52) % MPV 12.7 H (9.4-12.4) fL Neutrophils # (Manual) 18.46 H (1.40-6.50) K/uL Total Absolute Neuts 18.46 H (1.4-6.5) K/uL Monocytes # (Manual) 0.82 H (0.11-0.59) K/uL PT (9.0-12.0) Seconds INR (0.9-1.1) POC pH (7.35-7.45) POC pCO2 (35-46) mmHg POC pO2 (80-95) mmHg POC HCO3 (19-24) sharmaine/L POC Base Excess (-9-1.8) sharmaine/L POC ABG O2 Sat (90-95) % VBG pH 7.07 L (7.36-7.41) VBG pCO2 23 L (38-50) mmHg POC Sodium (135-144) mmol/L POC Potassium (3.3-5.0) mmol/L Chloride 93 L (98-107) mmol/L Carbon Dioxide 8 L* (21-32) mmol/L POC Total CO2 9 L* (24-31) mmol/L Anion Gap 37 H (3-11) POC Anion Gap 32.0 H (16-25) mmol/L POC BUN 30 H (7-18) mg/dl BUN 27 H (6-23) mg/dl Creatinine 2.05 H (0.6-1.4) mg/dl POC Creatinine 1.9 H (0.6-1.3) mg/dl Glucose 502 H* (70-99(Fasting)) mg/dl POC Glucose (70-99) mg/dl POC Glucose (other) 510 H* (70-99) mg/dl Calcium (8.6-10.3) mg/dl POC Ioniz Calcium Kayla 1.10 L (1.12-1.32) mmol/l Phosphorus 6.4 H (2.5-4.9) mg/dl Magnesium (1.7-2.4) mg/dl Alkaline Phosphatase 141 H (34-104) U/L Troponin I High Sens (0-20) pg/ml B-Natriuretic Peptide 348 H (0-100) pg/ml Total Protein 9.1 H (6.0-8.3) gm/dl Albumin 6.4 H (3.4-5.0) gm/dl Albumin/Globulin Ratio 2.4 H (0.9-2) Lipase 183 H (11-82) U/L Ur Specific [place] (1.000-1.030) Urine Protein (Negative) Urine Glucose (UA) (Negative) Urine Ketones (Negative) U Hyaline Cast (Auto) (0-2) /lpf Hyaline Casts (None Presnt) /lpf U Marijuana (THC) Screen (Neg) 09/01/24 09/01/24 09/01/24 Range/Units 20:01 20:04 20:17 WBC (4.8-10.8) K/ul RBC (4.70-6.10) M/uL Hgb (14.0-18.0) g/dl POC Hgb (14.0-18.0) g/dl Hct (42.0-52.0) % POC Hct (42-52) % MPV (9.4-12.4) fL Neutrophils # (Manual) (1.40-6.50) K/uL Total Absolute Neuts (1.4-6.5) K/uL Monocytes # (Manual) (0.11-0.59) K/uL PT 13.4 H (9.0-12.0) Seconds INR 1.3 H (0.9-1.1) POC pH (7.35-7.45) POC pCO2 (35-46) mmHg POC pO2 (80-95) mmHg POC HCO3 (19-24) sharmaine/L POC Base Excess (-9-1.8) sharmaine/L POC ABG O2 Sat (90-95) % VBG pH 7.11 L (7.36-7.41) VBG pCO2 (38-50) mmHg POC Sodium (135-144) mmol/L POC Potassium (3.3-5.0) mmol/L Chloride 120 H (98-107) mmol/L Carbon Dioxide 5 L* (21-32) mmol/L POC Total CO2 (24-31) mmol/L Anion Gap 17 H (3-11) POC Anion Gap (16-25) mmol/L POC BUN (7-18) mg/dl BUN (6-23) mg/dl Creatinine (0.6-1.4) mg/dl POC Creatinine (0.6-1.3) mg/dl Glucose 309 H* (70-99(Fasting)) mg/dl POC Glucose 425 H* (70-99) mg/dl POC Glucose (other) (70-99) mg/dl Calcium 4.4 L* D (8.6-10.3) mg/dl POC Ioniz Calcium Kayla (1.12-1.32) mmol/l Phosphorus (2.5-4.9) mg/dl Magnesium 1.1 L (1.7-2.4) mg/dl Alkaline Phosphatase (34-104) U/L Troponin I High Sens 28.8 H (0-20) pg/ml B-Natriuretic Peptide (0-100) pg/ml Total Protein (6.0-8.3) gm/dl Albumin (3.4-5.0) gm/dl Albumin/Globulin Ratio (0.9-2) Lipase (11-82) U/L Ur Specific [place] (1.000-1.030) Urine Protein (Negative) Urine Glucose (UA) (Negative) Urine Ketones (Negative) U Hyaline Cast (Auto) (0-2) /lpf Hyaline Casts (None Presnt) /lpf U Marijuana (THC) Screen (Neg) 09/01/24 09/01/24 09/01/24 Range/Units 20:40 20:51 21:22 WBC (4.8-10.8) K/ul RBC (4.70-6.10) M/uL Hgb (14.0-18.0) g/dl POC Hgb (14.0-18.0) g/dl Hct (42.0-52.0) % POC Hct (42-52) % MPV (9.4-12.4) fL Neutrophils # (Manual) (1.40-6.50) K/uL Total Absolute Neuts (1.4-6.5) K/uL Monocytes # (Manual) (0.11-0.59) K/uL PT (9.0-12.0) Seconds INR (0.9-1.1) POC pH 7.13 L* (7.35-7.45) POC pCO2 16 L (35-46) mmHg POC pO2 120 H (80-95) mmHg POC HCO3 5 L (19-24) sharmaine/L POC Base Excess -24.0 L (-9-1.8) sharmaine/L POC ABG O2 Sat 97.0 H (90-95) % VBG pH (7.36-7.41) VBG pCO2 (38-50) mmHg POC Sodium 134 L (135-144) mmol/L POC Potassium 5.6 H (3.3-5.0) mmol/L Chloride (98-107) mmol/L Carbon Dioxide (21-32) mmol/L POC Total CO2 6 L* (24-31) mmol/L Anion Gap (3-11) POC Anion Gap (16-25) mmol/L POC BUN (7-18) mg/dl BUN (6-23) mg/dl Creatinine (0.6-1.4) mg/dl POC Creatinine (0.6-1.3) mg/dl Glucose (70-99(Fasting)) mg/dl POC Glucose 365 H* (70-99) mg/dl POC Glucose (other) (70-99) mg/dl Calcium (8.6-10.3) mg/dl POC Ioniz Calcium Kayla (1.12-1.32) mmol/l Phosphorus (2.5-4.9) mg/dl Magnesium (1.7-2.4) mg/dl Alkaline Phosphatase (34-104) U/L Troponin I High Sens (0-20) pg/ml B-Natriuretic Peptide (0-100) pg/ml Total Protein (6.0-8.3) gm/dl Albumin (3.4-5.0) gm/dl Albumin/Globulin Ratio (0.9-2) Lipase (11-82) U/L Ur Specific [place] 1.040 H (1.000-1.030) Urine Protein 1+ H (Negative) Urine Glucose (UA) 3+ H (Negative) Urine Ketones 3+ H (Negative) U Hyaline Cast (Auto) 6-10 H (0-2) /lpf Hyaline Casts Present A (None Presnt) /lpf U Marijuana (THC) Screen Pos H (Neg) 09/01/24 09/01/24 09/01/24 Range/Units 22:23 23:21 23:32 WBC (4.8-10.8) K/ul RBC (4.70-6.10) M/uL Hgb (14.0-18.0) g/dl POC Hgb (14.0-18.0) g/dl Hct (42.0-52.0) % POC Hct (42-52) % MPV (9.4-12.4) fL Neutrophils # (Manual) (1.40-6.50) K/uL Total Absolute Neuts (1.4-6.5) K/uL Monocytes # (Manual) (0.11-0.59) K/uL PT (9.0-12.0) Seconds INR (0.9-1.1) POC pH (7.35-7.45) POC pCO2 (35-46) mmHg POC pO2 (80-95) mmHg POC HCO3 (19-24) sharmaine/L POC Base Excess (-9-1.8) sharmaine/L POC ABG O2 Sat (90-95) % VBG pH 7.19 L (7.36-7.41) VBG pCO2 30 L (38-50) mmHg POC Sodium (135-144) mmol/L POC Potassium (3.3-5.0) mmol/L Chloride (98-107) mmol/L Carbon Dioxide (21-32) mmol/L POC Total CO2 (24-31) mmol/L Anion Gap (3-11) POC Anion Gap (16-25) mmol/L POC BUN (7-18) mg/dl BUN (6-23) mg/dl Creatinine (0.6-1.4) mg/dl POC Creatinine (0.6-1.3) mg/dl Glucose (70-99(Fasting)) mg/dl POC Glucose 293 H 239 H (70-99) mg/dl POC Glucose (other) (70-99) mg/dl Calcium (8.6-10.3) mg/dl POC Ioniz Calcium Kayla (1.12-1.32) mmol/l Phosphorus (2.5-4.9) mg/dl Magnesium (1.7-2.4) mg/dl Alkaline Phosphatase (34-104) U/L Troponin I High Sens (0-20) pg/ml B-Natriuretic Peptide (0-100) pg/ml Total Protein (6.0-8.3) gm/dl Albumin (3.4-5.0) gm/dl Albumin/Globulin Ratio (0.9-2) Lipase (11-82) U/L Ur Specific [place] (1.000-1.030) Urine Protein (Negative) Urine Glucose (UA) (Negative) Urine Ketones (Negative) U Hyaline Cast (Auto) (0-2) /lpf Hyaline Casts (None Presnt) /lpf U Marijuana (THC) Screen (Neg) Diagnostic Findings Abdomen/Pelvis CT 09/01/24 18:37 Exam(s): CT ABDOMEN + PELVIS With Contrast IV Amt: OPTIRAY 320 116ML EXAM: CT Abdomen and Pelvis With Intravenous Contrast CLINICAL HISTORY: vomiting. TECHNIQUE: Axial computed tomography images of the abdomen and pelvis with intravenous contrast. CTDI is 27.29 mGy and DLP is 847.05 mGy-cm. Automated exposure control was utilized for the study. A dose lowering technique was utilized adhering to the principles of ALARA. CONTRAST: Patient received OPTIRAY 320 116ML of IV contrast COMPARISON: CT abdomen and pelvis without contrast dated 06/12/2024 FINDINGS: Lung bases: Unremarkable. No mass. No consolidation. ABDOMEN: Liver: Unremarkable. No mass. Gallbladder and bile ducts: Unremarkable. No calcified stones. No ductal dilation. Pancreas: Unremarkable. No mass. No ductal dilation. Spleen: Stable presumed splenule medial to the spleen and posterior to the gastric fundus measuring 1.5 cm. Adrenals: Unremarkable. No mass. Kidneys and ureters: Unremarkable. No solid mass. No hydronephrosis. Stomach and bowel: The stomach is mildly fluid distended. No gastric mucosal thickening or retrograde distention of the distal thoracic esophagus. No evidence for bowel obstruction. No asymmetric mucosal abnormality. Mild stool burden. Scattered diverticulosis without definitive diverticulitis. PELVIS: Appendix: A normal caliber appendix is noted extending inferiorly from the cecum in the right lower quadrant. Bladder: Unremarkable. No mass. Reproductive: Unremarkable as visualized. ABDOMEN and PELVIS: Intraperitoneal space: Unremarkable. No free air. No significant fluid collection. Bones/joints: Similar multilevel degenerative changes throughout the thoracolumbar spine. No acute osseous abnormality. No dislocation. Soft tissues: Unremarkable. Vasculature: Unremarkable. No abdominal aortic aneurysm. Lymph nodes: Unremarkable. No enlarged lymph nodes. IMPRESSION: The stomach is mildly fluid distended. No gastric mucosal thickening or retrograde distention of the distal thoracic esophagus. No evidence for bowel obstruction. No asymmetric mucosal abnormality. Mild stool burden. Scattered diverticulosis without definitive diverticulitis. No free intraperitoneal fluid or pneumoperitoneum. Electronically signed by: Ayden Olmedo MD 09/01/24 20:37 PM Chest CTA 09/01/24 18:39 Exam(s): CTA CHEST IV Amt: OPTIRAY 320 116ML EXAM: CT Angiography Chest With Intravenous Contrast CLINICAL HISTORY: Evaluate for potential PE. TECHNIQUE: Axial computed tomographic angiography images of the chest with intravenous contrast. CTDI is 23.72 mGy and DLP is 1216.49 mGy-cm. Automated exposure control was utilized for the study. A dose lowering technique was utilized adhering to the principles of ALARA. MIP reconstructed images were created and reviewed. COMPARISON: CT chest without contrast dated 06/12/2024 FINDINGS: Pulmonary arteries: Attending for respiratory artifact, there is no definite evidence for pulmonary embolism. Aorta: The aorta is normal in caliber without dissection or aneurysm. Lungs: No focal airspace consolidation. Pleural space: Unremarkable. No significant effusion. No pneumothorax. Heart: Unremarkable. No cardiomegaly. No significant pericardial effusion. Mediastinum: Concentric mucosal thickening involving the distal thoracic esophagus. No evidence for obstruction or paraesophageal inflammatory changes. Bones/joints: No acute fracture. No dislocation. Soft tissues: Unremarkable. Lymph nodes: Unremarkable. No enlarged lymph nodes. IMPRESSION: 1. Attending for respiratory artifact, there is no definite evidence for pulmonary embolism. 2. Concentric mucosal thickening involving the distal thoracic esophagus. No evidence for obstruction or paraesophageal inflammatory changes. This was suggested on the previous CT examination but appears more prominent. Differential consideration includes advancing hypertrophic changes versus recurrent inflammatory or infectious esophagitis. 3. No focal airspace consolidation. No pleural effusion or pneumothorax. Electronically signed by: Ayden Olmedo MD 09/01/24 20:40 PM Medications Administered Insulin Human Regular 250 (units/ Sodium Chloride) 250 mls @ 8.9 mls/hr IV .Q24H IVAN; Protocol Stop: 10/01/24 19:59 Last Titration: 09/01/24 23:27 Dose: 7.1 units/hr, 7.1 mls/hr Documented By: LINA Co-signed By: LITO Titration: 09/01/24 21:25 Dose: 8.9 units/hr, 8.9 mls/hr Documented By: KISHORE Co-signed By: ANU Admin: 09/01/24 20:22 Dose: 8.9 units/hr, 8.9 mls/hr Documented By: KISHORE Co-signed By: ANU Potassium Chloride (K David / Wtr) 10 meq in 100 mls @ 100 mls/hr IV Q1H IVAN Stop: 09/02/24 00:59 Last Admin: 09/01/24 22:58 Dose: 100 mls/hr Documented By: LITO Oxycodone HCl (Oxycodone Hcl Ir 5 Mg Tab (Immediate Release)) 5 mg PO Q4H PRN PRN Reason: Pain Stop: 09/15/24 20:42 Last Admin: 09/01/24 20:55 Dose: 5 mg Documented By: KISHORE Discontinued Medications Hydromorphone HCl (Hydromorphone Inj 0.5 Mg/0.5 Ml Syr) 0.5 mg IV Q15M PRN PRN Reason: Pain Stop: 09/15/24 18:36 Last Admin: 09/01/24 18:42 Dose: 0.5 mg Documented By: SJ Promethazine HCl (Phenergan) 25 mg in 51 mls @ 204 mls/hr IV NOW STA Stop: 09/01/24 18:51 Last Infusion: 09/01/24 19:10 Dose: Infused Documented By: Admin: 09/01/24 18:41 Dose: 204 mls/hr Documented By: SJ Sodium Chloride (Nss) 1,000 mls @ 999 mls/hr IV .Q1H1M ONE Stop: 09/01/24 19:54 Last Infusion: 09/01/24 20:21 Dose: Infused Documented By: Admin: 09/01/24 19:28 Dose: 999 mls/hr Documented By: KISHORE Piperacillin Sod/Tazobactam Sod (Zosyn) 4.5 gm in 100 mls @ 200 mls/hr IV NOW ONE; Protocol Stop: 09/01/24 20:33 Last Infusion: 09/01/24 21:02 Dose: Infused Documented By: Admin: 09/01/24 20:39 Dose: 200 mls/hr Documented By: KISHORE Thiamine HCl 100 mg/ Syringe 10 mls @ 2 mls/min IV 2037 STA Stop: 09/01/24 20:41 Last Admin: 09/01/24 21:06 Dose: 2 mls/min Documented By: KISHORE Lactated Ringer's (Lr) 250 mls @ 500 mls/hr IV .Q30M ONE Stop: 09/01/24 21:10 Last Admin: 09/01/24 21:18 Dose: Not Given Documented By: KISHORE Lactated Ringer's (Lr) 500 mls @ 999 mls/hr IV .Q31M ONE Stop: 09/01/24 21:13 Last Admin: 09/01/24 20:57 Dose: 999 mls/hr Documented By: KISHORE Magnesium Sulfate/Dextrose (Magnesium Sulfate / D5w) 1 gm in 100 mls @ 50 mls/hr IV Q2H IVAN Stop: 09/02/24 04:59 Last Admin: 09/01/24 21:35 Dose: 50 mls/hr Documented By: KISHORE Lactated Ringer's (Lr) 250 mls @ 500 mls/hr IV .Q30M ONE Stop: 09/01/24 22:29 Last Infusion: 09/01/24 21:26 Dose: Infused Documented By: Admin: 09/01/24 21:02 Dose: 500 mls/hr Documented By: KISHORE Pantoprazole Sodium (Protonix) 40 mg in 10 mls @ 5 mls/min IV NOW ONE Stop: 09/01/24 21:01 Last Admin: 09/01/24 21:31 Dose: 5 mls/min Documented By: KISHORE Digoxin 250 mcg/ Syringe 10 mls @ 2 mls/min IV NOW STA Stop: 09/01/24 23:07 Last Admin: 09/01/24 23:33 Dose: 2 mls/min Documented By: LINA Insulin Aspart (Insulin Aspart Per Unit Charge) 0 units SC ACHS IVAN Stop: 10/01/24 20:59 Last Admin: 09/01/24 21:18 Dose: Not Given Documented By: KISHORE Co-signed By: ANU Metoprolol Tartrate (Metoprolol Tartrate 1 Mg/Ml Vial) 2.5 mg IV NOW STA Stop: 09/01/24 20:42 Last Admin: 09/01/24 20:51 Dose: 2.5 mg Documented By: KISHORE Miscellaneous (Dka Goal Range 150-250 Mg/Dl) 1 each N/A ONE ONE Stop: 09/01/24 19:51 Last Admin: 09/01/24 21:03 Dose: Not Given Documented By: KISHORE Ondansetron HCl (Ondansetron Inj 2 Mg/Ml 2 Ml Vial) 4 mg IV NOW STA Stop: 09/01/24 20:32 Last Admin: 09/01/24 20:33 Dose: 4 mg Documented By: KISHORE Potassium Chloride (Potassium Chloride Crtab 20 Meq Tabcr) 40 meq PO NOW STA Stop: 09/01/24 20:53 Last Admin: 09/01/24 21:14 Dose: 40 meq Documented By: EMB ECG Additional Comments: Atrial fibrillationwith rapid ventricular response Right bundle branch block Inferior infarct, age undetermined Abnormal ECG When compared with ECG [id number] 18:52,(unconfirmed) Atrial fibrillationhas replacedWide QRS tachycardia Coding Level of Care Code 04827 CRITICAL CARE 1ST 30-74M Diagnoses Atrial fibrillation with rapid ventricular response I48.91 Acute dehydration E86.0 Metabolic acidosis E87.20 DKA (diabetic ketoacidosis) E13.10 Diabetes mellitus complication detail: without coma Diabetes mellitus type: other specified (including REESE) Heart failure with improved ejection fraction (HFimpEF) I50.32 High anion gap metabolic acidosis E87.29 (4) DKA (diabetic ketoacidosis) Diabetes mellitus complication detail: without coma Diabetes mellitus type: other specified (including REESE) Qualified Code(s): E13.10 - Other specified diabetes mellitus with ketoacidosis without coma
[2024-09-01] MEDS: DIGOXIN 250 MCG in SYRINGE 9 ML IV STA (23:33)
[2024-09-01 23:58] LABS: Base Excess VBG -15.4 mEq/L; HCO3 VBG 12 mmol/L; Oxygen Saturation VBG 62.9 %; PCO2 VBG 30 mmHg (38-50); PO2 VBG 35 mmHg; pH VBG 7.19 (7.36-7.41)
[2024-09-02 00:17] LABS: Hematocrit (blood only) 54.7 % (42.0-52.0); Hemoglobin 18.8 g/dl (14.0-18.0)
[2024-09-02 00:22] LABS: Calcium 9.4 mg/dl (8.6-10.3); Potassium 4.5 mmol/L (3.5-5.1)
[2024-09-02] MEDS: POTASSIUM CHLORIDE 20 MEQ in D5W AND LACTATED RINGERS 1,000 ML IV SCH (00:35)
[2024-09-02] MEDS: MAGNESIUM SULFATE / D5W 1 GM/100 ML BAG IV SCH (00:35)
[2024-09-02] MEDS: LACTATED RINGER'S 500 ML IV ONE (01:00)
[2024-09-02] MEDS: GABAPENTIN 300 MG CAP PO SCH (01:01)
[2024-09-02] MEDS: traZODone HCL 50 MG TAB PO SCH (01:01)
[2024-09-02 02:28] LABS: Acetaminophen < 3 ug/ml (10-30); Salicylate < 3.0 mg/dl (3.0-30)
[2024-09-02] MEDS: METOCLOPRAMIDE HCL INJ 5 MG/ML 2 ML VIAL IV ONE (02:35)
[2024-09-02 03:33] LABS: Base Excess VBG -11.3 mEq/L; HCO3 VBG 14 mmol/L; Oxygen Saturation VBG 80.5 %; PCO2 VBG 30 mmHg (38-50); PO2 VBG 47 mmHg; pH VBG 7.28 (7.36-7.41)
[2024-09-02 03:42] LABS: Basophils # (auto) 0.01 K/uL (0.00-0.20); Basophils % (auto) 0.1 %; Eosinophils # (auto) 0.01 K/uL (0.00-0.50); Eosinophils % (auto) 0.1 %; Hematocrit (blood only) 47.3 % (42.0-52.0); Hemoglobin 16.3 g/dl (14.0-18.0); Immature Granulocytes # (auto) 0.09 K/uL (0.01-0.20); Immature Granulocytes % (auto) 0.5 %; Lymphocytes % (auto) 6.1 %; Mean Corpuscular Hemoglobin 28.6 pg (25.0-34.0); Mean Corpuscular Hgb Conc 34.5 g/dL (32.0-36.0); Mean Platelet Volume 11.1 fL (9.4-12.4); Monocytes # (auto) 1.28 K/uL (0.11-0.59); Monocytes % (auto) 7.8 %; Neutrophils # (auto) 14.05 K/uL (1.40-6.50); Neutrophils % (auto) 85.4 %; Platelet Count 215 K/uL (130-400); RDW Coefficient of Variation 12.9 % (11.5-14.5); RDW Standard Deviation 39.4 fL (36.4-46.3); White Blood Count 16.44 K/ul (4.8-10.8)
[2024-09-02 03:56] LABS: Anion Gap 15 (3-11); BUN Creatinine Ratio 17.6 (10-20); Blood Urea Nitrogen 23 mg/dl (6-23); Calcium 8.8 mg/dl (8.6-10.3); Carbon Dioxide 15 mmol/L (21-32); Chloride 106 mmol/L (98-107); Glucose 209 mg/dl (70-99(Fasting)); Sodium 136 mmol/L (136-145)
[2024-09-02 04:19] LABS: Magnesium 3.9 mg/dl (1.7-2.4)
[2024-09-02] MEDS: METOPROLOL TARTRATE 1 MG/ML VIAL IV STA ×2 (04:45→11:52)
[2024-09-02] MEDS ORDERED: METOPROLOL TARTRATE 1 MG/ML VIAL IV PRN (05:13)
[2024-09-02 05:16] LABS: Phosphorus < 1.0 mg/dl (2.5-4.9)
[2024-09-02] MEDS ORDERED: SODIUM PHOSPHATE 3 MMOL/1 ML INFUSION IV STA (05:19)
[2024-09-02] MEDS: SODIUM PHOSPHATE 21 MMOL in DEXTROSE 5% 500 ML IV ONE (05:57)
[2024-09-02 07:28] LABS: Estimated Average Glucose 229 mg/dl; Hemoglobin A1C 9.6 % (4.5-5.6)
[2024-09-02] MEDS ORDERED: ICU Protocol for HYPERglycemia SCH (07:30)
[2024-09-02 07:39] LABS: Base Excess VBG -6.2 mEq/L; HCO3 VBG 19 mmol/L; Oxygen Saturation VBG 72.6 %; PCO2 VBG 36 mmHg (38-50); PO2 VBG 40 mmHg; pH VBG 7.33 (7.36-7.41)
[2024-09-02 08:02] LABS: BUN Creatinine Ratio 18.2 (10-20); Calcium 8.8 mg/dl (8.6-10.3); Creatinine Clr Calc Pharmacy 79.1 ml/min
[2024-09-02] MEDS: METOPROLOL SUCC 25MG EXT REL TAB PO SCH (08:42)
[2024-09-02] MEDS: FOLIC ACID 1 MG TAB PO SCH (08:42)
[2024-09-02] MEDS: FENOFIBRATE NANOCRYSTALLIZED 145 MG TABLET PO SCH (08:42)
[2024-09-02] MEDS: THIAMINE HCL 100 MG TAB PO SCH (08:42)
[2024-09-02] MEDS: DULoxetine HCL 30 MG CAP PO SCH (08:42)
[2024-09-02] MEDS: ATORVASTATIN 40 MG TAB PO SCH (08:42)
[2024-09-02] MEDS: METOCLOPRAMIDE HCL 10 MG TABLET PO SCH (08:42)
[2024-09-02] MEDS: MULTIVITAMIN TAB PO SCH (08:42)
[2024-09-02] MEDS: EZETIMIBE 10 MG TAB PO SCH (08:43)
[2024-09-02] MEDS: VALSARTAN/SACUBITRIL 26/24MG TAB PO SCH (08:43)
[2024-09-02] MEDS: PANTOprazole 40 MG/10 ML SYR IV SCH (08:45)
[2024-09-02] MEDS: LANTUS PER UNIT CHARGE SC STA (09:40)
[2024-09-02 11:39] LABS: Base Excess VBG -2.4 mEq/L; HCO3 VBG 22 mmol/L; Oxygen Saturation VBG 65.3 %; PCO2 VBG 35 mmHg (38-50); PO2 VBG 33 mmHg
[2024-09-02 12:04] LABS: BUN Creatinine Ratio 16.7 (10-20); Calcium 9.3 mg/dl (8.6-10.3); Creatinine Clr Calc Pharmacy 88.7 ml/min; Potassium 4.6 mmol/L (3.5-5.1)
--- NOTE | 2024-09-02 13:04 | Hospitalist Progress Note ---
Date of Service September 02, 2024 Assessment & Plan (1) DKA (diabetic ketoacidosis): Plan: DM 2 insulin requiring, suboptimal control as of recent hemoglobin A1c of 7.9 last June 2024 Has not been taking his insulin for for the last few days and not checking his blood sugar Complains to have ongoing abdominal discomfort with nausea vomiting for the last few weeks Noted to have DKA with high anion gap metabolic acidosis Has been getting intravenous insulin and remains him n.p.o. Appreciate music rehabilitation therapist and glycemic pharmacist input and recommendation Gradually getting better (2) Atrial fibrillation with rapid ventricular response: Plan: Recurrent atrial flutter secondary to illness chronic diastolic heart failure (EF 50 to 55%, TTE 2023), patient on the dry side History congenital heart surgery Presented with A-fib with RVR- Rate remains elevated and will continue current medications (3) Gastroparesis due to DM: Plan: Has history of gastroparesis secondary to diabetes Recent EGD showed esophagitis and the CAT scan of the abdomen and pelvis has been showing esophageal thickening UGIB likely secondary to nausea vomiting symptoms from DKA, history esophagitis, history of GERD/gastroparesis, paroxysmal atrial flutter/unprovoked PE status post Xarelto, patient hemoglobin currently stable likely secondary to hemoconcentration No episodes of coffee-ground emesis Has been getting Protonix (4) Esophagitis: (5) Alcohol abuse: Plan: History of alcohol abuse Will observe for any withdrawal symptoms (6) HTN (hypertension): (7) GERD (gastroesophageal reflux disease): Plan DVT prophylaxis. SCDs re: GI bleed Will start subcu heparin Full code Admission and Anticipated Discharge Date Admission Date: September 01, 2024 Subjective 09/02/2024 The patient was seen and examined in ICU He has been complaining of epigastric/abdominal discomfort with ongoing nausea and vomiting He denies any fever and or chills and does not have any cough or any phlegm Denies any palpitation though heart rate remains at around 141 and no chest pain Review of Systems Review of Systems: all systems reviewed and are unremarkable except as noted below Physical Exam Physical Exam: Sitting on bed with acute distress due to nausea and abdominal discomfort Constitutional: well developed, well nourished, + ill appearing and + obese Eyes: PERRL, conjunctivae normal, anicteric sclerae ENMT: external ear and nose normal, oropharynx normal Neck: trachea midline, no thyromegaly Respiratory: no respiratory distress Auscultation: lungs clear to auscultation bilaterally Cardiovascular: Rate/Rhythm: regular rate, regular rhythm and + tachycardic Heart Sounds: normal S1 and normal S2; no murmur Extremities: no edema Gastrointestinal (Abdomen): Inspection/Auscultation: normal bowel sounds; abdomen not distended Percussion/Palpation: + abdomen tender ( in the epigastrium) Musculoskeletal: no acute arthritis involving any of the joint Neurologic: normal touch/pain/proprioception and moves all extremities; no focal motor deficits Lymphatic: no cervical or axillary lymphadenopathy Results & Data Results & Data Vital Signs (Past 12 Hours) Vital Signs Temp Pulse Pulse Resp BP BP Pulse Ox 09/02/24 12:15 141 H 121/79 09/02/24 11:52 146 H 114/89 09/02/24 08:00 09/02/24 08:00 121 H 09/02/24 08:00 09/02/24 07:00 36.8 C 138 H 20 100/71 97 09/02/24 06:03 121 H 19 101/75 91 09/02/24 05:06 119 H 24 124/80 86 L 09/02/24 05:00 117 H 124/78 09/02/24 04:45 150 H 120/89 09/02/24 04:00 142 H 16 112/84 94 09/02/24 04:00 36.9 C 09/02/24 03:06 150 H 19 113/73 92 09/02/24 02:09 147 H 17 120/89 94 O2 Del Method 09/02/24 12:15 09/02/24 11:52 09/02/24 08:00 Room Air 09/02/24 08:00 09/02/24 08:00 Room Air 09/02/24 07:00 Room Air 09/02/24 06:03 09/02/24 05:06 09/02/24 05:00 09/02/24 04:45 09/02/24 04:00 09/02/24 04:00 09/02/24 03:06 09/02/24 02:09 Laboratory Results Short CBC 09/01/24 09/01/24 09/02/24 Range/Units 18:45 23:32 03:21 WBC 20.51 H 16.44 H (4.8-10.8) K/ul Hgb 19.9 H 18.8 H 16.3 (14.0-18.0) g/dl Hct 60.1 H 54.7 H 47.3 (42.0-52.0) % Plt Count 259 215 (130-400) K/uL BMP 09/01/24 09/01/24 09/01/24 18:45 20:04 23:32 Sodium 138 142 141 Potassium 4.3 3.8 4.5 Chloride 93 L 120 H 104 Carbon Dioxide 8 L* 5 L* 11 L BUN 27 H 19 26 H Creatinine 2.05 H 0.98 D 1.62 H D Glucose 502 H* 309 H* 232 H Calcium 10.0 4.4 L* D 9.4 D 09/02/24 09/02/24 09/02/24 03:21 07:29 11:30 Sodium 136 140 140 Potassium 5.0 5.0 4.6 Chloride 106 110 H 108 H Carbon Dioxide 15 L 20 L 22 BUN 23 22 18 Creatinine 1.31 D 1.21 1.08 Glucose 209 H 173 H 148 H Calcium 8.8 8.8 9.3 Liver Function 09/01/24 Range/Units 18:45 Total Bilirubin 0.9 (0.2-1.0) mg/dl AST 15 (13-39) U/L ALT 27 (7-52) U/L Alkaline Phosphatase 141 H (34-104) U/L Albumin 6.4 H (3.4-5.0) gm/dl Urine 09/01/24 Range/Units 20:51 Urine Color Yellow Urine Appearance Clear (Clear) Urine pH 5.0 (4.5-7.5) Ur Specific Alexander 1.040 H (1.000-1.030) Urine Protein 1+ H (Negative) Urine Glucose (UA) 3+ H (Negative) Medications Administered Current Inpatient Medications Acetaminophen (Acetaminophen 325 Mg Tab) 650 mg PO QID PRN PRN Reason: pain/fever Stop: 10/01/24 23:04 Atorvastatin Calcium (Atorvastatin 40 Mg Tab) 40 mg PO QAM [facility] Stop: 10/02/24 08:59 Last Admin: 09/02/24 08:42 Dose: 40 mg Dextrose (Dextrose 50% 50 Ml Syringe) 25 - 50 ml IV UD PRN; Protocol PRN Reason: Hypoglycemia Protocol Stop: 10/01/24 19:44 Duloxetine HCl (Duloxetine Hcl 30 Mg Cap) 30 mg PO QAM [facility] Stop: 10/02/24 08:59 Last Admin: 09/02/24 08:42 Dose: 30 mg Ezetimibe (Ezetimibe 10 Mg Tab) 10 mg PO QAM [facility] Stop: 10/02/24 08:59 Last Admin: 09/02/24 08:43 Dose: 10 mg Fenofibrate (Fenofibrate Nanocrystallized 145 Mg Tablet) 145 mg PO QAM [facility] Stop: 10/02/24 08:59 Last Admin: 09/02/24 08:42 Dose: 145 mg Folic Acid (Folic Acid 1 Mg Tab) 1 mg PO QAM [facility] Stop: 10/02/24 08:59 Last Admin: 09/02/24 08:42 Dose: 1 mg Gabapentin (Gabapentin 300 Mg Cap) 300 mg PO TID [facility] Stop: 10/01/24 23:24 Last Admin: 09/02/24 08:44 Dose: 300 mg Glucagon (Glucagon For Inj 1 Mg Vial) 1 mg SQ UD PRN; Protocol PRN Reason: Hypoglycemia Protocol Stop: 10/01/24 19:44 Glucose (Glucose 40% Gel 15 Gm Tube) 15 - 30 gm PO UD PRN; Protocol PRN Reason: Hypoglycemia Protocol Stop: 10/01/24 19:44 Glucose (Glucose 10 Tab/Tube) 4 - 8 tab PO UD PRN; Protocol PRN Reason: Hypoglycemia Protocol Stop: 10/01/24 19:44 Insulin Human Regular 250 (units/ Sodium Chloride) 250 mls @ 3.7 mls/hr IV .Q24H IVAN; Protocol Stop: 10/01/24 19:59 Last Titration: 09/02/24 11:30 Dose: 3.7 units/hr, 3.7 mls/hr Pantoprazole Sodium (Protonix) 40 mg in 10 mls @ 5 mls/min IV BID [facility] Stop: 10/02/24 08:59 Last Admin: 09/02/24 08:45 Dose: 5 mls/min Insulin Aspart (Insulin Aspart Per Unit Charge) 0 units SC ACHS [facility] Stop: 10/01/24 20:59 Last Admin: 09/02/24 11:51 Dose: 10 units Lorazepam (Lorazepam 2 Mg/1 Ml Vial) 1 mg IV ONE PRN; Protocol PRN Reason: EtoH Withdrawal AWSS 6-10 Lorazepam (Lorazepam 0.5 Mg Tab) 0.5 mg PO TID PRN PRN Reason: Anxiety Stop: 10/01/24 23:21 Metoclopramide HCl (Metoclopramide Hcl 10 Mg Tablet) 10 mg PO TID [facility] Stop: 10/02/24 08:59 Last Admin: 09/02/24 08:42 Dose: 10 mg Metoprolol Succinate (Metoprolol Succ 25mg Ext Rel Tab) 75 mg PO QAM [facility] Stop: 10/02/24 08:59 Last Admin: 09/02/24 08:42 Dose: 75 mg Metoprolol Tartrate (Metoprolol Tartrate 1 Mg/Ml Vial) 5 mg IV Q2H PRN PRN Reason: HR > 110 Stop: 10/02/24 05:12 Miscellaneous (Carbohydrates For Hypoglycemia ) 15 - 30 gm PO UD PRN PRN Reason: Hypoglycemia Protocol Stop: 10/01/24 19:44 Multivitamins (Multivitamin Tab) 1 tab PO QAM [facility] Stop: 10/02/24 08:59 Last Admin: 09/02/24 08:42 Dose: 1 tab Oxycodone HCl (Oxycodone Hcl Ir 5 Mg Tab (Immediate Release)) 5 mg PO Q4H PRN PRN Reason: Pain Stop: 09/15/24 20:42 Last Admin: 09/01/24 20:55 Dose: 5 mg Rivaroxaban (Rivaroxaban 20 Mg Tab) 20 mg PO QDD [facility] Stop: 10/02/24 16:29 Sacubitril/Valsartan (Valsartan/Sacubitril 26/24mg Tab) 0.5 tab PO BID [facility] Stop: 10/02/24 08:59 Last Admin: 09/02/24 08:43 Dose: 0.5 tab Thiamine HCl (Thiamine Hcl 100 Mg Tab) 100 mg PO QAM [facility] Stop: 10/02/24 08:59 Last Admin: 09/02/24 08:42 Dose: 100 mg Trazodone HCl (Trazodone Hcl 50 Mg Tab) 50 mg PO HS [facility] Stop: 10/01/24 23:24 Last Admin: 09/02/24 01:01 Dose: 50 mg (1) DKA (diabetic ketoacidosis) Diabetes mellitus complication detail: without coma Diabetes mellitus type: other specified (including REESE) Qualified Code(s): E13.10 - Other specified diabetes mellitus with ketoacidosis without coma
[2024-09-02] MEDS: RIVAROXABAN 20 MG TAB PO SCH (16:51)
[2024-09-02] MEDS: INSULIN ASPART PER UNIT CHARGE SC SCH (16:53)
[2024-09-02] MEDS: POLYETHYLENE (MIRALAX) 17 GM PACK PO PRN (18:25)
--- NOTE | 2024-09-03 07:24 | Critical Care Progress Note ---
Date of Service September 03, 2024 Assessment & Plan (1) Atrial fibrillation with rapid ventricular response: (2) Acute dehydration: (3) Metabolic acidosis: (4) DKA (diabetic ketoacidosis): (5) Heart failure with improved ejection fraction (HFimpEF): (6) High anion gap metabolic acidosis: Plan Reason Critically Ill: 44 YOM presents with nausea/vomitting diarrhea. Found with elevated blood glucose, anion gap metabolic acidosis, multiple electrolyte abnormalities, and hypovolemia. ICU for correction of acid base status, electrolyte replacements, and insulin infusion. Neuro - Hx Anxiety/Depression, HX of ETOH misuse CAM ICU: Negative - Feels that his health issues are chronic and not getting any better and when "he feels unwell he doesn't feel like taking his medications because they are not helping" - Continue duloxetine- may be appropriate for psych consultation or outpatient consultation when acute problems are stabilized - AWWS ordered by admitting service Cardiac - Aflutter on chronic anticoagulation, HTN, HLD, NICM cardiomyopathy, -Atrial flutter with rapid ventricular response: Resolved -On baseline metoprolol -On Xarelto systemic anticoagulation Respiratory - No acute needs at this time GI - Gastritis, nausea/vomiting, hx gastroparesis - Gastritis acute on chronic, likely acutely worsened from vomiting - Vomiting - improved - Tox screen positive for marijuana- may be hyperemesis from marijuana use as well - PPI BID IV - Recent EGD 08/08/24- Biopsies at that time noted "mucosa with reactive changes consistent with GERD" RENAL/LYTES - High AGAP metabolic Acidosis: Resolved - BONILLA: Resolved - No acute needs ENDO - DKA as above: Resolved HEME - No acute needs ID - NO concern for infectious causes at this time- follow clinically LINES/IV ACCESS - Continue use of these lines DVT PROPHYLAXIS - SCDS, systemic anticoagulation with Xarelto DISPO: Stable for downgrade out of ICU Admission and Anticipated Discharge Date Admission Date: September 01, 2024 Subjective Reports feels generally ill however this is an improvement compared to yesterday. Reports as he recovers from these episodes he now experiences difficulty sleeping normally takes melatonin during these time frames. Still complaining of moderate constipation. Physical Exam Physical Exam: General: Alert. nontoxic. Skin: Warm, dry, Head: Atraumatic Ears, nose, mouth and throat: airway patent Cardiovascular: Normal peripheral perfusion, normal sinus rhythm on manager monitoring Respiratory: no respiratory distress Gastrointestinal: Non distended Musculoskeletal: No deformity Results & Data Results & Data Vital Signs (Past 12 Hours) Vital Signs Temp Pulse Pulse Resp BP BP Pulse Ox 09/03/24 06:23 79 15 133/71 94 09/03/24 05:03 87 17 110/72 91 09/03/24 04:00 84 16 108/83 92 09/03/24 04:00 36.9 C 09/03/24 03:00 87 19 97/71 L 90 09/03/24 02:03 86 16 100/62 92 09/03/24 01:00 92 H 19 95/66 L 89 L 09/03/24 00:06 85 3 L 119/81 94 09/03/24 00:00 36.9 C 09/03/24 00:00 89 09/02/24 23:24 91 H 18 121/82 93 09/02/24 22:12 102 H 19 125/80 92 09/02/24 21:06 96 H 18 125/86 94 09/02/24 20:15 95 H 1 L 130/94 95 09/02/24 20:00 36.9 C O2 Del Method 09/03/24 06:23 Room Air 09/03/24 05:03 09/03/24 04:00 09/03/24 04:00 09/03/24 03:00 09/03/24 02:03 09/03/24 01:00 09/03/24 00:06 09/03/24 00:00 09/03/24 00:00 09/02/24 23:24 09/02/24 22:12 09/02/24 21:06 09/02/24 20:15 09/02/24 20:00 Critical Care Results & Data Vital Signs (Past 12 Hours) Vital Signs Temp Pulse Pulse Resp BP BP Pulse Ox 09/03/24 06:23 79 15 133/71 94 09/03/24 05:03 87 17 110/72 91 09/03/24 04:00 84 16 108/83 92 09/03/24 04:00 36.9 C 09/03/24 03:00 87 19 97/71 L 90 09/03/24 02:03 86 16 100/62 92 09/03/24 01:00 92 H 19 95/66 L 89 L 09/03/24 00:06 85 3 L 119/81 94 09/03/24 00:00 36.9 C 09/03/24 00:00 89 09/02/24 23:24 91 H 18 121/82 93 09/02/24 22:12 102 H 19 125/80 92 09/02/24 21:06 96 H 18 125/86 94 09/02/24 20:15 95 H 1 L 130/94 95 09/02/24 20:00 36.9 C O2 Del Method 09/03/24 06:23 Room Air 09/03/24 05:03 09/03/24 04:00 09/03/24 04:00 09/03/24 03:00 09/03/24 02:03 09/03/24 01:00 09/03/24 00:06 09/03/24 00:00 09/03/24 00:00 09/02/24 23:24 09/02/24 22:12 09/02/24 21:06 09/02/24 20:15 09/02/24 20:00 Lab & Micro Results (Past 24 Hours) No Data to Display Na 140 mmol/L (136-145) 09/02/24 K 4.6 mmol/L (3.5-5.1) 09/02/24 Cl 108 mmol/L (98-107) H 09/02/24 CO2 22 mmol/L (21-32) 09/02/24 Anion Gap 10 (3-11) 09/02/24 BUN 18 mg/dl (6-23) 09/02/24 Creatinine 1.08 mg/dl (0.6-1.4) 09/02/24 BUN/Creatinine Ratio 16.7 (10-20) 09/02/24 Glu 148 mg/dl (70-99(Fasting)) H 09/02/24 Ca 9.3 mg/dl (8.6-10.3) 09/02/24 Calcium Level 9.3 mg/dl (8.6-10.3) 09/02/24 11:30 Venous Blood pH 7.40 (7.36-7.41) 09/02/24 11:30 Venous Blood Partial Pressure CO2 35 mmHg (38-50) L 09/02/24 11 :30 Venous Blood Partial Pressure O2 33 mmHg 09/02/24 11:30 Venous Blood HCO3 22 mmol/L 09/02/24 11:30 Venous Blood Base Excess -2.4 mEq/L 09/02/24 11:30 Venous Blood Oxygen Saturation 65.3 % 09/02/24 11:30 Microbiology 09/01/24 20:54 Aerobic Blood Culture - Preliminary Blood No growth in Aerobic bottle after 24 hours. Anaerobic Blood Culture - Final 09/01/24 19:24 Aerobic Blood Culture - Preliminary Blood No growth in Aerobic bottle after 24 hours. Anaerobic Blood Culture - Preliminary No growth in Anaerobic bottle after 24 hours. I & O Totals 24 Hours 09/02/24 09/03/24 09/04/24 06:59 06:59 06:59 Intake Total 3807.968 / 3807.968 3967.742 / 3967.742 Output Total 750 / 750 1852 / 1852 Balance 3057.968 / 3057.968 2115.742 / 2115.742 Cumulative 09/01/24 18:22 thru 09/03/24 06:00 Intake Total 7775.710 Output Total 2602 Balance 5173.710 RT Ventilator Mngmt (Last Documented) Ventilator Ordered Settings Respiratory Rate 15 09/03/24 06:23 Ventilator - PT Measurements Respiratory Rate 15 Coding Level of Care Code 03847 SUB INP/OBS CARE 2/35MIN Diagnoses Atrial fibrillation with rapid ventricular response I48.91 Acute dehydration E86.0 Metabolic acidosis E87.20 DKA (diabetic ketoacidosis) E13.10 Diabetes mellitus complication detail: without coma Diabetes mellitus type: other specified (including REESE) Heart failure with improved ejection fraction (HFimpEF) I50.32 High anion gap metabolic acidosis E87.29 (4) DKA (diabetic ketoacidosis) Diabetes mellitus complication detail: without coma Diabetes mellitus type: other specified (including REESE) Qualified Code(s): E13.10 - Other specified diabetes mellitus with ketoacidosis without coma
[2024-09-03 07:56] LABS: Calcium 8.9 mg/dl (8.6-10.3); Potassium 4.2 mmol/L (3.5-5.1)
[2024-09-03 08:02] LABS: BUN Creatinine Ratio 15.5 (10-20)
[2024-09-03] MEDS: LANTUS PER UNIT CHARGE SC SCH (08:09)
[2024-09-03 09:51] LABS: Basophils # (auto) 0.01 K/uL (0.00-0.20); Basophils % (auto) 0.1 %; Eosinophils # (auto) 0.01 K/uL (0.00-0.50); Eosinophils % (auto) 0.1 %; Hematocrit (blood only) 49.7 % (42.0-52.0); Hemoglobin 16.5 g/dl (14.0-18.0); Immature Granulocytes # (auto) 0.05 K/uL (0.01-0.20); Immature Granulocytes % (auto) 0.4 %; Lymphocytes # (auto) 1.53 K/uL (1.20-3.40); Lymphocytes % (auto) 13.1 %; Mean Corpuscular Hemoglobin 28.2 pg (25.0-34.0); Mean Corpuscular Hgb Conc 33.2 g/dL (32.0-36.0); Mean Platelet Volume 11.3 fL (9.4-12.4); Monocytes # (auto) 0.74 K/uL (0.11-0.59); Monocytes % (auto) 6.3 %; Neutrophils # (auto) 9.32 K/uL (1.40-6.50); Platelet Count 190 K/uL (130-400); RDW Coefficient of Variation 13.3 % (11.5-14.5); RDW Standard Deviation 41.3 fL (36.4-46.3); Red Blood Count 5.85 M/uL (4.70-6.10); White Blood Count 11.66 K/ul (4.8-10.8)
--- NOTE | 2024-09-03 11:48 | Hospitalist Progress Note ---
Date of Service September 03, 2024 Assessment & Plan (1) DKA (diabetic ketoacidosis): Plan: DM 2 insulin requiring, suboptimal control as of recent hemoglobin A1c of 7.9 last June 2024 Has not been taking his insulin for for the last few days and not checking his blood sugar Complains to have ongoing abdominal discomfort with nausea vomiting for the last few weeks Noted to have DKA with high anion gap metabolic acidosis Has been getting intravenous insulin and remains him n.p.o. Appreciate biomass technician and glycemic pharmacist input and recommendation Gradually getting better Clinically much better and has been getting subcu insulin Tolerating diet reasonably given the history of severe gastroparesis Will be transferred to telemetry unit (2) Atrial fibrillation with rapid ventricular response: Plan: Recurrent atrial flutter secondary to illness chronic diastolic heart failure (EF 50 to 55%, TTE 2023), patient on the dry side History congenital heart surgery Presented with A-fib with RVR- Rate remains elevated and will continue current medications. His heart rate is controlled and is reverted to sinus rhythm History of nonischemic cardiomyopathy secondary to significant alcohol use And Atrial Flutter Was evaluated by poison information specialist during his admission in May and showed Improved EF to 50 to 55% in echo on 06/13/2024 (3) Gastroparesis due to DM: Plan: Has history of gastroparesis secondary to diabetes Recent EGD showed esophagitis and the CAT scan of the abdomen and pelvis has been showing esophageal thickening UGIB likely secondary to nausea vomiting symptoms from DKA, history esophagitis, history of GERD/gastroparesis, paroxysmal atrial flutter/unprovoked PE status post Xarelto, patient hemoglobin currently stable likely secondary to hemoconcentration No episodes of coffee-ground emesis Has been getting Protonix Will need to have an early appointment with intel recruiter following discharge (4) Esophagitis: Plan: Significant esophagitis in CAT scan (5) Alcohol abuse: Plan: History of alcohol abuse Will observe for any withdrawal symptoms (6) HTN (hypertension): (7) GERD (gastroesophageal reflux disease): Plan DVT prophylaxis. SCDs re: GI bleed Full code Admission and Anticipated Discharge Date Admission Date: September 01, 2024 Subjective 09/02/2024 The patient was seen and examined in ICU He has been complaining of epigastric/abdominal discomfort with ongoing nausea and vomiting He denies any fever and or chills and does not have any cough or any phlegm Denies any palpitation though heart rate remains at around 141 and no chest pain 09/03/2024 The patient was seen and examined in ICU He complains today of ongoing nausea and occasional vomiting otherwise no significant symptoms He has been reverted to sinus rhythm and rate is maintained He has been back on subcu insulin and will transfer to telemetry unit for continued care. Review of Systems Review of Systems: all systems reviewed and are unremarkable except as noted below Physical Exam Physical Exam: Sitting on bed with acute distress due to nausea and abdominal discomfort Constitutional: well developed, well nourished, + ill appearing and + obese Eyes: PERRL, conjunctivae normal, anicteric sclerae ENMT: external ear and nose normal, oropharynx normal Neck: trachea midline, no thyromegaly Respiratory: no respiratory distress Auscultation: lungs clear to auscultation bilaterally Cardiovascular: Rate/Rhythm: regular rate, regular rhythm and + tachycardic Heart Sounds: normal S1 and normal S2; no murmur Extremities: no edema Gastrointestinal (Abdomen): Inspection/Auscultation: normal bowel sounds; abdomen not distended Percussion/Palpation: + abdomen tender ( in the epigastrium) Neurologic: normal touch/pain/proprioception and moves all extremities; no focal motor deficits Lymphatic: no cervical or axillary lymphadenopathy Results & Data Results & Data Vital Signs (Past 12 Hours) Vital Signs Temp Pulse Pulse Resp BP BP Pulse Ox 09/03/24 11:10 36.8 C 78 20 118/80 94 09/03/24 08:00 09/03/24 08:00 95 H 09/03/24 08:00 09/03/24 07:00 36.5 C 100 H 18 128/89 97 09/03/24 06:23 79 15 133/71 94 09/03/24 05:03 87 17 110/72 91 09/03/24 04:00 84 16 108/83 92 09/03/24 04:00 36.9 C 09/03/24 03:00 87 19 97/71 L 90 09/03/24 02:03 86 16 100/62 92 09/03/24 01:00 92 H 19 95/66 L 89 L 09/03/24 00:06 85 3 L 119/81 94 09/03/24 00:00 36.9 C 09/03/24 00:00 89 O2 Del Method 09/03/24 11:10 Room Air 09/03/24 08:00 Room Air 09/03/24 08:00 09/03/24 08:00 Room Air 09/03/24 07:00 Room Air 09/03/24 06:23 Room Air 09/03/24 05:03 09/03/24 04:00 09/03/24 04:00 09/03/24 03:00 09/03/24 02:03 09/03/24 01:00 09/03/24 00:06 09/03/24 00:00 09/03/24 00:00 Laboratory Results Short CBC 09/03/24 09/03/24 Range/Units 07:21 09:29 WBC Cancelled 11.66 H Hgb Cancelled 16.5 Hct Cancelled 49.7 Plt Count Cancelled 190 BMP 09/03/24 07:21 Sodium 139 Potassium 4.2 Chloride 106 Carbon Dioxide 21 BUN 13 Creatinine 0.84 Glucose 183 H Calcium 8.9 Medications Administered Current Inpatient Medications Acetaminophen (Acetaminophen 325 Mg Tab) 650 mg PO QID PRN PRN Reason: pain/fever Stop: 10/01/24 23:04 Atorvastatin Calcium (Atorvastatin 40 Mg Tab) 40 mg PO QAM [facility] Stop: 10/02/24 08:59 Last Admin: 09/03/24 08:10 Dose: 40 mg Dextrose (Dextrose 50% 50 Ml Syringe) 25 - 50 ml IV UD PRN; Protocol PRN Reason: Hypoglycemia Protocol Stop: 10/01/24 19:44 Duloxetine HCl (Duloxetine Hcl 30 Mg Cap) [facility] [place] Stop: 10/02/24 08:59 Last Admin: 09/03/24 08:09 Dose: 30 mg Ezetimibe (Ezetimibe 10 Mg Tab) 10 mg PO QAM [facility] Stop: 10/02/24 08:59 Last Admin: 09/03/24 08:09 Dose: 10 mg Fenofibrate (Fenofibrate Nanocrystallized 145 Mg Tablet) 145 mg PO QAM [facility] Stop: 10/02/24 08:59 Last Admin: 09/03/24 08:10 Dose: 145 mg Gabapentin (Gabapentin 300 Mg Cap) 300 mg PO TID [facility] Stop: 10/01/24 23:24 Last Admin: 09/03/24 08:09 Dose: 300 mg Glucagon (Glucagon For Inj 1 Mg Vial) 1 mg SQ UD PRN; Protocol PRN Reason: Hypoglycemia Protocol Stop: 10/01/24 19:44 Glucose (Glucose 40% Gel 15 Gm Tube) 15 - 30 gm PO UD PRN; Protocol PRN Reason: Hypoglycemia Protocol Stop: 10/01/24 19:44 Glucose (Glucose 10 Tab/Tube) 4 - 8 tab PO UD PRN; Protocol PRN Reason: Hypoglycemia Protocol Stop: 10/01/24 19:44 Insulin Aspart (Insulin Aspart Per Unit Charge) 0 units SC ACHS [facility] Stop: 10/02/24 16:29 Last Admin: 09/03/24 11:55 Dose: 9 units Insulin Glargine (Lantus Per Unit Charge) 20 units SC QAM [facility] Stop: 10/03/24 08:59 Last Admin: 09/03/24 08:09 Dose: 20 units Lorazepam (Lorazepam 0.5 Mg Tab) 0.5 mg PO TID PRN PRN Reason: Anxiety Stop: 10/01/24 23:21 Metoclopramide HCl (Metoclopramide Hcl 10 Mg Tablet) 10 mg PO TID [facility] Stop: 10/02/24 08:59 Last Admin: 09/02/24 21:32 Dose: 10 mg Metoprolol Succinate (Metoprolol Succ 25mg Ext Rel Tab) 75 mg PO QAM [facility] Stop: 10/02/24 08:59 Last Admin: 09/03/24 08:10 Dose: 75 mg Metoprolol Tartrate (Metoprolol Tartrate 1 Mg/Ml Vial) 5 mg IV Q2H PRN PRN Reason: HR > 110 Stop: 10/02/24 05:12 Miscellaneous (Carbohydrates For Hypoglycemia ) 15 - 30 gm PO UD PRN PRN Reason: Hypoglycemia Protocol Stop: 10/01/24 19:44 Oxycodone HCl (Oxycodone Hcl Ir 5 Mg Tab (Immediate Release)) 5 mg PO Q4H PRN PRN Reason: Pain Stop: 09/15/24 20:42 Last Admin: 09/01/24 20:55 Dose: 5 mg Pantoprazole Sodium (Pantoprazole 40 Mg Tab) 40 mg PO BID [facility] Stop: 10/03/24 20:59 Polyethylene Glycol (Polyethylene (Miralax) 17 Gm Pack) 17 gm PO DAILY PRN PRN Reason: Constipation Stop: 10/02/24 17:44 Last Admin: 09/03/24 08:09 Dose: 17 gm Rivaroxaban (Rivaroxaban 20 Mg Tab) 20 mg PO QDD [facility] Stop: 10/02/24 16:29 Last Admin: 09/02/24 16:51 Dose: 20 mg Sacubitril/Valsartan (Valsartan/Sacubitril 26/24mg Tab) 0.5 tab PO BID [facility] Stop: 10/02/24 08:59 Last Admin: 09/02/24 21:32 Dose: 0.5 tab Spironolactone (Spironolactone 25 Mg Tab) 25 mg PO QAM [facility] Stop: 10/04/24 08:59 Trazodone HCl (Trazodone Hcl 50 Mg Tab) 50 mg PO HS [facility] Stop: 10/01/24 23:24 Last Admin: 09/02/24 21:32 Dose: 50 mg (1) DKA (diabetic ketoacidosis) Diabetes mellitus complication detail: without coma Diabetes mellitus type: other specified (including REESE) Qualified Code(s): E13.10 - Other specified diabetes mellitus with ketoacidosis without coma
[2024-09-03] MEDS: MAGNESIUM HYDROXIDE SUSP 30 ML UDC PO ONE (17:21)
[2024-09-03] MEDS: PANTOprazole 40 MG TAB PO SCH (19:51)
[2024-09-04 04:28] LABS: Basophils # (auto) 0.03 K/uL (0.00-0.20); Basophils % (auto) 0.4 %; Eosinophils # (auto) 0.04 K/uL (0.00-0.50); Eosinophils % (auto) 0.5 %; Hematocrit (blood only) 47.6 % (42.0-52.0); Hemoglobin 15.9 g/dl (14.0-18.0); Immature Granulocytes # (auto) 0.02 K/uL (0.01-0.20); Immature Granulocytes % (auto) 0.3 %; Lymphocytes # (auto) 2.52 K/uL (1.20-3.40); Lymphocytes % (auto) 33.4 %; Mean Corpuscular Hemoglobin 28.4 pg (25.0-34.0); Mean Corpuscular Hgb Conc 33.4 g/dL (32.0-36.0); Mean Corpuscular Volume 85.2 fL (80.0-100.0); Mean Platelet Volume 11.6 fL (9.4-12.4); Monocytes # (auto) 0.71 K/uL (0.11-0.59); Monocytes % (auto) 9.4 %; Neutrophils # (auto) 4.23 K/uL (1.40-6.50); Platelet Count 165 K/uL (130-400); RDW Coefficient of Variation 12.8 % (11.5-14.5); RDW Standard Deviation 39.9 fL (36.4-46.3); Red Blood Count 5.59 M/uL (4.70-6.10); White Blood Count 7.55 K/ul (4.8-10.8)
[2024-09-04 04:40] LABS: BUN Creatinine Ratio 20.2 (10-20); Calcium 9.4 mg/dl (8.6-10.3)
[2024-09-04] MEDS: SPIRONOLACTONE 25 MG TAB PO SCH (08:14)
--- NOTE | 2024-09-04 10:00 | Electrocardiogram Report ---
Test Reason : Blood Pressure : */* mmHG Vent. Rate : 147 BPM Atrial Rate : * BPM P-R Int : * ms QRS Dur : 136 ms QT Int : 336 ms P-R-T Axes : * 181 24 degrees QTcB Int : 525 ms Atrial fibrillation with rapid ventricular response Right bundle branch block Abnormal ECG When compared with ECG of 21-Jun-2024 06:19, No significant change HR has increased Confirmed by Kenrick Ruiz ([id number]) on 09/04/2024 9:59:44 AM Referred By: REFERRED SELF Confirmed By: Kenrick Ruiz
--- NOTE | 2024-09-04 10:05 | Electrocardiogram Report ---
Test Reason : Blood Pressure : */* mmHG Vent. Rate : 173 BPM Atrial Rate : * BPM P-R Int : * ms QRS Dur : 138 ms QT Int : 322 ms P-R-T Axes : * 188 14 degrees QTcB Int : 546 ms Atrial fibrillation Right bundle branch block with rapid ventricular response Anteroseptal infarct , age undetermined Abnormal ECG When compared with ECG of 01-Sep-2024 18:35, (unconfirmed) No significant change Confirmed by Kenrick Ruiz ([id number]) on 09/04/2024 10:05:11 AM Referred By: REFERRED SELF Confirmed By: Kenrick Ruiz
--- NOTE | 2024-09-04 10:41 | Electrocardiogram Report ---
Test Reason : Blood Pressure : */* mmHG Vent. Rate : 130 BPM Atrial Rate : * BPM P-R Int : * ms QRS Dur : 160 ms QT Int : 374 ms P-R-T Axes : * 264 8 degrees QTcB Int : 550 ms Atrial fibrillation with rapid ventricular response Right bundle branch block Inferior infarct , age undetermined Abnormal ECG When compared with ECG of 01-Sep-2024 18:52, (unconfirmed) HR has decreased Confirmed by Kenrick Ruiz ([id number]) on 09/04/2024 10:40:46 AM Referred By: REFERRED SELF Confirmed By: Kenrick Ruiz
--- NOTE | 2024-09-04 10:46 | Electrocardiogram Report ---
Test Reason : Blood Pressure : */* mmHG Vent. Rate : 96 BPM Atrial Rate : 288 BPM P-R Int : * ms QRS Dur : 134 ms QT Int : 366 ms P-R-T Axes : 252 -52 3 degrees QTcB Int : 462 ms Atrial flutter with variable A-V block Left axis deviation Right bundle branch block Inferior infarct (cited on or before 18-Nov-2023) Abnormal ECG When compared with ECG of 01-Sep-2024 22:42, (unconfirmed) Atrial flutter has replaced Atrial fibrillation QRS duration has decreased Minimal criteria for Anteroseptal infarct are now Present T wave inversion less evident in Anterior leads Confirmed by Kenrick Ruiz ([id number]) on 09/04/2024 10:46:50 AM Referred By: REFERRED SELF Confirmed By: Kenrick Ruiz
--- NOTE | 2024-09-04 10:55 | Electrocardiogram Report ---
Test Reason : Blood Pressure : */* mmHG Vent. Rate : 139 BPM Atrial Rate : 120 BPM P-R Int : * ms QRS Dur : 134 ms QT Int : 352 ms P-R-T Axes : * 264 -16 degrees QTcB Int : 535 ms Atrial flutter with rapid ventricular response Right bundle branch block Septal infarct (cited on or before 09-Feb-2024) Inferior infarct (cited on or before 18-Nov-2023) Abnormal ECG When compared with ECG of 02-Sep-2024 05:02, (unconfirmed) T wave inversion more evident in Anterior leads Confirmed by Kenrick Ruiz ([id number]) on 09/04/2024 10:55:21 AM Referred By: REFERRED SELF Confirmed By: Kenrick Ruiz
--- NOTE | 2024-09-04 15:23 | Hospitalist Progress Note ---
Date of Service September 04, 2024 Assessment & Plan (1) DKA (diabetic ketoacidosis): Plan: DM 2 insulin dependent, suboptimal control as of recent hemoglobin A1c of 7.9 last June 2024 Has not been taking his insulin for for the last few days and not checking his blood sugar Complains to have ongoing abdominal discomfort with nausea vomiting for the last few weeks Noted to have DKA with high anion gap metabolic acidosis He is S/P intravenous insulin. Diet started after n.p.o. status Appreciate CCM and glycemic pharmacist input and recommendations Transfer out of ICU Continue subcu insulin. Monitor BS Tolerating diet reasonably given the history of severe gastroparesis Will be transferred to telemetry unit (2) Atrial fibrillation with rapid ventricular response: Plan: Recurrent atrial flutter secondary to his acute illness He has chronic diastolic heart failure (EF 50 to 55%, TTE 2023), patient is euvolemic today History congenital heart surgery Presented with A-fib with RVR-No in SR History of nonischemic cardiomyopathy secondary to significant alcohol use Was evaluated by [facility] brush man during his admission in May and showed Improved EF to 50 to 55% in echo on 06/13/2024 (3) Gastroparesis due to DM: Plan: Has history of gastroparesis secondary to diabetes Recent EGD showed esophagitis and the CAT scan of the abdomen and pelvis has been showing esophageal thickening UGIB likely secondary to nausea vomiting symptoms from DKA, history esophagitis, history of GERD/gastroparesis, paroxysmal atrial flutter/unprovoked PE status post Xarelto, patient hemoglobin currently stable likely secondary to hemoconcentration No evidnce of GI bleed Continue PPI F/U with GI following discharge (4) Esophagitis: Plan: Significant esophagitis in CAT scan (5) Alcohol abuse: Plan: History of alcohol abuse No evidence of withdrawal symptoms (6) HTN (hypertension): Plan: Follow BPs (7) GERD (gastroesophageal reflux disease): Plan: On PPI Plan DVT prophylaxis. SCDs re: GI bleed risk Full code 55 minutes spent in the care coordination of this ICU patient Admission and Anticipated Discharge Date Admission Date: September 01, 2024 Subjective 09/02/2024 The patient was seen and examined in ICU He has been complaining of epigastric/abdominal discomfort with ongoing nausea and vomiting He denies any fever and or chills and does not have any cough or any phlegm Denies any palpitation though heart rate remains at around 141 and no chest pain 09/03/2024 The patient was seen and examined in ICU He complains today of ongoing nausea and occasional vomiting otherwise no significant symptoms He has been reverted to sinus rhythm and rate is maintained 09/04/2024 The patient was seen and examined in ICU No further nausea and vomiting. Complains of his whole body hurt. He states this is not new. "It's just my life". He has reverted to sinus rhythm and rate is controlled He has been back on subcu insulin and will transfer to telemetry unit for continued care. Review of Systems Constitutional: Constitutional- no fever; no chills Eyes- no acute visual changes ENT- no sinus drainage; no pharyngitis Pulmonary- no cough, no wheezing, no shortness of breath Cardiac- no chest pain, no palpitations, no orthopnea, no dependent edema GI- no nausea, no vomiting, no diarrhea, no melena, no hematochezia - no dysuria, no hematuria Musculoskeletal- chronic arthralgias and myalgias Neuro- no headaches, no focal neurologic symptoms Psych- ho anxiety and depression Physical Exam Physical Exam: General- adult male seen at bedside Head- atraumatic Eyes- PERRL, EOMI, anicteric ENT- oropharynx clear Neck- supple, no JVD, no adenopathy, no thyromegaly; carotids +2/2, no bruits appreciated Lungs- clear to auscultation and percussion Heart- regular rhythm; no murmur, no gallop, no rub appreciated Abdomen- normal bowel sounds, soft, nontender, no masses or hepatosplenomegaly Extremities- no pretibial edema, no calf tenderness; peripheral pulses intact Neuro- alert, oriented x 3; PERRL, EOMI; no facial palsy; no dysarthria; motor 5/5 bilaterally; no cogwheel rigidity; patellar DTRs +2/2; toes downgoing bilaterally; finger to nose intact bilaterally Skin- warm & dry Results & Data Results & Data Vital Signs (Past 12 Hours) Vital Signs Temp Pulse Pulse Resp BP Pulse Ox O2 Del Method 09/04/24 11:30 36.7 C 88 18 152/101 H 97 Room Air 09/04/24 07:44 Room Air 09/04/24 07:43 81 09/04/24 07:36 36.6 C 86 18 145/99 H 97 Room Air 09/04/24 04:00 37.1 C 82 15 119/80 97 Room Air Diagnostic Findings Laboratory Results WBC 7.55 K/ul (4.8-10.8) 09/04/24 04:00 RBC 5.59 M/uL (4.70-6.10) 09/04/24 04:00 Hgb 15.9 g/dl (14.0-18.0) 09/04/24 04:00 POC Hgb 17.3 g/dl (14.0-18.0) 09/01/24 20:40 Hct 47.6 % (42.0-52.0) 09/04/24 04:00 POC Hct 51 % (42-52) 09/01/24 20:40 MCV 85.2 fL (80.0-100.0) 09/04/24 04:00 MCH 28.4 pg (25.0-34.0) 09/04/24 04:00 MCHC 33.4 g/dL (32.0-36.0) 09/04/24 04:00 RDW Std Deviation 39.9 fL (36.4-46.3) 09/04/24 04:00 RDW Coeff of Trevon 12.8 % (11.5-14.5) 09/04/24 04:00 Plt Count 165 K/uL (130-400) 09/04/24 04:00 MPV 11.6 fL (9.4-12.4) 09/04/24 04:00 Immature Gran % (Auto) 0.3 % 09/04/24 04:00 Neut % (Auto) 56.0 % 09/04/24 04:00 Lymph % (Auto) 33.4 % 09/04/24 04:00 Burnet % (Auto) 9.4 % 09/04/24 04:00 Eos % (Auto) 0.5 % 09/04/24 04:00 Baso % (Auto) 0.4 % 09/04/24 04:00 Neut # (Auto) 4.23 K/uL (1.40-6.50) 09/04/24 04:00 Lymph # (Auto) 2.52 K/uL (1.20-3.40) 09/04/24 04:00 Burnet # (Auto) 0.71 K/uL (0.11-0.59) H 09/04/24 04:00 Eos # (Auto) 0.04 K/uL (0.00-0.50) 09/04/24 04:00 Baso # (Auto) 0.03 K/uL (0.00-0.20) 09/04/24 04:00 Immature Gran # (Auto) 0.02 K/uL (0.01-0.20) 09/04/24 04:00 Absolute Nucleated RBC Cancelled 09/03/24 07:21 Nucleated RBC % (auto) Cancelled 09/03/24 07:21 Neutrophils % (Manual) Cancelled 09/03/24 07:21 Band Neutrophils % Cancelled 09/03/24 07:21 Lymphocytes % (Manual) Cancelled 09/03/24 07:21 Prolymphocyte % Cancelled 09/03/24 07:21 Reactive Lymphs % (Man) Cancelled 09/03/24 07:21 Monocytes % (Manual) Cancelled 09/03/24 07:21 Eosinophils % (Manual) Cancelled 09/03/24 07:21 Basophils % (Manual) Cancelled 09/03/24 07:21 Metamyelocytes % (Man) Cancelled 09/03/24 07:21 Myelocytes % (Man) Cancelled 09/03/24 07:21 Promyelocytes % (Man) Cancelled 09/03/24 07:21 Blast Cells % (Manual) Cancelled 09/03/24 07:21 Plasma Cell % (Manual) Cancelled 09/03/24 07:21 Other Cells % Cancelled 09/03/24 07:21 Nucleated RBC % Cancelled 09/03/24 07:21 Neutrophils # (Manual) Cancelled 09/03/24 07:21 Band Neutrophils # Cancelled 09/03/24 07:21 Total Absolute Neuts Cancelled 09/03/24 07:21 Lymphocytes # (Manual) Cancelled 09/03/24 07:21 Prolymphocyte # Cancelled 09/03/24 07:21 Reactive Lymphs # Cancelled 09/03/24 07:21 Total Abs Lymphocytes Cancelled 09/03/24 07:21 Monocytes # (Manual) Cancelled 09/03/24 07:21 Eosinophils # (Manual) Cancelled 09/03/24 07:21 Basophils # (Manual) Cancelled 09/03/24 07:21 Metamyelocytes # (Man) Cancelled 09/03/24 07:21 Myelocytes # (Manual) Cancelled 09/03/24 07:21 Promyelocytes # (Man) Cancelled 09/03/24 07:21 Blast Cells # (Man) Cancelled 09/03/24 07:21 Plasma Cell # (Manual) Cancelled 09/03/24 07:21 Other Cells # Cancelled 09/03/24 07:21 Nucleated RBCs # (Man) Cancelled 09/03/24 07:21 Hypersegmented Neuts Cancelled 09/03/24 07:21 Hyposegmented Neuts Cancelled 09/03/24 07:21 Hypogranular Neuts Cancelled 09/03/24 07:21 Large Granular Lymphs Cancelled 09/03/24 07:21 # Lrg Granular Lymphs Cancelled 09/03/24 07:21 Hairy Cells Cancelled 09/03/24 07:21 Smudge Cells Cancelled 09/03/24 07:21 Toxic Granulation Cancelled 09/03/24 07:21 Toxic Vacuolation Cancelled 09/03/24 07:21 Dohle Bodies Cancelled 09/03/24 07:21 Sebas Rods Cancelled 09/03/24 07:21 Platelet Estimate Cancelled 09/03/24 07:21 Hypogranular Platelets Cancelled 09/03/24 07:21 Giant Platelets Cancelled 09/03/24 07:21 Platelet Satelliting Cancelled 09/03/24 07:21 RBC Morphology Cancelled 09/03/24 07:21 Polychromasia Cancelled 09/03/24 07:21 Hypochromasia Cancelled 09/03/24 07:21 Poikilocytosis Cancelled 09/03/24 07:21 Basophilic Stippling Cancelled 09/03/24 07:21 Anisocytosis Cancelled 09/03/24 07:21 Microcytosis Cancelled 09/03/24 07:21 Macrocytosis Cancelled 09/03/24 07:21 Spherocytes Cancelled 09/03/24 07:21 Pappenheimer Bodies Cancelled 09/03/24 07:21 Sickle Cells Cancelled 09/03/24 07:21 Target Cells Cancelled 09/03/24 07:21 Tear Drop Cells Cancelled 09/03/24 07:21 Ovalocytes Cancelled 09/03/24 07:21 Stomatocytes Cancelled 09/03/24 07:21 Kline-Hugoton Bodies Cancelled 09/03/24 07:21 Echinocytes Cancelled 09/03/24 07:21 Acanthocytes (Spur) Cancelled 09/03/24 07:21 Rouleaux Cancelled 09/03/24 07:21 RBC Agglutinates Cancelled 09/03/24 07:21 Schistocytes Cancelled 09/03/24 07:21 Sezary Cell Cancelled 09/03/24 07:21 PT 13.4 Seconds (9.0-12.0) H 09/01/24 20:01 INR 1.3 (0.9-1.1) H 09/01/24 20:01 APTT 28 Seconds (21-31) 09/01/24 20:01 PTT Ratio 1.0 09/01/24 20:01 Specimen Type Arterial 09/01/24 20:40 POC pH 7.13 (7.35-7.45) L* 09/01/24 20:40 POC pCO2 16 mmHg (35-46) L 09/01/24 20:40 POC pO2 120 mmHg (80-95) H 09/01/24 20:40 POC HCO3 5 sharmaine/L (19-24) L 09/01/24 20:40 POC Total CO2 6 mmol/L (24-31) L* 09/01/24 20:40 POC Base Excess -24.0 sharmaine/L (-9-1.8) L 09/01/24 20:40 POC ABG O2 Sat 97.0 % (90-95) H 09/01/24 20:40 VBG pH 7.40 (7.36-7.41) 09/02/24 11:30 VBG pCO2 35 mmHg (38-50) L 09/02/24 11:30 VBG pO2 33 mmHg 09/02/24 11:30 VBG HCO3 22 mmol/L 09/02/24 11:30 VBG O2 Saturation 65.3 % 09/02/24 11:30 VBG Base Excess -2.4 mEq/L 09/02/24 11:30 POC Sodium 134 mmol/L (135-144) L 09/01/24 20:40 Sodium 141 mmol/L (136-145) 09/04/24 04:00 POC Potassium 5.6 mmol/L (3.3-5.0) H 09/01/24 20:40 Potassium 4.0 mmol/L (3.5-5.1) 09/04/24 04:00 POC Chloride 103 mmol/L (101-112) 09/01/24 18:52 Chloride 104 mmol/L (98-107) 09/04/24 04:00 Carbon Dioxide 27 mmol/L (21-32) 09/04/24 04:00 POC Total CO2 9 mmol/L (24-31) L* 09/01/24 18:52 Anion Gap 10 (3-11) 09/04/24 04:00 POC Anion Gap 32.0 mmol/L (16-25) H 09/01/24 18:52 POC BUN 30 mg/dl (7-18) H 09/01/24 18:52 BUN 17 mg/dl (6-23) 09/04/24 04:00 Creatinine 0.84 mg/dl (0.6-1.4) 09/04/24 04:00 POC Creatinine 1.9 mg/dl (0.6-1.3) H 09/01/24 18:52 Est Cr Clr Drug Dosing 116.0 ml/min 09/04/24 04:00 eGFR 109.59 09/04/24 04:00 BUN/Creatinine Ratio 20.2 (10-20) H 09/04/24 04:00 Glucose 185 mg/dl (70-99(Fasting)) H 09/04/24 04:00 POC Glucose 174 mg/dl (70-99) H 09/04/24 11:18 POC Glucose (other) 510 mg/dl (70-99) H* 09/01/24 18:52 Estimat Average Glucose 229 mg/dl 09/01/24 19:24 Hemoglobin A1c 9.6 % (4.5-5.6) H 09/01/24 19:24 Osmolality 335 mOsm/kg (280-300) H 09/01/24 18:45 Lactate 1.4 mmol/L (0.4-2.0) 09/02/24 03:21 Calcium 9.4 mg/dl (8.6-10.3) 09/04/24 04:00 POC Ioniz Calcium Kayla 1.10 mmol/l (1.12-1.32) L 09/01/24 18:52 Ionized Calcium 1.19 mmol/L (1.12-1.32) 09/01/24 23:58 Phosphorus < 1.0 mg/dl (2.5-4.9) L* D 09/02/24 03:21 Magnesium 3.9 mg/dl (1.7-2.4) H 09/02/24 03:21 Total Bilirubin 0.9 mg/dl (0.2-1.0) 09/01/24 18:45 AST 15 U/L (13-39) 09/01/24 18:45 ALT 27 U/L (7-52) 09/01/24 18:45 Alkaline Phosphatase 141 U/L (34-104) H 09/01/24 18:45 Troponin I High Sens 28.8 pg/ml (0-20) H 09/01/24 20:04 C-Reactive Protein < 0.50 mg/dl (0-0.5) 09/01/24 20:04 B-Natriuretic Peptide 348 pg/ml (0-100) H 09/01/24 18:45 Total Protein 9.1 gm/dl (6.0-8.3) H 09/01/24 18:45 Albumin 6.4 gm/dl (3.4-5.0) H 09/01/24 18:45 Globulin 2.7 gm/dl (2.5-4.0) 09/01/24 18:45 Albumin/Globulin Ratio 2.4 (0.9-2) H 09/01/24 18:45 Lipase 183 U/L (11-82) H 09/01/24 18:45 Procalcitonin 0.18 ng/ml (0-0.5) 09/01/24 18:45 Urine Color Yellow 09/01/24 20:51 Urine Appearance Clear (Clear) 09/01/24 20:51 Urine pH 5.0 (4.5-7.5) 09/01/24 20:51 Ur Specific [place] 1.040 (1.000-1.030) H 09/01/24 20:51 Urine Protein 1+ (Negative) H 09/01/24 20:51 Urine Glucose (UA) 3+ (Negative) H 09/01/24 20:51 Urine Ketones 3+ (Negative) H 09/01/24 20:51 Urine Blood Negative (Negative) 09/01/24 20:51 Urine Nitrite Negative (Negative) 09/01/24 20:51 Urine Bilirubin Negative (Negative) 09/01/24 20:51 Urine Urobilinogen Negative (Negative) 09/01/24 20:51 Ur Leukocyte Esterase Negative (Negative) 09/01/24 20:51 Urine WBC (Auto) 0-5 /hpf (0-5) 09/01/24 20:51 Urine RBC (Auto) 0-2 /hpf (0-2) 09/01/24 20:51 U Hyaline Cast (Auto) 6-10 /lpf (0-2) H 09/01/24 20:51 U Epithel Cells (Auto) 0-2 /hpf (0-2) 09/01/24 20:51 Urine Bacteria (Auto) None Seen (None Seen) 09/01/24 20:51 Hyaline Casts Present /lpf (None Presnt) A 09/01/24 20:51 Nasal Screen MRSA (PCR) Negative (Negative) 09/02/24 00:47 Salicylates < 3.0 mg/dl (3.0-30) L 09/02/24 01:17 Urine Opiates Screen Neg (Neg) 09/01/24 20:51 Ur Methadone, Qual Neg (Neg) 09/01/24 20:51 Urine Fentanyl Screen Neg (Neg) 09/01/24 20:51 Acetaminophen < 3 ug/ml (10-30) L 09/02/24 01:17 Urine Barbiturates Neg (Neg) 09/01/24 20:51 Ur Phencyclidine (PCP) Neg (Neg) 09/01/24 20:51 U Amphetamin/Meth Scrn Neg (Neg) 09/01/24 20:51 MDMA (Ecstasy) Screen Neg (Neg) 09/01/24 20:51 U Benzodiazepines Scrn Neg (Neg) 09/01/24 20:51 Ur Cocaine Metabolite Neg (Neg) 09/01/24 20:51 U Marijuana (THC) Screen Pos (Neg) H 09/01/24 20:51 Ethyl Alcohol mg/dL < 10.0 mg/dl (<10.0) 09/01/24 18:45 Blood Parasites ID Cancelled 09/03/24 07:21 Blood Type A Positive 09/01/24 23:58 Antibody Screen NEGATIVE 09/01/24 23:58 Impressions Abdomen/Pelvis CT 09/01/24 18:37 Exam(s): CT ABDOMEN + PELVIS With Contrast IV Amt: OPTIRAY [id number] 116ML EXAM: CT Abdomen and Pelvis With Intravenous Contrast CLINICAL HISTORY: vomiting. TECHNIQUE: Axial computed tomography images of the abdomen and pelvis with intravenous contrast. CTDI is 27.29 mGy and DLP is 847.05 mGy-cm. Automated exposure control was utilized for the study. A dose lowering technique was utilized adhering to the principles of ALARA. CONTRAST: Patient received OPTIRAY 320 116ML of IV contrast COMPARISON: CT abdomen and pelvis without contrast dated 06/12/2024 FINDINGS: Lung bases: Unremarkable. No mass. No consolidation. ABDOMEN: Liver: Unremarkable. No mass. Gallbladder and bile ducts: Unremarkable. No calcified stones. No ductal dilation. Pancreas: Unremarkable. No mass. No ductal dilation. Spleen: Stable presumed splenule medial to the spleen and posterior to the gastric fundus measuring 1.5 cm. Adrenals: Unremarkable. No mass. Kidneys and ureters: Unremarkable. No solid mass. No hydronephrosis. Stomach and bowel: The stomach is mildly fluid distended. No gastric mucosal thickening or retrograde distention of the distal thoracic esophagus. No evidence for bowel obstruction. No asymmetric mucosal abnormality. Mild stool burden. Scattered diverticulosis without definitive diverticulitis. PELVIS: Appendix: A normal caliber appendix is noted extending inferiorly from the cecum in the right lower quadrant. Bladder: Unremarkable. No mass. Reproductive: Unremarkable as visualized. ABDOMEN and PELVIS: Intraperitoneal space: Unremarkable. No free air. No significant fluid collection. Bones/joints: Similar multilevel degenerative changes throughout the thoracolumbar spine. No acute osseous abnormality. No dislocation. Soft tissues: Unremarkable. Vasculature: Unremarkable. No abdominal aortic aneurysm. Lymph nodes: Unremarkable. No enlarged lymph nodes. IMPRESSION: The stomach is mildly fluid distended. No gastric mucosal thickening or retrograde distention of the distal thoracic esophagus. No evidence for bowel obstruction. No asymmetric mucosal abnormality. Mild stool burden. Scattered diverticulosis without definitive diverticulitis. No free intraperitoneal fluid or pneumoperitoneum. Electronically signed by: Ayden Olmedo MD 09/01/24 20:37 PM Chest CTA 09/01/24 18:39 Exam(s): CTA CHEST IV Amt: OPTIRAY [id number] EXAM: CT Angiography Chest With Intravenous Contrast CLINICAL HISTORY: Evaluate for potential PE. TECHNIQUE: Axial computed tomographic angiography images of the chest with intravenous contrast. CTDI is 23.72 mGy and DLP is 1216.49 mGy-cm. Automated exposure control was utilized for the study. A dose lowering technique was utilized adhering to the principles of ALARA. MIP reconstructed images were created and reviewed. COMPARISON: CT chest without contrast dated 06/12/2024 FINDINGS: Pulmonary arteries: Attending for respiratory artifact, there is no definite evidence for pulmonary embolism. Aorta: The aorta is normal in caliber without dissection or aneurysm. Lungs: No focal airspace consolidation. Pleural space: Unremarkable. No significant effusion. No pneumothorax. Heart: Unremarkable. No cardiomegaly. No significant pericardial effusion. Mediastinum: Concentric mucosal thickening involving the distal thoracic esophagus. No evidence for obstruction or paraesophageal inflammatory changes. Bones/joints: No acute fracture. No dislocation. Soft tissues: Unremarkable. Lymph nodes: Unremarkable. No enlarged lymph nodes. IMPRESSION: 1. Attending for respiratory artifact, there is no definite evidence for pulmonary embolism. 2. Concentric mucosal thickening involving the distal thoracic esophagus. No evidence for obstruction or paraesophageal inflammatory changes. This was suggested on the previous CT examination but appears more prominent. Differential consideration includes advancing hypertrophic changes versus recurrent inflammatory or infectious esophagitis. 3. No focal airspace consolidation. No pleural effusion or pneumothorax. Electronically signed by: Ayden Olmedo MD 09/01/24 20:40 PM (1) DKA (diabetic ketoacidosis) Diabetes mellitus complication detail: without coma Diabetes mellitus type: other specified (including REESE) Qualified Code(s): E13.10 - Other specified diabetes mellitus with ketoacidosis without coma
[2024-09-05 06:40] LABS: Basophils # (auto) 0.03 K/uL (0.00-0.20); Basophils % (auto) 0.7 %; Eosinophils # (auto) 0.08 K/uL (0.00-0.50); Eosinophils % (auto) 1.8 %; Hematocrit (blood only) 45.2 % (42.0-52.0); Hemoglobin 15.1 g/dl (14.0-18.0); Immature Granulocytes # (auto) 0.02 K/uL (0.01-0.20); Immature Granulocytes % (auto) 0.4 %; Lymphocytes # (auto) 1.21 K/uL (1.20-3.40); Lymphocytes % (auto) 26.5 %; Mean Corpuscular Hemoglobin 28.3 pg (25.0-34.0); Mean Corpuscular Hgb Conc 33.4 g/dL (32.0-36.0); Mean Corpuscular Volume 84.8 fL (80.0-100.0); Mean Platelet Volume 11.9 fL (9.4-12.4); Monocytes # (auto) 0.41 K/uL (0.11-0.59); Neutrophils # (auto) 2.82 K/uL (1.40-6.50); Neutrophils % (auto) 61.6 %; Platelet Count 123 K/uL (130-400); RDW Coefficient of Variation 12.2 % (11.5-14.5); RDW Standard Deviation 37.2 fL (36.4-46.3); Red Blood Count 5.33 M/uL (4.70-6.10); White Blood Count 4.57 K/ul (4.8-10.8)
[2024-09-05 06:56] LABS: BUN Creatinine Ratio 19.6 (10-20); Calcium 9.2 mg/dl (8.6-10.3); Creatinine Clr Calc Pharmacy 101.7 ml/min; Potassium 4.2 mmol/L (3.5-5.1)
[2024-09-05 11:12] VITALS: RESP 16; TEMP 98.2; O2SAT 97
--- NOTE | 2024-09-05 13:10 | Discharge Summary ---
Discharge Summary Date of Service September 05, 2024 Principal Dx & Hospital Course #1 = Principal Diagnosis (1) DKA (diabetic ketoacidosis): DM 2 insulin dependent, suboptimal control as of recent hemoglobin A1c of 7.9 last June 2024 He had not been taking his insulin for for the last few days and not checking his blood sugar Complains to have ongoing abdominal discomfort with nausea vomiting for the last few weeks Noted to have DKA with high anion gap metabolic acidosis He is S/P intravenous insulin. Diet started after n.p.o. status CCM consult and glycemic pharmacist input and recommendations Admit to ICU. ICU transfer to floor when stable Subcu insulin started. Monitor BS. Diabetic nurse education consult Tolerating diet reasonably given the history of severe gastroparesis (2) Atrial fibrillation with rapid ventricular response: Recurrent atrial flutter secondary to his acute illness He has chronic diastolic heart failure (EF 50 to 55%, TTE 2023), patient is euvolemic today History congenital heart surgery Presented with A-fib with RVR-Converted to SR. Anticoagulation held due to hx of GI bleed History of nonischemic cardiomyopathy secondary to significant alcohol use Was evaluated by department head college or [facility] during his admission in May and showed Improved EF to 50 to 55% in echo on 06/13/2024 (3) Gastroparesis due to DM: Has history of gastroparesis secondary to diabetes Recent EGD showed esophagitis and the CAT scan of the abdomen and pelvis has been showing esophageal thickening UGIB likely secondary to nausea vomiting symptoms from DKA, history esophagitis, history of GERD/gastroparesis, paroxysmal atrial flutter/unprovoked PE status post Xarelto, patient hemoglobin currently stable likely secondary to hemoconcentration No evidnce of GI bleed Continue PPI F/U with GI following discharge (4) Esophagitis: Significant esophagitis in CAT scan (5) Alcohol abuse: History of alcohol abuse No evidence of withdrawal symptoms (6) HTN (hypertension): Follow BPs (7) GERD (gastroesophageal reflux disease): On PPI Plan DVT prophylaxis. SCDs re: GI bleed risk Full code Pt improved. Insulin gtt was weaned. He was placed on SQ insulin. He was transferred to floor care. He was stable for discharge on this date. He was ambulating and tolerating po at discharge. Notes For Next Care Provider Medication Changes From Visit No longer takin Jardiance Short acting insulin with meals started Admission HPI Per Admitting Provider History obtained from patient and records. Medical history significant for chronic diastolic heart failure (EF 50 to 55%, TTE 2023), hx nonischemic cardiomyopathy ), history congenital heart surgery, hypertension, hyperlipidemia, paroxysmal atrial flutter/unprovoked PE status post Xarelto, DM2 insulin requiring, chronic abdominal pain, GERD, gastroparesis as per records, alcohol abuse as per records, past tobacco abuse, medical noncompliance as per records. Last confinement May 2024 for syncope secondary to hypotension/hypovolemia. Following discharge from hospital, patient noted chronic abdominal pain attributed to gastroparesis and GERD. Outpatient EGD last month by [facility] specialist showed hiatal hernia and esophagitis. Daily PPI recommended. Last week, patient noted coffee-ground emesis and dark later red bloody stools. With worsening of chronic achy going to the chest. Abdominal pain No unusual SOB. Denies headache symptoms. Denies OTC NSAID intake. Patient encountered problem with sugar monitor at home. Was cutting down on usual doses of insulin to be safe. BSG 500s upon arrival at the ER. Rapid atrial flutter heart rate 160s, SBP 100s later noted at the ER Medical History as above Surgical History : VSD surgery, ankle surgery, dental surgery, knee surgery Family History : DM Personal/Social history : Past tobacco abuse, alcohol abuse as per records which patient denies, currently unemployed Discharge Exam General- adult male seen at bedside Head- atraumatic Eyes- PERRL, EOMI, anicteric ENT- oropharynx clear Neck- supple, no JVD, no adenopathy, no thyromegaly; carotids +2/2, no bruits appreciated Lungs- clear to auscultation and percussion Heart- regular rhythm; no murmur, no gallop, no rub appreciated Abdomen- normal bowel sounds, soft, nontender, no masses or hepatosplenomegaly Extremities- no pretibial edema, no calf tenderness; peripheral pulses intact Neuro- alert, oriented x 3; PERRL, EOMI; no facial palsy; no dysarthria; motor 5/5 bilaterally; no cogwheel rigidity; patellar DTRs +2/2; toes downgoing bilaterally; finger to nose intact bilaterally Skin- warm & dry Updated Medication List Medication Instructions Recorded Confirmed Type atorvastatin 40 mg tablet 40 mg PO QAM 06/23/21 09/01/24 History ezetimibe 10 mg tablet 10 mg PO QAM 02/09/24 09/01/24 History fenofibrate nanocrystallized 145 145 mg PO QAM 02/09/24 09/01/24 History mg tablet gabapentin 300 mg capsule 300 mg PO TID 02/09/24 09/01/24 History insulin glargine 100 unit/mL (3 20 unit subcut QAM 02/09/24 09/01/24 History mL) subcutaneous pen metoprolol succinate 50 mg 75 mg PO QAM 02/09/24 09/01/24 History tablet,extended release 24 hr rivaroxaban 20 mg tablet (Xarelto) 20 mg PO QDD 03/24/24 09/01/24 History cholecalciferol (vitamin D3) 1,250 1,250 mcg PO WK 06/12/24 09/01/24 History mcg (50,000 unit) capsule pantoprazole 40 mg tablet,delayed 40 mg PO BID 06/12/24 09/01/24 History release triamcinolone acetonide 0.1 % 1 applic topical BID PRN Itching 06/12/24 09/01/24 History topical cream furosemide 20 mg tablet 20 mg PO UD PRN edema 07/30/24 09/01/24 History promethazine 6.25 mg/5 mL oral 6.25 mg PO AC gastroparesis 07/30/24 09/01/24 History syrup sacubitril 24 mg-valsartan 26 mg 0.5 tab PO BID 07/30/24 09/01/24 History tablet (Entresto) duloxetine 30 mg capsule,delayed 30 mg PO QAM 09/01/24 09/01/24 History release linaclotide 145 mcg capsule 145 mcg PO QDB 09/01/24 09/01/24 History magnesium citrate 120 ml PO DAILY PRN severe 09/01/24 09/01/24 History constipation metoclopramide HCl 10 mg tablet 10 mg PO TID 09/01/24 09/01/24 History spironolactone 25 mg tablet 25 mg PO QAM 09/01/24 09/01/24 History trazodone 50 mg tablet 50 mg PO HS 09/01/24 09/01/24 History insulin aspart U-100 100 unit/mL 1 sliding scale dose SC ACHS #1 09/05/24 Rx subcutaneous solution (Novolog vial U-100 Insulin aspart) Hospital Stay Data Consultations 09/01/24 20:07 ED Decision to Admit Stat 09/02/24 00:04 Consult Financial Services Director Routine Diagnostic Imagining Performed . Laboratory Results WBC 4.57 K/ul (4.8-10.8) L 09/05/24 06:22 RBC 5.33 M/uL (4.70-6.10) 09/05/24 06:22 Hgb 15.1 g/dl (14.0-18.0) 09/05/24 06:22 POC Hgb 17.3 g/dl (14.0-18.0) 09/01/24 20:40 Hct 45.2 % (42.0-52.0) 09/05/24 06:22 POC Hct 51 % (42-52) 09/01/24 20:40 MCV 84.8 fL (80.0-100.0) 09/05/24 06:22 MCH 28.3 pg (25.0-34.0) 09/05/24 06:22 MCHC 33.4 g/dL (32.0-36.0) 09/05/24 06:22 RDW Std Deviation 37.2 fL (36.4-46.3) 09/05/24 06:22 RDW Coeff of Trevon 12.2 % (11.5-14.5) 09/05/24 06:22 Plt Count 123 K/uL (130-400) L 09/05/24 06:22 MPV 11.9 fL (9.4-12.4) 09/05/24 06:22 Immature Gran % (Auto) 0.4 % 09/05/24 06:22 Neut % (Auto) 61.6 % 09/05/24 06:22 Lymph % (Auto) 26.5 % 09/05/24 06:22 Hill % (Auto) 9.0 % 09/05/24 06:22 Eos % (Auto) 1.8 % 09/05/24 06:22 Baso % (Auto) 0.7 % 09/05/24 06:22 Neut # (Auto) 2.82 K/uL (1.40-6.50) 09/05/24 06:22 Lymph # (Auto) 1.21 K/uL (1.20-3.40) 09/05/24 06:22 Hill # (Auto) 0.41 K/uL (0.11-0.59) 09/05/24 06:22 Eos # (Auto) 0.08 K/uL (0.00-0.50) 09/05/24 06:22 Baso # (Auto) 0.03 K/uL (0.00-0.20) 09/05/24 06:22 Immature Gran # (Auto) 0.02 K/uL (0.01-0.20) 09/05/24 06:22 Absolute Nucleated RBC Cancelled 09/03/24 07:21 Nucleated RBC % (auto) Cancelled 09/03/24 07:21 Neutrophils % (Manual) Cancelled 09/03/24 07:21 Band Neutrophils % Cancelled 09/03/24 07:21 Lymphocytes % (Manual) Cancelled 09/03/24 07:21 Prolymphocyte % Cancelled 09/03/24 07:21 Reactive Lymphs % (Man) Cancelled 09/03/24 07:21 Monocytes % (Manual) Cancelled 09/03/24 07:21 Eosinophils % (Manual) Cancelled 09/03/24 07:21 Basophils % (Manual) Cancelled 09/03/24 07:21 Metamyelocytes % (Man) Cancelled 09/03/24 07:21 Myelocytes % (Man) Cancelled 09/03/24 07:21 Promyelocytes % (Man) Cancelled 09/03/24 07:21 Blast Cells % (Manual) Cancelled 09/03/24 07:21 Plasma Cell % (Manual) Cancelled 09/03/24 07:21 Other Cells % Cancelled 09/03/24 07:21 Nucleated RBC % Cancelled 09/03/24 07:21 Neutrophils # (Manual) Cancelled 09/03/24 07:21 Band Neutrophils # Cancelled 09/03/24 07:21 Total Absolute Neuts Cancelled 09/03/24 07:21 Lymphocytes # (Manual) Cancelled 09/03/24 07:21 Prolymphocyte # Cancelled 09/03/24 07:21 Reactive Lymphs # Cancelled 09/03/24 07:21 Total Abs Lymphocytes Cancelled 09/03/24 07:21 Monocytes # (Manual) Cancelled 09/03/24 07:21 Eosinophils # (Manual) Cancelled 09/03/24 07:21 Basophils # (Manual) Cancelled 09/03/24 07:21 Metamyelocytes # (Man) Cancelled 09/03/24 07:21 Myelocytes # (Manual) Cancelled 09/03/24 07:21 Promyelocytes # (Man) Cancelled 09/03/24 07:21 Blast Cells # (Man) Cancelled 09/03/24 07:21 Plasma Cell # (Manual) Cancelled 09/03/24 07:21 Other Cells # Cancelled 09/03/24 07:21 Nucleated RBCs # (Man) Cancelled 09/03/24 07:21 Hypersegmented Neuts Cancelled 09/03/24 07:21 Hyposegmented Neuts Cancelled 09/03/24 07:21 Hypogranular Neuts Cancelled 09/03/24 07:21 Large Granular Lymphs Cancelled 09/03/24 07:21 # Lrg Granular Lymphs Cancelled 09/03/24 07:21 Hairy Cells Cancelled 09/03/24 07:21 Smudge Cells Cancelled 09/03/24 07:21 Toxic Granulation Cancelled 09/03/24 07:21 Toxic Vacuolation Cancelled 09/03/24 07:21 Dohle Bodies Cancelled 09/03/24 07:21 Sebas Rods Cancelled 09/03/24 07:21 Platelet Estimate Cancelled 09/03/24 07:21 Hypogranular Platelets Cancelled 09/03/24 07:21 Giant Platelets Cancelled 09/03/24 07:21 Platelet Satelliting Cancelled 09/03/24 07:21 RBC Morphology Cancelled 09/03/24 07:21 Polychromasia Cancelled 09/03/24 07:21 Hypochromasia Cancelled 09/03/24 07:21 Poikilocytosis Cancelled 09/03/24 07:21 Basophilic Stippling Cancelled 09/03/24 07:21 Anisocytosis Cancelled 09/03/24 07:21 Microcytosis Cancelled 09/03/24 07:21 Macrocytosis Cancelled 09/03/24 07:21 Spherocytes Cancelled 09/03/24 07:21 Pappenheimer Bodies Cancelled 09/03/24 07:21 Sickle Cells Cancelled 09/03/24 07:21 Target Cells Cancelled 09/03/24 07:21 Tear Drop Cells Cancelled 09/03/24 07:21 Ovalocytes Cancelled 09/03/24 07:21 Stomatocytes Cancelled 09/03/24 07:21 Kline-Galena Bodies Cancelled 09/03/24 07:21 Echinocytes Cancelled 09/03/24 07:21 Acanthocytes (Spur) Cancelled 09/03/24 07:21 Rouleaux Cancelled 09/03/24 07:21 RBC Agglutinates Cancelled 09/03/24 07:21 Schistocytes Cancelled 09/03/24 07:21 Sezary Cell Cancelled 09/03/24 07:21 PT 13.4 Seconds (9.0-12.0) H 09/01/24 20:01 INR 1.3 (0.9-1.1) H 09/01/24 20:01 APTT 28 Seconds (21-31) 09/01/24 20:01 PTT Ratio 1.0 09/01/24 20:01 Specimen Type Arterial 09/01/24 20:40 POC pH 7.13 (7.35-7.45) L* 09/01/24 20:40 POC pCO2 16 mmHg (35-46) L 09/01/24 20:40 POC pO2 120 mmHg (80-95) H 09/01/24 20:40 POC HCO3 5 sharmaine/L (19-24) L 09/01/24 20:40 POC Total CO2 6 mmol/L (24-31) L* 09/01/24 20:40 POC Base Excess -24.0 sharmaine/L (-9-1.8) L 09/01/24 20:40 POC ABG O2 Sat 97.0 % (90-95) H 09/01/24 20:40 VBG pH 7.40 (7.36-7.41) 09/02/24 11:30 VBG pCO2 35 mmHg (38-50) L 09/02/24 11:30 VBG pO2 33 mmHg 09/02/24 11:30 VBG HCO3 22 mmol/L 09/02/24 11:30 VBG O2 Saturation 65.3 % 09/02/24 11:30 VBG Base Excess -2.4 mEq/L 09/02/24 11:30 POC Sodium 134 mmol/L (135-144) L 09/01/24 20:40 Sodium 141 mmol/L (136-145) 09/05/24 06:22 POC Potassium 5.6 mmol/L (3.3-5.0) H 09/01/24 20:40 Potassium 4.2 mmol/L (3.5-5.1) 09/05/24 06:22 POC Chloride 103 mmol/L (101-112) 09/01/24 18:52 Chloride 103 mmol/L (98-107) 09/05/24 06:22 Carbon Dioxide 30 mmol/L (21-32) 09/05/24 06:22 POC Total CO2 9 mmol/L (24-31) L* 09/01/24 18:52 Anion Gap 8 (3-11) 09/05/24 06:22 POC Anion Gap 32.0 mmol/L (16-25) H 09/01/24 18:52 POC BUN 30 mg/dl (7-18) H 09/01/24 18:52 BUN 19 mg/dl (6-23) 09/05/24 06:22 Creatinine 0.97 mg/dl (0.6-1.4) 09/05/24 06:22 POC Creatinine 1.9 mg/dl (0.6-1.3) H 09/01/24 18:52 Est Cr Clr Drug Dosing 101.7 ml/min 09/05/24 06:22 eGFR 98.11 09/05/24 06:22 BUN/Creatinine Ratio 19.6 (10-20) 09/05/24 06:22 Glucose 201 mg/dl (70-99(Fasting)) H 09/05/24 06:22 POC Glucose 189 mg/dl (70-99) H 09/05/24 11:13 POC Glucose (other) 510 mg/dl (70-99) H* 09/01/24 18:52 Estimat Average Glucose 229 mg/dl 09/01/24 19:24 Hemoglobin A1c 9.6 % (4.5-5.6) H 09/01/24 19:24 Osmolality 335 mOsm/kg (280-300) H 09/01/24 18:45 Lactate 1.4 mmol/L (0.4-2.0) 09/02/24 03:21 Calcium 9.2 mg/dl (8.6-10.3) 09/05/24 06:22 POC Ioniz Calcium Kayla 1.10 mmol/l (1.12-1.32) L 09/01/24 18:52 Ionized Calcium 1.19 mmol/L (1.12-1.32) 09/01/24 23:58 Phosphorus < 1.0 mg/dl (2.5-4.9) L* D 09/02/24 03:21 Magnesium 3.9 mg/dl (1.7-2.4) H 09/02/24 03:21 Total Bilirubin 0.9 mg/dl (0.2-1.0) 09/01/24 18:45 AST 15 U/L (13-39) 09/01/24 18:45 ALT 27 U/L (7-52) 09/01/24 18:45 Alkaline Phosphatase 141 U/L (34-104) H 09/01/24 18:45 Troponin I High Sens 28.8 pg/ml (0-20) H 09/01/24 20:04 C-Reactive Protein < 0.50 mg/dl (0-0.5) 09/01/24 20:04 B-Natriuretic Peptide 348 pg/ml (0-100) H 09/01/24 18:45 Total Protein 9.1 gm/dl (6.0-8.3) H 09/01/24 18:45 Albumin 6.4 gm/dl (3.4-5.0) H 09/01/24 18:45 Globulin 2.7 gm/dl (2.5-4.0) 09/01/24 18:45 Albumin/Globulin Ratio 2.4 (0.9-2) H 09/01/24 18:45 Lipase 183 U/L (11-82) H 09/01/24 18:45 Procalcitonin 0.18 ng/ml (0-0.5) 09/01/24 18:45 Urine Color Yellow 09/01/24 20:51 Urine Appearance Clear (Clear) 09/01/24 20:51 Urine pH 5.0 (4.5-7.5) 09/01/24 20:51 Ur Specific [place] 1.040 (1.000-1.030) H 09/01/24 20:51 Urine Protein 1+ (Negative) H 09/01/24 20:51 Urine Glucose (UA) 3+ (Negative) H 09/01/24 20:51 Urine Ketones 3+ (Negative) H 09/01/24 20:51 Urine Blood Negative (Negative) 09/01/24 20:51 Urine Nitrite Negative (Negative) 09/01/24 20:51 Urine Bilirubin Negative (Negative) 09/01/24 20:51 Urine Urobilinogen Negative (Negative) 09/01/24 20:51 Ur Leukocyte Esterase Negative (Negative) 09/01/24 20:51 Urine WBC (Auto) 0-5 /hpf (0-5) 09/01/24 20:51 Urine RBC (Auto) 0-2 /hpf (0-2) 09/01/24 20:51 U Hyaline Cast (Auto) 6-10 /lpf (0-2) H 09/01/24 20:51 U Epithel Cells (Auto) 0-2 /hpf (0-2) 09/01/24 20:51 Urine Bacteria (Auto) None Seen (None Seen) 09/01/24 20:51 Hyaline Casts Present /lpf (None Presnt) A 09/01/24 20:51 Nasal Screen MRSA (PCR) Negative (Negative) 09/02/24 00:47 Salicylates < 3.0 mg/dl (3.0-30) L 09/02/24 01:17 Urine Opiates Screen Neg (Neg) 09/01/24 20:51 Ur Methadone, Qual Neg (Neg) 09/01/24 20:51 Urine Fentanyl Screen Neg (Neg) 09/01/24 20:51 Acetaminophen < 3 ug/ml (10-30) L 09/02/24 01:17 Urine Barbiturates Neg (Neg) 09/01/24 20:51 Ur Phencyclidine (PCP) Neg (Neg) 09/01/24 20:51 U Amphetamin/Meth Scrn Neg (Neg) 09/01/24 20:51 MDMA (Ecstasy) Screen Neg (Neg) 09/01/24 20:51 U Benzodiazepines Scrn Neg (Neg) 09/01/24 20:51 Ur Cocaine Metabolite Neg (Neg) 09/01/24 20:51 U Marijuana (THC) Screen Pos (Neg) H 09/01/24 20:51 Ethyl Alcohol mg/dL < 10.0 mg/dl (<10.0) 09/01/24 18:45 Blood Parasites ID Cancelled 09/03/24 07:21 Blood Type A Positive 09/01/24 23:58 Antibody Screen NEGATIVE 09/01/24 23:58 Impressions Abdomen/Pelvis CT 09/01/24 18:37 Exam(s): CT ABDOMEN + PELVIS With Contrast IV Amt: OPTIRAY [id number] EXAM: CT Abdomen and Pelvis With Intravenous Contrast CLINICAL HISTORY: vomiting. TECHNIQUE: Axial computed tomography images of the abdomen and pelvis with intravenous contrast. CTDI is 27.29 mGy and DLP is 847.05 mGy-cm. Automated exposure control was utilized for the study. A dose lowering technique was utilized adhering to the principles of ALARA. CONTRAST: Patient received OPTIRAY [id number] 116ML of IV contrast COMPARISON: CT abdomen and pelvis without contrast dated 06/12/2024 FINDINGS: Lung bases: Unremarkable. No mass. No consolidation. ABDOMEN: Liver: Unremarkable. No mass. Gallbladder and bile ducts: Unremarkable. No calcified stones. No ductal dilation. Pancreas: Unremarkable. No mass. No ductal dilation. Spleen: Stable presumed splenule medial to the spleen and posterior to the gastric fundus measuring 1.5 cm. Adrenals: Unremarkable. No mass. Kidneys and ureters: Unremarkable. No solid mass. No hydronephrosis. Stomach and bowel: The stomach is mildly fluid distended. No gastric mucosal thickening or retrograde distention of the distal thoracic esophagus. No evidence for bowel obstruction. No asymmetric mucosal abnormality. Mild stool burden. Scattered diverticulosis without definitive diverticulitis. PELVIS: Appendix: A normal caliber appendix is noted extending inferiorly from the cecum in the right lower quadrant. Bladder: Unremarkable. No mass. Reproductive: Unremarkable as visualized. ABDOMEN and PELVIS: Intraperitoneal space: Unremarkable. No free air. No significant fluid collection. Bones/joints: Similar multilevel degenerative changes throughout the thoracolumbar spine. No acute osseous abnormality. No dislocation. Soft tissues: Unremarkable. Vasculature: Unremarkable. No abdominal aortic aneurysm. Lymph nodes: Unremarkable. No enlarged lymph nodes. IMPRESSION: The stomach is mildly fluid distended. No gastric mucosal thickening or retrograde distention of the distal thoracic esophagus. No evidence for bowel obstruction. No asymmetric mucosal abnormality. Mild stool burden. Scattered diverticulosis without definitive diverticulitis. No free intraperitoneal fluid or pneumoperitoneum. Electronically signed by: Ayden Olmedo MD 09/01/24 20:37 PM Chest CTA 09/01/24 18:39 Exam(s): CTA CHEST IV Amt: OPTIRAY [id number] EXAM: CT Angiography Chest With Intravenous Contrast CLINICAL HISTORY: Evaluate for potential PE. TECHNIQUE: Axial computed tomographic angiography images of the chest with intravenous contrast. CTDI is 23.72 mGy and DLP is 1216.49 mGy-cm. Automated exposure control was utilized for the study. A dose lowering technique was utilized adhering to the principles of ALARA. MIP reconstructed images were created and reviewed. COMPARISON: CT chest without contrast dated 06/12/2024 FINDINGS: Pulmonary arteries: Attending for respiratory artifact, there is no definite evidence for pulmonary embolism. Aorta: The aorta is normal in caliber without dissection or aneurysm. Lungs: No focal airspace consolidation. Pleural space: Unremarkable. No significant effusion. No pneumothorax. Heart: Unremarkable. No cardiomegaly. No significant pericardial effusion. Mediastinum: Concentric mucosal thickening involving the distal thoracic esophagus. No evidence for obstruction or paraesophageal inflammatory changes. Bones/joints: No acute fracture. No dislocation. Soft tissues: Unremarkable. Lymph nodes: Unremarkable. No enlarged lymph nodes. IMPRESSION: 1. Attending for respiratory artifact, there is no definite evidence for pulmonary embolism. 2. Concentric mucosal thickening involving the distal thoracic esophagus. No evidence for obstruction or paraesophageal inflammatory changes. This was suggested on the previous CT examination but appears more prominent. Differential consideration includes advancing hypertrophic changes versus recurrent inflammatory or infectious esophagitis. 3. No focal airspace consolidation. No pleural effusion or pneumothorax. Electronically signed by: Ayden Olmedo MD 09/01/24 20:40 PM Pending Results Patient Have Any Pending Studies at Discharge: No Discharge Instructions Given to Patient (Per Discharging Provider) Follow up with your PCP in 3 days Make sure to take all of your meds and insulin as directed. Follow up with GI and cardiology Total Time Total Time Spent Total Time Spent (In Minutes): Total time spent in discharge planning was 40 minutes
[2024-09-05] MEDS: ACETAMINOPHEN 325 MG TAB PO PRN (13:25)
[2024-09-05 13:36] VITALS: BP 126/92; PULSE 87
== END 2024-09-05 14:15 | disposition home or self-care (01) | DRG 638 ==
LOC: ED 18:29 → 1E 23:14 → SUATTDRO 23:14 → 1E 23:59 → 2S 09-04 09:02
DX: Z56.0 Unemployment, unspecified; T38.3X6A Underdosing of insulin and oral hypoglycemic [antidiabetic] drugs, initial encounter; Z83.3 Family history of diabetes mellitus; K29.00 Acute gastritis without bleeding; Z82.49 Family history of ischemic heart disease and other diseases of the circulatory system; E11.10 Type 2 diabetes mellitus with ketoacidosis without coma; I11.0 Hypertensive heart disease with heart failure; Z91.128 Patient's intentional underdosing of medication regimen for other reason; N17.9 Acute kidney failure, unspecified; K29.50 Unspecified chronic gastritis without bleeding; K31.84 Gastroparesis; Z79.01 Long term (current) use of anticoagulants; E78.5 Hyperlipidemia, unspecified; Z88.8 Allergy status to other drugs, medicaments and biological substances; E66.9 Obesity, unspecified; Z79.4 Long term (current) use of insulin; Z86.718 Personal history of other venous thrombosis and embolism; Z79.899 Other long term (current) drug therapy; I50.22 Chronic systolic (congestive) heart failure; Z79.84 Long term (current) use of oral hypoglycemic drugs; Z88.5 Allergy status to narcotic agent; I48.91 Unspecified atrial fibrillation; I42.8 Other cardiomyopathies; Z68.32 Body mass index [BMI] 32.0-32.9, adult; F10.10 Alcohol abuse, uncomplicated; Z88.2 Allergy status to sulfonamides; K21.00 Gastro-esophageal reflux disease with esophagitis, without bleeding; Z86.711 Personal history of pulmonary embolism; E11.43 Type 2 diabetes mellitus with diabetic autonomic (poly)neuropathy; I48.92 Unspecified atrial flutter; Z87.891 Personal history of nicotine dependence

== ENCOUNTER 2024-10-28 03:15 | Inpatient (IN) ==
--- OUTSIDE RECORDS SUMMARY | 2024-10-28 03:24 | External Medical Summary | Summary of Care ---
Author Name Unknown Organization [facility] Address [address] [place] [address] Phone [phone] Care Team Providers Care Alarm Operator Name Role Phone Dany Caruso MD Primary Care Provide r Reason for Visit * Reason Comments Appointment Encounter Details Date Type Department Care Team ([facility] st Contact Info) Description 10/25/2024 6:10 PM [facility] Pharmacy Pharmacy, [address] [place] [id number] [place] [address] Type 2 diabetes mellitus with hemoglobin A1c goal of less than 8.0% ([facility])* Allergies Active Allergy Reactions Criticality Noted Date Comments Metformin Diarrhea High 11/21/2023 Morphine 12/27/2013 Nausea, vomiting, diaphoresis Semaglutide Psych complications High 11/21/2023 Sulfa Antibiotics Itching 10/04/2011 documented as of this encounter (statuses as of 10/25/2024) Medications Magnesium Oxide (Elemental) 400 MG Oral Tablet Take 400 mg by mouth in the morning. 2 Active Insulin Syringe 31G X /16" 0.3 [...] the morning. 90 Tablet 3 4 Active OneTouch Verio In Vitro Strip (Glucose Blood) Use as directed to test blood sugars up to three times daily DxE11.9 300 Strip 3 4 Active OneTouch Delica Lancets 33G Use as directed to test blood sugars up to three times daily DxE11.9 300 Each 3 4 Active Metoprolol Succinate ER 50 MG Oral Tablet Extended Release 24 Hour (toPROL XL)Indications:HF rEF (heart failure with reduced ejection fraction) ([facility]) Take 1.5 Tablets by mouth in the morning. 135 Tablet 2 4 Active BD Pen Needle Imelda 2nd Gen 32G X 4 MM (Insulin Pen Needle)Indication s:Type 2 diabetes mellitus with autonomic neuropathy, unspecified whether longterm insulin use ([facility]) USE WITH INSULIN ONCE DAILY 100 Each 1 4 Active Pantoprazole Sodium 40 MG Oral Tablet Delayed Release (Protonix)Indicat ions:Gastroesopha geal reflux disease without esophagitis Take 1 Tablet by mouth in the morning and 1 Tablet before bedtime. 30 minutes before the first meal of the day. Do not crush, split or chew the tablet. 60 Tablet 3 4 Active DULoxetine HCl 30 MG Oral Capsule Delayed Release Particles (Cymbalta)Indicat ions:Other chronic pain,Type 2 diabetes mellitus with diabetic autonomic neuropathy, with long-term current use of insulin ([facility]) Take 1 Capsule by mouth in the morning. Do not cut, crush or chew. 30 Capsule 5 4 Active Metoclopramide HCl 10 MG Oral Tablet (Reglan)Indicatio ns:Gastroparesis, Nausea without vomiting Take 1 Tablet by mouth in the morning and 1 Tablet at noon and 1 Tablet before bedtime. 90 Tablet 1 4 Active Sacubitril-Valsar silva 24-26 MG Oral Tablet (Entresto)Indicat ions:HTN, goal below 130/80,HFrEF (heart failure with reduced ejection fraction) ([facility]) Take 0.5 Tablets by mouth in the morning and 0.5 Tablets before bedtime. 4 Active traZODone HCl 50 MG Oral Tablet (Desyrel)Indicati ons:Insomnia, unspecified type Take 1 Tablet by mouth at bedtime. 30 Tablet 5 4 Active Spironolactone 25 MG Oral Tablet (Aldactone)Indica tions:HTN, goal below 130/80,HFrEF (heart failure with reduced ejection fraction) ([facility]) Take 0.5 Tablets by mouth in the morning. 45 Tablet 1 4 Active Additional Information Patient not taking.Reported on 10/14/2024 Rivaroxaban 20 MG Oral Tablet (Xarelto) Take 1 Tablet by mouth daily with dinner. 4 Active Empagliflozin 10 MG Oral Tablet (Jardiance) Take 1 Tablet by mouth in the morning. 30 Tablet 5 4 Active Furosemide 20 MG Oral Tablet (Lasix) TAKE 1 TABLET BY MOUTH DAILY. TAKE AN EXTRA TABLET IF WEIGHT GAIN 3 LBS IN 1 DAY OR 5 LBS IN 1 WEEK. 45 Tablet 5 4 Active Additional Information Patient not taking.Reported on 10/07/2024 Dexcom G7 Sensor Apply 1 sensor every 10 days. E11.9 3 Each 5 4 Active Magnesium Citrate Oral SolutionIndicatio ns:Other constipation,Need for case management follow-up Take 120 mL by mouth daily as needed for Constipation. for severe constipation. 240 mL 1 4 Active Promethazine HCl 6.25 MG/5ML Oral SolutionIndicatio ns:Need for case management follow-up,Gastrop aresis Take 6.25 mg by mouth in the morning and 6.25 mg at noon and 6.25 mg in the evening. Take before meals. 240 mL 1 4 Active OneTouch Verio w/Device KitIndications:Ty pe 2 diabetes mellitus with hemoglobin A1c goal of less than 7.0% ([facility]) Use to test once a day E11.9 1 Kit 4 Active Gabapentin 300 MG Oral Capsule (Neurontin)Indica tions:Neuropathy Take 1 Capsule by mouth in the morning and 1 Capsule at noon and 1 Capsule before bedtime. 90 Capsule 3 4 Active Insulin Glargine Solostar 100 UNIT/ML Subcutaneous Solution Pen-injector (Lantus SoloStar)Indicati ons:Type 2 diabetes mellitus with hemoglobin A1c goal of less than 7.0% ([facility]) Inject 20 Units under the skin in the morning. 15 mL 1 4 Active Linzess 290 MCG Oral Capsule (linaCLOtide) Take 1 Capsule by mouth daily before breakfast. 30 Capsule 3 4 Active Insulin Lispro (1 Unit Dial) 100 UNIT/ML Subcutaneous Solution Pen-injector (HumaLOG KwikPen) Inject 6 Units under the skin in the morning and 6 Units at noon and 6 Units in the evening. Inject with meals. Plus sliding scale. 15 mL 3 4 Active Triamcinolone Acetonide 0.1 % External Cream (Aristocort)Indic ations:Contact dermatitis, unspecified contact dermatitis type, unspecified trigger APPLY TO AFFECTED AREA TWICE A DAY NEEDED FOR ITCHING 60 g 4 Active Additional Information Patient not taking.Reported on 10/14/2024 Vitamin D3 1.25 MG (77131 UT) Oral CapsuleIndication s:Vitamin D deficiency Take 1 Capsule by mouth once a week. 12 Capsule 4 Active documented as of this encounter (statuses as of 10/25/2024) Active Problems Problem Noted Date Diagnosed Date History of pulmonary embolism 10/03/2024 Abnormal computed tomography angiography (CTA) of abdomen and pelvis 10/03/2024 Pneumoperitoneum 10/03/2024 Generalized abdominal pain 10/03/2024 Nausea 10/03/2024 History of pyloromyotomy 10/03/2024 Malnutrition of moderate degree 10/03/2024 Atrial flutter 09/10/2024 Type 2 diabetes mellitus with autonomic neuropat [...] as of this encounter (statuses as of 10/25/2024) Resolved Problems Problem Noted Date Diagnosed Date Resolved Date Type 2 diabetes mellitus wit h autonomic neuropathy 06/29/2022 12/19/2022 Neuropathy 04/07/2021 12/19/2022 Diabetic ketoacidosis withou t coma associated with type 2 diabetes mellitus 04/07/2021 05/06/2021 Overview (04/07/2021): 02/2021 Fatigue 11/13/2011 05/10/2022 Esophageal reflux 10/04/2011 04/07/2021 documented as of this encounter (statuses as of 10/25/2024) Immunizations Name Administration Dates Next Due Seasonal Influenza Vac., MDV, IM, 0.5 mL (Fluzon e) 10/04/2011 TDAP (age 10 and older)(Boostrix) 06/23/2021 [...] or have concerns for your saf ety? Yes 10/03/2024 Do you have concerns for you r family's safety? (Household - for ages 0-17 years) Not on file 10/03/2024 Utilities Answer Date Recorded Do you have trouble paying y our heating, water, or electric bill? Yes 10/03/2024 Is your family able to pay t he heat, water, or electric bill? (Household - for ages 0-17 years) Not on file 10/03/2024 Does your family have access to good internet? (Household - for ages 0-17 years) Not on file 10/03/2024 Employment Status Answer Date Recorded Are you [...] to medical visits or work? Never True 10/03/2024 Does your family have a hard time getting a ride to doctors visits? (Household - for ages 0-17 years) Not on file 10/03/2024 Has lack of transportation k ept you from medical appointments, meetings, work, or from getting things needed for daily living? Check all that apply. No 10/03/2024 Do you (or your family) have trouble finding or paying for a ride (transportation)? (Household - for ages 0-17 years) Not on file 10/03/2024 Housing Stability Answer Date Recorded Do you currently live in a s helter or have no steady place to sleep at night? No 10/03/2024 READ ONLY Do you think you a re at risk of becoming homeless? No 10/03/2024 Does your family worry about paying for your home or becoming homeless? (Household - for ages 0-17 years) Not on file 1 12/04/2023 Are you homeless or worried that you might be in the future? No 10/03/2024 Are you (or your family) carolina eless or worried that you might be in the future? (Household - for ages 0-17 years) Not on file Food Insecurity Answer Date Recorded Do you need food for this week? No 10/03/2024 Are you able to get enough f ood for your family? (Household - for ages 0-17 years) Not on file 10/03/2024 Does your family need food t his week? (Household - for ages 0-17 years) Not on file 10/03/2024 Do you always have enough fo od for your family? (Household - for ages 0-17 years) Not on file 10/03/2024 Sex and Gender Information Value Date Recorded Sex Assigned at Not on file Legal Sex Male 5:14 AM EST Gender Identity Not on file Sexual Orientation Not on file documented as of this encounter Functional Status * Are you deaf or do you have serious difficulty hearing? Answer Date of Assessment Author No 10/03/2024 8:18 AM Beatriz Kirk RN * Are you blind or do you have serious difficulty seeing, even when wearing glasses? Answer Date of Assessment Author No 10/03/2024 8:18 AM Beatriz Kirk RN * Do you have serious difficulty walking or climbing stairs? (5 years old or older) Answer Date of Assessment Author Yes 10/03/2024 8:18 AM Beatriz Kirk RN * Do you have difficulty dressing or bathing? (5 years old or older) Answer Date of Assessment Author Yes 10/03/2024 8:18 AM Beatriz Kirk RN * Because of a physical, mental, or emotional condition, do you have difficulty doing errands alone such as visiting a doctors office or shopping? (15 years old or older) Answer Date of Assessment Author Yes 10/03/2024 8:18 AM Beatriz Kirk RN documented as of this encounter Mental Status * Because of a physical, mental, or emotional condition, do you have serious difficulty concentrating, remembering, or making decisions? (5 years old or older) Answer Entry Date Author No 10/03/2024 8:18 AM Beatriz Kirk RN documented in this encounter Progress Notes * Abigail Domingo CPhT - 10/25/2024 8:04 AM EST Patient Phone Numbers Spoke with patient to schedule [facility] appointment for diabetes management. Appointment scheduled as noted below. 10/29/2024 Thank you, Abigail Domingo Technical Research Scientist [facility] 10/25/2024,8:04 AM documented in this encounter Plan of Treatment Upcoming Encounters Date Type Department Care Team (Late st Contact Info) Description 10/29/2024 2:30 PM EST Office Visit Pharmacy, [address] [place] [phone] [place] [id number] 01/08/2025 12:20 PM EDT Office Visit [address] [phone] Dany Caruso MD [address] [place] [address] [place] [phone] 03/10/2025 8:20 AM EDT Office Visit [address] [phone] Linda Vale CRNP [address] [place] [address] [place] [id number] 04/22/2025 10:30 AM EDT Office Visit Cardiology, [facility] [address] [place] [id number] Anthony Bateman MD [address] [place] [id number] Health Maintenance Due Date Last Done Comments HIV Screening 1994 Hepatitis C Screening 1997 Hepatitis B Vaccine (1 of 3 - 19+ 3-dose series) 1998 Pneumococcal Vaccine: Pediatrics (0 to 5 Years) and At-Risk Patients (6 to 18 Years and 19+ Years) (1 of 2 - PCV) 1998 Depression Screening 08/31/2023 08/31/2022 Albumin/Creatinine Ratio 05/18/2024 023, 07/06/2022, 03/24/2022, Additional history exists Cologuard 2024 Fecal Occult Blood Test 2024 Sigmoidoscopy 2024 COVID-19 Vaccine ( season) 2024 Influenza Vaccine (FLU shot) (#1) 2024 10/04/2011 Diabetic Eye Exam 12/15/2024 12/15/2023, , 03/31/2022, Additional history exists Diabetic Foot Exam 12/15/2024 12/15/2023, 0 12/19/2022, 05/06/2021 HbA1c 04/04/2025 10/04/2024, 09/22, 06/28/2024, Additional history exists GFR 10/06/2025 10/06/2024, 09/22, 10/04/2024, Additional history exists Lipid Panel 03/07/2029 03/07/2024, 11/24, 10/13/2023, Additional history exists DTap/Tdap Vaccines (3 - Td or Tdap) 06/23/2031 06/23/2021, 08/15/2011 Colonoscopy 10/14/2034 10/14/2024, 09/23, 10/01/2024, Additional history exists Colorectal Cancer Screening 10/14/2034 HPV (Gardasil) Vaccine Aged Out No lo nger eligible based on patient's age to complete this topic MENINGOCOCCAL (MENACTRA/MENVEO) Aged Out No longer eligible based on patient's age to complete this topic documented as of this encounter Medical Devices Not on filedocumented as of this encounter Visit Diagnoses Diagnosis Type 2 diabetes mellitus with hemoglobin A1c goal of less than 8.0% ([facility])- Primary documented in this encounter Advance Directives * Full Code (Latest Code Status on File) Date Activated Date Inactivated Comments 10/03/2024 7:04 AM 10/06/2024 7:44 PM This order reflects the patients wishes and were consensually agreed upon. Question Answer Comments Discussion of Advance Direct raudel occurred with: Not Discussed due to patient's condition Care Teams Alarm Operator Relationship Specialty Start Date End Date Dany Caruso MD [address] [place] [address] [place] [phone] PCP - General Family Medicine 04/07/21 documented as of this encounter
[2024-10-28] MEDS: SODIUM CHLORIDE 0.9% 1,000 ML IV ONE ×2 (03:42→04:45)
[2024-10-28] MEDS: diphenhydrAMINE 50 MG/ML VIAL IV STA (03:43)
[2024-10-28] MEDS: ONDANSETRON INJ 2 MG/ML 2 ML VIAL IV STA (03:43)
[2024-10-28 03:46] LABS: Base Excess VBG -9.7 mEq/L; HCO3 VBG 18 mmol/L; Oxygen Saturation VBG 69.8 %; PCO2 VBG 45 mmHg (38-50); PO2 VBG 44 mmHg; pH VBG 7.21 (7.36-7.41)
[2024-10-28 04:33] LABS: Albumin Globulin Ratio 1.7 (0.9-2); Albumin Level 5.8 gm/dl (3.4-5.0); BUN Creatinine Ratio 18.4 (10-20); Bilirubin,Total 0.7 mg/dl (0.2-1.0); Calcium 10.2 mg/dl (8.6-10.3); Creatinine Clr Calc Pharmacy 76.7 ml/min; Globulin 3.4 gm/dl (2.5-4.0); Magnesium 2.2 mg/dl (1.7-2.4); Potassium 4.8 mmol/L (3.5-5.1); Total Protein 9.2 gm/dl (6.0-8.3)
[2024-10-28 04:35] LABS: Basophils # (auto) 0.07 K/uL (0.00-0.20); Basophils % (auto) 0.4 %; Eosinophils # (auto) 0.01 K/uL (0.00-0.50); Eosinophils % (auto) 0.1 %; Hematocrit (blood only) 56.4 % (42.0-52.0); Hemoglobin 19.2 g/dl (14.0-18.0); Immature Granulocytes # (auto) 0.21 K/uL (0.01-0.20); Immature Granulocytes % (auto) 1.3 %; Lymphocytes # (auto) 1.32 K/uL (1.20-3.40); Lymphocytes % (auto) 7.9 %; Mean Corpuscular Hemoglobin 28.4 pg (25.0-34.0); Mean Corpuscular Volume 83.4 fL (80.0-100.0); Mean Platelet Volume 11.6 fL (9.4-12.4); Monocytes # (auto) 0.24 K/uL (0.11-0.59); Monocytes % (auto) 1.4 %; Neutrophils # (auto) 14.82 K/uL (1.40-6.50); Neutrophils % (auto) 88.9 %; Platelet Count 290 K/uL (130-400); RDW Coefficient of Variation 13.2 % (11.5-14.5); RDW Standard Deviation 37.7 fL (36.4-46.3); Red Blood Count 6.76 M/uL (4.70-6.10); White Blood Count 16.67 K/ul (4.8-10.8)
[2024-10-28 04:44] LABS: Adenovirus PCR Not Detected (NotDetected); Bordetella parapertussis PCR Not Detected (NotDetected); Bordetella pertussis PCR Not Detected (NotDetected); Chlamydia pneumoniae PCR Not Detected (NotDetected); Coronavirus 229E PCR Not Detected (NotDetected); Coronavirus CoV-2 (COVID19)PCR Not Detected (NotDetected); Coronavirus HKU1 PCR Not Detected (NotDetected); Coronavirus NL63 PCR Not Detected (NotDetected); Coronavirus OC43PCR Not Detected (NotDetected); Human Metapneumovirus PCR Not Detected (NotDetected); Influenza A PCR Not Detected (NotDetected); Influenza B PCR Not Detected (NotDetected); Mycoplasma pneumoniae PCR Not Detected (NotDetected); Parainfluenza Virus 1 PCR Not Detected (NotDetected); Parainfluenza Virus 2 PCR Not Detected (NotDetected); Parainfluenza Virus 3 PCR Not Detected (NotDetected); Parainfluenza Virus 4 PCR Not Detected (NotDetected); Respiratory Syncytial VirusPCR Not Detected (NotDetected); Rhinovirus/Enterovirus PCR Not Detected (NotDetected)
[2024-10-28] MEDS: NovoLIN-R INSULIN PER UNIT CHARGE IV STA (04:45)
--- NOTE | 2024-10-28 04:49 | Emergency Department Note ---
History of Present Illness General Chief complaint: Vomiting Stated complaint: vomiting, stomach pain Time Seen by Provider: 10/28/24 03:25 History of Present Illness Maximum Pain Intensity: 10 This is a 44-year-old male presenting to the emergency department for evaluation of nausea and vomiting symptoms. Patient has had symptoms for the past 12 or so hours. The patient has had identical symptoms like this several times in the past. He is a diabetic and is having difficulty tolerating food and fluids. Patient states he did take his insulin today, but has not checked his blood sugar as he was sleeping when he was not up vomiting. Patient did have some diarrhea today, however he has had diarrhea since starting Linzess. No fevers or chills. He rates his discomfort a 10/10. Home Medications Medication Instructions Recorded Confirmed Type atorvastatin 40 mg tablet 40 mg PO DAILY 10/28/24 10/28/24 History duloxetine 30 mg capsule,delayed 30 mg PO DAILY 10/28/24 10/28/24 History release empagliflozin 10 mg tablet 10 mg PO DAILY 10/28/24 10/28/24 History (Jardiance) ezetimibe 10 mg tablet 10 mg PO DAILY 10/28/24 10/28/24 History fenofibrate nanocrystallized 145 145 mg PO DAILY 10/28/24 10/28/24 History mg tablet gabapentin 300 mg capsule 300 mg PO TID 10/28/24 10/28/24 History insulin glargine 100 unit/mL (3 20 unit subcut DAILY 10/28/24 10/28/24 History mL) subcutaneous pen (Lantus Solostar U-100 Insulin) linaclotide 290 mcg capsule 290 mcg PO DAILY 10/28/24 10/28/24 History (Linzess) metoclopramide HCl 10 mg tablet 10 mg PO TID 10/28/24 10/28/24 History metoprolol succinate 50 mg 75 mg PO DAILY 10/28/24 10/28/24 History tablet,extended release 24 hr pantoprazole 40 mg tablet,delayed 40 mg PO BID 10/28/24 10/28/24 History release promethazine 6.25 mg/5 mL oral 6.25 mg PO AC 10/28/24 10/28/24 History syrup rivaroxaban 20 mg tablet (Xarelto) 20 mg PO HS 10/28/24 10/28/24 History sacubitril 24 mg-valsartan 26 mg 0.5 tab PO BID 10/28/24 10/28/24 History tablet (Entresto) trazodone 50 mg tablet 50 mg PO HS 10/28/24 10/28/24 History Allergies Allergy/AdvReac Type Severity Reaction Status Date / Time semaglutide [From Ozempic] Allergy Unknown Hallucinati Verified 08/08/24 08:20 ng Sulfa (Sulfonamide Allergy Unknown ITCHY/HOT Verified 08/08/24 08:20 Antibiotics) metformin AdvReac Unknown Diarrhea Verified 08/08/24 08:20 morphine AdvReac Unknown Nausea Verified 08/08/24 08:20 Past Med/Surg History Problem List Acute dehydration (Acute) Nausea and vomiting (Acute) Gastroparesis due to DM Atrial fibrillation with rapid ventricular response (Acute) Acute dehydration (Acute) Nausea & vomiting (Acute) Metabolic acidosis (Acute) DKA (diabetic ketoacidosis) (Acute) Atypical chest pain Heart failure with improved ejection fraction (HFimpEF) Diaphoresis (Acute) Tachycardia (Acute) Acute dehydration (Acute) Weakness (Acute) BONILLA (acute kidney injury) (Acute) Syncope (Acute) Syncope and collapse Dehydration (Acute) High anion gap metabolic acidosis (Acute) DKA (diabetic ketoacidosis) (Acute) Alcohol withdrawal Esophagitis Malnutrition Nausea & vomiting Constipation Weight loss Lactic acid acidosis Metabolic acidosis Intractable nausea and vomiting (Acute) BONILLA (acute kidney injury) (Acute) Deep vein thrombosis, lower left extremity Non-ischemic cardiomyopathy New onset of congestive heart failure (04/2022) Dyspnea (Acute) Pleural effusion, bilateral (Acute) Right bundle branch block Vitamin D deficiency 8.9 in 06/2019 HLD (hyperlipidemia) TG 2049, TC 301 in 06/2019 T2DM (type 2 diabetes mellitus) (Acute) Alcohol abuse Overweight (BMI 25.0-29.9) HTN (hypertension) GERD (gastroesophageal reflux disease) Medical History Diabetes Non-ischemic cardiomyopathy denies Pleural effusion current problem "hear failure causes directly" - monitored by pcp. Denies change from baseline. Right bundle branch block pt doesn't know, reports: "not right now " when asked about hx of irregular heart beats. GERD (gastroesophageal reflux disease) pt not sure Hyperlipidemia HTN (hypertension) Poor historian History of renal failure yrs and yrs ago, pt doesn't know details surrounding. History of chest pain (05/2024) May 2024 pt reports felt like heart failure, not dx with anything. Admitted April or May 2024 [facility] for dka ?. Pt poor historian. No re occurence of chest pain. History of congestive heart failure dx age 3 following heart sx. "doesn't ever go away" - monitored by pcp. History of DVT (deep vein thrombosis) early 2023. History of pulmonary embolism 04/2022 History of diabetic ketoacidosis April or May 2024 - hospitalized [place]. Pt poor historian. 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 Aunt Cardiac disorder Other No family history of adverse response to anesthesia Denies family history of Ovarian cancer Prostate cancer Myocardial infarction Breast cancer Colorectal cancer Social History Smoking Status: Current some day smoker Age Started Using Tobacco: 16; Age Quit Using Tobacco: 26; packs per day: 0.5; Second Hand Exposure: No; Do You Dip or Chew Tobacco: No; Hx Alcohol Use: Yes Alcohol type: beer Hx Substance Use: No Preferred Language: Mohawk Communication Ability: Effective Communication Ability Comment: poor historian Visual Impairment: No Limitations Hearing Ability: Normal 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 Beliefs That Will Affect Care: None marital status: Single Current Living Situation: Significant Other Current Living Situation Comment: stay with girlfriend current occupational status: employed current occupation: [employer] How many Children do You have: 0 Feels Safe at Home: Yes Dental Care, Regularly: Yes Physical Activity Frequency: 3-4 Times per Week Assistive Devices: None Review of Systems A total of 10 systems reviewed and were otherwise negative Physical Exam Vital Signs Vital Signs - 24 hr 10/28/24 03:21 10/28/24 03:48 Temperature 36.9 C Temperature Source Temporal Artery Scan Pulse Rate 92 H 85 Pulse Rhythm Regular Pulse Strength Normal Respiratory Rate 18 Respiratory Effort / Characteristics Non-Labored Spontaneous Respiratory Depth Normal Respiratory Pattern Regular Blood Pressure 150/106 H Blood Pressure Mean 120 Blood Pressure Position Sitting Pulse Oximetry 96 Oxygen Delivery Method Room Air Sepsis Recent Fever Within 48 Hours Yes Sepsis New/Unexplained Change in Mental Status N/A Sepsis Action Taken by Nursing No Action Required VITALS: Vitals are noted on the nurse's note and reviewed by myself. Vital signs stable. GENERAL: Well-developed, well-nourished, white male who appears uncomfortable and is dry heaving into an emesis bag. MOUTH: Mucous membranes dry. Tonsils are not enlarged. Pharynx without erythema, blood, or exudate. Uvula midline. Airway patent. NECK: Supple without nuchal rigidity. No lymphadenopathy. No thyromegaly. Cervical spine is nontender. HEART: Regular rate and rhythm without murmurs gallops or rubs. LUNGS: Clear to auscultation bilaterally without wheezes, rales or rhonchi. No retractions or accessory muscle use. ABDOMEN: Positive normal bowel sounds x 4. Soft, nontender, without masses or organomegaly. No guarding or rebound tenderness. MUSCULOSKELETAL: No muscle atrophy, erythema, or edema noted. Full range of motion in all extremities. NEURO: Patient was alert and oriented to person place and time. CN II through XII grossly intact. No focal neurological deficits. GCS 15 Course Administered Medications Discontinued Medications Diphenhydramine HCl (Diphenhydramine 50 Mg/Ml Vial) 50 mg IV NOW STA Stop: 10/28/24 03:33 Last Admin: 10/28/24 03:43 Dose: 50 mg Documented By: KISHORE Sodium Chloride (Nss) 1,000 mls @ 999 mls/hr IV .Q1H1M ONE Stop: 10/28/24 04:27 Last Infusion: 10/28/24 05:17 Dose: Infused Documented By: [facility] Admin: 10/28/24 03:42 Dose: 999 mls/hr Documented By: KISHORE Sodium Chloride (Nss) 1,000 mls @ 999 mls/hr IV .Q1H1M ONE Stop: 10/28/24 05:37 Last Admin: 10/28/24 04:45 Dose: 999 mls/hr Documented By: RON Insulin Human Regular (Novolin-R Insulin Per Unit Charge) 5 units IV NOW STA Stop: 10/28/24 04:35 Last Admin: 10/28/24 04:45 Dose: 5 units Documented By: RON Co-signed By: GARLAND Ondansetron HCl (Ondansetron Inj 2 Mg/Ml 2 Ml Vial) 4 mg IV NOW STA Stop: 10/28/24 03:33 Last Admin: 10/28/24 03:43 Dose: 4 mg Documented By: KISHORE Medical Decision Making Differential Diagnosis Differential diagnosis: Etiologies such as gastroenteritis, food borne illness, infections, appendicitis, diverticulitis, inflammatory bowel disease, obstruction, GI bleed, biliary pathology, cardiac process, intracranial process, as well as others were entertained. Laboratory Data 10/28/24 03:26 10/28/24 03:26 Lab Results 10/28/24 10/28/24 10/28/24 Range/Units 03:26 03:32 03:33 WBC 16.67 H (4.8-10.8) K/ul RBC 6.76 H (4.70-6.10) M/uL Hgb 19.2 H (14.0-18.0) g/dl Hct 56.4 H (42.0-52.0) % MCV 83.4 (80.0-100.0) fL MCH 28.4 (25.0-34.0) pg MCHC 34.0 (32.0-36.0) g/dL RDW Std Deviation 37.7 (36.4-46.3) fL RDW Coeff of Trevon 13.2 (11.5-14.5) % Plt Count 290 (130-400) K/uL MPV 11.6 (9.4-12.4) fL Immature Gran % (Auto) 1.3 % Neut % (Auto) 88.9 % Lymph % (Auto) 7.9 % [place] % (Auto) 1.4 % Eos % (Auto) 0.1 % Baso % (Auto) 0.4 % Neut # (Auto) 14.82 H (1.40-6.50) K/uL Lymph # (Auto) 1.32 (1.20-3.40) K/uL [place] # (Auto) 0.24 (0.11-0.59) K/uL Eos # (Auto) 0.01 (0.00-0.50) K/uL Baso # (Auto) 0.07 (0.00-0.20) K/uL Immature Gran # (Auto) 0.21 H (0.01-0.20) K/uL VBG pH 7.21 L (7.36-7.41) VBG pCO2 45 (38-50) mmHg VBG pO2 44 mmHg VBG HCO3 18 mmol/L VBG O2 Saturation 69.8 % VBG Base Excess -9.7 mEq/L Sodium 140 (136-145) mmol/L Potassium 4.8 (3.5-5.1) mmol/L Chloride 99 (98-107) mmol/L Carbon Dioxide 17 L (21-32) mmol/L Anion Gap 24 H (3-11) BUN 23 (6-23) mg/dl Creatinine 1.25 (0.6-1.4) mg/dl Est Cr Clr Drug Dosing 76.7 ml/min eGFR 72.37 BUN/Creatinine Ratio 18.4 (10-20) Glucose 339 H* (70-99(Fasting)) mg/dl POC Glucose 326 H* (70-99) mg/dl Calcium 10.2 (8.6-10.3) mg/dl Magnesium 2.2 (1.7-2.4) mg/dl Total Bilirubin 0.7 (0.2-1.0) mg/dl AST 20 (13-39) U/L ALT 22 (7-52) U/L Alkaline Phosphatase 116 H (34-104) U/L Total Protein 9.2 H (6.0-8.3) gm/dl Albumin 5.8 H (3.4-5.0) gm/dl Globulin 3.4 (2.5-4.0) gm/dl Albumin/Globulin Ratio 1.7 (0.9-2) Lipase 51 (11-82) U/L Urine Color Urine Appearance (Clear) Urine pH (4.5-7.5) Ur Specific [place] (1.000-1.030) Urine Protein (Negative) Urine Glucose (UA) (Negative) Urine Ketones (Negative) Urine Blood (Negative) Urine Nitrite (Negative) Urine Bilirubin (Negative) Urine Urobilinogen (Negative) Ur Leukocyte Esterase (Negative) Urine WBC (Auto) (0-5) /hpf Urine RBC (Auto) (0-2) /hpf U Hyaline Cast (Auto) (0-2) /lpf U Epithel Cells (Auto) (0-2) /hpf Urine Bacteria (Auto) (None Seen) Urine Opiates Screen (Neg) Ur Methadone, Qual (Neg) Urine Fentanyl Screen (Neg) Urine Barbiturates (Neg) Ur Phencyclidine (PCP) (Neg) U Amphetamin/Meth Scrn (Neg) MDMA (Ecstasy) Screen (Neg) U Benzodiazepines Scrn (Neg) Ur Cocaine Metabolite (Neg) U Marijuana (THC) Screen (Neg) Ethyl Alcohol mg/dL < 10.0 (<10.0) mg/dl Adenovirus (PCR) (NotDetected) B. pertussis DNA (PCR) (NotDetected) B.parapertussis DNA PCR (NotDetected) C. pneumoniae DNA (PCR) (NotDetected) Coronavirus OC43 (PCR) (NotDetected) Coronavirus HKU1 (PCR) (NotDetected) Coronavirus 229E (PCR) (NotDetected) SARS-CoV-2 (PCR) (NotDetected) Coronavirus NL63 (PCR) (NotDetected) Human Metapneumovir PCR (NotDetected) Influenza Type A (PCR) (NotDetected) Influenza Type B (PCR) (NotDetected) M. pneumoniae (PCR) (NotDetected) Parainfluenza 1 (PCR) (NotDetected) Parainfluenza 2 (PCR) (NotDetected) Parainfluenza 3 (PCR) (NotDetected) Parainfluenza 4 (PCR) (NotDetected) RSV (PCR) (NotDetected) Entero/Rhino (PCR) (NotDetected) 10/28/24 10/28/24 10/28/24 Range/Units 03:45 04:38 05:49 WBC (4.8-10.8) K/ul RBC (4.70-6.10) M/uL Hgb (14.0-18.0) g/dl Hct (42.0-52.0) % MCV (80.0-100.0) fL MCH (25.0-34.0) pg MCHC (32.0-36.0) g/dL RDW Std Deviation (36.4-46.3) fL RDW Coeff of Trevon (11.5-14.5) % Plt Count (130-400) K/uL MPV (9.4-12.4) fL Immature Gran % (Auto) % Neut % (Auto) % Lymph % (Auto) % [place] % (Auto) % Eos % (Auto) % Baso % (Auto) % Neut # (Auto) (1.40-6.50) K/uL Lymph # (Auto) (1.20-3.40) K/uL [place] # (Auto) (0.11-0.59) K/uL Eos # (Auto) (0.00-0.50) K/uL Baso # (Auto) (0.00-0.20) K/uL Immature Gran # (Auto) (0.01-0.20) K/uL VBG pH (7.36-7.41) VBG pCO2 (38-50) mmHg VBG pO2 mmHg VBG HCO3 mmol/L VBG O2 Saturation % VBG Base Excess mEq/L Sodium (136-145) mmol/L Potassium (3.5-5.1) mmol/L Chloride (98-107) mmol/L Carbon Dioxide (21-32) mmol/L Anion Gap (3-11) BUN (6-23) mg/dl Creatinine (0.6-1.4) mg/dl Est Cr Clr Drug Dosing ml/min eGFR BUN/Creatinine Ratio (10-20) Glucose (70-99(Fasting)) mg/dl POC Glucose 247 H (70-99) mg/dl Calcium (8.6-10.3) mg/dl Magnesium (1.7-2.4) mg/dl Total Bilirubin (0.2-1.0) mg/dl AST (13-39) U/L ALT (7-52) U/L Alkaline Phosphatase (34-104) U/L Total Protein (6.0-8.3) gm/dl Albumin (3.4-5.0) gm/dl Globulin (2.5-4.0) gm/dl Albumin/Globulin Ratio (0.9-2) Lipase (11-82) U/L Urine Color Yellow Urine Appearance Clear (Clear) Urine pH 5.0 (4.5-7.5) Ur Specific [place] 1.039 H (1.000-1.030) Urine Protein 1+ H (Negative) Urine Glucose (UA) 3+ H (Negative) Urine Ketones 1+ H (Negative) Urine Blood Negative (Negative) Urine Nitrite Negative (Negative) Urine Bilirubin Negative (Negative) Urine Urobilinogen Negative (Negative) Ur Leukocyte Esterase Negative (Negative) Urine WBC (Auto) 0-5 (0-5) /hpf Urine RBC (Auto) 0-2 (0-2) /hpf U Hyaline Cast (Auto) 0-2 (0-2) /lpf U Epithel Cells (Auto) 0-2 (0-2) /hpf Urine Bacteria (Auto) None Seen (None Seen) Urine Opiates Screen Neg (Neg) Ur Methadone, Qual Neg (Neg) Urine Fentanyl Screen Neg (Neg) Urine Barbiturates Neg (Neg) Ur Phencyclidine (PCP) Neg (Neg) U Amphetamin/Meth Scrn Neg (Neg) MDMA (Ecstasy) Screen Neg (Neg) U Benzodiazepines Scrn Neg (Neg) Ur Cocaine Metabolite Neg (Neg) U Marijuana (THC) Screen Pos H (Neg) Ethyl Alcohol mg/dL (<10.0) mg/dl Adenovirus (PCR) Not Detected (NotDetected) B. pertussis DNA (PCR) Not Detected (NotDetected) B.parapertussis DNA PCR Not Detected (NotDetected) C. pneumoniae DNA (PCR) Not Detected (NotDetected) Coronavirus OC43 (PCR) Not Detected (NotDetected) Coronavirus HKU1 (PCR) Not Detected (NotDetected) Coronavirus 229E (PCR) Not Detected (NotDetected) SARS-CoV-2 (PCR) Not Detected (NotDetected) Coronavirus NL63 (PCR) Not Detected (NotDetected) Human Metapneumovir PCR Not Detected (NotDetected) Influenza Type A (PCR) Not Detected (NotDetected) Influenza Type B (PCR) Not Detected (NotDetected) M. pneumoniae (PCR) Not Detected (NotDetected) Parainfluenza 1 (PCR) Not Detected (NotDetected) Parainfluenza 2 (PCR) Not Detected (NotDetected) Parainfluenza 3 (PCR) Not Detected (NotDetected) Parainfluenza 4 (PCR) Not Detected (NotDetected) RSV (PCR) Not Detected (NotDetected) Entero/Rhino (PCR) Not Detected (NotDetected) MDM Narrative Physical exam and history were performed. Nursing notes, EMR, and Medication List were personally reviewed. No social concerns were identified as barriers to patients care. Patient appears to have nausea and vomiting bringing him to the ER. Patient has had symptoms like this several times in the past. IV access was established and labs were obtained. He was hydrated normal saline. He was given IV Benadryl and IV Zofran for nausea symptoms. Bedside glucose is 326. Patient's blood work is as above and was reviewed. He does have an elevated white count of 16,000. He is also hemoconcentrated with a hemoglobin of 19.2. VBG does show acidosis at 7.21. Anion gap is 24. Lab glucose is 339. Patient was given additional fluids as well as IV insulin. Overall the patient does not appear well for discharge home and escalation of care is felt to be necessary. Case was discussed with the on-call hospitalist, who agreed to evaluate the patient here in the ER. Please see their dictation for further patient course, plan, disposition. The chart was completed utilizing [employer] Speech Voice Recognition Software. Grammatical errors, random word insertions, pronoun errors, and incomplete sentences are an occasional consequence of this system due to software limitations, ambient noise, and hardware issues. Any formal questions or concerns about the content, text, or information contained within the body of this dictation should be directly addressed to the provider for clarification. Impression & Plan DKA (diabetic ketoacidosis), Nausea and vomiting Discharge Plan Visit Data Chief Complaint: Vomiting Stated Complaint: vomiting, stomach pain ED Provider: Juan Johnston ED Midlevel Provider: Isreal Davidson Discharge Problem: DKA (diabetic ketoacidosis), Nausea and vomiting Forms Stand Alone Forms: My [facility] [employer] Prescriptions Prescriptions: No Action atorvastatin 40 mg tablet 40 mg PO DAILY trazodone 50 mg tablet 50 mg PO HS metoprolol succinate 50 mg tablet extended release 24 hr 75 mg PO DAILY promethazine 6.25 mg/5 mL syrup 6.25 mg PO AC pantoprazole 40 mg tablet,delayed release (DR/EC) 40 mg PO BID gabapentin 300 mg capsule 300 mg PO TID metoclopramide HCl 10 mg tablet 10 mg PO TID ezetimibe 10 mg tablet 10 mg PO DAILY duloxetine 30 mg capsule,delayed release(DR/EC) 30 mg PO DAILY fenofibrate nanocrystallized 145 mg tablet 145 mg PO DAILY insulin glargine [Lantus Solostar U-100 Insulin] 100 unit/mL (3 mL) insulin pen 20 unit SUBCUT DAILY Xarelto 20 mg tablet 20 mg PO HS Linzess 290 mcg capsule 290 mcg PO DAILY Jardiance 10 mg tablet 10 mg PO DAILY sacubitril-valsartan [Entresto] 24-26 mg tablet 0.5 tab PO BID Referrals Referrals: Dany Caruso MD [Primary Care Provider] -
[2024-10-28 04:52] LABS: Appearance Urine Clear (Clear); Bacteria Urine Automated None Seen (None Seen); Bilirubin Urine Negative (Negative); Blood Urine Negative (Negative); Cast Urine Automated 0-2 /lpf (0-2); Color Urine Yellow; Epithelial Cell Urine Auto 0-2 /hpf (0-2); Glucose Urine UA 3+ (Negative); Ketones Urine 1+ (Negative); Leukocyte Esterase Urine Negative (Negative); Nitrite Urine Negative (Negative); Protein Urine 1+ (Negative); RBC Urine Automated 0-2 /hpf (0-2); Specific Gravity Urine 1.039 (1.000-1.030); Urobilinogen Urine Negative (Negative); WBC Urine Automated 0-5 /hpf (0-5)
[2024-10-28 05:11] LABS: Amphetamines+Metham, Urine Neg (Neg); Barbiturates, Urine Neg (Neg); Benzodiazepine, Urine Neg (Neg); Cocaine, Urine Neg (Neg); Fentanyl, Urine Neg (Neg); MDMA (Ecstacy), Urine Neg (Neg); Marijuana, Urine Pos (Neg); Methadone, Urine Neg (Neg); Opiate, Urine Neg (Neg); Phencyclidine, Urine Neg (Neg)
[2024-10-28] MEDS ORDERED: STAT IV Infusion **Titration per Protocol STA ×2 (05:49→07:11)
[2024-10-28] MEDS ORDERED: PHARMACY GLYCEMIC MGMT CONSULT PRN ×2 (05:49→07:11)
[2024-10-28] MEDS ORDERED: PENDING D5 1/2NS+20mEq KCL IVF SCH (06:00)
--- NOTE | 2024-10-28 06:07 | History & Physical Report ---
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 Patient says since yesterday 3 PM having lot of nausea and vomiting and abdominal pain. No blood in the vomitus. Yesterday had an episode of loose stools. Denies any chest pain. Has some shortness of breath. Denies cough. No fevers. No headache or dizziness. No blurred vision. No earache or runny nose or sore throat. Hemodynamics are okay. Patient was in the ER at [facility] on 10/02/2024 and found to have pneumoperitoneum and as he had EGD and status post POEM pyloromyotomy for gastroparesis at [facility] [address] on 10/01/2024 patient was transferred to [place] .Was started on antibiotics. Patient states he was observed on antibiotics at [facility] [address] and seems did okay and was discharged. Patient had admissions for DKA in the past. Urine drug screen positive for marijuana today. DKA Insulin drip protocol per DKA protocol Fluids per protocol Close follow the labs per protocol N.p.o. for now Glycemic pharmacy consult Hold home insulin and p.o. medication Patient seems not taking his NovoLog Dietitian consult when stable Nausea vomiting abdominal pain most from DKA Recent history of pneumoperitoneum Will follow CT abdomen pelvis Shortness of breath Most from DKA We will follow chest x-ray History of heart failure with reduced ejection fraction EF 20 to 25% echo done 04/2022 EF 35-39 percent on echo done 10/2022 EF 50 to 55% on echo done on 05/2024 Currently not on diuretics Continue Entresto and metoprolol succinate Monitor for volume overload Hypertension On metoprolol succinate Hyperlipidemia Statin, Zetia and fenofibrate GERD Hold p.o. Protonix IV Protonix for now Gastroparesis Holding home p.o. promethazine and Reglan for now IV Reglan as needed for now f/u ekg for any qt prolongation Follow-up with GI History of PE On Xarelto History of atrial flutter Metoprolol succinate and Xarelto DVT prophylaxis On Xarelto Disposition Telemetry Full code. 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 Patient says since yesterday 3 PM having lot of nausea and vomiting and abdominal pain. No blood in the vomitus. Yesterday had an episode of loose stools. Denies any chest pain. Has some shortness of breath. Denies cough. No fevers. No heada sienna or dizziness. No blurred vision. No earache or runny nose or sore throat. Hemodynamics are okay. Patient was in the ER at [facility] on 10/02/2024 and found to have pneumoperitoneum and as he had EGD and status post POEM pyloromyotomy for gastroparesis at [facility] [address] on 10/01/2024 patient was transferred to [place] .Was started on antibiotics. Patient states he was observed on antibiotics at [facility] [address] and seems did okay and was discharged. Patient had admissions for DKA in the past. Urine drug screen positive for marijuana today. Past medical history. As mentioned above Past surgical history. Open heart surgery for 2 holes in ventricular septum at age of 3. Colonoscopy. EGD. EGD with biopsy. EGD with endoscopic ultrasound. Lower esophageal myotomy(POEM) Social history quit smoking 2017. Smoked 1 pack a day for 4 years. Alcohol around the holidays. No drug use. Family history. No family history on file. Allergies Allergy/AdvReac Type Severity Reaction Status Date / Time semaglutide [From Ozempic] Allergy Unknown Hallucinati Verified 08/08/24 08:20 ng Sulfa (Sulfonamide Allergy Unknown ITCHY/HOT Verified 08/08/24 08:20 Antibiotics) metformin AdvReac Unknown Diarrhea Verified 08/08/24 08:20 morphine AdvReac Unknown Nausea Verified 08/08/24 08:20 Home Medications Medication Instructions Recorded Confirmed Type atorvastatin 40 mg tablet 40 mg PO DAILY 10/28/24 10/28/24 History duloxetine 30 mg capsule,delayed 30 mg PO DAILY 10/28/24 10/28/24 History release empagliflozin 10 mg tablet 10 mg PO DAILY 10/28/24 10/28/24 History (Jardiance) ezetimibe 10 mg tablet 10 mg PO DAILY 10/28/24 10/28/24 History fenofibrate nanocrystallized 145 145 mg PO DAILY 10/28/24 10/28/24 History mg tablet gabapentin 300 mg capsule 300 mg PO TID 10/28/24 10/28/24 History insulin glargine 100 unit/mL (3 20 unit subcut DAILY 10/28/24 10/28/24 History mL) subcutaneous pen (Lantus Solostar U-100 Insulin) linaclotide 290 mcg capsule 290 mcg PO DAILY 10/28/24 10/28/24 History (Linzess) metoclopramide HCl 10 mg tablet 10 mg PO TID 10/28/24 10/28/24 History metoprolol succinate 50 mg 75 mg PO DAILY 10/28/24 10/28/24 History tablet,extended release 24 hr pantoprazole 40 mg tablet,delayed 40 mg PO BID 10/28/24 10/28/24 History release promethazine 6.25 mg/5 mL oral 6.25 mg PO AC 10/28/24 10/28/24 History syrup rivaroxaban 20 mg tablet (Xarelto) 20 mg PO HS 10/28/24 10/28/24 History sacubitril 24 mg-valsartan 26 mg 0.5 tab PO BID 10/28/24 10/28/24 History tablet (Entresto) trazodone 50 mg tablet 50 mg PO HS 10/28/24 10/28/24 History Past Med/Surg History Problem List Acute dehydration (Acute) Nausea and vomiting (Acute) Gastroparesis due to DM Atrial fibrillation with rapid ventricular response (Acute) Acute dehydration (Acute) Nausea & vomiting (Acute) Metabolic acidosis (Acute) DKA (diabetic ketoacidosis) (Acute) Atypical chest pain Heart failure with improved ejection fraction (HFimpEF) Diaphoresis (Acute) Tachycardia (Acute) Acute dehydration (Acute) Weakness (Acute) BONILLA (acute kidney injury) (Acute) Syncope (Acute) Syncope and collapse Dehydration (Acute) High anion gap metabolic acidosis (Acute) DKA (diabetic ketoacidosis) (Acute) Alcohol withdrawal Esophagitis Malnutrition Nausea & vomiting Constipation Weight loss Lactic acid acidosis Metabolic acidosis Intractable nausea and vomiting (Acute) BONILLA (acute kidney injury) (Acute) Deep vein thrombosis, lower left extremity Non-ischemic cardiomyopathy New onset of congestive heart failure (04/2022) Dyspnea (Acute) Pleural effusion, bilateral (Acute) Right bundle branch block Vitamin D deficiency 8.9 in 06/2019 HLD (hyperlipidemia) TG 2049, TC 301 in 06/2019 T2DM (type 2 diabetes mellitus) (Acute) Alcohol abuse Overweight (BMI 25.0-29.9) HTN (hypertension) GERD (gastroesophageal reflux disease) Medical History Diabetes Non-ischemic cardiomyopathy denies Pleural effusion current problem "hear failure causes directly" - monitored by pcp. Denies change from baseline. Right bundle branch block pt doesn't know, reports: "not right now " when asked about hx of irregular heart beats. GERD (gastroesophageal reflux disease) pt not sure Hyperlipidemia HTN (hypertension) Poor historian History of renal failure yrs and yrs ago, pt doesn't know details surrounding. History of chest pain (05/2024) May 2024 pt reports felt like heart failure, not dx with anything. Admitted April or May 2024 [facility] for dka ?. Pt poor historian. No re occurence of chest pain. History of congestive heart failure dx age 3 following heart sx. "doesn't ever go away" - monitored by pcp. History of DVT (deep vein thrombosis) early 2023. History of pulmonary embolism 04/2022 History of diabetic ketoacidosis April or May 2024 - hospitalized ma. Pt poor historian. 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 Aunt Cardiac disorder Other No family history of adverse response to anesthesia Denies family history of Ovarian cancer Prostate cancer Myocardial infarction Breast cancer Colorectal cancer Social History Smoking Status: Current some day smoker Age Started Using Tobacco: 16; Age Quit Using Tobacco: 26; packs per day: 0.5; Second Hand Exposure: No; Do You Dip or Chew Tobacco: No; Hx Alcohol Use: Yes Alcohol type: beer Hx Substance Use: No Preferred Language: Khmer Communication Ability: Effective Communication Ability Comment: poor historian Visual Impairment: No Limitations Hearing Ability: Normal Web Design Instructor Required: No Beliefs That Will Affect Care: None marital status: Single Current Living Situation: Significant Other Current Living Situation Comment: stay with girlfriend current occupational status: employed current occupation: [employer] How many Children do You have: 0 Feels Safe at Home: Yes Dental Care, Regularly: Yes Physical Activity Frequency: 3-4 Times per Week Assistive Devices: None Review of Systems Review of Systems: All systems reviewed & are unremarkable except as noted in HPI & below Physical Exam Physical Exam: General- Not in distress Head- atraumatic Eyes- PERRL. ENT- oropharynx clear Neck- supple, no JVD. Lungs- clear to auscultation no wheezing or crackles. Heart- regular rate and rhythm; no murmur, no gallop. Abdomen- normal bowel sounds, soft, nontender, no distension Extremities- no pretibial edema, no erythema Neuro- alert, oriented PERRL, no facial palsy; no dysarthria; moves extremities Results & Data Results & Data Vital Signs (Past 12 Hours) Vital Signs Temp Pulse Resp BP Pulse Ox O2 Del Method 10/28/24 03:48 85 10/28/24 03:21 36.9 C 92 H 18 150/106 H 96 Room Air Diagnostic Findings Laboratory Results WBC 16.67 K/ul (4.8-10.8) H 10/28/24 03:26 RBC 6.76 M/uL (4.70-6.10) H 10/28/24 03:26 Hgb 19.2 g/dl (14.0-18.0) H 10/28/24 03:26 Hct 56.4 % (42.0-52.0) H 10/28/24 03:26 MCV 83.4 fL (80.0-100.0) 10/28/24 03:26 MCH 28.4 pg (25.0-34.0) 10/28/24 03: MCHC 34.0 g/dL (32.0-36.0) 10/28/24 03: RDW Std Deviation 37.7 fL (36.4-46.3) 10/28/24 03: RDW Coeff of Trevon 13.2 % (11.5-14.5) 10/28/24 03: Plt Count 290 K/uL (130-400) 10/28/24 03: MPV 11.6 fL (9.4-12.4) 10/28/24 03:26 Immature Gran % (Auto) 1.3 % 10/28/24 03:26 Neut % (Auto) 88.9 % 10/28/24 03:26 Lymph % (Auto) 7.9 % 10/28/24 03:26 Preston % (Auto) 1.4 % 10/28/24 03:26 Eos % (Auto) 0.1 % 10/28/24 03:26 Baso % (Auto) 0.4 % 10/28/24 03:26 Neut # (Auto) 14.82 K/uL (1.40-6.50) H 10/28/24 03:26 Lymph # (Auto) 1.32 K/uL (1.20-3.40) 10/28/24 03:26 Preston # (Auto) 0.24 K/uL (0.11-0.59) 10/28/24 03:26 Eos # (Auto) 0.01 K/uL (0.00-0.50) 10/28/24 03:26 Baso # (Auto) 0.07 K/uL (0.00-0.20) 10/28/24 03:26 Immature Gran # (Auto) 0.21 K/uL (0.01-0.20) H 10/28/24 03:26 VBG pH 7.21 (7.36-7.41) L 10/28/24 03:33 VBG pCO2 45 mmHg (38-50) 10/28/24 03:33 VBG pO2 44 mmHg 10/28/24 03:33 VBG HCO3 18 mmol/L 10/28/24 03:33 VBG O2 Saturation 69.8 % 10/28/24 03:33 VBG Base Excess -9.7 mEq/L 10/28/24 03:33 Sodium 140 mmol/L (136-145) 10/28/24 03:26 Potassium 4.8 mmol/L (3.5-5.1) 10/28/24 03:26 Chloride 99 mmol/L (98-107) 10/28/24 03:26 Carbon Dioxide 17 mmol/L (21-32) L 10/28/24 03:26 Anion Gap 24 (3-11) H 10/28/24 03:26 BUN 23 mg/dl (6-23) 10/28/24 03:26 Creatinine 1.25 mg/dl (0.6-1.4) 10/28/24 03:26 Est Cr Clr Drug Dosing 76.7 ml/min 10/28/24 03:26 eGFR 72.37 10/28/24 03:26 BUN/Creatinine Ratio 18.4 (10-20) 10/28/24 03:26 Glucose 339 mg/dl (70-99(Fasting)) H* 10/28/24 03:26 POC Glucose 247 mg/dl (70-99) H 10/28/24 05:49 Calcium 10.2 mg/dl (8.6-10.3) 10/28/24 03:26 Magnesium 2.2 mg/dl (1.7-2.4) 10/28/24 03:26 Total Bilirubin 0.7 mg/dl (0.2-1.0) 10/28/24 03:26 AST 20 U/L (13-39) 10/28/24 03:26 ALT 22 U/L (7-52) 10/28/24 03:26 Alkaline Phosphatase 116 U/L (34-104) H 10/28/24 03:26 Total Protein 9.2 gm/dl (6.0-8.3) H 10/28/24 03:26 Albumin 5.8 gm/dl (3.4-5.0) H 10/28/24 03:26 Globulin 3.4 gm/dl (2.5-4.0) 10/28/24 03:26 Albumin/Globulin Ratio 1.7 (0.9-2) 10/28/24 03:26 Lipase 51 U/L (11-82) 10/28/24 03:26 Urine Color Yellow 10/28/24 04:38 Urine Appearance Clear (Clear) 10/28/24 04:38 Urine pH 5.0 (4.5-7.5) 10/28/24 04:38 Ur Specific Wardell 1.039 (1.000-1.030) H 10/28/24 04:38 Urine Protein 1+ (Negative) H 10/28/24 04:38 Urine Glucose (UA) 3+ (Negative) H 10/28/24 04:38 Urine Ketones 1+ (Negative) H 10/28/24 04:38 Urine Blood Negative (Negative) 10/28/24 04:38 Urine Nitrite Negative (Negative) 10/28/24 04:38 Urine Bilirubin Negative (Negative) 10/28/24 04:38 Urine Urobilinogen Negative (Negative) 10/28/24 04:38 Ur Leukocyte Esterase Negative (Negative) 10/28/24 04:38 Urine WBC (Auto) 0-5 /hpf (0-5) 10/28/24 04:38 Urine RBC (Auto) 0-2 /hpf (0-2) 10/28/24 04:38 U Hyaline Cast (Auto) 0-2 /lpf (0-2) 10/28/24 04:38 U Epithel Cells (Auto) 0-2 /hpf (0-2) 10/28/24 04:38 Urine Bacteria (Auto) None Seen (None Seen) 10/28/24 04:38 Urine Opiates Screen Neg (Neg) 10/28/24 04:38 Ur Methadone, Qual Neg (Neg) 10/28/24 04:38 Urine Fentanyl Screen Neg (Neg) 10/28/24 04:38 Urine Barbiturates Neg (Neg) 10/28/24 04:38 Ur Phencyclidine (PCP) Neg (Neg) 10/28/24 04:38 U Amphetamin/Meth Scrn Neg (Neg) 10/28/24 04:38 MDMA (Ecstasy) Screen Neg (Neg) 10/28/24 04:38 U Benzodiazepines Scrn Neg (Neg) 10/28/24 04:38 Ur Cocaine Metabolite Neg (Neg) 10/28/24 04:38 U Marijuana (THC) Screen Pos (Neg) H 10/28/24 04:38 Ethyl Alcohol mg/dL < 10.0 mg/dl (<10.0) 10/28/24 03:26 Adenovirus (PCR) Not Detected (NotDetected) 10/28/24 03:45 B. pertussis DNA (PCR) Not Detected (NotDetected) 10/28/24 03:45 B.parapertussis DNA PCR Not Detected (NotDetected) 10/28/24 03:45 C. pneumoniae DNA (PCR) Not Detected (NotDetected) 10/28/24 03:45 Coronavirus OC43 (PCR) Not Detected (NotDetected) 10/28/24 03:45 Coronavirus HKU1 (PCR) Not Detected (NotDetected) 10/28/24 03:45 Coronavirus 229E (PCR) Not Detected (NotDetected) 10/28/24 03:45 SARS-CoV-2 (PCR) Not Detected (NotDetected) 10/28/24 03:45 Coronavirus NL63 (PCR) Not Detected (NotDetected) 10/28/24 03:45 Human Metapneumovir PCR Not Detected (NotDetected) 10/28/24 03:45 Influenza Type A (PCR) Not Detected (NotDetected) 10/28/24 03:45 Influenza Type B (PCR) Not Detected (NotDetected) 10/28/24 03:45 M. pneumoniae (PCR) Not Detected (NotDetected) 10/28/24 03:45 Parainfluenza 1 (PCR) Not Detected (NotDetected) 10/28/24 03:45 Parainfluenza 2 (PCR) Not Detected (NotDetected) 10/28/24 03:45 Parainfluenza 3 (PCR) Not Detected (NotDetected) 10/28/24 03:45 Parainfluenza 4 (PCR) Not Detected (NotDetected) 10/28/24 03:45 RSV (PCR) Not Detected (NotDetected) 10/28/24 03:45 Entero/Rhino (PCR) Not Detected (NotDetected) 10/28/24 03:45 Code Status & VTE Plan VTE Prophylaxis Plan VTE Prophylaxis will be ordered: Yes (1) DKA (diabetic ketoacidosis) Diabetes mellitus complication detail: without coma Diabetes mellitus type: other specified (including REESE) Qualified Code(s): E13.10 - Other specified diabetes mellitus with ketoacidosis without coma
[2024-10-28] MEDS: SODIUM CHLORIDE 0.9% 1,000 ML IV SCH (06:34)
[2024-10-28] MEDS: INSULIN REGULAR 250 UNITS in SODIUM CHLORIDE 0.9% 247.5 ML IV SCH (06:46)
[2024-10-28] MEDS: NovoLIN-R BOLUS FROM BAG IV ONE (06:47)
[2024-10-28] MEDS: DKA GOAL RANGE 150-250 mg/dl ONE (06:48)
[2024-10-28] MEDS: D5W AND 1/2NSS + 20MEQ KCL 20 MEQ/1,000 ML BAG IV SCH (06:48)
[2024-10-28] MEDS ORDERED: INSULIN REGULAR 250 UNITS in SODIUM CHLORIDE 0.9% 247.5 ML IV SCH (07:11)
[2024-10-28] MEDS ORDERED: ACETAMINOPHEN 1,000 MG/100 ML VIAL IV PRN (07:11)
[2024-10-28 07:13] LABS: BUN Creatinine Ratio 21.7 (10-20); Blood Urea Nitrogen 23 mg/dl (6-23); Calcium 9.4 mg/dl (8.6-10.3); Carbon Dioxide 20 mmol/L (21-32); Chloride 104 mmol/L (98-107); Creatinine Clr Calc Pharmacy 90.4 ml/min; Glucose 240 mg/dl (70-99(Fasting)); Phosphorus 4.2 mg/dl (2.5-4.9)
--- NOTE | 2024-10-28 07:13 | CT Scan Report ---
EXAM: CT abd pelvis wo con CLINICAL HISTORY: Abdominal pain. TECHNIQUE: Non-contrast CT of the abdomen and pelvis was performed, with the following protocol: axial images, and reconstructed coronal and sagittal images. One of the following dose reduction techniques was utilized for this exam: Automated exposure control, adjustment of the mA and/or kV according to patient size, and use of iterative reconstruction. total DLP: 1222.26 mGy.cm. CTDI: 25.16 mGy. COMPARISON: Comparison is made with prior CT dated 10/19/2024. FINDINGS: Abdomen: Liver: Normal in size, shape, and density. No focal lesions, cysts, or masses were identified. Gallbladder and Biliary System: The gallbladder is normal in size and shape. No wall thickening, pericholecystic fluid, or gallstones were identified. Pancreas: Pancreatic head, body, and tail are visualized and appear normal in size and density. No pancreatic masses or calcifications were noted. Spleen: Normal in size, shape, and density. No splenic lesions or masses were identified. Kidneys and Adrenal Glands: Both kidneys are normal in size, shape, and position. Cortical thickness is within normal limits. No renal calculi or hydronephrosis. Adrenal glands are unremarkable. Abdominal Aorta and Vessels: The abdominal aorta and major branches are patent without evidence of an aneurysm or significant atherosclerosis. Pelvis: Urinary Bladder: Normal in contour and wall thickness. No intraluminal lesions. Prostate: Normal in size and contour. No masses or abnormal thickening. Seminal Vesicles: Normal appearance without abnormal enlargement or mass. Peritoneal and Retroperitoneal Structures: No free fluid or abnormal fluid collections were identified within the abdomen or pelvis. No lymphadenopathy was noted. Bowel: Irregular circumferential wall thickening in gastric pylorus and adjacent fat stranding is likely inflammatory. Uncomplicated colon diverticulosis. Increased pericolic vascularity, no fat stranding seen. The rest of the visualized bowel loops are normal in caliber and appearance. No evidence of bowel obstruction. Bones and Soft Tissues: Small fat-containing umbilical hernia. Spondylotic changes in thoracolumbar spine. Pelvic bones and soft tissues are unremarkable. No fractures or abnormal masses were identified. IMPRESSION: 1. Stable irregular circumferential wall thickening in gastric pylorus and adjacent fat stranding likely inflammatory. 2. Stable uncomplicated colon diverticulosis. 3. Clinical correlation is recommended. Electronically signed by Larissa Taylor 10-28-2024 07:13 AM
--- NOTE | 2024-10-28 07:15 | XRay Report ---
EXAM: XR chest 1V portable CLINICAL HISTORY: Shortness of breath. TECHNIQUE: An X-ray image of the chest is obtained in AP projection. COMPARISON: 06/12/2024 FINDINGS: Pulmonary Parenchyma: Bilateral prominent broncho vascular markings. No evidence of consolidation, collapse, or focal opacities. No pulmonary nodules are identified. No evidence of pleural effusion or pleural thickening. Heart and Mediastinum: Heart size and shape are normal. No mediastinal widening or masses. No hilar or mediastinal lymphadenopathy. Bony Thorax: Bony thorax appears intact without fractures or deformities. Soft Tissues: Soft tissues overlying the chest wall are unremarkable. IMPRESSION: 1. Bilateral prominent broncho vascular markings. 2. No acute cardiopulmonary abnormalities are identified. 3. Comparing the previous x-ray dated 06/12/2024 the findings remain stable Electronically signed by Larissa Taylor 10-28-2024 07:15 AM
[2024-10-28] MEDS: INSULIN ASPART PER UNIT CHARGE SC SCH ×2 (07:29→13:53)
[2024-10-28] MEDS ORDERED: DEXTROSE 50% 50 ML SYRINGE IV PRN (07:30)
[2024-10-28] MEDS ORDERED: GLUCOSE 40% GEL 15 GM TUBE PO PRN (07:30)
[2024-10-28] MEDS ORDERED: GLUCOSE 10 TAB/TUBE PO PRN (07:30)
[2024-10-28] MEDS ORDERED: GLUCAGON FOR INJ 1 MG VIAL SQ PRN (07:30)
[2024-10-28] MEDS ORDERED: CARBOHYDRATES FOR HYPOGLYCEMIA PO PRN (07:30)
[2024-10-28 08:19] LABS: Estimated Average Glucose 269 mg/dl
[2024-10-28 08:49] LABS: Magnesium 2.1 mg/dl (1.7-2.4); Potassium 4.2 mmol/L (3.5-5.1)
[2024-10-28] MEDS: PANTOprazole 40 MG/10 ML SYR IV SCH (10:38)
[2024-10-28] MEDS: LANTUS PER UNIT CHARGE SQ SCH (10:38)
[2024-10-28] MEDS: METOPROLOL SUCC 25MG EXT REL TAB PO SCH (10:39)
[2024-10-28] MEDS: LINACLOTIDE 145 MCG CAPSULE PO SCH (10:39)
[2024-10-28] MEDS: ATORVASTATIN 40 MG TAB PO SCH (10:39)
[2024-10-28] MEDS: GABAPENTIN 300 MG CAP PO SCH (10:39)
[2024-10-28] MEDS: VALSARTAN/SACUBITRIL 26/24MG TAB PO SCH (10:39)
[2024-10-28] MEDS: EZETIMIBE 10 MG TAB PO SCH (10:39)
[2024-10-28] MEDS: DULoxetine HCL 30 MG CAP PO SCH (10:39)
[2024-10-28] MEDS: FENOFIBRATE NANOCRYSTALLIZED 145 MG TABLET PO SCH (10:39)
--- NOTE | 2024-10-28 11:02 | Pharmacy Report ---
Pharmacy Glycemic Short Note 2 - Date of Service October 28, 2024 - Glycemic Short BSG Results (Last 24 hours): 10/28/24 10/28/24 10/28/24 03:26 03:32 05:49 Glucose 339 H* POC Glucose 326 H* 247 H 10/28/24 10/28/24 10/28/24 06:30 07:53 09:08 Glucose 240 H POC Glucose 166 H 129 H 10/28/24 09:36 Glucose POC Glucose 130 H OUTPATIENT ANTIDIABETIC REGIMEN: * Lantus 20 units daily, Jardiance 10 mg daily ASSESSMENT: * 44 year old admitted with N/V, abdominal pain - started on insulin infusion per DKA protocol this AM. Labs improving later this morning. Transitioned off insulin drip and home Lantus ordered. Verified with RN that patient did not take any basal insulin this morning. PLAN FOR INPATIENT GLYCEMIC CONTROL: * Hold outpatient oral diabetes medications * Basal insulin * Lantus 20 units daily * Bolus insulin * NovoLog per scale ACHS or Q6hrs while NPO * Goal Range: Low 110 mg/dL - High 140 mg/dL * Correction Factor: 25 mg/dL/unit * Nutritional / Prandial insulin per carb ratio of 1 unit per 9 grams CHO consumed
[2024-10-28 11:15] LABS: BUN Creatinine Ratio 21.5 (10-20); Calcium 9.7 mg/dl (8.6-10.3); Magnesium 2.1 mg/dl (1.7-2.4); Phosphorus 3.3 mg/dl (2.5-4.9); Potassium 4.2 mmol/L (3.5-5.1)
--- NOTE | 2024-10-28 13:32 | Communication Note ---
Date of Service: October 28, 2024 Patient seen and examined at bedside. He is comfortable; not in distress He reports that he is starting to get hungry. Anion gap has closed. On physical examination; Constitutional: Alert oriented x 3; not in distress. Respiratory: Bilateral vesicular breath sound Cardiovascular: RRR, no murmur, no edema Vessels: no JVD or carotid bruit Chest: normal inspection of chest Abdomen: normal bowel sounds, soft, nontender, no hepatosplenomegaly Musculoskeletal: no cyanosis or clubbing, extremities motor strength 5/5 Skin: no rashes, warm and dry normal turgor Neurologic: PERRL, EOMI, accommodation nl, no face palsy, no dysarthria CN's II- XI intact bilaterally and moves all extremities Psychiatric: A+Ox3, euthymic affect Assessment/plan DKA Patient presented with nausea/vomiting for 1 day Found to have mild DKA; started on insulin drip with improvement in the anion gap and bicarb Switched over to subcu insulin; diet started History of heart failure with reduced ejection fraction EF 20 to 25% echo done 04/2022 EF 35-39 percent on echo done 10/2022 EF 50 to 55% on echo done on 05/2024 Currently not on diuretics Continue Entresto and metoprolol succinate Monitor for volume overload Hypertension On metoprolol succinate Hyperlipidemia Statin, Zetia and fenofibrate GERD Hold p.o. Protonix IV Protonix for now Gastroparesis Holding home p.o. promethazine and Reglan for now IV Reglan as needed for now Follow-up with GI History of PE On Xarelto History of atrial flutter Metoprolol succinate and Xarelto DVT prophylaxis On Xarelto Disposition Telemetry Full code. Please note the above document was generated using voice recognition software. It may contain grammatical, syntax or spelling errors. Any formal questions or concerns about the content, text or information contained within the body of this dictation should be directly addressed to the provider for clarification
[2024-10-28] MEDS: PENDING 1/2NSS+20mEq KCL IVF SCH (14:00)
[2024-10-28] MEDS: MAGNESIUM HYDROXIDE SUSP 30 ML UDC PO SCH (15:34)
[2024-10-28 19:55] VITALS: RESP 18
[2024-10-28] MEDS: traZODone HCL 50 MG TAB PO SCH (21:40)
[2024-10-28] MEDS: PANTOprazole 40 MG TAB PO SCH (21:40)
[2024-10-28] MEDS: RIVAROXABAN 20 MG TAB PO SCH (21:42)
[2024-10-29] MEDS: INSULIN ASPART PER UNIT CHARGE SC SCH (00:15)
--- NOTE | 2024-10-29 09:31 | Discharge Summary ---
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 Patient says since yesterday 3 PM having lot of nausea and vomiting and abdominal pain. No blood in the vomitus. Yesterday had an episode of loose stools. Denies any chest pain. Has some shortness of breath. Denies cough. No fevers. No headache or dizziness. No blurred vision. No earache or runny nose or sore throat. Hemodynamics are okay. Patient was in the ER at [facility] on 10/02/2024 and found to have pneumoperitoneum and as he had EGD and status post POEM pyloromyotomy for gastroparesis at [facility] on 10/01/2024 patient was transferred to [place] .Was started on antibiotics. Patient states he was observed on antibiotics at [facility] and seems did okay and was discharged. Patient had admissions for DKA in the past. Urine drug screen positive for marijuana today. Past medical history. As mentioned above Past surgical history. Open heart surgery for 2 holes in ventricular septum at age of 3. Colonoscopy. EGD. EGD with biopsy. EGD with endoscopic ultrasound. Lower esophageal myotomy(POEM) Social history quit smoking 2017. Smoked 1 pack a day for 4 years. Alcohol around the holidays. No drug use. Family history. No family history on file. Admission Exam Per Admitting Provider General- Not in distress Head- atraumatic Eyes- PERRL. ENT- oropharynx clear Neck- supple, no JVD. Lungs- clear to auscultation no wheezing or crackles. Heart- regular rate and rhythm; no murmur, no gallop. Abdomen- normal bowel sounds, soft, nontender, no distension Extremities- no pretibial edema, no erythema Neuro- alert, oriented PERRL, no facial palsy; no dysarthria; moves extremities Principal Diagnosis Diabetic ketoacidosis Discharge Exam General- Not in distress Head- atraumatic Eyes- PERRL. ENT- oropharynx clear Neck- supple, no JVD. Lungs- clear to auscultation no wheezing or crackles. Heart- regular rate and rhythm; no murmur, no gallop. Abdomen- normal bowel sounds, soft, nontender, no distension Extremities- no pretibial edema, no erythema Neuro- alert, oriented PERRL, no facial palsy; no dysarthria; moves extremities Discharge Data Allergies Allergy/AdvReac Type Severity Reaction Status Date / Time semaglutide [From Ozempic] Allergy Unknown Hallucinati Verified 08/08/24 08:20 ng Sulfa (Sulfonamide Allergy Unknown ITCHY/HOT Verified 08/08/24 08:20 Antibiotics) metformin AdvReac Unknown Diarrhea Verified 08/08/24 08:20 morphine AdvReac Unknown Nausea Verified 08/08/24 08:20 Consultations 10/28/24 04:45 ED Decision to Admit Stat Ordered Studies 10/28/24 05:47 CT Abd and Pelvis [CT abd pelvis wo con] Urgent Hospital Course (1) DKA (diabetic ketoacidosis): 44-year-old male with past medical history significant for type 2 diabetes, high triglycerides, history of heart failure with reduced ejection fraction, congenital heart disease status post open heart surgery for 2 holes in ventricular septum at age 3, history of acute pulmonary embolism, history of atrial flutter, hypertension, gastroparesis, GERD, history of alcohol use, comes because of nausea, vomiting and abdominal pain and found to be in DKA. Patient was started on IV fluids, IV insulin; with improvement in anion gap and bicarb. He was started on diet which was able to tolerate without any issues. Patient reported that he has enough supplies of insulin at home. He was discharged home with instructions to follow-up with PCP. No medication changes were done Please note the above document was generated using voice recognition software. It may contain grammatical, syntax or spelling errors. Any formal questions or concerns about the content, text or information contained within the body of this dictation should be directly addressed to the provider for clarification Total Time Total Time Spent Total Time Spent (In Minutes): 45 Total Time Includes: Examination of the Patient, Discharge Planning, Medication Reconciliation, Communication With Other Providers and Other Discharge Plan Discharge Items Patient Disposition: Home - Self-Care Reason For Visit: DKA Discharge Diagnosis: Diabetic ketoacidosis Activity: Resume your previous activity Non-emergency contact: Primary Care Provider Call non-emergency contact if: you have any medication questions and your symptoms worsen Follow-up/Referrals: Dany Caruso MD [Primary Care Provider] - (Date & Time 11/04/2024 9:00 AM Provider: Maegan Young MD Department: Family Medicine [facility] ) Diet: Carb Consistent or DM2 Addtl Attending Provider Instructions: You were admitted to the hospital with diabetic ketoacidosis. You are treated with IV fluids and insulin during the hospitalization. Please continue to take insulin after your discharge. An appointment with your primary care doctor has been set up for you Pending Studies at Discharge: No Stand-Alone Forms: My [facility] [email or web address], Smoking Cessation Medications and DC Order Prescriptions: Continued atorvastatin 40 mg tablet 40 mg PO DAILY trazodone 50 mg tablet 50 mg PO HS metoprolol succinate 50 mg tablet extended release 24 hr 75 mg PO DAILY promethazine 6.25 mg/5 mL syrup 6.25 mg PO AC pantoprazole 40 mg tablet,delayed release (DR/EC) 40 mg PO BID gabapentin 300 mg capsule 300 mg PO TID metoclopramide HCl 10 mg tablet 10 mg PO TID ezetimibe 10 mg tablet 10 mg PO DAILY duloxetine 30 mg capsule,delayed release(DR/EC) 30 mg PO DAILY fenofibrate nanocrystallized 145 mg tablet 145 mg PO DAILY insulin glargine [Lantus Solostar U-100 Insulin] 100 unit/mL (3 mL) insulin pen 20 unit SUBCUT DAILY Xarelto 20 mg tablet 20 mg PO HS Linzess 290 mcg capsule 290 mcg PO DAILY Jardiance 10 mg tablet 10 mg PO DAILY sacubitril-valsartan [Entresto] 24-26 mg tablet 0.5 tab PO BID Discharge Orders: Discharge Order (Routine); Ordered 10/29/24 Ordered By: Les Gomes Admission Data Admit Date/Time: 10/28/24 05:30 Attending Provider: Les Gomes Admit Provider: Tadeo Norton Primary Care Provider: Dany Caruso Other Providers: Palepu,Tadeo P. Other Interventions: Discharge Summary Assessment (RN) Last Done: 10/29/24 12:08
[2024-10-29] MEDS: ONDANSETRON INJ 2 MG/ML 2 ML VIAL IV PRN (09:34)
[2024-10-29] MEDS: METOCLOPRAMIDE HCL INJ 5 MG/ML 2 ML VIAL IV PRN (10:03)
[2024-10-29 10:28] LABS: BUN Creatinine Ratio 19.3 (10-20); Calcium 9.1 mg/dl (8.6-10.3); Creatinine Clr Calc Pharmacy 117.4 ml/min; Potassium 4.1 mmol/L (3.5-5.1)
[2024-10-29 11:15] VITALS: BP 136/83; PULSE 83; TEMP 97.7; O2SAT 98
[2024-10-30 12:22] LABS: Marijuana Quant, GCMS Urine 940 ng/mL (<5)
== END 2024-10-29 12:31 | disposition home or self-care (01) | DRG 638 ==
LOC: ED 03:15 → SUATTDRO 05:30 → EDINP 05:30 → 2S 07:15

== ENCOUNTER 2025-04-09 20:12 | Inpatient (IN) ==
[2025-04-09] MEDS: SODIUM CHLORIDE 0.9% 2,000 ML IV ONE (21:04)
[2025-04-09 21:09] LABS: Base Excess VBG -5.3 mEq/L; HCO3 VBG 19 mmol/L; Oxygen Saturation VBG 91.1 %; PCO2 VBG 35 mmHg (38-50); PO2 VBG 60 mmHg; pH VBG 7.35 (7.36-7.41)
[2025-04-09 21:13] LABS: Hematocrit (blood only) 55.3 % (42.0-52.0); Hemoglobin 19.5 g/dl (14.0-18.0); Mean Corpuscular Hgb Conc 35.3 g/dL (32.0-36.0); Mean Corpuscular Volume 82.3 fL (80.0-100.0); Mean Platelet Volume 12.1 fL (9.4-12.4); Platelet Count 208 K/uL (130-400); RDW Coefficient of Variation 13.2 % (11.5-14.5); RDW Standard Deviation 37.2 fL (36.4-46.3); Red Blood Count 6.72 M/uL (4.70-6.10); White Blood Count 8.51 K/ul (4.8-10.8)
[2025-04-09 21:14] LABS: Albumin Globulin Ratio 1.7 (0.9-2); Bilirubin,Total 1.4 mg/dl (0.2-1.0); Calcium 10.6 mg/dl (8.6-10.3); Creatinine Clr Calc Pharmacy 67.6 ml/min; Globulin 2.9 gm/dl (2.5-4.0); Magnesium 1.4 mg/dl (1.7-2.4); Potassium 3.9 mmol/L (3.5-5.1); Total Protein 7.9 gm/dl (6.0-8.3); Troponin I High Sensitivity 5.9 pg/ml (0-20)
[2025-04-09] MEDS: SODIUM CHLORIDE 0.9% 1,000 ML IV ONE (21:19)
[2025-04-09 21:24] LABS: Basophils # (auto) 0.07 K/uL (0.00-0.20); Basophils % (auto) 0.8 %; Eosinophils # (auto) 0.03 K/uL (0.00-0.50); Eosinophils % (auto) 0.4 %; Immature Granulocytes # (auto) 0.04 K/uL (0.01-0.20); Immature Granulocytes % (auto) 0.5 %; Lymphocytes # (auto) 1.27 K/uL (1.20-3.40); Lymphocytes % (auto) 14.9 %; Monocytes # (auto) 0.56 K/uL (0.11-0.59); Monocytes % (auto) 6.6 %; Neutrophils # (auto) 6.54 K/uL (1.40-6.50); Neutrophils % (auto) 76.8 %
[2025-04-09 21:25] LABS: Thyroid Stimulating Hormone 1.307 uIu/ml (0.300-4.500)
[2025-04-09] MEDS: MAGNESIUM SULFATE / D5W 1 GM/100 ML BAG IV STA (21:57)
[2025-04-09] MEDS: ACETAMINOPHEN 1,000 MG/100 ML VIAL IV STA (21:57)
[2025-04-09 22:54] LABS: Partial Thromboplastin Ratio 0.9; Partial Thromboplastin Time 25 Seconds (21-31); Prothrombin Time 10.9 Seconds (9.0-12.0)
[2025-04-09] MEDS ORDERED: DEXTROSE 50% 50 ML SYRINGE IV PRN (22:56)
[2025-04-09] MEDS ORDERED: GLUCAGON FOR INJ 1 MG VIAL SQ PRN (22:56)
[2025-04-09] MEDS ORDERED: GLUCOSE 40% GEL 15 GM TUBE PO PRN (22:56)
[2025-04-09] MEDS ORDERED: CARBOHYDRATES FOR HYPOGLYCEMIA PO PRN (22:56)
[2025-04-09] MEDS ORDERED: GLUCOSE 10 TAB/TUBE PO PRN (22:56)
--- NOTE | 2025-04-09 23:10 | XRay Report ---
Exam(s): XR CXR 1 VIEW EXAM: XR Chest, 1 View CLINICAL HISTORY: Reason for exam: Sepsis. TECHNIQUE: Frontal view of the chest. COMPARISON: 10/28/2024 FINDINGS: Lungs: No consolidation. Pleural space: No significant pleural effusion. No pneumothorax. Heart: No cardiomegaly or pulmonary vascular congestion. Bones/joints: No acute fracture. No dislocation. IMPRESSION: No evidence of acute cardiopulmonary disease. Electronically signed by: Opal Wasserman M.D. 04/09/25 23:09 PM
--- NOTE | 2025-04-09 23:17 | Emergency Department Note ---
Impression & Plan DKA (diabetic ketoacidosis), Acute dehydration, Hypomagnesemia ED Provider Note HISTORY OF PRESENT ILLNESS: Patient is a 44-year-old male presenting with multiple complaints. He reports he "has pain everywhere." He states that "my digestive system is shutting down and I cannot eat or drink anything." He reports has not had any solid or liquid intake in at least 48 hours. He states that he has been "falling apart for the last 6 months." He denies any recent fevers. He states that in the last 1.5 days he "has not been able to function or get around at home." When asked about whether he is taking his insulin for his diabetes, the patient reports "why would I do that when I am not eating or drinking." He denies any dysuria or hematuria. Denies any recent sick contact exposures. ROS: as above PHYSICAL EXAM: Constitutional: Patient appears in no acute distress. HENT: Head: Normocephalic and atraumatic. Eyes: EOMI, PERRL Mouth/Throat: Mucous membranes dry. Neck: Trachea midline. Neck supple. Cardiovascular: Tachycardic with regular rhythm. No murmurs, rubs or gallops. Intact distal pulses. Pulmonary/Chest: No respiratory distress. Breath sounds clear and equal bilaterally. No wheezes or rales. Abdominal: Abdomen soft, no tenderness, rebound or guarding. Musculoskeletal: No edema, tenderness or deformity noted. Skin: Warm and dry. No rash, erythema, pallor or cyanosis Psychiatric: Appropriate mood and affect for situation. Neurological: Alert and keenly responsive. CN II-XII grossly intact, moving all extremities equally and fully. MDM: - Vitals signs showed tachycardia - History obtained via patient. History as above. - Chronic conditions affecting care: GERD; HTN; DM-2; HLD; PE - Differential diagnoses include, but are not limited to: DKA; electrolyte abnormality; BONILLA; pneumonia; viral syndrome - Order placed for continuous cardiac monitoring. At this time, monitor showed rate of 127 bpm with normal sinus rhythm, per my interpretation. - External medical records reviewed. Discharge summary dated at 10/29/2024 was reviewed. Patient was admitted that time for diabetic ketoacidosis. - EKG image interpreted by myself showed normal sinus rhythm. Rate tachycardic at 122 bpm. QT 412. No acute ischemic changes. Noted to have a right bundle branch block. - Laboratory workup interpreted by myself showed normal WBC; elevated hemoglobin (19.5 - likely concentrated from dehydration); normal PT/INR; normal lactate; hyponatremia (Na 135); hyperglycemia with elevated anion gap (glucose 345; anion gap 20); hypomagnesemia (Mg 1.4); normal troponin; normal procalcitonin; normal TSH - Blood cultures obtained given his profound tachycardia - CXR image reviewed by myself negative for pneumonia, per my interpretation - VBG shows pH nearly normal at 7.35 - Patient given 1L NS in ER for dehydration tachycardia and heart rate improved to the low 100s. - Given 1g IV magnesium for electrolyte replacement. He was given 1 g IV Tylenol for diffuse pain complaints. He started on insulin drip given his DKA. - Discussion was had with medical case manager about patient's case and need for admission - Hospitalist, Dr. Roldan, consulted for admission - [facility]. I have personally spent 61 minutes of critical care time in the direct management of this patient. This includes bedside care, interpretation of diagnostic studies, and testing, discussion with consultants, patient, and family members, and other required patient management activities. This 61 minutes is in excess of all separately billable procedures. ASSESSMENT AND PLAN: Diagnosis: DKA; acute dehydration; hypomagnesemia Plan: Admit Past Med/Surg History Problem List (Updated 04/09/25 @ 23:47 by Donna Ramos MD) Hypomagnesemia (Acute) Acute dehydration (Acute) DKA (diabetic ketoacidosis) (Acute) Acute dehydration (Acute) Nausea and vomiting (Acute) Gastroparesis due to DM Atrial fibrillation with rapid ventricular response (Acute) Acute dehydration (Acute) Nausea & vomiting (Acute) Metabolic acidosis (Acute) Atypical chest pain Heart failure with improved ejection fraction (HFimpEF) Diaphoresis (Acute) Tachycardia (Acute) Acute dehydration (Acute) Weakness (Acute) BONILLA (acute kidney injury) (Acute) Syncope (Acute) Syncope and collapse Dehydration (Acute) High anion gap metabolic acidosis (Acute) DKA (diabetic ketoacidosis) (Acute) Alcohol withdrawal Esophagitis Malnutrition Nausea & vomiting Constipation Weight loss Lactic acid acidosis Metabolic acidosis Intractable nausea and vomiting (Acute) BONILLA (acute kidney injury) (Acute) Deep vein thrombosis, lower left extremity Non-ischemic cardiomyopathy New onset of congestive heart failure (04/2022) Dyspnea (Acute) Pleural effusion, bilateral (Acute) Right bundle branch block Vitamin D deficiency 8.9 in 06/2019 HLD (hyperlipidemia) TG 2049, TC 301 in 06/2019 T2DM (type 2 diabetes mellitus) (Acute) Alcohol abuse Overweight (BMI 25.0-29.9) HTN (hypertension) GERD (gastroesophageal reflux disease) Medical History Diabetes Non-ischemic cardiomyopathy denies Pleural effusion current problem "hear failure causes directly" - monitored by pcp. Denies change from baseline. Right bundle branch block pt doesn't know, reports: "not right now " when asked about hx of irregular heart beats. GERD (gastroesophageal reflux disease) pt not sure Hyperlipidemia HTN (hypertension) Poor historian History of renal failure yrs and yrs ago, pt doesn't know details surrounding. History of chest pain (05/2024) May 2024 pt reports felt like heart failure, not dx with anything. Admitted April or May 2024 [facility] for dka ?. Pt poor historian. No re occurence of chest pain. History of congestive heart failure dx age 3 following heart sx. "doesn't ever go away" - monitored by pcp. History of DVT (deep vein thrombosis) early 2023. History of pulmonary embolism 04/2022 History of diabetic ketoacidosis April or May 2024 - [place]. Pt poor historian. 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 Aunt Cardiac disorder Other No family history of adverse response to anesthesia Denies family history of Ovarian cancer Prostate cancer Myocardial infarction Breast cancer Colorectal cancer Social History Smoking Status: Never smoker Age Started Using Tobacco: 16; Age Quit Using Tobacco: 26; packs per day: 0.5; Second Hand Exposure: No; Do You Dip or Chew Tobacco: No; Hx Alcohol Use: Yes Alcohol type: beer Hx Substance Use: No Preferred Language: Spanish Communication Ability: Effective Communication Ability Comment: poor historian Visual Impairment: No Limitations Hearing Ability: Normal Circus Hand Required: No Beliefs That Will Affect Care: None marital status: Single Current Living Situation: Spouse Current Living Situation Comment: stay with girlfriend current occupational status: employed current occupation: [employer] How many Children do You have: 0 Feels Safe at Home: Yes Dental Care, Regularly: Yes Physical Activity Frequency: 3-4 Times per Week Assistive Devices: None Allergies Allergies Allergy/AdvReac Type Severity Reaction Status Date / Time semaglutide [From Ozempic] Allergy Unknown Hallucinati Verified 04/09/25 23:47 ng Sulfa (Sulfonamide Allergy Unknown ITCHY/HOT Verified 04/09/25 23:47 Antibiotics) metformin AdvReac Unknown Diarrhea Verified 04/09/25 23:47 morphine AdvReac Unknown Nausea Verified 04/09/25 23:47 Home Meds Home Medications Medication Instructions Recorded Confirmed atorvastatin 40 mg tablet 40 mg PO QAM 10/28/24 04/09/25 duloxetine 30 mg capsule,delayed 30 mg PO QAM 10/28/24 04/09/25 release empagliflozin 10 mg tablet 10 mg PO DAILY 10/28/24 04/09/25 (Jardiance) ezetimibe 10 mg tablet 10 mg PO QAM 10/28/24 04/09/25 fenofibrate nanocrystallized 145 145 mg PO QAM 10/28/24 04/09/25 mg tablet gabapentin 300 mg capsule 300 mg PO TID 10/28/24 04/09/25 insulin glargine 100 unit/mL (3 20 unit subcut QA 10/28/24 04/09/25 mL) subcutaneous pen (Lantus Solostar U-100 Insulin) linaclotide 290 mcg capsule 290 mcg PO DAILYBB 10/28/24 04/09/25 (Linzess) metoclopramide HCl 10 mg tablet 10 mg PO TID 10/28/24 04/09/25 metoprolol succinate 50 mg 75 mg PO QAM 10/28/24 04/09/25 tablet,extended release 24 hr pantoprazole 40 mg tablet,delayed 40 mg PO AMHS 10/28/24 04/09/25 release promethazine 6.25 mg/5 mL oral 6.25 mg PO AC 10/28/24 04/09/25 syrup rivaroxaban 20 mg tablet (Xarelto) 20 mg PO QDD 10/28/24 04/09/25 sacubitril 24 mg-valsartan 26 mg 0.5 tab PO BID 10/28/24 04/09/25 tablet (Entresto) trazodone 50 mg tablet 50 mg PO HS 10/28/24 04/09/25 triamcinolone acetonide 0.1 % 1 applic topical BID PRN Itching 04/09/25 04/09/25 topical cream Results & Data (ED) Vital Signs Vital Signs - 24 hr 04/09/25 20:18 04/09/25 21:35 04/09/25 22:13 Temperature 36.5 C Temperature Source Temporal Artery Scan Pulse Rate 139 H 112 H Pulse Rate [Right Finger] 99 H Respiratory Rate 16 20 Respiratory Effort / Characteristics Non-Labored Spontaneous Respiratory Depth Normal Blood Pressure 174/113 H Blood Pressure [Right Arm] 118/93 Blood Pressure Mean 133 Blood Pressure Mean [Right Arm] 101 Blood Pressure Position Sitting Pulse Oximetry 95 95 Oxygen Delivery Method Room Air Room Air Sepsis Recent Fever Within 48 Hours No Sepsis New/Unexplained Change in Mental Status No Sepsis Action Taken by Nursing No Action Required Laboratory Data 04/09/25 20:38 04/09/25 20:38 Lab Results 04/09/25 04/09/25 04/09/25 Range/Units 20:30 20:38 20:54 WBC 8.51 (4.8-10.8) K/ul RBC 6.72 H (4.70-6.10) M/uL Hgb 19.5 H (14.0-18.0) g/dl Hct 55.3 H (42.0-52.0) % MCV 82.3 (80.0-100.0) fL MCH 29.0 (25.0-34.0) pg MCHC 35.3 (32.0-36.0) g/dL RDW Std Deviation 37.2 (36.4-46.3) fL RDW Coeff of Trevon 13.2 (11.5-14.5) % Plt Count 208 (130-400) K/uL MPV 12.1 (9.4-12.4) fL Immature Gran % (Auto) 0.5 % Neut % (Auto) 76.8 % Lymph % (Auto) 14.9 % Greenlee % (Auto) 6.6 % Eos % (Auto) 0.4 % Baso % (Auto) 0.8 % Neut # (Auto) 6.54 H (1.40-6.50) K/uL Lymph # (Auto) 1.27 (1.20-3.40) K/uL Greenlee # (Auto) 0.56 (0.11-0.59) K/uL Eos # (Auto) 0.03 (0.00-0.50) K/uL Baso # (Auto) 0.07 (0.00-0.20) K/uL Immature Gran # (Auto) 0.04 (0.01-0.20) K/uL PT (9.0-12.0) Seconds INR (0.9-1.1) APTT (21-31) Seconds PTT Ratio VBG pH 7.35 L (7.36-7.41) VBG pCO2 35 L (38-50) mmHg VBG pO2 60 mmHg VBG HCO3 19 mmol/L VBG O2 Saturation 91.1 % VBG Base Excess -5.3 mEq/L Sodium 135 L (136-145) mmol/L Potassium 3.9 (3.5-5.1) mmol/L Chloride 94 L (98-107) mmol/L Carbon Dioxide 21 (21-32) mmol/L Anion Gap 20 H (3-11) BUN 19 (6-23) mg/dl Creatinine 1.36 (0.6-1.4) mg/dl Est Cr Clr Drug Dosing 67.6 ml/min eGFR 65.40 BUN/Creatinine Ratio 14.0 (10-20) Glucose 345 H* (70-99(Fasting)) mg/dl POC Glucose 357 H* (70-99) mg/dl Lactate 1.8 (0.4-2.0) mmol/L Calcium 10.6 H (8.6-10.3) mg/dl Magnesium 1.4 L (1.7-2.4) mg/dl Total Bilirubin 1.4 H (0.2-1.0) mg/dl AST 12 L (13-39) U/L ALT 11 (7-52) U/L Alkaline Phosphatase 131 H (34-104) U/L Troponin I High Sens 5.9 (0-20) pg/ml Total Protein 7.9 (6.0-8.3) gm/dl Albumin 5.0 (3.4-5.0) gm/dl Globulin 2.9 (2.5-4.0) gm/dl Albumin/Globulin Ratio 1.7 (0.9-2) Procalcitonin 0.06 (0-0.5) ng/ml TSH 1.307 (0.300-4.500) uIu/ml 04/09/25 Range/Units 21:32 WBC (4.8-10.8) K/ul RBC (4.70-6.10) M/uL Hgb (14.0-18.0) g/dl Hct (42.0-52.0) % MCV (80.0-100.0) fL MCH (25.0-34.0) pg MCHC (32.0-36.0) g/dL RDW Std Deviation (36.4-46.3) fL RDW Coeff of Trevon (11.5-14.5) % Plt Count (130-400) K/uL MPV (9.4-12.4) fL Immature Gran % (Auto) % Neut % (Auto) % Lymph % (Auto) % Greenlee % (Auto) % Eos % (Auto) % Baso % (Auto) % Neut # (Auto) (1.40-6.50) K/uL Lymph # (Auto) (1.20-3.40) K/uL Greenlee # (Auto) (0.11-0.59) K/uL Eos # (Auto) (0.00-0.50) K/uL Baso # (Auto) (0.00-0.20) K/uL Immature Gran # (Auto) (0.01-0.20) K/uL PT 10.9 (9.0-12.0) Seconds INR 1.0 (0.9-1.1) APTT 25 (21-31) Seconds PTT Ratio 0.9 VBG pH (7.36-7.41) VBG pCO2 (38-50) mmHg VBG pO2 mmHg VBG HCO3 mmol/L VBG O2 Saturation % VBG Base Excess mEq/L Sodium (136-145) mmol/L Potassium (3.5-5.1) mmol/L Chloride (98-107) mmol/L Carbon Dioxide (21-32) mmol/L Anion Gap (3-11) BUN (6-23) mg/dl Creatinine (0.6-1.4) mg/dl Est Cr Clr Drug Dosing ml/min eGFR BUN/Creatinine Ratio (10-20) Glucose (70-99(Fasting)) mg/dl POC Glucose (70-99) mg/dl Lactate (0.4-2.0) mmol/L Calcium (8.6-10.3) mg/dl Magnesium (1.7-2.4) mg/dl Total Bilirubin (0.2-1.0) mg/dl AST (13-39) U/L ALT (7-52) U/L Alkaline Phosphatase (34-104) U/L Troponin I High Sens (0-20) pg/ml Total Protein (6.0-8.3) gm/dl Albumin (3.4-5.0) gm/dl Globulin (2.5-4.0) gm/dl Albumin/Globulin Ratio (0.9-2) Procalcitonin (0-0.5) ng/ml TSH (0.300-4.500) uIu/ml Administered Medications Magnesium Sulfate/Dextrose (Magnesium Sulfate / D5w) 1 gm in 100 mls @ 50 mls/hr IV ONE ONE Stop: 04/10/25 01:23 Last Admin: 04/09/25 23:40 Dose: 50 mls/hr Documented By: TY Discontinued Medications Sodium Chloride (Nss) 2,000 mls @ 999 mls/hr IV .Q2H1M ONE Stop: 04/09/25 22:39 Last Admin: 04/09/25 21:04 Dose: Not Given Documented By: TY Sodium Chloride (Nss) 1,000 mls @ 999 mls/hr IV .Q1H1M ONE Stop: 04/09/25 21:40 Last Infusion: 04/09/25 22:16 Dose: Infused Documented By: Admin: 04/09/25 21:19 Dose: 999 mls/hr Documented By: CTK Magnesium Sulfate/Dextrose (Magnesium Sulfate / D5w) 1 gm in 100 mls @ 100 mls/hr IV NOW STA Stop: 04/09/25 22:45 Last Infusion: 04/09/25 23:04 Dose: Infused Documented By: Admin: 04/09/25 21:57 Dose: 100 mls/hr Documented By: CTK Acetaminophen (Ofirmev) 1,000 mg in 100 mls @ 400 mls/hr IV NOW STA Stop: 04/09/25 22:00 Last Infusion: 04/09/25 22:16 Dose: Infused Documented By: Admin: 04/09/25 21:57 Dose: 400 mls/hr Documented By: CTK Imaging Data Radiologist's Impression: Chest X-Ray 04/09/25 20:38 Exam(s): XR CXR 1 VIEW EXAM: XR Chest, 1 View CLINICAL HISTORY: Reason for exam: Sepsis. TECHNIQUE: Frontal view of the chest. COMPARISON: 10/28/2024 FINDINGS: Lungs: No consolidation. Pleural space: No significant pleural effusion. No pneumothorax. Heart: No cardiomegaly or pulmonary vascular congestion. Bones/joints: No acute fracture. No dislocation. IMPRESSION: No evidence of acute cardiopulmonary disease. Electronically signed by: Opal Wasserman M.D. 04/09/25 23:09 PM Discharge Plan Visit Data Chief Complaint: GI Assessment Stated Complaint: DIGESTIVE SYSTEM PROBLEMS, GENERAL PAIN ED Provider: Donna Ramos Discharge Problem: DKA (diabetic ketoacidosis), Acute dehydration, Hypomagnesemia Condition: Serious Forms Stand Alone Forms: My [facility] Prescriptions Prescriptions: No Action atorvastatin 40 mg tablet 40 mg PO QAM trazodone 50 mg tablet 50 mg PO HS Rx Instructions: ran out currently metoprolol succinate 50 mg tablet extended release 24 hr 75 mg PO QAM promethazine 6.25 mg/5 mL syrup 6.25 mg PO AC pantoprazole 40 mg tablet,delayed release (DR/EC) 40 mg PO AMHS gabapentin 300 mg capsule 300 mg PO TID metoclopramide HCl 10 mg tablet 10 mg PO TID Rx Instructions: ORDERED TID BUT ONLY TAKES DAILY ezetimibe 10 mg tablet 10 mg PO QAM duloxetine 30 mg capsule,delayed release(DR/EC) 30 mg PO QAM fenofibrate nanocrystallized 145 mg tablet 145 mg PO QAM insulin glargine [Lantus Solostar U-100 Insulin] 100 unit/mL (3 mL) insulin pen 20 unit SUBCUT QAM Xarelto 20 mg tablet 20 mg PO QDD Linzess 290 mcg capsule 290 mcg PO DAILYBB Jardiance 10 mg tablet 10 mg PO DAILY Entresto 24-26 mg tablet 0.5 tab PO BID triamcinolone acetonide 0.1 % cream 1 applic TOPICAL BID PRN (Reason: Itching) magnesium citrate Solution 120 ml PO DAILY PRN (Reason: SEVERE CONSTIPATION) Referrals Referrals: Dany Caruso MD [Primary Care Provider] -
[2025-04-09] MEDS ORDERED: NovoLIN-R INSULIN PER UNIT CHARGE IV STA (23:33)
[2025-04-09] MEDS: MAGNESIUM SULFATE / D5W 1 GM/100 ML BAG IV ONE (23:40)
[2025-04-09] MEDS: KETOROLAC TROMETHAMINE 15 MG/ML VIAL IV ONE (23:51)
[2025-04-09] MEDS: THIAMINE HCL 100 MG in SYRINGE 9 ML IV STA (23:52)
[2025-04-09] MEDS: STAT IV Infusion **Titration per Protocol STA (23:53)
[2025-04-09] MEDS: LACTATED RINGER'S 1,000 ML IV ONE (23:53)
[2025-04-09] MEDS: NovoLIN-R INSULIN PER UNIT CHARGE IV STA (23:58)
[2025-04-10] MEDS: DKA GOAL RANGE 150-250 mg/dl ONE (00:05)
[2025-04-10] MEDS: INSULIN REGULAR 250 UNITS in SODIUM CHLORIDE 0.9% 247.5 ML IV SCH (00:05)
[2025-04-10] MEDS: OPTIRAY 320 125ml IV ONE (00:14)
[2025-04-10 00:28] LABS: Phosphorus 4.9 mg/dl (2.5-4.9)
[2025-04-10] MEDS: oxyCODONE HCL IR 5 MG TAB (IMMEDIATE RELEASE) PO PRN (01:00)
--- NOTE | 2025-04-10 01:04 | History & Physical Report ---
Date of Service April 10, 2025 Assessment & Plan (1) Generalized pain: Plan: Assessment and plan below following discussion of case with ED provider and reviewing patient history/pertinent normal/abnormal diagnostic test results. Generalized pain Acute on chronic pain Likely from underlying neuropathy. History DM 2 insulin requiring, suboptimal control as of recent hemoglobin A1c of 11.1 last October 2024, history of medication noncompliance Mild DKA secondary to illness Headache, chest pain possibly from uncontrolled BP Abdominal pain possibly from gastroparesis flareup chronic systolic heart failure (EF 45%, TTE 2023, hx nonischemic cardiomyopathy), patient on the dry side history congenital heart surgery hyperlipidemia, on statin Rx paroxysmal atrial flutter/unprovoked PE status post Xarelto alcohol abuse as per records Hypomagnesemia secondary to illness past tobacco abuse Admit to med/tele Facilitate home BP meds Supportive management with antiemetics for possible gastroparesis flareup Judicious narcotic use given gastroparesis history Replace electrolytes [place] S at risk protocol, DT precautions Basal bolus insulin adjusted for clear liquid diet for now, ISS BG goal 110-140, carb count coverage, update hemoglobin A1c May benefit from DM education if hemoglobin A1c worse from October, DVT prophylaxis. Xarelto Full code Text document was generated using [employer] voice recognition software. It may contain grammatical or spelling errors. Kindly contact undersigned for clarification of any documentation item in question. History of Present Illness Chief Complaint: Worsening pain Primary Care Provider: Dany Caruso MD History obtained from patient and records. Medical history significant for chronic systolic heart failure (EF 45%, TTE 2023, hx nonischemic cardiomyopathy), history congenital heart surgery, hypertension, hyperlipidemia, paroxysmal atrial flutter/unprovoked PE status post Xarelto, DM2 insulin requiring, chronic abdominal pain, GERD, gastroparesis as per records, alcohol abuse as per records, past tobacco abuse, medical noncompliance as per records. Last confinement October 2024 for DKA. No PCP follow-up visit since discharge from the hospital. Patient negativistic/hard to reach/get through to as per outpatient community health supply assistant note from 5 months ago. Patient had worsening of chronic pain (headache, neck pain, achy chest pain/central abdominal pain) the last few days. No cough or SOB. Bilious emesis symptoms without diarrhea. Claims to be compliant with home insulin. High blood sugars at home which patient attributes to uncontrolled pain. Patient consulted ER for evaluation. SBP 170s upon arrival at the ER. Medical History as above Surgical History : VSD surgery, ankle surgery, dental surgery, knee surgery Family History : DM Personal/Social history : Past tobacco abuse, alcohol abuse as per records which patient denies, currently unemployed Allergies Allergy/AdvReac Type Severity Reaction Status Date / Time semaglutide [From Ozempic] Allergy Unknown Hallucinati Verified 04/09/25 23:47 ng Sulfa (Sulfonamide Allergy Unknown ITCHY/HOT Verified 04/09/25 23:47 Antibiotics) metformin AdvReac Unknown Diarrhea Verified 04/09/25 23:47 morphine AdvReac Unknown Nausea Verified 04/09/25 23:47 Home Medications Medication Instructions Recorded Confirmed Type atorvastatin 40 mg tablet 40 mg PO QAM 10/28/24 04/09/25 History duloxetine 30 mg capsule,delayed 30 mg PO QAM 10/28/24 04/09/25 History release empagliflozin 10 mg tablet 10 mg PO DAILY 10/28/24 04/09/25 History (Jardiance) ezetimibe 10 mg tablet 10 mg PO QAM 10/28/24 04/09/25 History fenofibrate nanocrystallized 145 145 mg PO QAM 10/28/24 04/09/25 History mg tablet gabapentin 300 mg capsule 300 mg PO TID 10/28/24 04/09/25 History insulin glargine 100 unit/mL (3 20 unit subcut QAM 10/28/24 04/09/25 History mL) subcutaneous pen (Lantus Solostar U-100 Insulin) linaclotide 290 mcg capsule 290 mcg PO DAILYBB 10/28/24 04/09/25 History (Linzess) metoclopramide HCl 10 mg tablet 10 mg PO TID 10/28/24 04/09/25 History metoprolol succinate 50 mg 75 mg PO QAM 10/28/24 04/09/25 History tablet,extended release 24 hr pantoprazole 40 mg tablet,delayed 40 mg PO AMHS 10/28/24 04/09/25 History release promethazine 6.25 mg/5 mL oral 6.25 mg PO AC 10/28/24 04/09/25 History syrup rivaroxaban 20 mg tablet (Xarelto) 20 mg PO QDD 10/28/24 04/09/25 History sacubitril 24 mg-valsartan 26 mg 0.5 tab PO BID 10/28/24 04/09/25 History tablet (Entresto) trazodone 50 mg tablet 50 mg PO HS 10/28/24 04/09/25 History magnesium citrate 120 ml PO DAILY PRN SEVERE 04/09/25 04/09/25 History CONSTIPATION triamcinolone acetonide 0.1 % 1 applic topical BID PRN Itching 04/09/25 04/09/25 History topical cream Past Med/Surg History Problem List (Updated 04/10/25 @ 01:04 by Stu Roldan MD) Generalized pain Hypomagnesemia (Acute) Acute dehydration (Acute) DKA (diabetic ketoacidosis) (Acute) Acute dehydration (Acute) Nausea and vomiting (Acute) Gastroparesis due to DM Atrial fibrillation with rapid ventricular response (Acute) Acute dehydration (Acute) Nausea & vomiting (Acute) Metabolic acidosis (Acute) Atypical chest pain Heart failure with improved ejection fraction (HFimpEF) Diaphoresis (Acute) Tachycardia (Acute) Acute dehydration (Acute) Weakness (Acute) BONILLA (acute kidney injury) (Acute) Syncope (Acute) Syncope and collapse Dehydration (Acute) High anion gap metabolic acidosis (Acute) DKA (diabetic ketoacidosis) (Acute) Alcohol withdrawal Esophagitis Malnutrition Nausea & vomiting Constipation Weight loss Lactic acid acidosis Metabolic acidosis Intractable nausea and vomiting (Acute) BONILLA (acute kidney injury) (Acute) Deep vein thrombosis, lower left extremity Non-ischemic cardiomyopathy New onset of congestive heart failure (04/2022) Dyspnea (Acute) Pleural effusion, bilateral (Acute) Right bundle branch block Vitamin D deficiency 8.9 in 06/2019 HLD (hyperlipidemia) TG 2049, TC 301 in 06/2019 T2DM (type 2 diabetes mellitus) (Acute) Alcohol abuse Overweight (BMI 25.0-29.9) HTN (hypertension) GERD (gastroesophageal reflux disease) Medical History Diabetes Non-ischemic cardiomyopathy denies Pleural effusion current problem "hear failure causes directly" - monitored by pcp. Denies change from baseline. Right bundle branch block pt doesn't know, reports: "not right now " when asked about hx of irregular heart beats. GERD (gastroesophageal reflux disease) pt not sure Hyperlipidemia HTN (hypertension) Poor historian History of renal failure yrs and yrs ago, pt doesn't know details surrounding. History of chest pain (05/2024) May 2024 pt reports felt like heart failure, not dx with anything. Admitted April or May 2024 [facility] for [facility] ?. Pt poor historian. No re occurence of chest pain. History of congestive heart failure dx age 3 following heart sx. "doesn't ever go away" - monitored by pcp. History of DVT (deep vein thrombosis) early 2023. History of pulmonary embolism 04/2022 History of diabetic ketoacidosis April or May 2024 - [place]. Pt poor historian. 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 Aunt Cardiac disorder Other No family history of adverse response to anesthesia Denies family history of Ovarian cancer Prostate cancer Myocardial infarction Breast cancer Colorectal cancer Social History Smoking Status: Former smoker Age Started Using Tobacco: 16; Age Quit Using Tobacco: 26; packs per day: 0.5; Smoking End Date: 20 years ago; Second Hand Exposure: No; Do You Dip or Chew Tobacco: No; Hx Alcohol Use: Yes Alcohol type: beer Hx Substance Use: No Preferred Language: Swazi Communication Ability: Effective Communication Ability Comment: poor historian Visual Impairment: No Limitations Hearing Ability: Normal 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 Required: No Beliefs That Will Affect Care: None marital status: Single Current Living Situation: Spouse Current Living Situation Comment: stay with girlfriend current occupational status: employed current occupation: [employer] How many Children do You have: 0 Other Information That Helps Us Care for You: No Feels Safe at Home: Yes Safety Concerns: Feels Safe At This Time Dental Care, Regularly: Yes Physical Activity Frequency: 3-4 Times per Week Assistive Devices: None Review of Systems Review of Systems: As per HPI, all other systems reviewed and negative Physical Exam Physical Exam: GENERAL: Apathetic, slightly irate, obese, no respiratory distress SKIN: Normal color, warm HEENT: [place] palpebral conjunctivae, no ptosis, dry buccal mucosa NECK : Supple, no tenderness CHEST : CTA, no tenderness HEART : RRR, no obvious murmurs ABDOMEN: Some distention, minimal epigastric tenderness EXTREMITIES : Minimal LE swelling without tenderness, no other conspicuous deformities noted NEUROLOGIC : Coherent, no facial asymmetry, gait and stance not assessed Results & Data Results & Data Vital Signs (Past 12 Hours) Vital Signs Temp Pulse Pulse Resp BP BP Pulse Ox 04/10/25 00:00 98 H 20 128/100 95 04/09/25 22:13 99 H 20 118/93 95 04/09/25 21:35 112 H 04/09/25 20:18 36.5 C 139 H 16 174/113 H 95 O2 Del Method 04/10/25 00:00 Room Air 04/09/25 22:13 Room Air 04/09/25 21:35 04/09/25 20:18 Room Air Laboratory Results Laboratory Results WBC 8.51 K/ul (4.8-10.8) 04/09/25 20:38 RBC 6.72 M/uL (4.70-6.10) H 04/09/25 20:38 Hgb 19.5 g/dl (14.0-18.0) H 04/09/25 20:38 Hct 55.3 % (42.0-52.0) H 04/09/25 20:38 MCV 82.3 fL (80.0-100.0) 04/09/25 20:38 MCH 29.0 pg (25.0-34.0) 04/09/25 20:38 MCHC 35.3 g/dL (32.0-36.0) 04/09/25 20:38 RDW Std Deviation 37.2 fL (36.4-46.3) 04/09/25 20:38 RDW Coeff of Trevon 13.2 % (11.5-14.5) 04/09/25 20:38 Plt Count 208 K/uL (130-400) 04/09/25 20:38 MPV 12.1 fL (9.4-12.4) 04/09/25 20:38 Immature Gran % (Auto) 0.5 % 04/09/25 20:38 Neut % (Auto) 76.8 % 04/09/25 20:38 Lymph % (Auto) 14.9 % 04/09/25 20:38 [place]ides % (Auto) 6.6 % 04/09/25 20:38 Eos % (Auto) 0.4 % 04/09/25 20:38 Baso % (Auto) 0.8 % 04/09/25:38 Neut # (Auto) 6.54 K/uL (1.40-6.50) H 04/09/25 20:38 Lymph # (Auto) 1.27 K/uL (1.20-3.40) 04/09/25 20:38 Rapides # (Auto) 0.56 K/uL (0.11-0.59) 04/09/25 20:38 Eos # (Auto) 0.03 K/uL (0.00-0.50) 04/09/25 20:38 Baso # (Auto) 0.07 K/uL (0.00-0.20) 04/09/25 20:38 Immature Gran # (Auto) 0.04 K/uL (0.01-0.20) 04/09/25 20:38 PT 10.9 Seconds (9.0-12.0) 04/09/25 21:32 INR 1.0 (0.9-1.1) 04/09/25 21:32 APTT 25 Seconds (21-31) 04/09/25 21:32 PTT Ratio 0.9 04/09/25 21:32 VBG pH 7.35 (7.36-7.41) L 04/10/25 00:56 VBG pCO2 42 mmHg (38-50) 04/10/25 00:56 VBG pO2 42 mmHg 04/10/25 00:56 VBG HCO3 23 mmol/L 04/10/25 00:56 VBG O2 Saturation 75.0 % 04/10/25 00:56 VBG Base Excess -2.4 mEq/L 04/10/25 00:56 Sodium 136 mmol/L (136-145) 04/10/25 00:56 Potassium 3.4 mmol/L (3.5-5.1) L 04/10/25 00:56 Chloride 99 mmol/L (98-107) 04/10/25 00:56 Carbon Dioxide 23 mmol/L (21-32) 04/10/25 00:56 Anion Gap 14 (3-11) H 04/10/25 00:56 BUN 20 mg/dl (6-23) 04/10/25 00:56 Creatinine 1.29 mg/dl (0.6-1.4) 04/10/25 00:56 Est Cr Clr Drug Dosing 71.3 ml/min 04/10/25 00:56 eGFR 69.68 04/10/25 00:56 BUN/Creatinine Ratio 15.5 (10-20) 04/10/25 00:56 Glucose 151 mg/dl (70-99(Fasting)) H 04/10/25 00:56 POC Glucose 150 mg/dl (70-99) H 04/10/25 01:55 Lactate 1.8 mmol/L (0.4-2.0) 04/09/25 20:54 Calcium 9.1 mg/dl (8.6-10.3) 04/10/25 00:56 Phosphorus 4.9 mg/dl (2.5-4.9) 04/09/25 20:38 Magnesium 1.4 mg/dl (1.7-2.4) L 04/09/25 20:38 Total Bilirubin 1.4 mg/dl (0.2-1.0) H 04/09/25 20:38 AST 12 U/L (13-39) L 04/09/25 20:38 ALT 11 U/L (7-52) 04/09/25 20:38 Alkaline Phosphatase 131 U/L (34-104) H 04/09/25 20:38 Troponin I High Sens 7.5 pg/ml (0-20) 04/10/25 00:56 Total Protein 7.9 gm/dl (6.0-8.3) 04/09/25 20:38 Albumin 5.0 gm/dl (3.4-5.0) 04/09/25 20:38 Globulin 2.9 gm/dl (2.5-4.0) 04/09/25 20:38 Albumin/Globulin Ratio 1.7 (0.9-2) 04/09/25 20:38 Lipase 38 U/L (11-82) 04/09/25 20:38 Procalcitonin 0.06 ng/ml (0-0.5) 04/09/25 20:38 TSH 1.307 uIu/ml (0.300-4.500) 04/09/25 20:38 PTH Intact 32.4 pg/ml (12.0-88.0) 04/10/25 00:56 Ethyl Alcohol mg/dL < 10.0 mg/dl (<10.0) 04/10/25 00:56 Impressions Chest X-Ray 04/09/25 20:38 Exam(s): XR CXR 1 VIEW EXAM: XR Chest, 1 View CLINICAL HISTORY: Reason for exam: Sepsis. TECHNIQUE: Frontal view of the chest. COMPARISON: 10/28/2024 FINDINGS: Lungs: No consolidation. Pleural space: No significant pleural effusion. No pneumothorax. Heart: No cardiomegaly or pulmonary vascular congestion. Bones/joints: No acute fracture. No dislocation. IMPRESSION: No evidence of acute cardiopulmonary disease. Electronically signed by: Opal Wasserman M.D. 04/09/25 23:09 PM Abdomen/Pelvis CT 04/09/25 23:58 EXAM: CT abd pelvis IV con only CLINICAL HISTORY: worsening abd pain, noac TECHNIQUE: Contiguous axial images were obtained from the level of the diaphragm to the pubic symphysis with intravenous contrast. Coronal and sagittal reconstructions were likewise performed and indicated to increase the sensitivity for detecting clinically relevant pathology. If IV contrast material had not been administered, the likelihood of detecting abnormalities relevant to the patient's condition would have been substantially decreased. CT scan was performed according to ALARA (as low as reasonable achievable). COMPARISON: FINDINGS: The visualized lung bases are clear. The liver is normal in size and attenuation. No focal liver lesions are seen. There is no intra or extrahepatic biliary ductal dilatation. Hepatic vasculature is patent. The gallbladder is present. The spleen, pancreas, and adrenal glands are unremarkable. The kidneys are normal in size and attenuation. There is no hydronephrosis or perinephric fat stranding. No renal calculi or renal masses are identified. The ureters are normal in caliber and no ureteral calculi are seen. The bladder is normal in contour. Pelvic viscera are unremarkable. No focal or diffuse bowel wall thickening or evidence of bowel obstruction is identified. Abdominal and pelvic vasculature is patent. No adenopathy or fluid collections are seen. No aggressive appearing osseous lesions are identified. Small omental fat containing umbilical hernia with size of defect measures about 8 x 9 mm. Multiple small uncomplicated sigmoid colonic diverticulosis-stable. IMPRESSION: 1. Small omental fat containing umbilical hernia . -stable. 2. Multiple small uncomplicated sigmoid colonic diverticulosis-stable. 3. Prior mesenteric fat stranding adjacent to the Gastric pylorus is completely resolved in present scan. 4. No other new interval abnormality since prior study. Electronically signed by Ovidio Mccray 04-10-2025 01:[address] 04/09/25 23:58 EXAM: CT cervical spine wo con CLINICAL HISTORY: pain, noac TECHNIQUE: Computed tomography of the cervical spine performed without intravenous contrast. Contiguous axial images were obtained from the skull base to T2, with sagittal and coronal reformatted images reconstructed from the axial data. CT scan was performed according to ALARA (as low as reasonable achievable). COMPARISON: none FINDINGS: Straightening of cervical spine. Degenerative changes in the form of marginal osteophytes, endplate changes and discal changes in cervical spine Cervical vertebral bodies are normal in height and alignment, with no evidence of fracture or subluxation. Lateral masses of C1 are symmetrical, and the dens is intact. Prevertebral soft tissues are not widened. The remaining suprahyoid and infrahyoid soft tissues in the neck are unremarkable. C2-C3: Disc bulge indenting anterior thecal sac, no mass effect on the cord or neuroforaminal narrowing. C3-C4: Disc bulge indenting anterior thecal sac, no mass effect on the cord or neuroforaminal narrowing. C4-C5: Disc bulge indenting anterior thecal sac, no mass effect on the cord or neuroforaminal narrowing. C5-C6: decreased intervertebral disc height, No disc bulge, mass effect on the cord or neuroforaminal narrowing. C6-C7: disc bulge,No mass effect on the cord or neuroforaminal narrowing. C7-T1: No disc bulge, mass effect on the cord or neuroforaminal narrowing. Thyroid gland appears unremarkable. IMPRESSION: 1.No acute fracture or subluxation in the cervical spine 2. Straightening of cervical spine with degenerative changes Electronically signed by Ovidio Mccray 04-10-2025 01:32 AM Chest CTA 04/09/25 23:58 EXAM: CT angio chest PE protocol CLINICAL HISTORY: cp TECHNIQUE: Contiguous axial images were obtained from the neck base through the upper abdomen following intravenous administration of iodinated contrast material. Angiographic images were processed, 3D MIP images were acquired for interpretation. If IV contrast material had not been administered, the likelihood of detecting abnormalities relevant to the patient's condition would have been substantially decreased. Coronal and sagittal 3-D MIPs were likewise performed and indicated to increase the sensitivity of detectin diffuse clinically relevant pathology. CT scan was performed according to ALARA (as low as reasonable achievable). COMPARISON: 09/01/2024 19:00:49 COPY CENTER OPERATOR FINDINGS: Adequate contrast bolus without evidence of pulmonary embolism. The central airways are patent. The lungs are clear. No pleural effusion. The heart, aorta, and pulmonary arteries are of normal size and configuration. There are coronary artery and aortic atherosclerotic calcifications. No pericardial effusion is identified. The thyroid is unremarkable. No mediastinal, hilar, or axillary lymphadenopathy is noted. No suspicious lytic or sclerotic osseous lesions are identified. Degenerative changes noted in visualized spine Sternal sutures in-situ IMPRESSION: No evidence of pulmonary embolism or pulmonary disease. Degenerative changes in visualized spine No significant interval change Electronically signed by Ovidio Mccray 04-10-2025 01:[address] 04/09/25 23:58 EXAM: CT head/brain wo con CLINICAL HISTORY: kelley, noac TECHNIQUE: Multiple axial images are obtained from the skull base to the vertex without contrast. CT scan was performed according to ALARA (as low as reasonable achievable). COMPARISON: 05/15/2022 18:46:52 COPY CENTER OPERATOR FINDINGS: The brain shows normal morphology, attenuation, and volume for age. No evidence of space occupying lesion, hemorrhage, edema, mass effect, midline shift, extra axial collection, or hydrocephalus is noted. Ventricles, sulci, and basal cisterns are symmetric and normal in size and configuration. The pimentel-white matter differentiation is preserved. Visualized paranasal sinuses and mastoid air cells are well aerated. Orbital contents are within normal limits. Bony structures are intact. IMPRESSION: 1. No evidence of acute intracranial abnormality is demonstrated No interval changes compared to prior study Electronically signed by Ovidio Mccray 04-10-2025 01:21 AM Diagnostic Findings EKG as per my interpretation :Rate 130, sinus tachycardia, RAD, RBBB, T wave ab normalities inferior leads, low voltage
[2025-04-10 01:09] LABS: Base Excess VBG -2.4 mEq/L; HCO3 VBG 23 mmol/L; PCO2 VBG 42 mmHg (38-50); PO2 VBG 42 mmHg; pH VBG 7.35 (7.36-7.41)
--- NOTE | 2025-04-10 01:21 | CT Scan Report ---
EXAM: CT head/brain wo con CLINICAL HISTORY: magen kelley TECHNIQUE: Multiple axial images are obtained from the skull base to the vertex without contrast. CT scan was performed according to ALARA (as low as reasonable achievable). COMPARISON: 05/15/2022 18:46:52 SPRAYER INSECTICIDE FINDINGS: The brain shows normal morphology, attenuation, and volume for age. No evidence of space occupying lesion, hemorrhage, edema, mass effect, midline shift, extra axial collection, or hydrocephalus is noted. Ventricles, sulci, and basal cisterns are symmetric and normal in size and configuration. The pimentel-white matter differentiation is preserved. Visualized paranasal sinuses and mastoid air cells are well aerated. Orbital contents are within normal limits. Bony structures are intact. IMPRESSION: 1. No evidence of acute intracranial abnormality is demonstrated No interval changes compared to prior study Electronically signed by Ovidio Mccray 04-10-2025 01:21 AM
--- NOTE | 2025-04-10 01:22 | CT Scan Report ---
EXAM: CT abd pelvis IV con only CLINICAL HISTORY: worsening abd pain, noac TECHNIQUE: Contiguous axial images were obtained from the level of the diaphragm to the pubic symphysis with intravenous contrast. Coronal and sagittal reconstructions were likewise performed and indicated to increase the sensitivity for detecting clinically relevant pathology. If IV contrast material had not been administered, the likelihood of detecting abnormalities relevant to the patient's condition would have been substantially decreased. CT scan was performed according to ALARA (as low as reasonable achievable). COMPARISON: FINDINGS: The visualized lung bases are clear. The liver is normal in size and attenuation. No focal liver lesions are seen. There is no intra or extrahepatic biliary ductal dilatation. Hepatic vasculature is patent. The gallbladder is present. The spleen, pancreas, and adrenal glands are unremarkable. The kidneys are normal in size and attenuation. There is no hydronephrosis or perinephric fat stranding. No renal calculi or renal masses are identified. The ureters are normal in caliber and no ureteral calculi are seen. The bladder is normal in contour. Pelvic viscera are unremarkable. No focal or diffuse bowel wall thickening or evidence of bowel obstruction is identified. Abdominal and pelvic vasculature is patent. No adenopathy or fluid collections are seen. No aggressive appearing osseous lesions are identified. Small omental fat containing umbilical hernia with size of defect measures about 8 x 9 mm. Multiple small uncomplicated sigmoid colonic diverticulosis-stable. IMPRESSION: 1. Small omental fat containing umbilical hernia . -stable. 2. Multiple small uncomplicated sigmoid colonic diverticulosis-stable. 3. Prior mesenteric fat stranding adjacent to the Gastric pylorus is completely resolved in present scan. 4. No other new interval abnormality since prior study. Electronically signed by Ovidio Mccray 04-10-2025 01:22 AM
[2025-04-10 01:28] LABS: BUN Creatinine Ratio 15.5 (10-20); Calcium 9.1 mg/dl (8.6-10.3); Creatinine Clr Calc Pharmacy 71.3 ml/min; Potassium 3.4 mmol/L (3.5-5.1)
--- NOTE | 2025-04-10 01:32 | CT Scan Report ---
EXAM: CT cervical spine wo con CLINICAL HISTORY: pain, noac TECHNIQUE: Computed tomography of the cervical spine performed without intravenous contrast. Contiguous axial images were obtained from the skull base to T2, with sagittal and coronal reformatted images reconstructed from the axial data. CT scan was performed according to ALARA (as low as reasonable achievable). COMPARISON: none FINDINGS: Straightening of cervical spine. Degenerative changes in the form of marginal osteophytes, endplate changes and discal changes in cervical spine Cervical vertebral bodies are normal in height and alignment, with no evidence of fracture or subluxation. Lateral masses of C1 are symmetrical, and the dens is intact. Prevertebral soft tissues are not widened. The remaining suprahyoid and infrahyoid soft tissues in the neck are unremarkable. C2-C3: Disc bulge indenting anterior thecal sac, no mass effect on the cord or neuroforaminal narrowing. C3-C4: Disc bulge indenting anterior thecal sac, no mass effect on the cord or neuroforaminal narrowing. C4-C5: Disc bulge indenting anterior thecal sac, no mass effect on the cord or neuroforaminal narrowing. C5-C6: decreased intervertebral disc height, No disc bulge, mass effect on the cord or neuroforaminal narrowing. C6-C7: disc bulge,No mass effect on the cord or neuroforaminal narrowing. C7-T1: No disc bulge, mass effect on the cord or neuroforaminal narrowing. Thyroid gland appears unremarkable. IMPRESSION: 1.No acute fracture or subluxation in the cervical spine 2. Straightening of cervical spine with degenerative changes Electronically signed by Ovidio Mccray 04-10-2025 01:32 AM
[2025-04-10] MEDS ORDERED: DEXTROSE 50% 50 ML SYRINGE IV PRN (01:33)
[2025-04-10] MEDS ORDERED: NITROGLYCERIN SL 0.4 MG/TAB TAB SL PRN (01:33)
[2025-04-10] MEDS ORDERED: GLUCOSE 40% GEL 15 GM TUBE PO PRN (01:33)
[2025-04-10] MEDS ORDERED: CARBOHYDRATES FOR HYPOGLYCEMIA PO PRN (01:33)
[2025-04-10] MEDS ORDERED: GLUCAGON FOR INJ 1 MG VIAL SQ PRN (01:33)
[2025-04-10] MEDS ORDERED: GLUCOSE 10 TAB/TUBE PO PRN (01:33)
[2025-04-10 01:34] LABS: Troponin I High Sensitivity 7.5 pg/ml (0-20)
[2025-04-10] MEDS ORDERED: LORazepam 2 MG/1 ML VIAL IV PRN (01:34)
--- NOTE | 2025-04-10 01:39 | CT Scan Report ---
EXAM: CT angio chest PE protocol CLINICAL HISTORY: cp TECHNIQUE: Contiguous axial images were obtained from the neck base through the upper abdomen following intravenous administration of iodinated contrast material. Angiographic images were processed, 3D MIP images were acquired for interpretation. If IV contrast material had not been administered, the likelihood of detecting abnormalities relevant to the patient's condition would have been substantially decreased. Coronal and sagittal 3-D MIPs were likewise performed and indicated to increase the sensitivity of detectin diffuse clinically relevant pathology. CT scan was performed according to ALARA (as low as reasonable achievable). COMPARISON: 09/01/2024 19:00:49 NUCLEAR ENGINEER FINDINGS: Adequate contrast bolus without evidence of pulmonary embolism. The central airways are patent. The lungs are clear. No pleural effusion. The heart, aorta, and pulmonary arteries are of normal size and configuration. There are coronary artery and aortic atherosclerotic calcifications. No pericardial effusion is identified. The thyroid is unremarkable. No mediastinal, hilar, or axillary lymphadenopathy is noted. No suspicious lytic or sclerotic osseous lesions are identified. Degenerative changes noted in visualized spine Sternal sutures in-situ IMPRESSION: No evidence of pulmonary embolism or pulmonary disease. Degenerative changes in visualized spine No significant interval change Electronically signed by Ovidio Mccray 04-10-2025 01:37 AM
[2025-04-10] MEDS: POTASSIUM CHLORIDE CRTAB 20 MEQ TABCR PO STA (02:09)
[2025-04-10] MEDS: INSULIN ASPART PER UNIT CHARGE SC SCH (02:10)
[2025-04-10] MEDS: LANTUS PER UNIT CHARGE SQ STA (03:23)
[2025-04-10] MEDS: tiZANidine HCL 4 MG TABLET PO STA (03:24)
[2025-04-10] MEDS: GABAPENTIN 300 MG CAP PO STA (03:25)
[2025-04-10 03:30] LABS: Appearance Urine Clear (Clear); Bacteria Urine Automated None Seen (None Seen); Bilirubin Urine Negative (Negative); Blood Urine Negative (Negative); Cast Urine Automated >20 /lpf (0-2); Color Urine Yellow; Epithelial Cell Urine Auto 0-2 /hpf (0-2); Glucose Urine UA 3+ (Negative); Hyaline Casts Urine Present /lpf (None Presnt); Ketones Urine 1+ (Negative); Leukocyte Esterase Urine Negative (Negative); Nitrite Urine Negative (Negative); Protein Urine 2+ (Negative); RBC Urine Automated 0-2 /hpf (0-2); Specific Gravity Urine > 1.045 (1.000-1.030); Urobilinogen Urine Negative (Negative); WBC Urine Automated 0-5 /hpf (0-5)
[2025-04-10 03:55] LABS: Amphetamines+Metham, Urine Neg (Neg); Barbiturates, Urine Neg (Neg); Benzodiazepine, Urine Neg (Neg); Cocaine, Urine Neg (Neg); Fentanyl, Urine Neg (Neg); MDMA (Ecstacy), Urine Neg (Neg); Marijuana, Urine Pos (Neg); Methadone, Urine Neg (Neg); Opiate, Urine Neg (Neg); Phencyclidine, Urine Neg (Neg)
[2025-04-10] MEDS: LINACLOTIDE 145 MCG CAPSULE PO SCH (05:54)
[2025-04-10 08:04] LABS: Estimated Average Glucose 312 mg/dl; Hemoglobin A1C 12.5 % (4.5-5.6)
[2025-04-10] MEDS: GABAPENTIN 300 MG CAP PO SCH (08:15)
[2025-04-10] MEDS: VALSARTAN/SACUBITRIL 26/24MG TAB PO SCH (08:15)
[2025-04-10] MEDS: DULoxetine HCL 30 MG CAP PO SCH (08:15)
[2025-04-10] MEDS: EZETIMIBE 10 MG TAB PO SCH (08:15)
[2025-04-10] MEDS: ACETAMINOPHEN 325 MG TAB PO PRN (08:15)
[2025-04-10] MEDS: FENOFIBRATE NANOCRYSTALLIZED 145 MG TABLET PO SCH (08:16)
[2025-04-10] MEDS: PANTOprazole 40 MG TAB PO SCH (08:16)
[2025-04-10] MEDS: ATORVASTATIN 40 MG TAB PO SCH (08:16)
[2025-04-10] MEDS: METOPROLOL SUCC 25MG EXT REL TAB PO SCH (08:16)
[2025-04-10] MEDS: MULTIVITAMIN TAB PO SCH (08:17)
[2025-04-10] MEDS: FOLIC ACID 1 MG TAB PO SCH (08:17)
[2025-04-10] MEDS: METOCLOPRAMIDE HCL 10 MG TABLET PO SCH (08:17)
[2025-04-10] MEDS: THIAMINE HCL 100 MG TAB PO SCH (08:17)
[2025-04-10] MEDS: LANTUS PER UNIT CHARGE SQ SCH (08:55)
[2025-04-10 08:56] LABS: Basophils # (auto) 0.04 K/uL (0.00-0.20); Basophils % (auto) 0.8 %; Eosinophils # (auto) 0.21 K/uL (0.00-0.50); Hematocrit (blood only) 48.4 % (42.0-52.0); Hemoglobin 16.7 g/dl (14.0-18.0); Immature Granulocytes # (auto) 0.02 K/uL (0.01-0.20); Immature Granulocytes % (auto) 0.4 %; Lymphocytes # (auto) 1.88 K/uL (1.20-3.40); Lymphocytes % (auto) 35.5 %; Mean Corpuscular Hemoglobin 28.4 pg (25.0-34.0); Mean Corpuscular Hgb Conc 34.5 g/dL (32.0-36.0); Mean Corpuscular Volume 82.3 fL (80.0-100.0); Mean Platelet Volume 11.5 fL (9.4-12.4); Monocytes # (auto) 0.49 K/uL (0.11-0.59); Monocytes % (auto) 9.3 %; Neutrophils # (auto) 2.65 K/uL (1.40-6.50); Platelet Count 172 K/uL (130-400); RDW Coefficient of Variation 12.6 % (11.5-14.5); RDW Standard Deviation 37.3 fL (36.4-46.3); Red Blood Count 5.88 M/uL (4.70-6.10); White Blood Count 5.29 K/ul (4.8-10.8)
[2025-04-10 09:15] LABS: BUN Creatinine Ratio 17.9 (10-20); Calcium 9.1 mg/dl (8.6-10.3); Creatinine Clr Calc Pharmacy 87.2 ml/min; Magnesium 1.8 mg/dl (1.7-2.4); Potassium 3.8 mmol/L (3.5-5.1)
[2025-04-10] MEDS: MAGNESIUM SULFATE / D5W 1 GM/100 ML BAG IV SCH (10:07)
[2025-04-10 13:03] LABS: A calco-baum cmplx NotReported Not Detected (NotDetected); Bact fragilis Not Reported Not Detected (NotDetected); Blood Culture Id Panel See PCR Comment (NotDetected); C auris Not Reported Not Detected (NotDetected); Calbicans Not Reported Not Detected (NotDetected); Candida glabrata Not Reported Not Detected (NotDetected); Candida krusei Not Reported Not Detected (NotDetected); Cneoformans/gatti Not Reported Not Detected (NotDetected); Cparapsilosis Not Reported Not Detected (NotDetected); Ctropicalis Not Reported Not Detected (NotDetected); E cloacae compx Not Reported Not Detected (NotDetected); Efaecalis Not Reported Not Detected (NotDetected); Efaecium Not Reported Not Detected (NotDetected); Enterobacterales Not Reported Not Detected (NotDetected); Escherichia coli Not Reported Not Detected (NotDetected); H influenzae Not Reported Not Detected (NotDetected); K aerogenes Not Reported Not Detected (NotDetected); Koxytoca Not Reported Not Detected (NotDetected); Kpneumoniae grp Not Reported Not Detected (NotDetected); Lmonocyt Not Reported Not Detected (NotDetected); N meningitidis Not Reported Not Detected (NotDetected); P aeruginosa Not Reported Not Detected (NotDetected); Proteus spp Not Reported Not Detected (NotDetected); Salmonella spp Not Reported Not Detected (NotDetected); Staph lugdunensis Not Reported Not Detected (NotDetected); Staphaureus Not Reported Not Detected (NotDetected); Staphepi Not Reported Not Detected (NotDetected); Staphylococcus spp. DETECTED (NotDetected); Stenmaltophilia Not Reported Not Detected (NotDetected); Strep agal(GrpB) Not Reported Not Detected (NotDetected); Strep pneum Not Reported Not Detected (NotDetected); Strep pyog (GrpA) Not Reported Not Detected (NotDetected); Strep spp Not Reported Not Detected (NotDetected)
[2025-04-10 13:30] LABS: Staph spp. Not Reported DETECTED (NotDetected)
--- NOTE | 2025-04-10 15:04 | Communication Note ---
Date of Service: April 10, 2025 Patient seen and examined at bedside. admitted overnight. Anion Gap closed. Patient very agitated on exam--patient states that he is "done trying to fix it all" and that "no one helps him." Further questions were had to gather insight. Patient states that he has tried the home health services and they did not perform the expected services. He states he is limited in his ability to get around and relies on his girlfriend. His A1C and insulin regimens were discussed and he states he doesn't want to hear about it and there is nothing this provider could do to help or change his mind. He does report limited mobility therefore pt/ot consulted. Constitutional: Alert oriented x 3; not in distress. Respiratory: CTABL Cardiovascular: RRR, no murmur, no edema Chest: normal inspection of chest Abdomen: normal bowel sounds, soft, nontender, no hepatosplenomegaly Musculoskeletal: no cyanosis or clubbing, extremities motor strength 5/5 Skin: no rashes, warm and dry normal turgor Neurologic: PERRL, EOMI, accommodation nl, no face palsy, no dysarthria CN's II- XI intact bilaterally and moves all extremities Psychiatric: A+Ox3, euthymic affect #Mild DKA presented with worsening "pain" symptoms briefly on insulin drip then transitioned to basal bolus GAP closeed this am,bicarb wnl continue basal bolus start carb consistent diet suspect noncompliance as A1C 12%, however, patient declined further discussion about insulin use, lifestyle modifications or other education #weakness reports of weakness and limited OT/PT ordered #Heart failure with recovered ejection fraction #HTN EF 20 to 25% echo done 04/2022; EF 50 to 55% on echo done on 05/2024 Currently not on diuretics Continue Entresto and metoprolol succinate Monitor for volume overload #Hyperlipidemia Statin, Zetia and fenofibrate #GERD continue protonix bid #Gastroparesis conitnue home reglan #History of PE On Xarelto #History of atrial flutter Metoprolol succinate and Xarelto DVT prophylaxis On Xarelto Disposition Telemetry Full code.
[2025-04-10] MEDS: RIVAROXABAN 20 MG TAB PO SCH (17:37)
[2025-04-10 19:37] VITALS: RESP 18
[2025-04-10] MEDS: traZODone HCL 50 MG TAB PO SCH (20:21)
[2025-04-11 08:34] LABS: BUN Creatinine Ratio 18.4 (10-20); Calcium 9.2 mg/dl (8.6-10.3); Creatinine Clr Calc Pharmacy 94.8 ml/min; Magnesium 1.9 mg/dl (1.7-2.4); Potassium 3.7 mmol/L (3.5-5.1)
[2025-04-11 11:48] VITALS: TEMP 98.1; O2SAT 97
--- NOTE | 2025-04-11 13:20 | Electrocardiogram Report ---
Test Reason : Blood Pressure : */* mmHG Vent. Rate : 122 BPM Atrial Rate : 122 BPM P-R Int : 180 ms QRS Dur : 144 ms QT Int : 412 ms P-R-T Axes : * 194 -15 degrees QTcB Int : 587 ms Sinus tachycardia Right bundle branch block Abnormal ECG When compared with ECG of 19-Oct-2024 22:10, Questionable change in QRS duration Confirmed by Candido Tobar ([id number]) on 04/11/2025 1:20:06 PM Referred By: REFERRED SELF Confirmed By: Candido Tobar
[2025-04-11 13:36] VITALS: BP 99/62; PULSE 76
--- NOTE | 2025-04-11 13:37 | Discharge Summary ---
Discharge Summary Date of Service April 11, 2025 Principal Dx & Hospital Course #1 = Principal Diagnosis (1) Generalized pain: Plan Mr. Day is a 44 yo male with medical history significant for chronic systolic heart failure (EF 45%, TTE 2023, hx nonischemic cardiomyopathy), history congenital heart surgery, hypertension, hyperlipidemia, paroxysmal atrial flutter/unprovoked PE status post Xarelto, DM2 insulin requiring, chronic abdominal pain, GERD, gastroparesis as per records, alcohol abuse as per records, past tobacco abuse, medical noncompliance who was admitted for mild dka and dehydration. Patient's labs improved with IVF and resumption of insulin. Patient declined much discussion regarding diabetes or life style management. Patient reports his mobility is limited, he has no income and he is experiencing difficulty with getting disability. He reports issues with follow up due to inability to transport self and notes "annoyance" with everyone in the office. Walker was provided to patient to help with mobility. Attempts made to coodinate op follow up and encourage medication compliance and lifestyle modifications. Offered any refills on medication, patient declined #Mild DKA presented with worsening "pain" symptoms briefly on insulin drip then transitioned to basal bolus GAP closed bicarb wnl resume home regimen suspect noncompliance as A1C 12%, however, patient declined further discussion about insulin use, lifestyle modifications or other education #weakness #neuropathy reports of weakness and limited ability for distance walking walker provided #Heart failure with recovered ejection fraction #HTN EF 20 to 25% echo done 04/2022; EF 50 to 55% on echo done on 05/2024 Currently not on diuretics Continue Entresto and metoprolol succinate #Hyperlipidemia Statin, Zetia and fenofibrate #GERD continue protonix bid #Gastroparesis conitnue home reglan #History of PE On Xarelto #History of atrial flutter Metoprolol succinate and Xarelto Notes For Next Care Provider Patient refused further discussion on diabetes management Medication Changes From Visit Tramadol 50mg bid prn for osteoarthritic pain walker provided Admission HPI Per Admitting Provider History obtained from patient and records. Medical history significant for chronic systolic heart failure (EF 45%, TTE 2023, hx nonischemic cardiomyopathy), history congenital heart surgery, hypertension, hyperlipidemia, paroxysmal atrial flutter/unprovoked PE status post Xarelto, DM2 insulin requiring, chronic abdominal pain, GERD, gastroparesis as per records, alcohol abuse as per records, past tobacco abuse, medical noncompliance as per records. Last confinement October 2024 for DKA. No PCP follow-up visit since discharge from the hospital. Patient negativistic/hard to reach/get through to as per outpatient community health funeral home assistant note from 5 months ago. Patient had worsening of chronic pain (headache, neck pain, achy chest pain/central abdominal pain) the last few days. No cough or SOB. Bilious emesis symptoms without diarrhea. Claims to be compliant with home insulin. High blood sugars at home which patient attributes to uncontrolled pain. Patient consulted ER for evaluation. SBP 170s upon arrival at the ER. Medical History as above Surgical History : VSD surgery, ankle surgery, dental surgery, knee surgery Family History : DM Personal/Social history : Past tobacco abuse, alcohol abuse as per records which patient denies, currently unemployed Admission Exam Per Admitting Provider GENERAL: Apathetic, slightly irate, obese, no respiratory distress SKIN: Normal color, warm HEENT: Alianza palpebral conjunctivae, no ptosis, dry buccal mucosa NECK : Supple, no tenderness CHEST : CTA, no tenderness HEART : RRR, no obvious murmurs ABDOMEN: Some distention, minimal epigastric tenderness EXTREMITIES : Minimal LE swelling without tenderness, no other conspicuous deformities noted NEUROLOGIC : Coherent, no facial asymmetry, gait and stance not assessed Discharge Exam Constitutional agitated, reports frustration with all services, no distress otherwise noted Respiratory normal respiratory effort, lungs clear to auscultation Cardiovascular RRR, no murmur, no edema Gastrointestinal (Abdomen) normal bowel sounds, soft, nontender, no hepatosplenomegaly Updated Medication List Medication Instructions Recorded Confirmed Type atorvastatin 40 mg tablet 40 mg PO QAM 10/28/24 04/09/25 History duloxetine 30 mg capsule,delayed 30 mg PO QAM 10/28/24 04/09/25 History release empagliflozin 10 mg tablet 10 mg PO DAILY 10/28/24 04/09/25 History (Jardiance) ezetimibe 10 mg tablet 10 mg PO QAM 10/28/24 04/09/25 History fenofibrate nanocrystallized 145 145 mg PO QAM 10/28/24 04/09/25 History mg tablet gabapentin 300 mg capsule 300 mg PO TID 10/28/24 04/09/25 History insulin glargine 100 unit/mL (3 20 unit subcut QAM 10/28/24 04/09/25 History mL) subcutaneous pen (Lantus Solostar U-100 Insulin) linaclotide 290 mcg capsule 290 mcg PO DAILYBB 10/28/24 04/09/25 History (Linzess) metoclopramide HCl 10 mg tablet 10 mg PO TID 10/28/24 04/09/25 History metoprolol succinate 50 mg 75 mg PO QAM 10/28/24 04/09/25 History tablet,extended release 24 hr pantoprazole 40 mg tablet,delayed 40 mg PO AMHS 10/28/24 04/09/25 History release promethazine 6.25 mg/5 mL oral 6.25 mg PO AC 10/28/24 04/09/25 History syrup rivaroxaban 20 mg tablet (Xarelto) 20 mg PO QDD 10/28/24 04/09/25 History sacubitril 24 mg-valsartan 26 mg 0.5 tab PO BID 10/28/24 04/09/25 History tablet (Entresto) trazodone 50 mg tablet 50 mg PO HS 10/28/24 04/09/25 History magnesium citrate 120 ml PO DAILY PRN SEVERE 04/09/25 04/09/25 History CONSTIPATION triamcinolone acetonide 0.1 % 1 applic topical BID PRN Itching 04/09/25 04/09/25 History topical cream tramadol 50 mg tablet 50 mg PO BID PRN pain #14 tabs 04/11/25 Rx Hospital Stay Data Consultations 04/09/25 23:17 ED Decision to Admit Stat Diagnostic Imagining Performed 04/09/25 23:58 CT Abd and Pelvis [CT abd pelvis IV con only] Stat CT angio chest PE protocol Stat CT cervical spine wo con Stat CT head/brain wo con Stat Pending Results Patient Have Any Pending Studies at Discharge: No Discharge Instructions Given to Patient (Per Discharging Provider) You were admitted for mild diabetic ketoacidosis Your A1C is 12.5% Please continue your insulin as prescribed. Please consider a continuous glucose monitor You will need to follow up with your PCP to ensure your diabetes medication is sufficient or if you need insulin increases You declined further resources at this time, however, please reach out to your PCP for further discussion as you feel appropriate on how to manage your diabetes and other chronic conditions Total Time Total Time Spent Total Time Spent (In Minutes): 45
[2025-04-12 15:16] LABS: Marijuana Quant, GCMS Urine 265 ng/mL (<5)
== END 2025-04-11 14:06 | disposition home or self-care (01) | DRG 638 ==
LOC: ED 20:12 → 2N 04-10 01:32

== ENCOUNTER 2025-08-05 09:20 | Inpatient (IN) ==
[2025-08-05] MEDS: LACTATED RINGER'S 1,000 ML IV ONE ×2 (11:00→12:55)
--- NOTE | 2025-08-05 11:55 | History & Physical Report ---
Date of Service August 05, 2025 Assessment & Plan (1) Diabetic keto-acidosis: (2) Lactic acid acidosis: (3) Hypokalemia: (4) Generalized pain: Plan #DKA - Labs at [facility] show: K+ 2.3, WBC 22.9, Hgb 17.4, Plt 283, LA 3.8, pH sara 7.3, pCO2 23, pO2 TNP, INR 3.23 - Previously given Vancomycin and Zosyn at as well as empiric 30cc/kg fluid bolus - Labs today show: - Previously received 3 L of fluid, LR fluid bolus given 08/05 - DKA Protocol initiated, q4 labs - NS w/ KCl 150 mL/hr - NS w/ potassium phosphorous 88ml/hr - NPO #Hypokalemia - K+ at [facility] 2.3 - 10 mEq x 2 bags of K+ given - 08/05 2.6 - Currently on NS with KCl 150mL/hr #Lactic Acidosis - Lactate at PH 3.8 - 08/05 lactate 3.3 --> 2.0 #Hx of Atrial Flutter - Continue home warfarin and metoprolol - INR 3.4, Warfarin dose decreased to 1.5mg on 08/05 Dispo: admit PCU tele Diet: NPO Code status: Full DVT Prophylaxis: Warfarin Admission and Anticipated Discharge Date Admission Date: August 05, 2025 History of Present Illness Chief Complaint: hyperglycemia & weakness Primary Care Provider: GERARD PCP 45 yo M with PMHx of afib with RVR, hx of DKA, BONILLA, T2DM, alcohol abuse, GERD, HTN who presents to the hospital due to hyperglycemia and weakness. Patient is a difficult historian but reports weakness, vomiting, and overall body pain x 3 days. He is accompanied by his aunt who assists with history. Patient states his weakness, vomiting, and generalized pain worsened today which prompted him to call EMS. He was taken to [facility] and then eventually transferred to [facility]. Patient uses marijuana frequently and has been hospitalized for cannabinoid hyperemesis syndrome previously. Drinks alcohol 3-5 times per week, denies recent use. Allergies Allergy/AdvReac Type Severity Reaction Status Date / Time Sulfa (Sulfonamide Allergy Intermediate ITCHY/HOT Verified 07/14/25 19:07 Antibiotics) metformin AdvReac Intermediate Diarrhea Verified 07/14/25 19:07 semaglutide [From Ozempic] AdvReac Intermediate Hallucinati Verified 07/14/25 19:07 ng morphine AdvReac Mild Nausea Verified 07/14/25 19:07 Home Medications Medication Instructions Recorded Confirmed Type atorvastatin 40 mg tablet 40 mg PO QAM 10/28/24 07/14/25 History duloxetine 30 mg capsule,delayed 30 mg PO QAM 10/28/24 07/14/25 History release empagliflozin 10 mg tablet 10 mg PO DAILY 10/28/24 07/14/25 History (Jardiance) ezetimibe 10 mg tablet 10 mg PO QAM 10/28/24 07/14/25 History fenofibrate nanocrystallized 145 145 mg PO QAM 10/28/24 07/14/25 History mg tablet gabapentin 300 mg capsule 300 mg PO TID 10/28/24 07/14/25 History insulin glargine 100 unit/mL (3 20 unit subcut QAM 10/28/24 07/14/25 History mL) subcutaneous pen (Lantus Solostar U-100 Insulin) linaclotide 290 mcg capsule 290 mcg PO DAILYBB 10/28/24 07/14/25 History (Linzess) metoclopramide HCl 10 mg tablet 10 mg PO TID 10/28/24 07/14/25 History metoprolol succinate 50 mg 75 mg PO QAM 10/28/24 07/14/25 History tablet,extended release 24 hr pantoprazole 40 mg tablet,delayed 40 mg PO AMHS 10/28/24 07/14/25 History release promethazine 6.25 mg/5 mL oral 6.25 mg PO AC 10/28/24 07/14/25 History syrup rivaroxaban 20 mg tablet (Xarelto) 20 mg PO QDD 10/28/24 07/14/25 History sacubitril 24 mg-valsartan 26 mg 0.5 tab PO BID 10/28/24 07/14/25 History tablet (Entresto) trazodone 50 mg tablet 50 mg PO HS 10/28/24 07/14/25 History magnesium citrate 120 ml PO DAILY PRN SEVERE 04/09/25 07/14/25 History CONSTIPATION triamcinolone acetonide 0.1 % 1 applic topical BID PRN Itching 04/09/25 07/14/25 History topical cream ergocalciferol (vitamin D2) 1,250 1,250 mcg PO WK 07/14/25 07/14/25 History mcg (50,000 unit) capsule (Vitamin D2) furosemide 20 mg tablet 20 mg PO DAILY 07/14/25 07/14/25 History insulin lispro 100 unit/mL 6 unit subcut TIDM 07/14/25 07/14/25 History subcutaneous pen (Humalog KwikPen (U-100) Insulin) magnesium oxide 400 mg PO DAILY 07/14/25 07/14/25 History ondansetron 4 mg disintegrating 4 mg PO Q8H PRN NAUSEA/VOMITING 07/14/25 07/14/25 History tablet warfarin 3 mg tablet 3 mg PO .DAILY @1600 07/14/25 07/14/25 History Past Med/Surg History Problem List (Updated 08/05/25 @ 13:52 by Lakshmi Rangel MD) Hypokalemia Lactic acid acidosis BONILLA (acute kidney injury) Diabetic keto-acidosis Generalized pain Acute dehydration (Acute) Nausea and vomiting (Acute) Gastroparesis due to DM Atrial fibrillation with rapid ventricular response (Acute) Acute dehydration (Acute) Nausea & vomiting (Acute) Metabolic acidosis (Acute) Atypical chest pain Heart failure with improved ejection fraction (HFimpEF) Diaphoresis (Acute) Tachycardia (Acute) Acute dehydration (Acute) Weakness (Acute) BONILLA (acute kidney injury) (Acute) Syncope (Acute) Syncope and collapse Dehydration (Acute) High anion gap metabolic acidosis (Acute) DKA (diabetic ketoacidosis) (Acute) Alcohol withdrawal Esophagitis Malnutrition Nausea & vomiting Constipation Weight loss Lactic acid acidosis Metabolic acidosis Intractable nausea and vomiting (Acute) BONILLA (acute kidney injury) (Acute) Deep vein thrombosis, lower left extremity Non-ischemic cardiomyopathy New onset of congestive heart failure (04/2022) Dyspnea (Acute) Pleural effusion, bilateral (Acute) Right bundle branch block Vitamin D deficiency 8.9 in 06/2019 HLD (hyperlipidemia) TG 2049, TC 301 in 06/2019 T2DM (type 2 diabetes mellitus) (Acute) Alcohol abuse Overweight (BMI 25.0-29.9) HTN (hypertension) GERD (gastroesophageal reflux disease) Medical History Hypomagnesemia Acute dehydration DKA (diabetic ketoacidosis) DKA (diabetic ketoacidosis) Diabetes Non-ischemic cardiomyopathy denies Pleural effusion current problem "hear failure causes directly" - monitored by pcp. Denies change from baseline. Right bundle branch block pt doesn't know, reports: "not right now " when asked about hx of irregular heart beats. GERD (gastroesophageal reflux disease) pt not sure Hyperlipidemia HTN (hypertension) Poor historian History of renal failure yrs and yrs ago, pt doesn't know details surrounding. History of chest pain (05/2024) May 2024 pt reports felt like heart failure, not dx with anything. Admitted April or May 2024 [facility] for dka ?. Pt poor historian. No re occurence of chest pain. History of congestive heart failure dx age 3 following heart sx. "doesn't ever go away" - monitored by pcp. History of DVT (deep vein thrombosis) early 2023. History of pulmonary embolism 04/2022 History of diabetic ketoacidosis April or May 2024 - hospitalized [place]. Pt poor historian. Gastroparesis History of kidney stones Surgical History History of ankle surgery (2020) right ankle external fixator/I&D History of colonoscopy History of esophagogastroduodenoscopy (EGD) History of tooth extraction History of wisdom tooth extraction S/P knee surgery remove fluid off right knee History of heart surgery (1983) VSD- age 3---no issues since surgery, no seed buyer Family History Father Cardiac disorder Mother No problems noted. Aunt Cardiac disorder Other No family history of adverse response to anesthesia Denies family history of Ovarian cancer Prostate cancer Myocardial infarction Breast cancer Colorectal cancer Social History Smoking Status: Former smoker Age Started Using Tobacco: 16; Age Quit Using Tobacco: 26; packs per day: 0.5; Smoking End Date: 20 years ago; Second Hand Exposure: No; Do You Dip or Chew Tobacco: No; Hx Alcohol Use: No Hx Substance Use: No Preferred Language: [place] Communication Ability: Effective Communication Ability Comment: poor historian Visual Impairment: No Limitations Hearing Ability: Normal Agriculture Internship Required: No Beliefs That Will Affect Care: None marital status: Single Current Living Situation: Spouse Current Living Situation Comment: stay with girlfriend current occupational status: employed current occupation: [employer] How many Children do You have: 0 Other Information That Helps Us Care for You: No Feels Safe at Home: Yes Dental Care, Regularly: Yes Physical Activity Frequency: 3-4 Times per Week Assistive Devices: None Review of Systems Review of Systems: All systems reviewed & are unremarkable except as noted in HPI & below Physical Exam Constitutional: + ill appearing; + uncomfortable Respiratory: normal respiratory effort, lungs clear to auscultation Cardiovascular: Rate/Rhythm: + tachycardic Heart Sounds: normal S1 and normal S2 Extremities: no edema Gastrointestinal (Abdomen): Inspection/Auscultation: abdomen normal to inspection and normal bowel sounds Percussion/Palpation: + abdomen tender (all 4 quadrants) and abdomen soft Skin: no rashes, warm and dry Psychiatric: A+Ox3, euthymic affect Results & Data Results & Data Vital Signs (Past 12 Hours) Vital Signs Temp Pulse Resp BP Pulse Ox O2 Del Method 08/05/25 10:49 36.6 C 135 H 18 144/84 H 98 Room Air Supervising Physician Co-Signing Physician Notes Attending Attestation and Admission Note: Pt seen/examined, electronic chart reviewed, paper chart from [facility] reviewed, admit care plan d/w resident physician Dr Marielena Nguyen. I agree w/ the mckenzie components of her admit documentation with the following additions - * hyponatremia * hypophosphatemia * history of chronic systolic CHF with improved EF (EF 20-25% in 2021; EF now 50-55% in 2023) * HTN * h/o DVT/PE on coumadin * hyperlipidemia * gastroparesis * alcohol abuse 45yo male with history of DM, episodes of DKA, HTN, PE/DVT, hyperlipidemia, gastroparesis, alcohol abuse, prior chronic systolic CHF, afib/aflutter. Presented to [facility] with weakness, abd pain, vomiting, diffuse myalgias for several days. At presentation his BSG was >500. Labs c/w DKA. Severe hypokalemia on labs. [facility] contacted [facility] for transfer and brought to our ICU. PMH/PSH/allergies/meds/sochx - reviewed vitals: tachy, afebrile, BP wnl gen - lying in bed, looks ill, does wake up to his name being called mouth - MM severely dry, tongue with white color (thrush vs simply severe dehydration); fruity odor of breath neck - no JVD heart - tachy, s1 s2, no murmur lungs - CTA b/l abd - mildly tender epigastric region, BS+, ND, no HSM ext - no edema, pulses b/l feet 1+ at best, cool extremities labs reviewed here & at [facility] imaging reviewed [facility] (cxr neg) EKG [facility] - sinus tach (vs 2:1 aflutter) - favor former COVID/flu negative A/P: 1. uncontrolled DM with DKA; a1c >11%; DKA 2nd noncompliance with insulin regimen?? 2. hyponatremia - combination of "pseudohyponatremia" and hypovolemic hyponatremia 3. hypokalemia - 2nd to poor po intake, vomiting, etc. 4. hypophosphatemia 5. leukocytosis - no infectious source seen; likely due to stress of DKA/illness 6. h/o afib/aflutter 7. h/o DVT/PE 8. etoh abuse 9. h/o chronic systolic CHF with improved EF as noted above -manpower development specialist manager consultation -pharmacy glycemic team consultation -diabetes education -insulin drip per protocol -copious IV fluids -replace low K, low phos -serial labs -repeat CBC am - follow wbc count -INR >3 -- hold coumadin, daily INR -last echo is >1 year old -- in light of previous severe systolic CHF would repeat echo while here -AWSS and consider gabapentin or phenobarbital prophylaxis Gilberto Fischer MD Resident Activity Tracking Resident Involvement: Resident Care Provided Care Provided: Adult Hospital Medicine
[2025-08-05] MEDS ORDERED: MELATONIN 3 MG TAB PO PRN (12:24)
[2025-08-05] MEDS ORDERED: MAGNESIUM HYDROXIDE SUSP 30 ML UDC PO PRN (12:24)
[2025-08-05] MEDS ORDERED: ONDANSETRON INJ 2 MG/ML 2 ML VIAL IV PRN (12:24)
[2025-08-05] MEDS ORDERED: ALUMINUM/MAGNESIUM SUSP 30 ML UDC PO PRN (12:24)
[2025-08-05] MEDS ORDERED: POLYETHYLENE (MIRALAX) 17 GM PACK PO PRN (12:24)
[2025-08-05] MEDS ORDERED: PHARMACY GLYCEMIC MGMT CONSULT PRN (12:29)
[2025-08-05] MEDS ORDERED: STAT IV Infusion **Titration per Protocol STA (12:29)
[2025-08-05] MEDS ORDERED: INSULIN REGULAR 250 UNITS in SODIUM CHLORIDE 0.9% 247.5 ML IV SCH (12:30)
[2025-08-05] MEDS: POTASSIUM CHLORIDE / WTR 10 MEQ/100 ML PLCT IV SCH ×2 (12:58→16:59)
--- NOTE | 2025-08-05 13:36 | Critical Care Consultation ---
Date of Consultation August 05, 2025 Assessment & Plan (1) Diabetic keto-acidosis: (2) BONILLA (acute kidney injury): (3) Lactic acid acidosis: (4) Hypokalemia: Plan Patient is a 45-year-old male who is admitted as a transfer from [facility] emergency department with DKA. He has a known history of diabetes type 2 complicated by gastroparesis, history of congenital heart defect status post repair, congestive heart failure, GERD with esophagitis. Reason Critically Ill: Diabetic ketoacidosis Lactic acidosis Acute kidney injury Hypokalemia Neuro: Awake and alert. Was more encephalopathic at the outside hospital reportedly. Ethanol level was less than 3 at the outside hospital. Endorses smoking marijuana heavily to help with his abdominal pain. Cardiac: Sinus tachycardia, improving with IV fluid resuscitation. Reported history of A-fib/flutter, sinus today. Obtain troponin. On warfarin. Monitor INR daily. Respiratory: On room air, denies any recent respiratory illnesses. Has a cough but he says it is chronic. GI: Known history of esophagitis and reflux disorder. Generalized abdominal pain consistent with DKA. Nausea and vomiting likely related to DKA also could represent THC hyperemesis syndrome. Has a known history of gastroparesis secondary to his diabetes. Initiate pantoprazole IV twice daily. If abdominal pain is not resolving with DKA resolution may need CT imaging of the abdomen. Obtain amylase and lipase. RENAL/LYTES: Patient has acute kidney injury, likely secondary to dehydration. Also severe electrolyte disturbances with hypokalemia and anion gap metabolic acidosis with lactic acidosis. Has received 3 L of fluid now, would benefit from at least 1 more fluid bolus in addition to maintenance fluids. Will need repeat labs every 4 hours. Replacing potassium, will likely need aggressive potassium replacement. : Urinalysis from outside hospital without evidence of UTI. Ketones positive. ENDO: In DKA, has a history of type 2 diabetes, has not used his insulin in multiple days, has multiple episodes of DKA in the past. Initiate DKA protocol. Replace electrolytes aggressively, do not initiate insulin infusion until potassium 3.3 or above. Monitor labs every 4 hours. Obtain A1c. Obtain lipid panel. HEME: Significant leukocytosis, likely leukemoid reaction in setting of DKA. ID: Needs blood cultures, viral PCR. Urinalysis was negative at outside hospital. No need to repeat. Received vancomycin and Zosyn at the outside hospital. Feeding: NPO, can consider sips and chips as patient clinically improves. Fluids: Status post 3 L of crystalloid fluid resuscitation, will need maintenance fluids with potassium. Analgesia: None Activity: Bedrest Thromboprophylaxis: Place SCDs Ulcer prophylaxis: Initiate pantoprazole IV twice daily Glycemic control: DKA protocol, pharmacy consult Indwelling catheters: PIV, Loya catheter Antibiotics: Received vancomycin and Zosyn at [facility] on 08/05/2025. Plan: Patient will be admitted to the ICU. DKA protocol has been initiated, potassium is being replaced prior to insulin infusion initiation. Need to rule out acute abdominal process, lipase and amylase are pending. Need to monitor lactic acid. If lactic acid persists and abdominal pain does not resolve consider imaging of the abdomen. Patient has recurrent DKA, would likely benefit from endocrine consultation prior to discharge from the hospital and needs outpatient follow- up. I have personally spent 55 minutes of critical care time in the direct management of this patient. This is a life/limb threatening event. This includes time spent evaluating patient, direct bedside care, chart review, placing orders, interpretation of diagnostic studies, discussion with consultants, patient, and family members, as well as other required patient management activities. This time is exclusive of all separately billable procedures, and teaching time and separate from and in addition to any other critical care service time. History of Present Illness Reason for Consultation: DKA Requesting Physician: Gilberto Fischer MD Attending Physician: Gilberto Fischer MD History of Present Illness Patient is a 45-year-old male who was admitted as a transfer from [facility] ER with DKA. The patient presented to [facility] via EMS on 08/05/2025 for evaluation of weakness and vomiting. The patient had been having generalized weakness, nausea and vomiting for 3 days. The patient was noted to be tachycardic and encephalopathic upon arrival. An initial 30 cc/kg fluid bolus (2 L normal saline) was given in addition to broad-spectrum antibiotics with vancomycin and Zosyn. He also received multiple doses of Dilaudid for abdominal pain. The patient was a difficult access, he required an IO and had an CVC was attempted in the left IJ without success. Labs showed lactic acid of 3.8, venous pH was 7.3 with a pCO2 of 23, WBC 22.86, hemoglobin 17, platelet 283, glucose 589, BUN 46, creatinine 1.78, calcium 8.4, sodium 120, potassium 2.3, chloride 75, bicarb 11, anion gap of 36, AST 11 ALT 8, ethanol level was less than 3, TSH 0.66, INR 3.23 phosphorus 5.5, magnesium 2.5, total CK 96, troponin 48. Urinalysis showed 3+ glucose and 3+ ketones, negative for nitrates and leukocyte esterase. The patient was initiated on an insulin infusion. The decision was made to transfer the patient for ICU level of care to [facility]. Upon arrival to the ICU the patient is still complaining of abdominal pain and nausea. He completed 2 L of fluid. EMS did not continue insulin drip due to his severe hypokalemia. Has not received electrolyte replacement. The patient says that he has been sick for 3 days. He has not taken his insulin in that time. He has been having nausea and vomiting. He has been smoking more marijuana to help with his abdominal pain. He does not know if this is helping. He is unsure of any sick contacts. Endorses abdominal pain and weakness with pain all over his body. Not having shortness of breath. Having a chronic cough. The patient's aunt who is his legal guardian presented with the patient to the ICU. She is concerned about his health. She says that he has been living in a trailer behind her house recently. She says that he has lost a lot of weight recently and he is always complaining of vomiting. Past medical history: VSD status postrepair Atrial fibrillation/flutter Hypertension Gastroparesis GERD with esophagitis Hyperlipidemia Cardiomyopathy (systolic and diastolic dysfunction) Diabetes with history of recurrent DKA Alcohol use disorder Heavy marijuana use Allergies Allergy/AdvReac Type Severity Reaction Status Date / Time Sulfa (Sulfonamide Allergy Intermediate ITCHY/HOT Verified 07/14/25 19:07 Antibiotics) metformin AdvReac Intermediate Diarrhea Verified 07/14/25 19:07 semaglutide [From Ozempic] AdvReac Intermediate Hallucinati Verified 07/14/25 19:07 ng morphine AdvReac Mild Nausea Verified 07/14/25 19:07 Home Medications Medication Instructions Recorded Confirmed Type atorvastatin 40 mg tablet 40 mg PO QAM 10/28/24 07/14/25 History duloxetine 30 mg capsule,delayed 30 mg PO QAM 10/28/24 07/14/25 History release empagliflozin 10 mg tablet 10 mg PO DAILY 10/28/24 07/14/25 History (Jardiance) ezetimibe 10 mg tablet 10 mg PO QAM 10/28/24 07/14/25 History fenofibrate nanocrystallized 145 145 mg PO QAM 10/28/24 07/14/25 History mg tablet gabapentin 300 mg capsule 300 mg PO TID 10/28/24 07/14/25 History insulin glargine 100 unit/mL (3 20 unit subcut QAM 10/28/24 07/14/25 History mL) subcutaneous pen (Lantus Solostar U-100 Insulin) linaclotide 290 mcg capsule 290 mcg PO DAILYBB 10/28/24 07/14/25 History (Linzess) metoclopramide HCl 10 mg tablet 10 mg PO TID 10/28/24 07/14/25 History metoprolol succinate 50 mg 75 mg PO QAM 10/28/24 07/14/25 History tablet,extended release 24 hr pantoprazole 40 mg tablet,delayed 40 mg PO AMHS 10/28/24 07/14/25 History release promethazine 6.25 mg/5 mL oral 6.25 mg PO AC 10/28/24 07/14/25 History syrup rivaroxaban 20 mg tablet (Xarelto) 20 mg PO QDD 10/28/24 07/14/25 History sacubitril 24 mg-valsartan 26 mg 0.5 tab PO BID 10/28/24 07/14/25 History tablet (Entresto) trazodone 50 mg tablet 50 mg PO HS 10/28/24 07/14/25 History magnesium citrate 120 ml PO DAILY PRN SEVERE 04/09/25 07/14/25 History CONSTIPATION triamcinolone acetonide 0.1 % 1 applic topical BID PRN Itching 04/09/25 07/14/25 History topical cream ergocalciferol (vitamin D2) 1,250 1,250 mcg PO WK 07/14/25 07/14/25 History mcg (50,000 unit) capsule (Vitamin D2) furosemide 20 mg tablet 20 mg PO DAILY 07/14/25 07/14/25 History insulin lispro 100 unit/mL 6 unit subcut TIDM 07/14/25 07/14/25 History subcutaneous pen (Humalog KwikPen (U-100) Insulin) magnesium oxide 400 mg PO DAILY 07/14/25 07/14/25 History ondansetron 4 mg disintegrating 4 mg PO Q8H PRN NAUSEA/VOMITING 07/14/25 07/14/25 History tablet warfarin 3 mg tablet 3 mg PO .DAILY @1600 07/14/25 07/14/25 History Patient History Medical History Hypomagnesemia Acute dehydration DKA (diabetic ketoacidosis) DKA (diabetic ketoacidosis) Diabetes Non-ischemic cardiomyopathy denies Pleural effusion current problem "hear failure causes directly" - monitored by pcp. Denies change from baseline. Right bundle branch block pt doesn't know, reports: "not right now " when asked about hx of irregular heart beats. GERD (gastroesophageal reflux disease) pt not sure Hyperlipidemia HTN (hypertension) Poor historian History of renal failure yrs and yrs ago, pt doesn't know details surrounding. History of chest pain (05/2024) May 2024 pt reports felt like heart failure, not dx with anything. Admitted April or May 2024 [facility] for dka ?. Pt poor historian. No re occurence of chest pain. History of congestive heart failure dx age 3 following heart sx. "doesn't ever go away" - monitored by pcp. History of DVT (deep vein thrombosis) early 2023. History of pulmonary embolism 04/2022 History of diabetic ketoacidosis April or May 2024 - [place]. Pt poor historian. 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 Aunt Cardiac disorder Other No family history of adverse response to anesthesia Denies family history of Ovarian cancer Prostate cancer Myocardial infarction Breast cancer Colorectal cancer Social History Smoking Status: Former smoker Age Started Using Tobacco: 16; Age Quit Using Tobacco: 26; packs per day: 0.5; Smoking End Date: 20 years ago; Second Hand Exposure: No; Do You Dip or Chew Tobacco: No; Hx Alcohol Use: No Hx Substance Use: No Preferred Language: Vietnamese Communication Ability: Effective Communication Ability Comment: poor historian Visual Impairment: No Limitations Hearing Ability: Normal Skein Drier Required: No Beliefs That Will Affect Care: None marital status: Single Current Living Situation: Spouse Current Living Situation Comment: stay with girlfriend current occupational status: employed current occupation: [employer] How many Children do You have: 0 Other Information That Helps Us Care for You: No Feels Safe at Home: Yes Dental Care, Regularly: Yes Physical Activity Frequency: 3-4 Times per Week Assistive Devices: None Review of Systems Review of Systems: Negative except as in HPI. Physical Exam Physical Exam: Physical examination: General: Awake and alert, resting in bed, uncomfortable. HEENT: Normocephalic, atraumatic. Extraocular movements intact. Sclera are nonicteric. No JVD appreciated. Skin: Warm and dry. No rashes appreciated. No jaundice appreciated. Cardiovascular: Sinus tachycardia, no murmurs appreciated on my exam. No significant lower extremity edema. Lungs: Clear bilaterally, no wheezing appreciated. No crackles. Nontachypneic. Resting comfortably on room air. Abdomen: Flat, generalized tenderness. Musculoskeletal: Normal muscle mass and tone. No gross joint deformity abnormalities. No effusions appreciated. Neurologic: Awake and alert, oriented. CN II through XII are grossly intact. Speech is fluent. Nonfocal exam. Psychiatric: Appropriate cooperative during my exam. Results & Data Results & Data Vital Signs (Past 12 Hours) Vital Signs Temp Pulse Pulse Resp BP BP Pulse Ox 08/05/25 12:38 135/100 08/05/25 12:23 91/55 L 08/05/25 11:30 08/05/25 11:30 127 H 22 98 08/05/25 11:01 130/94 08/05/25 11:00 128 H 22 83 L 08/05/25 10:55 144/84 H 08/05/25 10:49 36.6 C 135 H 18 144/84 H 98 O2 Del Method 08/05/25 12:38 08/05/25 12:23 08/05/25 11:30 Room Air 08/05/25 11:30 08/05/25 11:01 08/05/25 11:00 08/05/25 10:55 08/05/25 10:49 Room Air Coding Level of Care Code 22720 CRITICAL CARE 1ST 30-74M Diagnoses Diabetic keto-acidosis E11.10 BONILLA (acute kidney injury) N17.9 Lactic acid acidosis E87.20 Hypokalemia E87.6
[2025-08-05] MEDS ORDERED: GLUCOSE 10 TAB/TUBE PO PRN (13:45)
[2025-08-05] MEDS ORDERED: GLUCOSE 40% GEL 15 GM TUBE PO PRN (13:45)
[2025-08-05] MEDS ORDERED: GLUCAGON FOR INJ 1 MG VIAL SQ PRN (13:45)
[2025-08-05] MEDS ORDERED: DEXTROSE 50% 50 ML SYRINGE IV PRN (13:45)
[2025-08-05] MEDS ORDERED: CARBOHYDRATES FOR HYPOGLYCEMIA PO PRN (13:45)
[2025-08-05] MEDS: INSULIN ASPART PER UNIT CHARGE SC ONE ×4 (13:49→20:41)
[2025-08-05] MEDS: METOPROLOL SUCC 25MG EXT REL TAB PO SCH (13:50)
--- NOTE | 2025-08-05 14:11 | Pharmacy Report ---
Pharmacy Glycemic Short Note 2 - Date of Service August 05, 2025 - Glycemic Short BSG Results (Last 24 hours): 08/05/25 11:12 POC Glucose 559 H* OUTPATIENT ANTIDIABETIC REGIMEN: * jardiance 10 mg daily, lantus 20 units daily, humalog 6 units tidm + SSI ASSESSMENT: * 45 year old transferred from OSH with DKA. PMHx significant for DM2, gastroparesis, CHF, GERD. Per provider, K at outside hospital was only 2.3 - insulin drip held upon transfer. Did not receive any potassium replacement prior to transfer. Discussed with provider and plan to hold insulin infusion until K level increases, ideally K>3.3 before starting insulin infusion. Awaiting repeat labs. IV KCL ordered. * BSG >500 mg/dL - will initiate SQ insulin ~0.2 units/kg x 1 and recheck blood sugar again in 2 hours to reassess. PLAN FOR INPATIENT GLYCEMIC CONTROL: * Hold outpatient oral diabetes medications * Basal insulin * Lantus - hold * Bolus insulin * Will plan to utilize SQ novolog insulin for DKA until K level >3.3. Will give novolog SQ 0.2 units/kg Q2 hr until BSG <250 and then consider 0.1 units/kg Q2 hr thereafter if K level still low * Plan to start insulin infusion when K level >3.3 * Repeat K 5.0 - however spoke with RN and concerns for lab drawn via line K riders were infusing therefore leyla repeat lab ordered * Passed along consult to 2nd shift to follow up
[2025-08-05 14:31] LABS: Amylase 38.0 U/L (25-115); Anion Gap 29.0 (3-11); Blood Urea Nitrogen 55.0 mg/dl (6-23); Calcium 7.5 mg/dl (8.6-10.3); Carbon Dioxide 13.0 mmol/L (21-32); Chloride 84.0 mmol/L (98-107); Creatinine Clr Calc Pharmacy 66.9 ml/min; Glucose 495.0 mg/dl (70-99(Fasting)); Lipase 55.0 U/L (11-82); Magnesium 2.1 mg/dl (1.7-2.4); Potassium 5.0 mmol/L (3.5-5.1); Sodium 126.0 mmol/L (136-145)
[2025-08-05] MEDS: POTASSIUM CHLORIDE 20 MEQ in SODIUM CHLORIDE 0.9% 1,000 ML IV SCH (16:17)
[2025-08-05 16:28] LABS: Anion Gap 23.0 (3-11); Blood Urea Nitrogen 52.0 mg/dl (6-23); Calcium 7.8 mg/dl (8.6-10.3); Carbon Dioxide 18.0 mmol/L (21-32); Chloride 85.0 mmol/L (98-107); Creatinine Clr Calc Pharmacy 74.3 ml/min; Glucose 364.0 mg/dl (70-99(Fasting)); Magnesium 1.9 mg/dl (1.7-2.4); Potassium 2.6 mmol/L (3.5-5.1); Sodium 126.0 mmol/L (136-145)
[2025-08-05] MEDS ORDERED: INSULIN ASPART PER UNIT CHARGE SC SCH (16:30)
[2025-08-05] MEDS ORDERED: POTASSIUM PHOS 3 MMOL/1 ML INFUSION IV STA (16:35)
[2025-08-05 16:36] LABS: INR 3.4 (0.9-1.1); Prothrombin Time 33.9 Seconds (9.0-12.0)
[2025-08-05] MEDS: INSULIN ASPART PER UNIT CHARGE SC SCH ×2 (16:36→23:10)
[2025-08-05] MEDS: POTASSIUM PHOSPHATE 24 MMOL in SODIUM CHLORIDE 0.9% 500 ML IV ONE (18:52)
[2025-08-05] MEDS: DKA GOAL RANGE 150-250 mg/dl ONE (20:09)
[2025-08-05] MEDS: POTASSIUM CHLORIDE 40 MEQ in D5W AND 1/2NSS 1,000 ML IV SCH (20:09)
[2025-08-05] MEDS: WARFARIN SOD 1 MG TAB PO ONE (20:10)
[2025-08-05] MEDS: WARFARIN SOD 0.5 MG TAB PO ONE (20:10)
[2025-08-05 21:23] LABS: Anion Gap 12.0 (3-11); Blood Urea Nitrogen 43.0 mg/dl (6-23); Calcium 8.3 mg/dl (8.6-10.3); Carbon Dioxide 28.0 mmol/L (21-32); Chloride 90.0 mmol/L (98-107); Creatinine Clr Calc Pharmacy 83.6 ml/min; Glucose 147.0 mg/dl (70-99(Fasting)); Potassium 2.7 mmol/L (3.5-5.1); Sodium 130.0 mmol/L (136-145)
[2025-08-05 21:29] LABS: Magnesium 1.9 mg/dl (1.7-2.4)
[2025-08-05] MEDS: POTASSIUM CHLORIDE CRTAB 20 MEQ TABCR PO STA (21:38)
[2025-08-05] MEDS ORDERED: POTASSIUM CHLORIDE 40 MEQ in D5W AND 1/2NSS 1,000 ML IV SCH (21:45)
[2025-08-05] MEDS: POTASSIUM CHLORIDE CRTAB 20 MEQ TABCR PO SCH (21:56)
[2025-08-06 02:11] LABS: Anion Gap 9.0 (3-11); Blood Urea Nitrogen 33.0 mg/dl (6-23); Calcium 7.9 mg/dl (8.6-10.3); Carbon Dioxide 26.0 mmol/L (21-32); Chloride 94.0 mmol/L (98-107); Creatinine Clr Calc Pharmacy 107.1 ml/min; Glucose 164.0 mg/dl (70-99(Fasting)); Magnesium 1.8 mg/dl (1.7-2.4); Potassium 3.6 mmol/L (3.5-5.1); Sodium 129.0 mmol/L (136-145)
[2025-08-06] MEDS: INSULIN ASPART PER UNIT CHARGE SC SCH ×2 (04:02→11:32)
[2025-08-06] MEDS: LANTUS PER UNIT CHARGE SC ONE (04:04)
[2025-08-06 05:05] LABS: Hematocrit (blood only) 27.8 % (42.0-52.0); Hemoglobin 10.1 g/dl (14.0-18.0); Immature Granulocytes # (auto) 0.07 K/uL (0.01-0.20); Immature Granulocytes % (auto) 0.6 %; Mean Corpuscular Hemoglobin 28.5 pg (25.0-34.0); Mean Corpuscular Volume 78.3 fL (80.0-100.0); Platelet Count 135 K/uL (130-400); RDW Standard Deviation 32.2 fL (36.4-46.3); Red Blood Count 3.55 M/uL (4.70-6.10); White Blood Count 11.23 K/ul (4.8-10.8)
[2025-08-06 05:22] LABS: Anion Gap 11.0 (3-11); Blood Urea Nitrogen 27.0 mg/dl (6-23); Calcium 7.6 mg/dl (8.6-10.3); Carbon Dioxide 25.0 mmol/L (21-32); Chloride 93.0 mmol/L (98-107); Creatinine Clr Calc Pharmacy 123.5 ml/min; Glucose 242.0 mg/dl (70-99(Fasting)); Potassium 3.2 mmol/L (3.5-5.1); Sodium 129.0 mmol/L (136-145)
[2025-08-06 05:24] LABS: Cholesterol 131.0 mg/dl (0-200); HDL Cholesterol 36.0 mg/dl; Magnesium 1.8 mg/dl (1.7-2.4); Triglycerides 211.0 mg/dl (0-150)
[2025-08-06 05:35] LABS: INR 3.6 (0.9-1.1); Prothrombin Time 35.0 Seconds (9.0-12.0)
[2025-08-06] MEDS ORDERED: POTASSIUM PHOS 3 MMOL/1 ML INFUSION IV STA (05:42)
[2025-08-06] MEDS: LACTATED RINGER'S 1,000 ML IV SCH (05:45)
[2025-08-06] MEDS: POTASSIUM PHOSPHATE 21 MMOL in SODIUM CHLORIDE 0.9% 500 ML IV ONE (06:09)
--- NOTE | 2025-08-06 07:01 | Billing Data ---
Date of Service August 05, 2025 Coding Level of Care Code 17659 INT INP/OBS CARE
[2025-08-06 07:08] LABS: Hemoglobin A1C 11.1 % (4.5-5.6)
--- NOTE | 2025-08-06 07:11 | Critical Care Progress Note ---
Date of Service August 06, 2025 Assessment & Plan (1) Diabetic keto-acidosis: (2) BONILLA (acute kidney injury): (3) Lactic acid acidosis: (4) Hypokalemia: Plan Patient is a 45-year-old male who is admitted as a transfer from [facility] emergency department with DKA. He has a known history of diabetes type 2 complicated by gastroparesis, history of congenital heart defect status post repair, congestive heart failure, GERD with esophagitis. Reason Critically Ill: Diabetic ketoacidosis (resolved) Lactic acidosis (resolved) Acute kidney injury (resolved) Hypokalemia Neuro: Neuroexam is normal today. Awake and alert. Less encephalopathic. No issues. Cardiac: INR supratherapeutic, Coumadin on hold. Heart is regular rate and rhythm. Blood pressure acceptable. Respiratory: On room air, denies any recent respiratory illnesses. Has a cough but he says it is chronic. Smokes marijuana daily. GI: Known history of esophagitis and reflux disorder. Generalized abdominal pain consistent with DKA. Nausea and vomiting likely related to DKA also could represent THC hyperemesis syndrome. Has a known history of gastroparesis secondary to his diabetes. I continue pantoprazole. If abdominal pain is not resolving with DKA resolution may need CT imaging of the abdomen. Amylase and lipase are normal. RENAL/LYTES: Patient has acute kidney injury, likely secondary to dehydration. Also severe electrolyte disturbances with hypokalemia and anion gap metabolic acidosis with lactic acidosis. Electrolytes are being replaced. Renal function is normalized with good urine output. : Urinalysis from outside hospital without evidence of UTI. Ketones positive. Loya is out. ENDO: Was DKA, has a history of type 2 diabetes, has not used his insulin in multiple days, has multiple episodes of DKA in the past. Did not require insulin infusion. DKA has resolved. Replace electrolytes aggressively. No need for frequent labs. Obtain A1c. HEME: Significant leukocytosis, likely leukemoid reaction in setting of DKA. ID: Needs blood cultures, viral PCR. Urinalysis was negative at outside hospital. No need to repeat. Received vancomycin and Zosyn at the outside hospital. Feeding: Diabetic diet Fluids: S maintenance fluids Analgesia: None Activity: Bedrest, can ambulate now as tolerated. Thromboprophylaxis: Place SCDs, Coumadin is on hold due to supratherapeutic INR. Ulcer prophylaxis: Continue pantoprazole. Glycemic control: Pharmacy consult, no longer in DKA and no longer on DKA protocol. Indwelling catheters: PIV, Loya catheter out Antibiotics: Received vancomycin and Zosyn at [facility] on 08/05/2025. Plan: Patient can be transferred out of the ICU. DKA has resolved. Would recommend keeping inpatient for now. Would recommend endocrinology consult prior to discharge. I have personally spent 55 minutes of critical care time in the direct management of this patient. This is a life/limb threatening event. This includes time spent evaluating patient, direct bedside care, chart review, placing orders, interpretation of diagnostic studies, discussion with consultants, patient, and family members, as well as other required patient management activities. This time is exclusive of all separately billable procedures, and teaching time and separate from and in addition to any other critical care service time. Admission and Anticipated Discharge Date Admission Date: August 05, 2025 Subjective Past 24-hour events: Patient improved overnight. Was actually not ever started on insulin drip due to the potassium remaining low. Has remained multiple doses of potassium and phosphate replacement. Abdominal pain has much improved. The patient's gap has closed and acidosis has resolved. He was able to eat breakfast this morning and tolerated this well. Rounding: Has slight abdominal pain to palpation however this is much improved compared to yesterday. Resting comfortably on room air. Tolerated breakfast this morning. Intake: 6450 mL Output: 4225 mL Net: Positive 2225 mL Feeding: Diabetic diet IV infusions: Maintenance fluids Indwelling catheters: Peripheral IVs Laboratory: CBC: WBC 11, hemoglobin 10, platelet 135 Chemistry: Sodium 129, potassium 3.2, chloride 93, anion gap 11, creatinine 0.65, glucose 242, phosphorus 1.5 AB.52, bicarb 22 Review of Systems Review of Systems: Negative except as in HPI. Physical Exam Physical Exam: Physical examination: General: Awake and alert, resting in bed, comfortable and not in distress. HEENT: Normocephalic, atraumatic. Extraocular movements intact. Sclera are nonicteric. No JVD appreciated. Skin: Warm and dry. No rashes appreciated. No jaundice appreciated. Cardiovascular: Regular rate and rhythm, no murmurs appreciated on my exam. No significant lower extremity edema. Lungs: Clear bilaterally, no wheezing appreciated. No crackles. Nontachypneic. Resting comfortably on room air. Abdomen: Flat, mild generalized tenderness to palpation. Musculoskeletal: Normal muscle mass and tone. No gross joint deformity abnormalities. No effusions appreciated. Neurologic: Awake and alert, oriented. CN II through XII are grossly intact. Speech is fluent. Nonfocal exam. Psychiatric: Appropriate cooperative during my exam. Results & Data Results & Data Vital Signs (Past 12 Hours) Vital Signs Pulse Resp BP Pulse Ox O2 Del Method 08/06/25 06:12 100 H 11 L 08/06/25 06:00 120/83 08/06/25 05:57 108 H 20 08/06/25 05:00 91 H 16 08/06/25 05:00 119/77 08/06/25 04:00 118/76 08/06/25 04:00 103 H 14 08/06/25 03:15 106 H 14 97 08/06/25 03:00 111/76 08/06/25 02:57 99 H 17 96 08/06/25 02:15 91 H 15 91 08/06/25 02:00 113/74 08/06/25 01:54 107 H 16 96 08/06/25 01:18 98 H 22 97 08/06/25 01:00 101/74 08/06/25 00:30 103 H 6 L 99 08/06/25 00:03 104 H 14 93 08/06/25 00:00 103/67 08/06/25 00:00 103/67 08/06/25 00:00 108 H 08/05/25 23:54 101 H 12 95 08/05/25 23:00 111 H 15 96 08/05/25 23:00 121/84 08/05/25 22:18 110 H 16 96 08/05/25 21:09 106 H 17 96 08/05/25 21:00 130/85 08/05/25 20:54 105 H 17 08/05/25 20:06 112 H 13 98 08/05/25 20:00 108/75 08/05/25 19:57 117 H 18 100 08/05/25 19:45 Room Air Coding Level of Care Code 61020 CRITICAL CARE 1ST 30-74M Diagnoses Diabetic keto-acidosis E11.10 BONILLA (acute kidney injury) N17.9 Lactic acid acidosis E87.20 Hypokalemia E87.6
[2025-08-06] MEDS: PANTOprazole 40 MG/10 ML SYR IV SCH (07:59)
[2025-08-06] MEDS: POTASSIUM CHLORIDE CRTAB 20 MEQ TABCR PO ONE (10:46)
--- NOTE | 2025-08-06 11:53 | Hospitalist Progress Note ---
Date of Service August 06, 2025 Assessment & Plan (1) Hypokalemia: (2) Lactic acid acidosis: (3) Diabetic keto-acidosis: Plan Diabetic ketoacidosis H/O DM II Lactic acidosis likely due to above Acute kidney injury--resolved Dehydration Noncompliance HbA1c 11.1 Continue insulin per protocol Appreciate critical care help Medication compliance counseling Glycemic pharmacist, unit educator consulted Transfer out of ICU today Hypokalemia Hypophosphatemia Replace and monitor Acute metabolic encephalopathy Likely due to DKA ? due to THC/Alcohol use --CT head:Unremarkable noncontrast CT of the brain Mental status seem to be back to baseline Monitor Supratherapeutic INR No acute bleeding issues Coumadin on hold Monitor INR Small right renal cyst Mild splenomegaly Incidental findings on CT abdomen --CT ABD:No sign of appendicitis. Small umbilical hernia containing only fat. Small right renal cyst . 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 Other chronic conditions: History of systolic heart failure Hyperlipidemia Gastroparesis H/O PE Atrial flutter Mood disorder Resume home medications as able DVT Px: INR supratherapeutic CODE STATUS Full code Admission and Anticipated Discharge Date Admission Date: August 05, 2025 Subjective Patient is seen and examined at bedside States having generalized body ache Also reports generalized weakness and feels tired Poor historian Denies any chest pain, shortness of breath, dizziness, nausea, vomiting, abdominal pain Plan to be transferred out of ICU today Review of Systems Review of Systems: All systems reviewed & are unremarkable except as noted in Subjective Physical Exam Physical Exam: Physical Exam: Vitals signs as noted above General Appearance:Moderately built and nourished, no apparent distress Head: normocephalic, Atraumatic Eyes: normal inspection, EOMI Neck: supple, Trachea midline Respiratory/Chest: Normal breath sounds, CTA, No accessory muscle use Cardiovascular: S1, S2, No murmur, Tachycardia Abdomen/GI:Soft, Non tender, Bowel sounds present Extremities/Musculoskeletal:normal inspection, no edema Neurologic/Psych:AAOX3, grossly no focal neurological deficits Skin: normal color, warm Results & Data Results & Data Vital Signs (Past 12 Hours) Vital Signs Pulse Resp BP Pulse Ox O2 Del Method 08/06/25 11:03 89 13 96 08/06/25 11:00 121/82 08/06/25 10:42 97 H 12 08/06/25 10:03 94 H 4 L 08/06/25 10:00 106/75 08/06/25 10:00 106/75 97 08/06/25 09:39 91 H 14 08/06/25 09:03 87 16 08/06/25 09:00 111/78 08/06/25 09:00 11108/06/25 08:48 89 17 96 08/06/25 08:09 94 H 13 08/06/25 08:00 Room Air 08/06/25 08:00 100 H 08/06/25 07:00 102 H 14 95 08/06/25 07:00 115/81 08/06/25 06:12 100 H 11 L 08/06/25 06:00 120/83 08/06/25 05:57 108 H 20 08/06/25 05:00 91 H 16 08/06/25 05:00 119/77 08/06/25 04:00 118/76 08/06/25 04:00 103 H 14 08/06/25 03:15 106 H 14 97 08/06/25 03:00 111/08/06/25 02:57 99 H 17 96 08/06/25 02:15 91 H 15 91 08/06/25 02:00 113/08/06/25 01:54 107 H 16 96 08/06/25 01:18 98 H 22 97 08/06/25 01:00 101/08/06/25 00:30 103 H 6 L 99 08/06/25 00:03 104 H 14 93 08/06/25 00:00 103/67 08/06/25 00:00 10308/06/25 00:00 108 H 08/05/25 23:54 101 H 12 95 Laboratory Results Short CBC 08/06/25 Range/Units 04:50 WBC 11.23 H (4.8-10.8) K/ul Hgb 10.1 L (14.0-18.0) g/dl Hct 27.8 L (42.0-52.0) % Plt Count 135 (130-400) K/uL BMP 08/05/25 08/05/25 08/05/25 13:05 15:45 15:45 Sodium 126 L 126 L Potassium 5.0 2.6 L D Cancelled Chloride 84 L 85 L Carbon Dioxide 13 L 18 L BUN 55 H 52 H Creatinine 1.20 1.08 Glucose 495 H* 364 H* Calcium 7.5 L 7.8 L 08/05/25 08/06/25 08/06/25 20:50 01:01 04:50 Sodium 130 L 129 L 129 L Potassium 2.7 L 3.6 D 3.2 L Chloride 90 L 94 L 93 L Carbon Dioxide 28 26 25 BUN 43 H 33 H 27 H Creatinine 0.96 0.75 0.65 Glucose 147 H 164 H 242 H Calcium 8.3 L 7.9 L 7.6 L
--- NOTE | 2025-08-06 13:48 | Pharmacy Report ---
Pharmacy Glycemic Short Note 2 - Date of Service August 06, 2025 - Glycemic Short BSG Results (Last 24 hours): 08/05/25 08/05/25 08/05/25 13:05 15:45 16:17 Glucose 495 H* 364 H* POC Glucose 360 H* 08/05/25 08/05/25 08/05/25 18:06 19:59 20:50 Glucose 147 H POC Glucose 252 H 179 H 08/05/25 08/06/25 08/06/25 23:04 01:01 01:06 Glucose 164 H POC Glucose 137 H 141 H 08/06/25 08/06/25 08/06/25 02:01 03:59 04:50 Glucose 242 H POC Glucose 157 H 246 H 08/06/25 08/06/25 07:25 10:49 Glucose POC Glucose 240 H 205 H OUTPATIENT ANTIDIABETIC REGIMEN: * jardiance 10 mg daily, lantus 20 units daily, humalog 6 units tidm + SSI HbA1C: 11.1% ASSESSMENT: 08/06: * BSGs 377-443-882-240mg/dL since last evening. Received 43 units of SQ bolus insulin yesterday and 20 units of basal insulin early this AM. * Gap remained closed this AM - continue SQ basal/bolus. Diet ordered. * Continue Lantus 20 units SQ daily for now. Novolog tightened at lunch. 08/05: * 45 year old transferred from OSH with DKA. PMHx significant for DM2, gastroparesis, CHF, GERD. Per provider, K at outside hospital was only 2.3 - insulin drip held upon transfer. Did not receive any potassium replacement prior to transfer. Discussed with provider and plan to hold insulin infusion until K level increases, ideally K>3.3 before starting insulin infusion. Aw aiting repeat labs. IV KCL ordered. * BSG >500 mg/dL - will initiate SQ insulin ~0.2 units/kg x 1 and recheck blood sugar again in 2 hours to reassess. PLAN FOR INPATIENT GLYCEMIC CONTROL: * Hold outpatient oral diabetes medications * Basal insulin * Lantus 20 units SQ daily * Bolus insulin * Novolog per scale ACHS Goal Range: Low 110 mg/dL - High 140 mg/dL Correction Factor: 20 mg/dL/unit, carb ratio: 7gm/unit
[2025-08-06] MEDS: SODIUM CHLORIDE 0.9% 1,000 ML IV SCH (15:27)
[2025-08-06] MEDS: cefTRIAXone SODIUM 2,000 MG/50 ML BAG IV SCH (15:27)
[2025-08-06] MEDS: KETOROLAC TROMETHAMINE 15 MG/ML VIAL IV ONE (18:44)
[2025-08-06] MEDS: MELATONIN 3 MG TAB PO PRN (20:28)
[2025-08-06] MEDS: ACETAMINOPHEN 325 MG TAB PO PRN (20:28)
[2025-08-07] MEDS ORDERED: LANTUS PER UNIT CHARGE SC SCH (06:00)
[2025-08-07 07:29] LABS: INR 1.8 (0.9-1.1); Prothrombin Time 18.1 Seconds (9.0-12.0)
[2025-08-07] MEDS: LANTUS PER UNIT CHARGE SC SCH (09:34)
[2025-08-07] MEDS: THIAMINE HCL 100 MG TAB PO SCH (11:14)
--- NOTE | 2025-08-07 16:06 | Hospitalist Progress Note ---
Date of Service August 07, 2025 Assessment & Plan (1) Hypokalemia: (2) Lactic acid acidosis: (3) Diabetic keto-acidosis: Plan Diabetic ketoacidosis H/O DM II Lactic acidosis likely due to above Acute kidney injury--resolved Dehydration Noncompliance HbA1c 11.1 Continue insulin per protocol Appreciate critical care help Medication compliance counseling Glycemic pharmacist, adult educator consulted Continue insulin per protocol Generalized weakness Physical deconditioning PT OT, fall precaution May need rehab placement Hypokalemia Hypophosphatemia Replace and monitor Acute metabolic encephalopathy Likely due to DKA ? due to THC/Alcohol use --CT head:Unremarkable noncontrast CT of the brain Mental status back to baseline Monitor Supratherapeutic INR--Resolved No acute bleeding issues Monitor INR Small right renal cyst Mild splenomegaly Incidental findings on CT abdomen --CT ABD:No sign of appendicitis. Small umbilical hernia containing only fat. Small right renal cyst . 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 Other chronic conditions: History of systolic heart failure Hyperlipidemia Gastroparesis H/O PE Atrial flutter--continue metoprolol, on Coumadin for anticoagulation Mood disorder Resume home medications as able (patient noncompliant and unable to confirm his home medications) DVT Px: Coumadin CODE STATUS Full code Disposition PT OT prior to discharge Admission and Anticipated Discharge Date Admission Date: August 05, 2025 Subjective Patient is seen and examined at bedside Poor historian Subjectively feels generalized weakness and neck slowly improving Refused physical therapy evaluation this morning No nausea, vomiting today Denies any chest pain, shortness of breath, dizziness, nausea, vomiting, abdominal pain Review of Systems Review of Systems: All systems reviewed & are unremarkable except as noted in Subjective Physical Exam Physical Exam: Physical Exam: Vitals signs as noted above General Appearance:Moderately built and nourished, no apparent distress Head: normocephalic, Atraumatic Eyes: normal inspection, EOMI Neck: supple, Trachea midline Respiratory/Chest: Normal breath sounds, CTA, No accessory muscle use Cardiovascular: S1, S2, No murmur, Tachycardia Abdomen/GI:Soft, Non tender, Bowel sounds present Extremities/Musculoskeletal:normal inspection, no edema Neurologic/Psych:AAOX3, grossly no focal neurological deficits Skin: normal color, warm Results & Data Results & Data Vital Signs (Past 12 Hours) Vital Signs Temp Pulse Pulse Resp BP Pulse Ox O2 Del Method 08/07/25 14:30 106 H 08/07/25 12:30 36.8 C 110 H 18 112/68 97 Room Air 08/07/25 09:00 Room Air 08/07/25 07:35 102 H 08/07/25 07:00 36.9 C 93 H 18 107/69 98 Room Air
[2025-08-07] MEDS: WARFARIN SOD 3 MG TAB PO SCH (17:43)
[2025-08-07] MEDS: KETOROLAC TROMETHAMINE 15 MG/ML VIAL IV ONE (21:26)
--- NOTE | 2025-08-08 04:04 | Communication Note ---
Date of Service: August 08, 2025 Patient noted to be diaphoretic and shaking as per RN. AWSS of 7. AP Alcohol withdrawal Gabapentin taper/Ativan as needed protocol (Phenobarbital protocol precluded by potential Coumadin interaction)
[2025-08-08] MEDS ORDERED: GABAPENTIN 1200MG ALCOHOL WITHDRAWAL LOAD PO STA (04:13)
[2025-08-08] MEDS ORDERED: LORazepam Inj 3 MG in SYRINGE 1.5 ML IV PRN (04:13)
[2025-08-08] MEDS ORDERED: LORazepam Inj 2 MG in SYRINGE 1 ML IV PRN (04:13)
[2025-08-08] MEDS: GABAPENTIN 600 MG TAB PO ONE (05:01)
[2025-08-08] MEDS: LORazepam Inj 1 MG in SYRINGE 0.5 ML IV PRN (05:21)
[2025-08-08 06:42] LABS: Hematocrit (blood only) 24.7 % (42.0-52.0); Hemoglobin 8.6 g/dl (14.0-18.0); Mean Corpuscular Hemoglobin 28.5 pg (25.0-34.0); Mean Corpuscular Volume 81.8 fL (80.0-100.0); Platelet Count 119 K/uL (130-400); RDW Standard Deviation 34.0 fL (36.4-46.3); Red Blood Count 3.02 M/uL (4.70-6.10); White Blood Count 5.03 K/ul (4.8-10.8)
[2025-08-08 07:07] LABS: Anion Gap 10.0 (3-11); Blood Urea Nitrogen 12.0 mg/dl (6-23); Calcium 8.2 mg/dl (8.6-10.3); Carbon Dioxide 29.0 mmol/L (21-32); Chloride 98.0 mmol/L (98-107); Creatinine Clr Calc Pharmacy 140.9 ml/min; Glucose 194.0 mg/dl (70-99(Fasting)); Magnesium 1.6 mg/dl (1.7-2.4); Potassium 2.9 mmol/L (3.5-5.1); Sodium 137.0 mmol/L (136-145)
[2025-08-08 07:20] LABS: INR 1.1 (0.9-1.1); Prothrombin Time 11.7 Seconds (9.0-12.0)
[2025-08-08] MEDS: POTASSIUM CHLORIDE / WTR 10 MEQ/100 ML PLCT IV SCH (08:14)
[2025-08-08] MEDS: MAGNESIUM SULFATE / D5W 1 GM/100 ML BAG IV ONE (08:15)
[2025-08-08] MEDS: SODIUM CHLORIDE 0.9% 500 ML IV ONE (08:15)
[2025-08-08] MEDS: POTASSIUM CHLORIDE 10 MEQ TABCR PO SCH (08:32)
[2025-08-08] MEDS: FOLIC ACID 1 MG TAB PO SCH (08:33)
[2025-08-08] MEDS: MULTIVITAMIN TAB PO SCH (08:33)
[2025-08-08 09:59] LABS: Anion Gap 7.0 (3-11); Blood Urea Nitrogen 11.0 mg/dl (6-23); Calcium 8.5 mg/dl (8.6-10.3); Carbon Dioxide 32.0 mmol/L (21-32); Chloride 97.0 mmol/L (98-107); Creatinine Clr Calc Pharmacy 129.5 ml/min; Glucose 243.0 mg/dl (70-99(Fasting)); Potassium 2.9 mmol/L (3.5-5.1); Sodium 136.0 mmol/L (136-145)
[2025-08-08] MEDS: GABAPENTIN 600 MG TAB PO SCH (11:15)
--- NOTE | 2025-08-08 14:38 | Pharmacy Report ---
Pharmacy Glycemic Short Note 2 - Date of Service August 08, 2025 - Glycemic Short BSG Results (Last 24 hours): 08/07/25 08/07/25 08/08/25 16:14 20:05 05:58 Glucose 194 H POC Glucose 111 H 200 H 08/08/25 08/08/25 08/08/25 07:30 09:23 11:12 Glucose 243 H POC Glucose 201 H 261 H OUTPATIENT ANTIDIABETIC REGIMEN: * jardiance 10 mg daily, lantus 20 units daily, humalog 6 units tidm + SSI HbA1C: 11.1% ASSESSMENT: 08/08: * Patient received total of 40 units of insulin yesterday, of which 20 units were basal * Fasting BSG 194 mg/dL - will plan to titrate up basal further tomorrow AM * Will adjust CF/CR slightly 08/06: * BSGs 953-206-678-240mg/dL since last evening. Received 43 units of SQ bolus insulin yesterday and 20 units of basal insulin early this AM. * Gap remained closed this AM - continue SQ basal/bolus. Diet ordered. * Continue Lantus 20 units SQ daily for now. Novolog tightened at lunch. 08/05: * 45 year old transferred from OSH with DKA. PMHx significant for DM2, gastroparesis, CHF, GERD. Per provider, K at outside hospital was only 2.3 - insulin drip held upon transfer. Did not receive any potassium replacement prior to transfer. Discussed with provider and plan to hold insulin infusion until K level increases, ideally K>3.3 before starting insulin infusion. Awaiting repeat labs. IV KCL ordered. * BSG >500 mg/dL - will initiate SQ insulin ~0.2 units/kg x 1 and recheck blood sugar again in 2 hours to reassess. PLAN FOR INPATIENT GLYCEMIC CONTROL: * Hold outpatient oral diabetes medications * Basal insulin * Lantus 24 units SQ daily * Bolus insulin * Novolog per scale ACHS Goal Range: Low 110 mg/dL - High 140 mg/dL Correction Factor: 25 mg/dL/unit, carb ratio: 9 gm/unit
--- NOTE | 2025-08-08 15:10 | Hospitalist Progress Note ---
Date of Service August 08, 2025 Assessment & Plan (1) Hypokalemia: (2) Lactic acid acidosis: (3) Diabetic keto-acidosis: Plan Diabetic ketoacidosis H/O DM II Lactic acidosis likely due to above Acute kidney injury--resolved Dehydration Noncompliance HbA1c 11.1 Continue insulin per protocol Appreciate critical care help Medication compliance counseling Glycemic pharmacist, biological technician consulted Continue insulin per protocol IV fluids as needed Generalized weakness Physical deconditioning PT OT, fall precaution PT recommends rehab Hypokalemia Hypophosphatemia Hypomagnesemia Replace and monitor Acute metabolic encephalopathy--resolved Likely due to DKA ? due to THC/Alcohol use --CT head:Unremarkable noncontrast CT of the brain Mental status back to baseline Monitor Supratherapeutic INR--Resolved No acute bleeding issues Monitor INR Suspected alcohol withdrawal On gabapentin protocol Continue thiamine Monitor Abnormal blood cultures--likely contamination 1/4 blood cultures from prior hospital grew coagulase-negative staph Blood cultures: Negative to date IV Rocephin discontinue Small right renal cyst Mild splenomegaly Incidental findings on CT abdomen --CT ABD:No sign of appendicitis. Small umbilical hernia containing only fat. Small right renal cyst . 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 Other chronic conditions: History of systolic heart failure Hyperlipidemia Gastroparesis H/O PE Atrial flutter--continue metoprolol, on Coumadin for anticoagulation Mood disorder Continue home medications as able DVT Px: Coumadin CODE STATUS Full code Disposition Rehab as able Admission and Anticipated Discharge Date Admission Date: August 05, 2025 Subjective Patient is seen and examined at bedside States having generalized weakness and feels tired No new complaints Denies any chest pain, shortness of breath, dizziness, nausea, vomiting, abdominal pain Was started on gabapentin protocol overnight for suspected alcohol withdrawal Review of Systems Review of Systems: All systems reviewed & are unremarkable except as noted in Subjective Physical Exam Physical Exam: Physical Exam: Vitals signs as noted above General Appearance:Moderately built and nourished, no apparent distress Head: normocephalic, Atraumatic Eyes: normal inspection, EOMI Neck: supple, Trachea midline Respiratory/Chest: Normal breath sounds, CTA, No accessory muscle use Cardiovascular: S1, S2, No murmur, Tachycardia Abdomen/GI:Soft, Non tender, Bowel sounds present Extremities/Musculoskeletal:normal inspection, no edema Neurologic/Psych:AAOX3, grossly no focal neurological deficits Skin: normal color, warm Results & Data Results & Data Vital Signs (Past 12 Hours) Vital Signs Temp Pulse Pulse Resp BP Pulse Ox O2 Del Method 08/08/25 13:23 109 H 08/08/25 11:13 36.9 C 86 20 98/60 L 96 Room Air 08/08/25 08:00 89 08/08/25 07:28 36.4 C L 88 20 112/72 96 Room Air 08/08/25 04:54 36.9 C 88 18 117/71 96 Room Air Laboratory Results Short CBC 08/08/25 Range/Units 05:58 WBC 5.03 (4.8-10.8) K/ul Hgb 8.6 L (14.0-18.0) g/dl Hct 24.7 L (42.0-52.0) % Plt Count 119 L (130-400) K/uL BMP 08/08/25 08/08/25 05:58 09:23 Sodium 137 136 Potassium 2.9 L 2.9 L Chloride 98 97 L Carbon Dioxide 29 32 BUN 12 11 Creatinine 0.57 L 0.62 Glucose 194 H 243 H Calcium 8.2 L 8.5 L
[2025-08-08] MEDS: MAGNESIUM CHLORIDE W/CALCIUM 64MG DELAYED REL TAB PO SCH (20:55)
[2025-08-09] MEDS: GABAPENTIN 600 MG TAB PO SCH (00:02)
[2025-08-09 06:02] LABS: Hematocrit (blood only) 28.5 % (42.0-52.0); Hemoglobin 9.8 g/dl (14.0-18.0); Mean Corpuscular Hemoglobin 28.9 pg (25.0-34.0); Mean Corpuscular Volume 84.1 fL (80.0-100.0); Platelet Count 173 K/uL (130-400); RDW Standard Deviation 36.6 fL (36.4-46.3); Red Blood Count 3.39 M/uL (4.70-6.10); White Blood Count 5.64 K/ul (4.8-10.8)
[2025-08-09 06:17] LABS: Anion Gap 8.0 (3-11); Blood Urea Nitrogen 10.0 mg/dl (6-23); Calcium 8.4 mg/dl (8.6-10.3); Carbon Dioxide 28.0 mmol/L (21-32); Chloride 103.0 mmol/L (98-107); Creatinine Clr Calc Pharmacy 121.3 ml/min; Glucose 233.0 mg/dl (70-99(Fasting)); Iron 11.0 mcg/dl (35-175); Potassium 3.4 mmol/L (3.5-5.1); Sodium 139.0 mmol/L (136-145); Transferrin 128.0 mg/dl (200-360)
[2025-08-09 06:37] LABS: Ferritin 174.8 ng/ml (8-388)
[2025-08-09 06:41] LABS: INR 1.1 (0.9-1.1); Prothrombin Time 11.6 Seconds (9.0-12.0)
[2025-08-09 06:44] LABS: Folate (Folic Acid),Ser orPlas 12.62 ng/ml (>5.38)
[2025-08-09 06:45] LABS: Vitamin B12 557.0 pg/ml (180-914)
[2025-08-09] MEDS: LANTUS PER UNIT CHARGE SC SCH (08:07)
[2025-08-09] MEDS: POTASSIUM CHLORIDE 10 MEQ TABCR PO ONE (10:38)
[2025-08-09] MEDS: IRON SUCROSE 300 MG in SODIUM CHLORIDE 0.9% 250 ML IV ONE (10:38)
[2025-08-09] MEDS: WARFARIN SOD 5 MG TAB PO SCH (16:20)
--- NOTE | 2025-08-09 16:27 | Hospitalist Progress Note ---
Date of Service August 09, 2025 Assessment & Plan (1) Hypokalemia: (2) Lactic acid acidosis: (3) Diabetic keto-acidosis: Plan Diabetic ketoacidosis H/O DM II Lactic acidosis likely due to above Acute kidney injury--resolved Dehydration Noncompliance HbA1c 11.1 Continue insulin per protocol Appreciate critical care help Medication compliance counseling Glycemic pharmacist, special education paraeducator consulted Continue insulin per protocol IV fluids as needed Will transfer out of PCU today Will need rehab placement Generalized weakness Physical deconditioning PT OT, fall precaution PT recommends rehab Hypokalemia Hypophosphatemia Hypomagnesemia Replace and monitor Acute metabolic encephalopathy--resolved Likely due to DKA ? due to THC/Alcohol use --CT head:Unremarkable noncontrast CT of the brain Mental status back to baseline Monitor Supratherapeutic INR--Resolved No acute bleeding issues Monitor INR Atrial flutter H/O PE --continue metoprolol INR subtherapeutic currently Will increase Coumadin to 5 mg today Monitor INR Iron deficiency anemia Will give IV Venofer today Plan to start on oral supplements as able Suspected alcohol withdrawal On gabapentin protocol Continue thiamine Monitor Abnormal blood cultures--likely contamination 1/4 blood cultures from prior hospital grew coagulase-negative staph Blood cultures: Negative to date IV Rocephin discontinued Small right renal cyst Mild splenomegaly Incidental findings on CT abdomen --CT ABD:No sign of appendicitis. Small umbilical hernia containing only fat. Small right renal cyst . 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: History of systolic heart failure Hyperlipidemia Gastroparesis Mood disorder Continue home medications as able DVT Px: Coumadin CODE STATUS Full code Disposition Rehab when accepted Admission and Anticipated Discharge Date Admission Date: August 05, 2025 Subjective Patient is seen and examined at bedside Reports generalized weakness No other complaints today Denies any chest pain, shortness of breath, dizziness, nausea, vomiting, abdominal pain Review of Systems Review of Systems: All systems reviewed & are unremarkable except as noted in Subjective Physical Exam Physical Exam: Physical Exam: Vitals signs as noted above General Appearance:Moderately built and nourished, no apparent distress Head: normocephalic, Atraumatic Eyes: normal inspection, EOMI Neck: supple, Trachea midline Respiratory/Chest: Normal breath sounds, CTA, No accessory muscle use Cardiovascular: S1, S2, No murmur, Tachycardia Abdomen/GI:Soft, Non tender, Bowel sounds present Extremities/Musculoskeletal:normal inspection, no edema Neurologic/Psych:AAOX3, grossly no focal neurological deficits Skin: normal color, warm Results & Data Results & Data Vital Signs (Past 12 Hours) Vital Signs Temp Pulse Pulse Resp BP BP Pulse Ox 08/09/25 11:28 36.8 C 95 H 18 107/71 98 08/09/25 09:00 89 08/09/25 08:04 36.6 C 99 H 21 114/79 98 08/09/25 07:45 O2 Del Method 08/09/25 11:28 Room Air 08/09/25 09:00 08/09/25 08:04 Room Air 08/09/25 07:45 Room Air Laboratory Results Short CBC 08/09/25 Range/Units 05:35 WBC 5.64 (4.8-10.8) K/ul Hgb 9.8 L (14.0-18.0) g/dl Hct 28.5 L (42.0-52.0) % Plt Count 173 (130-400) K/uL BMP 08/09/25 05:35 Sodium 139 Potassium 3.4 L Chloride 103 Carbon Dioxide 28 BUN 10 Creatinine 0.73 Glucose 233 H Calcium 8.4 L
[2025-08-10] MEDS: GABAPENTIN 600 MG TAB PO SCH (03:29)
[2025-08-10 08:03] LABS: Anion Gap 5.0 (3-11); Blood Urea Nitrogen 8.0 mg/dl (6-23); Calcium 8.1 mg/dl (8.6-10.3); Carbon Dioxide 28.0 mmol/L (21-32); Chloride 105.0 mmol/L (98-107); Creatinine Clr Calc Pharmacy 147.3 ml/min; Glucose 216.0 mg/dl (70-99(Fasting)); Magnesium 1.6 mg/dl (1.7-2.4); Potassium 3.5 mmol/L (3.5-5.1); Sodium 138.0 mmol/L (136-145)
[2025-08-10 08:15] LABS: INR 1.3 (0.9-1.1); Prothrombin Time 13.3 Seconds (9.0-12.0)
[2025-08-10] MEDS: IRON SUCROSE 300 MG in SODIUM CHLORIDE 0.9% 250 ML IV ONE (09:41)
[2025-08-10] MEDS: MAGNESIUM SULFATE / D5W 1 GM/100 ML BAG IV ONE (09:41)
--- NOTE | 2025-08-10 13:09 | Hospitalist Progress Note ---
Date of Service August 10, 2025 Assessment & Plan (1) Hypokalemia: (2) Lactic acid acidosis: (3) Diabetic keto-acidosis: Plan Diabetic ketoacidosis H/O DM II Lactic acidosis likely due to above Acute kidney injury--resolved Dehydration Noncompliance HbA1c 11.1 Continue insulin per protocol Appreciate critical care help Medication compliance counseling Glycemic pharmacist, hygiene coordinator consulted Continue insulin per protocol Received IV fluid Stable for discharge, waiting for placement Case management to help with discharge planning Generalized weakness Physical deconditioning PT OT, fall precaution PT recommends rehab Hypokalemia Hypophosphatemia Hypomagnesemia Replace and monitor Acute metabolic encephalopathy--resolved Likely due to DKA ? due to THC/Alcohol use --CT head:Unremarkable noncontrast CT of the brain Mental status back to baseline Monitor Supratherapeutic INR--Resolved No acute bleeding issues Monitor INR Atrial flutter H/O PE --continue metoprolol INR 1.3 today Continue Coumadin 5 mg today Monitor INR Iron deficiency anemia IV Venofer today Start on oral iron supplements tomorrow Suspected alcohol withdrawal On gabapentin protocol Continue thiamine Monitor Abnormal blood cultures--likely contamination 1/4 blood cultures from prior hospital grew coagulase-negative staph Blood cultures: Negative to date IV Rocephin discontinued Small right renal cyst Mild splenomegaly Incidental findings on CT abdomen --CT ABD:No sign of appendicitis. Small umbilical hernia containing only fat. Small right renal cyst . 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: History of systolic heart failure Hyperlipidemia Gastroparesis Mood disorder Continue home medications as able DVT Px: Coumadin CODE STATUS Full code Disposition Rehab when accepted Admission and Anticipated Discharge Date Admission Date: August 05, 2025 Subjective Patient is seen and examined at bedside No new complaints Denies any chest pain, shortness of breath, dizziness, nausea, vomiting, abdominal pain Waiting for rehab placement Review of Systems Review of Systems: All systems reviewed & are unremarkable except as noted in Subjective Physical Exam Physical Exam: Physical Exam: Vitals signs as noted above General Appearance:Moderately built and nourished, no apparent distress Head: normocephalic, Atraumatic Eyes: normal inspection, EOMI Neck: supple, Trachea midline Respiratory/Chest: Normal breath sounds, CTA, No accessory muscle use Cardiovascular: S1, S2, No murmur, Tachycardia Abdomen/GI:Soft, Non tender, Bowel sounds present Extremities/Musculoskeletal:normal inspection, no edema Neurologic/Psych:AAOX3, grossly no focal neurological deficits Skin: normal color, warm Results & Data Results & Data Vital Signs (Past 12 Hours) Vital Signs Temp Pulse Pulse Resp BP Pulse Ox O2 Del Method 08/10/25 12:06 36.9 C 95 H 18 134/82 97 Room Air 08/10/25 08:00 Room Air 08/10/25 07:47 36.7 C 91 H 19 112/75 94 Room Air 08/10/25 05:14 90 08/10/25 03:26 36.6 C 82 14 109/71 97 Room Air Laboratory Results [facility] 08/10/25 07:09 Sodium 138 Potassium 3.5 Chloride 105 Carbon Dioxide 28 BUN 8 Creatinine 0.60 Glucose 216 H Calcium 8.1 L
[2025-08-11] MEDS: INSULIN ASPART PER UNIT CHARGE SC SCH ×2 (08:21→12:45)
[2025-08-11 08:23] LABS: INR 1.7 (0.9-1.1); Prothrombin Time 17.2 Seconds (9.0-12.0)
[2025-08-11] MEDS: FERROUS SULFATE 325 MG TAB PO SCH (08:27)
--- NOTE | 2025-08-11 08:36 | Pharmacy Report ---
Pharmacy Glycemic Short Note 2 - Date of Service August 11, 2025 - Glycemic Short BSG Results (Last 24 hours): 08/10/25 08/10/25 08/10/25 11:36 16:41 20:11 POC Glucose 163 H 178 H 174 H 08/11/25 07:36 POC Glucose 193 H OUTPATIENT ANTIDIABETIC REGIMEN: * jardiance 10 mg daily, lantus 20 units daily, humalog 6 units tidm + SSI HbA1C: 11.1% ASSESSMENT: 08/11: * Patient received total of 50 units of insulin yesterday, of which 24 units were basal insulin * Fasting BSG 193 mg/dL - may consider increasing basal slightly tomorrow if still >180 * Will trial novolog with tighter parameters at breakfast and looser rest of day 08/08: * Patient received total of 40 units of insulin yesterday, of which 20 units were basal * Fasting BSG 194 mg/dL - will plan to titrate up basal further tomorrow AM * Will adjust CF/CR slightly 08/06: * BSGs 760-141-207-240mg/dL since last evening. Received 43 units of SQ bolus insulin yesterday and 20 units of basal insulin early this AM. * Gap remained closed this AM - continue SQ basal/bolus. Diet ordered. * Continue Lantus 20 units SQ daily for now. Novolog tightened at lunch. 08/05: * 45 year old transferred from OSH with DKA. PMHx significant for DM2, gastroparesis, CHF, GERD. Per provider, K at outside hospital was only 2.3 - insulin drip held upon transfer. Did not receive any potassium replacement prior to transfer. Discussed with provider and plan to hold insulin infusion until K level increases, ideally K>3.3 before starting insulin infusion. Awaiting repeat labs. IV KCL ordered. * BSG >500 mg/dL - will initiate SQ insulin ~0.2 units/kg x 1 and recheck blood sugar again in 2 hours to reassess. PLAN FOR INPATIENT GLYCEMIC CONTROL: * Hold outpatient oral diabetes medications * Basal insulin * Lantus 24 units SQ daily * Bolus insulin * Novolog per scale ACHS Goal Range: Low 110 mg/dL - High 140 mg/dL Correction Factor: 30 mg/dL/unit, carb ratio: 11 gm/unit (* breakfast correction factor 20 / carb ratio of 7)
--- NOTE | 2025-08-11 13:00 | Hospitalist Progress Note ---
Date of Service August 11, 2025 Assessment & Plan (1) Hypokalemia: (2) Lactic acid acidosis: (3) Diabetic keto-acidosis: Plan Diabetic ketoacidosis H/O DM II Lactic acidosis likely due to above Acute kidney injury--resolved Dehydration Noncompliance HbA1c 11.1 Continue insulin per protocol Appreciate critical care help Medication compliance counseling Glycemic pharmacist, natural resources extension educator consulted Continue insulin per protocol Received IV fluid Waiting for placement Generalized weakness Physical deconditioning PT OT, fall precaution PT recommends rehab Hypokalemia Hypophosphatemia Hypomagnesemia Replace and monitor Will recheck blood work tomorrow Acute metabolic encephalopathy--resolved Likely due to DKA ? due to THC/Alcohol use --CT head:Unremarkable noncontrast CT of the brain Mental status back to baseline Monitor Supratherapeutic INR--Resolved No acute bleeding issues Monitor INR Atrial flutter H/O PE --continue metoprolol INR 1.7 today Will give Coumadin 4 mg today Monitor INR Iron deficiency anemia Received IV Venofer X 2 doses Started on oral iron supplements Suspected alcohol withdrawal On gabapentin protocol Continue thiamine Monitor Abnormal blood cultures--likely contamination 1/4 blood cultures from prior hospital grew coagulase-negative staph Blood cultures: Negative to date IV Rocephin discontinued Small right renal cyst Mild splenomegaly Incidental findings on CT abdomen --CT ABD:No sign of appendicitis. Small umbilical hernia containing only fat. Small right renal cyst . Mild splenomegaly Follow-up as outpatient Mild troponin elevation Likely demand ischemia Denies any anginal symptoms Monitor GERD Continue PPI H/O THC/Alcohol use Release Of Information Clerk to quit Other chronic conditions: History of systolic heart failure Hyperlipidemia Gastroparesis Mood disorder Continue home medications as able DVT Px: Coumadin CODE STATUS Full code Disposition Rehab when accepted Admission and Anticipated Discharge Date Admission Date: August 05, 2025 Subjective Patient is seen and examined at bedside States feeling tired Denies any chest pain, shortness of breath, dizziness, nausea, vomiting, abdominal pain Waiting for rehab placement Review of Systems Review of Systems: All systems reviewed & are unremarkable except as noted in Subjective Physical Exam Physical Exam: Physical Exam: Vitals signs as noted above General Appearance:Moderately built and nourished, no apparent distress Head: normocephalic, Atraumatic Eyes: normal inspection, EOMI Neck: supple, Trachea midline Respiratory/Chest: Normal breath sounds, CTA, No accessory muscle use Cardiovascular: S1, S2, No murmur, Tachycardia Abdomen/GI:Soft, Non tender, Bowel sounds present Extremities/Musculoskeletal:normal inspection, no edema Neurologic/Psych:AAOX3, grossly no focal neurological deficits Skin: normal color, warm Results & Data Results & Data Vital Signs (Past 12 Hours) Vital Signs Temp Pulse Resp BP Pulse Ox O2 Del Method 08/11/25 07:50 36.9 C 83 16 123/80 97 Room Air
[2025-08-11] MEDS: GABAPENTIN 600 MG TAB PO SCH (16:10)
[2025-08-11] MEDS: WARFARIN SOD 4 MG TAB PO SCH (16:11)
[2025-08-12 07:01] LABS: Anion Gap 5.0 (3-11); Blood Urea Nitrogen 8.0 mg/dl (6-23); Calcium 8.5 mg/dl (8.6-10.3); Carbon Dioxide 27.0 mmol/L (21-32); Chloride 107.0 mmol/L (98-107); Creatinine Clr Calc Pharmacy 120.2 ml/min; Glucose 271.0 mg/dl (70-99(Fasting)); INR 2.2 (0.9-1.1); Magnesium 1.8 mg/dl (1.7-2.4); Potassium 4.5 mmol/L (3.5-5.1); Prothrombin Time 22.5 Seconds (9.0-12.0); Sodium 139.0 mmol/L (136-145)
--- NOTE | 2025-08-12 14:29 | Hospitalist Progress Note ---
Date of Service August 12, 2025 Assessment & Plan (1) Hypokalemia: (2) Lactic acid acidosis: (3) Diabetic keto-acidosis: Plan Diabetic ketoacidosis H/O DM II Lactic acidosis likely due to above Acute kidney injury--resolved Dehydration Noncompliance HbA1c 11.1 Continue insulin per protocol Appreciate critical care help Medication compliance counseling Glycemic pharmacist, hospice educator consulted Continue insulin per protocol Received IV fluid Stable for discharge, waiting for rehab placement Generalized weakness Physical deconditioning PT OT, fall precaution PT recommends rehab Hypokalemia Hypophosphatemia Hypomagnesemia Replace and monitor Acute metabolic encephalopathy--resolved Likely due to DKA ? due to THC/Alcohol use --CT head:Unremarkable noncontrast CT of the brain Mental status back to baseline Monitor Supratherapeutic INR--Resolved No acute bleeding issues Monitor INR Atrial flutter H/O PE --continue metoprolol INR 2.2 today Will give Coumadin 3 mg today Monitor INR Iron deficiency anemia Received IV Venofer X 2 doses Started on oral iron supplements Suspected alcohol withdrawal On gabapentin protocol Continue thiamine Monitor Abnormal blood cultures--likely contamination 1/4 blood cultures from prior hospital grew coagulase-negative staph Blood cultures: Negative to date IV Rocephin discontinued Small right renal cyst Mild splenomegaly Incidental findings on CT abdomen --CT ABD:No sign of appendicitis. Small umbilical hernia containing only fat. Small right renal cyst . 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 Other chronic conditions: History of systolic heart failure Hyperlipidemia Gastroparesis Mood disorder Continue home medications as able DVT Px: Coumadin CODE STATUS Full code Disposition Rehab when accepted, pending insurance Auth Admission and Anticipated Discharge Date Admission Date: August 05, 2025 Subjective Patient is seen and examined at bedside Offers no new complaints Denies any chest pain, shortness of breath, dizziness, nausea, vomiting, abdominal pain Waiting for rehab placement Review of Systems Review of Systems: All systems reviewed & are unremarkable except as noted in Subjective Physical Exam Physical Exam: Physical Exam: Vitals signs as noted above General Appearance:Moderately built and nourished, no apparent distress Head: normocephalic, Atraumatic Eyes: normal inspection, EOMI Neck: supple, Trachea midline Respiratory/Chest: Normal breath sounds, CTA, No accessory muscle use Cardiovascular: S1, S2, No murmur, Tachycardia Abdomen/GI:Soft, Non tender, Bowel sounds present Extremities/Musculoskeletal:normal inspection, no edema Neurologic/Psych:AAOX3, grossly no focal neurological deficits Skin: normal color, warm Results & Data Results & Data Vital Signs (Past 12 Hours) Vital Signs Temp Pulse Resp BP Pulse Ox O2 Del Method 08/12/25 07:18 36.7 C 91 H 16 108/71 98 Room Air Laboratory Results [facility] 08/12/25 06:09 Sodium 139 Potassium 4.5 D Chloride 107 Carbon Dioxide 27 BUN 8 Creatinine 0.74 Glucose 271 H Calcium 8.5 L
[2025-08-12] MEDS: WARFARIN SOD 3 MG TAB PO SCH (17:18)
[2025-08-13 07:45] VITALS: BP 118/80; PULSE 91; RESP 18; TEMP 98.3; O2SAT 98
[2025-08-13 08:22] LABS: INR 2.3 (0.9-1.1); Prothrombin Time 23.3 Seconds (9.0-12.0)
--- NOTE | 2025-08-13 08:38 | Hospitalist Progress Note ---
Date of Service August 13, 2025 Assessment & Plan (1) Hypokalemia: (2) Lactic acid acidosis: (3) Diabetic keto-acidosis: Plan Diabetic ketoacidosis H/O DM II Lactic acidosis likely due to above Acute kidney injury--resolved Dehydration Noncompliance HbA1c 11.1 Continue insulin per protocol Appreciate critical care help Medication compliance counseling Glycemic pharmacist, assistant health educator consulted Continue insulin per protocol Received IV fluid Plan to discharge to rehab facility today Generalized weakness Physical deconditioning PT OT, fall precaution PT recommends rehab Hypokalemia Hypophosphatemia Hypomagnesemia Replace and monitor Acute metabolic encephalopathy--resolved Likely due to DKA ? due to THC/Alcohol use --CT head:Unremarkable noncontrast CT of the brain Mental status back to baseline Monitor Supratherapeutic INR--Resolved No acute bleeding issues Monitor INR Atrial flutter H/O PE --continue metoprolol INR 2.3 today Continue Coumadin 3 mg daily Monitor INR Iron deficiency anemia Received IV Venofer X 2 doses Started on oral iron supplements Suspected alcohol withdrawal On gabapentin protocol Continue thiamine Monitor Abnormal blood cultures--likely contamination 1/4 blood cultures from prior hospital grew coagulase-negative staph Blood cultures: Negative to date IV Rocephin discontinued Small right renal cyst Mild splenomegaly Incidental findings on CT abdomen --CT ABD:No sign of appendicitis. Small umbilical hernia containing only fat. Small right renal cyst . 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 Other chronic conditions: History of systolic heart failure Hyperlipidemia Gastroparesis Mood disorder Continue home medications as able DVT Px: Coumadin CODE STATUS Full code Disposition Rehab Admission and Anticipated Discharge Date Admission Date: August 05, 2025 Subjective Patient is seen and examined at bedside States feeling well Denies any chest pain, shortness of breath, dizziness, nausea, vomiting, abdominal pain Plan to be discharged to rehab facility today Review of Systems Review of Systems: All systems reviewed & are unremarkable except as noted in Subjective Physical Exam Physical Exam: Physical Exam: Vitals signs as noted above General Appearance:Moderately built and nourished, no apparent distress Head: normocephalic, Atraumatic Eyes: normal inspection, EOMI Neck: supple, Trachea midline Respiratory/Chest: Normal breath sounds, CTA, No accessory muscle use Cardiovascular: S1, S2, No murmur, Tachycardia Abdomen/GI:Soft, Non tender, Bowel sounds present Extremities/Musculoskeletal:normal inspection, no edema Neurologic/Psych:AAOX3, grossly no focal neurological deficits Skin: normal color, warm Results & Data Results & Data Vital Signs (Past 12 Hours) Vital Signs Temp Pulse Resp BP BP Pulse Ox O2 Del Method 08/13/25 07:44 36.8 C 91 H 18 118/80 98 Room Air 08/13/25 00:13 Room Air 08/12/25 23:09 37.0 C 88 16 112/74 99 Room Air
--- NOTE | 2025-08-13 09:33 | Pharmacy Report ---
Pharmacy Glycemic Short Note 2 - Date of Service August 13, 2025 - Glycemic Short BSG Results (Last 24 hours): 08/12/25 08/12/25 08/12/25 11:41 16:18 20:17 POC Glucose 134 H 168 H 190 H 08/13/25 08:04 POC Glucose 201 H OUTPATIENT ANTIDIABETIC REGIMEN: * Jardiance 10 mg daily, Lantus 20 units daily, Humalog 6 units tidm + SSI HbA1C: 11.1% ASSESSMENT: 08/13: * Patient received total of 56 units of insulin yesterday, of which 24 units were basal insulin. Blood sugars improved with tighter NovoLog parameters at BF only. * Fasting BSG 201 mg/dL - unfortunately cannot consider increasing basal at this time, as patient has been requesting popsicles and OJ at times, even when BSG in 200s, which is not covered. If he does not consume these, blood sugars at goal (as they were for half of the day yesterday). Plan to do our best to keep his blood sugars controlled but prevent hypoglycemia. 08/11: * Patient received total of 50 units of insulin yesterday, of which 24 units were basal insulin * Fasting BSG 193 mg/dL - may consider increasing basal slightly tomorrow if still >180 * Will trial novolog with tighter parameters at breakfast and looser rest of day 08/08: * Patient received total of 40 units of insulin yesterday, of which 20 units were basal * Fasting BSG 194 mg/dL - will plan to titrate up basal further tomorrow AM * Will adjust CF/CR slightly 08/06: * BSGs [phone]/dL since last evening. Received 43 units of SQ bolus insulin yesterday and 20 units of basal insulin early this AM. * Gap remained closed this AM - continue SQ basal/bolus. Diet ordered. * Continue Lantus 20 units SQ daily for now. Novolog tightened at lunch. 08/05: * 45 year old transferred from OSH with DKA. PMHx significant for DM2, gastroparesis, CHF, GERD. Per provider, K at outside hospital was only 2.3 - insulin drip held upon transfer. Did not receive any potassium replacement prior to transfer. Discussed with provider and plan to hold insulin infusion until K level increases, ideally K>3.3 before starting insulin infusion. Awaiting repeat labs. IV KCL ordered. * BSG >500 mg/dL - will initiate SQ insulin ~0.2 units/kg x 1 and recheck blood sugar again in 2 hours to reassess. PLAN FOR INPATIENT GLYCEMIC CONTROL: * Hold outpatient oral diabetes medications * Basal insulin * Lantus 24 units SQ daily * Bolus insulin * Novolog per scale ACHS Goal Range: Low 110 mg/dL - High 140 mg/dL Correction Factor: 30 mg/dL/unit, carb ratio: 11 gm/unit (*breakfast correction factor 20 / carb ratio of 7)
--- NOTE | 2025-08-13 11:42 | Discharge Summary ---
Date of Service August 13, 2025 Admission HPI Per Admitting Provider 45 yo M with PMHx of afib with RVR, hx of DKA, BONILLA, T2DM, alcohol abuse, GERD, HTN who presents to the hospital due to hyperglycemia and weakness. Patient is a difficult historian but reports weakness, vomiting, and overall body pain x 3 days. He is accompanied by his aunt who assists with history. Patient states his weakness, vomiting, and generalized pain worsened today which prompted him to call EMS. He was taken to [facility] and then eventually transferred to [facility]. Patient uses marijuana frequently and has been hospitalized for cannabinoid hyperemesis syndrome previously. Drinks alcohol 3-5 times per week, denies recent use. Admission Exam Per Admitting Provider GENERAL: Apathetic, slightly irate, obese, no respiratory distress SKIN: Normal color, warm HEENT: [place] palpebral conjunctivae, no ptosis, dry buccal mucosa NECK : Supple, no tenderness CHEST : CTA, no tenderness HEART : RRR, no obvious murmurs ABDOMEN: Some distention, minimal epigastric tenderness EXTREMITIES : Minimal LE swelling without tenderness, no other conspicuous deformities noted NEUROLOGIC : Coherent, no facial asymmetry, gait and stance not assessed Principal Diagnosis Diabetic ketoacidosis Hypokalemia Hypophosphatemia Hypomagnesemia Acute metabolic encephalopathy Supratherapeutic INR--Resolved Iron deficiency anemia Small right renal cyst Mild splenomegaly Non Compliance Discharge Data Allergies Allergy/AdvReac Type Severity Reaction Status Date / Time Sulfa (Sulfonamide Allergy Intermediate ITCHY/HOT Verified 07/14/25 19:07 Antibiotics) metformin AdvReac Intermediate Diarrhea Verified 07/14/25 19:07 semaglutide [From Ozempic] AdvReac Intermediate Hallucinati Verified 07/14/25 19:07 ng morphine AdvReac Mild Nausea Verified 07/14/25 19:07 Consultations 08/05/25 13:47 Consult Waste Management Engineer Routine Procedures Performed Laboratory Results WBC 5.64 K/ul (4.8-10.8) 08/09/25 05:35 RBC 3.39 M/uL (4.70-6.10) L 08/09/25 05:35 Hgb 9.8 g/dl (14.0-18.0) L 08/09/25 05:35 Hct 28.5 % (42.0-52.0) L 08/09/25 05:35 MCV 84.1 fL (80.0-100.0) 08/09/25 05:35 MCH 28.9 pg (25.0-34.0) 08/09/25 05:35 MCHC 34.4 g/dL (32.0-36.0) 08/09/25 05:35 RDW Std Deviation 36.6 fL (36.4-46.3) 08/09/25 05:35 RDW Coeff of Trevon 11.9 % (11.5-14.5) 08/09/25 05:35 Plt Count 173 K/uL (130-400) 08/09/25 05:35 MPV 11.7 fL (9.4-12.4) 08/09/25 05:35 Immature Gran % (Auto) 0.6 % 08/06/25 04:50 Neut % (Auto) 82.5 % 08/06/25 04:50 Lymph % (Auto) 9.5 % 08/06/25 04:50 [place] % (Auto) 6.9 % 08/06/25 04:50 Eos % (Auto) 0.4 % 08/06/25 04:50 Baso % (Auto) 0.1 % 08/06/25 04:50 Neut # (Auto) 9.25 K/uL (1.40-6.50) H 08/06/25 04:50 Lymph # (Auto) 1.07 K/uL (1.20-3.40) L 08/06/25 04:50 [place] # (Auto) 0.78 K/uL (0.11-0.59) H 08/06/25 04:50 Eos # (Auto) 0.05 K/uL (0.00-0.50) 08/06/25 04:50 Baso # (Auto) 0.01 K/uL (0.00-0.20) 08/06/25 04:50 Immature Gran # (Auto) 0.07 K/uL (0.01-0.20) 08/06/25 04:50 Absolute Nucleated RBC 0.02 K/uL (0.00-0.12) 08/09/25 05:35 Nucleated RBC % (auto) 0.4 % 08/09/25 05:35 PT 23.3 Seconds (9.0-12.0) H 08/13/25 07:40 INR 2.3 (0.9-1.1) H 08/13/25 07:40 VBG pH 7.42 (7.36-7.41) H 08/09/25 05:42 Sodium 139 mmol/L (136-145) 08/12/25 06:09 Potassium 4.5 mmol/L (3.5-5.1) D 08/12/25 06:09 Chloride 107 mmol/L (98-107) 08/12/25 06:09 Carbon Dioxide 27 mmol/L (21-32) 08/12/25 06:09 Anion Gap 5 (3-11) 08/12/25 06:09 BUN 8 mg/dl (6-23) 08/12/25 06:09 Creatinine 0.74 mg/dl (0.6-1.4) 08/12/25 06:09 Est Cr Clr Drug Dosing 120.2 ml/min 08/12/25 06:09 eGFR 113.17 08/12/25 06:09 BUN/Creatinine Ratio 10.8 (10-20) 08/12/25 06:09 Glucose 271 mg/dl (70-99(Fasting)) H 08/12/25 06:09 POC Glucose 201 mg/dl (70-99) H 08/13/25 08:04 Estimat Average Glucose 272 mg/dl 08/05/25 15:45 Hemoglobin A1c 11.1 % (4.5-5.6) H 08/05/25 15:45 Lactate 2.0 mmol/L (0.4-2.0) 08/05/25 15:45 Calcium 8.5 mg/dl (8.6-10.3) L 08/12/25 06:09 Phosphorus 3.5 mg/dl (2.5-4.9) 08/09/25 05:35 Magnesium 1.8 mg/dl (1.7-2.4) 08/12/25 06:09 Iron 11 mcg/dl (35-175) L 08/09/25 05:35 Unsaturated IBC 155 mcg/dl (155-355) 08/09/25 05:35 Transferrin 128 mg/dl (200-360) L 08/09/25 05:35 Ferritin 174.8 ng/ml (8-388) 08/09/25 05:35 Troponin I High Sens 42.5 pg/ml (0-20) H 08/06/25 04:50 Triglycerides 211 mg/dl (0-150) H 08/06/25 04:50 Cholesterol 131 mg/dl (0-200) 08/06/25 04:50 LDL Cholesterol, Calc 53 mg/dl 08/06/25 04:50 VLDL Cholesterol, Calc 42 mg/dl (0-30) H 08/06/25 04:50 HDL Cholesterol 36 mg/dl 08/06/25 04:50 Cholesterol/HDL Ratio 3.6 (0-5) 08/06/25 04:50 Amylase 38 U/L (25-115) 08/05/25 13:05 Lipase 55 U/L (11-82) 08/05/25 13:05 Vitamin B12 557 pg/ml (180-914) 08/09/25 05:35 Folate 12.62 ng/ml (>5.38) 08/09/25 05:35 Procalcitonin 0.42 ng/ml (0-0.5) 08/05/25 13:05 Nasal Screen MRSA (PCR) Negative (Negative) 08/05/25 12:27 Hospital Course (1) Hypokalemia: (2) Lactic acid acidosis: (3) Diabetic keto-acidosis: Plan Diabetic ketoacidosis H/O DM II Lactic acidosis likely due to above Acute kidney injury--resolved Dehydration Noncompliance HbA1c 11.1 Continue insulin per protocol Appreciate critical care help Medication compliance counseling Glycemic pharmacist, chemical tank worker consulted Continue insulin per protocol Received IV fluid Plan to discharge to rehab facility today Generalized weakness Physical deconditioning PT OT, fall precaution PT recommends rehab Hypokalemia Hypophosphatemia Hypomagnesemia Replace and monitor Acute metabolic encephalopathy--resolved Likely due to DKA ? due to THC/Alcohol use --CT head:Unremarkable noncontrast CT of the brain Mental status back to baseline Monitor Supratherapeutic INR--Resolved No acute bleeding issues Monitor INR Atrial flutter H/O PE --continue metoprolol INR 2.3 today Continue Coumadin 3 mg daily Monitor INR Iron deficiency anemia Received IV Venofer X 2 doses Started on oral iron supplements Suspected alcohol withdrawal On gabapentin protocol Continue thiamine Monitor Abnormal blood cultures--likely contamination 1/4 blood cultures from prior hospital grew coagulase-negative staph Blood cultures: Negative to date IV Rocephin discontinued Small right renal cyst Mild splenomegaly Incidental findings on CT abdomen --CT ABD:No sign of appendicitis. Small umbilical hernia containing only fat. Small right renal cyst . 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 Other chronic conditions: History of systolic heart failure Hyperlipidemia Gastroparesis Mood disorder Continue home medications as able DVT Px: Coumadin CODE STATUS Full code Disposition Rehab Total Time Total Time Spent Total Time Spent (In Minutes): 42 minutes Discharge Plan Discharge Items Patient Disposition: Transfer [facility] Fac Reason For Visit: DK Discharge Diagnosis: Diabetic ketoacidosis Hypokalemia Hypophosphatemia Hypomagnesemia Acute metabolic encephalopathy Supratherapeutic INR--Resolved Iron deficiency anemia Small right renal cyst Mild splenomegaly Non Compliance Activity: Per Instructions section Exercise/Sports: Gradually increase as tolerated Non-emergency contact: Primary Care Provider Call non-emergency contact if: you have any medication questions, your symptoms worsen, your pain is concerning for you and you have a fever Follow-up/Referrals: PCP,NO [Primary Care Provider] - Diet: Carb Consistent or DM2 Addtl Attending Provider Instructions: --Follow up with your Primary Care physician in 1 week --Follow up with [facility] for monitoring your PT/INR and adjusting Coumadin dose as recommended Your INR is 2.3 on 08/13/25. --Get Blood work (PT/INR) in 2 days and follow up with your physician for your coumadin dosing -- You are incidentally noted to have right renal cyst and mild splenomegaly on CT scan. Follow-up with your physician for further recommendations. -- Quit drinking alcohol and quit using THC Seek immediate medical attention if your symptoms reoccur or worsen Please review medication list provided on discharge for any medication changes as instructed. Please call if you have any questions or problems. You can reach a [facility] hospitalist on duty at [facility] 24 hours a day by calling [phone] Addtl Heel Painter Provider Instructions: DIABETES RECOMMENDATIONS: 1.) Sick Day Guidelines. Follow sick day guidelines when ill/not feeling well. o Do not hold Lantus. Even when you are not eating, it is very important that you continue to take your Lantus to cover the sugar (glucose) your body makes. o Check blood sugar and ketones every 4 hours. o Give Novolog coverage every 4 hours according to food intake, blood sugar levels and positive ketones to cover for increased insulin demand. Small Ketones: + 2 units Moderate Ketones: + 4 units Large Ketones: +8 units o Try to stay hydrated. Try to take small sips of liquid every 15 minutes. If blood sugar is above 250, try to take small sips of low-calorie liquids including diet gingerale, Gatorade Zero, hot tea) If blood sugar is below 250, try to take small sips of sugar containing liquids including regular gingerale, regular Gatorade, hot tea with sugar) 2.) Diabetes Medications. Lantus. o Lantus is a 24-hour/background insulin that helps cover the sugar (glucose) that your body makes. o It does not need to be taken with food. o Because your body is always making sugar (glucose), it is very important that you take you Lantus every day. o When you are sick and not feeling well, your body usually makes more sugar. And, without the Lantus, you will quickly go into diabetic ketoacidosis. Novolog. o Novolog is a rapid-acting insulin that lasts for 3-4 hours in most people. o It helps cover the spike you get in your blood sugar after eating meals/carbs. o It can also help improve blood sugar levels when above target. o Try to take your Novolog 5-10 minutes before all your meals. Pending Studies at Discharge: No Stand-Alone Forms: My [facility] Skilled Items Patient informed of condition?: Yes DNR: No Discharge Level of Care: Skilled Communicable Disease: No Discharge Prognosis: Stable Lines: None Urinary Catheter: No Medications and DC Order Prescriptions: New thiamine HCl (vitamin B1) 100 mg Tablet 100 mg PO QAM Qty: 30 0RF pantoprazole 40 mg Tablet,Delayed Release (Dr/Ec) 40 mg PO DAILY Qty: 30 0RF ferrous sulfate 325 mg (65 mg iron) Tablet,Delayed Release (Dr/Ec) 325 mg PO BIDM Qty: 60 0RF multivitamin with folic acid [Daily-[place] (with folic acid)] 400 mcg Tablet 1 tab PO QAM Qty: 30 0RF Continued spironolactone 25 mg tablet 25 mg PO DAILY metoprolol succinate 50 mg tablet extended release 24 hr 75 mg PO QAM Rx Instructions: PER PT "RAN OUT OF MEDICATION" gabapentin 300 mg capsule 300 mg PO TID metoclopramide HCl 10 mg tablet 10 mg PO TID Rx Instructions: PER PT "RAN OUT OF MEDICATION" ORDERED TID BUT ONLY TAKES DAILY ezetimibe 10 mg tablet 10 mg PO QAM fenofibrate nanocrystallized 145 mg tablet 145 mg PO QAM Rx Instructions: PER PT "RAN OUT OF MEDICATION" insulin glargine [Lantus Solostar U-100 Insulin] 100 unit/mL (3 mL) insulin pen 20 unit SUBCUT QAM warfarin 3 mg Tablet 3 mg PO .DAILY @1600 Rx Instructions: UNABLE TO VERIFY ON EXT MED HX. ergocalciferol (vitamin D2) [Vitamin D2] 1,250 mcg (50,000 unit) Capsule 1,250 mcg PO WK ondansetron 4 mg Tablet,Disintegrating 4 mg PO Q8H PRN (Reason: NAUSEA/VOMITING) insulin lispro [Humalog KwikPen Insulin] 100 unit/mL Insulin Pen 6 unit SUBCUT TIDM Rx Instructions: PLUS SLIDING SCALE magnesium oxide 400 mg magnesium Tablet 400 mg PO DAILY Rx Instructions: PER PT "RAN OUT OF MEDICATION" Discharge Orders: Discharge Order (Routine); Ordered 08/13/25 Ordered By: Fernando Negrete Admission Data Admit Date/Time: 08/05/25 12:25 Attending Provider: Fernando Negrete Admit Provider: Shahab Goncalves Primary Care Provider: PCP,NO Other Providers: Lakshmi [place] Other Interventions: Discharge Summary Assessment (RN) Last Done: 08/13/25 10:27
== END 2025-08-13 10:54 | DRG 637 ==
LOC: 1E 10:54 → SUATTDRO 10:54 → 2S 08-06 17:24 → 3N 08-10 14:56